=== PATIENT | female | born 1955 | race Caucasian/White ===

== ENCOUNTER 2023-06-04 11:20 | Outpatient (OUT) | payer MEDICARE, OTHER, SELFPAY ==
--- NOTE | 2023-06-04 11:22 | MM_ITS ---
Patient: GINNY CESPEDES Exam Date: 06/04/2023 : 1955 Gender:F Ordering : DR HONORIO COLON Admission #: [id number] Family : Order #: [id number] CLICK HERE TO VIEW EXAM RADIOLOGY REPORT PROCEDURE: MM TOMOSYNTHESIS SCREENING BI COMPARISON: [facility] MAMM DIAGNOSTIC 3D TAMMY CAD, 05/29/2022. MG MAMM DIAGNOSTIC 3D TAMMY CAD, 05/26/2021. MG MAMM RT DIAG W CAD, 05/20/2020. MG MAMM SCREEN TAMMY W CAD, 10/09/2017. INDICATIONS: Screening Calculator Name NCI Breast Cancer Risk Assessment Tool 5 Year Breast Cancer Risk n/a% Lifetime Breast Cancer Risk n/a% Personal Breast Cancer Yes, DCIS right breast with radiation 2019 Personal Ovarian Cancer No Treatments Radiation Family Cancers Mother with breast cancer at age 59; Sister with colon cancer at age ~54. LOCATION: [facility] BREAST COMPOSITION: Extremely dense, which lowers the sensitivity of mammography. FINDINGS: DIAGNOSTIC CATEGORY 2--BENIGN FINDING: RIGHT BREAST: No significant suspicious finding. Stable biopsy marker clip posterior upper inner quadrant. No significant change has occurred. LEFT BREAST: No significant suspicious finding. No significant change has occurred. RECOMMENDATIONS: ROUTINE MAMMOGRAM AND CLINICAL EVALUATION IN 12 MONTHS. PLEASE NOTE: A NORMAL MAMMOGRAM DOES NOT EXCLUDE THE POSSIBILITY OF BREAST CANCER. A CLINICALLY SUSPICIOUS PALPABLE LUMP SHOULD BE BIOPSIED. Dictated by: Bill Godoy M.D. on 06/06/2023 at 08:22 Approved by: Bill Godoy M.D. on 06/06/2023 at 08:25
== END 2023-06-04 11:21 | disposition home or self-care (01) ==
LOC: MAMMO 11:20
PROVIDERS: PCP Physician Assistant; Visit Provider Physician Assistant
DX: Z12.31 Encounter for screening mammogram for malignant neoplasm of breast (principal); Z80.3 Family history of malignant neoplasm of breast; Z80.0 Family history of malignant neoplasm of digestive organs
CPT/HCPCS: 77063; 77067

== ENCOUNTER 2023-08-22 10:04 | Outpatient (REF) | payer MEDICARE, OTHER, SELFPAY ==
[2023-08-22 11:13] LABS: Adenovirus NOT DETECTED (NOT DETECTE); Bordetella parapertussis NOT DETECTED (NOT DETECTE); Coronavirus 229E NOT DETECTED (NOT DETECTE); Coronavirus HKU1 NOT DETECTED (NOT DETECTE); Coronavirus NL63 NOT DETECTED (NOT DETECTE); Coronavirus OC43 NOT DETECTED (NOT DETECTE); Human Metapneumovirus NOT DETECTED (NOT DETECTE); Human Rhinovirus/Enterovirus NOT DETECTED (NOT DETECTE); Influenza A NOT DETECTED (NOT DETECTE); Influenza B NOT DETECTED (NOT DETECTE); Mycoplasma pneumoniae NOT DETECTED (NOT DETECTE); Parainfluenza Virus 1 NOT DETECTED (NOT DETECTE); Parainfluenza Virus 2 NOT DETECTED (NOT DETECTE); Parainfluenza Virus 3 NOT DETECTED (NOT DETECTE); Parainfluenza Virus 4 NOT DETECTED (NOT DETECTE); Respiratory Syncytial Virus NOT DETECTED (NOT DETECTE); SARS-CoV-2 NOT DETECTED (NOT DETECTE)
== END 2023-08-22 10:05 | disposition home or self-care (01) ==
LOC: LAB 10:04
PROVIDERS: PCP Physician Assistant; Visit Provider Nurse Practitioner Family
DX: R05.9 Cough, unspecified (principal)
CPT/HCPCS: 0202U

== ENCOUNTER 2023-12-02 09:53 | Outpatient (OUT) | payer MEDICARE, OTHER, SELFPAY ==
--- NOTE | 2023-12-02 10:01 | CT_ITS ---
[address] [address] Patient Name: GINNY CESPEDES MRN: [id number] date: 1955 Sex: F Assigned Patient Location: CT Current Patient Location: CT Accession/Order Number: [id number] Exam Date: 12/02/2023 10:06 Report Date: 12/02/2023 10:56 At the request of: HONORIO ROJAS Procedure: CT lung screening low-dose EXAMINATION: CT lung screening low-dose HISTORY: Tobacco Dependance F17.200 COMPARISON: CT lung cancer screening 11/30/2022 TECHNIQUE: Axial, Coronal, and Sagittal images were created without the administration of IV contrast material. Dose reduction techniques were achieved by using automated exposure control and/or adjustment of mA and/or kV according to patient size and/or use of iterative reconstruction technique. FINDINGS: LUNGS: Stable appearance of the few small calcified and noncalcified nodules within the right lung and adjacent the pleural surface of the lateral left midlung. No new nodules or appreciable change. PLEURA: No mass, effusion, or pneumothorax. VASCULATURE: No abnormality. AKHIL: Calcified lymph nodes suggestive of chronic granulomatous disease. MEDIASTINUM: Calcified lymph nodes. CARDIAC: No enlargement, pericardial thickening, or pericardial effusion. AORTA: No aneurysm or dissection. CHEST WALL: Stable prominent thyroid gland. No axillary lymphadenopathy. BONES: No bone lesion or fracture. LIMITED ABDOMEN: No suspicious findings. Limited images of the upper abdomen. OTHER: Negative. CT/CT lung screening low-dose IMPRESSION: 1. Lung-RADS 2- Benign Appearance or Behavior. Nodules with a very low likelihood of becoming a clinically active cancer due to size or lack of growth. Follow-up CT Chest in 1 year. Electronically authenticated by: CHAPARRO ECKERT Date: 12/02/2023 10:56
--- NOTE | 2023-12-02 10:02 | XR_ITS ---
[address] [address] Patient Name: GINNY CESPEDES MRN: [id number] date: 1955 Sex: F Assigned Patient Location: CT Current Patient Location: CT Accession/Order Number: [id number] Exam Date: 12/02/2023 10:10 Report Date: 12/02/2023 10:50 At the request of: HONORIO ROJAS Procedure: XR DEXA axial skeleton EXAMINATION: XR DEXA axial skeleton HISTORY: Estrogen Deficiency, E 28.39 COMPARISON: DEXA bone densitometry 10/24/2021 TECHNIQUE: Dual-energy X-ray absorptiometry (DXA) was performed. FINDINGS: FOREARM ANALYSIS: Average bone mineral density is 0.553 g/cm2. T-score (standard deviation relative to young adult mean): -2.3 . +1.4% change since prior study. HIP ANALYSIS: Lowest bone mineral density is within the left femoral neck, 0.701 g/cm2. T-score (standard deviation relative to young adult mean): -2.4 . +0.1% change since prior study. XR/XR DEXA axial skeleton IMPRESSION: [employer] Classification: Osteopenia - Moderate Fracture Risk Electronically authenticated by: CHAPARRO ECKERT Date: 12/02/2023 10:50
--- OUTSIDE RECORDS SUMMARY | 2023-12-02 10:06 | XMS_ITS | CCD ---
Author Organization [facility] Care Team Providers Care Transportation [employer]istics Internship Name Role Phone NURYS BOGGS Primary Care Physician KIMBERLEY HAMEED Admitting Unavailable SALAM, KIMBERLEY Attending Unavailable AMBROSE, DR NUNO Primary Care Unavailable WEST, DR ALEXANDRO Riddle Consulting Unavailable SALAM, KIMBERLEY Consulting Unavailable AMBROSE, DR NUNO Admitting Unavailable AMBROSE, DR NUNO Attending Unavailable AMBROSE, DR NUNO Primary Care Unavailable AMBROSE, DR NUNO Consulting Unavailable Zieber, Chaparro Consulting Unavailable HEMMER, DR HONORIO Shaikh Admitting Unavailable HEMMER, DR HONORIO Shaikh Attending Unavailable AMBROSE, DR NUNO Primary Care Unavailable WEST, DR ALEXANDRO Riddle Consulting Unavailable HEMMER, DR HONORIO Shaikh Consulting Unavailable HEMMER, DR HONORIO Shaikh Admitting Unavailable HEMMER, DR HONORIO Shaikh Attending Unavailable AMBROSE, DR NUNO Primary Care Unavailable HEMMER, DR HONORIO Shaikh Consulting Unavailable HEMMER, DR HONORIO Shaikh Admitting Unavailable HEMMER, DR HONORIO Shaikh Attending Unavailable AMBROSE, DR NUNO Primary Care Unavailable ZiebChaparro branch Consulting Unavailable HEMMER, DR HONORIO Shaikh Consulting Unavailable Yvonne Mcghee Unavailable Nurys Boggs Primary Care Provider Nurys Boggs Unavailable [phone] Nurys Boggs MD Primary Care Provider Nurys Boggs MD Unavailable [phone] NURYS BOGGS Attending Unavailable HEMMER, HONORIO Shaikh Attending Unavailable HEMMER, HONORIO Shaikh Attending Unavailable Nurys Boggs Primary Care Unavailable Beverley Ngo Attending Unavailable Beverley Ngo Admitting Unavailable Rosa Shearer Attending Unavailable Rosa Shearer Attending Unavailable Olu, Rosa A Attending Unavailable Olu, Rosa A Attending Unavailable Olu, Rosa A Attending Unavailable Olu, Rosa A Attending Unavailable SALAM, Chu Referring Unavailable SALAM, Chu Attending Unavailable SALAM, Chu Admitting Unavailable Olu, Rosa A Admitting Unavailable Olu, Rosa A Attending Unavailable Olu, Rosa A Admitting Unavailable Olu, Rosa A Attending Unavailable Jessie, Rimma J Admitting Unavailable Jessie, Rimma J Attending Unavailable Olu, Rosa A Attending Unavailable Olu, Rosa A Admitting Unavailable Olu, Rsoa A Referring Unavailable Olu, Rosa A Attending Unavailable Olu, Rosa A Attending Unavailable Olu, Rosa A Attending Unavailable AMBROSE, RUGEN MABALAY Primary Care Unavailable ABHYANKAR, MAIKEL Attending Unavailable OLU, ROSA Referring Unavailable AMBROSE, RUGEN MABALAY Primary Care Unavailable ABHYANKAR, MAIKEL Referring Unavailable AMBROSE, RUGEN MABALAY Primary Care Unavailable ABHYANKAR, MAIKEL Referring Unavailable AMBROSE, RUGEN MABALAY Primary Care Unavailable ABHYANKAR, MAIKEL Attending Unavailable ABHYANKAR, MAIKEL Referring Unavailable AMBROSE, RUGEN MABALAY Primary Care Unavailable AMBROSE, RUGEN MABALAY Primary Care Unavailable ABHYANKAR, MAIKEL Referring Unavailable AMBROSE, RUGEN MABALAY Primary Care Unavailable ABHYANKAR, MAIKEL Attending Unavailable AMBROSE, RUGEN MABALAY Primary Care Unavailable ABHYANKAR, MAIKEL Referring Unavailable AMBROSE, RUGEN MABALAY Primary Care Unavailable AMBROSE, RUGEN MABALAY Primary Care Unavailable ABHYANKAR, MAIKEL Referring Unavailable AMBROSE, RUGEN MABALAY Primary Care Unavailable AMBROSE, RUGEN MABALAY Primary Care Unavailable AMBROSE, RUGEN MABALAY Primary Care Unavailable AMBROSE, RUGEN MABALAY Primary Care Unavailable ABHYANKAR, MAIKEL Referring Unavailable AMBROSE, RUGEN MABALAY Primary Care Unavailable ABHYANKAR, MAIKEL Referring Unavailable AMBROSE, RUGEN MABALAY Primary Care Unavailable AMBROSE, RUGEN MABALAY Primary Care Unavailable ABHYANKAR, MAIKEL Referring Unavailable JYOTI SHELTON Attending Unavailabl e Allergies Allergy Classification Reported Allergen(s) Allergy Type Date of Onset Reaction(s) Facility (19 sources) Barium Sulfate; Translations: [barium sulfate] Drug Allergy Nausea and vomiting (disorder) [facility] (20 sources) buPROPion; Translations: [bupropion] Drug Allergy 5 Shortness of Breath [facility] (3 sources) buPROPion; Translations: [Wellbutrin] Drug Allergy 5 Unknown [facility] (1 source) buPROPion Drug Allergy 5 [facility] (15 sources) buPROPion; Translations: [BUPROPION HCL (SMOKING DETER)] Drug Allergy 9 Shortness of Breath [facility] (1 source) buPROPion Drug Allergy 3 [facility] Medications Current Medications Medication Drug Class(es) Dates Sig (Normalized) Sig (Original) amylase 649733 unt / lipase 68338 unt / protease 24254 unt delayed release oral capsule (12 sources) Start: 02-22-2023 End: 05-23-2023 take 1 capsule by mouth three times daily at mealtime Creon 24,000 units oral delayed release capsule = 1 cap(s), Oral, TID, with each meal., X 90 day(s), # 270 cap(s), Refills(s) 0, Pharmacy: [facility]/pharmacy #[id number], 152, cm, 02/22/23 12:18:00 EDT, Height/Length Dosing, 53.9, kg, 02/22/23 12:18:00 EDT, Weight Dosing Start Date: 02/22/23 Stop Date: 05/23/23 Status: Ordered Start: 11-22-2022 Creon Refills( s) 0 Start Date: 11/22/22 Status: Ordered Ascorbic Acid (18 sources) Vitamin C Start: 04-25-2021 Vitamin C Ye y, Refills(s) 0 Start Date: 04/25/21 Status: Ordered Align (5 sources) Start: 06-26-2023 Align Refills( s) 0 Start Date: 06/26/23 Status: Ordered Start: 03-26-2023 End: 06-24-2023 take 1 capsule by mouth once daily Align 4 mg oral capsule 4 mg = 1 cap(s), Oral, Daily, X 90 day(s), # 90 cap(s), Refills(s) 0, Pharmacy: [facility]/pharmacy #[id number], 152, cm, 03/26/23 12:48:00 EDT, Height/Length Dosing, 53.4, kg, 03/26/23 12:48:00 EDT, Weight Dosing Start Date: 03/26/23 Stop Date: 06/24/23 Status: Ordered Bruce/Mag 2001 Plus Vitamins C and D (18 sources) Start: 08-16-2020 Bruce/Mag 2000 P isidoro Vitamins C and D Start Date: 08/16/20 Status: Ordered Calcium (1 source) Phosphate Binder, Calcium Calcium Active Fiber Tab (4 sources) Start: 06-26-2023 Fiber Tabs Refills(s) 0 Start Date: 06/26/23 Status: Ordered cephalexin 500 mg oral capsule (2 sources) Cephalosporin Antibacterial Start: 01-25-2023 take 1 capsule by mouth every eight hours Cephalexin 500 MG 1 capsule Orally every 8 hrs for 7 days Jan, Active take [address] [facility] every twelve hours Cephalexin 500 MG 1 capsule Orally every 12 hrs Not-Taking chlordiazePOXIDE hydrochloride 5 mg / clidinium bromide 2.5 mg oral capsule (11 sources) Anticholinergic, Benzodiazepine Start: 01-25-2022 Librax 5 mg-2.5 mg Cap 2 cap(s), Oral, TIDAC, 60 cap(s), Refill(s) 3, [facility]/pharmacy #[id number], 152, cm, 01/25/22 13:43:00 EDT, Height/Length Dosing, 54, kg, 01/25/22 13:43:00 EDT, Weight Dosing Start Date: 01/25/22 Status: Ordered cholestyramine resin 4000 mg powder for oral suspension (14 sources) Bile Acid Sequestrant Start: 10-11-2023 cholesty ramine 4 g/9 g Oral Pwdr Refill(s) 0 Start Date: 10/11/23 Status: Ordered Start: 06-26-2023 End: 09-24-2023 take 4 g by mouth once daily Questran 4 g/9 g oral pow gauri 4 gm, Oral, Daily, dissolve in water or juice, X 90 day(s), # 60 EA, Refills(s) 0, [id number] 152, cm, 06/26/23 12:45:00 EDT, Height/Length Dosing, 53.3, kg, 06/26/23 12:45:00 EDT, Weight Dosing Start Date: 06/26/23 Stop Date: 09/24/23 Status: Ordered Start: 06-19-2022 End: 12-16-2022 Questran 4 g/9 g oral powder 1/4 packet, Oral, Daily, X 90 day(s), # 60 EA, Refills(s) 1, [id number], 152, cm, 06/19/22 12:56:00 EDT, Height/Length Dosing, 53.5, kg, 06/19/22 12:56:00 EDT, Weight Dosing Start Date: 06/19/22 Stop Date: 12/16/22 Status: Ordered Start: 04-25-2021 Questran 4 g/9 g oral powder = 1 packet(s), Oral, Daily, # 30 EA, Refills(s) 11, [id number], 152, cm, 04/25/21 8:50:00 EDT, Height/Length Dosing, 52, kg, 04/25/21 8:50:00 EDT, Weight Dosing Start Date: 04/25/21 Status: Ordered Start: 04-25-2021 Questran 4 g/9 g oral powder = 1 packet(s), Oral, Daily, # 30 EA, Refills(s) 11, [id number], 152, cm, 04/25/21 8:50:00 EDT, Height/Length Dosing, 52, kg, 04/25/21 8:50:00 EDT, Weight Dosing Start Date: 04/25/21 Status: Ordered ciprofloxacin 500 mg oral tablet (1 source) Quinolone Antimicrobial Start: 04-17-2022 End: 04-27-2022 take 1 tablet by mouth twice daily Cipro 500 mg Tab 500 mg = 1 tab(s), Oral, BID, X 10 day(s), # 20 tab(s), Refills(s) 0, [id number], 152, cm, 04/17/22 12:23:00 EDT, Height/Length Dosing, 52.9, kg, 04/17/22 12:23:00 EDT, Weight Dosing Start Date: 04/17/22 Stop Date: 04/27/22 Status: Ordered dicyclomine hydrochloride 10 mg oral capsule (20 sources) Anticholinergic Start: 01-25-2022 End: 10-05-2023 take 1 mg by mouth four times daily dicyclomine 10 mg Cap mg cap(s), Oral, QID, Refills(s) 0 Start Date: 01/25/22 Status: Ordered Start: 03-13-2019 take 1 tablet by alpa th every eight hours Dicyclomine HCl 20 MG 1 tablet Orally THREE TIMES A DAY for 30 day(s) Feb, Not-Taking Extra Strength Tylenol Aches and Strains (18 sources) Start: 11-25-2018 take 1 tablet by mouth every six hours Extra Strength Tylenol Aches and Strains 1 tablet, Oral, q6hr Pain, Refill(s) 0 Start Date: 11/25/18 Status: Ordered 12 hr hyoscyamine sulfate 0.375 mg extended release oral tablet (7 sources) Start: 04-21-2019 take 1 mg by mouth every twelve hours hyoscyamine 0.375 mg ER Tab mg tab(s), Oral, q12hr, Refills(s) 0 Start Date: 01/25/22 Status: Ordered Multivitamin preparation (1 source) Multivitamin Act tino Patient Specific Meds (5 sources) Start: 03-26-2023 Patient Specif ic Meds OTC- Pancreatic digestive enzymes. Creon was too expensive. Start Date: 03/26/23 Status: Ordered sertraline 50 mg oral tablet (20 sources) Serotonin Reuptake Inhibitor Start: 11-17-2018 take 1 tablet by mouth at bedtime Zoloft 50 mg Tab 50 mg = 1 tab(s), Oral, Bedtime, Refills(s) 0, Depression Start Date: 11/17/18 Status: Ordered Comment on above: Take 50 mg by mouth once daily. Vitamin D3 (18 sources) Start: 04-25-2021 Vitamin D3 Refills(s) 0 Start Date: 04/25/21 Status: Ordered Completed/Discontinued Medications Medication Drug Class(es) Dates Sig (Normalized) Sig (Original) Calcium Carbonate (14 sources) calcium carbonat e (CALCIUM 500 ORAL) Take by mouth. 0 Active Comment on above: Take by mouth. cholecalciferol 0.025 mg oral capsule (14 sources) Vitamin D take 1 capsule by mouth once daily Cholecalciferol, Vitamin D3, (VITAMIN D) 1,000 unit cap Take 1,000 Units by mouth once daily. 0 Active Comment on above: Take 1,000 Units by mouth once daily. enzymes,digestive (DIGESTIVE ENZYMES ORAL) (14 sources) enzymes,digestiv e (DIGESTIVE ENZYMES ORAL) Take by mouth. 0 Active Comment on above: Take by mouth. levothyroxine sodium 0.05 mg oral tablet (20 sources) l-Thyroxine Start: 02-07-2023 levothyroxine (SYNTHROID) 50 mcg tablet Take 50 mcg by mouth once daily. 75mcg 2 days a week 0 02/07/2023 Active Start: 10-10-2022 take 1 tablet by alpa th once daily in the morning levothyroxine 50 mcg (0.05 mg) Tab TAKE 1 TABLET BY MOUTH ONCE EVERY MORNING ON AN EMPTY STOMACH Start Date: 10/10/22 Status: Ordered Levothyroxine So dium Active Comment on above: take 1 tablet by alpa th every day in the morning on empty stomach Take 50 mcg by mouth once daily. 75mcg 2 days a week loperamide hydrochloride 2 mg oral capsule (15 sources) Opioid Agonist Start: 04-04-2019 loperamide (IMODIUM) 2 mg cap(s) every other day. 2 04/04/2019 Active Start: 04-03-2019 take 1 tablet by alpa th once in the morning Loperamide HCl 2 MG 1 TAB Orally Q AM for 30 days Mar, Not-Taking Comment on above: every other day. meloxicam 15 mg oral tablet (1 source) Nonsteroidal Anti-inflammatory Drug Start: 1 take 1 tablet by mouth every twenty-four hours Meloxicam 15 MG 1 tablet Orally Once a day for 30 day(s) Jan, Not-Taking oxyCODONE hydrochloride 10 mg oral tablet (1 source) Opioid Agonist Start: 1 take 1 tablet by mouth every six hours oxyCODONE HCl 10 MG 1 tablet as needed Orally every 6 hrs for 14 days Nov, Not-Taking Triamcinolone (2 sources) Corticosteroid Start: KENALOG - 10 mg Mar, 40 mg Start: 01-24-2016 Kenalog -40 mg December, 40 mg Problems Active Problems Problem Classification Problem Date Documented Da te Episodic/Chronic Abdominal pain (20 sources) Lower abdominal pain; Translations: [Lower abdominal pain, unspecified] Onset: 01-24-2022 Episodic Administrative/social admission (18 sources) Seen by pain management service 11-25-2018 Episodic Comment on above: for back for back Anxiety disorders (18 sources) Anxiety 11-17-2018 Chronic Cancer of breast (20 sources) Carcinoma of breast ; Translations: [Malignant tumor of breast ] Onset: 06-11-2019 11-17-2018 Chronic Comment on above: right right Cardiac dysrhythmias (1 source) Tachycardia; Translations: [Tachycardia, unspecified] 07-31-2023 Episodic Chronic obstructive pulmonary disease and bronchiectasis (2 sources) Emphysematous bronchitis; Translations: [Chronic obstructive pulmonary disease, unspecified] Chronic Conditions associated with dizziness or vertigo (1 source) Dizziness and giddiness; Translations: [Dizziness and giddiness] Onset: 07-31-2023 Episodic Deficiency and other anemia (20 sources) Anemia; Translations: [Anemia, unspecified] Onset: 03-13-2023 03-13-2023 Episodic Deficiency and other anemia (20 sources) 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 B>12< deficiency; Translations: [Other megaloblastic anemias, not elsewhere classified] Onset: 03-13-2023 03-13-2023 Episodic Diverticulosis and diverticulitis (19 sources) Diverticular disease; Translations: [Diverticulosis of intestine, part unspecified, without perforation or abscess without bleeding] 05-25-2021 Chronic Genitourinary symptoms and ill-defined conditions (1 source) Microscopic hematuria; Translations: [Other microscopic hematuria] Episodic Hemorrhoids (18 sources) Internal hemorrhoids 05-25-2021 Episodic Intestinal infection (18 sources) Small bowel bacterial overgrowth syndrome 01-25-2022 Episodic Mood disorders (18 sources) Depressive disorder 11-17-2018 Chronic Nausea and vomiting (1 source) Nausea; Translations: [Nausea] Episodic Noninfectious gastroenteritis (15 sources) Noninfectious enteritis; Translations: [Noninfective gastroenteritis and colitis, unspecified] Onset: 06-19-2022 Episodic Nutritional deficiencies (13 sources) Vitamin B deficiency; Translations: [Deficiency of other specified B group vitamins] Onset: 11-22-2022 Episodic Osteoarthritis (18 sources) Arthritis 08-16-2020 Chronic Other and unspecified benign neoplasm (18 sources) Polyp of colon 05-25-2021 Episodic Other and unspecified benign neoplasm (20 sources) History of polyp of colon; Translations: [Personal history of colonic polyps] Onset: 06-19-2022 Episodic Other bone disease and musculoskeletal deformities (1 source) Arrest of bone development AND/OR growth; Translations: [Other disorders of bone development and growth, unspecified site] Episodic Other bone disease and musculoskeletal deformities (1 source) Osteopenia; Translations: [Other specified disorders of bone density and structure, multiple sites] Episodic Other gastrointestinal disorders (20 sources) Irritable bowel syndrome with diarrhea; Translations: [Irritable bowel syndrome with diarrhea] Onset: 01-25-2022 Chronic Other gastrointestinal disorders (7 sources) Intestinal malabsorption; Translations: [Other intestinal malabsorption] Onset: 01-25-2022 Chronic Other gastrointestinal disorders (1 source) Irritable bowel syndrome; Translations: [Irritable bowel syndrome without diarrhea] Chronic Other gastrointestinal disorders (2 sources) Disorder of intestine; Translations: [Other specified diseases of intestine] Onset: 01-25-2022 Episodic Other gastrointestinal disorders (18 sources) Non-infective diarrhea 05-25-2021 Episodic Other gastrointestinal disorders (1 source) Diarrhea; Translations: [Diarrhea, unspecified] Episodic Other gastrointestinal disorders (1 source) Urgent desire for stool; Translations: [Fecal urgency] Episodic Other gastrointestinal disorders (1 source) Abdominal bloating; Translations: [Abdominal distension (gaseous)] Episodic Other gastrointestinal disorders (2 sources) Abnormal feces; Translations: [Other fecal abnormalities] Onset: 02-22-2023 Episodic Other gastrointestinal disorders (7 sources) Loose stool 02-22-2023 Episodic Other liver diseases (20 sources) Steatosis of liver; Translations: [Fatty (change of) liver, not elsewhere classified] Onset: 04-13-2022 02-14-2022 Chronic Other liver diseases (1 source) Decreased lipoprotein; Translations: [Abnormal levels of other serum enzymes] Episodic Other lower respiratory disease (1 source) Multiple nodules of lung; Translations: [Other nonspecific abnormal finding of lung field] Episodic Other nervous system disorders (1 source) Chronic pain; Translations: [Other chronic pain] Chronic Other screening for suspected conditions (not mental disorders or infectious disease) (20 sources) Imaging of abdomen abnormal; Translations: [Abnormal findings on diagnostic imaging of other abdominal regions, including retroperitoneum] Onset: 01-25-2022 Episodic Residual codes; unclassified (18 sources) Family history of cancer of colon 05-25-2021 Episodic Residual codes; unclassified (7 sources) Family history of malignant neoplasm of digestive organ; Translations: [Family history of malignant neoplasm of digestive organs] Onset: 06-19-2022 Episodic Residual codes; unclassified (1 source) Postmenopausal state; Translations: [Asymptomatic menopausal state] Episodic Skin and subcutaneous tissue infections (1 source) Cellulitis of right finger Episodic Spondylosis; intervertebral disc disorders; other back problems (4 sources) Inflammation of sacroiliac joint; Translations: [Sacroiliitis, not elsewhere classified] Chronic Substance-related disorders (20 sources) Smoker; Translations: [Nicotine dependence, cigarettes, uncomplicated] Onset: 11-30-2022 08-16-2020 Chronic Comment on above: Added secondary to d ocumentation in Social History. Added secondary to d ocumentation in Social History. Thyroid disorders (9 sources) Nontoxic goiter, unspecified; Translations: [Hypothyroidism, unspecified] Onset: 07-14-2022 Chronic Unclassified (18 sources) Asymptomatic microscopic hematuria 08-16-2020 Unclassified (17 sources) Finding of sensation of abdomen 02-14-2022 Past or Other Problems Problem Classification Problem Date Documented Da te Episodic/Chronic Other skin disorders (1 source) Nonscarring hair loss, unspecified; Translations: [NONSCARRING HAIR LOSS UNSPECIFIED] Onset: 07-18-2022 Episodic Pancreatic disorders (not diabetes) (20 sources) Disorder of pancreas; Translations: [Other specified diseases of pancreas] Onset: 10-10-2022 Episodic Results Test Name Value Interpretation Reference Range Baldomero ABBOTTon 11-07-2023 CNNURSE Nurse Visit (HEMMAMI) ---- COYIVONNE A ([id number]) 1955 F Date Time Provider Department 11/07/23 2:30 PM [facility] NURSE ERVIN VILLASENOR During your visit today, we recorded the following information about you: Temperature Pulse Respiration Blood pressure 97.1 degrees 79/minute 18/minute 119/90 Pepe Yadav 11/07/2023 2:12 PM Signed Patient Identification confirmed: yes. Injection given and documented on OCT per provider order. Pepe Yadav Referring Provider: MAIKEL LUNSFORD [[id number]] Allergies As of Date: 11/07/2023 Noted Allergy Reaction BUPROPION 12/22/2004 12 - Shortness of Breath ZYBAN (BUPROPION HCL (SMOKING DET*11/07/2018 12 - Shortness of Breath Date Reviewed: 09/11/2023 Reviewed by: Desirae Sargent MA - Fully Assessed Reason for Visit: Anemia [6] Primary Visit Diagnosis:Anemia, unspecified type [D64.9] Other Visit Diagnosis:Megalobla stic anemia due to vitamin B12 deficiency [D53.1] Order(s):[] cyanocobalamin 1,000 mcg injectionDisp: Rfl: Prescriptions as of 11/07/2023 - levothyroxine (SYNTHROID) 50 mcg tablet Take 50 mcg by mouth once daily. 75mcg 2 days a week - enzymes,digestive (DIGESTIVE ENZYMES ORAL) Take by mouth. - loperamide (IMODIUM) 2 mg cap(s) every other day. - sertraline (ZOLOFT) 50 mg tablet Take 50 mg by mouth once daily. - calcium carbonate (CALCIUM 500 ORAL) Take by mouth. - Cholecalciferol, Vitamin D3, (VITAMIN D) 1,000 unit cap Take 1,000 Units by mouth once daily. 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 Injection given and documented on OCT per provider order. Pepe Yadav Prescriptions ordered this encounter Disp Refills Start End CYANOCOBALAMIN (VIT B-12) 1,000 MCG/* 11/07/2023 11/07/2023 Route: INTRAMUSCULA Encounter Status:Closed by MARY PEPE on 11/07/23 Normal [facility] Ambulatory Visit Summaryon 0 10-11-2023 Ambulatory Visit Summary IVONNE CESPEDES :1955 Visit Date:10/11/2023 Ambulatory Visit Instructions Your Diagnosis Bile salt-induced diarrhea Abdominal cramping Irritable bowel syndrome with diarrhea Fatty liver Vitamin B12 deficiency History of colon polyps Family history of colon cancer Your Care Team Attending Physician - Rosa Shearer CNP Primary Care Physician - NURYS BOGGS MD This Is Your Medications List Contact prescribing physician if questions or concerns Patient Specific Meds acetaminophen-chlor zoxazone (Extra Strength Tylenol Aches and Strains) ascorbic acid (Vitamin C) bifidobacterium infantis (Align) cholecalciferol (Vitamin D3) cholestyramine (cholestyramine 4 g/9 g Oral Pwdr) dicyclomine (dicyclomine 10 mg Cap) levothyroxine (levothyroxine 50 mcg (0.05 mg) Tab) multivitamin with minerals (Bruce/Mag 2001 Plus Vitamins C and D) pancrelipase (Creon) polycarbophil (Fiber Tabs) sertraline (Zoloft 50 mg Tab) Procedures Performed Colonoscopy (05/16/2021), BREAST BIOPSY (11/25/2018), Tubal ligation (1984), Biopsy of breast, Hysterectomy, Laparoscopic cholecystectomy. Discharge Vitals Temperature (Temporal Artery) 36.1 ?C Heart Rate (Peripheral) 79 Blood Pressure 132/87 Height 152 cm Height 60 in Weight 53.3 kg Weight 117.26 lb BMI 23.07 What to do next Scheduled Follow-Up Appointments Saturday 12:00 PM EDT With: Rosa Shearer CNP Where: [facility] Normal [facility] Gastroenterology Office/Clin ic Noteon 10-11-2023 Gastroenterology Office/Clinic Note Chief Complaint Cramping HPI Staff This is a 68 year old female who presents today for a follow-up from 07/26/23 office visit. History of Present Illness Patient is a 68-year-old female who presents for follow-up. Patient was previously evaluated 07/26/2023 and has history of low fecal pancreatic elastase testing 05/2022 that was low at 88. Patient also with history of fatty liver disease and IBS with diarrhea. Patient was previously evaluated and treated by Dr. Hameed also for pancreatic insufficiency with low fecal pancreatic elastase. Previous stool testing for fecal pancreatic elastase was normal 07/2023. Previous labs 10/2022 revealed normal H&H, normal BUN, normal creatinine, normal liver enzymes and normal vitamin A and E. B12 level was less than 50 10/2022. Repeat B12 level 01/2023 had improved at 144- was previously referred to hematology for possible IM B12 injections. Previous ultrasound of pelvis 09/2022 was negative. Previous colonoscopy in 2015 revealed suboptimal prep, diverticulosis, transverse colon polyp that pathology revealed was inflammatory reactive polyp and was to repeat colonoscopy in 1 year. Repeat colonoscopy 04/2021 revealed normal terminal ileum, diverticulosis, hemorrhoids, hyperplastic polyp removed from descending colon and was recommended to have repeat colonoscopy in 2025. Patient had previous CT 06/2021 that showed enlarged right retrocrural lymph node- to follow-up with PCP regarding, and no evidence of diverticulitis. Patient had repeat CT 01/2022 at [facility] that showed hepatomegaly and hepatic steatosis. Patient with family history colon cancer?patient's sister. Patient had previous FibroScan 03/2022 that revealed F0?F1 fibrosis, no steatosis. Previous FibroScan 02/2023 revealed mild steatosis, F0?F1 fibrosis. Patient reported during most recent visit with me that she was doing better and was taking 1/2 packet of Questran twice daily. She also reported taking Benefiber 1 teaspoon daily. She indicated with this regimen she was having formed bowel movements daily currently. She also reported her fecal urgency had improved as well as her abdominal cramping. During today's visit, patient reports she is no longer having fecal urgency. Is having primarily formed with Questran 1/2 packet BID. Has occasional loose stools consistency of mashed potatoes. Is having improvement in lower abdominal cramping. Abdominal cramping occurs prior to having a BM and improves after having a BM. Takes probiotics daily. Denies use of Bentyl and can not recall if this helped her abdominal cramping previously. Has tried IBguard without relief of abdominal cramping. Denies black/bloody stools, nausea/vomiting, fevers/chills, and denies having any other GI complaints. Review of Systems PHQ Score Initial Depression Screen Score: 0 SCORE ROS - Provider Constitutional: no fever, no chills. Skin: no Jaundice. ENMT: Denies dysphagia and heartburn. Respiratory: no shortness of breath. Cardiovascular: no chest pain. Gastrointestinal: no nausea, no vomiting, no diarrhea, no GI bleeding. Physical Exam Vitals & Measurements T: 36.1 ?C(Temporal Artery) HR: 79(Peripheral) BP: 132/87 HT: 60 in HT: 152 cm WT: 53.3 kg WT: 117.26 lb BMI: 23.07 General: Well developed, well nourished, in no acute distress Head: Normocephalic/atrau matic Lungs: Normal respiratory effort and clear to auscultation Cardio: Regular rate and rhythm, normal S1 and S2, no murmur, no rub Abdomen: Soft, non-distended, non-tender. Normoactive bowel sounds present in all 4 abdominal quadrants, bilaterally. Mental Status: Alert and oriented x3. Normal mood and affect Assessment/Plan 1. 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 Colonoscopy 04/2021 revealed normal terminal ileum, diverticulosis, hemorrhoids, hyperplastic polyp removed from descending colon and was recommended to have repeat colonoscopy in 2025. Educated to restart Benefiber fiber supplementation daily, continue Questran 1/2 packet BID. 2. Abdominal cramping (R10.9: Unspecified abdominal pain) Improved. Likely related to hx. of IBS with diarrhea. Educated to restart Benefiber fiber supplementation daily, continue probiotics daily. Discussed trying Levsin for abdominal cramping associated with IBS- would like to try fiber supplementation first. 3. Irritable bowel syndrome with diarrhea (K58.0: Irritable bowel syndrome with diarrhea) Improved. Likely related to hx. of IBS with diarrhea. Educated regarding use of fiber supplementation daily, probiotics daily, and use of IBguard PRN for abdominal cramping associated with IBS. 4. Fatty liver (K76.0: Fatty (change of) liver, not elsewhere classified) CT 01/2022 at [facility] showed hepatomegaly and hepatic steatosis. Previous FibroScan 03/2022 revealed F0?F1 fibrosis, no steatosis. Previous FibroScan 02/2023 revealed mild steatosis, F0?F1 fibrosis. (more content not included)... Normal [facility] Comment on above: Result Comment: Elec tronically Signed By: Rosa Shearer CNP\.nikhil\Date and Time Signed: 10/11/23 13:38 EST Patient Educationon 10-11-19 24 Patient Education Mental and Behavioral Health Fatty Liver Disease The liver converts food into energy, removes toxic material from the blood, makes important proteins, and absorbs necessary vitamins from food. Fatty liver disease occurs when too much fat has built up in your liver cells. Fatty liver disease is also called hepatic steatosis. In many cases, fatty liver disease does not cause symptoms or problems. It is often diagnosed when tests are being done for other reasons. However, over time, fatty liver can cause inflammation that may lead to more serious liver problems, such as scarring of the liver (cirrhosis) and liver failure. Fatty liver is associated with insulin resistance, increased body fat, high blood pressure (hypertension), and high cholesterol. These are features of metabolic syndrome and increase your risk for stroke, diabetes, and heart disease. What are the causes? This condition may be caused by components of metabolic syndrome: ? Obesity. ? Insulin resistance. ? High cholesterol. Other causes: ? Alcohol abuse. ? Poor nutrition. ? Kinsman syndrome. ? . ? Certain drugs. ? Poisons. ? Some viral infections. What increases the risk? You are more likely to develop this condition if you: ? Abuse alcohol. ? Are overweight. ? Have diabetes. ? Have hepatitis. ? Have a high triglyceride level. ? Are . What are the signs or symptoms? Fatty liver disease often does not cause symptoms. If symptoms do develop, they can include: ? Fatigue and weakness. ? Weight loss. ? Confusion. ? Nausea, vomiting, or abdominal pain. ? Yellowing of your skin and the white parts of your eyes (jaundice). ? Itchy skin. How is this diagnosed? This condition may be diagnosed by: ? A physical exam and your medical history. ? Blood tests. ? Imaging tests, such as an ultrasound, CT scan, or MRI. ? A liver biopsy. A small sample of liver tissue is removed using a needle. The sample is then looked at under a microscope. How is this treated? Fatty liver disease is often caused by other health conditions. Treatment for fatty liver may involve medicines and lifestyle changes to manage conditions such as: ? Alcoholism. ? High cholesterol. ? Diabetes. ? Being overweight or obese. Follow these instructions at home: ? Do not drink alcohol. If you have trouble quitting, ask your health care provider how to safely quit with the help of medicine or a supervised program. This is important to keep your condition from getting worse. ? Eat a healthy diet as told by your health care provider. Ask your health care provider about working with a dietitian to develop an eating plan. ? Exercise regularly. This can help you lose weight and control your cholesterol and diabetes. Talk to your health care provider about an exercise plan and which activities are best for you. ? Take sxkm-onn-hrohrwu and prescription medicines only as told by your health care provider. ? Keep all follow-up visits. This is important. Contact a health care provider if: ? You have trouble controlling your: ? Blood sugar. This is especially important if you have diabetes. ? Cholesterol. ? Drinking of alcohol. Get help right away if: ? You have abdominal pain. ? You have jaundice. ? You have nausea and are vomiting. ? You vomit blood or material that looks like coffee grounds. ? You have stools that are black, tar-like, or bloody. Summary ? Fatty liver disease develops when too much fat builds up in the cells of your liver. ? Fatty liver disease often causes no symptoms or problems. However, over time, fatty liver can cause inflammation that may lead to more serious liver problems, such as scarring of the liver (cirrhosis). ? You are more likely to develop this condition if you abuse alcohol, are , are overweight, have diabetes, have hepatitis, or have high triglyceride or cholesterol levels. ? Contact your health care provider if you have trouble controlling your blood sugar, cholesterol, or drinking of alcohol. This information is not intended to replace advice given to you by your health care provider. Make sure you discuss any questions you have with your health care provider. Document Revised: 05/25/2021 Document Reviewed: 05/25/2021 [employer]lick Patient Education ? 2022 [employer]. [facility] CNNURSEon 10-10-2023 CNNURSE Nurse Visit (HEMASA) ---- IVONNE CESPEDES ([id number]) 1955 F Date Time Provider Department 10/10/23 2:30 PM [facility] NURSE ERVIN VILLASENOR During your visit today, we recorded the following information about you: Temperature Pulse Respiration Blood pressure 97.7 degrees 89/minute 16/minute 129/88 Weight Height 54 kg 1.524 m Oniel Prescott Ma 10/10/2023 2:04 PM Signed Patient Identification confirmed: yes. Injection given and documented on OCT per provider order. Oniel Prescott Ma Referring Provider: MAIKEL LUNSFORD [[id number]] Allergies As of Date: 10/10/2023 Noted Allergy Reaction BUPROPION 12/22/2004 12 - Shortness of Breath ZYBAN (BUPROPION HCL (SMOKING DET*11/07/2018 12 - Shortness of Breath Date Reviewed: 09/11/2023 Reviewed by: Desirae Sargent MA - Fully Assessed Primary Visit Diagnosis:Anemia, unspecified type [D64.9] Other Visit Diagnosis:Megalobla stic anemia due to vitamin B12 deficiency [D53.1] Order(s):TREATMENT PARAMETER-NOT NEEDED [[id number]] Order #: [id number]: 1 BCN NURSING COMMUNICATION [[id number]] Order #: [id number]: 1 STANDING BCN NURSING COMMUNICATION [[id number]] Order #: [id number]: 1 STANDING BCN NURSING COMMUNICATION [[id number]] Order #: [id number]: 1 STANDING BCN NURSING COMMUNICATION [[id number]] Order #: [id number]: 1 STANDING BCN NURSING COMMUNICATION [[id number]] Order #: [id number]: 1 STANDING [] cyanocobalamin 1,000 mcg injectionDisp: Rfl: NaCl 0.9% iv infusionDisp: Rfl: diphenhydrAMINE 50 mg injection (BENADRYL)Disp: Rfl: hydrocortisone sodium succinate (PF) 100 mg injection (Solu-CORTEF)Disp: Rfl: EPINEPHrine 1 mg/mL (1 mL) 0.3 mg injectionDisp: Rfl: sodium chloride 0.9 % (flush) 10-20 mL (BD POSIFLUSH)Disp: Rfl: heparin 100 unit/mL 500 Units injectionDisp: Rfl: sodium chloride 0.9 % (flush) 10-20 mL (BD POSIFLUSH)Disp: Rfl: Prescriptions as of 10/10/2023 - levothyroxine (SYNTHROID) 50 mcg tablet Take 50 mcg by mouth once daily. 75mcg 2 days a week - enzymes,digestive (DIGESTIVE ENZYMES ORAL) Take by mouth. - loperamide (IMODIUM) 2 mg cap(s) every other day. - sertraline (ZOLOFT) 50 mg tablet Take 50 mg by mouth once daily. - calcium carbonate (CALCIUM 500 ORAL) Take by mouth. - Cholecalciferol, Vitamin D3, (VITAMIN D) 1,000 unit cap Take 1,000 Units by mouth once daily. Facility-Administer ed Medications as of 10/10/2023 - NaCl 0.9% iv infusion - diphenhydrAMINE 50 mg injection (BENADRYL) - hydrocortisone sodium succinate (PF) 100 mg injection (Solu-CORTEF) - EPINEPHrine 1 mg/mL (1 mL) 0.3 mg injection - sodium chloride 0.9 % (flush) 10-20 mL (BD POSIFLUSH) - heparin 100 unit/mL 500 Units injection - sodium chloride 0.9 % (flush) 10-20 mL (BD POSIFLUSH) Problem List As Of Date 10/10/2023 Noted Resolved Ductal carcinoma in situ (DCIS) of breast [D05.*06/11/2019 Anemia [D64.9] 03/13/2023 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 deficie*03/13/2023 Visit Notes: >> Oniel Prescott Ma Oct 10, 2023 1:47 PM Status: Signed Patient Identification confirmed: yes. Injection given and documented on OCT per provider order. Oniel Prescott Ma Prescriptions ordered this encounter Disp Refills Start End CYANOCOBALAMIN (VIT B-12) 1,000 MCG/* 10/10/2023 10/10/2023 Route: INTRAMUSCULA SODIUM CHLORIDE 0.9 % INTRAVENOUS SO* 10/10/2023 Cmt: Inform physician Route: INTRAVENOUS DIPHENHYDRAMINE 50 MG/ML INJECTION S* 10/10/2023 Route: INTRAVENOUS HYDROCORTISONE SOD SUCCINATE (PF) 10* 10/10/2023 Route: INTRAVENOUS EPINEPHRINE 1 MG/ML (1 ML) INJECTION* 10/10/2023 Route: INTRAMUSCULA SODIUM CHLORIDE 0.9 % (FLUSH) INJECT* 10/10/2023 Route: INTRAVENOUS HEPARIN LOCK FLUSH (PORCINE) 100 UNI* 10/10/2023 Route: INTRAVENOUS SODIUM CHLORIDE 0.9 % (FLUSH) INJECT* 10/10/2023 Route: INTRAVENOUS Encounter Status:Closed by ONIEL PRESCOTT MA on 10/10/23 Normal [facility] CBC W Auto Differential pane l (Bld)on 09-11-2023 Basophils (Bld) [#/Vol] 0.07 10*3/uL Normal <0.11 [facility] Comment on above: Order Comment: Speci men Type: BLOOD SPECIMENOrdering Facility: [facility] Address: [address] [place] [address] Performed By: #### 5 7021-8 ####[facility] LABCLIA [id number] [place] [address] Basophils/100 WBC (Bld) 1.0 % Normal [facility] Comment on above: Order Comment: Speci men Type: BLOOD SPECIMENOrdering Facility: [facility] Address: [address] [place] [address] Performed By: #### 5 7021-8 ####[facility] LABCLIA [id number] [place] [address] Differential cell count method Nom (Bld) Auto Normal [facility] Comment on above: Order Comment: Speci men Type: BLOOD SPECIMENOrdering Facility: [facility] Address: [address] [place] [address] Performed By: #### 5 7021-8 ####[facility] LABCLIA [id number] [place] [address] Eosinophils (Bld) [#/Vol] 0.15 10*3/uL Normal <0.46 [facility] Comment on above: Order Comment: Speci men Type: BLOOD SPECIMENOrdering Facility: [facility] Address: [address] [place] [address] Performed By: #### 5 7021-8 ####[facility] LABCLIA [id number] [place] [address] Eosinophils/100 WBC (Bld) 2.2 % Normal [facility] Comment on above: Order Comment: Speci men Type: BLOOD SPECIMENOrdering Facility: [facility] Address: [address] [place] [address] Performed By: #### 5 7021-8 ####[facility] LABCLIA [id number] [place] [address] Erythrocyte distribution width (RBC) [Ratio] 14.2 % Normal 11.5-15.0 [facility] Comment on above: Order Comment: Speci men Type: BLOOD SPECIMENOrdering Facility: [facility] Address: [address] [place] [address] Performed By: #### 5 7021-8 ####[facility] LABCLIA [id number] [place] [address] Hematocrit (Bld) [Volume fraction] 41.8 % Normal 36.0-46.0 [facility] Comment on above: Order Comment: Speci men Type: BLOOD SPECIMENOrdering Facility: [facility] Address: [address] [place] [address] Performed By: #### 5 7021-8 ####[facility] LABCLIA [id number] [place] [address] Hemoglobin (Bld) [Mass/Vol] 13.5 g/dL Normal 11.5-15.5 [facility] Comment on above: Order Comment: Speci men Type: BLOOD SPECIMENOrdering Facility: [facility] Address: [address] [place] [address] Performed By: #### 5 7021-8 ####[facility] LABCLIA [id number] [place] [address] Immature granulocytes (Bld) [#/Vol] 0.03 10*3/uL Normal <0.10 [facility] Comment on above: Order Comment: Speci men Type: BLOOD SPECIMENOrdering Facility: [facility] Address: [address] [place] [address] Performed By: #### 5 7021-8 ####[facility] LABCLIA [id number] [place] [address] Immature granulocytes/100 WBC (Bld) 0.4 % Normal [facility] Comment on above: Order Comment: Speci men Type: BLOOD SPECIMENOrdering Facility: [facility] Address: [address] [place] [address] Performed By: #### 5 7021-8 ####[facility] LABCLIA [id number] [place] [address] Lymphocytes (Bld) [#/Vol] 1.76 10*3/uL Normal 1.00-4.00 [facility] Comment on above: Order Comment: Speci men Type: BLOOD SPECIMENOrdering Facility: [facility] Address: [address] [place] [address] Performed By: #### 5 7021-8 ####[facility] LABCLIA [id number] [place] [address] Lymphocytes/100 WBC (Bld) 26.3 % Normal [facility] Comment on above: Order Comment: Speci men Type: BLOOD SPECIMENOrdering Facility: [facility] Address: [address] [place] [address] Performed By: #### 5 7021-8 ####[facility] LABCLIA [id number] [place] [address] MCH (RBC) [Entitic mass] 28.4 pg Normal 26.0-34.0 [facility] Comment on above: Order Comment: Speci men Type: BLOOD SPECIMENOrdering Facility: [facility] Address: [address] [place] [address] Performed By: #### 5 7021-8 ####[facility] LABCLIA [id number] [place] [address] MCHC (RBC) [Mass/Vol] 32.3 g/dL Normal 30.5-36.0 [facility] Comment on above: Order Comment: Speci men Type: BLOOD SPECIMENOrdering Facility: [facility] Address: [address] [place] [address] Performed By: #### 5 7021-8 ####[facility] LABCLIA [id number] [place] [address] MCV (RBC) [Entitic vol] 88.0 fL Normal 80.0-100.0 [facility] Comment on above: Order Comment: Speci men Type: BLOOD SPECIMENOrdering Facility: [facility] Address: [address] [place] [address] Performed By: #### 5 7021-8 ####[facility] LABCLIA [id number] [place] [address] Monocytes (Bld) [#/Vol] 0.47 10*3/uL Normal <0.87 [facility] Comment on above: Order Comment: Speci men Type: BLOOD SPECIMENOrdering Facility: [facility] Address: [address] [place] [address] Performed By: #### 5 7021-8 ####[facility] LABCLIA [id number] [place] [address] Monocytes/100 WBC (Bld) 7.0 % Normal [facility] Comment on above: Order Comment: Speci men Type: BLOOD SPECIMENOrdering Facility: [facility] Address: [address] [place] [address] Performed By: #### 5 7021-8 ####[facility] LABCLIA [id number] [place] [address] Neutrophils (Bld) [#/Vol] 4.22 10*3/uL Normal 1.45-7.50 [facility] Comment on above: Order Comment: Speci men Type: BLOOD SPECIMENOrdering Facility: [facility] Address: [address] [place] [address] Performed By: #### 5 7021-8 ####[facility] LABCLIA [id number] [place] [address] Neutrophils/100 WBC (Bld) 63.1 % Normal [facility] Comment on above: Order Comment: Speci men Type: BLOOD SPECIMENOrdering Facility: [facility] Address: [address] [place] [address] Performed By: #### 5 7021-8 ####[facility] LABIA [id number] [place] [address] Nucleated RBC (Bld) [#/Vol] 10*3/uL Normal <0.01 [facility] Comment on above: Order Comment: Speci men Type: BLOOD SPECIMENOrdering Facility: [facility] Address: [address] [place] [address] Performed By: #### 5 7021-8 ####[facility] LABCLIA [id number] [place] [address] Nucleated RBC/100 WBC (Bld) [Ratio] 0.0 /100 WBC Normal [facility] Comment on above: Order Comment: Speci men Type: BLOOD SPECIMENOrdering Facility: [facility] Address: [address] [place] [address] Performed By: #### 5 7021-8 ####[facility] LABIA [id number] [place] [address] Platelet mean volume (Bld) [Entitic vol] 9.2 fL Normal 9.0-12.7 [facility] Comment on above: Order Comment: Speci men Type: BLOOD SPECIMENOrdering Facility: [facility] Address: [address] [place] [address] Performed By: #### 5 7021-8 ####[facility] LABCLIA [id number] [place] [address] Platelets (Bld) [#/Vol] 267 10*3/uL Normal 150-400 [facility] Comment on above: Order Comment: Speci men Type: BLOOD SPECIMENOrdering Facility: [facility] Address: [address] [place] [address] Performed By: #### 5 7021-8 ####[facility] LABCLIA [id number] [place] [address] RBC (Bld) [#/Vol] 4.75 10*6/uL Normal 3.90-5.20 [facility] Comment on above: Order Comment: Speci men Type: BLOOD SPECIMENOrdering Facility: [facility] Address: [address] [place] [address] Performed By: #### 5 7021-8 ####[facility] LABIA [id number] [place] [address] WBC (Bld) [#/Vol] 6.70 10*3/uL Normal 3.70-11.00 [facility] Comment on above: Order Comment: Speci men Type: BLOOD SPECIMENOrdering Facility: [facility] Address: [address] [place] [address] Performed By: #### 5 7021-8 ####[facility] LABIA [id number] [place] [address] [facility] 09-11-2023 CNNURSE Nurse Visit (HEMASA) ---- VIONNE CESPEDES ([id number]) 1955 F Date Time Provider Department 09/11/23 2:45 PM [facility] NURSE ERVIN SEAMUS VILLASENOR During your visit today, we recorded the following information about you: Gabino Carri 09/11/2023 2:54 PM Signed Patient Identification confirmed: yes. Injection given and documented on OCT per provider order. Carri Walker Referring Provider: MAIKEL LUNSFORD [[id number]] Allergies As of Date: 09/11/2023 Noted Allergy Reaction BUPROPION 12/22/2004 12 - Shortness of Breath ZYBAN (BUPROPION HCL (SMOKING DET*11/07/2018 12 - Shortness of Breath Date Reviewed: 09/11/2023 Reviewed by: Desirae Sargent MA - Fully Assessed Primary Visit Diagnosis:Anemia, unspecified type [D64.9] Other Visit Diagnosis:Megalobla stic anemia due to vitamin B12 deficiency [D53.1] Order(s):TREATMENT PARAMETER-NOT NEEDED [[id number]] Order #: [id number]: 1 [] cyanocobalamin 1,000 mcg injectionDisp: Rfl: Prescriptions as of 09/11/2023 - levothyroxine (SYNTHROID) 50 mcg tablet Take 50 mcg by mouth once daily. 75mcg 2 days a week - enzymes,digestive (DIGESTIVE ENZYMES ORAL) Take by mouth. - loperamide (IMODIUM) 2 mg cap(s) every other day. - sertraline (ZOLOFT) 50 mg tablet Take 50 mg by mouth once daily. - calcium carbonate (CALCIUM 500 ORAL) Take by mouth. - Cholecalciferol, Vitamin D3, (VITAMIN D) 1,000 unit cap Take 1,000 Units by mouth once daily. 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 Injection given and documented on OCT per provider order. Carri Walker Prescriptions ordered this encounter Disp Refills Start End CYANOCOBALAMIN (VIT B-12) 1,000 MCG/* 09/11/2023 09/11/2023 Route: INTRAMUSCULA Encounter Status:Closed by CARRI WALKER on 09/11/23 Normal [facility] CNOVSPon 09-11-2023 CNOVSP Visit (SP) Office (HEMASA) ---- COYJOSEIVONNE Santos ([id number]) 1955 F Date Time Provider Department 09/11/23 2:30 PM MAIKEL LUNSFORD HEMASA During your visit today, we recorded the following information about you: Temperature Pulse Respiration Blood pressure 97.3 degrees 79/minute 16/minute 136/82 Weight Height 54 kg 1.524 m Desirae Sargent MA 09/11/2023 2:10 PM Signed Patient states that she can feel she has missed 2 B12 shots. She also would like magnesium checked. RAFA Khoury Vivek, MD 09/11/2023 8:29 PM Signed NAME: Ivonne Cespedes CLINIC NO.: [id number] DATE OF SERVICE: September 11, 2023 (Martín) Some elements in this clinic note that are critical to medical decision making have been carefully reviewed and included from a prior clinic note dated: June 05, 2023 (Martín) Referring Provider: Rosa Shearer Additional Clinicians involved in Ivonne Cespedes's care: DIAGNOSIS: B12 deficiency History of right breast DCIS ASSESSMENT: 68 year old woman with DCIS diagnosed approximately 4 years ago in October 2018 status post lumpectomy and radiation but no endocrine therapy for chemoprevention. I will try to discuss this with her again at the next visit. However, it is unlikely to help her this far out from primary therapy. She is referred for persistent B12 deficiency and likely has pernicious anemia. Intrinsic factor antibodies were negative. Continue B12 replacement intramuscularly every month. PLAN: B12 shot today and then every 4 weeks Repeat labs every 12 weeks RTC in 24 weeks ___- HPI: CASE HISTORY: Reverse Chronological Order 06/06/2023 - Mammogram: category 2 benign 02/13/2023 - B12 level 144 11/01/2022 - CBC 5.7 > 13.5/41.6 < 218 normal differential. March 2022 FibroScan F0-F1 no steatosis. 01/2022 - CT scan abdomen pelvis at [facility] hepatomegaly with hepatic steatosis. 06/2021 - CT abdomen pelvis right retrocrural lymph node. November 25, [address] 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 The estrogen receptor was positive at 10-20% with progesterone receptor negative DCIS Right Breast - [facility] [place]22[place] - mammogram showing suspicious changes in the right breast. grouping of numerous pleomorphic calcifications within the posterior upper inner quadrant. Updated Visit, September 11, 2023: Ivonne returns today for a 12 week follow up. Her labs all look good today. She was hospitalized recently after her BP was low, she was told she has fatigue but her PCP reported the issue was her thyroid. She would like to try taking a magnesium supplement. Her dog recently. Updated Visit, June 05, 2023: Mammogram done in [place] yesterday Was told she has pancreatic insufficiency B12 levels remain low. Initial Visit, March 13, 2023: Ivonne Cespedes presents today Hematology and Oncology evaluation. 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 Additionally has a history of pancreatic insufficiency requiring Creon and fatty liver disease with IBS diarrhea. She has known vitamin B12 deficiency with levels less than 50 and was supposed to start vitamin B12 supplementation which I did do not know if she did. B12 level February 13, 2023 had improved to 144. She is referred for evaluation of B12 supplementation. ___- REVIEW OF SYSTEMS Per HPI and otherwise negative by full review of organ systems. ___- ECOG PERFORMANCE STATUS: 0 PHYSICAL EXAMINATION: Vitals: BP 136/82 Pulse 79 Temp (Src) 97.3 (Temporal) Resp 16 Ht 5' 0 (1.52m) Wt 119 lb 0.8 oz (54.0kg) SpO2 98% BMI 23.25 kg/(m2). Body surface area is 1.51 meters squared. Exam limited to gross visualization where appropriate. Gen.: This is an age-appropriate patient in no acute distress. Head: Appears atraumatic with no visible lesions. Eyes: Pupils equally round and reactive to light, extraocular muscles are intact. Neck: Supple. Respiratory: Appears to be respiring comfortably. Neurologic: Nonfocal to gross visualization. Alert and oriented ?3. Psychiatric: No evidence of inappropriate anxiety or depression. Skin: Visible areas of skin without rash, lesions, wounds or petechiae. Resolving shingles rash on right abdomen. Chaperoned Breast Exam September 11, 2023 ([facility]) : Right breast: scar 1 o'clock - well healed, no sign (more content not included)... Normal [facility] Comprehensive metabolic 2000 panelon 09-11-2023 Albumin [Mass/Vol] 4.0 g/dL Normal 3.9-4.9 [facility] Comment on above: Order Comment: Speci men Type: BLOOD SPECIMENOrdering Facility: [facility] Address: [address] [place] [address] Performed By: #### 2 4323-8 ####[facility] LABCLIA [id number] [place] [address] ALP [Catalytic activity/Vol] 100 U/L Normal 34-123 [facility] Comment on above: Order Comment: Speci men Type: BLOOD SPECIMENOrdering Facility: [facility] Address: [address] [place] [address] Performed By: #### 2 4323-8 ####[facility] LABCLIA [id number] [place] [address] ALT [Catalytic activity/Vol] 15 U/L Normal 7-38 [facility] Comment on above: Order Comment: Speci men Type: BLOOD SPECIMENOrdering Facility: [facility] Address: [address] [place] [address] Performed By: #### 2 4323-8 ####[facility] LABCLIA [id number] [place] [address] Anion gap [Moles/Vol] 9 mmol/L Normal 9-18 [facility] Comment on above: Order Comment: Speci men Type: BLOOD SPECIMENOrdering Facility: [facility] Address: [address] [place] [address] Performed By: #### 2 4323-8 ####[facility] LABCLIA [id number] [place] [address] AST [Catalytic activity/Vol] 20 U/L Normal 13-35 [facility] Comment on above: Order Comment: Speci men Type: BLOOD SPECIMENOrdering Facility: [facility] Address: [address] [place] [address] Performed By: #### 2 4323-8 ####[facility] LABCLIA [id number] [place] [address] Bilirubin [Mass/Vol] 0.2 mg/dL Normal 0.2-1.3 [facility] Comment on above: Order Comment: Speci men Type: BLOOD SPECIMENOrdering Facility: [facility] Address: [address] [place] [address] Performed By: #### 2 4323-8 ####[facility] LABCLIA [id number] [place] [address] Calcium [Mass/Vol] 9.5 mg/dL Normal 8.5-10.2 [facility] Comment on above: Order Comment: Speci men Type: BLOOD SPECIMENOrdering Facility: [facility] Address: [address] [place] [address] Performed By: #### 2 4323-8 ####[facility] LABCLIA [id number] [place] [address] Chloride [Moles/Vol] 106 mmol/L High 97-105 [facility] Comment on above: Order Comment: Speci men Type: BLOOD SPECIMENOrdering Facility: [facility] Address: [address] [place] [address] Performed By: #### 2 4323-8 ####[facility] LABCLIA [id number] [place] [address] CO2 [Moles/Vol] 28 mmol/L Normal 22-30 [facility] Comment on above: Order Comment: Speci men Type: BLOOD SPECIMENOrdering Facility: [facility] Address: [address] [place] [address] Performed By: #### 2 4323-8 ####[facility] LABCLIA [id number] [place] [address] Creatinine [Mass/Vol] 0.54 mg/dL Low 0.58-0.96 [facility] Comment on above: Order Comment: Speci men Type: BLOOD SPECIMENOrdering Facility: [facility] Address: [address] [place] [address] Performed By: #### 2 4323-8 ####[facility] LABCLIA [id number] [place] [address] Creatinine and Glomerular filtration rate.predicted panel (S/P/Bld) 99 mL/min/1.73m??? Normal >=60 [facility] Comment on above: Order Comment: Eusebio joya Type: BLOOD SPECIMENOrdering Facility: [facility] Address: [address] [place] [address] Result Comment: Angela mated Glomerular Filtration Rate (eGFR) is calculated using the 2020 CKD-EPI creatinine equation. This equation utilizes serum creatinine, sex, and age as parameters. The creatinine assay has traceable calibration to isotope dilution-mass spectrometry. Refer to KDIGO guidelines for clinical interpretation. In patients with unstable renal function, e.g. those with acute kidney injury, the eGFR may not accurately reflect actual GFR. Performed By: #### 2 4323-8 ####[facility] LABCLIA [id number] [place] [address] Glucose [Mass/Vol] 119 mg/dL High 74-99 [facility] Comment on above: Order Comment: Eusebio joya Type: BLOOD SPECIMENOrdering Facility: [facility] Address: [address] [place] [address] Result Comment: The [place] Diabetes [employer] (ADA) provides guidance for cutoff values for fasting glucose and random glucose. The ADA defines fasting as no caloric intake for at least 8 hours. Fasting plasma glucose results between 100 to 125 mg/dL indicate increased risk for diabetes (prediabetes). Fasting plasma glucose results greater than or equal to 126 mg/dL meet the criteria for diagnosis of diabetes. In the absence of unequivocal hyperglycemia, results should be confirmed by repeat testing. In a patient with classic symptoms of hyperglycemia or hyperglycemic crisis, random plasma glucose results greater than or equal to 200 mg/dL meet the criteria for diagnosis of diabetes. Reference: Standards of Medical Care in Diabetes 2016, [place] Diabetes Association. Diabetes Care. 2016.39(Suppl 1). Performed By: #### 2 4323-8 ####[facility] LABCLIA [id number] [place] [address] Potassium [Moles/Vol] 4.4 mmol/L Normal 3.7-5.1 [facility] Comment on above: Order Comment: Speci men Type: BLOOD SPECIMENOrdering Facility: [facility] Address: [address] [place] [address] Performed By: #### 2 4323-8 ####[facility] LABCLIA [id number] [place] [address] Protein [Mass/Vol] 7.5 g/dL Normal 6.3-8.0 [facility] Comment on above: Order Comment: Speci men Type: BLOOD SPECIMENOrdering Facility: [facility] Address: [address] [place] [address] Performed By: #### 2 4323-8 ####[facility] LABCLIA [id number] [place] [address] Sodium [Moles/Vol] 143 mmol/L Normal 136-144 [facility] Comment on above: Order Comment: Speci men Type: BLOOD SPECIMENOrdering Facility: [facility] Address: [address] [place] [address] Performed By: #### 2 4323-8 ####[facility] LABCLIA [id number] [place] [address] Urea nitrogen [Mass/Vol] 10 mg/dL Normal 7-21 [facility] Comment on above: Order Comment: Speci men Type: BLOOD SPECIMENOrdering Facility: [facility] Address: [address] [place] [address] Performed By: #### 2 4323-8 ####[facility] LABCLIA [id number] [place] [address] Ferritin SerPl-ncon 2023 Ferritin [Mass/Vol] 35.3 ng/mL Normal 14.7-205.1 [facility] Comment on above: Order Comment: Speci men Type: BLOOD SPECIMENOrdering Facility: [facility] Address: [address] [place] [address] Performed By: #### 5 0190-8, 2276-4, 2284-8, 2132-9 ####[facility] LABCLIA [id number] [place] [id number] [place] Folate SerPl-mCncon 09-11-19 Folate [Mass/Vol] 14.3 ng/mL Normal >4.7 [facility] Comment on above: Order Comment: Speci men Type: BLOOD SPECIMENOrdering Facility: [facility] Address: [address] [place] [address] Performed By: #### 5 0190-8, 2276-4, 8, 2132-04 ####[facility] LABCLIA [id number] [place] [id number] [place] Iron and Iron binding capaci ty panelon 09-11-2023 Iron [Mass/Vol] 54 ug/dL Normal 41-186 [facility] Comment on above: Order Comment: Speci men Type: BLOOD SPECIMENOrdering Facility: [facility] Address: [address] [place] [address] Performed By: #### 5 0190-8, 6-4, 8, 2132-04 ####[facility] LABIA [id number] [place] [address] [place] Iron binding capacity [Mass/Vol] 380 ug/dL Normal 232-386 [facility] Comment on above: Order Comment: Speci men Type: BLOOD SPECIMENOrdering Facility: [facility] Address: [address] [place] [address] Performed By: #### 5 0190-8, 6-4, 8, 2132-04 ####[facility] LABIA [id number] [place] [id number] [place] Iron/TIBC [Molar ratio] 14.2 % Low 15.0-57.0 [facility] Comment on above: Order Comment: Speci men Type: BLOOD SPECIMENOrdering Facility: [facility] Address: [address] [place] [address] Performed By: #### 5 0190-8, 6-4, 2284-8, 9 ####[facility] LABCLIA [id number] [place] [id number] [place] Magnesium SerPl-mCncon 09-11 Magnesium [Mass/Vol] 2.4 mg/dL High 1.7-2.3 [facility] Comment on above: Order Comment: Speci men Type: BLOOD SPECIMENOrdering Facility: [facility] Address: [address] [place] [address] Performed By: #### 1 9123-9 ####[facility] LABCLIA [id number] [place] [address] Vit B12 SerPl-ncon 024 Cobalamin (Vitamin B12) [Mass/Vol] 395 pg/mL Normal 232-1245 [facility] Comment on above: Order Comment: Speci men Type: BLOOD SPECIMENOrdering Facility: [facility] Address: [address] [place], [place] [address] [address] Performed By: #### 5 0190-8, 6-4, 2284-8, 9 ####[facility] LABIA [id number] [place] [id number] [place] Pancreatic Elastase, Fecalon 08-07-2023 Elastase.pancreatic (Stl) [Mass/Mass] 219 Invalid Interpretation Code >200 [facility] Comment on above: Result Comment: Lucia yates Pancreatic Insufficiency: <100 Moderate Pancreatic Insufficiency: 100 - 200 Normal: >200 Performed at: [facility] [address] [place], [place] [id number] MD Mohsen Urbina Performed By: #### 1 [id number] ####[facility] [id number] [place] [address] CNNURSEon 07-31-2023 CNNURSE Nurse Visit (HEMASA) ---- IVONNE CESPEDES ([id number]) 1955 F Date Time Provider Department 07/31/23 2:00 PM RAFA NURSE ERVIN SEAMUS VILLASENOR During your visit today, we recorded the following information about you: Temperature Pulse Respiration Blood pressure 97.1 degrees 161/minute 18/minute 78/46 Pepe Yadav 07/31/2023 2:28 PM Signed Patient came in for a b-12. Patient blood pressure low. Repeated. Pulse high. Patient complaining of lightheadedness,diz zy, and fatigue. Got Dr. Maikel Lunsford. Did an EKG while someone called 911. Pepe Pelaez 07/31/2023 2:28 PM Signed EKG performed as ordered. Electronically sent to [facility] main. Placed paper copy in scan folder. 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 #:[id number]--IVD Eekg Prescriptions as of 08/01/2023 - levothyroxine (SYNTHROID) 50 mcg tablet take 1 tablet by mouth every day in the morning on empty stomach - enzymes,digestive (DIGESTIVE ENZYMES ORAL) Take by mouth. - loperamide (IMODIUM) 2 mg cap(s) every other day. - sertraline (ZOLOFT) 50 mg tablet Take 50 mg by mouth once daily. - calcium carbonate (CALCIUM 500 ORAL) Take by mouth. - Cholecalciferol, Vitamin D3, (VITAMIN D) 1,000 unit cap Take 1,000 Units by mouth once daily. 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 Patient blood pressure low. Repeated. Pulse high. Patient complaining of lightheadedness,diz zy, and fatigue. Got Dr. Maikel Lunsford. Did an EKG while someone called 911. Pepe Yadav >> Pepe Yadav SatJul 31, 2023 2:25 PM Status: Signed EKG performed as ordered. Electronically sent to [facility] main. Placed paper copy in scan folder. Pepe Yadav Prescriptions ordered this encounter Disp Refills Start End CYANOCOBALAMIN (VIT B-12) 1,000 MCG/* 07/31/2023 08/01/2023 Route: INTRAMUSCULA Encounter Status:Closed by PEPE YADAV on 08/01/23 [facility] 07-31-2023 CNPN Telephone (SAMI) ---- IVONNE CESPEDES ([id number]) 1955 F Date Time Provider Department 07/31/23 MACARENA URRUTIA During your visit today, we recorded the following information about you: Macarena Urrutia RN 07/31/2023 4:19 PM Signed 1400: Pt arrives to clinic for Vitamin B12 injection. Pt reported feeling dizzy, lightheaded, and tired. Vitals obtained: BP 78/46 HR [address]%. Dr. Lunsford aware and Dr CABRERA called overhead. EKG ordered and obtained, 2L Oxygen applied. EKG interpreted by Dr. Cielo CHACON noted. Squad was called at 1405 and arrived at 1417. Pt remained calm and responsive. Pt asked to have sonRonny called and updated. Cesia Gilbert, social work handled this. Vitals rechecked, manual BP 80/64 HR 151 SpO2 100% 2L [place]. Pt dc'd via EMS. YAA Dominguez Vivek, MD 07/31/2023 7:36 PM Signed Thank you for documenting Allergies As of Date: 07/31/2023 Noted Allergy Reaction BUPROPION 12/22/2004 12 - Shortness of Breath ZYBAN (BUPROPION HCL (SMOKING DET*11/07/2018 12 - Shortness of Breath Date Reviewed: 07/03/2023 Reviewed by: Jyoti Shelton RD - Fully Assessed Reason for Visit: Syncope [106] Prescriptions as of 08/01/2023 - levothyroxine (SYNTHROID) 50 mcg tablet take 1 tablet by mouth every day in the morning on empty stomach - enzymes,digestive (DIGESTIVE ENZYMES ORAL) Take by mouth. - loperamide (IMODIUM) 2 mg cap(s) every other day. - sertraline (ZOLOFT) 50 mg tablet Take 50 mg by mouth once daily. - calcium carbonate (CALCIUM 500 ORAL) Take by mouth. - Cholecalciferol, Vitamin D3, (VITAMIN D) 1,000 unit cap Take 1,000 Units by mouth once daily. 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 Anemia [D64.9] 03/13/2023 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 deficie*03/13/2023 Encounter Status:Closed by MACARENA URRUTIA on 08/01/23 Normal [facility] COVID-19 / Flu A/B / RSV PCR on 07-31-2023 SARS-CoV-2 (COVID-19) RNA SARANYA+probe Ql (Unsp spec) COVID-19 Cepheid Result Negative for SARS-CoV-2 RNA by RT-PCR Flu A Cepheid Result Negative for Flu A RNA by RT-PCR Flu B Cepheid Result Negative for Flu B RNA by RT-PCR RSV Cepheid Result Negative for RSV RNA by RT-PCR COVID19 Blank Space Reference: Negative COVID19 Blank Space Cepheid Disclaimer The Cepheid Xpert Xpress CoV-2/Flu/RSV Plus has Cepheid Disclaimer not been FDA cleared or approved; this test has Cepheid Disclaimer been authorized by FDA under an EUA for use by Cepheid Disclaimer authorized laboratories; this test has been Cepheid Disclaimer authorized only for the simultaneous qualitative Cepheid Disclaimer detection and differentiation of nucleic acids from Cepheid Disclaimer SARS-CoV-2, influenza A, influenza B, and Cepheid Disclaimer respiratory syncytial virus (RSV), and not for any Cepheid Disclaimer other viruses or pathogens; and this test is only Cepheid Disclaimer authorized for the duration of the declaration that Cepheid Disclaimer circumstances exist justifying the authorization of Cepheid Disclaimer emergency use of in vitro diagnostic tests for Cepheid Disclaimer detection and/or diagnosis of COVID-19 under Cepheid Disclaimer Section 564(b)(1) of the Act, 21 U.S.C. 360bbb- Cepheid Disclaimer 3(b)(1), unless the authorization is terminated or Cepheid Disclaimer revoked sooner. PERFORMED BY: [facility] [place]e [place] [address] PATHOLOGIST [employer]INTER SHERRI DIETZ M.D. [facility] Comment on above: Performed By: #### P TT, CMP, MG, HS TROP, CBC, T4T, TSH3, PT #### [facility] [address] head/brain wo conon 07-31 CT head/brain wo con [facility] Main [place] [address] [place] [address] CT Scan Report Signed Patient: Ivonne Cespedes MR#: [id number] 10 : 1955 Acct:[id number] Age/Sex: 68 / F ADM Date: 07/31/23 Loc: ER Room: Type: PRE ER Attending Dr: Copies to: Beverley Ngo APRN Ordering Provider: Beverley Ngo APRN Date of Service: 07/31/23 CT/CT head/brain wo con: lightheadedness/diz ziness CT BRAIN WITHOUT CONTRAST: CLINICAL HISTORY: Dizziness, lightheadedness. COMPARISON: None TECHNIQUE: Contiguous axial unenhanced images were obtained through the brain. This CT exam was performed using one or more following dose reduction techniques: Automated exposure control, adjustm ent of the mA and/or kV according to patient size, or use of iterative reconstruction technique. FINDINGS: There is no evidence of midline shift, intra or extra-axial fluid collection, hemorrhage or CT evidence of stroke. Cortical atrophy with chronic microvascular ischemic changes. Posterior fossa appears unremarkable. Visualized intraorbital contents demonstrate no acute findings. Visualized paranasal sinuses are clear. The surrounding soft tissues are normal. CT/CT head/brain wo con IMPRESSION: NO ACUTE INTRACRANIAL ABNORMALITY. Impression dictated by: Max Welsh Jr., D.O.07/31/2023 3:23 PM Dictation Location: [place] [address] Transcribed By: [facility] 07/31/23 1523 Dictated By: Max Welsh Jr, DO 07/31/23 1517 Signed By: 07/31/23 1523 Normal [facility] Cepheid COVID PCR Negativeon 07-31-2023 SARS-CoV-2 (COVID-19) RNA SARANYA+probe Ql (Unsp spec) Negative Normal Negative [facility] Comment on above: Result Comment: This is a duplicate Cepheid Xpert Xpress CoV-2/Flu/RSV Plus RNA by RT-PCR result to be used for statistical tracking purpose only. PERFORMED BY: [place] [address] PATHOLOGIST [employer]INTER SHERRI DIETZ M.D. Performed By: #### P TT, CMP, MG, HS TROP, CBC, T4T, TSH3, PT #### [address] Complete Blood Count Auto Di ffon 07-31-2023 Basophils (Bld) [#/Vol] 0.1 10*3/uL Normal 0.0-0.2 [facility] Comment on above: Result Comment: PERF ORMED BY: [place] [address] PATHOLOGIST [employer]INTER SHERRI DIETZ M.D. Performed By: #### P TT, CMP, MG, HS TROP, CBC, T4T, TSH3, PT #### [address] Basophils/100 WBC (Bld) 1.0 % Normal . [facility] Comment on above: Performed By: #### P TT, CMP, MG, HS TROP, CBC, T4T, TSH3, PT #### [address] Eosinophils (Bld) [#/Vol] 0.1 10*3/uL Normal 0.0-0.45 [facility] Comment on above: Performed By: #### P TT, CMP, MG, HS TROP, CBC, T4T, TSH3, PT #### [address] Eosinophils/100 WBC (Bld) 2.0 % Normal . [facility] Comment on above: Performed By: #### P TT, CMP, MG, HS TROP, CBC, T4T, TSH3, PT #### [address] Erythrocyte distribution width (RBC) [Ratio] 15.2 % Normal 11.9-15.3 [facility] Comment on above: Performed By: #### P TT, CMP, MG, HS TROP, CBC, T4T, TSH3, PT #### [address] Hematocrit (Bld) [Volume fraction] 38.7 % Normal 34.0-46.4 [facility] Comment on above: Performed By: #### P TT, CMP, MG, HS TROP, CBC, T4T, TSH3, PT #### [address] Hemoglobin (Bld) [Mass/Vol] 13.0 g/dL Normal 11.8-15.4 [facility] Comment on above: Performed By: #### P TT, CMP, MG, HS TROP, CBC, T4T, TSH3, PT #### [address] Lymphocytes (Bld) [#/Vol] 1.5 10*3/uL Normal 1.00-4.8 [facility] Comment on above: Performed By: #### P TT, CMP, MG, HS TROP, CBC, T4T, TSH3, PT #### [address] Lymphocytes/100 WBC (Bld) 25.8 % Normal . [facility] Comment on above: Performed By: #### P TT, CMP, MG, HS TROP, CBC, T4T, TSH3, PT #### [address] MCH (RBC) [Entitic mass] 29.2 pg Normal 24.7-34.3 [facility] Comment on above: Performed By: #### P TT, CMP, MG, HS TROP, CBC, T4T, TSH3, PT #### [address] MCV (RBC) [Entitic vol] 86.8 fL Normal 80-100 [facility] Comment on above: Performed By: #### P TT, CMP, MG, HS TROP, CBC, T4T, TSH3, PT #### [address] Mean Corpuscular HGB Conc 33.6 g/dL Normal 32.0-35.0 [facility] Comment on above: Performed By: #### P TT, CMP, MG, HS TROP, CBC, T4T, TSH3, PT #### [facility] [address] Monocytes (Bld) [#/Vol] 0.4 10*3/uL Normal 0.0-0.8 [facility] Comment on above: Performed By: #### P TT, CMP, MG, HS TROP, CBC, T4T, TSH3, PT #### [facility] [address] Monocytes/100 WBC (Bld) 19.41 % Normal 0.00-20.00 [facility] Comment on above: Performed By: #### P TT, CMP, MG, HS TROP, CBC, T4T, TSH3, PT #### [facility] [address] [place] [address] Monocytes/100 WBC (Bld) 6.6 % Normal . [facility] Comment on above: Performed By: #### P TT, CMP, MG, HS TROP, CBC, T4T, TSH3, PT #### [facility] [address] [place] [address] Neutrophils (Bld) [#/Vol] 3.7 10*3/uL Normal 1.8-7.7 [facility] Comment on above: Performed By: #### P TT, CMP, MG, HS TROP, CBC, T4T, TSH3, PT #### [facility] [address] [place] [address] [place] Neutrophils/100 WBC (Bld) 64.6 % Normal . [facility] Comment on above: Performed By: #### P TT, CMP, MG, HS TROP, CBC, T4T, TSH3, PT #### [facility] [address] NRBC% 0.0 /100{WBC} Normal 0-0.5 [facility] Comment on above: Performed By: #### P TT, CMP, MG, HS TROP, CBC, T4T, TSH3, PT #### [facility] [address] Platelet mean volume (Bld) [Entitic vol] 7.5 fL Normal 6.3-10.7 [facility] Comment on above: Performed By: #### P TT, CMP, MG, HS TROP, CBC, T4T, TSH3, PT #### [facility] [address] Platelets (Bld) [#/Vol] 191 10*3/uL Normal 150-450 [facility] Comment on above: Performed By: #### P TT, CMP, MG, HS TROP, CBC, T4T, TSH3, PT #### [address] RBC (Bld) [#/Vol] 4.46 10*6/uL Normal 3.60-5.00 [facility] Comment on above: Performed By: #### P TT, CMP, MG, HS TROP, CBC, T4T, TSH3, PT #### [address] WBC (Bld) [#/Vol] 5.7 10*3/uL Normal 3.8-11.6 [facility] Comment on above: Performed By: #### P TT, CMP, MG, HS TROP, CBC, T4T, TSH3, PT #### [address] Comprehensive Metabolic Pane theresa 07-31-2023 Albumin [Mass/Vol] 3.5 g/dL Normal 3.5-5.7 [facility] Comment on above: Performed By: #### P TT, CMP, MG, HS TROP, CBC, T4T, TSH3, PT #### [address] Albumin/Globulin [Mass ratio] 1.3 {ratio} Normal [facility] Comment on above: Performed By: #### P TT, CMP, MG, HS TROP, CBC, T4T, TSH3, PT #### [facility] [address] [place] [address] ALP [Catalytic activity/Vol] 65 U/L Normal 34-104 [facility] Comment on above: Performed By: #### P TT, CMP, MG, HS TROP, CBC, T4T, TSH3, PT #### [address] ALT [Catalytic activity/Vol] 14 U/L Normal 7-52 [facility] Comment on above: Performed By: #### P TT, CMP, MG, HS TROP, CBC, T4T, TSH3, PT #### [address] Anion gap [Moles/Vol] 7.9 mmol/L Normal 6.0-15.0 [facility] Comment on above: Performed By: #### P TT, CMP, MG, HS TROP, CBC, T4T, TSH3, PT #### [address] AST [Catalytic activity/Vol] 16 U/L Normal 13-39 [facility] Comment on above: Performed By: #### P TT, CMP, MG, HS TROP, CBC, T4T, TSH3, PT #### [address] Bilirubin [Mass/Vol] 0.3 mg/dL Normal 0.3-1.0 [facility] Comment on above: Performed By: #### P TT, CMP, MG, HS TROP, CBC, T4T, TSH3, PT #### [address] Calcium [Mass/Vol] 9.0 mg/dL Normal 8.6-10.3 [facility] Comment on above: Performed By: #### P TT, CMP, MG, HS TROP, CBC, T4T, TSH3, PT #### [address] Chloride [Moles/Vol] 110 mmol/L High 98-107 [facility] Comment on above: Performed By: #### P TT, CMP, MG, HS TROP, CBC, T4T, TSH3, PT #### [facility] [address] CO2 [Moles/Vol] 25.8 mmol/L Normal 21.0-31.0 [facility] Comment on above: Performed By: #### P TT, CMP, MG, HS TROP, CBC, T4T, TSH3, PT #### [facility] [address] Creatinine [Mass/Vol] 0.67 mg/dL Normal 0.60-1.20 [facility] Comment on above: Performed By: #### P TT, CMP, MG, HS TROP, CBC, T4T, TSH3, PT #### [facility] [address] Creatinine Clr Calc Pharmacy 47.00 [facility] Comment on above: Performed By: #### P TT, CMP, MG, HS TROP, CBC, T4T, TSH3, PT #### [facility] [address] GFR/1.73 sq M.predicted MDRD (S/P/Bld) [Vol rate/Area] mL/min/{1.73_m2} [facility] Comment on above: Performed By: #### P TT, CMP, MG, HS TROP, CBC, T4T, TSH3, PT #### [facility] [address] Globulin (S) [Mass/Vol] 2.8 g/dL [facility] Comment on above: Performed By: #### P TT, CMP, MG, HS TROP, CBC, T4T, TSH3, PT #### [facility] [address] Glucose [Mass/Vol] 108 mg/dL High 70-100 [facility] Comment on above: Result Comment: [facility] Glucose Reference Range is dependent on time and content of last meal. Glucose of more than 200 mg/dL in a nonstressed, ambulatory subject supports the diagnosis of Diabetes Mellitus. ADA recommended reference range Performed By: #### P TT, CMP, MG, HS TROP, CBC, T4T, TSH3, PT #### [address] Potassium [Moles/Vol] 3.7 mmol/L Normal 3.5-5.1 [facility] Comment on above: Performed By: #### P TT, CMP, MG, HS TROP, CBC, T4T, TSH3, PT #### [address] Protein [Mass/Vol] 6.3 g/dL Low 6.4-8.9 [facility] Comment on above: Performed By: #### P TT, CMP, MG, HS TROP, CBC, T4T, TSH3, PT #### [address] Sodium [Moles/Vol] 140 mmol/L Normal 136-145 [facility] Comment on above: Performed By: #### P TT, CMP, MG, HS TROP, CBC, T4T, TSH3, PT #### [address] Urea nitrogen [Mass/Vol] 14 mg/dL Normal 7-25 [facility] Comment on above: Performed By: #### P TT, CMP, MG, HS TROP, CBC, T4T, TSH3, PT #### [address] Dipstick and Microscopicon 1 10-01-2022 Appearance (U) Cloudy Critically abnormal Clear [facility] Comment on above: Order Comment: Name Collection Type:: Clean-Voided Midstream Performed By: #### P TT, CMP, MG, HS TROP, CBC, T4T, TSH3, PT #### [address] Bacteria,Urine None Seen Normal None Seen [facility] Comment on above: Order Comment: Name Collection Type:: Clean-Voided Midstream Performed By: #### P TT, CMP, MG, HS TROP, CBC, T4T, TSH3, PT #### [address] Bilirubin,Urine Negative Normal Negative [facility] Comment on above: Order Comment: Name Collection Type:: Clean-Voided Midstream Performed By: #### P TT, CMP, MG, HS TROP, CBC, T4T, TSH3, PT #### [facility] [address] [place] [address] [place] Calcium Oxalate Crystals,Urine 2+ Normal [facility] Comment on above: Order Comment: Name Collection Type:: Clean-Voided Midstream Performed By: #### P TT, CMP, MG, HS TROP, CBC, T4T, TSH3, PT #### [facility] [address] [place] [id number] [place] Coarse Granular Casts,Urine 1-2 High 0-1 [facility] Comment on above: Order Comment: Name Collection Type:: Clean-Voided Midstream Performed By: #### P TT, CMP, MG, HS TROP, CBC, T4T, TSH3, PT #### [facility] [address] [place] [address] Color (U) Dark Yellow Critically abnormal Yellow [facility] Comment on above: Order Comment: Name Collection Type:: Clean-Voided Midstream Performed By: #### P TT, CMP, MG, HS TROP, CBC, T4T, TSH3, PT #### [facility] [address] [place], [place] [id number] [place] Glucose Ql (U) Normal Normal Normal [facility] Comment on above: Order Comment: Name Collection Type:: Clean-Voided Midstream Performed By: #### P TT, CMP, MG, HS TROP, CBC, T4T, TSH3, PT #### [facility] [address] [place], [place] [id number] [place] Hyaline Casts,Urine 10-19 High 0-1 [facility] Comment on above: Order Comment: Name Collection Type:: Clean-Voided Midstream Performed By: #### P TT, CMP, MG, HS TROP, CBC, T4T, TSH3, PT #### [facility] [address] [place] [id number] [place] Ketones Ql (U) Trace High Negative [facility] Comment on above: Order Comment: Name Collection Type:: Clean-Voided Midstream Performed By: #### P TT, CMP, MG, HS TROP, CBC, T4T, TSH3, PT #### [address] Leukocyte esterase Test strip Ql (U) 2+ High Negative [facility] Comment on above: Order Comment: Name Collection Type:: Clean-Voided Midstream Performed By: #### P TT, CMP, MG, HS TROP, CBC, T4T, TSH3, PT #### [address] Nitrite,Urine Negative Normal Negative [facility] Comment on above: Order Comment: Name Collection Type:: Clean-Voided Midstream Performed By: #### P TT, CMP, MG, HS TROP, CBC, T4T, TSH3, PT #### [address] Occult Blood,Urine Negative Normal Negative [facility] Comment on above: Order Comment: Name Collection Type:: Clean-Voided Midstream Result Comment: PERF ORMED BY: [place] [address] PATHOLOGIST [employer] SHERRI DIETZ M.D. Performed By: #### P TT, CMP, MG, HS TROP, CBC, T4T, TSH3, PT #### [address] Othe Crystals,Urine None Seen Normal [facility] Comment on above: Order Comment: Name Collection Type:: Clean-Voided Midstream Performed By: #### P TT, CMP, MG, HS TROP, CBC, T4T, TSH3, PT #### [address] pH (U) 5.5 [pH] Normal 5.0-9.0 [facility] Comment on above: Order Comment: Name Collection Type:: Clean-Voided Midstream Performed By: #### P TT, CMP, MG, HS TROP, CBC, T4T, TSH3, PT #### [address] [address] [place] Protein,Urine Trace High Negative [facility] Comment on above: Order Comment: Name Collection Type:: Clean-Voided Midstream Performed By: #### P TT, CMP, MG, HS TROP, CBC, T4T, TSH3, PT #### [facility] [address] [place] [address] RBC,Urine 3-4 Normal 0-4 [facility] Comment on above: Order Comment: Name Collection Type:: Clean-Voided Midstream Performed By: #### P TT, CMP, MG, HS TROP, CBC, T4T, TSH3, PT #### [facility] [address] [place] [address] Renal Epithelial Cells,Urine None Seen Normal 0-1 [facility] Comment on above: Order Comment: Name Collection Type:: Clean-Voided Midstream Performed By: #### P TT, CMP, MG, HS TROP, CBC, T4T, TSH3, PT #### [facility] [address] [place] [address] Specificy [place],Urine 1.029 Normal 1.001-1.030 [facility] Comment on above: Order Comment: Name Collection Type:: Clean-Voided Midstream Performed By: #### P TT, CMP, MG, HS TROP, CBC, T4T, TSH3, PT #### [facility] [address] [place] [address] Squamous Epithelial Cell,Urine 5-9 High 0-2 [facility] Comment on above: Order Comment: Name Collection Type:: Clean-Voided Midstream Performed By: #### P TT, CMP, MG, HS TROP, CBC, T4T, TSH3, PT #### [facility] [address] [place] [address] Urobilinogen,Urine Normal Normal Normal [facility] Comment on above: Order Comment: Name Collection Type:: Clean-Voided Midstream Performed By: #### P TT, CMP, MG, HS TROP, CBC, T4T, TSH3, PT #### [facility] [address] [place] [address] WBC,Urine 10-19 High 0-4 [facility] Comment on above: Order Comment: Name Collection Type:: Clean-Voided Midstream Performed By: #### P TT, CMP, MG, HS TROP, CBC, T4T, TSH3, PT #### [facility] [address] [place] [address] White Blood Cell Casts,Urine 1-2 High None Seen [facility] Comment on above: Order Comment: Name Collection Type:: Clean-Voided Midstream Result Comment: PERF ORMED BY: [place] [address] PATHOLOGIST [employer] SHERRI DIETZ M.D. Performed By: #### P TT, CMP, MG, HS TROP, CBC, T4T, TSH3, PT #### [facility] [address] [place] [address] ECG 12 lead ECGon 07-31-2023 ECG 12 lead ECG [facility] [address] Electrocardiograph Report Signed Patient: Ivonne Cespedes MR#: [id number] 10 : 1955 Acct:[id number] Age/Sex: 68 / F ADM Date: 07/31/23 Loc: ER Room: Type: [facility] ER Attending Dr: Ordering Provider: Beverley Ngo APRN Date of Service: 07/31/2302/15/1445 ECG/ECG 12 lead ECG: Dizziness Copies to: Test Reason : Blood Pressure : / mmHG Vent. Rate : 103 BPM Atrial Rate : 103 BPM P-R Int : 162 ms QRS Dur : 064 ms QT Int : 332 ms P-R-T Axes : 070 053 066 degrees QTc Int : 434 ms Sinus tachycardia Otherwise normal ECG When compared with ECG of 06-OCT-2020 10:25, No significant change was found Confirmed by Michoacano Angela DO ([id number]) on 08/01/2023 2:47:50 PM Referred By: Electronically Signed By:Michoacano Angela DO Transcribed By: MUS Signed By Michoacano Angela DO 3 1448 Normal [facility] [id number] 07-31-2023 ECG01 Ventricular Rate : 148 BPM Atrial Rate : 150 BPM QRS Duration : 112 ms Q-T Interval : 308 ms QTC Calculation(Bazett) : 483 ms Calculated R [place] : 53 degrees Calculated T [place] : 74 degrees SUPRAVENTRICULAR TACHYCARDIA WITH SHORT RP INTERVAL, CONSIDER AVNRT ABNORMAL ECG Confirmed by CAITIE LAND MD ([id number]) on 08/30/2023 9:42:57 AM NAME : IVONNE CESPEDES PID : [id number] : 1955 Gender : Female Race : ORD : Procedure Date : Jul 31 2023 15:22:43 Edit Date : Aug 30 2023 09:43:01 Diagnosis: SUPRAVENTRICULAR TACHYCARDIA WITH SHORT RP INTERVAL, CONSIDER AVNRT ABNORMAL ECG Confirmed by CAITIE LAND MD ([id number]) on 08/30/2023 9:42:57 AM Test Reason : Location : [facility] [place] [facility] [place] Overread By : CAITIE LAND MD Edited By : CAITIE LAND MD Referred By : MAIKEL LUNSFROD Acquired by : , Normal [facility] Magnesiumon 07-31-2023 Magnesium [Mass/Vol] 2.0 mg/dL Normal 1.9-2.7 [facility] Comment on above: Performed By: #### P TT, CMP, MG, HS TROP, CBC, T4T, TSH3, PT #### [facility] [address] [place], [place] [id number] [facility] Partial Thromboplastin Timeo n 07-31-2023 aPTT Coag (Bld) [Time] 31.1 s Normal 25.1-36.5 [facility] Comment on above: Result Comment: A he matocrit value greater than 55% may lead to inaccurate results in coagulation testing. Patients having hematocrit values >55% require a special collection tube for coagulation studies. Please contact the laboratory at [phone] for redraw instructions. PERFORMED BY: [place] [id number] PATHOLOGIST [employer] SHERRI DIETZ M.D. Performed By: #### P TT, CMP, MG, HS TROP, CBC, T4T, TSH3, PT #### [facility] [address] [place], [place] [id number] [place] Prothrombin Time INRon 07-31 INR Coag (PPP) [Relative time] 0.9 {INR} Normal [facility] Comment on above: Result Comment: INR Therapeutic Range A) Pre- and Peroperative OAT started two weeks before surgery. NOT HIP SURGERY: 1.5 - 2.5 HIP SURGERY: 2 - 3 B) Primary and secondary prevention of venous THROMBOSIS: 2 - 3 C) Active venous thrombosis, pulmonary embolism and prevention of recurrent venous thrombosis: 2 - 3 D) Prevention of arterial thromboembolism including patients with mechanical heart valves: 3 - 4.5 Performed By: #### P TT, CMP, MG, HS TROP, CBC, T4T, TSH3, PT #### [facility] [address] [place] [address] PT Coag (PPP) [Time] 11.3 s Normal 9.0-12.9 [facility] Comment on above: Result Comment: A he matocrit value greater than 55% may lead to inaccurate results in coagulation testing. Patients having hematocrit values >55% require a special collection tube for coagulation studies. Please contact the laboratory at [phone] for redraw instructions. Performed By: #### P TT, CMP, MG, HS TROP, CBC, T4T, TSH3, PT #### [address] Thyroid Stimulating Hormoneo n 07-31-2023 TSH Qn 6.53 m[IU]/L High 0.45-5.33 [facility] Comment on above: Result Comment: PERF ORMED BY: [place] [address] PATHOLOGIST [employer] SHERRI DIETZ M.D. Performed By: #### P TT, CMP, MG, HS TROP, CBC, T4T, TSH3, PT #### [address] Thyroxine (T4) Totalon 07-31 T4 [Mass/Vol] 9.15 ug/dL Normal 5.39-11.82 [facility] Comment on above: Performed By: #### P TT, CMP, MG, HS TROP, CBC, T4T, TSH3, PT #### [facility] [address] [place] [id number] [place] Troponin I High Sensitivityo n 07-31-2023 Troponin I High Sensitivity 7.0 pg/mL Normal 0.0-15.0 [facility] Comment on above: Result Comment: PERF ORMED BY: [facility] [address] [facility] [place] [place] [address] PATHOLOGIST [employer] SHERRI DIETZ M.D. Performed By: #### P TT, CMP, MG, HS TROP, CBC, T4T, TSH3, PT #### [facility] [address] [place] [id number] [facility] Urine Cultureon 07-31-2023 Bacteria identified Cx Nom (U) ORGANISM: Escherichia coli (O:ESCCOL) [place] Count 15,000 Aerobic DAVIN Charge ([id number]) ------ SUSCEPTIBILITY ----- ORGANISM: O:ESCCOL ANTIBIOTIC INTERPRETATION DAVIN Amikacin S <16 Amoxacillin/K Clavulanate S <8 Ampicillin S <8 Ampicillin/Sulbacta m S <4 Aztreonam S <4 Cefazolin S <2 Cefepime S <2 Ceftazidime S <1 Ceftazidime/Avibact am S <4 Ceftolozane/Tazobac ramirez S <2 Ceftriaxone S <1 Cefuroxime S <4 Ciprofloxacin S <0.25 Ertapenem S <0.5 Gentamicin S <2 Levofloxacin S <0.5 Meropenem S <1 Meropenem/Vaborbact am S <2 Nitrofurantoin S <32 Piperacillin/Tazoba ctam S <8 Tetracycline S <4 Tigecycline S <2 Tobramycin S <2 Trimethoprim/Sulfam ethoxazole S <0.5 S = SUSCEPTIBLE I = INTERMEDIATE R = RESISTANT BLANK = DATA NOT AVAILABLE, OR DRUG NOT ADVISABLE OR TESTED R* = RESISTANCE DUE TO EXTENDED SPECTRUM BETA-LACTAMASES ESBL = EXTENDED SPECTRUM BETA-LACTAMASE TFG = THYMIDINE-DEPENDENT STRAIN OTTO = BETA-LACTAMASE POSITIVE IB = INDUCIBLE BETA-LACTAMASE. APPEARS IN PLACE OF 'S' WITH SPECIES KNOWN TO POSSESS INDUCIBLE BETA-LACTAMASES. POTENTIALLY THEY MAY BECOME RESISTANT TO ALL B-LACTAM DRUGS. PERFORMED BY: [place] [address] PATHOLOGIST [employer] SHERRI DIETZ M.D. [facility] Comment on above: Performed By: #### P TT, CMP, MG, HS TROP, CBC, T4T, TSH3, PT #### [address] XR chest 2V*on 07-31-2023 XR chest 2V* [facility] [place] [address] [place] [address] XRay Report Signed Patient: Ivonne Cespedes MR#: [id number] 10 : 1955 Acct:[id number] Age/Sex: 68 / F ADM Date: 07/31/23 Loc: ER Room: Type: [facility] ER Attending Dr: Copies to: Beverley Ngo APRN Ordering Provider: Beverley Ngo APRN Date of Service: 07/31/23 XR/XR chest 2V*: Dizziness Chest 2 views CLINICAL HISTORY: Dizziness lightheadedness SVT on arrival. COMPARISON: None FINDINGS: Heart normal in size. Evidence old granulomatous disease. No consolidation pneumothorax pleural effusion or free air. XR/XR chest 2V* IMPRESSION: NO ACUTE CARDIOPULMONARY ABNORMALITY. Impression dictated by: Max Welsh Jr., D.O.07/31/2023 3:33 PM Dictation Location: [place] [address] Transcribed By: [facility] 07/31/23 1533 Dictated By: Max Welsh Jr, DO 07/31/23 1523 Signed By: 07/31/23 1533 [facility] Consultation Noteon 07-26-20 Consultation Note [id number] #[id number] [facility] Gastroenterology Office/Clin ic Noteon 07-26-2023 Gastroenterology Office/Clinic Note Chief Complaint Abdominal pain. HPI Staff This is a 68 year old female who presents today for a follow-up from 06/26/23. History of Present Illness Patient is a 68-year-old female who presents for follow-up. Patient was previously evaluated 06/26/2023 and has history of pancreatic insufficiency?previ ous fecal pancreatic elastase testing 05/2022 was low at 88. Patient also with history of fatty liver disease and IBS with diarrhea. Patient was previously evaluated by Dr. Hameed 09/2022 for RUQ and epigastric pain and advised to follow-up with [facility]. Previous labs 10/2022 revealed normal H&H, normal BUN, normal creatinine, normal liver enzymes and normal vitamin A and E. Recent B12 01/2023 had improved at 144- was previously referred to hematology for possible IM B12 injections. Patient had previously reported she was not taking Librax or Questran. Previous ultrasound of pelvis 09/2022 was negative. Previous colonoscopy in 2015 revealed suboptimal prep, diverticulosis, transverse colon polyp that pathology revealed was inflammatory reactive polyp and was to repeat colonoscopy in 1 year. Repeat colonoscopy 04/2021 revealed normal terminal ileum, diverticulosis, hemorrhoids, hyperplastic polyp removed from descending colon and was recommended to have repeat colonoscopy in 2025. Patient had previous CT 06/2021 that showed enlarged right retrocrural lymph node- to follow-up with PCP regarding, and no evidence of diverticulitis. Patient had repeat CT 01/2022 at [facility] that showed hepatomegaly and hepatic steatosis. Patient with family history colon cancer?patient's sister. Patient had previous FibroScan 03/2022 that revealed F0?F1 fibrosis, no steatosis. Patient was previously advised regarding use of Creon. Previous FibroScan 02/2023 revealed mild steatosis, F0?F1 fibrosis. Patient had reported during most recent visit with me that she was having abdominal cramping in the LUQ and lower abdomen that was occurring daily. She reported history of back surgeries and explained with back pain in her abdomen when also be painful. She reported having loose/watery stools immediately after eating. She also reported a cough off and on over the last year and epigastric region. She reported she was taking [id number] pancreatic enzymes and did not wish to take Creon anymore. Patient also reported she was not taking Questran however was interested in trying Questran again. Patient was ordered repeat fecal pancreatic elastase and was educated that I was unable to recommend [id number] pancreatic enzymes as they are not approved by FDA. Patient was educated to start Questran daily. Had discussed MRCP or repeat imaging to further evaluate patient's pain however she had refused. Patient saw dietitian at outside facility 07/03/2023 and note indicated for patient to discuss Creon with office here in GI regarding her pancreatic insufficiency. During today's visit, patient reports she is doing better. She explains she is taking 1/2 packet of questran BID. Is taking Benefiber 1 teaspoon daily. She is having formed BMs currently. Is having 1 formed BM daily. Fecal urgency has improved. Abdominal cramping has improved. She is not interested in Creon at this time. Denies black/bloody stools, nausea/vomiting, fevers/chills, and denies having any other GI complaints. Review of Systems PHQ Score Initial Depression Screen Score: 0 SCORE ROS - Provider Constitutional: no fever, no chills. Skin: no Jaundice. ENMT: Denies dysphagia and heartburn. Respiratory: no shortness of breath. Cardiovascular: no chest pain. Gastrointestinal: no nausea, no vomiting, no diarrhea, no GI bleeding. Physical Exam Vitals & Measurements T: 36.6 ?C(Temporal Artery) HR: 74(Peripheral) BP: 130/88 HT: 60 in HT: 152 cm WT: 54.7 kg WT: 120.34 lb BMI: 23.68 General: Well developed, well nourished, in no acute distress Head: Normocephalic/atrau matic Lungs: Normal respiratory effort and clear to auscultation Cardio: Regular rate and rhythm, normal S1 and S2, no murmur, no rub Abdomen: Soft, non-distended, non-tender. Normoactive bowel sounds present in all 4 abdominal quadrants, bilaterally. Mental Status: Alert and oriented x3. Normal mood and affect Assessment/Plan 1. 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 cholecystectomy in 2011. Improved, formed with Questran and fiber. Fecal urgency has improved. Continue 1/2 packet of Questran BID-instructed regarding use. Educated to increase fiber to 2 teaspoons daily. 2. Pancreatic insufficiency (K86.89: Other specified diseases of pancreas) History of pancreatic insufficiency?previ ous fecal pancreatic elastase testing 05/2022 was low at 88. Previous labs 10/2022 revealed normal H&H, normal BUN, normal creatinine, normal liver enzymes and normal vitamin A and E. Recent B12 01/2023 had improved at 144. During previous evaluation, patient explained Creon was too expensive and did not want assistance re (more content not included)... Normal [facility] Comment on above: Result Comment: Elec tronically Signed By: Rosa Shearer CNP.[email or web address]\Date and Time Signed: 07/26/23 14:25 EST Patient Educationon 07-26-20 Patient Education Gastroenterology High-Fiber Eating Plan Fiber, also called dietary fiber, is a type of carbohydrate. It is found foods such as fruits, vegetables, whole grains, and beans. A high-fiber diet can have many health benefits. Your health care provider may recommend a high-fiber diet to help: ? Prevent constipation. Fiber can make your bowel movements more regular. ? Lower your cholesterol. ? Relieve the following conditions: ? Inflammation of veins in the anus (hemorrhoids). ? Inflammation of specific areas of the digestive tract (uncomplicated diverticulosis). ? A problem of the large intestine, also called the colon, that sometimes causes pain and diarrhea (irritable bowel syndrome, or IBS). ? Prevent overeating as part of a weight-loss plan. ? Prevent heart disease, type 2 diabetes, and certain cancers. What are tips for following this plan? Reading food labels ? Check the nutrition facts label on food products for the amount of dietary fiber. Choose foods that have 5 grams of fiber or more per serving. ? The goals for recommended daily fiber intake include: ? Men (age 50 or younger): 34?38 g. ? Men (over age 50): 28?34 g. ? Women (age 50 or younger): 25?28 g. ? Women (over age 50): 22?25 g. Your daily fiber goal is g. Shopping ? Choose whole fruits and vegetables instead of processed forms, such as apple juice or applesauce. ? Choose a wide variety of high-fiber foods such as avocados, lentils, oats, and kidney beans. ? Read the nutrition facts label of the foods you choose. Be aware of foods with added fiber. These foods often have high sugar and sodium amounts per serving. Cooking ? Use whole-grain flour for baking and cooking. ? Cook with brown rice instead of white rice. Meal planning ? Start the day with a breakfast that is high in fiber, such as a cereal that contains 5 g of fiber or more per serving. ? Eat breads and cereals that are made with whole-grain flour instead of refined flour or white flour. ? Eat brown rice, bulgur wheat, or millet instead of white rice. ? Use beans in place of meat in soups, salads, and pasta dishes. ? Be sure that half of the grains you eat each day are whole grains. General information ? You can get the recommended daily intake of dietary fiber by: ? Eating a variety of fruits, vegetables, grains, nuts, and beans. ? Taking a fiber supplement if you are not able to take in enough fiber in your diet. It is better to get fiber through food than from a supplement. ? Gradually increase how much fiber you consume. If you increase your intake of dietary fiber too quickly, you may have bloating, cramping, or gas. ? Drink plenty of water to help you digest fiber. ? Choose high-fiber snacks, such as berries, raw vegetables, nuts, and popcorn. What foods should I eat? Fruits Berries. Pears. Apples. Oranges. Avocado. Prunes and raisins. Dried figs. Vegetables Sweet potatoes. Spinach. Kale. Artichokes. Cabbage. Broccoli. Cauliflower. Green peas. Carrots. Squash. Grains Whole-grain breads. Multigrain cereal. Oats and oatmeal. Brown rice. Barley. Bulgur wheat. Millet. Quinoa. Bran muffins. Popcorn. [place] wafer crackers. Meats and other proteins [place] beans, kidney beans, and foss beans. Soybeans. Split peas. Lentils. Nuts and seeds. Dairy Fiber-fortified yogurt. Beverages Fiber-fortified soy milk. Fiber-fortified orange juice. Other foods Fiber bars. The items listed above may not be a complete list of recommended foods and beverages. Contact a dietitian for more information. What foods should I avoid? Fruits Fruit juice. Cooked, strained fruit. Vegetables Fried potatoes. Canned vegetables. Well-cooked vegetables. Grains White bread. Pasta made with refined flour. White rice. Meats and other proteins Fatty cuts of meat. Fried chicken or fried fish. Dairy Milk. Yogurt. Cream cheese. Sour cream. Fats and oils Natural Steps. Beverages Soft drinks. Other foods Cakes and pastries. The items listed above may not be a complete list of foods and beverages to avoid. Talk with your dietitian about what choices are best for you. Summary ? Fiber is a type of carbohydrate. It is found in foods such as fruits, vegetables, whole grains, and beans. ? A high-fiber diet has many benefits. It can help to prevent constipation, lower blood cholesterol, aid weight loss, and reduce your risk of heart disease, diabetes, and certain cancers. ? Increase your intake of fiber gradually. Increasing fiber too quickly may cause cramping, bloating, and gas. Drink plenty of water while you increase the amount of fiber you consume. ? The best sources of fiber include whole fruits and vegetables, whole grains, nuts, seeds, and beans. This information is not intended to replace advice given to you by your health care provider. Make sure you discuss any questions you have with your health care provider. Document Revised: (more content not included)... Normal [facility] CNNURSEon 07-03-2023 [facility] Nurse Visit (JACKLYN) ---- IVONNE CESPEDES ([id number]) 1955 F Date Time Provider Department 07/03/23 2:15 PM [facility] NURSE ERVIN VILLASENOR During your visit today, we recorded the following information about you: Temperature Pulse Respiration Blood pressure 97.9 degrees 75/minute 16/minute 134/90 Weight Height 54 kg 1.524 m Carri Walker 07/03/2023 2:04 PM Signed Patient Identification confirmed: yes. Injection given and documented on OCT per provider order. 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 - loperamide (IMODIUM) 2 mg cap(s) every other day. - sertraline (ZOLOFT) 50 mg tablet Take 50 mg by mouth once daily. - calcium carbonate (CALCIUM 500 ORAL) Take by mouth. - Cholecalciferol, Vitamin D3, (VITAMIN D) 1,000 unit cap Take 1,000 Units by mouth once daily. 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 HPI Staff This is a 68 year old female who presents today for a follow-up from 03/26/23 office visit. History of Present Illness Patient is a 68-year-old female who presents for follow-up. Patient was previously evaluated 03/26/2023 and has history of pancreatic insufficiency?previ ous fecal pancreatic elastase testing 05/2022 was low at 88. Patient also with history of fatty liver disease and IBS with diarrhea. Patient was previously evaluated by Dr. Hameed 09/2022 for RUQ and epigastric pain and advised to follow-up with [facility]. Previous labs 10/2022 revealed normal H&H, normal BUN, normal creatinine, normal liver enzymes and normal vitamin A and E. Recent B12 01/2023 had improved at 144- was previously referred to hematology for possible IM B12 injections. Patient had previously reported she was not taking Librax or Questran. FH colon cancer- patient's sister. Patient had previous FibroScan 03/2022 that revealed F0?F1 fibrosis, no steatosis. Patient was previously advised regarding use of Creon. Previous FibroScan 02/2023 revealed mild steatosis, F0?F1 fibrosis. Patient reported during most recent visit with me that she was still having lower abdominal cramping and loose stools. She reported she would drink coffee and had loose stools and was having 3-4 bowel movements daily. She explained Bentyl as needed helped her abdominal cramping. She reported Creon was too expensive and did not want assistance regarding Creon and did not want to take. Patient was educated regarding use of fiber supplementation daily. Patient also was educated regarding align probiotics and to keep food diary to evaluate for food triggers. Previous ultrasound of pelvis 09/2022 was negative. Previous colonoscopy in 2015 revealed suboptimal prep, diverticulosis, transverse colon polyp that pathology revealed was inflammatory reactive polyp and was to repeat colonoscopy in 1 year. Repeat colonoscopy 04/2021 revealed normal terminal ileum, diverticulosis, hemorrhoids, hyperplastic polyp removed from descending colon and was recommended to have repeat colonoscopy in 2025. Patient had previous CT 06/2021 that showed enlarged right retrocrural lymph node- to follow-up with PCP regarding, and no evidence of diverticulitis. Patient had repeat CT 01/2022 at [facility] that showed hepatomegaly and hepatic steatosis. During today's visit, patient reports she has been having abdominal cramping in LUQ and lower abdomen is occurring daily- worse in lower abdomen. She explains she has hx. back surgeries and explains with back pain, her abdomen will also be painful. She explains having loose/watery stools immediately after eating. She explains she will have loose stools with coffee. She reports having ache off/on over the last year in epigastric region. Is currently having 3 BMs daily. Has some formed stools. She explains she is taking pancreatic enzymes OTC and does not want to take Creon anymore. Is not currently taking questran however, is interested in trying again. Denies use of fiber supplementation. Denies black/bloody stools, nausea/vomiting, fevers/chills, and denies having any other GI complaints. Review of Systems ROS - Provider Constitutional: no fever, no chills. Skin: no Jaundice. ENMT: Denies dysphagia and heartburn. Respiratory: no shortness of breath. Cardiovascular: no chest pain. Gastrointestinal: no nausea, no vomiting, yes loose/watery stools, no GI bleeding. Physical Exam Vitals & Measurements T: 36.5 ?C(Temporal Artery) HR: 70(Peripheral) BP: 138/82 HT: 60 in HT: 152 cm WT: 53.3 kg WT: 117.26 lb BMI: 23.07 General: Well developed, well nourished, in no acute distress Head: Normocephalic/atrau matic Lungs: Normal respiratory effort and clear to auscultation Cardio: Regular rate and rhythm, normal S1 and S2, no murmur, no rub Abdomen: Soft, non-distended, non-tender. Normoactive bowel sounds present in all 4 abdominal quadrants, bilaterally. Mental Status: Alert and oriented x3. Normal mood and affect Assessment/Plan 1. Pancreatic insufficiency (K86.89: Other specified diseases of pancreas) History of pancreatic insufficiency?previ ous fecal pancreatic elastase testing 05/2022 was low at 88. Previous labs 10/2022 revealed normal H&H, normal BUN, normal creatinine, normal liver enzymes and normal vitamin A and E. Recent B12 01/2023 had improved at 144. During previous evaluation, patient explained Creon was too expensive and did not want assistance regarding Creon and did not want to take. Patient was educated regarding use of fiber supplementation daily. Patient also was educated regarding align probiotics and to keep food diary to evaluate for food triggers. Previous colonoscopy in 2015 revealed suboptimal prep, diverticulosis, transverse colon polyp that pathology revealed was inflammatory reactive polyp and was to repeat colonoscopy in 1 year. Repeat colonoscopy 04/2021 revealed normal terminal ileum, d (more content not included)... Normal [facility] Comment on above: Result Comment: Elec tronically Signed By: Rosa Shearer CNP\.br\Date and Time Signed: 06/26/23 13:13 EDT Patient Educationon 06-26-20 Patient Education Oncology Colon Polyps Colon polyps are tissue growths inside the colon, which is part of the large intestine. They are one of the types of polyps that can grow in the body. A polyp may be a round bump or a mushroom-shaped growth. You could have one polyp or more than one. Most colon polyps are noncancerous (benign). However, some colon polyps can become cancerous over time. Finding and removing the polyps early can help prevent this. What are the causes? The exact cause of colon polyps is not known. What increases the risk? The following factors may make you more likely to develop this condition: ? Having a family history of colorectal cancer or colon polyps. ? Being older than 45 years of age. ? Being younger than 45 years of age and having a significant family history of colorectal cancer or colon polyps or a genetic condition that puts you at higher risk of getting colon polyps. ? Having inflammatory bowel disease, such as ulcerative colitis or Crohn's disease. ? Having certain conditions passed from parent to child (hereditary conditions), such as: ? Familial adenomatous polyposis (FAP). ? Gonzalez syndrome. ? Turcot syndrome. ? Peutz?Jeghers syndrome. ? MUTYH-associated polyposis (MAP). ? Being overweight. ? Certain lifestyle factors. These include smoking cigarettes, drinking too much alcohol, not getting enough exercise, and eating a diet that is high in fat and red meat and low in fiber. ? Having had childhood cancer that was treated with radiation of the abdomen. What are the signs or symptoms? Many times, there are no symptoms. If you have symptoms, they may include: ? Blood coming from the rectum during a bowel movement. ? Blood in the stool (feces). The blood may be bright red or very dark in color. ? Pain in the abdomen. ? A change in bowel habits, such as constipation or diarrhea. How is this diagnosed? This condition is diagnosed with a colonoscopy. This is a procedure in which a lighted, flexible scope is inserted into the opening between the buttocks (anus) and then passed into the colon to examine the area. Polyps are sometimes found when a colonoscopy is done as part of routine cancer screening tests. How is this treated? This condition is treated by removing any polyps that are found. Most polyps can be removed during a colonoscopy. Those polyps will then be tested for cancer. Additional treatment may be needed depending on the results of testing. Follow these instructions at home: Eating and drinking ? Eat foods that are high in fiber, such as fruits, vegetables, and whole grains. ? Eat foods that are high in calcium and vitamin D, such as milk, cheese, yogurt, eggs, liver, fish, and broccoli. ? Limit foods that are high in fat, such as fried foods and desserts. ? Limit the amount of red meat, precooked or cured meat, or other processed meat that you eat, such as hot dogs, sausages, kaiser, or meat loaves. ? Limit sugary drinks. Lifestyle ? Maintain a healthy weight, or lose weight if recommended by your health care provider. ? Exercise every day or as told by your health care provider. ? Do not use any products that contain nicotine or tobacco, such as cigarettes, e-cigarettes, and chewing tobacco. If you need help quitting, ask your health care provider. ? Do not drink alcohol if: ? Your health care provider tells you not to drink. ? You are , may be , or are planning to become . ? If you drink alcohol: ? Limit how much you use to: ? 0?1 drink a day for women. ? 0?2 drinks a day for men. ? Know how much alcohol is in your drink. In the [place] one drink equals one 12 oz bottle of beer (355 mL), one 5 oz glass of wine (148 mL), or one 1? oz glass of hard liquor (44 mL). General instructions ? Take ycik-qlx-ygyfeac and prescription medicines only as told by your health care provider. ? Keep all follow-up visits. This is important. This includes having regularly scheduled colonoscopies. Talk to your health care provider about when you need a colonoscopy. Contact a health care provider if: ? You have new or worsening bleeding during a bowel movement. ? You have new or increased blood in your stool. ? You have a change in bowel habits. ? You lose weight for no known reason. Summary ? Colon polyps are tissue growths inside the colon, which is part of the large intestine. They are one type of polyp that can grow in the body. ? Most colon polyps are noncancerous (benign), but some can become cancerous over time. ? This condition is diagnosed with a colonoscopy. ? This condition is treated by removing any polyps that are found. Most polyps can be removed during a colonoscopy. This information is not intended to replace advice given to you by your health care provider. Make sure you discuss any questions you have with your health care provider. Document Revised: 11/30/2020 D (more content not included)... Normal [facility] CBC W Auto Differential pane l (Bld)on 06-05-2023 Basophils (Bld) [#/Vol] 0.05 10*3/uL Normal <0.11 [facility] Comment on above: Order Comment: Speci men Type: BLOOD SPECIMENOrdering Facility: [facility] Address: [address] [place] [address] Performed By: #### 5 7021-8 ####[facility] LABCLIA [id number] [place] [address] Basophils/100 WBC (Bld) 0.9 % Normal [facility] Comment on above: Order Comment: Speci men Type: BLOOD SPECIMENOrdering Facility: [facility] Address: [address] [place] [address] Performed By: #### 5 7021-8 ####[facility] LABCLIA [id number] [place] [address] Differential cell count method Nom (Bld) Auto Normal [facility] Comment on above: Order Comment: Speci men Type: BLOOD SPECIMENOrdering Facility: [facility] Address: [address] [place] [address] Performed By: #### 5 7021-8 ####[facility] LABCLIA [id number] [place] [address] Eosinophils (Bld) [#/Vol] 0.23 10*3/uL Normal <0.46 [facility] Comment on above: Order Comment: Speci men Type: BLOOD SPECIMENOrdering Facility: [facility] Address: [address] [place] [address] Performed By: #### 5 7021-8 ####[facility] LABCLIA [id number] [place] [address] Eosinophils/100 WBC (Bld) 3.9 % Normal [facility] Comment on above: Order Comment: Speci men Type: BLOOD SPECIMENOrdering Facility: [facility] Address: [address] [place] [address] Performed By: #### 5 7021-8 ####[facility] LABCLIA [id number] [place] [address] Erythrocyte distribution width (RBC) [Ratio] 14.8 % Normal 11.5-15.0 [facility] Comment on above: Order Comment: Speci men Type: BLOOD SPECIMENOrdering Facility: [facility] Address: [address] [place] [address] Performed By: #### 5 7021-8 ####[facility] LABCLIA [id number] [place] [address] Hematocrit (Bld) [Volume fraction] 39.7 % Normal 36.0-46.0 [facility] Comment on above: Order Comment: Speci men Type: BLOOD SPECIMENOrdering Facility: [facility] Address: [address] [place] [address] Performed By: #### 5 7021-8 ####[facility] LABCLIA [id number] [place] [address] Hemoglobin (Bld) [Mass/Vol] 12.8 g/dL Normal 11.5-15.5 [facility] Comment on above: Order Comment: Speci men Type: BLOOD SPECIMENOrdering Facility: [facility] Address: [address] [place] [address] Performed By: #### 5 7021-8 ####[facility] LABCLIA [id number] [place] [address] Immature granulocytes (Bld) [#/Vol] 10*3/uL Normal <0.10 [facility] Comment on above: Order Comment: Speci men Type: BLOOD SPECIMENOrdering Facility: [facility] Address: [address] [place] [address] Performed By: #### 5 7021-8 ####[facility] LABCLIA [id number] [place] [address] Immature granulocytes/100 WBC (Bld) 0.2 % Normal [facility] Comment on above: Order Comment: Speci men Type: BLOOD SPECIMENOrdering Facility: [facility] Address: [address] [place] [address] Performed By: #### 5 7021-8 ####[facility] LABCLIA [id number] [place] [address] Lymphocytes (Bld) [#/Vol] 2.03 10*3/uL Normal 1.00-4.00 [facility] Comment on above: Order Comment: Speci men Type: BLOOD SPECIMENOrdering Facility: [facility] Address: [address] [place] [address] Performed By: #### 5 7021-8 ####[facility] LABCLIA [id number] [place] [address] Lymphocytes/100 WBC (Bld) 34.7 % Normal [facility] Comment on above: Order Comment: Speci men Type: BLOOD SPECIMENOrdering Facility: [facility] Address: [address] [place] [address] Performed By: #### 5 7021-8 ####[facility] LABCLIA [id number] [place] [address] MCH (RBC) [Entitic mass] 28.6 pg Normal 26.0-34.0 [facility] Comment on above: Order Comment: Speci men Type: BLOOD SPECIMENOrdering Facility: [facility] Address: [address] [place] [address] Performed By: #### 5 7021-8 ####[facility] LABCLIA [id number] [place] [address] MCHC (RBC) [Mass/Vol] 32.2 g/dL Normal 30.5-36.0 [facility] Comment on above: Order Comment: Speci men Type: BLOOD SPECIMENOrdering Facility: [facility] Address: [address] [place] [address] Performed By: #### 5 7021-8 ####[facility] LABCLIA [id number] [place] [address] MCV (RBC) [Entitic vol] 88.8 fL Normal 80.0-100.0 [facility] Comment on above: Order Comment: Speci men Type: BLOOD SPECIMENOrdering Facility: [facility] Address: [address] [place] [address] Performed By: #### 5 7021-8 ####[facility] LABCLIA [id number] [place] [address] Monocytes (Bld) [#/Vol] 0.54 10*3/uL Normal <0.87 [facility] Comment on above: Order Comment: Speci men Type: BLOOD SPECIMENOrdering Facility: [facility] Address: [address] [place] [address] Performed By: #### 5 7021-8 ####[facility] LABCLIA [id number] [place] [address] Monocytes/100 WBC (Bld) 9.2 % Normal [facility] Comment on above: Order Comment: Speci men Type: BLOOD SPECIMENOrdering Facility: [facility] Address: [address] [place] [address] Performed By: #### 5 7021-8 ####[facility] LABCLIA [id number] [place] [address] Neutrophils (Bld) [#/Vol] 2.99 10*3/uL Normal 1.45-7.50 [facility] Comment on above: Order Comment: Speci men Type: BLOOD SPECIMENOrdering Facility: [facility] Address: [address] [place] [address] Performed By: #### 5 7021-8 ####[facility] LABCLIA [id number] [place] [address] Neutrophils/100 WBC (Bld) 51.1 % Normal [facility] Comment on above: Order Comment: Speci men Type: BLOOD SPECIMENOrdering Facility: [facility] Address: [address] [place] [address] Performed By: #### 5 7021-8 ####[facility] LABCLIA [id number] [place] [address] Nucleated RBC (Bld) [#/Vol] 10*3/uL Normal <0.01 [facility] Comment on above: Order Comment: Speci men Type: BLOOD SPECIMENOrdering Facility: [facility] Address: [address] [place] [address] Performed By: #### 5 7021-8 ####[facility] LABCLIA [id number] [place] [address] Nucleated RBC/100 WBC (Bld) [Ratio] 0.0 /100 WBC Normal [facility] Comment on above: Order Comment: Speci men Type: BLOOD SPECIMENOrdering Facility: [facility] Address: [address] [place] [address] Performed By: #### 5 7021-8 ####[facility] LABCLIA [id number] [place] [address] Platelet mean volume (Bld) [Entitic vol] 10.0 fL Normal 9.0-12.7 [facility] Comment on above: Order Comment: Speci men Type: BLOOD SPECIMENOrdering Facility: [facility] Address: [address] [place] [address] Performed By: #### 5 7021-8 ####[facility] LABIA [id number] [place] [address] Platelets (Bld) [#/Vol] 179 10*3/uL Normal 150-400 [facility] Comment on above: Order Comment: Speci men Type: BLOOD SPECIMENOrdering Facility: [facility] Address: [address] [place] [address] Performed By: #### 5 7021-8 ####[facility] LABIA [id number] [place] [address] RBC (Bld) [#/Vol] 4.47 10*6/uL Normal 3.90-5.20 [facility] Comment on above: Order Comment: Speci men Type: BLOOD SPECIMENOrdering Facility: [facility] Address: [address] [place], [place] [address] Performed By: #### 5 7021-8 ####[facility] LABIA [id number] [place] [address] WBC (Bld) [#/Vol] 5.85 10*3/uL Normal 3.70-11.00 [facility] Comment on above: Order Comment: Speci men Type: BLOOD SPECIMENOrdering Facility: [facility] Address: [address] [place], [place] [address] Performed By: #### 5 7021-8 ####[facility] LABIA [id number] [place] [address] CNNURSEon 06-05-2023 CNNURSE Nurse Visit (HEMASA) ---- IVONNE CESPEDES ([id number]) 1955 F Date Time Provider Department 06/05/23 3:15 PM [facility] NURSE ERVIN VILLASENOR During your visit today, we recorded the following information about you: Ignacio, 06/05/2023 3:24 PM Signed Patient Identification confirmed: yes. Injection given and documented on OCT per provider order. November Ignacio Referring Provider: MAIKEL LUNSFORD [[id number]] Allergies As of Date: 06/05/2023 Noted Allergy Reaction BUPROPION 12/22/2004 12 - Shortness of Breath ZYBAN (BUPROPION HCL (SMOKING DET*11/07/2018 12 - Shortness of Breath Date Reviewed: 06/05/2023 Reviewed by: Desirae Sargent MA - Fully Assessed Primary Visit Diagnosis:Anemia, unspecified type [D64.9] Other Visit Diagnosis:Megalobla stic anemia due to vitamin B12 deficiency [D53.1] Order(s):TREATMENT PARAMETER-NOT NEEDED [[id number]] Order #: [id number]: 1 BCN NURSING COMMUNICATION [[id number]] Order #: [id number]: 1 STANDING cyanocobalamin 1,000 mcg injectionDisp: Rfl: Prescriptions as of 06/05/2023 - calcium carbonate (CALCIUM 500 ORAL) Take by mouth. - Cholecalciferol, Vitamin D3, (VITAMIN D) 1,000 unit cap Take 1,000 Units by mouth once daily. - enzymes,digestive (DIGESTIVE ENZYMES ORAL) Take by mouth. - levothyroxine (SYNTHROID) 50 mcg tablet take 1 tablet by mouth every day in the morning on empty stomach - loperamide (IMODIUM) 2 mg cap(s) every other day. - sertraline (ZOLOFT) 50 mg tablet Take 50 mg by mouth once daily. Facility-Administer ed Medications as of 06/05/2023 - cyanocobalamin 1,000 mcg injection (Completed) Problem List As Of Date 06/05/2023 Noted Resolved Ductal carcinoma in situ (DCIS) of breast [D05.*06/11/2019 Anemia [D64.9] 03/13/2023 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 deficie*03/13/2023 Visit Notes: >> Ignacio, NovemberJun 05, 2023 3:23 PM Status: Signed Patient Identification confirmed: yes. Injection given and documented on OCT per provider order. November Ignacio Prescriptions ordered this encounter Disp Refills Start End CYANOCOBALAMIN (VIT B-12) 1,000 MCG/* 06/05/2023 06/05/2023 Route: INTRAMUSCULA Encounter Status:Closed by IGNACIO NOVEMBER on 06/05/23 [place] CNOVSPon 06-05-2023 CNOVSP Visit (SP) Office (HEMASA) ---- IVONNE CESPEDES ([id number]) 1955 F Date Time Provider Department 06/05/23 2:15 PM MAIKEL LUNSFORD During your visit today, we recorded the following information about you: Temperature Pulse Respiration Blood pressure 97 degrees 78/minute 16/minute 125/70 Weight Height 53.3 kg 1.524 m Maikel Lunsford MD 06/09/2023 3:35 PM Signed NAME: Ivonne Cespedes CLINIC NO.: [id number] DATE OF SERVICE: June 05, 2023 (Martín) Some elements in this clinic note that are critical to medical decision making have been carefully reviewed and included from a prior clinic note dated: March 13, 2023 (Martín) Referring Provider: Rosa Shearer Additional Clinicians involved in Ivonne Cespedes's care: DIAGNOSIS: B12 deficiency History of right breast DCIS ASSESSMENT: 68 year old woman with DCIS diagnosed approximately 4 years ago in October 2018 status post lumpectomy and radiation but no endocrine therapy for chemoprevention. I will try to discuss this with her again at the next visit. However, it is unlikely to help her this far out from primary therapy. She is referred for persistent B12 deficiency and likely has pernicious anemia. Rather than checking for intrinsic factor antibodies, I will just treat the deficiency with B12 replacement intramuscularly every month. PLAN: B12 shot today and then every 4 weeks RTC in 12 weeks and repeat labs. Exam same day. Obtain mammography from [facility] Consult Court Registry Officer for help with pancreatic insufficiency (Dr. Hameed) ___- HPI: CASE HISTORY: Reverse Chronological Order 02/13/2023 B12 level 144 11/01/2022 CBC 5.7 > 13.5/41.6 < 218 normal differential. March 2022 FibroScan F0-F1 no steatosis. January 2022 CT scan abdomen pelvis at [facility] hepatomegaly with hepatic steatosis. June 2021 CT abdomen pelvis right retrocrural lymph node. November 25, [address] 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 October 27, 2018 biopsy showed ductal carcinoma in situ high nuclear grade. The estrogen receptor was positive at 10-20% with progesterone receptor negative DCIS Right Breast - [facility] October 22, 2018 mammogram showing suspicious changes in the right breast. grouping of numerous pleomorphic calcifications within the posterior upper inner quadrant. Updated Visit, June 05, 2023: Mammogram done in [place] yesterday Was told she has pancreatic insufficiency B12 levels remain low. Initial Visit, March 13, 2023: Ivonne Cespedes presents today Hematology and Oncology evaluation. 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 Additionally has a history of pancreatic insufficiency requiring Creon and fatty liver disease with IBS diarrhea. She has known vitamin B12 deficiency with levels less than 50 and was supposed to start vitamin B12 supplementation which I did do not know if she did. B12 level February 13, 2023 had improved to 144. She is referred for evaluation of B12 supplementation. ___- REVIEW OF SYSTEMS Per HPI and otherwise negative by full review of organ systems. ___- ECOG PERFORMANCE STATUS: 0 PHYSICAL EXAMINATION: Vitals: BP 125/70 Pulse 78 Temp (Src) 97 (Temporal) Resp 16 Ht 5' 0 (1.52m) Wt 117 lb 9.6 oz (53.3kg) SpO2 97% BMI 22.97 kg/(m2). Body surface area is 1.5 meters squared. Exam limited to gross visualization where appropriate. Gen.: This is an age-appropriate patient in no acute distress. Head: Appears atraumatic with no visible lesions. Eyes: Pupils equally round and reactive to light, extraocular muscles are intact. Neck: Supple. Respiratory: Appears to be respiring comfortably. Neurologic: Nonfocal to gross visualization. Alert and oriented ?3. Psychiatric: No evidence of inappropriate anxiety or depression. Skin: Visible areas of skin without rash, lesions, wounds or petechiae. ___- ALLERGIES: ALLERGIES Allergen Reactions Bupropion Shortness of Breath Zyban [Bupropion Hc* Shortness of Breath MEDICATIONS: calcium carbonate (CALCIUM 500 ORAL) Take by mouth. Cholecalciferol, Vitamin D3, (VITAMIN D) 1,000 unit cap Take 1,000 Units by mouth once daily. enzymes,digestive (DIGESTIVE ENZYMES ORAL) Take by mouth. levothyroxine (SYNTHROID) 50 mcg tablet take 1 tablet by mouth every day in the morning on empty stomach loperamide (IMODIUM (more content not included)... Normal [facility] Comprehensive metabolic 2000 panelon 06-05-2023 Albumin [Mass/Vol] 4.0 g/dL Normal 3.9-4.9 [facility] Comment on above: Order Comment: Speci men Type: BLOOD SPECIMENOrdering Facility: [facility] Address: [address] [place], [place] [address] [address] Performed By: #### 2 2760-8 ####[facility] LABCLIA [id number] [place] [address] [place] ALP [Catalytic activity/Vol] 80 U/L Normal 34-123 [facility] Comment on above: Order Comment: Speci men Type: BLOOD SPECIMENOrdering Facility: [facility] Address: [address] [place] [address] Performed By: #### 2 4323-8 ####[facility] LABCLIA [id number] [place] [address] [place] ALT [Catalytic activity/Vol] 12 U/L Normal 7-38 [facility] Comment on above: Order Comment: Speci men Type: BLOOD SPECIMENOrdering Facility: [facility] Address: [address] [place] [address] Performed By: #### 2 4323-8 ####[facility] LABCLIA [id number] [place] [address] [place] Anion gap [Moles/Vol] 9 mmol/L Normal 9-18 [facility] Comment on above: Order Comment: Speci men Type: BLOOD SPECIMENOrdering Facility: [facility] Address: [address] [place] [address] Performed By: #### 2 4323-8 ####[facility] LABCLIA [id number] [place] [address] [place] AST [Catalytic activity/Vol] 18 U/L Normal 13-35 [facility] Comment on above: Order Comment: Speci men Type: BLOOD SPECIMENOrdering Facility: [facility] Address: [address] [place] [address] Performed By: #### 2 4323-8 ####[facility] LABCLIA [id number] [place] [address] [place] Bilirubin [Mass/Vol] 0.2 mg/dL Normal 0.2-1.3 [facility] Comment on above: Order Comment: Speci men Type: BLOOD SPECIMENOrdering Facility: [facility] Address: [address] [place] [address] Performed By: #### 2 4323-8 ####[facility] LABCLIA [id number] [place] [address] [place] Calcium [Mass/Vol] 9.7 mg/dL Normal 8.5-10.2 [facility] Comment on above: Order Comment: Speci men Type: BLOOD SPECIMENOrdering Facility: [facility] Address: [address] [place] [address] Performed By: #### 2 4323-8 ####[facility] LABCLIA [id number] [place] [address] [place] Chloride [Moles/Vol] 103 mmol/L Normal 97-105 [facility] Comment on above: Order Comment: Speci men Type: BLOOD SPECIMENOrdering Facility: [facility] Address: [address] [place] [address] Performed By: #### 2 4323-8 ####[facility] LABCLIA [id number] [place] [address] [place] CO2 [Moles/Vol] 28 mmol/L Normal 22-30 [facility] Comment on above: Order Comment: Speci men Type: BLOOD SPECIMENOrdering Facility: [facility] Address: [address] [place] [address] Performed By: #### 2 4323-8 ####[facility] LABCLIA [id number] [place] [address] [place] Creatinine [Mass/Vol] 0.62 mg/dL Normal 0.58-0.96 [facility] Comment on above: Order Comment: Speci men Type: BLOOD SPECIMENOrdering Facility: [facility] Address: [address] [place] [address] Performed By: #### 2 4323-8 ####[facility] LABCLIA [id number] [place] [address] [place] Creatinine and Glomerular filtration rate.predicted panel (S/P/Bld) 96 mL/min/1.73m??? Normal >=60 [facility] Comment on above: Order Comment: Eusebio mahnaz Type: BLOOD SPECIMENOrdering Facility: [facility] Address: [address] [place] [address] Result Comment: Angela mated Glomerular Filtration Rate (eGFR) is calculated using the 2020 CKD-EPI creatinine equation. This equation utilizes serum creatinine, sex, and age as parameters. The creatinine assay has traceable calibration to isotope dilution-mass spectrometry. Refer to KDIGO guidelines for clinical interpretation. In patients with unstable renal function, e.g. those with acute kidney injury, the eGFR may not accurately reflect actual GFR. Performed By: #### 2 4323-8 ####[facility] LABCLIA [id number] [place] [address] [place] Glucose [Mass/Vol] 95 mg/dL Normal 74-99 [facility] Comment on above: Order Comment: Eusebio joya Type: BLOOD SPECIMENOrdering Facility: [facility] Address: [address] [place] [address] Result Comment: The [place] Diabetes Association (ADA) provides guidance for cutoff values for fasting glucose and random glucose. The ADA defines fasting as no caloric intake for at least 8 hours. Fasting plasma glucose results between 100 to 125 mg/dL indicate increased risk for diabetes (prediabetes). Fasting plasma glucose results greater than or equal to 126 mg/dL meet the criteria for diagnosis of diabetes. In the absence of unequivocal hyperglycemia, results should be confirmed by repeat testing. In a patient with classic symptoms of hyperglycemia or hyperglycemic crisis, random plasma glucose results greater than or equal to 200 mg/dL meet the criteria for diagnosis of diabetes. Reference: Standards of Medical Care in Diabetes 2016, [place] Diabetes Association. Diabetes Care. 2016.39(Suppl 1). Performed By: #### 2 4323-8 ####[facility] LABCLIA [id number] [place] [address] [place] Potassium [Moles/Vol] 4.1 mmol/L Normal 3.7-5.1 [facility] Comment on above: Order Comment: Speci men Type: BLOOD SPECIMENOrdering Facility: [facility] Address: [address] [place] [address] Performed By: #### 2 4323-8 ####[facility] LABCLIA [id number] [place] [address] [place] Protein [Mass/Vol] 7.1 g/dL Normal 6.3-8.0 [facility] Comment on above: Order Comment: Speci men Type: BLOOD SPECIMENOrdering Facility: [facility] Address: [address] [place] [address] Performed By: #### 2 4323-8 ####[facility] LABCLIA [id number] [place] [address] [place] Sodium [Moles/Vol] 140 mmol/L Normal 136-144 [facility] Comment on above: Order Comment: Speci men Type: BLOOD SPECIMENOrdering Facility: [facility] Address: [address] [place] [address] Performed By: #### 2 4323-8 ####[facility] LABCLIA [id number] [place] [address] [place] Urea nitrogen [Mass/Vol] 13 mg/dL Normal 7-21 [facility] Comment on above: Order Comment: Speci men Type: BLOOD SPECIMENOrdering Facility: [facility] Address: [address] [place] [address] Performed By: #### 2 4323-8 ####[facility] LABCLIA [id number] [place] [address] [place] Ferritin SerPl-mCncon 2022 Ferritin [Mass/Vol] 19.5 ng/mL Normal 14.7-205.1 [facility] Comment on above: Order Comment: Speci men Type: BLOOD SPECIMENOrdering Facility: [facility] Address: [address] [place] [address] Performed By: #### 2 284-8, 6-4, 2131-9, 37130-7 ####[facility] LABCLIA [id number] [place] [id number] [place] Folate SerPl-ncon 06-05-20 Folate [Mass/Vol] 10.9 ng/mL Normal >4.7 [facility] Comment on above: Order Comment: Speci men Type: BLOOD SPECIMENOrdering Facility: [facility] Address: [address] [place] [address] Performed By: #### 2 284-8, 6-4, 9, 10449-6 ####[facility] LABCLIA [id number] [place] [id number] [place] Iron and Iron binding capaci panel 06-05-2023 Iron [Mass/Vol] 86 ug/dL Normal 41-186 [facility] Comment on above: Order Comment: Speci men Type: BLOOD SPECIMENOrdering Facility: [facility] Address: [address] [place] [address] Performed By: #### 2 284-8, 6-4, 9, 68743-5 ####[facility] LABCLIA [id number] [address] [place] Iron binding capacity [Mass/Vol] 357 ug/dL Normal 232-386 [facility] Comment on above: Order Comment: Speci men Type: BLOOD SPECIMENOrdering Facility: [facility] Address: [address] [place] [address] Performed By: #### 2 284-8, 6-4, 9, 96870-6 ####[facility] LABCLIA [id number] [place] [id number] [place] Iron/TIBC [Molar ratio] 24.1 % Normal 15.0-57.0 [facility] Comment on above: Order Comment: Speci men Type: BLOOD SPECIMENOrdering Facility: [facility] Address: [address] [place] [id number] Performed By: #### 2 284-8, 2276-4, 2132-9, 98719-8 ####[facility] LABIA [id number] [place] [id number] [place] Vit B12 SerPl[facility] 023 Cobalamin (Vitamin B12) [Mass/Vol] 237 pg/mL Normal 232-1245 [facility] Comment on above: Order Comment: Speci men Type: BLOOD SPECIMENOrdering Facility: [facility] Address: [address] [place] [address] Performed By: #### 2 284-8, 2276-4, 2-9, 54457-4 ####[facility] LABCLIA [id number] [place] [id number] [facility] [place] CNNURSEon 04-05-2023 CNNURSE Nurse Visit (HEMASA) ---- IVONNE CESPEDES ([id number]) 1955 F Date Time Provider Department 04/05/23 10:00 AM [facility] NURSE ERVIN KENNEDY HEMMAMI During your visit today, we recorded the following information about you: Temperature Pulse Respiration Blood pressure 97.7 degrees 79/minute 16/minute 124/81 Desirae Sargent MA 04/05/2023 10:31 AM Signed Patient Identification confirmed: yes. Injection given and documented on OCT per provider order. Desirae Sargent MA Allergies As of Date: 04/05/2023 Noted Allergy Reaction BUPROPION 12/22/2004 12 - Shortness of Breath ZYBAN (BUPROPION HCL (SMOKING DET*11/07/2018 12 - Shortness of Breath Date Reviewed: 04/05/2023 Reviewed by: Desirae Sargent MA - Fully Assessed Primary Visit Diagnosis:Anemia, unspecified type [D64.9] Other Visit Diagnosis:Megalobla stic anemia due to vitamin B12 deficiency [D53.1] Order(s):TREATMENT PARAMETER-NOT NEEDED [[id number]] Order #: [id number]: 1 BCN NURSING COMMUNICATION [[id number]] Order #: [id number]: 1 STANDING [] cyanocobalamin 1,000 mcg injectionDisp: Rfl: Prescriptions as of 04/05/2023 - levothyroxine (SYNTHROID) 50 mcg tablet take 1 tablet by mouth every day in the morning on empty stomach - enzymes,digestive (DIGESTIVE ENZYMES ORAL) Take by mouth. - loperamide (IMODIUM) 2 mg cap(s) every other day. - sertraline (ZOLOFT) 50 mg tablet Take 50 mg by mouth once daily. - calcium carbonate (CALCIUM 500 ORAL) Take by mouth. - Cholecalciferol, Vitamin D3, (VITAMIN D) 1,000 unit cap Take 1,000 Units by mouth once daily. 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 Injection given and documented on OCT per provider order. Desirae Sargent MA Prescriptions ordered this encounter Disp Refills Start End CYANOCOBALAMIN (VIT B-12) 1,000 MCG/* 04/05/2023 04/05/2023 Route: INTRAMUSCULA Encounter Status:Closed by DESIRAE SARGENT on 04/05/23 Normal [facility] Consultation Noteon 04-02-20 Consultation Note [id number]. [id number] 46#1.00CD:127 Normal [facility] Patient Correspondenceon Patient Correspondence [id number] E4#1.00CD:127 Maddie [facility] CNPNon 04-01-2023 CNPN Telephone (NCCAP) ---- IVONNE CESPEDES ([id number]) 1955 F Date Time Provider Department 04/01/23 MAIKEL LUNSFORD NCCAP During your visit today, we recorded the following information about you: Dede Funez 04/01/2023 11:08 AM Signed Received call from [facility] office. Requesting us to fax Dr CHANDRA office note from 03/13 to their office @ [phone]. Dr CAHNDRA office note from 03/13/23 faxed to [phone]. Dede Regalado Pss Allergies As of Date: 04/01/2023 Noted Allergy Reaction BUPROPION 12/22/2004 12 - Shortness of Breath ZYBAN (BUPROPION HCL (SMOKING DET*11/07/2018 12 - Shortness of Breath Date Reviewed: 03/13/2023 Reviewed by: Desirae Sargent MA - Fully Assessed Reason for Visit: Records Faxed To [facility] [Other] Prescriptions as of 04/01/2023 - levothyroxine (SYNTHROID) 50 mcg tablet take 1 tablet by mouth every day in the morning on empty stomach - enzymes,digestive (DIGESTIVE ENZYMES ORAL) Take by mouth. - loperamide (IMODIUM) 2 mg cap(s) every other day. - sertraline (ZOLOFT) 50 mg tablet Take 50 mg by mouth once daily. - calcium carbonate (CALCIUM 500 ORAL) Take by mouth. - Cholecalciferol, Vitamin D3, (VITAMIN D) 1,000 unit cap Take 1,000 Units by mouth once daily. 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 Anemia [D64.9] 03/13/2023 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 deficie*03/13/2023 Encounter Status:Closed by DEDE FUNEZ on 04/01/23 Normal [facility] Physician Referralon 023 Physician Referral [id number] E3#1.00CD:127 Normal [facility] CNNURSEon 03-29-2023 [facility] Nurse Visit (HEMASA) ---- IVNONE CESPEDES ([id number]) 1955 F Date Time Provider Department 03/29/23 2:15 PM [facility] NURSE ERVIN KENNEDY HEMMAMI During your visit today, we recorded the following information about you: Temperature Pulse Respiration Blood pressure 97.8 degrees 88/minute 16/minute 105/72 Weight 52.9 kg Desirae Sargent MA 03/29/2023 2:23 PM Signed Patient Identification confirmed: yes. Injection given and documented on OCT per provider order. Desirae Sargent MA Allergies As of Date: 03/29/2023 Noted Allergy Reaction BUPROPION 12/22/2004 12 - Shortness of Breath ZYBAN (BUPROPION HCL (SMOKING DET*11/07/2018 12 - Shortness of Breath Date Reviewed: 03/13/2023 Reviewed by: Desirae Sargent MA - Fully Assessed Primary Visit Diagnosis:Anemia, unspecified type [D64.9] Other Visit Diagnosis:Megalobla stic anemia due to vitamin B12 deficiency [D53.1] Order(s):TREATMENT PARAMETER-NOT NEEDED [[id number]] Order #: [id number]: 1 BCN NURSING COMMUNICATION [[id number]] Order #: [id number]: 1 STANDING [] cyanocobalamin 1,000 mcg injectionDisp: Rfl: Prescriptions as of 03/29/2023 - levothyroxine (SYNTHROID) 50 mcg tablet take 1 tablet by mouth every day in the morning on empty stomach - enzymes,digestive (DIGESTIVE ENZYMES ORAL) Take by mouth. - loperamide (IMODIUM) 2 mg cap(s) every other day. - sertraline (ZOLOFT) 50 mg tablet Take 50 mg by mouth once daily. - calcium carbonate (CALCIUM 500 ORAL) Take by mouth. - Cholecalciferol, Vitamin D3, (VITAMIN D) 1,000 unit cap Take 1,000 Units by mouth once daily. 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 Injection given and documented on OCT per provider order. Desirae Sargent MA Prescriptions ordered this encounter Disp Refills Start End CYANOCOBALAMIN (VIT B-12) 1,000 MCG/* 03/29/2023 03/29/2023 Route: INTRAMUSCULA Encounter Status:Closed by DESIRAE SARGENT on 03/29/23 Normal [facility] Ambulatory Visit Summaryon 0 03-26-2023 Ambulatory Visit Summary IVONNE CESPEDES :1955 Visit Date:03/26/2023 Ambulatory Visit Instructions Your Diagnosis Pancreatic insufficiency Loose stools Abdominal cramping History of colon polyps Family history of colon cancer Your Care Team Attending Physician - Rosa Shearer CNP Primary Care Physician - NURYS BOGGS MD This Is Your Medications List bifidobacterium infantis (Align 4 mg oral capsule) Contact prescribing physician if questions or concerns Patient Specific Meds acetaminophen-chlor zoxazone (Extra Strength Tylenol Aches and Strains) ascorbic acid (Vitamin C) cholecalciferol (Vitamin D3) dicyclomine (Bentyl 10 mg Cap) dicyclomine (dicyclomine 10 mg Cap) levothyroxine (levothyroxine 50 mcg (0.05 mg) Tab) multivitamin with minerals (Bruce/Mag 2001 Plus Vitamins C and D) pancrelipase (Creon 24,000 units oral delayed release capsule) pancrelipase (Creon) sertraline (Zoloft 50 mg Tab) Procedures Performed Colonoscopy (05/16/2021), BREAST BIOPSY (11/25/2018), Tubal ligation (1984), Biopsy of breast, Hysterectomy, Laparoscopic cholecystectomy. Discharge Vitals Temperature (Temporal Artery) 36.1 ?C Heart Rate (Peripheral) 74 Blood Pressure 110/74 Height 152 cm Height 60 in Weight 53.4 kg Weight 117.48 lb BMI 23.11 What to do next Scheduled Follow-Up Appointments Saturday 12:40 PM EDT With: Rosa Shearer CNP Where: [facility] Normal [facility] Gastroenterology Office/Clin ic Noteon 03-26-2023 Gastroenterology Office/Clinic Note Chief Complaint Abdominal pain and cramps. HPI Staff This is a 67 year old female who presents today for a follow-up from 02/22/23 office visit and fibroscan. History of Present Illness Patient is a 67-year-old female who presents for follow-up. Patient with history of pancreatic insufficiency that was diagnosed following previous stool testing for fecal pancreatic elastase 05/2022 that was low at 88. Patient also with history of fatty liver disease and IBS with diarrhea. Patient was previously evaluated by Dr. Hameed 09/2022 for RUQ and epigastric pain and advised to follow-up with [facility] regarding. Patient had previous negative stool testing for infectious process. Previous labs 10/2022 revealed normal H&H, normal BUN, normal creatinine, normal liver enzymes, normal vitamin A and E. Patient was previously advised to start vitamin B12 supplementation given low B12 level of less than 50. Recent B12 level 02/13/2023 had improved to 144. Patient had previously reported taking Questran in the past that had helped her diarrhea however, did not help her cramping. Previous ultrasound of pelvis 09/2022 showed no acute pathology. Patient had previously questioned whether or not to take Creon in relation to potential side effects. Patient was previously educated regarding importance of Creon for pancreatic insufficiency and was agreeable to try. Patient was previously ordered Creon 24,000 units 3 times a day with meals. Patient reported during most recent visit with me that she had stopped taking Creon 1.5 months ago and was taking a form of qavm-tpn-qoreday pancreatic enzymes. She reported she would like to decrease Creon as she was still having lower abdominal cramping that occurred daily. She also reported having 50% formed stools and 50% loose stools depending on what she ate. She also indicated she was no longer taking Questran over the last 3 months. She denied fiber supplementation. She also reported history of IBS with diarrhea and reported she was not taking Librax and did not want to take this medication. Patient had previous FibroScan 03/2022 that revealed F0?F1 fibrosis, no steatosis. Previous colonoscopy in 2015 revealed suboptimal prep, diverticulosis, transverse colon polyp that pathology revealed was inflammatory reactive polyp and was to repeat colonoscopy in 1 year. Repeat colonoscopy 04/2021 revealed normal terminal ileum, diverticulosis, hemorrhoids, hyperplastic polyp removed from descending colon and was recommended to have repeat colonoscopy in 2025. Patient had previous CT 06/2021 that showed enlarged right retrocrural lymph node- to follow-up with PCP regarding, and no evidence of diverticulitis. Patient had repeat CT 01/2022 at [facility] that showed hepatomegaly and hepatic steatosis. Patient with family history of colon cancer?patient's sister. Patient was advised during previous evaluation to resume Creon at 24,000 units TID with meals. Patient was also ordered repeat FibroScan. Patient was also referred to hematology regarding low B12 level for possible need of IM injections. Patient was also educated regarding fiber supplementation daily and probiotics daily with yogurt. FibroScan completed 03/07/2023 revealed F0?F1 fibrosis, mild steatosis. Patient had previous FibroScan 03/2022 that revealed F0?F1 fibrosis, no steatosis. Previous colonoscopy in 2015 revealed suboptimal prep, diverticulosis, transverse colon polyp that pathology revealed was inflammatory reactive polyp and was to repeat colonoscopy in 1 year. Repeat colonoscopy 04/2021 revealed normal terminal ileum, diverticulosis, hemorrhoids, hyperplastic polyp removed from descending colon and was recommended to have repeat colonoscopy in 2025. During today's visit, patient reports she is still having lower abdominal cramping and loose stools, occurring daily. She explains in the morning she will drink coffee and have loose stools. She reports having 3-4 loose BMs daily. She reports she also has lower back pain and explains when she does not have lower back pain, she will not have lower abdominal cramping. She explains [employer] MARK helped her abdominal cramping. She reports Creon is too expensive and does not want assistance regarding Creon and does not want to take Creon. Indicates she is taking OTC pancreatic enzymes. Is taking Benefiber fiber supplementation 1 teaspoon daily. Denies black/bloody stools, nausea/vomiting, fevers/chills. Denies having any other GI complaints. Review of Systems ROS - Provider Constitutional: no fever, no chills. Skin: no Jaundice. ENMT: Denies dysphagia and heartburn. Respiratory: no shortness of breath. Cardiovascular: no chest pain. Gastrointestinal: no nausea, no vomiting, yes loose stools, no GI bleeding. Physical Exam Vitals & Measurements T: 36.1 ?C(Temporal Artery) HR: 74(Peripheral) BP: 110/74 HT: 60 in HT: 152 cm WT: 53.4 kg WT: 117.48 lb BMI: 23.11 General: Well developed, well nourished, in no acute distress Head: Normocephalic/atrau (more content not included)... Normal [facility] Comment on above: Result Comment: Elec tronically Signed By: Rosa Shearer CNP\.br\Date and Time Signed: 03/26/23 13:11 EDT Patient Educationon 03-26-20 Patient Education Oncology Colon Polyps Colon polyps are tissue growths inside the colon, which is part of the large intestine. They are one of the types of polyps that can grow in the body. A polyp may be a round bump or a mushroom-shaped growth. You could have one polyp or more than one. Most colon polyps are noncancerous (benign). However, some colon polyps can become cancerous over time. Finding and removing the polyps early can help prevent this. What are the causes? The exact cause of colon polyps is not known. What increases the risk? The following factors may make you more likely to develop this condition: ? Having a family history of colorectal cancer or colon polyps. ? Being older than 45 years of age. ? Being younger than 45 years of age and having a significant family history of colorectal cancer or colon polyps or a genetic condition that puts you at higher risk of getting colon polyps. ? Having inflammatory bowel disease, such as ulcerative colitis or Crohn's disease. ? Having certain conditions passed from parent to child (hereditary conditions), such as: ? Familial adenomatous polyposis (FAP). ? Gonzalez syndrome. ? Turcot syndrome. ? Peutz?Jeghers syndrome. ? MUTYH-associated polyposis (MAP). ? Being overweight. ? Certain lifestyle factors. These include smoking cigarettes, drinking too much alcohol, not getting enough exercise, and eating a diet that is high in fat and red meat and low in fiber. ? Having had childhood cancer that was treated with radiation of the abdomen. What are the signs or symptoms? Many times, there are no symptoms. If you have symptoms, they may include: ? Blood coming from the rectum during a bowel movement. ? Blood in the stool (feces). The blood may be bright red or very dark in color. ? Pain in the abdomen. ? A change in bowel habits, such as constipation or diarrhea. How is this diagnosed? This condition is diagnosed with a colonoscopy. This is a procedure in which a lighted, flexible scope is inserted into the opening between the buttocks (anus) and then passed into the colon to examine the area. Polyps are sometimes found when a colonoscopy is done as part of routine cancer screening tests. How is this treated? This condition is treated by removing any polyps that are found. Most polyps can be removed during a colonoscopy. Those polyps will then be tested for cancer. Additional treatment may be needed depending on the results of testing. Follow these instructions at home: Eating and drinking ? Eat foods that are high in fiber, such as fruits, vegetables, and whole grains. ? Eat foods that are high in calcium and vitamin D, such as milk, cheese, yogurt, eggs, liver, fish, and broccoli. ? Limit foods that are high in fat, such as fried foods and desserts. ? Limit the amount of red meat, precooked or cured meat, or other processed meat that you eat, such as hot dogs, sausages, kaiser, or meat loaves. ? Limit sugary drinks. Lifestyle ? Maintain a healthy weight, or lose weight if recommended by your health care provider. ? Exercise every day or as told by your health care provider. ? Do not use any products that contain nicotine or tobacco, such as cigarettes, e-cigarettes, and chewing tobacco. If you need help quitting, ask your health care provider. ? Do not drink alcohol if: ? Your health care provider tells you not to drink. ? You are , may be , or are planning to become . ? If you drink alcohol: ? Limit how much you use to: ? 0?1 drink a day for women. ? 0?2 drinks a day for men. ? Know how much alcohol is in your drink. In the [place] one drink equals one 12 oz bottle of beer (355 mL), one 5 oz glass of wine (148 mL), or one 1? oz glass of hard liquor (44 mL). General instructions ? Take tcsh-dzk-bcugjga and prescription medicines only as told by your health care provider. ? Keep all follow-up visits. This is important. This includes having regularly scheduled colonoscopies. Talk to your health care provider about when you need a colonoscopy. Contact a health care provider if: ? You have new or worsening bleeding during a bowel movement. ? You have new or increased blood in your stool. ? You have a change in bowel habits. ? You lose weight for no known reason. Summary ? Colon polyps are tissue growths inside the colon, which is part of the large intestine. They are one type of polyp that can grow in the body. ? Most colon polyps are noncancerous (benign), but some can become cancerous over time. ? This condition is diagnosed with a colonoscopy. ? This condition is treated by removing any polyps that are found. Most polyps can be removed during a colonoscopy. This information is not intended to replace advice given to you by your health care provider. Make sure you discuss any questions you have with your health care provider. Document Revised: 11/30/2020 D (more content not included)... Normal [facility] CNNURSEon 03-22-2023 CNNURSE Nurse Visit (HEMASA) ---- IVONNE CESPEDES ([id number]) 1955 F Date Time Provider Department 03/22/23 2:15 PM [facility] NURSE ERVIN VILLASENOR During your visit today, we recorded the following information about you: Temperature Pulse Respiration Blood pressure 97.5 degrees 82/minute 16/minute 94/70 Desirae Sargent MA 03/22/2023 2:33 PM Signed Patient Identification confirmed: yes. Injection given and documented on OCT per provider order. Desirae Sargent MA Allergies As of Date: 03/22/2023 Noted Allergy Reaction BUPROPION 12/22/2004 12 - Shortness of Breath ZYBAN (BUPROPION HCL (SMOKING DET*11/07/2018 12 - Shortness of Breath Date Reviewed: 03/13/2023 Reviewed by: Desirae Sargent MA - Fully Assessed Primary Visit Diagnosis:Anemia, unspecified type [D64.9] Other Visit Diagnosis:Megalobla stic anemia due to vitamin B12 deficiency [D53.1] Order(s):TREATMENT PARAMETER-NOT NEEDED [[id number]] Order #: [id number]: 1 BCN NURSING COMMUNICATION [[id number]] Order #: [id number]: 1 STANDING [] cyanocobalamin 1,000 mcg injectionDisp: Rfl: Prescriptions as of 03/22/2023 - levothyroxine (SYNTHROID) 50 mcg tablet take 1 tablet by mouth every day in the morning on empty stomach - enzymes,digestive (DIGESTIVE ENZYMES ORAL) Take by mouth. - loperamide (IMODIUM) 2 mg cap(s) every other day. - sertraline (ZOLOFT) 50 mg tablet Take 50 mg by mouth once daily. - calcium carbonate (CALCIUM 500 ORAL) Take by mouth. - Cholecalciferol, Vitamin D3, (VITAMIN D) 1,000 unit cap Take 1,000 Units by mouth once daily. Problem List As Of Date 03/22/2023 Noted Resolved Ductal carcinoma in situ (DCIS) of breast [D05.*06/11/2019 Anemia [D64.9] 03/13/2023 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 deficie*03/13/2023 Visit Notes: >> Desirae Sargent MA SatMar 22, 2023 2:31 PM Status: Signed Patient Identification confirmed: yes. Injection given and documented on OCT per provider order. Desirae Sargent MA Prescriptions ordered this encounter Disp Refills Start End CYANOCOBALAMIN (VIT B-12) 1,000 MCG/* 03/22/2023 03/22/2023 Route: INTRAMUSCULA Encounter Status:Closed by DESIRAE SARGENT on 03/22/23 Normal [facility] Postoperative Documentson Postoperative Documents [id number]:[id number] Normal [facility] INTRINSIC FACTOR BLOCKING AB on 03-16-2023 Intrinsic factor blocking Ab Ql (S) Negative Negative [facility] FERRITIN BLDon 03-14-2023 Ferritin [Mass/Vol] 25.6 ng/mL 14.7 - 2 05.1 ng/mL [facility] FOLATE SERUMon 03-14-2023 Folate [Mass/Vol] 15.2 ng/mL >4.7 ng/mL [facility] Iron and Iron binding capaci ty panelon 03-14-2023 Iron [Mass/Vol] 48 ug/dL 41 - 186 ug/dL [facility] Iron binding capacity [Mass/Vol] 374 ug/dL 232 - 386 ug/dL [facility] Iron/TIBC [Molar ratio] 12.8 % Low 15.0 - 57.0 % [facility] VITAMIN B12 BLOODon 03-14-20 Cobalamin (Vitamin B12) [Mass/Vol] 209 pg/mL Low 232 - 1,245 pg/mL [facility] CBC W Auto Differential pane l (Bld)on 03-13-2023 Basophils (Bld) [#/Vol] 0.06 10*3/uL Normal <0.11 [facility] Comment on above: Order Comment: Speci men Type: BLOOD SPECIMENOrdering Facility: [facility] Address: [address] [place] [address] Performed By: #### 5 7021-8 ####[facility] LABCLIA [id number] [place] [address] Basophils/100 WBC (Bld) 1.0 % Normal [facility] Comment on above: Order Comment: Speci men Type: BLOOD SPECIMENOrdering Facility: [facility] Address: [address] [place] [address] Performed By: #### 5 7021-8 ####[facility] LABCLIA [id number] [place] [address] Differential cell count method Nom (Bld) Auto Normal [facility] Comment on above: Order Comment: Speci men Type: BLOOD SPECIMENOrdering Facility: [facility] Address: [address] [place] [address] Performed By: #### 5 7021-8 ####[facility] LABCLIA [id number] [place] [address] Eosinophils (Bld) [#/Vol] 0.21 10*3/uL Normal <0.46 [facility] Comment on above: Order Comment: Speci men Type: BLOOD SPECIMENOrdering Facility: [facility] Address: [address] [place] [address] Performed By: #### 5 7021-8 ####[facility] LABCLIA [id number] [place] [address] Eosinophils/100 WBC (Bld) 3.5 % Normal [facility] Comment on above: Order Comment: Speci men Type: BLOOD SPECIMENOrdering Facility: [facility] Address: [address] [place] [address] Performed By: #### 5 7021-8 ####[facility] LABCLIA [id number] [place] [address] Erythrocyte distribution width (RBC) [Ratio] 14.6 % Normal 11.5-15.0 [facility] Comment on above: Order Comment: Speci men Type: BLOOD SPECIMENOrdering Facility: [facility] Address: [address] [place] [address] Performed By: #### 5 7021-8 ####[facility] LABCLIA [id number] [place] [address] Hematocrit (Bld) [Volume fraction] 42.7 % Normal 36.0-46.0 [facility] Comment on above: Order Comment: Speci men Type: BLOOD SPECIMENOrdering Facility: [facility] Address: [address] [place] [address] Performed By: #### 5 7021-8 ####[facility] LABCLIA [id number] [place] [address] Hemoglobin (Bld) [Mass/Vol] 13.7 g/dL Normal 11.5-15.5 [facility] Comment on above: Order Comment: Speci men Type: BLOOD SPECIMENOrdering Facility: [facility] Address: [address] [place] [address] Performed By: #### 5 7021-8 ####[facility] LABCLIA [id number] [place] [address] Immature granulocytes (Bld) [#/Vol] 10*3/uL Normal <0.10 [facility] Comment on above: Order Comment: Speci men Type: BLOOD SPECIMENOrdering Facility: [facility] Address: [address] [place] [address] Performed By: #### 5 7021-8 ####[facility] LABCLIA [id number] [place] [address] Immature granulocytes/100 WBC (Bld) 0.2 % Normal [facility] Comment on above: Order Comment: Speci men Type: BLOOD SPECIMENOrdering Facility: [facility] Address: [address] [place] [address] Performed By: #### 5 7021-8 ####[facility] LABCLIA [id number] [place] [address] Lymphocytes (Bld) [#/Vol] 1.91 10*3/uL Normal 1.00-4.00 [facility] Comment on above: Order Comment: Speci men Type: BLOOD SPECIMENOrdering Facility: [facility] Address: [address] [place] [address] Performed By: #### 5 7021-8 ####[facility] LABCLIA [id number] [place] [address] Lymphocytes/100 WBC (Bld) 31.7 % Normal [facility] Comment on above: Order Comment: Speci men Type: BLOOD SPECIMENOrdering Facility: [facility] Address: [address] [place] [address] Performed By: #### 5 7021-8 ####[facility] LABCLIA [id number] [place] [address] MCH (RBC) [Entitic mass] 28.7 pg Normal 26.0-34.0 [facility] Comment on above: Order Comment: Speci men Type: BLOOD SPECIMENOrdering Facility: [facility] Address: [address] [place] [address] Performed By: #### 5 7021-8 ####[facility] LABIA [id number] [place] [address] MCHC (RBC) [Mass/Vol] 32.1 g/dL Normal 30.5-36.0 [facility] Comment on above: Order Comment: Speci men Type: BLOOD SPECIMENOrdering Facility: [facility] Address: [address] [place] [address] Performed By: #### 5 7021-8 ####[facility] LABIA [id number] [place] [address] MCV (RBC) [Entitic vol] 89.5 fL Normal 80.0-100.0 [facility] Comment on above: Order Comment: Speci men Type: BLOOD SPECIMENOrdering Facility: [facility] Address: [address] [place] [address] Performed By: #### 5 7021-8 ####[facility] LABIA [id number] [place] [address] Monocytes (Bld) [#/Vol] 0.60 10*3/uL Normal <0.87 [facility] Comment on above: Order Comment: Speci men Type: BLOOD SPECIMENOrdering Facility: [facility] Address: [address] [place] [address] Performed By: #### 5 7021-8 ####[facility] LABCLIA [id number] [place] [address] Monocytes/100 WBC (Bld) 10.0 % Normal [facility] Comment on above: Order Comment: Speci men Type: BLOOD SPECIMENOrdering Facility: [facility] Address: [address] [place] [address] Performed By: #### 5 7021-8 ####[facility] LABCLIA [id number] [place] [address] Neutrophils (Bld) [#/Vol] 3.24 10*3/uL Normal 1.45-7.50 [facility] Comment on above: Order Comment: Speci men Type: BLOOD SPECIMENOrdering Facility: [facility] Address: [address] [address] Performed By: #### 5 7021-8 ####[facility] LABCLIA [id number] [place] [address] Neutrophils/100 WBC (Bld) 53.6 % Normal [facility] Comment on above: Order Comment: Speci men Type: BLOOD SPECIMENOrdering Facility: [facility] Address: [address] [place] [address] Performed By: #### 5 7021-8 ####[facility] LABCLIA [id number] [place] [address] Nucleated RBC (Bld) [#/Vol] 10*3/uL Normal <0.01 [facility] Comment on above: Order Comment: Speci men Type: BLOOD SPECIMENOrdering Facility: [facility] Address: [address] [place] [address] Performed By: #### 5 7021-8 ####[facility] LABCLIA [id number] [place] [address] Nucleated RBC/100 WBC (Bld) [Ratio] 0.0 /100 WBC Normal [facility] Comment on above: Order Comment: Speci men Type: BLOOD SPECIMENOrdering Facility: [facility] Address: [address] [place] [address] Performed By: #### 5 7021-8 ####[facility] LABCLIA [id number] [place] [address] Platelet mean volume (Bld) [Entitic vol] 9.7 fL Normal 9.0-12.7 [facility] Comment on above: Order Comment: Speci men Type: BLOOD SPECIMENOrdering Facility: [facility] Address: [address] [place] [address] Performed By: #### 5 7021-8 ####[facility] LABIA [id number] [place] [address] Platelets (Bld) [#/Vol] 199 10*3/uL Normal 150-400 [facility] Comment on above: Order Comment: Speci men Type: BLOOD SPECIMENOrdering Facility: [facility] Address: [address] [place] [address] Performed By: #### 5 7021-8 ####[facility] LABIA [id number] [place] [address] RBC (Bld) [#/Vol] 4.77 10*6/uL Normal 3.90-5.20 [facility] Comment on above: Order Comment: Speci men Type: BLOOD SPECIMENOrdering Facility: [facility] Address: [address] [place] [address] Performed By: #### 5 7021-8 ####[facility] LABIA [id number] [place] [address] WBC (Bld) [#/Vol] 6.03 10*3/uL Normal 3.70-11.00 [facility] Comment on above: Order Comment: Speci men Type: BLOOD SPECIMENOrdering Facility: [facility] Address: [place] [address] Performed By: #### 5 7021-8 ####[facility] LABCLIA [id number] [place] [address] Basophils (Bld) [#/Vol] 0.06 10*3/uL <0.11 k/uL [facility] Basophils/100 WBC (Bld) 1.0 % [facility] Differential cell count method Nom (Bld) Auto [facility] Eosinophils (Bld) [#/Vol] 0.21 10*3/uL <0.46 k/uL [facility] Eosinophils/100 WBC (Bld) 3.5 % [facility] Erythrocyte distribution width (RBC) [Ratio] 14.6 % 11.5 - 15.0 % [facility] Hematocrit (Bld) [Volume fraction] 42.7 % 36.0 - 46.0 % [facility] Hemoglobin (Bld) [Mass/Vol] 13.7 g/dL 11.5 - 15.5 g/dL [facility] Immature granulocytes (Bld) [#/Vol] <0.10 k/uL [facility] Immature granulocytes/100 WBC (Bld) 0.2 % [facility] Lymphocytes (Bld) [#/Vol] 1.91 10*3/uL 1.00 - 4.00 k/uL [facility] Lymphocytes/100 WBC (Bld) 31.7 % [facility] MCH (RBC) [Entitic mass] 28.7 pg 26.0 - 34.0 pg [facility] MCHC (RBC) [Mass/Vol] 32.1 g/dL 30.5 - 36.0 g/dL [facility] MCV (RBC) [Entitic vol] 89.5 fL 80.0 - 100.0 fL [facility] Monocytes (Bld) [#/Vol] 0.60 10*3/uL <0.87 k/uL [facility] Monocytes/100 WBC (Bld) 10.0 % [facility] Neutrophils (Bld) [#/Vol] 3.24 10*3/uL 1.45 - 7.50 k/uL [facility] Neutrophils/100 WBC (Bld) 53.6 % [facility] Nucleated RBC (Bld) [#/Vol] <0.01 k/uL [facility] Nucleated RBC/100 WBC (Bld) [Ratio] 0.0 /100 WBC [facility] Platelet mean volume (Bld) [Entitic vol] 9.7 fL 9.0 - 12.7 fL [facility] Platelets (Bld) [#/Vol] 199 10*3/uL 150 - 400 k/uL [facility] RBC (Bld) [#/Vol] 4.77 10*6/uL 3.90 - 5.20 m/uL [facility] WBC (Bld) [#/Vol] 6.03 10*3/uL 3.70 - 11.00 k/u L [facility] [place] ---- IVONNE CESPEDES ([id number]) 1955 F Date Time Provider Department 03/13/23 12:30 PM [facility] NURSE ERVIN VILLASENOR During your visit today, we recorded the following information about you: Pepe Yadav 03/13/2023 12:25 PM Signed Patient Identification confirmed: yes. Injection given and documented on OCT per provider order. Pepe Yadav Allergies As of Date: 03/13/2023 Noted Allergy Reaction BUPROPION 12/22/2004 12 - Shortness of Breath ZYBAN (BUPROPION HCL (SMOKING DET*11/07/2018 12 - Shortness of Breath Date Reviewed: 03/13/2023 Reviewed by: Desirae Sargent MA - Fully Assessed Primary Visit Diagnosis:Anemia, unspecified type [D64.9] Other Visit Diagnosis:Megalobla stic anemia due to vitamin B12 deficiency [D53.1] Order(s):TREATMENT PARAMETER-NOT NEEDED [[id number]] Order #: [id number]: 1 BCN NURSING COMMUNICATION [[id number]] Order #: [id number]: 1 STANDING cyanocobalamin 1,000 mcg injectionDisp: Rfl: Prescriptions as of 03/13/2023 - levothyroxine (SYNTHROID) 50 mcg tablet take 1 tablet by mouth every day in the morning on empty stomach - enzymes,digestive (DIGESTIVE ENZYMES ORAL) Take by mouth. - loperamide (IMODIUM) 2 mg cap(s) every other day. - sertraline (ZOLOFT) 50 mg tablet Take 50 mg by mouth once daily. - calcium carbonate (CALCIUM 500 ORAL) Take by mouth. - Cholecalciferol, Vitamin D3, (VITAMIN D) 1,000 unit cap Take 1,000 Units by mouth once daily. 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 Injection given and documented on OCT per provider order. Pepe Yadav Prescriptions ordered this encounter Disp Refills Start End CYANOCOBALAMIN (VIT B-12) 1,000 MCG/* 03/13/2023 03/13/2023 Route: INTRAMUSCULA Encounter Status:Closed by PEPE YADAV on 03/13/23 [place] CNOVSPon 03-13-2023 CNOVSP Visit (SP) Office ([place]) ---- IVONNE CESPEDES ([id number]) 1955 F Date Time Provider Department 03/13/23 11:15 AM MAIKEL LUNSFORD During your visit today, we recorded the following information about you: Temperature Pulse Respiration Blood pressure 97.4 degrees 73/minute 16/minute 145/88 Weight Height 53.8 kg 1.524 m Desirae Sargent MA 03/13/2023 11:26 AM Signed Patient states that her pancreatic enzymes have been off they prescribed Creon but was to expensive, she did buy an over the counter Pancreatic supplement but not sure if that has helped. Patient also has been seeing Dr. Tejeda in [place] due to digestive issues, cramping in lower abdomin they cannot figure out why. RAFA Khoury Vivek, MD 03/31/2023 5:15 PM Signed NAME: Ivonne Cespedes CLINIC NO.: [id number] DATE OF SERVICE: March 13, 2023 (Martín) Referring Provider: Rosa Shearer Consultation requested by Rosa Shearer for an opinion regarding Ms. Ivonne Cespedes, and my final recommendations will be communicated back to the requesting physician by way of shared medical record or letter via US mail. Additional Clinicians involved in Ivonne Cespedes's care: DIAGNOSIS: B12 deficiency History of right breast DCIS ASSESSMENT: 67 year old woman with DCIS diagnosed approximately 4 years ago in October 2018 status post lumpectomy and radiation but no endocrine therapy for chemoprevention. I will try to discuss this with her again at the next visit. However, it is unlikely to help her this far out from primary therapy. She is referred for persistent B12 deficiency and likely has pernicious anemia. Rather than checking for intrinsic factor antibodies, I will just treat the deficiency with B12 replacement intramuscularly every month. PLAN: Labs today please B12 shot after labs today and then weekly x 4 then every 4 weeks RTC in 12 weeks and repeat labs. ___- HPI: CASE HISTORY: Reverse Chronological Order 02/13/2023 B12 level 144 11/01/2022 CBC 5.7 > 13.5/41.6 < 218 normal differential. March 2022 FibroScan F0-F1 no steatosis. January 2022 CT scan abdomen pelvis at [facility] hepatomegaly with hepatic steatosis. June 2021 CT abdomen pelvis right retrocrural lymph node. November 25, [address] 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 October 27, 2018 biopsy showed ductal carcinoma in situ high nuclear grade. The estrogen receptor was positive at 10-20% with progesterone receptor negative DCIS Right Breast - [facility] October 22, 2018 mammogram showing suspicious changes in the right breast. grouping of numerous pleomorphic calcifications within the posterior upper inner quadrant. Initial Visit, March 13, 2023: Ivonne Cespedes presents today Hematology and Oncology evaluation. 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 Additionally has a history of pancreatic insufficiency requiring Creon and fatty liver disease with IBS diarrhea. She has known vitamin B12 deficiency with levels less than 50 and was supposed to start vitamin B12 supplementation which I did do not know if she did. B12 level February 13, 2023 had improved to 144. She is referred for evaluation of B12 supplementation. ___- REVIEW OF SYSTEMS Per HPI and otherwise negative by full review of organ systems. ___- ECOG PERFORMANCE STATUS: 0 PHYSICAL EXAMINATION: Vitals: BP 145/88 Pulse 73 Temp (Src) 97.4 (Temporal) Resp 16 Ht 5' 0 (1.52m) Wt 118 lb 9.6 oz (53.8kg) SpO2 98% BMI 23.16 kg/(m2). Body surface area is 1.51 meters squared. Exam limited to gross visualization where appropriate. Gen.: This is an age-appropriate patient in no acute distress. Head: Appears atraumatic with no visible lesions. Eyes: Pupils equally round and reactive to light, extraocular muscles are intact. Neck: Supple. Respiratory: Appears to be respiring comfortably. Neurologic: Nonfocal to gross visualization. Alert and oriented ?3. Psychiatric: No evidence of inappropriate anxiety or depression. Skin: Visible areas of skin without rash, lesions, wounds or petechiae. ___- ALLERGIES: ALLERGIES Allergen Reactions Bupropion Shortness of Breath Zyban [Bupropion Hc* Shortness of Breath MEDICATIONS: levothyroxine (SYNTHROID) 50 mcg tablet take 1 tablet by mouth every day in the morning on empty (more content not included)... Normal [facility] Comprehensive metabolic 2000 panelon 03-13-2023 Albumin [Mass/Vol] 4.3 g/dL Normal 3.9-4.9 [facility] Comment on above: Order Comment: Speci men Type: BLOOD SPECIMENOrdering Facility: [facility] Address: [address] [place] [address] Performed By: #### 2 4323-8 ####[facility] LABCLIA [id number] [place] [address] ALP [Catalytic activity/Vol] 91 U/L Normal 34-123 [facility] Comment on above: Order Comment: Speci men Type: BLOOD SPECIMENOrdering Facility: [facility] Address: [address] [id number] Performed By: #### 2 4323-8 ####[facility] LABCLIA [id number] [place] [address] ALT [Catalytic activity/Vol] 107 U/L High 7-38 [facility] Comment on above: Order Comment: Speci men Type: BLOOD SPECIMENOrdering Facility: [facility] Address: [address] [place] [address] Performed By: #### 2 4323-8 ####[facility] LABCLIA [id number] [place] [address] Anion gap [Moles/Vol] 7 mmol/L Low 9-18 [facility] Comment on above: Order Comment: Speci men Type: BLOOD SPECIMENOrdering Facility: [facility] Address: [address] [place] [address] Performed By: #### 2 4323-8 ####[facility] LABCLIA [id number] [place] [address] AST [Catalytic activity/Vol] 80 U/L High 13-35 [facility] Comment on above: Order Comment: Speci men Type: BLOOD SPECIMENOrdering Facility: [facility] Address: [address] [place] [address] Performed By: #### 2 4323-8 ####[facility] LABCLIA [id number] [place] [address] Bilirubin [Mass/Vol] 0.3 mg/dL Normal 0.2-1.3 [facility] Comment on above: Order Comment: Speci men Type: BLOOD SPECIMENOrdering Facility: [facility] Address: [address] [place] [address] Performed By: #### 2 4323-8 ####[facility] LABCLIA [id number] [place] [address] Calcium [Mass/Vol] 10.3 mg/dL High 8.5-10.2 [facility] Comment on above: Order Comment: Speci men Type: BLOOD SPECIMENOrdering Facility: [facility] Address: [address] [place] [address] Performed By: #### 2 4323-8 ####[facility] LABCLIA [id number] [place] [address] Chloride [Moles/Vol] 104 mmol/L Normal 97-105 [facility] Comment on above: Order Comment: Speci men Type: BLOOD SPECIMENOrdering Facility: [facility] Address: [address] [place] [address] Performed By: #### 2 4323-8 ####[facility] LABCLIA [id number] [place] [address] CO2 [Moles/Vol] 30 mmol/L Normal 22-30 [facility] Comment on above: Order Comment: Speci men Type: BLOOD SPECIMENOrdering Facility: [facility] Address: [address] [place] [address] Performed By: #### 2 4323-8 ####[facility] LABCLIA [id number] [place] [address] Creatinine [Mass/Vol] 0.62 mg/dL Normal 0.58-0.96 [facility] Comment on above: Order Comment: Speci men Type: BLOOD SPECIMENOrdering Facility: [facility] Address: [address] [place] [address] Performed By: #### 2 4323-8 ####[facility] LABCLIA [id number] [place] [address] ESTIMATED GLOMERULAR FILTRATION RATE 97 mL/min/1.73m??? Normal >=60 [facility] Comment on above: Order Comment: Speci men Type: BLOOD SPECIMENOrdering Facility: [facility] Address: [address] [place] [address] Result Comment: Angela mated Glomerular Filtration Rate (eGFR) is calculated using the 2020 CKD-EPI creatinine equation. This equation utilizes serum creatinine, sex, and age as parameters. The creatinine assay has traceable calibration to isotope dilution-mass spectrometry. Refer to KDIGO guidelines for clinical interpretation. In patients with unstable renal function, e.g. those with acute kidney injury, the eGFR may not accurately reflect actual GFR. Performed By: #### 2 4323-8 ####[facility] LABCLIA [id number] [place] [address] Glucose [Mass/Vol] 102 mg/dL High 74-99 [facility] Comment on above: Order Comment: Speci men Type: BLOOD SPECIMENOrdering Facility: [facility] Address: [address] [place] [address] Result Comment: The [place] Diabetes [employer] (ADA) provides guidance for cutoff values for fasting glucose and random glucose. The ADA defines fasting as no caloric intake for at least 8 hours. Fasting plasma glucose results between 100 to 125 mg/dL indicate increased risk for diabetes (prediabetes). Fasting plasma glucose results greater than or equal to 126 mg/dL meet the criteria for diagnosis of diabetes. In the absence of unequivocal hyperglycemia, results should be confirmed by repeat testing. In a patient with classic symptoms of hyperglycemia or hyperglycemic crisis, random plasma glucose results greater than or equal to 200 mg/dL meet the criteria for diagnosis of diabetes. Reference: Standards of Medical Care in Diabetes 2016, [place] [employer] Association. Diabetes Care. 2016.39(Suppl 1). Performed By: #### 2 4323-8 ####[facility] LABCLIA [id number] [place] [address] Potassium [Moles/Vol] 4.5 mmol/L Normal 3.7-5.1 [facility] Comment on above: Order Comment: Speci men Type: BLOOD SPECIMENOrdering Facility: [facility] Address: [address] [address] Performed By: #### 2 4323-8 ####[facility] LABCLIA [id number] [place] [address] Protein [Mass/Vol] 7.4 g/dL Normal 6.3-8.0 [facility] Comment on above: Order Comment: Hermesi men Type: BLOOD SPECIMENOrdering Facility: [facility] Address: [address] [place] [address] Performed By: #### 2 4323-8 ####[facility] LABCLIA [id number] [place] [address] Sodium [Moles/Vol] 141 mmol/L Normal 136-144 [facility] Comment on above: Order Comment: Speci men Type: BLOOD SPECIMENOrdering Facility: [facility] Address: [address] [place] [address] Performed By: #### 2 4323-8 ####[facility] LABCLIA [id number] [place] [address] Urea nitrogen [Mass/Vol] 10 mg/dL Normal 7-21 [facility] Comment on above: Order Comment: Speci men Type: BLOOD SPECIMENOrdering Facility: [facility] Address: [address] [place] [address] Performed By: #### 2 4323-8 ####[facility] LABCLIA [id number] [address] [id number] Albumin [Mass/Vol] 4.3 g/dL 3.9 - 4.9 g/dL [facility] ALP [Catalytic activity/Vol] 91 U/L 34 - 123 U/L [facility] ALT [Catalytic activity/Vol] 107 U/L High 7 - 38 U/L [facility] Anion gap [Moles/Vol] 7 mmol/L Low 9 - 18 mmol/L [facility] AST [Catalytic activity/Vol] 80 U/L High 13 - 35 U/L [facility] Bilirubin [Mass/Vol] 0.3 mg/dL 0.2 - 1.3 mg/dL [facility] Calcium [Mass/Vol] 10.3 mg/dL High 8.5 - 10.2 mg/dL [facility] Chloride [Moles/Vol] 104 mmol/L 97 - 105 mmol/L [facility] CO2 [Moles/Vol] 30 mmol/L 22 - 30 mmol/L [facility] Creatinine [Mass/Vol] 0.62 mg/dL 0.58 - 0.96 mg/dL [facility] Estimated Glomerular Filtration Rate 97 mL/min/1.73m >=60 mL/min/1.73m [facility] Glucose [Mass/Vol] 102 mg/dL High 74 - 99 mg/dL [facility] Potassium [Moles/Vol] 4.5 mmol/L 3.7 - 5.1 mmol/L [facility] Protein [Mass/Vol] 7.4 g/dL 6.3 - 8.0 g/dL [facility] Sodium [Moles/Vol] 141 mmol/L 136 - 144 mmol/L [facility] Urea nitrogen [Mass/Vol] 10 mg/dL 7 - 21 mg/dL [facility] Ferritin SerPl-mCncon 2022 Ferritin [Mass/Vol] 25.6 ng/mL Normal 14.7-205.1 [facility] Comment on above: Order Comment: Speci men Type: BLOOD SPECIMENOrdering Facility: [facility] Address: [address] [place] [address] Performed By: #### 5 0190-8, 2131-9, 6-4, 2284-8 ####[facility] LABIA [id number] [place] [address] [place] Folate SerPl-mCncon 03-13-20 Folate [Mass/Vol] 15.2 ng/mL Normal >4.7 [facility] Comment on above: Order Comment: Speci men Type: BLOOD SPECIMENOrdering Facility: [facility] Address: [address] [place] [address] Performed By: #### 5 0190-8, 2131-9, 6-4, 2283-8 ####[facility] [id number] [place] [address] [place] INTRINSIC FACTOR BLOCKING AB on 03-13-2023 INTRINSIC FACTOR BLOCKING ANTIBODY Negative Normal Negative [facility] Comment on above: Order Comment: Speci men Type: BLOOD SPECIMENOrdering Facility: [facility] Address: [address] [place] [address] Result Comment: Perf ormed By: [employer] [address] [place] [address] Platform Operations Director: Ata Shaikh MD, PhD Performed By: #### I NTFCT ####[facility] [id number] [place] [address] Iron and Iron binding capaci [facility] 03-13-2023 Iron [Mass/Vol] 48 ug/dL Normal 41-186 [facility] Comment on above: Order Comment: Speci men Type: BLOOD SPECIMENOrdering Facility: [facility] Address: [address] [address] Performed By: #### 5 0190-8, 9, 2275-11, 8 ####[facility] LABIA [id number] [place] [address] [place] Iron binding capacity [Mass/Vol] 374 ug/dL Normal 232-386 [facility] Comment on above: Order Comment: Speci men Type: BLOOD SPECIMENOrdering Facility: [facility] Address: [address] [place] [address] Performed By: #### 5 0190-8, 9, 2275-11, 2284-03 ####[facility] LABIA [id number] [place] [address] [place] Iron/TIBC [Molar ratio] 12.8 % Low 15.0-57.0 [facility] Comment on above: Order Comment: Speci men Type: BLOOD SPECIMENOrdering Facility: [facility] Address: [address] [place] [address] Performed By: #### 5 0190-8, 9, 2275-11, 2284-03 ####[facility] LABIA [id number] [place] [address] [place] Vit [facility] Cobalamin (Vitamin B12) [Mass/Vol] 209 pg/mL Low 232-1245 [facility] Comment on above: Order Comment: Speci men Type: BLOOD SPECIMENOrdering Facility: [facility] Address: [address] [place] [address] Performed By: #### 5 0190-8, 2132-9, 2276-4, 2284-8 ####[facility] LABCLIA [id number] [facility] [id number] [address] [place] Physician Orderon 03-11-2023 Physician Order [id number] 57#1.00CD:127 Normal [facility] Consent for Treatmenton 02-23 Consent for Treatment [id number] 45#1.00CD:127 Normal [facility] Physician Referralon 023 Physician Referral [id number]#1.00CD:127 Normal [facility] Physician Referral [id number] D6#1.00CD:127 Normal [facility] Physician Referralon 023 Physician Referral [id number] 62#1.00CD:127 Normal [facility] Vaginitis/Vaginosis, DNA Pro beon 02-23-2023 Brenda sp rRNA Probe Ql (Vag fld) Negative Invalid Interpretation Code Negative [facility] Comment on above: Performed By: #### 3 [id number] ####[facility] [id number] [place] [address] G. vaginalis rRNA Probe Ql (Genital specimen) Negative Invalid Interpretation Code Negative [facility] Comment on above: Performed By: #### 3 [id number] ####[facility] [id number] [place] [address] T. vaginalis rRNA Probe Ql (Genital specimen) Negative Invalid Interpretation Code Negative [facility] Comment on above: Result Comment: Perf ormed at: [facility] [address] [id number] PhD Sheryl [place] Performed By: #### 3 [id number] ####[facility] [id number] [place] [address] Ambulatory Visit Summaryon 0 02-22-2023 Ambulatory Visit Summary IVONNE CESPEDES :1955 Visit Date:02/22/2023 Ambulatory Visit Instructions Your Diagnosis Pancreatic insufficiency Loose stools Fatty liver History of colon polyps Vitamin B12 deficiency Abdominal cramping Irritable bowel syndrome with diarrhea Family history of colon cancer Your Care Team Attending Physician - Rosa Shearer CNP Primary Care Physician - NURYS BOGGS MD This Is Your Medications List pancrelipase (Creon 24,000 units oral delayed release capsule) Contact prescribing physician if questions or concerns acetaminophen-chlor zoxazone (Extra Strength Tylenol Aches and Strains) ascorbic acid (Vitamin C) cholecalciferol (Vitamin D3) dicyclomine (Bentyl 10 mg Cap) dicyclomine (dicyclomine 10 mg Cap) levothyroxine (levothyroxine 50 mcg (0.05 mg) Tab) multivitamin with minerals (Bruce/Mag 2001 Plus Vitamins C and D) pancrelipase (Creon) sertraline (Zoloft 50 mg Tab) [Image Removed: STOP]Stop taking these medications chlordiazepoxide-cl idinium (Librax 5 mg-2.5 mg Cap) Procedures Performed Colonoscopy (05/16/2021), BREAST BIOPSY (11/25/2018), Tubal ligation (1984), Biopsy of breast, Hysterectomy, Laparoscopic cholecystectomy. Discharge Vitals Temperature (Temporal Artery) 36 ?C Heart Rate (Peripheral) 75 Blood Pressure 120/82 Height 152 cm Height 60 in Weight 53.9 kg Weight 118.58 lb BMI 23.33 What to do next Scheduled Follow-Up Appointments Saturday 12:40 PM EDT With: Rosa Shearer CNP Where: [facility] Normal [facility] Gastroenterology Office/Clin ic Noteon 02-22-2023 Gastroenterology Office/Clinic Note Chief Complaint Abdominal pain. HPI Staff This is a 67 year old female who presents today for a follow up from 11/22/22 office visit and lab results. Patient c/o abdominal pain. History of Present Illness Patient is a 67-year-old female who presents for follow-up. Patient with history of pancreatic insufficiency and is currently taking Creon 3 times daily with meals. Patient also with history of fatty liver disease and IBS with diarrhea. Patient was previously evaluated by Dr. Hameed 10/10/2022 for RUQ and epigastric pain and was advised to follow-up with [facility] regarding. Patient had previous stool testing that was negative for infectious process. Previous fecal pancreatic elastase testing 05/2022 was low at 88. Patient had previous labs 10/2022 that revealed normal H&H, normal BUN, normal creatinine, normal liver enzymes, normal vitamin A and E. Patient with low B12 level of less than 50 previously and was advised to start vitamin B12 supplementation. Most recent B12 level 02/13/2023 had improved at 144. Patient had previously reported she was taking Questran in the past that had helped her diarrhea however did not help her cramping. Patient had previous ultrasound of pelvis 09/2022 that revealed no acute pathology. Patient had previously reported during visit with me that she was having lower abdominal cramping that radiated to her upper abdomen over the last 8 months prior. She had previously reported she had questions whether or not to take Creon in relation to potential side effects. Patient was previously educated regarding importance of taking Creon for her pancreatic insufficiency and was agreeable to try Creon. Patient was also educated to take Questran 1/4 of a pack 3 times a week to evaluate for improvement in diarrhea. Patient was previously taking Creon 24,000 units 3 times daily with meals. Patient had previous FibroScan 03/2022 that revealed F0?F1 fibrosis, no steatosis. Previous colonoscopy in 2015 revealed suboptimal prep, diverticulosis, transverse colon polyp that pathology revealed was inflammatory reactive polyp and was to repeat colonoscopy in 1 year. Repeat colonoscopy 04/2021 revealed normal terminal ileum, diverticulosis, hemorrhoids, hyperplastic polyp removed from descending colon and was recommended to have repeat colonoscopy in 2025. Patient had previous CT 06/2021 that showed enlarged right retrocrural lymph node- to follow-up with PCP regarding, and no evidence of diverticulitis. Patient had repeat CT 01/2022 at [facility] that showed hepatomegaly and hepatic steatosis. Patient with family history of colon cancer?patient's sister. Patient reported during most recent visit with me 10/2022 that she felt better since starting Creon and was having improved stool consistency and abdominal cramping. She explained she was having 50% formed stools and 50% loose stools. Patient was also educated regarding fiber supplementation daily. During today's visit, patient reports she has stopped taking Creon 1.5 months ago and started taking some form of OTC pancreatic enzymes. She reports she would like to decrease her Creon. She explains she is still having lower abdominal cramping that occurs daily. She explains she has abdominal cramping without regard to food or bowel movements. She explains is having 50% formed stools and 50% loose stools depending on what she eats. Is no longer taking Questran over the last 3 months. She is not taking fiber supplementation. Takes probiotics that does not help her diarrhea or cramping. Is not taking Bentyl currently and explains Bentyl did not help her. Does not eat much meat. Patient also with hx. IBS with diarrhea. Patient reports she is not taking Librax and does not want to take this medication. Denies black/bloody stools, nausea/vomiting, fevers/chills, and denies having any other GI complaints. Review of Systems ROS - Provider Constitutional: no fever, no chills. Skin: no Jaundice. ENMT: Denies dysphagia and heartburn. Respiratory: no shortness of breath. Cardiovascular: no chest pain. Gastrointestinal: no nausea, no vomiting, no diarrhea, no GI bleeding. Physical Exam Vitals & Measurements T: 36 ?C(Temporal Artery) HR: 75(Peripheral) BP: 120/82 HT: 60 in HT: 152 cm WT: 53.9 kg WT: 118.58 lb BMI: 23.33 General: Well developed, well nourished, in no acute distress Head: Normocephalic/atrau matic Lungs: Normal respiratory effort and clear to auscultation Cardio: Regular rate and rhythm, normal S1 and S2, no murmur, no rub Abdomen: Soft, non-distended, non-tender. Normoactive bowel sounds present in all 4 abdominal quadrants, bilaterally. Mental Status: Alert and oriented x3. Normal mood and affect Assessment/Plan 1. Pancreatic insufficiency (K86.89: Other specified diseases of pancreas) Fecal pancreatic elastase low at 88 05/2022. Stopped taking Creon recently. Labs completed 11/01/2022 revealed normal H&H, normal BUN, normal creatinine, normal liver enzymes, normal vitamin A and E. Lo (more content not included)... Normal [facility] Comment on above: Result Comment: Elec tronically Signed By: Rosa Shearer CNP\.nikhil\Date and Time Signed: 02/22/23 12:49 EDT Patient Educationon 02-23-20 Patient Education Mental and Behavioral Health Fatty Liver Disease The liver converts food into energy, removes toxic material from the blood, makes important proteins, and absorbs necessary vitamins from food. Fatty liver disease occurs when too much fat has built up in your liver cells. Fatty liver disease is also called hepatic steatosis. In many cases, fatty liver disease does not cause symptoms or problems. It is often diagnosed when tests are being done for other reasons. However, over time, fatty liver can cause inflammation that may lead to more serious liver problems, such as scarring of the liver (cirrhosis) and liver failure. Fatty liver is associated with insulin resistance, increased body fat, high blood pressure (hypertension), and high cholesterol. These are features of metabolic syndrome and increase your risk for stroke, diabetes, and heart disease. What are the causes? This condition may be caused by components of metabolic syndrome: ? Obesity. ? Insulin resistance. ? High cholesterol. Other causes: ? Alcohol abuse. ? Poor nutrition. ? Kinsman syndrome. ? . ? Certain drugs. ? Poisons. ? Some viral infections. What increases the risk? You are more likely to develop this condition if you: ? Abuse alcohol. ? Are overweight. ? Have diabetes. ? Have hepatitis. ? Have a high triglyceride level. ? Are . What are the signs or symptoms? Fatty liver disease often does not cause symptoms. If symptoms do develop, they can include: ? Fatigue and weakness. ? Weight loss. ? Confusion. ? Nausea, vomiting, or abdominal pain. ? Yellowing of your skin and the white parts of your eyes (jaundice). ? Itchy skin. How is this diagnosed? This condition may be diagnosed by: ? A physical exam and your medical history. ? Blood tests. ? Imaging tests, such as an ultrasound, CT scan, or MRI. ? A liver biopsy. A small sample of liver tissue is removed using a needle. The sample is then looked at under a microscope. How is this treated? Fatty liver disease is often caused by other health conditions. Treatment for fatty liver may involve medicines and lifestyle changes to manage conditions such as: ? Alcoholism. ? High cholesterol. ? Diabetes. ? Being overweight or obese. Follow these instructions at home: ? Do not drink alcohol. If you have trouble quitting, ask your health care provider how to safely quit with the help of medicine or a supervised program. This is important to keep your condition from getting worse. ? Eat a healthy diet as told by your health care provider. Ask your health care provider about working with a dietitian to develop an eating plan. ? Exercise regularly. This can help you lose weight and control your cholesterol and diabetes. Talk to your health care provider about an exercise plan and which activities are best for you. ? Take zmbq-dun-genoiyl and prescription medicines only as told by your health care provider. ? Keep all follow-up visits. This is important. Contact a health care provider if: ? You have trouble controlling your: ? Blood sugar. This is especially important if you have diabetes. ? Cholesterol. ? Drinking of alcohol. Get help right away if: ? You have abdominal pain. ? You have jaundice. ? You have nausea and are vomiting. ? You vomit blood or material that looks like coffee grounds. ? You have stools that are black, tar-like, or bloody. Summary ? Fatty liver disease develops when too much fat builds up in the cells of your liver. ? Fatty liver disease often causes no symptoms or problems. However, over time, fatty liver can cause inflammation that may lead to more serious liver problems, such as scarring of the liver (cirrhosis). ? You are more likely to develop this condition if you abuse alcohol, are , are overweight, have diabetes, have hepatitis, or have high triglyceride or cholesterol levels. ? Contact your health care provider if you have trouble controlling your blood sugar, cholesterol, or drinking of alcohol. This information is not intended to replace advice given to you by your health care provider. Make sure you discuss any questions you have with your health care provider. Document Revised: 05/25/2021 Document Reviewed: 05/25/2021 [facility] Patient Education ? 2022 [employer] [facility] Physician Orderon 02-21-2023 Physician Order [id number]#[id number]:127 [facility] CHEMISTRYOrdered By: [employer] on 02-13-2023 Cobalamin (Vitamin B12) [Mass/Vol] 144 pg/mL Normal 50 - 1500 pg/mL [facility] Remisol Vit B12on 02-13-2023 Cobalamin (Vitamin B12) [Mass/Vol] 144 pg/mL Normal 50-1500 [facility] Comment on above: Performed By: #### 2 [id number] ####[facility] [address] [place] [address] CT LUNG CANCER SCREENINGon 0 11-30-2022 CT LUNG CANCER SCREENING EXAMINATION: CT LUNG CANCER SCREENING HISTORY: Nicotine dependence COMPARISON: CT chest 10/24/2021 TECHNIQUE: Axial, Coronal, and Sagittal images were created without the administration of IV contrast material. Dose reduction techniques were achieved by using automated exposure control and/or adjustment of mA and/or kV according to patient size and/or use of iterative reconstruction technique. FINDINGS: LUNGS: A few small calcified and noncalcified nodules bilaterally which remain stable; suspect chronic granulomatous disease. No new nodules or infiltrates. Minimal chronic interstitial changes. PLEURA: No mass, effusion, or pneumothorax. VASCULATURE: No abnormality. ISIDORO: Calcified right hilar lymph nodes. MEDIASTINUM: Calcified lymph nodes. CARDIAC: No enlargement, pericardial thickening, or significant calcification. AORTA: No aneurysm or dissection. CHEST WALL: No mass or axillary adenopathy BONES: No bone lesion or fracture. LIMITED ABDOMEN: No suspicious findings. Limited images of the upper abdomen. OTHER: Negative. IMPRESSION: 1. Lung-RADS 2- Benign Appearance or Behavior. Nodules with a very low likelihood of becoming a clinically active cancer due to size or lack of growth. Follow-up CT Chest in 1 year. Electronically authenticated by: CHAPARRO ECKERT Date: 2022-11-30 14:17 Normal [facility] Gastroenterology Office/Clin ic Noteon 11-22-2022 Gastroenterology Office/Clinic Note Chief Complaint Creon followup. HPI Staff Patient is a 67 year old female here today to followup from 11/01/22 office visit and started Creon. History of Present Illness Patient is a 67-year-old female who presents for follow-up. Patient was previously evaluated 11/01/2022 and has history of IBS with diarrhea, fatty liver disease, and pancreatic insufficiency. Patient was previously evaluated by Dr. Hameed 10/10/2022 for RUQ and epigastric pain. Note indicated patient was to follow-up with [facility] regarding her pain. Patient had previous stool testing that was negative for infectious process. Previous fecal pancreatic elastase testing was low and I had ordered for patient to start Creon and labs to evaluate for vitamin deficiencies. Labs completed 11/01/2022 revealed normal H&H, normal BUN, normal creatinine, normal liver enzymes, normal vitamin A and E. Low B12 level at less than 50?patient was advised to start vitamin B12 supplementation. Patient was previously taking Questran that helped her diarrhea however did not help her cramping. Patient had previous ultrasound of the pelvis 09/2022 that revealed no acute pathology. Patient reported during visit with me that she had been having lower abdominal cramping that radiates to her upper abdomen over the last 8 months and was occurring daily. She reported abdominal cramping was relieved some with heating pad. She explained she had Creon however was questioning whether or not to take it as she evaluated the side effects and was concerned regarding. She also reported taking Questran 1 time a month. Patient was educated regarding importance of taking Creon 3 times a day with meals regarding her pancreatic insufficiency. Patient was agreeable to plan of care. Patient was also educated to take Questran 1/4 packet 3 times a week to evaluate for improvement in diarrhea. Patient had previous FibroScan 03/2022 that showed F0-F1 no steatosis.fibrosis, Previous colonoscopy 10/2015 that revealed suboptimal prep, diverticulosis, transverse colon polyp that pathology revealed was inflammatory reactive polyp and was to repeat colonoscopy in 1 year. Repeat colonoscopy 04/2021 revealed normal terminal ileum, diverticulosis, hemorrhoids, hyperplastic polyp removed from descending colon and was recommended to have repeat colonoscopy in 2025. Patient had previous CT 06/2021 that showed enlarged right retrocrural lymph node and no evidence of diverticulitis. Patient had repeat CT 01/2022 at [facility] that showed hepatomegaly and hepatic steatosis. Patient with family history of colon cancer?patient's sister. During today's visit, patient reports since starting Creon 11/02/22, she is feeling better and having improved stool consistency and abdominal cramping. Reports abdominal cramping is occurring less often with Creon. Is having 50% of the time loose stools and 50% of the time formed stools, was previously having all loose stools. Is having 1-3 BMs daily. Denies black/bloody stools, fevers/chills, nausea/vomiting, and denies having any other GI complaints. Review of Systems PHQ Score Initial Depression Screen Score: 0 ROS - Provider Constitutional: no fever, no chills. Skin: no Jaundice. ENMT: Denies dysphagia and heartburn. Respiratory: no shortness of breath. Cardiovascular: no chest pain. Gastrointestinal: no nausea, no vomiting, yes loose stools, no GI bleeding. Physical Exam Vitals & Measurements T: 36.4 ?C(Temporal Artery) HR: 72(Peripheral) BP: 125/84 HT: 60 in HT: 152 cm WT: 56.4 kg WT: 124.08 lb BMI: 24.41 General: Well developed, well nourished, in no acute distress Head: Normocephalic/atrau matic Lungs: Normal respiratory effort and clear to auscultation Cardio: Regular rate and rhythm, normal S1 and S2, no murmur, no rub Abdomen: Soft, non-distended, non-tender. Normoactive bowel sounds present in all 4 abdominal quadrants, bilaterally. Mental Status: Alert and oriented x3. Normal mood and affect Assessment/Plan 1. Pancreatic insufficiency (K86.89: Other specified diseases of pancreas) Fecal pancreatic elastase low at 88 05/2022. Improved stool consistency with Creon. More formed stools. Labs completed 11/01/2022 revealed normal H&H, normal BUN, normal creatinine, normal liver enzymes, normal vitamin A and E. Low B12 level at less than 50?patient was advised to start vitamin B12 supplementation. Previous colonoscopy 10/2015 that revealed suboptimal prep, diverticulosis, transverse colon polyp that pathology revealed was inflammatory reactive polyp and was to repeat colonoscopy in 1 year. Repeat colonoscopy 04/2021 revealed normal terminal ileum, diverticulosis, hemorrhoids, hyperplastic polyp removed from descending colon and was recommended to have repeat colonoscopy in 2025. CT 01/2022 at [facility] that showed hepatomegaly and hepatic steatosis. Educated regarding importance of taking Creon TID with meals. Continue Creon TID with meals. Educated regarding fiber supplementation d (more content not included)... Normal [facility] Comment on above: Result Comment: Elec tronically Signed By: Olu HERNANDEZ, Rsoa Graham\.nikhil\Date and Time Signed: 11/22/22 13:33 EDT Patient Educationon 11-23-19 Patient Education Gastroenterology Fatty Liver Disease Fatty liver disease occurs when too much fat has built up in your liver cells. Fatty liver disease is also called hepatic steatosis or steatohepatitis. The liver removes harmful substances from your bloodstream and produces fluids that your body needs. It also helps your body use and store energy from the food you eat. In many cases, fatty liver disease does not cause symptoms or problems. It is often diagnosed when tests are being done for other reasons. However, over time, fatty liver can cause inflammation that may lead to more serious liver problems, such as scarring of the liver (cirrhosis) and liver failure. Fatty liver is associated with insulin resistance, increased body fat, high blood pressure (hypertension), and high cholesterol. These are features of metabolic syndrome and increase your risk for stroke, diabetes, and heart disease. What are the causes? This condition may be caused by: ? Drinking too much alcohol. ? Poor nutrition. ? Obesity. ? Breanne's syndrome. ? Diabetes. ? High cholesterol. ? Certain drugs. ? Poisons. ? Some viral infections. ? . What increases the risk? You are more likely to develop this condition if you: ? Abuse alcohol. ? Are overweight. ? Have diabetes. ? Have hepatitis. ? Have a high triglyceride level. ? Are . What are the signs or symptoms? Fatty liver disease often does not cause symptoms. If symptoms do develop, they can include: ? Fatigue. ? Weakness. ? Weight loss. ? Confusion. ? Abdominal pain. ? Nausea and vomiting. ? Yellowing of your skin and the white parts of your eyes (jaundice). ? Itchy skin. How is this diagnosed? This condition may be diagnosed by: ? A physical exam and medical history. ? Blood tests. ? Imaging tests, such as an ultrasound, CT scan, or MRI. ? A liver biopsy. A small sample of liver tissue is removed using a needle. The sample is then looked at under a microscope. How is this treated? Fatty liver disease is often caused by other health conditions. Treatment for fatty liver may involve medicines and lifestyle changes to manage conditions such as: ? Alcoholism. ? High cholesterol. ? Diabetes. ? Being overweight or obese. Follow these instructions at home: ? Do not drink alcohol. If you have trouble quitting, ask your health care provider how to safely quit with the help of medicine or a supervised program. This is important to keep your condition from getting worse. ? Eat a healthy diet as told by your health care provider. Ask your health care provider about working with a diet and animal nutritionist (dietitian) to develop an eating plan. ? Exercise regularly. This can help you lose weight and control your cholesterol and diabetes. Talk to your health care provider about an exercise plan and which activities are best for you. ? Take dbsz-jyj-lfrzvsu and prescription medicines only as told by your health care provider. ? Keep all follow-up visits as told by your health care provider. This is important. Contact a health care provider if: You have trouble controlling your: ? Blood sugar. This is especially important if you have diabetes. ? Cholesterol. ? Drinking of alcohol. Get help right away if: ? You have abdominal pain. ? You have jaundice. ? You have nausea and vomiting. ? You vomit blood or material that looks like coffee grounds. ? You have stools that are black, tar-like, or bloody. Summary ? Fatty liver disease develops when too much fat builds up in the cells of your liver. ? Fatty liver disease often causes no symptoms or problems. However, over time, fatty liver can cause inflammation that may lead to more serious liver problems, such as scarring of the liver (cirrhosis). ? You are more likely to develop this condition if you abuse alcohol, are , are overweight, have diabetes, have hepatitis, or have high triglyceride levels. ? Contact your health care provider if you have trouble controlling your weight, blood sugar, cholesterol, or drinking of alcohol. This information is not intended to replace advice given to you by your health care provider. Make sure you discuss any questions you have with your health care provider. Document Released: 09/27/2006 Document Revised: 07/25/2018 Document Reviewed: 05/21/2018 [employer] Patient Education ? 2019 [employer] Normal [facility] Vit Aon 11-13-2022 Retinol [Mass/Vol] 33.1 microgram/dL Invalid Interpretation Code 22.0-69.5 [facility] Comment on above: Result Comment: Refe rence intervals for vitamin A determined from [facility] internal studies. Individuals with vitamin A less than 20 ug/dL are considered vitamin A deficient and those with serum concentrations less than 10 ug/dL are considered severely deficient. This test was developed and its performance characteristics determined by [facility]. It has not been cleared or approved by the Food and Drug Administration. Performed at: [address] [id number] MD Mohsen Urbina Performed By: #### 2 [id number] ####[facility] [address] [place] [address] Vit Nadir 11-13-2022 Alpha tocopherol [Mass/Vol] 10.1 mg/L Invalid Interpretation Code 9.0-29.0 [facility] Comment on above: Result Comment: This test was developed and its performance characteristics determined by [facility]. It has not been cleared or approved by the Food and Drug Administration. Performed By: #### 2 [id number] ####[facility] [address] [place] [address] Gamma tocopherol [Mass/Vol] 1.7 mg/L Invalid Interpretation Code 0.5-4.9 [facility] Comment on above: Result Comment: This test was developed and its performance characteristics determined by [facility]. It has not been cleared or approved by the Food and Drug Administration. Reference intervals for alpha and gamma-tocopherol determined from National Health and Nutrition Examination Survey, 9920-3648. Individuals with alpha-tocopherol levels less than 5.0 mg/L are considered vitamin E deficient. Performed at: [address] [id number] MD Mohsen Urbina Performed By: #### 2 [id number] ####[facility] [address] [place] [address] Coding Summary.on 11-07-2022 Coding Summary. [id number] KJn0vLm+PGhlYWQ+PE1 RWDBoX90mgESsfD4eY9 NMTElOSywgQVBQTElOS eGxkiJrUW6crGOyBDVb IC8+ZD3tCWUpVdkjsYH my9F9hUB0B12hrn5tHU indVM4YYTqOxFknmmtq 6pqqCu6YVhdLcwhJlLk UFJapY45VXA5yI83Nq1 8iGUchTUjv1pjzYn1Fu SuDFNjNNP2qXoqEQtrw 0ZcBKRtV34gsSTla9G3 IGNvbGxhcHNlOyBlbXB 5hD1bEWxfocxda3lvvz buDyf5hq66kZBky3Q7f IR8O2OwpeV0HZYyxFBq HpqenZYSkV7tjlazy1c clrubWcVdKQZyPPr1VF o3YGVohFccAxIoKU46T FO0OXRhxpGkI1CdCIZi yEelWnH7a3J8Vd0MO5E BSftaW2HEUWTORHpmxF Q+SB59vz18Z6CeRokeK gz3SEPeSNH6bGU8eM0h BOCeGVnzm4R2tLX7S4J wqhWamz1dr6ryWHGrMX woC66hdEBkq1Q0RXFfw MC5EAEwgUrkDbCsnQ38 Oyc+WVYflNmme6WaSpk kz6ajr4taaMv6AteuTM ErzdUzaZmaDCK8g6TzG i1dFTTlqBQ0lVE7mT5f TxShLkF9CMqhT759VvH eaYSdHrmxR18pY3TenK A+NATlTap4EQBynSznX U9xV5JbIHCnuhrexDLe hPqzQL8cXUNolosjFZK vgZ3qVWXmS4i6JxMbWh T7EUqgW9OlBWNpadumS f63fP0xDaObEwK2VFcs U0OnshM5APFbhOKpHGt pNZM8R41pi8U4XCTzYT CfEAP8bAX9eI5ngGqaw jogbGVmdDsgdmVydGlj STzcOVdrM386VBQuqFa nPkNvZGluZyBEYXRlOi AgMDMvMTUvMjAyMzwvd GQ+QMYlLVR6nHreLKQh dFHbULvaTg6ilRfnvLa sSQ7aFZFmqxsuFUFaxT 9oRFZouSLsiJirTN6zM BUzqyqix911LuHfIJG6 SRFncIAlL6ZswV3gGvP tFTHyANWxI2GwiNUmVS lkU542PVjuJtJ1CEIhp mPlR9OzDWWrcTweOrM7 b1V4Xv0Az4NlpslwZ8Z noWHlYuXeBygxVBd8M7 RkPjwvdHI+PG41QQNmM W84PEz1GNB5jGalHYjd TEYaQ5XxtU0nKwYoWFR kZGRkOyc+PHRhYmxlIH dpZHRoPScxMDAlJyBzd KbjGG6kFl4dWKBhDLBj pQcomHMiOsMif0isKMV tCFdcNK6ffYhtF9TulV G7QDVrk6w2Aq32O65yU 3JvdXA+VGWeiNG9bPP1 cK8wZxFsGeP7XWsrM72 3NzTnoFRpDyjgk7ada5 prjJn4XrQ3WMIwwwAth QiaMMX2l8HfFa30L45g IHdpZHRoPSIxNSUiIHZ yfZthfk4qjP8lRe5+PG WofHY3bKZ7bN4oOvGcP iY9YSdaW735RbZipPRz Whdwp0udz2yuoVa1VtN vOMRgzkNitHekMZM7s2 IoVt62G3SygXepu5FiU kc5ul42qQWww5B3yGQ8 U8RgTTSwpfolsOAnlNs bQK1qZLDoswwpLLFwgX 2oPFObH5c6AvOmFwD8E YfoV3TywsP5NYWkmXXv NQThcJOEkB3puljqa3m yijkgJrFiEALkEWp2UP d4RMUkvVcqWpOoGLR5M zH8ECI7rXKqcK7auXvz yxwndM9mUxe+RGG0lJU ccQXXVX1vCtulkLQ+PH XzKRY6mDloNDopUTWiv K4yBWTfM9j6MtBpIdB8 ISfmW7GtkkI1HZLgxNP qUPYndUQVlM6cwsucb7 tcdhfqYnExDMTvIKn8X Nc4GUEeuJneTfAtFXS2 PkR3OAM0vAZbvD9arDv slilbzW3bWps+QmlydG vjNSQ1AHy0C9EtSeu6E RGwyJhtXQ6jkTMrEXcx Ls0dfFxmrHxxEB1uFNP mqcrcm766SrGxv5luYE GscIQnSOzvKQR7W38uc 7P5MDChNUTyELL3zCW8 kP5ojMnairwygYYjzGo gdmVydGljYWwtYWxpZ2 66SBMskUfkAnQsHJn6G 9AjUwg3NSZsgVxpDC7j iHFoELlaGy1ghQerjAm yED4tKFIfbxegb231Pr Btt7ujFKNltKNxYKriX JW7E40nl3S5SATeZLBm GTO8iAV0iE5zaFopwrz gbGVmdDsgdmVydGljYW mqVExnX139WLYgnAnnK rKizUg0D6WeIyc6MHOr dCqoDF8ozSSlTUpiXh5 rcYznhFpsFY3fIOKhgc bnr371EbKjl9geCNGmi TDvYOzaEJL8M47re1M0 DTNuMICgGPM9gXP5mF0 hbGlnbjogbGVmdDsgdm NwiFraOAwySUtiN086Q HRvcDsnPlBhdGllbnQg LZwkIEp9E2LmXfypnQW +MQ19FNIjAW94eBQinK Mgx9suvWn5OwJsOCPbR QN8yWhpAFmzc5TkZDSq F26diQOna2R2MONafRj qzVGwDzPxhVT7yE8kGZ kvvloui2vebznqQohbv 5ubxy72gR66S39zNIld ZHRoPSIzMCUiIHZhbGl wgs6rxQ0dVp2+PGNvbC O4yRM5rG2tIYPzDdY8J WatJ486VdKluZWjLhxg w4rns4glhHm0JtW0PMO sljXfpJxcYKQ5a7TuJq 42S50lGKiwFBNjLVOxQ FShIJDiiBbxyw6eiX9m Ii8+YGQoxRB6eAO2tL8 cHjJiEaK6ULlzX510Qh QmuWHaXcdzE25bM9Lvs XA+IPFiMkh6DXEynZtz JV2fcHGbWMckCj5eNLO 8EiYvUmEwJVppZ3KbZL ZmyifkbajwuNL9UDIiK VDgaK50Tq5hfRasVVVr bWIUkZ8dnelth8kiggx tZcXnNHJfFPh7DKk7UB IfzCaoOtFsOIV7BbQ7T ER7uCMwzE7xjYghtnpi pB7vZ0KbSDMttmnnNx1 6qG0kAuSjYiV3MGjtVe c+IpDUOHxxF9hWAoyXI UTMFZ78HV76pPDby1F6 tAZ3W9HjVCTnoufmtgb hoDK1RYMnLSBglG14oJ KxAXmsYi0hc8A5z217X QOiCERdpV47Vz2ixOvh RRRvmFPFtI7nzlode6n qrhtdSwRdUGRcBIq8WU h2UQUivOlfJcQdVVC0K nD7UED1pZJeuF6dyHzq fqedgD6fKrx+MDkvMDg vYRp9WikvwGG+PHRkIH W1zKqjYKmpEQJwiB1lF YLlL0v4MmIdMuV4CHet O9DzLKOsalhgVi69pV6 hUvKmNsR1LIomL2Gnrx M4AZOzcYCaEMdbCTQ8M 11lt2I4PVNcUFGgFYE3 fRU7gJ5huPqnqcaliOS mdDsgdmVydGljYWwtYW aeZ283ZDHlgSreArT6V KqoRQDmIT50MA37uQJs v0B9oLQ8M9UvINIvpcv nbksqiVZ8TBPlIJNwaV 89bQGwMTwjPd3ie8I7i 312DQYzCJYegV42Oo4h bWjlOTBysMXIqJ7vgqd um9izjyvgTxHpCSNuQM e5SHr6EUFsdHsaPjVsE FK3HgG1BIE8gFKrgZ9b wVtqsjtdwO3fDhs+RmV cXFiwND13FZ54tCCzk0 I2zLK9Y9PoVMFjkvztw kacaQV0DGByEBOzzI81 xLZiEJqhOq0xa1W0t21 0XFHgEEUxeP86Rm1joB duFMHluBQOrL0ialsye 7mdermcAmWbJCEfODi1 PBk1IODhuWtwUqZhIWT 1EvA7TFG6kFKxnT7lqT wxrqfhcT5nVxb+T3V0c XE8oXBwtRnnjNI+PC90 sv69Y2TaNkqmEfm0EUA uVCI1uVN8aS2jNIRuEK gor3X0tBF2H9JahaYbs q7wh5fhICRsZKtxB27j uCFbr2F7ZQDumSU9WKL kjUvrCgUfhZ63Qzd+PG FquUcpd4ZuZfyqr5dng 7ejuOn0TkJbQBFifsEz jOmqHXM3a5MoVd36N36 sIHdpZHRoPSIzMCUiIH TbyJpdmt2krJ6kQv2+P QQndSF8aVE4bN2bBkKt XhC8SOzjM537VbRebOI yXtvij5qqx5axyNs6Gg BjMQBicjKfwXihBCV0g 7UiFx52U1NcxXptk3Ke Eik3kt29aSDge8K0wMA 8I3LtPFIiwuwwgSUlpV mwBK5lHFKcpiwhICDdt E5nDLZzY5x8BlNlTfX7 OLchN4LtshY0CJAziYR vEXXpePXZqJ4amnbuu9 zayokkCxUuHGKxZAo7K Zl7HWCofUwjGyHuELW8 OaN1GYD7aZMmxJ6neOs aniqgeX2tWsu+UGh5c2 ovkADoRH9loVJ7RK56H B47pQYfq0F5dAX2T7Og JUQazqiapfjidNV2BDA sGHFeuQ31Tc7oyMyrVt 3eSNIxWMD6QIXlzIMgU 6WkkI4dLoBcPUFxMLFt E1LoqOQrPSkhZ191TDv wLmB3EGCvepOgS3PzFJ JsiYhmRiP1h2N2Ko0DR T71MJ91GF38jAAqh4L2 rHJ7G7GbAJUxritcmfx tvOU4ETOsXHOhfV92Qg 0erQynBt8vMXBaERT8G MRsvEFnO1ZimO7xEzNa JBFrWACuG5QtmTRpIXp wI291VBjlHnS9KSRnoj JlY2ZlZDUvpFgjFfT6r 5K8Hl3QBn02MS18VM82 hZDgf2D3yYS2U4EgVJD lguimpkvhkQK5YLUnWQ EflU74Mp2eqPmuWr4sC WNgKGZ3FOEuvHHyQ8Jz zH9vBzYkKZBjFWQeJ0R ceZVyEFckX454LYwoBq E2CHWxnoHtV3KbSUMkl WtdZhK1w7G2Zz4WBBar tsv7U7FkIfnrcAU+PC9 9ARWyDQ72xFDecFXxm8 lauLt5PkEvRKArLBL6v ZmiMXzvm4YiVJHyF82m bGFw (more content not included)... Normal [facility] Advance Beneficiary Notifica tionson 11-01-2022 Advance Beneficiary Notifications [id number]#1.00CD:127 Normal [facility] Ambulatory Visit Summaryon 0 11-01-2022 Ambulatory Visit Summary IVONNE CESPEDES :1955 Visit Date:11/01/2022 Ambulatory Visit Instructions Your Diagnosis Pancreatic insufficiency Abdominal cramping Bile salt-induced diarrhea Fatty liver History of colon polyps Family history of colon cancer Your Care Team Attending Physician - Rosa Shearer CNP Primary Care Physician - NURYS BOGGS MD This Is Your Medications List Contact prescribing physician if questions or concerns acetaminophen-chlor zoxazone (Extra Strength Tylenol Aches and Strains) ascorbic acid (Vitamin C) chlordiazepoxide-cl idinium (Librax 5 mg-2.5 mg Cap) cholecalciferol (Vitamin D3) cholestyramine (Questran 4 g/9 g oral powder) dicyclomine (Bentyl 10 mg Cap) dicyclomine (dicyclomine 10 mg Cap) levothyroxine (levothyroxine 50 mcg (0.05 mg) Tab) multivitamin with minerals (Bruce/Mag 2001 Plus Vitamins C and D) sertraline (Zoloft 50 mg Tab) Procedures Performed Colonoscopy (05/16/2021), BREAST BIOPSY (11/25/2018), Tubal ligation (1984), Biopsy of breast, Hysterectomy, Laparoscopic cholecystectomy. Discharge Vitals Temperature (Temporal Artery) 36.6 ?C Heart Rate (Peripheral) 83 Respiratory Rate 16 Blood Pressure 131/87 Height 152 cm Height 60 in Weight 56.6 kg Weight 124.52 lb BMI 24.5 What to do next You Need to Schedule the Following Appointments Follow Up with Rosa Shearer CNP When: In 3 weeks Where: You Need to Complete the Following CBC w/ Auto Diff, Blood, Routine collect, 03/09/23, Order for future visit, Lab Collect, Pancreatic insufficiency Normal Abdominal cramping, Not Required, Print Label By Order Location\.br\ Medications\.br\ What How Much When Why Instructions\.br\ Unchanged acetaminophen-chl orzoxazone (Extra Strength Tylenol Aches and Strains) 1 tablet By Mouth Every 6 hours as needed for Pain Contact prescribing physician if questions or concerns \.br\ Unchanged ascorbic acid (Vitamin C) Every day Contact prescribing physician if questions or concerns \.br\ Unchanged chlordiazepoxide- clidinium (Librax 5 mg-2.5 mg Cap) 2 Capsules By Mouth Before meals Lower abdominal pain Contact prescribing physician if questions or concerns \.br\ Unchanged cholecalciferol (Vitamin D3) Contact prescribing physician if questions or concerns \.br\ Unchanged cholestyramine (Questran 4 g/ 9 g oral powder) 1/4 packet By Mouth Every day Bile salt-induced diarrhea Duration: 90 Days Contact prescribing physician if questions or concerns \.br\ Unchanged dicyclomine (Bentyl 10 mg Cap) 1 Capsules By Mouth 4 times a day Irritable bowel syndrome with diarrhea Duration: 30 Days Contact prescribing physician if questions or concerns \.br\ Unchanged dicyclomine (dicyclomine 10 mg Cap) By Mouth 4 times a day Contact prescribing physician if questions or concerns \.br\ Unchanged levothyroxine (levothyroxine 50 mcg (0.05 mg) Tab) TAKE 1 TABLET BY MOUTH ONCE EVERY MORNING ON AN EMPTY STOMACH Contact prescribing physician if questions or concerns \.br\ Unchanged multivitamin with minerals (Bruce/ Mag 2001 Plus Vitamins C and D) Contact prescribing physician if questions or concerns \.br\ Unchanged sertraline (Zoloft 50 mg Tab) 1 Tablets By Mouth At bedtime Contact prescribing physician if questions or concerns \.br\ Allergies\.br\ Wellbutrin (Respiratory distress)\.br\ Zyban (Respiratory distress)\.br\ barium sulfate (Nausea and vomiting)\.br\ Problems\.br\ Ongoing - Any problem that you are currently receiving treatment for.\.br\ Abdominal cramping\.br\ Abnormal CT of the abdomen\.br\ Arthritis\.br\ Asymptomatic microscopic hematuria\.br\ Bile salt-induced diarrhea\.br\ Breast CA\.br\ Chronic diarrhea\.br\ Colon polyp\.br\ Diverticulosis\.b r\ Family history of colon cancer\.br\ Fatty liver\.br\ History of colon polyps\.br\ Internal hemorrhoids\.br\ Irritable bowel syndrome with diarrhea\.br\ Lower abdominal pain\.br\ Pancreatic insufficiency\.br \ Small intestinal bacterial overgrowth (SIBO)\.br\ Smoker\.br\ Education Materials\.br\ Abdominal Pain, Adult\.br\ Pain in the abdomen (abdominal pain) can be caused by many things. Often, abdominal pain is not serious and it gets better with no treatment or by being treated at home. However, sometimes abdominal pain is serious.\.br\ Your health care provider will ask questions about your medical history and do a physical exam to try to determine the cause of your abdominal pain.\.br\ Follow these instructions at home:\.br\ \.br\ Medicines\.br\ ? \.br\ Take nsrb-vyt-laaitok and prescription medicines only as told by your health care provider.\.br\ ? \.br\ Do not take a laxative unless told by your health care provider.\.br\ General instructions\.br\ ? \.br\ Watch your condition for any changes.\.br\ ? \.br\ Drink enough fluid to keep your urine pale yellow.\.br\ ? \.br\ Keep all follow-up visits as told by your health care provider. This is important.\.br\ Contact a health care provider if:\.br\ ? \.br\ Your abdominal pain changes or gets worse.\.br\ ? \.br\ You are not hungry or you lose weight without trying.\.br\ ? \.br\ You are constipated or have diarrhea for more than 2?3 days.\.br\ ? \.br\ You have pain when you urinate or have a bowel movement.\.br\ ? \.br\ Your abdominal pain wakes you up at night.\.br\ ? \.br\ Your pain gets worse with meals, after eating, or with certain foods.\.br\ ? \.br\ You are vomiting and cannot keep anything down.\.br\ ? \.br\ You have a fever.\.br\ ? \.br\ You have blood in your urine.\.br\ Get help right away if:\.br\ ? \.br\ Your pain does not go away as soon as your health care provider told you to expect.\.br\ ? \.br\ You cannot stop vomiting.\.br\ ? \.br\ Your pain is only in areas of the abdomen, such as the right side or the left lower portion of the abdomen. Pain on the right side could be caused by appendicitis.\.br \ ? \.br\ You have bloody or black stools, or stools that look like tar.\.br\ ? \.br\ You have severe pain, cramping, or bloating in your abdomen.\.br\ ? \.br\ You have signs of dehydration, such as:\.br\ ? \.br\ Dark urine, very little urine, or no urine.\.br\ ? \.br\ Cracked lips.\.br\ ? \.br\ Dry mouth.\.br\ ? \.br\ Sunken eyes.\.br\ ? \.br\ Sleepiness.\.br\ ? \.br\ Weakness.\.br\ ? \.br\ You have trouble breathing or chest pain.\.br\ Summary\.br\ ? \.br\ Often, abdominal pain is not serious and it gets better with no treatment or by being treated at home. However, sometimes abdominal pain is serious.\.br\ ? \.br\ Watch your condition for any changes.\.br\ ? \.br\ Take auvt-gpy-rgkuryx and prescription medicines only as told by your health care provider.\.br\ ? \.br\ Contact a health care provider if your abdominal pain changes or gets worse.\.br\ ? \.br\ Get help right away if you have severe pain, cramping, or bloating in your abdomen.\.br\ This information is not intended to replace advice given to you by your health care provider. Make sure you discuss any questions you have with your health care provider.\.br\ Document Released: 05/22/2006 Document Revised: 12/21/2019 Document Reviewed: 12/21/2019 Elsevier Patient Education ? 2020 [employer]vier Inc.\.br\ \.br\ [facility] Auto Diffon 11-01-2022 Basophils/100 WBC (Bld) 0.8 % Normal 0.0-2.0 [facility] Comment on above: Order Comment: Order Added by Discern Expert. Performed By: #### 2 274689, 37715006, 49387934, 8830284, 5664153, 10901463, 6068849 ####[facility] [address] [place] [address] Basophils/Leukocytes Auto (Bld) [Pure # fraction] 0.0 E9/L Normal 0.0-0.2 [facility] Comment on above: Order Comment: Order Added by Discern Expert. Performed By: #### 2 667718, 16400368, 10758463, 9166575, 8876437, 10032751, 6983327 ####[address] [place] [address] Eosinophils/100 WBC (Bld) 3.2 % Normal 0.0-8.0 [facility] Comment on above: Order Comment: Order Added by Discern Expert. Performed By: #### 2 641551, 54597968, 62244635, 7438670, 2785364, 16512773, 8165116 ####[address] [address] Eosinophils/Leukocyt es Auto (Bld) [Pure # fraction] 0.2 E9/L Normal 0.0-0.5 [facility] Comment on above: Order Comment: Order Added by Discern Expert. Performed By: #### 2 651955, 30244395, 49844365, 8916700, 5509788, 89849138, 1461917 ####[address] [place] [address] Lymphocytes/100 WBC (Bld) 23.1 % Normal 14.0-50.0 [facility] Comment on above: Order Comment: Order Added by Discern Expert. Performed By: #### 2 071478, 21385210, 86111140, 1138940, 0087737, 41130261, 9077931 ####[address] [place] [address] Lymphocytes/Leukocyt es Auto (Bld) [Pure # fraction] 1.3 E9/L Normal 1.0-4.0 [facility] Comment on above: Order Comment: Order Added by Discern Expert. Performed By: #### 2 564047, 15121428, 81701236, 7273549, 2839188, 30027309, 9596183 ####[address] [place] [address] Monocytes/100 WBC (Bld) 9.3 % Normal 4.0-14.0 [facility] Comment on above: Order Comment: Order Added by Munir Expert. Performed By: #### 2 564186, 05172921, 77210292, 9487796, 4091851, 25055483, 7900422 ####[address] [place] [address] Monocytes/Leukocytes Auto (Bld) [Pure # fraction] 0.5 E9/L Normal 0.2-1.0 [facility] Comment on above: Order Comment: Order Added by Discern Expert. Performed By: #### 2 232273, 16081991, 86298251, 7516989, 0902569, 39497788, 7303642 ####[address] [place] [address] Neutrophils/100 WBC (Bld) 63.6 % Normal 36.0-75.0 [facility] Comment on above: Order Comment: Order Added by Discern Expert. Performed By: #### 2 055957, 23888516, 51662585, 9839212, 6286115, 55365378, 0373763 ####[address] [place] [address] Neutrophils/Leukocyt es Auto (Bld) [Pure # fraction] 3.6 E9/L Normal 2.0-7.5 [facility] Comment on above: Order Comment: Order Added by Munir Expert. Performed By: #### 2 989064, 68056398, 82969073, 3628199, 9786362, 72777940, 8717351 ####[facility] [address] [place] [address] CBC w/ Auto Diffon 3 Erythrocyte distribution width (RBC) [Ratio] 14.5 % High 10.9-14.2 [facility] Comment on above: Performed By: #### 2 023956, 13350966, 95000463, 0156896, 0586681, 33303429, 4391042 ####[facility] [address] [place] [address] Hematocrit (Bld) [Volume fraction] 41.6 % Normal 34.0-46.0 [facility] Comment on above: Performed By: #### 2 915873, 44292737, 06828072, 2342007, 3007246, 49218274, 3267060 ####[facility] [address] [place] [address] Hemoglobin (Bld) [Mass/Vol] 13.5 g/dL Normal 12.0-16.0 [facility] Comment on above: Performed By: #### 2 456801, 32375182, 53396199, 1118378, 3898213, 31590894, 6813105 ####[facility] [address] [place] [address] MCH (RBC) [Entitic mass] 28.5 pg Normal 27.0-34.0 [facility] Comment on above: Performed By: #### 2 303439, 69913042, 47751040, 5325397, 2401288, 73598949, 3476538 ####[facility] [address] [place] [address] MCHC (RBC) [Mass/Vol] 32.5 g/dL Normal 31.4-36.0 [facility] Comment on above: Performed By: #### 2 902459, 36897733, 20478603, 9192805, 9691489, 93404852, 6607950 ####[address] [place] [address] MCV (RBC) [Entitic vol] 87.8 fL Normal 80.0-100.0 [facility] Comment on above: Performed By: #### 2 436373, 24507471, 62190658, 5988566, 5908319, 43746835, 2122603 ####[facility] [address] [place] [address] Platelet mean volume (Bld) [Entitic vol] 7.6 fL Normal 6.4-10.8 [facility] Comment on above: Performed By: #### 2 164750, 44811641, 84142026, 9957483, 1060068, 88879044, 0433772 ####[facility] [address] [place] [address] Platelets (Bld) [#/Vol] 218.0 E9/L Normal 150.0-500.0 [facility] Comment on above: Performed By: #### 2 008250, 14480289, 30350305, 3481334, 6154933, 53670440, 6861385 ####[facility] [address] [place] [address] RBC (Bld) [#/Vol] 4.7 E12/L Normal 4.3-5.9 [facility] Comment on above: Performed By: #### 2 213864, 33155256, 25084093, 0549069, 1707837, 90938785, 8042430 ####[facility] [address] [place] [address] WBC corrected for nucl RBC Auto (Bld) [#/Vol] 5.7 E9/L Normal 4.0-11.0 [facility] Comment on above: Performed By: #### 2 619272, 23995757, 88822359, 5273194, 9251954, 17747132, 7278270 ####[facility] [address] [place] [address] CHEMISTRYOrdered By: SYSTEM SYSTEM on 11-01-2022 Albumin [Mass/Vol] 3.9 g/dL Normal 3.3 - 5.0 gm/dL [facility] Remisol Albumin/Globulin [Mass ratio] 1.1 {ratio} Normal 1.1 - 2.2 [facility] Remisol ALP [Catalytic activity/Vol] 49 [iU]/d Normal 21 - 98 Int._Unit/L [facility] ALT No additional P-5'-P [Catalytic activity/Vol] 12 [iU]/d Normal 6 - 46 Int._Unit/L [facility] Anion gap [Moles/Vol] 10 mmol/L Normal 6 - 16 mEq/L [facility] AST [Catalytic activity/Vol] 15 [iU]/d Normal 5 - 43 Int._Unit/L [facility] Bilirubin [Mass/Vol] 0.4 mg/dL Normal 0.0 - 1.1 mg/dL [facility] Calcium [Mass/Vol] 9.5 mg/dL Normal 8.9 - 11.1 mg/dL [facility] Chloride [Moles/Vol] 102 mmol/L Normal 101 - 111 mmol/ L [facility] CO2 [Moles/Vol] 29 mmol/L Normal 21 - 31 mmol/L [facility] Cobalamin (Vitamin B12) [Mass/Vol] pg/mL Normal 50 - 1500 pg/mL [facility] Creatinine [Mass/Vol] 0.7 mg/dL Normal 0.5 - 1.3 mg/dL [facility] Remisol GFR/1.73 sq M.predicted among blacks MDRD (S/P/Bld) [Vol rate/Area] mL/min/1.73 m2 Normal >=59mL/min/1.73 m2 [facility] Chem S GFR/1.73 sq M.predicted among non-blacks MDRD (S/P/Bld) [Vol rate/Area] mL/min/1.73 m2 Normal >=59mL/min/1.73 m2 [facility] Chem S Globulin (S) [Mass/Vol] 3.6 g/dL Normal 1.4 - 4.0 gm/dL [facility] Remisol Glucose [Mass/Vol] 106 mg/dL Normal 55 - 199 mg/dL [facility] Potassium [Moles/Vol] 4.1 mmol/L Normal 3.5 - 5.3 mmol/L [facility] Remisol Protein [Mass/Vol] 7.5 g/dL Normal 6.0 - 7.8 gm/dL F [facility] Remisol Sodium [Moles/Vol] 137 mmol/L Normal 135 - 145 mmol/L [facility] Remisol Urea nitrogen [Mass/Vol] 13 mg/dL Normal 5 - 21 mg/dL [facility] Remisol Urea nitrogen/Creatinine [Mass ratio] 19 mg/mg Normal 10 - 20 [facility] Remisol CMPon 11-01-2022 Albumin [Mass/Vol] 3.9 g/dL Normal 3.3-5.0 [facility] Comment on above: Performed By: #### 2 766626, 41977694, 90965689, 7073594, 0664092, 74140446, 8573596 ####[facility] [address] [place] [address] Albumin/Globulin (S) [Mass conc ratio] 1.1 Normal 1.1-2.2 [facility] Comment on above: Performed By: #### 2 263506, 92956465, 38717358, 2522345, 6692200, 22463160, 4115840 ####[facility] [address] [place] [address] ALP [Catalytic activity/Vol] 49 Int._Unit/L Normal 21-98 [facility] Comment on above: Performed By: #### 2 428224, 72339878, 00720136, 1878253, 7559850, 29391841, 4072209 ####[facility] [address] [place] [address] ALT No additional P-5'-P [Catalytic activity/Vol] 12 Int._Unit/L Normal 6-46 [facility] Comment on above: Performed By: #### 2 738020, 18251539, 45609747, 6295909, 8042702, 67072213, 5684805 ####[facility] [address] [place] [address] Anion gap [Moles/Vol] 10 mmol/L Normal 6-16 [facility] Comment on above: Performed By: #### 2 130548, 77629374, 43455875, 3222236, 3135217, 02426013, 3235033 ####[facility] [address] [place] [address] AST [Catalytic activity/Vol] 15 Int._Unit/L Normal 5-43 [facility] Comment on above: Performed By: #### 2 405686, 09724096, 81490314, 2066494, 6522138, 94784637, 5012144 ####[facility] [address] [place] [address] Bilirubin [Mass/Vol] 0.4 mg/dL Normal 0.0-1.1 [facility] Comment on above: Performed By: #### 2 785159, 83170248, 51065886, 7173465, 3141502, 95442984, 5297319 ####[facility] [address] [place] [address] Calcium [Mass/Vol] 9.5 mg/dL Normal 8.9-11.1 [facility] Comment on above: Performed By: #### 2 787699, 23913515, 24697178, 0576717, 6394664, 72435510, 1406368 ####[facility] [address] [place] [address] Chloride [Moles/Vol] 102 mmol/L Normal 101-111 [facility] Comment on above: Performed By: #### 2 881090, 18373409, 47466679, 2584572, 2504304, 10546920, 2511667 ####[facility] [address] [place] [address] CO2 [Moles/Vol] 29 mmol/L Normal 21-31 [facility] Comment on above: Performed By: #### 2 206999, 64521275, 78523338, 8459720, 4968986, 47471854, 2927750 ####[facility] [address] [place] [address] Creatinine [Mass/Vol] 0.7 mg/dL Normal 0.5-1.3 [facility] Comment on above: Performed By: #### 2 503642, 12358305, 94775900, 3974484, 7507276, 68927801, 9731396 ####[facility] [address] [place] [address] Globulin (S) [Mass/Vol] 3.6 g/dL Normal 1.4-4.0 [facility] Comment on above: Performed By: #### 2 696902, 26555807, 07630807, 1439094, 0383172, 43322427, 7393807 ####[facility] [address] [place] [address] Glucose [Mass/Vol] 106 mg/dL Normal 55-199 [facility] Comment on above: Result Comment: If t his glucose result represents a fasting glucose, interpretation should refer to the following reference range: 55-99 mg/dL Performed By: #### 2 447033, 50843697, 78763317, 6092730, 5296129, 30377823, 1397559 ####[facility] [address] [place] [address] Potassium [Moles/Vol] 4.1 mmol/L Normal 3.5-5.3 [facility] Comment on above: Performed By: #### 2 761132, 75546917, 81492410, 3381259, 7625111, 57028110, 6012714 ####[facility] [address] [place] [address] Protein [Mass/Vol] 7.5 g/dL Normal 6.0-7.8 [facility] Comment on above: Performed By: #### 2 267278, 44412512, 90262235, 2264605, 4320886, 82489249, 5900452 ####[facility] [address] [place] [address] Sodium [Moles/Vol] 137 mmol/L Normal 135-145 [facility] Comment on above: Performed By: #### 2 807477, 38945766, 81735465, 5318258, 1145080, 52346264, 6455077 ####[facility] [address] [place] [address] Urea nitrogen [Mass/Vol] 13 mg/dL Normal 5-21 [facility] Comment on above: Performed By: #### 2 022341, 99307182, 02687808, 2258193, 7889585, 44412855, 0853817 ####[facility] [address] [place] [address] Urea nitrogen/Creatinine [Mass ratio] 19 No Units Normal 10-20 [facility] Comment on above: Performed By: #### 2 252226, 07663822, 74511659, 3841431, 6337697, 27431279, 7064722 ####[facility] [address] [place] [address] Consent for Treatmenton - Consent for Treatment [id number] 68#[id number]:127 Normal [facility] Gastroenterology Office/Clin ic Noteon 11-01-2022 Gastroenterology Office/Clinic Note Chief Complaint lower abdominal cramping/pain, RUQ cramping/pain, diarrhea HPI Staff Patient is a 67 year old female who presents today for a follow up to US & labs. Lower abdominal cramping, RUQ pain/cramping, nausea, diarrhea. History of Present Illness Patient is a 67-year-old female who presents for follow-up. Patient was previously evaluated by Dr. Hameed 10/10/2022 for RUQ and epigastric pain. Note indicated patient with IBS with diarrhea and fatty liver. Note also indicated patient was to follow-up with [facility] regarding her pain. Stool testing that was completed previously was negative for infectious process. Patient had previous fecal pancreatic elastase stool testing that was low and I had ordered Creon and labs to evaluate for vitamin deficiencies- not done. Note indicated patient was unable to take Creon and his insurance would not cover. Was taking Questran and that helped diarrhea however did not help cramping. Patient was ordered ultrasound of pelvis and advised to continue Bentyl and Imodium. Previous labs 05/2022 revealed unremarkable CBC, normal CMP. Patient's fecal pancreatic elastase was low at 88. Patient had ultrasound of pelvis 10/16/2022 that revealed no acute pathology. Patient had previous colonoscopy 10/2015 that revealed suboptimal prep, diverticulosis, transverse colon polyp that pathology revealed was inflammatory reactive polyp and was to repeat colonoscopy in 1 year. Repeat colonoscopy 04/2021 revealed normal terminal ileum, diverticulosis, hemorrhoids, hyperplastic polyp removed from descending colon and was recommended to have repeat colonoscopy in 2025. Patient had previous CT 06/2021 that showed enlarged right retrocrural lymph node and no evidence of diverticulitis. Patient had repeat CT 01/2022 at [facility] that showed hepatomegaly and hepatic steatosis. Patient with family history of colon cancer?patient's sister. During today's visit, patient reports she has been having lower abdominal cramping that radiates to upper abdomen over the last 8 months, occurring daily. Explains abdominal cramping occurs without regard to bowel movements. Abdominal cramping is relieved some with heating pad. Patient explains she has Creon however, is questioning whether or not to take it as she was evaluating the side effects and is concerned regarding. Is taking Questran 1/2 packet once in a while that improved her diarrhea. She reports she gets constipated at times with Questran. Is taking Questran 1 time a month. Is having 3 BMs a day that are watery diarrhea. She has been having watery diarrhea for the last 8 months. Denies black/bloody stools, fevers/chills, nausea/vomiting, and denies having any other GI complaints. Review of Systems PHQ Score Initial Depression Screen Score: 2 ROS - Provider Constitutional: no fever, no chills. Skin: no Jaundice. ENMT: Denies dysphagia and heartburn. Respiratory: no shortness of breath. Cardiovascular: no chest pain. Gastrointestinal: no nausea, no vomiting, yes diarrhea, no GI bleeding. Physical Exam Vitals & Measurements T: 36.6 ?C(Temporal Artery) HR: 83(Peripheral) RR: 16 BP: 131/87 SpO2: 98% HT: 60 in HT: 152 cm WT: 56.6 kg WT: 124.52 lb BMI: 24.5 General: Well developed, well nourished, in no acute distress Head: Normocephalic/atrau matic Lungs: Normal respiratory effort and clear to auscultation Cardio: Regular rate and rhythm, normal S1 and S2, no murmur, no rub Abdomen: Soft, non-distended, non-tender. Normoactive bowel sounds present in all 4 abdominal quadrants, bilaterally. Mental Status: Alert and oriented x3. Normal mood and affect Assessment/Plan 1. Pancreatic insufficiency (K86.89: Other specified diseases of pancreas) Patient's fecal pancreatic elastase was low at 88. Previous colonoscopy 10/2015 that revealed suboptimal prep, diverticulosis, transverse colon polyp that pathology revealed was inflammatory reactive polyp and was to repeat colonoscopy in 1 year. Repeat colonoscopy 04/2021 revealed normal terminal ileum, diverticulosis, hemorrhoids, hyperplastic polyp removed from descending colon and was recommended to have repeat colonoscopy in 2025. CT 01/2022 at [facility] that showed hepatomegaly and hepatic steatosis. Educated patient regarding importance of completing previously ordered labs to evaluate for vitamin deficiencies. Educated regarding importance of taking Creon TID with meals. 2. Abdominal cramping (R10.9: Unspecified abdominal pain) Lower abdominal cramping that radiates to upper abdomen over the last 8 months, occurring daily. Explains abdominal cramping occurs without regard to bowel movements. Patient's fecal pancreatic elastase was low at 88. Previous colonoscopy 10/2015 that revealed suboptimal prep, diverticulosis, transverse colon polyp that pathology revealed was inflammatory reactive polyp and was to repeat colonoscopy in 1 year. Repeat colonoscopy 04/2021 revealed normal terminal ileum, diverticulosis, hemorrhoids, h (more content not included)... Normal [facility] Comment on above: Result Comment: Elec tronically Signed By: Olu HERNANDEZ, Rosa Graham\.nikhil\Date and Time Signed: 11/01/22 08:36 EST HEMATOLOGYOrdered By: SYSTEM SYSTEM on 11-01-2022 Basophils/100 WBC (Bld) 0.8 % Normal 0.0 - 2.0 % [facility] Basophils/Leukocytes Auto (Bld) [Pure # fraction] 0.0 E9/L Normal 0.0 - 0.2 E9/L [facility] Eosinophils/100 WBC (Bld) 3.2 % Normal 0.0 - 8.0 % [facility] Eosinophils/Leukocyt es Auto (Bld) [Pure # fraction] 0.2 E9/L Normal 0.0 - 0.5 E9/L [facility] Lymphocytes/100 WBC (Bld) 23.1 % Normal 14.0 - 50.0 % [facility] Lymphocytes/Leukocyt es Auto (Bld) [Pure # fraction] 1.3 E9/L Normal 1.0 - 4.0 E9/L [facility] Monocytes/100 WBC (Bld) 9.3 % Normal 4.0 - 14.0 % [facility] Monocytes/Leukocytes Auto (Bld) [Pure # fraction] 0.5 E9/L Normal 0.2 - 1.0 E9/L [facility] Neutrophils/100 WBC (Bld) 63.6 % Normal 36.0 - 75.0 % [facility] Neutrophils/Leukocyt es Auto (Bld) [Pure # fraction] 3.6 E9/L Normal 2.0 - 7.5 E9/L [facility] HEMATOLOGYOrdered By: Jane Mederos on 11-01-2022 Erythrocyte distribution width (RBC) [Ratio] 14.5 % High 10.9 - 14.2 % [facility] Hematocrit (Bld) [Volume fraction] 41.6 % Normal 34.0 - 46.0 % [facility] Hemoglobin (Bld) [Mass/Vol] 13.5 g/dL Normal 12.0 - 16.0 gm/dL [facility] MCH (RBC) [Entitic mass] 28.5 pg Normal 27.0 - 34.0 pg [facility] MCHC (RBC) [Mass/Vol] 32.5 g/dL Normal 31.4 - 36.0 gm/dL [facility] MCV (RBC) [Entitic vol] 87.8 fL Normal 80.0 - 100.0 fL [facility] Platelet mean volume (Bld) [Entitic vol] 7.6 fL Normal 6.4 - 10.8 fL [facility] Platelets (Bld) [#/Vol] 218.0 E9/L Normal 150.0 - 500.0 E9/L [facility] RBC (Bld) [#/Vol] 4.7 E12/L Normal 4.3 - 5.9 E12/L [facility] WBC corrected for nucl RBC Auto (Bld) [#/Vol] 5.7 E9/L Normal 4.0 - 11.0 E9/L [facility] Patient Educationon 11-02-19 Patient Education Gastroenterology Abdominal Pain, Adult Pain in the abdomen (abdominal pain) can be caused by many things. Often, abdominal pain is not serious and it gets better with no treatment or by being treated at home. However, sometimes abdominal pain is serious. Your health care provider will ask questions about your medical history and do a physical exam to try to determine the cause of your abdominal pain. Follow these instructions at home: Medicines ? Take jfjz-eeu-vdcraxn and prescription medicines only as told by your health care provider. ? Do not take a laxative unless told by your health care provider. General instructions ? Watch your condition for any changes. ? Drink enough fluid to keep your urine pale yellow. ? Keep all follow-up visits as told by your health care provider. This is important. Contact a health care provider if: ? Your abdominal pain changes or gets worse. ? You are not hungry or you lose weight without trying. ? You are constipated or have diarrhea for more than 2?3 days. ? You have pain when you urinate or have a bowel movement. ? Your abdominal pain wakes you up at night. ? Your pain gets worse with meals, after eating, or with certain foods. ? You are vomiting and cannot keep anything down. ? You have a fever. ? You have blood in your urine. Get help right away if: ? Your pain does not go away as soon as your health care provider told you to expect. ? You cannot stop vomiting. ? Your pain is only in areas of the abdomen, such as the right side or the left lower portion of the abdomen. Pain on the right side could be caused by appendicitis. ? You have bloody or black stools, or stools that look like tar. ? You have severe pain, cramping, or bloating in your abdomen. ? You have signs of dehydration, such as: ? Dark urine, very little urine, or no urine. ? Cracked lips. ? Dry mouth. ? Sunken eyes. ? Sleepiness. ? Weakness. ? You have trouble breathing or chest pain. Summary ? Often, abdominal pain is not serious and it gets better with no treatment or by being treated at home. However, sometimes abdominal pain is serious. ? Watch your condition for any changes. ? Take cfvp-bwg-cxwepcd and prescription medicines only as told by your health care provider. ? Contact a health care provider if your abdominal pain changes or gets worse. ? Get help right away if you have severe pain, cramping, or bloating in your abdomen. This information is not intended to replace advice given to you by your health care provider. Make sure you discuss any questions you have with your health care provider. Document Released: 05/22/2006 Document Revised: 12/21/2019 Document Reviewed: 12/21/2019 [facility] Patient Education ? 2019 [employer] Normal [facility] Vit B12on 11-01-2022 Cobalamin (Vitamin B12) [Mass/Vol] pg/mL Normal 50-1500 [facility] Comment on above: Performed By: #### 2 [id number] ####[facility] [address] [place] [address] eGFRon 11-01-2022 GFR/1.73 sq M.predicted among blacks MDRD (S/P/Bld) [Vol rate/Area] mL/min/{1.73_m2} Normal >=59 [facility] Comment on above: Order Comment: Order added by Discern Expert. Result Comment: eGFR is race adjusted. AA=. Performed By: #### 2 [id number] ####[facility] [address] [place] [address] GFR/1.73 sq M.predicted among non-blacks MDRD (S/P/Bld) [Vol rate/Area] mL/min/{1.73_m2} Normal >=59 [facility] Comment on above: Order Comment: Order added by Discern Expert. Result Comment: Patent Engineer judy kidney disease could be indicated at eGFR's of less than 60 mL/min/1.73m2. Kidney failure is indicated at less than 15 mL/min/1.73m2. Performed By: #### 2 [id number], [id number], [id number], [id number], [id number] ####[facility] [address] [place] [address] Coding Summary.on 10-18-2022 Coding Summary. CD:[id number] JFw3qRv+PGhlYWQ+PE1 FXPKbL30peXFzsR0VK3 aRUQ8QQKKQHNBOTP7FU C6xzUA1ULsuU0TnftNh VeunaPNbFP31RYm5WFJ 5iMbjQQfvnA8vmRQgW9 g6XuErDD85sR84HDhsG SBcMgP5JjJrjgitvONz T0vdUvJyjWAmXtw+PHR hYmxlIHdpZHRoPScxMD ErDdOaeNjgDB2cJd6tC GVyLWNvbGxhcHNlOiBj c3xlRBAiOWtsBV9kbZu nH2FudJV9XLMkf3u9Hx 48dHI+RQJrAYT0jLvsU Uhap515WyQhj2hgEOD1 kFTuMVglWKF2O14pa5L 3HYWqIFCxNPV0hZZ8yH 8teQalbeycX8VbgRHhP mC3QQY1uOQyhA6tqNzm aksqyD9cRkk+X42FLB2 JWPDOPH9CUnw6I1RgGa wvdHI+QO31YLTnFD45z BZesTBgy4gqzKq3AqTx PYTyNBH2rVpmYPmmf3K vDXEeR14igUVzj8H7UB WpkSsdkJNvCpCmnRM7x S1eXXuhdbwhi4afqmhd Jkemp6cxgf84lW28D50 jOJrqZAGnXOS3OFVcBK SlfYlpjy8spY0xWn4+I Kouc8kte8ozvCj4RnZy OJXpvaKqyLjdCGX5w4I pMe76H2PdeLetq8QxGq h0wx05pSRtw6G2oYX6Y WxgIISbcP7bADieErR6 GMUlLvBpyA10oVTgWQu dCi7prOqcjTbjPS2iAQ BhpyueZKCitJ3rHZHba DUaaCmjJZ2aYQDpacms p032NxIgLQN9DEYazDJ fB2RelZ6pRwToCGGxMK GjQ3LpdEMpOLcoJ053D PijFyO6QHJbuuMhR1Tu JHDpxLwaJxL9p4P7Lu4 Gm1DkokudPUR8UHpdVP JjDtVyAqJzGwW8T6YxS jb4BKFvwUldHW8vH7Am VSHogboktkxzaOL6KIQ gPBVubU40kEOpSOfrSn 3fj8D7l315NGGqMDYik W54Gu6wfZtkNQSchVYL xH9lbusnt2kshskrImY iFBHwIPo7GXd2CKOqtF znCbXxXKK4DbC4JTR6w DTkpI8rxSjgmxbzcI5v Oyc+O90zfE7nCCB8POV 4lvqqRDFxtoLyTF56BW 89W1AaDkaooILqmTE+P QXlrnVbmJqxLO4nDuNm u9tbl2CjPSfaL3ToWSX hQNtdSyu2MOJiZMZ2mC N3cS8iJNTyYTqjj5M5i ZK3D2PuahBxik0wt5yk STErWUukB29qpZCkv4Y 8MIBjsWK3FRFegLjwXy AdjD24Xft+PGNvbGdyb 9OrBitrk7zwq2gjgNp1 IjMwJSIgdmFsaWduPSJ 5q2GyTj49S74fJIcrIR RoPSIxNSUiIHZhbGlnb i2wnK7rMg7+PGNvbCB3 sYW9dJ8eVZUlTvM0TTd gL971RzTjxWRiPqiyj6 pkm7fqnZy1KbJhZFOam cYxgBugAYS9l2CaIf91 H96iHXbdQZTaFSHkSDK uEJRzbLipnm7mcG3rIk 8+CS4fi0vhes72jU83c HI+XRArIJV7qItvBEnn JZUegE4hAMgqMjT1BAM tNeJvtR75tLMjVBhtYv 8tlRljhJxgRU1sIUGvr nohp345IcIrv1zdYFVj qGBwFDlgBHC3Y31ih2I 6UUZzEZTjZVM1iIE2zF 1hbGlnbjogbGVmdDsgd rRbrQtpSEimXHcaN720 IHRvcDsnPlBhdGllbnQ oRbBvSUf1N5QzMct8DO RmvAgkEM8blTGcTPpyV n8syIbzpKmzCB7bITFu ipuky590AdPlk3vdCZD xqUTlTUznTPV8V65zm6 K0ECQuJAGtXBP4zHJ9a L2hdUghckqnlYMpaYno azQbeOpmTRezNTukY83 6IHRvcDsnPkJpcnRoIE HvvJJ5UL63RP66bMWqh 2K2hMT7X0PzEUGqqfth oxaisXB3RKWbSFRaqN9 2Sf3suDagWa3sFNTcKR Z8KZRrjKIjL8JtiQ5fG vNhNTDoKDSvI9BnhGYm BOvbB604FHlwHsB5UAI wxvGfP5RoLYMnmApwUu T5j6C4Uz5QL5Q5AD35Y R19wCXih7A7mHE4W9Oi OYJeypgsqbpkjGD9EQS eQCKzoE53Cg5zpIngAc 7uEFRqWPP9DWMmkHHqF 6CdtJ7hNbBzEWBiSGZx D9KbnCQgQGlxU661AJg lJqN2JEEwkfQqY5OhBT NqrQkdMfD4n6L0In3KG Dx3WE09CI00hNZml6R3 qGE5R6EpCABjnqbgvaj gkOH0HYAqNEFkhO12Be 9ohJyyWt0eLUQmHGG3X YTjeBJnO9AtvY9jDzUa KRTsZUKbW2VqfNFfVVi rX903DEvvVaO3ULLyyo GuD7ExXOUttIifCuF2g 0F9Bc8SLBLuCT53FSH2 yVF8MA37OV63X5WpVpf vdGFibGU+PHRhYmxlIH dpZHRoPScxMDAlJyBzd IsgZC6kAm1oHITeFWSb rAmltUCbTbTya8cgVWO rELucIO3aoIptR8ZbgQ V2XPIgd1a5Ns70N96oX 3JvdXA+QUWyyHF1qOB7 pR5dRrFxBlU0FSqaV96 1NbCikPYiNwgic0pgv3 nmfKl9VcC3GXBkafUyh VbdXPW3w8QxEd58J75m IHdpZHRoPSIxNSUiIHZ wqPgrcp0rhN0tQg2+PG YtqTZ6kCA8hR4hWmYxH nG8QNbbE187IfJanJOi Nyfdh8rje1ahwQi9MpI iFFImkzPsnHuyMAM9p3 RgXk51W2IxdWfsg0SvC ty5mw17dGRmq8Y9iDI3 B8NiTMAyagsykIAlrUz hHC1tAJNifhhfCZRbmO 9dOOVmN4y5DhRlRgP3O GdbL7CkttP4SLOksSFn KEssPJH4B75je1T9XQT iQLIrEJD4gSF5yW0mlJ lnbjogbGVmdDsgdmVyd KyrSWqeENhhM346WGUl pHfdMMAibU6dXJSncNP atDtaUB3qQXDhercbFf XBB6kaNSYUDYSCKGsaJ TwvdGQ+FZRyHPS6zKlo UNgqRRLnsW8oFXShP1g 6YjLvVzT5MCbsK0RhRR GinchfGc76qD6gMyYpF uZ6WDtlG1CggcC9STOr zSLvPGjsYYH3P64qn1F 4JFLgKSSlAKE5uJA1gK 1hbGlnbjogbGVmdDsgd uHrwAdaNVliHBjqS380 MYTmoMgyInJ9IjB2JfT 1YPX4F7NtKfg2QPMnnW cgGW5pkZAnJLauLt1dy TcpvOkcZS8vCPHxiwji INJekT8dEXWwyDAzsSx xNY0lNHEfhodlk364Gw NcTMN9YCKkuCQqD6Vrl E8jHhEiEECwREXzX6Rf uWGqTKnkT694IUecVqD 3DDWrstVaC8TmSQIwjE ieZsG2h1T1Im89FSOOB WFyczwvdGQ+PHRkIHN0 xMzxZHteVKMdkU9wAWC yL8g2LaLgZkX7HXszT3 DfXDWqhilbUm90eE3mK kUdIyO1PNucX3ZcsjE3 VYKpvRTfAWyuXUE5R22 mq6G4LRFoHEIfCOG9qS A5gF7qlWiqphkqdLBeg DsgdmVydGljYWwtYWxp I219ZQNmjGtuZkFfmJB sZTwvdGQ+XQPlXWG6uF abRZskVWZlkG7gMXYcX 6i4JrYgIsY0TGsjO2Yc FXCocecjJq93xT4gXxO lNlL7WYekR7TrazR0AG PrzLYlLFzgTHZ6F34zs 5V1QAFsERXwOJT8qOS8 gX6ilEzwxwetmVDzqAw gdmVydGljYWwtYWxpZ2 97AUInvUreDe50wGAbx CjqklR7D2FnOwwddRC+ PV14LOZkXL29oXCrkZF si2vzoSn1OtChZAPnUP L6sNaeHCork7IoASPbP 31heXIsn4W1JMLxbBdv iFEpZhNfmSL7rT8bLUm rseans2oimowvLtvya9 ryhl85vU32D02wIOjhA HRoPSIzMCUiIHZhbGln hy3czB8wKq4+PGNvbCB 2bKK2iQ0pHjYsIbW5TJ wkZ110LgNibRTrStrtb 6ucf1bizKk9PwXfQJNe jjJcfUcgHLM6s5KpLc2 6D74tCPxyUFPbOIOtDN OzAGAloAyoua5leR1jK i8+JO1cv7prht57uT91 dHI+NBTyHCY9bYtiCSh tQQIziK2aHPbnTuB9IW EhLgCvgA60kKWdOFidG a7mhQmvlJjwUE3jPYWx hxfvg039NlUcx0qxQUX asBGzHHxsKGI9F38sb8 K5ZAQqKGWpWRM1uJV8p T4rwDfvnpzmaJUxkYbz vdCmfVdhRYssXXvgU45 5YXDfzWzgFoBkaVIeU7 nbpdSAJY6xKkgynLA+P NLlWAD8yYvgBUqxNJGa xB0kVGGcC2n8FoLnLgS 4HJrtJ5NibsU2ONBfsT ZyPTZryLPVlS2fqofwt 8tfjtmrKiKzCCRcBJx3 NEc0DQRbbPwaVnBmSGI 0YrI8AZC8jZAioO9xnF xcnschlC7aZru+RklOO jwvdGQ+DYRkPBF7yWzb ASkoIRXbuB6uCBDdW2h 3EzByHpH6ELdjF9Ltvi T1HDUnpZAzSKWubXFNs P6qczjkw1ltapnkZzMa FMVkEGl2PIq1AAVnaYc rMmThFJM6BzB0XOV9pX VbdT3uzNtjtopynN7tI yc+TVJOOjwvdGQ+PHRk ZMR1lOlyRAmvQIRlwG5 sWXXqB6i9JaDnRyT7PN bjU8UwebD0MUYoeKYuP BZdcSYHxC6grcqql2na tthcJdSqFKIdWHg7NWx 9MBUwwWdwSwDhWHZ5Fg B4USK7cIThfG2elXete sopoV2cDfa+TFI6WPX0 QM30NS53Q4EcVqvvcJU ibGU+PHRhYmxlIHdpZH RoPScxMDAlJyBzdHlsZ G1fWa5dKYYhFIZixAsu cHNl (more content not included)... Normal [facility] US Pelvis Non-OB Limitedon 0 10-17-2022 US Pelvis Non-OB Limited Exam Date/Time: 10/16/2022 14:01 EST Reason for Exam: R10.30;Pelvic pain Report IMPRESSION: HYSTERECTOMY WITH BILATERAL OOPHORECTOMY. NO ACUTE FINDINGS. CLINICAL HISTORY: Pelvic pain, R10.30. FINDINGS: Transabdominal images were obtained. The uterus is surgically absent. The right and left ovaries are surgically absent. No free fluid. No adnexal masses. Ordering Provider: Kimberley HAMEED FINAL REPORT Dictated: 10/17/2022 9:21 am Ernesto Rasmussen MD Signed (Electronic Signature): 10/17/2022 9:21 am Signed by: Ernesto Rasmussen MD Transcribed by: JENNA Technologist: MARYJANE Normal [facility] Consent for Treatmenton 09-27 Consent for Treatment [id number] B4#[id number]:127 Normal [facility] THYROID ANTIBODIESon 022 Thyroglobulin Antibody 381.8 IU/mL Critically high 0.0-0.9 [facility] Comment on above: Result Comment: Thyr oglobulin Antibody measured by H5 Methodology Performed By: #### T ELIJAH #### [facility] [address] [place] [address] Dr. Marcelo Blackwell Thyroid Peroxidase (TPO) Ab 353 IU/mL Critically high 0-34 [facility] Comment on above: Performed By: #### T ELIJAH #### [facility] [address] [place] [address] Dr. Marcelo Blackwell US THYROIDon 07-16-2022 US THYROID EXAMINATION: US THYROID HISTORY: Hypothyroidism COMPARISON: No relevant comparison available. TECHNIQUE: Sonographic images of the thyroid gland were obtained. FINDINGS: The right thyroid lobe is enlarged in size heterogeneous in echotexture with hypervascularity measuring 5.3 x 2.7 x 2.0 cm. No focal nodule. The thyroid isthmus is mildly thickened with no nodule measuring 3.4 mm The left thyroid lobe is enlarged in size heterogeneous in echotexture with hypervascularity measuring 4.6 x 3.5 x 2.2 cm. No focal nodule IMPRESSION: Enlarged heterogeneous hypervascular thyroid gland, consider thyroiditis Electronically authenticated by: ALEXADNRO DEL VALLE Date: 2022-07-16 07:17 Normal [facility] FREE T3on 07-14-2022 FREE T3 2.57 pg/mlL Normal 2.18-3.98 [facility] Comment on above: Performed By: #### T SH, FT3 #### [facility] [address] [place] [address] Dr. Marcelo Blackwell FREE T4on 07-14-2022 Free T4 [Mass/Vol] 1.26 ng/dL Normal 0.76-1.46 [facility] Comment on above: Performed By: #### F T4 #### [facility] [address] [place] [address] Dr. Marcelo Blackwell TSHon 07-14-2022 TSH 1.371 uIU/mL Normal 0.358-3.740 [facility] Comment on above: Performed By: #### T SH, FT3 #### [facility] [address] [place] [address] Dr. Marcelo Blackwell CHEMISTRYOrdered By: SYSTEM SYSTEM on 06-19-2022 Albumin [Mass/Vol] 3.8 g/dL Normal 3.3 - 5.0 gm/dL [facility] Albumin/Globulin [Mass ratio] 1.1 {ratio} Normal 1.1 - 2.2 [facility] ALP [Catalytic activity/Vol] 94 [iU]/d Normal 21 - 98 Int._Unit/L [facility] ALT No additional P-5'-P [Catalytic activity/Vol] 27 [iU]/d Normal 6 - 46 Int._Unit/L [facility] Anion gap [Moles/Vol] 12 mmol/L Normal 6 - 16 mEq/L [facility] AST [Catalytic activity/Vol] 37 [iU]/d Normal 5 - 43 Int._Unit/L [facility] Bilirubin [Mass/Vol] 0.5 mg/dL Normal 0.0 - 1.1 mg/dL [facility] Calcium [Mass/Vol] 9.5 mg/dL Normal 8.9 - 11.1 mg/dL [facility] Chloride [Moles/Vol] 102 mmol/L Normal 101 - 111 mmol/ L [facility] CO2 [Moles/Vol] 29 mmol/L Normal 21 - 31 mmol/L [facility] Creatinine [Mass/Vol] 0.8 mg/dL Normal 0.5 - 1.3 mg/dL [facility] GFR/1.73 sq M.predicted among blacks MDRD (S/P/Bld) [Vol rate/Area] mL/min/1.73 m2 Normal >=59mL/min/1.73 m2 [facility] Chem S GFR/1.73 sq M.predicted among non-blacks MDRD (S/P/Bld) [Vol rate/Area] mL/min/1.73 m2 Normal >=59mL/min/1.73 m2 [facility] Chem S Globulin (S) [Mass/Vol] 3.5 g/dL Normal 1.4 - 4.0 gm/dL [facility] Glucose [Mass/Vol] 114 mg/dL Normal 55 - 199 mg/dL [facility] Potassium [Moles/Vol] 3.9 mmol/L Normal 3.5 - 5.3 mmol/L [facility] Protein [Mass/Vol] 7.3 g/dL Normal 6.0 - 7.8 gm/dL [facility] Remisol Sodium [Moles/Vol] 139 mmol/L Normal 135 - 145 mmol/L [facility] Urea nitrogen [Mass/Vol] 15 mg/dL Normal 5 - 21 mg/dL [facility] Urea nitrogen/Creatinine [Mass ratio] 19 mg/mg Normal 10 - 20 [facility] HEMATOLOGYOrdered By: SYSTEM SYSTEM on 06-19-2022 Basophils/100 WBC (Bld) 0.8 % Normal 0.0 - 2.0 % [facility] Basophils/Leukocytes Auto (Bld) [Pure # fraction] 0.1 E9/L Normal 0.0 - 0.2 E9/L [facility] Eosinophils/100 WBC (Bld) 4.1 % Normal 0.0 - 8.0 % [facility] Eosinophils/Leukocyt es Auto (Bld) [Pure # fraction] 0.3 E9/L Normal 0.0 - 0.5 E9/L [facility] Lymphocytes/100 WBC (Bld) 26.4 % Normal 14.0 - 50.0 % [facility] Lymphocytes/Leukocyt es Auto (Bld) [Pure # fraction] 1.8 E9/L Normal 1.0 - 4.0 E9/L [facility] Monocytes/100 WBC (Bld) 8.1 % Normal 4.0 - 14.0 % [facility] Monocytes/Leukocytes Auto (Bld) [Pure # fraction] 0.5 E9/L Normal 0.2 - 1.0 E9/L [facility] Neutrophils/100 WBC (Bld) 60.6 % Normal 36.0 - 75.0 % [facility] Neutrophils/Leukocyt es Auto (Bld) [Pure # fraction] 4.1 E9/L Normal 2.0 - 7.5 E9/L [facility] HEMATOLOGYOrdered By: Alice Carey on 06-19-2022 Erythrocyte distribution width (RBC) [Ratio] 14.7 % High 10.9 - 14.2 % [facility] Hematocrit (Bld) [Volume fraction] 40.9 % Normal 34.0 - 46.0 % [facility] Hemoglobin (Bld) [Mass/Vol] 13.7 g/dL Normal 12.0 - 16.0 gm/dL [facility] MCH (RBC) [Entitic mass] 29.3 pg Normal 27.0 - 34.0 pg [facility] MCHC (RBC) [Mass/Vol] 33.4 g/dL Normal 31.4 - 36.0 gm/dL [facility] MCV (RBC) [Entitic vol] 87.8 fL Normal 80.0 - 100.0 fL [facility] Platelet mean volume (Bld) [Entitic vol] 8.3 fL Normal 6.4 - 10.8 fL [facility] Platelets (Bld) [#/Vol] 216.0 E9/L Normal 150.0 - 500.0 E9/L [facility] RBC (Bld) [#/Vol] 4.7 E12/L Normal 4.3 - 5.9 E12/L [facility] WBC corrected for nucl RBC Auto (Bld) [#/Vol] 6.8 E9/L Normal 4.0 - 11.0 E9/L [facility] MG MAMM DIAGNOSTIC 3D TAMMY CA Don 05-29-2022 MG MAMM DIAGNOSTIC 3D TAMMY CAD Patient: IVONNE CESPEDES Exam Date: 05/29/2022 : 1955 Gender:F Ordering : DR NURYS BOGGS M.D. Admission #: [id number] Family : Order #: [id number] CLICK HERE TO VIEW EXAM RADIOLOGY REPORT PROCEDURE: MAMMOGRAM DIAGNOSTIC 3D BILATERAL CAD COMPARISON: MG MAMM RT DIAG W CAD, 05/20/2020. MAMMO POST BIOPSY RIGHT, 10/27/2019. MG MAMM SCREEN TAMMY W CAD, 10/09/2017. MG MAMM DIAGNOSTIC 3D TAMMY CAD, 05/26/2021. 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 LOCATION: [facility] BREAST COMPOSITION: Extremely dense, which lowers the sensitivity of mammography. FINDINGS: DIAGNOSTIC CATEGORY 2--BENIGN FINDING: RIGHT BREAST: Stable surgical changes and marker clip within the posterior upper inner quadrant. LEFT BREAST: No significant suspicious finding. No significant change has occurred. RECOMMENDATIONS: ROUTINE MAMMOGRAM AND CLINICAL EVALUATION IN 12 MONTHS. PLEASE NOTE: A NORMAL MAMMOGRAM DOES NOT EXCLUDE THE POSSIBILITY OF BREAST CANCER. A CLINICALLY SUSPICIOUS PALPABLE LUMP SHOULD BE BIOPSIED. Dictated by: Chaparro Eckert M.D. on 05/29/2022 at 14:32 Approved by: Chaparro Eckert M.D. on 05/29/2022 at 15:37 Normal [facility] CHEMISTRYOrdered By: SYSTEM SYSTEM on 03-16-2022 Creatinine [Mass/Vol] 0.8 mg/dL Normal 0.5 - 1.3 mg/dL [facility] Remisol GFR/1.73 sq M.predicted among blacks MDRD (S/P/Bld) [Vol rate/Area] mL/min/1.73 m2 Normal >=59mL/min/1.73 m2 [facility] Chem S GFR/1.73 sq M.predicted among non-blacks MDRD (S/P/Bld) [Vol rate/Area] mL/min/1.73 m2 Normal >=59mL/min/1.73 m2 [facility] Chem S CT ABD/PELV W CONon 02-03-20 CT ABD/PELV W CON EXAMINATION: CT ABD/PELV W CON, 02/01/2022 1:02 PM EDT HISTORY: Abdominal pain , bilateral lower abdominal pain, cramping COMPARISON: 03/20/2021 TECHNIQUE: CT scan of the abdomen and pelvis was performed with IV contrast. CT dose reduction technique was used, including Automated Exposure Control. FINDINGS: LUNG BASES: No visible pulmonary or pleural disease. LIVER: Hepatomegaly. Diffuse hypoattenuation of the liver BILIARY: Surgical clips from a cholecystectomy PANCREAS: No lesion, fluid collection, ductal dilatation, or atrophy. SPLEEN: No enlargement or focal lesion. ADRENALS: No mass or enlargement. KIDNEYS: No mass, obstruction, or calcification. BOWEL/MESENTERY: Moderate colonic diverticulosis without evidence of acute diverticulitis. Nonobstructive bowel gas pattern. Normal appendix. AORTA/VASCULAR: No aortic aneurysm or dissection. Atherosclerosis. RETROPERITONEUM: No mass or adenopathy. LYMPH NODES: No adenopathy. URINARY BLADDER: No visible focal wall thickening, lesion, or calculus. PELVIC ORGANS: Hysterectomy ABDOMINAL WALL: No mass or hernia. BONES: Moderate to severe disc space narrowing L5-S1. 2 mm anterolisthesis of L4 in relation L5 OTHER: Negative. IMPRESSION: Hepatomegaly with hepatic steatosis Extensive colonic diverticulosis without evidence of acute diverticulitis Electronically authenticated by: ALEXANDRO DEL VALLE Date: 2022-02-02 09:00 Normal [facility] CREATININEon 02-01-2022 Creatinine [Mass/Vol] 0.71 mg/dL Normal 0.55-1.02 [facility] Comment on above: Performed By: #### C IVAN #### [facility] [address] [place], [place] [address] Dr. Marcelo Blackwell EGFR-AF CZECH >60 Normal >=60 [facility] Comment on above: Performed By: #### C IVAN #### [facility] [address] [place], [place] [address] Dr. Marcelo Blackwell EGFR-NON AF CZECH >60 Normal >=60 [facility] Comment on above: Performed By: #### C IVAN #### [facility] [address] [place], [place] [address] Dr. Marcelo Blackwell Complete Blood Count with Au to Diffon 10-16-2021 Basophils (Bld) [#/Vol] 0.07 10*3/uL Normal 0.00-0.20 [facility] Comment on above: Performed By: #### T SH reflex FT4, CMP, CBCAD, FT4, LIPD, VITD #### [facility] [address] [place], [place] [id number] Basophils/100 WBC (Bld) 1.4 % Normal [facility] [employer] Comment on above: Performed By: #### T SH reflex FT4, CMP, CBCAD, FT4, LIPD, VITD #### [facility] [address] [place], [place] [id number] Eosinophils (Bld) [#/Vol] 0.28 10*3/uL Normal 0.02-0.50 [facility] [employer] Comment on above: Performed By: #### T SH reflex FT4, CMP, CBCAD, FT4, LIPD, VITD #### [facility] [address] [place], [place] [id number] Eosinophils/100 WBC (Bld) 5.7 % Normal [facility] [employer] Comment on above: Performed By: #### T SH reflex FT4, CMP, CBCAD, FT4, LIPD, VITD #### [facility] [address] [facility] [place] [id number] Erythrocyte distribution width (RBC) [Ratio] 13.9 % Normal 11.0-15.0 [place] [employer] Comment on above: Performed By: #### T SH reflex FT4, CMP, CBCAD, FT4, LIPD, VITD #### [facility] [address], [place] [id number] Hematocrit (Bld) [Volume fraction] 41.9 % Normal 35.0-47.0 [facility] Comment on above: Performed By: #### T SH reflex FT4, CMP, CBCAD, FT4, LIPD, VITD #### [facility] [address], [place] [id number] Hemoglobin (Bld) [Mass/Vol] 13.5 g/dL Normal 11.6-15.5 [facility] Comment on above: Performed By: #### T SH reflex FT4, CMP, CBCAD, FT4, LIPD, VITD #### [facility] [address], [place] [phone] Lymphocytes (Bld) [#/Vol] 1.6 10*3/uL Normal 0.9-3.9 [facility] Comment on above: Performed By: #### T SH reflex FT4, CMP, CBCAD, FT4, LIPD, VITD #### [facility] [address], [place] [id number] Lymphocytes/100 WBC (Bld) 31.6 % Normal [facility] [employer] Comment on above: Performed By: #### T SH reflex FT4, CMP, CBCAD, FT4, LIPD, VITD #### [facility] [address], [place] [id number] MCH (RBC) [Entitic mass] 28.8 pg Normal 27.0-33.0 [facility] [employer] Comment on above: Performed By: #### T SH reflex FT4, CMP, CBCAD, FT4, LIPD, VITD #### [facility] [address], [place] [phone] MCHC (RBC) [Mass/Vol] 32.2 g/dL Normal 32.0-36.0 [facility] [employer] Comment on above: Performed By: #### T SH reflex FT4, CMP, CBCAD, FT4, LIPD, VITD #### [facility] [address], [place] [id number] MCV (RBC) [Entitic vol] 90 fL Normal 80-100 [facility] Comment on above: Performed By: #### T SH reflex FT4, CMP, CBCAD, FT4, LIPD, VITD #### [facility] [address], [place] [id number] Monocytes (Bld) [#/Vol] 0.5 10*3/uL Normal 0.2-0.9 [facility] Comment on above: Performed By: #### T SH reflex FT4, CMP, CBCAD, FT4, LIPD, VITD #### [facility] [address], [place] [id number] Monocytes/100 WBC (Bld) 10.0 % Normal [facility] Comment on above: Performed By: #### T SH reflex FT4, CMP, CBCAD, FT4, LIPD, VITD #### [facility] [address], [place] [id number] Neutrophils (Bld) [#/Vol] 2.5 10*3/uL Normal 1.5-7.8 [facility] Comment on above: Performed By: #### T SH reflex FT4, CMP, CBCAD, FT4, LIPD, VITD #### [facility] [address], [place] [id number] Neutrophils/100 WBC (Bld) 51.1 % Normal [facility] Comment on above: Performed By: #### T SH reflex FT4, CMP, CBCAD, FT4, LIPD, VITD #### [facility] [address], [place] [id number] Platelet mean volume (Bld) [Entitic vol] 10.10 fL Normal 7.50-12.50 [facility] Comment on above: Performed By: #### T SH reflex FT4, CMP, CBCAD, FT4, LIPD, VITD #### [facility] [address], [place] [id number] Platelets (Bld) [#/Vol] 236 10*3/uL Normal 140-400 [facility] Comment on above: Performed By: #### T SH reflex FT4, CMP, CBCAD, FT4, LIPD, VITD #### [facility] [address], [place] [id number] RBC (Bld) [#/Vol] 4.68 10*6/uL Normal 3.90-5.20 [facility] [employer] Comment on above: Performed By: #### T SH reflex FT4, CMP, CBCAD, FT4, LIPD, VITD #### [facility] [address], [place] [id number] RDW-SD 45.1 fL Normal 37.0-50.0 [facility] Comment on above: Performed By: #### T SH reflex FT4, CMP, CBCAD, FT4, LIPD, VITD #### [facility] [address], [place] [id number] WBC (Bld) [#/Vol] 4.9 10*3/uL Normal 3.8-11.0 [facility] [employer] Comment on above: Performed By: #### T SH reflex FT4, CMP, CBCAD, FT4, LIPD, VITD #### [facility] [address], [place] [id number] Comprehensive Met[facility] 10-16-2021 Albumin [Mass/Vol] 4.3 g/dL Normal 3.6-5.1 [facility] [employer] Comment on above: Performed By: #### T SH reflex FT4, CMP, CBCAD, FT4, LIPD, VITD #### [facility] [address], [place] [id number] Albumin/Globulin [Mass ratio] 1.7 {ratio} Normal 1.0-2.5 [facility] [employer] Comment on above: Performed By: #### T SH reflex FT4, CMP, CBCAD, FT4, LIPD, VITD #### [facility] [address], [place] [id number] ALP [Catalytic activity/Vol] 90 U/L Normal 35-119 [facility] [employer] Comment on above: Performed By: #### T SH reflex FT4, CMP, CBCAD, FT4, LIPD, VITD #### [facility] [address], [place] [id number] ALT [Catalytic activity/Vol] 11 U/L Normal 6-33 [facility] Comment on above: Result Comment: 07/26 Female reference range changed. Performed By: #### T SH reflex FT4, CMP, CBCAD, FT4, LIPD, VITD #### [facility] [address], [place] [id number] Anion gap [Moles/Vol] 17 mmol/L Normal 12-20 [facility] Comment on above: Result Comment: Effe ctive 08/31/2019 reference range changed. Performed By: #### T SH reflex FT4, CMP, CBCAD, FT4, LIPD, VITD #### [facility] [address], [place] [id number] AST [Catalytic activity/Vol] 17 U/L Normal 9-34 [facility] Comment on above: Performed By: #### T SH reflex FT4, CMP, CBCAD, FT4, LIPD, VITD #### [facility] [address], [place] [id number] BUN/CREA 24 Ratio High 6-22 [facility] Comment on above: Performed By: #### T SH reflex FT4, CMP, CBCAD, FT4, LIPD, VITD #### [facility] [address], [place] [id number] Calcium [Mass/Vol] 9.7 mg/dL Normal 8.6-10.2 [facility] Comment on above: Performed By: #### T SH reflex FT4, CMP, CBCAD, FT4, LIPD, VITD #### [facility] [address], [place] [id number] Chloride [Moles/Vol] 104 mmol/L Normal 98-107 [facility] Comment on above: Performed By: #### T SH reflex FT4, CMP, CBCAD, FT4, LIPD, VITD #### [facility] [address], [place] [id number] CO2 [Moles/Vol] 27 mmol/L Normal 20-31 [facility] Comment on above: Performed By: #### T SH reflex FT4, CMP, CBCAD, FT4, LIPD, VITD #### [facility] [address], [place] [id number] Creatinine [Mass/Vol] 0.5 mg/dL Low 0.6-1.4 [facility] Comment on above: Performed By: #### T SH reflex FT4, CMP, CBCAD, FT4, LIPD, VITD #### [facility] [address], [place] [id number] eGFRAA 152 mL/min/1.73m2 Normal >60 [facility] Comment on above: Performed By: #### T SH reflex FT4, CMP, CBCAD, FT4, LIPD, VITD #### [facility] [address], [place] [id number] eGFRNAA 126 mL/min/1.73m2 Normal >60 [facility] Comment on above: Performed By: #### T SH reflex FT4, CMP, CBCAD, FT4, LIPD, VITD #### [facility] [address], [place] [id number] Globulin (S) [Mass/Vol] 2.5 g/dL Normal 1.9-3.7 [facility] Comment on above: Performed By: #### T SH reflex FT4, CMP, CBCAD, FT4, LIPD, VITD #### [facility] [address], [place] [id number] Glucose [Mass/Vol] 92 mg/dL Normal 65-99 [facility] Comment on above: Result Comment: For FASTING Glucose --- ADA reference ranges: Normal 65-99 mg/dl Prediabetes 100-125 Diabetes >/= 126 Performed By: #### T SH reflex FT4, CMP, CBCAD, FT4, LIPD, VITD #### [facility] [address], [place] [id number] Potassium [Moles/Vol] 4.5 mmol/L Normal 3.5-5.5 [facility] Comment on above: Performed By: #### T SH reflex FT4, CMP, CBCAD, FT4, LIPD, VITD #### [facility] [address], [place] [id number] Protein [Mass/Vol] 6.8 g/dL Normal 6.1-8.1 [facility] [place] [employer] Comment on above: Performed By: #### T SH reflex FT4, CMP, CBCAD, FT4, LIPD, VITD #### [facility] [address], [place] [id number] Sodium [Moles/Vol] 143 mmol/L Normal 135-146 [facility] [place] [employer] Comment on above: Performed By: #### T SH reflex FT4, CMP, CBCAD, FT4, LIPD, VITD #### [facility] [address], [place] [id number] TBIL <0.3 Normal [facility] [employer] Comment on above: Performed By: #### T SH reflex FT4, CMP, CBCAD, FT4, LIPD, VITD #### [facility] [address], [place] [id number] Urea nitrogen [Mass/Vol] 12 mg/dL Normal 7-25 [facility] [employer] Comment on above: Performed By: #### T SH reflex FT4, CMP, CBCAD, FT4, LIPD, VITD #### [facility] [address], [place] [id number] Free T4on 10-16-2021 Free T4 [Mass/Vol] 0.93 ng/dL Normal 0.80-1.80 [employer] [facility] [place] [employer] Comment on above: Performed By: #### T SH reflex FT4, CMP, CBCAD, FT4, LIPD, VITD #### [facility] [address], [place] [id number] Lipid Panelon 10-16-2021 Cholesterol [Mass/Vol] 172 mg/dL Normal 125-200 [facility] [employer] Comment on above: Result Comment: Low risk < 200mg/dL Borderline risk 201-239 mg/dl High risk > or equal to 240 Performed By: #### T SH reflex FT4, CMP, CBCAD, FT4, LIPD, VITD #### [facility] [address], [place] [id number] Cholesterol in HDL [Mass/Vol] 41 mg/dL Normal >40 [facility] [employer] Comment on above: Result Comment: High Cardiovascular Risk HDL <40 mg/dL Low Cardiovascular Risk HDL > or equal to 60 mg/dl Performed By: #### T SH reflex FT4, CMP, CBCAD, FT4, LIPD, VITD #### [facility] [address], [place] [id number] Cholesterol in LDL [Mass/Vol] 96 mg/dL Normal [facility] Comment on above: Result Comment: LDL ATP III CLASSIFICATION LDL less than 100 mg/dl Optimal LDL 100-129 mg/dl Near or above optimal LDL 130-159 Borderline high LDL 160-189 High LDL greater than 189 mg/dl Very High Performed By: #### T SH reflex FT4, CMP, CBCAD, FT4, LIPD, VITD #### [facility] [address], [place] [id number] Cholesterol in VLDL [Mass/Vol] 35 mg/dL Normal [facility] [employer] Comment on above: Performed By: #### T SH reflex FT4, CMP, CBCAD, FT4, LIPD, VITD #### [facility] [address], [place] [id number] Cholesterol.total/Ch olesterol in HDL [Mass ratio] 4 {ratio} Normal [facility] [employer] Comment on above: Performed By: #### T SH reflex FT4, CMP, CBCAD, FT4, LIPD, VITD #### [facility] [address], [place] [id number] Triglyceride [Mass/Vol] 176 mg/dL High 30-150 [facility] [employer] Comment on above: Result Comment: TRIG ATPIII CLASSIFICATIONS TRIG less than 150 mg/dl Normal TRIG 150-199 mg/dl Borderline High TRIG 200-500 mg/dl High TRIG greather than 500 mg/dl Very High Performed By: #### T SH reflex FT4, CMP, CBCAD, FT4, LIPD, VITD #### [facility] [address], [place] [id number] TSH w/ Reflex to Free T4on 0 - FT4 reflex Free T4 Normal [facility] [employer] Comment on above: Performed By: #### T SH reflex FT4, CMP, CBCAD, FT4, LIPD, VITD #### [facility] [address] [place], [place] [id number] TSH 5.760 uIU/mL High 0.400-4.500 [facility] [employer] Comment on above: Performed By: #### T SH reflex FT4, CMP, CBCAD, FT4, LIPD, VITD #### [facility] [address], [place] [id number] Vitamin D 25-OHon 10-16-2021 VIT D 25 OH 53 ng/ml Normal >29 [facility] [employer] Comment on above: Result Comment: Mariana min D Status Deficiency <20 ng/mL Insufficiency 20-29 ng/mL Optimal 30-100 ng/mL Possible Toxicity >=150 ng/mL Performed By: #### T SH reflex FT4, CMP, CBCAD, FT4, LIPD, VITD #### [facility] [address], [place] [id number] Anesthesia Noteon 06-02-2021 Anesthesia Note [facility] Patient: IVONNE CESPEDES [address] [place] [address] MR#: [id number] ANESTHESIA NOTE : Service Date: 06/02/21 1057 Post-anesthesia Note Note Patient assessed post operatively for the following: [X ] Respiratory function, including respiratory rate, airway patency and oxygen saturation [X ] Cardiovascular function, including pulse rate and blood pressure [X ] Mental status [X ] Temperature [X ] Pain [X ] Nausea and vomiting [X ] Postoperative hydration [X ] No Visual Changes Due to the following condition(s) additional monitoring may be necessary: [ ] [X ] No apparent anesthesia complications noted. [X ] Status as per pre-op Electronically Signed eSign Date and Time Yossi Vargas AA 06/02/21 1057 Scmiriam,Renu H. DO Normal [facility] BASIC MET PANELon 06-02-2021 Anion gap [Moles/Vol] 10 mmol/L Normal 6-18 [facility] Comment on above: Performed By: #### M 400.56089 #### Test performed at: [place] [address] Calcium [Mass/Vol] 8.4 mg/dL Low 8.5-10.1 [facility] Comment on above: Performed By: #### M 400.28061 #### Test performed at: [address] [address] Chloride [Moles/Vol] 106 mmol/L Normal 98-107 [facility] Comment on above: Performed By: #### M 400.53581 #### Test performed at: [address] [address] CO2 [Moles/Vol] 26 mmol/L Normal 21-32 [facility] Comment on above: Performed By: #### M 400.34031 #### Test performed at: [address] [address] Creatinine [Mass/Vol] 0.649 mg/dL Normal 0.550-1.020 [facility] Comment on above: Performed By: #### M 400.44600 #### Test performed at: [address] [address] Glucose [Mass/Vol] 167 mg/dL High 70-99 [facility] Comment on above: Result Comment: Fast ing GLUCOSE reference range has been updated per (ADA) [place] [employer]'s recommendation. 11/18/2018 Performed By: #### M 400.50757 #### Test performed at: [address] [address] OSM 290 mosm/kg Normal 270-300 [facility] Comment on above: Performed By: #### M 400.18232 #### Test performed at: [address] [address] Potassium [Moles/Vol] 4.2 mmol/L Normal 3.5-5.1 [facility] Comment on above: Performed By: #### M 400.44524 #### Test performed at: [place] [address] Sodium [Moles/Vol] 138 mmol/L Normal 136-145 [facility] Comment on above: Performed By: #### M 400.25597 #### Test performed at: [place] [address] Urea nitrogen [Mass/Vol] 12 mg/dL Normal 7-18 [facility] Comment on above: Performed By: #### M 400.75502 #### Test performed at: [place] [address] Discharge CCD Assessmenton 1 Discharge CCD Assessment [facility] Patient: IVONNE CESPEDES [address] [place] [address] MR#: [id number] DISCHARGE CCD ASSESSMENT : 53 Service Date: 06/02/21 1029 Discharge CCD Assessment Assessment Patient discharged home to continue pain control, wound care, and exercises. Electronically Signed eSign Date and Time Comfort Chao 06/02/21 1030 Dev Villafana MD Normal [facility] GFR ESTIMATEon 06-02-2021 IF AMER > 60 Normal > 60 [facility] Comment on above: Result Comment: eGFR (Estimated GFR) Units of measure:mL/min/1.73 meters sq. *CALCULATION REVISED 06/14/2015;IDMS-traceable MDRD equation eGFR is derived from the reexpressed MDRD Study equation using the following parameters: serum creatinine, age, gender and race. An eGFR<60 mL/min/1.73m2 for >3 months is consistent with chronic kidney disease. Refer to KDOQI guidelines for clinical interpretation. Performed By: #### M 400.03231 #### Test performed at: [place] [address] IF non-AFR AMER > 60 Normal > 60 [facility] Comment on above: Performed By: #### M 400.99754 #### Test performed at: [place] [address] HGB AND HCTon 06-02-2021 Hematocrit (Bld) [Volume fraction] 33.9 % Low 36.0-48.0 [facility] Comment on above: Performed By: #### M 400.68615 #### Test performed at: [place] [address] Hemoglobin (Bld) [Mass/Vol] 11.0 g/dL Low 12.0-15.0 [facility] Comment on above: Result Comment: Delt a: 13.7 on 05/30/21-1240 Performed By: #### M 400.87176 #### Test performed at: [place] [address] Internal Med Progress Noteon 06-02-2021 Internal Med Progress Note [facility] Patient: IVONNE CESPEDES [address] [place] [address] MR#: [id number] PROGRESS NOTE - Internal Medicine : 53 Service Date: 06/02/21724 Subjective Primary Resident: Kar Canales After Hours Call: [phone] Blue Team Summary of Stay a 66 y/o F pt with PMHx of EKRON who is POD#1 s/p L5-S1 extraspinal decompression with partial facetectomy and foraminotomy. IM was consulted for post op care. Procedure was done under general anesthesia and EBL was<30 cc. No drain or meza. Pt tolerated the procedure well w/o complications. Pt complains of surgical site pain controlled with pain meds. BP in the 90s/50s, will encourage oral intake and monitor for symtpoms and consider IVF. Events since last encounter Uneventful Subjective No BM, passing gas Passes urine voluntarily Ambulating General Denies Chills, Denies Night sweats, Denies Fatigue HEENT Denies Head Aches, Denies Eye Pain, Denies Ear Pain Pulmonary Denies Dyspnea, Denies Cough, Denies Pleuritic Chest Pain Cardiovascular Denies Chest Pain, Denies Palpitations, Denies Lt Headedness Gastrointestinal Denies Nausea, Denies Vomiting, Denies Abdominal Pain, Denies Diarrhea, Denies Constipation Musculoskeletal Denies Back Pain Neurological Denies Weakness, Denies Numbness, Denies Confusion Objective Exam Vitals and I/O Vital Signs Verdana 4d Result Date Time Pulse Ox 91 06/02 822 B/P 95/58 06/02 822 Temp 36.6 06/02 822 Pulse 65 06/02 822 Resp 17 06/02 822 O2 Delivery NASAL CANNULA 06/02 451 O2 Flow Rate 3 06/01 1429 Intake AND Output Verdana 4d 06/02 23006/01 230 Intake Total 1460 1480 Output Total 500 1450 Balance 960 30 Intake, IV 1100 500 Oral 360 980 utput, Urine 500 1450 Patient 53 kg eight Weight PATIENT STATES easurement ethod General Appearance Alert, Oriented X3, Cooperative, No Acute Distress HEENT Atraumatic, Mucous Membr. moist/pink Lungs Clear to Auscultation, Normal Air Movement Neck Supple, No JVD Cardiovascular Regular Rate, Normal S1, Normal S2, No Murmurs, No Gallops Abdomen Normal Bowel Sounds, Soft, No Tenderness Extremities No Edema, No Tenderness/Swelling Neurological Normal Speech, Strength at 5/5 X4 Ext, Sensation Intact Assessment/Plan-Int ernal Med Problem List 1. Status post lumbar spine surgery for decompression of spinal cord Med Reasons/Tx for Con't stay #S/p s/p L5-S1 extraspinal decompression with partial facetectomy and foraminotomy POD 1 Assessment #S/p s/p L5-S1 extraspinal decompression with partial facetectomy and foraminotomy POD 1: - DOS 06/01/21 - Pt tolerated the procedure well. - Vitals wnl post op except for BP 90s/50s - PE as above - Passes urine voluntarily - No BM, passes gas - No meza or drain in place PLAN: - Encourage incentive spirometry - Encourage ambulation as able - Encourage oral intake and consider IVF if BP remains low - PT/OT on board - Pain mgmt as per surgery - Bowel care / Nausea management per surgery - Cefazolin 50mg q8h total 3 doses per surgery - Decadron Q8IV total two doses per surgery - Hydralazine 10 mg once PRN per surgery for elevated BP (PACU) # KERON - Stable Cont home meds: - Zoloft 50mg po daily # Acute blood loss anemia - Hgb 13.7 ((in 05/30/21)) to 11.0 #DVT prophylaxis: - Per surgery Be sure to note changes Be sure to note changes DVT Prophylaxis Per surgery *Attending Attestation Attending Attestation Attending Attestation All pertinent elements of history and physical exam were confirmed by me. Agree with above documentation. The [resident's, PA's, DESK TOP PUBLISHER's] assessment and plan reflect my input. Discussed with documenting provider and patient. Plan is as outlined above. Electronically Signed eSign Date and Time Bar Canales Donald E. MD 06/03/21 2346 Daija Henry RES Normal [facility] OT Therapy Recommendationson 06-02-2021 OT Therapy Recommendations [facility] Patient: IVONNE CESPEDES [address] [place] [address] MR#: [id number] OT THERAPY RECOMMENDATIONS : 53 Service Date: 06/02/21 1143 Therapy Recommendations Therapy Recommendations Recommendations Occupational therapy eval complete. No skilled OT indicated. Recommend home with family assist. D/C OT services. Electronically Signed eSign Date and Time Cathryn Stoll OT 06/02/21 1144 Normal [facility] Orthopedic Progress Noteon 1 Orthopedic Progress Note [facility] Patient: IVONNE CESPEDES [address] [place], [place] [id number] MR#: [id number] PROGRESS NOTE - Orthopedic : 53 Service Date: 06/02/21 1125 Objective Exam General Appearance Alert, Oriented X3, Cooperative, No Acute Distress HEENT PERRLA Lungs Clear to Auscultation Neck Supple Cardiovascular Regular Rate Abdomen Normal Bowel Sounds, Soft, No Tenderness Extremities No Edema, Normal Pulses, No Tenderness/Swelling Skin No Rashes, No Breakdown, No Significant Lesion Neurological Normal Gait, Normal Speech, Strength at 5/5 X4 Ext, Normal Tone, Sensation Intact Psych/Mental Status Mental Status NL Other Physical Findings Laboratory Tests Last 24 Hrs 06/02 0544 Chemistry Sodium (136 - 145 mmol/L) 138 Potassium (3.5 - 5.1 mmol/L) 4.2 Chloride (98 - 107 mmol/L) 106 Carbon Dioxide (21 - 32 mmol/L) 26 Anion Gap (6 - 18) 10 BUN (7 - 18 mg/dL) 12 Creatinine (0.550 - 1.020 mg/dL) 0.649 Est GFR ( Amer) (> 60) > 60 Est GFR (Non-Af Amer) (> 60) > 60 Glucose (70 - 99 mg/dL) 167 H Calculated Osmolality (270 - 300 mosm/kg) 290 mg/dL) 8.4 L ematology Hgb (12.0 - 15.0 g/dL) 11.0 L Hct (36.0 - 48.0 %) 33.9 L Vital Signs Verdana 4d Result Date Time B/P 06/02 1058 Temp 36.6 06/02 1058 Pulse 65 06/02 1058 Resp 17 06/02 1058 Pulse Ox 96 06/02 1058 O2 Delivery NASAL CANNULA 06/02 0451 O2 Flow Rate 3 06/01 1429 Intake AND Output Verdana 4d 06/02 2300 06/01 2300 Intake Total 1460 1480 Total 500 1450 alance 960 30 Intake, IV 1100 500 Intake, Oral 360 980 Output, Urine 500 1450 Patient 52.617 kg 53 kg eight Weight PATIENT STATES easurement ethod MINIMAL POST OP PAIN. SURGICAL PAIN ONLY. PATIENT STATES HER LEG PAIN IS GONE. DENIES NUMBNESS AND TINGLING. STRENGTH WNL. VOIDING WITHOUT DIFFICULTY. PASSING GAS. DRESSING TO BACK REMOVED INCISION WELL APPROXIMATED WITH DERMABOND GLUE. NO DRAINAGE. DISACHARGE INSTRUCTIONS DISCUSSED PATIENT STATED UNDERSTANDING. DR VILLAFANA AWAR EOF ABOVE AND PLAN OF CARE. Assessment and Plan - ICD10 Problem List 1. Status post lumbar spine surgery for decompression of spinal cord 2. Smoker 3. Anxiety Assessment D/C HOME TODAY FOLLW UP WITH DR VILLAFANA IN 2 WEEKS Electronically Signed eSign Date and Time Sabrina Reagan RN 06/02/21 1128 Dev Villafana MD Normal [facility] PT Therapy Recommendationson 06-02-2021 PT Therapy Recommendations [facility] Patient: IVONNE CESPEDES [address] [place] [address] MR#: [id number] PT THERAPY RECOMMENDATIONS : 53 Service Date: 06/02/21 1503 Therapy Recommendations Therapy Recommendations Recommendations PT EVAL COMPLETED. DC RECOMM: HOME WITH ASST. FROM FAMILY AND FRIENDS. Electronically Signed eSign Date and Time Twyla Billings PT 06/02/21 1503 Normal [facility] z OT Inpatient Discharge Not nadir 06-02-2021 z OT Inpatient Discharge Note [facility] Patient: IVONNE CESPEDES [address] [place] [id number] MR#: [id number] OT INPATIENT DISCHARGE NOTE : 53 Service Date: 06/02/21 1339 z OT HPI Discharge Note Total number of visits 1 Date of Discharge 06/02/21 Start of Care Date 06/02/21 z OT Inpatient AP Discharge Treatment Therapeutic Exercise, Therapeutic Activity, Patient Education, Orthotic Management, Self Care/ADL Training, HEP Equipment Issued None Treatment Goals Achieved: Yes Plan Discharge from OT DC Recommendations Home-No Home Health Care, Family Assistance OT Status: DISCHARGED Electronically Signed eSign Date and Time Cathryn Stoll OT 06/02/21 1339 Normal [facility] z OT Inpatient Evaluationon 06-02-2021 z OT Inpatient Evaluation [facility] Patient: IVONNE CESPEDES [place] [id number] MR#: [id number] OT INPATIENT EVALUATION : 53 Inpatient OT HPI Date of Service 06/02/21 Time In: 0939 Time Out: 1008 Total Treatment Time (Mins) 29 Visit Reason FORAMINAL STENOSIS Surgery Type/Date R L5-S1 decompression, foraminotomy, and partial facetectomy 06/01/21. Referral Date 06/01/21 Tx Diagnosis: LUMBAGO WITH R SCIATICA Insurance Name MEDICARE Hospital Course POD#1. Rn cleared pt. to participate. Pt. sitting edge of bed upon OT arrival to room and reports improvement post op symptoms. Past Medical/Social History Problem List Medical Problems Anxiety Surgical Problems Status post lumbar spine surgery for decompression of spinal cord Status post lumbar spine surgery for decompression of spinal cord Social History Problems Smoker Living Arrangements Home Lives With Alone, Does friends/family that can assist. Steps to Enter House 3 (/c railing) Stairs Inside House 12 (to 2nd fl bed/bath) ADL Equipment Environmental Protection Officer Bedroom Location 2nd Floor Bathroom Location 1st Floor (1/2), 2nd Floor (full tub 2nd floor) Shower Tub Functional Level mod I-I ADLs, IADLs, AND mobility. Denies falls. Objective Vital Signs Comments VSS Precautions Back Brace, Lumbar Spine Pain Character Ache, Sore Pain Location lumbar spine, incisional. Comments Rn aware, pt. being medicated as per MD orders and as requested. Reinforced importance of adhering to precautions. Equipment Peripheral IV Orientation Person, Place, Time, Situation Behavior Cooperative Sensation Intact to Light Touch Tone Within Normal Limits Hand Dominance Right Coordination Fine Motor Coordination Within Functional Limits Gross Motor Coordination Within Functional Limits Coordination Within Functional Limits Opposition Intact Proprioception Within Normal Limits ROM RUE ROM Within Functional Limits LUE ROM Within Functional Limits Comments Good return HEP 10x1 all planes. Strength RUE Strength Within Normal Limits LUE Strength Within Normal Limits Outcome Measures Perfecto Score Perfecto Score Response Value Feeding Independent 10 Bathing Independent 5 Grooming Independent 5 Dressing Independent 10 Bowels Continent 10 Bladder Continent 10 Toilet Independent 10 Back) Independent 15 obility (On Level Surfaces) Independent 15 Stairs Independent 10 Total 100 AM-PAC Inpt Daily Activity AM-PAC Inpt Daily Activity Response Value Lower Body Clothing None 4 Bathing None 4 Toileting None 4 Upper Body Clothing None 4 Personal Grooming None 4 Eating Meals None 4 Total 24 Comments 0% disability based on the Perfecto Index ADL Function ADL Function Upper Body Dressing Modified Independent Lower Body Dressing Modified Independent Toileting Modified Independent Feeding Independent Grooming Independent Comments Pt. instructed in AND performed LB ADL via modified techniques/adaptive tools as noted above. Information provided re: options for purchase AE/DME as indicated. Good return understanding demo'd/verbalized throughout session. No concerns voiced. SBA/supervision with brace management. Transfers Transfers Supine to Sit Modified Independent Sit to Stand Modified Independent Stand to Sit Modified Independent Sit to Supine Modified Independent Bed to Chair Modified Independent Chair to Bed Modified Independent Toilet Modified Independent Rolling Modified Independent Comments Good return log roll. Ambulation in room/department no device >150. Tolerated > 5 min of cont. standing. Good safety throughout. Static Sitting Balance Good Dynamic Sitting Balance Good Static Standing Balance Good Dynamic Standing Balance Good Treatment Additional Minutes of Tx Performed 15 Remained in Sitting edge of Bed All Needs Within Reach Yes Assessment/Plan for Inpt OT DC Recommendations Home-No Home Health Care, Family Assistance Topic #1 Rehabilitation Techniques Teaching Method: VERBAL EXPLANATION Teaching Method: WRITTEN MATERIALS Teaching Method: TEACHBACK Outcome: VERBALIZED/ADEQ TEACHBACK Rehab Potential Excellent Treatment Tolerance Good Assessment Patient does not demonstrate additional need for skilled OT services at this time. Patient Stated Goal: n/a Goals discussed with: Patient Frequency of Therapy Eval Only Patient Status DISCHARGED Eval Completed Yes Eval Complexity Low Complexity Treatment Performed Yes Electronically Signed eSign Date and Time Cathryn Stoll OT 06/02/21 1339 Normal [facility] z PT Inpatient Discharge Not nadir 06-02-2021 z PT Inpatient Discharge Note [facility] Patient: IVONNE CESPEDES [address] [id number] MR#: [id number] PT INPATIENT DISCHARGE NOTE : 51 Service Date: 06/02/21 1503 z PT Inpt. HPI Discharge Note Date of Discharge 06/02/21 Start of Care Date 06/02/21 Final Date of Care 06/02/21 z PT Inpatient AP Discharge Treatment: Therapeutic Activity, Patient Education, Therapeutic Exercise, Gait Training, HEP, Neuromuscular Reeducation Equipment Issued Handouts Plan Discharge from PT Discharge Recommendations Home-No Home Health Care PT Status: DISCHARGED Electronically Signed eSign Date and Time Twyla Billings PT 06/02/21 1504 Normal [facility] z PT Inpatient Evaluationon 06-02-2021 z PT Inpatient Evaluation [facility] Patient: IVONNE CESPEDES [id number] [id number] MR#: [id number] PT INPATIENT EVALUATION : 51 Service Date: 06/02/21 1504 Inpatient PT HPI Date of Service 06/02/21 Time In: 1315 Time Out: 1340 Total Treatment Time (Mins) 10 Room Number 604 Visit Reason FORAMINAL STENOSIS Surgery Type: R L5-S1 EXTRA SP. DECOMP W/ PARTIAL FACETEC, FORAMINOTOMY. Surgery Date: 06/01/21 Referral Date 06/01/21 Tx Diagnosis: LOW BACK PAIN Insurance Name MEDICARE Hospital Course 66 Y/O PATIENT ADMITTED TO HOSP FOR SX. PT ORDERS REC'D TO EVAL AND TX. LUMBAR PRECAUTIONS , BRACE ON, UP WITH ASST., ENCOURAGE AMBULATION/CALF/ANK LE EX'S. PATIENT ID'D VIA NAME AND . AT ARRIVAL SUPINE IN BED. Past Medical/Social History Problem List Medical Problems Anxiety Surgical Problems Status post lumbar spine surgery for decompression of spinal cord Status post lumbar spine surgery for decompression of spinal cord Social History Problems Smoker Functional Level Living Arrangements Home Lives With Alone, friends/family that can assist. Steps to Enter House 3 (/c railing) Stairs Inside House 12 (to 2nd fl bed/bath) ADL Equipment Environmental Protection Officer Bedroom Location 2nd Floor Bathroom Location 1st Floor (1/2), 2nd Floor (full tub 2nd floor) Shower Tub Functional Level mod I-I ADLs, IADLs, AND mobility. Denies falls. Patient reporting that she will stay on 1st floor first couple of weeks. Objective Pain Pain Scale 4 Pain Character Ache Pain Location Incisional Precautions Back Brace, Spinal Equipment SCD Dynamic Standing Balance Within Functional Limits Orientation Person, Place, Time, Situation Behavior Cooperative Sensation Within Functional Limits Tone Within Functional Limits Endurance Good Posture Within Functional Limits Wound/Skin incision Fine Motor Coordination Within Functional Limits Gross Motor Coordination Within Functional Limits ROM RUE ROM: SEE OT EVAL LUE ROM: SEE OT EVAL RLE ROM: WITHIN FUNCTIONAL LIMITS LLE ROM: WITHIN FUNCTIONAL LIMITS Strength RUE Strength: SEE OT EVALUATION LUE Strength: SEE OT EVALUATION RLE Strength: WITHIN FUNCTIONAL LIMITS LLE Strength: WITHIN FUNCTIONAL LIMITS Outcome Measures Modified Aileen Score 0-No Symptoms AM-PAC Inpatient Mobility AM-PAC Inpatient Mobility Response Value Turn Back/Side While Flat WO Bedrails None 4 Move From Lying to Side of Bed WO Bedrails None 4 Move To/From Bed to Chair None 4 Stand Up From Chair Using Arms None 4 Walk in Hospital Room None 4 limb 3-5 Steps W Railing A Little 3 otal 23 Mobility Transfers Supine to Sit Independent Sit to Supine Independent Sit to Stand Independent Stand to Sit Independent Stand Pivot Independent Rolling Independent Weight Bearing Full Weight Bearing Gait Patient ambulated Independently With Assistive Device None For (Feet) 65' X 2 Comments DEMO STEADY RECIPROCAL GT. Stairs Steps Up 3 Inch Steps 4 Steps Down 3 Inch Steps 4 Device Right Handrail Pattern Reciprocating Assistance Required Modified Independently Treatment Additional Minutes of Tx Performed 10 Remained in Bed All Needs Within Reach Yes Comments PATIENT EDUCATED ON PT ROLE, SERVICES, POC, DC RECOMMENDATION, BRACE WEARING, USE OR A.D. , PRECAUTION AND PROTOCOL AND L.E. EX'S: AP, QUAD AND GLUTEAL SETS, HEEL SLIDES IN SUPINE X 10 REPS. Assessment/Plan for Inpt PT Discharge Recommendations Home-No Home Health Care Topic #1 POLISHER IMPLANT Teaching Method: BOOKLET Teaching Method: TEACHBACK Outcome: RETURN SKILL DEMO Treatment Tolerance Good Assessment Patient has no acute physical therapy needs at this time, DC from acute physical therapy. Performing all transfers, gait, and stair navigation at MOD I level or greater. Verbalizing understanding of HEP/Precautions. Patient Stated Goal: N/A Frequency of Therapy: EVAL. Patient Status DISCHARGED Eval Completed Yes Eval Complexity Low Treatment Performed Yes Electronically Signed eSign Date and Time ManuelitoTwyla PT 06/02/21 1512 Normal [facility] Internal Medicine Consultati onon 06-01-2021 Internal Medicine Consultation [facility] Patient: IVONNE CESPEDES [address] [place] [address] MR#: [id number] CONSULTATION - Internal Medicine : 51 Service Date: 06/01/21 1247 History of Present Illness Referring Physician Dev Villafana MD Consulted Physician Maciej Dietrich MD Reason for Consult Medical evaluation Chief Complaint/Present Illness: POD#0 s/p L5-S1 extraspinal decompression with partial facetectomy and foraminotomy HPI a 66 y/o F pt with PMHx of KERON who is POD#0 s/p L5-S1 extraspinal decompression with partial facetectomy and foraminotomy. IM was consulted for post op care. Procedure was done under general anesthesia and EBL was<30 cc. No drain or meza. Pt tolerated the procedure well w/o complications. Pt is complaining of pain 5/10 at the surgical site without radiation, and she denies chest pain, SOB, abdominal pain, or other complaints. Pt was evaluated post op, vitals wnl except for a BP of 153/89. Medical/Surgical History Past Medical History Psychiatric History Anxiety Disorder Transfusion Status CONSERVATION Past Surgical History Past Surgical Histroy Cholecystectomy Family/Social History Social History Tobacco Use CIGARETTES Packs/Day 1 Alcohol NO Amount * Drug Use NO Occupation Retired Allergies/Home Medications Allergies Coded Allergies: BUPROPION (From LISA) (06/01/21) DIFFICULTY BREATHING Reconcile Medications Scheduled Medications Sertraline HCl * (Zoloft *) 50 MG TABLET 50 MG PO DAILY@9PM, Ref 0 (Reported) Entered as Reported by KM CUMMINS on 06/01/21826 Last Action: Continued on 06/01/21 1257 by BAR CANALES Review of Systems Review of Systems Constitutional Denies: Fever, Fatigue, Chills. Cardiovascular Denies: Chest Pain, Pain on Exertion, Dyspnea on Exertion, Orthopnea, Paroxysmal Nocturnal Dsyp. Pulmonary Denies: Pleuritic Chest Pain, Dyspnea, Cough. GI Denies: Abdominal Pain, Nausea, Vomiting, Diarrhea, Constipation. Denies: Dysuria, Hematuria, Hesitancy, Urgency. Musculoskeletal Reports: Back Pain. Skin Reports: Back Pain. Peripheral Venous/Lymphatics Denies Ankle Swelling, Denies Leg Swelling Neuro Denies: Headache, Syncope, Dizziness, Vertigo, Numbness, Weakness. Physical Exam Vital Signs Vital Signs Vital Signs Verdana 4d Result Date Time Pulse Ox 99 06/01 819 B/P 139/80 06/01 819 Temp 36.3 06/01 819 Pulse 70 06/01 819 Resp 16 06/01 819 Appearance Appearance Awake, Alert, In pain Cm: 152.40 Wt-K.000 BMI 22.4 Patient is Normal (BMI) Pain Scale 8 Neck Neck Normal inspection, No JVD HEENT HEENT Head atraumatic, Eyes normal inspection, Hearing grossly normal, No signs of dehydration, Mucosa moist Respiratory Respiratory Lungs sound clear, Respirations non-labored, Symmetrical expansion CVS Cardiovascular Rate WNL, Rhythm regular, Normal heart sounds Neuro * Document results of Cranial Nerve Asmt for all pts. Neurological Alert, Oriented x 3, No motor deficit, No sensory deficit Mental Status Oriented x 3 Speech/Language No: Dysarthric, Expressive aphasia, Comprehensive aphasia, Mixed aphasia. Motor Exam L lower extrmty Normal power, L upper extrmty Normal power, R lower extrmty Normal power, R upper extrmty Normal power Sensory Exam L lower extrmty Normal light touch, L upper extrmty Normal light touch, R lower extrmty Normal light touch, R upper extrmty Normal light touch Abdomen/Pelvis Abdomen Bowel sounds present, Abdomen soft, Non-tender, No distension Abdomen/GI - Expanded Exam No: Rigidity, Distention, Tenderness, Guarding, Rebound. Extremity Extremity Sensation intact, Motor Intact, No tenderness, No pedal edema Assessment/Plan Problem List 1. Status post lumbar spine surgery for decompression of spinal cord Assessment and Plan #S/p s/p L5-S1 extraspinal decompression with partial facetectomy and foraminotomy POD 0: - DOS 06/01/21 - Pt tolerated the procedure well. - Vitals wnl post op except for BP 153/89 mostly from pain - PE as above - No UO post op yet - No meza or drain in place PLAN: - Encourage incentive spirometry - Encourage ambulation as able - PT/OT on board - Pain mgmt as per surgery: - Acetaminophen 650mg po Q4PRN per surgery - Percocet Q4PRN per surgery - Dilaudid 10mg daily PRN per surgery - Bowel care / Nausea management as per surgery: - Mylanta PRN per surgery - Bisacodyl PRN per surgery - Milk of magnesia QHS PRN per surgery - Zofran Q8PRN per surgery - Docusate sodium 100 mg BID per surgery - Soma 350mg TID PRN - Cefazolin 50mg q8h total 3 doses per surgery - Decadron Q8IV total two doses per surgery - Hydralazine 10 mg once PRN per surgery for elevated BP (PACU) # KERON - Stable Cont home meds: - Zoloft 50mg po daily #DVT prophylaxis: - Per surgery *Attending Attestation Attending Attesta (more content not included)... Normal [facility] OPERATIVE REPORTon OPERATIVE REPORT NAME: IVONNE CESPEDES MR#: [id number] SURGEON: Dev Villafana MD DATE OF SURGERY: 06/01/2021 OPERATIVE REPORT PREOPERATIVE DIAGNOSES: Foraminal stenosis and post-laminectomy syndrome, lumbar. POSTOPERATIVE DIAGNOSES: Foraminal stenosis and post-laminectomy syndrome, lumbar. OPERATIVE PROCEDURE: Right L5-S1 extraforaminal decompression with foraminotomy and partial facetectomy. ANESTHESIA: General. DETAILS OF PROCEDURE: After anesthesia, the patient was placed prone on the spine frame. Care was taken to avoid injury to the eyes, the axilla, and the median and ulnar nerves. The back was prepped and draped in usual fashion. Incision was planned using a needle and C-arm. A transverse incision was made to the right of the spine over L5-S1 with sharp dissection of subcutaneous tissues. The fascia and paraspinal muscles were dissected bluntly down to the right L5-S1 facet joint. A tubular retractor was inserted and x-ray confirmed position. The facet joint area was cleared of soft tissue and there was substantial overgrowth of bone. The bone was burred away slowly and carefully getting down to the foraminal area in multiple steps. Foraminotomy was performed with Kerrison rongeurs. The inferior aspect of the transverse process was removed with Kerrison rongeurs, which widened the foraminotomy. This was performed in stages until we had a generous foraminotomy. This had disrupted the inner transverse ligament and that was carefully peeled back with a nerve hook and the portion of it removed with Kerrison rongeurs. This exposed the exiting L5 root underneath. The foramen was then palpated with a Murray nerve hook and it appeared that it was quite patent. X-rays confirmed that the Murray hook was into the canal well. The lateral aspect of the dura was palpable, indicating a good decompression. The disk was palpated and while it was bulging, it did not appear to press on or tent the nerve root in anyway, so I felt that diskectomy was not indicated. I felt that all the compressive pathology had been removed from the canal all the way out. The Murray was then turned and then passed out following the nerve root, which was quite free and patent. The wound was then irrigated with saline and Betadine solution. Hemostasis was achieved with FloSeal. The tubular retractor was removed and bleeding coagulated along the way. The fascia, subcutaneous tissues, and skin were closed in the usual manner. Dressings were applied. The patient was awoken and taken to recovery room in excellent condition. There were no [facility] PT NAME: IVONNE CESPEDES MR#: [id number] [address] [place] [address] ACCT: [id number] : 51 OPERATIVE REPORT complications. DEV VILLAFANA MD JFS/MODL/[id number] E/S: Dev Villafana MD 06/29/21 1129 Electronically Signed [facility] PT NAME: IVONNE CESPEDES MR#: [id number] [address] [place] [address] ACCT: [id number] : 51 OPERATIVE REPORT Normal [facility] Primary Residenton Primary Resident [facility] Pt Name: IVONNE CESPEDES MR#: [id number] [address] [place] [address] ACCT: [id number] [place] [address] : 51 Service Date: 06/01/21 1246 Primary Resident/Call Primary Resident: [id number] After Hours Call: [phone] Blue Team Electronically Signed eSign Date and Time ThonycliffBar Reside 06/01/21 1304 Normal [facility] LUMBAR SPINE 2 OR 3 VIEWSon 05-31-2021 LUMBAR SPINE 2 OR 3 VIEWS STUDY: LUMBAR SPINE 2 OR 3 VIEWS; 06/01/2021 12:20 pm INDICATION: L5-S1 EXTRAFORAMINAL DECOMP. FACETECTOMY, DISCECTOMY. COMPARISON: None. ACCESSION NUMBER(S): [id number] ORDERING CLINICIAN: Dev Villafana FINDINGS: Intraoperative fluoroscopy of the lumbar spine obtained for localization. IMPRESSION: As above Normal [facility] CBC W/DIFFon 05-30-2021 BASO ABS 0.1 K/uL Normal 0.0-0.2 [facility] Comment on above: Performed By: #### L 200.51163 #### Test performed at: [place] [address] Basophils/100 WBC (Bld) 0.8 % Normal [facility] Comment on above: Performed By: #### L 200.25684 #### Test performed at: [address] [address] EOS ABS 0.2 K/uL Normal 0.0-0.5 [facility] Comment on above: Performed By: #### L 200.33881 #### Test performed at: [address] [address] Eosinophils/100 WBC (Bld) 3.3 % Normal [facility] Comment on above: Performed By: #### L 200.78256 #### Test performed at: [address] [address] Erythrocyte distribution width (RBC) [Ratio] 14.3 % Normal 11.5-14.5 [facility] Comment on above: Performed By: #### L 200.48109 #### Test performed at: [address] [address] Hematocrit (Bld) [Volume fraction] 42.9 % Normal 36.0-48.0 [facility] Comment on above: Performed By: #### L 200.89137 #### Test performed at: [address] [address] Hemoglobin (Bld) [Mass/Vol] 13.7 g/dL Normal 12.0-15.0 [facility] Comment on above: Performed By: #### L 200.31761 #### Test performed at: [address] [address] IG % 0.2 % Normal [facility] Comment on above: Performed By: #### L 200.95213 #### Test performed at: [address] [address] IG ABS 0.01 K/uL Normal 0-0.05 [facility] Comment on above: Performed By: #### L 200.85082 #### Test performed at: [address] [address] Lymphocytes (Bld) [#/Vol] 1.8 10*3/uL Normal 1.2-3.5 [facility] Comment on above: Performed By: #### L 200.54983 #### Test performed at: [address] [address] Lymphocytes/100 WBC (Bld) 28.9 % Normal [facility] Comment on above: Performed By: #### L 200.11628 #### Test performed at: [address] [address] MCH (RBC) [Entitic mass] 29.3 pg Normal 25.4-34.6 [facility] Comment on above: Performed By: #### L 200.48699 #### Test performed at: [address] [address] MCHC (RBC) [Mass/Vol] 31.9 g/dL Normal 31.5-36.5 [facility] Comment on above: Performed By: #### L 200.94810 #### Test performed at: [address] [address] MCV (RBC) [Entitic vol] 91.7 fL Normal 79.0-98.0 [facility] Comment on above: Performed By: #### L 200.56475 #### Test performed at: [address] [address] MONO ABS 0.5 K/uL Normal 0.0-1.0 [facility] Comment on above: Performed By: #### L 200.77535 #### Test performed at: [address] [address] Monocytes/100 WBC (Bld) 7.4 % Normal [facility] Comment on above: Performed By: #### L 200.52049 #### Test performed at: [address] [address] NEUTROPHIL ABS 3.8 K/uL Normal 1.4-6.6 [facility] Comment on above: Performed By: #### L 200.82794 #### Test performed at: [address] [address] Neutrophils/100 WBC (Bld) 59.4 % Normal [facility] Comment on above: Performed By: #### L 200.23556 #### Test performed at: [address] [address] NRBC # 0.000 K/uL Normal 0-0.012 [facility] Comment on above: Performed By: #### L 200.73076 #### Test performed at: [address] [address] NRBC % 0.0 /100 WBC Normal 0-0.2 [facility] Comment on above: Performed By: #### L 200.79074 #### Test performed at: [address] [address] Platelet mean volume (Bld) [Entitic vol] 10.9 fL Normal 8.7-12.4 [facility] Comment on above: Performed By: #### L 200.79491 #### Test performed at: [address] [address] Platelets (Bld) [#/Vol] 224 10*3/uL Normal 140-440 [facility] Comment on above: Performed By: #### L 200.89461 #### Test performed at: [address] [address] RBC (Bld) [#/Vol] 4.68 10*6/uL Normal 3.5-5.5 [facility] Comment on above: Performed By: #### L 200.51370 #### Test performed at: [address] [address] WBC (Bld) [#/Vol] 6.4 10*3/uL Normal 3.9-11.0 [facility] Comment on above: Performed By: #### L 200.63003 #### Test performed at: [address] [address] CHEST PA/AP & LATERALon CHEST PA/AP & LATERAL STUDY: CHEST PA/AP LATERAL; 05/30/2021 12:50 pm INDICATION: SOB/PAT. COMPARISON: None. ACCESSION NUMBER(S): [id number] ORDERING CLINICIAN: Dev Villafana FINDINGS: The lungs are clear without pleural effusion. Normal heart size, mediastinum, isidoro, and pulmonary vasculature. IMPRESSION: No active disease in the chest. Normal [facility] COMP META PANELon 05-30-2021 Albumin [Mass/Vol] 3.6 g/dL Normal 3.4-5.0 [facility] Comment on above: Performed By: #### L 500.30121, L500.31663 #### Test performed at: [address] [address] ALK PHOS TOTAL 88 U/L Normal 45-117 [facility] Comment on above: Performed By: #### L 500.24721, L500.36522 #### Test performed at: [address] [address] ALT [Catalytic activity/Vol] 13 U/L Normal 13-61 [facility] Comment on above: Performed By: #### L 500.09420, L500.56829 #### Test performed at: [address] [address] AST [Catalytic activity/Vol] 20 U/L Normal 15-37 [facility] Comment on above: Performed By: #### L 500.39335, L500.56648 #### Test performed at: [address] [address] BILI TOTAL 0.3 mg/dL Normal 0.2-1.0 [facility] Comment on above: Performed By: #### L 500.15587, L500.96804 #### Test performed at: [address] [address] Calcium [Mass/Vol] 9.1 mg/dL Normal 8.5-10.1 [facility] Comment on above: Performed By: #### L 500.78924, L500.89405 #### Test performed at: [address] [address] Chloride [Moles/Vol] 107 mmol/L Normal 98-107 [facility] Comment on above: Performed By: #### L 500.17675, L500.31616 #### Test performed at: [address] [address] CO2 [Moles/Vol] 29 mmol/L Normal 21-32 [facility] Comment on above: Performed By: #### L 500.17615, L500.44064 #### Test performed at: [address] [address] Creatinine [Mass/Vol] 0.553 mg/dL Normal 0.550-1.020 [facility] Comment on above: Performed By: #### L 500.06555, L500.93610 #### Test performed at: [address] [address] Glucose [Mass/Vol] 100 mg/dL High 70-99 [facility] Comment on above: Result Comment: Fast ing GLUCOSE reference range has been updated per (ADA) [place] [employer]'s recommendation. 11/18/2018 Performed By: #### L 500.76267, L500.72378 #### Test performed at: [address] [address] Potassium [Moles/Vol] 4.4 mmol/L Normal 3.5-5.1 [facility] Comment on above: Performed By: #### L 500.85011, L500.11900 #### Test performed at: [address] [address] Protein [Mass/Vol] 7.4 g/dL Normal 6.4-8.2 [facility] Comment on above: Performed By: #### L 500.09672, L500.29783 #### Test performed at: [address] [address] Sodium [Moles/Vol] 139 mmol/L Normal 136-145 [facility] Comment on above: Performed By: #### L 500.16146, L500.11747 #### Test performed at: [address] [address] Urea nitrogen [Mass/Vol] 9 mg/dL Normal 7-18 [facility] Comment on above: Performed By: #### L 500.09965, L500.53464 #### Test performed at: [address] [address] CONSULTATION REPORTon 2020 CONSULTATION REPORT NAME: IVONNE CESPEDES MR#: [id number] SKIP TRACER: Tommie Mcwilliams MD DATE OF CONSULTATION: 05/30/2021 CONSULTATION HISTORY OF PRESENT ILLNESS: Ms. Cespedes is a 66-year-old lady and I have been consulted by Dr. Villafana for preop clearance before undergoing the right-sided L5-S1 diskectomy. She has had a laminectomy in that area done a few months ago, but still having a lot of pain and they are going for the neck surgery. The pain is radiating to the right leg. She has no major past history. She has a 37-hagc-njpt smoking, and no fevers or chills. No shortness of breath, nausea, vomiting, diarrhea, constipation, blood in the stools, or black stools. PAST HISTORY: Significant for KERON and possible COPD. MEDICATION LIST: Includes Zoloft 50 mg daily. ALLERGIES: To Wellbutrin and Zyban. SOCIAL HISTORY: She is a 1 pack per day smoker for 30+ years. No major use of alcohol or drugs. PREVIOUS SURGICAL HISTORY: Includes a back surgery done 4-5 months ago. I think it is a laminectomy. PHYSICAL EXAMINATION: VITAL SIGNS: She is 5 feet tall, 115 pounds. 97, 80, 16, 110/70, and pulse ox is 98% on room air. HEENT: Atraumatic head. Pupils are equal, reactive. Oral mucosa is normal. NECK: Supple. No thyromegaly. No carotid bruit. LUNGS: Clear. HEART: S1, S2 present. Regular rate and rhythm. Distant heart sounds. ABDOMEN: Soft, nontender. Bowel sounds are present. NEUROLOGIC: She is awake, alert, and oriented x3. Cranial nerves, motor, sensory, and reflexes are normal. EXTREMITIES: She has pain in the L5-S1 area, radiating to the right leg more. No edema noted. Good distal pulses are present. LABORATORY DATA: EKG shows normal sinus rhythm, no acute ST-T changes. IMPRESSION: 1. Preop clearance for L5-S1 decompressive diskectomy. 2. Generalized anxiety disorder. 3. Possible chronic obstructive pulmonary disease. [facility] PT NAME: IVONNE CESPEDES MR#: [id number] [address] [place] [address] ACCT: [id number] : 53 CONSULTATION PLAN: EKG is within acceptable limits. I am going to do a chest x-ray, CBC, CMP, and a PT/INR. I told her to try and see if she can stop smoking. It will help with wound healing also, and pending the labs, she is cleared for anesthesia with acceptable risk. I told her not to take medications like aspirin, Aleve, ibuprofen, or nonsteroidals. Thank you for the courtesy of this consultation. TOMMIE MCWILLIAMS MD MS/MODL/[id number] E/S: Tommie Mcwilliams MD 05/31/21 1510 Electronically Signed [facility] PT NAME: IVONNE CESPEDES MR#: [id number] [address] [place] [address] ACCT: [id number] : 53 CONSULTATION Normal [facility] CORONAVIRUSon 05-30-2021 SARS-CoV-2 (COVID-19) RNA SARANYA+probe Ql (Unsp spec) Methodology: PCR Negative results do not preclude SARS-CoV-2 infection and should not be used as the sole basis for patient management decisions. Negative results must be combined with clinical observations, patient history, and epidemiological information. False-negative results may occur if the viruses are present at a level that is below the analytical sensitivity of the assay or if the virus has genomic mutations, insertions, deletions, or rearrangements or if performed very early in the course of illness. Results may be affected by the quality of the sample collected. [employer] COVID-19 Direct is only for use under the Food and Drug Administration's Emergency Use Authorization. The [employer]plex[employer] COVID-19 Direct Letter of Authorization, along with the authorized Fact Sheet for Healthcare Providers, the authorized Fact Sheet for Patients, and authorized labeling are available on the FDA website: https://www.fda.gov /MedicalDevices/Saf ety/ EmergencySituations /vdg480992.htm COVID-19 Negative for COVID-19 (SARS-CoV-2 RNA) Normal [facility] Comment on above: Order Comment: CBN: YES [place]: MAIN COVID Testing: PRE-OP/PROCEDURE SCREEN Comment: 06/02 AGE at Spec SHUN 66 Report age at specimen SHUN? Y First test: UNKNOWN Employed in Healthcare: NO Symptomatic as defined by CDC: NO Hospitalized for COVID-19? NO ICU: NO Resident in a Congregated Care Setting: NO Order Date: 05/30/21 : Not Performed By: #### M [id number] #### Test performed at: [place] [address] GFR ESTIMATEon 05-30-2021 IF AMER > 60 Normal > 60 [facility] Comment on above: Result Comment: eGFR (Estimated GFR) Units of measure:mL/min/1.73 meters sq. *CALCULATION REVISED 06/14/2015;IDMS-traceable MDRD equation eGFR is derived from the reexpressed MDRD Study equation using the following parameters: serum creatinine, age, gender and race. An eGFR<60 mL/min/1.73m2 for >3 months is consistent with chronic kidney disease. Refer to KDOQI guidelines for clinical interpretation. Performed By: #### L [id number], L500.78644 #### Test performed at: [place] [address] IF non-AFR AMER > 60 Normal > 60 [facility] Comment on above: Performed By: #### L 500.28159, L500.86608 #### Test performed at: [place] [address] PROTIMEon 05-30-2021 INR Coag (PPP) [Relative time] 0.96 {INR} Normal 0.00-1.20 [facility] Comment on above: Order Comment: List patient's anticoagulants for PT: NONE SPECIFIED Result Comment: Rc mmended therapeutic range is an INR of 2.0-3.0 except for prevention of recurrent acute CA and mechanical prosthetic heart valve where an INR of 2.5-3.5 is recommended. Performed By: #### L [id number] #### Test performed at: [place] [address] PT SEC 10.3 seconds Normal 9.0-12.5 [facility] Comment on above: Order Comment: List patient's anticoagulants for PT: NONE SPECIFIED Performed By: #### L [id number] #### Test performed at: [place] [address] LUMB SP COMP W FLEX/EXT 6 VW Son 2021 LUMB SP COMP W FLEX/EXT 6 VWS STUDY: LUMB SP COMP W FLEX/EXT 6 VWS ; 2021 9:55 am INDICATION: PAIN. COMPARISON: No available comparisons. ACCESSION NUMBER(S): [id number] ORDERING CLINICIAN: Dev Villafana TECHNIQUE: 6 views of the lumbar spine. FINDINGS: No acute fracture or dislocation. The vertebral alignment is normal. The vertebral body heights are maintained. Moderate decrease in the intervertebral disc space at L4-L5 and L5-S1 levels. Moderate facet arthropathy at L4-L5 and L5-S1 levels. No evidence of instability. Cholecystectomy surgical clips in the right upper quadrant. IMPRESSION: Moderate degenerative at L4-L5 and L5-S1 level. No evidence of instability. Normal [facility] Vital Signs Date Time Vital Sign Value Performing Clinician Facility 11-07-2023 14:10-0400 Body temperature 97.11 [degF] Ma [employer] Work Phone: [facility] 11-07-2023 14:10-0400 Diastolic blood pressure 90 mm[Hg] Ma Sand Work Phone: [facility] 11-07-2023 14:10-0400 Heart rate 79 /min Ma Sand Work Phone: [facility] 11-07-2023 14:10-0400 Respiratory rate 18 /min Ma Sand Work Phone: [facility] 11-07-2023 14:10-0400 SaO2% (BldA) [Mass fraction] 97 % Ma Sand Work Phone: [facility] 11-07-2023 14:10-0400 Systolic blood pressure 119 mm[Hg] Ma Sand Work Phone: [facility] 10-11-2023 13:06-0500 Blood Pressure Location Rosa Shearer [facility] 10-11-2023 13:06-0500 Body temperature 96.98 [degF] Rosa Shearer [facility] 10-11-2023 13:06-0500 Diastolic blood pressure 87 mm[Hg] Rosa Shearer [facility] 10-11-2023 13:06-0500 Heart rate 79 /min Rosa Shearer [facility] 10-11-2023 13:06-0500 Systolic blood pressure 132 mm[Hg] Rosa Shearer [facility] 10-10-2023 13:47-0500 Body height 152.4 cm Ma Sand Work Phone: [facility] 10-10-2023 13:47-0500 Body temperature 97.7 [degF] Ma Sand Work Phone: [facility] 10-10-2023 13:47-0500 Body weight 53.98 kg Ma Sand Work Phone: [facility] 10-10-2023 13:47-0500 Diastolic blood pressure 88 mm[Hg] Ma Sand Work Phone: [facility] 10-10-2023 13:47-0500 Heart rate 89 /min Ma Sand Work Phone: [facility] 10-10-2023 13:47-0500 Respiratory rate 16 /min Ma Sand Work Phone: [facility] 10-10-2023 13:47-0500 SaO2% (BldA) [Mass fraction] 98 % Ma Sand Work Phone: [facility] 10-10-2023 13:47-0500 Systolic blood pressure 129 mm[Hg] Ma Sand Work Phone: [facility] 07-31-2023 14:20-0500 Diastolic blood pressure 46 mm[Hg] Ma Sand Work Phone: [facility] 07-31-2023 14:20-0500 Heart rate 161 /min Ma Sand Work Phone: [facility] 07-31-2023 14:20-0500 Systolic blood pressure 78 mm[Hg] Ma Sand Work Phone: [facility] 07-31-2023 14:00-0500 Body temperature 97.11 [degF] Ma Sand Work Phone: [facility] 07-31-2023 14:00-0500 Respiratory rate 18 /min Ma Sand Work Phone: [facility] 07-31-2023 14:00-0500 SaO2% (BldA) [Mass fraction] 98 % Ma Sand Work Phone: [facility] 07-26-2023 13:36-0500 Blood Pressure Location Rosa Shearer [facility] 07-26-2023 13:36-0500 Body temperature 97.88 [degF] Rosa Shearer [facility] 07-26-2023 13:36-0500 Diastolic blood pressure 88 mm[Hg] Rosa Shearer [facility] 07-26-2023 13:36-0500 Heart rate 74 /min Rosa Shearer [facility] 07-26-2023 13:36-0500 Systolic blood pressure 130 mm[Hg] Rosa Shearer [facility] 07-03-2023 13:57-0500 Body height 152.4 cm Ma Sand Work Phone: [facility] 07-03-2023 13:57-0500 Body temperature 97.9 [degF] Ma Sand Work Phone: [facility] 07-03-2023 13:57-0500 Body weight 53.98 kg Ma Sand Work Phone: [facility] 07-03-2023 13:57-0500 Diastolic blood pressure 90 mm[Hg] Ma Sand Work Phone: [facility] 07-03-2023 13:57-0500 Heart rate 75 /min Ma Sand Work Phone: [facility] 07-03-2023 13:57-0500 Respiratory rate 16 /min Ma Sand Work Phone: [facility] 07-03-2023 13:57-0500 SaO2% (BldA) [Mass fraction] 98 % Ma Sand Work Phone: [facility] 07-03-2023 13:57-0500 Systolic blood pressure 134 mm[Hg] Ma Sand Work Phone: [facility] 06-26-2023 12:45-0400 Diastolic blood pressure 82 mm[Hg] Rosa Olu [facility] 06-26-2023 12:45-0400 Mean blood pressure 101 mm[Hg] Rosa Olu [facility] 06-26-2023 12:45-0400 Systolic blood pressure 138 mm[Hg] Rosa Olu [facility] 06-26-2023 12:36-0400 Blood Pressure Location Rosa Olu [facility] 06-26-2023 12:36-0400 Body temperature 97.7 [degF] Rosa Olu [facility] 06-26-2023 12:36-0400 Diastolic blood pressure 87 mm[Hg] Rosa Olu [facility] 06-26-2023 12:36-0400 Heart rate 70 /min Rosa Olu [facility] 06-26-2023 12:36-0400 Systolic blood pressure 145 mm[Hg] Rosa Olu [facility] 06-05-2023 14:25-0400 Body height 152.4 cm Maikel Lunsford MD Work Phone: [facility] 06-05-2023 14:25-0400 Body temperature 97 [degF] Maikel Lunsford MD Work Phone: [facility] 06-05-2023 14:25-0400 Body weight 53.34 kg Maikel Lunsford MD Work Phone: [facility] 06-05-2023 14:25-0400 Diastolic blood pressure 70 mm[Hg] Maikel Lunsford MD Work Phone: [facility] 06-05-2023 14:25-0400 Heart rate 78 /min Maikel Lunsford MD Work Phone: [facility] 06-05-2023 14:25-0400 Respiratory rate 16 /min Maikel Lunsford MD Work Phone: [facility] 06-05-2023 14:25-0400 SaO2% (BldA) [Mass fraction] 97 % Maikel Lunsford MD Work Phone: [facility] 06-05-2023 14:25-0400 Systolic blood pressure 125 mm[Hg] Maikel Lunsford MD Work Phone: [facility] 04-05-2023 10:29-0400 Body temperature 97.7 [degF] Ma Sand Work Phone: [facility] 04-05-2023 10:29-0400 Diastolic blood pressure 81 mm[Hg] Ma Sand Work Phone: [facility] 04-05-2023 10:29-0400 Heart rate 79 /min Ma Sand Work Phone: [facility] 04-05-2023 10:29-0400 Respiratory rate 16 /min Ma Sand Work Phone: [facility] 04-05-2023 10:29-0400 SaO2% (BldA) [Mass fraction] 99 % Ma Sand Work Phone: [facility] 04-05-2023 10:29-0400 Systolic blood pressure 124 mm[Hg] Ma Sand Work Phone: [facility] 03-29-2023 14:21-0400 Body temperature 97.81 [degF] Ma Sand Work Phone: [facility] 03-29-2023 14:21-0400 Body weight 52.89 kg Ma Sand Work Phone: [facility] 03-29-2023 14:21-0400 Diastolic blood pressure 72 mm[Hg] Ma Sand Work Phone: [facility] 03-29-2023 14:21-0400 Heart rate 88 /min Ma Sand Work Phone: [facility] 03-29-2023 14:21-0400 Respiratory rate 16 /min Ma Sand Work Phone: [facility] 03-29-2023 14:21-0400 SaO2% (BldA) [Mass fraction] 94 % Ma Sand Work Phone: [facility] 03-29-2023 14:21-0400 Systolic blood pressure 105 mm[Hg] Ma Sand Work Phone: [facility] 03-26-2023 12:45-0400 Blood Pressure Location Rosa Olu [facility] 03-26-2023 12:45-0400 Body temperature 96.98 [degF] Rosa Herediametz [facility] 03-26-2023 12:45-0400 Diastolic blood pressure 74 mm[Hg] Rosa Herediametz [facility] 03-26-2023 12:45-0400 Heart rate 74 /min Rosa Herediametz [facility] 03-26-2023 12:45-0400 Systolic blood pressure 110 mm[Hg] Rosa [facility] 03-22-2023 14:31-0400 Body temperature 97.5 [degF] Ma Sand Work Phone: [facility] 03-22-2023 14:31-0400 Diastolic blood pressure 70 mm[Hg] Ma Sand Work Phone: [facility] 03-22-2023 14:31-0400 Heart rate 82 /min Ma Sand Work Phone: [facility] 03-22-2023 14:31-0400 Respiratory rate 16 /min Ma Sand Work Phone: [facility] 03-22-2023 14:31-0400 SaO2% (BldA) [Mass fraction] 95 % Ma Sand Work Phone: [facility] 03-22-2023 14:31-0400 Systolic blood pressure 94 mm[Hg] Ma Sand Work Phone: [facility] 03-13-2023 11:13-0400 Body height 152.4 cm Maikel Lunsford MD Work Phone: [facility] 03-13-2023 11:13-0400 Body temperature 97.39 [degF] Maikel Lunsford MD Work Phone: [facility] 03-13-2023 11:13-0400 Body weight 53.8 kg Maikel Lunsford MD Work Phone: [facility] 03-13-2023 11:13-0400 Diastolic blood pressure 88 mm[Hg] Maikel Lunsford MD Work Phone: [facility] 03-13-2023 11:13-0400 Heart rate 73 /min Maikel Lunsford MD Work Phone: [facility] 03-13-2023 11:13-0400 Respiratory rate 16 /min Maikel Lunsford MD Work Phone: [facility] 03-13-2023 11:13-0400 SaO2% (BldA) [Mass fraction] 98 % Maikel Lnusford MD Work Phone: [facility] 03-13-2023 11:13-0400 Systolic blood pressure 145 mm[Hg] Maikel Lunsford MD Work Phone: [facility] 02-22-2023 12:14-0400 Blood Pressure Location Rosa Shearer [facility] 02-22-2023 12:14-0400 Body temperature 96.8 [degF] Rosa Shearer [facility] 02-22-2023 12:14-0400 Diastolic blood pressure 82 mm[Hg] Rosa Shearer [facility] 02-22-2023 12:14-0400 Heart rate 75 /min Rosa Shearer [facility] 02-22-2023 12:14-0400 Systolic blood pressure 120 mm[Hg] Rosa Shearer [facility] 01-25-2023 11:40-0400 Body height 152.4 cm Yvonne Mcghee Other [employer] Other 01-25-2023 11:40-0400 Body mass index (BMI) [Ratio] 23.04 kg/m2 Yvonne Mcghee Other [employer] Other 01-25-2023 11:40-0400 Body weight 53.52 kg Yvonne Mcghee Other [employer] Other 01-25-2023 11:40-0400 Diastolic blood pressure 82 mm[Hg] Yvonne Mcghee Other [employer] Other 01-25-2023 11:40-0400 Respiratory rate 18 /min Yvonne Mcghee Other [employer] Other 01-25-2023 11:40-0400 SaO2% (BldA) [Mass fraction] 98 % Yvonne Mcghee Other [facility] [employer] Other 01-25-2023 11:40-0400 Systolic blood pressure 129 mm[Hg] Yvonne Mcghee Other [facility] [employer] Other 11-22-2022 12:59-0400 Blood Pressure Location Rosa Shearer [facility] 11-22-2022 12:59-0400 Body temperature 97.52 [degF] Rosa Herediametz [facility] 11-22-2022 12:59-0400 Diastolic blood pressure 84 mm[Hg] Rosa Herediametz [facility] 11-22-2022 12:59-0400 Heart rate 72 /min Rosa Herediametz [facility] 11-22-2022 12:59-0400 Systolic blood pressure 125 mm[Hg] Rosa Herediametz [facility] 10-10-2022 10:42-0500 Blood Pressure Location Chu SALAM [facility] 10-10-2022 10:42-0500 Diastolic blood pressure 87 mm[Hg] Chu SALAM [facility] 10-10-2022 10:42-0500 Heart rate 74 /min Chu SALAM [facility] 10-10-2022 10:42-0500 Respiratory rate 16 /min Chu SALAM [facility] 10-10-2022 10:42-0500 SaO2% (BldA) [Mass fraction] 97 % Chu SALAM [facility] 10-10-2022 10:42-0500 Systolic blood pressure 131 mm[Hg] Chu SALAM [facility] 06-19-2022 12:52-0400 Blood Pressure Location Rosajessica HerediaOlu [facility] 06-19-2022 12:52-0400 Body temperature 97.34 [degF] Rosa Herediametz [facility] 06-19-2022 12:52-0400 Diastolic blood pressure 83 mm[Hg] Rosa Herediametz [facility] 06-19-2022 12:52-0400 Heart rate 86 /min Rosa Herediametz [facility] 06-19-2022 12:52-0400 Systolic blood pressure 122 mm[Hg] Rosa Herediametz [facility] 04-17-2022 12:21-0400 Blood Pressure Location Chu SALAM [facility] 04-17-2022 12:21-0400 Diastolic blood pressure 86 mm[Hg] Cuh SALAM [facility] 04-17-2022 12:21-0400 Heart rate 62 /min Chu SALAM [facility] 04-17-2022 12:21-0400 Respiratory rate 16 /min Chu SALAM [facility] 04-17-2022 12:21-0400 Systolic blood pressure 128 mm[Hg] Chu SALAM [facility] 01-25-2022 13:42-0400 Diastolic blood pressure 91 mm[Hg] Chu SALAM [facility] 01-25-2022 13:42-0400 Heart rate 81 /min Chu SALAM [facility] 01-25-2022 13:42-0400 Systolic blood pressure 153 mm[Hg] Chu SALAM [facility] Encounters Encounter Date Encounter Type Care Provider Facility Start: 03-27-2024 ambulatory Rosa Shearer [facility] ty:[facility] Start: 11-07-2023 End: 11-07-2023 ambulatory [facility] Facility:[facility] Start: 11-07-2023 End: 11-07-2023 Nursing evaluation of patient and report Rafa Kennedy Work Phone: Hematology/Oncology Comment on above: Anemia, unspecified type (Primary Dx); 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 deficiency Start: 10-11-2023 End: 10-12-2023 ambulatory Rosa Shearer Facility:[facility] Start: 10-11-2023 End: 10-11-2023 Patient encounter procedure Rosa Shearer [facility] Start: 10-10-2023 End: 10-10-2023 ambulatory [facility] Facility:[facility] Start: 10-10-2023 End: 10-10-2023 Nursing evaluation of patient and report Rafa Kennedy Work Phone: Hematology/Oncology Comment on above: Anemia, unspecified type (Primary Dx); 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 deficiency Start: 09-11-2023 End: 09-11-2023 ambulatory MAIKEL LUNSFORD Facility:[facility] Start: 09-05-2023 End: 09-05-2023 ambulatory NURYS BOGGS Not Available Start: 08-05-2023 End: 08-05-2023 ambulatory HONORIO ROJAS Not Available Start: 07-31-2023 End: 07-31-2023 Emergency department patient visit Nurys Boggs Facility:[facility] Start: 07-31-2023 End: 07-31-2023 Nursing evaluation of patient and report Ma Nurse Ervin Kennedy Work Phone: Hematology/Oncology Comment on above: Anemia, unspecified type (Primary Dx); 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 deficiency; Tachycardia Start: 07-31-2023 Telephone encounter Macarena Figueroa Hematology/Oncology Comment on above: Syncope Start: 07-31-2023 End: 08-01-2023 ambulatory Rosa Shearer Facility[facility] Start: 07-31-2023 End: 07-31-2023 Lab Drop off [facility] Santos [facility] Start: 07-26-2023 End: 07-27-2023 ambulatory Rosa Shearer Facility:[facility] Start: 07-26-2023 End: 07-26-2023 Patient encounter procedure [facility] Santos Shearer [facility] Start: 07-10-2023 End: 07-10-2023 ambulatory HONORIO ROJAS Not Available Start: 07-03-2023 End: 07-03-[address] Work Phone: [facility] Start: 07-03-2023 End: 07-03-2023 Nutrition therapy Jyoti Shelton RD Work Phone: Nutrition Therapy Comment on above: Nutrition Assessment Start: 07-03-2023 End: 07-03-2023 Nursing evaluation of patient and report Rafa Kennedy Work Phone: Hematology/Oncology Comment on above: Anemia, unspecified type (Primary Dx); 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 deficiency Start: 06-26-2023 End: 06-27-2023 ambulatory Rosa Shearer Facility:[facility] Start: 06-26-2023 End: 06-26-2023 Patient encounter procedure Rosa A Olu [facility] Start: 06-05-2023 End: 06-05-2023 [facility] Start: 06-05-2023 End: 06-05-2023 [facility] Start: 06-05-2023 End: 06-05-2023 Nursing evaluation of patient and report Rafa Kennedy Work Phone: Hematology/Oncology Comment on above: Anemia, unspecified type (Primary Dx); 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 deficiency Start: 06-05-2023 End: 06-05-2023 Office outpatient visit 15 minutes Maikel Lunsford MD Work Phone: Hematology/Oncology Comment on above: 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 deficiency (Primary Dx); Anemia, unspecified type; Pancreatic insufficiency Start: 04-05-2023 End: 04-05-2023 ambulatory [facility] Facility:[facility] Start: 04-05-2023 End: 04-05-2023 Nursing evaluation of patient and report Rafa Kennedy Work Phone: Hematology/Oncology Comment on above: Anemia, unspecified type (Primary Dx); 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 deficiency Start: 04-01-2023 Telephone encounter [facility]ikel [facility]in [facility]: [facility] To [facility] Start: 03-29-2023 End: 03-29-2023 ambulatory R[facility]AY [facility] Facility:[facility] Start: 03-29-2023 End: 03-29-2023 Nursing evaluation of patient and report Rafa Kennedy Work Phone: Hematology/Oncology Comment on above: Anemia, unspecified type (Primary Dx); 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 deficiency Start: 03-26-2023 End: 03-27-2023 ambulatory Rosa Shearer Facility:[facility] Start: 03-26-2023 End: 03-26-2023 Patient encounter procedure Rosa Shearer [facility] Start: 03-22-2023 End: 03-22-2023 ambulatory [facility] Facility:[facility] Start: 03-22-2023 End: 03-22-2023 Nursing evaluation of patient and report Rafa Kennedy Work Phone: Hematology/Oncology Comment on above: Anemia, unspecified type (Primary Dx); 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 deficiency Start: 03-13-2023 End: 03-13-2023 ambulatory [facility] Facility:[facility] Start: 03-13-2023 End: 03-13-2023 ambulatory MAIKEL LUNSFORD Facility:[facility] Start: 03-13-2023 End: 03-13-2023 Nursing evaluation of patient and report Rafa Kennedy Work Phone: Hematology/Oncology Comment on above: Anemia, unspecified type (Primary Dx); 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 deficiency Start: 03-13-2023 End: 03-13-2023 Office outpatient new 45 minutes Maikel Lunsford MD Work Phone: Hematology/Oncology Comment on above: Anemia, unspecified type (Primary Dx); 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 deficiency Start: 03-07-2023 End: 03-07-2023 ambulatory Rosa Shearer Facility:[facility] Start: 03-07-2023 End: 03-07-2023 Patient encounter procedure Rosa Shearer [facility] Start: 02-22-2023 End: 02-23-2023 ambulatory Rosa Shearer [facility] Start: 02-22-2023 End: 02-22-2023 Patient encounter procedure Rosa Santos Olu [facility] Start: 02-20-2023 End: 02-21-2023 ambulatory Rimma Roman Facility:[facility] Start: 02-13-2023 End: 02-14-2023 ambulatory Rosa Shearer Facility:[facility] Start: 02-13-2023 End: 02-13-2023 Patient encounter procedure Rosa Shearer [facility] Start: 01-25-2023 End: 01-25-2023 ambulatory Yvonne Mcghee Other [employer] Other Start: 01-25-2023 Office outpatient vi sit [address] [facility] Start: 11-30-2022 End: 12-01-[address] HONORIO ROJAS Facility: Start: 11-22-2022 End: 11-23-2022 ambulatory Rosa Shearer [facility] Start: 11-22-2022 End: 11-22-2022 Patient encounter procedure Rosa Shearer [facility] Start: 11-01-2022 End: 11-02-2022 ambulatory Rosa Shearer Facility:[facility] Start: 11-01-2022 End: 11-02-2022 ambulatory Rosa Shearer [facility] Start: 11-01-2022 End: 11-01-2022 Patient encounter procedure Rosa Shearer [facility] Start: 10-16-2022 End: 10-17-2022 ambulatory Chu SALAM Facility[place] Start: 10-16-2022 End: 10-16-2022 Patient encounter procedure Chu SALAM [facility] Start: 10-10-2022 End: 10-10-2022 Patient encounter procedure Chu SALAM [facility] Start: 07-17-2022 End: 07-18-[address] HONORIO ROJAS Facility:[facility] Start: 07-14-2022 End: 07-15-[address] HONORIO ROJAS Facility: Start: 06-19-2022 End: 06-19-2022 Patient encounter procedure Rosa Shearer [facility] Start: 06-19-2022 End: 06-19-2022 Patient encounter procedure Rosa Shearer [facility] Start: 05-29-2022 End: 05-30-[address] NURYS BOGGS Facility: Start: 04-17-2022 End: 04-17-2022 Patient encounter procedure Chu SALAM [facility] Start: 04-11-2022 End: 04-11-2022 Patient encounter procedure Chu SALAM [facility] Start: 03-16-2022 End: 03-16-2022 Patient encounter procedure Chu SALAM [facility] Start: 02-01-2022 End: 02-02-2022 ambulatory CHU SALAM Facility: Start: 01-25-2022 End: 01-25-2022 Patient encounter procedure Kimberley HAMEED [facility] Procedures Date Procedure Procedure Detail Performing Clinician Start: 07-31-2023 Ecg routine ecg w/le ast 12 lds i&r only [facility] Provider Start: 05-16-2021 Colonoscopy Kimberley ESTEVEZ M Start: 11-25-2018 BREAST BIOPSY Kimberley ACKERMAN AM Start: 08-26-1984 Ligation of fallopian tube Kimberley HAMEED Biopsy of breast Kimberley HAMEED Colonoscopy Kimberley HAMEED Hysterectomy Kimberley HAMEED Laparoscopic cholecystectomy Kimberley HAMEED Plan of Treatment Date Care Activity Detail Author Start: 09-11-2026 Diabetes Screening Diabetes Screenin [facility] Start: 06-05-2026 Diabetes Screening Diabetes Screenin [facility] Start: 03-13-2026 DIABETES SCREEN DIABETES SCREEN [facility] Start: 03-13-2026 Diabetes Screening Diabetes Screenin g [facility] Start: 08-26-2023 Advance Directive Discussion Advance Directive Discussion [facility] Start: 08-26-2023 Depression Assessment Depression Ass essment [facility] Start: 06-05-2023 End: 03-13-2024 CBC W Auto Differential panel - Blood CBC + DIFF Lab Routine Anemia, unspecified type 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 deficiency Expected: 06/05/2023 (Approximate), Expires: 03/13/2024 [facility] Work Phone: Comment on above: Expected: 06/05/2023 (Approximate), Expires: 03/13/2024 Start: 06-05-2023 End: 03-13-2024 Cobalamin (Vitamin B12) [Mass/volume] in Serum or Plasma VITAMIN B12 BLOOD Lab Routine Anemia, unspecified type 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 deficiency Expected: 06/05/2023 (Approximate), Expires: 03/13/2024 [facility] Work Phone: Comment on above: Expected: 06/05/2023 (Approximate), Expires: 03/13/2024 Start: 06-05-2023 End: 03-13-2024 Comprehensive metabolic 2000 panel - Serum or Plasma COMP METABOLIC PANEL Lab Routine Anemia, unspecified type 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 deficiency Expected: 06/05/2023 (Approximate), Expires: 03/13/2024 [facility] Work Phone: Comment on above: Expected: 06/05/2023 (Approximate), Expires: 03/13/2024 Start: 06-05-2023 End: 03-13-2024 Ferritin [Mass/volume] in Serum or Plasma FERRITIN BLD Lab Routine Anemia, unspecified type 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 deficiency Expected: 06/05/2023 (Approximate), Expires: 03/13/2024 [facility] Work Phone: Comment on above: Expected: 06/05/2023 (Approximate), Expires: 03/13/2024 Start: 06-05-2023 End: 03-13-2024 Folate [Mass/volume] in Serum or Plasma FOLATE SERUM Lab Routine Anemia, unspecified type 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 deficiency Expected: 06/05/2023 (Approximate), Expires: 03/13/2024 [facility] Work Phone: Comment on above: Expected: 06/05/2023 (Approximate), Expires: 03/13/2024 Start: 06-05-2023 End: 03-13-2024 Iron and Iron binding capacity panel - Serum or Plasma IRON + TIBC Lab Routine Anemia, unspecified type 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 deficiency Expected: 06/05/2023 (Approximate), Expires: 03/13/2024 [facility] Work Phone: Comment on above: Expected: 06/05/2023 (Approximate), Expires: 03/13/2024 Start: 05-29-2023 Screening for malign ant neoplasm of breast Mammogram Screening [facility] Start: 04-26-2023 Covid-19 Vaccine ( season) Covid-19 Vaccine () [facility] Start: 04-26-2023 Influenza vaccination [facility] Start: 08-26-2022 ADVANCE DIRECTIVE DISCUSSION ADVANCE DIRECTIVE DISCUSSION [facility] Start: 08-26-2022 DEPRESSION ASSESSMENT DEPRESSION ASS ESSMENT [facility] Start: 2018 BONE DENSITY BONE DENSITY [facility] Start: 2018 Bone Density Screening Bone Density Screening [facility] Start: 2018 Screening for osteoporosis Bone Density Screening [facility] Start: 08-23-2015 SHINGRIX VACCINE (2 of 3) SHINGRIX VACCINE (2 of 3) [facility] Start: 2013 RSV Vaccine (1 - 1-d ose 60+ series) RSV Vaccine (1 - 1-dose 60+ series) [facility] Start: 1998 COLOGUARD (FIT-DNA) COLOGUARD (FIT-D NA) [facility] Start: 1998 Colonoscopy COLONOSCOPY [facility] Start: 1998 COLORECTAL CANCER SCREENING COLORECTAL CANCER SCREENING [facility] Start: [address] COLONOGRAPHY [facility] Start: 1998 FECAL OCCULT BLOOD FECAL OCCULT BLOO D [facility] Start: 1998 Lipid 1996 panel - S jay or Plasma Lipid Screening [facility] Start: 1998 Lipid panel Lipid Screening [facility] Start: 1998 LIPID SCREEN LIPID SCREEN [facility] Start: 1998 Screening for malign ant neoplasm of colon [facility] Start: 1998 SIGMOIDOSCOPY SIGMOIDOSCOPY [facility] Start: 1993 Mammography [facility] Start: 1993 Screening for malign ant neoplasm of breast Mammogram Screening [facility] Start: 1972 Urine microalbumin profile [facility] Start: 1971 HEPATITIS C SCREENING HEPATITIS C [facility] Start: 1971 Hepatitis C screening Hepatitis C [facility] Start: 1959 Pneumococcal Vaccine : 65+ (1 - PCV) Pneumococcal Vaccine: 65+ (1 - PCV) [facility] Start: 1959 Pneumococcal Vaccine : 65+ (1 of 2 - PCV) Pneumococcal Vaccine: 65+ (1 of 2 - PCV) [facility] Start: 1959 PNEUMOCOCCAL: 65+ (1 - PCV) PNEUMOCOCCAL: 65+ (1 - PCV) [facility] Start: 1953 COVID-19 VACCINE (#1) COVID-19 VACCI NE (#1) [facility] End: 06-04-2024 CBC W Auto Differential panel - Blood CBC + DIFF Lab Routine 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 deficiency Anemia, unspecified type Once per month for 12 Occurrences starting 06/05/2023 until 06/04/2024 [facility] Work Phone: Comment on above: Once per month for 1 2 Occurrences starting 06/05/2023 until 06/04/2024 End: 06-04-2024 Cobalamin (Vitamin B12) [Mass/volume] in Serum or Plasma VITAMIN B12 BLOOD Lab Routine 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 deficiency Anemia, unspecified type Once per month for 12 Occurrences starting 06/05/2023 until 06/04/2024 [facility] Work Phone: Comment on above: Once per month for 1 2 Occurrences starting 06/05/2023 until 06/04/2024 End: 06-04-2024 Comprehensive metabolic 2000 panel - Serum or Plasma COMP METABOLIC PANEL Lab Routine 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 deficiency Anemia, unspecified type Once per month for 12 Occurrences starting 06/05/2023 until 06/04/2024 [facility] Work Phone: Comment on above: Once per month for 1 2 Occurrences starting 06/05/2023 until 06/04/2024 ECG COMPLETE ECG COMPLETE ECG 07/31/2023 3:22 PM EST [facility] End: 06-04-2024 Ferritin [Mass/volume] in Serum or Plasma FERRITIN BLD Lab Routine 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 deficiency Anemia, unspecified type Once per month for 12 Occurrences starting 06/05/2023 until 06/04/2024 [facility] Work Phone: Comment on above: Once per month for 1 2 Occurrences starting 06/05/2023 until 06/04/2024 End: 06-04-2024 Folate [Mass/volume] in Serum or Plasma FOLATE SERUM Lab Routine 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 deficiency Anemia, unspecified type Once per month for 12 Occurrences starting 06/05/2023 until 06/04/2024 [facility] Work Phone: Comment on above: Once per month for 1 2 Occurrences starting 06/05/2023 until 06/04/2024 End: 06-04-2024 Iron and Iron binding capacity panel - Serum or Plasma IRON + TIBC Lab Routine 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 deficiency Anemia, unspecified type Once per month for 12 Occurrences starting 06/05/2023 until 06/04/2024 [facility] Work Phone: Comment on above: Once per month for 1 2 Occurrences starting 06/05/2023 until 06/04/2024 [facility] Immunizations Immunization Date Immunization Notes Care Provider Kian bourne 06-28-2015 zoster vaccine, live Kimberley Fonseca ALAM [facility] NEGATED: Highlighted row has not occurred!10-10-2023 influenza virus vaccine, unspecified formulation Rosajessica HerediaOlu [facility] NEGATED: Highlighted row has not occurred!07-25-2023 influenza virus vaccine, unspecified formulation Rosa Herediametz [facility] NEGATED: Highlighted row has not occurred!06-25-2023 influenza virus vaccine, unspecified formulation Rosajessica HerediaOlu [facility] NEGATED: Highlighted row has not occurred!11-22-2022 influenza virus vaccine, unspecified formulation Rosajessica HerediaOlu [facility] NEGATED: Highlighted row has not occurred!06-19-2022 influenza virus vaccine, unspecified formulation Rosajessica HerediaOlu [facility] NEGATED: Highlighted row has not occurred!04-17-2022 influenza virus vaccine, unspecified formulation Chu SALAM [facility] Payers Date Payer Category Payer Self-pay 2021 Unknown MMO MMO MEDICARE SUPPLEMENT [id number] 2021-Present [phone] [address] [place] [address] Indemnity [id number] 2018 Medicare MEDICARE MEDICAR E A AND B [id number] 2018-Present [phone] [address] [address] [place] [address] Medicare [id number] 1959 Medicare [id number] 1959 Unknown [id number] 1953 Unknown [id number] [id number]3 1953 Unknown [id number] 2.16.840.1.228976.3.579.2.593 1953 Unknown [id number] 2.16.840.1.314534.3.579.2.593 1953 Unknown [id number] 2.16.840.1.076330.3.579.2.593 1953 Unknown [id number] 2.16.840.1.507282.3.579.2.593 1953 Unknown [id number] 2.16.840.1.807849.3.579.2.1259 1953 Unknown [id number] 2.16.840.1.661562.3.579.2.1259 1953 Unknown [id number] 2.16.840.1.164010.3.579.2.1259 1953 Unknown [id number] 2.16.840.1.121002.3.579.2.727 1953 Unknown [id number] 2.16.840.1.793275.3.579.2.727 1953 Unknown [id number] 2.16.840.1.281083.3.579.2.727 1953 Unknown [id number] 2.16.840.1.979795.3.579.2.727 1953 Unknown [id number] 2.16.840.1.113862.3.579.2.72 1953 Unknown [id number] 2.16.840.1.872592.3.579.2.727 1953 Unknown [id number] 2.16.840.1.291013.3.579.2.727 1953 Unknown [id number] 2.16.840.1.652924.3.579.2.727 1953 Unknown [id number] 2.16.840.1.346992.3.579.2.727 1953 Unknown [id number] 2.16.840.1.835925.3.579.2.727 1953 Unknown [id number] 2.16.840.1.189243.3.579.2.727 1953 Unknown [id number] 2.16.840.1.575893.3.579.2.727 1953 Unknown [id number] 2.16.840.1.499557.3.579.2.727 1953 Unknown [id number] 2.16.840.1.849683.3.579.2.727 Unknown [id number] 2.16.840.1.655637.3.579.2.531 Social History Date Type Detail Facility Start: 01-25-2022 End: 10-11-2023 Heavy tobacco smoker (finding) [facility] Comment on above: has quit off and on during those 30 years has quit off and on during those 30 years Start: 06-11-2019 End: 03-13-2023 Female [facility] Tobacco smoking status Never [facility] Comment on above: has quit off and on during those 30 years Start: 03-13-2023 Tobacco smoking stat [facility] Smokes tobacco daily [facility] History of tobacco use Passive smoker [facility] Start: 03-13-2023 Tobacco use and exposure Smokeless tobacco non-user [facility] Start: 03-13-2023 Alcohol intake Ex-drinker (finding) [facility] Start: 06-11-2019 End: 03-13-2023 History of Social function [facility] Start: 03-13-2023 Tobacco [facility] Start: 11-07-2018 Alcohol Comment socially [facility] Start: 1955 Sex Assigned At Not on file [facility] Functional Status Date Assessment Result Facility 10-11-2023 Functional Status N/A [facility] 07-26-2023 Functional Status N/A [facility] 06-26-2023 Functional Status N/A [facility] 03-26-2023 Functional Status N/A [facility] 02-22-2023 Functional Status N/A [facility] 11-22-2022 Functional Status N/A [facility] 10-10-2022 Functional Status N/A [facility] 06-19-2022 Functional Status N/A [facility] 04-17-2022 Functional Status N/A [facility] Clinical Notes 12-01-2021 to 11-07-2023 Pepe Yadav - 11/07/2023 2:10 PM Oniel Hernandez Ma - 10/10/2023 1:47 PM ESTTelephone Encounter - Maikel Lunsford MD - 07/31/2023 7:36 PM Pepe Yang - 07/31/2023 2:25 PM EST Note Date & Type Note Facility 11-07-2023 Nurse Note Patient Identification confirmed: yes. Injection given and documented on OCT per provider order. Pepe Yadav documented in this encounter [facility] 10-11-2023 Hospital Discharg e instructions Patient Education 10/11/2023 13:10:47 Fatty Liver Disease Fatty Liver Disease The liver converts food into energy, removes toxic material from the blood, makes important proteins, and absorbs necessary vitamins from food. Fatty liver disease occurs when too much fat has built up in your liver cells. Fatty liver disease is also called hepatic steatosis. In many cases, fatty liver disease does not cause symptoms or problems. It is often diagnosed when tests are being done for other reasons. However, over time, fatty liver can cause inflammation that may lead to more serious liver problems, such as scarring of the liver (cirrhosis) and liver failure. Fatty liver is associated with insulin resistance, increased body fat, high blood pressure (hypertension), and high cholesterol. These are features of metabolic syndrome and increase your risk for stroke, diabetes, and heart disease. What are the causes? This condition may be caused by components of metabolic syndrome: Obesity. Insulin resistance. High cholesterol. Other causes: Alcohol abuse. Poor nutrition. Kinsman syndrome. . Certain drugs. Poisons. Some viral infections. What increases the risk? You are more likely to develop this condition if you: Abuse alcohol. Are overweight. Have diabetes. Have hepatitis. Have a high triglyceride level. Are . What are the signs or symptoms? Fatty liver disease often does not cause symptoms. If symptoms do develop, they can include: Fatigue and weakness. Weight loss. Confusion. Nausea, vomiting, or abdominal pain. Yellowing of your skin and the white parts of your eyes (jaundice). Itchy skin. How is this diagnosed? This condition may be diagnosed by: A physical exam and your medical history. Blood tests. Imaging tests, such as an ultrasound, CT scan, or MRI. A liver biopsy. A small sample of liver tissue is removed using a needle. The sample is then looked at under a microscope. How is this treated? Fatty liver disease is often caused by other health conditions. Treatment for fatty liver may involve medicines and lifestyle changes to manage conditions such as: Alcoholism. High cholesterol. Diabetes. Being overweight or obese. Follow these instructions at home: Do not drink alcohol. If you have trouble quitting, ask your health care provider how to safely quit with the help of medicine or a supervised program. This is important to keep your condition from getting worse. Eat a healthy diet as told by your health care provider. Ask your health care provider about working with a dietitian to develop an eating plan. Exercise regularly. This can help you lose weight and control your cholesterol and diabetes. Talk to your health care provider about an exercise plan and which activities are best for you. Take [id number] and prescription medicines only as told by your health care provider. Keep all follow-up visits. This is important. Contact a health care provider if: You have trouble controlling your: ?Blood sugar. This is especially important if you have diabetes. ?Cholesterol. ?Drinking of alcohol. Get help right away if: You have abdominal pain. You have jaundice. You have nausea and are vomiting. You vomit blood or material that looks like coffee grounds. You have stools that are black, tar-like, or bloody. Summary Fatty liver disease develops when too much fat builds up in the cells of your liver. Fatty liver disease often causes no symptoms or problems. However, over time, fatty liver can cause inflammation that may lead to more serious liver problems, such as scarring of the liver (cirrhosis). You are more likely to develop this condition if you abuse alcohol, are , are overweight, have diabetes, have hepatitis, or have high triglyceride or cholesterol levels. Contact your health care provider if you have trouble controlling your blood sugar, cholesterol, or drinking of alcohol. This information is not intended to replace advice given to you by your health care provider. Make sure you discuss any questions you have with your health care provider. Document Revised: 05/25/2021 Document Reviewed: 05/25/2021 [employer] Patient Education 2022 [employer]. Follow Up Care 07/26/2023 14:28:34 With:Rosa Shearer CNP Address: When:6 months [facility] 10-10-2023 Nurse Note Patient Identification confirmed: yes. Injection given and documented on OCT per provider order. Oniel Prescott Ma documented in this encounter [facility] 09-11-2023 Note HNO ID: [id number] Author: MAIKEL LUNSFORD MD Service: ? Author Type: Physician Type: Progress Notes Filed: 09/11/2023 20:29 Note Text: NAME: Ivonne Cespedes [facility] NO.: [id number] DATE OF SERVICE: September 11, 2023 (Martín) Some elements in this clinic note that are critical to medical decision making have been carefully reviewed and included from a prior clinic note dated: June 05, 2023 (Martín) Referring Provider: Rosa Shearer Additional Clinicians involved in Ivonne Cespedes's care: DIAGNOSIS: B12 deficiency History of right breast DCIS ASSESSMENT: 68 year old woman with DCIS diagnosed approximately 4 years ago in October 2018 status post lumpectomy and radiation but no endocrine therapy for chemoprevention. I will try to discuss this with her again at the next visit. However, it is unlikely to help her this far out from primary therapy. She is referred for persistent B12 deficiency and likely has pernicious anemia. Intrinsic factor antibodies were negative. Continue B12 replacement intramuscularly every month. PLAN: B12 shot today and then every 4 weeks Repeat labs every 12 weeks RTC in 24 weeks HPI: CASE HISTORY: Reverse Chronological Order 06/06/2023 - Mammogram: category 2 benign 02/13/2023 - B12 level 144 11/01/2022 - CBC 5.7 > 13.5/41.6 < 218 normal differential. March 2022 FibroScan F0-F1 no steatosis. 01/2022 - CT scan abdomen pelvis at [facility] hepatomegaly with hepatic steatosis. 06/2021 - CT abdomen pelvis right retrocrural lymph node. November 25, [address] 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 The estrogen receptor was positive at 10-20% with progesterone receptor negative DCIS Right Breast - [facility] 10/22/2018 - mammogram showing suspicious changes in the right breast. grouping of numerous pleomorphic calcifications within the posterior upper inner quadrant. Updated Visit, September 11, 2023: Ivonne returns today for a 12 week follow up. Her labs all look good today. She was hospitalized recently after her BP was low, she was told she has fatigue but her PCP reported the issue was her thyroid. She would like to try taking a magnesium supplement. Her dog recently. Updated Visit, June 05, 2023: Mammogram done in [place] yesterday Was told she has pancreatic insufficiency B12 levels remain low. Initial Visit, March 13, 2023: Ivonne Cespedes presents today Hematology and Oncology evaluation. 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 Additionally has a history of pancreatic insufficiency requiring Creon and fatty liver disease with IBS diarrhea. She has known vitamin B12 deficiency with levels less than 50 and was supposed to start vitamin B12 supplementation which I did do not know if she did. B12 level February 13, 2023 had improved to 144. She is referred for evaluation of B12 supplementation. REVIEW OF SYSTEMS Per HPI and otherwise negative by full review of organ systems. ECOG PERFORMANCE STATUS: 0 PHYSICAL EXAMINATION: Vitals: BP 136/82 Pulse 79 Temp (Src) 97.3 (Temporal) Resp 16 Ht 5' 0 (1.52m) Wt 119 lb 0.8 oz (54.0kg) SpO2 98% BMI 23.25 kg/(m2). Body surface area is 1.51 meters squared. Exam limited to gross visualization where appropriate. Gen.: This is an age-appropriate patient in no acute distress. Head: Appears atraumatic with no visible lesions. Eyes: Pupils equally round and reactive to light, extraocular muscles are intact. Neck: Supple. Respiratory: Appears to be respiring comfortably. Neurologic: Nonfocal to gross visualization. Alert and oriented ?3. Psychiatric: No evidence of inappropriate anxiety or depression. Skin: Visible areas of skin without rash, lesions, wounds or petechiae. Resolving shingles rash on right abdomen. Chaperoned Breast Exam September 11, 2023 (Red Olivares) : Right breast: scar 1 o'clock - well healed, no sign of recurrence, red mole on nipple. Left breast is normal. Rosa exam is negative bilaterally. ALLERGIES: ALLERGIES Allergen Reactions Bupropion Shortness of Breath Zyban [Bupropion Hc* Shortness of Breath MEDICATIONS: levothyroxine (SYNTHROID) 50 mcg tablet Take 50 mcg by mouth once daily. 75mcg 2 days a week enzymes,digestive (DIGESTIVE ENZYMES ORAL) Take by mouth. loperamide (IMODIUM) 2 mg (more content not included)... [facility] 07-31-2023 Miscellaneous Notes Thank you for documenting 1400: Pt arrives to clinic for Vitamin B12 injection. Pt reported feeling dizzy, lightheaded, and tired. Vitals obtained: BP 78/46 HR [address]%. Dr. Lunsford aware and Dr CABRERA called overhead. EKG ordered and obtained, 2L Oxygen applied. EKG interpreted by Dr. Cielo CHACON noted. Squad was called at 1405 and arrived at 1417. Pt remained calm and responsive. Pt asked to have sonRonny called and updated. Cesia Gilbert, [employer] work handled this. Vitals rechecked, manual BP 80/64 HR 151 SpO2 100% 2L NC. Pt dc'd via EMS. Macarena Urrutia RN documented in this encounter [facility] 07-31-2023 Nurse Note EKG performed as ordered. Electronically sent to [facility]. Placed paper copy in scan folder. Pepe Yadav Patient came in for a b-12. Patient blood pressure low. Repeated. Pulse high. Patient complaining of lightheadedness,dizzy, and fatigue. Got Dr. Maikel Lunsford. Did an EKG while someone called 911. Pepe Yadav documented in this encounter [facility] 07-26-2023 Hospital Discharg e instructions Patient Education 07/26/2023 13:36:32 High-Fiber Eating Plan High-Fiber Eating Plan Fiber, also called dietary fiber, is a type of carbohydrate. It is found foods such as fruits, vegetables, whole grains, and beans. A high-fiber diet can have many health benefits. Your health care provider may recommend a high-fiber diet to help: Prevent constipation. Fiber can make your bowel movements more regular. Lower your cholesterol. Relieve the following conditions: ?Inflammation of veins in the anus (hemorrhoids). ?Inflammation of specific areas of the digestive tract (uncomplicated diverticulosis). ?A problem of the large intestine, also called the colon, that sometimes causes pain and diarrhea (irritable bowel syndrome, or IBS). Prevent overeating as part of a weight-loss plan. Prevent heart disease, type 2 diabetes, and certain cancers. What are tips for following this plan? Reading food labels Check the nutrition facts label on food products for the amount of dietary fiber. Choose foods that have 5 grams of fiber or more per serving. The goals for recommended daily fiber intake include: ?Men (age 50 or younger): 34 38 g. ?Men (over age 50): 28 34 g. ?Women (age 50 or younger): 25 28 g. ?Women (over age 50): 22 25 g. Your daily fiber goal is g. Shopping Choose whole fruits and vegetables instead of processed forms, such as apple juice or applesauce. Choose a wide variety of high-fiber foods such as avocados, lentils, oats, and kidney beans. Read the nutrition facts label of the foods you choose. Be aware of foods with added fiber. These foods often have high sugar and sodium amounts per serving. Cooking Use whole-grain flour for baking and cooking. Cook with brown rice instead of white rice. Meal planning Start the day with a breakfast that is high in fiber, such as a cereal that contains 5 g of fiber or more per serving. Eat breads and cereals that are made with whole-grain flour instead of refined flour or white flour. Eat brown rice, bulgur wheat, or millet instead of white rice. Use beans in place of meat in soups, salads, and pasta dishes. Be sure that half of the grains you eat each day are whole grains. General information You can get the recommended daily intake of dietary fiber by: ?Eating a variety of fruits, vegetables, grains, nuts, and beans. ?Taking a fiber supplement if you are not able to take in enough fiber in your diet. It is better to get fiber through food than from a supplement. Gradually increase how much fiber you consume. If you increase your intake of dietary fiber too quickly, you may have bloating, cramping, or gas. Drink plenty of water to help you digest fiber. Choose high-fiber snacks, such as berries, raw vegetables, nuts, and popcorn. What foods should I eat? Fruits Berries. Pears. Apples. Oranges. Avocado. Prunes and raisins. Dried figs. Vegetables Sweet potatoes. Spinach. Kale. Artichokes. Cabbage. Broccoli. Cauliflower. Green peas. Carrots. Squash. Grains Whole-grain breads. Multigrain cereal. Oats and oatmeal. Brown rice. Barley. Bulgur wheat. Millet. Quinoa. Bran muffins. Popcorn. [place] wafer crackers. Meats and other proteins [place] beans, kidney beans, and foss beans. Soybeans. Split peas. Lentils. Nuts and seeds. Dairy Fiber-fortified yogurt. Beverages Fiber-fortified soy milk. Fiber-fortified orange juice. Other foods Fiber bars. The items listed above may not be a complete list of recommended foods and beverages. Contact a dietitian for more information. What foods should I avoid? Fruits Fruit juice. Cooked, strained fruit. Vegetables Fried potatoes. Canned vegetables. Well-cooked vegetables. Grains White bread. Pasta made with refined flour. White rice. Meats and other proteins Fatty cuts of meat. Fried chicken or fried fish. Dairy Milk. Yogurt. Cream cheese. Sour cream. Fats and oils Natural Steps. Beverages Soft drinks. Other foods Cakes and pastries. The items listed above may not be a complete list of foods and beverages to avoid. Talk with your dietitian about what choices are best for you. Summary Fiber is a type of carbohydrate. It is found in foods such as fruits, vegetables, whole grains, and beans. A high-fiber diet has many benefits. It can help to prevent constipation, lower blood cholesterol, aid weight loss, and reduce your risk of heart disease, diabetes, and certain cancers. Increase your intake of fiber gradually. Increasing fiber too quickly may cause cramping, bloating, and gas. Drink plenty of water while you increase the amount of fiber you consume. The best sources of fiber include whole fruits and vegetables, whole grains, nuts, seeds, and beans. This information is not intended to replace advice given to you by your health care provider. Make sure you discuss any questions you have with your health care provider. Document Revised: 12/15/2020 Document Reviewed: 12/15/2020 [employer] Patient Education 2022 [employer]. 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] Other Visit Diagnosis:Pancreatic insufficiency [K86.89] Order(s):CONSULT TO ONCOLOGY NUTRITION [[id number]] Order #: [id number]: 1 During your visit today, we recorded the following information about you: Allergies As of Date: 07/03/2023 Noted Allergy Reaction BUPROPION 12/22/2004 12 - Shortness of Breath ZYBAN (BUPROPION HCL (SMOKING DET*11/07/2018 12 - Shortness of Breath Date Reviewed: 07/03/2023 Reviewed by: Jyoti Shelton, RD - Fully Assessed Prescriptions as of 07/03/2023 - levothyroxine (SYNTHROID) 50 mcg tablet take 1 tablet by mouth every day in the morning on empty stomach - enzymes,digestive (DIGESTIVE ENZYMES ORAL) Take by mouth. - loperamide (IMODIUM) 2 mg cap(s) every other day. - sertraline (ZOLOFT) 50 mg tablet Take 50 mg by mouth once daily. - calcium carbonate (CALCIUM 500 ORAL) Take by mouth. - Cholecalciferol, Vitamin D3, (VITAMIN D) 1,000 unit cap Take 1,000 Units by mouth once daily. Disposition: Return if symptoms worsen or fail to improve. Follow-up and Disposition History for Encounter Date Provider Department Center 07/03/2023 [id number]-RJTVALXIN, JACQUE*NUTRSA TENA MALAVE Encounter Status:Closed by JYOTI SHELTON on 07/03/23 [facility] 07-03-2023 Note HNO ID: [id number] Author: Jyoti Shelton RD Service: ? Author Type: Registered Dietitian Type: Progress Notes Filed: 07/03/2023 2:57 PM Note Text: Oncology Nutrition Therapy Initial Assessment RECOMMENDED MALNUTRITION DIAGNOSIS: NO MALNUTRITION IDENTIFIED Nutrition Diagnosis: Behavioral-Environmental: Food and nutrition related knowledge deficit, related to, lack of prior exposure to information , as evidenced by verbalizes inaccurate information and verbalizes incomplete information Nutrition Intervention: -discussed signs and symptoms of fat malabsorption -reviewed importance of taking PERT correctly and as prescribed -recommended pt follow up with GI Nutrition Monitoring AND Evaluation: -PO Intake -Wt status -BM's -Biochemical Markers -Plan of care Patient's symptoms are: GI: abdominal pain, bloating, and diarrhea Pt with history of vitamin B12 deficiency and breast cancer. Pt states she requested to see dietitian due to abd pain, diarrhea, and not sure what to eat. Pt states she follows with GI in [place], [place]. Previous records available reviewed with pt showing she was diagnosed with EPI. Pt states she hasn't been taking Creon prescribed by GI due to being afraid of side effects as well as the cost. Educated pt regarding EPI and rationale for PERT. Discussed with pt if she is experiencing fat malabsorption due to EPI, she will require PERT as dietary changes alone is not sufficient to treat this condition. Highly recommended she follow up with GI and ask office to assist her with completing paperwork to determine if she is eligible for financial assistance. Pt verbalized understanding. Thank you for allowing me to participate in the care of this pt. Readiness to Learn: Cognitive ability: Alert and oriented Motivation to learn: Interested Family support: Unable to assess - Family not present Instruction provided to: Patient Patient learns best by: Individual Instruction Factors affecting learning: None Physical limitations affecting learning: None Educational materials provided: Pancreatic Enzymes Anthropometrics: Height: Last 1 Encounter Ht Readings: Date: Ht: 06/05/2023 152.4 cm (5') Current weight: Last 1 Encounter Wt Readings: Date: Wt: 06/05/2023 53.3 kg (117 lb 9.6 oz) Estimated body mass index is 22.97 kg/m? as calculated from the following: Height as of 06/05/23: 152.4 cm (5'). Weight as of 06/05/23: 53.3 kg (117 lb 9.6 oz). Resting Metabolic Rate: 979 Weight Change: n/a Dosing Weight: 53.3 kg Estimated kilocalorie needs: 8269-5692 kilocalories determined by 25-30 kcal/kg Estimated protein needs: 53-69 grams determined by 1.0-1.3 g/kg Dosing weight Estimated fluid needs: ~3823-4601 milliliters based on 1 mL per kcal (unless otherwise indicated) Nutrition Focused Physical Exam: Unable to perform exam due to potential for patient discomfort (physical/emotional), will re-attempt during reassessment. Potential Signs of Inflammation: no identifiable sources Allergies: Bupropion and Zyban [Bupropion Hcl (Smoking Deter)] Medications: Current Outpatient Medications Medication Sig Dispense Refill levothyroxine (SYNTHROID) 50 mcg tablet take 1 tablet by mouth every day in the morning on empty stomach enzymes,digestive (DIGESTIVE ENZYMES ORAL) Take by mouth. loperamide (IMODIUM) 2 mg cap(s) every other day. (Patient not taking: Reported on 03/13/2023) 2 sertraline (ZOLOFT) 50 mg tablet Take 50 mg by mouth once daily. calcium carbonate (CALCIUM 500 ORAL) Take by mouth. Cholecalciferol, Vitamin D3, (VITAMIN D) 1,000 unit cap Take 1,000 Units by mouth once daily. No current facility-administered medications for this visit. Facility-Administered Medications Ordered in Other Visits Medication Dose Route Frequency Provider Last Rate Last Admin cyanocobalamin 1,000 mcg injection 1,000 mcg INTRAMUSCULAR ONCE Maikel Lunsford MD Need for Follow up: prn Referred by: Martín HATFIELD Billing Type: Initial Assess/15 min 2 units Time Spent with Patient: 30 minutes Signed by: Jyoti Shelton MS, RDN, LD [facility] 07-03-2023 Note HNO ID: [id number] Author: Carri Walker Service: ? Author Type: ? Type: Progress Notes Filed: 07/03/2023 2:04 PM Note Text: Patient Identification confirmed: yes. Injection given and documented on OCT per provider order. Carri Walker [facility] 07-03-2023 History of Presen t illness Narrative Oncology Nutrition Therapy Initial Assessment RECOMMENDED MALNUTRITION DIAGNOSIS: NO MALNUTRITION IDENTIFIED Nutrition Diagnosis: Behavioral-Environmental: Food and nutrition related knowledge deficit, related to, lack of prior exposure to information , as evidenced by verbalizes inaccurate information and verbalizes incomplete information Nutrition Intervention: -discussed signs and symptoms of fat malabsorption -reviewed importance of taking PERT correctly and as prescribed -recommended pt follow up with GI Nutrition Monitoring & Evaluation: -PO Intake -Wt status -BM's -Biochemical Markers -Plan of care Patient's symptoms are: GI: abdominal pain, bloating, and diarrhea Pt with history of vitamin B12 deficiency and breast cancer. Pt states she requested to see dietitian due to abd pain, diarrhea, and not sure what to eat. Pt states she follows with GI in [place], [place]. Previous records available reviewed with pt showing she was diagnosed with EPI. Pt states she hasn't been taking Creon prescribed by GI due to being afraid of side effects as well as the cost. Educated pt regarding EPI and rationale for PERT. Discussed with pt if she is experiencing fat malabsorption due to EPI, she will require PERT as dietary changes alone is not sufficient to treat this condition. Highly recommended she follow up with GI and ask office to assist her with completing paperwork to determine if she is eligible for financial assistance. Pt verbalized understanding. Thank you for allowing me to participate in the care of this pt. Readiness to Learn: Cognitive ability: Alert and oriented Motivation to learn: Interested Family support: Unable to assess - Family not present Instruction provided to: Patient Patient learns best by: Individual Instruction Factors affecting learning: None Physical limitations affecting learning: None Educational materials provided: Pancreatic Enzymes Anthropometrics: Height: Last 1 Encounter Ht Readings: Date: Ht: 06/05/2023 152.4 cm (5') Current weight: Last 1 Encounter Wt Readings: Date: Wt: 06/05/2023 53.3 kg (117 lb 9.6 oz) Estimated body mass index is 22.97 kg/m as calculated from the following: Height as of 06/05/23: 152.4 cm (5'). Weight as of 06/05/23: 53.3 kg (117 lb 9.6 oz). Resting Metabolic Rate: 979 Weight Change: n/a Dosing Weight: 53.3 kg Estimated kilocalorie needs: 7696-5337 kilocalories determined by 25-30 kcal/kg Estimated protein needs: 53-69 grams determined by 1.0-1.3 g/kg Dosing weight Estimated fluid needs: ~5970-8118 milliliters based on 1 mL per kcal (unless otherwise indicated) Nutrition Focused Physical Exam: Unable to perform exam due to potential for patient discomfort (physical/emotional), will re-attempt during reassessment. Potential Signs of Inflammation: no identifiable sources Allergies: Bupropion and Zyban [Bupropion Hcl (Smoking Deter)] Medications: Current Outpatient Medications Medication Sig Dispense Refill levothyroxine (SYNTHROID) 50 mcg tablet take 1 tablet by mouth every day in the morning on empty stomach enzymes,digestive (DIGESTIVE ENZYMES ORAL) Take by mouth. loperamide (IMODIUM) 2 mg cap(s) every other day. (Patient not taking: Reported on 03/13/2023) 2 sertraline (ZOLOFT) 50 mg tablet Take 50 mg by mouth once daily. calcium carbonate (CALCIUM 500 ORAL) Take by mouth. Cholecalciferol, Vitamin D3, (VITAMIN D) 1,000 unit cap Take 1,000 Units by mouth once daily. No current facility-administered medications for this visit. Facility-Administered Medications Ordered in Other Visits Medication Dose Route Frequency Provider Last Rate Last Admin cyanocobalamin 1,000 mcg injection 1,000 mcg INTRAMUSCULAR ONCE Maikel Lunsford MD Need for Follow up: prn Referred by: Martín HATFIELD Billing Type: Initial Assess/15 min 2 units Time Spent with Patient: 30 minutes Signed by: Jyoti Shelton MS, RDN, LD documented in this encounter [facility] 07-03-2023 History of Presen t illness Narrative Patient Identification confirmed: yes. Injection given and documented on OCT per provider order. Carri Walker documented in this encounter [facility] 06-26-2023 Hospital Discharg e instructions Patient Education 06/26/2023 12:49:22 Colon Polyps Colon Polyps Colon polyps are tissue growths inside the colon, which is part of the large intestine. They are one of the types of polyps that can grow in the body. A polyp may be a round bump or a mushroom-shaped growth. You could have one polyp or more than one. Most colon polyps are noncancerous (benign). However, some colon polyps can become cancerous over time. Finding and removing the polyps early can help prevent this. What are the causes? The exact cause of colon polyps is not known. What increases the risk? The following factors may make you more likely to develop this condition: Having a family history of colorectal cancer or colon polyps. Being older than 45 years of age. Being younger than 45 years of age and having a significant family history of colorectal cancer or colon polyps or a genetic condition that puts you at higher risk of getting colon polyps. Having inflammatory bowel disease, such as ulcerative colitis or Crohn's disease. Having certain conditions passed from parent to child (hereditary conditions), such as: ?Familial adenomatous polyposis (FAP). ?Gonzalez syndrome. ?Turcot syndrome. ?Peutz Jeghers syndrome. ?MUTYH-associated polyposis (MAP). Being overweight. Certain lifestyle factors. These include smoking cigarettes, drinking too much alcohol, not getting enough exercise, and eating a diet that is high in fat and red meat and low in fiber. Having had childhood cancer that was treated with radiation of the abdomen. What are the signs or symptoms? Many times, there are no symptoms. If you have symptoms, they may include: Blood coming from the rectum during a bowel movement. Blood in the stool (feces). The blood may be bright red or very dark in color. Pain in the abdomen. A change in bowel habits, such as constipation or diarrhea. How is this diagnosed? This condition is diagnosed with a colonoscopy. This is a procedure in which a lighted, flexible scope is inserted into the opening between the buttocks (anus) and then passed into the colon to examine the area. Polyps are sometimes found when a colonoscopy is done as part of routine cancer screening tests. How is this treated? This condition is treated by removing any polyps that are found. Most polyps can be removed during a colonoscopy. Those polyps will then be tested for cancer. Additional treatment may be needed depending on the results of testing. Follow these instructions at home: Eating and drinking Eat foods that are high in fiber, such as fruits, vegetables, and whole grains. Eat foods that are high in calcium and vitamin D, such as milk, cheese, yogurt, eggs, liver, fish, and broccoli. Limit foods that are high in fat, such as fried foods and desserts. Limit the amount of red meat, precooked or cured meat, or other processed meat that you eat, such as hot dogs, sausages, kaiser, or meat loaves. Limit sugary drinks. Lifestyle Maintain a healthy weight, or lose weight if recommended by your health care provider. Exercise every day or as told by your health care provider. Do not use any products that contain nicotine or tobacco, such as cigarettes, e-cigarettes, and chewing tobacco. If you need help quitting, ask your health care provider. Do not drink alcohol if: ?Your health care provider tells you not to drink. ?You are , may be , or are planning to become . If you drink alcohol: ?Limit how much you use to: ?0 1 drink a day for women. ?0 2 drinks a day for men. ?Know how much alcohol is in your drink. In the [place] one drink equals one 12 oz bottle of beer (355 mL), one 5 oz glass of wine (148 mL), or one 1 oz glass of hard liquor (44 mL). General instructions Take [id number]-[id number] and prescription medicines only as told by your health care provider. Keep all follow-up visits. This is important. This includes having regularly scheduled colonoscopies. Talk to your health care provider about when you need a colonoscopy. Contact a health care provider if: You have new or worsening bleeding during a bowel movement. You have new or increased blood in your stool. You have a change in bowel habits. You lose weight for no known reason. Summary Colon polyps are tissue growths inside the colon, which is part of the large intestine. They are one type of polyp that can grow in the body. Most colon polyps are noncancerous (benign), but some can become cancerous over time. This condition is diagnosed with a colonoscopy. This condition is treated by removing any polyps that are found. Most polyps can be removed during a colonoscopy. This information is not intended to replace advice given to you by your health care provider. Make sure you discuss any questions you have with your health care provider. Document Revised: 11/30/2020 Document Reviewed: 11/30/2020 [facility] Patient Education 2022 [employer]. Follow Up Care 03/26/2023 13:13:41 With:Rosa Shearer CNP Address: When:1 month [facility] 06-05-2023 Note HNO ID: [id number] Author: Maikel Lunsford MD Service: ? Author Type: Physician Type: Progress Notes Filed: 06/09/2023 3:35 PM Note Text: NAME: Ivonne Cespedes CLINIC NO.: [id number] DATE OF SERVICE: June 05, 2023 (Martín) Some elements in this clinic note that are critical to medical decision making have been carefully reviewed and included from a prior clinic note dated: March 13, 2023 (Martín) Referring Provider: Rosa Shearer Additional Clinicians involved in Ivonne Cespedes's care: DIAGNOSIS: B12 deficiency History of right breast DCIS ASSESSMENT: 68 year old woman with DCIS diagnosed approximately 4 years ago in October 2018 status post lumpectomy and radiation but no endocrine therapy for chemoprevention. I will try to discuss this with her again at the next visit. However, it is unlikely to help her this far out from primary therapy. She is referred for persistent B12 deficiency and likely has pernicious anemia. Rather than checking for intrinsic factor antibodies, I will just treat the deficiency with B12 replacement intramuscularly every month. PLAN: B12 shot today and then every 4 weeks RTC in 12 weeks and repeat labs. Exam same day. Obtain mammography from [facility] Consult Court Registry Officer for help with pancreatic insufficiency (Dr. Hameed) HPI: CASE HISTORY: Reverse Chronological Order 02/13/2023 B12 level 144 11/01/2022 CBC 5.7 > 13.5/41.6 < 218 normal differential. March 2022 FibroScan F0-F1 no steatosis. January 2022 CT scan abdomen pelvis at [facility] hepatomegaly with hepatic steatosis. June 2021 CT abdomen pelvis right retrocrural lymph node. November 25, [address] 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 October 27, 2018 biopsy showed ductal carcinoma in situ high nuclear grade. The estrogen receptor was positive at 10-20% with progesterone receptor negative DCIS Right Breast - [facility] October 22, 2018 mammogram showing suspicious changes in the right breast. grouping of numerous pleomorphic calcifications within the posterior upper inner quadrant. Updated Visit, June 05, 2023: Mammogram done in [place] yesterday Was told she has pancreatic insufficiency B12 levels remain low. Initial Visit, March 13, 2023: Ivonne Cespedes presents today Hematology and Oncology evaluation. 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 Additionally has a history of pancreatic insufficiency requiring Creon and fatty liver disease with IBS diarrhea. She has known vitamin B12 deficiency with levels less than 50 and was supposed to start vitamin B12 supplementation which I did do not know if she did. B12 level February 13, 2023 had improved to 144. She is referred for evaluation of B12 supplementation. REVIEW OF SYSTEMS Per HPI and otherwise negative by full review of organ systems. ECOG PERFORMANCE STATUS: 0 PHYSICAL EXAMINATION: Vitals: BP 125/70 Pulse 78 Temp (Src) 97 (Temporal) Resp 16 Ht 5' 0 (1.52m) Wt 117 lb 9.6 oz (53.3kg) SpO2 97% BMI 22.97 kg/(m2). Body surface area is 1.5 meters squared. Exam limited to gross visualization where appropriate. Gen.: This is an age-appropriate patient in no acute distress. Head: Appears atraumatic with no visible lesions. Eyes: Pupils equally round and reactive to light, extraocular muscles are intact. Neck: Supple. Respiratory: Appears to be respiring comfortably. Neurologic: Nonfocal to gross visualization. Alert and oriented ?3. Psychiatric: No evidence of inappropriate anxiety or depression. Skin: Visible areas of skin without rash, lesions, wounds or petechiae. ALLERGIES: ALLERGIES Allergen Reactions Bupropion Shortness of Breath Zyban [Bupropion Hc* Shortness of Breath MEDICATIONS: calcium carbonate (CALCIUM 500 ORAL) Take by mouth. Cholecalciferol, Vitamin D3, (VITAMIN D) 1,000 unit cap Take 1,000 Units by mouth once daily. enzymes,digestive (DIGESTIVE ENZYMES ORAL) Take by mouth. levothyroxine (SYNTHROID) 50 mcg tablet take 1 tablet by mouth every day in the morning on empty stomach loperamide (IMODIUM) 2 mg cap(s) every other day. (Patient not taking: Reported on 03/13/2023) sertraline (ZOLOFT) 50 mg tablet Take 50 mg by mouth once daily. LABORATORY VALUES: WBC (k/uL) Date Value 06/05/2023 5.85 RBC (m/uL) Date (more content not included)... [facility] 06-05-2023 Instructions Maikel Lunsford MD - 06/05/2023 2:58 PM EDT B12 shot today and then every 4 weeks RTC in 12 weeks and repeat labs. Exam same day. Obtain mammography from [facility] Consult Court Registry Officer for help with pancreatic insufficiency (Dr. Hameed) documented in this encounter [facility] 06-05-2023 Nurse Note Digestive Doctor in [place] was told she did not have enough pancreatic enzymes, they told her that if she takes Vitamins it won't help. If she needs to do B12 injections again will it even work due to pancreatic issues? Desirae Sargent MA documented in this encounter [facility] 06-05-2023 History of Presen t illness Narrative Images from the original note were not included. NAME: Ivonne Cespedes CLINIC NO.: [id number] DATE OF SERVICE: June 05, 2023 (Martín) Some elements in this clinic note that are critical to medical decision making have been carefully reviewed and included from a prior clinic note dated: March 13, 2023 (Martín) Referring Provider: Rosa Shearer Additional Clinicians involved in Ivonne Cespedes's care: DIAGNOSIS: B12 deficiency History of right breast DCIS ASSESSMENT: 68 year old woman with DCIS diagnosed approximately 4 years ago in October 2018 status post lumpectomy and radiation but no endocrine therapy for chemoprevention. I will try to discuss this with her again at the next visit. However, it is unlikely to help her this far out from primary therapy. She is referred for persistent B12 deficiency and likely has pernicious anemia. Rather than checking for intrinsic factor antibodies, I will just treat the deficiency with B12 replacement intramuscularly every month. PLAN: B12 shot today and then every 4 weeks RTC in 12 weeks and repeat labs. Exam same day. Obtain mammography from [facility] Consult Court Registry Officer for help with pancreatic insufficiency (Dr. Hameed) HPI: CASE HISTORY: Reverse Chronological Order 02/13/2023 B12 level 144 11/01/2022 CBC 5.7 > 13.5/41.6 < 218 normal differential. March 2022 FibroScan F0-F1 no steatosis. January 2022 CT scan abdomen pelvis at [facility] hepatomegaly with hepatic steatosis. June 2021 CT abdomen pelvis right retrocrural lymph node. November 25, [address] 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 October 27, 2018 biopsy showed ductal carcinoma in situ high nuclear grade. The estrogen receptor was positive at 10-20% with progesterone receptor negative DCIS Right Breast - [facility] October 22, 2018 mammogram showing suspicious changes in the right breast. grouping of numerous pleomorphic calcifications within the posterior upper inner quadrant. Updated Visit, June 05, 2023: Mammogram done in [place] yesterday Was told she has pancreatic insufficiency B12 levels remain low. Initial Visit, March 13, 2023: Ivonne Cespedes presents today Hematology and Oncology evaluation. 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 Additionally has a history of pancreatic insufficiency requiring Creon and fatty liver disease with IBS diarrhea. She has known vitamin B12 deficiency with levels less than 50 and was supposed to start vitamin B12 supplementation which I did do not know if she did. B12 level February 13, 2023 had improved to 144. She is referred for evaluation of B12 supplementation. REVIEW OF SYSTEMS Per HPI and otherwise negative by full review of organ systems. ECOG PERFORMANCE STATUS: 0 PHYSICAL EXAMINATION: Vitals: BP 125/70 Pulse 78 Temp (Src) 97 (Temporal) Resp 16 Ht 5' 0 (1.52m) Wt 117 lb 9.6 oz (53.3kg) SpO2 97% BMI 22.97 kg/(m^2). Body surface area is 1.5 meters squared. Exam limited to gross visualization where appropriate. Gen.: This is an age-appropriate patient in no acute distress. Head: Appears atraumatic with no visible lesions. Eyes: Pupils equally round and reactive to light, extraocular muscles are intact. Neck: Supple. Respiratory: Appears to be respiring comfortably. Neurologic: Nonfocal to gross visualization. Alert and oriented 3. Psychiatric: No evidence of inappropriate anxiety or depression. Skin: Visible areas of skin without rash, lesions, wounds or petechiae. ALLERGIES: ALLERGIES Allergen Reactions Bupropion Shortness of Breath Zyban [Bupropion Hc* Shortness of Breath MEDICATIONS: calcium carbonate (CALCIUM 500 ORAL) Take by mouth. Cholecalciferol, Vitamin D3, (VITAMIN D) 1,000 unit cap Take 1,000 Units by mouth once daily. enzymes,digestive (DIGESTIVE ENZYMES ORAL) Take by mouth. levothyroxine (SYNTHROID) 50 mcg tablet take 1 tablet by mouth every day in the morning on empty stomach loperamide (IMODIUM) 2 mg cap(s) every other day. (Patient not taking: Reported on 03/13/2023) sertraline (ZOLOFT) 50 mg tablet Take 50 mg by mouth once daily. LABORATORY VALUES: WBC (k/uL) Date Value 06/05/2023 5.85 RBC (m/uL) Date Value 06/05/2023 4.47 Hemoglobin (g/dL) Date Value 06/05/2023 12.8 Hematocrit (%) Date Value 06/05/2023 39.7 MCV (fL) Date Value 06/05/2023 88.8 MCH (pg) Date Value 06/05/2023 28.6 MCHC (g/dL) Date Value 06/05/2023 32.2 RDW-CV (%) Date Value 06/05/2023 14.8 Platelet Count (k/uL) Date Value 06/05/2023 179 MPV (fL) Date Value 06/05/2023 10.0 Glucose (mg/dL) Date Value 06/05/2023 95 BUN (mg/dL) Date Value 06/05/2023 13 Creatinine (mg/dL) Date Value 06/05/2023 0.62 Sodium (mmol/L) Date Value 06/05/2023 140 Potassium (mmol/L) Date Value 06/05/2023 4.1 Chloride (mmol/L) Date Value 06/05/2023 103 CO2 (mmol/L) Date Value 06/05/2023 28 Protein, Total (g/dL) Date Value 06/05/2023 7.1 Albumin (g/dL) Date Value 06/05/2023 4.0 Calcium, Total (mg/dL) Date Value 06/05/2023 9.7 Alkaline Phosphatase (U/L) Date Value 06/05/2023 80 Bilirubin, Total (mg/dL) Date Value 06/05/2023 0.2 AST (U/L) Date Value 06/05/2023 18 ALT (U/L) Date Value 06/05/2023 12 DIAGNOSIS: (D53.1) 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 deficiency (primary encounter diagnosis) Plan: CBC + DIFF, COMP METABOLIC PANEL, IRON + TIBC, FERRITIN BLD, VITAMIN B12 BLOOD, FOLATE SERUM (D64.9) Anemia, unspecified type Plan: CBC + DIFF, COMP METABOLIC PANEL, IRON + TIBC, FERRITIN BLD, VITAMIN B12 BLOOD, FOLATE SERUM (K86.89) Pancreatic insufficiency Plan: CONSULT TO ONCOLOGY NUTRITION PAST MEDICAL HISTORY Diagnosis Date Arthritis B12 deficiency Chronic diarrhea Colon polyp COPD (chronic obstructive pulmonary disease) (HCC) Diverticular disease of colon Diverticulitis Ductal carcinoma in situ of breast Encounter for cholecystectomy Fatty liver Hematuria IBS (irritable bowel syndrome) Thyroid disease PAST SURGICAL HISTORY Procedure Laterality Date BACK SURGERY HX 2020 BREAST BX US GUIDED 10/27/2018 CHOLECYSTECTOMY HX 2011 COLONOSCOPY diverticulosis EGD 2011 HYSTERECTOMY HX 2006 Social History Tobacco Use Smoking status: Every Day Passive exposure: Current Smokeless tobacco: Never Tobacco comments: vapes Substance Use Topics Alcohol use: Not Currently Comment: socially Drug use: Never FAMILY HISTORY Problem Relation Age of Onset Diabetes Mother Heart disease Mother Emphysema Father I spent a total of 20 minutes on the date of the service which included preparing to see the patient, [id number] patient care, completing clinical documentation, obtaining and/or reviewing separately obtained history, performing a medically appropriate examination, counseling and educating the patient/family/caregiver, ordering medications, tests, or procedures, independently interpreting results (not separately reported), and communicating results to the patient/family/caregiver. Maikel Lunsford MD, CPE Hematology and Oncology Services Provided at: [place], [place] CC: Rosa Shearer [address] [facility] [address] [address] [facility] [address] [facility] [address] documented in this encounter [facility] 04-05-2023 Nurse Note Patient Identification confirmed: yes. Injection given and documented on MAR per provider order. Desirae Sargent MA documented in this encounter [facility] 04-01-2023 Miscellaneous Notes Received call from [facility] office. Requesting us to fax Dr CHANDRA office note from 03/13 to their office @ [phone]. Dr CHANDRA office note from 03/13/23 faxed to [phone]. Dede Kwong documented in this encounter [facility] 03-29-2023 Nurse Note Patient Identification confirmed: yes. Injection given and documented on MAR per provider order. Desirae Sargent MA documented in this encounter [facility] 03-26-2023 Hospital Discharg e instructions Patient Education 03/26/2023 12:56:48 Colon Polyps Colon Polyps Colon polyps are tissue growths inside the colon, which is part of the large intestine. They are one of the types of polyps that can grow in the body. A polyp may be a round bump or a mushroom-shaped growth. You could have one polyp or more than one. Most colon polyps are noncancerous (benign). However, some colon polyps can become cancerous over time. Finding and removing the polyps early can help prevent this. What are the causes? The exact cause of colon polyps is not known. What increases the risk? The following factors may make you more likely to develop this condition: Having a family history of colorectal cancer or colon polyps. Being older than 45 years of age. Being younger than 45 years of age and having a significant family history of colorectal cancer or colon polyps or a genetic condition that puts you at higher risk of getting colon polyps. Having inflammatory bowel disease, such as ulcerative colitis or Crohn's disease. Having certain conditions passed from parent to child (hereditary conditions), such as: ?Familial adenomatous polyposis (FAP). ?Gonzalez syndrome. ?Turcot syndrome. ?Peutz Jeghers syndrome. ?MUTYH-associated polyposis (MAP). Being overweight. Certain lifestyle factors. These include smoking cigarettes, drinking too much alcohol, not getting enough exercise, and eating a diet that is high in fat and red meat and low in fiber. Having had childhood cancer that was treated with radiation of the abdomen. What are the signs or symptoms? Many times, there are no symptoms. If you have symptoms, they may include: Blood coming from the rectum during a bowel movement. Blood in the stool (feces). The blood may be bright red or very dark in color. Pain in the abdomen. A change in bowel habits, such as constipation or diarrhea. How is this diagnosed? This condition is diagnosed with a colonoscopy. This is a procedure in which a lighted, flexible scope is inserted into the opening between the buttocks (anus) and then passed into the colon to examine the area. Polyps are sometimes found when a colonoscopy is done as part of routine cancer screening tests. How is this treated? This condition is treated by removing any polyps that are found. Most polyps can be removed during a colonoscopy. Those polyps will then be tested for cancer. Additional treatment may be needed depending on the results of testing. Follow these instructions at home: Eating and drinking Eat foods that are high in fiber, such as fruits, vegetables, and whole grains. Eat foods that are high in calcium and vitamin D, such as milk, cheese, yogurt, eggs, liver, fish, and broccoli. Limit foods that are high in fat, such as fried foods and desserts. Limit the amount of red meat, precooked or cured meat, or other processed meat that you eat, such as hot dogs, sausages, kaiser, or meat loaves. Limit sugary drinks. Lifestyle Maintain a healthy weight, or lose weight if recommended by your health care provider. Exercise every day or as told by your health care provider. Do not use any products that contain nicotine or tobacco, such as cigarettes, e-cigarettes, and chewing tobacco. If you need help quitting, ask your health care provider. Do not drink alcohol if: ?Your health care provider tells you not to drink. ?You are , may be , or are planning to become . If you drink alcohol: ?Limit how much you use to: ?0 1 drink a day for women. ?0 2 drinks a day for men. ?Know how much alcohol is in your drink. In the [place] one drink equals one 12 oz bottle of beer (355 mL), one 5 oz glass of wine (148 mL), or one 1 oz glass of hard liquor (44 mL). General instructions Take [id number] and prescription medicines only as told by your health care provider. Keep all follow-up visits. This is important. This includes having regularly scheduled colonoscopies. Talk to your health care provider about when you need a colonoscopy. Contact a health care provider if: You have new or worsening bleeding during a bowel movement. You have new or increased blood in your stool. You have a change in bowel habits. You lose weight for no known reason. Summary Colon polyps are tissue growths inside the colon, which is part of the large intestine. They are one type of polyp that can grow in the body. Most colon polyps are noncancerous (benign), but some can become cancerous over time. This condition is diagnosed with a colonoscopy. This condition is treated by removing any polyps that are found. Most polyps can be removed during a colonoscopy. This information is not intended to replace advice given to you by your health care provider. Make sure you discuss any questions you have with your health care provider. Document Revised: 11/30/2020 Document Reviewed: 11/30/2020 [employer] Patient Education 2022 [employer]. Follow Up Care 02/22/2023 12:55:30 With:Rosa Shearer CNP Address: When:3 months [facility] 03-22-2023 Nurse Note Patient Identification confirmed: yes. Injection given and documented on OCT per provider order. Desirae Sargent MA documented in this encounter [facility] 03-13-2023 Note HNO ID: [id number] Author: Maikel Lunsford MD Service: ? Author Type: Physician Type: Progress Notes Filed: 03/31/2023 5:15 PM Note Text: NAME: Ivonne Cespedes NO.: [id number] DATE OF SERVICE: March 13, 2023 ([email or web address]) Referring Provider: Rosa Shearer Consultation requested by Rosa Shearer for an opinion regarding Ms. Ivonne Cespedes, and my final recommendations will be communicated back to the requesting physician by way of shared medical record or letter via [place] mail. Additional Clinicians involved in Ivonne Cespdees's care: DIAGNOSIS: B12 deficiency History of right breast DCIS ASSESSMENT: 67 year old woman with DCIS diagnosed approximately 4 years ago in October 2018 status post lumpectomy and radiation but no endocrine therapy for chemoprevention. I will try to discuss this with her again at the next visit. However, it is unlikely to help her this far out from primary therapy. She is referred for persistent B12 deficiency and likely has pernicious anemia. Rather than checking for intrinsic factor antibodies, I will just treat the deficiency with B12 replacement intramuscularly every month. PLAN: Labs today please B12 shot after labs today and then weekly x 4 then every 4 weeks RTC in 12 weeks and repeat labs. HPI: CASE HISTORY: Reverse Chronological Order 02/13/2023 B12 level 144 11/01/2022 CBC 5.7 > 13.5/41.6 < 218 normal differential. March 2022 FibroScan F0-F1 no steatosis. January 2022 CT scan abdomen pelvis at [facility] hepatomegaly with hepatic steatosis. June 2021 CT abdomen pelvis right retrocrural lymph node. November 25, [address] 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 October 27, 2018 biopsy showed ductal carcinoma in situ high nuclear grade. The estrogen receptor was positive at 10-20% with progesterone receptor negative DCIS Right Breast - [facility] October 22, 2018 mammogram showing suspicious changes in the right breast. grouping of numerous pleomorphic calcifications within the posterior upper inner quadrant. Initial Visit, March 13, 2023: Ivonne Cespedes presents today Hematology and Oncology evaluation. 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 Additionally has a history of pancreatic insufficiency requiring Creon and fatty liver disease with IBS diarrhea. She has known vitamin B12 deficiency with levels less than 50 and was supposed to start vitamin B12 supplementation which I did do not know if she did. B12 level February 13, 2023 had improved to 144. She is referred for evaluation of B12 supplementation. REVIEW OF SYSTEMS Per HPI and otherwise negative by full review of organ systems. ECOG PERFORMANCE STATUS: 0 PHYSICAL EXAMINATION: Vitals: BP 145/88 Pulse 73 Temp (Src) 97.4 (Temporal) Resp 16 Ht 5' 0 (1.52m) Wt 118 lb 9.6 oz (53.8kg) SpO2 98% BMI 23.16 kg/(m2). Body surface area is 1.51 meters squared. Exam limited to gross visualization where appropriate. Gen.: This is an age-appropriate patient in no acute distress. Head: Appears atraumatic with no visible lesions. Eyes: Pupils equally round and reactive to light, extraocular muscles are intact. Neck: Supple. Respiratory: Appears to be respiring comfortably. Neurologic: Nonfocal to gross visualization. Alert and oriented ?3. Psychiatric: No evidence of inappropriate anxiety or depression. Skin: Visible areas of skin without rash, lesions, wounds or petechiae. ALLERGIES: ALLERGIES Allergen Reactions Bupropion Shortness of Breath Zyban [Bupropion Hc* Shortness of Breath MEDICATIONS: levothyroxine (SYNTHROID) 50 mcg tablet take 1 tablet by mouth every day in the morning on empty stomach enzymes,digestive (DIGESTIVE ENZYMES ORAL) Take by mouth. sertraline (ZOLOFT) 50 mg tablet Take 50 mg by mouth once daily. calcium carbonate (CALCIUM 500 ORAL) Take by mouth. Cholecalciferol, Vitamin D3, (VITAMIN D) 1,000 unit cap Take 1,000 Units by mouth once daily. loperamide (IMODIUM) 2 mg cap(s) every other day. (Patient not taking: Reported on 03/13/2023) LABORATORY VALUES: WBC (k/uL) Date Value 03/13/2023 6.03 RBC (m/uL) Date Value 03/13/2023 4.77 Hemoglobin (g/dL) Date Value 03/13/2023 13.7 Hematocrit (%) Date Value 03/13/2023 42.7 MCV (fL) Date Value 03/13/2023 89.5 M (more content not included)... [facility] 03-13-2023 Nurse Note Patient Identification confirmed: yes. Injection given and documented on OCT per provider order. Pepe Yadav documented in this encounter [facility] 03-13-2023 Instructions Maikel Lunsford MD - 03/13/2023 12:03 PM EDT Labs today please B12 shot after labs today and then weekly x 4 then every 4 weeks RTC in 12 weeks and repeat labs. documented in this encounter [facility] 03-13-2023 History of Presen t illness Narrative Images from the original note were not included. NAME: Ivonne Cespedes [facility] NO.: [id number] DATE OF SERVICE: March 13, 2023 (Martín) Referring Provider: Rosa Shearer Consultation requested by Rosa Shearer for an opinion regarding Ms. Ivonne Cespedes, and my final recommendations will be communicated back to the requesting physician by way of shared medical record or letter via [place] mail. Additional Clinicians involved in Ivonne Cespedes's care: DIAGNOSIS: B12 deficiency History of right breast DCIS ASSESSMENT: 67 year old woman with DCIS diagnosed approximately 4 years ago in October 2018 status post lumpectomy and radiation but no endocrine therapy for chemoprevention. I will try to discuss this with her again at the next visit. However, it is unlikely to help her this far out from primary therapy. She is referred for persistent B12 deficiency and likely has pernicious anemia. Rather than checking for intrinsic factor antibodies, I will just treat the deficiency with B12 replacement intramuscularly every month. PLAN: Labs today please B12 shot after labs today and then weekly x 4 then every 4 weeks RTC in 12 weeks and repeat labs. HPI: CASE HISTORY: Reverse Chronological Order 02/13/2023 B12 level 144 11/01/2022 CBC 5.7 > 13.5/41.6 < 218 normal differential. March 2022 FibroScan F0-F1 no steatosis. January 2022 CT scan abdomen pelvis at [facility] hepatomegaly with hepatic steatosis. June 2021 CT abdomen pelvis right retrocrural lymph node. November 25, [address] 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 October 27, 2018 biopsy showed ductal carcinoma in situ high nuclear grade. The estrogen receptor was positive at 10-20% with progesterone receptor negative DCIS Right Breast - [facility] October 22, 2018 mammogram showing suspicious changes in the right breast. grouping of numerous pleomorphic calcifications within the posterior upper inner quadrant. Initial Visit, March 13, 2023: Ivonne Cespedes presents today Hematology and Oncology evaluation. 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 Additionally has a history of pancreatic insufficiency requiring Creon and fatty liver disease with IBS diarrhea. She has known vitamin B12 deficiency with levels less than 50 and was supposed to start vitamin B12 supplementation which I did do not know if she did. B12 level February 13, 2023 had improved to 144. She is referred for evaluation of B12 supplementation. REVIEW OF SYSTEMS Per HPI and otherwise negative by full review of organ systems. ECOG PERFORMANCE STATUS: 0 PHYSICAL EXAMINATION: Vitals: BP 145/88 Pulse 73 Temp (Src) 97.4 (Temporal) Resp 16 Ht 5' 0 (1.52m) Wt 118 lb 9.6 oz (53.8kg) SpO2 98% BMI 23.16 kg/(m^2). Body surface area is 1.51 meters squared. Exam limited to gross visualization where appropriate. Gen.: This is an age-appropriate patient in no acute distress. Head: Appears atraumatic with no visible lesions. Eyes: Pupils equally round and reactive to light, extraocular muscles are intact. Neck: Supple. Respiratory: Appears to be respiring comfortably. Neurologic: Nonfocal to gross visualization. Alert and oriented 3. Psychiatric: No evidence of inappropriate anxiety or depression. Skin: Visible areas of skin without rash, lesions, wounds or petechiae. ALLERGIES: ALLERGIES Allergen Reactions Bupropion Shortness of Breath Zyban [Bupropion Hc* Shortness of Breath MEDICATIONS: levothyroxine (SYNTHROID) 50 mcg tablet take 1 tablet by mouth every day in the morning on empty stomach enzymes,digestive (DIGESTIVE ENZYMES ORAL) Take by mouth. sertraline (ZOLOFT) 50 mg tablet Take 50 mg by mouth once daily. calcium carbonate (CALCIUM 500 ORAL) Take by mouth. Cholecalciferol, Vitamin D3, (VITAMIN D) 1,000 unit cap Take 1,000 Units by mouth once daily. loperamide (IMODIUM) 2 mg cap(s) every other day. (Patient not taking: Reported on 03/13/2023) LABORATORY VALUES: WBC (k/uL) Date Value 03/13/2023 6.03 RBC (m/uL) Date Value 03/13/2023 4.77 Hemoglobin (g/dL) Date Value 03/13/2023 13.7 Hematocrit (%) Date Value 03/13/2023 42.7 MCV (fL) Date Value 03/13/2023 89.5 MCH (pg) Date Value 03/13/2023 28.7 MCHC (g/dL) Date Value 03/13/2023 32.1 RDW-CV (%) Date Value 03/13/2023 14.6 Platelet Count (k/uL) Date Value 03/13/2023 199 MPV (fL) Date Value 03/13/2023 9.7 Glucose (mg/dL) Date Value 03/13/2023 102 (H) BUN (mg/dL) Date Value 03/13/2023 10 Creatinine (mg/dL) Date Value 03/13/2023 0.62 Sodium (mmol/L) Date Value 03/13/2023 141 Potassium (mmol/L) Date Value 03/13/2023 4.5 Chloride (mmol/L) Date Value 03/13/2023 104 CO2 (mmol/L) Date Value 03/13/2023 30 Protein, Total (g/dL) Date Value 03/13/2023 7.4 Albumin (g/dL) Date Value 03/13/2023 4.3 Calcium, Total (mg/dL) Date Value 03/13/2023 10.3 (H) Alkaline Phosphatase (U/L) Date Value 03/13/2023 91 Bilirubin, Total (mg/dL) Date Value 03/13/2023 0.3 AST (U/L) Date Value 03/13/2023 80 (H) ALT (U/L) Date Value 03/13/2023 107 (H) DIAGNOSIS: (D64.9) Anemia, unspecified type (primary encounter diagnosis) Plan: CBC + DIFF, COMP METABOLIC PANEL, IRON + TIBC, FERRITIN BLD, VITAMIN B12 BLOOD, FOLATE SERUM, INTRINSIC FACTOR BLOCKING AB, CBC + DIFF, COMP METABOLIC PANEL, IRON + TIBC, FERRITIN BLD, VITAMIN B12 BLOOD, FOLATE SERUM, DISCONTINUED: cyanocobalamin 1,000 mcg injection, DISCONTINUED: cyanocobalamin 1,000 mcg injection, DISCONTINUED: cyanocobalamin 1,000 mcg injection (D53.1) 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 deficiency Plan: CBC + DIFF, COMP METABOLIC PANEL, IRON + TIBC, FERRITIN BLD, VITAMIN B12 BLOOD, FOLATE SERUM, INTRINSIC FACTOR BLOCKING AB, CBC + DIFF, COMP METABOLIC PANEL, IRON + TIBC, FERRITIN BLD, VITAMIN B12 BLOOD, FOLATE SERUM, DISCONTINUED: cyanocobalamin 1,000 mcg injection, DISCONTINUED: cyanocobalamin 1,000 mcg injection, DISCONTINUED: cyanocobalamin 1,000 mcg injection PAST MEDICAL HISTORY Diagnosis Date Arthritis B12 deficiency Chronic diarrhea Colon polyp COPD (chronic obstructive pulmonary disease) (HCC) Diverticular disease of colon Diverticulitis Ductal carcinoma in situ of breast Encounter for cholecystectomy Fatty liver Hematuria IBS (irritable bowel syndrome) Thyroid disease PAST SURGICAL HISTORY Procedure Laterality Date BACK SURGERY HX 2020 BREAST BX US GUIDED 10/27/2018 CHOLECYSTECTOMY HX 2011 COLONOSCOPY diverticulosis EGD 2012 HYSTERECTOMY HX 2007 Social History Tobacco Use Smoking status: Every Day Passive exposure: Current Smokeless tobacco: Never Tobacco comments: vapes Substance Use Topics Alcohol use: Not Currently Comment: socially Drug use: Never FAMILY HISTORY Problem Relation Age of Onset Diabetes Mother Heart disease Mother Emphysema Father I spent a total of 45 minutes on the date of the service which included preparing to see the patient, [id number]-esfo patient care, completing clinical documentation, obtaining and/or reviewing separately obtained history, performing a medically appropriate examination, counseling and educating the patient/family/caregiver, ordering medications, tests, or procedures, independently interpreting results (not separately reported), and communicating results to the patient/family/caregiver. Maikel Lunsford MD, CPE Hematology and Oncology Services Provided at: [place], [place] CC: Rosa Shearer [address] [facility] [address] [address] [facility] [address] [facility] [id number] documented in this encounter [facility] 03-13-2023 Nurse Note Patient states that her pancreatic enzymes have been off they prescribed Creon but was to expensive, she did buy an over the counter Pancreatic supplement but not sure if that has helped. Patient also has been seeing Dr. Tejeda in [place] due to digestive issues, cramping in lower abdomin they cannot figure out why. Desirae Saregnt MA documented in this encounter [facility] 02-22-2023 Hospital Discharg e instructions Patient Education 02/22/2023 12:16:01 Fatty Liver Disease Fatty Liver Disease The liver converts food into energy, removes toxic material from the blood, makes important proteins, and absorbs necessary vitamins from food. Fatty liver disease occurs when too much fat has built up in your liver cells. Fatty liver disease is also called hepatic steatosis. In many cases, fatty liver disease does not cause symptoms or problems. It is often diagnosed when tests are being done for other reasons. However, over time, fatty liver can cause inflammation that may lead to more serious liver problems, such as scarring of the liver (cirrhosis) and liver failure. Fatty liver is associated with insulin resistance, increased body fat, high blood pressure (hypertension), and high cholesterol. These are features of metabolic syndrome and increase your risk for stroke, diabetes, and heart disease. What are the causes? This condition may be caused by components of metabolic syndrome: Obesity. Insulin resistance. High cholesterol. Other causes: Alcohol abuse. Poor nutrition. Breanne syndrome. . Certain drugs. Poisons. Some viral infections. What increases the risk? You are more likely to develop this condition if you: Abuse alcohol. Are overweight. Have diabetes. Have hepatitis. Have a high triglyceride level. Are . What are the signs or symptoms? Fatty liver disease often does not cause symptoms. If symptoms do develop, they can include: Fatigue and weakness. Weight loss. Confusion. Nausea, vomiting, or abdominal pain. Yellowing of your skin and the white parts of your eyes (jaundice). Itchy skin. How is this diagnosed? This condition may be diagnosed by: A physical exam and your medical history. Blood tests. Imaging tests, such as an ultrasound, CT scan, or MRI. A liver biopsy. A small sample of liver tissue is removed using a needle. The sample is then looked at under a microscope. How is this treated? Fatty liver disease is often caused by other health conditions. Treatment for fatty liver may involve medicines and lifestyle changes to manage conditions such as: Alcoholism. High cholesterol. Diabetes. Being overweight or obese. Follow these instructions at home: Do not drink alcohol. If you have trouble quitting, ask your health care provider how to safely quit with the help of medicine or a supervised program. This is important to keep your condition from getting worse. Eat a healthy diet as told by your health care provider. Ask your health care provider about working with a dietitian to develop an eating plan. Exercise regularly. This can help you lose weight and control your cholesterol and diabetes. Talk to your health care provider about an exercise plan and which activities are best for you. Take cpzj-ukq-rxroxld and prescription medicines only as told by your health care provider. Keep all follow-up visits. This is important. Contact a health care provider if: You have trouble controlling your: ?Blood sugar. This is especially important if you have diabetes. ?Cholesterol. ?Drinking of alcohol. Get help right away if: You have abdominal pain. You have jaundice. You have nausea and are vomiting. You vomit blood or material that looks like coffee grounds. You have stools that are black, tar-like, or bloody. Summary Fatty liver disease develops when too much fat builds up in the cells of your liver. Fatty liver disease often causes no symptoms or problems. However, over time, fatty liver can cause inflammation that may lead to more serious liver problems, such as scarring of the liver (cirrhosis). You are more likely to develop this condition if you abuse alcohol, are , are overweight, have diabetes, have hepatitis, or have high triglyceride or cholesterol levels. Contact your health care provider if you have trouble controlling your blood sugar, cholesterol, or drinking of alcohol. This information is not intended to replace advice given to you by your health care provider. Make sure you discuss any questions you have with your health care provider. Document Revised: 05/25/2021 Document Reviewed: 05/25/2021 [employer] Patient Education 2022 [employer]. Follow Up Care 11/22/2022 13:36:40 With:Rosa Shearer CNP Address: When:1 month [facility] 01-25-2023 Evaluation note Encounter Date Diagnosis Assessment Notes Jan, Cellulitis of right index finger (ICD-10 - L03.011) Discussed diagnosis with patient in detail. Instructed patient to take antibiotic as directed, complete entire course even if feeling better, take with food and plenty of water. Instructed close monitoring of area. Encouraged warm Epsom salt soaks. Follow up with PCP in the next 2-3 days if symptoms do not improve. Immediate eval by ER if fever, chills, body aches, increase in swelling or redness, red streaking from area or if any new or concerning symptoms arise. Patient verbalizes understanding and is agreeable to treatment plan. [employer] Other [id number] Nurse Note* Ignacio November - 06/05/2023 3:23 PM EDT Patient Identification confirmed: yes. Injection given and documented on OCT per provider order. Shirley Pierre [facility] Discharge instructions Patient Education 11/22/2022 13:32:05 Fatty Liver Disease Fatty Liver Disease Fatty liver disease occurs when too much fat has built up in your liver cells. Fatty liver disease is also called hepatic steatosis or steatohepatitis. The liver removes harmful substances from your bloodstream and produces fluids that your body needs. It also helps your body use and store energy from the food you eat. In many cases, fatty liver disease does not cause symptoms or problems. It is often diagnosed when tests are being done for other reasons. However, over time, fatty liver can cause inflammation that may lead to more serious liver problems, such as scarring of the liver (cirrhosis) and liver failure. Fatty liver is associated with insulin resistance, increased body fat, high blood pressure (hypertension), and high cholesterol. These are features of metabolic syndrome and increase your risk for stroke, diabetes, and heart disease. What are the causes? This condition may be caused by: Drinking too much alcohol. Poor nutrition. Obesity. Kinsman's syndrome. Diabetes. High cholesterol. Certain drugs. Poisons. Some viral infections. . What increases the risk? You are more likely to develop this condition if you: Abuse alcohol. Are overweight. Have diabetes. Have hepatitis. Have a high triglyceride level. Are . What are the signs or symptoms? Fatty liver disease often does not cause symptoms. If symptoms do develop, they can include: Fatigue. Weakness. Weight loss. Confusion. Abdominal pain. Nausea and vomiting. Yellowing of your skin and the white parts of your eyes (jaundice). Itchy skin. How is this diagnosed? This condition may be diagnosed by: A physical exam and medical history. Blood tests. Imaging tests, such as an ultrasound, CT scan, or MRI. A liver biopsy. A small sample of liver tissue is removed using a needle. The sample is then lookedat under a microscope. How is this treated? Fatty liver disease is often caused by other health conditions. Treatment for fatty liver may involve medicines and lifestyle changes to manage conditions such as: Alcoholism. High cholesterol. Diabetes. Being overweight or obese. Follow these instructions at home: Do not drink alcohol. If you have trouble quitting, ask your health care provider how to safely quit with the help of medicine or a supervised program. This is important to keep your condition from getting worse. Eat a healthy diet as told by your health care provider. Ask your health care provider about working with a diet and animal nutritionist (dietitian) to develop an eating plan. Exercise regularly. This can help you lose weight and control your cholesterol and diabetes. Talk to your health care provider about an exercise plan and which activities are best for you. Take mfkb-xrg-mzixnok and prescription medicines only as told by your health care provider. Keep all follow-up visits as told by your health care provider. This is important. Contact a health care provider if: You have trouble controlling your: Blood sugar. This is especially important if you have diabetes. Cholesterol. Drinking of alcohol. Get help right away if: You have abdominal pain. You have jaundice. You have nausea and vomiting. You vomit blood or material that looks like coffee grounds. You have stools that are black, tar-like, or bloody. Summary Fatty liver disease develops when too much fat builds up in the cells of your liver. Fatty liver disease often causes no symptoms or problems. However, over time, fatty liver can causeinflammation that may lead to more serious liver problems, such as scarring of the liver (cirrhosis). You are more likely to develop this condition if you abuse alcohol, are , are overweight, have diabetes, have hepatitis, or have high triglyceride levels. Contact your health care provider if you have trouble controlling your weight, blood sugar, cholesterol, or drinking of alcohol. This information is not intended to replace advice given to you by your health care provider. Make sure you discuss any questions you have with your health care provider. Document Released: 09/27/2006 Document Revised: 07/25/2018 Document Reviewed: 05/21/2018 [employer] Patient Education 2019 [employer] Follow Up Care 11/01/2022 08:42:19 With:Rosa Shearer CNP Address: When:3 months [facility] 11-01-2022 Evaluation + Plan note Future Scheduled Tests Laboratory* Vitamin E Level 06/26/22 * Vitamin A Level 06/26/22 * Vitamin D 25 Hydroxy 06/26/22 * Vitamin B12 Level 06/26/22 [facility]10-25-2022 Hospital Discharge instructions Patient Education 06/19/2022 12:46:40 Diet for Irritable Bowel Syndrome Diet for Irritable Bowel Syndrome When you have irritable bowel syndrome (IBS), it is very important to eat the foods and follow the eating habits that are best for your condition. IBS may cause various symptoms such as pain in the abdomen, constipation, or diarrhea. Choosing the right foods can help to ease the discomfort from these symptoms. Work with your health care provider and diet and animal nutritionist (dietitian) to find the eating plan that will help to control your symptoms. What are tips for following this plan? Keep a food diary. This will help you identify foods that cause symptoms. Write down: ?What you eat and when you eat it. ?What symptoms you have. ?When symptoms occur in relation to your meals, such as pain in abdomen 2 hours after dinner. Eat your meals slowly and in a relaxed setting. Aim to eat 5 6 small meals per day. Do not skip meals. Drink enough fluid to keep your urine pale yellow. Ask your health care provider if you should take an sice-ghv-yjxhttl probiotic to help restore healthy bacteria in your gut (digestive tract). ?Probiotics are foods that contain good bacteria and yeasts. Your dietitian may have specific dietary recommendations for you based on your symptoms. He or she may recommend that you: ?Avoid foods that cause symptoms. Talk with your dietitian about other ways to get the same nutrients that are in those problem foods. ?Avoid foods with gluten. Gluten is a protein that is found in rye, wheat, and barley. ?Eat more foods that contain soluble fiber. Examples of foods with high soluble fiber include oats,seeds, and certain fruits and vegetables. Take a fiber supplement if directed by your dietitian. ?Reduce or avoid certain foods called FODMAPs. These are foods that contain carbohydrates that are hard to digest. Ask your doctor which foods contain these carbohydrates. What foods are not recommended? The following are some foods and drinks that may make your symptoms worse: Fatty foods, such as greek fries. Foods that contain gluten, such as pasta and cereal. Dairy products, such as milk, cheese, and ice cream. Chocolate. Alcohol. Products with caffeine, such as coffee. Carbonated drinks, such as soda. Foods that are high in FODMAPs. These include certain fruits and vegetables. Products with sweeteners such as honey, high fructose corn syrup, sorbitol, and mannitol. The items listed above may not be a complete list of foods and beverages you should avoid. Contact a dietitian for more information. What foods are good sources of fiber? Your health care provider or dietitian may recommend that you eat more foods that contain fiber. Fiber can help to reduce constipation and other IBS symptoms. Add foods with fiber to your diet a little at a time so your body can get used to them. Too much fiber at one time might cause gas and swelling of your abdomen. The following are some foods that are good sources of fiber: Berries, such as raspberries, strawberries, and blueberries. Tomatoes. Carrots. Brown rice. Oats. Seeds, such as kamala and pumpkin seeds. The items listed above may not be a complete list of recommended sources of fiber. Contact your dietitian for more options. Where to find more information International Foundation for Functional Gastrointestinal Disorders: www.iffgd.org National [place] of Diabetes and Digestive and Kidney Diseases: www.niddk.nih.gov Summary When you have irritable bowel syndrome (IBS), it is very important to eat the foods and follow the eating habits that are best for your condition. IBS may cause various symptoms such as pain in the abdomen, constipation, or diarrhea. Choosing the right foods can help to ease the discomfort that comes from symptoms. Keep a food diary. This will help you identify foods that cause symptoms. Your health care provider or diet and animal nutritionist (dietitian) may recommend that you eat more foods that contain fiber. This information is not intended to replace advice given to you by your health care provider. Make sure you discuss any questions you have with your health care provider. Document Released: 11/01/2004 Document Revised: 12/02/2019 Document Reviewed: 04/15/2018 [employer] Patient Education 2020 [employer]. 06/19/2022 12:46:38 Fatty Liver Disease Fatty Liver Disease Fatty liver disease occurs when too much fat has built up in your liver cells. Fatty liver disease is also called hepatic steatosis or steatohepatitis. The liver removes harmful substances from your bloodstream and produces fluids that your body needs. It also helps your body use and store energy from the food you eat. In many cases, fatty liver disease does not cause symptoms or problems. It is often diagnosed when tests are being done for other reasons. However, over time, fatty liver can cause inflammation that may lead to more serious liver problems, such as scarring of the liver (cirrhosis) and liver failure. Fatty liver is associated with insulin resistance, increased body fat, high blood pressure (hypertension), and high cholesterol. These are features of metabolic syndrome and increase your risk for stroke, diabetes, and heart disease. What are the causes? This condition may be caused by: Drinking too much alcohol. Poor nutrition. Obesity. Kinsman's syndrome. Diabetes. High cholesterol. Certain drugs. Poisons. Some viral infections. . What increases the risk? You are more likely to develop this condition if you: Abuse alcohol. Are overweight. Have diabetes. Have hepatitis. Have a high triglyceride level. Are . What are the signs or symptoms? Fatty liver disease often does not cause symptoms. If symptoms do develop, they can include: Fatigue. Weakness. Weight loss. Confusion. Abdominal pain. Nausea and vomiting. Yellowing of your skin and the white parts of your eyes (jaundice). Itchy skin. How is this diagnosed? This condition may be diagnosed by: A physical exam and medical history. Blood tests. Imaging tests, such as an ultrasound, CT scan, or MRI. A liver biopsy. A small sample of liver tissue is removed using a needle. The sample is then lookedat under a microscope. How is this treated? Fatty liver disease is often caused by other health conditions. Treatment for fatty liver may involve medicines and lifestyle changes to manage conditions such as: Alcoholism. High cholesterol. Diabetes. Being overweight or obese. Follow these instructions at home: Do not drink alcohol. If you have trouble quitting, ask your health care provider how to safely quit with the help of medicine or a supervised program. This is important to keep your condition from getting worse. Eat a healthy diet as told by your health care provider. Ask your health care provider about working with a diet and animal nutritionist (dietitian) to develop an eating plan. Exercise regularly. This can help you lose weight and control your cholesterol and diabetes. Talk to your health care provider about an exercise plan and which activities are best for you. Take flez-brp-hmfsnxv and prescription medicines only as told by your health care provider. Keep all follow-up visits as told by your health care provider. This is important. Contact a health care provider if: You have trouble controlling your: Blood sugar. This is especially important if you have diabetes. Cholesterol. Drinking of alcohol. Get help right away if: You have abdominal pain. You have jaundice. You have nausea and vomiting. You vomit blood or material that looks like coffee grounds. You have stools that are black, tar-like, or bloody. Summary Fatty liver disease develops when too much fat builds up in the cells of your liver. Fatty liver disease often causes no symptoms or problems. However, over time, fatty liver can causeinflammation that may lead to more serious liver problems, such as scarring of the liver (cirrhosis). You are more likely to develop this condition if you abuse alcohol, are , are overweight, have diabetes, have hepatitis, or have high triglyceride levels. Contact your health care provider if you have trouble controlling your weight, blood sugar, cholesterol, or drinking of alcohol. This information is not intended to replace advice given to you by your health care provider. Make sure you discuss any questions you have with your health care provider. Document Released: 09/27/2006 Document Revised: 07/25/2018 Document Reviewed: 05/21/2018 [employer] Patient Education 2020 [employer] Follow Up Care 04/17/2022 13:08:53 With:Rosa Shearer CNP Address: When:1 month [facility] [id number] Hospital Discharge instructions Follow Up Care 12/01/2021 15:26:08 With:JOSUÉ SOMMERS, NIR Chu, [facility] Address: [facility] [address] [place] [address]- When:Within 2 Month(s) [facility] Evaluation + Plan note Future Appointments Appointment Date:05/01/2022 02:00:00 PM Scheduled Provider:Rosa Shearer CNP [place] App[facility]ment Type:[facility] Follow Up [facility] Evaluation + Plan note Future Appointments Appointment Date:04/17/2022 12:15:00 PM Scheduled Provider:Kimberley HAMEED MD Location[place] Appointment Date:06/19/2022 12:40:00 PM Scheduled Provider:Rosa Shearer CNP Location[place] Appointment Type:[facility] Follow Up [facility] Evaluation + Plan note Future Appointments Appointment Date:07/24/2022 01:40:00 PM Scheduled Provider:Rosa Shearer CNP Location:[facility] Appointment Type:[facility] Follow Up Future Scheduled Tests Laboratory* Pancreatic Elastase, Fecal 06/19/22 * Fecal WBC Lactoferrin 06/19/22 * Giardia lamblia, Direct Detection EIA 06/19/22 * O & P Exam, Routine 06/19/22 * Clostridium difficile by PCR 06/19/22 * Enteric Panel by PCR 06/19/22 [facility] Evaluation + Plan note Future Appointments Appointment Date:10/16/2022 02:00:00 PM Scheduled Provider: [facility] Type:US Abdominal/Pelvis (FT) Future Scheduled Tests Laboratory* Vitamin E Level 06/26/22 * Vitamin A Level 06/26/22 * Vitamin D 25 Hydroxy 06/26/22 * Vitamin B12 Level 06/26/22 Radiology* US Pelvis Non-OB Complete 10/16/22 [facility] Evaluation + Plan note Future Appointments Appointment Date:11/22/2022 01:00:00 PM Scheduled Provider:Rosa Shearer CNP Location:[facility] Appointment Type:[facility] Follow Up Diagnostic Tests Pending * Vitamin E Level 11/01/22 * Vitamin A [facility]/01/22 [facility]ments Appointment Date:02/22/2023 12:20:00 PM Scheduled Provider:Rosa Shearer CNP Location[place] Appointment Type:[facility] Follow Up Future Scheduled Tests Laboratory* Vitamin B12 Level 11/22/22 [facility] Evaluation + Plan note Future Appointments Appointment Date:02/22/2023 12:20:00 PM Scheduled Provider:Rosa Shearer CNP Location:[facility] Appointment Type:[facility] Future App[facility]ments Appointment Date:03/07/2023 12:00:00 PM Scheduled Provider: Shahnaz:[facility] Surgical Services Appointment Type:Surgery FT Appointment Date:03/26/2023 12:40:00 PM Scheduled Provider:Rosa Shearer CNP Location:[facility] Appointment Type:[facility] Follow Up [facility] Evaluation + Plan note Future Appointments Appointment Date:03/26/2023 12:40:00 PM Scheduled Provider:Rosa Shearer CNP Location:[facility] Appointment Type:[facility] App[facility]ments Appointment Date:06/26/2023 12:40:00 PM Scheduled Provider:Rosa Shearer CNP Location:[facility] Appointment Type:[facility] Follow Up [facility] Evaluation + Plan note Future Appointments Appointment Date:07/26/2023 01:40:00 PM Scheduled Provider:Rosa Shearer CNP Location:[facility] Appointment Type:[facility] Follow Up Future Scheduled Tests Laboratory* Pancreatic Elastase, Fecal 06/26/23 [facility] evaluation + Plan note Future Appointments Appointment Date:10/11/2023 01:00:00 PM Scheduled Provider:Rosa Shearer CNP Location:[facility] Appointment Type:[facility] Follow Up Future Scheduled Tests Laboratory* Pancreatic Elastase, Fecal 06/26/23 [facility] Evaluation + Plan note Future Appointments Appointment Date:10/11/2023 01:00:00 PM Scheduled Provider:Rosa Shearer CNP Location:[facility] Appointment Type:[facility] Follow Up Diagnostic Tests Pending * Pancreatic Elastase, Fecal 07/31/23 [facility] Future Appointments Appointment Date:03/09/2024 12:00:00 PM Scheduled Provider: Location:[facility] Surgical Services Appointment Type:Surgery FT Appointment Date:03/27/2024 12:00:00 PM Scheduled Provider:Rosa Shearer CNP Location:[facility] Appointment Type:[facility] Follow Up Future Scheduled Tests Laboratory* CBC w/ Auto Diff 10/11/23 * Comprehensive Metabolic Panel 10/11/23 * Vitamin B12 Level 10/11/23 [facility] evaluation note* Diagnosis Anemia, 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 Other vitamin B12 deficiency anemia [facility] Diagnosis Anemia, 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 Other vitamin B12 deficiency anemia [facility]* Diagnosis Anemia, 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 Other vitamin B12 deficiency anemia [facility]* Diagnosis Anemia, 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 Other vitamin B12 deficiency anemia [facility] Diagnosis Anemia, 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 Other vitamin B12 deficiency anemia [facility]* Diagnosis Anemia, 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 Other vitamin B12 deficiency anemia [facility] Diagnosis 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 deficiency- Primary Other vitamin B12 deficiency anemia Anemia, unspecified type Pancreatic insufficiency Other specified disease of pancreas [facility] Diagnosis 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 deficiency- Primary Other vitamin B12 deficiency anemia Pancreatic insufficiency Other specified disease of pancreas [facility]* Diagnosis Anemia, 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 Other vitamin B12 deficiency anemia Tachycardia Tachycardia, unspecified [facility]* Diagnosis Anemia, 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 Other vitamin B12 deficiency anemia [facility]* Diagnosis Anemia, 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 Other vitamin B12 deficiency anemia documented in this encounter [facility] general Narrative - Reported* Type Description Date Medical History diverticulitis Surgical History hysterectomy Surgical History Procedure:cholecystectomy Surgical History cholecystectomy Surgical History Procedure:Cholecystectomy 2011 Surgical History breast biopsy Surgical History Procedure:colonoscopy;Disease:D iverticulosis 11/16/2015 Surgical History Procedure:cholecyste ctomy;Disease:Biliary Dyskinesia 2011 Surgical History Procedure:EGD with biopsy;Disea se:Esophagitis 2012 Surgical History Procedure:EGD with biopsy;Disea se:Gastric polyp 2012 Surgical History Procedure:Vaginal hysterectomy 2006 Surgical History Stereotactic Breast biopsy [address] Jonn Thompson [facility] 11/28/2018 Surgical History U/S guided biopsy Left Breast Hospitalization History childbirth [facility] [employer] Other Hospital course Narrative No data available for this section [facility] Hospital Discharge instructions No data available for this section [facility] No data available for this section [facility] Referred by: Rosa Shearer CNP [facility] Summary Purpose Family History No Family History Records FoundNo Family History Records FoundNo Family History Records Found No data available for this section No data available for this section No data available for this section No Family History Records FoundNo Family History Records Found No data available for this section No Family History Records FoundNo Family History Records Found Advance Directives No Advanced Directives Records FoundNo Advanced Directives Records FoundNo Advanced Directives Records FoundNo Advanced Directives Records FoundNo Advanced Directives Records FoundNo Advanced Directives Records FoundNo Advanced Directives Records Found Medications Administered Section Inactive Administered Medications - up to 3 most recent administrations Medication Order MAR Action Action Date Dose Rate Site cyanocobalamin 1,000 mcg injection 1,000 mcg, INTRAMUSCULAR, ONCE, 1 dose, On Sat03/13/23 at 1230 Given 03/13/2023 12:30 PM EDT 1,000 mcg Deltoid, Right Inactive Administered Medications - up to 3 most recent administrations Medication Order MAR Action Action Date Dose Rate Site cyanocobalamin 1,000 mcg injection 1,000 mcg, INTRAMUSCULAR, ONCE, 1 dose, On Sat03/22/23 at 1430 Given 03/22/2023 2:31 PM EDT 1,000 mcg Deltoid, Right Inactive Administered Medications - up to 3 most recent administrations Medication Order MAR Action Action Date Dose Rate Site cyanocobalamin 1,000 mcg injection 1,000 mcg, INTRAMUSCULAR, ONCE, 1 dose, On Sat03/29/23 at 1430 Given 03/29/2023 2:20 PM EDT 1,000 mcg Deltoid, Right Inactive Administered Medications - up to 3 most recent administrations Medication Order MAR Action Action Date Dose Rate Site cyanocobalamin 1,000 mcg injection 1,000 mcg, INTRAMUSCULAR, ONCE, 1 dose, On Sat04/05/23 at 1000 Given 04/05/2023 10:30 AM EDT 1,000 mcg Deltoid, Right Inactive Administered Medications - up to 3 most recent administrations Medication Order MAR Action Action Date Dose Rate Site cyanocobalamin 1,000 mcg injection 1,000 mcg, INTRAMUSCULAR, ONCE, 1 dose, On Sat06/05/23 at 1530 Given 06/05/2023 3:30 PM EDT 1,000 mcg Deltoid, Right Inactive Administered Medications - up to 3 most recent administrations Medication Order MAR Action Action Date Dose Rate Site cyanocobalamin 1,000 mcg injection 1,000 mcg, INTRAMUSCULAR, ONCE, 1 dose, On Sat07/03/23 at 1400 Given 07/03/2023 2:04 PM EST 1,000 mcg Deltoid, Right Additional Source Comments INFORMATION SOURCE (unrecogn ized section and content) DATE CREATED AUTHOR 10/09/2021 [facility] DATE CREATED AUTHOR AUTHOR'S ORGANIZ ATION 10/17/2021 [facility] Special[facility] DATE CREATED AUTHOR AUTHOR'S ORGANIZ ATION 12/09/2022 [facility] DATE CREATED AUTHOR AUTHOR'S ORGANIZ ATION 09/06/2023 [facility] dical Specialists EPIC DATE CREATED AUTHOR AUTHOR'S ORGANIZ ATION 10/04/2023 [facility] DATE CREATED AUTHOR AUTHOR'S ORGANIZ ATION 10/13/2023 [facility] DATE CREATED AUTHOR AUTHOR'S ORGANIZ ATION 11/09/2023 [facility] Care Team (unrecognized sect ion and content) [employer] Internship Relationship Specialty Start Date End Date Nurys Boggs [address] [facility] [address] [place] [address] PCP - General Family Medicine 11/05/18 Nurys Boggs [address] [facility] [address] [place] [address] Referring Family Medicine 11/05/18 [employer] Internship Relationship Specialty Start Date End Date Nurys Boggs [address] [facility] [address] [place] [address] PCP - General Family Medicine 11/05/18 Nurys Boggs [address] [facility] [address] [place] [address] Referring Family Medicine 11/05/18 [employer] Internship Relationship Specialty Start Date End Date Nurys Boggs [address] [facility] [address] [place] [address] PCP - General Family Medicine 11/05/18 Nurys Boggs [address] [facility] [address] [place] [address] Referring Family Medicine 11/05/18 [employer] Internship Relationship Specialty Start Date End Date Nurys Boggs [address] [facility] [address] [place] [address] PCP - General Family Medicine 11/05/18 Nurys Boggs [address] [facility] [address] [place] [address] Referring Family Medicine 11/05/18 [employer] Internship Relationship Specialty Start Date End Date Nurys Boggs [address] [facility] [address] [place] [address] PCP - General Family Medicine 11/05/18 Nurys Boggs [address] [facility] [address] [place] [address] Referring Family Medicine 11/05/18 [employer] Internship Relationship Specialty Start Date End Date Nurys Boggs MD [address] [facility] [address] [place] [address] PCP - General Family Medicine 11/05/18 Nurys Boggs MD [address] [address] [place] [address] Referring Family Medicine 11/05/18 [employer] Internship Relationship Specialty Start Date End Date Nurys Boggs MD [address] [place] [address] PCP - General Family Medicine 11/05/18 Nurys Boggs MD [address] [address] [place] [address] Referring Family Medicine 11/05/18 [employer] Internship Relationship Specialty Start Date End Date Nurys Boggs MD [address] [facility] [address] [place] [address] PCP - General Family Medicine 11/05/18 Nurys Boggs MD [address] [facility] [address] [place] [address] Referring Family Medicine 11/05/18 [employer] Internship Relationship Specialty Start Date End Date Nurys Boggs MD [address] [address] [place] [address] PCP - General Family Medicine 11/05/18 Nruys Boggs MD [address] [place] [address] Referring Family Medicine 11/05/18 [employer] Internship Relationship Specialty Start Date End Date Nurys Boggs MD [address] [place] [address] PCP - General Family Medicine 11/05/18 Nurys Boggs MD [address] [place] [address] Referring Family Medicine 11/05/18 [employer] Internship Relationship Specialty Start Date End Date Nurys Boggs MD [address] [place] [address] PCP - General Family Medicine 11/05/18 Nurys Boggs MD [address] [place] [address] Referring Family Medicine 11/05/18 [employer] Internship Relationship Specialty Start Date End Date Nurys Boggs MD [address] [facility] [address] [place] [address] PCP - General Family Medicine 11/05/18 Nurys Boggs MD [address] [facility] [address] [place] [address] Referring Family Medicine 11/05/18 [employer] Internship Relationship Specialty Start Date End Date Nurys Boggs MD [address] [facility] [address] [place] [address] PCP - General Family Medicine 11/05/18 Nurys Boggs MD [address] [facility] [address] [place] [address] Referring Family Medicine 11/05/18 REASON FOR VISIT (unrecogniz ed section and content) Reason Comments B12 Deficiency New patient consult DCIS Reason Comments Records Faxed To [facility] Reason Comments Anemia Reason Comments Nutrition Assessment Reason Comments Syncope Source Comments (unrecognize d section and content) In the event this informatio n is protected by the Federal Confidentiality of Alcohol and Drug Abuse Patient Records regulations: The Federal rules restrict any use of the information to criminally investigate or prosecute any alcohol or drug abuse patient.[facility] the event this information is protected by the Federal Confidentiality of Alcohol and Drug Abuse Patient Records regulations: The Federal rules restrict any use of the information to criminally investigate or prosecute any alcohol or drug abuse patient.[facility] the event this information is protected by the Federal Confidentiality of Alcohol and Drug Abuse Patient Records regulations: The Federal rules restrict any use of the information to criminally investigate or prosecute any alcohol or drug abuse patient.[facility] the event this information is protected by the Federal Confidentiality of Alcohol and Drug Abuse Patient Records regulations: The Federal rules restrict any use of the information to criminally investigate or prosecute any alcohol or drug abuse patient.[facility] the event this information is protected by the Federal Confidentiality of Alcohol and Drug Abuse Patient Records regulations: The Federal rules restrict any use of the information to criminally investigate or prosecute any alcohol or drug abuse patient.[facility] System[facility] the event this information is protected by the Federal Confidentiality of Alcohol and Drug Abuse Patient Records regulations: The Federal rules restrict any use of the information to criminally investigate or prosecute any alcohol or drug abuse patient.[facility] the event this information is protected by the Federal Confidentiality of Alcohol and Drug Abuse Patient Records regulations: The Federal rules restrict any use of the information to criminally investigate or prosecute any alcohol or drug abuse patient.[facility] the event this information is protected by the Federal Confidentiality of Alcohol and Drug Abuse Patient Records regulations: The Federal rules restrict any use of the information to criminally investigate or prosecute any alcohol or drug abuse patient.[facility] the event this information is protected by the Federal Confidentiality of Alcohol and Drug Abuse Patient Records regulations: The Federal rules restrict any use of the information to criminally investigate or prosecute any alcohol or drug abuse patient.[facility] System[facility] the event this information is protected by the Federal Confidentiality of Alcohol and Drug Abuse Patient Records regulations: The Federal rules restrict any use of the information to criminally investigate or prosecute any alcohol or drug abuse patient.[facility] the event this information is protected by the Federal Confidentiality of Alcohol and Drug Abuse Patient Records regulations: The Federal rules restrict any use of the information to criminally investigate or prosecute any alcohol or drug abuse patient.[facility] the event this information is protected by the Federal Confidentiality of Alcohol and Drug Abuse Patient Records regulations: The Federal rules restrict any use of the information to criminally investigate or prosecute any alcohol or drug abuse patient.[facility] System[facility] the event this information is protected by the Federal Confidentiality of Alcohol and Drug Abuse Patient Records regulations: The Federal rules restrict any use of the information to criminally investigate or prosecute any alcohol or drug abuse patient.[facility] the event this information is protected by the Federal Confidentiality of Alcohol and Drug Abuse Patient Records regulations: The Federal rules restrict any use of the information to criminally investigate or prosecute any alcohol or drug abuse patient.[facility] Inactive Administered Medications - up to 3 most recent administrations Administered Medications (un recognized section and content) Medication Order MAR Action Action Date Dose Rate Site cyanocobalamin 1,000 mcg injection 1,000 mcg, INTRAMUSCULAR, ONCE, 1 dose, On [place] 10/10/23 at 1400 Given 10/10/2023 2:02 PM EST 1,000 mcg Deltoid, Right Inactive Administered Medications - up to 3 most recent administrations Medication Order MAR Action Action Date Dose Rate Site cyanocobalamin 1,000 mcg injection 1,000 mcg, INTRAMUSCULAR, ONCE, 1 dose, On [place] 11/07/23 at 1400 Given 11/07/2023 2:00 PM EDT 1,000 mcg Deltoid, Right FOR RECORDS PERTAINING TO PATIENTS WHO ARE OR HAVE BEEN ENROLLED IN A CHEMICAL DEPENDENCY/SUBSTANCEABUSE PROGRAM, SOME INFORMATION MAY BE OMITTED. This clinical summary was aggregated from multiple sources. Caution should be exercised in using it in the provision of clinical care. This summary normalizes information from multiple sources, and as a consequence, information in this document may materially change the coding, format and clinical context of patient data. In addition, data may be omitted in some cases. CLINICAL DECISIONS SHOULD BE BASED ON THE PRIMARY CLINICAL RECORDS. [facility]. provides no warranty or guarantee of the accuracy or completeness of information in this document.
== END 2023-12-02 09:54 | disposition home or self-care (01) ==
LOC: CT 09:53
PROVIDERS: PCP Physician Assistant; Visit Provider Physician Assistant
DX: F17.210 Nicotine dependence, cigarettes, uncomplicated (principal); F17.200 Nicotine dependence, unspecified, uncomplicated; E28.39 Other primary ovarian failure; M85.80 Other specified disorders of bone density and structure, unspecified site
CPT/HCPCS: 71271; 77080

== ENCOUNTER 2023-12-26 14:19 | Outpatient (OUT) | payer MEDICARE, OTHER, SELFPAY ==
--- NOTE | 2023-12-26 14:26 | XR_ITS ---
The [address] [address] Patient Name: GINNY CESPEDES MRN: [id number] date: 1955 Sex: F Assigned Patient Location: [facility] Current Patient Location: [facility] Accession/Order Number: [id number] Exam Date: 12/26/2023 14:30 Report Date: 12/26/2023 15:05 At the request of: AGGIE PRINCE Procedure: XR knee RT 4V PROCEDURE: XR knee RT 4V COMPARISON: None. HISTORY: Acute pain of right knee M25.561 FINDINGS: BONES:No fracture, acute abnormality, or significant arthropathy. SOFT TISSUES:Negative. No visible soft tissue swelling. EFFUSION:None visible. OTHER: Negative. XR/XR knee RT 4V IMPRESSION: No acute radiographic abnormality Electronically authenticated by: ALEXANDRO DEL VALLE Date: 12/26/2023 15:05
== END 2023-12-26 14:20 | disposition home or self-care (01) ==
LOC: RAD 14:21
PROVIDERS: PCP Physician Assistant; Visit Provider Nurse Practitioner Family
DX: M25.561 Pain in right knee (principal)
CPT/HCPCS: 73564

== ENCOUNTER 2024-02-05 12:53 | Outpatient (OUT) | payer MEDICARE, OTHER, SELFPAY ==
[2024-02-05 14:05] LABS: Free T3 2.53 pg/mL (2.18-3.98); Thyroid Stimulating Hormone 2.836 uIU/mL (0.358-3.740)
[2024-02-05 14:35] LABS: Free T4 1.11 ng/dL (0.76-1.46)
== END 2024-02-05 12:54 | disposition home or self-care (01) ==
LOC: LAB 12:55
PROVIDERS: PCP Physician Assistant; Visit Provider Internal Medicine
DX: E06.3 Autoimmune thyroiditis (principal)
CPT/HCPCS: 36415; 84439; 84443; 84481

== ENCOUNTER 2024-03-17 11:53 | Outpatient (OUT) | payer MEDICARE, OTHER, SELFPAY ==
--- NOTE | 2024-03-17 11:57 | XR_ITS ---
[address] [address] Patient Name: GINNY CESPEDES MRN: [id number] date: 1955 Sex: F Assigned Patient Location: [facility] Current Patient Location: Accession/Order Number: [id number] Exam Date: 03/17/2024 12:00 Report Date: 03/18/2024 07:39 At the request of: NURYS BOGGS Procedure: XR knee LT 2V PROCEDURE: XR knee LT 2V COMPARISON: None. HISTORY: Fall In Home, Contusion Left Knee, Left Knee Pain FINDINGS: BONES:No acute fracture or dislocation. Minimal degenerative changes with marginal osteophyte formation SOFT TISSUES:Negative. No visible soft tissue swelling. EFFUSION:None visible. OTHER: Negative. XR/XR knee LT 2V IMPRESSION: Minimal osteoarthritis Electronically authenticated by: ALEXANDRO DEL VALLE Date: 03/18/2024 07:39
== END 2024-03-17 11:54 | disposition home or self-care (01) ==
LOC: RAD 11:54
PROVIDERS: PCP Physician Assistant; Visit Provider Family Medicine
DX: M25.562 Pain in left knee (principal); W19.XXXA Unspecified fall, initial encounter; Y92.009 Unspecified place in unspecified non-institutional (private) residence as the place of occurrence of the external cause; S80.02XA Contusion of left knee, initial encounter
CPT/HCPCS: 73560

== ENCOUNTER 2024-06-05 12:55 | Outpatient (OUT) | payer MEDICARE, OTHER, SELFPAY ==
--- NOTE | 2024-06-05 12:57 | MM_ITS ---
Patient Name: GINNY CESPEDES MR#: [id number] : 1955 Exam Date: 06/05/2024 Ordering Doctor: DR HONORIO COLON RADIOLOGY REPORT PROCEDURE: MM TOMOSYNTHESIS SCREENING BI COMPARISON: MG MAMM DIAGNOSTIC 3D TAMMY CAD, 05/29/2022. MM TOMOSYNTHESIS SCREENING BI, 06/04/2023. INDICATIONS: Screening Calculator Name NCI Breast Cancer Risk Assessment Tool 5 Year Breast Cancer Risk n/a% Lifetime Breast Cancer Risk n/a% Personal Breast Cancer Yes, DCIS right breast with radiation 2019 Personal Ovarian Cancer No Treatments Radiation Family Cancers Mother with breast cancer at age 59; Sister with colon cancer at age ~54. LOCATION: [facility] BREAST COMPOSITION: The breasts are extremely dense, which lowers the sensitivity of mammography. FINDINGS: DIAGNOSTIC CATEGORY 2--BENIGN FINDING. NO CHANGE FROM COMPARISON. Scattered benign-appearing calcifications are present. Scattered benign-appearing lymph nodes are present. RIGHT BREAST: No significant suspicious finding. LEFT BREAST: No significant suspicious finding. RECOMMENDATIONS: ROUTINE MAMMOGRAM AND CLINICAL EVALUATION IN 12 MONTHS. PLEASE NOTE: A NORMAL MAMMOGRAM DOES NOT EXCLUDE THE POSSIBILITY OF BREAST CANCER. A CLINICALLY SUSPICIOUS PALPABLE LUMP SHOULD BE BIOPSIED. Dictated by: Chuck Melton MD on 06/08/2024 at 09:05 Approved by: Chuck Melton MD on 06/08/2024 at 09:07
--- OUTSIDE RECORDS SUMMARY | 2024-06-05 13:10 | XMS_ITS | CCD ---
Author Organization [facility] CliniSyor Care Team Providers Care Uptwist Spinner Name Role Phone NURYS BOGGS Primary Care Physician [phone] KIMBERLEY HAMEED Admitting Unavailable SALAM, KIMBERLEY Attending [...] Unavailable AMBROSE, DR NUNO Primary Care Unavailable Zieber, Chaparro Consulting Unavailable HEMMER, DR HONORIO Shaikh Consulting Unavailable Yvonne Mcghee Unavailable Nurys Boggs Primary Care Provider Nurys Boggs Unavailable Nurys Boggs MD Primary Care Provider [phone] Nurys Boggs MD Unavailable Nurys Boggs Primary Care Unavailable Beverley Ngo Attending Unavailable Beverley Ngo Admitting Unavailable Nurys Boggs MD Primary Care Provider Rosa Shearer Attending Unavailable Rosa Shearer Admitting Unavailable Rosa Shearer Attending Unavailable Manfred, Rosa A Attending Unavailable Liborio Garcia Attending Unavailable Manfred, Rosa A Attending Unavailable Manfred, Rosa A Attending Unavailable Parishmini, Agnieszka Talal Admitting Unavaila ble Sarmini, Aaron Talal Attending Unavaila ble Sarmini, Aaron Talal Referring Unavaila ble Manfred, Rosa A Admitting Unavailable Manfred, Rosa A Attending Unavailable Liborio Garcia Attending Unavailable AMBROSENURYS Attending Unavailable HEMMERHONORIO Attending Unavailable HEMMERHONORIO Attending Unavailable SURESHYULIA Attending Unavailable SURESHYULIA Attending Unavailable HEMMER, HONORIO Shaikh Attending Unavailable AMBROSE, NURYS Shaikh Attending Unavailable HEMMER, HONORIO Shaikh Attending Unavailable HEMMERHONORIO Attending Unavailable AMBROSE, [facility] Primary Care Unavailable ABHYANKAR, MAIKEL Referring Unavailable JYOTI SHELTON Attending Unavailabl e AMBROSE, [facility] Primary Care Unavailable ABHYANKAR, MAIKEL Referring Unavailable [facility] Primary Care Unavailable ABHYANKAR, MAIKEL Referring Unavailable ABHYANKAR, MAIKEL Attending Unavailable AMBROSE, [facility] Primary Care Unavailable ABHYANKAR, MAIKEL Referring Unavailable AMBROSE, [facility] Primary Care Unavailable ABHYANKAR, MAIKEL Referring Unavailable [facility] Primary Care Unavailable ABHYANKAR, MAIKEL Referring Unavailable AMBROSE, [facility] Primary Care Unavailable ABHYANKAR, MAIKEL Referring Unavailable [facility] Primary Care Unavailable AMBROSE, [facility] Primary Care Unavailable ABHYANKAR, MAIKEL Referring Unavailable AMBROSE, [facility] Primary Care Unavailable ABHYANKAR, MAIKEL Referring Unavailable AMBROSE, [facility] Primary Care Unavailable ABHYANKAR, MAIKEL Referring Unavailable AMBROSE, [facility] Primary Care Unavailable ABHYANKAR, MAIKEL Referring Unavailable AMBROSE, [facility] Primary Care Unavailable ABHYANKAR, MAIKEL Referring Unavailable AMBROSE, [facility] Primary Care Unavailable ABHYANKAR, MAIKEL Referring Unavailable AMBROSE, [facility] Primary Care Unavailable ABHYANKAR, MAIKEL Referring Unavailable ABHYANKAR, MAIKEL Attending Unavailable AMBROSE, [facility]EN [facility] Primary Care Unavailable ABHYANKAR, MAIKEL Referring Unavailable AMBROSE, RUGEN [facility] Primary Care Unavailable ABGOLDENAR, MAIKEL Attending Unavailable AMBROSE RUGEN [facility] Primary Care Unavailable ABHYANKAR, MAIKEL Referring Unavailable AMBROSE, RUGEN [facility] Primary Care Unavailable ABHYANKAR, MAIKEL Referring Unavailable AMBROSE, RUGEN [facility] Primary Care Unavailable ABHYANKAR, MAIKEL Referring Unavailable Allergies Allergy Classification Reported Allergen(s) Allergy Type Date of Onset Reaction(s) Facility Aminoketones (2 sources) buPROPion Drug Allergy [address] [facility] (20 sources) Barium Sulfate; Translations: [barium sulfate] Drug Allergy Nausea and vomiting (disorder) [facility] (20 sources) buPROPion; Translations: [bupropion] Drug Allergy 5 Shortness of Breath [facility] (4 sources) buPROPion; Translations: [Wellbutrin] Drug Allergy [address] [facility] (1 source) buPROPion Drug Allergy [address] [facility] (20 sources) buPROPion; Translations: [BUPROPION HCL (SMOKING DETER)] Drug Allergy [address] [facility] (1 source) buPROPion Drug Allergy 3 [facility] Medications Current Medications Medication Drug Class(es) Dates Sig (Normalized) Sig (Original) amylase 626210 unt / lipase 39988 unt / protease 51236 unt delayed release oral capsule (14 sources) Start: 02-22-2023 End: 05-23-2023 take 1 capsule by mouth three times daily at mealtime Creon 24,000 units oral delayed release capsule = 1 cap(s), Oral, TID, with each meal., X 90 day(s), # 270 cap(s), Refills(s) 0, Pharmacy: [facility]/pharmacy #[id number], 152, cm, 02/22/23 12:18:00 EDT, Height/Length Dosing, 53.9, kg, 02/22/23 12:18:00 EDT, Weight Dosing Start Date: 02/22/23 Stop Date: 05/23/23 Status: Ordered Start: 11-22-2022 Creon Refills( s) 0 Start Date: 11/22/22 Status: Ordered Ascorbic Acid (20 sources) Vitamin C Start: 04-25-2021 Vitamin C Daily, Refills(s) 0 Start Date: 04/25/21 Status: Ordered atropine sulfate 0.025 mg / diphenoxylate hydrochloride 2.5 mg oral tablet (1 source) Anticholinergic, Cholinergic Muscarinic Antagonist, Antidiarrheal Start: 05-06-2024 take 2 tablets by mouth twice daily Diphenoxylate-At ropine (Lomotil) 2.5-0.025 mg tablet Active 2 TAB PO Twice daily 120 May 06, 2024 12:00am Align (8 sources) Start: 06-26-2023 Align Refills(s) 0 Start Date: 06/26/23 Status: Ordered Start: 03-26-2023 End: 06-24-2023 take 1 capsule by mouth once daily Align 4 mg oral capsule 4 mg = 1 cap(s), Oral, Daily, X 90 day(s), # 90 cap(s), Refills(s) 0, Pharmacy: [facility]/pharmacy #[id number], 152, cm, 03/26/23 12:48:00 EDT, Height/Length Dosing, 53.4, kg, 03/26/23 12:48:00 EDT, Weight Dosing Start Date: 03/26/23 Stop Date: 06/24/23 Status: Ordered Bruce/Mag 2001 Plus Vitamins C and D (20 sources) Start: 08-16-2020 Bruce/Mag 2000 P isidoro Vitamins C and D Start Date: 08/16/20 Status: Ordered Calcium (1 source) Phosphate Binder, Calcium Calcium Active Calcium Carbonate (20 sources) calcium carbonat e (CALCIUM 500 ORAL) Take by mouth. Active calcium carbonat e (CALCIUM 500 ORAL) Take by mouth. 0 Active Comment on above: Take by mouth. Fiber Tab (6 sources) Start: 3 Fiber Tabs Refills(s) 0 Start Date: 06/26/23 Status: Ordered cephalexin 500 mg oral capsule (2 sources) Cephalosporin Antibacterial Start: 3 take 1 capsule by mouth every eight hours Cephalexin 500 MG 1 capsule Orally every 8 hrs for 7 days Jan, Active take [address] [facility] every twelve hours Cephalexin 500 MG 1 capsule Orally every 12 hrs Not-Taking chlordiazePOXIDE hydrochloride 5 mg / clidinium bromide 2.5 mg oral capsule (11 sources) Anticholinergic, Benzodiazepine Start: 01-25-2022 Librax 5 mg-2.5 mg Cap 2 cap(s), Oral, TIDAC, 60 cap(s), Refill(s) 3, [facility]/pharmacy #[id number], 152, cm, 01/25/22 13:43:00 EDT, Height/Length Dosing, 54, kg, 01/25/22 13:43:00 EDT, Weight Dosing Start Date: 01/25/22 Status: Ordered cholecalciferol 0.025 mg oral capsule (20 sources) Vitamin D take 1 capsule by mouth once daily Cholecalciferol, Vitamin D3, (VITAMIN D) 1,000 unit cap Take 1,000 Units by mouth once daily. Active Comment on above: Take 1,000 Units by mouth once daily. cholestyramine resin 4000 mg powder for oral suspension (17 sources) Bile Acid Sequestrant Start: 10-11-2023 cholestyramine 4 g/9 g Oral Pwdr Refill(s) 0 Start Date: 10/11/23 Status: Ordered Start: 10-11-2023 cholestyramine 4 g/9 g Oral Pwdr Refill(s) 0 Start Date: 10/11/23 Status: Ordered Start: 06-26-2023 End: 09-24-2023 take 4 g by mouth once daily Questran 4 g/9 g oral pow gauri 4 gm, Oral, Daily, dissolve in water or juice, X 90 day(s), # 60 EA, Refills(s) 0, Pharmacy: [facility]/pharmacy #[id number], 152, cm, 06/26/23 12:45:00 EDT, Height/Length Dosing, 53.3, kg, 06/26/23 12:45:00 EDT, Weight Dosing Start Date: 06/26/23 Stop Date: 09/24/23 Status: Ordered Start: 06-19-2022 End: 12-16-2022 Questran 4 g/9 g oral powder 1/4 packet, Oral, Daily, X 90 day(s), # 60 EA, Refills(s) 1, [id number], cm, 06/19/22 12:56:00 EDT, Height/Length Dosing, 53.5, kg, 06/19/22 12:56:00 EDT, Weight Dosing Start Date: 06/19/22 Stop Date: 12/16/22 Status: Ordered Start: 04-25-2021 Questran 4 g/9 g oral powder = 1 packet(s), Oral, Daily, # 30 EA, Refills(s) 11, [id number] 152, cm, 04/25/21 8:50:00 EDT, Height/Length Dosing, 52, kg, 04/25/21 8:50:00 EDT, Weight Dosing Start Date: 04/25/21 Status: Ordered Start: 04-25-2021 Questran 4 g/9 g oral powder = 1 packet(s), Oral, Daily, # 30 EA, Refills(s) 11, [id number] 152, cm, 04/25/21 8:50:00 EDT, Height/Length Dosing, 52, kg, 04/25/21 8:50:00 EDT, Weight Dosing Start Date: 04/25/21 Status: Ordered ciprofloxacin 500 mg oral tablet (1 source) Quinolone Antimicrobial Start: 04-17-2022 End: 04-27-2022 take 1 tablet by mouth twice daily Cipro 500 mg Tab 500 mg = 1 tab(s), Oral, BID, X 10 day(s), # 20 tab(s), Refills(s) 0, [id number] 152, cm, 04/17/22 12:23:00 EDT, Height/Length Dosing, 52.9, kg, 04/17/22 12:23:00 EDT, Weight Dosing Start Date: 04/17/22 Stop Date: 04/27/22 Status: Ordered colesevelam hydrochloride 625 mg oral tablet (1 source) Bile Acid Sequestrant Start: 04-06-2024 take 3 tablets by mouth twice daily Welchol 625 mg Tab 1,875 mg = 3 tab(s), Oral, BID, # 180 tab(s), Refills(s) 0, Pharmacy: [facility]/pharmacy #[id number], 152, cm, 04/06/24 12:35:00 EDT, Height/Length Dosing, 56, kg, 04/06/24 12:35:00 EDT, Weight Dosing Start Date: 04/06/24 Status: Ordered dicyclomine hydrochloride 10 mg oral [...] A DAY for 30 day(s) Feb, Not-Taking enzymes,digestive (DIGESTIVE ENZYMES ORAL) (20 sources) enzymes,digestiv e (DIGESTIVE ENZYMES ORAL) Take by mouth. Active enzymes,digestiv e (DIGESTIVE ENZYMES ORAL) Take by mouth. 0 Active Comment on above: Take by mouth. Extra Strength Tylenol Aches and Strains (20 sources) Start: 11-25-2018 take 1 tablet by mouth every six hours Extra Strength Tylenol Aches and Strains 1 tablet, Oral, q6hr Pain, Refill(s) 0 Start Date: 11/25/18 Status: Ordered hyoscyamine sulfate 0.125 mg oral tablet (10 sources) Start: 04-06-2024 take 1 tablet by mouth four times daily as needed for muscle spasms Levsin 0.125 mg SL Tab 0.125 mg = 1 tab(s), Oral, QID, PRN for spasm, # 40 tab(s), Refills(s) 0, Pharmacy: [facility]/pharmacy #[id number], 152, cm, 04/06/24 12:35:00 EDT, Height/Length Dosing, 56, kg, 04/06/24 12:35:00 EDT, Weight Dosing Start Date: 04/06/24 Status: Ordered Start: 10-06-2020 End: 03-12-2024 take 0.375 mg by mouth once daily Hyoscyamine Sulfate Discontinued 0.375 MG PO Daily October 06, 2020 1:00am March 12, 2024 2:53pm Start: 04-21-2019 take 1 mg by mouth e very twelve hours hyoscyamine 0.375 mg ER Tab mg tab(s), Oral, q12hr, Refills(s) 0 Start Date: 01/25/22 Status: Ordered levothyroxine sodium 0.05 mg oral tablet (20 sources) l-Thyroxine Start: 03-12-2024 Levothyroxine Active 50 MCG PO Daily March 12, 2024 12:00am Mondays and take 75mcg. All other days 50mcg Start: 02-07-2023 levothyroxine (SYNTHROID) 50 mcg tablet Take 50 mcg by mouth once daily. 75mcg 2 days a week 02/07/2023 Active Start: 10-10-2022 take 1 tablet [...] week loperamide hydrochloride 2 mg oral capsule (20 sources) Opioid Agonist Start: 04-04-2019 loperamide (IMODIUM) 2 mg cap(s) every other day. 2 04/04/2019 Active Start: 04-03-2019 End: 03-12-2024 take 2 mg by mouth once daily Loperamide Discontinued 2 MG PO Daily October 06, 2020 1:00am March 12, 2024 2:53pm Comment on above: every other day. mecobalamin (2 sources) Start: 4 Mecobalamin (Vitamin B12) Active MCG IM March 12, 2024 12:00am Multivitamin preparation (1 source) Multivitamin Act tino Patient Specific Meds (7 sources) Start: 3 Patient Specific Meds OTC- Pancreatic digestive enzymes. Creon was too expensive. Start Date: 03/26/23 Status: Ordered sertraline 50 mg oral tablet (20 sources) Serotonin Reuptake Inhibitor Start: 9 take 50 mg by mouth once daily at bedtime Sertraline Active 50 MG PO Daily at bedtime October 06, 2020 1:00am Comment on above: Take 50 mg by mouth once daily. Vitamin D3 (20 sources) Start: Vitamin D3 Refills(s) 0 Start Date: 04/25/21 Status: Ordered Completed/Discontinued Medications Medication Drug Class(es) Dates Sig (Normalized) Sig (Original) acetaminophen 325 mg / HYDROcodone bitartrate 5 mg oral tablet (2 sources) Opioid Agonist Start: 10-06-2020 End: 03-12-2024 take 1 tablet by mouth twice daily Hydrocodone-Aceta minophen Discontinued 1 TAB PO Twice daily October 06, 2020 1:00am March 12, 2024 2:53pm diazePAM 5 mg oral tablet (2 sources) Benzodiazepine Start: 10-20-2020 End: 03-12-2024 take 1 tablet by mouth every eight hours Diazepam (Valium) 5 mg tablet Discontinued 5 MG PO Every 8 hours 30 October 20, 2020 1:00am March 12, 2024 2:52pm meloxicam 15 mg oral tablet (1 source) Nonsteroidal Anti-inflammatory Drug Start: 02-01-2021 take 1 tablet by mouth every twenty-four hours Meloxicam 15 MG 1 tablet Orally Once a day for 30 day(s) Jan, Not-Taking oxyCODONE hydrochloride 10 mg oral tablet (3 sources) Opioid Agonist Start: 11-28-2020 take 1 tablet by mouth every six hours oxyCODONE HCl 10 MG 1 tablet as needed Orally every 6 hrs for 14 days Nov, Not-Taking Start: 10-20-2020 End: 03-12-2024 take 5 mg by mouth every four hours Oxycodone Discontinued 5 MG PO Q4H 70 October 20, 2020 March 12, 2024 2:53pm Triamcinolone (2 sources) Corticosteroid Start: 04-10-2018 KENALOG - 10 m g Mar, 40 mg Start: 01-24-2016 Kenalog -40 mg December, 40 mg vitamin b12 1 mg/ml injectable solution (5 sources) Vitamin B12 Start: 05-18-2024 End: 05-18-2024 inject 1 dose by intramuscular injection once 1,000 mcg, INTRAMUSCULAR, ONCE, 1 dose, On 05/18/24 at 1330 Start: 04-20-2024 End: 04-20-2024 inject 1 dose by intramuscular injection once 1,000 mcg, INTRAMUSCULAR, ONCE, 1 dose, On 04/20/24 at 1400 Start: 03-23-2024 End: 03-23-2024 cyanocobalamin 1,000 mcg inj ection Start: 01-30-2024 End: 01-30-2024 cyanocobalamin 1,000 mcg inj ection Start: 01-02-2024 End: 01-02-2024 cyanocobalamin 1,000 mcg inj ection Problems Active Problems Problem Classification Problem Date Documented Da te Episodic/Chronic Abdominal pain (20 sources) Lower abdominal pain; Translations: [Lower abdominal pain, unspecified] Onset: 01-24-2022 Episodic Administrative/social admission (20 sources) Seen by pain management service 11-25-2018 Episodic Comment on above: for back for back Anxiety disorders (20 sources) Anxiety 11-17-2018 Chronic Cancer of breast (20 sources) Carcinoma of breast ; Translations: [Malignant tumor of breast ] Onset: 06-11-2019 11-17-2018 Chronic Comment on above: right right Cardiac dysrhythmias (1 source) Tachycardia; Translations: [Tachycardia, unspecified] 07-31-2023 Episodic Chronic obstructive pulmonary disease and bronchiectasis (2 sources) Emphysematous bronchitis; Translations: [Chronic obstructive pulmonary disease, unspecified] Chronic Deficiency and other anemia (20 sources) Anemia; Translations: [Anemia, unspecified] Onset: 03-13-2023 03-13-2023 Episodic Deficiency and other anemia (20 sources) 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 B>12< deficiency; Translations: [Other megaloblastic anemias, not elsewhere classified] Onset: 03-13-2023 03-13-2023 Episodic Diverticulosis and diverticulitis (20 sources) Diverticular disease; Translations: [Diverticulosis of intestine, part unspecified, without perforation or abscess without bleeding] 05-25-2021 Chronic Genitourinary symptoms and ill-defined conditions (1 source) Microscopic hematuria; Translations: [Other microscopic hematuria] Episodic Hemorrhoids (20 sources) Internal hemorrhoids 05-25-2021 Episodic Intestinal infection (20 sources) Small bowel bacterial overgrowth syndrome 01-25-2022 Episodic Malaise and fatigue (2 sources) Fatigue; Translations: [Other fatigue] 08-08-2023 Episodic Mood disorders (20 sources) Depressive disorder 11-17-2018 Chronic Nausea and vomiting (1 source) Nausea; Translations: [Nausea] Episodic Noninfectious gastroenteritis (18 sources) Noninfectious enteritis; Translations: [Noninfective gastroenteritis and colitis, unspecified] Onset: 06-19-2022 Episodic Nutritional deficiencies (16 sources) Vitamin B deficiency; Translations: [Deficiency of other specified B group vitamins] Onset: 11-22-2022 Episodic Osteoarthritis (20 sources) Arthritis 08-16-2020 Chronic Other and unspecified benign neoplasm (20 sources) Polyp of colon 05-25-2021 Episodic Other [...] diarrhea] Onset: 01-25-2022 Chronic Other gastrointestinal disorders (8 sources) Intestinal malabsorption; Translations: [Other intestinal malabsorption] Onset: 01-25-2022 Chronic Other gastrointestinal disorders (1 source) Irritable bowel syndrome; Translations: [Irritable bowel syndrome without diarrhea] Chronic Other gastrointestinal disorders (3 sources) Irritable bowel syndrome with diarrhea; Translations: [Irritable bowel syndrome] 03-12-2024 Chronic Other gastrointestinal disorders (2 sources) Disorder of intestine; Translations: [Other specified diseases of intestine] Onset: 01-25-2022 Episodic Other gastrointestinal disorders (20 sources) Non-infective diarrhea 05-25-2021 Episodic Other gastrointestinal disorders (1 source) Diarrhea; Translations: [Diarrhea, unspecified] Episodic Other gastrointestinal disorders (1 source) Urgent desire for stool; Translations: [Fecal urgency] Episodic Other gastrointestinal disorders (1 source) Abdominal bloating; Translations: [Abdominal distension (gaseous)] Episodic Other gastrointestinal disorders (2 sources) Abnormal feces; Translations: [Other fecal abnormalities] Onset: 02-22-2023 Episodic Other gastrointestinal disorders (10 sources) Loose stool 02-22-2023 Episodic Other liver diseases (20 sources) Steatosis of liver; Translations: [Fatty (change of) liver, not elsewhere classified] Onset: 04-13-2022 02-14-2022 Chronic Other liver diseases (1 source) Fatty (change of) liver, not elsewhere classified; Translations: [Other chronic nonalcoholic liver disease] 03-12-2024 Chronic Other liver diseases (1 source) Decreased [...] retroperitoneum] Onset: 01-25-2022 Episodic Residual codes; unclassified (20 sources) Family history of cancer of colon 05-25-2021 Episodic Residual codes; unclassified (8 sources) Family history of malignant neoplasm of digestive organ; Translations: [Family history of malignant neoplasm of digestive organs] Onset: 06-19-2022 Episodic Residual codes; unclassified (1 source) Postmenopausal state; Translations: [Asymptomatic menopausal state] Episodic Skin and subcutaneous tissue infections (1 source) Cellulitis of right finger Episodic Spondylosis; intervertebral disc disorders; other back problems (6 sources) Inflammation of sacroiliac joint; Translations: [Sacroiliitis, not elsewhere classified] 08-07-2023 Chronic Substance-related disorders (20 sources) Smoker; Translations: [Nicotine dependence, cigarettes, uncomplicated] Onset: 11-30-2022 08-16-2020 Chronic Comment on above: Added secondary to d ocumentation in Social History. Added secondary to d ocumentation in Social History. Thyroid disorders (9 sources) Nontoxic goiter, unspecified; Translations: [Hypothyroidism, unspecified] Onset: 07-14-2022 Chronic Unclassified (20 sources) Asymptomatic microscopic hematuria 08-16-2020 Unclassified (20 sources) Finding of sensation of abdomen 02-14-2022 Past or Other Problems Problem Classification Problem Date Documented Da te Episodic/Chronic Conditions associated with dizziness or vertigo (1 source) Dizziness and giddiness; Translations: [Dizziness and giddiness] Onset: 07-31-2023 Episodic Other skin disorders (1 source) Nonscarring hair loss, unspecified; Translations: [NONSCARRING HAIR LOSS UNSPECIFIED] Onset: 07-18-2022 Episodic Pancreatic disorders (not diabetes) (20 sources) Disorder of pancreas; Translations: [Other specified diseases of pancreas] Onset: 10-10-2022 Episodic Results Test Name Value Interpretation Reference Range Facility [facility] 05-18-2024 CNNURSE Nurse Visit (HEMASA) IVONNE CESPEDES ([id number]) 1955 F Date Time Provider Department 05/18/24 2:00 PM [facility] NURSE ERVIN VILLASENOR During your visit today, we recorded the following information about you: Temperature Pulse Respiration Blood pressure 97.3 degrees 71/minute 16/minute 121/80 Oniel Prescott MA 05/18/2024 1:54 PM Signed Patient Identification confirmed: yes. Injection given and documented on OCT per provider order. Oniel Prescott MA Referring Provider: MAIKEL LUNSFORD [[id number]] Allergies As of Date: 05/18/2024 Noted Allergy Reaction BUPROPION 12/22/2004 12 - Shortness of Breath ZYBAN (BUPROPION HCL (SMOKING DET*11/07/2018 12 - Shortness of Breath Date Reviewed: 03/23/2024 Reviewed by: Desirae Sargent MA - Fully Assessed Primary Visit Diagnosis:Anemia, unspecified type [D64.9] Other Visit Diagnosis:Megaloblas tic anemia due to vitamin B12 deficiency [D53.1] Order(s):TREATMENT PARAMETER-NOT NEEDED [[id number]] Order #: [id number]: 1 BCN NURSING COMMUNICATION [[id number]] Order #: [id number]: 1 STANDING [] cyanocobalamin 1,000 mcg injectionDisp: Rfl: Prescriptions as of 05/18/2024 - levothyroxine (SYNTHROID) 50 mcg tablet Take [...] once daily. 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 Injection given and documented on OCT per provider order. Oniel Prescott MA Prescriptions ordered this encounter Disp Refills Start End CYANOCOBALAMIN (VIT B-12) 1,000 MCG/* 05/18/2024 05/18/2024 Route: INTRAMUSCULA Encounter Status:Closed by ONIEL PRESCOTT on 05/18/24 [facility] 04-20-2024 [facility] Nurse Visit (JACKLYN) IVONNE CESPEDES ([id number]) 1955 F Date Time Provider Department 04/20/24 2:00 PM [facility] NURSE ERVIN VILLASENOR During your visit today, we recorded the following information about you: Temperature Pulse Respiration Blood pressure 97.7 degrees 91/minute 16/minute 107/69 Weight 56.6 kg Oniel Prescott MA 04/20/2024 2:19 PM Signed Patient Identification confirmed: yes. Injection given and documented on OCT per provider order. 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 Injection given and documented on OCT per provider order. Oniel Prescott MA Prescriptions ordered this encounter Disp Refills Start End CYANOCOBALAMIN (VIT B-12) 1,000 MCG/* 04/20/2024 04/20/2024 Route: INTRAMUSCULA Encounter Status:Closed by ONIEL PRESCOTT on 04/20/24 Normal [facility] Ambulatory Visit Summaryon 0 - Ambulatory Visit Summary Ambulatory Visit Summary IVONNE CESPEDES :1955 Visit Date:04/06/2024 Ambulatory Visit Instructions Your Diagnosis Fatty liver History of colon polyps Family history of colon cancer Bile salt-induced diarrhea Your Care Team Attending Physician - Jose SOMMERS, Liborio Chin Primary Care Physician - NURYS BOGGS MD This Is Your Medications List colesevelam (Welchol 625 mg Tab) hyoscyamine (Levsin 0.125 mg SL Tab) Contact prescribing physician if questions or concerns acetaminophen-chlorz oxazone (Extra Strength Tylenol Aches and Strains) ascorbic acid (Vitamin C) bifidobacterium infantis (Align) cholecalciferol (Vitamin D3) cholestyramine (cholestyramine 4 g/9 g Oral Pwdr) levothyroxine (levothyroxine 50 mcg (0.05 mg) Tab) sertraline (Zoloft 50 mg Tab) Procedures Performed Colonoscopy (05/16/2021), BREAST BIOPSY (11/25/2018), Tubal ligation (1984), Biopsy of breast, Hysterectomy, Laparoscopic cholecystectomy. Discharge Vitals Heart Rate (Peripheral) 67 Respiratory Rate 16 Blood Pressure 136/87 Height 152 cm Height 60 in Weight 56 kg Weight 123.2 lb BMI 24.24 What to do next Scheduled Follow-Up Appointments Saturday 12:45 PM EST With: Jose SOMMERS, Liborio Chin Where: [facility] [address] [place], [place] [id number]- Medications What How Much When Why Instructions New colesevelam (Welchol 625 mg Tab) 3 Tablets By Mouth 2 times a day Fatty liver History of colon polyps Family history of colon cancer Bile salt-induced diarrhea Pickup at [facility]/pharmacy #[id number] New hyoscyamine (Levsin 0.125 mg SL Tab) 1 Tablets By Mouth 4 times a day as needed for for spasm Fatty liver History of colon polyps Family history of colon cancer Bile salt-induced diarrhea Pickup at [facility]/pharmacy #[id number] Unchanged acetaminophen-chlorz oxazone (Extra Strength Tylenol Aches and Strains) 1 tablet By Mouth Every 6 hours as needed for Pain Contact prescribing physician if questions or concerns Unchanged ascorbic acid (Vitamin C) Every day Contact prescribing physician if questions or concerns Unchanged bifidobacterium infantis (Align) Contact prescribing physician if questions or concerns Unchanged cholecalciferol (Vitamin D3) Contact prescribing physician if questions or concerns Unchanged cholestyramine (cholestyramine 4 g/ 9 g Oral Pwdr) Contact prescribing physician if questions or concerns Unchanged levothyroxine (levothyroxine 50 mcg (0.05 mg) Tab) TAKE 1 TABLET BY MOUTH ONCE EVERY MORNING ON AN EMPTY STOMACH Contact prescribing physician if questions or concerns Unchanged sertraline (Zoloft 50 mg Tab) 1 Tablets By Mouth At bedtime Contact prescribing physician if questions or concerns Pharmacy Information [facility]/pharmacy #[id number]: [address] [place], [place] [id number] [phone] Allergies Wellbutrin (Respiratory distress) Zyban (Respiratory distress) barium sulfate (Nausea and vomiting) Problems Ongoing - Any problem that you are currently receiving treatment for. Abdominal cramping Abnormal CT of the abdomen Arthritis Asymptomatic microscopic hematuria Bile salt-induced diarrhea Breast CA Colon polyp Diverticulosis Family history of colon cancer Fatty liver History of colon polyps Internal hemorrhoids Irritable bowel syndrome with diarrhea Pancreatic insufficiency Small intestinal bacterial overgrowth (SIBO) Smoker Vitamin B12 deficiency Historical - Any problem that you are no longer receiving treatment for. Chronic diarrhea Epigastric pain Loose stools Lower abdominal pain Patient Survey You may receive a survey via text or e-mail asking about your office visit. Please share your experience with us by completing your survey. We appreciate your feedback and thank you for choosing us for your care. Maddie Molina [facility] Gastroenterology Office/Clin ic Noteon 04-06-2024 Gastroenterology Office/Clinic Note Gastroenterology Office/Clinic Note Chief Complaint follow up to fibroscan HPI Staff This is a 68 year old female who presents today for a follow up to Fibroscan. Last office visit w/ Rosa 09/2023 Assessment/Plan 1. 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 Educated to restart Benefiber fiber supplementation daily, continue Questran 1/2 packet BID. 2. Abdominal cramping (R10.9: Unspecified abdominal pain) Improved. 3. Irritable bowel syndrome with diarrhea (K58.0: Irritable bowel syndrome with diarrhea) Improved. 4. Fatty liver (K76.0: Fatty (change of) liver, not elsewhere classified) CT 01/[address] [facility] showed hepatomegaly and hepatic steatosis. Previous FibroScan 03/2022 revealed F0?F1 fibrosis, no steatosis. Previous FibroScan 02/2023 revealed mild steatosis, F0?F1 fibrosis. Will plan to repeat fibroscan 02/2024. 5. Vitamin B12 deficiency (E53.8: Deficiency of other specified B group vitamins) B12 level was less than 50 10/2022. Repeat B12 level 01/2023 had improved at 144- was previously referred to hematology for possible IM B12 injections. 6. History of colon polyps (Z86.010: Personal history of colonic polyps) repeat colonoscopy in 2025. Patient with family history colon cancer?patient's sister. 7. Family history of colon cancer (Z80.0: Family history of malignant neoplasm of digestive organs) Patient with family history colon cancer?patient's sister. FibroScan 03/09/24: CAP 262 E 5.0 F0/F1 Colon 04/2021- repeat 2025 Final Diagnosis (Verified) POLYP, DESCENDING COLON, POLYPECTOMY: HYPERPLASTIC COLONIC MUCOSAL POLYP -FOCAL MUCOSAL LYMPHOID AGGREGATES PRESENT Laboratory Results CBC CMP Basophil Absolute: 0.1 E9/L (01/22/24) A/G Ratio: 1.2 (01/22/24) Basophil Auto: 1.1 % (01/22/24) AGAP: 10 mEq/L (01/22/24) Eos Absolute: 0.2 E9/L (01/22/24) Albumin Lvl: 4 gm/dL (01/22/24) Eos Auto: 3.3 % (01/22/24) Alk Phos: 65 Int._Unit/L (01/22/24) Hct: 40.8 % (01/22/24) ALT: 26 Int._Unit/L (01/22/24) HGB: 13.7 gm/dL (01/22/24) AST: 37 Int._Unit/L (01/22/24) Lymph Absolute: 1.9 E9/L (01/22/24) Bili Total: 0.3 mg/dL (01/22/24) Lymph Auto: 31.5 % (01/22/24) BUN: 11 mg/dL (01/22/24) MCH: 28.7 pg (01/22/24) BUN/Creat Ratio: 16 (01/22/24) MCHC: 33.6 gm/dL (01/22/24) Calcium Lvl: 9.6 mg/dL (01/22/24) MCV: 85.3 fL (01/22/24) Chloride: 104 mmol/L (01/22/24) [place] Absolute: 0.6 E9/L (01/22/24) CO2: 30 mmol/L (01/22/24) [place] Auto: 9.9 % (01/22/24) Creatinine: 0.7 mg/dL (01/22/24) MPV: 7.6 fL (01/22/24) Globulin: 3.4 gm/dL (01/22/24) Neutro Absolute: 3.3 E9/L (01/22/24) Glucose Lvl: 89 mg/dL (01/22/24) Neutro Auto: 54.2 % (01/22/24) Potassium Lvl: 4.2 mmol/L (01/22/24) Platelet: 215 E9/L (01/22/24) Sodium Lvl: 140 mmol/L (01/22/24) RBC: 4.8 E12/L (01/22/24) Total Protein: 7.4 gm/dL (01/22/24) RDW: 15 % High (01/22/24) WBC: 6 E9/L (01/22/24) History of Present Illness I have reviewed HPI staff note, most recent labs and imaging, more than 30 minutes spent reviewing the chart, during encounter, placing orders and counseling the patient. pt is doing well still on Questran cramping pain in the lower abdomen every day 2 surgeries on the back diarrhea after having morning coffee only tried 1/2 pack of questran Review of Systems PHQ Score Initial Depression Screen Score: 0 SCORE All systems reviewed, negative except as mentioned above Physical Exam Vitals & Measurements HR: 67(Peripheral) RR: 16 BP: 136/87 HT: 60 in HT: 152 cm WT: 56 kg WT: 123.2 lb BMI: 24.24 General: alert, no acute distress HEENT: atraumatic normocephalic Cardiovascular: regular rate and rhythm, normal peripheral perfusion Respiratory: Lungs CTA, respirations non labored Extremities: no deformity, no trauma Abdomen: Benign, soft, nontender nondistended Assessment/Plan 1. Fatty liver (K76.0: Fatty (change of) liver, not elsewhere classified) Ordered: ashelysevelam, 1,875 mg = 3 tab(s), Oral, BID, # 180 tab(s), Refills(s) 0, Pharmacy: [facility]/pharmacy #[id number], 152, cm, 04/06/24 12:35:00 EDT, Height/Length Dosing, 56, kg, 04/06/24 12:35:00 EDT, Weight Dosing hyoscyamine, 0.125 mg = 1 tab(s), Oral, QID, PRN for spasm, # 40 tab(s), Refills(s) 0, Pharmacy: [facility]/pharmacy #[id number], 152, cm, 04/06/24 12:35:00 EDT, Height/Length Dosing, 56, kg, 04/06/24 12:35:00 EDT, Weight Dosing 2. History of colon polyps (Z86.010: Personal history of colonic polyps) Ordered: colesevelam, 1,875 mg = 3 tab(s), Oral, BID, # 180 tab(s), Refills(s) 0, [id number], 152, cm, 04/06/24 12:35:00 EDT, Height/Length Dosing, 56, kg, 04/06/24 12:35:00 EDT, Weight Dosing hyoscyamine, 0.125 mg = 1 tab(s), Oral, QID, PRN for spasm, # 40 tab(s), Refills(s) 0, Pharmacy: [facility]/pharmacy #[id number], 152, cm, 04/06/24 12:35:00 EDT, Height/Length Dosing, 56, kg, 04/06/24 12:35:00 EDT, Weight Dosing 3. Family history of colo (more content not included)... Normal [facility] Comment on above: Result Comment: Elec tronically Signed By: Jose SOMMERS, Liborio Chin\.br\Date and Time Signed: 04/06/24 12:59 EDT CBC W Auto Differential pane l (Bld)on 03-23-2024 Basophils (Bld) [#/Vol] 0.05 10*3/uL Normal <0.11 [facility] Comment on above: Order Comment: Speci men Type: BLOOD SPECIMENOrdering Facility: [facility] Address: [address] [place] [address] Performed By: #### 5 7021-8 ####[facility] LABCLIA [id number] [place] [address] Basophils/100 WBC (Bld) 0.8 % Normal [facility] Comment on above: Order Comment: Speci men Type: BLOOD SPECIMENOrdering Facility: [facility] Address: [address] [place] [address] Performed By: #### 5 7021-8 ####[facility] LABCLIA [id number] [place] [address] Differential cell count method Nom (Bld) Auto Normal [facility] Comment on above: Order Comment: Speci men Type: BLOOD SPECIMENOrdering Facility: [facility] Address: [address] [place] [address] Performed By: #### 5 7021-8 ####[facility] LABCLIA [id number] [place] [address] Eosinophils (Bld) [#/Vol] 0.18 10*3/uL Normal <0.46 [facility] Comment on above: Order Comment: Speci men Type: BLOOD SPECIMENOrdering Facility: [facility] Address: [address] [place] [address] Performed By: #### 5 7021-8 ####[facility] LABCLIA [id number] [place] [address] Eosinophils/100 WBC (Bld) 2.7 % Normal [facility] Comment on above: Order Comment: Speci men Type: BLOOD SPECIMENOrdering Facility: [facility] Address: [address] [place] [address] Performed By: #### 5 7021-8 ####[facility] LABCLIA [id number] [place] [address] Erythrocyte distribution width (RBC) [Ratio] 15.1 % High 11.5-15.0 [facility] Comment on above: Order Comment: Speci men Type: BLOOD SPECIMENOrdering Facility: [facility] Address: [address] [place] [address] Performed By: #### 5 7021-8 ####[facility] LABCLIA [id number] [place] [address] Hematocrit (Bld) [Volume fraction] 40.2 % Normal 36.0-46.0 [facility] Comment on above: Order Comment: Speci men Type: BLOOD SPECIMENOrdering Facility: [facility] Address: [address] [place] [address] Performed By: #### 5 7021-8 ####[facility] LABCLIA [id number] [place] [address] Hemoglobin (Bld) [Mass/Vol] 12.7 g/dL Normal 11.5-15.5 [facility] Comment on above: Order Comment: Speci men Type: BLOOD SPECIMENOrdering Facility: [facility] Address: [address] [place] [address] Performed By: #### 5 7021-8 ####[facility] LABCLIA [id number] [place] [address] Immature granulocytes (Bld) [#/Vol] 0.03 10*3/uL Normal <0.10 [facility] Comment on above: Order Comment: Speci men Type: BLOOD SPECIMENOrdering Facility: [facility] Address: [address] [place] [address] Performed By: #### 5 7021-8 ####[facility] LABCLIA [id number] [place] [address] Immature granulocytes/100 WBC (Bld) 0.5 % Normal [facility] Comment on above: Order Comment: Speci men Type: BLOOD SPECIMENOrdering Facility: [facility] Address: [address] [place] [address] Performed By: #### 5 7021-8 ####[facility] LABCLIA [id number] [place] [address] Lymphocytes (Bld) [#/Vol] 2.37 10*3/uL Normal 1.00-4.00 [facility] Comment on above: Order Comment: Speci men Type: BLOOD SPECIMENOrdering Facility: [facility] Address: [address] [place] [address] Performed By: #### 5 7021-8 ####[facility] LABCLIA [id number] [place] [address] Lymphocytes/100 WBC (Bld) 36.1 % Normal [facility] Comment on above: Order Comment: Speci men Type: BLOOD SPECIMENOrdering Facility: [facility] Address: [address] [place] [address] Performed By: #### 5 7021-8 ####[facility] LABIA [id number] [place] [address] MCH (RBC) [Entitic mass] 27.7 pg Normal 26.0-34.0 [facility] Comment on above: Order Comment: Speci men Type: BLOOD SPECIMENOrdering Facility: [facility] Address: [address] [place] [address] Performed By: #### 5 7021-8 ####[facility] LABCLIA [id number] [place] [address] MCHC (RBC) [Mass/Vol] 31.6 g/dL Normal 30.5-36.0 [facility] Comment on above: Order Comment: Speci men Type: BLOOD SPECIMENOrdering Facility: [facility] Address: [address] [place] [address] Performed By: #### 5 7021-8 ####[facility] LABIA [id number] [place] [address] MCV (RBC) [Entitic vol] 87.8 fL Normal 80.0-100.0 [facility] Comment on above: Order Comment: Speci men Type: BLOOD SPECIMENOrdering Facility: [facility] Address: [address] [place] [address] Performed By: #### 5 7021-8 ####[facility] LABCLIA [id number] [place] [address] Monocytes (Bld) [#/Vol] 0.66 10*3/uL Normal <0.87 [facility] Comment on above: Order Comment: Speci men Type: BLOOD SPECIMENOrdering Facility: [facility] Address: [address] [place] [address] Performed By: #### 5 7021-8 ####[facility] LABCLIA [id number] [place] [address] Monocytes/100 WBC (Bld) 10.0 % Normal [facility] Comment on above: Order Comment: Speci men Type: BLOOD SPECIMENOrdering Facility: [facility] Address: [address] [place] [address] Performed By: #### 5 7021-8 ####[facility] LABCLIA [id number] [place] [address] Neutrophils (Bld) [#/Vol] 3.28 10*3/uL Normal 1.45-7.50 [facility] Comment on above: Order Comment: Speci men Type: BLOOD SPECIMENOrdering Facility: [facility] Address: [address] [place] [address] Performed By: #### 5 7021-8 ####[facility]CLIA [id number] [place] [address] Neutrophils/100 WBC (Bld) 49.9 % Normal [facility] Comment on above: Order Comment: Speci men Type: BLOOD SPECIMENOrdering Facility: [facility] Address: [address] [place] [address] Performed By: #### 5 7021-8 ####[facility] LABCLIA [id number] [place] [address] Nucleated RBC (Bld) [#/Vol] 10*3/uL Normal <0.01 [facility] Comment on above: Order Comment: Speci men Type: BLOOD SPECIMENOrdering Facility: [facility] Address: [address] [place] [address] Performed By: #### 5 7021-8 ####[facility] LABCLIA [id number] [place] [address] Nucleated RBC/100 WBC (Bld) [Ratio] 0.0 /100 WBC Normal [facility] Comment on above: Order Comment: Speci men Type: BLOOD SPECIMENOrdering Facility: [facility] Address: [address] [place] [address] Performed By: #### 5 7021-8 ####[facility] LABCLIA [id number] [place] [address] Platelet mean volume (Bld) [Entitic vol] 9.5 fL Normal 9.0-12.7 [facility] Comment on above: Order Comment: Speci men Type: BLOOD SPECIMENOrdering Facility: [facility] Address: [address] [place] [address] Performed By: #### 5 7021-8 ####[facility] LABCLIA [id number] [place] [address] Platelets (Bld) [#/Vol] 196 10*3/uL Normal 150-400 [facility] Comment on above: Order Comment: Speci men Type: BLOOD SPECIMENOrdering Facility: [facility] Address: [address] [place] [address] Performed By: #### 5 7021-8 ####[facility] LABIA [id number] [place] [address] RBC (Bld) [#/Vol] 4.58 10*6/uL Normal 3.90-5.20 [facility] Comment on above: Order Comment: Speci men Type: BLOOD SPECIMENOrdering Facility: [facility] Address: [address] [place] [address] Performed By: #### 5 7021-8 ####[facility] LABCLIA [id number] [place] [address] WBC (Bld) [#/Vol] 6.57 10*3/uL Normal 3.70-11.00 [facility] Comment on above: Order Comment: Speci men Type: BLOOD SPECIMENOrdering Facility: [facility] Address: [address] [place] [address] Performed By: #### 5 7021-8 ####[facility] LABCLIA [id number] [place] [address] [facility] Nurse Visit (HEMAS[place]) IVONNE CESPEDES ([id number]) 1955 F Date Time Provider Department 03/23/24 2:45 PM RAFA NURSE ERVIN VILLASENOR During your visit today, we recorded the following information about you: Referring Provider: MAIKEL LUNSFORD [[id number]] Allergies As of Date: 03/23/2024 Noted Allergy Reaction BUPROPION 12/22/2004 12 - Shortness of Breath ZYBAN (BUPROPION HCL (SMOKING DET*11/07/2018 12 - Shortness of Breath Date Reviewed: 03/23/2024 Reviewed by: Desirae Sargent MA - Fully Assessed Primary Visit Diagnosis:Anemia, unspecified type [D64.9] Other Visit Diagnosis: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 Problem List As Of Date 03/23/2024 Noted Resolved Ductal carcinoma in situ (DCIS) of breast [D05.*06/11/2019 Anemia [D64.9] 03/13/2023 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 deficie*03/13/2023 Prescriptions ordered this encounter Disp Refills Start End CYANOCOBALAMIN (VIT B-12) 1,000 MCG/* 03/23/2024 03/23/2024 Route: INTRAMUSCULA Encounter Status:Closed by CARRI WALKER on 03/23/24 [facility] CNOVSPon 03-23-2024 CNOVSP Visit (SP) Office (HEMASA) IVONNE CESPEDES ([id number]) 1955 F Date Time Provider Department 03/23/24 2:30 PM MAIKEL LUNSFORD During your visit today, we recorded the following information about you: Temperature Pulse Respiration Blood pressure 97.2 degrees 74/minute 16/minute 145/84 Weight Height 55.6 kg 1.524 m Desirae Sargent MA 03/23/2024 2:32 PM Addendum Patient states she seems to be more tired lately, she also states she quit smoking. RAFA Khoury Vivek, MD 03/23/2024 8:37 PM Signed NAME: Ivonne Cespedes CLINIC NO.: [id number] DATE OF SERVICE: March 23, 2024 (Martín) Some elements in this clinic note that are critical to medical decision making have been carefully reviewed and included from a prior clinic note dated: September 11, 2023 (Martín) Referring Provider: Rosa Shearer Additional [...] every month. PLAN: B12 shot today and q 4 weeks Repeat labs q 12 weeks RTC in 24 weeks - HPI: CASE HISTORY: Reverse Chronological Order 06/06/2023 - Mammogram: Category 2 benign 02/13/2023 - B12 level 144 11/01/2022 - CBC 5.7 > 13.5/41.6 < 218 normal differential. March 2022 FibroScan F0-F1 no steatosis. 01/2022 - CT A/P at [facility] hepatomegaly with hepatic steatosis. 06/2021 - CT A/P right retrocrural lymph node. November 25, [address] 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 10/27/2018 - Biopsy showed ductal carcinoma in situ high nuclear grade. The estrogen receptor was positive at 10-20% with progesterone receptor negative DCIS Right Breast - [facility] 10/22/2018 - Mammogram showing suspicious changes in the right breast. grouping of numerous pleomorphic calcifications within the posterior upper inner quadrant. Updated Visit, March 23, 2024: Ivonne returns today. She remains fatigued with monthly B12 injections. She mentions she does not sleep long at night and wonders if it is related to her smoking cessation. She is not anemic, iron studies are pending. Updated Visit, September 11, 2023: Ivonne returns today for a 12 week follow up. Her labs all look good today. She was hospitalized recently after her BP was low, she was told she has fatigue but her PCP reported the issue was her thyroid. She would like to try taking a magnesium supplement. Updated Visit, June 05, 2023: Mammogram done in [place] yesterday Was told she has pancreatic insufficiency B12 levels remain low. Initial Visit, March 13, 2023: Ivonne Cespedes presents today Hematology and Oncology evaluation. 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 [...] is referred for evaluation of B12 supplementation. - REVIEW OF SYSTEMS Per HPI and otherwise negative by full review of organ systems. - ECOG PERFORMANCE STATUS: 0 PHYSICAL EXAMINATION: Vitals: BP 145/84 Pulse 74 Temp (Src) 97.2 (Temporal) Resp 16 Ht 5' 0 (1.52m) Wt 122 lb 9.2 oz (55.6kg) SpO2 97% BMI 23.94 kg/(m2). Body surface area is 1.53 meters squared. Exam limited to gross visualization [...] areas of skin without rash, lesions, wounds (more content not included)... Normal [facility] Comprehensive metabolic 2000 panelon 03-23-2024 Albumin [Mass/Vol] 4.2 g/dL Normal 3.9-4.9 [facility] Comment on above: Order Comment: Speci men Type: BLOOD SPECIMEN [facility] Address: [address] [id number] Performed By: #### 5 7021-8 #### [facility] CLIA [id number] [address] [place] [address] ALP [Catalytic activity/Vol] 76 U/L Normal 34-123 [facility] Comment on above: Order Comment: Speci men Type: BLOOD SPECIMEN [facility]: [facility] Address: [address] [id number] Performed By: #### 5 7021-8 #### [facility] CLIA [id number] [address] [place] [address] ALT [Catalytic activity/Vol] 14 U/L Normal 7-38 [facility] Comment on above: Order Comment: Speci men Type: BLOOD SPECIMEN [facility] Address: [address] [place] [address] Performed By: #### 5 7021-8 #### [facility] CLIA [id number] [address] [place] [address] Anion gap [Moles/Vol] 10 mmol/L Normal 8-15 [facility] Comment on above: Order Comment: Speci men Type: BLOOD SPECIMEN [facility] Address: [address] [place] [address] Performed By: #### 5 7021-8 #### [facility] CLIA [id number] [address] [place] [address] AST [Catalytic activity/Vol] 21 U/L Normal 13-35 [facility] [facility] Comment on above: Order Comment: Speci men Type: BLOOD SPECIMEN Ordering Facility: [facility] Address: [address] [place] [address] Performed By: #### 5 7021-8 #### [facility] CLIA [id number] [address] [place] [address] 20876 Bilirubin [Mass/Vol] 0.3 mg/dL Normal 0.2-1.3 [facility] Comment on above: Order Comment: Speci men Type: BLOOD SPECIMEN Ordering Facility: [facility] Address: [address] [place] [address] Performed By: #### 5 7021-8 #### [facility] CLIA [id number] [address] [place] [address] 01022 Calcium [Mass/Vol] 9.8 mg/dL Normal 8.5-10.2 [facility] Comment on above: Order Comment: Speci men Type: BLOOD SPECIMEN Ordering Facility: [facility] Address: [address] [place] [address] Performed By: #### 5 7021-8 #### [facility] CLIA [id number] [address] [place] [address] 60091 Chloride [Moles/Vol] 104 mmol/L Normal 98-107 [facility] Comment on above: Order Comment: Speci men Type: BLOOD SPECIMEN Ordering Facility: [facility] Address: [address] [place] [address] Performed By: #### 5 7021-8 #### [facility] CLIA [id number] [address] [place] [address] 95314 CO2 [Moles/Vol] 26 mmol/L Normal 22-30 [facility] Comment on above: Order Comment: Speci men Type: BLOOD SPECIMEN Ordering Facility: [facility] Address: [address] [place] [address] Performed By: #### 5 7021-8 #### [facility] CLIA [id number] [address] [place] [address] 35737 Creatinine [Mass/Vol] 0.66 mg/dL Normal 0.58-0.96 [facility] Comment on above: Order Comment: Speci men Type: BLOOD SPECIMEN Ordering Facility: [facility] Address: [address] [id number] Performed By: #### 5 7021-8 #### [facility] CLIA [id number] [address] [place] [address] 12231 Creatinine and Glomerular filtration rate.predicted panel (S/P/Bld) 95 mL/min/1.73m??? Normal >=60 [facility] Comment on above: Order Comment: Speci men Type: BLOOD SPECIMEN Ordering Facility: [facility] Address: [address] [id number] Result Comment: Angela mated Glomerular Filtration Rate [...] accurately reflect actual GFR. Performed By: #### 5 7021-8 #### [facility] CLIA [id number] [address] [place] [address] 01210 Glucose [Mass/Vol] 115 mg/dL High 74-99 [facility] Comment on above: Order Comment: Speci men Type: BLOOD SPECIMEN Ordering Facility: [facility] Address: [address] [id number] Result Comment: The [place] Diabetes Association (ADA) provides guidance for cutoff [...] Standards of Medical Care in Diabetes 2016, [place] [employer]. Diabetes Care. 2016.39(Suppl 1). Performed By: #### 5 7021-8 #### [facility] CLIA [id number] [address] [place] [address] Potassium [Moles/Vol] 4.0 mmol/L Normal 3.7-5.1 [facility] Comment on above: Order Comment: Speci men Type: BLOOD SPECIMEN Ordering Facility: [facility] Address: [address] [place], [place] [address] Performed By: #### 5 7021-8 #### [facility] CLIA [id number] [address] [place] [address] 10002 Protein [Mass/Vol] 7.6 g/dL Normal 6.3-8.0 [facility] Comment on above: Order Comment: Speci men Type: BLOOD SPECIMEN Ordering Facility: [facility] Address: [address] [place], [place] [address] Performed By: #### 5 7021-8 #### [facility] CLIA [id number] [address] [place] [address] 71869 Sodium [Moles/Vol] 140 mmol/L Normal 136-144 [facility] Comment on above: Order Comment: Speci men Type: BLOOD SPECIMEN Ordering Facility: [facility] Address: [address] [phone] Performed By: #### 5 7021-8 #### [facility] CLIA [id number] [address] [place] [address] 45804 Urea nitrogen [Mass/Vol] 11 mg/dL Normal 7-21 [facility] Comment on above: Order Comment: Speci men Type: BLOOD SPECIMEN Ordering Facility: [facility] Address: [address] [place], [place] [address] Performed By: #### 5 7021-8 #### [facility] CLIA [id number] [address] [place], [place] [address] Ferritin SerPl-ncon 2023 Ferritin [Mass/Vol] 26.7 ng/mL Normal 14.7-205.1 [facility] Comment on above: Order Comment: Speci men Type: BLOOD SPECIMENOrdering Facility: [facility] Address: [address] [place] [address] Performed By: #### 2 284-8, 2276-4, 2131-9, 99098-0 ####[facility] [id number] [place] [address] [place] Folate SerPl-ncon 03-23-20 Folate [Mass/Vol] 11.8 ng/mL Normal >4.7 [facility] Comment on above: Order Comment: Speci men Type: BLOOD SPECIMENOrdering Facility: [facility] Address: [address] [place] [address] Performed By: #### 2 284-8, 2276-4, 2131-9, 12826-5 ####[facility] [id number] [place] [address] [place] Iron and Iron binding capaci ty panelon 03-23-2024 Iron [Mass/Vol] 93 ug/dL Normal 41-186 [facility] Comment on above: Order Comment: Speci men Type: BLOOD SPECIMENOrdering Facility: [facility] Address: [address] [place] [address] Performed By: #### 2 284-8, 2276-4, 2131-9, 80556-5 ####[facility] [id number] [place] [address] [place] Iron binding capacity [Mass/Vol] 370 ug/dL Normal 232-386 [facility] Comment on above: Order Comment: Speci men Type: BLOOD SPECIMENOrdering Facility: [facility] Address: [address] [place], [place] [address] Performed By: #### 2 284-8, 6-4, 9, 84405-0 ####[facility] [id number] [place] [id number] [place] Iron/TIBC [Molar ratio] 25.1 % Normal 15.0-57.0 [facility] Comment on above: Order Comment: Speci men Type: BLOOD SPECIMENOrdering Facility: [facility] Address: [address] [place] [address] Performed By: #### 2 284-8, 6-4, 9, 21691-8 ####[facility] [id number] [place] [id number] [place] Vit B12 [facility] 29-2 024 Cobalamin (Vitamin B12) [Mass/Vol] 428 pg/mL Normal 232-1245 [facility] Comment on above: Order Comment: Speci men Type: BLOOD SPECIMENOrdering Facility: [facility] Address: [address] [place] [address] Performed By: #### 2 284-8, 6-4, 9, 68282-4 ####[facility] [id number] [place] [id number] [place] [facility] CNNURSE Nurse Visit (JACKLYN) IVONNE CESPEDES ([id number]) 1955 F Date Time Provider Department 01/30/24 2:30 PM RAFA VILLASENOR During your visit today, we recorded the following information about you: Temperature Pulse Respiration Blood pressure 97.8 degrees 92/minute 16/minute 136/86 Desirae Sargent MA 01/30/2024 2:40 PM Signed Patient Identification confirmed: yes. Injection given and documented on OCT per provider order. 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 Injection given and documented on OCT per provider order. Desirae Sargent MA Prescriptions ordered this encounter Disp Refills Start End CYANOCOBALAMIN (VIT B-12) 1,000 MCG/* 01/30/2024 01/30/2024 Route: INTRAMUSCULA Encounter Status:Closed by DESIRAE SARGENT on 01/30/24 Normal [facility] CBC w/ Auto Diffon 4 Basophils/100 WBC (Bld) 1.1 % Normal 0.0-2.0 [facility] Comment on above: Performed By: #### 2 930497 #### [facility] [address] [place] [address] Basophils/Leukocytes Auto (Bld) [Pure # fraction] 0.1 E9/L Normal 0.0-0.2 [facility] Comment on above: Performed By: #### 2 439665 #### [facility] [address] [place] [address] Eosinophils (Bld) [#/Vol] 0.2 E9/L Normal 0.0-0.5 [facility] Comment on above: Performed By: #### 2 914816 #### [facility] [address] [place] [address] Eosinophils/100 WBC (Bld) 3.3 % Normal 0.0-8.0 [facility] Comment on above: Performed By: #### 2 290485 #### [facility] [address] [place] [address] Erythrocyte distribution width (RBC) [Ratio] 15.0 % High 10.9-14.2 [facility] Comment on above: Performed By: #### 2 328304 #### [facility] [address] [place] [address] Hematocrit (Bld) [Volume fraction] 40.8 % Normal 34.0-46.0 [facility] Comment on above: Performed By: #### 2 044595 #### [facility] [address] [place] [address] Hemoglobin (Bld) [Mass/Vol] 13.7 g/dL Normal 12.0-16.0 [facility] Comment on above: Performed By: #### 2 596000 #### [facility] [address] [place] [address] Lymphocytes (Bld) [#/Vol] 1.9 E9/L Normal 1.0-4.0 [facility] Comment on above: Performed By: #### 2 313541 #### [facility] [address] [place] [address] Lymphocytes/100 WBC (Bld) 31.5 % Normal 14.0-50.0 [facility] Comment on above: Performed By: #### 2 132880 #### [facility] [address] [place] [address] MCH (RBC) [Entitic mass] 28.7 pg Normal 27.0-34.0 [facility] Comment on above: Performed By: #### 2 105554 #### [facility] [address] [place] [address] MCHC (RBC) [Mass/Vol] 33.6 g/dL Normal 31.4-36.0 [facility] Comment on above: Performed By: #### 2 475195 #### [facility] [address] [place] [address] MCV (RBC) [Entitic vol] 85.3 fL Normal 80.0-100.0 [facility] Comment on above: Performed By: #### 2 934969 #### [facility] [address] [place] [address] Monocytes (Bld) [#/Vol] 0.6 E9/L Normal 0.2-1.0 [facility] Comment on above: Performed By: #### 2 382859 #### [facility] [address] [place] [address] Neutrophils (Bld) [#/Vol] 3.3 E9/L Normal 2.0-7.5 [facility] Comment on above: Performed By: #### 2 547517 #### [facility] [address] [place] [address] Neutrophils/100 WBC (Bld) 54.2 % Normal 36.0-75.0 [facility] Comment on above: Performed By: #### 2 105334 #### [facility] [address] [place] [address] Platelet 215.0 E9/L Normal 150.0-500.0 [facility] Comment on above: Performed By: #### 2 336699 #### [facility] [address] [place] [address] Platelet mean volume (Bld) [Entitic vol] 7.6 fL Normal 6.4-10.8 [facility] Comment on above: Performed By: #### 2 043732 #### [facility] [address] [place] [address] RBC (Bld) [#/Vol] 4.8 E12/L Normal 4.3-5.9 [facility] Comment on above: Performed By: #### 2 675645 #### [facility] [address] [place] [address] WBC corrected for nucl RBC Auto (Bld) [#/Vol] 6.0 E9/L Normal 4.0-11.0 [facility] Comment on above: Performed By: #### 2 260335 #### [facility] [address] [place] [address] CHEMISTRYOrdered By: SYSTEM SYSTEM on 01-22-2024 Albumin [Mass/Vol] 4.0 g/dL Normal 3.3 - 5.0 gm/dL [facility] Albumin/Globulin [Mass ratio] 1.2 {ratio} Normal 1.1 - 2.2 [facility] ALP [Catalytic activity/Vol] 65 [iU]/d Normal 21 - 98 Int._Unit/L [facility] ALT No additional P-5'-P [Catalytic activity/Vol] 26 [iU]/d Normal 6 - 46 Int._Unit/L [facility] Anion gap [Moles/Vol] 10 mmol/L Normal 6 - 16 mEq/L R [facility] AST [Catalytic activity/Vol] 37 [iU]/d Normal 5 - 43 Int._Unit/L [facility] Bilirubin [Mass/Vol] 0.3 mg/dL Normal 0.0 - 1 .1 mg/dL [facility] Calcium [Mass/Vol] 9.6 mg/dL Normal 8.9 - 11. 1 mg/dL [facility] Chloride [Moles/Vol] 104 mmol/L Normal 101 - 1 11 mmol/L [facility] CO2 [Moles/Vol] 30 mmol/L Normal 21 - 31 mmol/L [facility] Cobalamin (Vitamin B12) [Mass/Vol] 317 pg/mL Normal 50 - 1500 pg/mL [facility] Creatinine [Mass/Vol] 0.7 mg/dL Normal 0.5 - 1.3 mg/dL [facility] eGFR 93 mL/min/1.73 m2 Normal >=59mL/min /1. 73 m2 [facility] Globulin (S) [Mass/Vol] 3.4 g/dL Normal 1.4 - 4.0 gm/dL [facility] Glucose [Mass/Vol] 89 mg/dL Normal 55 - 199 mg/dL [facility] Potassium [Moles/Vol] 4.2 mmol/L Normal 3.5 - 5.3 mmol/L [facility] Protein [Mass/Vol] 7.4 g/dL Normal 6.0 - 7.8 gm/dL [facility] Sodium [Moles/Vol] 140 mmol/L Normal 135 - 145 mmol/L [facility] Urea nitrogen [Mass/Vol] 11 mg/dL Normal 5 - 21 mg/dL [facility] Urea nitrogen/Creatinine [Mass ratio] 16 mg/mg Normal 10 - 20 [facility] CMPon 01-22-2024 Albumin [Mass/Vol] 4.0 g/dL Normal 3.3-5.0 [facility] Comment on above: Performed By: #### 2 010375 #### [facility] [address] [place] [address] Albumin/Globulin (S) [Mass conc ratio] 1.2 Normal 1.1-2.2 [facility] Comment on above: Performed By: #### 2 073946 #### [facility] [address] [place] [address] ALP [Catalytic activity/Vol] 65 Int._Unit/L Normal 21-98 [facility] Comment on above: Performed By: #### 2 695136 #### [facility] [address] [place] [address] ALT No additional P-5'-P [Catalytic activity/Vol] 26 Int._Unit/L Normal 6-46 [facility] Comment on above: Performed By: #### 2 418513 #### [facility] [address] [place] [address] Anion gap [Moles/Vol] 10 mmol/L Normal 6-16 [facility] Comment on above: Performed By: #### 2 662418 #### [facility] [address] [place] [address] AST [Catalytic activity/Vol] 37 Int._Unit/L Normal 5-43 [facility] Comment on above: Performed By: #### 2 984696 #### [facility] [address] [place] [address] Bilirubin [Mass/Vol] 0.3 mg/dL Normal 0.0-1.1 [facility] Comment on above: Performed By: #### 2 255622 #### [facility] [address] [place] [address] Calcium [Mass/Vol] 9.6 mg/dL Normal 8.9-11.1 [facility] Comment on above: Performed By: #### 2 794161 #### [facility] [address] [place] [address] Chloride [Moles/Vol] 104 mmol/L Normal 101-111 [facility] Comment on above: Performed By: #### 2 550374 #### [facility] [address] [place] [address] CO2 [Moles/Vol] 30 mmol/L Normal 21-31 [facility] Comment on above: Performed By: #### 2 556498 #### [facility] [address] [place] [address] Creatinine [Mass/Vol] 0.7 mg/dL Normal 0.5-1.3 [facility] Comment on above: Performed By: #### 2 052955 #### [facility] [address] [place] [address] Globulin (S) [Mass/Vol] 3.4 g/dL Normal 1.4-4.0 [facility] Comment on above: Performed By: #### 2 818968 #### [facility] [address] [place] [address] Glucose [Mass/Vol] 89 mg/dL Normal 55-199 [facility] Comment on above: Performed By: #### 2 092807 #### [facility] [address] [place] [address] Potassium [Moles/Vol] 4.2 mmol/L Normal 3.5-5.3 [facility] Comment on above: Performed By: #### 2 312707 #### [facility] [address] [place] [address] Protein [Mass/Vol] 7.4 g/dL Normal 6.0-7.8 [facility] Comment on above: Performed By: #### 2 388060 #### [facility] [address] [place] [address] Sodium [Moles/Vol] 140 mmol/L Normal 135-145 [facility] Comment on above: Performed By: #### 2 935299 #### [facility] [address] [place] [address] Urea nitrogen [Mass/Vol] 11 mg/dL Normal 5-21 [facility] Comment on above: Performed By: #### 2 566976 #### [facility] [address] [place] [address] Urea nitrogen/Creatinine [Mass ratio] 16 No Units Normal 10-20 [facility] Comment on above: Performed By: #### 2 303952 #### [facility] [address] [place] [address] CNPZoie 01-22-2024 CNPN Telephone (HEMASA) CESPEDESIVONNE ([id number]) 1955 F Date Time Provider Department 01/22/24 MAIKEL LUNSFORD During your visit today, we recorded the following information about you: Desirae Sargent MA 01/22/2024 9:59 AM Signed Please sign B12 order for 01/30/24, Thanks. Desirae Sargent MA Allergies As of Date: 01/22/2024 Noted Allergy Reaction BUPROPION 12/22/2004 12 - Shortness of Breath ZYBAN (BUPROPION HCL (SMOKING DET*11/07/2018 12 - Shortness of Breath Date Reviewed: 09/11/2023 Reviewed by: Desirae Sargent MA - Fully Assessed Prescriptions as of 01/28/2024 - levothyroxine (SYNTHROID) 50 mcg tablet Take [...] once daily. 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 Consent for Treatmenton - Consent for Treatment [id number] #1.00TIFF Normal [facility] HEMATOLOGYOrdered By: SYSTEM SYSTEM on 01-22-2024 Basophils/100 WBC (Bld) 1.1 % Normal 0.0 - 2.0 % [facility] Basophils/Leukocytes Auto (Bld) [Pure # fraction] 0.1 E9/L Normal 0.0 - 0.2 E9/L [facility] Eosinophils (Bld) [#/Vol] 0.2 E9/L Normal 0.0 - 0.5 E9/L [facility] Eosinophils/100 WBC (Bld) 3.3 % Normal 0.0 - 8.0 % [facility] Erythrocyte distribution width (RBC) [Ratio] 15.0 % High 10.9 - 14.2 % [facility] Hematocrit (Bld) [Volume fraction] 40.8 % Normal 34.0 - 46.0 % [facility] Hemoglobin (Bld) [Mass/Vol] 13.7 g/dL Normal 12.0 - 16.0 gm/dL [facility] Lymphocytes (Bld) [#/Vol] 1.9 E9/L Normal 1.0 - 4.0 E9/L [facility] Lymphocytes/100 WBC (Bld) 31.5 % Normal 14.0 - 50.0 % [facility] MCH (RBC) [Entitic mass] 28.7 pg Normal 27.0 - 34.0 pg [facility] MCHC (RBC) [Mass/Vol] 33.6 g/dL Normal 31.4 - 36.0 gm/dL [facility] MCV (RBC) [Entitic vol] 85.3 fL Normal 80.0 - 100.0 fL [facility] Monocytes (Bld) [#/Vol] 0.6 E9/L Normal 0.2 - 1.0 E9/L [facility] Monocytes/100 WBC (Bld) 9.9 % Normal 4.0 - 14.0 % [facility] Neutrophils (Bld) [#/Vol] 3.3 E9/L Normal 2.0 - 7.5 E9/L [facility] Neutrophils/100 WBC (Bld) 54.2 % Normal 36.0 - 75.0 % [facility] Platelet 215.0 E9/L Normal 150.0 - 500.0 E9/L [facility] Platelet mean volume (Bld) [Entitic vol] 7.6 fL Normal 6.4 - 10.8 fL [facility] RBC (Bld) [#/Vol] 4.8 E12/L Normal 4.3 - 5.9 E12/L [facility] WBC corrected for nucl RBC Auto (Bld) [#/Vol] 6.0 E9/L Normal 4.0 - 11.0 E9/L [facility] Vit B12on 01-22-2024 Cobalamin (Vitamin B12) [Mass/Vol] 317 pg/mL Normal 50-1500 [facility] Comment on above: Performed By: #### 2 294491 #### [facility] [address] [place] [address] eGFRon 01-22-2024 eGFR 93 mL/min/1.73 m2 Normal >=59 [facility] Comment on above: Order Comment: Order added by Discern Expert. Performed By: #### 1 [id number] #### [facility] [address] [place] [address] CNNURSEon 01-02-2024 CNNURSE Nurse Visit (HEMASA) IVONNE CESPEDES ([id number]) 1955 F Date Time Provider Department 01/02/24 2:30 PM RAFA NURSE ERVIN VILLASENOR During your visit today, we recorded the following information about you: Temperature Pulse Respiration Blood pressure 97 degrees 77/minute 18/minute 133/86 Shirley Pierre MA 01/02/2024 2:32 PM Signed Patient Identification confirmed: yes. Injection given and documented on OCT per provider order. 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 Injection given and documented on OCT per provider order. Shirley Pierre MA Prescriptions ordered this encounter Disp Refills Start End CYANOCOBALAMIN (VIT B-12) 1,000 MCG/* 01/02/2024 01/02/2024 Route: INTRAMUSCULA Encounter Status:Closed by SHIRLEY PIERRE on 01/02/24 Normal [facility] CBC W Auto Differential pane l (Bld)on 12-05-2023 Basophils (Bld) [#/Vol] 0.04 10*3/uL Normal <0.11 [facility] Comment on above: Order Comment: Speci men Type: BLOOD SPECIMEN Ordering Facility: [facility] Address: [address] [place] [address] Performed By: #### 5 7021-8 #### [facility] CLIA [id number] [address] [place] [address] Basophils/100 WBC (Bld) 0.6 % Normal [facility] Comment on above: Order Comment: Speci men Type: BLOOD SPECIMEN Ordering Facility: [facility] Address: [address] [place] [address] Performed By: #### 5 7021-8 #### [facility] CLIA [id number] [address] [place] [address] Differential cell count method Nom (Bld) Auto Normal [facility] Comment on above: Order Comment: Speci men Type: BLOOD SPECIMEN Ordering Facility: [facility] Address: [address] [place] [address] Performed By: #### 5 7021-8 #### [facility] CLIA [id number] [address] [place] [address] Eosinophils (Bld) [#/Vol] 0.14 10*3/uL Normal <0.46 [facility] Comment on above: Order Comment: Speci men Type: BLOOD SPECIMEN Ordering Facility: [facility] Address: [address] [place] [address] Performed By: #### 5 7021-8 #### [facility] CLIA [id number] [address] [place] [address] Eosinophils/100 WBC (Bld) 2.2 % Normal [facility] Comment on above: Order Comment: Speci men Type: BLOOD SPECIMEN Ordering Facility: [facility] Address: [address] [place] [address] Performed By: #### 5 7021-8 #### [facility] CLIA [id number] [address] [place] [address] Erythrocyte distribution width (RBC) [Ratio] 15.5 % High 11.5-15.0 [facility] [facility] Comment on above: Order Comment: Speci men Type: BLOOD SPECIMEN Ordering Facility: [facility] Address: [address] [place] [address] Performed By: #### 5 7021-8 #### [facility] CLIA [id number] [address] [place] [address] 14266 Hematocrit (Bld) [Volume fraction] 40.7 % Normal 36.0-46.0 [facility] Comment on above: Order Comment: Speci men Type: BLOOD SPECIMEN Ordering Facility: [facility] Address: [address] [place] [address] Performed By: #### 5 7021-8 #### [facility] CLIA [id number] [address] [place] [address] 85449 Hemoglobin (Bld) [Mass/Vol] 13.0 g/dL Normal 11.5-15.5 [facility] Comment on above: Order Comment: Speci men Type: BLOOD SPECIMEN Ordering Facility: [facility] Address: [address] [place] [address] Performed By: #### 5 7021-8 #### [facility] CLIA [id number] [address] [place] [address] 13219 Immature granulocytes (Bld) [#/Vol] 10*3/uL Normal <0.10 [facility] Comment on above: Order Comment: Speci men Type: BLOOD SPECIMEN Ordering Facility: [facility] Address: [address] [place] [address] Performed By: #### 5 7021-8 #### [facility] CLIA [id number] [address] [place] [address] 21015 Immature granulocytes/100 WBC (Bld) 0.3 % Normal [facility] Comment on above: Order Comment: Speci men Type: BLOOD SPECIMEN Ordering Facility: [facility] Address: [address] [place] [address] Performed By: #### 5 7021-8 #### [facility] CLIA [id number] [address] [place] [address] 78794 Lymphocytes (Bld) [#/Vol] 1.98 10*3/uL Normal 1.00-4.00 [facility] Comment on above: Order Comment: Speci men Type: BLOOD SPECIMEN Ordering Facility: [facility] Address: [address] [place] [address] 77902 Performed By: #### 5 7021-8 #### [facility] CLIA [id number] [address] [place] [address] 03691 Lymphocytes/100 WBC (Bld) 31.4 % Normal [facility] Comment on above: Order Comment: Speci men Type: BLOOD SPECIMEN Ordering Facility: [facility] Address: [address] [place] [address] 13547 Performed By: #### 5 7021-8 #### [facility] CLIA [id number] [address] [place] [address] 90235 MCH (RBC) [Entitic mass] 27.6 pg Normal 26.0-34.0 [facility] Comment on above: Order Comment: Speci men Type: BLOOD SPECIMEN Ordering Facility: [facility] Address: [address] [place] [address] 92882 Performed By: #### 5 7021-8 #### [facility] CLIA [id number] [address] [place] [address] 84226 MCHC (RBC) [Mass/Vol] 31.9 g/dL Normal 30.5-36.0 [facility] Comment on above: Order Comment: Speci men Type: BLOOD SPECIMEN Ordering Facility: [facility] Address: [address] [place] [address] 41835 Performed By: #### 5 7021-8 #### [facility] CLIA [id number] [address] [place] [address] 89568 MCV (RBC) [Entitic vol] 86.4 fL Normal 80.0-100.0 [facility] Comment on above: Order Comment: Speci men Type: BLOOD SPECIMEN Ordering Facility: [facility] Address: [address] [place] [address] 84345 Performed By: #### 5 7021-8 #### [facility] CLIA [id number] [address] [place] [address] Monocytes (Bld) [#/Vol] 0.45 10*3/uL Normal <0.87 [facility] Comment on above: Order Comment: Speci men Type: BLOOD SPECIMEN Ordering Facility: [facility] Address: [address] [place] [address] Performed By: #### 5 7021-8 #### [facility] CLIA [id number] [address] [place] [address] 30910 Monocytes/100 WBC (Bld) 7.1 % Normal [facility] Comment on above: Order Comment: Speci men Type: BLOOD SPECIMEN Ordering Facility: [facility] Address: [address] [place] [address] Performed By: #### 5 7021-8 #### [facility] CLIA [id number] [address] [place] [address] 18166 Neutrophils (Bld) [#/Vol] 3.68 10*3/uL Normal 1.45-7.50 [facility] Comment on above: Order Comment: Speci men Type: BLOOD SPECIMEN Ordering Facility: [facility] Address: [address] [place] [address] Performed By: #### 5 7021-8 #### [facility] CLIA [id number] [address] [place] [address] 34814 Neutrophils/100 WBC (Bld) 58.4 % Normal [facility] Comment on above: Order Comment: Speci men Type: BLOOD SPECIMEN Ordering Facility: [facility] Address: [address] [place] [address] Performed By: #### 5 7021-8 #### [facility] CLIA [id number] [address] [place] [address] 42860 Nucleated RBC (Bld) [#/Vol] 10*3/uL Normal <0.01 [facility] Comment on above: Order Comment: Speci men Type: BLOOD SPECIMEN Ordering Facility: [facility] Address: [address] [place] [address] Performed By: #### 5 7021-8 #### [facility] CLIA [id number] [address] [place] [address] Nucleated RBC/100 WBC (Bld) [Ratio] 0.0 /100 WBC Normal [facility] Comment on above: Order Comment: Speci men Type: BLOOD SPECIMEN Ordering Facility: [facility] Address: [address] [place] [address] Performed By: #### 5 7021-8 #### [facility] CLIA [id number] [address] [place] [address] 83564 Platelet mean volume (Bld) [Entitic vol] 8.7 fL Low 9.0-12.7 [facility] Comment on above: Order Comment: Speci men Type: BLOOD SPECIMEN Ordering Facility: [facility] Address: [address] [place] [address] Performed By: #### 5 7021-8 #### [facility] CLIA [id number] [address] [place] [address] 92532 Platelets (Bld) [#/Vol] 193 10*3/uL Normal 150-400 [facility] Comment on above: Order Comment: Speci men Type: BLOOD SPECIMEN Ordering Facility: [facility] Address: [address] [place] [address] Performed By: #### 5 7021-8 #### [facility] CLIA [id number] [address] [place] [address] 98256 RBC (Bld) [#/Vol] 4.71 10*6/uL Normal 3.90-5.20 [facility] Comment on above: Order Comment: Speci men Type: BLOOD SPECIMEN Ordering Facility: [facility] Address: [address] [place] [address] Performed By: #### 5 7021-8 #### [facility] CLIA [id number] [address] [place] [address] 45840 WBC (Bld) [#/Vol] 6.31 10*3/uL Normal 3.70-11.00 [facility] Comment on above: Order Comment: Speci men Type: BLOOD SPECIMEN Ordering Facility: [facility] Address: [address] [place] [address] Performed By: #### 5 7021-8 #### [facility] CLIA [id number] [address] [place] [address] 53460 CNNURSEon 12-05-2023 [facility] Nurse Visit (HEMASA) IVONNE CESPEDES ([id number]) 1955 F Date Time Provider Department 12/05/23 2:45 PM [facility] NURSE ERVIN VILLASENOR During your visit today, we recorded the following information about you: Temperature Pulse Respiration Blood pressure 97.4 degrees 82/minute 18/minute 139/84 Pepe Yadav MA 12/05/2023 2:52 PM Signed Patient Identification confirmed: yes. Injection given and documented on OCT per provider order. 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 Injection given and documented on OCT per provider order. Pepe Yadav MA Prescriptions ordered this encounter Disp Refills Start End CYANOCOBALAMIN (VIT B-12) 1,000 MCG/* 12/05/2023 12/05/2023 Route: INTRAMUSCULA Encounter Status:Closed by PEPE YADAV on 12/05/23 Normal [facility] Comprehensive metabolic 2000 panelon 12-05-2023 Albumin [Mass/Vol] 4.0 g/dL Normal 3.9-4.9 [facility] Comment on above: Order Comment: Speci men Type: BLOOD SPECIMEN Ordering Facility: [facility] Address: [address] [place] [address] Performed By: #### 5 7021-8 #### [facility] CLIA [id number] [address] [place] [address] 90610 ALP [Catalytic activity/Vol] 68 U/L Normal 34-123 [facility] Comment on above: Order Comment: Speci men Type: BLOOD SPECIMEN Ordering Facility: [facility] Address: [address] [place] [address] 61874 Performed By: #### 5 7021-8 #### [facility] CLIA [id number] [address] [place] [address] 97983 ALT [Catalytic activity/Vol] 19 U/L Normal 7-38 [facility] Comment on above: Order Comment: Speci men Type: BLOOD SPECIMEN Ordering Facility: [facility] Address: [address] [place] [address] Performed By: #### 5 7021-8 #### [facility] CLIA [id number] [address] [place] [address] Anion gap [Moles/Vol] 9 mmol/L Normal 9-18 [facility] Comment on above: Order Comment: Speci men Type: BLOOD SPECIMEN Ordering Facility: [facility] Address: [address] [place] [address] 24828 Performed By: #### 5 7021-8 #### [facility] CLIA [id number] [address] [place] [address] 49355 AST [Catalytic activity/Vol] 21 U/L Normal 13-35 [facility] Comment on above: Order Comment: Speci men Type: BLOOD SPECIMEN Ordering Facility: [facility] Address: [address] [place] [address] 76048 Performed By: #### 5 7021-8 #### [facility] CLIA [id number] [address] [place] [address] 29972 Bilirubin [Mass/Vol] 0.2 mg/dL Normal 0.2-1.3 [facility] Comment on above: Order Comment: Speci men Type: BLOOD SPECIMEN Ordering Facility: [facility] Address: [address] [place] [address] Performed By: #### 5 7021-8 #### [facility] CLIA [id number] [address] [place] [address] 53988 Calcium [Mass/Vol] 9.9 mg/dL Normal 8.5-10.2 [facility] Comment on above: Order Comment: Speci men Type: BLOOD SPECIMEN Ordering Facility: [facility] Address: [address] [place] [address] Performed By: #### 5 7021-8 #### [facility] CLIA [id number] [facility] [place] [address] Chloride [Moles/Vol] 106 mmol/L High 97-105 [facility] Comment on above: Order Comment: Speci men Type: BLOOD SPECIMEN Ordering Facility: [facility] Address: [address] [place] [address] Performed By: #### 5 7021-8 #### [facility] CLIA [id number] [address] [place] [address] 81637 CO2 [Moles/Vol] 28 mmol/L Normal 22-30 [facility] Comment on above: Order Comment: Speci men Type: BLOOD SPECIMEN Ordering Facility: [facility] Address: [address] [place] [address] Performed By: #### 5 7021-8 #### [facility] CLIA [id number] [address] [place] [address] 14717 Creatinine [Mass/Vol] 0.65 mg/dL Normal 0.58-0.96 [facility] Comment on above: Order Comment: Speci men Type: BLOOD SPECIMEN Ordering Facility: [facility] Address: [address] [place] [address] Performed By: #### 5 7021-8 #### [facility] CLIA [id number] [address] [place] [address] 91336 Creatinine and Glomerular filtration rate.predicted panel (S/P/Bld) 95 mL/min/1.73m??? Normal >=60 [facility] Comment on above: Order Comment: Speci men Type: BLOOD SPECIMEN Ordering Facility: [facility] Address: [address] [place] [address] Result Comment: Angela mated Glomerular Filtration Rate [...] accurately reflect actual GFR. Performed By: #### 5 7021-8 #### [facility] CLIA [id number] [address] [place] [address] Glucose [Mass/Vol] 125 mg/dL High 74-99 [facility] Comment on above: Order Comment: Eusebio joya Type: BLOOD SPECIMEN Ordering Facility: [facility] Address: [address] [place], [place] [address] Result Comment: The [place] [employer] (ADA) provides guidance for cutoff [...] Standards of Medical Care in Diabetes 2016, [place] [employer]. Diabetes Care. 2016.39(Suppl 1). Performed By: #### 5 7021-8 #### [facility] CLIA [id number] [address] [place] [address] Potassium [Moles/Vol] 3.6 mmol/L Low 3.7-5.1 [facility] Comment on above: Order Comment: Eusebio joya Type: BLOOD SPECIMEN Ordering Facility: [facility] Address: [address] [place] [address]40 Performed By: #### 5 7021-8 #### [facility] CLIA [id number] [address] [place] [address] 30782 Protein [Mass/Vol] 7.3 g/dL Normal 6.3-8.0 [facility] Comment on above: Order Comment: Eusebio joya Type: BLOOD SPECIMEN Ordering Facility: [facility] Address: [address] [place] [address] 75286 Performed By: #### 5 7021-8 #### [facility] CLIA [id number] [address] [place] [address] 46409 Sodium [Moles/Vol] 143 mmol/L Normal 136-144 [facility] Comment on above: Order Comment: Speci men Type: BLOOD SPECIMEN Ordering Facility: [facility] Address: [address] [place] [address] 54633 Performed By: #### 5 7021-8 #### [facility] CLIA [id number] [address] [place] [address] Urea nitrogen [Mass/Vol] 15 mg/dL Normal 7-21 [facility] Comment on above: Order Comment: Speci men Type: BLOOD SPECIMEN Ordering Facility: [facility] Address: [address] [place] [address] 86376 Performed By: #### 5 7021-8 #### [facility] CLIA [id number] [address] [place] [address] 30156 Ferritin SerPl-mCncon 2023 Ferritin [Mass/Vol] 18.2 ng/mL Normal 14.7-205.1 [facility] Comment on above: Order Comment: Speci men Type: BLOOD SPECIMEN Ordering Facility: [facility] Address: [address] [place] [address] 59356 Performed By: #### 5 7021-8 #### [facility] CLIA [id number] [address] [place] [address] 25592 Folate SerPl-mCncon 12-05-19 24 Folate [Mass/Vol] 10.2 ng/mL Normal >4.7 [facility] Comment on above: Order Comment: Speci men Type: BLOOD SPECIMEN Ordering Facility: [facility] Address: [address] [place] [address] 42672 Performed By: #### 5 7021-8 #### [facility] CLIA [id number] [address] [place] [address] 11904 Iron and Iron binding capaci ty panelon 12-05-2023 Iron [Mass/Vol] 49 ug/dL Normal 41-186 [facility] Comment on above: Order Comment: Speci men Type: BLOOD SPECIMEN Ordering Facility: [facility] Address: [address] [place], [place] [address] Performed By: #### 5 7021-8 #### [facility] CLIA [id number] [address] [place] [address] 05819 Iron binding capacity [Mass/Vol] 384 ug/dL Normal 232-386 [facility] Comment on above: Order Comment: Speci men Type: BLOOD SPECIMEN Ordering Facility: [facility] Address: [address] [place] [address] Performed By: #### 5 7021-8 #### [facility] CLIA [id number] [address] [place] [address] 60801 Iron/TIBC [Molar ratio] 12.8 % Low 15.0-57.0 [facility] Comment on above: Order Comment: Speci men Type: BLOOD SPECIMEN Ordering Facility: [facility] Address: [address] [place] [address] Performed By: #### 5 7021-8 #### [facility] CLIA [id number] [address] [place] [address] 62190 Vit B12 [facility] 024 Cobalamin (Vitamin B12) [Mass/Vol] 405 pg/mL Normal 232-1245 [facility] Comment on above: Order Comment: Speci men Type: BLOOD SPECIMEN Ordering Facility: [facility] Address: [address] [place] [address] Performed By: #### 5 7021-8 #### [facility] [place] [id number] [address] [place] [address] 06926 [facility] 11-07-2023 CNNURSE Nurse Visit (HEMASA) IVONNE CESPEDES ([id number]) 1955 F Date Time Provider Department 11/07/23 2:30 PM [facility] NURSE ERVIN MARCIA LILIAMMAMI During your visit today, we recorded the following information about you: Temperature Pulse Respiration Blood pressure 97.1 degrees 79/minute 18/minute 119/90 Pepe Yadav 11/07/2023 2:12 PM Signed Patient Identification confirmed: yes. Injection given and documented on OCT per provider order. 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 Injection given and documented on OCT per provider order. Pepe Yadav Prescriptions ordered this encounter Disp Refills Start End CYANOCOBALAMIN (VIT B-12) 1,000 MCG/* 11/07/2023 11/07/2023 Route: INTRAMUSCULA Encounter Status:Closed by PEPE YADAV on 11/07/23 Normal [facility] Ambulatory Visit Summaryon 0 10-11-2023 Ambulatory Visit [...] if questions or concerns Patient Specific Meds acetaminophen-chlorz oxazone (Extra Strength Tylenol Aches and Strains) ascorbic [...] Follow-Up Appointments Saturday 12:00 PM EDT With: Roas Shearer CNP Where: [facility] Normal [facility] Gastroenterology Office/Clin ic Noteon 10-11-2023 Gastroenterology [...] diverticulitis. Patient had repeat CT 01/[address] [facility] that showed hepatomegaly and hepatic steatosis. [...] well nourished, in no acute distress Head: Normocephalic/atraum atic Lungs: Normal respiratory effort and clear to [...] liver, not elsewhere classified) CT 01/[address] [facility] showed hepatomegaly and hepatic steatosis. Previous FibroScan 03/2022 revealed F0?F1 fibrosis, no steatosis. Previous FibroScan 02/2023 revealed mild steatosis, F0?F1 fibrosis. (more content not included)... Normal [facility] Comment on above: Result Comment: Elec tronically Signed By: Rosa Shearer CNP.nikhil\Date and Time Signed: 10/11/23 13:38 EST Patient Educationon 10-11-19 Patient Education Mental and Behavioral Health Fatty [...] ? Alcohol abuse. ? Poor nutrition. ? Chimayo syndrome. ? . ? Certain drugs. ? [...] activities are best for you. ? Take dnur-tsy-obnmbug and prescription medicines only as told by [...] provider. Document Revised: 05/25/2021 Document Reviewed: 05/25/2021 [employer] Patient Education ? 2022 [employer]. 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 Facility-Administere d Medications as of 10/10/2023 - NaCl 0.9% [...] deficie*03/13/2023 Visit Notes: >> Oniel Prescott Ma Collette Oct 10, 2023 1:47 PM Status: Signed [...] by ONIEL PRESCOTT MA on 10/10/23 Normal [facility] CBC W Auto Differential pane l (Bld)on 09-11-2023 Basophils (Bld) [#/Vol] 0.07 10*3/uL Normal <0.11 [facility] Comment on above: Order Comment: Speci men Type: BLOOD SPECIMENOrdering Facility: [facility] Address: [address] [place] [address] Performed By: #### 5 7021-8 ####[facility] [id number] [place] [address] Basophils/100 WBC (Bld) 1.0 % Normal [facility] Comment on above: Order Comment: Speci men Type: BLOOD SPECIMENOrdering Facility: [facility] Address: [address] [place] [address] Performed By: #### 5 7021-8 ####[facility] [id number] [place] [address] Differential cell count method Nom (Bld) Auto Normal [facility] Comment on above: Order Comment: Speci men Type: BLOOD SPECIMENOrdering Facility: [facility] Address: [address] [place] [address] Performed By: #### 5 7021-8 ####[facility] [id number] [place] [address] Eosinophils (Bld) [#/Vol] 0.15 10*3/uL Normal <0.46 [facility] Comment on above: Order Comment: Speci men Type: BLOOD SPECIMENOrdering Facility: [facility] Address: [address] [place] [address] Performed By: #### 5 7021-8 ####[facility] [id number] [place] [address] Eosinophils/100 WBC (Bld) 2.2 % Normal [facility] Comment on above: Order Comment: Speci men Type: BLOOD SPECIMENOrdering Facility: [facility] Address: [address] [place] [address] Performed By: #### 5 7021-8 ####[facility] [id number] [place] [address] Erythrocyte distribution width (RBC) [Ratio] 14.2 % Normal 11.5-15.0 [facility] Comment on above: Order Comment: Speci men Type: BLOOD SPECIMENOrdering Facility: [facility] Address: [address] [place] [address] Performed By: #### 5 7021-8 ####[facility] LABCLIA [id number] [place] [address] Hematocrit (Bld) [Volume fraction] 41.8 % Normal 36.0-46.0 [facility] Comment on above: Order Comment: Speci men Type: BLOOD SPECIMENOrdering Facility: [facility] Address: [address] [place] [address] Performed By: #### 5 7021-8 ####[facility] LABCLIA [id number] [place] [address] Hemoglobin (Bld) [Mass/Vol] 13.5 g/dL Normal 11.5-15.5 [facility] Comment on above: Order Comment: Speci men Type: BLOOD SPECIMENOrdering Facility: [facility] Address: [address] [place] [address] Performed By: #### 5 7021-8 ####[facility] LABCLIA [id number] [place] [address] Immature granulocytes (Bld) [#/Vol] 0.03 10*3/uL Normal <0.10 [facility] Comment on above: Order Comment: Speci men Type: BLOOD SPECIMENOrdering Facility: [facility] Address: [address] [place] [address] Performed By: #### 5 7021-8 ####[facility] LABCLIA [id number] [place] [address] Immature granulocytes/100 WBC (Bld) 0.4 % Normal [facility] Comment on above: Order Comment: Speci men Type: BLOOD SPECIMENOrdering Facility: [facility] Address: [address] [place] [address] Performed By: #### 5 7021-8 ####[facility] LABIA [id number] [place] [address] Lymphocytes (Bld) [#/Vol] 1.76 10*3/uL Normal 1.00-4.00 [facility] Comment on above: Order Comment: Speci men Type: BLOOD SPECIMENOrdering Facility: [facility] Address: [address] [place] [address] Performed By: #### 5 7021-8 ####[facility] LABCLIA [id number] [place] [address] Lymphocytes/100 WBC (Bld) 26.3 % Normal [facility] Comment on above: Order Comment: Speci men Type: BLOOD SPECIMENOrdering Facility: [facility] Address: [address] [place] [address] Performed By: #### 5 7021-8 ####[facility] LABIA [id number] [place] [address] MCH (RBC) [Entitic mass] 28.4 pg Normal 26.0-34.0 [facility] Comment on above: Order Comment: Speci men Type: BLOOD SPECIMENOrdering Facility: [facility] Address: [address] [place] [address] Performed By: #### 5 7021-8 ####[facility] LABCLIA [id number] [place] [address] MCHC (RBC) [Mass/Vol] 32.3 g/dL Normal 30.5-36.0 [facility] Comment on above: Order Comment: Speci men Type: BLOOD SPECIMENOrdering Facility: [facility] Address: [address] [place] [address] Performed By: #### 5 7021-8 ####[facility] LABCLIA [id number] [place] [address] MCV (RBC) [Entitic vol] 88.0 fL Normal 80.0-100.0 [facility] Comment on above: Order Comment: Speci men Type: BLOOD SPECIMENOrdering Facility: [facility] Address: [address] [place] [address] Performed By: #### 5 7021-8 ####[facility] LABCLIA [id number] [place] [address] Monocytes (Bld) [#/Vol] 0.47 10*3/uL Normal <0.87 [facility] Comment on above: Order Comment: Speci men Type: BLOOD SPECIMENOrdering Facility: [facility] Address: [address] [place] [address] Performed By: #### 5 7021-8 ####[facility] LABCLIA [id number] [place] [address] Monocytes/100 WBC (Bld) 7.0 % Normal [facility] Comment on above: Order Comment: Speci men Type: BLOOD SPECIMENOrdering Facility: [facility] Address: [address] [place] [address] Performed By: #### 5 7021-8 ####[facility] LABCLIA [id number] [place] [address] Neutrophils (Bld) [#/Vol] 4.22 10*3/uL Normal 1.45-7.50 [facility] Comment on above: Order Comment: Speci men Type: BLOOD SPECIMENOrdering Facility: [facility] Address: [address] [place] [address] Performed By: #### 5 7021-8 ####[facility] LABCLIA [id number] [place] [address] Neutrophils/100 WBC (Bld) 63.1 % Normal [facility] Comment on above: Order Comment: Speci men Type: BLOOD SPECIMENOrdering Facility: [facility] Address: [address] [place] [address] Performed By: #### 5 7021-8 ####[facility] LABCLIA [id number] [place] [address] Nucleated RBC (Bld) [#/Vol] 10*3/uL Normal <0.01 [facility] Comment on above: Order Comment: Speci men Type: BLOOD SPECIMENOrdering Facility: [facility] Address: [address] [place] [address] Performed By: #### 5 7021-8 ####[facility] LABCLIA [id number] [place] [address] Nucleated RBC/100 WBC (Bld) [Ratio] 0.0 /100 WBC Normal [facility] Comment on above: Order Comment: Speci men Type: BLOOD SPECIMENOrdering Facility: [facility] Address: [address] [place] [address] Performed By: #### 5 7021-8 ####[facility] LABCLIA [id number] [place] [address] Platelet mean volume (Bld) [Entitic vol] 9.2 fL Normal 9.0-12.7 [facility] Comment on above: Order Comment: Speci men Type: BLOOD SPECIMENOrdering Facility: [facility] Address: [address] [place] [address] Performed By: #### 5 7021-8 ####[facility] LABCLIA [id number] [place] [address] Platelets (Bld) [#/Vol] 267 10*3/uL Normal 150-400 [facility] Comment on above: Order Comment: Speci men Type: BLOOD SPECIMENOrdering Facility: [facility] Address: [address] [place] [address] Performed By: #### 5 7021-8 ####[facility] LABIA [id number] [place] [address] RBC (Bld) [#/Vol] 4.75 10*6/uL Normal 3.90-5.20 [facility] Comment on above: Order Comment: Speci men Type: BLOOD SPECIMENOrdering Facility: [facility] Address: [address] [place] [address] Performed By: #### 5 7021-8 ####[facility] [id number] [place] [address] WBC (Bld) [#/Vol] 6.70 10*3/uL Normal 3.70-11.00 [facility] Comment on above: Order Comment: Speci men Type: BLOOD SPECIMENOrdering Facility: [facility] Address: [address] [place] [address] Performed By: #### 5 7021-8 ####[facility] [id number] [place] [address] [facility] 09-11-2023 [facility] Nurse Visit (HEMASA) IVONNE CESPEDES ([id number]) 1955 F Date Time Provider Department 09/11/23 2:45 PM RAFA VILLASENOR During your visit today, we recorded the following information about you: Carri Walker 09/11/2023 2:54 PM Signed Patient Identification confirmed: yes. Injection given and documented on OCT per provider order. Carri Walker Referring Provider: MAIKEL LUNSFORD [[id number]] Allergies As of Date: 09/11/2023 Noted Allergy Reaction BUPROPION 12/22/2004 12 - Shortness of Breath ZYBAN (BUPROPION HCL (SMOKING DET*11/07/2018 12 - Shortness of Breath Date Reviewed: 09/11/2023 Reviewed by: Desirae Sargent MA - Fully Assessed Primary Visit Diagnosis:Anemia, unspecified type [D64.9] Other Visit Diagnosis:Megaloblas tic anemia due to vitamin B12 deficiency [D53.1] Order(s):TREATMENT PARAMETER-NOT NEEDED [[id number]] Order #: [id number]: 1 [] cyanocobalamin 1,000 mcg injectionDisp: Rfl: [...] B12 deficie*03/13/2023 Visit Notes: >> Carri Walker Wed Sep 11, 2023 2:53 PM Status: Signed Patient Identification confirmed: yes. Injection given and documented on OCT per provider order. Carri Walker Prescriptions ordered this encounter Disp Refills Start End CYANOCOBALAMIN (VIT B-12) 1,000 MCG/* 09/11/2023 09/11/2023 Route: INTRAMUSCULA Encounter Status:Closed by CARRI WALKER on 09/11/23 [facility] CNOVSPon 09-11-2023 CNOVSP Visit (SP) Office (HEMASA) IVONNE CESPEDES ([id number]) 1955 F Date Time Provider Department 09/11/23 2:30 PM MAIKEL LUNSFORD During your visit today, [...] PM Signed NAME: Ivonne Cespedes CLINIC NO.: [id number] DATE OF SERVICE: September 11, 2023 (Martín) [...] every 12 weeks RTC in 24 weeks - HPI: CASE HISTORY: Reverse Chronological Order 06/06/2023 - Mammogram: category 2 benign 02/13/2023 - B12 level 144 11/01/2022 - CBC 5.7 > 13.5/41.6 < 218 normal differential. March 2022 FibroScan F0-F1 no steatosis. 01/2022 - CT scan abdomen pelvis at [facility] hepatomegaly with hepatic steatosis. 06/2021 - CT abdomen pelvis right retrocrural lymph node. November 25, [address] 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 The estrogen receptor was positive at 10-20% with progesterone receptor negative DCIS Right Breast - [facility] 10/22/2018 - mammogram showing suspicious changes in [...] Visit, June 05, 2023: Mammogram done in [place] yesterday Was told she has pancreatic insufficiency B12 levels remain low. Initial Visit, March 13, 2023: Ivonne Cespedes presents today Hematology and Oncology evaluation. 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 [...] is referred for evaluation of B12 supplementation. - REVIEW OF SYSTEMS Per HPI and otherwise negative by full review of organ systems. - ECOG PERFORMANCE STATUS: 0 PHYSICAL EXAMINATION: Vitals: [...] no sign (more content not included)... Normal [facility] Comprehensive metabolic 2000 panelon 09-11-2023 Albumin [Mass/Vol] 4.0 g/dL Normal 3.9-4.9 [facility] Comment on above: Order Comment: Speci men Type: BLOOD SPECIMEN [facility] Address: [address] [place] [address] Performed By: #### 5 7021-8 #### [facility] CLIA [id number] [address] [place] [address] ALP [Catalytic activity/Vol] 100 U/L Normal 34-123 [facility] Comment on above: Order Comment: Speci men Type: BLOOD SPECIMEN [facility] Address: [address] [place] [id number] Performed By: #### 5 7021-8 #### [facility] CLIA [id number] [address] [place] [address] ALT [Catalytic activity/Vol] 15 U/L Normal 7-38 [facility] Comment on above: Order Comment: Speci men Type: BLOOD SPECIMEN [facility] Address: [address] [place] [address] Performed By: #### 5 7021-8 #### [facility] CLIA [id number] [address] [place] [address] Anion gap [Moles/Vol] 9 mmol/L Normal 9-18 [facility] Comment on above: Order Comment: Speci men Type: BLOOD SPECIMEN [facility] Address: [address] [place] [address] Performed By: #### 5 7021-8 #### [facility] CLIA [id number] [address] [place] [address] AST [Catalytic activity/Vol] 20 U/L Normal 13-35 [facility] Comment on above: Order Comment: Speci men Type: BLOOD SPECIMEN [facility] Address: [address] [place] [address] Performed By: #### 5 7021-8 #### [facility] CLIA [id number] [address] [place] [address] Bilirubin [Mass/Vol] 0.2 mg/dL Normal 0.2-1.3 [facility] Comment on above: Order Comment: Speci men Type: BLOOD SPECIMEN [facility] Address: [address] [place] [address] Performed By: #### 5 7021-8 #### [facility] CLIA [id number] [address] [place] [address] Calcium [Mass/Vol] 9.5 mg/dL Normal 8.5-10.2 [facility] Comment on above: Order Comment: Speci men Type: BLOOD SPECIMEN [facility] Address: [address] [place], [place] [address] Performed By: #### 5 7021-8 #### [facility] CLIA [id number] [address] [place] [address] Chloride [Moles/Vol] 106 mmol/L High 97-105 [facility] Comment on above: Order Comment: Speci men Type: BLOOD SPECIMEN [facility] Address: [address] [place] [address] Performed By: #### 5 7021-8 #### [facility] CLIA [id number] [address] [place] [address] CO2 [Moles/Vol] 28 mmol/L Normal 22-30 [facility] Comment on above: Order Comment: Speci men Type: BLOOD SPECIMEN [facility] Address: [address] [place] [address] Performed By: #### 5 7021-8 #### [facility] CLIA [id number] [address] [place] [address] Creatinine [Mass/Vol] 0.54 mg/dL Low 0.58-0.96 [facility] Comment on above: Order Comment: Speci men Type: BLOOD SPECIMEN [facility] Address: [address] [place] [address] Performed By: #### 5 7021-8 #### [facility] CLIA [id number] [address] [place] [address] Creatinine and Glomerular filtration rate.predicted panel (S/P/Bld) 99 mL/min/1.73m??? Normal >=60 [facility] Comment on above: Order Comment: Eusebio joya Type: BLOOD SPECIMEN [facility] Address: [address] [place] [address] Result Comment: Angela mated Glomerular Filtration Rate [...] accurately reflect actual GFR. Performed By: #### 5 7021-8 #### [facility] CLIA [id number] [address] [place] [address] Glucose [Mass/Vol] 119 mg/dL High 74-99 [facility] Comment on above: Order Comment: Eusebio joya Type: BLOOD SPECIMEN [facility] Address: [address] [place] [address] Result Comment: The [place] Diabetes Association (ADA) provides guidance for cutoff [...] Standards of Medical Care in Diabetes 2016, [place] [employer]. Diabetes Care. 2016.39(Suppl 1). Performed By: #### 5 7021-8 #### [facility] CLIA [id number] [address] [place] [address] Potassium [Moles/Vol] 4.4 mmol/L Normal 3.7-5.1 [facility] Comment on above: Order Comment: Eusebio joya Type: BLOOD SPECIMEN [facility] Address: [address] [place] [address] Performed By: #### 5 7021-8 #### [facility] CLIA [id number] [address] [place] [address] Protein [Mass/Vol] 7.5 g/dL Normal 6.3-8.0 [facility] Comment on above: Order Comment: Speci men Type: BLOOD SPECIMEN [facility] Address: [address] [place] [address] Performed By: #### 5 7021-8 #### [facility] CLIA [id number] [address] [place] [address] Sodium [Moles/Vol] 143 mmol/L Normal 136-144 [facility] Comment on above: Order Comment: Speci men Type: BLOOD SPECIMEN [facility] Address: [address] [place] [address] Performed By: #### 5 7021-8 #### [facility] CLIA [id number] [address] [place] [address] Urea nitrogen [Mass/Vol] 10 mg/dL Normal 7-21 [facility] Comment on above: Order Comment: Speci men Type: BLOOD SPECIMEN [facility] Address: [address] [place] [address] Performed By: #### 5 7021-8 #### [facility] CLIA [id number] [address] [place] [address] Ferritin SerPl-mCncon 2023 Ferritin [Mass/Vol] 35.3 ng/mL Normal 14.7-205.1 [facility] Comment on above: Order Comment: Speci men Type: BLOOD SPECIMENOrdering Facility: [facility] Address: [address] [place] [address] Performed By: #### 5 0190-8, 2276-4, 2284-8, 2132-9 ####[facility] LABCLIA [id number] [facility] [place] [address] [place] Folate SerPl-mCncon 09-11-19 24 Folate [Mass/Vol] 14.3 ng/mL Normal >4.7 [facility] Comment on above: Order Comment: Speci men Type: BLOOD SPECIMENOrdering Facility: [facility] Address: [address] [place] [address] Performed By: #### 5 0190-8, 6-4, 8, 2132-04 ####[facility] LABCLIA [id number] [place] [address] [place] Iron and Iron binding capaci ty panelon 09-11-2023 Iron [Mass/Vol] 54 ug/dL Normal 41-186 [facility] Comment on above: Order Comment: Speci men Type: BLOOD SPECIMENOrdering Facility: [facility] Address: [address] [place] [address] Performed By: #### 5 0190-8, 4, 2284-03, 2132-04 ####[facility] LABCLIA [id number] [place] [address] [place] Iron binding capacity [Mass/Vol] 380 ug/dL Normal 232-386 [facility] Comment on above: Order Comment: Speci men Type: BLOOD SPECIMENOrdering Facility: [facility] Address: [address] [place] [address] Performed By: #### 5 0190-8, 4, 2284-03, 2132-04 ####[facility] LABCLIA [id number] [place] [address] [place] Iron/TIBC [Molar ratio] 14.2 % Low 15.0-57.0 [facility] Comment on above: Order Comment: Speci men Type: BLOOD SPECIMENOrdering Facility: [facility] Address: [address] [place] [address] Performed By: #### 5 0190-8, 2275-4, 8, 2132-04 ####[facility] LABCLIA [id number] [place] [address] [place] Magnesium SerPl-mCncon 09-11 Magnesium [Mass/Vol] 2.4 mg/dL High 1.7-2.3 [facility] Comment on above: Order Comment: Speci men Type: BLOOD SPECIMEN [facility] Address: [address] [place] [address] Performed By: #### 1 9123-9 #### [facility] CLIA [id number] [address] [place] [id number] Vit B12 SerPl-ncon 024 Cobalamin (Vitamin B12) [Mass/Vol] 395 pg/mL Normal 232-1245 [facility] Comment on above: Order Comment: Speci men Type: BLOOD SPECIMENOrdering Facility: [facility] Address: [address] [place] [address] Performed By: #### 5 0190-8, 2276-4, 2284-8, 2132-9 ####[facility] LABCLIA [id number] [place] [id number] [place] Pancreatic Elastase, Fecalon 08-07-2023 Elastase.pancreatic (Stl) [Mass/Mass] 219 Invalid Interpretation Code >200 [facility] Comment on above: Result Comment: Lucia yates Pancreatic Insufficiency: <100 Moderate Pancreatic Insufficiency: 100 - 200 Normal: >200 Performed at: [facility] [address] [id number] MD Mohsen Urbina Performed By: #### 1 [id number] #### [facility] [address] [place] [address] [facility] 07-31-2023 [facility] Nurse Visit (HEMASA) IVONNE CESPEDES ([id number]) 1955 F Date Time Provider Department 07/31/23 2:00 PM [place] NURSE ERVIN VILLASENOR During your visit today, we recorded the following information about you: Temperature Pulse Respiration Blood pressure 97.1 degrees 161/minute 18/minute 78/46 Pepe Yadav 07/31/2023 2:28 PM Signed Patient came in for a b-12. Patient blood pressure low. Repeated. Pulse high. Patient complaining of lightheadedness,dizz y, and fatigue. Got Dr. Maikel Lunsford. Did an EKG while someone called 911. Pepe Pepe Reyes 07/31/2023 2:28 PM Signed EKG performed as ordered. Electronically sent to [facility] main. Placed paper copy in scan folder. 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 #:[id number]--[id number] ekg Prescriptions as of 08/01/2023 - levothyroxine (SYNTHROID) [...] low. Repeated. Pulse high. Patient complaining of lightheadedness,dizz y, and fatigue. Got Dr. Maikel Lunsford. Did an EKG while someone called 911. Pepe Yadav >> Pepe Yadav SatJul 31, 2023 2:25 PM Status: Signed EKG performed as ordered. Electronically sent to [facility] main. Placed paper copy in scan folder. Pepe Yadav Prescriptions ordered this encounter Disp Refills Start End CYANOCOBALAMIN (VIT B-12) 1,000 MCG/* 07/31/2023 08/01/2023 Route: INTRAMUSCULA Encounter Status:Closed by PEPE YADAV on 08/01/23 [facility] CESPEDES ([id number]) 1955 F Date Time Provider Department 07/31/23 [...] Status:Closed by MACARENA URRUTIA on 08/01/23 Normal [facility] COVID-19 / Flu A/B / RSV PCR [...] or Cepheid Disclaimer revoked sooner. PERFORMED BY: [facility] [address] [place] [address] PATHOLOGIST OUTSIDE CUTTER SHERRI DIETZ M.D. Normal [facility] Comment on above: Performed By: #### P TT, CMP, MG, HS TROP, CBC, T4T, TSH3, PT #### [facility] [address] [place] [address] [facility] CT head/brain wo [facility] 07[facility] [address] [address] [address] Scan Report Signed Patient: Ivonne Cespedes MR#: [id number] 10 : 1955 Acct:[id number] Age/Sex: 68 / F ADM Date: 07/31/23 Loc: ER Room: Type: PRE ER Attending Dr: Copies to: Beverley Ngo APRN Ordering Provider: Beverley Ngo APRN Date of Service: 07/31/23 CT/CT head/brain wo con: lightheadedness/dizz iness CT BRAIN WITHOUT CONTRAST: CLINICAL HISTORY: Dizziness, [...] Welsh Jr., D.O.07/31/2023 3:23 PM Dictation Location: [place] [address] Transcribed By: [facility] 07/31/23 1523 Dictated By: Max Welsh Jr, DO 07/31/23 1517 Signed By: 07/31/23 1523 Normal [facility] Cepheid COVID PCR Negativeon 07-31-2023 SARS-CoV-2 (COVID-19) RNA SARANYA+probe Ql (Unsp spec) Negative Normal Negative [facility] Comment on above: Result Comment: This is a duplicate Cepheid Xpert Xpress CoV-2/Flu/RSV Plus RNA by RT-PCR result to be used for statistical tracking purpose only. PERFORMED BY: [address] [address] PATHOLOGIST OUTSIDE CUTTER SHERRI DIETZ M.D. Performed By: #### P TT, CMP, MG, HS TROP, CBC, T4T, TSH3, PT #### [address] Complete Blood Count Auto Di ffon 07-31-2023 Basophils (Bld) [#/Vol] 0.1 10*3/uL Normal 0.0-0.2 [facility] Comment on above: Result Comment: PERF ORMED BY: [place] [address] PATHOLOGIST OUTSIDE CUTTER SHERRI DIETZ M.D. Performed By: #### P TT, CMP, MG, HS TROP, CBC, T4T, TSH3, PT #### [address] Basophils/100 WBC (Bld) 1.0 % Normal . [facility] Comment on above: Performed By: #### P TT, CMP, MG, HS TROP, CBC, T4T, TSH3, PT #### [address] Eosinophils (Bld) [#/Vol] 0.1 10*3/uL Normal 0.0-0.45 [facility] Comment on above: Performed By: #### P TT, CMP, MG, HS TROP, CBC, T4T, TSH3, PT #### [address] Eosinophils/100 WBC (Bld) 2.0 % Normal . [facility] Comment on above: Performed By: #### P TT, CMP, MG, HS TROP, CBC, T4T, TSH3, PT #### [address] Erythrocyte distribution width (RBC) [Ratio] 15.2 % Normal 11.9-15.3 [facility] Comment on above: Performed By: #### P TT, CMP, MG, HS TROP, CBC, T4T, TSH3, PT #### [address] Hematocrit (Bld) [Volume fraction] 38.7 % Normal 34.0-46.4 [facility] Comment on above: Performed By: #### P TT, CMP, MG, HS TROP, CBC, T4T, TSH3, PT #### [address] Hemoglobin (Bld) [Mass/Vol] 13.0 g/dL Normal 11.8-15.4 [facility] Comment on above: Performed By: #### P TT, CMP, MG, HS TROP, CBC, T4T, TSH3, PT #### [address] Lymphocytes (Bld) [#/Vol] 1.5 10*3/uL Normal 1.00-4.8 [facility] Comment on above: Performed By: #### P TT, CMP, MG, HS TROP, CBC, T4T, TSH3, PT #### [address] Lymphocytes/100 WBC (Bld) 25.8 % Normal . [facility] Comment on above: Performed By: #### P TT, CMP, MG, HS TROP, CBC, T4T, TSH3, PT #### [address] MCH (RBC) [Entitic mass] 29.2 pg Normal 24.7-34.3 [facility] Comment on above: Performed By: #### P TT, CMP, MG, HS TROP, CBC, T4T, TSH3, PT #### [address] MCV (RBC) [Entitic vol] 86.8 fL Normal 80-100 [facility] Comment on above: Performed By: #### P TT, CMP, MG, HS TROP, CBC, T4T, TSH3, PT #### [address] Mean Corpuscular HGB Conc 33.6 g/dL Normal 32.0-35.0 [facility] Comment on above: Performed By: #### P TT, CMP, MG, HS TROP, CBC, T4T, TSH3, PT #### [address] Monocytes (Bld) [#/Vol] 0.4 10*3/uL Normal 0.0-0.8 [facility] Comment on above: Performed By: #### P TT, CMP, MG, HS TROP, CBC, T4T, TSH3, PT #### [address] Monocytes/100 WBC (Bld) 19.41 % Normal 0.00-20.00 [facility] Comment on above: Performed By: #### P TT, CMP, MG, HS TROP, CBC, T4T, TSH3, PT #### [address] Monocytes/100 WBC (Bld) 6.6 % Normal . [facility] Comment on above: Performed By: #### P TT, CMP, MG, HS TROP, CBC, T4T, TSH3, PT #### [address] Neutrophils (Bld) [#/Vol] 3.7 10*3/uL Normal 1.8-7.7 [facility] Comment on above: Performed By: #### P TT, CMP, MG, HS TROP, CBC, T4T, TSH3, PT #### [address] Neutrophils/100 WBC (Bld) 64.6 % Normal . [facility] Comment on above: Performed By: #### P TT, CMP, MG, HS TROP, CBC, T4T, TSH3, PT #### [address] NRBC% 0.0 /100{WBC} Normal 0-0.5 [facility] Comment on above: Performed By: #### P TT, CMP, MG, HS TROP, CBC, T4T, TSH3, PT #### [address] Platelet mean volume (Bld) [Entitic vol] 7.5 fL Normal 6.3-10.7 [facility] Comment on above: Performed By: #### P TT, CMP, MG, HS TROP, CBC, T4T, TSH3, PT #### [address] Platelets (Bld) [#/Vol] 191 10*3/uL Normal 150-450 [facility] Comment on above: Performed By: #### P TT, CMP, MG, HS TROP, CBC, T4T, TSH3, PT #### [address] RBC (Bld) [#/Vol] 4.46 10*6/uL Normal 3.60-5.00 [facility] Comment on above: Performed By: #### P TT, CMP, MG, HS TROP, CBC, T4T, TSH3, PT #### [address] WBC (Bld) [#/Vol] 5.7 10*3/uL Normal 3.8-11.6 [facility] Comment on above: Performed By: #### P TT, CMP, MG, HS TROP, CBC, T4T, TSH3, PT #### [address] Comprehensive Metabolic Pane theresa 07-31-2023 Albumin [Mass/Vol] 3.5 g/dL Normal 3.5-5.7 [facility] Comment on above: Performed By: #### P TT, CMP, MG, HS TROP, CBC, T4T, TSH3, PT #### [address] Albumin/Globulin [Mass ratio] 1.3 {ratio} Normal [facility] Comment on above: Performed By: #### P TT, CMP, MG, HS TROP, CBC, T4T, TSH3, PT #### [address] ALP [Catalytic activity/Vol] 65 U/L Normal 34-104 [facility] Comment on above: Performed By: #### P TT, CMP, MG, HS TROP, CBC, T4T, TSH3, PT #### [address] ALT [Catalytic activity/Vol] 14 U/L Normal 7-52 [facility] Comment on above: Performed By: #### P TT, CMP, MG, HS TROP, CBC, T4T, TSH3, PT #### [address] Anion gap [Moles/Vol] 7.9 mmol/L Normal 6.0-15.0 [facility] Comment on above: Performed By: #### P TT, CMP, MG, HS TROP, CBC, T4T, TSH3, PT #### [address] AST [Catalytic activity/Vol] 16 U/L Normal 13-39 [facility] Comment on above: Performed By: #### P TT, CMP, MG, HS TROP, CBC, T4T, TSH3, PT #### [address] Bilirubin [Mass/Vol] 0.3 mg/dL Normal 0.3-1.0 [facility] Comment on above: Performed By: #### P TT, CMP, MG, HS TROP, CBC, T4T, TSH3, PT #### [address] Calcium [Mass/Vol] 9.0 mg/dL Normal 8.6-10.3 [facility] Comment on above: Performed By: #### P TT, CMP, MG, HS TROP, CBC, T4T, TSH3, PT #### [address] Chloride [Moles/Vol] 110 mmol/L High 98-107 [facility] Comment on above: Performed By: #### P TT, CMP, MG, HS TROP, CBC, T4T, TSH3, PT #### [address] CO2 [Moles/Vol] 25.8 mmol/L Normal 21.0-31.0 [facility] Comment on above: Performed By: #### P TT, CMP, MG, HS TROP, CBC, T4T, TSH3, PT #### [facility] [address] Creatinine [Mass/Vol] 0.67 mg/dL Normal 0.60-1.20 [facility] Comment on above: Performed By: #### P TT, CMP, MG, HS TROP, CBC, T4T, TSH3, PT #### [address] Creatinine Clr Calc Pharmacy 47.00 Normal [facility] Comment on above: Performed By: #### P TT, CMP, MG, HS TROP, CBC, T4T, TSH3, PT #### [address] GFR/1.73 sq M.predicted MDRD (S/P/Bld) [Vol rate/Area] mL/min/{1.73_m2} Normal [facility] Comment on above: Performed By: #### P TT, CMP, MG, HS TROP, CBC, T4T, TSH3, PT #### [facility] [address] Globulin (S) [Mass/Vol] 2.8 g/dL Normal [facility] Comment on above: Performed By: #### P TT, CMP, MG, HS TROP, CBC, T4T, TSH3, PT #### [address] Glucose [Mass/Vol] 108 mg/dL High 70-100 [facility] Comment on above: Result Comment: [place] Glucose Reference Range is dependent on time and content of last meal. Glucose of more than 200 mg/dL in a nonstressed, ambulatory subject supports the diagnosis of Diabetes Mellitus. ADA recommended reference range Performed By: #### P TT, CMP, MG, HS TROP, CBC, T4T, TSH3, PT #### [address] Potassium [Moles/Vol] 3.7 mmol/L Normal 3.5-5.1 [facility] Comment on above: Performed By: #### P TT, CMP, MG, HS TROP, CBC, T4T, TSH3, PT #### [address] Protein [Mass/Vol] 6.3 g/dL Low 6.4-8.9 [facility] Comment on above: Performed By: #### P TT, CMP, MG, HS TROP, CBC, T4T, TSH3, PT #### [address] Sodium [Moles/Vol] 140 mmol/L Normal 136-145 [facility] Comment on above: Performed By: #### P TT, CMP, MG, HS TROP, CBC, T4T, TSH3, PT #### [address] Urea nitrogen [Mass/Vol] 14 mg/dL Normal 7-25 [facility] Comment on above: Performed By: #### P TT, CMP, MG, HS TROP, CBC, T4T, TSH3, PT #### [address] Dipstick and Microscopicon 1 10-01-2022 Appearance (U) Cloudy Critically abnormal Clear [facility] Comment on above: Order Comment: Name Collection Type:: Clean-Voided Midstream Performed By: #### P TT, CMP, MG, HS TROP, CBC, T4T, TSH3, PT #### [address] Bacteria,Urine None Seen Normal None Seen [facility] Comment on above: Order Comment: Name Collection Type:: Clean-Voided Midstream Performed By: #### P TT, CMP, MG, HS TROP, CBC, T4T, TSH3, PT #### [address] Bilirubin,Urine Negative Normal Negative [facility] Comment on above: Order Comment: Name Collection Type:: Clean-Voided Midstream Performed By: #### P TT, CMP, MG, HS TROP, CBC, T4T, TSH3, PT #### [address] Calcium Oxalate Crystals,Urine 2+ Normal [facility] Comment on above: Order Comment: Name Collection Type:: Clean-Voided Midstream Performed By: #### P TT, CMP, MG, HS TROP, CBC, T4T, TSH3, PT #### [address] Coarse Granular Casts,Urine 1-2 High 0-1 [facility] Comment on above: Order Comment: Name Collection Type:: Clean-Voided Midstream Performed By: #### P TT, CMP, MG, HS TROP, CBC, T4T, TSH3, PT #### [address] Color (U) Dark Yellow Critically abnormal Yellow [facility] Comment on above: Order Comment: Name Collection Type:: Clean-Voided Midstream Performed By: #### P TT, CMP, MG, HS TROP, CBC, T4T, TSH3, PT #### [address] Glucose Ql (U) Normal Normal Normal [facility] Comment on above: Order Comment: Name Collection Type:: Clean-Voided Midstream Performed By: #### P TT, CMP, MG, HS TROP, CBC, T4T, TSH3, PT #### [place] [address] [place] Hyaline Casts,Urine 10-19 High 0-1 [facility] Comment on above: Order Comment: Name Collection Type:: Clean-Voided Midstream Performed By: #### P TT, CMP, MG, HS TROP, CBC, T4T, TSH3, PT #### [place] [address] [place] Ketones Ql (U) Trace High Negative [facility] Comment on above: Order Comment: Name Collection Type:: Clean-Voided Midstream Performed By: #### P TT, CMP, MG, HS TROP, CBC, T4T, TSH3, PT #### [address] [place] [address] [place] Leukocyte esterase Test strip Ql (U) 2+ High Negative [facility] Comment on above: Order Comment: Name Collection Type:: Clean-Voided Midstream Performed By: #### P TT, CMP, MG, HS TROP, CBC, T4T, TSH3, PT #### [address] Nitrite,Urine Negative Normal Negative [facility] Comment on above: Order Comment: Name Collection Type:: Clean-Voided Midstream Performed By: #### P TT, CMP, MG, HS TROP, CBC, T4T, TSH3, PT #### [address] Occult Blood,Urine Negative Normal Negative [facility] Comment on above: Order Comment: Name Collection Type:: Clean-Voided Midstream Result Comment: PERF ORMED BY: [place] [address] PATHOLOGIST OUTSIDE CUTTER SHERRI DIETZ M.D. Performed By: #### P TT, CMP, MG, HS TROP, CBC, T4T, TSH3, PT #### [address] Othe Crystals,Urine None Seen Normal [facility] Comment on above: Order Comment: Name Collection Type:: Clean-Voided Midstream Performed By: #### P TT, CMP, MG, HS TROP, CBC, T4T, TSH3, PT #### [address] pH (U) 5.5 [pH] Normal 5.0-9.0 [facility] Comment on above: Order Comment: Name Collection Type:: Clean-Voided Midstream Performed By: #### P TT, CMP, MG, HS TROP, CBC, T4T, TSH3, PT #### [address] Protein,Urine Trace High Negative [facility] Comment on above: Order Comment: Name Collection Type:: Clean-Voided Midstream Performed By: #### P TT, CMP, MG, HS TROP, CBC, T4T, TSH3, PT #### [address] RBC,Urine 3-4 Normal 0-4 [facility] Comment on above: Order Comment: Name Collection Type:: Clean-Voided Midstream Performed By: #### P TT, CMP, MG, HS TROP, CBC, T4T, TSH3, PT #### [address] Renal Epithelial Cells,Urine None Seen Normal 0-1 [facility] Comment on above: Order Comment: Name Collection Type:: Clean-Voided Midstream Performed By: #### P TT, CMP, MG, HS TROP, CBC, T4T, TSH3, PT #### [address] Specificy Gabbs,Urine 1.029 Normal 1.001-1.030 [facility] Comment on above: Order Comment: Name Collection Type:: Clean-Voided Midstream Performed By: #### P TT, CMP, MG, HS TROP, CBC, T4T, TSH3, PT #### [address] Squamous Epithelial Cell,Urine 5-9 High 0-2 [facility] Comment on above: Order Comment: Name Collection Type:: Clean-Voided Midstream Performed By: #### P TT, CMP, MG, HS TROP, CBC, T4T, TSH3, PT #### [address] Urobilinogen,Urine Normal Normal Normal [facility] Comment on above: Order Comment: Name Collection Type:: Clean-Voided Midstream Performed By: #### P TT, CMP, MG, HS TROP, CBC, T4T, TSH3, PT #### [address] WBC,Urine 10-19 High 0-4 [facility] Comment on above: Order Comment: Name Collection Type:: Clean-Voided Midstream Performed By: #### P TT, CMP, MG, HS TROP, CBC, T4T, TSH3, PT #### [facility] [address] White Blood Cell Casts,Urine 1-2 High None Seen [facility] Comment on above: Order Comment: Name Collection Type:: Clean-Voided Midstream Result Comment: PERF ORMED BY: [place] [address] PATHOLOGIST OUTSIDE CUTTER SHERRI DIETZ M.D. Performed By: #### P TT, CMP, MG, HS TROP, CBC, T4T, TSH3, PT #### [facility] [address] [place] [address] ECG 12 lead ECGon 07-31-2023 ECG 12 lead ECG [facility] [place] [address] [place] [address] Electrocardiograph Report Signed Patient: Ivonne Cespedes MR#: [id number] 10 : 1955 Acct:[id number] Age/Sex: 68 / F ADM Date: 07/31/23 Loc: ER Room: Type: [facility] ER Attending Dr: Ordering Provider: Beverley Ngo [...] was found Confirmed by Michoacano Angela DO ([id number]) on 08/01/2023 2:47:50 PM Referred By: Electronically Signed By:Michoacano Angela DO Transcribed By: MUS Signed By Michoacano Angela DO 3 1448 Normal [facility] [id number] 07-31-2023 ECG01 Ventricular Rate : 148 BPM Atrial Rate : 150 BPM QRS Duration : 112 ms Q-T Interval : 308 ms QTC Calculation(Bazett) : 483 ms Calculated R Casey : 53 degrees Calculated T Casey : 74 degrees SUPRAVENTRICULAR TACHYCARDIA WITH SHORT RP INTERVAL, CONSIDER AVNRT ABNORMAL ECG Confirmed by CAITIE LAND MD ([id number]) on 08/30/2023 9:42:57 AM NAME : IVONNE CESPEDES PID : [id number] : 1955 Gender : Female Race : ORD : Procedure Date : Jul 31 2023 15:22:43 Edit Date : Aug 30 2023 09:43:01 Diagnosis: SUPRAVENTRICULAR TACHYCARDIA WITH SHORT RP INTERVAL, CONSIDER AVNRT ABNORMAL ECG Confirmed by CAITIE LAND MD ([id number]) on 08/30/2023 9:42:57 AM Test Reason : Location : [facility] [place] [facility] [place] Overread By : CAITIE LAND MD Edited By : CAITIE LAND MD Referred By : MAIKEL LUNSFORD Acquired by : , Maddie [facility] Magnesiumon 07-31-2023 Magnesium [Mass/Vol] 2.0 mg/dL Normal 1.9-2.7 [facility] Comment on above: Performed By: #### P TT, CMP, MG, HS TROP, CBC, T4T, TSH3, PT #### [place] [id number] [facility] Partial Thromboplastin Timeo n 07-31-2023 aPTT Coag (Bld) [Time] 31.1 s Normal 25.1-36.5 [facility] Comment on above: Result Comment: A he matocrit value greater than 55% may lead to inaccurate results in coagulation testing. Patients having hematocrit values >55% require a special collection tube for coagulation studies. Please contact the laboratory at [phone] for redraw instructions. PERFORMED BY: [place] [id number] PATHOLOGIST OUTSIDE CUTTER SHERRI DIETZ M.D. Performed By: #### P TT, CMP, MG, HS TROP, CBC, T4T, TSH3, PT #### [address] [address] [facility] Prothrombin Time INRon 07-31 INR Coag (PPP) [Relative time] 0.9 {INR} Normal [facility] Comment on above: Result Comment: INR Therapeutic [...] HS TROP, CBC, T4T, TSH3, PT #### [address] PT Coag (PPP) [Time] 11.3 s Normal 9.0-12.9 [facility] Comment on above: Result Comment: A he matocrit value greater than 55% may lead to inaccurate results in coagulation testing. Patients having hematocrit values >55% require a special collection tube for coagulation studies. Please contact the laboratory at [phone] for redraw instructions. Performed By: #### P TT, CMP, MG, HS TROP, CBC, T4T, TSH3, PT #### [address] Thyroid Stimulating Hormoneo n 07-31-2023 TSH Qn 6.53 m[IU]/L High 0.45-5.33 [facility] Comment on above: Result Comment: PERF ORMED BY: [place] [address] PATHOLOGIST OUTSIDE CUTTER SHERRI DIETZ M.D. Performed By: #### P TT, CMP, MG, HS TROP, CBC, T4T, TSH3, PT #### [address] Thyroxine (T4) Totalon 07-31 T4 [Mass/Vol] 9.15 ug/dL Normal 5.39-11.82 [facility] Comment on above: Performed By: #### P TT, CMP, MG, HS TROP, CBC, T4T, TSH3, PT #### [place] [id number] [facility] Troponin I High Sensitivityo n 07-31-2023 Troponin I High Sensitivity 7.0 pg/mL Normal 0.0-15.0 [facility] Comment on above: Result Comment: PERF ORMED BY: [place] [address] PATHOLOGIST OUTSIDE CUTTER SHERRI DIETZ M.D. Performed By: #### P TT, CMP, MG, HS TROP, CBC, T4T, TSH3, PT #### [facility] [address] [place] [id number] [facility] Urine Cultureon 07-31-2023 Bacteria identified Cx Nom (U) ORGANISM: Escherichia coli (O:ESCCOL) [place] Count 15,000 Aerobic DAVIN Charge (NMIC56) ----- SUSCEPTIBILITY ---- ORGANISM: O:ESCCOL ANTIBIOTIC INTERPRETATION DAVIN Amikacin S <16 Amoxacillin/K Clavulanate S <8 Ampicillin S <8 Ampicillin/Sulbactam S <4 Aztreonam S <4 Cefazolin S <2 Cefepime S <2 Ceftazidime S <1 Ceftazidime/Avibacta m S <4 Ceftolozane/Tazobact am S <2 Ceftriaxone S <1 Cefuroxime S <4 Ciprofloxacin S <0.25 Ertapenem S <0.5 Gentamicin S <2 Levofloxacin S <0.5 Meropenem S <1 Meropenem/Vaborbacta m S <2 Nitrofurantoin S <32 Piperacillin/Tazobac ramirez S <8 Tetracycline S <4 Tigecycline S <2 Tobramycin S <2 Trimethoprim/Sulfame thoxazole S <0.5 S = SUSCEPTIBLE I = [...] RESISTANT TO ALL B-LACTAM DRUGS. PERFORMED BY: [facility] [address] [place] [address] PATHOLOGIST OUTSIDE CUTTER SHERRI DIETZ M.D. Normal [facility] Comment on above: Performed By: #### P TT, CMP, MG, HS TROP, CBC, T4T, TSH3, PT #### [facility] [address] [place] [id number] [facility] XR chest 2V*on 07-31-2023 XR chest 2V* [facility] [address] [place] [address] [place] [address] XRay Report Signed Patient: Ivonne Cespedes MR#: [id number] 10 : 1955 Acct:[id number] Age/Sex: 68 / F ADM Date: 07/31/23 Loc: ER Room: Type: [facility] ER Attending Dr: Copies to: Beverley [...] Welsh Jr., D.O.07/31/2023 3:33 PM Dictation Location: [place] [address] Transcribed By: [facility] 07/31/23 1533 Dictated By: Max Welsh Jr, DO 07/31/23 1523 Signed By: 07/31/23 1533 Normal [facility] Consultation Noteon 07-26-20 Consultation Note [id number] Normal [facility] Gastroenterology Office/Clin ic Noteon 07-26-2023 Gastroenterology Office/Clinic Note Chief Complaint Abdominal pain. HPI Staff This is a 68 year old female who presents today for a follow-up from 06/26/23. History of Present Illness Patient is a 68-year-old female who presents for follow-up. Patient was previously evaluated 06/26/2023 and has history of pancreatic insufficiency?previo us fecal pancreatic elastase testing 05/2022 was low at 88. Patient also with history of fatty liver disease and IBS with diarrhea. Patient was previously evaluated by Dr. Hameed 09/2022 for RUQ and epigastric pain and advised to follow-up with [facility]. Previous labs 10/2022 revealed normal H&H, [...] diverticulitis. Patient had repeat CT 01/[address] [facility] that showed hepatomegaly and hepatic steatosis. [...] epigastric region. She reported she was taking [id number] pancreatic enzymes and did not wish to take Creon anymore. Patient also reported she was not taking Questran however was interested in trying Questran again. Patient was ordered repeat fecal pancreatic elastase and was educated that I was unable to recommend goaw-cil-ljtlnpt pancreatic enzymes as they are not approved [...] well nourished, in no acute distress Head: Normocephalic/atraum atic Lungs: Normal respiratory effort and clear to [...] specified diseases of pancreas) History of pancreatic insufficiency?previo us fecal pancreatic elastase testing 05/2022 was low at 88. Previous labs 10/2022 revealed normal H&H, normal BUN, normal creatinine, normal liver enzymes and normal vitamin A and E. Recent B12 01/2023 had improved at 144. During previous evaluation, patient explained Creon was too expensive and did not want assistance re (more content not included)... Normal [place] [facility] Comment on above: Result Comment: Renae guoally Signed By: Rosa Shearer CNP\.nikhil\Date and Time Signed: 07/26/23 14:25 EST Patient [...] Bulgur wheat. Millet. Quinoa. Bran muffins. Popcorn. [place] wafer crackers. Meats and other proteins [place] beans, kidney beans, and foss beans. Soybeans. [...] Cream cheese. Sour cream. Fats and oils Tappen. Beverages Soft drinks. Other foods Cakes and [...] Document Revised: (more content not included)... [facility] Nurse Visit (JACKLYN) IVONNE CESPEDES ([id number]) 1955 F Date Time Provider Department 07/03/23 [...] order. Carri Walker Referring Provider: MAIKEL LUNSFORD [[id number]] Allergies As of Date: 07/03/2023 Noted Allergy Reaction BUPROPION 12/22/2004 12 - Shortness of Breath ZYBAN (BUPROPION HCL (SMOKING DET*11/07/2018 12 - Shortness of Breath Date Reviewed: 06/05/2023 Reviewed by: Desirae Sargent MA - Fully Assessed Primary Visit Diagnosis:Anemia, unspecified type [D64.9] Other Visit Diagnosis:Megaloblas tic anemia due to vitamin B12 deficiency [D53.1] [...] Status:Closed by CARRI WALKER on 07/03/23 Normal [facility] Gastroenterology Office/Clin ic Noteon 06-26-2023 Gastroenterology Office/Clinic Note Chief Complaint Abdominal pain, cramping and loose stool. HPI Staff This is a 68 year old female who presents today for a follow-up from 03/26/23 office visit. History of Present Illness Patient is a 68-year-old female who presents for follow-up. Patient was previously evaluated 03/26/2023 and has history of pancreatic insufficiency?previo us fecal pancreatic elastase testing 05/2022 was low at 88. Patient also with history of fatty liver disease and IBS with diarrhea. Patient was previously evaluated by Dr. Hameed 09/2022 for RUQ and epigastric pain and advised to follow-up with [facility]. Previous labs 10/2022 revealed normal H&H, [...] diverticulitis. Patient had repeat CT 01/[address] [facility] that showed hepatomegaly and hepatic steatosis. [...] well nourished, in no acute distress Head: Normocephalic/atraum atic Lungs: Normal respiratory effort and clear to auscultation Cardio: Regular rate and rhythm, normal S1 and S2, no murmur, no rub Abdomen: Soft, non-distended, non-tender. Normoactive bowel sounds present in all 4 abdominal quadrants, bilaterally. Mental Status: Alert and oriented x3. Normal mood and affect Assessment/Plan 1. Pancreatic insufficiency (K86.89: Other specified diseases of pancreas) History of pancreatic insufficiency?previo us fecal pancreatic elastase testing 05/2022 was low [...] evaluate for food triggers. Previous colonoscopy in 2016 revealed suboptimal prep, diverticulosis, transverse colon polyp that pathology revealed was inflammatory reactive polyp and was to repeat colonoscopy in 1 year. Repeat colonoscopy 04/2021 revealed normal terminal ileum, d (more content not included)... Normal [facility] Comment on above: Result Comment: Elec tronically Signed By: Rosa Shearer CNP\.nikhil\Date and Time Signed: 06/26/23 13:13 EDT Patient [...] liquor (44 mL). General instructions ? Take twzc-ani-kkcmjyy and prescription medicines only as told by [...] 11/30/2020 D (more content not included)... Normal [facility] CBC W Auto Differential pane l (Bld)on 06-05-2023 Basophils (Bld) [#/Vol] 0.05 10*3/uL Normal <0.11 [facility] Comment on above: Order Comment: Speci men Type: BLOOD SPECIMENOrdering Facility: [facility] Address: [address] [place] [address] Performed By: #### 5 7021-8 ####[facility] LABCLIA [id number] [place] [address] Basophils/100 WBC (Bld) 0.9 % Normal [facility] Comment on above: Order Comment: Speci men Type: BLOOD SPECIMENOrdering Facility: [facility] Address: [address] [place] [address] Performed By: #### 5 7021-8 ####[facility] LABCLIA [id number] [place] [address] Differential cell count method Nom (Bld) Auto Normal [facility] Comment on above: Order Comment: Speci men Type: BLOOD SPECIMENOrdering Facility: [facility] Address: [address] [place] [address] Performed By: #### 5 7021-8 ####[facility] LABCLIA [id number] [place] [address] Eosinophils (Bld) [#/Vol] 0.23 10*3/uL Normal <0.46 [facility] Comment on above: Order Comment: Speci men Type: BLOOD SPECIMENOrdering Facility: [facility] Address: [address] [place] [address] Performed By: #### 5 7021-8 ####[facility] LABCLIA [id number] [place] [address] Eosinophils/100 WBC (Bld) 3.9 % Normal [facility] Comment on above: Order Comment: Speci men Type: BLOOD SPECIMENOrdering Facility: [facility] Address: [address] [place] [address] Performed By: #### 5 7021-8 ####[facility] LABCLIA [id number] [place] [address] Erythrocyte distribution width (RBC) [Ratio] 14.8 % Normal 11.5-15.0 [facility] Comment on above: Order Comment: Speci men Type: BLOOD SPECIMENOrdering Facility: [facility] Address: [address] [place] [address] Performed By: #### 5 7021-8 ####[facility] LABCLIA [id number] [place] [address] Hematocrit (Bld) [Volume fraction] 39.7 % Normal 36.0-46.0 [facility] Comment on above: Order Comment: Speci men Type: BLOOD SPECIMENOrdering Facility: [facility] Address: [address] [place] [address] Performed By: #### 5 7021-8 ####[facility] LABIA [id number] [place] [address] Hemoglobin (Bld) [Mass/Vol] 12.8 g/dL Normal 11.5-15.5 [facility] Comment on above: Order Comment: Speci men Type: BLOOD SPECIMENOrdering Facility: [facility] Address: [address] [place] [address] Performed By: #### 5 7021-8 ####[facility] LABIA [id number] [place] [address] Immature granulocytes (Bld) [#/Vol] 10*3/uL Normal <0.10 [facility] Comment on above: Order Comment: Speci men Type: BLOOD SPECIMENOrdering Facility: [facility] Address: [address] [place] [address] Performed By: #### 5 7021-8 ####[facility] LABCLIA [id number] [place] [address] Immature granulocytes/100 WBC (Bld) 0.2 % Normal [facility] Comment on above: Order Comment: Speci men Type: BLOOD SPECIMENOrdering Facility: [facility] Address: [address] [place] [address] Performed By: #### 5 7021-8 ####[facility] LABCLIA [id number] [place] [address] Lymphocytes (Bld) [#/Vol] 2.03 10*3/uL Normal 1.00-4.00 [facility] Comment on above: Order Comment: Speci men Type: BLOOD SPECIMENOrdering Facility: [facility] Address: [address] [place] [address] Performed By: #### 5 7021-8 ####[facility] LABCLIA [id number] [place] [address] Lymphocytes/100 WBC (Bld) 34.7 % Normal [facility] Comment on above: Order Comment: Speci men Type: BLOOD SPECIMENOrdering Facility: [facility] Address: [address] [place] [address] Performed By: #### 5 7021-8 ####[facility] LABCLIA [id number] [place] [address] MCH (RBC) [Entitic mass] 28.6 pg Normal 26.0-34.0 [facility] Comment on above: Order Comment: Speci men Type: BLOOD SPECIMENOrdering Facility: [facility] Address: [address] [place] [address] Performed By: #### 5 7021-8 ####[facility] LABIA [id number] [place] [address] MCHC (RBC) [Mass/Vol] 32.2 g/dL Normal 30.5-36.0 [facility] Comment on above: Order Comment: Speci men Type: BLOOD SPECIMENOrdering Facility: [facility] Address: [address] [place] [address] Performed By: #### 5 7021-8 ####[facility] LABCLIA [id number] [place] [address] MCV (RBC) [Entitic vol] 88.8 fL Normal 80.0-100.0 [facility] Comment on above: Order Comment: Speci men Type: BLOOD SPECIMENOrdering Facility: [facility] Address: [address] [place] [address] Performed By: #### 5 7021-8 ####[facility] LABCLIA [id number] [place] [address] Monocytes (Bld) [#/Vol] 0.54 10*3/uL Normal <0.87 [facility] Comment on above: Order Comment: Speci men Type: BLOOD SPECIMENOrdering Facility: [facility] Address: [address] [place] [address] Performed By: #### 5 7021-8 ####[facility] LABCLIA [id number] [place] [address] Monocytes/100 WBC (Bld) 9.2 % Normal [facility] Comment on above: Order Comment: Speci men Type: BLOOD SPECIMENOrdering Facility: [facility] Address: [address] [place] [address] Performed By: #### 5 7021-8 ####[facility] LABCLIA [id number] [place] [address] Neutrophils (Bld) [#/Vol] 2.99 10*3/uL Normal 1.45-7.50 [facility] Comment on above: Order Comment: Speci men Type: BLOOD SPECIMENOrdering Facility: [facility] Address: [address] [place] [address] Performed By: #### 5 7021-8 ####[facility] LABCLIA [id number] [place] [address] Neutrophils/100 WBC (Bld) 51.1 % Normal [facility] Comment on above: Order Comment: Speci men Type: BLOOD SPECIMENOrdering Facility: [facility] Address: [address] [place] [address] Performed By: #### 5 7021-8 ####[facility] LABCLIA [id number] [place] [address] Nucleated RBC (Bld) [#/Vol] 10*3/uL Normal <0.01 [facility] Comment on above: Order Comment: Speci men Type: BLOOD SPECIMENOrdering Facility: [facility] Address: [address] [place] [address] Performed By: #### 5 7021-8 ####[facility] LABCLIA [id number] [place] [address] Nucleated RBC/100 WBC (Bld) [Ratio] 0.0 /100 WBC Normal [facility] Comment on above: Order Comment: Speci men Type: BLOOD SPECIMENOrdering Facility: [facility] Address: [address] [place] [address] Performed By: #### 5 7021-8 ####[facility] LABCLIA [id number] [place] [address] Platelet mean volume (Bld) [Entitic vol] 10.0 fL Normal 9.0-12.7 [facility] Comment on above: Order Comment: Speci men Type: BLOOD SPECIMENOrdering Facility: [facility] Address: [address] [place] [address] Performed By: #### 5 7021-8 ####[facility] LABCLIA [id number] [place] [address] Platelets (Bld) [#/Vol] 179 10*3/uL Normal 150-400 [facility] Comment on above: Order Comment: Speci men Type: BLOOD SPECIMENOrdering Facility: [facility] Address: [address] [place] [address] Performed By: #### 5 7021-8 ####[facility] LABCLIA [id number] [place] [address] RBC (Bld) [#/Vol] 4.47 10*6/uL Normal 3.90-5.20 [facility] Comment on above: Order Comment: Speci men Type: BLOOD SPECIMENOrdering Facility: [facility] Address: [address] [place] [address] Performed By: #### 5 7021-8 ####[facility] LABCLIA [id number] [place] [address] WBC (Bld) [#/Vol] 5.85 10*3/uL Normal 3.70-11.00 [facility] Comment on above: Order Comment: Speci men Type: BLOOD SPECIMENOrdering Facility: [facility] Address: [address] [place] [address] Performed By: #### 5 7021-8 ####[facility] LABIA [id number] [place] [address] CNNURSEon 06-05-2023 [facility] ([facility]) IVONNE CESPEDES ([id number]) 1955 F Date Time Provider Department 06/05/23 3:15 PM [facility] NURSE ERVIN VILLASENOR During your visit today, we recorded the following information about you: Ignacio 06/05/2023 3:24 PM Signed Patient Identification confirmed: yes. Injection given and documented on OCT per provider order. November Ignacio Referring Provider: MAIKEL LUNSFORD [[id number]] Allergies As of Date: 06/05/2023 Noted Allergy Reaction BUPROPION 12/22/2004 12 - Shortness of Breath ZYBAN (BUPROPION HCL (SMOKING DET*11/07/2018 12 - Shortness of Breath Date Reviewed: 06/05/2023 Reviewed by: Desirae Sargent MA - Fully Assessed Primary Visit Diagnosis:Anemia, unspecified type [D64.9] Other Visit Diagnosis:Megaloblas tic anemia due to vitamin B12 deficiency [D53.1] Order(s):TREATMENT PARAMETER-NOT NEEDED [5808056] Order #: [id number]: 1 BCN NURSING COMMUNICATION [[id number]] Order #: [id number]: 1 STANDING cyanocobalamin 1,000 mcg injectionDisp: Rfl: [...] Take 50 mg by mouth once daily. Facility-Administere d Medications as of 06/05/2023 - cyanocobalamin 1,000 [...] Encounter Status:Closed by IGNACIO NOVEMBER on 06/05/23 [facility] CNOVSPon 06-05-2023 CNOVSP Visit (SP) Office (HEMASA) IVONNE CESPEDES ([id number]) 1955 F Date Time Provider Department 06/05/23 2:15 PM MAIKEL LUNSFORD During your visit today, we recorded the following information about you: Temperature Pulse Respiration Blood pressure 97 degrees 78/minute 16/minute 125/70 Weight Height 53.3 kg 1.524 m Maikel Lunsford MD 06/09/2023 3:35 PM Signed NAME: Ivonne Cespedes CLINIC NO.: [id number] DATE OF SERVICE: June 05, 2023 (Martín) Some elements in this clinic note that are critical to medical decision making have been carefully reviewed and included from a prior clinic note dated: March 13, 2023 (Martín) Referring Provider: Rosa Shearer Additional Clinicians involved in Ivonne Cepsedes's care: DIAGNOSIS: B12 deficiency History of right [...] labs. Exam same day. Obtain mammography from [facility] Consult Data Collector for help with pancreatic insufficiency (Dr. Hameed) - HPI: CASE HISTORY: Reverse Chronological Order 02/13/2023 B12 level 144 11/01/2022 CBC 5.7 > 13.5/41.6 < 218 normal differential. March 2022 FibroScan F0-F1 no steatosis. January 2022 CT scan abdomen pelvis at [facility] hepatomegaly with hepatic steatosis. June 2021 CT abdomen pelvis right retrocrural lymph node. November 25, [address] 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 October 27, 2018 biopsy showed ductal carcinoma in situ high nuclear grade. The estrogen receptor was positive at 10-20% with progesterone receptor negative DCIS Right Breast - [facility] October 22, 2018 mammogram showing suspicious changes in the right breast. grouping of numerous pleomorphic calcifications within the posterior upper inner quadrant. Updated Visit, June 05, 2023: Mammogram done in [place] yesterday Was told she has pancreatic insufficiency B12 levels remain low. Initial Visit, March 13, 2023: Ivonne Cespedes presents today Hematology and Oncology evaluation. 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 [...] is referred for evaluation of B12 supplementation. - REVIEW OF SYSTEMS Per HPI and otherwise negative by full review of organ systems. - ECOG PERFORMANCE STATUS: 0 PHYSICAL EXAMINATION: Vitals: [...] skin without rash, lesions, wounds or petechiae. - ALLERGIES: ALLERGIES Allergen Reactions Bupropion Shortness of [...] loperamide (IMODIUM (more content not included)... Normal [facility] Comprehensive metabolic 2000 panelon 06-05-2023 Albumin [Mass/Vol] 4.0 g/dL Normal 3.9-4.9 [facility] Comment on above: Order Comment: Speci men Type: BLOOD SPECIMEN [facility] Address: [address] [place] [address] Performed By: #### 5 7021-8 #### [facility] CLIA [id number] [address] [place] [address] ALP [Catalytic activity/Vol] 80 U/L Normal 34-123 [facility] Comment on above: Order Comment: Speci men Type: BLOOD SPECIMEN [facility] Address: [address] [id number] Performed By: #### 5 7021-8 #### [facility] CLIA [id number] [address] [place] [address] ALT [Catalytic activity/Vol] 12 U/L Normal 7-38 [facility] Comment on above: Order Comment: Speci men Type: BLOOD SPECIMEN [facility] Address: [address] [place] [id number] Performed By: #### 5 7021-8 #### [facility] CLIA [id number] [address] [place] [address] Anion gap [Moles/Vol] 9 mmol/L Normal 9-18 [facility] Comment on above: Order Comment: Speci men Type: BLOOD SPECIMEN [facility] Address: [address] [place] [address] Performed By: #### 5 7021-8 #### [facility] CLIA [id number] [address] [place] [address] AST [Catalytic activity/Vol] 18 U/L Normal 13-35 [facility] Comment on above: Order Comment: Speci men Type: BLOOD SPECIMEN [facility] Address: [address] [place] [id number] Performed By: #### 5 7021-8 #### [facility] CLIA [id number] [address] [place] [address] Bilirubin [Mass/Vol] 0.2 mg/dL Normal 0.2-1.3 [facility] Comment on above: Order Comment: Speci men Type: BLOOD SPECIMEN [facility] Address: [address] [place], [place] [address] Performed By: #### 5 7021-8 #### [facility] CLIA [id number] [address] [place] [address] Calcium [Mass/Vol] 9.7 mg/dL Normal 8.5-10.2 [facility] Comment on above: Order Comment: Speci men Type: BLOOD SPECIMEN [facility] Address: [address] [place], [place] [address] Performed By: #### 5 7021-8 #### [facility] CLIA [id number] [address] [place] [address] Chloride [Moles/Vol] 103 mmol/L Normal 97-105 [facility] Comment on above: Order Comment: Speci men Type: BLOOD SPECIMEN [facility] Address: [address] [place] [address] Performed By: #### 5 7021-8 #### [facility] CLIA [id number] [address] [place] [address] CO2 [Moles/Vol] 28 mmol/L Normal 22-30 [facility] Comment on above: Order Comment: Speci men Type: BLOOD SPECIMEN [facility] Address: [address] [place] [address] Performed By: #### 5 7021-8 #### [facility] CLIA [id number] [address] [place] [address] Creatinine [Mass/Vol] 0.62 mg/dL Normal 0.58-0.96 [facility] Comment on above: Order Comment: Speci men Type: BLOOD SPECIMEN [facility] Address: [address] [place] [address] Performed By: #### 5 7021-8 #### [facility] CLIA [id number] [address] [place] [address] Creatinine and Glomerular filtration rate.predicted panel (S/P/Bld) 96 mL/min/1.73m??? Normal >=60 [facility] Comment on above: Order Comment: Speci men Type: BLOOD SPECIMEN [facility] Address: [address] [place] [address] Result Comment: Angela mated Glomerular Filtration Rate [...] accurately reflect actual GFR. Performed By: #### 5 7021-8 #### [facility] CLIA [id number] [address] [place] [address] Glucose [Mass/Vol] 95 mg/dL Normal 74-99 [facility] Comment on above: Order Comment: Specbronwyn joya Type: BLOOD SPECIMEN [facility] Address: [address] [place] [address] Result Comment: The [place] [employer] (ADA) provides guidance for cutoff [...] Standards of Medical Care in Diabetes 2016, [place] [employer]. Diabetes Care. 2016.39(Suppl 1). Performed By: #### 5 7021-8 #### [facility] CLIA [id number] [address] [place] [address] Potassium [Moles/Vol] 4.1 mmol/L Normal 3.7-5.1 [facility] Comment on above: Order Comment: Eusebio joya Type: BLOOD SPECIMEN [facility] Address: [address] [place] [address] Performed By: #### 5 7021-8 #### [facility] CLIA [id number] [address] [place] [address] Protein [Mass/Vol] 7.1 g/dL Normal 6.3-8.0 [facility] Comment on above: Order Comment: Speci men Type: BLOOD SPECIMEN [facility] Address: [address] [place] [address] Performed By: #### 5 7021-8 #### [facility] CLIA [id number] [address] [place] [address] Sodium [Moles/Vol] 140 mmol/L Normal 136-144 [facility] Comment on above: Order Comment: Speci men Type: BLOOD SPECIMEN [facility] Address: [address] [place] [address] Performed By: #### 5 7021-8 #### [facility] CLIA [id number] [address] [place] [address] Urea nitrogen [Mass/Vol] 13 mg/dL Normal 7-21 [facility] Comment on above: Order Comment: Speci men Type: BLOOD SPECIMEN [facility] Address: [address] [place] [address] Performed By: #### 5 7021-8 #### [facility] CLIA [id number] [address] [place] [address] Ferritin SerPl-mCncon 2022 Ferritin [Mass/Vol] 19.5 ng/mL Normal 14.7-205.1 [facility] Comment on above: Order Comment: Speci men Type: BLOOD SPECIMENOrdering Facility: [facility] Address: [address] [place] [address] Performed By: #### 2 284-8, 2276-4, 2132-9, 39908-3 ####[facility] LABCLIA [id number] [facility] [id number] [place] [address] [place] Folate SerPl-mCncon 06-05-20 23 Folate [Mass/Vol] 10.9 ng/mL Normal >4.7 [facility] Comment on above: Order Comment: Speci men Type: BLOOD SPECIMENOrdering Facility: [facility] Address: [address] [place] [address] Performed By: #### 2 284-8, 6-4, 9, 60910-2 ####[facility] LABCLIA [id number] [place] [address] [place] Iron and Iron binding capaci ty panelon 06-05-2023 Iron [Mass/Vol] 86 ug/dL Normal 41-186 [facility] Comment on above: Order Comment: Speci men Type: BLOOD SPECIMENOrdering Facility: [facility] Address: [address] [place] [address] Performed By: #### 2 284-8, 6-4, 9, 13738-3 ####[facility] LABIA [id number] [place] [address] [place] Iron binding capacity [Mass/Vol] 357 ug/dL Normal 232-386 [facility] Comment on above: Order Comment: Speci men Type: BLOOD SPECIMENOrdering Facility: [facility] Address: [address] [place] [address] Performed By: #### 2 284-8, 6-4, 9, 38854-7 ####[facility] LABIA [id number] [place] [id number] [place] Iron/TIBC [Molar ratio] 24.1 % Normal 15.0-57.0 [facility] Comment on above: Order Comment: Speci men Type: BLOOD SPECIMENOrdering Facility: [facility] Address: [address] [place] [address] Performed By: #### 2 284-8, 2276-4, 9, 18661-5 ####[facility] LABIA [id number] [place] [id number] [place] Vit [facility] Cobalamin (Vitamin B12) [Mass/Vol] 237 pg/mL Normal 232-1245 [facility] Comment on above: Order Comment: Speci men Type: BLOOD SPECIMENOrdering Facility: [facility] Address: [address] [place] [address] Performed By: #### 2 284-8, 2276-4, 2132-9, 24644-9 ####[facility] LABCLIA [id number] [facility] [place] [address] [place] INTRINSIC FACTOR BLOCKING AB on 03-16-2023 Intrinsic factor blocking Ab Ql (S) Negative Negative [facility] FERRITIN BLDon 03-14-2023 Ferritin [Mass/Vol] 25.6 ng/mL 14.7 - 2 05.1 ng/mL [facility] FOLATE SERUMon 03-14-2023 Folate [Mass/Vol] 15.2 ng/mL >4.7 ng/mL [facility] Iron and Iron binding capaci ty panelon 03-14-2023 Iron [Mass/Vol] 48 ug/dL 41 - 186 ug/dL [facility] Iron binding capacity [Mass/Vol] 374 ug/dL 232 - 386 ug/dL [facility] Iron/TIBC [Molar ratio] 12.8 % Low 15.0 - 57.0 % [facility] VITAMIN B12 BLOODon 03-14-20 Cobalamin (Vitamin B12) [Mass/Vol] 209 pg/mL Low 232 - 1,245 pg/mL [facility] CBC W Auto Differential pane l (Bld)on 03-13-2023 Basophils (Bld) [#/Vol] 0.06 10*3/uL <0.11 k/uL [facility] Basophils/100 WBC (Bld) 1.0 % [facility] Differential cell count method Nom (Bld) Auto [facility] Eosinophils (Bld) [#/Vol] 0.21 10*3/uL <0.46 k/uL [facility] Eosinophils/100 WBC (Bld) 3.5 % [facility] Erythrocyte distribution width (RBC) [Ratio] 14.6 % 11.5 - 15.0 % [facility] Hematocrit (Bld) [Volume fraction] 42.7 % 36.0 - 46.0 % [facility] Hemoglobin (Bld) [Mass/Vol] 13.7 g/dL 11.5 - 15.5 g/dL [facility] Immature granulocytes (Bld) [#/Vol] <0.10 k/uL [facility] Immature granulocytes/100 WBC (Bld) 0.2 % [facility] Lymphocytes (Bld) [#/Vol] 1.91 10*3/uL 1.00 - 4.00 k/uL [facility] Lymphocytes/100 WBC (Bld) 31.7 % [facility] MCH (RBC) [Entitic mass] 28.7 pg 26.0 - 34.[address] [facility] MCHC (RBC) [Mass/Vol] 32.1 g/dL 30.5 - 36.0 g/dL [facility] MCV (RBC) [Entitic vol] 89.5 fL 80.0 - 100.[address] [facility] Monocytes (Bld) [#/Vol] 0.60 10*3/uL <0.87 k/uL [facility] Monocytes/100 WBC (Bld) 10.0 % [facility] Neutrophils (Bld) [#/Vol] 3.24 10*3/uL 1.45 - 7.50 k/uL [facility] Neutrophils/100 WBC (Bld) 53.6 % [facility] Nucleated RBC (Bld) [#/Vol] <0.01 k/uL [facility] Nucleated RBC/100 WBC (Bld) [Ratio] 0.0 /[address] [facility] Platelet mean volume (Bld) [Entitic vol] 9.7 fL 9.0 - 12.[address] [facility] Platelets (Bld) [#/Vol] 199 10*3/uL 150 - 400 k/uL [facility] RBC (Bld) [#/Vol] 4.77 10*6/uL 3.90 - 5.2 0 m/uL [facility] WBC (Bld) [#/Vol] 6.03 10*3/uL 3.70 - 11. 00 k/uL [facility] Comprehensive metabolic 2000 panelon 03-13-2023 Albumin [Mass/Vol] 4.3 g/dL 3.9 - 4.9 g/dL [facility] ALP [Catalytic activity/Vol] 91 U/L 34 - 123 U/L [facility] ALT [Catalytic activity/Vol] 107 U/L High 7 - 38 U/L [facility] Anion gap [Moles/Vol] 7 mmol/L Low 9 - 18 mmol/L [facility] AST [Catalytic activity/Vol] 80 U/L High 13 - 35 U/L [facility] Bilirubin [Mass/Vol] 0.3 mg/dL 0.2 - 1 .3 mg/dL [facility] Calcium [Mass/Vol] 10.3 mg/dL High 8.5 - 10. 2 mg/dL [facility] Chloride [Moles/Vol] 104 mmol/L 97 - 10 5 mmol/L [facility] CO2 [Moles/Vol] 30 mmol/L 22 - 30 mmol/L [facility] Creatinine [Mass/Vol] 0.62 mg/dL 0.58 - 0.96 mg/dL [facility] Estimated Glomerular Filtration Rate 97 mL/min/1.73m >=60 mL/min/1.73m [facility] Glucose [Mass/Vol] 102 mg/dL High 74 - 99 mg/dL [facility] Potassium [Moles/Vol] 4.5 mmol/L 3.7 - 5.1 mmol/L [facility] Protein [Mass/Vol] 7.4 g/dL 6.3 - 8.0 g/dL [facility] Sodium [Moles/Vol] 141 mmol/L 136 - 144 mmol/L [facility] Urea nitrogen [Mass/Vol] 10 mg/dL 7 - 21 mg/dL [facility] CHEMISTRYOrdered By: SYSTEM SYSTEM on 02-13-2023 Cobalamin (Vitamin B12) [Mass/Vol] 144 pg/mL Normal 50 - 1500 pg/mL [facility] Remisol CT LUNG CANCER SCREENINGon 0 11-30-2022 CT [...] by: CHAPARRO ECKERT Date: 2022-11-30 14:17 Normal [facility] CHEMISTRYOrdered By: SYSTEM SYSTEM on 11-01-2022 Albumin [Mass/Vol] 3.9 g/dL Normal 3.3 - 5.0 gm/dL [facility] Remisol Albumin/Globulin [Mass ratio] 1.1 {ratio} Normal 1.1 - 2.2 [facility] ALP [Catalytic activity/Vol] 49 [iU]/d Normal 21 - 98 Int._Unit/L [facility] ALT No additional P-5'-P [Catalytic activity/Vol] 12 [iU]/d Normal 6 - 46 Int._Unit/L [facility] Anion gap [Moles/Vol] 10 mmol/L Normal 6 - 16 mEq/L [facility] Rem[facility] AST [Catalytic activity/Vol] 15 [iU]/d Normal 5 - 43 Int._Unit/L [facility] Bilirubin [Mass/Vol] 0.4 mg/dL Normal 0.0 - 1 .1 mg/dL [facility] Calcium [Mass/Vol] 9.5 mg/dL Normal 8.9 - 11. 1 mg/dL [facility] Chloride [Moles/Vol] 102 mmol/L Normal 101 - 1 11 mmol/L [facility] CO2 [Moles/Vol] 29 mmol/L Normal 21 - 31 mmol/L [facility] Cobalamin (Vitamin B12) [Mass/Vol] pg/mL Normal 50 - 1500 pg/mL [facility] Creatinine [Mass/Vol] 0.7 mg/dL Normal 0.5 - 1.3 mg/dL [facility] GFR/1.73 sq M.predicted among blacks MDRD (S/P/Bld) [Vol rate/Area] mL/min/1.73 m2 Normal >=59mL/min/1. 73 m2 [facility] Chem S GFR/1.73 sq M.predicted among non-blacks MDRD (S/P/Bld) [Vol rate/Area] mL/min/1.73 m2 Normal >=59mL/min/1. 73 m2 [facility] Chem S Globulin (S) [Mass/Vol] 3.6 g/dL Normal 1.4 - 4.0 gm/dL [facility] Glucose [Mass/Vol] 106 mg/dL Normal 55 - 199 mg/dL [facility] Potassium [Moles/Vol] 4.1 mmol/L Normal 3.5 - 5.3 mmol/L [facility] Protein [Mass/Vol] 7.5 g/dL Normal 6.0 - 7.8 gm/dL [facility] Sodium [Moles/Vol] 137 mmol/L Normal 135 - 145 mmol/L [facility] Urea nitrogen [Mass/Vol] 13 mg/dL Normal 5 - 21 mg/dL [facility] Urea nitrogen/Creatinine [Mass ratio] 19 mg/mg Normal 10 - 20 [facility] HEMATOLOGYOrdered By: SYSTEM SYSTEM on 11-01-2022 Basophils/100 WBC (Bld) 0.8 % Normal 0.0 - 2.0 % [facility] Basophils/Leukocytes Auto (Bld) [Pure # fraction] 0.0 E9/L Normal 0.0 - 0.2 E9/L [facility] Eosinophils/100 WBC (Bld) 3.2 % Normal 0.0 - 8.0 % [facility] Eosinophils/Leukocyte s Auto (Bld) [Pure # fraction] 0.2 E9/L Normal 0.0 - 0.5 E9/L [facility] Lymphocytes/100 WBC (Bld) 23.1 % Normal 14.0 - 50.0 % [facility] Lymphocytes/Leukocyte s Auto (Bld) [Pure # fraction] 1.3 E9/L Normal 1.0 - 4.0 E9/L [facility] Monocytes/100 WBC (Bld) 9.3 % Normal 4.0 - 14.0 % [facility] Monocytes/Leukocytes Auto (Bld) [Pure # fraction] 0.5 E9/L Normal 0.2 - 1.0 E9/L [facility] Neutrophils/100 WBC (Bld) 63.6 % Normal 36.0 - 75.0 % [facility] Neutrophils/Leukocyte s Auto (Bld) [Pure # fraction] 3.6 E9/L Normal 2.0 - 7.5 E9/L [facility] HEMATOLOGYOrdered By: Jane Mederos on 11-01-2022 Erythrocyte distribution width (RBC) [Ratio] 14.5 % High 10.9 - 14.2 % [facility] Hematocrit (Bld) [Volume fraction] 41.6 % Normal 34.0 - 46.0 % [facility] Hemoglobin (Bld) [Mass/Vol] 13.5 g/dL Normal 12.0 - 16.0 gm/dL [facility] MCH (RBC) [Entitic mass] 28.5 pg Normal 27.0 - 34.0 pg [facility] MCHC (RBC) [Mass/Vol] 32.5 g/dL Normal 31.4 - 36.0 gm/dL [facility] MCV (RBC) [Entitic vol] 87.8 fL Normal 80.0 - 100.0 fL [facility] Platelet mean volume (Bld) [Entitic vol] 7.6 fL Normal 6.4 - 10.8 fL [facility] Platelets (Bld) [#/Vol] 218.0 E9/L Normal 150.0 - 500.0 E9/L [facility] RBC (Bld) [#/Vol] 4.7 E12/L Normal 4.3 - 5.9 E12/L [facility] WBC corrected for nucl RBC Auto (Bld) [#/Vol] 5.7 E9/L Normal 4.0 - 11.0 E9/L [facility] HemeAutoSS THYROID ANTIBODIESon 022 Thyroglobulin Antibody 381.8 IU/mL Critically high 0.0-0.9 [facility] Comment on above: Result Comment: Thyr oglobulin Antibody measured by [employer] Methodology Performed By: #### T ELIJAH #### [facility] [address] [place] [id number] Marcelo Blackwell Thyroid Peroxidase (TPO) Ab 353 IU/mL Critically high 0-[address] [facility] Comment on above: Performed By: #### T ELIJAH #### [facility] [address] [place] [address] Dr. Marcelo Blackwell US THYROIDon 07-16-2022 US [...] thyroid gland, consider thyroiditis Electronically authenticated by: ALEXANDRO DEL VALLE Date: 2022-07-16 07:17 Normal [facility] FREE T3on 07-14-2022 FREE T3 2.57 pg/mlL Normal 2.18-3.98 [facility] Comment on above: Performed By: #### T SH, FT3 #### [facility] [address] [place] [address] Dr. Marcelo Blackwell FREE T4on 07-14-2022 Free T4 [Mass/Vol] 1.26 ng/dL Normal 0.76-1.[address] [facility] Comment on above: Performed By: #### F T4 #### [facility] [address] [place] [address] Dr. Marcelo Blackwell TSHon 07-14-2022 TSH 1.371 uIU/mL Normal 0.358-3.[address] [facility] Comment on above: Performed By: #### T SH, FT3 #### [facility] [address] [place] [address] Dr. Marcelo Blackwell CHEMISTRYOrdered By: SYSTEM SYSTEM on 06-19-2022 Albumin [Mass/Vol] 3.8 g/dL Normal 3.3 - 5.0 gm/dL [facility] Albumin/Globulin [Mass ratio] 1.1 {ratio} Normal 1.1 - 2.2 [facility] ALP [Catalytic activity/Vol] 94 [iU]/d Normal 21 - 98 Int._Unit/L [facility] ALT No additional P-5'-P [Catalytic activity/Vol] 27 [iU]/d Normal 6 - 46 Int._Unit/L [facility] Anion gap [Moles/Vol] 12 mmol/L Normal 6 - 16 mEq/L [facility] AST [Catalytic activity/Vol] 37 [iU]/d Normal 5 - 43 Int._Unit/L [facility] Bilirubin [Mass/Vol] 0.5 mg/dL Normal 0.0 - 1 .1 mg/dL [facility] Calcium [Mass/Vol] 9.5 mg/dL Normal 8.9 - 11. 1 mg/dL [facility] Chloride [Moles/Vol] 102 mmol/L Normal 101 - 1 11 mmol/L [facility] CO2 [Moles/Vol] 29 mmol/L Normal 21 - 31 mmol/L [facility] Creatinine [Mass/Vol] 0.8 mg/dL Normal 0.5 - 1.3 mg/dL [facility] GFR/1.73 sq M.predicted among blacks MDRD (S/P/Bld) [Vol rate/Area] mL/min/1.73 m2 Normal >=59mL/min/1. 73 m2 [facility] Chem S GFR/1.73 sq M.predicted among non-blacks MDRD (S/P/Bld) [Vol rate/Area] mL/min/1.73 m2 Normal >=59mL/min/1. 73 m2 [facility] Chem S Globulin (S) [Mass/Vol] 3.5 g/dL Normal 1.4 - 4.0 gm/dL [facility] Glucose [Mass/Vol] 114 mg/dL Normal 55 - 199 mg/dL [facility] Potassium [Moles/Vol] 3.9 mmol/L Normal 3.5 - 5.3 mmol/L [facility] Protein [Mass/Vol] 7.3 g/dL Normal 6.0 - 7.8 gm/dL [facility] Sodium [Moles/Vol] 139 mmol/L Normal 135 - 145 mmol/L [facility] Urea nitrogen [Mass/Vol] 15 mg/dL Normal 5 - 21 mg/dL [facility] Urea nitrogen/Creatinine [Mass ratio] 19 mg/mg Normal 10 - 20 [facility] HEMATOLOGYOrdered By: SYSTEM SYSTEM on 06-19-2022 Basophils/100 WBC (Bld) 0.8 % Normal 0.0 - 2.0 % [facility] Basophils/Leukocytes Auto (Bld) [Pure # fraction] 0.1 E9/L Normal 0.0 - 0.2 E9/L [facility] Eosinophils/100 WBC (Bld) 4.1 % Normal 0.0 - 8.0 % [facility] Eosinophils/Leukocyte s Auto (Bld) [Pure # fraction] 0.3 E9/L Normal 0.0 - 0.5 E9/L [facility] Lymphocytes/100 WBC (Bld) 26.4 % Normal 14.0 - 50.0 % [facility] Lymphocytes/Leukocyte s Auto (Bld) [Pure # fraction] 1.8 E9/L Normal 1.0 - 4.0 E9/L [facility] Monocytes/100 WBC (Bld) 8.1 % Normal 4.0 - 14.0 % [facility] Monocytes/Leukocytes Auto (Bld) [Pure # fraction] 0.5 E9/L Normal 0.2 - 1.0 E9/L [facility] Neutrophils/100 WBC (Bld) 60.6 % Normal 36.0 - 75.0 % [facility] Neutrophils/Leukocyte s Auto (Bld) [Pure # fraction] 4.1 E9/L [...] 4.7 E12/L Normal 4.3 - 5.9 E12/L [facility] WBC corrected for nucl RBC Auto (Bld) [#/Vol] 6.8 E9/L Normal 4.0 - 11.0 E9/L [facility] MG MAMM DIAGNOSTIC 3D TAMMY CA Don 05-29-2022 MG MAMM DIAGNOSTIC 3D TAMMY CAD Patient: IVONNE CESPEDES Exam Date: 05/29/2022 : 1955 Gender:F Ordering : DR NURYS BOGGS M.D. Admission #: [id number] Family : Order #: [id number] CLICK HERE TO VIEW EXAM RADIOLOGY REPORT [...] colon cancer at age 52. LOCATION: [facility] BREAST COMPOSITION: Extremely dense, which lowers [...] Eckert M.D. on 05/29/2022 at 15:37 Normal [facility] CHEMISTRYOrdered By: SYSTEM SYSTEM on 03-16-2022 Creatinine [Mass/Vol] 0.8 mg/dL Normal 0.5 - 1.3 mg/dL [facility] Remisol GFR/1.73 sq M.predicted among blacks MDRD (S/P/Bld) [Vol rate/Area] mL/min/1.73 m2 Normal >=59mL/min/1. 73 m2 [facility] Chem S GFR/1.73 sq M.predicted among non-blacks MDRD (S/P/Bld) [Vol rate/Area] mL/min/1.73 m2 Normal >=59mL/min/1. 73 m2 [facility] Chem S CT ABD/PELV W CONon 02-03-20 [...] ALEXANDRO DEL VALLE Date: 2022-02-02 09:00 Normal [facility] CREATININEon 02-01-2022 Creatinine [Mass/Vol] 0.71 mg/dL Normal 0.55-1.02 [facility] Comment on above: Performed By: #### C IVAN #### [facility] [address] [address] [address] Marcelo Blackwell EGFR-AF HONG [place]ONGER >60 Normal >=60 [facility] Comment on above: Performed By: #### C IVAN #### [facility] [address] [address] [address] Marcelo Blackwell EGFR-NON AF [place]ER >60 Normal >=60 [facility] Comment on above: Performed By: #### C IVAN #### [facility] [address] [address] [address] Marcelo Blackwell Complete Blood Count with Au to Diffon 10-16-2021 Basophils (Bld) [#/Vol] 0.07 10*3/uL Normal 0.00-0.20 [facility] Comment on above: Performed By: #### T SH reflex FT4, CMP, CBCAD, FT4, LIPD, VITD #### [facility] [address] [place], [place] [id number] Basophils/100 WBC (Bld) 1.4 % Normal [facility] [employer] Comment on above: Performed By: #### T SH reflex FT4, CMP, CBCAD, FT4, LIPD, VITD #### [facility] [address], [place] [id number] Eosinophils (Bld) [#/Vol] 0.28 10*3/uL Normal 0.02-0.50 [facility] [employer] Comment on above: Performed By: #### T SH reflex FT4, CMP, CBCAD, FT4, LIPD, VITD #### [facility] [address] [place] [id number] Eosinophils/100 WBC (Bld) 5.7 % Normal [facility] [employer] Comment on above: Performed By: #### T SH reflex FT4, CMP, CBCAD, FT4, LIPD, VITD #### [facility] [address], [place] [id number] Erythrocyte distribution width (RBC) [Ratio] 13.9 % Normal 11.0-15.0 [facility] Comment on above: Performed By: #### T SH reflex FT4, CMP, CBCAD, FT4, LIPD, VITD #### [facility] [address], [place] [id number] Hematocrit (Bld) [Volume fraction] 41.9 % Normal 35.0-47.0 [facility] Comment on above: Performed By: #### T SH reflex FT4, CMP, CBCAD, FT4, LIPD, VITD #### [facility] [address], [place] [id number] Hemoglobin (Bld) [Mass/Vol] 13.5 g/dL Normal 11.6-15.5 [facility] Comment on above: Performed By: #### T SH reflex FT4, CMP, CBCAD, FT4, LIPD, VITD #### [facility] [address], [place] [id number] Lymphocytes (Bld) [#/Vol] 1.6 10*3/uL Normal 0.9-3.9 [facility] Comment on above: Performed By: #### T SH reflex FT4, CMP, CBCAD, FT4, LIPD, VITD #### [facility] [address], [place] [id number] Lymphocytes/100 WBC (Bld) 31.6 % Normal [facility] Comment on above: Performed By: #### T SH reflex FT4, CMP, CBCAD, FT4, LIPD, VITD #### [facility] [address], [place] [id number] MCH (RBC) [Entitic mass] 28.8 pg Normal 27.0-33.0 [facility] Comment on above: Performed By: #### T SH reflex FT4, CMP, CBCAD, FT4, LIPD, VITD #### [facility] [address], [place] [id number] MCHC (RBC) [Mass/Vol] 32.2 g/dL Normal 32.0-36.0 [facility] Comment on above: Performed By: #### T SH reflex FT4, CMP, CBCAD, FT4, LIPD, VITD #### [facility] [address], [place] [id number] MCV (RBC) [Entitic vol] 90 fL Normal 80-100 [facility] Comment on above: Performed By: #### T SH reflex FT4, CMP, CBCAD, FT4, LIPD, VITD #### [facility] [address], [place] [id number] Monocytes (Bld) [#/Vol] 0.5 10*3/uL Normal 0.2-0.9 [facility] Comment on above: Performed By: #### T SH reflex FT4, CMP, CBCAD, FT4, LIPD, VITD #### [facility] [address], [place] [id number] Monocytes/100 WBC (Bld) 10.0 % Normal [facility] Comment on above: Performed By: #### T SH reflex FT4, CMP, CBCAD, FT4, LIPD, VITD #### [facility] [address], [place] [id number] Neutrophils (Bld) [#/Vol] 2.5 10*3/uL Normal 1.5-7.8 [facility] Comment on above: Performed By: #### T SH reflex FT4, CMP, CBCAD, FT4, LIPD, VITD #### [facility] [address], [place] [id number] Neutrophils/100 WBC (Bld) 51.1 % Normal [facility] Comment on above: Performed By: #### T SH reflex FT4, CMP, CBCAD, FT4, LIPD, VITD #### [facility] [address], [place] [id number] Platelet mean volume (Bld) [Entitic vol] 10.10 fL Normal 7.50-12.50 [facility] Comment on above: Performed By: #### T SH reflex FT4, CMP, CBCAD, FT4, LIPD, VITD #### [facility] [address], [place] [id number] Platelets (Bld) [#/Vol] 236 10*3/uL Normal 140-400 [facility] Comment on above: Performed By: #### T SH reflex FT4, CMP, CBCAD, FT4, LIPD, VITD #### [facility] [address], [place] [id number] RBC (Bld) [#/Vol] 4.68 10*6/uL Normal 3.90-5.20 [facility] Comment on above: Performed By: #### T SH reflex FT4, CMP, CBCAD, FT4, LIPD, VITD #### [facility] [address], [place] [id number] RDW-SD 45.1 fL Normal 37.0-50.0 [facility] Comment on above: Performed By: #### T SH reflex FT4, CMP, CBCAD, FT4, LIPD, VITD #### [facility] [address] [place], [place] [id number] WBC (Bld) [#/Vol] 4.9 10*3/uL Normal 3.8-11.0 [facility] Comment on above: Performed By: #### T SH reflex FT4, CMP, CBCAD, FT4, LIPD, VITD #### [facility] [address], [place] [id number] [facility] 10-16-2021 Albumin [Mass/Vol] 4.3 g/dL Normal 3.6-5.1 [facility] Comment on above: Performed By: #### T SH reflex FT4, CMP, CBCAD, FT4, LIPD, VITD #### [facility] [address], [place] [id number] Albumin/Globulin [Mass ratio] 1.7 {ratio} Normal 1.0-2.5 [facility] Comment on above: Performed By: #### T SH reflex FT4, CMP, CBCAD, FT4, LIPD, VITD #### [facility] [address], [place] [id number] ALP [Catalytic activity/Vol] 90 U/L Normal 35-119 [facility] [employer] Comment on above: Performed By: #### T SH reflex FT4, CMP, CBCAD, FT4, LIPD, VITD #### [facility] [address], [place] [id number] ALT [Catalytic activity/Vol] 11 U/L Normal 6-33 [facility] Comment on above: Result Comment: 07/26 Female reference range changed. Performed By: #### T SH reflex FT4, CMP, CBCAD, FT4, LIPD, VITD #### [facility] [address], [place] [id number] Anion gap [Moles/Vol] 17 mmol/L Normal 12-20 [facility] Comment on above: Result Comment: Effe ctive 08/31/2019 reference range changed. Performed By: #### T SH reflex FT4, CMP, CBCAD, FT4, LIPD, VITD #### [facility] [address], [place] [id number] AST [Catalytic activity/Vol] 17 U/L Normal 9-34 [facility] Comment on above: Performed By: #### T SH reflex FT4, CMP, CBCAD, FT4, LIPD, VITD #### [facility] [address], [place] [id number] BUN/CREA 24 Ratio High 6-22 [facility] Comment on above: Performed By: #### T SH reflex FT4, CMP, CBCAD, FT4, LIPD, VITD #### [facility] [address], [place] [id number] Calcium [Mass/Vol] 9.7 mg/dL Normal 8.6-10.2 [facility] Comment on above: Performed By: #### T SH reflex FT4, CMP, CBCAD, FT4, LIPD, VITD #### [facility] [address], [place] [id number] Chloride [Moles/Vol] 104 mmol/L Normal 98-107 [facility] Special[facility] Comment on above: Performed By: #### T SH reflex FT4, CMP, CBCAD, FT4, LIPD, VITD #### [facility] [address], [place] [id number] CO2 [Moles/Vol] 27 mmol/L Normal 20-31 [facility] Comment on above: Performed By: #### T SH reflex FT4, CMP, CBCAD, FT4, LIPD, VITD #### [facility] [address], [place] [id number] Creatinine [Mass/Vol] 0.5 mg/dL Low 0.6-1.4 [facility] Comment on above: Performed By: #### T SH reflex FT4, CMP, CBCAD, FT4, LIPD, VITD #### [facility] [address], [place] [id number] eGFRAA 152 mL/min/1.73m2 Normal >60 [facility] Comment on above: Performed By: #### T SH reflex FT4, CMP, CBCAD, FT4, LIPD, VITD #### [facility] [address], [place] [id number] eGFRNAA 126 mL/min/1.73m2 Normal >60 [facility] Comment on above: Performed By: #### T SH reflex FT4, CMP, CBCAD, FT4, LIPD, VITD #### [facility] [address], [place] [id number] Globulin (S) [Mass/Vol] 2.5 g/dL Normal 1.9-3.7 [facility] Comment on above: Performed By: #### T SH reflex FT4, CMP, CBCAD, FT4, LIPD, VITD #### [facility] [address], [place] [id number] Glucose [Mass/Vol] 92 mg/dL Normal 65-99 [facility] Comment on above: Result Comment: For FASTING Glucose --- ADA reference ranges: Normal 65-99 mg/dl Prediabetes 100-125 Diabetes >/= 126 Performed By: #### T SH reflex FT4, CMP, CBCAD, FT4, LIPD, VITD #### [facility] [address], [place] [id number] Potassium [Moles/Vol] 4.5 mmol/L Normal 3.5-5.5 [facility] Comment on above: Performed By: #### T SH reflex FT4, CMP, CBCAD, FT4, LIPD, VITD #### [facility] [address], [place] [id number] Protein [Mass/Vol] 6.8 g/dL Normal 6.1-8.1 [facility] [place] [employer] Comment on above: Performed By: #### T SH reflex FT4, CMP, CBCAD, FT4, LIPD, VITD #### [facility] [address], [place] [id number] Sodium [Moles/Vol] 143 mmol/L Normal 135-146 [facility] [place] [employer] Comment on above: Performed By: #### T SH reflex FT4, CMP, CBCAD, FT4, LIPD, VITD #### [facility] [address], [place] [id number] TBIL <0.3 Normal [facility] [employer] Comment on above: Performed By: #### T SH reflex FT4, CMP, CBCAD, FT4, LIPD, VITD #### [facility] [address], [place] [id number] Urea nitrogen [Mass/Vol] 12 mg/dL Normal 7-25 [facility] [employer] Comment on above: Performed By: #### T SH reflex FT4, CMP, CBCAD, FT4, LIPD, VITD #### [facility] [address], [place] [id number] Free T4on 10-16-2021 Free T4 [Mass/Vol] 0.93 ng/dL Normal 0.80-1.80 [facility] [place] [employer] Comment on above: Performed By: #### T SH reflex FT4, CMP, CBCAD, FT4, LIPD, VITD #### [facility] [address], [place] [id number] Lipid Panelon 10-16-2021 Cholesterol [Mass/Vol] 172 mg/dL Normal 125-200 [facility] [employer] Comment on above: Result Comment: Low risk < 200mg/dL Borderline risk 201-239 mg/dl High risk > or equal to 240 Performed By: #### T SH reflex FT4, CMP, CBCAD, FT4, LIPD, VITD #### [facility] [address], [place] [id number] Cholesterol in HDL [Mass/Vol] 41 mg/dL Normal >40 [facility] [employer] Comment on above: Result Comment: High Cardiovascular Risk HDL <40 mg/dL Low Cardiovascular Risk HDL > or equal to 60 mg/dl Performed By: #### T SH reflex FT4, CMP, CBCAD, FT4, LIPD, VITD #### [facility] [address], [place] [id number] Cholesterol in LDL [Mass/Vol] 96 mg/dL Normal [facility] Comment on above: Result Comment: LDL ATP III CLASSIFICATION LDL less than 100 mg/dl Optimal LDL 100-129 mg/dl Near or above optimal LDL 130-159 Borderline high LDL 160-189 High LDL greater than 189 mg/dl Very High Performed By: #### T SH reflex FT4, CMP, CBCAD, FT4, LIPD, VITD #### [facility] [address], [place] [id number] Cholesterol in VLDL [Mass/Vol] 35 mg/dL Normal [facility] Comment on above: Performed By: #### T SH reflex FT4, CMP, CBCAD, FT4, LIPD, VITD #### [facility] [address], [place] [id number] Cholesterol.total/Cho lesterol in HDL [Mass ratio] 4 {ratio} Normal [facility] Comment on above: Performed By: #### T SH reflex FT4, CMP, CBCAD, FT4, LIPD, VITD #### [facility] [address], [place] [id number] Triglyceride [Mass/Vol] 176 mg/dL High 30-150 [facility] [employer] Comment on above: Result Comment: TRIG ATPIII CLASSIFICATIONS TRIG less than 150 mg/dl Normal TRIG 150-199 mg/dl Borderline High TRIG 200-500 mg/dl High TRIG greather than 500 mg/dl Very High Performed By: #### T SH reflex FT4, CMP, CBCAD, FT4, LIPD, VITD #### [facility] [address], [place] [id number] TSH w/ Reflex to Free T4on 0 - FT4 reflex Free T4 Normal [facility] Comment on above: Performed By: #### T SH reflex FT4, CMP, CBCAD, FT4, LIPD, VITD #### [facility] [address], [place] [id number] TSH 5.760 uIU/mL High 0.400-4.500 [facility] [employer] Comment on above: Performed By: #### T SH reflex FT4, CMP, CBCAD, FT4, LIPD, VITD #### [facility] [address], [place] [id number] Vitamin D 25-OHon 10-16-2021 VIT D 25 OH 53 ng/ml Normal >29 [facility] [employer] Comment on above: Result Comment: Mariana min D Status Deficiency <20 ng/mL Insufficiency 20-29 ng/mL Optimal 30-100 ng/mL Possible Toxicity >=150 ng/mL Performed By: #### T SH reflex FT4, CMP, CBCAD, FT4, LIPD, VITD #### [facility] [address], [place] [id number] Anesthesia Noteon 06-02-2021 Anesthesia Note [facility] Patient: IVONNE CESPEDES [address] [place] [address] MR#: [id number] ANESTHESIA NOTE : Service Date: 06/02/21 1057 [...] and Time Yossi Vargas AA 06/02/21 1057 Renu Donaldson DO Normal [facility] BASIC MET PANELon 06-02-2021 Anion gap [Moles/Vol] 10 mmol/L Normal 6-18 [facility] Comment on above: Performed By: #### M [id number] #### Test performed at: [place] [address] Calcium [Mass/Vol] 8.4 mg/dL Low 8.5-10.1 [facility] Comment on above: Performed By: #### M [id number] #### Test performed at: [address] [address] Chloride [Moles/Vol] 106 mmol/L Normal 98-107 [facility] Comment on above: Performed By: #### M [id number] #### Test performed at: [address] [address] CO2 [Moles/Vol] 26 mmol/L Normal 21-32 [facility] [place] Comment on above: Performed By: #### M [id number] #### Test performed at: [address] [address] Creatinine [Mass/Vol] 0.649 mg/dL Normal 0.550-1.020 [facility] Comment on above: Performed By: #### M [id number] #### Test performed at: [address] [address] Glucose [Mass/Vol] 167 mg/dL High 70-99 [facility] Comment on above: Result Comment: Fast ing GLUCOSE reference range has been updated per (ADA) [place] [employer]'s recommendation. 11/18/2018 Performed By: #### M 400.37786 #### Test performed at: [address] [address] OSM 290 mosm/kg Normal 270-300 [facility] Comment on above: Performed By: #### M 400.37691 #### Test performed at: [address] [address] Potassium [Moles/Vol] 4.2 mmol/L Normal 3.5-5.1 [facility] Comment on above: Performed By: #### M 400.67274 #### Test performed at: [place] [address] Sodium [Moles/Vol] 138 mmol/L Normal 136-145 [facility] Comment on above: Performed By: #### M 400.76762 #### Test performed at: [place] [address] Urea nitrogen [Mass/Vol] 12 mg/dL Normal 7-18 [facility] Comment on above: Performed By: #### M 400.23347 #### Test performed at: [place] [address] Discharge CCD Assessmenton 1 Discharge CCD Assessment [facility] Patient: IVONNE CESPEDES [address] [place] [address] MR#: [id number] DISCHARGE CCD ASSESSMENT : 51 Service Date: 06/02/21 1029 Discharge CCD Assessment Assessment Patient discharged home to continue pain control, wound care, and exercises. Electronically Signed eSign Date and Time Comfort Chao 06/02/21 1030 Dev Villafana MD Normal [facility] GFR ESTIMATEon 06-02-2021 IF AMER > 60 Normal > 60 [facility] Comment on above: Result Comment: eGFR (Estimated GFR) Units of measure:mL/min/1.73 meters sq. *CALCULATION REVISED 06/14/2015;IDMS-traceable MDRD equation eGFR is derived from the reexpressed MDRD Study equation using the following parameters: serum creatinine, age, gender and race. An eGFR<60 mL/min/1.73m2 for >3 months is consistent with chronic kidney disease. Refer to KDOQI guidelines for clinical interpretation. Performed By: #### M 400.30760 #### Test performed at: [place] [address] IF non-AFR AMER > 60 Normal > 60 [facility] Comment on above: Performed By: #### M 400.38259 #### Test performed at: [place] [address] HGB AND HCTon 06-02-2021 Hematocrit (Bld) [Volume fraction] 33.9 % Low 36.0-48.0 [facility] Comment on above: Performed By: #### M 400.02599 #### Test performed at: [place] [address] Hemoglobin (Bld) [Mass/Vol] 11.0 g/dL Low 12.0-15.0 [facility] Comment on above: Result Comment: Delt a: 13.7 on 05/30/21-1240 Performed By: #### M 400.43656 #### Test performed at: [place] [address] Internal Med Progress Noteon 06-02-2021 Internal Med Progress Note [facility] Patient: IVONNE CESPEDES [address] [place] [address] MR#: [id number] PROGRESS NOTE - Internal Medicine : 51 Service Date: 06/02/21724 Subjective Primary Resident: Kar Canales After Hours Call: [phone] Blue Team Summary of Stay a 66 y/o F pt with PMHx of KERON who is POD#1 s/p L5-S1 extraspinal decompression [...] Strength at 5/5 X4 Ext, Sensation Intact Assessment/Plan-Inte rnal Med Problem List 1. Status post lumbar [...] Agree with above documentation. The [resident's, PA's, RADIO INTELLIGENCE OPERATOR's] assessment and plan reflect my input. Discussed with documenting provider and patient. Plan is as outlined above. Electronically Signed eSign Date and Time Bar Canales Donald E. MD 06/03/21 2346 Daija Henry RES Normal [facility] OT Therapy Recommendationson 06-02-2021 OT Therapy Recommendations [facility] Patient: IVONNE CESPEDES [address] [place] [address] MR#: [id number] OT THERAPY RECOMMENDATIONS : 51 Service Date: 06/02/21 1143 Therapy Recommendations Therapy Recommendations Recommendations Occupational therapy eval complete. No skilled OT indicated. Recommend home with family assist. D/C OT services. Electronically Signed eSign Date and Time Cathryn Stoll OT 06/02/21 1144 Normal [facility] Orthopedic Progress Noteon 1 Orthopedic Progress Note [facility] Patient: IVONNE CESPEDES [address] [place] [address] MR#: [id number] PROGRESS NOTE - Orthopedic : 51 Service [...] Signs Verdana 4d Result Date Time B/P 9506/02 1058 Temp 36.6 06/02 1058 Pulse 65 [...] [facility] Patient: IVONNE CESPEDES [address] [place] [address] MR#: [id number] PT THERAPY RECOMMENDATIONS : 51 Service Date: 06/02/21 1503 Therapy Recommendations Therapy Recommendations Recommendations PT EVAL COMPLETED. DC RECOMM: HOME WITH ASST. FROM FAMILY AND FRIENDS. Electronically Signed eSign Date and Time Twyla Billings PT 06/02/21 1503 Normal [facility] z OT Inpatient Discharge Not susana 06-02-2021 z OT Inpatient Discharge Note [facility] Patient: IVONNE CESPEDES [address] [place] [id number] MR#: [id number] OT INPATIENT DISCHARGE NOTE : 51 Service [...] Evaluation [facility] Patient: IVONNE CESPEDES [place] [id number] MR#: [id number] OT INPATIENT EVALUATION : 51 Inpatient OT [...] 12 (to 2nd fl bed/bath) ADL Equipment [employer] Coremaker Bedroom Location 2nd Floor Bathroom Location 1st [...] [facility] Inpatient Discharge Not susana 06-02-2021 z PT Inpatient Discharge Note [facility] Patient: IVONNE CESPEDES [address] [place] [id number] MR#: [id number] PT INPATIENT DISCHARGE NOTE : 51 Service [...] Evaluation [facility] Patient: IVONNE CESPEDES [address] [place] [id number] MR#: [id number] PT INPATIENT EVALUATION : 51 Service Date: [...] , BRACE ON, UP WITH ASST., ENCOURAGE AMBULATION/CALF/ANKL E EX'S. PATIENT ID'D VIA NAME AND . [...] 12 (to 2nd fl bed/bath) ADL Equipment Shell Coremaker Bedroom Location 2nd Floor Bathroom Location 1st [...] Recommendations Home-No Home Health Care Topic #1 ARMOR OFFICER Teaching Method: BOOKLET Teaching Method: TEACHBACK Outcome: [...] [facility] Patient: IVONNE CESPEDES [address] [place] [address] MR#: [id number] CONSULTATION - Internal Medicine : 51 Service [...] REPORTon OPERATIVE REPORT NAME: IVONNE CESPEDES MR#: [id number] SURGEON: Dev Villafana MD DATE OF SURGERY: [...] room in excellent condition. There were no [facility] PT NAME: IVONNE CESPEDES MR#: [id number] [address] [place] [address] ACCT: [id number] : 51 OPERATIVE REPORT complications. MD MATIAS NIEVES/MODL/[id number] E/S: Dev Villafana MD 06/29/21 1129 Electronically Signed [facility] PT NAME: IVONNE CESPEDES MR#: [id number] [address] [place] [address] ACCT: [id number] : 51 OPERATIVE REPORT Normal [facility] Primary Residenton Primary Resident [facility] Pt Name: IVONNE CESPEDES MR#: [id number] [address] [place] [address] ACCT: [id number] [place] [address] : 51 Service Date: 06/01/21 1246 Primary [...] DECOMP. FACETECTOMY, DISCECTOMY. COMPARISON: None. ACCESSION NUMBER(S): [id number] ORDERING CLINICIAN: Dev Villafana FINDINGS: Intraoperative fluoroscopy of the lumbar spine obtained for localization. IMPRESSION: As above Normal [facility] CBC W/DIFFon 05-30-2021 BASO ABS 0.1 K/uL Normal 0.0-0.2 [facility] Comment on above: Performed By: #### L 200.66875 #### Test performed at: [place] [address] Basophils/100 WBC (Bld) 0.8 % Normal [facility] Comment on above: Performed By: #### L 200.82995 #### Test performed at: [address] [address] EOS ABS 0.2 K/uL Normal 0.0-0.5 [facility] Comment on above: Performed By: #### L 200.65634 #### Test performed at: [address] [address] Eosinophils/100 WBC (Bld) 3.3 % Normal [facility] Comment on above: Performed By: #### L 200.25021 #### Test performed at: [address] [address] Erythrocyte distribution width (RBC) [Ratio] 14.3 % Normal 11.5-14.5 [facility] Comment on above: Performed By: #### L 200.04765 #### Test performed at: [address] [address] Hematocrit (Bld) [Volume fraction] 42.9 % Normal 36.0-48.0 [facility] Comment on above: Performed By: #### L 200.80683 #### Test performed at: [address] [address] Hemoglobin (Bld) [Mass/Vol] 13.7 g/dL Normal 12.0-15.0 [facility] Comment on above: Performed By: #### L 200.11886 #### Test performed at: [address] [address] IG % 0.2 % Normal [facility] Comment on above: Performed By: #### L 200.94549 #### Test performed at: [address] [address] IG ABS 0.01 K/uL Normal 0-0.05 [facility] Comment on above: Performed By: #### L 200.86564 #### Test performed at: [address] [address] Lymphocytes (Bld) [#/Vol] 1.8 10*3/uL Normal 1.2-3.5 [facility] Comment on above: Performed By: #### L 200.23626 #### Test performed at: [address] [address] Lymphocytes/100 WBC (Bld) 28.9 % Normal [facility] Comment on above: Performed By: #### L 200.83872 #### Test performed at: [address] [address] MCH (RBC) [Entitic mass] 29.3 pg Normal 25.4-34.6 [facility] Comment on above: Performed By: #### L 200.41178 #### Test performed at: [address] [address] MCHC (RBC) [Mass/Vol] 31.9 g/dL Normal 31.5-36.5 [facility] Comment on above: Performed By: #### L 200.17888 #### Test performed at: [address] [address] MCV (RBC) [Entitic vol] 91.7 fL Normal 79.0-98.0 [facility] Comment on above: Performed By: #### L 200.39658 #### Test performed at: [address] [address] MONO ABS 0.5 K/uL Normal 0.0-1.0 [facility] Comment on above: Performed By: #### L 200.05022 #### Test performed at: [address] [address] Monocytes/100 WBC (Bld) 7.4 % Normal [facility] Comment on above: Performed By: #### L 200.14987 #### Test performed at: [address] [address] NEUTROPHIL ABS 3.8 K/uL Normal 1.4-6.6 [facility] Comment on above: Performed By: #### L 200.74266 #### Test performed at: [address] [address] Neutrophils/100 WBC (Bld) 59.4 % Normal [facility] Comment on above: Performed By: #### L 200.51978 #### Test performed at: [address] [address] NRBC # 0.000 K/uL Normal 0-0.012 [facility] Comment on above: Performed By: #### L 200.37000 #### Test performed at: [address] [address] NRBC % 0.0 /100 WBC Normal 0-0.2 [facility] Comment on above: Performed By: #### L 200.41028 #### Test performed at: [address] [address] Platelet mean volume (Bld) [Entitic vol] 10.9 fL Normal 8.7-12.4 [facility] Comment on above: Performed By: #### L 200.21057 #### Test performed at: [address] [address] Platelets (Bld) [#/Vol] 224 10*3/uL Normal 140-440 [facility] Comment on above: Performed By: #### L 200.73793 #### Test performed at: [address] [address] RBC (Bld) [#/Vol] 4.68 10*6/uL Normal 3.5-5.5 [facility] Comment on above: Performed By: #### L 200.36652 #### Test performed at: [address] [address] WBC (Bld) [#/Vol] 6.4 10*3/uL Normal 3.9-11.0 [facility] Comment on above: Performed By: #### L 200.69960 #### Test performed at: [address] [address] CHEST PA/AP & LATERALon CHEST PA/AP & LATERAL STUDY: CHEST PA/AP LATERAL; 05/30/2021 12:50 pm INDICATION: SOB/PAT. COMPARISON: None. ACCESSION NUMBER(S): [id number] ORDERING CLINICIAN: Dev Villafana FINDINGS: The lungs are clear without pleural effusion. Normal heart size, mediastinum, isidoro, and pulmonary vasculature. IMPRESSION: No active disease in the chest. Normal [facility] COMP META PANELon 05-30-2021 Albumin [Mass/Vol] 3.6 g/dL Normal 3.4-5.0 [facility] Comment on above: Performed By: #### L 500.61399, L500.88320 #### Test performed at: [address] [address] ALK PHOS TOTAL 88 U/L Normal 45-117 [facility] Comment on above: Performed By: #### L 500.31363, L500.54640 #### Test performed at: [address] [address] ALT [Catalytic activity/Vol] 13 U/L Normal 13-61 [facility] Comment on above: Performed By: #### L 500.72610, L500.55003 #### Test performed at: [address] [address] AST [Catalytic activity/Vol] 20 U/L Normal 15-37 [facility] Comment on above: Performed By: #### L 500.08296, L500.92183 #### Test performed at: [address] [address] BILI TOTAL 0.3 mg/dL Normal 0.2-1.0 [facility] Comment on above: Performed By: #### L 500.69710, L500.76256 #### Test performed at: [address] [address] Calcium [Mass/Vol] 9.1 mg/dL Normal 8.5-10.1 [facility] Comment on above: Performed By: #### L 500.66866, L500.57051 #### Test performed at: [address] [address] Chloride [Moles/Vol] 107 mmol/L Normal 98-107 [facility] Comment on above: Performed By: #### L 500.25270, L500.85487 #### Test performed at: [address] [address] CO2 [Moles/Vol] 29 mmol/L Normal 21-32 [facility] Comment on above: Performed By: #### L 500.61519, L500.41236 #### Test performed at: [address] [address] Creatinine [Mass/Vol] 0.553 mg/dL Normal 0.550-1.020 [facility] Comment on above: Performed By: #### L 500.79569, L500.14377 #### Test performed at: [address] [address] Glucose [Mass/Vol] 100 mg/dL High 70-99 [facility] Comment on above: Result Comment: Fast ing GLUCOSE reference range has been updated per (ADA) [place] [employer]'s recommendation. 11/18/2018 Performed By: #### L 500.56990, L500.37618 #### Test performed at: [address] [address] Potassium [Moles/Vol] 4.4 mmol/L Normal 3.5-5.1 [facility] Comment on above: Performed By: #### L 500.49444, L500.41867 #### Test performed at: [address] [address] Protein [Mass/Vol] 7.4 g/dL Normal 6.4-8.2 [facility] Comment on above: Performed By: #### L 500.57607, L500.44070 #### Test performed at: [address] [address] Sodium [Moles/Vol] 139 mmol/L Normal 136-145 [facility] Comment on above: Performed By: #### L 500.12860, L500.07023 #### Test performed at: [address] [address] Urea nitrogen [Mass/Vol] 9 mg/dL Normal 7-18 [facility] Comment on above: Performed By: #### L 500.37644, L500.69225 #### Test performed at: [address] [address] CONSULTATION REPORTon 2020 CONSULTATION REPORT NAME: IVONNE CESPEDES MR#: [id number] BIOLOGY RESEARCH ASSISTANT: Tommie Mcwilliams MD DATE OF CONSULTATION: 05/30/2021 [...] no major past history. She has a 32-jkxn-pipt smoking, and no fevers or chills. No [...] disorder. 3. Possible chronic obstructive pulmonary disease. [facility] PT NAME: IVONNE CESPEDES MR#: [id number] [address] [place] [address] ACCT: [id number] : 51 CONSULTATION PLAN: EKG is within [...] courtesy of this consultation. TOMMIE MCWILLIAMS MD MS/MODL/[id number] E/S: Tommie Mcwilliams MD 05/31/21 1510 Electronically Signed [facility] PT NAME: IVONNE CESPEDES MR#: [id number] [address] [place] [address] ACCT: [id number] : 51 CONSULTATION Normal [facility] [...] labeling are available on the FDA website: https://www.fda.gov/ MedicalDevices/Safet y/ EmergencySituations/ dte854334.htm COVID-19 Negative for COVID-19 (SARS-CoV-2 RNA) Normal [facility] Comment on above: Order Comment: CBN: YES [place]: MAIN COVID Testing: PRE-OP/PROCEDURE SCREEN Comment: 06/02 AGE at Spec SHUN 66 Report age at specimen SHUN? Y First test: UNKNOWN Employed in Healthcare: NO Symptomatic as defined by CDC: NO Hospitalized for COVID-19? NO ICU: NO Resident in a Congregated Care Setting: NO Order Date: 05/30/21 : Not Performed By: #### M 400.46873 #### Test performed at: [address], [place] [address] GFR ESTIMATEon 05-30-2021 IF AMER > 60 Normal > 60 [facility] Comment on above: Result Comment: eGFR (Estimated GFR) Units of measure:mL/min/1.73 meters sq. *CALCULATION REVISED 06/14/2015;IDMS-traceable MDRD equation eGFR is derived from the reexpressed MDRD Study equation using the following parameters: serum creatinine, age, gender and race. An eGFR<60 mL/min/1.73m2 for >3 months is consistent with chronic kidney disease. Refer to KDOQI guidelines for clinical interpretation. Performed By: #### L 500.22175, L500.81020 #### Test performed at: [place] [address] IF non-AFR AMER > 60 Normal > 60 [facility] Comment on above: Performed By: #### L 500.66122, L500.43480 #### Test performed at: [place] [address] PROTIMEon 05-30-2021 INR Coag (PPP) [Relative time] 0.96 {INR} Normal 0.00-1.20 [facility] Comment on above: Order Comment: List patient's anticoagulants for PT: NONE SPECIFIED Result Comment: Rc mmended therapeutic range is an INR of 2.0-3.0 except for prevention of recurrent acute ND and mechanical prosthetic heart valve where an INR of 2.5-3.5 is recommended. Performed By: #### L 300.18033 #### Test performed at: [place] [address] PT SEC 10.3 seconds Normal 9.0-12.5 [facility] Comment on above: Order Comment: List patient's anticoagulants for PT: NONE SPECIFIED Performed By: #### L 300.19940 #### Test performed at: [place] [address] LUMB SP COMP W FLEX/EXT 6 VW Son 2021 LUMB SP COMP W FLEX/EXT 6 VWS STUDY: LUMB SP COMP W FLEX/EXT 6 VWS ; 2021 9:55 am INDICATION: PAIN. COMPARISON: No available comparisons. ACCESSION NUMBER(S): [id number] ORDERING CLINICIAN: Dev Villafana TECHNIQUE: 6 views [...] Time Vital Sign Value Performing Clinician Facility 05-18-2024 13:52-0400 Body temperature 97.3 [degF] [employer] Work Phone: [facility] 05-18-2024 13:52-0400 Diastolic blood pressure 80 mm[Hg] [employer] Work Phone: [facility] 05-18-2024 13:52-0400 Heart rate 71 /min [employer] Work Phone: [facility] 05-18-2024 13:52-0400 Respiratory rate 16 /min [employer] Work Phone: [facility] 05-18-2024 13:52-0400 SaO2% (BldA) [Mass fraction] 98 % [employer] Work Phone: [facility] 05-18-2024 13:52-0400 Systolic blood pressure 121 mm[Hg] Ma [employer] Work Phone: [facility] 05-06-2024 10:54-0400 Body height 152.4 cm [facility] 05-06-2024 10:54-0400 Body mass index (BMI) [Ratio] 24 kg/m2 [facility] 05-06-2024 10:54-0400 Body weight 55.79 kg [facility] 04-20-2024 14:16-0400 Body mass index (BMI) [Ratio] 24.37 kg/m2 [employer] Work Phone: [facility] 04-20-2024 14:16-0400 Body temperature 97.7 [degF] [employer] Work Phone: [facility] 04-20-2024 14:16-0400 Body weight 56.6 kg [employer] Work Phone: [facility] 04-20-2024 14:16-0400 Diastolic blood pressure 69 mm[Hg] [employer] Work Phone: [facility] 04-20-2024 14:16-0400 Heart rate 91 /min [employer] Work Phone: [facility] 04-20-2024 14:16-0400 Respiratory rate 16 /min [employer] Work Phone: [facility] 04-20-2024 14:16-0400 SaO2% (BldA) [Mass fraction] 95 % [employer] Work Phone: [facility] 04-20-2024 14:16-0400 Systolic blood pressure 107 mm[Hg] [employer] Work Phone: [facility] 04-06-2024 12:30-0400 Blood Pressure Location Mohhoward Ramirezli [facility] 04-06-2024 12:30-0400 Diastolic blood pressure 87 mm[Hg] Mohakild Jamesli [facility] 04-06-2024 12:30-0400 Heart rate 67 /min Mohamad Mouchli [facility] 04-06-2024 12:30-0400 Respiratory rate 16 /min Mohamad Mouchli [facility] 04-06-2024 12:30-0400 Systolic blood pressure 136 mm[Hg] Mohamad Mouchli [facility] 03-23-2024 14:22-0400 Body height 152.4 cm Maikel Lunsford MD Work Phone: [facility] 03-23-2024 14:22-0400 Body mass index (BMI) [Ratio] 23.94 kg/m2 Maikel Lunsford MD Work Phone: [facility] 03-23-2024 14:22-0400 Body temperature 97.2 [degF] Maikel Lunsford MD Work Phone: [facility] 03-23-2024 14:22-0400 Body weight 55.6 kg Maikel Lunsford MD Work Phone: [facility] 03-23-2024 14:22-0400 Diastolic blood pressure 84 mm[Hg] Maikel Lunsford MD Work Phone: [facility] 03-23-2024 14:22-0400 Heart rate 74 /min Maikel Lunsford MD Work Phone: [facility] 03-23-2024 14:22-0400 Respiratory rate 16 /min Maikel Lunsford MD Work Phone: [facility] 03-23-2024 14:22-0400 SaO2% (BldA) [Mass fraction] 97 % Maikel Lunsford MD Work Phone: [facility] 03-23-2024 14:22-0400 Systolic blood pressure 145 mm[Hg] Maikel Lunsford MD Work Phone: [facility] 03-12-2024 14:49-0400 Body height 152.4 cm [facility] 03-12-2024 14:49-0400 Body mass index (BMI) [Ratio] 23.4 kg/m2 [facility] 03-12-2024 14:49-0400 Body weight 54.43 kg [facility] 03-12-2024 14:49-0400 Diastolic blood pressure 81 mm[Hg] [facility] 03-12-2024 14:49-0400 Heart rate 74 /min [facility] 03-12-2024 14:49-0400 Systolic blood pressure 131 mm[Hg] [facility] 01-30-2024 14:39-0400 Body temperature 97.81 [degF] Ma Sand Work Phone: [facility] 01-30-2024 14:39-0400 Diastolic blood pressure 86 mm[Hg] Ma Sand Work Phone: [facility] 01-30-2024 14:39-0400 Heart rate 92 /min Ma Sand Work Phone: [facility] 01-30-2024 14:39-0400 Respiratory rate 16 /min Ma Sand Work Phone: [facility] 01-30-2024 14:39-0400 SaO2% (BldA) [Mass fraction] 96 % Ma Sand Work Phone: [facility] 01-30-2024 14:39-0400 Systolic blood pressure 136 mm[Hg] Ma Sand Work Phone: [facility] 01-02-2024 14:29-0400 Body temperature 97 [degF] Ma Sand Work Phone: [facility] 01-02-2024 14:29-0400 Diastolic blood pressure 86 mm[Hg] Ma Sand Work Phone: [facility] 01-02-2024 14:29-0400 Heart rate 77 /min Ma Sand Work Phone: [facility] 01-02-2024 14:29-0400 Respiratory rate 18 /min Ma Sand Work Phone: [facility] 01-02-2024 14:29-0400 SaO2% (BldA) [Mass fraction] 98 % Ma [employer] Work Phone: [facility] 01-02-2024 14:29-0400 Systolic blood pressure 133 mm[Hg] Ma Sand Work Phone: [facility] 12-05-2023 14:50-0400 Body temperature 97.39 [degF] Ma Sand Work Phone: [facility] 12-05-2023 14:50-0400 Diastolic blood pressure 84 mm[Hg] Ma Sand Work Phone: [facility] 12-05-2023 14:50-0400 Heart rate 82 /min Ma Sand Work Phone: [facility] 12-05-2023 14:50-0400 Respiratory rate 18 /min Ma Sand Work Phone: [facility] 12-05-2023 14:50-0400 SaO2% (BldA) [Mass fraction] 97 % Ma Sand Work Phone: [facility] 12-05-2023 14:50-0400 Systolic blood pressure 139 mm[Hg] Ma Sand Work Phone: [facility] 11-07-2023 14:10-0400 Body temperature 97.11 [degF] Ma Sand Work Phone: [facility] 11-07-2023 14:10-0400 Diastolic blood pressure 90 mm[Hg] Ma Sand Work Phone: [facility] 11-07-2023 14:10-0400 Heart rate 79 /min Ma Sand Work Phone: [facility] 11-07-2023 14:10-0400 Respiratory rate 18 /min Ma Sand Work Phone: [facility] 11-07-2023 14:10-0400 SaO2% (BldA) [Mass fraction] 97 % Ma Sand Work Phone: [facility] 11-07-2023 14:10-0400 Systolic blood pressure 119 mm[Hg] Ma Sand Work Phone: [facility] 10-11-2023 13:06-0500 Blood Pressure Location Rosa Shearer [facility] 10-11-2023 13:06-0500 Body temperature 96.98 [degF] Rosa Shearer [facility] 10-11-2023 13:06-0500 Diastolic blood pressure 87 mm[Hg] Rosa Shearer [facility] 10-11-2023 13:06-0500 Heart rate 79 /min Rosa Shearer [facility] 10-11-2023 13:06-0500 Systolic blood pressure 132 mm[Hg] Rosa Shearer [facility] 10-10-2023 13:47-0500 Body height 152.4 cm Ma Sand Work Phone: [facility] 10-10-2023 13:47-0500 Body temperature 97.7 [degF] Ma Sand Work Phone: [facility] 10-10-2023 13:47-0500 Body weight 53.98 kg Ma Sand Work Phone: [facility] 10-10-2023 13:47-0500 Diastolic blood pressure 88 mm[Hg] Ma Sand Work Phone: [facility] 10-10-2023 13:47-0500 Heart rate 89 /min Ma Sand Work Phone: [facility] 10-10-2023 13:47-0500 Respiratory rate 16 /min Ma Sand Work Phone: [facility] 10-10-2023 13:47-0500 SaO2% (BldA) [Mass fraction] 98 % Ma Sand Work Phone: [facility] 10-10-2023 13:47-0500 Systolic blood pressure 129 mm[Hg] Ma Sand Work Phone: [facility] 07-31-2023 14:20-0500 Diastolic blood pressure 46 mm[Hg] Ma Sand Work Phone: [facility] 07-31-2023 14:20-0500 Heart rate 161 /min Ma Sand Work Phone: [facility] 07-31-2023 14:20-0500 Systolic blood pressure 78 mm[Hg] Ma Sand Work Phone: [facility] 07-31-2023 14:00-0500 Body temperature 97.11 [degF] Ma Sand Work Phone: [facility] 07-31-2023 14:00-0500 Respiratory rate 18 /min Ma Sand Work Phone: [facility] 07-31-2023 14:00-0500 SaO2% (BldA) [Mass fraction] 98 % Ma Sand Work Phone: [facility] 07-26-2023 13:36-0500 Blood Pressure Location Rosa Shearer [facility] 07-26-2023 13:36-0500 Body temperature 97.88 [degF] Rosa Shearer [facility] 07-26-2023 13:36-0500 Diastolic blood pressure 88 mm[Hg] Rosa Shearer [facility] 07-26-2023 13:36-0500 Heart rate 74 /min Rosa Shearer [facility] 07-26-2023 13:36-0500 Systolic blood pressure 130 mm[Hg] Rosa Shearer [facility] 07-03-2023 13:57-0500 Body height 152.4 cm Ma Sand Work Phone: [facility] 07-03-2023 13:57-0500 Body temperature 97.9 [degF] Ma Sand Work Phone: [facility] 07-03-2023 13:57-0500 Body weight 53.98 kg Ma Sand Work Phone: [facility] 07-03-2023 13:57-0500 Diastolic blood pressure 90 mm[Hg] Ma Sand Work Phone: [facility] 07-03-2023 13:57-0500 Heart rate 75 /min Ma Sand Work Phone: [facility] 07-03-2023 13:57-0500 Respiratory rate 16 /min Ma Sand Work Phone: [facility] 07-03-2023 13:57-0500 SaO2% (BldA) [Mass fraction] 98 % Ma Sand Work Phone: [facility] 07-03-2023 13:57-0500 Systolic blood pressure 134 mm[Hg] Ma Sand Work Phone: [facility] 06-26-2023 12:45-0400 Diastolic blood pressure 82 mm[Hg] Rosa [facility] 06-26-2023 12:45-0400 Mean blood pressure 101 mm[Hg] Rosa [facility] 06-26-2023 12:45-0400 Systolic blood pressure 138 mm[Hg] Rosa [facility] 06-26-2023 12:36-0400 Blood Pressure Location Rosa Man[facility] 06-26-2023 12:36-0400 Body temperature 97.7 [degF] Rosa [facility] 06-26-2023 12:36-0400 Diastolic blood pressure 87 mm[Hg] Rosa [facility] 06-26-2023 12:36-0400 Heart rate 70 /min Rosa Man[facility] 06-26-2023 12:36-0400 Systolic blood pressure 145 mm[Hg] Rosa [facility] 06-05-2023 14:25-0400 Body height 152.4 cm Maikel Lunsford MD Work Phone: [facility] 06-05-2023 14:25-0400 Body temperature 97 [degF] Maikel Lunsford MD Work Phone: [facility] 06-05-2023 14:25-0400 Body weight 53.34 kg Maikel Lunsford MD Work Phone: [facility] 06-05-2023 14:25-0400 Diastolic blood pressure 70 mm[Hg] Maikel Lunsford MD Work Phone: [facility] 06-05-2023 14:25-0400 Heart rate 78 /min Maikel Lunsford MD Work Phone: [facility] 06-05-2023 14:25-0400 Respiratory rate 16 /min Maikel Lunsford MD Work Phone: [facility] 06-05-2023 14:25-0400 SaO2% (BldA) [Mass fraction] 97 % Maikel Lunsford MD Work Phone: [facility] 06-05-2023 14:25-0400 Systolic blood pressure 125 mm[Hg] Maikel Lunsford MD Work Phone: [facility] 04-05-2023 10:29-0400 Body temperature 97.7 [degF] Ma Sand Work Phone: [facility] 04-05-2023 10:29-0400 Diastolic blood pressure 81 mm[Hg] Ma Sand Work Phone: [facility] 04-05-2023 10:29-0400 Heart rate 79 /min Ma Sand Work Phone: [facility] 04-05-2023 10:29-0400 Respiratory rate 16 /min Ma Sand Work Phone: [facility] 04-05-2023 10:29-0400 SaO2% (BldA) [Mass fraction] 99 % Ma Sand Work Phone: [facility] 04-05-2023 10:29-0400 Systolic blood pressure 124 mm[Hg] Ma Sand Work Phone: [facility] 03-29-2023 14:21-0400 Body temperature 97.81 [degF] Ma Sand Work Phone: [facility] 03-29-2023 14:21-0400 Body weight 52.89 kg Ma Sand Work Phone: [facility] 03-29-2023 14:21-0400 Diastolic blood pressure 72 mm[Hg] Ma Sand Work Phone: [facility] 03-29-2023 14:21-0400 Heart rate 88 /min Ma Sand Work Phone: [facility] 03-29-2023 14:21-0400 Respiratory rate 16 /min Ma Sand Work Phone: [facility] 03-29-2023 14:21-0400 SaO2% (BldA) [Mass fraction] 94 % Ma Sand Work Phone: [facility] 03-29-2023 14:21-0400 Systolic blood pressure 105 mm[Hg] Ma Sand Work Phone: [facility] 03-26-2023 12:45-0400 Blood Pressure Location Rosa Manfred [facility] 03-26-2023 12:45-0400 Body temperature 96.98 [degF] Rosa Herediametz [facility] 03-26-2023 12:45-0400 Diastolic blood pressure 74 mm[Hg] Rosa Herediametz [facility] 03-26-2023 12:45-0400 Heart rate 74 /min Rosa Herediametz [facility] 03-26-2023 12:45-0400 Systolic blood pressure 110 mm[Hg] Rosa Herediametz [facility] 03-22-2023 14:31-0400 Body temperature 97.5 [degF] Ma Sand Work Phone: [facility] 03-22-2023 14:31-0400 Diastolic blood pressure 70 mm[Hg] Ma Sand Work Phone: [facility] 03-22-2023 14:31-0400 Heart rate 82 /min Ma Sand Work Phone: [facility] 03-22-2023 14:31-0400 Respiratory rate 16 /min Ma Sand Work Phone: [facility] 03-22-2023 14:31-0400 SaO2% (BldA) [Mass fraction] 95 % Ma Sand Work Phone: [facility] 03-22-2023 14:31-0400 Systolic blood pressure 94 mm[Hg] Ma Sand Work Phone: [facility] 03-13-2023 11:13-0400 Body height 152.4 cm Maikel Lunsford MD Work Phone: [facility] 03-13-2023 11:13-0400 Body temperature 97.39 [degF] Maikel Lunsford MD Work Phone: [facility] 03-13-2023 11:13-0400 Body weight 53.8 kg Maikel Lunsford MD Work Phone: [facility] 03-13-2023 11:13-0400 Diastolic blood pressure 88 mm[Hg] Maikel Lunsford MD Work Phone: [facility] 03-13-2023 11:13-0400 Heart rate 73 /min Maikel Lunsford MD Work Phone: [facility] 03-13-2023 11:13-0400 Respiratory rate 16 /min Maikel Lunsford MD Work Phone: [facility] 03-13-2023 11:13-0400 SaO2% (BldA) [Mass fraction] 98 % Maikel Lunsford MD Work Phone: [facility] 03-13-2023 11:13-0400 Systolic blood pressure 145 mm[Hg] Maikel Lunsford MD Work Phone: [facility] 02-22-2023 12:14-0400 Blood Pressure Location Rosa [facility] 02-22-2023 12:14-0400 Body temperature 96.8 [degF] Rosa [facility] 02-22-2023 12:14-0400 Diastolic blood pressure 82 mm[Hg] Rosa [facility] 02-22-2023 12:14-0400 Heart rate 75 /min Rosa [facility] 02-22-2023 12:14-0400 Systolic blood pressure 120 mm[Hg] Rosa [facility] 01-25-2023 11:40-0400 Body height 152.4 cm Yvonne Mcghee Other [employer] Other 01-25-2023 11:40-0400 Body mass index (BMI) [Ratio] 23.04 kg/m2 Yvonne Mcghee Other [employer] Other 01-25-2023 11:40-0400 Body weight 53.52 kg Yvonne Mcghee Other [employer] Other 01-25-2023 11:40-0400 Diastolic blood pressure 82 mm[Hg] Yvonne Mcghee Other [employer] Other 01-25-2023 11:40-0400 Respiratory rate 18 /min Yvonne Mcghee Other [employer] Other 01-25-2023 11:40-0400 SaO2% (BldA) [Mass fraction] 98 % Yvonne Mcghee Other [employer] Other 01-25-2023 11:40-0400 Systolic blood pressure 129 mm[Hg] Yvonne Mcghee Other [employer] Other 11-22-2022 12:59-0400 Blood Pressure Location Rosajessica [facility]redia[facility] 11-22-2022 12:59-0400 Body temperature 97.52 [degF] Rosa [facility] 11-22-2022 12:59-0400 Diastolic blood pressure 84 mm[Hg] Rosa [facility] 11-22-2022 12:59-0400 Heart rate 72 /min Rosa [facility]rediam[facility] 11-22-2022 12:59-0400 Systolic blood pressure 125 mm[Hg] Rosa [facility]rediam[facility] 10-10-2022 10:42-0500 Blood Pressure Location Chu SALAM [facility] 10-10-2022 10:42-0500 Diastolic blood pressure 87 mm[Hg] Hcu SALAM [facility] 10-10-2022 10:42-0500 Heart rate 74 /min Chu SALAM [facility] 10-10-2022 10:42-0500 Respiratory rate 16 /min Chu SALAM [facility] 10-10-2022 10:42-0500 SaO2% (BldA) [Mass fraction] 97 % Chu SALAM [facility] 10-10-2022 10:42-0500 Systolic blood pressure 131 mm[Hg] Chu SALAM [facility] 06-19-2022 12:52-0400 Blood Pressure Location Rosajessica Shearer [facility] 06-19-2022 12:52-0400 Body temperature 97.34 [degF] Rosa [facility]rediam[facility] 06-19-2022 12:52-0400 Diastolic blood pressure 83 mm[Hg] Rosa [facility]rediam[facility] 06-19-2022 12:52-0400 Heart rate 86 /min Rosa [facility]rediam[facility] 06-19-2022 12:52-0400 Systolic blood pressure 122 mm[Hg] Rosa [facility] 04-17-2022 12:21-0400 Blood Pressure Location Chu SALAM [facility] 04-17-2022 12:21-0400 Diastolic blood pressure 86 mm[Hg] Chu SALAM [facility] 04-17-2022 12:21-0400 Heart rate 62 /min Chu SALAM [facility] 04-17-2022 12:21-0400 Respiratory rate 16 /min Chu SALAM [facility] 04-17-2022 12:21-0400 Systolic blood pressure 128 mm[Hg] Chu SALAM [facility] 01-25-2022 13:42-0400 Diastolic blood pressure 91 mm[Hg] Chu SALAM [facility] 01-25-2022 13:42-0400 Heart rate 81 /min Chu SALAM [facility] 01-25-2022 13:42-0400 Systolic blood pressure 153 mm[Hg] Chu SALAM [facility] Encounters Encounter Date Encounter Type Care Provider Facility Start: 07-06-2024 ambulatory Liborio Reeves lity:[facility] Start: 05-18-2024 End: 05-18-2024 ambulatory [facility] Facility:[facility] Start: 05-18-2024 End: 05-18-2024 Nursing evaluation of patient and report Rafa Kennedy Work Phone: Hematology/Oncology Comment on above: Anemia, unspecified type (Primary Dx); 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 deficiency Start: 05-12-2024 End: 05-12-2024 ambulatory HONORIO ROJAS Not Available Start: 05-06-2024 End: 05-06-2024 ambulatory [facility] Work Phone: Start: 05-06-2024 End: 05-06-2024 Patient encounter procedure [facility] Gastroenterology Work Phone: Start: 04-20-2024 End: 04-20-2024 [facility] Start: 04-20-2024 End: 04-20-2024 Nursing evaluation of patient and report Rafa Kennedy Work Phone: Hematology/Oncology Comment on above: Anemia, unspecified type (Primary Dx); 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 deficiency Start: 04-06-2024 End: 04-06-2024 ambulatory Liborio Garcia Facility:[facility] Start: 04-06-2024 End: 04-06-2024 Patient encounter procedure Liborio Garcia [facility] Start: 03-23-2024 End: 03-23-2024 Nursing evaluation of patient and report Rafa Kennedy Work Phone: Hematology/Oncology Comment on above: Anemia, unspecified type (Primary Dx); 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 deficiency Start: 03-23-2024 End: 03-23-2024 Office outpatient visit 15 minutes Maikel Lunsford MD Work Phone: Hematology/Oncology Comment on above: 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 deficiency (Primary Dx) Start: 03-23-2024 End: 03-23-2024 ambulatory NURYS OROZCOA Facility:[facility] Start: 03-17-2024 End: 03-17-2024 ambulatory NURYS Hawa AMBROSE Not Available Start: 03-12-2024 End: 03-12-2024 ambulatory [facility] Work Phone: Start: 03-12-2024 End: 03-12-2024 Patient encounter procedure [facility] Gastroenterology Work Phone: Start: 03-09-2024 End: 03-09-2024 ambulatory Agnieszka Schafer Facility:[facility] Start: 03-09-2024 End: 03-09-2024 Patient encounter procedure Agnieszka Schafer [facility] Start: 02-17-2024 End: 02-17-2024 ambulatory HONORIO ROJAS Not Available Start: 01-30-2024 End: 01-30-2024 ambulatory RUGEN MABALAY AMBROSE Facility:[facility] Start: 01-30-2024 End: 01-30-2024 Nursing evaluation of patient and report Rafa Nurse Ervin Sand Work Phone: Hematology/Oncology Comment on above: Anemia, unspecified type (Primary Dx); 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 deficiency Start: 01-22-2024 Telephone encounter Maikel chapin MD Work Phone: Hematology/Oncology Start: 01-22-2024 End: 01-22-2024 ambulatory Rosa Shearer Facility:[facility] Start: 01-22-2024 End: 01-22-2024 Patient encounter procedure Rosa Shearer [facility] Start: 01-02-2024 End: 01-02-2024 ambulatory RUGEN DAVIDY AMBROSE Facility:[facility] Start: 01-02-2024 End: 01-02-2024 Nursing evaluation of patient and report Rafa Nurse Ervin Sand Work Phone: Hematology/Oncology Comment on above: Anemia, unspecified type (Primary Dx); 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 deficiency Start: 12-26-2023 End: 12-26-2023 ambulatory YULIA PRINCE Not Available Start: 12-10-2023 End: 12-10-2023 ambulatory YULIA Shaikh SURESH Not Available Start: 12-05-2023 End: 12-05-2023 Nursing evaluation of patient and report Rafa Nurse Ervin Sand Work Phone: Hematology/Oncology Comment on above: Anemia, unspecified type (Primary Dx); 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 deficiency Start: 12-05-2023 End: 12-05-2023 ambulatory RUGEN MABALAY AMBROSE Facility:[facility] Start: 11-07-2023 End: 11-07-[facility]23 [facility] Start: 11-07-2023 End: 11-07-2023 Nursing evaluation of patient and report Rafa Nurse Ervin Sand Work Phone: Hematology/Oncology Comment on above: Anemia, unspecified type (Primary Dx); 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 deficiency Start: 10-21-2023 End: 10-21-2023 ambulatory HONORIO Shaikh HEMMER Not Available Start: 10-11-2023 End: 10-11-2023 ambulatory Rosa Shearer Facility:[facility] Start: 10-11-2023 End: 10-11-2023 Patient encounter procedure Rosa Shearer [facility] Start: 10-10-2023 End: 10-10-2023 Nursing evaluation of patient and report Rafa Mueller Sand Work Phone: Hematology/Oncology Comment on above: Anemia, unspecified type (Primary Dx); 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 deficiency Start: 10-10-2023 End: 10-10-2023 ambulatory RUGEN MABALAY AMBROSE Facility:[facility] Start: 09-11-2023 End: 09-11-2023 [facility] Start: 09-05-2023 End: 09-05-2023 ambulatory RUGEN M AMBROSE Not Available Start: 08-05-2023 End: 08-05-2023 ambulatory HONORIO Shaikh HEMMER Not Available Start: 07-31-2023 End: 07-31-2023 Emergency department patient visit Rugen M Ambrose Facility:[facility] Start: 07-31-2023 End: 07-31-2023 Nursing evaluation of patient and report Rafa Nurse Ervin Sand Work Phone: Hematology/Oncology Comment on above: Anemia, unspecified type (Primary Dx); 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 deficiency; Tachycardia Start: 07-31-2023 Telephone encounter Macarena Figueroa Hematology/Oncology Comment on above: Syncope Start: 07-31-2023 End: 07-31-2023 ambulatory Rosa Shearer Facility:[facility] Start: 07-31-2023 End: 07-31-2023 Lab Drop off Rosa Shearer [facility] Start: 07-26-2023 End: 07-26-2023 ambulatory [facility] Start: 07-26-2023 End: 07-26-2023 Patient encounter procedure Rosa Shearer [facility] Start: 07-10-2023 End: 07-10-2023 ambulatory HONORIO ROJAS Not Available Start: 07-03-2023 End: 07-03-2023 Nutrition therapy Jyoti Shelton RD Work Phone: Nutrition Therapy Comment on above: Nutrition Assessment Start: 07-03-2023 End: 07-03-[address] Work Phone: [facility]NA[facility] Start: 07-03-2023 End: 07-03-2023 Nursing evaluation of patient and report Rafa Kennedy Work Phone: Hematology/Oncology Comment on above: Anemia, unspecified type (Primary Dx); 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 deficiency Start: 06-26-2023 End: 06-26-2023 ambulatory Rosa Shearer [facility] Start: 06-26-2023 End: 06-26-2023 Patient encounter procedure Rosa Shearer [facility] Start: 06-05-2023 End: 06-05-2023 Nursing evaluation of patient and report Rafa Kennedy Work Phone: Hematology/Oncology Comment on above: Anemia, unspecified type (Primary Dx); 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 deficiency Start: 06-05-2023 End: 06-05-2023 ambulatory NURYS BOGGS Facility:[facility] Start: 06-05-2023 End: 06-05-2023 Office outpatient visit 15 minutes Maikel Lunsford MD Work Phone: Hematology/Oncology Comment on above: 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 deficiency (Primary Dx); Anemia, unspecified type; Pancreatic insufficiency Start: 06-05-2023 End: 06-05-2023 ambulatory NURYS BOGGS Facility:[facility] Start: 04-05-2023 End: 04-05-2023 Nursing evaluation of patient and report Rafa Kennedy Work Phone: Hematology/Oncology Comment on above: Anemia, unspecified type (Primary Dx); 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 deficiency Start: 04-01-2023 Telephone encounter Maikel chapin MD Work Phone: Cancer [facility] Comment on above: Records Faxed To [facility] Start: 03-29-2023 End: 03-29-2023 Nursing evaluation of patient and report Rafa Kennedy Work Phone: Hematology/Oncology Comment on above: Anemia, unspecified type (Primary Dx); 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 deficiency Start: 03-26-2023 End: 03-26-2023 Patient encounter procedure Rosa Shearer [facility] Start: 03-22-2023 End: 03-22-2023 Nursing evaluation of patient and report Rafa Kennedy Work Phone: Hematology/Oncology Comment on above: Anemia, unspecified type (Primary Dx); 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 deficiency Start: 03-13-2023 End: 03-13-2023 Nursing evaluation of [...] vitamin B12 deficiency Start: 03-07-2023 End: 03-07-2023 Patient encounter procedure Rosajessica Herediametz [facility] Start: 02-22-2023 End: 02-22-2023 Patient encounter procedure Rosa A Manfred [facility] Start: 02-13-2023 End: 02-13-2023 Patient encounter procedure Rosa A Manfred [facility] Start: 01-25-2023 End: 01-25-2023 ambulatory Yvonne Mcghee Other [employer] Other Start: 01-25-2023 Office outpatient vi sit 15 minutes Yvonne Mcghee [facility] Start: 11-30-2022 End: 12-01-[address] HONORIO ROJAS Facility: Start: 11-22-2022 End: 11-22-2022 Patient encounter procedure Rosajessica Herediametz [facility] Start: 11-01-2022 End: 11-01-2022 Patient encounter procedure Rosajessica Herediametz [facility] Start: 10-16-2022 End: 10-16-2022 Patient encounter procedure Kimberley HAMEED [facility] Start: 10-10-2022 End: 10-10-2022 Patient encounter procedure Chu SALAM [facility] Start: 07-17-2022 End: 07-18-[address] HONORIO ROJAS Facility:[facility] Start: 07-14-2022 End: 07-15-[address] HONORIO ROJAS Facility:[facility] Start: 06-19-2022 End: 06-19-2022 Patient encounter procedure Rosa Shearer [facility] Start: 06-19-2022 End: 06-19-2022 Patient encounter procedure Rosa Shearer [facility] Start: 05-29-2022 End: 05-30-[address] NURYS BOGGS Facility:[facility] Start: 04-17-2022 End: 04-17-2022 Patient encounter procedure Chusarina HAMEED [facility] Start: 04-11-2022 End: 04-11-2022 Patient encounter procedure Chu MEKAAM [facility] Start: 03-16-2022 End: 03-16-2022 Patient encounter procedure Chu SALAM [facility] Start: 02-01-2022 End: 02-02-2022 ambulatory KIMBERLEY HAMEED Facility:[facility] Start: 01-25-2022 End: 01-25-2022 Patient encounter procedure Chu SALAM [facility] Procedures Date Procedure Procedure Detail Performing Clinician Start: 07-31-2023 Ecg routine ecg w/le ast 12 lds i&r only [facility] Provider Start: 05-16-2021 Colonoscopy Kimberley Shaikh Start: 11-25-2018 BREAST BIOPSY Kimberley ACKERMAN AM Start: 11-16-2015 Colonoscopy Ma Marcia Work Phone: Start: 08-26-1984 Ligation of fallopian tube Kimberley HAMEED Biopsy of breast Kimberley HAMEED Colonoscopy Kimberley HAMEED Hysterectomy Kimberley HAMEED Laparoscopic cholecystectomy Kimberley HAMEED Plan of Treatment Date Care Activity Detail Author Start: 2028 RSV Vaccine (1 - 1-d ose 75+ series) RSV Vaccine (1 - 1-dose 75+ series) [facility] Start: 03-23-2027 [facility] Start: 12-04-2026 [facility] Start: 09-11-2026 [facility] Start: 06-05-2026 [facility] Start: 03-13-2026 DIABETES SCREEN DIABETES SCREEN [facility] Start: 03-13-2026 [facility] Start: 09-07-2024 End: 09-07-2024 Follow-up encounter 09/07/2024 2:15 PM EST Visit (SP) Office Hematology/Oncology [address] [place] [place] [address] Maikel Lunsford MD [address] [place] [address] [place] [address] 6 month follow up with lab and B 12 inj Hematology/Oncology Comment on above: 6 month follow up wi th lab and B 12 inj Start: 09-07-2024 End: 09-07-2024 Patient encounter procedure 09/07/2024 2:00 PM EST Office Visit [facility] [address] [place] [address] 6 month follow up with lab and B 12 inj [facility] Comment on above: 6 month follow up wi th lab and B 12 inj Start: 08-10-2024 End: 08-10-2024 Nursing evaluation of patient and report 08/10/2024 2:00 PM EST Nurse Visit Hematology/Oncology [address] [place] [address] Rafa Kennedy Nurse Ervin [address] [place] [address] B 12 q 4 weeks Hematology/Oncology Comment on above: B 12 q 4 weeks Start: 07-13-2024 End: 07-13-2024 Nursing evaluation of patient and report 07/13/2024 2:00 PM EST Nurse Visit Hematology/Oncology [address] [place] [address] Rafa Kennedy Nurse Ervin [address] [place] [address] B 12 q 4 weeks Hematology/Oncology Comment on above: B 12 q 4 weeks Start: 06-15-2024 End: 06-15-2024 Nursing evaluation of patient and report 06/15/2024 2:15 PM EDT Nurse Visit Hematology/Oncology [address] [place] [address] Rafa Kennedy Nurse Ervin [address] [facility] [place] [address] B 12 q 4 weeks Hematology/Oncology Comment on above: B 12 q 4 weeks Start: 06-15-2024 End: 06-15-2024 Patient encounter procedure 06/15/2024 2:00 PM EDT [facility] Laboratory [address] [place] [address] B 12 q 4 weeks [facility] Comment on above: B 12 q 4 weeks Start: 05-18-2024 End: 05-18-2024 Nursing evaluation of patient and report 05/18/2024 2:00 PM EDT Nurse Visit Hematology/Oncology [address] [place] [address] Rafa Kennedy Nurse Ervin [address] [place] [address] B 12 q 4 weeks Hematology/Oncology Comment on above: B 12 q 4 weeks Start: 04-26-2024 Covid-19 Vaccine ( season) Covid-19 Vaccine ( season) [facility] Start: 04-26-2024 Influenza vaccination C [facility] Start: 04-20-2024 End: 04-20-2024 Nursing evaluation of patient and report 04/20/2024 2:00 PM EDT Nurse Visit Hematology/Oncology [address] [place] [place] [address] Rafa Kennedy Nurse Ervin [address] [place] [place] [address] B 12 q 4 weeks Hematology/Oncology Comment on above: B 12 q 4 weeks Start: 03-05-2024 End: 03-05-2024 Nursing evaluation of patient and report 03/05/2024 3:00 PM EDT Nurse Visit Hematology/Oncology [address] [place] [address] Rafa Kennedy Nurse Ervin [address] [place] [place] [address] 6 month follow up with lab and B 12 inj Hematology/Oncology Comment on above: 6 month follow up wi th lab and B 12 inj Start: 03-05-2024 End: 03-05-2024 Follow-up encounter 03/05/2024 2:45 PM EDT Visit (SP) Office Hematology/Oncology [address] [place] [address] Maikel Lunsford MD [address] [place] [place] [address] 6 month follow up with lab and B 12 inj Hematology/Oncology Comment on above: 6 month follow up wi th lab and B 12 inj Start: 03-05-2024 End: 03-05-2024 Patient encounter procedure 03/05/2024 2:30 PM EDT Office Visit [facility] [address] [place] [place] [address] 6 month follow up with lab and B 12 inj [facility] Comment on above: 6 month follow up wi th lab and B 12 inj Start: 01-30-2024 End: 01-30-2024 Nursing evaluation of patient and report Hematology/Oncology Comment on above: B-12 B-12- Start: 08-26-2023 Advance Directive Discussion Advance Directive Discussion [facility] Start: 08-26-2023 Behavioral Health Screening Behavioral Health Screening [facility] Start: 08-26-2023 Depression Assessment Depression Ass essment [facility] Start: 06-05-2023 End: 03-13-2024 CBC W Auto Differential panel - Blood CBC + DIFF Lab Routine Anemia, unspecified type 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 deficiency Expected: 06/05/2023 (Approximate), Expires: 03/13/2024 [facility] Work Phone: Comment on above: Expected: 06/05/2023 (Approximate), Expires: 03/13/2024 Start: 06-05-2023 End: 03-13-2024 Cobalamin (Vitamin B12) [Mass/volume] in Serum or Plasma VITAMIN B12 BLOOD Lab Routine Anemia, unspecified type 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 deficiency Expected: 06/05/2023 (Approximate), Expires: 03/13/2024 [facility] Work Phone: Comment on above: Expected: 06/05/2023 (Approximate), Expires: 03/13/2024 Start: 06-05-2023 End: 03-13-2024 Comprehensive metabolic 2000 panel - Serum or Plasma COMP METABOLIC PANEL Lab Routine Anemia, unspecified type 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 deficiency Expected: 06/05/2023 (Approximate), Expires: 03/13/2024 [facility] Work Phone: Comment on above: Expected: 06/05/2023 (Approximate), Expires: 03/13/2024 Start: 06-05-2023 End: 03-13-2024 Ferritin [Mass/volume] in Serum or Plasma FERRITIN BLD Lab Routine Anemia, unspecified type 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 deficiency Expected: 06/05/2023 (Approximate), Expires: 03/13/2024 [facility] Work Phone: Comment on above: Expected: 06/05/2023 (Approximate), Expires: 03/13/2024 Start: 06-05-2023 End: 03-13-2024 Folate [Mass/volume] in Serum or Plasma FOLATE SERUM Lab Routine Anemia, unspecified type 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 deficiency Expected: 06/05/2023 (Approximate), Expires: 03/13/2024 [facility] Work Phone: Comment on above: Expected: 06/05/2023 (Approximate), Expires: 03/13/2024 Start: 06-05-2023 End: 03-13-2024 Iron and Iron binding capacity panel - Serum or Plasma IRON + TIBC Lab Routine Anemia, unspecified type 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 deficiency Expected: 06/05/2023 (Approximate), Expires: 03/13/2024 [facility] Work Phone: Comment on above: Expected: 06/05/2023 (Approximate), Expires: 03/13/2024 Start: 05-29-2023 Screening for malign ant neoplasm of breast Mammogram Screening [facility] Start: 04-26-2023 Covid-19 Vaccine () Covid-19 Vaccine () [facility] Start: 04-26-2023 Influenza vaccination C [facility] Start: 08-26-2022 ADVANCE DIRECTIVE DISCUSSION ADVANCE DIRECTIVE DISCUSSION [facility] Start: 08-26-2022 DEPRESSION ASSESSMENT DEPRESSION ASS ESSMENT [facility] Start: 2018 BONE DENSITY BONE DENSITY [facility] Start: 2018 Bone Density Screening Bone Density Screening [facility] Start: 2018 Pneumococcal Vaccine : 65+ (1 of 1 - PCV) Pneumococcal Vaccine: 65+ (1 of 1 - PCV) [facility] Start: 2018 Screening for osteoporosis Bone Density Screening [facility] Start: 11-15-2016 Screening for malign ant neoplasm of colon [facility] Start: 08-23-2015 SHINGRIX VACCINE (2 of 3) SHINGRIX VACCINE (2 of 3) [facility] Start: 2013 RSV Vaccine (1 - 1-d ose 60+ series) RSV Vaccine (1 - 1-dose 60+ series) [facility] Start: 1998 COLOGUARD (FIT-DNA) COLOGUARD (FIT-D NA) [facility] Start: [address] [facility] Start: 1998 COLORECTAL CANCER SCREENING COLORECTAL CANCER SCREENING [facility] Start: [address] COLONOGRAPHY [facility] Start: 1998 FECAL OCCULT BLOOD FECAL OCCULT BLOO D [facility] Start: 1998 Lipid 1996 panel - S ajy or Plasma Lipid Screening [facility] Start: 1998 Lipid panel Lipid Screening [facility] Start: 1998 LIPID SCREEN LIPID SCREEN [facility] Start: 1998 Screening for malign ant neoplasm of colon [facility] Start: 1998 SIGMOIDOSCOPY SIGMOIDOSCOPY [facility] Start: [address] [facility] Start: 1993 Screening for malign ant neoplasm of breast Mammogram Screening [facility] Start: [address] [facility] Start: 1971 Anxiety Screening Anxiety Screening [facility] Start: 1971 Depression Screening Depression Scre ening [facility] Start: 1971 HEPATITIS C SCREENING HEPATITIS C [facility] Start: 1971 Hepatitis C screening Hepatitis C Sc [facility] Start: 1959 Pneumococcal Vaccine : 65+ (1 - PCV) Pneumococcal Vaccine: 65+ (1 - PCV) [facility] Start: 1959 Pneumococcal Vaccine : 65+ (1 of 2 - PCV) Pneumococcal Vaccine: 65+ (1 of 2 - PCV) [facility] Start: 1959 PNEUMOCOCCAL: 65+ (1 - PCV) PNEUMOCOCCAL: 65+ (1 - PCV) [facility] Start: 1953 COVID-19 VACCINE (#1) COVID-19 VACCI NE (#1) [facility] End: 06-04-2024 CBC W Auto Differential panel - Blood CBC + DIFF Lab Routine 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 deficiency Anemia, unspecified type Once per month for 12 Occurrences starting 06/05/2023 until 06/04/2024 [facility] Work Phone: Comment on above: Once per month for 1 2 Occurrences starting 06/05/2023 until 06/04/2024 End: 03-23-2025 CBC W Auto Differential panel - Blood COMPLETE BLOOD COUNT AND DIFFERENTIAL Lab Routine 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 deficiency Every 6 weeks for 9 Occurrences starting 03/23/2024 until 03/23/2025 [facility] Work Phone: Comment on above: Every 6 weeks for 9 Occurrences starting 03/23/2024 until 03/23/2025 End: 06-04-2024 Cobalamin (Vitamin B12) [Mass/volume] in Serum or Plasma VITAMIN B12 BLOOD Lab Routine 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 deficiency Anemia, unspecified type Once per month for 12 Occurrences starting 06/05/2023 until 06/04/2024 [facility] Work Phone: Comment on above: Once per month for 1 2 Occurrences starting 06/05/2023 until 06/04/2024 End: 03-23-2025 Cobalamin (Vitamin B12) [Mass/volume] in Serum or Plasma VITAMIN B12 Lab Routine 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 deficiency Every 6 weeks for 9 Occurrences starting 03/23/2024 until 03/23/2025 [facility] Comment on above: Every 6 weeks for 9 Occurrences starting 03/23/2024 until 03/23/2025 End: 06-04-2024 Comprehensive metabolic 2000 panel - Serum or Plasma COMP METABOLIC PANEL Lab Routine 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 deficiency Anemia, unspecified type Once per month for 12 Occurrences starting 06/05/2023 until 06/04/2024 [facility] Work Phone: Comment on above: Once per month for 1 2 Occurrences starting 06/05/2023 until 06/04/2024 End: 03-23-2025 Comprehensive metabolic 2000 panel - Serum or Plasma COMPREHENSIVE METABOLIC PANEL Lab Routine 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 deficiency Every 6 weeks for 9 Occurrences starting 03/23/2024 until 03/23/2025 [facility] Comment on above: Every 6 weeks for 9 Occurrences starting 03/23/2024 until 03/23/2025 ECG COMPLETE ECG COMPLETE ECG 07/31/2023 3:22 PM EST [facility] End: 06-04-2024 Ferritin [Mass/volume] in Serum or Plasma FERRITIN BLD Lab Routine 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 deficiency Anemia, unspecified type Once per month for 12 Occurrences starting 06/05/2023 until 06/04/2024 [facility] Work Phone: Comment on above: Once per month for 1 2 Occurrences starting 06/05/2023 until 06/04/2024 End: 03-23-2025 Ferritin [Mass/volume] in Serum or Plasma FERRITIN Lab Routine 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 deficiency Every 6 weeks for 9 Occurrences starting 03/23/2024 until 03/23/2025 [facility] Comment on above: Every 6 weeks for 9 Occurrences starting 03/23/2024 until 03/23/2025 End: 06-04-2024 Folate [Mass/volume] in Serum or Plasma FOLATE SERUM Lab Routine 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 deficiency Anemia, unspecified type Once per month for 12 Occurrences starting 06/05/2023 until 06/04/2024 [facility] Work Phone: Comment on above: Once per month for 1 2 Occurrences starting 06/05/2023 until 06/04/2024 End: 03-23-2025 Folate [Mass/volume] in Serum or Plasma FOLATE, SERUM Lab Routine 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 deficiency Every 6 weeks for 9 Occurrences starting 03/23/2024 until 03/23/2025 [facility] Comment on above: Every 6 weeks for 9 Occurrences starting 03/23/2024 until 03/23/2025 End: 06-04-2024 Iron and Iron binding capacity panel - Serum or Plasma IRON + TIBC Lab Routine 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 deficiency Anemia, unspecified type Once per month for 12 Occurrences starting 06/05/2023 until 06/04/2024 [facility] Work Phone: Comment on above: Once per month for 1 2 Occurrences starting 06/05/2023 until 06/04/2024 End: 03-23-2025 Iron and Iron binding capacity panel - Serum or Plasma IRON AND TIBC Lab Routine 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 deficiency Every 6 weeks for 9 Occurrences starting 03/23/2024 until 03/23/2025 [facility] Comment on above: Every 6 weeks for 9 Occurrences starting 03/23/2024 until 03/23/2025 [facility] Immunizations Immunization Date Immunization Notes Care Provider Fa cili 06-28-2015 zoster vaccine, live Kimberley SANON [facility] NEGATED: Highlighted row has not occurred!10-10-2023 influenza virus vaccine, unspecified formulation Rosa Shearer [facility] NEGATED: Highlighted row has not occurred!07-25-2023 influenza virus vaccine, unspecified formulation Rosa Shearer [facility] NEGATED: Highlighted row has not occurred!06-25-2023 influenza virus vaccine, unspecified formulation Rosa Shearer [facility] NEGATED: Highlighted row has not occurred!11-22-2022 influenza virus vaccine, unspecified formulation Rosa Shearer [facility] NEGATED: Highlighted row has not occurred!06-19-2022 influenza virus vaccine, unspecified formulation Rosa Shearer [facility] NEGATED: Highlighted row has not occurred!04-17-2022 influenza virus vaccine, unspecified formulation Kimberley HAMEED [facility] Payers Date Payer Category Payer Self-pay 2021 Unknown MMO MMO MEDICARE SUPPLEMENT [id number] 2021-Present [phone] [address] [place] [address] Indemnity [id number] 2018 Medicare MEDICARE MEDICAR E A AND B [id number] 2018-Present [phone] [address] [address] [place] [address] Medicare [id number] 1959 Medicare [id number] 1959 Unknown [id number] 1953 Unknown [id number] 2.16.840.1.365656.3.579.2.593 1953 Unknown [id number] 2.16.840.1.674351.3.579.2.593 1953 Unknown [id number] 2.16.840.1.767114.3.579.2.593 1953 Unknown [id number] 2.16.840.1.265822.3.579.2.593 1953 Unknown [id number] 2.16.840.1.606150.3.579.2.593 1953 Unknown [id number] 2.16.840.1.241779.3.579.2.727 1953 Unknown [id number] 2.16.840.1.382370.3.579.2.727 1953 Unknown [id number] 2.16.840.1.230059.3.579.2.727 1953 Unknown [id number] 2.16.840.1.513226.3.579.2.727 1953 Unknown [id number] 2.16.840.1.953488.3.579.2.727 1953 Unknown [id number] 2.16.840.1.926685.3.579.2.727 1953 Unknown [id number] 2.16.840.1.156177.3.579.2.727 1953 Unknown [id number] 2.16.840.1.208474.3.579.2.727 1953 Unknown [id number] 2.16.840.1.586603.3.579.2.1259 1953 Unknown [id number] 2.16.840.1.105890.3.579.2.9 1953 Unknown [id number] 2.16.840.1.264153.3.579.2.1258 1953 Unknown [id number] 2.16.840.1.761338.3.579.2.1258 1953 Unknown [id number] 2.16.840.1.382256.3.579.2.1258 1953 Unknown [id number] 2.16.840.1.398870.3.579.2.1258 1953 Unknown [id number] 2.16.840.1.573359.3.579.2.1258 1953 Unknown [id number] 2.16.840.1.709459.3.579.2.1258 1953 Unknown [id number] 2.16.840.1.002041.3.579.2.125 Unknown [id number] 2.16.840.1.996747.3.579.2.531 Unknown [facility] [id number] Social History Date Type Detail Facility Start: 01-25-2022 End: 10-11-2023 Heavy tobacco smoker (finding) [facility] Comment on above: has quit off and on during those 30 years has quit off and on during those 30 years Start: 06-11-2019 End: 03-13-2023 Female [facility] Tobacco smoking status Never [facility] Comment on above: has quit off and on during those 30 years Start: 03-13-2023 Tobacco smoking stat us NHIS Smokes tobacco daily [facility] History of tobacco use Passive smoker [facility] Start: 03-13-2023 End: 03-23-2024 Tobacco use and exposure Smokeless tobacco non-user [facility] Start: 03-13-2023 End: 03-23-2024 Alcohol intake Ex-drinker (finding) [facility] Start: 06-11-2019 End: 03-13-2023 History of [address] [facility] Start: 03-13-2023 [facility] Start: 11-07-2018 Alcohol Comment socially [facility] Start: 1955 Sex Assigned At Not on file C [facility] Start: 07-31-2023 Tobacco smoking stat [facility] Current some day smoker [facility] Start: 1955 Sex Assigned At Female F [facility] Start: 03-23-2024 End: 04-06-2024 Tobacco smoking status MNIS Ex-smoker [facility] History of tobacco use Current smoker [facility] History of tobacco use Cigarette Smoker C [facility] Functional Status Date Assessment Result Facility 04-06-2024 Functional Status N/A [facility] 10-11-2023 Functional Status N/A [facility] 07-26-2023 Functional Status N/A [facility] 06-26-2023 Functional Status N/A [facility] 03-26-2023 Functional Status N/A [facility] 02-22-2023 Functional Status N/A [facility] 11-22-2022 Functional Status N/A [facility] 10-10-2022 Functional Status N/A [facility] 06-19-2022 Functional Status N/A [facility] 04-17-2022 Functional Status N/A [facility] Clinical Notes 12-01-2021 to 05-18-2024 Oniel Prescott MA - 05/18/2024 1:52 PM Oniel Hernandez MA - 05/18/2024 1:52 PM Oniel Hernandez MA - 04/20/2024 2:18 PM Oniel Hernandez MA - 04/20/2024 2:18 PM EDTPatient Instructions Note Date & Type Note Facility 05-18-2024 Nurse Note Patient Identification confirmed: yes. Injection given and documented on MAR per provider order. Oniel Prescott MA [facility] 05-18-2024 Nurse Note Patient Identification confirmed: yes. Injection given and documented on MAR per provider order. Oniel Prescott MA documented in this encounter [facility] 04-20-2024 Nurse Note Patient Identification confirmed: yes. Injection given and documented on MAR per provider order. Oniel Prescott MA [facility] 04-20-2024 Nurse Note Patient Identification confirmed: yes. Injection given and documented on MAR per provider order. Oniel Prescott MA documented in this encounter [facility] 03-23-2024 Instructions Deborah Dick - 03/23/2024 2:39 PM EDT B12 shot today and q 4 weeks Repeat labs q 12 weeks RTC in 24 weeks documented in this encounter [facility] 03-23-2024 History of Presen t illness Narrative Images from the original note were not included. NAME: Ivonne Cespedes CLINIC NO.: [id number] DATE OF SERVICE: March 23, 2024 (Martín) Some elements in this clinic note that are critical to medical decision making have been carefully reviewed and included from a prior clinic note dated: September 11, 2023 (Martín) Referring Provider: Rosa Shearer Additional [...] every month. PLAN: B12 shot today and q 4 weeks Repeat labs q 12 weeks RTC in 24 weeks HPI: CASE HISTORY: Reverse Chronological Order 06/06/2023 - Mammogram: Category 2 benign 02/13/2023 - B12 level 144 11/01/2022 - CBC 5.7 > 13.5/41.6 < 218 normal differential. March 2022 FibroScan F0-F1 no steatosis. 01/2022 - CT A/P at [facility] hepatomegaly with hepatic steatosis. 06/2021 - CT A/P right retrocrural lymph node. November 25, [address] 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 10/27/2018 - Biopsy showed ductal carcinoma in situ high nuclear grade. The estrogen receptor was positive at 10-20% with progesterone receptor negative DCIS Right Breast - [facility] 10/22/2018 - Mammogram showing suspicious changes in the right breast. grouping of numerous pleomorphic calcifications within the posterior upper inner quadrant. Updated Visit, March 23, 2024: Ivonne returns today. She remains fatigued with monthly B12 injections. She mentions she does not sleep long at night and wonders if it is related to her smoking cessation. She is not anemic, iron studies are pending. Updated Visit, September 11, 2023: Ivonne returns today for a 12 week follow up. Her labs all look good today. She was hospitalized recently after her BP was low, she was told she has fatigue but her PCP reported the issue was her thyroid. She would like to try taking a magnesium supplement. Updated Visit, June 05, 2023: Mammogram done in [place] yesterday Was told she has pancreatic insufficiency B12 levels remain low. Initial Visit, March 13, 2023: Ivonne Cespedes presents today Hematology and Oncology evaluation. 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 [...] PERFORMANCE STATUS: 0 PHYSICAL EXAMINATION: Vitals: BP 145/84 Pulse 74 Temp (Src) 97.2 (Temporal) Resp 16 Ht 5' 0 (1.52m) Wt 122 lb 9.2 oz (55.6kg) SpO2 97% BMI 23.94 kg/(m^2). Body surface area is 1.53 meters squared. Exam limited to gross visualization [...] petechiae. Resolving shingles rash on right abdomen. Prior exam for reference: Chaperoned Breast Exam September 11, 2023 (Red [...] (IMODIUM) 2 mg cap(s) every other day. sertraline (ZOLOFT) 50 mg tablet Take 50 mg by mouth once daily. calcium carbonate (CALCIUM 500 ORAL) Take by mouth. Cholecalciferol, Vitamin D3, (VITAMIN D) 1,000 unit cap Take 1,000 Units by mouth once daily. LABORATORY VALUES: WBC (k/uL) Date Value 03/23/2024 6.57 RBC (m/uL) Date Value 03/23/2024 4.58 Hemoglobin (g/dL) Date Value 03/23/2024 12.7 Hematocrit (%) Date Value 03/23/2024 40.2 MCV (fL) Date Value 03/23/2024 87.8 MCH (pg) Date Value 03/23/2024 27.7 MCHC (g/dL) Date Value 03/23/2024 31.6 RDW-CV (%) Date Value 03/23/2024 15.1 (H) Platelet Count (k/uL) Date Value 03/23/2024 196 MPV (fL) Date Value 03/23/2024 9.5 Glucose (mg/dL) Date Value 03/23/2024 115 (H) BUN (mg/dL) Date Value 03/23/2024 11 Creatinine (mg/dL) Date Value 03/23/2024 0.66 Sodium (mmol/L) Date Value 03/23/2024 140 Potassium (mmol/L) Date Value 03/23/2024 4.0 Chloride (mmol/L) Date Value 03/23/2024 104 CO2 (mmol/L) Date Value 03/23/2024 26 Protein, Total (g/dL) Date Value 03/23/2024 7.6 Albumin (g/dL) Date Value 03/23/2024 4.2 Calcium, Total (mg/dL) Date Value 03/23/2024 9.8 Alkaline Phosphatase (U/L) Date Value 03/23/2024 76 Bilirubin, Total (mg/dL) Date Value 03/23/2024 0.3 AST (U/L) Date Value 03/23/2024 21 ALT (U/L) Date Value 03/23/2024 14 DIAGNOSIS: (D53.1) 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 deficiency (primary encounter diagnosis) Plan: COMPLETE BLOOD COUNT AND DIFFERENTIAL, COMPREHENSIVE METABOLIC PANEL, IRON AND TIBC, FERRITIN, VITAMIN B12, FOLATE, SERUM PAST MEDICAL HISTORY Diagnosis Date Arthritis B12 deficiency Chronic diarrhea Colon polyp COPD (chronic obstructive pulmonary disease) (HCC) Diverticular disease of colon Diverticulitis Ductal carcinoma in situ of breast Encounter for cholecystectomy Fatty liver Hematuria IBS (irritable bowel syndrome) Thyroid disease PAST SURGICAL HISTORY Procedure Laterality Date BACK SURGERY HX 2020 BREAST BX US GUIDED 10/27/2018 CHOLECYSTECTOMY HX 2012 COLONOSCOPY diverticulosis EGD 2012 HYSTERECTOMY HX 2007 Social History Tobacco Use Smoking status: Former Types: Cigarettes Passive exposure: Current Smokeless tobacco: Never Tobacco comments: vapes Substance Use Topics Alcohol use: Not Currently Comment: socially Drug use: Never FAMILY HISTORY Problem Relation Age of Onset Diabetes Mother Heart disease Mother Emphysema Father I spent a total of 20 minutes on the date of the service which included preparing to see the patient, [id number] patient care, completing clinical documentation, obtaining and/or reviewing separately obtained history, performing a medically appropriate examination, counseling and educating the patient/family/caregiver, ordering medications, tests, or procedures, independently interpreting results (not separately reported), and communicating results to the patient/family/caregiver. Maikel Lunsford MD, CPE Hematology and Oncology Services Provided at: [place], [place] Scribe Attestation: This note was scribed by Deborah Dick on March 23, 2024 under the direction and supervision of Dr. Maikel Lunsford. I attest that all of the information documented is correct to the best of my knowledge. Provider Attestation: I, Maikel Lunsford MD, attest that all information documented by the above scribe is correct, and was supervised by me and under my direction. CC: Rosa Shearer [address] [facility] [address] [address] [facility] [address] [facility] [address] documented in this encounter [facility] 03-23-2024 Note HNO ID: [id number] Author: MAIKEL LUNSFORD MD Service: ? Author Type: Physician Type: Progress Notes Filed: 03/23/2024 20:37 Note Text: NAME: Ivonne Cespedes [facility] NO.: [id number] DATE OF SERVICE: March 23, 2024 (Martín) Some elements in this clinic note that are critical to medical decision making have been carefully reviewed and included from a prior clinic note dated: September 11, 2023 (Martín) Referring Provider: Rosa Shearer Additional [...] every month. PLAN: B12 shot today and q 4 weeks Repeat labs q 12 weeks RTC in 24 weeks HPI: CASE HISTORY: Reverse Chronological Order 06/06/2023 - Mammogram: Category 2 benign 02/13/2023 - B12 level 144 11/01/2022 - CBC 5.7 > 13.5/41.6 < 218 normal differential. March 2022 FibroScan F0-F1 no steatosis. 01/2022 - CT A/P at [facility] hepatomegaly with hepatic steatosis. 06/2021 - CT A/P right retrocrural lymph node. November 25, [address] 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 10/27/2018 - Biopsy showed ductal carcinoma in situ high nuclear grade. The estrogen receptor was positive at 10-20% with progesterone receptor negative DCIS Right Breast - [facility] 10/22/2018 - Mammogram showing suspicious changes in the right breast. grouping of numerous pleomorphic calcifications within the posterior upper inner quadrant. Updated Visit, March 23, 2024: Ivonne returns today. She remains fatigued with monthly B12 injections. She mentions she does not sleep long at night and wonders if it is related to her smoking cessation. She is not anemic, iron studies are pending. Updated Visit, September 11, 2023: Ivonne returns today for a 12 week follow up. Her labs all look good today. She was hospitalized recently after her BP was low, she was told she has fatigue but her PCP reported the issue was her thyroid. She would like to try taking a magnesium supplement. Updated Visit, June 05, 2023: Mammogram done in [place] yesterday Was told she has pancreatic insufficiency B12 levels remain low. Initial Visit, March 13, 2023: Ivonne Cespedes presents today Hematology and Oncology evaluation. 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 [...] PERFORMANCE STATUS: 0 PHYSICAL EXAMINATION: Vitals: BP 145/84 Pulse 74 Temp (Src) 97.2 (Temporal) Resp 16 Ht 5' 0 (1.52m) Wt 122 lb 9.2 oz (55.6kg) SpO2 97% BMI 23.94 kg/(m2). Body surface area is 1.53 meters squared. Exam limited to gross visualization [...] petechiae. Resolving shingles rash on right abdomen. Prior exam for reference: Chaperoned Breast Exam September 11, 2023 ([facility]) : Right breast: scar 1 o'clock - well healed, no sign of recurrence, red mole on nipple. Left breast is normal. Rosa exam is negative bilaterally. ALLERGIES: ALLERGIES Allergen Reactions Bupropion Shortness of Breath Zyban [Bupropion Hc* Shortness (more content not included)... [facility] 03-23-2024 Nurse Note Patient states she seems to be more tired lately, she also states she quit smoking. Desirae Sargent MA [facility] 03-23-2024 Nurse Note Patient states she seems to be more tired lately, she also states she quit smoking. Desirae Sargent MA documented in this encounter [facility] 01-30-2024 Nurse Note Patient Identification confirmed: yes. Injection given and documented on OCT per provider order. Desirae Sargent MA [facility] 01-30-2024 Nurse Note Patient Identification confirmed: yes. Injection given and documented on MAR per provider order. Desirae Sargent MA documented in this encounter [facility] 01-22-2024 Telephone encounter Note Please sign B12 order for 01/30/24, Thanks. Desirae Sargent MA [facility] 01-22-2024 Miscellaneous Notes Please sign B12 order for 01/30/24, Thanks. Desirae Sargent MA documented in this encounter [facility] 01-02-2024 Nurse Note Patient Identification confirmed: yes. Injection given and documented on MAR per provider order. Shirley Pierre MA [facility] 12-05-2023 Nurse Note Patient Identification confirmed: yes. Injection given and documented on MAR per provider order. Pepe Yadav MA documented in this encounter [facility] 11-25-2023 Nurse Note Patient Identification confirmed: yes. Injection given and documented on MAR per provider order. Shirley Pierre MA documented in this encounter [facility] 11-07-2023 Nurse Note Patient Identification confirmed: yes. Injection given and documented on MAR per provider order. Pepe Yadav documented in this encounter [facility] 10-11-2023 Hospital Discharg e instructions Patient Education [...] cholesterol. Other causes: Alcohol abuse. Poor nutrition. Chimayo syndrome. . Certain drugs. Poisons. Some viral [...] which activities are best for you. Take ilod-jjs-lytpoka and prescription medicines only as told by [...] provider. Document Revised: 05/25/2021 Document Reviewed: 05/25/2021 [employer] Patient Education 2022 InflaRx. Follow Up Care 07/26/2023 14:28:34 With:Rosa Shearer CNP Address: When:6 months [facility] 10-10-2023 Nurse Note Patient Identification confirmed: yes. Injection given and documented on OCT per provider order. Oniel Prescott Ma documented in this encounter [facility] 09-11-2023 Note HNO ID: [id number] Author: MAIKEL LUNSFORD MD Service: ? Author Type: Physician Type: Progress Notes Filed: 09/11/2023 20:29 Note Text: NAME: Ivonne Cespedes CLINIC NO.: [id number] DATE OF SERVICE: September 11, 2023 (Martín) [...] 01/2022 - CT scan abdomen pelvis at [facility] hepatomegaly with hepatic steatosis. 06/2021 - CT abdomen pelvis right retrocrural lymph node. November 25, [address] 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 The estrogen receptor was positive at 10-20% with progesterone receptor negative DCIS Right Breast - [facility] 10/22/2018 - mammogram showing suspicious changes in [...] Visit, June 05, 2023: Mammogram done in [place] yesterday Was told she has pancreatic insufficiency B12 levels remain low. Initial Visit, March 13, 2023: Ivonne Cespedes presents today Hematology and Oncology evaluation. 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 [...] (IMODIUM) 2 mg (more content not included)... [facility] 07-31-2023 Miscellaneous Notes Thank you for documenting [...] 2L NC. Pt dc'd via EMS. Macarena Urrutia, RN documented in this encounter [facility] 07-31-2023 Nurse Note EKG performed as ordered. Electronically sent to [facility] main. Placed paper copy in scan folder. Pepe Yadav Patient came in for a b-12. Patient blood pressure low. Repeated. Pulse high. Patient complaining of lightheadedness,dizzy, and fatigue. Got Dr. Maikel Lunsford. Did an EKG while someone called 911. Pepe Yadav documented in this encounter [facility] 07-26-2023 Hospital Discharg e instructions Patient Education [...] Bulgur wheat. Millet. Quinoa. Bran muffins. Popcorn. [place] wafer crackers. Meats and other proteins [place] beans, kidney beans, and foss beans. Soybeans. [...] Cream cheese. Sour cream. Fats and oils T[place]en. Beverages Soft drinks. Other foods Cakes and [...] provider. Document Revised: 12/15/2020 Document Reviewed: 12/15/2020 [employer] Patient Education 2022 InflaRx. Follow Up Care 06/26/2023 13:14:25 With:Rosa Shearer CNP Address: When:1 month [facility] 07-03-2023 Note Education (NUTRSA) IVONNE CESPEDES ([id number]) 1955 F Date Time Provider Department 07/03/23 3:00 PM JYOTI SHELTON Reason for Visit: Nutrition Assessment [1591] Primary Visit Diagnosis: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 deficiency [D53.1] Other Visit Diagnosis:Pancreatic insufficiency [K86.89] Order(s):CONSULT TO ONCOLOGY NUTRITION [0949938] Order #: [id number]: 1 During your visit today, we recorded the following information about you: Allergies As of Date: 07/03/2023 Noted Allergy Reaction BUPROPION 12/22/2004 12 - Shortness of Breath ZYBAN (BUPROPION HCL (SMOKING DET*11/07/2018 12 - Shortness of Breath Date Reviewed: 07/03/2023 Reviewed by: Jyoti Shelton RD - Fully Assessed Prescriptions as of [...] for Encounter Date Provider Department Center 07/03/2023 [id number] SHELTON TEAN MALAVE Encounter Status:Closed by JYOTI SHELTON on 07/03/23 [facility] 07-03-2023 Note HNO ID: [id number] Author: Jyoti Shelton RD Service: ? Author [...] Pt states she follows with GI in [place], [place]. Previous records available reviewed with pt [...] Dosing Weight: 53.3 kg Estimated kilocalorie needs: 7023-0342 kilocalories determined by 25-30 kcal/kg Estimated protein needs: 53-69 grams determined by 1.0-1.3 g/kg Dosing weight Estimated fluid needs: ~5941-3310 milliliters based on 1 mL per kcal [...] Signed by: Jyoti Shelton MS, RDN, LD [facility] 07-03-2023 History of Presen t illness Narrative [...] Pt states she follows with GI in [place], [place]. Previous records available reviewed with pt [...] Dosing Weight: 53.3 kg Estimated kilocalorie needs: 5065-9805 kilocalories determined by 25-30 kcal/kg Estimated protein needs: 53-69 grams determined by 1.0-1.3 g/kg Dosing weight Estimated fluid needs: ~7951-6749 milliliters based on 1 mL per kcal [...] MS, RDN, LD documented in this encounter [facility] 07-03-2023 Note HNO ID: [id number] Author: Carri Walker Service: ? Author Type: ? Type: Progress Notes Filed: 07/03/2023 2:04 PM Note Text: Patient Identification confirmed: yes. Injection given and documented on MAR per provider order. Carri Walker [facility] 07-03-2023 History of Presen t illness Narrative Patient Identification confirmed: yes. Injection given and documented on MAR per provider order. Carri Walker documented in this encounter [facility] 06-26-2023 Hospital Discharg e instructions Patient Education [...] hard liquor (44 mL). General instructions Take iikx-gcw-dccjnwy and prescription medicines only as told by [...] provider. Document Revised: 11/30/2020 Document Reviewed: 11/30/2020 [employer] Patient Education 2022 [employer] Follow Up Care 03/26/2023 13:13:41 With:Rosa Shearer CNP Address: When:1 month [facility] 06-05-2023 Instructions Maikel Lunsford MD - 06/05/2023 2:58 PM EDT B12 shot today and then every 4 weeks RTC in 12 weeks and repeat labs. Exam same day. Obtain mammography from [facility] Consult Data Collector for help with pancreatic insufficiency (Dr. Hameed) documented in this encounter [facility] 06-05-2023 Nurse Note Digestive Doctor in [place] was told she did not have enough pancreatic enzymes, they told her that if she takes Vitamins it won't help. If she needs to do B12 injections again will it even work due to pancreatic issues? Desirae Sargent MA documented in this encounter [facility] 06-05-2023 History of Presen t illness Narrative Images from the original note were not included. NAME: Ivonne Cespedes CLINIC NO.: [id number] DATE OF SERVICE: June 05, 2023 (Martín) Some elements in this clinic note that are critical to medical decision making have been carefully reviewed and included from a prior clinic note dated: March 13, 2023 (Martín) Referring Provider: Rosa Shearer Additional Clinicians involved in Ivonne Santos Cespedes's care: DIAGNOSIS: B12 deficiency History of [...] labs. Exam same day. Obtain mammography from [facility] Consult Data Collector for help with pancreatic insufficiency (Dr. Hameed) HPI: CASE HISTORY: Reverse Chronological Order 02/13/2023 B12 level 144 11/01/2022 CBC 5.7 > 13.5/41.6 < 218 normal differential. March 2022 FibroScan F0-F1 no steatosis. January 2022 CT scan abdomen pelvis at [facility] hepatomegaly with hepatic steatosis. June 2021 CT abdomen pelvis right retrocrural lymph node. November 25, [address] 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 October 27, 2018 biopsy showed ductal carcinoma in situ high nuclear grade. The estrogen receptor was positive at 10-20% with progesterone receptor negative DCIS Right Breast - [facility] October 22, 2018 mammogram showing suspicious changes in the right breast. grouping of numerous pleomorphic calcifications within the posterior upper inner quadrant. Updated Visit, June 05, 2023: Mammogram done in [place] yesterday Was told she has pancreatic insufficiency B12 levels remain low. Initial Visit, March 13, 2023: Ivonne Cespedes presents today Hematology and Oncology evaluation. 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 [...] which included preparing to see the patient, rcpe-dj-oeme patient care, completing clinical documentation, obtaining and/or reviewing separately obtained history, performing a medically appropriate examination, counseling and educating the patient/family/caregiver, ordering medications, tests, or procedures, independently interpreting results (not separately reported), and communicating results to the patient/family/caregiver. Maikel Lunsford MD, CPE Hematology and Oncology Services Provided at: [place], [place] CC: Rosa Shearer [address] [facility] [address] [address] [facility] [address] [facility] [address] [address] encounter [facility] 06-05-2023 Note HNO ID: [id number] Author: Maikel Lunsford MD Service: ? Author Type: Physician Type: Progress Notes Filed: 06/09/2023 3:35 PM Note Text: NAME: Ivonne Cespedes CLINIC NO.: [id number] DATE OF SERVICE: June 05, 2023 (Martín) [...] labs. Exam same day. Obtain mammography from [facility] Consult Data Collector for help with pancreatic insufficiency (Dr. Hameed) HPI: CASE HISTORY: Reverse Chronological Order 02/13/2023 B12 level 144 11/01/2022 CBC 5.7 > 13.5/41.6 < 218 normal differential. March 2022 FibroScan F0-F1 no steatosis. January 2022 CT scan abdomen pelvis at [facility] hepatomegaly with hepatic steatosis. June 2021 CT abdomen pelvis right retrocrural lymph node. November 25, [address] 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 October 27, 2018 biopsy showed ductal carcinoma in situ high nuclear grade. The estrogen receptor was positive at 10-20% with progesterone receptor negative DCIS Right Breast - [facility] October 22, 2018 mammogram showing suspicious changes in the right breast. grouping of numerous pleomorphic calcifications within the posterior upper inner quadrant. Updated Visit, June 05, 2023: Mammogram done in [place] yesterday Was told she has pancreatic insufficiency B12 levels remain low. Initial Visit, March 13, 2023: Ivonne Cespedes presents today Hematology and Oncology evaluation. 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 [...] RBC (m/uL) Date (more content not included)... [facility] 04-05-2023 Nurse Note Patient Identification confirmed: yes. Injection given and documented on OCT per provider order. Desirae Sargent MA documented in this encounter [facility] 04-01-2023 Miscellaneous Notes Received call from [facility] office. Requesting us to fax Dr CHANDRA office note from 03/13 to their office @ [phone]. Dr CHANDRA office note from 03/13/23 faxed to [phone]. Dede Kwong documented in this encounter [facility] 03-29-2023 Nurse Note Patient Identification confirmed: yes. Injection given and documented on OCT per provider order. Desirae Sargent MA documented in this encounter [facility] 03-26-2023 Hospital Discharg e instructions Patient Education [...] hard liquor (44 mL). General instructions Take bilf-uzg-zevftwy and prescription medicines only as told by [...] provider. Document Revised: 11/30/2020 Document Reviewed: 11/30/2020 [employer] Patient Education 2022 [employer]aRx. Follow Up Care 02/22/2023 12:55:30 With:Rosa Shearer CNP Address: When:3 months [facility] 03-22-2023 Nurse Note Patient Identification confirmed: yes. Injection given and documented on MAR per provider order. Desirae Sargent MA documented in this encounter [facility] 03-13-2023 Nurse Note Patient Identification confirmed: yes. Injection given and documented on MAR per provider order. Pepe Yadav documented in this encounter [facility] 03-13-2023 Instructions Maikel Lunsford MD - 03/13/2023 12:03 PM EDT Labs today please B12 shot after labs today and then weekly x 4 then every 4 weeks RTC in 12 weeks and repeat labs. documented in this encounter [facility] 03-13-2023 History of Presen t illness Narrative Images from the original note were not included. NAME: Ivonne Cespedes [facility] NO.: [id number] DATE OF SERVICE: March 13, 2023 (Martín) [...] January 2022 CT scan abdomen pelvis at [facility] hepatomegaly with hepatic steatosis. June 2021 CT abdomen pelvis right retrocrural lymph node. November 25, [address] 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 October 27, 2018 biopsy showed ductal carcinoma in situ high nuclear grade. The estrogen receptor was positive at 10-20% with progesterone receptor negative DCIS Right Breast - [facility] October 22, 2018 mammogram showing suspicious changes in the right breast. grouping of numerous pleomorphic calcifications within the posterior upper inner quadrant. Initial Visit, March 13, 2023: Ivonne Cespedes presents today Hematology and Oncology evaluation. 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 [...] which included preparing to see the patient, wdsi-va-lovx patient care, completing clinical documentation, obtaining and/or reviewing separately obtained history, performing a medically appropriate examination, counseling and educating the patient/family/caregiver, ordering medications, tests, or procedures, independently interpreting results (not separately reported), and communicating results to the patient/family/caregiver. Maikel Lunsford MD, CPE Hematology and Oncology Services Provided at: [place], [place] CC: Rosa Shearer [address] [facility] [address] [address] [facility] [address] [facility] [address] [address] encounter [facility] 03-13-2023 Nurse Note Patient states that her pancreatic enzymes have been off they prescribed Creon but was to expensive, she did buy an over the counter Pancreatic supplement but not sure if that has helped. Patient also has been seeing Dr. Tejeda in [place] due to digestive issues, cramping in lower abdomin they cannot figure out why. Desirae Sargent MA documented in this encounter [facility] 02-22-2023 Hospital Discharg e instructions Patient Education [...] cholesterol. Other causes: Alcohol abuse. Poor nutrition. Chimayo syndrome. . Certain drugs. Poisons. Some viral [...] which activities are best for you. Take xpnw-tzi-jfbktva and prescription medicines only as told by [...] provider. Document Revised: 05/25/2021 Document Reviewed: 05/25/2021 [employer] Patient Education 2022 InflaRx. Follow Up Care 11/22/2022 13:36:40 With:Rosa Shearer CNP Address: When:1 month [facility] 01-25-2023 Evaluation note Encounter [...] understanding and is agreeable to treatment plan. [employer] Other 04-11-2023 Nurse Note* Ignacio November - 06/05/2023 3:23 PM EDT Patient Identification confirmed: yes. Injection given and documented on OCT per provider order. Shirley Pierre [facility] Discharge instructions Patient Education 11/22/2022 13:32:05 [...] Drinking too much alcohol. Poor nutrition. Obesity. Breanne's syndrome. Diabetes. High cholesterol. Certain drugs. Poisons. [...] provider about working with a diet and application development specialist (dietitian) to develop an eating plan. Exercise regularly. This can help you lose weight and control your cholesterol and diabetes. Talk to your health care provider about an exercise plan and which activities are best for you. Take gwbg-yrk-osytvov and prescription medicines only as told by [...] 09/27/2006 Document Revised: 07/25/2018 Document Reviewed: 05/21/2018 [employer] Patient Education 2019 InflaRx. Follow Up Care 11/01/2022 08:42:19 With:Rosa Shearer CNP Address: When:3 months [facility] 11-01-2022 Evaluation + Plan note Future Scheduled Tests Laboratory* Vitamin E Level 06/26/22 * Vitamin A Level 06/26/22 * Vitamin D 25 Hydroxy 06/26/22 * Vitamin B12 Level 06/26/22 [facility]10-25-2022 Hospital Discharge instructions Patient Education 06/19/2022 12:46:40 [...] your health care provider and diet and application development specialist (dietitian) to find the eating plan that [...] care provider if you should take an fzil-dqw-dsmvsls probiotic to help restore healthy bacteria in [...] your symptoms worse: Fatty foods, such as gabonese fries. Foods that contain gluten, such as [...] Foundation for Functional Gastrointestinal Disorders: www.iffgd.org National Pace of Diabetes and Digestive and Kidney Diseases: [...] Your health care provider or diet and application development specialist (dietitian) may recommend that you eat more foods that contain fiber. This information is not intended to replace advice given to you by your health care provider. Make sure you discuss any questions you have with your health care provider. Document Released: 11/01/2004 Document Revised: 12/02/2019 Document Reviewed: 04/15/2018 [employer] Patient Education 2020 InflaRx. 06/19/2022 12:46:38 Fatty Liver Disease Fatty Liver [...] Drinking too much alcohol. Poor nutrition. Obesity. Breanne's syndrome. Diabetes. High cholesterol. Certain drugs. Poisons. [...] provider about working with a diet and application development specialist (dietitian) to develop an eating plan. Exercise regularly. This can help you lose weight and control your cholesterol and diabetes. Talk to your health care provider about an exercise plan and which activities are best for you. Take yvmb-wvh-otdzbdn and prescription medicines only as told by [...] 09/27/2006 Document Revised: 07/25/2018 Document Reviewed: 05/21/2018 [employer] Patient Education 2020 [employer]aRx. Follow Up Care 04/17/2022 13:08:53 With:Rosa Shearer CNP Address: When:1 month [facility] 04-08-2022 Hospital Discharge instructions Follow Up Care 12/01/2021 15:26:08 With:JOSUÉ SOMMERS, NIR Chu, [facility] Address: [facility] [address] [place] [address] [place] [address]- When:Within 2 Month(s) [facility] Evaluation + Plan note Future Appointments Appointment Date:05/01/2022 02:00:00 PM Scheduled Provider:Rosa Shearer CNP Location:[facility] Digestive Health Appointment Type:BAD Follow Up [facility] Evaluation + Plan note Future Appointments Appointment Date:04/17/2022 12:15:00 PM Scheduled Provider:Kimberley HAMEED MD Location:[facility] Dig[facility]ive Health Appointment Type:[facility] Future Appointments Appointment Date:06/19/2022 12:40:00 PM Scheduled Provider:Rosa Shearer CNP Location:[facility] Digestive Health Appointment Type:[facility] Follow Up [facility] Evaluation + Plan note Future Appointments Appointment Date:07/24/2022 01:40:00 PM Scheduled Provider:Rosa Shearer CNP Location:[facility] Digestive [facility] Appointment Type:[facility] Follow Up Future Scheduled Tests Laboratory* Pancreatic Elastase, Fecal 06/19/22 * Fecal WBC Lactoferrin 06/19/22 * Giardia lamblia, Direct Detection EIA 06/19/22 * O & P Exam, Routine 06/19/22 * Clostridium difficile by PCR 06/19/22 * Enteric Panel by PCR 06/19/22 [facility] aluation + Plan note Future Appointments Appointment Date:10/16/2022 02:00:00 PM Scheduled Provider: [facility] Type:US Abdominal/Pelvis () Future Scheduled Tests Laboratory* Vitamin E Level 06/26/22 * Vitamin A Level 06/26/22 * Vitamin D 25 Hydroxy 06/26/22 * Vitamin B12 Level 06/26/22 Radiology* US Pelvis Non-OB Complete 10/16/22 [facility] evaluation + Plan note Future Appointments Appointment Date:11/22/2022 01:00:00 PM Scheduled Provider:Rosa Shearer CNP Location:[facility] Digestive Health Appointment Type:[facility] Follow Up Diagnostic Tests Pending * Vitamin E Level 11/01/22 * Vitamin A Level 11/01/22 [facility] Future Appointments Appointment Date:02/22/2023 12:20:00 PM Scheduled Provider:Rosa Shearer CNP Location:[facility] Digestive Health Appointment Type:[facility] Follow Up Future Scheduled Tests Laboratory* Vitamin B12 Level 11/22/22 [facility] Evaluation + Plan note Future Appointments Appointment Date:02/22/2023 12:20:00 PM Scheduled Provider:Rosa Shearer CNP Location:[facility] Digestive Health Appointment Type:[facility] Future Appointments Appointment Date:03/07/2023 12:00:00 PM Scheduled Provider: Location:[facility] Surgical Services Appointment Type:Surgery FT Appointment Date:03/26/2023 12:40:00 PM Scheduled Provider:Rosa Shearer CNP Location:[facility] Digestive Health Appointment Type:[facility] Follow Up [facility] Evaluation + Plan note Future Appointments Appointment Date:03/26/2023 12:40:00 PM Scheduled Provider:Rosa Shearer CNP Location:[facility] Digestive Health Appointment Type:[facility] Follow [facility] Future Appointments Appointment Date:06/26/2023 12:40:00 PM Scheduled Provider:Rosa Shearer CNP Location:[facility] Digestive Health Appointment Type:[facility] Follow Up [facility] Evaluation + Plan note Future Appointments Appointment Date:07/26/2023 01:40:00 PM Scheduled Provider:Rosa Shearer CNP Location:[facility] Digestive Health Appointment Type:[facility] Follow Up Future Scheduled Tests Laboratory* Pancreatic Elastase, Fecal 06/26/23 [facility] Evaluation + Plan note Future Appointments Appointment Date:10/11/2023 01:00:00 PM Scheduled Provider:Rosa Shearer CNP Location:[facility] Digestive Health Appointment Type:[facility] Follow Up Future Scheduled Tests Laboratory* Pancreatic Elastase, Fecal 06/26/23 [facility] evaluation + Plan note Future Appointments Appointment Date:10/11/2023 01:00:00 PM Scheduled Provider:Rosa Shearer CNP Location:[facility] Digestive Health Appointment Type:[facility] Follow Up Diagnostic Tests Pending * Pancreatic Elastase, Fecal 07/31/23 [facility] Future Appointments Appointment Date:03/09/2024 12:00:00 PM Scheduled Provider: Location:[facility] Surgical Services Appointment Type:Surgery FT Appointment Date:03/27/2024 12:00:00 PM Scheduled Provider:Rosa Shearer CNP Location:[facility] Appointment Type:[facility] Follow Up Future Scheduled Tests Laboratory* CBC w/ Auto Diff 10/11/23 * Comprehensive Metabolic Panel 10/11/23 * Vitamin B12 Level 10/11/23 [facility] evaluation + Plan note Future Appointments Appointment Date:03/09/2024 12:00:00 PM Scheduled Provider: Location:[facility] Surgical Services Appointment Type:Surgery FT Appointment Date:03/27/2024 12:00:00 PM Scheduled Provider:Rosa Shearer CNP Location:[facility] Appointment Type:[facility] Follow [facility] Future Appointments Appointment Date:03/26/2024 10:45:00 AM Scheduled Provider:Liborio Garcia MD Location:[facility] Digestive [facility] Appointment Type:[facility] Follow Up [facility] Future Appointments Appointment Date:07/06/2024 12:45:00 PM Scheduled Provider:Liborio Garcia MD Location:[facility] Digestive Health Appointment Type:[facility] Follow Up [facility] evaluation note* Diagnosis Anemia, 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 Other vitamin B12 deficiency anemia documented in this encounter [facility] note* Diagnosis Anemia, 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 Other vitamin B12 deficiency anemia documented in this encounter [facility] note* Diagnosis Anemia, 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 Other vitamin B12 deficiency anemia documented in this encounter [facility] note* Diagnosis Anemia, 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 Other vitamin B12 deficiency anemia documented in this encounter [facility] note* Diagnosis Anemia, 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 Other vitamin B12 deficiency anemia documented in this encounter [facility] note* Diagnosis Anemia, 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 Other vitamin B12 deficiency anemia documented in this encounter [facility] note* Diagnosis 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 deficiency- Primary Other vitamin B12 deficiency anemia Anemia, unspecified type Pancreatic insufficiency Other specified disease of pancreas documented in this encounter [facility] note* Diagnosis 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 deficiency- Primary Other vitamin B12 deficiency anemia Pancreatic insufficiency Other specified disease of pancreas documented in this encounter [facility] note* Diagnosis Anemia, 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 Other vitamin B12 deficiency anemia Tachycardia Tachycardia, unspecified [facility]* Diagnosis Anemia, 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 Other vitamin B12 deficiency anemia documented in this encounter [facility] note* Diagnosis Anemia, 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 Other vitamin B12 deficiency anemia documented in this encounter [facility] note* Diagnosis Onset Date Resolution Status Diverticulosis acute Irritable bowel syndrome with diarrhea acute [facility] Work Phone: Evaluation note* Diagnosis Anemia, 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 Other vitamin B12 deficiency anemia [facility]* Diagnosis 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 deficiency- Primary Other vitamin B12 deficiency anemia documented in this encounter [facility] note* Diagnosis Onset Date Resolution Status Abdominal cramping acute Diverticulosis acute Fatty liver acute Irritable bowel syndrome with diarrhea acute Abdominal cramping acute Irritable bowel syndrome with diarrhea acute [facility] Work Phone: Evaluation note* Diagnosis Anemia, 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 Other vitamin B12 deficiency anemia documented in this encounter [facility] general Narrative - Reported* Type Description [...] guided biopsy Left Breast Hospitalization History childbirth [facility] Other Hospital course Narrative No data available for this section [facility] Discharge instructions No data available for this section [facility] No data available for this section [facility] Shaw[facility] for referral (narrative) Referred by: Rosa Shearer CNP [facility] Summary Purpose Family History No Family History Records Found Relationship Condition Age at Onset Recorded Date/T charlie mother Diabetes mellitus Unknown Congestive heart failure Unknown father Malignant neoplasm Unknown sister Malignant neoplasm of colon Unknown brother Parkinson's disease Unknown father Unknown Family history of mental disorder Unknown Family history of emphysema Unknown mother Heart disease Unknown Malignant neoplasm Unknown Unknown Diabetes mellitus Unknown Hypertension Unknown sibling Hypertension Unknown sister Unknown Advance Directives No Advanced Directives Records Found Advance Directive Response Recorded Date/ Time Advance Directives No October 04, 2017 5:44pm Medications Administered Section Inactive Administered Medications - [...] 2:04 PM EST 1,000 mcg Deltoid, Right Chief Complaint and Reason for Visit Chief Complaint Refer Yulia Prince ,diverticulosis,ibs w diarrhea Reason for Visit Diverticulosis Irritable bowel syndrome with diarrhea Chief Complaint Refer Yulia Prince ,diverticulosis,ibs w diarrhea Irritable Bowel Syndrome Reason for Visit Abdominal cramping Diverticulosis Fatty liver Irritable bowel syndrome with diarrhea Abdominal cramping Irritable bowel syndrome with diarrhea Additional Source Comments INFORMATION SOURCE (unrecogn ized section and content) DATE CREATED AUTHOR 10/09/2021 [facility] DATE CREATED AUTHOR AUTHOR'S ORGANIZ ATION 10/17/2021 [facility] DATE CREATED AUTHOR AUTHOR'S ORGANIZ ATION 12/09/2022 [facility] DATE CREATED AUTHOR AUTHOR'S ORGANIZ ATION 12/19/2023 [facility] DATE CREATED AUTHOR AUTHOR'S ORGANIZ ATION 01/23/2024 [facility] DATE CREATED AUTHOR AUTHOR'S ORGANIZ ATION 04/07/2024 [facility] DATE CREATED AUTHOR AUTHOR'S ORGANIZ ATION 04/08/2024 [facility] DATE CREATED AUTHOR AUTHOR'S ORGANIZ ATION 05/14/2024 [facility] DATE CREATED AUTHOR AUTHOR'S ORGANIZ ATION 05/20/2024 [facility] Care Team (unrecognized sect ion and content) [employer]pt[employer]ist Spinner Relationship Specialty Start Date End Date Ambrose Nolakenney Weems [address] [place] [address] PCP - General Family Medicine 11/05/18 Nurys Boggs [address] [facility] [address] [place] [address] Referring Family Medicine 11/05/18 Uptwist Spinner Relationship Specialty Start Date End Date Nurys Boggs [address] [facility] [address] [place] [address] PCP - General Family Medicine 11/05/18 Nurys Boggs [address] [place] [address] Referring Family Medicine 11/05/18 Uptwist Spinner Relationship Specialty Start Date End Date Nurys Boggs [address] [place] [address] PCP - General Family Medicine 11/05/18 Nurys Boggs [address] [place] [address] Referring Family Medicine 11/05/18 Uptwist Spinner Relationship Specialty Start Date End Date Nurys Boggs [address] [place] [address] PCP - General Family Medicine 11/05/18 Nurys Boggs [address] [place] [address] Referring Family Medicine 11/05/18 Uptwist Spinner Relationship Specialty Start Date End Date Nurys Boggs [address] [place] [address] PCP - General Family Medicine 11/05/18 Nurys Boggs [address] [place] [address] Referring Family Medicine 11/05/18 Uptwist Spinner Relationship Specialty Start Date End Date Nurys Boggs MD [address] [place] [address] PCP - General Family Medicine 11/05/18 Nurys Boggs MD [address] [place] [address] Referring Family Medicine 11/05/18 Uptwist Spinner Relationship Specialty Start Date End Date Nurys Boggs MD [address] [place] [address] PCP - General Family Medicine 11/05/18 Nurys Boggs MD [address] [place] [address] Referring Family Medicine 11/05/18 Uptwist Spinner Relationship Specialty Start Date End Date Nurys Boggs MD [address] [place] [address] PCP - General Family Medicine 11/05/18 Nurys Boggs MD [address] [place] [address] Referring Family Medicine 11/05/18 Uptwist Spinner Relationship Specialty Start Date End Date Nurys Boggs MD [address] [place] [address] PCP - General Family Medicine 11/05/18 Nurys Boggs MD [address] [place] [address] Referring Family Medicine 11/05/18 Uptwist Spinner Relationship Specialty Start Date End Date Nurys Boggs MD [address] [place] [address] PCP - General Family Medicine 11/05/18 Nurys Boggs MD [address] [place] [address] Referring Family Medicine 11/05/18 Uptwist Spinner Relationship Specialty Start Date End Date Nurys Boggs MD [address] [place] [address] PCP - General Family Medicine 11/05/18 Nurys Boggs MD [address] [place] [address] Referring Family Medicine 11/05/18 Uptwist Spinner Relationship Specialty Start Date End Date Nurys Boggs MD [address] [place] [address] PCP - General Family Medicine 11/05/18 Nurys Boggs MD [address] [place] [address] Referring Family Medicine 11/05/18 Uptwist Spinner Relationship Specialty Start Date End Date Nurys Boggs MD [address] [place] [address] PCP - General Family Medicine 11/05/18 Nurys Boggs MD [address] [place] [address] Referring Family Medicine 11/05/18 Uptwist Spinner Relationship Specialty Start Date End Date Nruys Boggs MD [address] [facility] [address] [place] [address] PCP - General Family Medicine 11/05/18 Nurys Boggs MD [address] [facility] [address] [place] [address] Referring Family Medicine 11/05/18 Uptwist Spinner Relationship Specialty Start Date End Date Nurys Boggs MD [address] [facility] [address] [place] [address] PCP - General Family Medicine 11/05/18 Nurys Boggs MD [address] [facility] [address] [place] [address] Referring Family Medicine 11/05/18 Team Status: Active Member Role Status Dates Nurys Boggs MD Primary Care Provider Active Team Status: Inactive Member Role Status Dates Nurys Boggs MD Primary Care Provider Active S tart: March 12, 2024 End: March 12, 2024 Sandro Horton MD Attending Provider Active S tart: March 12, 2024 End: March 12, 2024 Uptwist Spinner Relationship Specialty Start Date End Date Nurys Boggs MD [address] [facility] [address] [place] [address] PCP - General Family Medicine 11/05/18 Nurys Boggs MD [address] [facility] [address] [place] [address] Referring Family Medicine 11/05/18 Team Status: Inactive Member Role Status Dates Nurys Boggs MD Primary Care Provider Active S tart: May 06, 2024 End: May 06, 2024 Donte Leon APRN Attending Provider Active Start: May 06, 2024 End: May 06, 2024 Uptwist Spinner Relationship Specialty Start Date End Date Nurys Boggs MD [address] [facility] [address] [place] [address] PCP - General Family Medicine 11/05/18 Nurys Boggs MD [address] [facility] [address] [place] [address] Referring Family Medicine 11/05/18 REASON FOR VISIT (unrecogniz ed section and content) Reason Comments B12 Deficiency New patient consult [facility] Reason Comments Records Faxed To [facility] Reason Comments Anemia Reason Comments Nutrition Assessment Reason Comments Syncope Reason Comments Anemia Follow up Source Comments (unrecognize d section and content) In the event this informatio n is protected by the Federal Confidentiality of Alcohol and Drug Abuse Patient Records regulations: The Federal rules restrict any use of the information to criminally investigate or prosecute any alcohol or drug abuse patient.[facility] the event this information is protected by the Federal Confidentiality of Alcohol and Drug Abuse Patient Records regulations: The Federal rules restrict any use of the information to criminally investigate or prosecute any alcohol or drug abuse patient.[facility] the event this information is protected by the Federal Confidentiality of Alcohol and Drug Abuse Patient Records regulations: The Federal rules restrict any use of the information to criminally investigate or prosecute any alcohol or drug abuse patient.[facility] the event this information is protected by the Federal Confidentiality of Alcohol and Drug Abuse Patient Records regulations: The Federal rules restrict any use of the information to criminally investigate or prosecute any alcohol or drug abuse patient.[facility] Hospital[facility] the event this information is protected by the Federal Confidentiality of Alcohol and Drug Abuse Patient Records regulations: The Federal rules restrict any use of the information to criminally investigate or prosecute any alcohol or drug abuse patient.[facility] the event this information is protected by the Federal Confidentiality of Alcohol and Drug Abuse Patient Records regulations: The Federal rules restrict any use of the information to criminally investigate or prosecute any alcohol or drug abuse patient.[facility] the event this information is protected by the Federal Confidentiality of Alcohol and Drug Abuse Patient Records regulations: The Federal rules restrict any use of the information to criminally investigate or prosecute any alcohol or drug abuse patient.[facility] Hospital[facility] the event this information is protected by the Federal Confidentiality of Alcohol and Drug Abuse Patient Records regulations: The Federal rules restrict any use of the information to criminally investigate or prosecute any alcohol or drug abuse patient.[facility] the event this information is protected by the Federal Confidentiality of Alcohol and Drug Abuse Patient Records regulations: The Federal rules restrict any use of the information to criminally investigate or prosecute any alcohol or drug abuse patient.[facility] Hospital[facility] the event this information is protected by the Federal Confidentiality of Alcohol and Drug Abuse Patient Records regulations: The Federal rules restrict any use of the information to criminally investigate or prosecute any alcohol or drug abuse patient.[facility] Hospital[facility] the event this information is protected by the Federal Confidentiality of Alcohol and Drug Abuse Patient Records regulations: The Federal rules restrict any use of the information to criminally investigate or prosecute any alcohol or drug abuse patient.[facility] Hospital[facility] the event this information is protected by the Federal Confidentiality of Alcohol and Drug Abuse Patient Records regulations: The Federal rules restrict any use of the information to criminally investigate or prosecute any alcohol or drug abuse patient.[facility] Hospital[facility] the event this information is protected by the Federal Confidentiality of Alcohol and Drug Abuse Patient Records regulations: The Federal rules restrict any use of the information to criminally investigate or prosecute any alcohol or drug abuse patient.[facility] Hospital[facility] the event this information is protected by the Federal Confidentiality of Alcohol and Drug Abuse Patient Records regulations: The Federal rules restrict any use of the information to criminally investigate or prosecute any alcohol or drug abuse patient.[facility] Hospital[facility] the event this information is protected by the Federal Confidentiality of Alcohol and Drug Abuse Patient Records regulations: The Federal rules restrict any use of the information to criminally investigate or prosecute any alcohol or drug abuse patient.[facility] HospitalIn the event this information is protected by the Federal Confidentiality of Alcohol and Drug Abuse Patient Records regulations: The Federal rules restrict any use of the information to criminally investigate or prosecute any alcohol or drug abuse patient.[facility] Hospital[facility] the event this information is protected by the Federal Confidentiality of Alcohol and Drug Abuse Patient Records regulations: The Federal rules restrict any use of the information to criminally investigate or prosecute any alcohol or drug abuse patient.[facility] HospitalIn the event this information is protected by the Federal Confidentiality of Alcohol and Drug Abuse Patient Records regulations: The Federal rules restrict any use of the information to criminally investigate or prosecute any alcohol or drug abuse patient.[facility] HospitalIn the event this information is protected by the Federal Confidentiality of Alcohol and Drug Abuse Patient Records regulations: The Federal rules restrict any use of the information to criminally investigate or prosecute any alcohol or drug abuse patient.[facility] HospitalIn the event this information is protected by the Federal Confidentiality of Alcohol and Drug Abuse Patient Records regulations: The Federal rules restrict any use of the information to criminally investigate or prosecute any alcohol or drug abuse patient.[facility] the event this information is protected by the Federal Confidentiality of Alcohol and Drug Abuse Patient Records regulations: The Federal rules restrict any use of the information to criminally investigate or prosecute any alcohol or drug abuse patient.[facility] Hospital[facility] the event this information is protected by the Federal Confidentiality of Alcohol and Drug Abuse Patient Records regulations: The Federal rules restrict any use of the information to criminally investigate or prosecute any alcohol or drug abuse patient.[facility] Inactive Administered Medications - up to 3 [...] 2:00 PM EDT 1,000 mcg Deltoid, Right Inactive Administered Medications - up to 3 most recent administrations Medication Order MAR Action Action Date Dose Rate Site cyanocobalamin 1,000 mcg injection 1,000 mcg, INTRAMUSCULAR, ONCE, 1 dose, On [place] 12/05/23 at 1430 Given 12/05/2023 2:30 PM EDT 1,000 mcg Deltoid, Right Goals (unrecognized section and content) Goals may be documented in a n alternate section FOR RECORDS PERTAINING TO PATIENTS WHO ARE [...] BE BASED ON THE PRIMARY CLINICAL RECORDS. [facility] [employer] [facility]. provides no warranty or guarantee of the accuracy or completeness of information in this document.
== END 2024-06-05 12:56 | disposition home or self-care (01) ==
LOC: MAMMO 12:55
PROVIDERS: PCP Physician Assistant; Visit Provider Physician Assistant
DX: Z12.31 Encounter for screening mammogram for malignant neoplasm of breast (principal); Z80.3 Family history of malignant neoplasm of breast; Z80.0 Family history of malignant neoplasm of digestive organs
CPT/HCPCS: 77063; 77067

== ENCOUNTER 2025-01-21 13:39 | Outpatient (OUT) | payer MEDICARE, OTHER, SELFPAY ==
--- OUTSIDE RECORDS SUMMARY | 2025-01-14 14:30 | XMS_ITS | Encounter Summary ---
Author Organization [facility] Address [address] [facility] [place] [address] Care Team Providers Care Coupon And Bond Collection Clerk Name Role Phone Gamal Mari MD Unavailable Gamal Mari MD Primary Care Provider [phone] Reason for Referral * Imaging (Routine) - Authorized Specialty Diagnoses / Procedures Referred By Contac t Referred To Contact Acute [facility] Diagnoses New onset headache Neck pain on left side Bony abnormality Procedures CT head wo IV contrast Yulia Pollock NP [address] [facility] [address] [place] [address] Phone: tel: fax: [facility] [address] [place] [address] Phone: tel: fax: Referral ID Status Reason Start Date Expiration Date V isits Requested Visits Authorized [id number] Authorized 01/14/2025 07/13/2025 1 1 Encounter Details Date Type Department Care Team (Late st Contact Info) Description 01/14/2025 2:30 PM EDT Office Visit [facility] [address] [facility] [address] [place] [address] Yulia Pollock NP [address] [facility] [address] [place] [address] New onset headache (Primary Dx); Neck pain [...] and Family Not on file 08/05/2023 Attends Judaism Services Not on file 08/05 Active Member [...] Recorded Patient Health Questionnaire-2 Score 0 01/14/2025 [place] [place] [facility] - Occupational Stress [...] place to sleep or slept in a custodial (including now)? No 02/21/2023 Comments Unknown Sex [...] Prior to Visit Medication Sig Dispense Refill Rpjhidp-Mjeosrxbtu-Ncpxphy D (CALCIUM GUMMIES PO) Take 2 each [...] [facility] [address] [place] [address] Cristiane Duckworth MD [address] [place] [address] Scheduled Orders Name Type Priority Associated Diagnoses [...] documented as of this encounter Care Teams Coupon And Bond Collection Clerk Relationship Specialty Start Date End Date Gamal Mari MD [address] [facility] [address] [place] [address] PCP - ACO Reach 01/17/23 Gamal Mari MD [address] [facility] [address] [place] [address] PCP - General Family Medicine 01/28/23 documented as of this encounter
--- OUTSIDE RECORDS SUMMARY | 2025-01-21 13:41 | XMS_ITS | Encounter Summary ---
Author Organization [facility] Address [address] [place] [address] Care Team Providers Care Television Cable Installer Name Role Phone Gamal Mari MD Unavailable Gamal Mari MD Primary Care Provider [phone] Emmie Dela Cruz RN Unavailable [phone] Encounter Details Date Type Department Care Team (Late st Contact Info) Description 05/14/2024 Abstract [facility] [address] [facility] [address] [place] [address] Gamal Mari MD [address] [facility] [address] [place] [address] Social History Tobacco Use Types Packs/Day Years Used Date Smoking Tobacco: Every Day Cigarettes 1 15 Smokeless Tobacco: Never Comments:11-20 cigs/day Alcohol Use Standard Drinks/Week Comments [...] and Family Not on file 08/05/2023 Attends Caodaism Services Not on file 08/05 Active Member [...] Date Recorded Patient Health Questionnaire-2 Score 0 10/21/2023 [facility] - Occupational Stress [...] place to sleep or slept in a assisted (including now)? No 02/21/2023 Comments Unknown Sex and Gender Information Value Date Recorded Sex Assigned at Not on file Legal Sex Female 7:13 PM EDT Gender Identity Not on file Sexual Orientation Not on file documented as of this encounter Plan of Treatment Upcoming Encounters Date Type Department Care Team (Late st Contact Info) Description 02/10/2025 1:00 PM EDT Office Visit [facility] [address] [place] [address] Cristiane Duckworth MD [address] [place] [address] documented as of this encounter Visit Diagnoses Not on filedocumented in this encounter Additional Health Concerns Assessment Noted Time PHQ-9 Depression Total Score: 0 10/21/19 24 10:00 AM EST documented as of this encounter Care Teams Television Cable Installer Relationship Specialty Start Date End Date Gamal Mari MD [address] [facility] [address] [place] [address] PCP - ACO Reach 01/17/23 Gamal Mari MD [address] [facility] [address] [place] [address] PCP - General Family Medicine 01/28/23 Emmie Dela Cruz, RN Registered Nurse Family Medicine 08/05/23 10/21/24 documented as of this encounter
--- OUTSIDE RECORDS SUMMARY | 2025-01-21 13:41 | XMS_ITS | Encounter Summary ---
Author Organization [facility] Address [address] [place] [address] Care Team Providers Care Cost Consultant Name Role Phone Gamal Mari MD Unavailable Gamal Mari MD Primary Care Provider [phone] Emmie Dela Cruz RN Unavailable [phone] Encounter Details Date Type Department Care Team (Late st Contact Info) Description 06/09/2024 Abstract [facility] [address] [facility] [address] [place] [address] Gamal Mari MD [address] [facility] 110 [place] [address] Social History Tobacco Use Types [...] Recorded Patient Health Questionnaire-2 Score 0 10/21/2023 [facility] ional [facility] - Occupational [...] place to sleep or slept in a half-way (including now)? No 02/21/2023 Comments Unknown Sex [...] Visit [facility] [address] [place] [address] Cristiane Duckworth MD [address] [place] [address] documented as of this encounter Visit Diagnoses Not on filedocumented in this encounter Additional Health Concerns Assessment Noted Time PHQ-9 Depression Total Score: 0 10/21/19 24 10:00 AM EST documented as of this encounter Care Teams Cost Consultant Relationship Specialty Start Date End Date Gamal Mari MD [address] [facility] [address] [place] [address] PCP - ACO Reach 01/17/23 Gamal Mari MD [address] [place] [address] PCP - General Family Medicine 01/28/23 Emmie Dela Cruz, RN Registered Nurse Family Medicine 08/05/23 10/21/24 documented as of this encounter
--- OUTSIDE RECORDS SUMMARY | 2025-01-21 13:41 | XMS_ITS | Encounter Summary ---
Author Organization [facility] Address [address] [place] [address] Care Team Providers Care Shuttle Fixer Name Role Phone Gamal Mari MD Unavailable Gamal Mari MD Primary Care Provider [phone] Emmie Dela Cruz RN Unavailable [phone] Encounter Details Date Type Department Care Team (Late st Contact Info) Description 06/08/2024 Clinisync Result Encounter [facility] External Department Unsolicited Francisca Saenz, PA 112 [facility] 110 [place] [address] Social History Tobacco Use Types Packs/Day Years [...] and Family Not on file 08/05/2023 Attends Sikhism Services Not on file 08/05 Active Member [...] Recorded Patient Health Questionnaire-2 Score 0 10/21/2023 [facility] of Occupat ional Health - Occupational Stress [...] place to sleep or slept in a correction (including now)? No 02/21/2023 Comments Unknown Sex [...] Visit [facility] [address] [place] [address] Cristiane Duckworth MD [address] [place] [address] documented as of this encounter Procedures Procedure Name Priority Date/Time Associated Diagnosis Comments MM TOMOSYNTHESIS SCREENING BI 06/08/2024 9:07 AM EDT documented in this encounter Results * MM TOMOSYNTHESIS SCREENING BI (06/08/2024 9:07 AM EDT) Anatomical Region Laterality Modality Other 06/08/2024 9:07 AM EDT Narrative 06/08/2024 9:08 AM EDT The [address] [address] Mammography Report Signed Patient: GINNY DEL CASTILLO MR#: [id number] : 1955 Acct:[id number] Age/Sex: 69 / F ADM Date: 06/05/24 Loc: MAMMO Attending Dr: FRANCISCA SAENZ Ordering Physician: FRANCISCA SAENZ Results: Date of Service: 06/05/24 Follow Up: Procedure(s): MM tomosynthesis screening BI Accession Number(s): [id number] cc: FRANCISCA SAENZ Patient Name: GINNY DEL CASTILLO MR#: [id number] : 1955 Exam Date: 06/05/2024 Ordering Doctor: DR FRANCISCA SAENZ PA RADIOLOGY REPORT PROCEDURE: MM TOMOSYNTHESIS SCREENING BI COMPARISON: MG MAMM DIAGNOSTIC 3D TAMMY CAD, 05/29/2022. MM TOMOSYNTHESIS SCREENING BI, 06/04/2023. INDICATIONS: Screening Calculator Name [facility] Breast Cancer Risk Assessment Tool 5 Year Breast Cancer Risk n/a% Lifetime Breast Cancer Risk n/a% Personal Breast Cancer Yes, DCIS right breast with radiation 2019 Personal Ovarian Cancer No Treatments Radiation Family Cancers Mother with breast cancer at age 59; Sister with colon cancer at age 54. LOCATION: The [facility] BREAST COMPOSITION: The breasts are extremely dense, which lowers the sensitivity of mammography. FINDINGS: DIAGNOSTIC CATEGORY 2--BENIGN FINDING. NO CHANGE FROM COMPARISON. Scattered benign-appearing calcifications are present. Scattered benign-appearing lymph nodes are present. RIGHT BREAST: No significant suspicious finding. LEFT BREAST: No significant suspicious finding. RECOMMENDATIONS: ROUTINE MAMMOGRAM AND CLINICAL EVALUATION IN 12 MONTHS. PLEASE NOTE: A NORMAL MAMMOGRAM DOES NOT EXCLUDE THE POSSIBILITY OF BREAST CANCER. A CLINICALLY SUSPICIOUS PALPABLE LUMP SHOULD BE BIOPSIED. Dictated by: Chuck Melton MD on 06/08/2024 at 09:05 Approved by: Chuck Melton MD on 06/08/2024 at 09:07 Dictated By: Chuck Melton M.D. Signed By: 06/08/24907 DD/ 6 TD/TT: Donkey Ride Operator: Procedure Note Radiology, Radiologist, MD - 06/08/2024 [place] [address] Mammography Report Signed Patient: GINNY DEL CASTILLO AMR#: [id number] : 3Acct:[id number] Age/Sex: 69 / FADM Date: 06/05/24 Loc: MAMMO Attending Dr: FRANCISCA SAENZ Ordering Physician: FRANCISCA SAENZ MResults: Date of Service: 06/05/24Follow Up: Procedure(s): MM tomosynthesis screening BI Accession Number(s): [id number] cc: FRANCISCA SAENZ Patient Name: GINNY DEL CASTILLO MR#: [id number] : 1955 Exam Date: 06/05/2024 Ordering Doctor: DR FRANCISCA COLON RADIOLOGY REPORT PROCEDURE: MM TOMOSYNTHESIS SCREENING BI COMPARISON: MG MAMM DIAGNOSTIC 3D TAMMY CAD, 05/29/2022. MMTOMOSYNTHESIS SCREENING BI, 06/04/2023. INDICATIONS: Screening Calculator Name [facility] Breast Cancer Risk Assessment Tool 5 Year Breast Cancer Risk n/a% Lifetime Breast Cancer Risk n/a% Personal Breast Cancer Yes, DCIS right breast with radiation 2019 Personal Ovarian Cancer No Treatments Radiation Family Cancers Mother with breast cancer at age 59; Sister with colon cancer at age 54. LOCATION: The [facility] BREAST COMPOSITION: The breasts are extremely dense, which lowers the sensitivity of mammography. FINDINGS: DIAGNOSTIC CATEGORY 2--BENIGN FINDING. NO CHANGE FROM COMPARISON.Scattered benign-appearing calcifications are present. Scattered benign-appearinglymph nodes are present. RIGHT BREAST: No significant suspicious finding. LEFT BREAST: No significant suspicious finding. RECOMMENDATIONS: ROUTINE MAMMOGRAM AND CLINICAL EVALUATION IN 12 MONTHS. PLEASE NOTE: A NORMAL MAMMOGRAM DOES NOT EXCLUDE THE POSSIBILITY OFBREAST CANCER. A CLINICALLY SUSPICIOUS PALPABLE LUMP SHOULD BE BIOPSIED. Dictated by: Chuck Melton MD on 06/08/2024 at 09:05 Approved by: Chuck Melton MD on 06/08/2024 at 09:07 Dictated By: Chuck Melton M.D. Signed By:06/08/24907 DD/ 6 TD/TT: Donkey Ride Operator: us Francisca [facility] Final Result documented in this encounter Visit Diagnoses Not on filedocumented in this encounter Additional Health Concerns Assessment Noted Time PHQ-9 Depression Total Score: 0 10/21/19 24 10:00 AM EST documented as of this encounter Care Teams Shuttle Fixer Relationship Specialty Start Date End Date Gamal Mari MD [address] [place] [address] 110 [place] [address] PCP - ACO Reach 01/17/23 Gamal Mari MD 112 [facility] 110 [place] [address] PCP - General Family Medicine 01/28/23 Emmie Dela Cruz, YAA Registered Nurse Family Medicine 08/05/23 10/21/24 documented as of this encounter
--- OUTSIDE RECORDS SUMMARY | 2025-01-21 13:41 | XMS_ITS | Encounter Summary ---
Author Organization [facility] Address [address] [place] [address] Care Team Providers Care Events Assistant Name Role Phone Gamal Boggs MD Unavailable Gamal Boggs MD Primary Care Provider [phone] Emmie Dela Cruz RN Unavailable [phone] Encounter Details Date Type Department Care Team (Late st Contact Info) Description 03/18/2024 Clinisync Result Encounter [facility] External Department Unsolicited Gamal Boggs MD [address] [facility] 110 [place] [address] Social History Tobacco Use Types Packs/Day Years [...] and Family Not on file 08/05/2023 Attends Hinduism Services Not on file 08/05 Active Member [...] Recorded Patient Health Questionnaire-2 Score 0 10/21/2023 [facility] of Occupat ional Health - Occupational Stress [...] place to sleep or slept in a nursing home (including now)? No 02/21/2023 Comments Unknown Sex [...] Visit [facility] [address] [place] [address] Cristiane Duckworth MD [address], [address] [place] [address] documented as of this encounter Procedures Procedure Name Priority Date/Time Associated Diagnosis Comments XR KNEE 1-2 VIEWS LEFT 03/18/2024 7:39 AM EDT documented in this encounter Results * XR knee 1 or 2 views left (03/18/2024 7:39 AM EDT) Anatomical Region Laterality Modality Lower Extremities, Knee Left Radiogra [facility] Imaging 03/18/2024 7:39 AM EDT Narrative 03/18/2024 7:41 AM EDT The [address] [address] XRay Report Signed Patient: GINNY DEL CASTILLO MR#: [id number] : 1955 Acct:[id number] Age/Sex: 68 / F ADM Date: 03/17/24 Loc: RAD Attending Dr: GAMAL BOGGS Ordering Physician: GAMAL BOGGS Date of Service: 03/17/24 Procedure(s): XR knee LT 2V Accession Number(s): [id number] cc: GAMAL BOGGS ; HONORIO ROJAS [place] [id number] Patient Name: GINNY DEL CASTILLO MRN: [id number] date: 1955 Sex: F Assigned Patient Location: RAD Current Patient Location: Accession/Order Number: [id number] Exam Date: 03/17/2024 12:00 Report Date: 03/18/2024 07:39 At the request of: GAMAL BOGGS Procedure: XR knee LT 2V PROCEDURE: XR knee LT 2V COMPARISON: None. HISTORY: Fall In Home, Contusion Left Knee, Left Knee Pain FINDINGS: BONES:No acute fracture or dislocation. Minimal degenerative changes with marginal osteophyte formation SOFT TISSUES:Negative. No visible soft tissue swelling. EFFUSION:None visible. OTHER: Negative. XR/XR knee LT 2V IMPRESSION: Minimal osteoarthritis Electronically authenticated by: ALEXANDRO DEL VALLE Date: 03/18/2024 07:39 Dictated By: Alexandro Del Valle M.D. Signed By: 03/18/24 0741 DD/ TD/TT: Lead Nitrate Processor: Procedure Note Radiology, Radiologist, MD - 03/18/2024 [place] [address] XRay Report Signed Patient: GINNY DEL CASTILLO AMR#: [id number] : 1955cct:[id number] Age/Sex: 68 / FADM Date: 03/17/24 Loc: RAD Attending Dr: GAMAL BOGGS Ordering Physician: GAMAL BOGGS Date of Service: 03/17/24 Procedure(s): XR knee LT 2V Accession Number(s): [id number] cc: GAMAL BOGGS ; HONORIO ROJAS [place] [id number] Patient Name: GINNY DEL CASTILLO MRN: [id number] date: 1955 Sex: F Assigned Patient Location: [facility] Current Patient Location: Accession/Order Number: [id number] Exam Date: 03/17/2024 12:00 Report Date: 03/18/2024 07:39 At the request of: GAMAL BOGGS Procedure: XR knee LT 2V PROCEDURE: XR knee LT 2V COMPARISON: None. HISTORY: Fall In Home, Contusion Left Knee, Left Knee Pain FINDINGS: BONES:No acute fracture or dislocation. Minimal degenerative changes with marginal osteophyte formation SOFT TISSUES:Negative. No visible soft tissue swelling. EFFUSION:None visible. OTHER: Negative. XR/XR knee LT 2V IMPRESSION: Minimal osteoarthritis Electronically authenticated by: ALEXANDRO DEL VALLE Date: 03/18/2024 07:39 Dictated By: Alexandro Del Valle M.D. Signed By:03/18/24 0741 DD/ 0739 TD/TT: Lead Nitrate Processor: Gamal Boggs MD IMG XR PROCEDURES Final Result documented in this encounter Visit Diagnoses Not on filedocumented in this encounter Additional Health Concerns Assessment Noted Time PHQ-9 Depression Total Score: 0 10/21/19 24 10:00 AM EST documented as of this encounter Care Teams Events Assistant Relationship Specialty Start Date End Date Gamal Boggs MD [address] [facility] 110 [place] [address] PCP - ACO Reach 01/17/23 Gamal Boggs MD [address] [facility] [address] [place] [address] PCP - General Family Medicine 01/28/23 Emmie Dela Cruz, YAA Registered Nurse Family Medicine 08/05/23 10/21/24 documented as of this encounter
--- OUTSIDE RECORDS SUMMARY | 2025-01-21 13:41 | XMS_ITS | Encounter Summary ---
Author Organization [facility] Address [address] [place] [address] Care Team Providers Care Rides Attendant Name Role Phone Gamal Mari MD Unavailable Gamal Mari MD Primary Care Provider [phone] Emmie Dela Cruz RN Unavailable [phone] Encounter Details Date Type Department Care Team (Late st Contact Info) Description 03/18/[address] [facility] [address] [facility] 110 [place] [address] Gamal Mari MD 112 [facility] 110 [place] [address] Social History Tobacco Use Types [...] and Family Not on file 08/05/2023 Attends Denominational Services Not on file 08/05 Active Member [...] Recorded Patient Health Questionnaire-2 Score 0 10/21/2023 [facility] of Occupat ional Health [...] place to sleep or slept in a fci (including now)? No 02/21/2023 Comments Unknown Sex [...] Visit [facility] [address] [place] [address] Cristiane Duckworth MD [address] [place] [address] documented as of this encounter Visit Diagnoses Not on filedocumented in this encounter Additional Health Concerns Assessment Noted Time PHQ-9 Depression Total Score: 0 10/21/19 24 10:00 AM EST documented as of this encounter Care Teams Rides Attendant Relationship Specialty Start Date End Date Gamal Mari MD [address] [place] [address] PCP - ACO Reach 01/17/23 Gamal Mari MD [address] [place] [address] PCP - General Family Medicine 01/28/23 Emmie Dela Cruz, RN Registered Nurse Family Medicine 08/05/23 10/21/24 documented as of this encounter
--- OUTSIDE RECORDS SUMMARY | 2025-01-21 13:41 | XMS_ITS | Encounter Summary ---
Author Organization [facility] Address [address] [place] [address] Care Team Providers Care Job Service Specialist Name Role Phone Gamal Mari MD Unavailable Gamal Mari MD Primary Care Provider [phone] Emmie Dela Cruz RN Unavailable [phone] Encounter Details Date Type Department Care Team (Late st Contact Info) Description 06/08/2024 Abstract [facility] 112 [facility] 110 [place] [address] Gamal Mari MD 112 [facility] 110 [place] [address] Social History Tobacco Use Types [...] and Family Not on file 08/05/2023 Attends Zoroastrianism Services Not on file 08/05 Active Member [...] Recorded Patient Health Questionnaire-2 Score 0 10/21/2023 [facility] of Occupat ional Health - [...] Visit [facility] [address] [place] [address] Cristiane Duckworth MD [address] [place] [address] documented as of this encounter Visit Diagnoses Not on filedocumented in this encounter Additional Health Concerns Assessment Noted Time PHQ-9 Depression Total Score: 0 10/21/19 24 10:00 AM EST documented as of this encounter Care Teams Job Service Specialist Relationship Specialty Start Date End Date Gamal Mari MD [address] [place] [address] PCP - ACO Reach 01/17/23 Gamal Mari MD [address] [place] [address] PCP - General Family Medicine 01/28/23 Emmie Dela Cruz, RN Registered Nurse Family Medicine 08/05/23 10/21/24 documented as of this encounter
--- OUTSIDE RECORDS SUMMARY | 2025-01-21 13:41 | XMS_ITS | Encounter Summary ---
Author Organization [facility] Address [address] [place] [address] Care Team Providers Care Sharepoint Solutions Architect Name Role Phone Gamal Mari MD Unavailable Gamal Mari MD Primary Care Provider [phone] Emmie Dela Cruz RN Unavailable [phone] Encounter Details Date Type Department Care Team (Late st Contact Info) Description 03/26/2024 Abstract [facility] 112 [facility] 110 [place] [address] Gamal Mari MD 112 [facility] 110 [place] [address] Social History Tobacco Use Types [...] and Family Not on file 08/05/2023 Attends Gnosticism Services Not on file 08/05 Active Member [...] Recorded Patient Health Questionnaire-2 Score 0 10/21/2023 [facility] of Occupat ional Health - Occupational Stress [...] place to sleep or slept in a long term (including now)? No 02/21/2023 Comments Unknown Sex [...] Visit [facility] [address] [place] [address] Cristiane Duckworth MD [address] [place] [address] documented as of this encounter Visit Diagnoses Not on filedocumented in this encounter Additional Health Concerns Assessment Noted Time PHQ-9 Depression Total Score: 0 10/21/19 24 10:00 AM EST documented as of this encounter Care Teams Sharepoint Solutions Architect Relationship Specialty Start Date End Date Gamal Mari MD [address] [place] [address] PCP - ACO Reach 01/17/23 Gamal Mari MD [address] [place] [address] PCP - General Family Medicine 01/28/23 Emmie Dela Cruz, RN Registered Nurse Family Medicine 08/05/23 10/21/24 documented as of this encounter
--- OUTSIDE RECORDS SUMMARY | 2025-01-21 13:42 | XMS_ITS | Encounter Summary ---
Author Organization [facility] Address [address] [place] [address] Care Team Providers Care Straight Pin Making Machine Operator Name Role Phone Gamal Mari MD Unavailable Gamal Mari MD Primary Care Provider [phone] Emmie Dela Cruz RN Unavailable [phone] Encounter Details Date Type Department Care Team (Late st Contact Info) Description 12/26/2023 Clinisync Result Encounter [facility] External Department Unsolicited Aggie Prince, REHABILITATION COUNSELOR 112 [facility] 110 [place] [address] Social History Tobacco Use Types Packs/Day Years [...] and Family Not on file 08/05/2023 Attends Christian Services Not on file 08/05 Active Member [...] Recorded Patient Health Questionnaire-2 Score 0 10/21/2023 [facility] of Occupat ional Health - Occupational Stress [...] place to sleep or slept in a snf (including now)? No 02/21/2023 Comments Unknown Sex [...] Visit [facility] [address] [place] [address] Cristiane Duckworht MD [address] [place] [address] documented as of this encounter Procedures Procedure Name Priority Date/Time Associated Diagnosis Comments XR KNEE 4+ VIEWS RIGHT 12/26/2023 3:05 PM EDT documented in this encounter Results * XR knee 4+ views right (12/26/2023 3:05 PM EDT) Anatomical Region Laterality Modality Lower Extremities, Knee Right Radiogra [facility] Imaging 12/26/2023 3:05 PM EDT Narrative 12/26/2023 3:07 PM EDT The [address] [address] XRay Report Signed Patient: GINNY DEL CASTILLO MR#: [id number] : 1955 Acct:[id number] Age/Sex: 68 / F ADM Date: 12/26/23 Loc: RAD Attending Dr: AGGIE PRINCE Ordering Physician: AGGIE PRINCE Date of Service: 12/26/23 Procedure(s): XR knee RT 4V Accession Number(s): [id number] cc: HONORIO ROJAS ; AGGIE PRINCE [place] [id number] Patient Name: GINNY DEL CASTILLO MRN: [id number] date: 1955 Sex: F Assigned Patient Location: RAD Current Patient Location: RAD Accession/Order Number: [id number] Exam Date: 12/26/2023 14:30 Report Date: 12/26/2023 15:05 At the request of: AGGIE PRINCE Procedure: XR knee RT 4V PROCEDURE: XR knee RT 4V COMPARISON: None. HISTORY: Acute pain of right knee M25.561 FINDINGS: BONES:No fracture, acute abnormality, or significant arthropathy. SOFT TISSUES:Negative. No visible soft tissue swelling. EFFUSION:None visible. OTHER: Negative. XR/XR knee RT 4V IMPRESSION: No acute radiographic abnormality Electronically authenticated by: ALEXANDRO DEL VALLE Date: 12/26/2023 15:05 Dictated By: Alexandro Del Valle M.D. Signed By: 12/26/23 1507 DD/ 1505 TD/TT: Medical Registrar: Procedure Note Radiology, Radiologist, MD - 12/26/2023 [place] [address] XRay Report Signed Patient: GINNY DEL CASTILLO AMR#: [id number] : 1955cct:[id number] Age/Sex: 68 / FADM Date: 12/26/23 Loc: RAD Attending Dr: AGGIE PRINCE Ordering Physician: AGGIE PRINCE Date of Service: 12/26/23 Procedure(s): XR knee RT 4V Accession Number(s): [id number] cc: HONORIO ROJAS ; AGGIE PRINCE [place] [id number] Patient Name: GINNY DEL CASTILLO MRN: [id number] date: 1955 Sex: F Assigned Patient Location: [facility] Current Patient Location: RAD Accession/Order Number: [id number] Exam Date: 12/26/2023 14:30 Report Date: 12/26/2023 15:05 At the request of: AGGIE PRINCE Procedure: XR knee RT 4V PROCEDURE: XR knee RT 4V COMPARISON: None. HISTORY: Acute pain of right knee M25.561 FINDINGS: BONES:No fracture, acute abnormality, or significant arthropathy. SOFT TISSUES:Negative. No visible soft tissue swelling. EFFUSION:None visible. OTHER: Negative. XR/XR knee RT 4V IMPRESSION: No acute radiographic abnormality Electronically authenticated by: ALEXANDRO DEL VALLE Date: 12/26/2023 15:05 Dictated By: Alexandro Del Valle M.D. Signed By:12/26/23 1507 DD/ 1505 TD/TT: Medical Registrar: us Aggie Prince REHABILITATION COUNSELOR IMG XR PROCEDURES Final Resu lt documented in this encounter Visit Diagnoses Not on filedocumented in this encounter Additional Health Concerns Assessment Noted Time PHQ-9 Depression Total Score: 0 10/21/19 24 10:00 AM EST documented as of this encounter Care Teams Straight Pin Making Machine Operator Relationship Specialty Start Date End Date Gamal Mari MD [address] [facility] 110 [place] [address] PCP - ACO Reach 01/17/23 Gamal Mari MD [address] [facility] 110 [place] [address] PCP - General Family Medicine 01/28/23 Emmie Dela Cruz, RN Registered Nurse Family Medicine 08/05/23 10/21/24 documented as of this encounter
--- OUTSIDE RECORDS SUMMARY | 2025-01-21 13:42 | XMS_ITS | Encounter Summary ---
Author Organization [facility] Address [address] [place] [address] Care Team Providers Care Foreign Law Consultant Name Role Phone Gamal Mari MD Unavailable Gamal Mari MD Primary Care Provider [phone] Emmie Dela Cruz RN Unavailable Encounter Details Date Type Department Care Team (Late st Contact Info) Description 02/25/2023 Orders Only [facility] [address] [place] [id number] A, Unknown Practice [address] [place] [address] Social History Tobacco Use Types Packs/Day Years Used Date Smoking Tobacco: Every Day Cigarettes Smokeless Tobacco: Never Alcohol Use Standard Drinks/Week Comments Not Currently 0 (1 standard drink = 0.6 oz pur e alcohol) Humiliation, Afraid, Rape, and Kick questionnair e [...] or ex-partner? No 02/21/2023 Social Connection and Isolation Panel [NHANES] A nswer Date Recorded In a typical week, how many times do you talk on the phone with family, friends, or neighbors? Three times a week 02/21/2023 How often do you get togethe r with friends or relatives? Once a week 02/21/2023 How often do you attend chur ch or buddhism services? Patient declined 02/21/2023 Do you belong to any clubs o r organizations such as gnosticist groups, unions, fraternal or athletic groups, or school groups? No 02/21/2023 Attends Club or Organization Meetings Not on sudhakar e 02/21/2023 Are you , , di vorced, , never , or living with a partner? 02/21/2023 AUDIT-C Answer Date Recorded Q1: How often do you have a drink containing alc ohol? Monthly or less 02/21/2023 Q2: How many drinks containi ng alcohol do you have on a typical day when you are drinking? 1 or 2 02/21/2023 Q3: How often do you have si x or more drinks on one occasion? Never 02/21/2023 Overall Financial Resource Strain (CARDIA) Answe r Date Recorded How hard is it for you to pa y for the very basics like food, housing, medical care, and heating? Not hard at all 02/21/2023 [facility] Occupat ional [facility] - Occupational Stress Questionnaire Answer Date Recorded Do you feel stress - tense, restless, nervous, or anxious, or unable to sleep at night because your mind is troubled all the time - these days? Only a little 02/21/2023 Exercise Vital Sign Answer Date Recorde d On average, how many days pe r week do you engage in moderate to strenuous exercise (like a brisk walk)? 0 days Minutes of Exercise per Session Not on file 02/21/2023 Hunger Vital Sign Answer Date Recorded Within [...] place to sleep or slept in a [place] health care facility (including now)? No 02/21/2023 Comments Unknown Sex and Gender Information Value Date Recorded Sex Assigned at Not on file Legal Sex Female 7:13 PM EDT Gender Identity Not on file Sexual Orientation Not on file COVID-19 Exposure Response Date Recorded In the last 10 days, have yo u been in contact with someone who was confirmed or suspected to have Coronavirus/COVID-19? No / Unsure 02/21/2023 2:56 PM EDT documented as of this encounter Plan of Treatment Upcoming Encounters Date Type Department Care Team (Late st Contact Info) Description 02/10/2025 1:00 PM EDT Office Visit [facility] [address] [place] [address] Cristiane Duckworth MD [address] [place] [address] documented as of this encounter Procedures Procedure Name Priority Date/Time Associated Diagnosis Comments SCANNED LABS Routine 02/20/2023 11:35 AM EDT documented in this encounter Results * SCANNED LABS (02/20/2023 11:35 AM EDT) us Unknown Practice A LAB CHG PERFORMABLES Final Re sult documented in this encounter Visit Diagnoses Not on filedocumented in this encounter Care Teams Foreign Law Consultant Relationship Specialty Start Date End Date Gamal Mari MD [address] [place] [address] PCP - ACO Reach 01/17/23 Gamal Mari MD [address] [facility] 110 [place] [address] PCP - General Family Medicine 01/28/23 Emmie Dela Cruz, RN Registered Nurse Family Medicine 08/05/23 10/21/24 documented as of this encounter
--- OUTSIDE RECORDS SUMMARY | 2025-01-21 13:42 | XMS_ITS | Encounter Summary ---
Author Organization [facility] Address [address] [place] [address] Care Team Providers Care Training Intern Name Role Phone Gamal Mari MD Unavailable Gamal Mari MD Primary Care Provider [phone] Emmie Dela Cruz RN Unavailable [phone] Encounter Details Date Type Department Care Team (Late st Contact Info) Description 06/29/2024 Abstract [facility] 112 [facility] 110 [place] [address] Gamal Mari MD 112 [facility] 110 [place] [address] Social History Tobacco Use Types [...] and Family Not on file 08/05/2023 Attends Scientologist Services Not on file 08/05 Active Member [...] Recorded Patient Health Questionnaire-2 Score 0 10/21/2023 [facility] Occupat ional Health - [...] Visit [facility] [address] [place] [address] Cristiane Duckworth MD [address] [place] [address] documented as of this encounter Visit Diagnoses Not on filedocumented in this encounter Additional Health Concerns Assessment Noted Time PHQ-9 Depression Total Score: 0 10/21/19 24 10:00 AM EST documented as of this encounter Care Teams Training Intern Relationship Specialty Start Date End Date Gamal Mari MD [address] [place] [address] PCP - ACO Reach 01/17/23 Gamal Mrai MD [address] [place] [address] PCP - General Family Medicine 01/28/23 Emmie Dela Cruz, RN Registered Nurse Family Medicine 08/05/23 10/21/24 documented as of this encounter
--- OUTSIDE RECORDS SUMMARY | 2025-01-21 13:42 | XMS_ITS | Encounter Summary ---
Author Organization [facility] Address [address] [place] [address] Care Team Providers Care Media Executive Name Role Phone Gamal Mari MD Unavailable Gamal Mari MD Primary Care Provider [phone] Emmie Dela Cruz RN Unavailable [phone] Encounter Details Date Type Department Care Team (Late st Contact Info) Description 08/01/2023 Abstract [facility] [address] [facility] 110 [place] [address] Gamal Mari MD 112 [facility] 110 [place] [address] Social History Tobacco Use Types Packs/Day Years Used Date Smoking Tobacco: Every Day Cigarettes Smokeless Tobacco: Never Comments:11-20 cigs/day Alcohol Use [...] and Family Not on file 08/05/2023 Attends Anabaptist Services Not on file 08/05 Active Member [...] and heating? Not hard at all 02/21/2023 [facility] of Occupat ional Health - Occupational Stress [...] Visit [facility] [address] [place] [address] Cristiane Duckworth MD [address] [place] [address] documented as of this encounter Visit Diagnoses Not on filedocumented in this encounter Care Teams Media Executive Relationship Specialty Start Date End Date Gamal Mari MD [address] [facility] 110 [place] [address] PCP - ACO Reach 01/17/23 Gamal Mari MD [address] [place] [address] PCP - General Family Medicine 01/28/23 Emmie Dela Cruz, RN Registered Nurse Family Medicine 08/05/23 10/21/24 documented as of this encounter
--- OUTSIDE RECORDS SUMMARY | 2025-01-21 13:42 | XMS_ITS | Encounter Summary ---
Author Organization [facility] Address [address] [place] [address] Care Team Providers Care Production Manager Name Role Phone Gamal Mari MD Unavailable Gamal Mari MD Primary Care Provider [phone] Emmie Dela Cruz RN Unavailable [phone] Encounter Details Date Type Department Care Team (Late st Contact Info) Description 03/28/2023 Abstract [facility] [address] [facility] 110 [place] [address] Gamal Mari MD 112 [facility] 110 [place] [address] Social History Tobacco Use Types Packs/Day Years Used Date Smoking Tobacco: Every Day Cigarettes Smokeless Tobacco: Never Alcohol Use Standard Drinks/Week Comments Yes 0 (1 standard drink = 0.6 oz [...] often do you attend chur ch or voodoo services? Patient declined 02/21/2023 Do you belong to any clubs o r organizations such as taoist groups, unions, fraSupportie or athletic groups, or school groups? No [...] and heating? Not hard at all 02/21/2023 [facility] of Occupat ional Health - Occupational Stress [...] EDT Office Visit [facility] [address] [place] [address] Cristiane Duckworth MD [address] [place] [address] documented as of this encounter Visit Diagnoses Not on filedocumented in this encounter Care Teams Production Manager Relationship Specialty Start Date End Date Gamal Mari MD [address] [place] [address] PCP - ACO Reach 01/17/23 Gamal Mari MD [address] [place] [address] PCP - General Family Medicine 01/28/23 Emmie Dela Cruz, RN Registered Nurse Family Medicine 08/05/23 10/21/24 documented as of this encounter
--- OUTSIDE RECORDS SUMMARY | 2025-01-21 13:42 | XMS_ITS | Encounter Summary ---
Author Organization [facility] Address [address] [place] [address] Care Team Providers Care Hoop Punch Operator Helper Name Role Phone Gamal Mari MD Unavailable Gamal Mari MD Primary Care Provider [phone] Encounter Details Date Type Department Care Team (Latest Contact Info) Description 01/14/2025 Travel Social History Tobacco Use Types Packs/Day Years [...] and Family Not on file 08/05/2023 Attends Church Services Not on file 08/05 Active Member [...] Recorded Patient Health Questionnaire-2 Score 0 01/14/2025 [facility] - Occupational Stress Questionnaire Answer Date Recorded [...] place to sleep or slept in a alf (including now)? No 02/21/2023 Comments Unknown Sex and Gender Information Value Date Recorded Sex Assigned at Not on file Legal Sex Female 7:13 PM EDT Gender Identity Not on file Sexual Orientation Not on file documented as of this encounter Functional Status * Over the [...] PEPE GRAJEDA documented as of this encounter Plan of Treatment Upcoming Encounters Date Type Department Care Team (Late st Contact Info) Description 02/10/2025 1:00 PM EDT Office Visit [facility] [address] [place] [address] Cristiane Duckworth MD [address] [place] [address] documented as of this encounter Goals Goal Patient Goal Type Associated Problems Recent Progress Patient-Stated? Author Help patient manage antidepressant medication Care Plan Patient on antidepressant monitoring plan No Gamal Mari MD documented as of this encounter Visit Diagnoses Not on filedocumented in this encounter Additional Health Concerns Active Problems Noted Date Diagnosed Date Patient on antidepressant monitoring plan 2023 Assessment Noted Time PHQ-9 Depression Total Score: 0 10/21/19 24 10:00 AM EST documented as of this encounter Care Teams Hoop Punch Operator Helper Relationship Specialty Start Date End Date Gamal Mari MD [address] [place] [address] PCP - ACO Reach 01/17/23 Gamal Mari MD 112 [facility] 110 [place] [id number] PCP - General Family Medicine 01/28/23 documented as of this encounter
--- OUTSIDE RECORDS SUMMARY | 2025-01-21 13:42 | XMS_ITS | Encounter Summary ---
Author Organization [facility] Address [address] [place] [address] Care Team Providers Care Tongue And Groove Machine Operator Name Role Phone Gamal Mari MD Unavailable Gamal Mari MD Primary Care Provider [phone] Emmie Dela Cruz RN Unavailable [phone] Encounter Details Date Type Department Care Team (Late st Contact Info) Description 06/06/2023 Orders Only [facility] [address] [place] [phone] A, Unknown Practice [address] [place] [address] Social History Tobacco Use Types Packs/Day Years [...] 02/21/2023 How often do you attend chur or rastafarian services? Patient declined 02/21/2023 Do you belong to any clubs o r organizations such as hoahaoism groups, unions, fraCloudwords or athletic groups, or school groups? No [...] and heating? Not hard at all 02/21/2023 [facility] of Occupat ional Health - Occupational [...] place to sleep or slept in a residential (including now)? No 02/21/2023 Comments Unknown Sex [...] Visit [facility] [address] [place] [address] Cristiane Duckworth MD [address] [place] [address] documented as of this encounter Procedures Procedure Name Priority Date/Time Associated Diagnosis Comments MAMMOGRAM* Routine 06/04/2023 10:37 AM EDT documented in this encounter Results * MAMMOGRAM* (06/04/2023 10:37 AM EDT) Anatomical Region Laterality Modality Radiographic Ana Maria ging us Unknown Practice A IMG XR PROCEDURES Final Resul t documented in this encounter Visit Diagnoses Not on filedocumented in this encounter Care Teams Tongue And Groove Machine Operator Relationship Specialty Start Date End Date Gamal Mari MD [address] [facility] 110 [place] [address] PCP - ACO Reach 01/17/23 Gamal Mari MD [address] [place] [address] [address] [place] [id number] PCP - General Family Medicine 01/28/23 Emmie Dela Cruz, RN Registered Nurse Family Medicine 08/05/23 10/21/24 documented as of this encounter
--- OUTSIDE RECORDS SUMMARY | 2025-01-21 13:42 | XMS_ITS | Encounter Summary ---
Author Organization [facility] Address [address] [place] [address] Care Team Providers Care Machine Operator Hop Worker Name Role Phone Gamal Mari MD Unavailable Gamal Mari MD Primary Care Provider [phone] Emmie Dela Cruz RN Unavailable [phone] Encounter Details Date Type Department Care Team (Late st Contact Info) Description 12/30/2023 Abstract [facility] 112 [facility] 110 [place] [address] Gamal Mari MD 112 [facility] 110 [place] [address] Social History Tobacco Use Types [...] and Family Not on file 08/05/2023 Attends Roman Catholic Services Not on file 08/05 Active Member [...] Recorded Patient Health Questionnaire-2 Score 0 10/21/2023 [facility] of Occupat ional Health - Occupational [...] place to sleep or slept in a usp (including now)? No 02/21/2023 Comments Unknown Sex [...] Visit [facility] [address] [place] [address] Cristiane Duckworth MD [address] [place] [address] documented as of this encounter Visit Diagnoses Not on filedocumented in this encounter Additional Health Concerns Assessment Noted Time PHQ-9 Depression Total Score: 0 10/21/19 24 10:00 AM EST documented as of this encounter Care Teams Machine Operator Hop Worker Relationship Specialty Start Date End Date Gamal Mari MD [address] [place] [address] PCP - ACO Reach 01/17/23 Gamal Mari MD [address] [place] [address] PCP - General Family Medicine 01/28/23 Emmie Dela Cruz, RN Registered Nurse Family Medicine 08/05/23 10/21/24 documented as of this encounter
--- OUTSIDE RECORDS SUMMARY | 2025-01-21 13:42 | XMS_ITS | Encounter Summary ---
Author Organization [facility] Address [address] [place] [address] Care Team Providers Care Survey Research Associate Name Role Phone Gamal Mari MD Unavailable Gamal Mari MD Primary Care Provider [phone] Emmie Dela Cruz RN Unavailable [phone] Encounter Details Date Type Department Care Team (Late st Contact Info) Description 06/29/2024 Abstract [facility] 112 [facility] 110 [place] [address] Gamal Mari MD 112 [facility] 110 [place] [address] Social History Tobacco Use Types [...] and Family Not on file 08/05/2023 Attends Orthodoxy Services Not on file 08/05 Active Member [...] Recorded Patient Health Questionnaire-2 Score 0 10/21/2023 [facility] of Occupat ional Health - Occupational [...] place to sleep or slept in a longterm (including now)? No 02/21/2023 Comments Unknown Sex [...] Visit [facility] [address] [place] [address] Cristiane Duckworth MD [address] [place] [address] documented as of this encounter Visit Diagnoses Not on filedocumented in this encounter Additional Health Concerns Assessment Noted Time PHQ-9 Depression Total Score: 0 10/21/19 24 10:00 AM EST documented as of this encounter Care Teams Survey Research Associate Relationship Specialty Start Date End Date Gamal Mari MD [address] [place] [address] PCP - ACO Reach 01/17/23 Gamal Mari MD [address] [place] [address] PCP - General Family Medicine 01/28/23 Emmie Dela Cruz, RN Registered Nurse Family Medicine 08/05/23 10/21/24 documented as of this encounter
--- OUTSIDE RECORDS SUMMARY | 2025-01-21 13:42 | XMS_ITS | Encounter Summary ---
Author Organization [facility] Address [address] [place] [address] Care Team Providers Care Fashion Director Name Role Phone Gamal Mari MD Unavailable Gamal Mari MD Primary Care Provider [phone] Emmie Dela Cruz RN Unavailable [phone] Encounter Details Date Type Department Care Team (Late st Contact Info) Description 12/30/2023 Orders Only [facility] [address] [place] [address] Unallocated, Noms Provider, [address] [place], [place] [address] Social History Tobacco Use Types Packs/Day Years [...] and Family Not on file 08/05/2023 Attends Yarsanism Services Not on file 08/05 Active Member [...] Recorded Patient Health Questionnaire-2 Score 0 10/21/2023 [facility] of Occupat ional Health - Occupational [...] place to sleep or slept in a detention (including now)? No 02/21/2023 Comments Unknown Sex [...] Visit [facility] [address] [place] [address] Cristiane Duckworth MD [address] [place] [address] documented as of this encounter Procedures Procedure Name Priority Date/Time Associated Diagnosis Comments XR KNEE 4+ VIEWS RIGHT Routine 12/26/2023 10:22 AM EDT documented in this encounter Results * XR knee 4+ views right (12/26/2023 10:22 AM EDT) Anatomical Region Laterality Modality Lower Extremities, Knee Right [facility] Provider Unallocated MD WILSON XR PROCEDURES F inal Result documented in this encounter Visit Diagnoses Not on filedocumented in this encounter Additional Health Concerns Assessment Noted Time PHQ-9 Depression Total Score: 0 10/21/19 24 10:00 AM EST documented as of this encounter Care Teams Fashion Director Relationship Specialty Start Date End Date Gamal Mari MD 112 [facility] 110 [place] [address] PCP - ACO Reach 01/17/23 Gamal Mari MD 112 [facility] [address] [place], [place] [address] PCP - General Family Medicine 01/28/23 Emmie Deal Cruz, RN Registered Nurse Family Medicine 08/05/23 10/21/24 documented as of this encounter
--- OUTSIDE RECORDS SUMMARY | 2025-01-21 13:42 | XMS_ITS | Encounter Summary ---
Author Organization [facility] Address [address] [place] [address] Care Team Providers Care Director Human Services Name Role Phone Gamal Mari MD Unavailable Gamal Mari MD Primary Care Provider [phone] Emmie Dela Cruz RN Unavailable [phone] Encounter Details Date Type Department Care Team (Late st Contact Info) Description 06/23/2024 Abstract [facility] [address] [facility] 110 [place] [address] Gamal Mari MD 112 [facility] 110 [place] [address] Social History Tobacco Use Types [...] and Family Not on file 08/05/2023 Attends [employer] Services Not on file 08/05 Active Member [...] Recorded Patient Health Questionnaire-2 Score 0 10/21/2023 [facility] of Occupat ional Health [...] to sleep or slept in a senior living (including now)? No 02/21/2023 Comments Unknown Sex [...] Visit [facility] [address] [place] [address] Cristiane Duckworth MD [address] [place] [address] documented as of this encounter Visit Diagnoses Not on filedocumented in this encounter Additional Health Concerns Assessment Noted Time PHQ-9 Depression Total Score: 0 10/21/19 24 10:00 AM EST documented as of this encounter Care Teams Director Human Services Relationship Specialty Start Date End Date Gamal Mari MD [address] [place] [address] PCP - ACO Reach 01/17/23 Gamal Mari MD [address] [place] [address] PCP - General Family Medicine 01/28/23 Emmie Dela Cruz, RN Registered Nurse Family Medicine 08/05/23 10/21/24 documented as of this encounter
--- OUTSIDE RECORDS SUMMARY | 2025-01-21 13:42 | XMS_ITS | Encounter Summary ---
Author Organization [facility] Address [address] [place] [address] Care Team Providers Care Cork Pressing Machine Operator Name Role Phone Gamal Mari MD Unavailable Gamal Mari MD Primary Care Provider [phone] Encounter Details Date Type Department Care Team (Late st Contact Info) Description 01/14/2025 Bamboo flowsheet [facility] [address] [place] [address] Yulia Pollock, CRADLE PLACER [address] [place] [address] Social History Tobacco Use Types [...] Recorded Patient Health Questionnaire-2 Score 0 01/14/2025 [facility] of Occupat ional Health - [...] Visit [facility] [address] [place] [address] Cristiane Duckworth MD [address] [place] [address] documented as of this encounter Goals Goal [...] documented as of this encounter Care Teams Cork Pressing Machine Operator Relationship Specialty Start Date End Date Gamal Mari MD [address] [place] [address] [place] [address] PCP - ACO Reach 01/17/23 Gamal Mari MD [address] [place] [address] PCP - General Family Medicine 01/28/23 documented as of this encounter
--- OUTSIDE RECORDS SUMMARY | 2025-01-21 13:42 | XMS_ITS | Encounter Summary ---
Author Organization [facility] Address [address] [place] [address] Care Team Providers Care Ticket Manager Name Role Phone Gamal Mari MD Unavailable Gamal Mari MD Primary Care Provider [phone] Emmie Dela Cruz RN Unavailable [phone] Encounter Details Date Type Department Care Team (Late st Contact Info) Description 04/02/2023 Abstract [facility] [address] [place] 110 [place] [address] Gamal Mari MD 112 [facility] 110 [place] [address] Social History Tobacco Use Types [...] often do you attend chur ch or quaker services? Patient declined 02/21/2023 Do you belong to any clubs o r organizations such as gnosticism groups, unions, fraJoyTunes or athletic groups, or school groups? No [...] and heating? Not hard at all 02/21/2023 [facility] of Occupat ional Health - Occupational Stress [...] place to sleep or slept in a prison (including now)? No 02/21/2023 Comments Unknown Sex [...] Visit [facility] [address] [place] [address] Cristiane Duckworth MD [address] [place] [address] documented as of this encounter Visit Diagnoses Not on filedocumented in this encounter Care Teams Ticket Manager Relationship Specialty Start Date End Date Gamal Mari MD [address] [place] [address] PCP - ACO Reach 01/17/23 Gamal Mari MD [address] [place] [address] PCP - General Family Medicine 01/28/23 Emmie Dela Cruz, RN Registered Nurse Family Medicine 08/05/23 10/21/24 documented as of this encounter
--- OUTSIDE RECORDS SUMMARY | 2025-01-21 13:42 | XMS_ITS | Encounter Summary ---
Author Organization [facility] Address [address] [place] [address] Care Team Providers Care Mixer Operator Hot Metal Name Role Phone Gamal Mari MD Unavailable Gamal Mari MD Primary Care Provider [phone] Emmie Dela Cruz RN Unavailable [phone] Encounter Details Date Type Department Care Team (Late st Contact Info) Description 03/12/2024 Abstract [facility] 112 [facility] 110 [place] [id number] Gamal Mari MD 112 [facility] 110 [place] [address] Social History Tobacco Use Types [...] and Family Not on file 08/05/2023 Attends [employer] Services Not on file 08/05 Active Member [...] Recorded Patient Health Questionnaire-2 Score 0 10/21/2023 [facility] - Occupational [...] place to sleep or slept in a skilled nursing (including now)? No 02/21/2023 Comments Unknown Sex [...] Visit [facility] [address] [place] [address] Cristiane Duckworth MD [address] [place] [address] documented as of this encounter Visit Diagnoses Not on filedocumented in this encounter Additional Health Concerns Assessment Noted Time PHQ-9 Depression Total Score: 0 10/21/19 24 10:00 AM EST documented as of this encounter Care Teams Mixer Operator Hot Metal Relationship Specialty Start Date End Date Gamal Mari MD [address] [place] [address] PCP - ACO Reach 01/17/23 Gamal Mari MD [address] [place] [address] PCP - General Family Medicine 01/28/23 Emmie Dela Cruz, RN Registered Nurse Family Medicine 08/05/23 10/21/24 documented as of this encounter
--- OUTSIDE RECORDS SUMMARY | 2025-01-21 13:42 | XMS_ITS | Encounter Summary ---
Author Organization [facility] Address [address] [place] [address] Care Team Providers Care Director Of Patient Safety Name Role Phone Gamal Mari MD Unavailable Gamal Mari MD Primary Care Provider [phone] Emmie Dela Cruz RN Unavailable [phone] Encounter Details Date Type Department Care Team (Late st Contact Info) Description 08/01/2023 Abstract [facility] 112 [facility] 110 [place] [address] Gamal Mari MD 112 [facility] 110 [place] [address] Social History Tobacco Use Types [...] and Family Not on file 08/05/2023 Attends [employer] Not on file 08/05 Active Member [...] place to sleep or slept in a [facility] (including now)? No 02/21/2023 Comments Unknown Sex [...] Visit [facility] [address] [place] [address] Cristiane Duckworth MD [address] [place] [address] documented as of this encounter Visit Diagnoses Not on filedocumented in this encounter Care Teams Director Of Patient Safety Relationship Specialty Start Date End Date Gamal Mari MD [address] [facility] [address] [place] [address] PCP - ACO Reach 01/17/23 Gamal Mari MD [address] [place] [address] PCP - General Family Medicine 01/28/23 Emmie Dela Cruz, RN Registered Nurse Family Medicine 08/05/23 10/21/24 documented as of this encounter
--- OUTSIDE RECORDS SUMMARY | 2025-01-21 13:42 | XMS_ITS ---
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 Other Current Plans CYANOCOBALAMIN 1000 D1,29,57 - Q84D* Plan Start Date:03/13/2023 Plan Provider:Maikel Resendiz MD Linked Problems Anemia, unspecified typeMega loblastic anemia due to vitamin B12 deficiency Treatment Medications Current Day (Day 1 , Cycle 8 - Planned for 01/25/2025) Next Day (Day 29, Cycle 8 - Planned for 02/22/2025) No medications scheduled. No medications schedul ed. No medications scheduled. Past Treatment and Therapy Plans Treatment Summaries Ductal carcinoma in situ (DCIS) of breast* Treatment Summary and Survivorship Care Plan for Breast Cancer Provided by: Marietta Andre APRN.FABRIC COATING SUPERVISOR General Information Patient Name: Ivonne Del Castillo Patient : 1955 Health Care Providers Primary Care Provider: Dr. Gamal Mari Surgeon: Dr. Jonn Thompson Radiation Oncologist: Dr. Elzbieta Land Medical Oncologist: Dr. Mt Martinez Other Providers: Marietta Andre APRN.DAVID ; DARLENE Blanchard Treatment Summary Diagnosis Cancer Type/Histology Subtype: Right Breast Cancer- Upper Inner Quadrant Diagnosis Date (year): October 27, 2018 Receptors: Estrogen negative and Progesterone negative Stage: Not applicable Treatment Completed Surgery: Yes Surgery Date(s) (year): October 27, 2018; November 25, 2018 Surgical procedure/findings: Stereotactic biopsy; Right needle localized breast biopsy- Partial Mastectomy Lymph node removal: No Radiation: Yes Body area treated: Right Breast; Boost Tumor Bed 4,256 cGy in 16 fractions; 1000 cGy in 4 fractions Total: 5,256 cGy in 20 fractions End Date (year): February 17, 2019 (January 21, 2019 through February 17, 2019) Systemic Therapy (chemotherapy, hormonal therapy, other): No Treatment Ongoing Endocrine Treatment: No Persistent symptoms or side effects at completion of treatments: No Familial Cancer Risk Assessment Breast and or ovarian cancer in 1st or 2nd degree relatives: Yes- Mother breat cancer- 50's Received Genetic counseling: No Genetic testing: No Follow-up Care Plan Your follow-up care plan is design to inform you and primary care providers regarding the recommended and required follow-up, cancer screening and routine health maintenance that is needed to maintain optimal health. Possible late- and long-term effects that someone with this type of cancer and treatment may experience: Radiation skin changes It is important to remember that these symptoms can be due to other causes like diabetes or with normal age. If these or any other new symptoms occur bring these to attention of your health care provider. These symptoms should be brought to the attention of your provider: 1. Anything that represents a brand new symptom; 2. Anything that represents a persistent symptom; 3. Anything you are worried about that might be related to the cancer coming back. Please continue to see your primary care provider for all general health care recommended for a women your age such as routine immunizations, and routine non- breast cancer screening like colonoscopy or bone density exams. Consult with your health care provider about prevention and screening for bone loss using bone density tests. Schedule of clinical visits for cancer follow-up Follow-Up Item How often? Who's Responsible? Breast self-exam Monthly Patient Clinical breast exams Years from diagnosis 0-3 Every 3-6 months 3-5 Every 6 months Beyond 5 Annually Oncology Team (okay to alternate with oncology providers) Breast imaging (Mammogram unless otherwise indicated) Annually Medical Oncology Bone density (if on aromatase inhibitor or older than 65 years old) Every 2 years Medical oncology Cancer surveillance or other recommended related tests Coordinating Provider Test How Often Oncology Team Mammogram Annually CARPENTRY TEACHER or PCP Pap/pelvic exam As indicated by provider PCP Colonoscopy As indicated by provider PCP or Oncology Team- if on Aromatase Inhibitors Bone Density Every 2 years if on an aromatase inhibitor or as indicated by your provider. Breast cancer survivors may experience issues with the areas listed below. If you have any concernsin these or other areas, please speak with your doctors or nurses to find out how you can get help with them: anxiety or depression , emotional or mental health, fatigue, fertility, financial advice or assistance, insurance, memory or concentration loss, parenting, physicial functioning, school/work and sexual functioning A number of lifestyle/behaviors can affect your ongoing health, including the risk for the cancer coming back or developing another cancer. Discuss these recommendations with your doctor or nurse: alcohol use, diet, management of medications, management of other illnesses, physical activity, sun screen use, tobacco use/cessation and weight management (loss/gain) Resources you may be interested in: [email or web address] Applications Trainer [facility] [phone] Applications Trainer Ekg/Ecg Technician Art Therapy Women with Cancer Support Group- Meets at [address] [place] [address] Sarita Ward- From 4 PM to 5 PM- contact the social media senior associate for dates. Living with Cancer Support Group- Meets at [address] [place] [address] Sarita Ward- From 11:30 AM to 12:30 PM- Contact the social media senior associate for dates. Prepared by: Marietta Andre APRN.FABRIC COATING SUPERVISOR Delivered on: June 11, 2019 - This Survivorship Care Plan is a cancer treatment summary and follow-up plan is provided to you to keep with your health care records and to share with your primary care provider. - This summary is a brief record of major aspects of your cancer treatment. You can share your copywith any of your doctors or nurses. However, this is not a detailed or comprehensive record of yourcare.
--- OUTSIDE RECORDS SUMMARY | 2025-01-21 13:42 | XMS_ITS | Encounter Summary ---
Author Organization [facility] Address [address] [place] [address] Care Team Providers Care Temporary Staff Accountant Name Role Phone Gamal Mari MD Unavailable Gamal Mari MD Primary Care Provider [phone] Emmie Dela Cruz RN Unavailable [phone] Encounter Details Date Type Department Care Team (Late st Contact Info) Description 06/29/2024 Abstract [facility] 112 [facility] 110 [place] [address] Gamal Mari MD 112 [facility] 110 [place] [address] Social History Tobacco Use Types [...] Recorded Patient Health Questionnaire-2 Score 0 10/21/2023 [facility] - Occupational [...] Visit [facility] [address] [place] [address] Cristiane Duckworth MD [address] [place] [address] documented as of this encounter Visit Diagnoses Not on filedocumented in this encounter Additional Health Concerns Assessment Noted Time PHQ-9 Depression Total Score: 0 10/21/19 24 10:00 AM EST documented as of this encounter Care Teams Temporary Staff Accountant Relationship Specialty Start Date End Date Gamal Mari MD [address] [place] [address] PCP - ACO Reach 01/17/23 Gamal Mari MD [address] [place] [address] PCP - General Family Medicine 01/28/23 Emmie Dela Cruz, RN Registered Nurse Family Medicine 08/05/23 10/21/24 documented as of this encounter
--- OUTSIDE RECORDS SUMMARY | 2025-01-21 13:42 | XMS_ITS | Encounter Summary ---
Author Organization [facility] Address [address] [place] [address] Care Team Providers Care Skidway Worker Name Role Phone Gamal Mari MD Unavailable Gamal Mari MD Primary Care Provider [phone] Emmie Dela Cruz RN Unavailable [phone] Encounter Details Date Type Department Care Team (Late st Contact Info) Description 04/12/2023 Abstract [facility] 112 [facility] 110 [place] [address] Francisca Saenz PA 112 [facility] 110 [place] [address] Social History Tobacco Use Types Packs/Day Years Used Date Smoking Tobacco: Every Day Cigarettes Smokeless Tobacco: Never Tobacco Cessation:Ready to Q uit: Not Asked; Counseling Given: Not Answered Comments:11-20 cigs/day Alcohol Use Standard Drinks/Week Comments [...] How often do you attend chur or adventist services? Patient declined 02/21/2023 Do you belong to any clubs o r organizations such as restorationism groups, unions, fraternal or athletic groups, or [...] and heating? Not hard at all 02/21/2023 [facility] - Occupational Stress [...] 1:00 PM EDT Office Visit [facility] [address] [place] [address] Cristiane Duckworth MD [address] [place] [address] documented as of this encounter Visit Diagnoses Not on filedocumented in this encounter Care Teams Skidway Worker Relationship Specialty Start Date End Date Gamal Mari MD [address] [facility] [address] [place] [address] PCP - ACO Reach 01/17/23 Gamal Mari MD [address] [place] [address] PCP - General Family Medicine 01/28/23 Emmie Dela Cruz RN Registered Nurse Family Medicine 08/05/23 10/21/24 documented as of this encounter
--- OUTSIDE RECORDS SUMMARY | 2025-01-21 13:42 | XMS_ITS | Encounter Summary ---
Author Organization [facility] Address [address] [place] [address] Care Team Providers Care Dynamometer Repairer Name Role Phone Gamal Mari MD Unavailable Gamal Mari MD Primary Care Provider [phone] Emmie Dela Cruz RN Unavailable [phone] Encounter Details Date Type Department Care Team (Late st Contact Info) Description 01/23/2024 Orders Only [facility] [address] [place] [address] Unallocated, [facility] Provider, [address] [place], [place] [id number] Social History Tobacco Use Types Packs/Day Years [...] and Family Not on file 08/05/2023 Attends [employer] Services Not on file 08/05 Active Member [...] Visit [facility] [address] [place] [address] Cristiane Duckworth MD [address] [place] [address] documented as of this encounter Procedures Procedure Name Priority Date/Time Associated Diagnosis Comments SCANNED LABS Routine 01/22/2024 9:50 AM EDT documented in this encounter Results * SCANNED LABS (01/22/2024 9:50 AM EDT) us [facility] Provider Unallocated LAB CHG PERFORMABLE S Final Result documented in this encounter Visit Diagnoses Not on filedocumented in this encounter Additional Health Concerns Assessment Noted Time PHQ-9 Depression Total Score: 0 10/21/19 24 10:00 AM EST documented as of this encounter Care Teams Dynamometer Repairer Relationship Specialty Start Date End Date Gamal Mari MD [address] [place] [address] PCP - ACO Reach 01/17/23 Gamal Mari MD [address] [place], [place] [id number] PCP - General Family Medicine 01/28/23 Emmie Dela Cruz, YAA Registered Nurse Family Medicine 08/05/23 10/21/24 documented as of this encounter
--- OUTSIDE RECORDS SUMMARY | 2025-01-21 13:42 | XMS_ITS | Clinical Summary ---
Author Organization [facility] Healthcare Address [address] [place] [address] Care Team Providers Care Casing Crew Name Role Phone Gamal Mari MD Unavailable Gamal Mari MD Primary Care Provider [phone] Allergies Active Allergy Reactions Criticality Noted Date Comments Barium Sulfate Nausea And Vomiting 03/07/2023 Bupropion Unknown,Other 01/28/2023 Medications denosumab (Prolia) 60 MG/ML solution prefilled syringe Inject 60 mg under the skin. EVERY 6 MONTHS Active levothyroxine (Synthroid, Levoxyl) 50 MCG tablet Take 50 mcg by mouth in the morning. Take before meals. Mondays and it is increased to 75mg. Active Probiotic Product (ALIGN PO) Take 1 tablet by mouth in the morning. 3 Active Calcium-Phosphor us-Vitamin D (CALCIUM GUMMIES PO) Take 2 each by mouth Daily as needed 500mg gummies Active cyanocobalamin (Vitamin B-12) 1000 MCG/ML injection 1 mL Injection monthly Active sertraline (Zoloft) 50 MG tabletIndication s:Major depressive disorder, single episode, unspecified (CMS/HCC) TAKE 1 TABLET BY MOUTH EVERY DAY 90 tablet 4 4 Active diphenoxylate-at ropine (Lomotil) 2.5-0.025 MG tablet Take 2 tablets by mouth at noon and 2 tablets in the evening. 4 Active DULoxetine (Cymbalta) [address] Gutierrez ns:Seasonal affective disorder (CMS/HCC),Fibrom yalgia Take 1 capsule (60 mg) by mouth Daily Do not crush or chew. 4 08/10/20 25 Active tiZANidine (Zanaflex) 4 MG tabletIndication s:Back pain of lumbar region with sciatica Take 1 tablet (4 mg) by mouth every 8 (eight) hours if needed for muscle spasms 30 tablet 2 5 Active predniSONE (Deltasone) 10 MG tabletIndication s:Acute strain of neck muscle, initial encounter Take 4 tablets (40 mg) by mouth Daily for 4 days, THEN 3 tablets (30 mg) Daily for 4 days, THEN 2 tablets (20 mg) Daily for 4 days, THEN 1 tablet (10 mg) Daily for 4 days. 40 tablet 5 12/24/19 25 Active Problems Problem Noted Date Diagnosed Date Acute strain of neck muscle 12/07/2024 Assessment & Plan (12/07/2024 10:47 AM EDT): I discussed with patient that while on prednisone, do not take any NSAIDs like Ibuprofen, Naprosyn, Alleve or motrin. Watch for any side effects like abdominal pain and nausea. Take the prednisone with food or milk. Prednisone may increase appetite. While on prednisone, watch for any sugar elevations. 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 Seasonal affective disorder 07/07/2024 Assessment & Plan (08/10/2024 2:06 PM EST): Will wean off the Zoloft in 3-4 months Acute bilateral low back pain without sciatica 1 09/06/2023 Assessment & Plan (07/07/2024 3:16 PM EST): Consider gummys Myalgia 07/07/2024 Assessment & Plan (07/07/2024 3:15 PM EST): Resume Zanaflex at night F/U month Add Cymbalta Fibromyalgia 07/07/2024 Assessment & Plan (09/07/2024 11:46 AM EST): Substance P mediated On Duloxetine and Zanaflex Has tried gummies Assessment & Plan (08/10/2024 2:07 PM EST): Subjectively not much change excpet improved sleep Objectively less painful trigger points F/Up with pharmacy about recall Assessment & Plan (07/07/2024 3:16 PM EST): Consider Lyrica Primary osteoarthritis of left knee 05/12/2024 Fall at home 03/17/2024 Contusion of left knee 03/17/2024 Acute pain of left knee 03/17/2024 Assessment & Plan (03/17/2024 11:32 AM EDT): Knee sleeve Daytime somnolence 03/17/2024 Assessment & Plan (03/17/2024 11:35 AM EDT): Consider Sleep Apnea Test Wants to wait till f/up with Hematology/Oncology Fatigue 10/21/2023 Assessment & Plan (03/17/2024 11:33 AM EDT): Consider doing sleep apnea Lumbar disc herniation 10/21/2023 Spinal stenosis of lumbar re gion with neurogenic claudication 10/21/2023 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 deficien cy 03/13/2023 Loose stools 03/08/[address] of the abdomen 03/07/2023 Arthritis 03/07/2023 Family history of colon cancer 03/07/2023 History of colon polyps 03/07/2023 Internal hemorrhoids 03/07/2023 Pancreatic insufficiency 03/07/2023 Small intestinal bacterial overgrowth (SIBO) Vitamin B12 deficiency 03/07/2023 Anxiety 01/28/2023 Back pain of lumbar region with sciatica 023 Assessment & Plan (09/05/2023 1:20 PM EST): Have seen Dr. Alexander and eugene Sylvester N/S and still no improvement Is not interested in Pain specialist Declined Prednisone Carcinoma in situ of breast 01/28/2023 Chronic bronchitis with COPD (chronic obstructive pulmonary disease) 01/28/2023 Estrogen deficiency 01/28/2023 Diverticulosis 01/28/2023 History of partial mastectomy of right breast Hypertriglyceridemia 01/28/2023 Hypothyroid 01/28/2023 Thyroid enlargement 01/28/2023 Irritable bowel syndrome with diarrhea Assessment & Plan (09/07/2024 11:31 AM EST): On Lomotil Has history of IBS Most likely cause Low serum HDL 01/28/2023 Lumbar paraspinal muscle spasm 01/28/2023 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 Also reminded pt of potential s/e of the medication including osteonecrosis of jaw and atypical hip fractures. Reviewed importance of routine dental care. Advised pt of the need to continue with the treatment to avoid vertebral fractures from discontinuing the medication. Encouraged adequate calcium and vitamin D intake. Patient voiced understanding. Prolia given. Pt tolerated the injection well. Follow up in 6 months for next injection, or sooner should she have any concerns. Assessment & Plan (03/17/2024 11:22 AM EDT): Reminded the patient how Prolia works in the body to help with bone density. Also reminded pt of potential s/e of the medication including osteonecrosis of jaw and atypical hip fractures. Reviewed importance of routine dental care. Advised pt of the need to continue with the treatment to avoid vertebral fractures from discontinuing the medication. Encouraged adequate calcium and vitamin D intake. Patient voiced understanding. Prolia given. Pt tolerated the injection well. Follow up in 6 months for next injection, or sooner should she have any concerns. Assessment & Plan (09/05/2023 1:07 PM EST): Reminded the patient how Prolia works in the body to help with bone density. Also reminded pt of potential s/e of the medication including osteonecrosis of jaw and atypical hip fractures. Reviewed importance of routine dental care. Advised pt of the need to continue with the treatment to avoid vertebral fractures from discontinuing the medication. Encouraged adequate calcium and vitamin D intake. Patient voiced understanding. Prolia given. Pt tolerated the injection well. Follow up in 6 months for next injection, or sooner should she have any concerns. Other specified chronic obstructive pulmonary di sease 01/28/2023 Pulmonary nodules 01/28/2023 Sacroiliitis, not elsewhere classified Steatosis of liver 01/28/2023 Thyroid antibody positive 01/28/2023 Tobacco dependence 01/28/2023 Depression 03/07/2021 Abnormal mammogram 10/14/2018 Abnormal laboratory test result 08/22/2018 Postmenopausal 08/12/2018 Arrest of bone development or growth 12/20/2015 Diverticular disease of colon 12/20/2015 Resolved Problems Problem Noted Date Diagnosed Date Resolved Date Viral upper respiratory tract infection 09/05/2023 10/21/2023 Assessment & Plan (09/05/2023 1:17 PM EST): Supportive Care Increase fluids, Tylenol, Ibuporfen, Rashmi''''s vapor vapor rub, rashmi''''s humidifier. Watch for bacterial infections. Mucinex D Acute ear pain, right 09/05/20232023 Assessment & Plan (09/05/2023 1:16 PM EST): Patient was on ZPAK and is on Mucinex D Will call on Saturday if NB Epigastric pain 07/10/2023 10/21/2023 Anemia 03/13/2023 10/21/2023 Abdominal cramping 03/07/2023 Current smoker 03/07/2023 10/21/2023 Overview (03/07/2023): Added secondary to documentation in Social History. Lower abdominal pain 03/07/2023 024 Major depressive disorder, s jose m episode, unspecified 01/28/2023 10/21/2023 Polyp of colon 01/28/2023 10/21/2023 Chronic obstructive pulmonary disease 08/12/2018 10/21/2023 Encounters Date Type Department Care Team Description 01/14/2025 2:30 PM EDT Office Visit [facility] [address] [facility] [address] [place] [address] Yulia Pollock NP New onset headache (Primary Dx); Neck pain on left side; Bony abnormality 01/14/2025 Bamboo flowsheet [facility] [address] [facility] [address] [place] [address] Yulia Pollock NP 01/14/2025 Travel 12/08/2024 Results Follow-Up [facility] [address] [facility] [address] [place] [address] Francisca Rojas PA 12/07/2024 10:15 AM EDT Office Visit [facility] [address] [facility] [address] [place] [address] Gamal Mari MD Acute strain of neck muscle, initial encounter (Primary Dx); Back pain of lumbar region with sciatica; Sprain of metacarpophalangeal (MCP) joint of left thumb, initial encounter; Fibromyalgia 12/07/2024 10:00 AM EDT Ancillary Procedure [facility] [address] [facility] [address] [place] [id number] Sprain of metacarpophalangeal (MCP) joint of left thumb, initial encounter 12/07/2024 Travel 11/30/2024 Clinisync Result Encounter [facility] External Department Unsolicited Provider, Generic External Data from Last 3 Months Immunizations Immunization Administration Dates Next Due Zoster, live 06/28/2015 Family History Medical History Relation Name Comments Emphysema Father Arthritis Mother Dominga Wallace Diabetes Mother Dominga Wallace Heart disease Mother Dominga Wallace Heart failure Mother Dominga Wallace Cancer Sibling Hypertension Sibling Cancer Sister Yvette Barrios Relation Name Status Comments Father Mother Dominga Wallace Sibling Sister Yvette Barrios Social History Tobacco Use Types Packs/Day Years [...] and Family Not on file 08/05/2023 Attends [employer] Not on file 08/05 Active Member [...] Recorded Patient Health Questionnaire-2 Score 0 01/14/2025 [facility] Occupat ional [facility] - Occupational Stress Questionnaire Answer Date Recorded [...] on file Sexual Orientation Not on file Last Filed Vital Signs Vital Sign Reading Time Taken Comments Blood Pressure 116/68 01/14/2025 2:28 PM EDT Pulse 82 01/14/2025 2:28 PM EDT Temperature 37.3 C (99.1 F) 12/10/2023 10:39 AM EDT Respiratory Rate 16 01/14/2025 2:28 PM EDT Oxygen Saturation 97% 01/14/2025 2:28 PM EDT Inhaled Oxygen Concentration - - Weight 59.4 kg (131 lb) 01/14/2025 2:28 PM EDT Height 154.9 cm (5' 1 ) 01/14/2025 2:28 PM EDT Body Mass Index 24.75 01/14/2025 2:28 PM EDT Plan of Treatment Upcoming Encounters Date Type Department Care Team (Late st Contact Info) Description 02/10/2025 1:00 PM EDT Office Visit [facility] [address] [place] [address] Cristiane Duckworth MD [address] [place] [address] Health Maintenance Due Date Last Done Comments CT Colonography 1955 FIT-DNA 1955 FIT 1955 FOBT 1955 Sigmoidoscopy 1955 Colonoscopy 05/16/2031 05/16/2021, 11/16/2015 Colorectal Cancer Screening 05/16/2031 Mammogram Discontinued 06/08/2024, 05/26, 06/04/2023, Additional history exists Influenza Vaccine Discontinued Pneumococcal Vaccine: 65+ Years Discontinued Goals Goal Patient Goal Type Associated Problems Recent Progress Patient-Stated? Author Help patient manage antidepressant medication Care Plan Patient on antidepressant monitoring plan No Gamal Mari MD Procedures Procedure Name Priority Date/Time Associated Diagnosis Comments XR HAND 1-2 VIEWS LEFT Routine 12/07/2024 11:22 AM EDT Sprain of metacarpophalangeal (MCP) joint of left thumb, initial encounter [facility] FERRITIN SERPL-MCNC Routine 11/30/2024 1:43 PM EDT [facility] FOLATE SERPL-[facility] Routine 11/30/2024 1:43 PM EDT [facility] VIT B12 SERPL-MCNC Routine 11/30/2024 1:43 PM EDT [facility] IRON+TIBC PNL SERPL Routine 11/30/2024 1:43 PM EDT [facility] COMP METAB 2000 PNL SERPL Routine 11/30/2024 1:43 PM EDT [facility] CBC W AUTO DIFF BLD Routine 11/30/2024 1:43 PM EDT MM TOMOSYNTHESIS SCREENING BI 06/08/2024 9:07 AM EDT COLONOSCOPY Routine 11/16/2015 12:00 PM EDT from Last 3 Months or Most Recently Relevant to Health Maintenance Results * XR hand 1 or 2 views left (12/07/2024 11:22 AM EDT) Anatomical Region Laterality Modality Upper Extremities, Hand [facility] 12/07/2024 10:3 1 PM EDT Narrative 12/07/2024 10:31 PM EDT XR HAND 1-2 VIEWS LEFT Reason for exam: Left thumb pain Views: 4 Findings: The alignment is normal. No fracture, dislocation or other acute pathology is demonstrated. No soft tissue abnormalities are seen. Impression: Negative exam. Dictated on: 12/07/2024 8:30 PM This report has been electronically signed and approved by the interpreting Radiologist. Procedure Note Dago Barnett MD - 12/07/2024 XR HAND 1-2 VIEWS LEFT Reason for exam: Left thumb pain Views: 4 Findings: The alignment is normal. No fracture, dislocation or other acutepathology is demonstrated. No soft tissue abnormalities are seen. Impression: Negative exam. Dictated on: 12/07/2024 8:30 PM This report has been electronically signed and approved by theinterpreting Radiologist. us Gamal Mari MD IMG XR PROCEDURES Final Result * [facility] VIT B12 SERPL-MCNC (11/30/2024 1:43 PM EDT) [facility] VIT B12 SERPL-MCNC 578 232 - 1,245 pg/mL [facility] 11/30/2024 1:43 PM EDT 12/01/2024 1:19 AM EDT Narrative CLINISYNC - 12/01/2024 2:12 AM EDT Specimen Type: BLOOD SPECIMEN Ordering Facility: [facility] Address: [address] [place] [address] Original Ordering Provider: JAEL LUNSFORD Generic External Data Provider CLINISYNC F inal Result Performing Organization Address [facility] de [place] [address] * [facility] IRON+TIBC PNL SERPL (11/30/2024 1:43 PM EDT) [facility] IRON SERPL-MCNC 93 41 - 186 ug/dL [facility] TIBC SERPL-MCNC 362 232 - 386 ug/dL [facility] IRON/TIBC SERPL-SRTO 25.7 15.0 - 57.0 % [facility] 11/30/2024 1:43 PM EDT 12/01/2024 1:19 AM EDT Narrative CLINISYNC - 12/01/2024 1:51 AM EDT Specimen Type: BLOOD SPECIMEN Ordering Facility: [facility] Address: [address] [place] [address] Original Ordering Provider: JAEL LUNSFORD Generic External Data Provider CLINISYNC F inal Result Performing Organization Address [facility] [place] [address] * [facility] FOLATE SERPL-MCNC (11/30/2024 1:43 PM EDT) [facility] FOLATE SERPL-[facility]NC 19.3 >4.7 ng/mL [facility] 11/30/2024 1:43 PM EDT 12/01/2024 1:19 AM EDT Narrative CLINISYNC - 12/01/2024 2:12 AM EDT Specimen Type: BLOOD SPECIMEN Ordering Facility: [facility] Address: [address] [place] [address] Original Ordering Provider: JAEL LUNSFORD us Generic External Data Provider ELIASISYNC F inal Result Performing Organization Address [facility] Co de Phone Number LUIS [facility] [address] [place], [place] [id number] * [facility] FERRITIN SERPL-MCNC (11/30/2024 1:43 PM EDT) [facility] FERRITIN SERPL-MCNC 27.4 14.7 - 205.1 ng/mL [facility] 11/30/2024 1:43 PM EDT 12/01/2024 1:19 AM EDT Narrative CLINISYNC - 12/01/2024 8:53 AM EDT Specimen Type: BLOOD SPECIMEN Ordering Facility: [facility] Address: [address] [place] [address] Original Ordering Provider: JAEL LUNSFORD Generic External Data Provider HIPOLITONC F inal Result Performing Organization Address [facility] de Phone Number LUIS [facility] [address] [place] [phone] * (ABNORMAL) [facility] CBC W AUTO DIFF BLD (11/30/2024 1:43 PM EDT) Pathologist [facility] WBC # BLD AUTO 6.57 3.70 - 11.00 k/uL [facility] RBC # BLD AUTO 4.55 3.90 - 5.20 m/uL [facility] HGB BLD-MCNC 12.9 11.5 - 15.5 g/dL [facility] HCT VFR BLD AUTO 39.8 36.0 - 46.0 % [facility] MCV RBC AUTO 87.5 80.0 - 100.0 fL [facility]CF [facility] MCH RBC QN AUTO 28.4 26.0 - 34.0 pg [facility] MCHC RBC AUTO-MCNC 32.4 30.5 - 36.0 g/dL [facility] RDW RBC-RTO 14.6 11.5 - 15.0 % [facility] PLATELET # BLD AUTO 223 150 - 400 k/uL [facility] PMV BLD AUTO 8.8(L) 9.0 - 12.7 fL [facility] NEUTROPHILS/LEUK NFR BLD AUTO 50.4 % [facility] NEUTROPHILS # BLD AUTO 3.32 1.45 - 7.50 k/uL [facility] LYMPHOCYTES/LEUK NFR BLD AUTO 34.1 % [facility] LYMPHOCYTES # BLD AUTO 2.24 1.00 - 4.00 k/uL [facility] MONOCYTES/LEUK NFR BLD AUTO 11.0 % [facility] MONOCYTES # BLD AUTO 0.72 <0.87 k/uL [facility] EOSINOPHIL/LEUK NFR BLD AUTO 3.2 % [facility]CF EOSINOPHIL # BLD AUTO 0.21 <0.46 k/uL [facility] BASOPHILS/LEUK NFR BLD AUTO 0.8 % [facility] BASOPHILS # BLD AUTO 0.05 <0.11 k/uL [facility] IMM GRANULOCYTES/LEUK NFR BLD AUTO 0.5 % [facility] IMM GRANULOCYTES # BLD AUTO 0.03 <0.10 k/uL [facility] NRBC/100 WBC BLD-RTO 0.0 /100 WBC [facility] NRBC # BLD AUTO <0.01 <0.01 k/uL [facility] DIFFERENTIAL METHOD BLD Auto [facility] 11/30/2024 1:43 PM EDT 11/30/2024 1:43 PM EDT Narrative CLINISYNC - 11/30/2024 1:47 PM EDT Specimen Type: BLOOD SPECIMEN Ordering Facility: [facility] Address: [address] [place] [address] Original Ordering Provider: JAEL LUNSFORD us Generic External Data Provider LUIS F inal Result CLINISYNC [facility] [address] [place] [address] * (ABNORMAL) [facility] COMP METAB 2000 PNL SERPL (11/30/2024 1:43 PM EDT) [facility] PROT SERPL-MCNC 7.3 6.3 - 8.0 g/dL [facility] ALBUMIN SERPL-MCNC 4.3 3.9 - 4.9 g/dL [facility] CALCIUM SERPL-MCNC 10.3(H) 8.5 - 10.2 mg/dL CCF [facility] BILIRUB SERPL-MCNC 0.3 0.2 - 1.3 mg/dL [facility] ALP SERPL-CCNC 60 34 - 123 U/L [facility] AST SERPL-CCNC 18 13 - 35 U/L [facility] ALT SERPL-CCNC 15 7 - 38 U/L CCF [facility] GLUCOSE SERPL-MCNC 87 74 - 99 mg/dL [facility] Comment: The [place] Diabetes Association (ADA) provides guidance for cutoff [...] Standards of Medical Care in Diabetes 2016, [place] [employer] Association. Diabetes Care. 2016.39(Suppl 1). [facility] BUN SERPL-MC[facility] 13 7 - 21 mg/dL [facility] CREAT SERPL-MCNC 0.65 0.58 - 0.96 mg/dL C[facility] SODIUM SERPL-SCNC 141 136 - 144 mmol/L CCF [facility] POTASSIUM SERPL-SCNC 4.1 3.7 - 5.1 mmol/L CCF [facility] CHLORIDE SERPL-SCNC 102 98 - 107 mmol/L CCF [facility] CO2 SERPL-SCNC 27 22 - 30 mmol/L CCF [facility] ANION GAP SERPL-SCNC 12 8 - 15 mmol/L [facility] CREATININE + EGFR PNL SERPLBLD 94 >=60 mL/min/1. 73m??? [facility] Comment:Estimated Glomerular Filtration Rate (eGFR) is calculated using the 2020 CKD-EPI creatinine equation. This equation utilizes serum creatinine, sex, and age as parameters. The creatinine assay has traceable calibration to isotope dilution- mass spectrometry. Refer to KDIGO guidelines for clinical interpretation. In patients with unstable renal function, e.g. those with acute kidney injury, the eGFR may not accurately reflect actual GFR. 11/30/2024 1:43 PM EDT 11/30/2024 1:43 PM EDT Narrative CLINISYNC - 11/30/2024 2:29 PM EDT Specimen Type: BLOOD SPECIMEN Ordering Facility: [facility] Address: [address] [place] [address] Original Ordering Provider: JAEL LUNSFORD us Generic External Data Provider CLINCHARY F inal Result Performing Organization Address City/State/[facility] Co de Phone Number CLINCHARY [facility] [address] [place] [address] * MM TOMOSYNTHESIS SCREENING BI (06/08/2024 9:07 AM EDT) Anatomical Region Laterality Modality Other 06/08/2024 9:07 AM EDT Narrative 06/08/2024 9:08 AM EDT The [address] [address] Mammography Report Signed Patient: GINNY CESPEDES MR#: [id number] : 1955 Acct:[id number] Age/Sex: 69 / F ADM Date: 06/05/24 Loc: MAMMO Attending Dr: FRANCISCA ROJAS Ordering Physician: FRANCISCA ROJAS Results: Date of Service: 06/05/24 Follow Up: Procedure(s): MM tomosynthesis screening BI Accession Number(s): [id number] cc: FRANCISCA ROJAS Patient Name: GINNY CESPEDES MR#: [id number] : 1955 Exam Date: 06/05/2024 Ordering Doctor: DR FRANCISCA ROJAS PA RADIOLOGY REPORT PROCEDURE: MM TOMOSYNTHESIS SCREENING [...] colon cancer at age 52. LOCATION: [facility] BREAST COMPOSITION: The breasts are extremely dense, [...] M.D. Signed By: 06/08/24907 DD/ 6 TD/TT: Bellmaker: Procedure Note Radiology, Radiologist, - 06/08/2024 [place] [address] Mammography Report Signed Patient: GINNY CESPEDES AMR#: [id number] : 1955cct:[id number] Age/Sex: 69 / FADM Date: 06/05/24 Loc: MAMMO Attending Dr: FRANCISCA ROJAS Ordering Physician: FRANCISCA ROJAS MResults: Date of Service: 06/05/24Follow Up: Procedure(s): MM tomosynthesis screening BI Accession Number(s): [id number] cc: FRANCISCA ROJAS Patient Name: GINNY CESPEDES MR#: [id number] : 1955 Exam Date: 06/05/2024 Ordering Doctor: DR FRANCISCA ROJAS PA RADIOLOGY REPORT PROCEDURE: MM TOMOSYNTHESIS SCREENING [...] colon cancer at age 52. LOCATION: [facility] BREAST COMPOSITION: The breasts are extremely dense, [...] Melton M.D. Signed By:06/08/24907 DD/ 6 TD/TT: Bellmaker: Francisca COLON CLINISYNC IMAGING Final Result * Colonoscopy (11/16/2015 12:00 PM EDT) Anatomical Region Laterality Modality Endoscopy 11/16/2015 12:0 0 PM EDT Narrative 11/16/2015 12:00 PM EDT PERFORMED AT [facility] LOCATION:[id number] polyp, internal hemorrhage Procedure Note CONVERSION, GENERIC - 01/10/2023 PERFORMED AT [facility] LOCATION:[id number] polyp, internal hemorrhage Gamal Mari MD ENDOSCOPY PROCEDURE ORDERABLES F inal Result from Last 3 Months or Most Recently Relevant to Health Maintenance Additional Health Concerns Active Problems Noted Date Diagnosed Date Patient on antidepressant monitoring plan 2023 Insurance MEDICARE MEDICAL TOA [employer] Care Teams Casing Crew Relationship Specialty Start Date End Date Gamal Mari MD [address] [address] PCP - ACO Reach 01/17/23 Gamal Mari MD [address] [facility] [address] [place] [address] PCP - General Family Medicine 01/28/23
--- OUTSIDE RECORDS SUMMARY | 2025-01-21 13:42 | XMS_ITS | Encounter Summary ---
Author Organization [facility] Address [address] [place] [address] Care Team Providers Care Bushing And Broach Operator Name Role Phone Gamal Mari MD Unavailable Gamal Mari MD Primary Care Provider [phone] Emmie Dela Cruz RN Unavailable [phone] Encounter Details Date Type Department Care Team (Late st Contact Info) Description 06/06/2023 Clinisync Result Encounter [facility] External Department Unsolicited Francisca Saenz, PA [address] [facility] 110 [place] [address] Social History Tobacco Use Types Packs/Day Years [...] often do you attend chur ch or samaritan services? Patient declined 02/21/2023 Do you belong to any clubs o r organizations such as alevism groups, unions, fraJust Soles or athletic groups, or school groups? No [...] and heating? Not hard at all 02/21/2023 [facility] of Occupat ional Health - Occupational Stress [...] Visit [facility] [address] [place] [address] Cristiane Duckworth MD [address] [place] [address] documented as of this encounter Procedures Procedure Name Priority Date/Time Associated Diagnosis Comments MM TOMOSYNTHESIS SCREENING BI 06/06/2023 8:25 AM EDT documented in this encounter Results * MM TOMOSYNTHESIS SCREENING BI (06/06/2023 8:25 AM EDT) Anatomical Region Laterality Modality Other 06/06/2023 8:25 AM EDT Narrative 06/06/2023 8:25 AM EDT The [address] [address] Mammography Report Signed Patient: Ginny Del Castillo MR#: [id number] : 1955 Acct:[id number] Age/Sex: 68 / F ADM Date: 06/04/23 Loc: MAMMO Attending Dr: FRANCISCA SAENZ Ordering Physician: FRANCISCA SAENZ Results: Date of Service: 06/04/23 Follow Up: Procedure(s): MM tomosynthesis screening BI Accession Number(s): [id number] cc: FRANCISCA SAENZ Patient: GINNY DEL CASTILLO Exam Date: 06/04/2023 : 1955 Gender:F Ordering : DR FRANCISCA SAENZ PA Admission #: [id number] Family : Order #: [id number] CLICK HERE TO VIEW EXAM RADIOLOGY REPORT PROCEDURE: MM TOMOSYNTHESIS SCREENING BI COMPARISON: MG MAMM DIAGNOSTIC 3D TAMMY CAD, 05/29/2022. MG MAMM DIAGNOSTIC 3D TAMMY CAD, 05/26/2021. MG MAMM RT DIAG W CAD, 05/20/2020. MG MAMM SCREEN TAMMY W CAD, 10/09/2017. INDICATIONS: Screening Calculator Name NCI Breast Cancer Risk Assessment Tool 5 Year Breast Cancer Risk n/a% Lifetime Breast Cancer Risk n/a% Personal Breast Cancer Yes, DCIS right breast with radiation 2018 Personal Ovarian Cancer No Treatments Radiation Family Cancers Mother with breast cancer at age 59; Sister with colon cancer at age 54. LOCATION: The [facility] BREAST COMPOSITION: Extremely dense, which lowers the sensitivity of mammography. FINDINGS: DIAGNOSTIC CATEGORY 2--BENIGN FINDING: RIGHT BREAST: No significant suspicious finding. Stable biopsy marker clip posterior upper inner quadrant. No significant change has occurred. LEFT BREAST: No significant suspicious finding. No significant change has occurred. RECOMMENDATIONS: ROUTINE MAMMOGRAM AND CLINICAL EVALUATION IN 12 MONTHS. PLEASE NOTE: A NORMAL MAMMOGRAM DOES NOT EXCLUDE THE POSSIBILITY OF BREAST CANCER. A CLINICALLY SUSPICIOUS PALPABLE LUMP SHOULD BE BIOPSIED. Dictated by: Bill Godoy M.D. on 06/06/2023 at 08:22 Approved by: Bill Godoy M.D. on 06/06/2023 at 08:25 Dictated By: Bill Godoy M.D. Signed By: 06/06/2327 DD/ 4 TD/TT: Certified Personal Chef: Procedure Note Radiology, Radiologist, - 06/06/[address] [address] Mammography Report Signed Patient: Ginny Del Castillo AMR#: [id number] : 1955cct:[id number] Age/Sex: 68 / FADM Date: 06/04/23 Loc: MAMMO Attending Dr: FRANCISCA SAENZ Ordering Physician: FRANCISCA SAENZ MResults: Date of Service: 06/04/23Follow Up: Procedure(s): MM tomosynthesis screening BI Accession Number(s): [id number] cc: FRANCISCA SAENZ Patient: GINNY DEL CASTILLO Exam Date: 06/04/2023 : 1955 Gender:F Ordering : DR FRANCISCA SAENZ PA Admission #: [id number] Family : Order #: [id number] CLICK HERE TO VIEW EXAM RADIOLOGY REPORT PROCEDURE: MM TOMOSYNTHESIS SCREENING BI COMPARISON: MG MAMM DIAGNOSTIC 3D TAMMY CAD, 05/29/2022. MG MAMMDIAGNOSTIC 3D TAMMY CAD, 05/26/2021. MG MAMM RT DIAG W CAD, 05/20/2020. MG MAMM SCREENBIL W CAD, 10/09/2017. INDICATIONS: Screening Calculator Name NCI Breast Cancer Risk Assessment Tool 5 Year Breast Cancer Risk n/a% Lifetime Breast Cancer Risk n/a% Personal Breast Cancer Yes, DCIS right breast with radiation 2019 Personal Ovarian Cancer No Treatments Radiation Family Cancers Mother with breast cancer at age 59; Sister with colon cancer at age 54. LOCATION: The [facility] BREAST COMPOSITION: Extremely dense, which lowers the sensitivity of mammography. FINDINGS: DIAGNOSTIC CATEGORY 2--BENIGN FINDING: RIGHT BREAST: No significant suspicious finding. Stable biopsy markerclip posterior upper inner quadrant. No significant change has occurred. LEFT BREAST: No significant suspicious finding. No significant changehas occurred. RECOMMENDATIONS: ROUTINE MAMMOGRAM AND CLINICAL EVALUATION IN 12 MONTHS. PLEASE NOTE: A NORMAL MAMMOGRAM DOES NOT EXCLUDE THE POSSIBILITY OFBREAST CANCER. A CLINICALLY SUSPICIOUS PALPABLE LUMP SHOULD BE BIOPSIED. Dictated by: Bill Godoy M.D. on 06/06/2023 at 08:22 Approved by: Bill Godoy M.D. on 06/06/2023 at 08:25 Dictated By: Bill Godoy M.D. Signed By:06/06/23826 DD/ TD/TT: Certified Personal Chef: Francisca COLON [facility] Final Result documented in this encounter Visit Diagnoses Not on filedocumented in this encounter Care Teams Bushing And Broach Operator Relationship Specialty Start Date End Date Gamal Mari MD [address] [facility] 110 [place] [address] PCP - ACO Reach 01/17/23 Gamal Mari MD [address] [facility] 110 [place] [address] PCP - General Family Medicine 01/28/23 Emmie Dela Cruz, RN Registered Nurse Family Medicine 08/05/23 10/21/24 documented as of this encounter
--- OUTSIDE RECORDS SUMMARY | 2025-01-21 13:42 | XMS_ITS | Encounter Summary ---
Author Organization [facility] Address [address] [place] [address] Care Team Providers Care Legal Service Specialist Name Role Phone Gamal Mari MD Unavailable Gamal Mari MD Primary Care Provider [phone] Encounter Details Date Type Department Care Team (Late st Contact Info) Description 12/08/2024 Results Follow-Up [facility] FM [address] [facility] 110 [place] [id number] Francisca Saenz PA [address] [place], [place] [address] Social History Tobacco Use Types Packs/Day Years [...] and Family Not on file 08/05/2023 Attends Mormon Services Not on file 08/05 Active Member [...] Date Recorded Patient Health Questionnaire-2 Score 0 12/07/2024 [facility] Occupat ional Health - [...] place to sleep or slept in a long-term (including now)? No 02/21/2023 Comments Unknown Sex [...] PM EDT Office Visit [facility] [address] [place] [address] Cristiane Duckworth MD [address] [place] [address] documented as of this encounter Goals Goal [...] documented as of this encounter Care Teams Legal Service Specialist Relationship Specialty Start Date End Date Gamal Mari MD [address] [facility] 110 [place] [address] PCP - ACO Reach 01/17/23 Gamal Mari MD [address] [place] [address] PCP - General Family Medicine 01/28/23 documented as of this encounter
--- OUTSIDE RECORDS SUMMARY | 2025-01-21 13:42 | XMS_ITS | Encounter Summary ---
Author Organization [facility] Address [address] [place] [address] Care Team Providers Care Enrobing Machine Feeder Name Role Phone Gamal Mari MD Unavailable Gamal Mari MD Primary Care Provider [phone] Emmie Dela Cruz RN Unavailable [phone] Encounter Details Date Type Department Care Team (Late st Contact Info) Description 06/12/2023 Abstract [facility] [address] [facility] 110 [place] [address] Gamal Mari MD 112 [facility] 110 [place] [address] Social History Tobacco Use Types [...] week 02/21/2023 How often do you attend [facility] or druze services? Patient declined 02/21/2023 Do you belong to any clubs o r organizations such as worship groups, unions, framSilica or athletic groups, or school groups? No [...] and heating? Not hard at all 02/21/2023 [facility] of Occupat ional Health - Occupational Stress [...] place to sleep or slept in a care home (including now)? No 02/21/2023 Comments Unknown [...] Visit [facility] [address] [place] [address] Cristiane Duckworth MD [address] [place] [address] documented as of this encounter Visit Diagnoses Not on filedocumented in this encounter Care Teams Enrobing Machine Feeder Relationship Specialty Start Date End Date Gamal Mari MD [address] [facility] 110 [place] [address] PCP - ACO Reach 01/17/23 Gamal Mari MD [address] [facility] 110 [place] [address] PCP - General Family Medicine 01/28/23 Emmie Dela Cruz, RN Registered Nurse Family Medicine 08/05/23 10/21/24 documented as of this encounter
--- OUTSIDE RECORDS SUMMARY | 2025-01-21 13:42 | XMS_ITS | Encounter Summary ---
Author Organization [facility] Address [address] [place] [address] Care Team Providers Care Competitive Shopper Name Role Phone Gamal Mari MD Unavailable Gamal Mari MD Primary Care Provider [phone] Emmie Dela Cruz RN Unavailable [phone] Encounter Details Date Type Department Care Team (Late st Contact Info) Description 06/23/2024 Abstract [facility] [address] [facility] 110 [place] [address] Gamal Mari MD 112 [facility] 110 [place] [address] Social History Tobacco Use Types [...] and Family Not on file 08/05/2023 Attends Cheondoism Services Not on file 08/05 Active Member [...] Patient Health Questionnaire-2 Score 0 10/21/2023 [facility] of Occupat ional Health - Occupational [...] Visit [facility] [address] [place] [address] Cristiane Duckworth MD [address] [place] [address] documented as of this encounter Visit Diagnoses Not on filedocumented in this encounter Additional Health Concerns Assessment Noted Time PHQ-9 Depression Total Score: 0 10/21/19 24 10:00 AM EST documented as of this encounter Care Teams Competitive Shopper Relationship Specialty Start Date End Date Gamal Mari MD [address] [place] [address] PCP - ACO Reach 01/17/23 Gamal Mari MD [address] [place] [address] PCP - General Family Medicine 01/28/23 Emmie Dela Cruz, RN Registered Nurse Family Medicine 08/05/23 10/21/24 documented as of this encounter
--- OUTSIDE RECORDS SUMMARY | 2025-01-21 13:42 | XMS_ITS | Encounter Summary ---
Author Organization [facility] Address [address] [place] [address] Care Team Providers Care Lace Cutter Name Role Phone Gamal Mari MD Unavailable Gamal Mari MD Primary Care Provider [phone] Emmie Dela Cruz RN Unavailable [phone] Encounter Details Date Type Department Care Team (Late st Contact Info) Description 07/28/2024 Abstract [facility] 112 [facility] 110 [place] [address] Gamal Mari MD 112 [facility] 110 [place] [address] Social History Tobacco Use Types [...] Recorded Patient Health Questionnaire-2 Score 0 10/21/2023 [facility] of Occupat ional Health - Occupational [...] Visit [facility] [address] [place] [address] Cristiane Duckworth MD [address] [place] [address] documented as of this encounter Goals Goal [...] documented as of this encounter Care Teams Lace Cutter Relationship Specialty Start Date End Date Gamal Mari MD [address] [place] [address] PCP - ACO Reach 01/17/23 Gamal Mari MD [address] [place] [address] PCP - General Family Medicine 01/28/23 Emmie Dela Cruz, RN Registered Nurse Family Medicine 08/05/23 10/21/24 documented as of this encounter
--- OUTSIDE RECORDS SUMMARY | 2025-01-21 13:42 | XMS_ITS | Encounter Summary ---
Author Organization [facility] Address [address] [place] [address] Care Team Providers Care Quality Control Auditor Name Role Phone Gamal Mair MD Unavailable Gamal Mari MD Primary Care Provider [phone] Emmie Dela Cruz RN Unavailable [phone] Encounter Details Date Type Department Care Team (Late st Contact Info) Description 07/31/2023 Clinisync Result Encounter [facility] External Department Unsolicited Provider, Generic External Data Social History Tobacco Use Types Packs/Day Years [...] How often do you attend chur or baptist services? Patient declined 02/21/2023 Do you belong [...] and heating? Not hard at all 02/21/2023 [facility] of Occupat ional Health - Occupational [...] place to sleep or slept in a fdc (including now)? No 02/21/2023 Comments Unknown Sex [...] Visit [facility] [address] [place] [address] Cristiane Duckworth MD [address] [place] [address] documented as of this encounter Procedures Procedure Name Priority Date/Time Associated Diagnosis Comments ECG01 07/31/2023 3:22 PM EST documented in this encounter Results * ECG01 (07/31/2023 3:22 PM EST) Anatomical Region Laterality Modality Other 07/31/2023 3:22 PM EST Narrative 08/30/2023 9:43 AM EST Ventricular Rate : 148 BPM Atrial Rate : 150 BPM QRS Duration : 112 ms Q-T Interval : 308 ms QTC Calculation(Bazett) : 483 ms Calculated R Rentz : 53 degrees Calculated T Rentz : 74 degrees SUPRAVENTRICULAR TACHYCARDIA WITH SHORT RP INTERVAL, CONSIDER AVNRT ABNORMAL ECG Confirmed by CAITIE LAND MD ([id number]) on 08/30/2023 9:42:57 AM NAME : IVONNE DEL CASTILLO PID : [id number] : 1955 Gender : Female Race : ORD : Procedure Date : Jul 31 2023 15:22:43 Edit Date : Aug 30 2023 09:43:01 Diagnosis: SUPRAVENTRICULAR TACHYCARDIA WITH SHORT RP INTERVAL, CONSIDER AVNRT ABNORMAL ECG Confirmed by CAITIE LAND MD ([id number]) on 08/30/2023 9:42:57 AM Test Reason : Location : 539 : [facility] [place] By : CAITIE LAND MD Edited By : CAITIE LAND MD Referred By : JAEL LUNSFORD Acquired by : , Procedure Note Radiology, Radiologist, MD - 08/30/2023 Ventricular Rate : 148 BPM Atrial Rate : 150 BPM QRS Duration : 112 ms Q-T Interval : 308 ms QTC Calculation(Bazett) : 483 ms Calculated R Rentz : 53 degrees Calculated T Rentz : 74 degrees SUPRAVENTRICULAR TACHYCARDIA WITH SHORT RP INTERVAL, CONSIDER AVNRT ABNORMAL ECG Confirmed by CAITIE LAND MD ([id number]) on 08/30/2023 9:42:57 AM NAME : IVONNE DEL CASTILLO PID : [id number] : 1955 Gender : Female Race : ORD : Procedure Date : Jul 31 2023 15:22:43 Edit Date : Aug 30 2023 09:43:01 Diagnosis: SUPRAVENTRICULAR TACHYCARDIA WITH SHORT RP INTERVAL, CONSIDERAVNRT ABNORMAL ECG Confirmed by CAITIE LAND MD ([id number]) on 08/30/2023 9:42:57 AM Test Reason : Location : 539 : [facility] [place] Overread By : CAITIE LAND MD Edited By : CAITIE LAND MD Referred By : JAEL LUNSFORD Acquired by : , Generic External Data Provider [facility] Final Result documented in this encounter Visit Diagnoses Not on filedocumented in this encounter Care Teams Quality Control Auditor Relationship Specialty Start Date End Date Gamal Mari MD [address] [facility] 110 [place] [address] PCP - ACO Reach 01/17/23 Gamal Mari MD [address] [place] [address] PCP - General Family Medicine 01/28/23 Emmie Dela Cruz, RN Registered Nurse Family Medicine 08/05/23 10/21/24 documented as of this encounter
--- NOTE | 2025-01-21 13:43 | CT_ITS ---
The [address] [address] Patient Name: GINNY CESPEDES MRN: [id number] date: 1955 Sex: F Assigned Patient Location: CT Current Patient Location: CT Accession/Order Number: [id number] Exam Date: 01/21/2025 14:33 Report Date: 01/21/2025 14:37 At the request of: AGGIE PRINCE Procedure: CT head/brain wo con CT head/brain wo con 01/21/2025 2:08 PM SIGNS AND SYMPTOMS: ^New Onset Headache, Left Side Neck Pain TECHNIQUE:Multi-detector CT axial slices of the brain were obtained without IV contrast. CT was performed with one or more of the following dose reduction techniques: Automated exposure control, adjustment of the mA and/or kV according to patient size, or use of iterative reconstruction technique. COMPARISON: None. FINDINGS: There is no shift of the midline structures, acute intracranial bleeding, mass effects, or evidence of acute ischemia. There is periventricular hypoattenuation. 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 Atherosclerotic changes are noted in the intracranial segments of the internal carotid arteries. The ventricular system is normal in size. The brainstem and the cerebellum are unremarkable. The visualized intraorbital contents, the visualized paranasal sinuses, and the infratemporal soft tissues show no acute abnormality. The osseous structures in the skull base and the calvarium show no abnormality. CT/CT head/brain wo con IMPRESSION: No acute intracranial pathology. Chronic age-related neurodegenerative changes are noted as above. Impression dictated by: Kike Rincon M.D. 01/21/2025 2:37 PM Dictation Location: [place] [address] Electronically authenticated by: [id number] Y Date: 01/21/2025 14:37
--- OUTSIDE RECORDS SUMMARY | 2025-01-21 13:43 | XMS_ITS | Encounter Summary ---
Author Organization [facility] Address [address] [place] [address] Care Team Providers Care Aerospace Stress Engineer Name Role Phone Gamal Mair MD Unavailable Gamal Mari MD Primary Care Provider [phone] Emmie Dela Cruz RN Unavailable [phone] Encounter Details Date Type Department Care Team (Late st Contact Info) Description 09/09/2024 Abstract [facility] [address] [facility] 110 [place] [address] Gamal Mari MD 112 [facility] 110 [place] [address] Social History Tobacco Use Types [...] and Family Not on file 08/05/2023 Attends Sikh Services Not on file 08/05 Active Member [...] Recorded Patient Health Questionnaire-2 Score 0 10/21/2023 [facility] of Occupat ional Health - Occupational Stress [...] [facility] [address] [place] [address] Cristiane Duckworth MD [address] [place] [address] documented as of this encounter [...] documented as of this encounter Care Teams Aerospace Stress Engineer Relationship Specialty Start Date End Date Gamal Mari MD [address] [place] [address] PCP - ACO Reach 01/17/23 Gamal Mari MD [address] [place] [address] PCP - General Family Medicine 01/28/23 Emmie Dela Cruz, RN Registered Nurse Family Medicine 08/05/23 10/21/24 documented as of this encounter
--- OUTSIDE RECORDS SUMMARY | 2025-01-21 13:43 | XMS_ITS | Encounter Summary ---
Author Organization [facility] Address [address] [place] [address] Care Team Providers Care Tallow Refiner Name Role Phone Gamal Mari MD Unavailable Gamal Mari MD Primary Care Provider [phone] Emmie Dela Cruz RN Unavailable [phone] Encounter Details Date Type Department Care Team (Late st Contact Info) Description 09/12/2023 Abstract [facility] 112 [facility] 110 [place] [address] Gamal Mari MD 112 [facility] 110 [place] [address] Social History Tobacco Use Types [...] and heating? Not hard at all 02/21/2023 [facility] of Occupat ional Health [...] Visit [facility] [address] [place] [address] Cristiane Duckworth MD [address] [place] [address] documented as of this encounter Visit Diagnoses Not on filedocumented in this encounter Care Teams Tallow Refiner Relationship Specialty Start Date End Date Gamal Mari MD [address] [place] [address] PCP - ACO Reach 01/17/23 Gamal Mari MD [address] [place] [address] PCP - General Family Medicine 01/28/23 Emmie Dela Cruz, RN Registered Nurse Family Medicine 08/05/23 10/21/24 documented as of this encounter
--- OUTSIDE RECORDS SUMMARY | 2025-01-21 13:43 | XMS_ITS | Encounter Summary ---
Author Organization [facility] Address [address] [place] [address] Care Team Providers Care Pin Drafting Machine Tender Name Role Phone Gamal Mari MD Unavailable Gamal Mari MD Primary Care Provider [phone] Emmie Dela Cruz RN Unavailable [phone] Encounter Details Date Type Department Care Team (Late st Contact Info) Description 09/03/2024 Abstract [facility] 112 [facility] 110 [place] [address] Gamal Mari MD 112 [facility] 110 [place] [address] Social History Tobacco Use Types [...] and Family Not on file 08/05/2023 Attends Yazidi Services Not on file 08/05 Active Member [...] Recorded Patient Health Questionnaire-2 Score 0 10/21/2023 [facility] of Occupat ional Health - [...] [facility] [address] [place] [address] Cristiane Duckworth MD [address] [place] [address] documented as of this encounter [...] documented as of this encounter Care Teams Pin Drafting Machine Tender Relationship Specialty Start Date End Date Gamal Mari MD [address] [place] [address] PCP - ACO Reach 01/17/23 Gamal Mari MD [address] [place] [address] PCP - General Family Medicine 01/28/23 Emmie Dela Cruz, RN Registered Nurse Family Medicine 08/05/23 10/21/24 documented as of this encounter
--- OUTSIDE RECORDS SUMMARY | 2025-01-21 13:43 | XMS_ITS | Encounter Summary ---
Author Organization [facility] Address [address] [place] [address] Care Team Providers Care Liberal Arts Teacher Name Role Phone Gamal Mari MD Unavailable Gamal Mari MD Primary Care Provider [phone] Emmie Dela Cruz RN Unavailable [phone] Encounter Details Date Type Department Care Team (Late st Contact Info) Description 12/02/2023 Clinisync Result Encounter [facility] External Department Unsolicited Francisca Saenz, PA 112 [facility] 110 [place] [address] Social History Tobacco Use Types Packs/Day Years [...] and Family Not on file 08/05/2023 Attends Buddhism Services Not on file 08/05 Active Member [...] Recorded Patient Health Questionnaire-2 Score 0 10/21/2023 [facility] [place] of Occupat ional Health - Occupational Stress [...] place to sleep or slept in a jail (including now)? No 02/21/2023 Comments Unknown Sex [...] Visit [facility] [address] [place] [address] Cristiane Duckworth MD [address] [place] [address] documented as of this encounter Procedures Procedure Name Priority Date/Time Associated Diagnosis Comments XR DEXA AXIAL SKELETON 12/02/2023 10:50 AM EDT documented in this encounter Results * XR DEXA AXIAL SKELETON (12/02/2023 10:50 AM EDT) Anatomical Region Laterality Modality Other 12/02/2023 10:5 0 AM EDT Narrative 12/02/2023 10:53 AM EDT The [address] [address] XRay Report Signed Patient: GINNY DEL CASTILLO MR#: [id number] : 1955 Acct:[id number] Age/Sex: 68 / F ADM Date: 12/02/23 Loc: CT Attending Dr: FRANCISCA SAENZ Ordering Physician: FRANCISCA SAENZ Date of Service: 12/02/23 Procedure(s): XR DEXA axial skeleton Accession Number(s): [id number] cc: FRANCISCA SAENZ The [place] [address] Patient Name: GINNY DEL CASTILLO MRN: [id number] date: 1955 Sex: F Assigned Patient Location: CT Current Patient Location: CT Accession/Order Number: [id number] Exam Date: 12/02/2023 10:10 Report Date: 12/02/2023 10:50 At the request of: FRANCISCA SAENZ Procedure: XR DEXA axial skeleton EXAMINATION: XR DEXA axial skeleton HISTORY: Estrogen Deficiency, E 28.39 COMPARISON: DEXA bone densitometry 10/24/2021 TECHNIQUE: Dual-energy X-ray absorptiometry (DXA) was performed. FINDINGS: FOREARM ANALYSIS: Average bone mineral density is 0.553 g/cm2. T-score (standard deviation relative to young adult mean): -2.3 . +1.4% change since prior study. HIP ANALYSIS: Lowest bone mineral density is within the left femoral neck, 0.701 g/cm2. T-score (standard deviation relative to young adult mean): -2.4 . +0.1% change since prior study. XR/XR DEXA axial skeleton IMPRESSION: World Omid Organization Classification: Osteopenia - Moderate Fracture Risk Electronically authenticated by: BILL GODOY Date: 12/02/2023 10:50 Dictated By: Bill Godoy M.D. Signed By: 12/02/23 1053 DD/ 1050 TD/TT: Mobile Development Manager: Procedure Note Radiology, Radiologist, MD - 12/02/2023 [place] [address] XRay Report Signed Patient: GINNY DEL CASTILLO AMR#: [id number] : 1955cct:[id number] Age/Sex: 68 / FADM Date: 12/02/23 Loc: CT Attending Dr: FRANCISCA SAENZ Ordering Physician: FRANCISCA SAENZ Date of Service: 12/02/23 Procedure(s): XR DEXA axial skeleton Accession Number(s): [id number] cc: FRANCISCA SAENZ [place] [address] Patient Name: GINNY DEL CASTILLO MRN: [id number] date: 1955 Sex: F Assigned Patient Location: CT Current Patient Location: CT Accession/Order Number: [id number] Exam Date: 12/02/2023 10:10 Report Date: 12/02/2023 10:50 At the request of: FRANCISCA SAENZ Procedure: XR DEXA axial skeleton EXAMINATION: XR DEXA axial skeleton HISTORY: Estrogen Deficiency, E 28.39 COMPARISON: DEXA bone densitometry 10/24/2021 TECHNIQUE: Dual-energy X-ray absorptiometry (DXA) was performed. FINDINGS: FOREARM ANALYSIS: Average bone mineral density is 0.553 g/cm2. T-score (standard deviation relative to young adult mean): -2.3 . +1.4% change since prior study. HIP ANALYSIS: Lowest bone mineral density is within the left femoral neck, 0.701 g/cm2. T-score (standard deviation relative to young adult mean): -2.4 . +0.1% change since prior study. XR/XR DEXA axial skeleton IMPRESSION: World Omid Organization Classification: Osteopenia - Moderate FractureRisk Electronically authenticated by: BILL GODOY Date: 12/02/2023 10:50 Dictated By: Bill Godoy M.D. Signed By:12/02/23 1053 DD/ 1050 TD/TT: Mobile Development Manager: us Francisca Saenz PA [facility] Final Result documented in this encounter Visit Diagnoses Not on filedocumented in this encounter Additional Health Concerns Assessment Noted Time PHQ-9 Depression Total Score: 0 10/21/19 24 10:00 AM EST documented as of this encounter Care Teams Liberal Arts Teacher Relationship Specialty Start Date End Date Gamal Mari MD [address] [place] [address] PCP - ACO Reach 01/17/23 Gamal Mari MD 112 [facility] 110 [place] [id number] PCP - General Family Medicine 01/28/23 Emmie Dela Cruz, YAA Registered Nurse Family Medicine 08/05/23 10/21/24 documented as of this encounter
--- OUTSIDE RECORDS SUMMARY | 2025-01-21 13:43 | XMS_ITS | Patient Health Record ---
Author Organization [facility] Address [address] [place] [address] Care Team Providers Care Finish Patcher Name Role Phone [facility], [facility] Primary Car e Provider Unavailable Allergies Allergen (clinical drug ingredient) Drug/Non Drug Allergy documented on EMR Reaction Allergy Type Onset Date Status bupropion Wellbutrin SR SOB Drug Allergy Act tino Reason For Referral No Information Medications Medication SIG (Take, Route, Frequency, Duration) Notes Start Date End Date Status Calcium Active Cyanocobalamin 1000 MCG/ML 1 mL Injection monthly Active Prolia 60 MG/ML as directed Subcutaneous Active Vitamin D3 Active Zoloft 50 MG 1 tablet Orally Once a day Active Levothyroxine Sodium 50 MCG 1 tablet in the morning on an empty stomach Orally Once a day Active Immunizations Vaccine Route Administration Date Status Comme nts Pneumonia Prevnar 20 Unknown 09/27/2023 Contraindicatio ns z2023 Fluzone, 6mo & older, Quad PFS (0.5mL Admin) Unknown 09/27/2023 Refused Social History Tobacco Use: Social History Observation Description Date Details (start date - stop date) Current Smoker NA - NA Tobacco Use Question Answer Notes Are you a Current smoker Additional Findings: Tobacco User Heavy cigarett e smoker (20-39 cigs/day) Problems Problem Type SNOMED Code ICD Code Onset Dates Problem Status W/U Status Risk Notes Problem Hypothyroid (79315331) Hypothyroid (E03.9) Active confirmed Problem Mixed anxiety and depressive disorder (499182426) Anxiety and depression (F41.9) Active confirmed Problem Vitamin B12 deficiency (non anemic) (19391369) Vitamin B 12 deficiency (E53.8) Active confirmed Problem Breast cancer (819666402) Breast cancer (C50.919) Active confirmed Problem Osteoporosis (75764143) Osteoporosis (M81.0) Active confirmed Problem Diverticulitis (83494002) Diverticulitis (562.11) Active confirmed Problem 74651530 Cigarette nicotine dependence without complication (F17.210) Active confirmed Problem Lumbago (977443919) Lumbago (M54.50) Active confirmed Plan Of Treatment No Information Insurance Providers Payer Name Payer Address Payer Phone Subscriber Number Group Number Insured Name Patient Relationship to Insured Coverage Start Date Coverage End Date [place] [address] [place] [address] [id number] Ivonne Del Castillo Self - patient is the insured [employer] [place] [address] [address] [place] [address] [id number] Ivonne Del Castillo Self - patient is the insured Medical (General) History Medical History History ICD Code Hypothyroid E03.9 Diverticulitis 562.11 Lumbago M54.50 Anxiety and depression F41.9 Breast cancer C50.919 Vitamin B 12 deficiency E53.8 Osteoporosis M81.0 Surgical History Surgery Date(Month/Year) Right breast cancer - lumpectomy with ra diation hysterectomy back surgery cholecystectomy Hospitalization History Reason Date(Month/Year) surgeries
--- OUTSIDE RECORDS SUMMARY | 2025-01-21 13:43 | XMS_ITS | Encounter Summary ---
Author Organization [facility] Address [address] [place] [address] Care Team Providers Care Manager Social Services Name Role Phone Gamal Mari MD Unavailable Gamal Mari MD Primary Care Provider [phone] Emmie Dela Cruz RN Unavailable [phone] Encounter Details Date Type Department Care Team (Late st Contact Info) Description 10/23/2023 Abstract [facility] 112 [facility] 110 [place] [address] Gamal Mari MD 112 [facility] 110 [place] [address] Social History Tobacco Use Types [...] and Family Not on file 08/05/2023 Attends Jainism Services Not on file 08/05 Active Member [...] Recorded Patient Health Questionnaire-2 Score 0 10/21/2023 [facility] of Occupat ional Health - [...] Visit [facility] [address] [place] [address] Cristiane Duckworth MD [address] [place] [address] documented as of this encounter Visit Diagnoses Not on filedocumented in this encounter Additional Health Concerns Assessment Noted Time PHQ-9 Depression Total Score: 0 10/21/19 24 10:00 AM EST documented as of this encounter Care Teams Manager Social Services Relationship Specialty Start Date End Date Gamal Mari MD [address] [place] [address] PCP - ACO Reach 01/17/23 Gamal Mari MD [address] [place] [address] PCP - General Family Medicine 01/28/23 Emmie Dela Cruz, RN Registered Nurse Family Medicine 08/05/23 10/21/24 documented as of this encounter
--- OUTSIDE RECORDS SUMMARY | 2025-01-21 13:43 | XMS_ITS | Encounter Summary ---
Author Organization [facility] Address [address] [place] [address] Care Team Providers Care Electromechanical Assembler Name Role Phone Gamal Mari MD Unavailable Gamal Mari MD Primary Care Provider [phone] Emmie Dela Cruz RN Unavailable [phone] Encounter Details Date Type Department Care Team (Late st Contact Info) Description 10/19/2024 Abstract [facility] 112 [facility] 110 [place] [address] Gamal Mari MD 112 [facility] 110 [place] [address] Social History Tobacco Use Types [...] and Family Not on file 08/05/2023 Attends Quaker Services Not on file 08/05 Active Member [...] Recorded Patient Health Questionnaire-2 Score 0 10/21/2023 [facility] of Occupat ional Health [...] place to sleep or slept in a fpc (including now)? No 02/21/2023 Comments Unknown Sex [...] [facility] [address] [place] [address] Cristiane Duckworth MD [address] [place] [address] documented as of this encounter [...] documented as of this encounter Care Teams Electromechanical Assembler Relationship Specialty Start Date End Date Gamal Mari MD [address] [place] [address] PCP - ACO Reach 01/17/23 Gamal Mari MD [address] [place] [address] PCP - General Family Medicine 01/28/23 Emmie Dela Cruz, RN Registered Nurse Family Medicine 08/05/23 10/21/24 documented as of this encounter
--- OUTSIDE RECORDS SUMMARY | 2025-01-21 13:43 | XMS_ITS | Encounter Summary ---
Author Organization [facility] Address [address] [place] [address] Care Team Providers Care Holistic Health Practitioner Name Role Phone Gamal Mari MD Unavailable Gamal Mari MD Primary Care Provider [phone] Emmie Dela Cruz RN Unavailable [phone] Encounter Details Date Type Department Care Team (Late st Contact Info) Description 12/10/2023 Abstract [facility] 112 [facility] 110 [place] [address] Gamal Mari MD 112 [facility] 110 [place] [address] Social History Tobacco Use Types [...] and Family Not on file 08/05/2023 Attends [employer] [facility] Not on file 08/05 Active Member [...] Recorded Patient Health Questionnaire-2 Score 0 10/21/2023 [facility] of Occupat ional Health - Occupational [...] Visit [facility] [address] [place] [address] Cristiane Duckworth MD [address] [place] [address] documented as of this encounter Visit Diagnoses Not on filedocumented in this encounter Additional Health Concerns Assessment Noted Time PHQ-9 Depression Total Score: 0 10/21/19 24 10:00 AM EST documented as of this encounter Care Teams Holistic Health Practitioner Relationship Specialty Start Date End Date Gamal Mari MD [address] [place] [address] PCP - ACO Reach 01/17/23 Gamal Mari MD [address] [place] [address] PCP - General Family Medicine 01/28/23 Emmie Dela Cruz, RN Registered Nurse Family Medicine 08/05/23 10/21/24 documented as of this encounter
--- OUTSIDE RECORDS SUMMARY | 2025-01-21 13:43 | XMS_ITS | Encounter Summary ---
Author Organization [facility] Address [address] [place] [address] Care Team Providers Care Recording Clerk Name Role Phone Gamal Mari MD Unavailable Gamal Mari MD Primary Care Provider [phone] Emmie Dela Cruz RN Unavailable [phone] Encounter Details Date Type Department Care Team (Late st Contact Info) Description 08/08/2023 Orders Only [facility] [address] [place] [phone] A, Unknown Practice [address] [place] [address] Social History Tobacco Use Types [...] and heating? Not hard at all 02/21/2023 [facility] of Occupat ional Health - Occupational [...] EDT Office Visit [facility] [address] [place] [address] Cristiane Duckworth MD [address] [place] [address] documented as of this encounter Procedures Procedure Name Priority Date/Time Associated Diagnosis Comments SCANNED LABS Routine 08/08/2023 10:08 AM EST documented in this encounter Results * SCANNED LABS (08/08/2023 10:08 AM EST) us Unknown Practice A LAB CHG PERFORMABLES Final Re sult documented in this encounter Visit Diagnoses Not on filedocumented in this encounter Care Teams Recording Clerk Relationship Specialty Start Date End Date Gamal Mari MD [address] [place] [address] PCP - ACO Reach 01/17/23 Gamal Mari MD [address] [place] [address] PCP - General Family Medicine 01/28/23 Emmie Dela Cruz, YAA Registered Nurse Family Medicine 08/05/23 10/21/24 documented as of this encounter
--- OUTSIDE RECORDS SUMMARY | 2025-01-21 13:43 | XMS_ITS | Clinical Summary ---
Author Organization [facility] Address [address] [place] [address] Phone Care Team Providers Care Locksmith Helper Name Role Phone Unavailable Primary Care Provider Unavailabl e Social History Tobacco Use Types Packs/Day Years Used Date Smoking Tobacco: Never Assessed Comments Unknown Sex and Gender Information Value Date Recorded Sex Assigned at Not on file Legal Sex Female 8:45 AM EST Gender Identity Not on file Sexual Orientation Not on file Plan of Treatment Not on file
--- OUTSIDE RECORDS SUMMARY | 2025-01-21 13:43 | XMS_ITS | Encounter Summary ---
Author Organization [facility] Address [address] [place] [address] Care Team Providers Care Systems Security Analyst Name Role Phone Gamal Mari MD Primary Care Provider [phone] Gamal Mari MD Unavailable [phone] Source Comments In the event this information is protected by the Federal Confidentiality of Alcohol and Drug AbusePatient Records regulations: The Federal rules restrict any use of the information to criminally investigate or prosecute any alcohol or drug abuse patient.[facility] Encounter Details Date Type Department Care Team (Late st Contact Info) Description 01/20/2025 Orders Only Hematology/Oncology [address] [place] [address] [place] [address] Kim Maldonado APRN.BATCH TRUCKER [address] [place] [address] Social History Tobacco Use Types Packs/Day Years Used Date Smoking Tobacco: Former Cigarettes Passive Smoke Exposure: Current Smokeless Tobacco: Never Comments:vapes Alcohol Use Standard Drinks/Week Comments Not Currently 0 (1 standard drink = 0.6 oz pur e alcohol) socially PHQ-2 Answer Date Recorded PHQ-2 score 0 09/07/2024 Area Deprivation Index Answer Date Rc rded National Score (1-100), lower number is lower ri sk 86 03/13/2023 State Score (1-10), lower number is lower risk 8 03/13/2023 Data from: https://www.neighborhoodatlas.medicine.[facility].edu/. Last address used for calculation [address] 03/13/2023 Comments No Sex and Gender Information Value Date Recorded Sex Assigned at Not on file Legal Sex Female 10:38 AM EDT Gender Identity Not on file Sexual Orientation Not on file documented as of this encounter Plan of Treatment Upcoming Encounters Date Type Department Care Team (Latest Contact Info) Description 01/25/2025 2:30 PM EDT Nurse Visit Hematology/Oncology [address] [place] [address] Matteo Kennedy Nurse Ervin [address] [place], [place] [id number] B12(sent Msg) 02/22/2025 2:15 PM EDT Office Visit [facility] [address] [place] [address] follow up lab and B12 02/22/2025 2:30 PM EDT Visit (SP) Office Hematology/Oncology [address] [place] [address] Kim Maldonado APRN.BATCH TRUCKER [address] [place] [address] follow up lab and B12 02/22/2025 3:00 PM EDT Nurse Visit Hematology/Oncology [address] [place] [address] [place] [address] Matteo Kennedy Nurse Ervin [address] [place] [address] follow up lab and B12 documented as of this encounter Visit Diagnoses Not on filedocumented in this encounter Care Teams Systems Security Analyst Relationship Specialty Start Date End Date Gamal Mari MD [address] [facility] 110 [place] [address] PCP - General Family Medicine 11/05/18 Gamal Mari MD [address] [facility] 110 [place] [address] Referring Family Medicine 11/05/18 documented as of this encounter
--- OUTSIDE RECORDS SUMMARY | 2025-01-21 13:43 | XMS_ITS | Encounter Summary ---
Author Organization [facility] Address [address] [place] [address] Care Team Providers Care Ultrasound Technologist Name Role Phone Gamal Mari MD Unavailable Gamal Mari MD Primary Care Provider [phone] Emmie Dela Cruz RN Unavailable [phone] Encounter Details Date Type Department Care Team (Late st Contact Info) Description 02/14/2023 Orders Only [facility] [address] [place] [address] Rosa Shearer MD [address] [place] [address] Social History Tobacco Use Types Packs/Day Years Used Date Smoking Tobacco: Every Day Cigarettes Smokeless Tobacco: Never Alcohol Use Standard Drinks/Week Comments Not Currently 0 (1 standard drink = 0.6 oz pur e alcohol) Comments Unknown Sex and Gender Information Value Date Recorded Sex Assigned at Not on file Legal Sex Female 7:13 PM EDT Gender Identity Not on file Sexual Orientation Not on file documented as of this encounter Plan of Treatment Upcoming Encounters Date Type Department Care Team (Late st Contact Info) Description 02/10/2025 1:00 PM EDT Office Visit [facility] [address] [place] [address] Cristiane Duckworth MD [address] [place] [address] documented as of this encounter Procedures Procedure Name Priority Date/Time Associated Diagnosis Comments SCANNED LABS Routine 02/13/2023 8:14 AM EDT documented in this encounter Results * SCANNED LABS (02/13/2023 8:14 AM EDT) us Rosa Shearer MD LAB CHG PERFORMABLES Edited Re sult - Final documented in this encounter Visit Diagnoses Not on filedocumented in this encounter Care Teams Ultrasound Technologist Relationship Specialty Start Date End Date Gamal Mari MD [address] [facility] 110 [place] [address] PCP - ACO Reach 01/17/23 Gamal Mari MD [address] [facility] 110 [place] [address] PCP - General Family Medicine 01/28/23 Emmie Dela Cruz, YAA Registered Nurse Family Medicine 08/05/23 10/21/24 documented as of this encounter
--- OUTSIDE RECORDS SUMMARY | 2025-01-21 13:43 | XMS_ITS | Encounter Summary ---
Author Organization [facility] Address [address] [place] [address] Care Team Providers Care Cloth Weigher Name Role Phone Gamal Mari MD Unavailable Gamal Mari MD Primary Care Provider [phone] Emmie Dela Cruz RN Unavailable [phone] Encounter Details Date Type Department Care Team (Late st Contact Info) Description 10/23/2023 Abstract [facility] 112 [facility] 110 [place] [address] Gamal Mari MD 112 [facility] 110 [place] [address] Social History Tobacco Use Types [...] and Family Not on file 08/05/2023 Attends [employer]regational Services Not on file 08/05 Active Member [...] Visit [facility] [address] [place] [address] Cristiane Duckworth MD [address] [place] [address] documented as of this encounter Visit Diagnoses Not on filedocumented in this encounter Additional Health Concerns Assessment Noted Time PHQ-9 Depression Total Score: 0 10/21/19 24 10:00 AM EST documented as of this encounter Care Teams Cloth Weigher Relationship Specialty Start Date End Date Gamal Mari MD [address] [place] [address] PCP - ACO Reach 01/17/23 Gamal Mari MD [address] [place] [address] PCP - General Family Medicine 01/28/23 Emmie Dela Cruz, RN Registered Nurse Family Medicine 08/05/23 10/21/24 documented as of this encounter
--- OUTSIDE RECORDS SUMMARY | 2025-01-21 13:43 | XMS_ITS | Encounter Summary ---
Author Organization [facility] Address [address] [place] [address] Care Team Providers Care Laundry Assistant Name Role Phone Gamal Mari MD Unavailable Gamal Mari MD Primary Care Provider [phone] Emmie Dela Cruz RN Unavailable [phone] Encounter Details Date Type Department Care Team (Late st Contact Info) Description 12/02/2023 Clinisync Result Encounter [facility] External Department Unsolicited Francisca Saenz, PA 112 [facility] [address] [place] [address] Social History Tobacco Use Types Packs/Day Years [...] Recorded Patient Health Questionnaire-2 Score 0 10/21/2023 [facility] [place] of Occupat ional Health - Occupational Stress [...] Visit [facility] [address] [place] [address] Cristiane Duckworth MD [address] [place] [address] documented as of this encounter Procedures Procedure Name Priority Date/Time Associated Diagnosis Comments CT LUNG SCREENING LOW DOSE 12/02/2023 10:56 AM EDT documented in this encounter Results * CT LUNG SCREENING LOW DOSE (12/02/2023 10:56 AM EDT) Anatomical Region Laterality Modality Other 12/02/2023 10:5 6 AM EDT Narrative 12/02/2023 10:58 [place] [address] [place] Scan Report Signed Patient: GINNY DEL CASTILLO MR#: [id number] : 1955 Acct:[id number] Age/Sex: 68 / F ADM Date: 12/02/23 Loc: CT Attending Dr: FRANCISCA SAENZ Ordering Physician: FRANCISCA SAENZ Date of Service: 12/02/23 Procedure(s): CT lung screening low-dose Accession Number(s): [id number] cc: FRANCISCA SAENZ [place] [id number] Patient Name: GINNY DEL CASTILLO MRN: [id number] date: 1955 Sex: F Assigned Patient Location: CT Current Patient Location: CT Accession/Order Number: [id number] Exam Date: 12/02/2023 10:06 Report Date: 12/02/2023 10:56 At the request of: FRANCISCA SAENZ Procedure: CT lung screening low-dose EXAMINATION: CT lung screening low-dose HISTORY: Tobacco Dependance F17.200 COMPARISON: CT lung cancer screening 11/30/2022 TECHNIQUE: Axial, Coronal, and Sagittal images were created without the administration of IV contrast material. Dose reduction techniques were achieved by using automated exposure control and/or adjustment of mA and/or kV according to patient size and/or use of iterative reconstruction technique. FINDINGS: LUNGS: Stable appearance of the few small calcified and noncalcified nodules within the right lung and adjacent the pleural surface of the lateral left midlung. No new nodules or appreciable change. PLEURA: No mass, effusion, or pneumothorax. VASCULATURE: No abnormality. AKHIL: Calcified lymph nodes suggestive of chronic granulomatous disease. MEDIASTINUM: Calcified lymph nodes. CARDIAC: No enlargement, pericardial thickening, or pericardial effusion. AORTA: No aneurysm or dissection. CHEST WALL: Stable prominent thyroid gland. No axillary lymphadenopathy. BONES: No bone lesion or fracture. LIMITED ABDOMEN: No suspicious findings. Limited images of the upper abdomen. OTHER: Negative. CT/CT lung screening low-dose IMPRESSION: 1. Lung-RADS 2- Benign Appearance or Behavior. Nodules with a very low likelihood of becoming a clinically active cancer due to size or lack of growth. Follow-up CT Chest in 1 year. Electronically authenticated by: BILL GODOY Date: 12/02/2023 10:56 Dictated By: Bill Godoy M.D. Signed By: 12/02/23 1058 DD/ 1056 TD/TT: Tacker Elastic Band: Procedure Note Radiology, Radiologist, MD - 12/02/[address] [address] [address] Scan Report Signed Patient: GINNY DEL CASTILLO AMR#: [id number] : 1955cct:[id number] Age/Sex: 68 / FADM Date: 12/02/23 Loc: CT Attending Dr: FRANCISCA SAENZ Ordering Physician: FRANCISCA SAENZ Date of Service: 12/02/23 Procedure(s): CT lung screening low-dose Accession Number(s): [id number] cc: FRANCISCA SAENZ [place] [id number] Patient Name: GINNY DEL CASTILLO MRN: [facility]:[id number] date: 1955 Sex: F Assigned Patient Location: CT Current Patient Location: CT Accession/Order Number: [id number] Exam Date: 12/02/2023 10:06 Report Date: 12/02/2023 10:56 At the request of: FRANCISCA SAENZ Procedure: CT lung screening low-dose EXAMINATION: CT lung screening low-dose HISTORY: Tobacco Dependance F17.200 COMPARISON: CT lung cancer screening 11/30/2022 TECHNIQUE: Axial, Coronal, and Sagittal images were created without the administration of IV contrast material. Dose reduction techniques were achieved by using automated exposure control and/or adjustment of mA and/or kV according to patient size and/or use of iterative reconstruction technique. FINDINGS: LUNGS: Stable appearance of the few small calcified and noncalcifiednodules within the right lung and adjacent the pleural surface of the lateral left midlung. No new nodules or appreciable change. PLEURA: No mass, effusion, or pneumothorax. VASCULATURE: No abnormality. AKHIL: Calcified lymph nodes suggestive of chronic granulomatous disease. MEDIASTINUM: Calcified lymph nodes. CARDIAC: No enlargement, pericardial thickening, or pericardial effusion. AORTA: No aneurysm or dissection. CHEST WALL: Stable prominent thyroid gland. No axillary lymphadenopathy. BONES: No bone lesion or fracture. LIMITED ABDOMEN: No suspicious findings. Limited images of the upperabdomen. OTHER: Negative. CT/CT lung screening low-dose IMPRESSION: 1. Lung-RADS 2- Benign Appearance or Behavior. Nodules with a very low likelihood of becoming a clinically active cancer due to size or lack of growth. Follow-up CT Chest in 1 year. Electronically authenticated by: BILL GODOY Date: 12/02/2023 10:56 Dictated By: Bill Godoy M.D. Signed By:12/02/23 1058 DD/ 1056 TD/TT: Tacker Elastic Band: us Francisca [facility] Final Result documented in this encounter Visit Diagnoses Not on filedocumented in this encounter Additional Health Concerns Assessment Noted Time PHQ-9 Depression Total Score: 0 10/21/19 24 10:00 AM EST documented as of this encounter Care Teams Laundry Assistant Relationship Specialty Start Date End Date Gamal Mari MD [address] [facility] [facility] [address] [place] [address] PCP - ACO Reach 01/17/23 Gamal Mari MD [address] [facility] [address] [place] [address] PCP - General Family Medicine 01/28/23 Emmie Dela Cruz, RN Registered Nurse Family Medicine 08/05/23 10/21/24 documented as of this encounter
--- OUTSIDE RECORDS SUMMARY | 2025-01-21 13:43 | XMS_ITS | Encounter Summary ---
Author Organization [facility] Address [address] [place] [address] Care Team Providers Care Diesel Power Mechanic Name Role Phone Gamal Mari MD Primary Care Provider [phone] Gamal Mari MD Unavailable [phone] Source Comments In the event this information is protected by the Federal Confidentiality of Alcohol and Drug AbusePatient Records regulations: The Federal rules restrict any use of the information to criminally investigate or prosecute any alcohol or drug abuse patient.[facility] Encounter Details Date Type Department Care Team (Late st Contact Info) Description 03/11/2023 Abstract Hematology/Oncology [address] [place] [address] [place] [address] Maikel Resendiz MD [address] [place] [address] [place] [address] Social History Tobacco Use Types Packs/Day Years Used Date Smoking Tobacco: Every Day Smokeless Tobacco: Never Comments:vapes Alcohol Use Standard Drinks/Week Comments Yes 0 (1 standard drink = 0.6 oz pur e alcohol) socially PHQ-2 Answer Date Recorded PHQ-2 score 2 06/11/2019 Area Deprivation Index Answer Date Rc rded National Score (1-100), lower number is lower ri 86 03/13/2023 State Score (1-10), lower number is lower risk 8 03/13/2023 Data from: https://www.neighborhoodatlas.[facility].edu/. Last address used for calculation [address] 03/13/2023 Comments No Sex and Gender Information Value Date Recorded Sex Assigned at Not on file Legal Sex Female 10:38 AM EDT Gender Identity Not on file Sexual Orientation Not on file documented as of this encounter Plan of Treatment Upcoming Encounters Date Type Department Care Team (Latest Contact Info) Description 01/25/2025 2:30 PM EDT Nurse Visit Hematology/Oncology [address] [facility] [place] [place] [address] Matteo Kennedy Nurse Ervin [address] [facility] [place] [address] B12(sent Msg) 02/22/2025 2:15 PM EDT Office Visit [facility] Laboratory [address] [facility] [place] [address] follow up lab and B12 02/22/2025 2:30 PM EDT Visit (SP) Office Hematology/Oncology [address] [facility] [place] [place] [address] Kim Maldonado APRN.COOLER DELIVERER [address] [facility] [place] [address] follow up lab and B12 02/22/2025 3:00 PM EDT Nurse Visit Hematology/Oncology [address] [place] [address] [place] [address] Matteo Kennedy Nurse Ervin [address] [facility] [place] [address] follow up lab and B12 documented as of this encounter Visit Diagnoses Not on filedocumented in this encounter Care Teams Diesel Power Mechanic Relationship Specialty Start Date End Date Gamal Mari MD [address] [place] [address] PCP - General Family Medicine 11/05/18 Gamal Mari MD [address] [place] [address] Referring Family Medicine 11/05/18 documented as of this encounter
--- OUTSIDE RECORDS SUMMARY | 2025-01-21 13:43 | XMS_ITS | Encounter Summary ---
Author Organization [facility] Address [address] [place] [address] Care Team Providers Care Converter Supervisor Name Role Phone Gamal Mari MD Primary Care Provider [phone] Gamal Mari MD Unavailable [phone] Source Comments In the event this information is protected by the Federal Confidentiality of Alcohol and Drug AbusePatient Records regulations: The Federal rules restrict any use of the information to criminally investigate or prosecute any alcohol or drug abuse patient.[facility] Encounter Details Date Type Department Care Team (Latest Contact Info) Description 11/06/2018 H&P External-NonCCF Provider, External, PA-C Do not enter address information under generic External Provider. Social History Tobacco Use Types Packs/Day Years Used Date Smoking Tobacco: Every Day Comments Unknown Sex and Gender Information Value Date Recorded Sex Assigned at Not on file Legal Sex Female 10:38 AM EDT Gender Identity Not on file Sexual Orientation Not on file documented as of this encounter Plan of Treatment Upcoming Encounters Date Type Department Care Team (Latest Contact Info) Description 01/25/2025 2:30 PM EDT Nurse Visit Hematology/Oncology [address] [place] [address] Matteo Kennedy Nurse Ervin [address] [place] [address] B12(sent Msg) 02/22/2025 2:15 PM EDT Office Visit [facility] Laboratory [address] [place] [address] follow up lab and B12 02/22/2025 2:30 PM EDT Visit (SP) Office Hematology/Oncology [address] [place] [place] [address] Kim Maldonado APRN.CAGE MANAGER [address] [place] [place] [address] follow up lab and B12 02/22/2025 3:00 PM EDT Nurse Visit Hematology/Oncology [address] [place] [address] Matteo Kennedy Nurse Ervin [address] [place] [address] follow up lab and B12 documented as of this encounter Visit Diagnoses Not on filedocumented in this encounter Care Teams Converter Supervisor Relationship Specialty Start Date End Date Gamal Mari MD [address] [place] [address] PCP - General Family Medicine 11/05/18 Gamal aMri MD [address] [place] [address] Referring Family Medicine 11/05/18 documented as of this encounter
--- OUTSIDE RECORDS SUMMARY | 2025-01-21 13:43 | XMS_ITS | Encounter Summary ---
Author Organization [facility] Address [address] [place] [address] Care Team Providers Care Roll Hand Name Role Phone Gamal Mari MD Unavailable Gamal Mari MD Primary Care Provider [phone] Emmie Dela Cruz RN Unavailable [phone] Encounter Details Date Type Department Care Team (Late st Contact Info) Description 12/09/2023 Orders Only [facility] [address] [place] [address] Unallocated, Noms Provider, [address] [place], [place] [address] Social History Tobacco Use Types Packs/Day Years [...] and Family Not on file 08/05/2023 Attends [employer] Not on file 08/05 Active Member [...] Recorded Patient Health Questionnaire-2 Score 0 10/21/2023 [facility] of Occupat ional Health - Occupational [...] Visit [facility] [address] [place] [address] Cristiane Duckworth MD [address] [place] [address] documented as of this encounter Procedures Procedure Name Priority Date/Time Associated Diagnosis Comments SCANNED LABS Routine 12/06/2023 10:06 AM EDT documented in this encounter Results * SCANNED LABS (12/06/2023 10:06 AM EDT) us N[facility] Provider Unallocated LAB CHG PERFORMABLE S Final Result documented in this encounter Visit Diagnoses Not on filedocumented in this encounter Additional Health Concerns Assessment Noted Time PHQ-9 Depression Total Score: 0 10/21/19 24 10:00 AM EST documented as of this encounter Care Teams Roll Hand Relationship Specialty Start Date End Date Gamal Mari MD [address] [place] [address] PCP - ACO Reach 01/17/23 Gamal Mari MD 112 [facility] 110 [place] [id number] PCP - General Family Medicine 01/28/23 Emmie Dela Cruz, RN Registered Nurse Family Medicine 08/05/23 10/21/24 documented as of this encounter
--- OUTSIDE RECORDS SUMMARY | 2025-01-21 13:43 | XMS_ITS | Encounter Summary ---
Author Organization [facility] Address [address] [place] [address] Care Team Providers Care Saddle Lining Stitcher Name Role Phone Gamal Mari MD Unavailable Gamal Mari MD Primary Care Provider [phone] Emmie Dela Cruz RN Unavailable [phone] Encounter Details Date Type Department Care Team (Late st Contact Info) Description 09/09/2023 Abstract [facility] [address] [facility] 110 [place] [address] Gamal Mari MD 112 [facility] 110 [place] [address] Social History Tobacco Use Types [...] and Family Not on file 08/05/2023 Attends [employer] Not on file 08/05 Active Member [...] Visit [facility] [address] [place] [address] Cristiane Duckworth MD [address] [place] [address] documented as of this encounter Visit Diagnoses Not on filedocumented in this encounter Care Teams Saddle Lining Stitcher Relationship Specialty Start Date End Date Gamal Mari MD [address] [place] [address] PCP - ACO Reach 01/17/23 Gamal Mari MD [address] [place] [address] PCP - General Family Medicine 01/28/23 Emmie Dela Cruz, RN Registered Nurse Family Medicine 08/05/23 10/21/24 documented as of this encounter
--- OUTSIDE RECORDS SUMMARY | 2025-01-21 13:43 | XMS_ITS | Encounter Summary ---
Author Organization [facility] Address [address] [place] [address] Care Team Providers Care Americanization Teacher Name Role Phone Gmaal Mari MD Primary Care Provider [phone] Gamal Mari MD Unavailable [phone] Source Comments In the event this information is protected by the Federal Confidentiality of Alcohol and Drug AbusePatient Records regulations: The Federal rules restrict any use of the information to criminally investigate or prosecute any alcohol or drug abuse patient.[facility] Encounter Details Date Type Department Care Team (Late st Contact Info) Description 01/19/2025 Orders Only Hematology/Oncology [address] [place] [address] [place] [address] Marietta Andre, JAZZ.MUSEUM ATTENDANT [address] [facility] [place] [address] Social History Tobacco Use Types Packs/Day Years [...] lower risk 8 03/13/2023 Data from: https://www.neighborhoodatlas.medicine.[facility].edu/. Last address used for calculation [address] [...] 2:30 PM EDT Nurse Visit Hematology/Oncology [address] [facility] [place] [address] Matteo Kennedy Nurse Ervin [address] [place] [address] [place] [address] B12(sent Msg) 02/22/2025 2:15 PM EDT Office Visit [facility] [address] [facility] [place] [address] follow up lab and B12 02/22/2025 2:30 PM EDT Visit (SP) Office Hematology/Oncology [address] [facility] [place] [address] Kim Maldonado APRN.MUSEUM ATTENDANT [address] [facility] [place] [address] follow up lab and B12 02/22/2025 3:00 PM EDT Nurse Visit Hematology/Oncology [address] [place] [address] [place] [address] Matteo Kennedy Nurse Ervin [address] [facility] [place] [address] follow up lab and B12 documented as of this encounter Visit Diagnoses Not on filedocumented in this encounter Care Teams Americanization Teacher Relationship Specialty Start Date End Date Gamal Mari MD [address] [facility] [address] [place] [address] PCP - General Family Medicine 11/05/18 Gamal Mari MD [address] [address] Referring Family Medicine 11/05/18 documented as of this encounter
--- OUTSIDE RECORDS SUMMARY | 2025-01-21 13:43 | XMS_ITS | Encounter Summary ---
Author Organization [facility] Address [address] [place] [address] Care Team Providers Care Band Teacher Name Role Phone Gamal Mari MD Primary Care Provider [phone] Gamal Mari MD Unavailable [phone] Source Comments In the event this information is protected by the Federal Confidentiality of Alcohol and Drug AbusePatient Records regulations: The Federal rules restrict any use of the information to criminally investigate or prosecute any alcohol or drug abuse patient.[facility] Encounter Details Date Type Department Care Team (Late st Contact Info) Description 01/19/2025 Orders Only Radiation Oncology [address] [place] [address] [place] [address] Jacinta Toney PAClaraC [address] [facility] [place] [place] [address] Social History Tobacco Use Types Packs/Day Years [...] is lower risk 8 03/13/2023 Data from: https://www.neighborhoodatlas.medicine.[facility].edu/. Last address used for calculation [address] [...] 2:30 PM EDT Nurse Visit Hematology/Oncology [address] [facility] [place] [place] [address] Matteo Kennedy Nurse Ervin [address] [place] [address] [place] [address] B12(sent Msg) 02/22/2025 2:15 PM EDT Office Visit [facility] [address] [facility] [place] [place] [address] follow up lab and B12 02/22/2025 2:30 PM EDT Visit (SP) Office Hematology/Oncology [address] [facility] [place] [address] Kim Maldonado APRN.GEOPHYSICS TEACHER [address] [facility] [address] follow up lab and B12 02/22/2025 3:00 PM EDT Nurse Visit Hematology/Oncology [address] [place] [address] [place] [address] Matteo Kennedy Nurse Ervin [address] [facility] [place] [place] [address] follow up lab and B12 documented as of this encounter Visit Diagnoses Not on filedocumented in this encounter Care Teams Band Teacher Relationship Specialty Start Date End Date Gamal Mari MD [address] [facility] 110 [place] [address] PCP - General Family Medicine 11/05/18 Gamal Mari MD [address] [address] Referring Family Medicine 11/05/18 documented as of this encounter
--- OUTSIDE RECORDS SUMMARY | 2025-01-21 13:43 | XMS_ITS | Clinical Summary ---
Author Organization [facility] Address [address] [place], [place] [id number] Care Team Providers Care Locomotive Switch Operator Name Role Phone Gamal Mari MD Primary Care Provider [phone] Gamal Mari MD Unavailable [phone] Allergies Active Allergy Reactions Criticality Noted Date Comments Bupropion Shortness of Breath 12/22/2004 Bupropion Hcl (Smoking Deter) Shortness of Breath 11/07/2018 Medications sertraline (ZOLOFT) 50 mg tablet Take 50 mg by mouth once daily. Active calcium carbonate (CALCIUM 500 ORAL) Take by mouth. Active Cholecalciferol, Vitamin D3, (VITAMIN D) 1,000 unit cap Take 1,000 Units by mouth once daily. Active loperamide (IMODIUM) 2 mg cap(s) every other day. 2 04/04/2019 Active levothyroxine (SYNTHROID) 50 mcg tablet Take 50 mcg by mouth once daily. 75mcg 2 days a week 02/07/2023 Active enzymes,digestiv e (DIGESTIVE ENZYMES ORAL) Take by mouth. Active DULoxetine (CYMBALTA) 60 mg capsule Take 60 mg by mouth. 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 03/13/2023 Ductal carcinoma in situ (DCIS) of breast 2018 Encounters Date Type Department Care Team Description 01/20/2025 Orders Only Hematology/Oncology [address] [place] [address] [place], [place] [id number] Kim Maldonado, JAZZ.ORE ROASTER 01/19/2025 Orders Only Radiation Oncology [address] [place] [address] Jacinta Toney PA-C 01/19/2025 Orders Only Hematology/Oncology [address] [place] [address] Marietta Andre, JAZZ.ORE ROASTER 12/28/2024 2:30 PM EDT Nurse Visit Hematology/Oncology [address] [place] [address] Matteo Kennedy Nurse Ervin Anemia, unspecified type (Primary Dx); 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 deficiency 11/30/2024 2:30 PM EDT Nurse Visit Hematology/Oncology [address] [place] [address] Matteo Kennedy Nurse Ervin Anemia, unspecified type (Primary Dx); 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 deficiency 11/30/2024 Travel 11/02/2024 2:30 PM EDT Nurse Visit Hematology/Oncology [address] [place] [address] Matteo Kennedy Nurse Ervin Anemia, unspecified type (Primary Dx); 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 deficiency 10/28/2024 Orders Only Hematology/Oncology [address] [place] [address] Maikel Resendiz MD 10/26/2024 Orders Only Hematology/Oncology [address] [place] [address] Marietta Andre, JAZZ.ORE ROASTER 10/26/2024 Orders Only Hematology/Oncology [address] [place] [address] Jacinta Toney PA-C from Last 3 Months Immunizations Immunization Administration Dates Next Due zoster (ZVL) vaccine, live (ZOSTAVAX) 06/28/2015 Family History Medical History Relation Comments Emphysema Father Diabetes Mother Heart disease Mother Relation Status Comments Father Mother Social History Tobacco Use Types Packs/Day Years Used Date Smoking Tobacco: Former Cigarettes Passive Smoke Exposure: Current Smokeless Tobacco: Never Tobacco Cessation:Counseling Given: Not Answered Comments:vapes Alcohol Use Standard Drinks/Week Comments Not Currently 0 (1 standard drink = 0.6 oz pur e alcohol) socially PHQ-2 Answer Date Recorded PHQ-2 score 0 09/07/2024 Area Deprivation Index Answer Date Rc rded National Score (1-100), lower number is lower ri sk 86 03/13/2023 State Score (1-10), lower number is lower risk 8 03/13/2023 Data from: https://www.neighborhoodatlas.medicine.[facility]/. Last address used for calculation [address] 03/13/2023 Comments No Sex and Gender Information Value Date Recorded Sex Assigned at Not on file Legal Sex Female 10:38 AM EDT Gender Identity Not on file Sexual Orientation Not on file Last Filed Vital Signs Vital Sign Reading Time Taken Comments Blood Pressure 104/71 12/28/2024 2:12 PM EDT Pulse 90 12/28/2024 2:12 PM EDT Temperature 36.7 C (98 F) 12/28/2024 2:12 PM EDT Respiratory Rate 16 12/28/2024 2:12 PM EDT Oxygen Saturation 97% 12/28/2024 2:12 PM EDT Inhaled Oxygen Concentration - - Weight 59.2 kg (130 lb 8.2 oz) 09/07/2024 1:47 P M EST Height 152.4 cm (5') 09/07/2024 1:47 PM EST Body Mass Index 25.49 09/07/2024 1:47 PM EST Plan of Treatment Upcoming Encounters Date Type Department Care Team (Latest Contact Info) Description 01/25/2025 2:30 PM EDT Nurse Visit Hematology/Oncology [address] [place] [address] [place] [address] Matteo Kennedy Nurse Ervin [address] [place] [address] B12(sent Msg) 02/22/2025 2:15 PM EDT Office Visit [facility] [address] [facility] [place] [address] follow up lab and B12 02/22/2025 2:30 PM EDT Visit (SP) Office Hematology/Oncology [address] [facility] [place] [address] Kim Maldonado, FIELD SERVICER.ORE ROASTER [address] [place] [address] follow up lab and B12 02/22/2025 3:00 PM EDT Nurse Visit Hematology/Oncology [address] [place] [address] Matteo Kennedy Nurse Ervin [address] [facility] [place] [address] follow up lab and B12 Health Maintenance Due Date Last Done Comments Anxiety Screening 1971 Depression Screening 1971 Hepatitis C Screening 1971 DTaP,Tdap,Td Vaccine (1 - Tdap) 1972 CT Colonography 1998 Cologuard (FIT-DNA) 1998 Fecal Occult Blood 1998 Lipid Screening 1998 Sigmoidoscopy 1998 Pneumococcal Vaccine: 50+ (1 of 1 - PCV) 2003 Shingrix Vaccine (2 of 3) 08/23/2015 06/28/2015 Colonoscopy 11/15/2016 11/16/2015 Colorectal Cancer Screening 11/15/2016 Mammogram Screening 05/29/2023 05/29/2022, 05/26/2021, 10/29/2019, Additional history exists Covid-19 Vaccine (1 - 2023-2 5 season) 2024 Advance Directive Discussion 08/26/2024 Influenza Vaccine (Season Ended) 2025 Diabetes Screening 12/01/2027 11/30/2024, 0 09/07/2024, 06/15/2024, Additional history exists RSV Vaccine (1 - 1-dose 75+ series) 2028 Bone Density Screening Completed 10/24/2021, 2018 Procedures Procedure Name Priority Date/Time Associated Diagnosis Comments FOLATE SERUM Routine 11/30/2024 1:43 PM EDT 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 deficiency VITAMIN B12 BLOOD Routine 11/30/2024 1:4 3 PM EDT 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 deficiency FERRITIN BLD Routine 11/30/2024 1:43 PM EDT 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 deficiency IRON + TIBC Routine 11/30/2024 1:43 PM EDT 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 deficiency COMPREHENSIVE METABOLIC PANEL Routine 11/30/2024 1:43 PM EDT 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 deficiency CBC + DIFF Routine 11/30/2024 1:43 PM EDT 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 deficiency from Last 3 Months Results * VITAMIN B12 (11/30/2024 1:43 PM EDT) Vitamin B12 578 232 - 1,245 pg/mL 12/01/2024 2:12 AM EDT [facility] Blood BLOOD SPECIMEN / Unknown Venipuncture / Unknown 11/30/2024 1:43 PM EDT 11/30/2024 1:43 PM EDT us Maikel Resendiz MD LABORATORY Final Result [facility] [address] [address], [place] * IRON AND TIBC (11/30/2024 1:43 PM EDT) Iron 93 41 - 186 ug/dL 12/01/2024 1:51 AM EDT [facility] TIBC 362 232 - 386 ug/dL 12/01/2024 1:51 AM EDT [facility] Transferrin Saturation 25.7 15.0 - 57.0 % 12/01/2024 1:51 AM EDT [facility] Blood BLOOD SPECIMEN / Unknown Venipuncture / Unknown 11/30/2024 1:43 PM EDT 11/30/2024 1:43 PM EDT us Maikel Resendiz MD LABORATORY Final Result Performing Organization Address City/[facility]/ZIP Co de Phone Number [facility] [address] [address], [place] * FOLATE, SERUM (11/30/2024 1:43 PM EDT) Pathologist [facility] Folate 19.3 >4.7 ng/mL 12/01/2024 2:12 AM EDT [facility] Blood BLOOD SPECIMEN / Unknown Venipuncture / Unknown 11/30/2024 1:43 PM EDT 11/30/2024 1:43 PM EDT us Maikel Resendiz MD LABORATORY Final Result Performing Organization Address City/[facility]/ZIP Co de Phone Number [facility] [address] [place] [address], [place] * FERRITIN (11/30/2024 1:43 PM EDT) Pathologist [facility] Ferritin 27.4 14.7 - 205.1 ng/mL 12/01/2024 8:53 AM EDT [facility] Blood BLOOD SPECIMEN / Unknown Venipuncture / Unknown 11/30/2024 1:43 PM EDT 11/30/2024 1:43 PM EDT us Maikel Resendiz MD LABORATORY Final Result [facility] [address] [place] [id number], [place] * (ABNORMAL) COMPREHENSIVE METABOLIC PANEL (11/30/2024 1:43 PM EDT) Pathologist [facility] Protein, Total 7.3 6.3 - 8.0 g/dL 11/30/2024 2:29 PM EDT [facility] Albumin 4.3 3.9 - 4.9 g/dL 11/30/2024 2:29 PM EDT [facility] Calcium, Total 10.3(H) 8.5 - 10.2 mg/dL 11/30/2024 2:29 PM EDT [facility] Bilirubin, Total 0.3 0.2 - 1.3 mg/dL 11/30/2024 2:29 PM EDT [facility] Alkaline Phosphatase 60 34 - 123 U/L 11/30/2024 2:29 PM EDT [facility] AST 18 13 - 35 U/L 11/30/2024 2:29 PM EDT [facility] ALT 15 7 - 38 U/L 11/30/2024 2:29 PM EDT [facility] Glucose 87 74 - 99 mg/dL 11/30/2024 2:29 PM EDT [facility] Comment: The [place] Diabetes Association (ADA) provides guidance for cutoff [...] Standards of Medical Care in Diabetes 2016, [place] Diabetes Association. Diabetes Care. 2016.39(Suppl 1). BUN 13 7 - 21 mg/dL 11/30/2024 2:29 PM T [facility] Creatinine 0.65 0.58 - 0.96 mg/dL 11/30/2024 2:29 PM EDT [facility] Sodium 141 136 - 144 mmol/L 11/30/2024 2:29 PM EDT [facility] Potassium 4.1 3.7 - 5.1 mmol/L 11/30/2024 2:29 PM EDT [facility] Chloride 102 98 - 107 mmol/L 11/30/2024 2:29 PM EDT [facility] CO2 27 22 - 30 mmol/L 11/30/2024 2:29 PM EDT [facility] Anion Gap 12 8 - 15 mmol/L 11/30/2024 2:29 PM EDT [facility] Estimated Glomerular Filtration Rate 94 >=60 mL/min/1. 73m 11/30/2024 2:29 PM EDT [facility] Comment:Estimated Glomerular Filtration Rate (eGFR) is calculated using the 2020 CKD-EPI creatinine equation. This equation utilizes serum creatinine, sex, and age as parameters. The creatinine assay has traceable calibration to isotope dilution- mass spectrometry. Refer to KDIGO guidelines for clinical interpretation. In patients with unstable renal function, e.g. those with acute kidney injury, the eGFR may not accurately reflect actual GFR. Blood BLOOD SPECIMEN / Unknown Venipuncture / Unknown 11/30/2024 1:43 PM EDT 11/30/2024 1:43 PM EDT Maikel Resendiz MD LABORATORY Final Result [facility] [address] [place] [address] * (ABNORMAL) COMPLETE BLOOD COUNT AND DIFFERENTIAL (11/30/2024 1:43 PM EDT) WBC 6.57 3.70 - 11.00 k/uL 11/30/2024 1:47 PM EDT [facility] RBC 4.55 3.90 - 5.20 m/uL 11/30/2024 1:47 PM EDT [facility] Hemoglobin 12.9 11.5 - 15.5 g/dL 11/30/2024 1:47 PM EDT [facility] Hematocrit 39.8 36.0 - 46.0 % 11/30/2024 1:47 PM EDT [facility] MCV 87.5 80.0 - 100.0 fL 11/30/2024 1:47 PM EDT [facility] MCH 28.4 26.0 - 34.0 pg 11/30/2024 1:47 PM EDT [facility] MCHC 32.4 30.5 - 36.0 g/dL 11/30/2024 1:47 PM EDT [facility] RDW-CV 14.6 11.5 - 15.0 % 11/30/2024 1:47 PM EDT [facility] Platelet Count 223 150 - 400 k/uL 11/30/2024 1:47 PM EDT [facility] MPV 8.8(L) 9.0 - 12.7 fL 11/30/2024 1:47 PM EDT [facility] Neutrophils % 50.4 % 11/30/2024 1:47 PM EDT [facility] Abs Neut 3.32 1.45 - 7.50 k/uL 11/30/2024 1:47 PM EDT [facility] Lymphocytes % 34.1 % 11/30/2024 1:47 PM EDT [facility] Abs Lymph 2.24 1.00 - 4.00 k/uL 11/30/2024 1:47 PM EDT [facility] Monocytes % 11.0 % 11/30/2024 1:47 PM EDT [facility] Abs [place] 0.72 <0.87 k/uL 11/30/2024 1:47 PM EDT [facility] Eosinophils % 3.2 % 11/30/2024 1:47 PM EDT [facility] Abs Eosin 0.21 <0.46 k/uL 11/30/2024 1:47 PM EDT [facility] Basophils % 0.8 % 11/30/2024 1:47 PM EDT [facility] Abs Baso 0.05 <0.11 k/uL 11/30/2024 1:47 PM EDT [facility] Immature Granulocytes % 0.5 % 11/30/2024 1:47 PM EDT [facility] Abs Immature Gran 0.03 <0.10 k/uL 025 1:47 PM EDT [facility] NRBC 0.0 /100 WBC 11/30/2024 1:47 PM EDT [facility] Absolute nRBC <0.01 <0.01 k/uL 11/30/2024 1:47 PM EDT [facility] Diff Type Auto 11/30/2024 1:47 PM EDT [facility] Blood BLOOD SPECIMEN / Unknown Venipuncture / Unknown 11/30/2024 1:43 PM EDT 11/30/2024 1:43 PM EDT Maikel Resendiz MD LABORATORY Final Result [facility] [address] [place] [address] from Last 3 Months Insurance MEDICARE [facility]PPLE[facility] Care Teams Locomotive Switch Operator Relationship Specialty Start Date End Date Gamal Mari MD [address] [facility] [address] [place] [address] PCP - General Family Medicine 11/05/18 Gamal Mari MD [address] [place] [id number] Referring Family Medicine 11/05/18
--- OUTSIDE RECORDS SUMMARY | 2025-01-21 13:43 | XMS_ITS | Encounter Summary ---
Author Organization [facility] Address [address] [place] [address] Care Team Providers Care Mechanical System Technician Name Role Phone Gamal Mari MD Unavailable Gamal Mari MD Primary Care Provider [phone] Emmie Dela Cruz RN Unavailable [phone] Encounter Details Date Type Department Care Team (Late st Contact Info) Description 08/23/2023 Orders Only [facility] [address] [place] [phone] A, Unknown Practice [address] [place] [phone] Social History Tobacco Use Types Packs/Day Years [...] and Family Not on file 08/05/2023 Attends [employer] Not on file 08/05 Active Member [...] and heating? Not hard at all 02/21/2023 [facility] - Occupational [...] place to sleep or slept in a retirement (including now)? No 02/21/2023 Comments Unknown Sex [...] EDT Office Visit [facility] [address] [place] [address] Cristiane Duckworth MD [address] [place] [address] documented as of this encounter Procedures Procedure Name Priority Date/Time Associated Diagnosis Comments SCANNED LABS Routine 08/22/2023 8:21 AM EST documented in this encounter Results * SCANNED LABS (08/22/2023 8:21 AM EST) us Unknown Practice A LAB CHG PERFORMABLES Final Re sult documented in this encounter Visit Diagnoses Not on filedocumented in this encounter Care Teams Mechanical System Technician Relationship Specialty Start Date End Date Gamal Mari MD [address] [place] [address] PCP - ACO Reach 01/17/23 Gamal Mari MD [address] [place] [address] PCP - General Family Medicine 01/28/23 Emmie Dela Cruz, YAA Registered Nurse Family Medicine 08/05/23 10/21/24 documented as of this encounter
== END 2025-01-21 13:40 | disposition home or self-care (01) ==
PROVIDERS: PCP Physician Assistant; Visit Provider Nurse Practitioner Family
DX: R51.9 Headache, unspecified (principal); M54.2 Cervicalgia; Q79.9 Congenital malformation of musculoskeletal system, unspecified
CPT/HCPCS: 70450

== ENCOUNTER 2025-01-26 14:14 | Outpatient (OUT) | payer MEDICARE, OTHER, SELFPAY ==
--- OUTSIDE RECORDS SUMMARY | 2025-01-14 14:30 | XMS_ITS | Encounter Summary ---
Author Organization [facility] Address [address] [facility] [place] [address] Care Team Providers Care Homicide Detective Name Role Phone Gamal Mari MD Unavailable Gmaal Mari MD Primary Care Provider [phone] Reason for Referral * Imaging (Routine) - Authorized Specialty Diagnoses / Procedures Referred By Contac t Referred To Contact Acute [facility] Diagnoses New onset headache Neck pain on left side Bony abnormality Procedures CT head wo IV contrast Yulia Pollock NP [address] [facility] [address] [place] [address] Phone: tel: fax: [facility] [address] [place] [address] Phone: tel: fax: Referral ID Status Reason Start Date Expiration Date V isits Requested Visits Authorized [id number] Authorized 01/14/2025 07/13/2025 1 1 Encounter Details Date Type Department Care Team (Late st Contact Info) Description 01/14/2025 2:30 PM EDT Office Visit [facility] [address] [facility] [address] [place] [id number] Yulia Pollock NP [address] [facility] [address] [place] [address] New onset headache (Primary Dx); Neck pain on left side; Bony abnormality Social History Tobacco Use Types Packs/Day Years Used Date Smoking Tobacco: Every Day Cigarettes 1 15 Smokeless Tobacco: Never Tobacco Cessation:Ready to Q uit: Not Asked; Counseling Given: Yes Comments:11-20 cigs/day Alcohol Use Standard Drinks/Week Comments Not Currently 0 (1 standard drink = 0.6 oz pure alcohol) Caffeine intake:more than 4 cups per day, soda Humiliation, Afraid, Rape, and Kick questionnair e Answer Date Recorded Within the last year, have y ou been afraid of your partner or ex-partner? No 02/21/2023 Within the last year, have y ou been humiliated or emotionally abused in other ways by your partner or ex-partner? No Within the last year, have y ou been kicked, hit, slapped, or otherwise physically hurt by your partner or ex-partner? No 02/21/2023 Within the last year, have y ou been raped or forced to have any kind of sexual activity by your partner or ex-partner? No 02/21/2023 Social Connection and Isolat ion Panel [NHANES] Answer Date Recorded Frequency of Communication w ith Friends and Family Not on file 08/05/2023 Frequency of Social Gatherin gs with Friends and Family Not on file 08/05/2023 Attends Zoroastrian Services Not on file 08/05 Active Member of Clubs or Organizations Not on f ile 08/05/2023 How often do you attend meet ings of the clubs or organizations you belong to? More than 4 times per year 08/05/2023 Marital Status Not on file 08/05/2023 AUDIT-C Answer Date Recorded Q1: How often do you have a drink containing alc ohol? Monthly or less 03/08/2023 Q2: How many drinks containi ng alcohol do you have on a typical day when you are drinking? 1 or 2 03/08/2023 Frequency of Binge Drinking Not on file 02/23 Overall Financial Resource Strain (CARDIA) Answe r Date Recorded How hard is it for you to pa y for the very basics like food, housing, medical care, and heating? Not hard at all 02/21/2023 PHQ-2 Answer Date Recorded Patient Health Questionnaire-2 Score 0 01/14/2025 [place] [place] [facility] - Occupational Stress Questionnaire Answer Date Recorded Do you feel stress - tense, restless, nervous, or anxious, or unable to sleep at night because your mind is troubled all the time - these days? Only a little 02/21/2023 Exercise Vital Sign Answer Date Recorde d Days of Exercise per Week Not on file 2022 On average, how many minutes do you engage in exercise at this level? 0 min 08/05/2023 Hunger Vital Sign Answer Date Recorded Within the past 12 months, y ou worried that your food would run out before you got the money to buy more. Never true 02/22/20 23 Within the past 12 months, t he food you bought just didn't last and you didn't have money to get more. Never true 02/21/2023 PRAPARE - Transportation Answer Date Re corded In the past 12 months, has l ack of transportation kept you from medical appointments or from getting medications? No 01/25 In the past 12 months, has l ack of transportation kept you from meetings, work, or from getting things needed for daily living? No 02/21/2023 Housing Stability Vital Sign Answer Addison e Recorded In the last 12 months, was t here a time when you were not able to pay the mortgage or rent on time? No 02/21/2023 In the last 12 months, how many places have you lived? 1 02/21/2023 In the last 12 months, was t here a time when you did not have a steady place to sleep or slept in a senior care (including now)? No 02/21/2023 Comments Unknown Sex and Gender Information Value Date Recorded Sex Assigned at Not on file Legal Sex Female 7:13 PM EDT Gender Identity Not on file Sexual Orientation Not on file documented as of this encounter Last Filed Vital Signs Vital Sign Reading Time Taken Comments Blood Pressure 116/68 01/14/2025 2:28 PM EDT Pulse 82 01/14/2025 2:28 PM EDT Temperature - - Respiratory Rate 16 01/14/2025 2:28 PM EDT Oxygen Saturation 97% 01/14/2025 2:28 PM EDT Inhaled Oxygen Concentration - - Weight 59.4 kg (131 lb) 01/14/2025 2:28 PM EDT Height 154.9 cm (5' 1 ) 01/14/2025 2:28 PM EDT Body Mass Index 24.75 01/14/2025 2:28 PM EDT documented in this encounter Functional Status * Over the past 2 weeks, how often have you been bothered by any of the following problems? Question Answer Date of Assessment Author Little interest or pleasure in doing things Not at all 01/14/2025 2:23 PM EDT PEPE GRAJEDA Feeling down, depressed, or hopeless Not at all 12/25 2:23 PM EDT PEPE GRAJEDA Patient Health Questionnaire-2 Score 0 12/25 2:23 PM EDT PEPE GRAJEDA documented as of this encounter Progress Notes * Yulia Pollock NP - 01/14/2025 2:30 PM EDT Images from the original note were not included. Subjective Patient ID: Ivonne Del Castillo is a 69 y.o. female who presents for No chief complaint on file.. Ivonne presents today for a F/U from having neck pain. She was seen on 12/07/24 and given Tizanidine and prednisone. She is still in pain that is now going down to the collar bone and the pain is giving her a headache. Neck Pain This is a new problem. The current episode started more than 1 month ago. The problem occurs constantly. The problem has been gradually worsening. The pain is associated with nothing. The pain is present in the left side. The quality of the pain is described as aching. The pain is at a severity of 10/10. The pain is severe. Exacerbated by: more active, more pain. The pain is Worse during the night. Associated symptoms include headaches. She has tried heat (steroids, muscle relaxer, bengay) for the symptoms. The treatment provided mild relief. Current Outpatient Medications on File Prior to Visit Medication Sig Dispense Refill Duommln-Wxhcuuvtge-Eysbmau D (CALCIUM GUMMIES PO) Take 2 each by mouth Daily as needed 500mg gummies cyanocobalamin (Vitamin B-12) 1000 MCG/ML injection 1 mL Injection monthly denosumab (Prolia) 60 MG/ML solution prefilled syringe Inject 60 mg under the skin. EVERY 6 MONTHS diphenoxylate-atropine (Lomotil) 2.5-0.025 MG tablet Take 2 tablets by mouth at noon and 2 tablets in the evening. DULoxetine (Cymbalta) [address] capsule Take 1 capsule (60 mg) by mouth Daily Do not crush or chew. levothyroxine (Synthroid, Levoxyl) 50 MCG tablet Take 50 mcg by mouth in the morning. Take before meals. Mondays and it is increased to 75mg. Probiotic Product (ALIGN PO) Take 1 tablet by mouth in the morning. sertraline (Zoloft) 50 MG tablet TAKE 1 TABLET BY MOUTH EVERY DAY 90 tablet 4 tiZANidine (Zanaflex) 4 MG tablet Take 1 tablet (4 mg) by mouth every 8 (eight) hours if needed formuscle spasms 30 tablet 2 No current facility-administered medications on file prior to visit. I have reviewed and reconciled the history and medication list with the patient today. Allergies Allergen Reactions Barium Sulfate Nausea And Vomiting Bupropion Unknown and Other Social History Tobacco Use Smoking status: Every Day Current packs/day: 1.00 Average packs/day: 1 pack/day for 15.0 years (15.0 ttl pk-yrs) Types: Cigarettes Smokeless tobacco: Never Tobacco comments: 11-20 cigs/day Vaping Use Vaping status: Never Used Substance Use Topics Alcohol use: Not Currently Comment: Caffeine intake:more than 4 cups per day, soda Drug use: Not Currently Family History Problem Relation Name Age of Onset Diabetes Mother Dominga Wallace Heart disease Mother Dominga Wallace Arthritis Mother Dominga Wallace Heart failure Mother Dominga Wallace Emphysema Father Cancer Sister Yvette Barrios Hypertension Sibling Cancer Sibling Past Medical History: Diagnosis Date Abnormal mammogram 10/20/2019 Category 4 Arthritis ? Autoimmune thyroiditis (CMS/HCC) Diverticulosis Ductal carcinoma in situ of breast H/O CT scan 06/26/2021 Ct scan enlarged right retrocrural lymph node. Diverticulosis H/O CT scan 10/24/2021 CT scan of lung was benign findings category 2 H/O CT scan 02/02/2022 CT scan of Abdomen: Hepatomegaly with hepatic steatosis. Extensive colonic diverticulosis without evidence of acute diverticulitis IBS (irritable bowel syndrome) Obstructive chronic bronchitis with exacerbation (CMS/HCC) Urinary tract infection January 2023 Visit for review of DEXA scan 10/24/2021 Dexa Femur Troch right is -2.9 Past Surgical History: Procedure Laterality Date BACK SURGERY 05/17/2021 BREAST BIOPSY 10/27/2018 stereotactic BREAST BIOPSY Left 10/27/2019 BREAST LUMPECTOMY 11/28/2018 CHOLECYSTECTOMY 2012 COLONOSCOPY 11/16/2015 COLONOSCOPY 05/16/2021 COLONOSCOPY 06/29/2024 ESOPHAGOGASTRODUODENOSCOPY 2013 with biopsy x2 LUMBAR DISCECTOMY MASTECTOMY, PARTIAL Right OTHER SURGICAL HISTORY 10/20/2020 Right L5-S1 hemilaminotomy and discectomy Dr. Aquino SPINE SURGERY 2018 TOTAL VAGINAL HYSTERECTOMY 2007 TUBAL LIGATION 1985 Visit Vitals Smoking Status Every Day Review of Systems Musculoskeletal: Positive for neck pain. Neurological: Positive for headaches. Objective Physical Exam Vitals reviewed. Constitutional: Appearance: Normal appearance. HENT: Head: Normocephalic. Mouth/Throat: Mouth: Mucous membranes are moist. Pharynx: Oropharynx is clear. Eyes: Conjunctiva/sclera: Conjunctivae normal. Cardiovascular: Rate and Rhythm: Normal rate. Pulmonary: Effort: Pulmonary effort is normal. Musculoskeletal: General: Tenderness present. Cervical back: Pain with movement and muscular tenderness present. Skin: General: Skin is warm and dry. Neurological: General: No focal deficit present. Mental Status: She is alert and oriented to person, place, and time. Psychiatric: Mood and Affect: Mood normal. Behavior: Behavior normal. Thought Content: Thought content normal. Assessment/Plan Diagnoses and all orders for this visit: New onset headache - CT head wo IV contrast; Future Await CT scan. The pain is going from her neck into the back of her eye and then up her head. Neck pain on left side - CT head wo IV contrast; Future The muscle relaxer was ineffective as well as the steroid. Await results of CT scan. She does not wish to be placed on any other medications at this time. Continue with heat to help with the pain. You can continue to take a bath in epsom salts. Bony abnormality - CT head wo IV contrast; Future Await results. No follow-ups on file. documented in this encounter Plan of Treatment Upcoming Encounters Date Type Department Care Team (Late st Contact Info) Description 02/10/2025 1:00 PM EDT Office Visit [facility] [address] [place] [address] Cristiane Duckworth MD [address] [place] [address] Scheduled Orders Name Type Priority Associated Diagnoses Orde r Schedule CT head wo IV contrast Imaging Routine New onset headache Neck pain on left side Bony abnormality Expected: 01/14/2025, Expires: 01/14/2026 documented as of this encounter Goals Goal Patient Goal Type Associated Problems Recent Progress Patient-Stated? Author Help patient manage antidepressant medication Care Plan Patient on antidepressant monitoring plan No Gamal Mari MD documented as of this encounter Visit Diagnoses Diagnosis New onset headache- Primary Headache Neck pain on left side Bony abnormality documented in this encounter Additional Health Concerns Active Problems Noted Date Diagnosed Date Patient on antidepressant monitoring plan 2023 Assessment Noted Time PHQ-9 Depression Total Score: 0 10/21/19 24 10:00 AM EST documented as of this encounter Care Teams Homicide Detective Relationship Specialty Start Date End Date Gamal Mari MD [address] [facility] [address] [place] [address] PCP - ACO Reach 01/17/23 Gamal Mari MD [address] [facility] [address] [place] [address] PCP - General Family Medicine 01/28/23 documented as of this encounter
--- OUTSIDE RECORDS SUMMARY | 2025-01-25 14:30 | XMS_ITS | Encounter Summary ---
Author Organization [facility] Address [address] [place] [id number] Care Team Providers Care Miniature Set Constructor Name Role Phone Gamal Mari MD Primary Care Provider [phone] Gamal Mari MD Unavailable [phone] Source Comments In the event this information is protected by the Federal Confidentiality of Alcohol and Drug AbusePatient Records regulations: The Federal rules restrict any use of the information to criminally investigate or prosecute any alcohol or drug abuse patient.[facility] Encounter Details Date Type Department Care Team (Late st Contact Info) Description 01/25/2025 2:30 PM EDT Nurse Visit Hematology/Oncology [address] [facility] [place] [address] Matteo Kennedy Nurse Ervin [address] [facility] [place] [address] Anemia, unspecified type (Primary Dx); 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 deficiency Social History Tobacco Use Types Packs/Day Years [...] is lower risk 8 03/13/2023 Data from: https://www.neighborhoodatlas.medicine.[facility].edu/. Last address used for calculation [address] 03/13/2023 Comments No Sex and Gender Information Value Date Recorded Sex Assigned at Not on file Legal Sex Female 10:38 AM EDT Gender Identity Not on file Sexual Orientation Not on file documented as of this encounter Last Filed Vital Signs Vital Sign Reading Time Taken Comments Blood Pressure 112/73 01/25/2025 2:35 PM EDT Pulse 87 01/25/2025 2:35 PM EDT Temperature 36.4 C (97.6 F) 01/25/2025 2:35 PM EDT Respiratory Rate 16 01/25/2025 2:35 PM EDT Oxygen Saturation 95% 01/25/2025 2:35 PM EDT Inhaled Oxygen Concentration - - Weight - - Height - - Body Mass Index - - documented in this encounter Progress Notes * Mireya Prescott MA - 01/25/2025 2:37 PM EDT Patient Identification confirmed: yes. Injection given and documented on OCT per provider order. Mireya Prescott MA documented in this encounter Plan of Treatment Upcoming Encounters Date Type Department Care Team (Latest Contact Info) Description 02/22/2025 2:15 PM EDT Office Visit [facility] [address] [place] [address] follow up lab and B12 02/22/2025 2:30 PM EDT Visit (SP) Office Hematology/Oncology [address] [place] [address] Kim Maldonado APRN.ADVERTISING LAYOUT WORKER [address] [place] [address] follow up lab and B12 02/22/2025 3:00 PM EDT Nurse Visit Hematology/Oncology [address] [place] [address] Matteo Kennedy Nurse Ervin [address] [facility] [place] [address] follow up lab and B12 03/22/2025 2:00 PM EDT Nurse Visit Hematology/Oncology [address] [facility] [address] Matteo Kennedy Nurse Ervin [address] [facility] [address] follow up lab and B12 04/20/2025 2:00 PM EDT Nurse Visit Hematology/Oncology [address] [facility] [address] Matteo Kennedy Nurse Ervin [address] [facility] [address] follow up lab and B12 05/18/2025 2:00 PM EDT Nurse Visit Hematology/Oncology [address] [facility] [address] Matteo Kennedy Nurse Ervin [address] [facility] [address] follow up lab and B12 06/15/2025 2:00 PM EDT Nurse Visit Hematology/Oncology [address] [facility] [place] [address] Matteo Kennedy Nurse Ervin [address] [facility] [address] follow up lab and B12 documented as of this encounter Visit Diagnoses Diagnosis Anemia, 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 Other vitamin B12 deficiency anemia documented in this encounter Administered Medications Inactive Administered Medications - up to 3 most recent administrations Medication Order MAR Action Action Date Dose Rate Site cyanocobalamin 1,000 mcg injection 1,000 mcg, INTRAMUSCULAR, ONCE, 1 dose, On Sat01/25/25 at 1430Indications:Anemia, unspecified type,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 deficiency Given 01/25/2025 2:43 PM EDT 1,000 mcg Deltoid, Right documented in this encounter Care Teams Miniature Set Constructor Relationship Specialty Start Date End Date Gamal Mari MD [address] [place] [address] PCP - General Family Medicine 11/05/18 Gamal Mari MD [address] [place] [address] Referring Family Medicine 11/05/18 documented as of this encounter
--- OUTSIDE RECORDS SUMMARY | 2025-01-26 13:30 | XMS_ITS | Encounter Summary ---
Author Organization [facility] Address [address] [facility] [place] [address] Care Team Providers Care Traffic Line Painter Name Role Phone Gamal Mari MD Unavailable Gamal Mari MD Primary Care Provider [phone] Reason for Referral * Rehabilitation - Outpatient (Routine) - Authorized Specialty Diagnoses / Procedures Referred By Shaka john Referred To Contact Physical Therapy Diagnoses Muscle spasms of neck Procedures MI OFFICE/OUTPATIENT [facility] MDM 60 MINUTES Francisca Saenz PA [address] [facility] 110 [place] [address] Phone: tel: fax: [facility] [address] [place] [address] Phone: tel: fax: Referral ID Status Reason Start Date Expiration Date Visits Requested Visits Authorized [id number] Authorized Specialty Services Required 01/26/2025 07/25/2025 10 10 Scheduling Instructions Please call patient to schedule with PT at [facility] Encounter Details Date Type Department Care Team (Late st Contact Info) Description 01/26/2025 1:30 PM EDT Office Visit [facility] [address] [facility] 110 [place] [address] Francisca Saenz PA [address] [facility] 110 [place] [address] Muscle spasms of neck (Primary Dx); Fibromyalgia; Recurrent major depressive disorder, in partial remission (HCC) (CMS/HCC) Social History Tobacco Use Types Packs/Day Years [...] and Family Not on file 08/05/2023 Attends Baptism Services Not on file 08/05 Active Member [...] Date Recorded Patient Health Questionnaire-2 Score 0 01/26/2025 [facility] [place] of Occupat ional Health - Occupational Stress [...] place to sleep or slept in a intermediate (including now)? No 02/21/2023 Comments Unknown Sex and Gender Information Value Date Recorded Sex Assigned at Not on file Legal Sex Female 7:13 PM EDT Gender Identity Not on file Sexual Orientation Not on file documented as of this encounter Last Filed Vital Signs Vital Sign Reading Time Taken Comments Blood Pressure 112/78 01/26/2025 1:28 PM EDT Pulse 82 01/26/2025 1:28 PM EDT Temperature - - Respiratory Rate 16 01/26/2025 1:28 PM EDT Oxygen Saturation 99% 01/26/2025 1:28 PM EDT Inhaled Oxygen Concentration - - Weight 59.3 kg (130 lb 12.8 oz) 01/26/2025 1:28 PM EDT Height 154.9 cm (5' 1 ) 01/26/2025 1:28 PM EDT Body Mass Index 24.71 01/26/2025 1:28 PM EDT documented in this encounter Functional Status * Over the past 2 weeks, how often have you been bothered by any of the following problems? Question Answer Date of Assessment Author Little interest or pleasure in doing things Not at all 01/26/2025 1:23 PM EDT Allyson Arevalo LP N Feeling down, depressed, or hopeless Not at all 01/26/2025 1:23 PM EDT Allyson Arevalo LP N Patient Health Questionnaire -2 Score 0 01/26/2025 1:23 PM EDT Allyson Arevalo LP N documented as of this encounter Progress Notes * DARLENE Lucas - 01/26/2025 1:30 PM EDT Images from the original note were not included. Subjective Patient ID: Ivonne Del Castillo is a 69 y.o. female who presents for neck pain. Ivonne is present today for follow up neck pain. She was seen on 12/07/24 Dx. Acute strain neck muscle, rx'd Prednisone then seen again on 01/14/25 Dx. Neck pain left side, CT head ordered and came back with no abnormalities. Admits she thought she was going to have CT of her neck but it was of her head, Rates pain 8/10, activity makes it worse, worse at night, gives her a headache. She has been amuscle relaxer before bed and it helps her sleep. She does not know if her fibromyalgia could be the cause of the pain. She does have an appt with Dr. Roque in February. States the steroids did not help. Tizanidine helps her body relax, but doesn't help with the pain. C/o redness of bilateral cheeks, concerned she may have lupus. Current Outpatient Medications on File Prior to Visit Medication Sig Dispense Refill Nzyvjkp-Istylsrxzg-Fbrkxfk D (CALCIUM GUMMIES PO) Take 2 each by mouth Daily as needed 500mg gummies cyanocobalamin (Vitamin B-12) 1000 MCG/ML injection 1 mL Injection monthly denosumab (Prolia) 60 MG/ML solution prefilled syringe Inject 60 mg under the skin. EVERY 6 MONTHS diphenoxylate-atropine (Lomotil) 2.5-0.025 MG tablet Take 2 tablets by mouth at noon and 2 tablets in the evening. (Patient not taking: Reported on 01/26/2025) levothyroxine (Synthroid, Levoxyl) 50 MCG tablet Take [...] if needed formuscle spasms 30 tablet 2 [DISCONTINUED] DULoxetine (Cymbalta) [address] capsule Take 1 capsule (60 mg) by mouth Daily Do not crush or chew. No current facility-administered medications on file prior [...] HYSTERECTOMY 2007 TUBAL LIGATION 1985 Visit Vitals BP 112/78 Pulse 82 Resp 16 Ht 5' 1 Wt 130 lb 12.8 oz SpO2 99% BMI 24.71 kg/m?? Smoking Status Every Day BSA 1.6 m?? Review of Systems Constitutional: Positive for fatigue. Negative for chills and fever. Respiratory: Negative for cough, shortness of breath and wheezing. Cardiovascular: Negative for chest pain, palpitations and leg swelling. Gastrointestinal: Negative for abdominal pain, constipation, diarrhea, nausea and vomiting. Musculoskeletal: Positive for arthralgias, back pain, myalgias and neck pain. Skin: Negative for rash. Neurological: Positive for headaches. Objective Physical Exam Constitutional: General: She is not in acute distress. Appearance: Normal appearance. She is well-developed. Comments: Mild flushing of both cheeks HENT: Head: Normocephalic and atraumatic. Eyes: General: No scleral icterus. Conjunctiva/sclera: Conjunctivae normal. Cardiovascular: Rate and Rhythm: Normal rate and regular rhythm. Heart sounds: Normal heart sounds. No murmur heard. Pulmonary: Effort: Pulmonary effort is normal. No respiratory distress. Breath sounds: Normal breath sounds. No wheezing, rhonchi or rales. Musculoskeletal: Cervical back: Spasms, tenderness (Paraspinous and bilat superior trapezius), bony tenderness (Lower cervical spine) and crepitus present. No erythema. Pain with movement present. Decreased range of motion. Comments: ROM limited in all directions, worst with trying to look to the left. Strength intact and symmetric for BUE. N/V status intact BUE. Skin: General: Skin is warm and dry. Neurological: General: No focal deficit present. Mental Status: She is alert and oriented to person, place, and time. Psychiatric: Mood and Affect: Mood normal. Behavior: Behavior normal. Assessment/Plan Diagnoses and all orders for this visit: Muscle spasms of neck - Ambulatory referral to Physical Therapy; Future Provided pt with referral to Physical Therapy, evaluate and treat. Will hold off on any additional imaging at this time as she has no strength or neurologic deficits related to her neck pain. Can consider imaging in the future if needed. Continue Tizanidine as prescribed. It does cause pt drowsiness, so she is to take it more than before bed only if she is staying home and would be able to lay down for a while if needed. Can apply gentle heat to the area. Fibromyalgia - DULoxetine (Cymbalta) [address] capsule; Take 1 capsule (60 mg) by mouth in the morning and 1 capsule (60 mg) before bedtime. Do not crush or chew. Will have patient in crease her Cymbalta to twice a day dosing to attempt to help her Fibromyalgia related pain. Sees Dr. Roque in February, will defer any workup ie labs, to Dr. Roque's discretion. Recurrent major depressive disorder, in partial remission (HCC) (CMS/HCC) If doing well in 1-2 weeks of the BID dosing for Cymbalta, she can try decreasing Zoloft to 25 mg. Goal would be to very slowly taper off of the Zoloft. Advised of potential complications of discontinuing the Zoloft too quickly. If pt has any worsening of her mood with the medication changes she is to contact the office. Follow up in about 4 weeks (around 02/23/2025) for Medicare Wellness Visit, Medication Follow Up. documented in this encounter Plan of Treatment Upcoming Encounters Date Type Department Care Team (Late st Contact Info) Description 02/10/2025 1:00 PM EDT Office Visit [facility] [address] [place] [address] Cristiane Duckworth MD [address] [place] [address] Scheduled Referrals Name Type Priority Associated Diagnoses Order Schedule Ambulatory referral to Physical Therapy Outpatient Referral Routine Muscle spasms of neck Expected: 01/26/2025 (Approximate), Expires: 07/28/2025 documented as of this encounter Goals Goal Patient Goal Type Associated Problems Recent Progress Patient-Stated? Author Help patient manage antidepressant medication Care Plan Patient on antidepressant monitoring plan No Gamal Mari MD documented as of this encounter Visit Diagnoses Diagnosis Muscle spasms of neck- Primary Fibromyalgia Unspecified myalgia and myositis Recurrent major depressive disorder, in partial remission (HCC) ([facility]) documented in this encounter Additional Health Concerns Active Problems Noted Date Diagnosed Date Patient on antidepressant monitoring plan 2023 Assessment Noted Time PHQ-9 Depression Total Score: 0 10/21/19 24 10:00 AM EST documented as of this encounter Care Teams Traffic Line Painter Relationship Specialty Start Date End Date Gamal Mari MD [address] [facility] 110 [place] [address] PCP - ACO Reach 01/17/23 Gamal Mari MD [address] [facility] 110 [place] [address] PCP - General Family Medicine 01/28/23 documented as of this encounter
--- OUTSIDE RECORDS SUMMARY | 2025-01-26 14:24 | XMS_ITS | Encounter Summary ---
Author Organization [facility] Address [address] [place] [address] Care Team Providers Care Supervisor Phosphorus Processing Name Role Phone Gamal Mari MD Unavailable Gamal Mari MD Primary Care Provider [phone] Emmie Dela Cruz RN Unavailable [phone] Encounter Details Date Type Department Care Team (Late st Contact Info) Description 05/14/2024 Abstract [facility] 112 [facility] 110 [place] [address] Gamal Mari MD 112 [facility] 110 [place] [address] Social History Tobacco Use Types [...] Visit [facility] [address] [place] [address] Cristiane Duckworth MD [address] [place] [address] documented as of this encounter Visit Diagnoses Not on filedocumented in this encounter Additional Health Concerns Assessment Noted Time PHQ-9 Depression Total Score: 0 10/21/19 24 10:00 AM EST documented as of this encounter Care Teams Supervisor Phosphorus Processing Relationship Specialty Start Date End Date Gamal Mari MD [address] [place] [address] PCP - ACO Reach 01/17/23 Gamal Mari MD [address] [place] [address] PCP - General Family Medicine 01/28/23 Emmie Dela Cruz, RN Registered Nurse Family Medicine 08/05/23 10/21/24 documented as of this encounter
--- OUTSIDE RECORDS SUMMARY | 2025-01-26 14:24 | XMS_ITS | Encounter Summary ---
Author Organization [facility] Address [address] [place] [address] Care Team Providers Care Bookmobile Clerk Name Role Phone Gamal Mari MD Unavailable Gamal Mari MD Primary Care Provider [phone] Emmie Dela Cruz RN Unavailable [phone] Encounter Details Date Type Department Care Team (Late st Contact Info) Description 03/18/2024 Abstract [facility] 112 [facility] 110 [place] [address] Gamal Mari MD 112 [facility] 110 [place] [address] Social History Tobacco Use Types [...] and Family Not on file 08/05/2023 Attends Taoism Services Not on file 08/05 Active Member [...] Visit [facility] [address] [place] [address] Cristiane Duckworth MD [address] [place] [address] documented as of this encounter Visit Diagnoses Not on filedocumented in this encounter Additional Health Concerns Assessment Noted Time PHQ-9 Depression Total Score: 0 10/21/19 24 10:00 AM EST documented as of this encounter Care Teams Bookmobile Clerk Relationship Specialty Start Date End Date Gamal Mari MD [address] [place] [address] PCP - ACO Reach 01/17/23 Gamal Mari MD [address] [place] [address] PCP - General Family Medicine 01/28/23 Emmie Dela Cruz, RN Registered Nurse Family Medicine 08/05/23 10/21/24 documented as of this encounter
--- OUTSIDE RECORDS SUMMARY | 2025-01-26 14:24 | XMS_ITS | Encounter Summary ---
Author Organization [facility] Address [address] [place] [address] Care Team Providers Care Landscape Specialist Name Role Phone Gamal Mari MD Unavailable Gamal Mari MD Primary Care Provider [phone] Emmie Dela Cruz RN Unavailable [phone] Encounter Details Date Type Department Care Team (Late st Contact Info) Description 03/26/2024 Abstract [facility] 112 [facility] 110 [place] [address] Gamal Mari MD 112 [facility] 110 [place] [address] Social History Tobacco Use Types [...] and Family Not on file 08/05/2023 Attends Pentecostalism Services Not on file 08/05 Active Member [...] Recorded Patient Health Questionnaire-2 Score 0 10/21/2023 [facility] of Occupat ional Health - Occupational [...] Visit [facility] [address] [place] [address] Cristiane Duckworth MD [address] [place] [address] documented as of this encounter Visit Diagnoses Not on filedocumented in this encounter Additional Health Concerns Assessment Noted Time PHQ-9 Depression Total Score: 0 10/21/19 24 10:00 AM EST documented as of this encounter Care Teams Landscape Specialist Relationship Specialty Start Date End Date Gamal Mari MD [address] [place] [address] PCP - ACO Reach 01/17/23 Gamal Mari MD [address] [place] [address] PCP - General Family Medicine 01/28/23 Emmie Dela Cruz, RN Registered Nurse Family Medicine 08/05/23 10/21/24 documented as of this encounter
--- OUTSIDE RECORDS SUMMARY | 2025-01-26 14:24 | XMS_ITS | Encounter Summary ---
Author Organization [facility] Address [address] [place] [address] Care Team Providers Care Restorative Care Technician Name Role Phone Gamal Boggs MD Unavailable Gamal Boggs MD Primary Care Provider [phone] Emmie Dela Cruz RN Unavailable [phone] Encounter Details Date Type Department Care Team (Late st Contact Info) Description 03/18/2024 Clinisync Result Encounter [facility] External Department Unsolicited Gamal Boggs MD [address] [facility] 110 [place] [address] Social History Tobacco Use Types Packs/Day Years [...] and Family Not on file 08/05/2023 Attends Jain Services Not on file 08/05 Active Member [...] Recorded Patient Health Questionnaire-2 Score 0 10/21/2023 [facility] [place] of Occupat ional Health - Occupational Stress [...] Visit [facility] [address] [place] [address] Cristiane Duckworth MD [address] [place] [address] documented as of this encounter Procedures Procedure Name Priority Date/Time Associated Diagnosis Comments XR KNEE 1-2 VIEWS LEFT 03/18/2024 7:39 AM EDT documented in this encounter Results * XR knee 1 or 2 views left (03/18/2024 7:39 AM EDT) Anatomical Region Laterality Modality Lower Extremities, Knee Left [facility] 03/18/2024 7:39 AM EDT Narrative 03/18/2024 7:41 AM EDT The [address] [address] XRay Report Signed Patient: GINNY DEL CASTILLO MR#: [id number] : 1955 Acct:[id number] Age/Sex: 68 / F ADM Date: 03/17/24 Loc: RAD Attending Dr: GAMAL BOGGS Ordering Physician: GAMAL BOGGS Date of Service: 03/17/24 Procedure(s): XR knee LT 2V Accession Number(s): [id number] cc: GAMAL BOGGS ; HONORIO ROJAS [place] [id number] Patient Name: GINNY DEL CASTILLO MRN: [id number] date: 1955 Sex: F Assigned Patient Location: RAD Current Patient Location: Accession/Order Number: [id number] Exam Date: 03/17/2024 12:00 Report Date: 03/18/2024 [...] M.D. Signed By: 03/18/24 0741 DD/ TD/TT: End Trimmer: Procedure Note Radiology, Radiologist, MD - 03/18/2024 [place] [address] XRay Report Signed Patient: GINNY DEL CASTILLO AMR#: [id number] : 1955cct:[id number] Age/Sex: 68 / FADM Date: 03/17/24 Loc: RAD Attending Dr: GAMAL BOGGS Ordering Physician: GAMAL BOGGS Date of Service: 03/17/24 Procedure(s): XR knee LT 2V Accession Number(s): [id number] cc: GAMAL BOGGS ; HONORIO ROJAS [place] [id number] Patient Name: GINNY DEL CASTILLO MRN: [id number] date: 1955 Sex: F Assigned Patient Location: [facility] Current Patient Location: Accession/Order Number: [id number] Exam Date: 03/17/2024 12:00 Report Date: 03/18/2024 [...] M.D. Signed By:03/18/24 0741 DD/ 0739 TD/TT: End Trimmer: Gamal Boggs MD IMG XR PROCEDURES Final Result documented in this encounter Visit Diagnoses Not on filedocumented in this encounter Additional Health Concerns Assessment Noted Time PHQ-9 Depression Total Score: 0 10/21/19 24 10:00 AM EST documented as of this encounter Care Teams Restorative Care Technician Relationship Specialty Start Date End Date Gamal Boggs MD [address] [facility] 110 [place] [address] PCP - ACO Reach 01/17/23 Gamal Boggs MD [address] [facility] [address] [place] [address] PCP - General Family Medicine 01/28/23 Emmie Dela Cruz, YAA Registered Nurse Family Medicine 08/05/23 10/21/24 documented as of this encounter
--- OUTSIDE RECORDS SUMMARY | 2025-01-26 14:25 | XMS_ITS | Encounter Summary ---
Author Organization [facility] Address [address] [place] [address] Care Team Providers Care Records Associate Name Role Phone Gamal Mari MD Unavailable Gamal Mari MD Primary Care Provider [phone] Emmie Dela Cruz RN Unavailable [phone] Encounter Details Date Type Department Care Team (Late st Contact Info) Description 03/28/2023 Abstract [facility] [address] [facility] 110 [place] [address] Gamal Mari MD 112 [facility] 110 [place] [address] Social History Tobacco Use Types [...] often do you attend chur ch or mu-ism services? Patient declined 02/21/2023 Do you belong to any clubs o r organizations such as baptism groups, unions, fraViddsee or athletic groups, or school groups? No [...] and heating? Not hard at all 02/21/2023 [facility] [place] of Occupat ional Health - Occupational Stress [...] Visit [facility] [address] [place] [address] Cirstiane Duckworth MD [address] [place] [address] documented as of this encounter Visit Diagnoses Not on filedocumented in this encounter Care Teams Records Associate Relationship Specialty Start Date End Date Gamal Mari MD [address] [place] [address] PCP - ACO Reach 01/17/23 Gamal Mari MD [address] [place] [address] PCP - General Family Medicine 01/28/23 Emmie Dela Cruz, RN Registered Nurse Family Medicine 08/05/23 10/21/24 documented as of this encounter
--- OUTSIDE RECORDS SUMMARY | 2025-01-26 14:25 | XMS_ITS | Encounter Summary ---
Author Organization [facility] Address [address] [place] [address] Care Team Providers Care Inventory Controller Name Role Phone Gamal Mari MD Unavailable Gamal Mari MD Primary Care Provider [phone] Emmie Dela Cruz RN Unavailable [phone] Encounter Details Date Type Department Care Team (Late st Contact Info) Description 04/02/2023 Abstract [facility] [address] [facility] 110 [place] [address] Gamal Mari MD 112 [facility] 110 [place] [address] Social History Tobacco Use Types [...] often do you attend chur ch or moravian services? Patient declined 02/21/2023 Do you belong to any clubs o r organizations such as protestant groups, unions, fraWillCall or athletic groups, or school groups? No [...] and heating? Not hard at all 02/21/2023 [facility] of Occupat ional Health - Occupational Stress [...] place to sleep or slept in a penitentiary (including now)? No 02/21/2023 Comments Unknown Sex [...] Visit [facility] [address] [place] [address] Cristiane Duckworth MD [address] [place] [address] documented as of this encounter Visit Diagnoses Not on filedocumented in this encounter Care Teams Inventory Controller Relationship Specialty Start Date End Date Gamal Mari MD [address] [place] [address] PCP - ACO Reach 01/17/23 Gamal Mari MD [address] [place] [address] PCP - General Family Medicine 01/28/23 Emmie Dela Cruz, RN Registered Nurse Family Medicine 08/05/23 10/21/24 documented as of this encounter
--- OUTSIDE RECORDS SUMMARY | 2025-01-26 14:25 | XMS_ITS | Encounter Summary ---
Author Organization [facility] Address [address] [place] [address] Care Team Providers Care Lead Front End Developer Name Role Phone Gamal Mari MD Unavailable Gamal Mari MD Primary Care Provider [phone] Encounter Details Date Type Department Care Team (Late st Contact Info) Description 01/26/2025 Bamboo flowsheet [facility] [address] [place] [address] Francisca Saenz, PA [address] [place] [address] Social History Tobacco Use Types [...] and Family Not on file 08/05/2023 Attends Orthodox Services Not on file 08/05 Active Member [...] Recorded Patient Health Questionnaire-2 Score 0 01/26/2025 [facility] of Occupat ional Health [...] [facility] [address] [place] [address] Cristiane Duckworth MD [address] [place] [address] documented as of this encounter Goals Goal [...] documented as of this encounter Care Teams Lead Front End Developer Relationship Specialty Start Date End Date Gamal Mari MD [address] [facility] 110 [place] [address] PCP - ACO Reach 01/17/23 Gamal Mari MD [address] [place] [address] PCP - General Family Medicine 01/28/23 documented as of this encounter
--- OUTSIDE RECORDS SUMMARY | 2025-01-26 14:25 | XMS_ITS | Encounter Summary ---
Author Organization [facility] Address [address] [place] [address] Care Team Providers Care Drying And Winding Supervisor Name Role Phone Gamal Mari MD Unavailable Gamal Mari MD Primary Care Provider [phone] Encounter Details Date Type Department Care Team (Latest Contact Info) Description 01/26/2025 Travel Social History Tobacco Use Types Packs/Day [...] and Family Not on file 08/05/2023 Attends Restorationist Services Not on file 08/05 Active Member [...] Recorded Patient Health Questionnaire-2 Score 0 01/26/2025 [facility] - Occupational Stress Questionnaire Answer Date [...] LP N documented as of this encounter Plan of Treatment Upcoming Encounters Date Type Department Care Team (Late st Contact Info) Description 02/10/2025 1:00 PM EDT Office Visit [facility] [address] [place] [address] Cristiane Duckworth MD [address] [place] [address] documented as of this encounter Goals Goal [...] documented as of this encounter Care Teams Drying And Winding Supervisor Relationship Specialty Start Date End Date Gamal Mari MD [address] [place] [address] PCP - ACO Reach 01/17/23 Gamal Mari MD 112 [facility] 110 [place] [id number] PCP - General Family Medicine 01/28/23 documented as of this encounter
--- OUTSIDE RECORDS SUMMARY | 2025-01-26 14:25 | XMS_ITS | Encounter Summary ---
Author Organization [facility] Address [address] [place] [address] Care Team Providers Care Advertising Sales Executive Name Role Phone Gamal Mari MD Unavailable Gamal Mari MD Primary Care Provider [phone] Encounter Details Date Type Department Care Team (Late st Contact Info) Description 01/21/2025 Results Follow-Up [facility] [address] [place] [phone] Allyson Arevalo LPN [address] [place], [place] [id number] Social History Tobacco Use Types Packs/Day Years [...] and Family Not on file 08/05/2023 Attends Adventism Services Not on file 08/05 Active Member [...] Recorded Patient Health Questionnaire-2 Score 0 01/14/2025 [facility] [...] on file documented as of this encounter Miscellaneous Notes * Telephone Encounter - Allyson Arevalo LPN - 01/21/2025 3:15 PM EDT Pt informed. * Telephone Encounter - Allyson Arevalo LPN - 01/21/2025 3:15 PM EDT ----- Message from Yulia Pollock sent at 01/21/2025 3:10 PM EDT ----- Let pt know that there are some age related changes in her CT but nothing acute and no bony abnormalities. ----- Message ----- From: Valentina Pringle Img Results In Sent: 01/21/2025 2:43 PM EDT To: Yulia Pollock NP documented in this encounter Plan of Treatment Upcoming Encounters Date Type Department Care Team (Late st Contact Info) Description 02/10/2025 1:00 PM EDT Office Visit [facility] [address] [place] [address] Cristiane Duckworth MD [address] [place] [address] documented as of this encounter Goals Goal [...] documented as of this encounter Care Teams Advertising Sales Executive Relationship Specialty Start Date End Date Gamal Mari MD [address] [facility] 110 [place] [address] PCP - ACO Reach 01/17/23 Gamal Mari MD [address] [facility] 110 [place] [address] PCP - General Family Medicine 01/28/23 documented as of this encounter
--- OUTSIDE RECORDS SUMMARY | 2025-01-26 14:25 | XMS_ITS | Encounter Summary ---
Author Organization [facility] Address [address] [place] [address] Care Team Providers Care Shipwright Apprentice Name Role Phone Gamal Mari MD Unavailable Gamal Mari MD Primary Care Provider [phone] Emmie Dela Cruz RN Unavailable [phone] Encounter Details Date Type Department Care Team (Late st Contact Info) Description 12/30/2023 Orders Only [facility] [address] [place] [address] Unallocated, Noms Provider, [address] [place], [place] [phone] Social History Tobacco Use Types Packs/Day Years [...] Recorded Patient Health Questionnaire-2 Score 0 10/21/2023 [facility] Occupat ional [facility] - Occupational Stress [...] place to sleep or slept in a chcf (including now)? No 02/21/2023 Comments Unknown Sex [...] Visit [facility] [address] [place] [address] Cristiane Duckworth MD [address] [place] [address] documented as of this encounter Procedures Procedure Name Priority Date/Time Associated Diagnosis Comments XR KNEE 4+ VIEWS RIGHT Routine 12/26/2023 10:22 AM EDT documented in this encounter Results * XR knee 4+ views right (12/26/2023 10:22 AM EDT) Anatomical Region Laterality Modality Lower Extremities, Knee Right [facility] Noms Provider Unallocated MD WILSON XR PROCEDURES F inal Result documented in this encounter Visit Diagnoses Not on filedocumented in this encounter Additional Health Concerns Assessment Noted Time PHQ-9 Depression Total Score: 0 10/21/19 24 10:00 AM EST documented as of this encounter Care Teams Shipwright Apprentice Relationship Specialty Start Date End Date Gamal Mari MD 112 [facility] 110 [place] [address] PCP - ACO Reach 01/17/23 Gamal Mari MD 112 [facility] 110 [place], [place] [phone] PCP - General Family Medicine 01/28/23 Emmie Dela Cruz, RN Registered Nurse Family Medicine 08/05/23 10/21/24 documented as of this encounter
--- OUTSIDE RECORDS SUMMARY | 2025-01-26 14:25 | XMS_ITS | Encounter Summary ---
Author Organization [facility] Address [address] [place] [address] Care Team Providers Care Carbon Blocks Press Operator Name Role Phone Gamal Mari MD Unavailable Gamal Mari MD Primary Care Provider [phone] Emmie Dela Cruz RN Unavailable [phone] Encounter Details Date Type Department Care Team (Late st Contact Info) Description 06/08/2024 Clinisync Result Encounter [facility] External Department Unsolicited Francisca Saenz, PA 112 [facility] 110 [place] [address] Social History Tobacco Use Types Packs/Day Years [...] and Family Not on file 08/05/2023 Attends [employer]ism Services Not on file 08/05 Active Member [...] Recorded Patient Health Questionnaire-2 Score 0 10/21/2023 [facility] [place] of Occupat ional Health - Occupational Stress [...] Visit [facility] [address] [place] [address] Cristiane Duckworth MD [address] [place] [address] documented as of this encounter Procedures Procedure Name Priority Date/Time Associated Diagnosis Comments MM TOMOSYNTHESIS SCREENING BI 06/08/2024 9:07 AM EDT documented in this encounter Results * MM TOMOSYNTHESIS SCREENING BI (06/08/2024 9:07 AM EDT) Anatomical Region Laterality Modality Other 06/08/2024 9:07 AM EDT Narrative 06/08/2024 9:08 AM EDT The [address] [address] Mammography Report Signed Patient: GINNY DEL CASTILLO MR#: [id number] : 1955 Acct:[id number] Age/Sex: 69 / F ADM Date: 06/05/24 Loc: MAMMO Attending Dr: FRANCISCA SAENZ Ordering Physician: FRANCISCA SAENZ Results: Date of Service: 06/05/24 Follow Up: Procedure(s): MM tomosynthesis screening BI Accession Number(s): [id number] cc: FRANCISCA SAENZ Patient Name: GINNY DEL CASTILLO MR#: [id number] : 1955 Exam Date: 06/05/2024 Ordering Doctor: DR FRANCISCA SAENZ PA RADIOLOGY REPORT PROCEDURE: MM TOMOSYNTHESIS SCREENING BI COMPARISON: MG MAMM DIAGNOSTIC 3D TAMMY CAD, 05/29/2022. MM TOMOSYNTHESIS SCREENING BI, 06/04/2023. INDICATIONS: Screening Calculator Name [facility] Breast Cancer Risk Assessment Tool 5 Year Breast Cancer Risk n/a% Lifetime Breast Cancer Risk n/a% Personal Breast Cancer Yes, DCIS right breast with radiation 2019 Personal Ovarian Cancer No Treatments Radiation Family Cancers Mother with breast cancer at age 59; Sister with colon cancer at age 54. LOCATION: [facility] BREAST COMPOSITION: The breasts are extremely dense, [...] M.D. Signed By: 06/08/24907 DD/ 6 TD/TT: Certified Solid Waste Facility Operator: Procedure Note Radiology, Radiologist, MD - 06/08/2024 [place] [address] Mammography Report Signed Patient: GINNY DEL CASTILLO AMR#: [id number] : 3Acct:[id number] Age/Sex: 69 / FADM Date: 06/05/24 Loc: MAMMO Attending Dr: FRANCISCA SAENZ Ordering Physician: FRANCISCA SAENZ MResults: Date of Service: 06/05/24Follow Up: Procedure(s): MM tomosynthesis screening BI Accession Number(s): [id number] cc: FRANCISCA SAENZ Patient Name: GINNY DEL CASTILLO MR#: [id number] : 1955 Exam Date: 06/05/2024 Ordering Doctor: [...] colon cancer at age 52. LOCATION: [facility] BREAST COMPOSITION: The breasts are extremely dense, [...] Melton M.D. Signed By:06/08/24907 DD/ 6 TD/TT: Certified Solid Waste Facility Operator: us Francisca COLON [facility] Final Result documented in this encounter Visit Diagnoses Not on filedocumented in this encounter Additional Health Concerns Assessment Noted Time PHQ-9 Depression Total Score: 0 10/21/19 24 10:00 AM EST documented as of this encounter Care Teams Carbon Blocks Press Operator Relationship Specialty Start Date End Date Gamal Mari MD [address] [place] [address] 110 [place] [address] PCP - ACO Reach 01/17/23 Gamal Mari MD 112 [facility] 110 [place] [address] PCP - General Family Medicine 01/28/23 Emmie Dela Cruz, YAA Registered Nurse Family Medicine 08/05/23 10/21/24 documented as of this encounter
--- OUTSIDE RECORDS SUMMARY | 2025-01-26 14:25 | XMS_ITS | Clinical Summary ---
Author Organization [facility] Address [address] [place] [address] Care Team Providers Care Dye Tank Tender Name Role Phone Gamal Mari MD Unavailable Gamal Mari MD Primary Care Provider [phone] Allergies Active Allergy Reactions Criticality Noted Date [...] by mouth in the morning. 3 Active Calcium-Phospho evaristo-Vitamin D (CALCIUM GUMMIES PO) Take 2 each by mouth Daily as needed 500mg gummies Active cyanocobalamin (Vitamin B-12) 1000 MCG/ML injection 1 mL Injection monthly Active sertraline (Zoloft) 50 MG tabletIndicatio ns:Major depressive disorder, single episode, unspecified (CMS/HCC) TAKE 1 TABLET BY MOUTH EVERY DAY 90 tablet 4 4 Active diphenoxylate-a tropine (Lomotil) 2.5-0.025 MG tablet Take 2 tablets by mouth at noon and 2 tablets in the evening. 4 Active tiZANidine (Zanaflex) 4 MG tabletIndicatio ns:Back pain of lumbar region with sciatica Take 1 tablet (4 mg) by mouth every 8 (eight) hours if needed for muscle spasms 30 tablet 2 5 Active DULoxetine (Cymbalta) [address] capsuleIndicati ons:Fibromyalgi a Take 1 capsule (60 mg) by mouth in the morning and 1 capsule (60 mg) before bedtime. Do not crush or chew. 60 capsule 5 5 Active DULoxetine (Cymbalta) [address] capsuleIndicati ons:Seasonal affective disorder (CMS/HCC),Fibro myalgia Take 1 capsule (60 mg) by mouth Daily Do not crush or chew. 4 01/27/20 25 Discontinu ed(Reorder ) Active Problems Problem Noted Date Diagnosed Date [...] Encounters Date Type Department Care Team Description 01/26/2025 1:30 PM EDT Office Visit [facility] [address] [place] [address] Francisca Rojas PA Muscle spasms of neck (Primary Dx); Fibromyalgia; Recurrent major depressive disorder, in partial remission (HCC) ([facility]/HCC) 01/26/2025 Bamboo flowsheet [facility] [address] [place] [address] Francisca Rojas PA 01/26/2025 Travel 01/21/2025 Abstract [facility] [address] [place] [address] Gamal Mari MD 01/21/2025 Abstract [facility] [address] [place] [address] Gamal Mari MD 01/21/2025 Results Follow-Up [facility] [address] [place] [address] Allyson Arevalo LPN 01/21/2025 Clinisync Result Encounter [facility] External Department Unsolicited Aggie Pollock NP 01/14/2025 2:30 PM EDT Office Visit [facility] [address] [place] [address] Aggie Pollock NP New onset headache (Primary Dx); Neck pain on left side; Bony abnormality 01/14/2025 Bamboo flowsheet [facility] [address] [place] [address] Aggie Pollock NP 01/14/2025 Travel 12/08/2024 Results Follow-Up [facility] [address] [place] [address] Francisca Rojas PA 12/07/2024 10:15 AM EDT Office Visit [facility] [address] [place] [address] Gamal Mari MD Acute strain of neck muscle, initial encounter (Primary Dx); Back pain of lumbar region with sciatica; Sprain of metacarpophalangeal (MCP) joint of left thumb, initial encounter; Fibromyalgia 12/07/2024 10:00 AM EDT Ancillary Procedure [facility] [address] [place] [address] Sprain of metacarpophalangeal (MCP) joint of left [...] and Family Not on file 08/05/2023 Attends Worship Services Not on file 08/05 Active Member [...] Recorded Patient Health Questionnaire-2 Score 0 01/26/2025 [facility] Questionnaire Answer Date Recorded [...] Pulse 82 01/26/2025 1:28 PM EDT Temperature 37.3 C (99.1 F) 12/10/2023 10:39 AM EDT Respiratory Rate 16 01/26/2025 1:28 PM EDT Oxygen Saturation 99% 01/26/2025 1:28 PM EDT Inhaled Oxygen Concentration - - Weight 59.3 kg (130 lb 12.8 oz) 01/26/2025 1:28 PM EDT Height 154.9 cm (5' 1 ) 01/26/2025 1:28 PM EDT Body Mass Index 24.71 01/26/2025 1:28 PM EDT Plan of Treatment Upcoming Encounters Date Type Department Care Team (Late st Contact Info) Description 02/10/2025 1:00 PM EDT Office Visit [facility] [address] [place] [address] Cristiane Duckworth MD [address] [place] [address] Health Maintenance Due Date Last Done Comments [...] Name Priority Date/Time Associated Diagnosis Comments CT HEAD/BRAIN WO 01/21/2025 2:37 PM EDT XR HAND 1-2 VIEWS LEFT Routine 12/07/2024 [...] Recently Relevant to Health Maintenance Results * CT HEAD/BRAIN WO (01/21/2025 2:37 PM EDT) Anatomical Region Laterality Modality Radiographic Ana Maria ging 01/21/2025 2:37 PM EDT Narrative 01/21/2025 2:40 [place] [address] CT Scan Report Signed Patient: GINNY CESPEDES MR#: [id number] : 1955 Acct:[id number] Age/Sex: 69 / F ADM Date: 01/21/25 Loc: CT Attending Dr: AGGIE POLLOCK Ordering Physician: AGGIE POLLOCK Date of Service: 01/21/25 Procedure(s): CT head/brain wo con Accession Number(s): [id number] cc: FRANCISCA ROJAS [place] [address] Patient Name: GINNY CESPEDES MRN: TBH:[id number] date: 1955 Sex: F Assigned Patient Location: CT Current Patient Location: CT Accession/Order Number: [id number] Exam Date: 01/21/2025 14:33 Report Date: 01/21/2025 14:37 At the request of: AGGIE POLLOCK Procedure: CT head/brain wo con CT head/brain wo con 01/21/2025 2:08 PM SIGNS AND SYMPTOMS: New Onset Headache, Left Side Neck Pain TECHNIQUE:Multi-detector CT axial slices of the brain were obtained without IV contrast. CT was performed with one or more of the following dose reduction techniques: Automated exposure control, adjustment of the mA and/or kV according to patient size, or use of iterative reconstruction technique. COMPARISON: None. FINDINGS: There is no shift of the midline structures, acute intracranial bleeding, mass effects, or evidence of acute ischemia. There is periventricular hypoattenuation. 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 Atherosclerotic changes are noted in the intracranial segments of the internal carotid arteries. The ventricular system is normal in size. The brainstem and the cerebellum are unremarkable. The visualized intraorbital contents, the visualized paranasal sinuses, and the infratemporal soft tissues show no acute abnormality. The osseous structures in the skull base and the calvarium show no abnormality. CT/CT head/brain wo con IMPRESSION: No acute intracranial pathology. Chronic age-related neurodegenerative changes are noted as above. Impression dictated by: Kike Rincon M.D. 01/21/2025 2:37 PM Dictation Location: [place] [address] Electronically authenticated by: [id number] Y Date: 01/21/2025 14:37 Dictated By: Kike Rincon M.D. Signed By: 01/21/25 1440 DD/ 1437 TD/TT: Flexible Babysitter: Procedure Note Radiology, Radiologist, - 01/21/2025 [place] [address] CT Scan Report Signed Patient: GINNY CESPEDES AMR#: [id number] : 1955cct:[id number] Age/Sex: 69 / FADM Date: 01/21/25 Loc: CT Attending Dr: AGGIE POLLOCK Ordering Physician: AGGIE POLLOCK Date of Service: 01/21/25 Procedure(s): CT head/brain wo con Accession Number(s): [id number] cc: FRANCISCA ROJAS [place] [address] Patient Name: GINNY CESPEDES MRN: [facility]:[id number] date: 1955 Sex: F Assigned Patient Location: CT Current Patient Location: CT Accession/Order Number: [id number] Exam Date: 01/21/2025 14:33 Report Date: 01/21/2025 14:37 At the request of: AGGIE POLLOCK Procedure: CT head/brain wo con CT head/brain wo con 01/21/2025 2:08 PM SIGNS AND SYMPTOMS: New Onset Headache, Left Side Neck Pain TECHNIQUE:Multi-detector CT axial slices of the brain were obtainedwithout IV contrast. CT was performed with one or more of the following dosereduction techniques: Automated exposure control, adjustment of the mA and/or kV according to patient size, or use of iterative reconstruction technique. COMPARISON: None. FINDINGS: There is no shift of the midline structures, acute intracranial bleeding, mass effects, or evidence of acute ischemia. There is periventricular hypoattenuation. There is a remote lacunar infarct alongthe anterior margin of the thalamus on the right. Atherosclerotic changes are noted in the intracranial segments of the internal carotid arteries. The ventricular system is normal in size. The brainstem and the cerebellum are unremarkable. The visualized intraorbital contents, the visualizedparanasal sinuses, and the infratemporal soft tissues show no acute abnormality. The osseous structures in the skull base and the calvarium show noabnormality. CT/CT head/brain wo con IMPRESSION: No acute intracranial pathology. Chronic age-related neurodegenerative changes are noted as above. Impression dictated by: Kike Rincon M.D. 01/21/2025 2:37 PM Dictation Location: [place] [address] Electronically authenticated by: [id number] Y Date: 4:37 Dictated By: Kike Rincon M.D. Signed By:01/21/25 1440 DD/ 1437 TD/TT: Flexible Babysitter: Aggie Pollock NP IMG XR PROCEDURES Final Resu lt * XR hand 1 or 2 views left (12/07/2024 11:22 AM EDT) Anatomical Region Laterality Modality Upper Extremities, Hand Left Radiogra phic Imaging 12/07/2024 10:3 1 PM EDT Narrative [...] EDT Specimen Type: BLOOD SPECIMEN Ordering Facility: [facility] Address: [address] [place] [address] Original Ordering Provider: JAEL LUNSFORD Generic External Data Provider [facility] F inal Result Performing Organization Address [facility] de Phone Number [facility] [address] [place] [address] * [facility] IRON+TIBC PNL SERPL (11/30/2024 1:43 PM EDT) [facility] IRON SERPL-[facility] 93 41 - 186 ug/dL [facility] TIBC SERPL-[facility] 362 232 - 386 ug/dL [facility] IRON/TIBC SERPL-SRTO 25.7 15.0 - 57.0 % [facility] 11/30/2024 1:43 PM EDT 12/01/2024 1:19 AM EDT Narrative CLINISYNC - 12/01/2024 1:51 AM EDT Specimen Type: BLOOD SPECIMEN Ordering Facility: [facility] Address: [address] [place] [address] Original Ordering Provider: JAEL LUNSFORD Generic External Data Provider [facility] F inal Result Performing Organization Address [facility] de Phone Number [facility] [address] [address] * [facility] FOLATE SERPL-[facility] (11/30/2024 1:43 PM EDT) [facility] FOLATE SERPL-[facility] 19.3 >4.7 ng/mL [facility] 11/30/2024 1:43 PM EDT 12/01/2024 1:19 AM EDT Narrative CLINISYNC - 12/01/2024 2:12 AM EDT Specimen Type: BLOOD SPECIMEN Ordering Facility: [facility] Address: [address] [place] [address] Original Ordering Provider: JAEL LUNSFORD Generic External Data Provider CLIN[facility] F inal Result Performing Organization Address [facility] de Phone Number HIP[facility]ONC [facility] [address] [address] * [facility] FERRITIN SERPL-[facility] (11/30/2024 1:43 PM EDT) Pathologist [facility] FERRITIN SERPL-[facility]NC 27.4 14.7 - 205.1 ng/mL [facility] 11/30/2024 1:43 PM EDT 12/01/2024 1:19 AM EDT Narrative CLINISYNC - 12/01/2024 8:53 AM EDT Specimen Type: BLOOD SPECIMEN Ordering Facility: [facility] Address: [address] [place] [address] Original Ordering Provider: JAEL LUNSFORD Generic External Data Provider CLIN[facility] F inal Result Performing Organization Address [facility] Co de Phone Number HIPOLITONC CC [address] [address] * (ABNORMAL) [facility] CBC W AUTO DIFF BLD (11/30/2024 1:43 PM EDT) [facility] WBC # BLD AUTO 6.57 3.70 [...] EDT Specimen Type: BLOOD SPECIMEN Ordering Facility: [facility] Address: [address] [place] [address] [place] [address] Original Ordering Provider: JAEL LUNSFORD us Generic External Data Provider HIPOLITOTENA Ciara goodman Result [facility] [address] [place] [address] * (ABNORMAL) [facility] COMP METAB 2000 PNL [...] 74 - 99 mg/dL [facility] Comment: The [place] Diabetes Association (ADA) provides guidance for cutoff [...] Standards of Medical Care in Diabetes 2016, [place] [employer] Association. Diabetes Care. 2016.39(Suppl 1). [facility] [...] PM EDT 11/30/2024 1:43 PM EDT Narrative LUIS - 11/30/2024 2:29 PM EDT Specimen Type: BLOOD SPECIMEN Ordering Facility: [facility] Address: [address] [place] [address] Original Ordering Provider: JAEL LUNSFORD us Generic External Data Provider LUIS goodman Result Performing Organization Address City/State/[facility] Co de Phone Number CLINCHARY [address] [address] * MM TOMOSYNTHESIS SCREENING BI (06/08/2024 9:07 AM EDT) Anatomical Region Laterality Modality Other 06/08/2024 9:07 AM EDT Narrative 06/08/2024 9:08 [place] [address] Mammography Report Signed Patient: GINNY CESPEDES MR#: [id number] : 1955 Acct:[id number] Age/Sex: 69 / F ADM Date: 06/05/24 Loc: MAMMO Attending Dr: FRANCISCA ROJAS Ordering Physician: FRANCISCA ROJAS Results: Date of Service: 06/05/24 Follow Up: Procedure(s): MM tomosynthesis screening BI Accession Number(s): [id number] cc: FRANCISCA ROJAS Patient Name: GINNY CESPEDES MR#: [id number] : 1955 Exam Date: 06/05/2024 Ordering Doctor: [...] colon cancer at age 52. LOCATION: [facility] BREAST COMPOSITION: The breasts are extremely [...] M.D. Signed By: 06/08/24907 DD/ 6 TD/TT: Flexible Babysitter: Procedure Note Radiology, Radiologist, MD - 06/08/2024 [place] [address] Mammography Report Signed Patient: GINNY CESPEDES AMR#: [id number] : 1955cct:[id number] Age/Sex: 69 / FADM Date: 06/05/24 Loc: MAMMO Attending Dr: FRANCISCA ROJAS Ordering Physician: FRANCISCA ROJAS MResults: Date of Service: 06/05/24Follow Up: Procedure(s): MM tomosynthesis screening BI Accession Number(s): [id number] cc: FRANCISCA ROJAS Patient Name: GINNY CESPEDES MR#: [id number] : 1955 Exam Date: 06/05/2024 Ordering Doctor: [...] colon cancer at age 52. LOCATION: [facility] BREAST COMPOSITION: The breasts are extremely [...] 09:07 Dictated By: Chuck Melton M.D. Signed By:06/08/24 0908 DD/ 6 TD/TT: Flexible Babysitter: Francisca COLON [facility] Final Result * Colonoscopy (11/16/2015 12:00 PM EDT) Anatomical Region Laterality Modality Endoscopy 11/16/2015 12:0 0 PM EDT Narrative 11/16/2015 12:00 PM EDT PERFORMED AT [facility] LOCATION:[id number] polyp, internal hemorrhage Procedure Note CONVERSION, GENERIC - 01/10/2023 PERFORMED AT [facility] LOCATION:[id number] polyp, internal hemorrhage us Gamal Mari MD ENDOSCOPY PROCEDURE ORDERABLES F inal Result from Last 3 Months or Most Recently Relevant to Health Maintenance Additional Health Concerns Active Problems Noted Date Diagnosed Date Patient on antidepressant monitoring plan 2023 Insurance MEDICARE [place] [place] Care Teams Dye Tank Tender Relationship Specialty Start Date End Date Gamal Mari MD [address] [facility] 110 [place] [address] PCP - ACO Reach 01/17/23 Gamal Mari MD [address] [facility] 110 [place] [address] PCP - General Family Medicine 01/28/23
--- OUTSIDE RECORDS SUMMARY | 2025-01-26 14:25 | XMS_ITS | Encounter Summary ---
Author Organization [facility] Healthcare Address [address] [place] [address] Care Team Providers Care Lawn Sprinkler Servicer Name Role Phone Gamal Mari MD Unavailable Gamal Mari MD Primary Care Provider [phone] Encounter Details Date Type Department Care Team [...] Recorded Patient Health Questionnaire-2 Score 0 01/14/2025 [facility] - Occupational Stress Questionnaire Answer Date [...] Visit [facility] [address] [place] [address] Cristiane Duckworth MD [address] [place] [address] documented as of this encounter Goals Goal [...] documented as of this encounter Care Teams Lawn Sprinkler Servicer Relationship Specialty Start Date End Date Gamal Mari MD [address] [place] [address] PCP - ACO Reach 01/17/23 Gamal Mari MD 112 [facility] [address] [place] [id number] PCP - General Family Medicine 01/28/23 documented as of this encounter
--- OUTSIDE RECORDS SUMMARY | 2025-01-26 14:25 | XMS_ITS | Encounter Summary ---
Author Organization [facility] Address [address] [place] [address] Care Team Providers Care Sealer Operator Name Role Phone Gamal Mari MD Unavailable Gamal Mari MD Primary Care Provider [phone] Encounter Details Date Type Department Care Team (Late st Contact Info) Description 01/21/2025 Clinisync Result Encounter [facility] External Department Unsolicited Aggie Prince, GRAPHICS PROGRAMMER [address] [facility] [address] [place] [address] Social History Tobacco Use Types Packs/Day Years [...] and Family Not on file 08/05/2023 Attends Pentecostal Services Not on file 08/05 Active Member [...] Recorded Patient Health Questionnaire-2 Score 0 01/14/2025 [facility] of Occupat ional Health [...] Visit [facility] [address] [place] [address] Cristiane Duckworth MD [address] [place] [address] documented as of this encounter Goals Goal Patient Goal Type Associated Problems Recent Progress Patient-Stated? Author Help patient manage antidepressant medication Care Plan Patient on antidepressant monitoring plan No Gamal Mari MD documented as of this encounter Procedures Procedure Name Priority Date/Time Associated Diagnosis Comments CT HEAD/BRAIN WO 01/21/2025 2:37 PM EDT documented in this encounter Results * CT HEAD/BRAIN WO (01/21/2025 2:37 PM EDT) Anatomical Region Laterality Modality Radiographic Ana Maria ging 01/21/2025 2:37 PM EDT Narrative 01/21/2025 2:40 PM EDT The [address] [address] [address] Scan Report Signed Patient: IVONNE DEL CASTILLO MR#: [id number] : 1955 Acct:[id number] Age/Sex: 69 / F ADM Date: 01/21/25 Loc: CT Attending Dr: AGGIE PRINCE Ordering Physician: AGGIE PRINCE Date of Service: 01/21/25 Procedure(s): CT head/brain wo con Accession Number(s): [id number] cc: HONORIO ROJAS [place] [id number] Patient Name: IVONNE DEL CASTILLO MRN: [facility]:[id number] date: 1955 Sex: F Assigned Patient Location: CT Current Patient Location: CT Accession/Order Number: [id number] Exam Date: 01/21/2025 14:33 Report Date: 01/21/2025 14:37 At the request of: AGGIE PRINCE Procedure: CT head/brain wo con CT head/brain [...] Rincon M.D. 01/21/2025 2:37 PM Dictation Location: [place] [address] Electronically authenticated by: [id number] Y Date: 01/21/2025 14:37 Dictated By: Kike Rincon M.D. Signed By: 01/21/25 1440 DD/ 1437 TD/TT: Closer On: Procedure Note Radiology, Radiologist, - 01/21/[address] [place] [id number] Scan Report Signed Patient: IVONNE DEL CASTILLO AMR#: [id number] : 1955cct:[id number] Age/Sex: 69 / FADM Date: 01/21/25 Loc: CT Attending Dr: AGGIE PRINCE Ordering Physician: AGGIE PRINCE Date of Service: 01/21/25 Procedure(s): CT head/brain wo con Accession Number(s): [id number] cc: HONORIO ROJAS [place] [id number] Patient Name: IVONNE DEL CASTILLO MRN: [id number] date: 1955 Sex: F Assigned Patient Location: CT Current Patient Location: CT Accession/Order Number: [id number] Exam Date: 01/21/2025 14:33 Report Date: 01/21/2025 14:37 At the request of: AGGIE PRINCE Procedure: CT head/brain wo con CT head/brain [...] Rincon M.D. 01/21/2025 2:37 PM Dictation Location: [place] [address] Electronically authenticated by: [id number] Y Date: 4:37 Dictated By: Kike Rincon M.D. Signed By:01/21/25 1440 DD/ 1437 TD/TT: Closer On: Aggie Prince GRAPHICS PROGRAMMER IMG XR PROCEDURES Final Resu lt documented in this encounter Visit Diagnoses Not on filedocumented in this encounter Additional Health Concerns Active Problems Noted Date Diagnosed Date Patient on antidepressant monitoring plan 2023 Assessment Noted Time PHQ-9 Depression Total Score: 0 10/21/19 24 10:00 AM EST documented as of this encounter Care Teams Sealer Operator Relationship Specialty Start Date End Date Gamal Mari MD [address] [address] PCP - ACO Reach 01/17/23 Gamal Mari MD [address] [address] PCP - General Family Medicine 01/28/23 documented as of this encounter
--- OUTSIDE RECORDS SUMMARY | 2025-01-26 14:25 | XMS_ITS | Encounter Summary ---
Author Organization [facility] Address [address] [place] [address] Care Team Providers Care Risk And Insurance Manager Name Role Phone Gamal Mari MD Unavailable Gamal Mari MD Primary Care Provider [phone] Encounter Details Date Type Department Care Team (Late st Contact Info) Description 01/21/2025 Abstract [facility] [address] [facility] 110 [place] [address] Gamal Mari MD [address] [facility] 110 [place] [address] Social History Tobacco Use Types [...] and Family Not on file 08/05/2023 Attends Episcopalian Services Not on file 08/05 Active Member [...] Recorded Patient Health Questionnaire-2 Score 0 01/14/2025 [facility] of Occupat ional [facility] - Occupational Stress Questionnaire Answer Date [...] place to sleep or slept in a group home (including now)? No 02/21/2023 Comments Unknown [...] [facility] [address] [place] [address] Cristiane Duckworth MD [address] [place] [address] documented as of this encounter Goals Goal [...] documented as of this encounter Care Teams Risk And Insurance Manager Relationship Specialty Start Date End Date Gamal Mari MD [address] [place] [address] PCP - ACO Reach 01/17/23 Gamal Mari MD [address] [place] [address] PCP - General Family Medicine 01/28/23 documented as of this encounter
--- OUTSIDE RECORDS SUMMARY | 2025-01-26 14:25 | XMS_ITS | Encounter Summary ---
Author Organization [facility] Address [address] [place] [address] Care Team Providers Care Final Expense Agent Name Role Phone Gamal Mari MD Unavailable Gamal Mari MD Primary Care Provider [phone] Emmie Dela Cruz RN Unavailable [phone] Encounter Details Date Type Department Care Team (Late st Contact Info) Description 02/25/2023 Orders Only [facility] [address] [place] [address] A, Unknown Practice [address] [place] [address] Social History Tobacco Use Types Packs/Day Years [...] often do you attend chur ch or sikh services? Patient declined 02/21/2023 Do you belong to any clubs o r organizations such as jehovah's witness groups, unions, fraternal or athletic groups, or [...] and heating? Not hard at all 02/21/2023 [facility] of Occupat ional Health - Occupational [...] Visit [facility] [address] [place] [address] Cristiane Duckworth MD [address] [place] [address] documented as of this encounter Procedures Procedure Name Priority Date/Time Associated Diagnosis Comments SCANNED LABS Routine 02/20/2023 11:35 AM EDT documented in this encounter Results * SC[facility]ED [facility]S (02/20/2023 11:35 AM EDT) us Unknown Practice A LAB CHG PERFORMABLES Final Re sult documented in this encounter Visit Diagnoses Not on filedocumented in this encounter Care Teams Final Expense Agent Relationship Specialty Start Date End Date Gamal Mari MD [address] [place] [address] PCP - ACO Reach 01/17/23 Gamal Mari MD [address] [place] [address] PCP - General Family Medicine 01/28/23 Emmie Dela Cruz, RN Registered Nurse Family Medicine 08/05/23 10/21/24 documented as of this encounter
--- OUTSIDE RECORDS SUMMARY | 2025-01-26 14:25 | XMS_ITS | Encounter Summary ---
Author Organization [facility] Address [address] [place] [address] Care Team Providers Care Knitting Machine Operator Name Role Phone Gamal Mari MD Unavailable Gamal Mari MD Primary Care Provider [phone] Emmie Dela Cruz RN Unavailable [phone] Encounter Details Date Type Department Care Team (Late st Contact Info) Description 01/23/2024 Orders Only [facility] [address] [place] [address] Unallocated, Noms Provider, [address] [place], [place] [address] Social History Tobacco Use Types Packs/Day Years [...] and Family Not on file 08/05/2023 Attends Confucianism Services Not on file 08/05 Active Member [...] Visit [facility] [address] [place] [address] Cristiane Duckworth MD [address] [place] [address] documented as of this encounter [...] documented as of this encounter Care Teams Knitting Machine Operator Relationship Specialty Start Date End Date Gamal Mari MD [address] [place] [address] PCP - ACO Reach 01/17/23 Gamal Mari MD [address] [place], [place] [address] PCP - General Family Medicine 01/28/23 Emmie Dela Cruz, YAA Registered Nurse Family Medicine 08/05/23 10/21/24 documented as of this encounter
--- OUTSIDE RECORDS SUMMARY | 2025-01-26 14:25 | XMS_ITS | Encounter Summary ---
Author Organization [facility] Address [address] [place] [address] Care Team Providers Care Energy Efficiency Engineer Name Role Phone Gamal Mari MD Unavailable Gamal Mari MD Primary Care Provider [phone] Emmie Dela Cruz RN Unavailable [phone] Encounter Details Date Type Department Care Team (Late st Contact Info) Description 03/12/2024 Abstract [facility] 112 [facility] 110 [place] [address] Gamal Mari MD 112 [facility] 110 [place] [address] Social History Tobacco Use Types [...] and Family Not on file 08/05/2023 Attends Sabianist Services Not on file 08/05 Active Member [...] Recorded Patient Health Questionnaire-2 Score 0 10/21/2023 [facility] of Occupat ional Health - Occupational [...] Visit [facility] [address] [place] [address] Cristiane Duckworth MD [address] [place] [address] documented as of this encounter Visit Diagnoses Not on filedocumented in this encounter Additional Health Concerns Assessment Noted Time PHQ-9 Depression Total Score: 0 10/21/19 24 10:00 AM EST documented as of this encounter Care Teams Energy Efficiency Engineer Relationship Specialty Start Date End Date Gamal Mari MD [address] [place] [address] PCP - ACO Reach 01/17/23 Gamal Mari MD [address] [place] [address] PCP - General Family Medicine 01/28/23 Emmie Dela Cruz, RN Registered Nurse Family Medicine 08/05/23 10/21/24 documented as of this encounter
--- OUTSIDE RECORDS SUMMARY | 2025-01-26 14:25 | XMS_ITS | Encounter Summary ---
Author Organization [facility] Address [address] [place] [address] Care Team Providers Care Family Law Legal Assistant Name Role Phone Gamal Mari MD Unavailable Gamal Mari MD Primary Care Provider [phone] Encounter Details Date Type Department Care Team (Late st Contact Info) Description 12/08/2024 Results Follow-Up [facility] FM [address] [facility] 110 [place] [phone] Francisca Saenz PA [address] [place], [place] [address] Social History Tobacco Use Types Packs/Day Years [...] Recorded Patient Health Questionnaire-2 Score 0 12/07/2024 [facility] of Occupat ional Health [...] [facility] [address] [place] [address] Cristiane Duckworth MD [address] [place] [address] documented as of this encounter Goals Goal [...] documented as of this encounter Care Teams Family Law Legal Assistant Relationship Specialty Start Date End Date Gamal Mari MD [address] [facility] 110 [place] [address] PCP - ACO Reach 01/17/23 Gamal Mari MD [address] [place] [address] PCP - General Family Medicine 01/28/23 documented as of this encounter
--- OUTSIDE RECORDS SUMMARY | 2025-01-26 14:25 | XMS_ITS | Encounter Summary ---
Author Organization [facility] Address [address] [place] [address] Care Team Providers Care Brickmason Contractor Name Role Phone Gamal Mari MD Unavailable Gamal Mari MD Primary Care Provider [phone] Encounter Details Date Type Department Care Team (Late st Contact Info) Description 01/14/2025 Bamboo flowsheet [facility] [address] [place] [address] Yulia Pollock, COMMISSIONS SPECIALIST [address] [place] [address] Social History Tobacco Use Types [...] and Family Not on file 08/05/2023 Attends Muslim Services Not on file 08/05 Active Member [...] Recorded Patient Health Questionnaire-2 Score 0 01/14/2025 [facility] of Occupat ional Health - [...] [facility] [address] [place] [address] Cristiane Duckworth MD [address] [place] [address] documented as of this encounter Goals Goal [...] documented as of this encounter Care Teams Brickmason Contractor Relationship Specialty Start Date End Date Gamal Mari MD [address] [facility] 110 [place] [address] PCP - ACO Reach 01/17/23 Gamal Mari MD [address] [place] [address] PCP - General Family Medicine 01/28/23 documented as of this encounter
--- OUTSIDE RECORDS SUMMARY | 2025-01-26 14:25 | XMS_ITS | Encounter Summary ---
Author Organization [facility] Address [address] [place] [address] Care Team Providers Care Filling Hauler Weaving Name Role Phone Gamal Mari MD Unavailable Gamal Mari MD Primary Care Provider [phone] Emmie Dela Cruz RN Unavailable Encounter Details Date Type Department Care Team (Late st Contact Info) Description 12/26/2023 Clinisync Result Encounter [facility] External Department Unsolicited Aggie Prince, UNIT AIDE TECH 112 [facility] 110 [place] [address] Social History Tobacco Use Types Packs/Day Years [...] and Family Not on file 08/05/2023 Attends Gnosticist Services Not on file 08/05 Active Member [...] Recorded Patient Health Questionnaire-2 Score 0 10/21/2023 [facility] of Occupat ional Health - Occupational Stress [...] place to sleep or slept in a mcc (including now)? No 02/21/2023 Comments Unknown Sex [...] Visit [facility] [address] [place] [address] Cristiane Duckworth MD [address] [place] [address] documented as of this encounter Procedures Procedure Name Priority Date/Time Associated Diagnosis Comments XR KNEE 4+ VIEWS RIGHT 12/26/2023 3:05 PM EDT documented in this encounter Results * XR knee 4+ views right (12/26/2023 3:05 PM EDT) Anatomical Region Laterality Modality Lower Extremities, Knee Right Radiogra [facility] Imaging 12/26/2023 3:05 PM EDT Narrative 12/26/2023 3:07 PM EDT The [address] [address] XRay Report Signed Patient: GINNY DEL CASTILLO MR#: [id number] : 1955 Acct:[id number] Age/Sex: 68 / F ADM Date: 12/26/23 Loc: RAD Attending Dr: AGGIE PRINCE Ordering Physician: AGGIE PRINCE Date of Service: 12/26/23 Procedure(s): XR knee RT 4V Accession Number(s): [id number] cc: HONORIO ROJAS ; AGGIE PRINCE [place] [id number] Patient Name: GINNY DEL CASTILLO MRN: [id number] date: 1955 Sex: F Assigned Patient Location: RAD Current Patient Location: RAD Accession/Order Number: [id number] Exam Date: 12/26/2023 14:30 Report Date: 12/26/2023 [...] Signed By: 12/26/23 1507 DD/ 1505 TD/TT: Senior Web Designer: Procedure Note Radiology, Radiologist, MD - 12/26/2023 [place] [address] XRay Report Signed Patient: GINNY DEL CASTILLO AMR#: [id number] : 1955cct:[id number] Age/Sex: 68 / FADM Date: 12/26/23 Loc: RAD Attending Dr: AGGIE PRINCE Ordering Physician: AGGIE PRINCE Date of Service: 12/26/23 Procedure(s): XR knee RT 4V Accession Number(s): [id number] cc: HONORIO ROJAS ; AGGIE PRINCE [place] [id number] Patient Name: GINNY DEL CASTILLO MRN: [id number] date: 1955 Sex: F Assigned Patient Location: [facility] Current Patient Location: RAD Accession/Order Number: [id number] Exam Date: 12/26/2023 14:30 Report Date: 12/26/2023 [...] M.D. Signed By:12/26/23 1507 DD/ 1505 TD/TT: Senior Web Designer: us Aggie Prince UNIT AIDE TECH IMG XR PROCEDURES Final Resu lt documented in this encounter Visit Diagnoses Not on filedocumented in this encounter Additional Health Concerns Assessment Noted Time PHQ-9 Depression Total Score: 0 10/21/19 24 10:00 AM EST documented as of this encounter Care Teams Filling Hauler Weaving Relationship Specialty Start Date End Date Gamal Mari MD [address] [facility] 110 [place] [address] PCP - ACO Reach 01/17/23 Gamal Mari MD [address] [facility] 110 [place] [address] PCP - General Family Medicine 01/28/23 Emmie Dela Cruz, RN Registered Nurse Family Medicine 08/05/23 10/21/24 documented as of this encounter
--- OUTSIDE RECORDS SUMMARY | 2025-01-26 14:25 | XMS_ITS | Encounter Summary ---
Author Organization [facility] Address [address] [place] [address] Care Team Providers Care Tower Excavator Operator Name Role Phone Gamal Mari MD Unavailable Gamal Mari MD Primary Care Provider [phone] Emmie Dela Cruz RN Unavailable [phone] Encounter Details Date Type Department Care Team (Late st Contact Info) Description 06/08/2024 Abstract [facility] 112 [facility] 110 [place] [address] Gamal Mari MD 112 [facility] 110 [place] [address] Social History Tobacco Use Types [...] Recorded Patient Health Questionnaire-2 Score 0 10/21/2023 [facility] of Occupat ional Health - Occupational Stress [...] Visit [facility] [address] [place] [address] Cristiane Duckworth MD [address] [place] [address] documented as of this encounter Visit Diagnoses Not on filedocumented in this encounter Additional Health Concerns Assessment Noted Time PHQ-9 Depression Total Score: 0 10/21/19 24 10:00 AM EST documented as of this encounter Care Teams Tower Excavator Operator Relationship Specialty Start Date End Date Gamal Mari MD [address] [place] [address] PCP - ACO Reach 01/17/23 Gamal Mari MD [address] [place] [address] PCP - General Family Medicine 01/28/23 Emmie Dela Cruz, RN Registered Nurse Family Medicine 08/05/23 10/21/24 documented as of this encounter
--- OUTSIDE RECORDS SUMMARY | 2025-01-26 14:25 | XMS_ITS | Encounter Summary ---
Author Organization [facility] Address [address] [place] [address] Care Team Providers Care Telephone Information Clerk Name Role Phone Gamal Mari MD Unavailable Gamal Mari MD Primary Care Provider [phone] Emmie Dela Cruz RN Unavailable Encounter Details Date Type Department Care Team (Late st Contact Info) Description 06/09/2024 Abstract [facility] [address] [facility] 110 [place] [address] Gamal Mari MD 112 [facility] 110 [place] [address] Social History Tobacco Use Types [...] and Family Not on file 08/05/2023 Attends Scientology Services Not on file 08/05 Active Member [...] Visit [facility] [address] [place] [address] Cristiane Duckworth MD [address] [place] [address] documented as of this encounter Visit Diagnoses Not on filedocumented in this encounter Additional Health Concerns Assessment Noted Time PHQ-9 Depression Total Score: 0 10/21/19 24 10:00 AM EST documented as of this encounter Care Teams Telephone Information Clerk Relationship Specialty Start Date End Date Gamal Mari MD [address] [place] [address] PCP - ACO Reach 01/17/23 Gamal Mari MD [address] [place] [address] PCP - General Family Medicine 01/28/23 Emmie Dela Cruz, RN Registered Nurse Family Medicine 08/05/23 10/21/24 documented as of this encounter
--- OUTSIDE RECORDS SUMMARY | 2025-01-26 14:25 | XMS_ITS | Encounter Summary ---
Author Organization [facility] Address [address] [place] [address] Care Team Providers Care Timber Supervisor Name Role Phone Gamal Mari MD Unavailable Gamal Mari MD Primary Care Provider [phone] Emmie Dela Cruz RN Unavailable [phone] Encounter Details Date Type Department Care Team (Late st Contact Info) Description 06/23/2024 Abstract [facility] 112 [facility] 110 [place] [address] Gamal Mari MD 112 [facility] 110 [place] [address] Social History Tobacco Use Types [...] Recorded Patient Health Questionnaire-2 Score 0 10/21/2023 [facility] of Occupat ional Health - Occupational [...] Visit [facility] [address] [place] [address] Cristiane Duckworth MD [address] [place] [address] documented as of this encounter Visit Diagnoses Not on filedocumented in this encounter Additional Health Concerns Assessment Noted Time PHQ-9 Depression Total Score: 0 10/21/19 24 10:00 AM EST documented as of this encounter Care Teams Timber Supervisor Relationship Specialty Start Date End Date Gamal Mari MD [address] [place] [address] PCP - ACO Reach 01/17/23 Gamal Mari MD [address] [place] [address] PCP - General Family Medicine 01/28/23 Emmie Dela Cruz, RN Registered Nurse Family Medicine 08/05/23 10/21/24 documented as of this encounter
--- OUTSIDE RECORDS SUMMARY | 2025-01-26 14:25 | XMS_ITS | Encounter Summary ---
Author Organization [facility] Address [address] [place] [address] Care Team Providers Care Rn Transitional Care Name Role Phone Gamal Mari MD Unavailable Gamal Mari MD Primary Care Provider [phone] Encounter Details Date Type Department Care Team (Late st Contact Info) Description 01/21/2025 Abstract [facility] [address] [facility] 110 [place] [address] Gamal Mari MD 112 [place] [facility] 110 [place] [address] Social History Tobacco Use Types [...] and Family Not on file 08/05/2023 Attends Mandaen Services Not on file 08/05 Active Member [...] Recorded Patient Health Questionnaire-2 Score 0 01/14/2025 [facility] of Occupat ional [facility] - Occupational Stress Questionnaire Answer [...] [facility] [address] [place] [address] Cristiane Duckworth MD [address] [place] [address] documented as of this encounter Goals Goal [...] documented as of this encounter Care Teams Rn Transitional Care Relationship Specialty Start Date End Date Gamal Mari MD [address] [place] [address] PCP - ACO Reach 01/17/23 Gamal Mair MD [address] [place] [address] PCP - General Family Medicine 01/28/23 documented as of this encounter
--- OUTSIDE RECORDS SUMMARY | 2025-01-26 14:25 | XMS_ITS | Encounter Summary ---
Author Organization [facility] Address [address] [place] [address] Care Team Providers Care Electrical And Electronic Assembler Name Role Phone Gamal Mari MD Unavailable Gamal Mari MD Primary Care Provider [phone] Emmie Dela Cruz RN Unavailable [phone] Encounter Details Date Type Department Care Team (Late st Contact Info) Description 12/30/2023 Abstract [facility] 112 [facility] 110 [place] [address] Gamal Mari MD 112 [facility] 110 [place] [address] Social History Tobacco Use Types [...] and Family Not on file 08/05/2023 Attends Restoration Services Not on file 08/05 Active Member [...] Visit [facility] [address] [place] [address] Cristiane Duckworth MD [address] [place] [address] documented as of this encounter Visit Diagnoses Not on filedocumented in this encounter Additional Health Concerns Assessment Noted Time PHQ-9 Depression Total Score: 0 10/21/19 24 10:00 AM EST documented as of this encounter Care Teams Electrical And Electronic Assembler Relationship Specialty Start Date End Date Gamal Mari MD [address] [place] [address] PCP - ACO Reach 01/17/23 Gamal Mari MD [address] [place] [address] PCP - General Family Medicine 01/28/23 Emmie Dela Cruz, RN Registered Nurse Family Medicine 08/05/23 10/21/24 documented as of this encounter
--- OUTSIDE RECORDS SUMMARY | 2025-01-26 14:26 | XMS_ITS | Encounter Summary ---
Author Organization [facility] Address [address] [place] [address] Care Team Providers Care Municipal Firefighter Name Role Phone Gamal Mari MD Unavailable Gamal Mari MD Primary Care Provider [phone] Emmie Dela Cruz RN Unavailable [phone] Encounter Details Date Type Department Care Team (Late st Contact Info) Description 06/06/2023 Clinisync Result Encounter [facility] External Department Unsolicited Francisca Saenz, PA 112 [facility] [address] [place] [address] Social History Tobacco Use Types Packs/Day Years [...] often do you attend chur ch or pentecostal services? Patient declined 02/21/2023 Do you belong to any clubs o r organizations such as cheondoism groups, unions, fraONOFFMIX (?) or athletic groups, or school groups? No [...] and heating? Not hard at all 02/21/2023 [facility] - Occupational [...] Visit [facility] [address] [place] [address] Cristiane Duckworth MD [address] [place] [address] documented as of this encounter Procedures Procedure Name Priority Date/Time Associated Diagnosis Comments MM TOMOSYNTHESIS SCREENING BI 06/06/2023 8:25 AM EDT documented in this encounter Results * MM TOMOSYNTHESIS SCREENING BI (06/06/2023 8:25 AM EDT) Anatomical Region Laterality Modality Other 06/06/2023 8:25 AM EDT Narrative 06/06/2023 8:25 AM EDT The [address] [address] Mammography Report Signed Patient: Ginny Del Castillo MR#: [id number] : 1955 Acct:[id number] Age/Sex: 68 / F ADM Date: 06/04/23 Loc: MAMMO Attending Dr: FRANCISCA SAENZ Ordering Physician: FRANCISCA SAENZ Results: Date of Service: 06/04/23 Follow Up: Procedure(s): MM tomosynthesis screening BI Accession Number(s): [id number] cc: FRANCISCA SAENZ Patient: GINNY DEL CASTILLO Exam Date: 06/04/2023 : 1955 Gender:F Ordering : DR FRANCISCA SAENZ PA Admission #: [id number] Family : Order #: [id number] CLICK HERE TO VIEW EXAM RADIOLOGY REPORT [...] colon cancer at age 52. LOCATION: The [facility] BREAST COMPOSITION: Extremely dense, which lowers [...] M.D. Signed By: 06/06/2327 DD/ 4 TD/TT: Data Management Associate: Procedure Note Radiology, Radiologist, - 06/06/[address] [address] Mammography Report Signed Patient: Ginny Del Castillo AMR#: [id number] : 1955cct:[id number] Age/Sex: 68 / FADM Date: 06/04/23 Loc: MAMMO Attending Dr: FRANCISCA SAENZ Ordering Physician: FRANCISCA SAENZ MResults: Date of Service: 06/04/23Follow Up: Procedure(s): MM tomosynthesis screening BI Accession Number(s): [id number] cc: FRANCISCA SAENZ Patient: GINNY DEL CASTILLO Exam Date: 06/04/2023 : 1955 Gender:F Ordering : DR FRANCISCA SAENZ PA Admission #: [id number] Family : Order #: [id number] CLICK HERE TO VIEW EXAM RADIOLOGY REPORT [...] colon cancer at age 52. LOCATION: The [facility] BREAST COMPOSITION: Extremely dense, which lowers [...] Bill Godoy M.D. Signed By:06/06/23826 DD/ TD/TT: Data Management Associate: Francisca [facility] Final Result documented in this encounter Visit Diagnoses Not on filedocumented in this encounter Care Teams Municipal Firefighter Relationship Specialty Start Date End Date Gamal Mari MD [address] [facility] [address] [place] [address] PCP - ACO Reach 01/17/23 Gamal Mari MD [address] [facility] [address] [place] [address] PCP - General Family Medicine 01/28/23 Emmie Dela Cruz, RN Registered Nurse Family Medicine 08/05/23 10/21/24 documented as of this encounter
--- OUTSIDE RECORDS SUMMARY | 2025-01-26 14:26 | XMS_ITS | Clinical Summary ---
Author Organization [facility] Address [address] [place] [address] Care Team Providers Care Dry Pan Operator Name Role Phone Gamal Mari MD Primary Care Provider [phone] Gamal Mari MD Unavailable [phone] Allergies Active Allergy Reactions Criticality Noted Date [...] Encounters Date Type Department Care Team Description 01/25/2025 2:30 PM EDT Nurse Visit Hematology/Oncology [address] [place] [address] [place] [address] Matteo Kennedy Nurse Ervin Anemia, unspecified type (Primary Dx); 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 deficiency 01/25/2025 Travel 01/20/2025 Orders Only Hematology/Oncology [address] [place] [address] Kim Maldonado APRN.SENIOR SALES COMPENSATION ANALYST 01/19/2025 Orders Only Radiation Oncology [address] [place] [address] Jacinta Toney PA-C 01/19/2025 Orders Only Hematology/Oncology [address] [place] [address] Marietta Andre, PROFESSOR OF COMMUNICATION ARTS.SENIOR SALES COMPENSATION ANALYST 12/28/2024 2:30 PM EDT Nurse Visit Hematology/Oncology [address] [place] [address] Matteo Kennedy Nurse Ervin Anemia, unspecified type (Primary Dx); 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 deficiency 11/30/2024 2:30 PM EDT Nurse Visit Hematology/Oncology [address] [place] [address] Matteo Kennedy Nurse Ervin Anemia, unspecified type (Primary Dx); 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 deficiency 11/30/2024 Travel 11/02/2024 2:30 PM EDT Nurse Visit Hematology/Oncology [address] [place] [address] Matteo Kennedy Nurse Ervin Anemia, unspecified type (Primary Dx); 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 deficiency 10/28/2024 Orders Only Hematology/Oncology [address] [place] [address] Maikel Resendiz MD 10/26/2024 Orders Only Hematology/Oncology [address] [place] [address] Marietta Andre, PROFESSOR OF COMMUNICATION ARTS.SENIOR SALES COMPENSATION ANALYST 10/26/2024 Orders Only Hematology/Oncology [address] [place] [address] Jacinta Toney PA-C from Last 3 Months [...] is lower risk 8 03/13/2023 Data from: https://www.neighborhoodatlas.medicine.[facility]/. Last address used for calculation [address] 03/13/2023 Comments No Sex and Gender [...] Description 02/22/2025 2:15 PM EDT Office Visit [facility] [address] [facility] [place] [address] follow up lab and B12 02/22/2025 2:30 PM EDT Visit (SP) Office Hematology/Oncology [address] [facility] [place] [address] Kim Maldonado, JAZZ.SENIOR SALES COMPENSATION ANALYST [address] [facility] [place] [address] follow up lab and B12 02/22/2025 3:00 PM EDT Nurse Visit Hematology/Oncology [address] [place] [address] Matteo Kennedy Nurse Ervin [address] [facility] [place] [address] follow up lab and B12 03/22/2025 2:00 PM EDT Nurse Visit Hematology/Oncology [address] [facility] [address] Matteo Kennedy Nurse Ervin [address] [place] [address] follow up lab and B12 04/20/2025 2:00 PM EDT Nurse Visit Hematology/Oncology [address] [place] [address] Matteo Kennedy Nurse Ervin [address] [place] [address] follow up lab and B12 05/18/2025 2:00 PM EDT Nurse Visit Hematology/Oncology [address] [place] [address] Matteo Kennedy Nurse Ervin [address] [facility] [address] follow up lab and B12 06/15/2025 2:00 PM EDT Nurse Visit Hematology/Oncology [address] [place] [place] [address] Matteo Kennedy Nurse Ervin [address] [place] [address] follow up lab and B12 Health Maintenance [...] 05/26/2021, 10/29/2019, Additional history exists Covid-19 Vaccine ( - 2023-2 5 season) 2024 Advance Directive [...] - 1,245 pg/mL 12/01/2024 2:12 AM EDT [facility] Blood BLOOD SPECIMEN / Unknown Venipuncture / Unknown 11/30/2024 1:43 PM EDT 11/30/2024 1:43 PM EDT us Maikel Resendiz MD LABORATORY Final Result [facility] [address] [address], [place] * IRON AND TIBC (11/30/2024 1:43 PM EDT) Iron 93 41 - 186 ug/dL 12/01/2024 1:51 AM EDT [facility] TIBC 362 232 - 386 ug/dL 12/01/2024 1:51 AM EDT [facility] Transferrin Saturation 25.7 15.0 - 57.0 % 12/01/2024 1:51 AM EDT [facility] Blood BLOOD SPECIMEN / Unknown Venipuncture / Unknown 11/30/2024 1:43 PM EDT 11/30/2024 1:43 PM EDT us Maikel Resendiz MD LABORATORY Final Result Performing Organization Address City/[facility]/ZIP Co de Phone Number [facility] [address] [address], [place] * FOLATE, SERUM (11/30/2024 1:43 PM EDT) Folate 19.3 >4.7 ng/mL 12/01/2024 2:12 AM EDT [facility] Blood BLOOD SPECIMEN / Unknown Venipuncture / Unknown 11/30/2024 1:43 PM EDT 11/30/2024 1:43 PM EDT us Maikel Resendiz MD LABORATORY Final Result [facility] [address] [address], [place] * FERRITIN (11/30/2024 1:43 PM EDT) Ferritin 27.4 14.7 - 205.1 ng/mL 12/01/2024 8:53 AM EDT [facility] Blood BLOOD SPECIMEN / Unknown Venipuncture / Unknown 11/30/2024 1:43 PM EDT 11/30/2024 1:43 PM EDT Maikel Resendiz MD LABORATORY Final Result [facility] [address] Former[facility] [address] [place] [address], [place] * (ABNORMAL) COMPREHENSIVE METABOLIC PANEL (11/30/2024 1:43 PM EDT) Pathologist [facility] Protein, Total 7.3 6.3 - 8.0 g/dL 11/30/2024 2:29 PM EDT [facility] Albumin 4.3 3.9 - 4.9 g/dL 11/30/2024 2:29 PM EDT [facility] Calcium, Total 10.3(H) 8.5 - 10.2 mg/dL 11/30/2024 2:29 PM EDT [facility] Bilirubin, Total 0.3 0.2 - 1.3 mg/dL 11/30/2024 2:29 PM EDT [facility] Alkaline Phosphatase 60 34 - 123 U/L 11/30/2024 2:29 PM EDT [facility] AST 18 13 - 35 U/L 11/30/2024 2:29 PM EDT [facility] ALT 15 7 - 38 U/L 11/30/2024 2:29 PM EDT [facility] Glucose 87 74 - 99 mg/dL 11/30/2024 2:29 PM EDT [facility] Comment: The [place] Diabetes Association (ADA) provides guidance for cutoff [...] Standards of Medical Care in Diabetes 2016, [place] Diabetes Association. Diabetes Care. 2016.39(Suppl 1). BUN 13 7 - 21 mg/dL 11/30/2024 2:29 PM EDT [facility] Creatinine 0.65 0.58 - 0.96 mg/dL 11/30/2024 2:29 PM EDT [facility] Sodium 141 136 - 144 mmol/L 11/30/2024 2:29 PM EDT [facility] Potassium 4.1 3.7 - 5.1 mmol/L 11/30/2024 2:29 PM EDT [facility] Chloride 102 98 - 107 mmol/L 11/30/2024 2:29 PM EDT [facility] CO2 27 22 - 30 mmol/L 11/30/2024 2:29 PM EDT [facility] Anion Gap 12 8 - 15 mmol/L 11/30/2024 2:29 PM EDT [facility] Estimated Glomerular Filtration Rate 94 >=60 mL/min/1. 73m 11/30/2024 2:29 PM EDT [facility] Comment:Estimated Glomerular Filtration Rate (eGFR) is [...] us Maikel Resendiz MD LABORATORY Final Result [facility] [address] [place] [address] * (ABNORMAL) COMPLETE BLOOD COUNT AND DIFFERENTIAL (11/30/2024 1:43 PM EDT) [facility] WBC 6.57 3.70 - 11.00 k/uL 11/30/2024 1:47 PM EDT [facility] RBC 4.55 3.90 - 5.20 m/uL 11/30/2024 1:47 PM EDT [facility] Hemoglobin 12.9 11.5 - 15.5 g/dL 11/30/2024 1:47 PM EDT [facility] Hematocrit 39.8 36.0 - 46.0 % 11/30/2024 1:47 PM EDT [facility] MCV 87.5 80.0 - 100.0 fL 11/30/2024 1:47 PM EDT [facility] MCH 28.4 26.0 - 34.0 pg 11/30/2024 1:47 PM EDT [facility] MCHC 32.4 30.5 - 36.0 g/dL 11/30/2024 1:47 PM EDT [facility] RDW-CV 14.6 11.5 - 15.0 % 11/30/2024 1:47 PM EDT [facility] Platelet Count 223 150 - 400 k/uL 11/30/2024 1:47 PM EDT [facility] MPV 8.8(L) 9.0 - 12.7 fL 11/30/2024 1:47 PM EDT [facility] Neutrophils % 50.4 % 11/30/2024 1:47 PM EDT [facility] Abs Neut 3.32 1.45 - 7.50 k/uL 11/30/2024 1:47 PM EDT [facility] Lymphocytes % 34.1 % 11/30/2024 1:47 PM EDT [facility] Abs Lymph 2.24 1.00 - 4.00 k/uL 11/30/2024 1:47 PM EDT [facility] Monocytes % 11.0 % 11/30/2024 1:47 PM EDT [facility] Abs [place] 0.72 <0.87 k/uL 11/30/2024 1:47 PM EDT [facility] Eosinophils % 3.2 % 11/30/2024 1:47 PM EDT [facility] Abs Eosin 0.21 <0.46 k/uL 11/30/2024 1:47 PM EDT [facility] Basophils % 0.8 % 11/30/2024 1:47 PM EDT [facility] Abs Baso 0.05 <0.11 k/uL 11/30/2024 1:47 PM EDT [facility] Immature Granulocytes % 0.5 % 11/30/2024 1:47 PM EDT [facility] Abs Immature Gran 0.03 <0.10 k/uL 025 1:47 PM EDT [facility] NRBC 0.0 /100 WBC 11/30/2024 1:47 PM EDT [facility] Absolute nRBC <0.01 <0.01 k/uL 11/30/2024 1:47 PM EDT [facility] Diff Type Auto 11/30/2024 1:47 PM EDT [facility] Blood BLOOD SPECIMEN / Unknown Venipuncture / Unknown 11/30/2024 1:43 PM EDT 11/30/2024 1:43 PM EDT us Maikel Resendiz MD LABORATORY Final Result [facility] [address] [place] [address] from Last 3 Months Insurance MEDICARE Member Subscriber Plan / Payer (Ef fective 2018-Present) Name:Ivonne Del Castillo Member ID:[id number] Relation to Subscriber:Self Name:Ivonne Del Castillo Subscriber ID:[id number] Payer ID:Not on file Group ID:Not on file Type:Medicare Address: [address] MEDICARE SUPPLEMENT Care Teams Dry Pan Operator Relationship Specialty Start Date End Date Gamal Mari MD [address] [facility] [address] [place] [address] PCP - General Family Medicine 11/05/18 Gamal Mari MD [address] [facility] [address] [place] [address] Referring Family Medicine 11/05/18
--- OUTSIDE RECORDS SUMMARY | 2025-01-26 14:26 | XMS_ITS | Encounter Summary ---
Author Organization [facility] Address [address] [place] [address] Care Team Providers Care Supervisor Twisting Department Name Role Phone Gamal Mari MD Unavailable Gamal Mari MD Primary Care Provider [phone] Emmie Dela Cruz RN Unavailable [phone] Encounter Details Date Type Department Care Team (Late st Contact Info) Description 09/12/2023 Abstract [facility] [address] [facility] 110 [place] [address] Gamal Mari MD 112 [facility] 110 [place] [address] Social History Tobacco Use Types [...] and heating? Not hard at all 02/21/2023 [facility] - Occupational [...] Visit [facility] [address] [place] [address] Cristiane Duckworth MD [address] [place] [address] documented as of this encounter Visit Diagnoses Not on filedocumented in this encounter Care Teams Supervisor Twisting Department Relationship Specialty Start Date End Date Gamal Mari MD [address] [place] [address] PCP - ACO Reach 01/17/23 Gamal Mari MD [address] [place] [address] PCP - General Family Medicine 01/28/23 Emmie Dela Cruz, RN Registered Nurse Family Medicine 08/05/23 10/21/24 documented as of this encounter
--- OUTSIDE RECORDS SUMMARY | 2025-01-26 14:26 | XMS_ITS | Encounter Summary ---
Author Organization [facility] Address [address] [place], [place] [address] Care Team Providers Care Journeyman Level Acoustic Analyst Name Role Phone Gamal Mari MD Primary Care Provider [phone] Gamal Mari MD Unavailable [phone] Source Comments In the event this information is protected by the Federal Confidentiality of Alcohol and Drug AbusePatient Records regulations: The Federal rules restrict any use of the information to criminally investigate or prosecute any alcohol or drug abuse patient.[facility] Encounter Details Date Type Department Care [...] Description 02/22/2025 2:15 PM EDT Office Visit [facility] [address] [place] [address] [place] [address] follow up lab and B12 02/22/2025 2:30 PM EDT Visit (SP) Office Hematology/Oncology [address] [place] [address] Kim Maldonado APRN.COLLEGE SCOUTING COORDINATOR [address] [place] [address] follow up lab and B12 02/22/2025 3:00 PM EDT Nurse Visit Hematology/Oncology [address] [place] [address] Matteo Kennedy Nurse Ervin [address] [place] [address] follow up lab and B12 03/22/2025 2:00 PM EDT Nurse Visit Hematology/Oncology [address] [place] [address] Matteo Kennedy Nurse Ervin [address] [place] [address] follow up lab and B12 04/20/2025 2:00 PM EDT Nurse Visit Hematology/Oncology [address] [place] [address] Matteo Kennedy Nurse Ervin [address] [place] [address] follow up lab and B12 05/18/2025 2:00 PM EDT Nurse Visit Hematology/Oncology [address] [place] [address] Matteo Kennedy Nurse Ervin [address] [facility] [place] [address] follow up lab and B12 06/15/2025 2:00 PM EDT Nurse Visit Hematology/Oncology [address] [place] [address] Matteo Kennedy Nurse Ervin [address] [facility] [place] [address] follow up lab and B12 documented as of this encounter Visit Diagnoses Not on filedocumented in this encounter Care Teams Journeyman Level Acoustic Analyst Relationship Specialty Start Date End Date Gamal Mari MD [address] [place] [address] PCP - General Family Medicine 11/05/18 Gamal Mari MD 112 [facility] 110 [place] [address] Referring Family Medicine 11/05/18 documented as of this encounter
--- OUTSIDE RECORDS SUMMARY | 2025-01-26 14:26 | XMS_ITS | Encounter Summary ---
Author Organization [facility] Address [address] [place] [address] Care Team Providers Care Customer Support Consultant Name Role Phone Gamal Mari MD Unavailable Gamal Mari MD Primary Care Provider [phone] Emmie Dela Cruz RN Unavailable [phone] Encounter Details Date Type Department Care Team (Late st Contact Info) Description 06/29/2024 Abstract [facility] 112 [facility] 110 [place] [address] Gamal Mari MD 112 [facility] 110 [place] [address] Social History Tobacco Use Types [...] and Family Not on file 08/05/2023 Attends [employer] Not on file 08/05 Active Member [...] Recorded Patient Health Questionnaire-2 Score 0 10/21/2023 [facility] - [...] Visit [facility] [address] [place] [address] Cristiane Duckworth MD [address] [place] [address] documented as of this encounter Visit Diagnoses Not on filedocumented in this encounter Additional Health Concerns Assessment Noted Time PHQ-9 Depression Total Score: 0 10/21/19 24 10:00 AM EST documented as of this encounter Care Teams Customer Support Consultant Relationship Specialty Start Date End Date Gamal Mari MD [address] [place] [address] PCP - ACO Reach 01/17/23 Gamal Mari MD [address] [place] [address] PCP - General Family Medicine 01/28/23 Emmie Dela Cruz, RN Registered Nurse Family Medicine 08/05/23 10/21/24 documented as of this encounter
--- OUTSIDE RECORDS SUMMARY | 2025-01-26 14:26 | XMS_ITS | Encounter Summary ---
Author Organization [facility] Address [address] [place] [address] Care Team Providers Care Digester Capper Name Role Phone Gamal Mari MD Unavailable Gamal Mari MD Primary Care Provider [phone] Emmie Dela Cruz RN Unavailable [phone] Encounter Details Date Type Department Care Team (Late st Contact Info) Description 08/01/2023 Abstract [facility] [address] [facility] 110 [place] [address] Gamal Mari MD 112 [facility] 110 [place] [address] Social History Tobacco Use Types [...] and heating? Not hard at all 02/21/2023 [facility] Occupat ional Health - [...] Visit [facility] [address] [place] [address] Cristiane Duckworth MD [address] [place] [address] documented as of this encounter Visit Diagnoses Not on filedocumented in this encounter Care Teams Digester Capper Relationship Specialty Start Date End Date Gamal Mari MD [address] [facility] [address] [place] [address] PCP - ACO Reach 01/17/23 Gamal Mari MD [address] [place] [address] PCP - General Family Medicine 01/28/23 Emmie Dela Cruz, RN Registered Nurse Family Medicine 08/05/23 10/21/24 documented as of this encounter
--- OUTSIDE RECORDS SUMMARY | 2025-01-26 14:26 | XMS_ITS | Encounter Summary ---
Author Organization [facility] Address [address] [place] [address] Care Team Providers Care Warehouse Logistics Manager Name Role Phone Gamal Mari MD Unavailable Gamal Mari MD Primary Care Provider [phone] Emmie Dela Cruz RN Unavailable Encounter Details Date Type Department Care Team (Late st Contact Info) Description 06/29/2024 Abstract [facility] 112 [facility] 110 [place] [address] Gamal Mari MD 112 [facility] 110 [place] [address] Social History Tobacco Use Types [...] and Family Not on file 08/05/2023 Attends [employer] Not on file 08/05 Active Member [...] Recorded Patient Health Questionnaire-2 Score 0 10/21/2023 [facility] Occupat ional Health - Occupational [...] Visit [facility] [address] [place] [address] Cristiane Duckworth MD [address] [place] [address] documented as of this encounter Visit Diagnoses Not on filedocumented in this encounter Additional Health Concerns Assessment Noted Time PHQ-9 Depression Total Score: 0 10/21/19 24 10:00 AM EST documented as of this encounter Care Teams Warehouse Logistics Manager Relationship Specialty Start Date End Date Gamal Mari MD [address] [place] [address] PCP - ACO Reach 01/17/23 Gamal Mari MD [address] [place] [address] PCP - General Family Medicine 01/28/23 Emmie Dela Cruz, RN Registered Nurse Family Medicine 08/05/23 10/21/24 documented as of this encounter
--- OUTSIDE RECORDS SUMMARY | 2025-01-26 14:26 | XMS_ITS | Encounter Summary ---
Author Organization [facility] Address [address] [place] [address] Care Team Providers Care Scale Manager Name Role Phone Gamal Mari MD Unavailable Gamal Mari MD Primary Care Provider [phone] Emmie Dela Cruz RN Unavailable [phone] Encounter Details Date Type Department Care Team (Late st Contact Info) Description 06/23/2024 Abstract [facility] [address] [facility] 110 [place] [address] Gamal Mari MD 112 [facility] 110 [place] [address] Social History Tobacco Use Types [...] Recorded Patient Health Questionnaire-2 Score 0 10/21/2023 [facility] of Occupat ional Health [...] Visit [facility] [address] [place] [address] Cristiane Duckworth MD [address] [place] [address] documented as of this encounter Visit Diagnoses Not on filedocumented in this encounter Additional Health Concerns Assessment Noted Time PHQ-9 Depression Total Score: 0 10/21/19 24 10:00 AM EST documented as of this encounter Care Teams Scale Manager Relationship Specialty Start Date End Date Gamal Mari MD [address] [place] [address] PCP - ACO Reach 01/17/23 Gamal Mari MD [address] [place] [address] PCP - General Family Medicine 01/28/23 Emmie Dela Cruz, RN Registered Nurse Family Medicine 08/05/23 10/21/24 documented as of this encounter
--- OUTSIDE RECORDS SUMMARY | 2025-01-26 14:26 | XMS_ITS | Encounter Summary ---
Author Organization [facility] Address [address] [place], [place] [address] Care Team Providers Care Unit Aid Name Role Phone Gamal Mari MD Primary Care Provider [phone] Gamal Mari MD Unavailable [phone] Source Comments In the event this information is protected by the Federal Confidentiality of Alcohol and Drug AbusePatient Records regulations: The Federal rules restrict any use of the information to criminally investigate or prosecute any alcohol or drug abuse patient.[facility] Encounter Details Date Type Department Care Team (Latest Contact Info) Description 01/25/2025 Travel Social History Tobacco Use Types Packs/Day [...] is lower risk 8 03/13/2023 Data from: https://www.neighborhoodatlas.medicine.[facility].edu/. Last address used for calculation [address] [place] [address] 03/13/2023 Comments No Sex and Gender Information Value Date Recorded Sex Assigned at Not on file Legal Sex Female 10:38 AM EDT Gender Identity Not on file Sexual Orientation Not on file documented as of this encounter Plan of Treatment Upcoming Encounters Date Type Department Care Team (Latest Contact Info) Description 02/22/2025 2:15 PM EDT Office Visit [facility] Laboratory [address] [place] [address] follow up lab and B12 02/22/2025 2:30 PM EDT Visit (SP) Office Hematology/Oncology [address] [place] [address] Kim Maldonado APRN.TRIAL MGR [address] [place] [address] follow up lab and B12 02/22/2025 3:00 PM EDT Nurse Visit Hematology/Oncology [address] [place] [address] Matteo Kennedy Nurse Ervin [address] [place] [address] follow up lab and B12 03/22/2025 2:00 PM EDT Nurse Visit Hematology/Oncology [address] [place] [address] Matteo Kennedy Nurse Ervin [address] [place] [address] follow up lab and B12 04/20/2025 2:00 PM EDT Nurse Visit Hematology/Oncology [address] [place] [address] Matteo Kennedy Nurse Ervin [address] [place] [address] follow up lab and B12 05/18/2025 2:00 PM EDT Nurse Visit Hematology/Oncology [address] [place] [address] Matteo Kennedy Nurse Ervin [address] [place] [address] follow up lab and B12 06/15/2025 2:00 PM EDT Nurse Visit Hematology/Oncology [address] [place] [address] Matteo Kennedy Nurse Ervin [address] [place] [address] follow up lab and B12 documented as of this encounter Visit Diagnoses Not on filedocumented in this encounter Care Teams Unit Aid Relationship Specialty Start Date End Date Gamal Mari MD 112 [facility] 110 [place] [address] PCP - General Family Medicine 11/05/18 Gamal Mari MD 112 [facility] 110 [place] [address] Referring Family Medicine 11/05/18 documented as of this encounter
--- OUTSIDE RECORDS SUMMARY | 2025-01-26 14:26 | XMS_ITS | Encounter Summary ---
Author Organization [facility] Address [address] [place] [address] Care Team Providers Care City Secretary Name Role Phone Gamal Mari MD Unavailable Gamal Mari MD Primary Care Provider [phone] Emmie Dela Cruz RN Unavailable [phone] Encounter Details Date Type Department Care Team (Late st Contact Info) Description 10/19/2024 Abstract [facility] 112 [facility] 110 [place] [address] Gamal Mari MD 112 [facility] 110 [place] [address] Social History Tobacco Use Types [...] and Family Not on file 08/05/2023 Attends Bahai Services Not on file 08/05 Active Member [...] Recorded Patient Health Questionnaire-2 Score 0 10/21/2023 [facility] of Occupat ional Health - [...] [facility] [address] [place] [address] Cristiane Duckworth MD [address] [place] [address] documented as of this encounter [...] documented as of this encounter Care Teams City Secretary Relationship Specialty Start Date End Date Gamal Mari MD [address] [place] [address] PCP - ACO Reach 01/17/23 Gamal Mari MD [address] [place] [address] PCP - General Family Medicine 01/28/23 Emmie Dela Cruz, RN Registered Nurse Family Medicine 08/05/23 10/21/24 documented as of this encounter
--- OUTSIDE RECORDS SUMMARY | 2025-01-26 14:26 | XMS_ITS ---
Author Organization [facility] Address [address] [place], [place] [address] Care Team Providers Care Full Time Staff Interpreter Name Role Phone Gamal Mari MD Primary Care Provider [phone] Gamal Mari MD Unavailable [phone] Active Problems Problem Noted Date Diagnosed Date [...] B12 deficiency Treatment Medications Current Day (Day 2 9, Cycle 8 - Planned for 02/22/2025) Next Day (Day 57, Cycle 8 - Planned for 03/22/2025) No medications scheduled. No medications schedul ed. No medications scheduled. Past Treatment and Therapy Plans Treatment Summaries Ductal carcinoma in situ (DCIS) of breast* Treatment Summary and Survivorship Care Plan for Breast Cancer Provided by: Marietta Andre APRN.LOGGING SPECIALIST General Information Patient Name: Ivonne Del Castillo [...] Test How Often Oncology Team Mammogram Annually LEARNING DESIGNER or PCP Pap/pelvic exam As indicated by [...] (loss/gain) Resources you may be interested in: [employer] Field Sales Associate [facility] [phone] Field Sales Associate Gold Plater Art Therapy Women with Cancer Support Group- Meets at [address] [place] [address] Sarita Ward- From 4 PM to 5 PM- contact the log chain worker for dates. Living with Cancer Support Group- Meets at [address] [place] [address] Sarita Ward- From 11:30 AM to 12:30 PM- Contact the log chain worker for dates. Prepared by: Marietta Andre APRN.LOGGING SPECIALIST Delivered on: June 11, 2019 - This [...]
--- OUTSIDE RECORDS SUMMARY | 2025-01-26 14:26 | XMS_ITS | Encounter Summary ---
Author Organization [facility] Address [address] [place] [address] Care Team Providers Care Barnworker Groom Name Role Phone Gamal Mari MD Primary Care Provider [phone] Gamal Mari MD Unavailable [phone] Source Comments In the event this information is protected by the Federal Confidentiality of Alcohol and Drug AbusePatient Records regulations: The Federal rules restrict any use of the information to criminally investigate or prosecute any alcohol or drug abuse patient.[facility] Encounter Details Date Type Department Care Team (Late st Contact Info) Description 01/19/2025 Orders Only Hematology/Oncology [address] [place] [address] [place] [address] Marietta Andre, JAZZ.DATA MANAGEMENT ASSOCIATE [address] [facility] [place] [address] Social History Tobacco Use Types Packs/Day Years [...] is lower risk 8 03/13/2023 Data from: https://www.neighborhoodatlas.medicine.[facility].edu/. Last address used for calculation [address] [...] Description 02/22/2025 2:15 PM EDT Office Visit [facility] Laboratory [address] [facility] [place] [address] follow up lab and B12 02/22/2025 2:30 PM EDT Visit (SP) Office Hematology/Oncology [address] [facility] [place] [address] Kim Maldonado APRN.DATA MANAGEMENT ASSOCIATE [address] [facility] [place] [address] follow up lab and B12 02/22/2025 3:00 PM EDT Nurse Visit Hematology/Oncology [address] [facility] [place] [address] Matteo Kennedy Nurse Ervin [address] [facility] [place] [address] follow up lab and B12 03/22/2025 2:00 PM EDT Nurse Visit Hematology/Oncology [address] [facility] [place] [address] Matteo Kennedy Nurse Ervin [address] [facility] [place] [address] follow up lab and B12 04/20/2025 2:00 PM EDT Nurse Visit Hematology/Oncology [address] [facility] [place] [address] Mattoe Kennedy Nurse Ervin [address] [facility] [place] [address] follow up lab and B12 05/18/2025 2:00 PM EDT Nurse Visit Hematology/Oncology [address] [place] [address] Matteo Kennedy Nurse Ervin [address] [place] [address] follow up lab and B12 06/15/2025 2:00 PM EDT Nurse Visit Hematology/Oncology [address] [place] [address] Matteo Kennedy Nurse Ervin [address] [place] [address] follow up lab and B12 documented as of this encounter Visit Diagnoses Not on filedocumented in this encounter Care Teams Barnworker Groom Relationship Specialty Start Date End Date Gamal Mari MD [address] [facility] 110 [place] [address] PCP - General Family Medicine 11/05/18 Gamal Mari MD [address] [facility] [address] [place] [address] Referring Family Medicine 11/05/18 documented as of this encounter
--- OUTSIDE RECORDS SUMMARY | 2025-01-26 14:26 | XMS_ITS | Encounter Summary ---
Author Organization [facility] Address [address] [place] [address] Care Team Providers Care Lining Inserter Name Role Phone Gamal Mari MD Unavailable Gamal Mari MD Primary Care Provider [phone] Emmie Dela Cruz RN Unavailable [phone] Encounter Details Date Type Department Care Team (Late st Contact Info) Description 08/01/2023 Abstract [facility] FM [address] [facility] 110 [place] [address] Gamal Mari MD 112 [facility] 110 [place] [address] Social History Tobacco Use Types [...] and Family Not on file 08/05/2023 Attends Sabianism Services Not on file 08/05 Active Member [...] and heating? Not hard at all 02/21/2023 [facility] of Occupat ional Health - [...] Visit [facility] [address] [place] [address] Cristiane Duckworth MD [address] [place] [address] documented as of this encounter Visit Diagnoses Not on filedocumented in this encounter Care Teams Lining Inserter Relationship Specialty Start Date End Date Gamal Mari MD [address] [facility] 110 [place] [address] PCP - ACO Reach 01/17/23 Gamal Mari MD [address] [place] [address] PCP - General Family Medicine 01/28/23 Emmie Dela Cruz, RN Registered Nurse Family Medicine 08/05/23 10/21/24 documented as of this encounter
--- OUTSIDE RECORDS SUMMARY | 2025-01-26 14:26 | XMS_ITS | Encounter Summary ---
Author Organization [facility] Address [address] [place] [address] Care Team Providers Care Hospitality Ambassador Name Role Phone Gamal Mari MD Unavailable Gamal Mari MD Primary Care Provider [phone] Emmie Dela Cruz RN Unavailable [phone] Encounter Details Date Type Department Care Team (Late st Contact Info) Description 06/12/2023 Abstract [facility] 112 [facility] 110 [place] [address] Gamal Mari MD 112 [facility] 110 [place] [address] Social History Tobacco Use Types [...] week 02/21/2023 How often do you attend [facility] or christianity services? Patient declined 02/21/2023 Do you belong to any clubs o r organizations such as christian groups, unions, fraBarefoot Networks or athletic groups, or school groups? No [...] and heating? Not hard at all 02/21/2023 [facility] of Occupat ional Health - Occupational Stress [...] Visit [facility] [address] [place] [address] Cristiane Duckworth MD [address] [place] [address] documented as of this encounter Visit Diagnoses Not on filedocumented in this encounter Care Teams Hospitality Ambassador Relationship Specialty Start Date End Date Gamal Mari MD [address] [facility] 110 [place] [address] PCP - ACO Reach 01/17/23 Gamal Mari MD [address] [facility] 110 [place] [address] PCP - General Family Medicine 01/28/23 Emmie Dela Cruz, RN Registered Nurse Family Medicine 08/05/23 10/21/24 documented as of this encounter
--- OUTSIDE RECORDS SUMMARY | 2025-01-26 14:26 | XMS_ITS | Encounter Summary ---
Author Organization [facility] Address [address] [place] [address] Care Team Providers Care Site Supervisor Name Role Phone Gamal Mari MD Unavailable Gamal Mari MD Primary Care Provider [phone] Emmie Dela Cruz RN Unavailable [phone] Encounter Details Date Type Department Care Team (Late st Contact Info) Description 06/06/2023 Orders Only [facility] [address] 110 [place] [address] A, Unknown Practice [address] [place] [address] Social History Tobacco Use Types [...] How often do you attend chur or bahai services? Patient declined 02/21/2023 Do you belong to any clubs o r organizations such as caodaism groups, unions, fraConfidex or athletic groups, or school groups? No [...] and heating? Not hard at all 02/21/2023 [facility] of Occupat ional Health - Occupational Stress [...] Visit [facility] [address] [place] [address] Cristiane Duckworth MD [address] [place] [address] documented as of this encounter Procedures Procedure Name Priority Date/Time Associated Diagnosis Comments MAMMOGRAM* Routine 06/04/2023 10:37 AM EDT documented in this encounter Results * MAMMOGRAM* (06/04/2023 10:37 AM EDT) Anatomical Region Laterality Modality Radiographic Ana Maria ging us Unknown Practice A IMG XR PROCEDURES Final Resul t documented in this encounter Visit Diagnoses Not on filedocumented in this encounter Care Teams Site Supervisor Relationship Specialty Start Date End Date Gamal Mari MD [address] [facility] 110 [place] [address] PCP - ACO Reach 01/17/23 Gamal Mari MD [address] [place] [address] 110 [place] [id number] PCP - General Family Medicine 01/28/23 Emmie Dela Cruz, RN Registered Nurse Family Medicine 08/05/23 10/21/24 documented as of this encounter
--- OUTSIDE RECORDS SUMMARY | 2025-01-26 14:26 | XMS_ITS | Encounter Summary ---
Author Organization [facility] Address [address] [place] [address] Care Team Providers Care Barbering Teacher Name Role Phone Gamal Mari MD Unavailable Gamal Mari MD Primary Care Provider [phone] Emmie Dela Cruz RN Unavailable [phone] Encounter Details Date Type Department Care Team (Late st Contact Info) Description 04/12/2023 Abstract [facility] 112 [facility] 110 [place] [address] Francisca Saenz PA 112 [facility] 110 [place] [address] Social History Tobacco Use Types [...] How often do you attend chur or episcopal services? Patient declined 02/21/2023 Do you belong to any clubs o r organizations such as evangelical groups, unions, fraternal or athletic groups, or [...] and heating? Not hard at all 02/21/2023 [facility] of Occupat ional Health - [...] Visit [facility] [address] [place] [address] Cristiane Duckworth MD [address] [place] [address] documented as of this encounter Visit Diagnoses Not on filedocumented in this encounter Care Teams Barbering Teacher Relationship Specialty Start Date End Date Gamal Mari MD [address] [facility] 110 [place] [address] PCP - ACO Reach 01/17/23 Gamal Mari MD [address] [place] [address] PCP - General Family Medicine 01/28/23 Emmie Dela Cruz RN Registered Nurse Family Medicine 08/05/23 10/21/24 documented as of this encounter
--- OUTSIDE RECORDS SUMMARY | 2025-01-26 14:26 | XMS_ITS | Encounter Summary ---
Author Organization [facility] Address [address] [place] [address] Care Team Providers Care Cytogeneticist Name Role Phone Gamal Mari MD Unavailable Gamal Mari MD Primary Care Provider [phone] Emmie Dela Cruz RN Unavailable Encounter Details Date Type Department Care Team (Late st Contact Info) Description 02/14/2023 Orders Only [facility] [address] [place] [phone] Rosa Shearer MD [address] [place] [address] Social History Tobacco Use Types [...] Visit [facility] [address] [place] [address] Cristiane Duckworth MD [address] [place] [address] documented as of this encounter Procedures Procedure Name Priority Date/Time Associated Diagnosis Comments SCANNED LABS Routine 02/13/2023 8:14 AM EDT documented in this encounter Results * SCANNED LABS (02/13/2023 8:14 AM EDT) us Rosa Shearer MD LAB CHG PERFORMABLES Edited Re sult - Final documented in this encounter Visit Diagnoses Not on filedocumented in this encounter Care Teams Cytogeneticist Relationship Specialty Start Date End Date Gamal Mari MD [address] [facility] 110 [place] [address] PCP - ACO Reach 01/17/23 Gamal Mari MD [address] [facility] 110 [place] [address] PCP - General Family Medicine 01/28/23 Emmie Dela Cruz, YAA Registered Nurse Family Medicine 08/05/23 10/21/24 documented as of this encounter
--- OUTSIDE RECORDS SUMMARY | 2025-01-26 14:26 | XMS_ITS | Encounter Summary ---
Author Organization [facility] Address [address] [place] [address] Care Team Providers Care Trash Collector Supervisor Name Role Phone Gamal Mari MD Unavailable Gamal Mari MD Primary Care Provider [phone] Emmie Dela Cruz RN Unavailable [phone] Encounter Details Date Type Department Care Team (Late st Contact Info) Description 08/08/2023 Orders Only [facility] [address] [place] [address] A, Unknown Practice [address] [place] [address] Social History Tobacco Use Types [...] and Family Not on file 08/05/2023 Attends Spiritism Services Not on file 08/05 Active Member [...] and heating? Not hard at all 02/21/2023 [facility] of Occupat ional Health [...] Visit [facility] [address] [place] [address] Cristiane Duckworth MD [address] [place] [address] documented as of this encounter Procedures Procedure Name Priority Date/Time Associated Diagnosis Comments SCANNED LABS Routine 08/08/2023 10:08 AM EST documented in this encounter Results * SCANNED LABS (08/08/2023 10:08 AM EST) us Unknown Practice A LAB CHG PERFORMABLES Final Re sult documented in this encounter Visit Diagnoses Not on filedocumented in this encounter Care Teams Trash Collector Supervisor Relationship Specialty Start Date End Date Gamal Mari MD [address] [place] [address] PCP - ACO Reach 01/17/23 Gamal Mari MD [address] [place] [address] PCP - General Family Medicine 01/28/23 Emmie Dela Cruz, YAA Registered Nurse Family Medicine 08/05/23 10/21/24 documented as of this encounter
--- OUTSIDE RECORDS SUMMARY | 2025-01-26 14:26 | XMS_ITS | Encounter Summary ---
Author Organization [facility] Address [address] [place] [address] Care Team Providers Care Online Project Manager Name Role Phone Gamal Mari MD Unavailable Gamal Mari MD Primary Care Provider [phone] Emmie Dela Cruz RN Unavailable [phone] Encounter Details Date Type Department Care Team (Late st Contact Info) Description 08/23/2023 Orders Only [facility] [address] [place] [address] A, Unknown Practice [address] [place] [address] Social History Tobacco Use Types Packs/Day Years [...] and heating? Not hard at all 02/21/2023 [facility] of Occupat ional Health [...] Visit [facility] [address] [place] [address] Cristiane Duckworth MD [address] [place] [address] documented as of this encounter Procedures Procedure Name Priority Date/Time Associated Diagnosis Comments SCANNED LABS Routine 08/22/2023 8:21 AM EST documented in this encounter Results * SCANNED LABS (08/22/2023 8:21 AM EST) us Unknown Practice A LAB CHG PERFORMABLES Final Re sult documented in this encounter Visit Diagnoses Not on filedocumented in this encounter Care Teams Online Project Manager Relationship Specialty Start Date End Date Gamal Mari MD [address] [place] [address] PCP - ACO Reach 01/17/23 Gamal Mari MD [address] [place] [address] PCP - General Family Medicine 01/28/23 Emmie Dela Cruz, YAA Registered Nurse Family Medicine 08/05/23 10/21/24 documented as of this encounter
--- OUTSIDE RECORDS SUMMARY | 2025-01-26 14:26 | XMS_ITS | Encounter Summary ---
Author Organization [facility] Address [address] [place] [address] Care Team Providers Care Grain Ii Farmworker Name Role Phone Gamal Mari MD Unavailable Gamal Mari MD Primary Care Provider [phone] Emmie Dela Cruz RN Unavailable [phone] Encounter Details Date Type Department Care Team (Late st Contact Info) Description 09/03/2024 Abstract [facility] 112 [facility] 110 [place] [address] Gamal Mari MD 112 [facility] 110 [place] [address] Social History Tobacco Use Types [...] Recorded Patient Health Questionnaire-2 Score 0 10/21/2023 [facility] of Occupat ional Health - Occupational Stress [...] [facility] [address] [place] [address] Cristiane Duckworth MD [address] [place] [address] documented as of this encounter [...] documented as of this encounter Care Teams Grain Ii Farmworker Relationship Specialty Start Date End Date Gamal Mari MD [address] [place] [address] PCP - ACO Reach 01/17/23 Gamal Mari MD [address] [place] [address] PCP - General Family Medicine 01/28/23 Emmie Dela Cruz, RN Registered Nurse Family Medicine 08/05/23 10/21/24 documented as of this encounter
--- OUTSIDE RECORDS SUMMARY | 2025-01-26 14:26 | XMS_ITS | Encounter Summary ---
Author Organization [facility] Address [address] [place] [address] Care Team Providers Care Costume Design Teacher Name Role Phone Gamal Mari MD Primary Care Provider [phone] Gamal Mari MD Unavailable [phone] Source Comments In the event this information is protected by the Federal Confidentiality of Alcohol and Drug AbusePatient Records regulations: The Federal rules restrict any use of the information to criminally investigate or prosecute any alcohol or drug abuse patient.[facility] Encounter Details Date Type Department Care Team (Late st Contact Info) Description 01/20/2025 Orders Only Hematology/Oncology [address] [place] [address] [place] [address] Kim Maldonado APRN.CASTING ROOM HELPER [address] [facility] [place] [address] Social History Tobacco Use Types Packs/Day Years [...] is lower risk 8 03/13/2023 Data from: https://www.neighborhoodatlas.medicine.[facility].edu/. Last address used for calculation [address] [...] Description 02/22/2025 2:15 PM EDT Office Visit [facility] [address] [facility] [address] [place], [place] [address] follow up lab and B12 02/22/2025 2:30 PM EDT Visit (SP) Office Hematology/Oncology [address] [facility] [address] [place], [place] [address] Kim Maldonado, JAZZ.CASTING ROOM HELPER [address] [facility] [address] follow up lab and B12 02/22/2025 3:00 PM EDT Nurse Visit Hematology/Oncology [address] [facility] [address] Matteo Kennedy Nurse Ervin [address] [facility] [address] follow up lab and B12 03/22/2025 2:00 PM EDT Nurse Visit Hematology/Oncology [address] [facility] [address] Matteo Kennedy Nurse Ervin [address] [facility] [address] follow up lab and B12 04/20/2025 2:00 PM EDT Nurse Visit Hematology/Oncology [address] [place] [address] Matteo Kennedy Nurse Ervin [address] [facility] [address] follow up lab and B12 05/18/2025 2:00 PM EDT Nurse Visit Hematology/Oncology [address] [facility] [address] [place], [place] [address] Matteo Kennedy Nurse Ervin [address] [place] [address] follow up lab and B12 06/15/2025 2:00 PM EDT Nurse Visit Hematology/Oncology [address] [place] [address] Matteo Kennedy Nurse Ervin [address] [place] [address] follow up lab and B12 documented as of this encounter Visit Diagnoses Not on filedocumented in this encounter Care Teams Costume Design Teacher Relationship Specialty Start Date End Date Gamal Mari MD [address] [facility] 110 [place] [address] PCP - General Family Medicine 11/05/18 Gamal Mari MD [address] [facility] 110 [place] [address] Referring Family Medicine 11/05/18 documented as of this encounter
--- OUTSIDE RECORDS SUMMARY | 2025-01-26 14:26 | XMS_ITS | Clinical Summary ---
Author Organization [facility] Address [address] [place] [address] Phone Care Team Providers Care Glove Turner And Former Name Role Phone Unavailable Primary Care Provider [...]
--- OUTSIDE RECORDS SUMMARY | 2025-01-26 14:26 | XMS_ITS | Encounter Summary ---
Author Organization [facility] Address [address] [place] [address] Care Team Providers Care Regulatory Compliance Officer Name Role Phone Gamal Mari MD Primary Care Provider [phone] Gamal Mari MD Unavailable [phone] Source Comments In the event this information is protected by the Federal Confidentiality of Alcohol and Drug AbusePatient Records regulations: The Federal rules restrict any use of the information to criminally investigate or prosecute any alcohol or drug abuse patient.[facility] Encounter Details Date Type Department Care Team (Late st Contact Info) Description 01/19/2025 Orders Only Radiation Oncology [address] [place] [address] [place] [address] Jacinta Toney PAClaraC [address] [facility] [place] [address] Social History Tobacco Use Types Packs/Day Years [...] is lower risk 8 03/13/2023 Data from: https://www.neighborhoodatlas.medicine.[facility].edu/. Last address used for calculation [address] [...] Description 02/22/2025 2:15 PM EDT Office Visit [facility] [address] [facility] [place] [address] follow up lab and B12 02/22/2025 2:30 PM EDT Visit (SP) Office Hematology/Oncology [address] [facility] [place] [address] Kim Maldonado APRN.SHOP TAILOR APPRENTICE [address] [facility] [place] [address] follow up lab and B12 02/22/2025 3:00 PM EDT Nurse Visit Hematology/Oncology [address] [facility] [place] [address] Matteo Kennedy Nurse Ervin [address] [facility] [place] [address] follow up lab and B12 03/22/2025 2:00 PM EDT Nurse Visit Hematology/Oncology [address] [facility] [place] [address] Matteo Kennedy Nurse Ervin [address] [facility] [place] [address] follow up lab and B12 04/20/2025 2:00 PM EDT Nurse Visit Hematology/Oncology [address] [facility] [place] [address] Matteo Kennedy Nurse Ervin [address] [facility] [place] [address] follow up lab and B12 05/18/2025 2:00 PM EDT Nurse Visit Hematology/Oncology [address] [place] [address] Matteo Kennedy Nurse Ervin [address] [place] [address] follow up lab and B12 06/15/2025 2:00 PM EDT Nurse Visit Hematology/Oncology [address] [place] [address] Matteo Kennedy Nurse Ervin [address] [place] [address] follow up lab and B12 documented as of this encounter Visit Diagnoses Not on filedocumented in this encounter Care Teams Regulatory Compliance Officer Relationship Specialty Start Date End Date Gamal Mari MD [address] [facility] 110 [place] [address] PCP - General Family Medicine 11/05/18 Gamal Mari MD [address] [facility] 110 [place] [address] Referring Family Medicine 11/05/18 documented as of this encounter
--- OUTSIDE RECORDS SUMMARY | 2025-01-26 14:26 | XMS_ITS | Encounter Summary ---
Author Organization [facility] Address [address] [place] [address] Care Team Providers Care Vascular Specialists Name Role Phone Gamal Mari MD Primary Care Provider [phone] Gamal Mari MD Unavailable [phone] Source Comments In the event this information is protected by the Federal Confidentiality of Alcohol and Drug AbusePatient Records regulations: The Federal rules restrict any use of the information to criminally investigate or prosecute any alcohol or drug abuse patient.[facility] Encounter Details Date Type Department Care Team (Late st Contact Info) Description 03/11/2023 Abstract Hematology/Oncology [address] [place] [address] [place] [address] Maikel Resendiz MD [address] [place] [address] [place] [address] Social History Tobacco Use Types Packs/Day Years [...] is lower risk 8 03/13/2023 Data from: https://www.neighborhoodatlas.[facility].edu/. Last address used for calculation Jagdeep [...] Description 02/22/2025 2:15 PM EDT Office Visit [facility] [address] [place] [address] follow up lab and B12 02/22/2025 2:30 PM EDT Visit (SP) Office Hematology/Oncology [address] [place], [place] [address] Kim Maldonado APRN.PAINTER CHASSIS [address] [place], [place] [address] follow up lab and B12 02/22/2025 3:00 PM EDT Nurse Visit Hematology/Oncology [address] [place] [address] Matteo Kennedy Nurse Ervin [address] [place] [address] follow up lab and B12 03/22/2025 2:00 PM EDT Nurse Visit Hematology/Oncology [address] [place] [address] Matteo Kennedy Nurse Ervin [address] [place] [address] follow up lab and B12 04/20/2025 2:00 PM EDT Nurse Visit Hematology/Oncology [address] [place] [address] Matteo Kennedy Nurse Ervin [address] [place] [address] follow up lab and B12 05/18/2025 2:00 PM EDT Nurse Visit Hematology/Oncology [address] [place] [address] Matteo Kennedy Nurse Ervin [address] [place] [address] follow up lab and B12 06/15/2025 2:00 PM EDT Nurse Visit Hematology/Oncology [address] [facility] [place] [address] Matteo Kennedy Nurse Ervin [address] [facility] [place] [address] follow up lab and B12 documented as of this encounter Visit Diagnoses Not on filedocumented in this encounter Care Teams Vascular Specialists Relationship Specialty Start Date End Date Gamal Mari MD [address] [facility] 110 [place] [address] PCP - General Family Medicine 11/05/18 Gamal Mari MD [address] [facility] 110 [place] [address] Referring Family Medicine 11/05/18 documented as of this encounter
--- OUTSIDE RECORDS SUMMARY | 2025-01-26 14:26 | XMS_ITS | Encounter Summary ---
Author Organization [facility] Address [address] [place] [address] Care Team Providers Care Wire Coater Name Role Phone Gamal Mari MD Unavailable Gamal Mari MD Primary Care Provider [phone] Emmie Dela Cruz RN Unavailable [phone] Encounter Details Date Type Department Care Team (Late st Contact Info) Description 09/09/2023 Abstract [facility] [address] [facility] 110 [place] [address] Gamal Mari MD 112 [facility] 110 [place] [address] Social History Tobacco Use Types [...] and Family Not on file 08/05/2023 Attends Voodoo Services Not on file 08/05 Active Member [...] Visit [facility] [address] [place] [address] Cristiane Duckworth MD [address] [place] [address] documented as of this encounter Visit Diagnoses Not on filedocumented in this encounter Care Teams Wire Coater Relationship Specialty Start Date End Date Gamal Mari MD [address] [place] [address] PCP - ACO Reach 01/17/23 Gamal Mari MD [address] [place] [address] PCP - General Family Medicine 01/28/23 Emmie Dela Cruz, RN Registered Nurse Family Medicine 08/05/23 10/21/24 documented as of this encounter
--- OUTSIDE RECORDS SUMMARY | 2025-01-26 14:26 | XMS_ITS | Encounter Summary ---
Author Organization [facility] Address [address] [place] [address] Care Team Providers Care Bonsai Tender Name Role Phone Gamal Mari MD Unavailable Gamal Mari MD Primary Care Provider [phone] Emmie Dela Cruz RN Unavailable [phone] Encounter Details Date Type Department Care Team (Late st Contact Info) Description 06/29/2024 Abstract [facility] 112 [facility] 110 [place] [address] Gamal Mari MD 112 [facility] 110 [place] [address] Social History Tobacco Use Types [...] and Family Not on file 08/05/2023 Attends Shinto Services Not on file 08/05 Active Member [...] Patient Health Questionnaire-2 Score 0 10/21/2023 [facility] - Occupational [...] Visit [facility] [address] [place] [address] Cristiane Duckworth MD [address] [place] [address] documented as of this encounter Visit Diagnoses Not on filedocumented in this encounter Additional Health Concerns Assessment Noted Time PHQ-9 Depression Total Score: 0 10/21/19 24 10:00 AM EST documented as of this encounter Care Teams Bonsai Tender Relationship Specialty Start Date End Date Gamal Mari MD [address] [place] [address] PCP - ACO Reach 01/17/23 Gamal Mari MD [address] [place] [address] PCP - General Family Medicine 01/28/23 Emmie Dela Cruz, RN Registered Nurse Family Medicine 08/05/23 10/21/24 documented as of this encounter
--- OUTSIDE RECORDS SUMMARY | 2025-01-26 14:26 | XMS_ITS | Encounter Summary ---
Author Organization [facility] Address [address] [place] [address] Care Team Providers Care Cadence Specialists Name Role Phone Gamal Mari MD Unavailable Gamal Mari MD Primary Care Provider [phone] Emmie Dela Cruz RN Unavailable [phone] Encounter Details Date Type Department Care Team [...] How often do you attend chur or evangelical services? Patient declined 02/21/2023 Do you belong to any clubs o r organizations such as scientology groups, unions, fraternal or athletic groups, or [...] place to sleep or slept in a halfway (including now)? No 02/21/2023 Comments Unknown Sex [...] Visit [facility] [address] [place] [address] Cristiane Duckworth MD [address] [place] [address] documented as of this encounter Procedures Procedure [...] QTC Calculation(Bazett) : 483 ms Calculated R Mattoon : 53 degrees Calculated T Mattoon : 74 degrees SUPRAVENTRICULAR TACHYCARDIA WITH SHORT RP INTERVAL, CONSIDER AVNRT ABNORMAL ECG Confirmed by CAITIE LAND MD ([id number]) on 08/30/2023 9:42:57 AM NAME : IVONNE DEL CASTILLO PID : [id number] : 1955 Gender : Female Race : ORD : Procedure Date : Jul 31 2023 15:22:43 Edit Date : Aug 30 2023 09:43:01 Diagnosis: SUPRAVENTRICULAR TACHYCARDIA WITH SHORT RP INTERVAL, CONSIDER AVNRT ABNORMAL ECG Confirmed by CAITIE LAND MD ([id number]) on 08/30/2023 9:42:57 AM Test Reason : Location : 539 : [facility] Overread By : CAITIE LAND MD Edited By : CAITIE LAND MD Referred By : JAEL LUNSFORD Acquired by : , Procedure Note Radiology, Radiologist, MD - 08/30/2023 Ventricular Rate : 148 BPM Atrial Rate : 150 BPM QRS Duration : 112 ms Q-T Interval : 308 ms QTC Calculation(Bazett) : 483 ms Calculated R Mattoon : 53 degrees Calculated T Mattoon : 74 degrees SUPRAVENTRICULAR TACHYCARDIA WITH SHORT RP INTERVAL, CONSIDER AVNRT ABNORMAL ECG Confirmed by CAITIE LAND MD ([id number]) on 08/30/2023 9:42:57 AM NAME : IVONNE DEL CASTILLO PID : [id number] : 1955 Gender : Female Race : ORD : Procedure Date : Jul 31 2023 15:22:43 Edit Date : Aug 30 2023 09:43:01 Diagnosis: SUPRAVENTRICULAR TACHYCARDIA WITH SHORT RP INTERVAL, CONSIDERAVNRT ABNORMAL ECG Confirmed by CAITIE LAND MD ([id number]) on 08/30/2023 9:42:57 AM Test Reason : Location : 539 : [facility] Overread By : CAITIE LAND MD Edited By : CAITIE LAND MD Referred By : JAEL LUNSFORD Acquired by : , Generic External Data Provider [facility] Final Result documented in this encounter Visit Diagnoses Not on filedocumented in this encounter Care Teams Cadence Specialists Relationship Specialty Start Date End Date Gamal Mari MD [address] [facility] 110 [place] [address] PCP - ACO Reach 01/17/23 Gamal Mari MD [address] [place] [address] PCP - General Family Medicine 01/28/23 Emmie Dela Cruz, RN Registered Nurse Family Medicine 08/05/23 10/21/24 documented as of this encounter
--- OUTSIDE RECORDS SUMMARY | 2025-01-26 14:26 | XMS_ITS | Encounter Summary ---
Author Organization [facility] Address [address] [place] [address] Care Team Providers Care Credit Union Teller Name Role Phone Gamal Mari MD Unavailable Gamal Mari MD Primary Care Provider [phone] Emmie Dela Cruz RN Unavailable [phone] Encounter Details Date Type Department Care Team (Late st Contact Info) Description 09/09/2024 Abstract [facility] 112 [facility] 110 [place] [address] Gamal Mrai MD 112 [facility] 110 [place] [address] Social History Tobacco Use Types [...] [facility] [address] [place] [address] Cristiane Duckworth MD [address] [place] [address] documented as of this encounter [...] documented as of this encounter Care Teams Credit Union Teller Relationship Specialty Start Date End Date Gamal Mari MD [address] [place] [address] PCP - ACO Reach 01/17/23 Gamal Mari MD [address] [place] [address] PCP - General Family Medicine 01/28/23 Emmie Dela Cruz, RN Registered Nurse Family Medicine 08/05/23 10/21/24 documented as of this encounter
--- OUTSIDE RECORDS SUMMARY | 2025-01-26 14:26 | XMS_ITS | Encounter Summary ---
Author Organization [facility] Address [address] [place] [address] Care Team Providers Care Supervisor Cemetery Workers Name Role Phone Gamal Mari MD Unavailable Gamal Mari MD Primary Care Provider [phone] Emmie Dela Cruz RN Unavailable [phone] Encounter Details Date Type Department Care Team (Late st Contact Info) Description 07/28/2024 Abstract [facility] 112 [facility] 110 [place] [address] Gamal Mari MD 112 [facility] 110 [place] [address] Social History Tobacco Use Types [...] and Family Not on file 08/05/2023 Attends Mosque Services Not on file 08/05 Active Member [...] Recorded Patient Health Questionnaire-2 Score 0 10/21/2023 [facility] - [...] ENDOCRINOLOGY [address] [place] [address] Cristiane Duckworth MD [address] [place] [address] documented as of this encounter [...] as of this encounter Care Teams Supervisor Cemetery Workers Relationship Specialty Start Date End Date Gamal Mari MD [address] [place] [address] PCP - ACO Reach 01/17/23 Gamal Mari MD [address] [place] [address] PCP - General Family Medicine 01/28/23 Emmie Dela Cruz, RN Registered Nurse Family Medicine 08/05/23 10/21/24 documented as of this encounter
--- OUTSIDE RECORDS SUMMARY | 2025-01-26 14:27 | XMS_ITS | Encounter Summary ---
Author Organization [facility] Address [address] [place] [address] Care Team Providers Care Seed Cleaner Name Role Phone Gamal Mari MD Unavailable Gamal Mari MD Primary Care Provider [phone] Emmie Dela Cruz RN Unavailable [phone] Encounter Details Date Type Department Care Team (Late st Contact Info) Description 12/02/2023 Clinisync Result Encounter [facility] External Department Unsolicited Francisca Saenz, PA 112 [facility] 110 [place] [address] Social History Tobacco Use Types Packs/Day Years [...] Recorded Patient Health Questionnaire-2 Score 0 10/21/2023 [facility] Occupat ional Health - Occupational Stress [...] Visit [facility] [address] [place] [address] Cristiane Duckworth MD [address] [place] [address] documented as of this encounter Procedures Procedure Name Priority Date/Time Associated Diagnosis Comments XR DEXA AXIAL SKELETON 12/02/2023 10:50 AM EDT documented in this encounter Results * XR DEXA AXIAL SKELETON (12/02/2023 10:50 AM EDT) Anatomical Region Laterality Modality Other 12/02/2023 10:5 0 AM EDT Narrative 12/02/2023 10:53 AM EDT The [address] [address] XRay Report Signed Patient: GINNY DEL CASTILLO MR#: [id number] : 1955 Acct:[id number] Age/Sex: 68 / F ADM Date: 12/02/23 Loc: CT Attending Dr: FRANCISCA SAENZ Ordering Physician: FRANCISCA SAENZ Date of Service: 12/02/23 Procedure(s): XR DEXA axial skeleton Accession Number(s): [id number] cc: FRANCISCA SAENZ The [place] [address] Patient Name: GINNY DEL CASTILLO MRN: [id number] date: 1955 Sex: F Assigned Patient Location: CT Current Patient Location: CT Accession/Order Number: [id number] Exam Date: 12/02/2023 10:10 Report Date: 12/02/2023 [...] Signed By: 12/02/23 1053 DD/ 1050 TD/TT: Tire Spotter: Procedure Note Radiology, Radiologist, MD - 12/02/2023 [place] [address] XRay Report Signed Patient: GINNY DEL CASTILLO AMR#: [id number] : 1955cct:[id number] Age/Sex: 68 / FADM Date: 12/02/23 Loc: CT Attending Dr: FRANCISCA SAENZ Ordering Physician: FRANCISCA SAENZ Date of Service: 12/02/23 Procedure(s): XR DEXA axial skeleton Accession Number(s): [id number] cc: FRANCISCA SAENZ [place] [address] Patient Name: GINNY DEL CASTILLO MRN: [id number] date: 1955 Sex: F Assigned Patient Location: CT Current Patient Location: CT Accession/Order Number: [id number] Exam Date: 12/02/2023 10:10 Report Date: 12/02/2023 [...] M.D. Signed By:12/02/23 1053 DD/ 1050 TD/TT: Tire Spotter: us Francisca Saenz PA [facility] Final Result documented in this encounter Visit Diagnoses Not on filedocumented in this encounter Additional Health Concerns Assessment Noted Time PHQ-9 Depression Total Score: 0 10/21/19 24 10:00 AM EST documented as of this encounter Care Teams Seed Cleaner Relationship Specialty Start Date End Date Gamal Mari MD 112 [place] [address] PCP - ACO Reach 01/17/23 Gamal Mari MD 112 [facility] 110 [place] [id number] PCP - General Family Medicine 01/28/23 Emmie Dela Cruz, YAA Registered Nurse Family Medicine 08/05/23 10/21/24 documented as of this encounter
--- OUTSIDE RECORDS SUMMARY | 2025-01-26 14:27 | XMS_ITS | Encounter Summary ---
Author Organization [facility] Address [address] [place] [address] Care Team Providers Care Procurement Buyer Name Role Phone Gamal Mari MD Unavailable Gamal Mari MD Primary Care Provider [phone] Emmie Dela Cruz RN Unavailable [phone] Encounter Details Date Type Department Care Team (Late st Contact Info) Description 10/23/2023 Abstract [facility] 112 [facility] 110 [place] [address] Gamal Mari MD 112 [facility] 110 [place] [address] Social History Tobacco Use Types [...] and Family Not on file 08/05/2023 Attends Restorationism Services Not on file 08/05 Active Member [...] Recorded Patient Health Questionnaire-2 Score 0 10/21/2023 [facility] - [...] Visit [facility] [address] [place] [address] Cristiane Duckworth MD [address] [place] [address] documented as of this encounter Visit Diagnoses Not on filedocumented in this encounter Additional Health Concerns Assessment Noted Time PHQ-9 Depression Total Score: 0 10/21/19 24 10:00 AM EST documented as of this encounter Care Teams Procurement Buyer Relationship Specialty Start Date End Date Gamal Mari MD [address] [place] [address] PCP - ACO Reach 01/17/23 Gamal Mari MD [address] [place] [address] PCP - General Family Medicine 01/28/23 Emmie Dela Cruz, RN Registered Nurse Family Medicine 08/05/23 10/21/24 documented as of this encounter
--- OUTSIDE RECORDS SUMMARY | 2025-01-26 14:27 | XMS_ITS | Encounter Summary ---
Author Organization [facility] Address [address] [place] [address] Care Team Providers Care Sexer Name Role Phone Gamal Mari MD Unavailable Gamal Mari MD Primary Care Provider [phone] Emmie Dela Cruz RN Unavailable [phone] Encounter Details Date Type Department Care Team (Late st Contact Info) Description 12/09/2023 Orders Only [facility] [address] [place] [address] Unallocated, Noms Provider, [address] [place], [place] [address] Social History Tobacco Use Types Packs/Day Years [...] and Family Not on file 08/05/2023 Attends Jewish Services Not on file 08/05 Active Member [...] Recorded Patient Health Questionnaire-2 Score 0 10/21/2023 [facility] of Occupat ional Health - [...] Visit [facility] [address] [place] [address] Cristiane Duckworth MD [address] [place] [address] documented as of this encounter Procedures Procedure [...] documented as of this encounter Care Teams Sexer Relationship Specialty Start Date End Date Gamal Mari MD [address] [place] [address] PCP - ACO Reach 01/17/23 Gamal Mari MD 112 [facility] 110 [place] [id number] PCP - General Family Medicine 01/28/23 Emmie Dela Cruz, RN Registered Nurse Family Medicine 08/05/23 10/21/24 documented as of this encounter
--- OUTSIDE RECORDS SUMMARY | 2025-01-26 14:27 | XMS_ITS | Patient Health Record ---
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) Anxiety and depression (F41.9) Active confirmed Problem Vitamin B12 deficiency (non anemic) (73483053) Vitamin B 12 deficiency (E53.8) Active confirmed Problem Breast cancer (126032505) Breast cancer (C50.919) Active confirmed Problem Osteoporosis (44818835) Osteoporosis (M81.0) Active confirmed Problem Diverticulitis (03352396) Diverticulitis (562.11) Active confirmed Problem 01789852 Cigarette nicotine dependence without complication (F17.210) Active confirmed Problem Lumbago (679306825) Lumbago (M54.50) Active confirmed Plan Of Treatment No Information Insurance Providers Payer Name Payer Address Payer Phone Subscriber Number Group Number Insured Name Patient Relationship to Insured Coverage Start Date Coverage End Date [place] [address] [place] [address] [id number] Ivonne Del Castillo Self - patient is the insured [employer] [place] [address] [address] [place] [address] [id number] Ivonne Del Castillo Self - patient is [...]
--- OUTSIDE RECORDS SUMMARY | 2025-01-26 14:27 | XMS_ITS | Encounter Summary ---
Author Organization [facility] Address [address] [place] [address] Care Team Providers Care Nuclear Medicine Officer Name Role Phone Gamal Mari MD Unavailable Gamal Mari MD Primary Care Provider [phone] Emmie Dela Cruz RN Unavailable [phone] Encounter Details Date Type Department Care Team (Late st Contact Info) Description 10/23/2023 Abstract [facility] 112 [facility] 110 [place] [address] Gamal Mari MD 112 [facility] 110 [place] [address] Social History Tobacco Use Types [...] Recorded Patient Health Questionnaire-2 Score 0 10/21/2023 [facility] of Occupat ional Health - [...] Visit [facility] [address] [place] [address] Cristiane Duckworth MD [address] [place] [address] documented as of this encounter Visit Diagnoses Not on filedocumented in this encounter Additional Health Concerns Assessment Noted Time PHQ-9 Depression Total Score: 0 10/21/19 24 10:00 AM EST documented as of this encounter Care Teams Nuclear Medicine Officer Relationship Specialty Start Date End Date Gamal Mari MD [address] [place] [address] PCP - ACO Reach 01/17/23 Gamal Mari MD [address] [place] [address] PCP - General Family Medicine 01/28/23 Emmie Dela Cruz, RN Registered Nurse Family Medicine 08/05/23 10/21/24 documented as of this encounter
--- OUTSIDE RECORDS SUMMARY | 2025-01-26 14:27 | XMS_ITS | Encounter Summary ---
Author Organization [facility] Address [address] [place] [address] Care Team Providers Care Inpatient Coder Name Role Phone Gamal Mari MD Unavailable Gamal Mari MD Primary Care Provider [phone] Emmie Dela Cruz RN Unavailable [phone] Encounter Details Date Type Department Care Team (Late st Contact Info) Description 12/10/2023 Abstract [facility] 112 [facility] 110 [place] [address] Gamal Mari MD 112 [facility] 110 [place] [address] Social History Tobacco Use Types [...] Recorded Patient Health Questionnaire-2 Score 0 10/21/2023 [facility] of Occupat ional Health - [...] Visit [facility] [address] [place] [address] Cristiane Duckworth MD [address] [place] [address] documented as of this encounter Visit Diagnoses Not on filedocumented in this encounter Additional Health Concerns Assessment Noted Time PHQ-9 Depression Total Score: 0 10/21/19 24 10:00 AM EST documented as of this encounter Care Teams Inpatient Coder Relationship Specialty Start Date End Date Gamal Mari MD [address] [place] [address] PCP - ACO Reach 01/17/23 Gamla Mari MD [address] [place] [address] PCP - General Family Medicine 01/28/23 Emmie Dela Cruz, RN Registered Nurse Family Medicine 08/05/23 10/21/24 documented as of this encounter
--- OUTSIDE RECORDS SUMMARY | 2025-01-26 14:27 | XMS_ITS | Encounter Summary ---
Author Organization [facility] Address [address] [place] [address] Care Team Providers Care Nuclear Chemistry Technician Name Role Phone Gamal Mari MD Unavailable Gamal Mari MD Primary Care Provider [phone] Emmie Dela Cruz RN Unavailable [phone] Encounter Details Date Type Department Care Team (Late st Contact Info) Description 12/02/2023 Clinisync Result Encounter NOMS External Department Unsolicited Francisca Saenz, PA 112 [facility] 110 [place] [address] Social History Tobacco Use Types Packs/Day Years [...] and Family Not on file 08/05/2023 Attends Jehovah'S Witness Services Not on file 08/05 Active Member [...] Recorded Patient Health Questionnaire-2 Score 0 10/21/2023 [facility] of Occupat ional Health - Occupational Stress [...] Visit [facility] [address] [place] [address] Cristiane Duckworth MD [address] [place] [address] documented as of this encounter Procedures Procedure Name Priority Date/Time Associated Diagnosis Comments CT LUNG SCREENING LOW DOSE 12/02/2023 10:56 AM EDT documented in this encounter Results * CT LUNG SCREENING LOW DOSE (12/02/2023 10:56 AM EDT) Anatomical Region Laterality Modality Other 12/02/2023 10:5 6 AM EDT Narrative 12/02/2023 10:58 [place] [address] CT Scan Report Signed Patient: GINNY DEL CASTILLO MR#: [id number] : 1955 Acct:[id number] Age/Sex: 68 / F ADM Date: 12/02/23 Loc: CT Attending Dr: FRANCISCA SAENZ Ordering Physician: FRANCISCA SAENZ Date of Service: 12/02/23 Procedure(s): CT lung screening low-dose Accession Number(s): [id number] cc: FRANCISCA SAENZ [place] [id number] Patient Name: GINNY DEL CASTILLO MRN: [id number] date: 1955 Sex: F Assigned Patient Location: CT Current Patient Location: CT Accession/Order Number: [id number] Exam Date: 12/02/2023 10:06 Report Date: 12/02/2023 [...] Signed By: 12/02/23 1058 DD/ 1056 TD/TT: Band Tier: Procedure Note Radiology, Radiologist, MD - 12/02/[address] [address] [address] Scan Report Signed Patient: GINNY DEL CASTILLO AMR#: [id number] : 1955cct:[id number] Age/Sex: 68 / FADM Date: 12/02/23 Loc: CT Attending Dr: FRANCISCA SAENZ Ordering Physician: FRANCISCA SAENZ Date of Service: 12/02/23 Procedure(s): CT lung screening low-dose Accession Number(s): [id number] cc: FRANCISCA SAENZ [place] [id number] Patient Name: GINNY DEL CASTILLO MRN: [id number]:[id number] date: 1955 Sex: F Assigned Patient Location: CT Current Patient Location: CT Accession/Order Number: [id number] Exam Date: 12/02/2023 10:06 Report Date: 12/02/2023 [...] M.D. Signed By:12/02/23 1058 DD/ 1056 TD/TT: Band Tier: us Francisca [facility] Final Result documented in this encounter Visit Diagnoses Not on filedocumented in this encounter Additional Health Concerns Assessment Noted Time PHQ-9 Depression Total Score: 0 10/21/19 24 10:00 AM EST documented as of this encounter Care Teams Nuclear Chemistry Technician Relationship Specialty Start Date End Date Gamal Mari MD 112 [facility] 110 [place] [address] PCP - ACO Reach 01/17/23 Gamal Mari MD [address] [facility] 110 [place] [address] PCP - General Family Medicine 01/28/23 Emmie Dela Cruz, RN Registered Nurse Family Medicine 08/05/23 10/21/24 documented as of this encounter
[2025-01-26 15:19] LABS: Free T3 2.66 pg/mL (2.18-3.98); Thyroid Stimulating Hormone 2.194 uIU/mL (0.358-3.740)
[2025-01-26 15:58] LABS: Free T4 1.23 ng/dL (0.76-1.46)
== END 2025-01-26 14:15 | disposition home or self-care (01) ==
LOC: LAB 14:21
PROVIDERS: PCP Physician Assistant; Visit Provider Internal Medicine
DX: E06.3 Autoimmune thyroiditis (principal)
CPT/HCPCS: 36415; 84439; 84443; 84481

== ENCOUNTER 2025-02-15 16:29 | Outpatient (RCR) | payer MEDICARE, OTHER, SELFPAY | END 2025-03-11 13:07 | disposition home or self-care (01) | LOC: PT 16:29 | PROVIDERS: PCP Physician Assistant; Visit Provider Physician Assistant | DX: M62.838 Other muscle spasm (principal) | CPT/HCPCS: 97110; 97162; G0283 ==

== ENCOUNTER 2025-04-05 16:38 | Outpatient (OUT) | payer MEDICARE, OTHER, SELFPAY ==
--- OUTSIDE RECORDS SUMMARY | 2025-03-22 14:00 | XMS_ITS | Encounter Summary ---
Author Organization [facility] Address [address] [place] [address] Care Team Providers Care Dental Laboratory Assistant Name Role Phone Gamal Mari MD Primary Care Provider [phone] Gamal Mari MD Unavailable [phone] Source Comments In the event this information is protected by the Federal Confidentiality of Alcohol and Drug AbusePatient Records regulations: The Federal rules restrict any use of the information to criminally investigate or prosecute any alcohol or drug abuse patient.[facility] Encounter Details Date Type Department Care Team (Late st Contact Info) Description 03/22/2025 2:00 PM EDT Nurse Visit Hematology/Oncology [address] [facility] [place] [address] Matteo Kennedy Nurse Ervin [address] [place] [address] Anemia, unspecified type (Primary Dx); [...] is lower risk 8 03/13/2023 Data from: https://www.neighborhoodatlas.medicine.[facility]/. Last address used for calculation [address] 03/13/2023 Comments No Sex and Gender Information Value Date Recorded Sex Assigned at Not on file Legal Sex Female 10:38 AM EDT Gender Identity Not on file Sexual Orientation Not on file documented as of this encounter Last Filed Vital Signs Vital Sign Reading Time Taken Comments Blood Pressure 140/86 03/22/2025 1:50 PM EDT Pulse 90 03/22/2025 1:50 PM EDT Temperature 36.4 C (97.6 F) 03/22/2025 1:50 PM EDT Respiratory Rate 16 03/22/2025 1:50 PM EDT Oxygen Saturation 96% 03/22/2025 1:50 PM EDT Inhaled Oxygen Concentration - - Weight - - Height - - Body Mass Index - - documented in this encounter Progress Notes * Shirley Pierre MA - 03/22/2025 1:55 PM EDT Patient Identification confirmed: yes. Injection given and documented on OCT per provider order. Shirley Pierre MA documented in this encounter Plan of Treatment Upcoming Encounters Date Type Department Care Team (Latest Contact Info) Description 04/20/2025 2:00 PM EDT Nurse Visit Hematology/Oncology [address] [place] [address] [place] [address] Matteo Kennedy Nurse Ervin [address] [facility] [place] [address] monthly B12 05/18/2025 1:45 PM EDT Office Visit [facility] [address] [facility] [place] [address] lab 05/18/2025 2:00 PM EDT Nurse Visit Hematology/Oncology [address] [place] [address] [place] [address] Matteo Kennedy Nurse Ervin [address] [facility] [place] [address] b12 06/15/2025 2:00 PM EDT Nurse Visit Hematology/Oncology [address] [facility] [place] [address] Matteo Kennedy Nurse Ervin [address] [facility] [place] [address] monthly B12 07/13/2025 2:00 PM EST Nurse Visit Hematology/Oncology [address] [facility] [place] [address] Matteo Kennedy Nurse Ervin [address] [facility] [place] [address] monthly B12 08/09/2025 2:15 PM EST Office Visit [facility] [address] [facility] [place] [address] follow up lab and B12 08/09/2025 2:30 PM EST Visit (SP) Office Hematology/Oncology [address] [facility] [place] [address] Kim Maldonado APRN.BIOLOGICAL SCIENCE TECHNICIAN FISH [address] [facility] [place] [address] follow up lab and B12 08/09/2025 3:00 PM EST Nurse Visit Hematology/Oncology [address] [facility] [place] [address] Matteo Kennedy Nurse Ervin [address] [facility] [place] [address] follow up lab and B12(seeing Kim uribe) documented as of this encounter Visit Diagnoses Diagnosis Anemia, 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 Other vitamin B12 deficiency anemia documented in this encounter Administered Medications Inactive Administered Medications - up to 3 most recent administrations Medication Order MAR Action Action Date Dose Rate Site cyanocobalamin 1,000 mcg injection 1,000 mcg, INTRAMUSCULAR, ONCE, 1 dose, On Sat03/22/25 at 1400Indications:Anemia, unspecified type,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 deficiency Given 03/22/2025 2:00 PM EDT 1,000 mcg Deltoid, Right documented in this encounter Care Teams Dental Laboratory Assistant Relationship Specialty Start Date End Date Gamal Mari MD [address] [place] [address] 110 [place] [address] PCP - General Family Medicine 11/05/18 Gamal Mari MD 112 [facility] 110 [place] [address] Referring Family Medicine 11/05/18 documented as of this encounter
--- OUTSIDE RECORDS SUMMARY | 2025-04-05 16:42 | XMS_ITS | Encounter Summary ---
Author Organization [facility] Address [address] [place] [address] Care Team Providers Care Honey Processor Name Role Phone Gamal Mari MD Unavailable Gamal Mari MD Primary Care Provider [phone] Encounter Details Date Type Department Care Team (Late st Contact Info) Description 01/21/2025 Abstract [facility] [place] [facility] [address] [facility] 110 [place] [address] Gamal Mari MD [address] [facility] 110 [place] [address] Social History Tobacco Use Types Packs/Day Years [...] Recorded Patient Health Questionnaire-2 Score 0 01/14/2025 [facility] of Occupat ional Health - Occupational [...] Care Team (Late st Contact Info) Description 02/09/2026 1:00 PM EDT Office Visit [facility] [place] [facility] [address] [place] [address] Cristiane Duckworth MD [address] [place] [address] documented as of this encounter Goals Goal [...] documented as of this encounter Care Teams Honey Processor Relationship Specialty Start Date End Date Gamal Mari MD [address] [place] [address] PCP - ACO Reach 01/17/23 Gamal Mari MD [address] [place] [address] PCP - General Family Medicine 01/28/23 documented as of this encounter
--- OUTSIDE RECORDS SUMMARY | 2025-04-05 16:42 | XMS_ITS | Encounter Summary ---
Author Organization [facility] Address [address] [place] [address] Care Team Providers Care Associate Professor Of Radiology Name Role Phone Gamal Mari MD Unavailable Gamal Mari MD Primary Care Provider [phone] Emmie Dela Cruz RN Unavailable [phone] Encounter Details Date Type Department Care Team (Late st Contact Info) Description 01/23/2024 Orders Only [facility] [place] [facility] [address] [facility] 110 [place] [address] Unallocated, Noms Provider, [address] [place], [place] [address] Social History Tobacco Use Types Packs/Day Years [...] Recorded Patient Health Questionnaire-2 Score 0 10/21/2023 [facility] of Occupat ional Health - [...] EDT Office Visit [facility] [place] [facility] [address] [place] [address] Cristiane Duckworth MD [address] [place] [address] documented as of this encounter Procedures Procedure [...] documented as of this encounter Care Teams Associate Professor Of Radiology Relationship Specialty Start Date End Date Gamal Mari MD [address] [place] [address] PCP - ACO Reach 01/17/23 Gamal Mari MD 112 [facility] 110 [place] [address] PCP - General Family Medicine 01/28/23 Emmie Dela Cruz, RN [address] [facility] 230 [place] [address] Registered Nurse Family Medicine 08/05/23 10/21/24 documented as of this encounter
--- OUTSIDE RECORDS SUMMARY | 2025-04-05 16:42 | XMS_ITS | Encounter Summary ---
Author Organization [facility] Address [address] [place] [address] Care Team Providers Care Lift Manager Name Role Phone Gamal Mari MD Unavailable Gamal Mari MD Primary Care Provider [phone] Emmie Dela Cruz RN Unavailable [phone] Encounter Details Date Type Department Care Team (Late st Contact Info) Description 06/09/2024 Abstract [facility] [place] [facility] 112 [facility] 110 [place] [address] Gamal Mari MD 112 [facility] 110 [place], [place] [address] Social History Tobacco Use Types Packs/Day Years [...] and Family Not on file 08/05/2023 Attends Catholic Services Not on file 08/05 Active [...] [facility] [place] [facility] [address] [place] [address] Cristiane Duckworth MD [address] [place] [address] documented as of this encounter Visit Diagnoses Not on filedocumented in this encounter Additional Health Concerns Assessment Noted Time PHQ-9 Depression Total Score: 0 10/21/19 24 10:00 AM EST documented as of this encounter Care Teams Lift Manager Relationship Specialty Start Date End Date Gamal Mari MD [address] [facility] 110 [place] [address] PCP - ACO Reach 01/17/23 Gamal Mari MD [address] [facility] 110 [place] [address] PCP - General Family Medicine 01/28/23 Emmie Dela Cruz, YAA [address] [place] [address] Registered Nurse Family Medicine 08/05/23 10/21/24 documented as of this encounter
--- OUTSIDE RECORDS SUMMARY | 2025-04-05 16:42 | XMS_ITS | Encounter Summary ---
Author Organization [facility] Address [address] [place] [address] Care Team Providers Care Authorizer Name Role Phone Gamal Mari MD Unavailable Gamal Mari MD Primary Care Provider [phone] Emmie Dela Cruz RN Unavailable [phone] Encounter Details Date Type Department Care Team (Late st Contact Info) Description 12/30/2023 Orders [facility] [place] [facility] [address] [facility] 110 [place] [address] Unallocated, Noms Provider, [address] [place], [place] [address] Social History Tobacco Use Types Packs/Day Years [...] [facility] [place] [facility] [address] [place] [address] Cristiane Duckworth MD [address] [place] [address] documented as of this encounter Procedures Procedure Name Priority Date/Time Associated Diagnosis Comments XR KNEE 4+ VIEWS RIGHT Routine 12/26/2023 10:22 AM EDT documented in this encounter Results * XR knee 4+ views right (12/26/2023 10:22 AM EDT) Anatomical Region Laterality Modality Lower Extremities, Knee Right Radiogra phic Imaging us Noms Provider Unallocated MD WILSON XR PROCEDURES F inal Result documented in this encounter Visit Diagnoses Not on filedocumented in this encounter Additional Health Concerns Assessment Noted Time PHQ-9 Depression Total Score: 0 10/21/19 24 10:00 AM EST documented as of this encounter Care Teams Authorizer Relationship Specialty Start Date End Date Gamal Mari MD [address] [facility] 110 [place] [address] PCP - ACO Reach 01/17/23 Gamal Mari MD [address] [facility] 110 [place] [address] PCP - General Family Medicine 01/28/23 Emmie Dela Cruz, RN [address] [facility] [address] [place] [address] Registered Nurse Family Medicine 08/05/23 10/21/24 documented as of this encounter
--- OUTSIDE RECORDS SUMMARY | 2025-04-05 16:42 | XMS_ITS | Encounter Summary ---
Author Organization [facility] Address [address] [place] [address] Care Team Providers Care Chart Picker Name Role Phone Gamal Boggs MD Unavailable Gamal Boggs MD Primary Care Provider [phone] Emmie Dela Cruz RN Unavailable Encounter Details Date Type Department Care Team (Late st Contact Info) Description 03/18/2024 Clinisync Result Encounter NOMS External Department Unsolicited Gamal Boggs MD [address] [facility] 110 [place] [address] Social History Tobacco Use Types Packs/Day Years [...] and Family Not on file 08/05/2023 Attends Christianity Services Not on file 08/05 Active Member [...] Recorded Patient Health Questionnaire-2 Score 0 10/21/2023 [facility] of Occupat ional Health - Occupational Stress [...] [facility] [place] [facility] [address] [place] [address] Cristiane Duckworth MD [address] [place] [address] documented as of this encounter Procedures Procedure Name Priority Date/Time Associated Diagnosis Comments XR KNEE 1-2 VIEWS LEFT 03/18/2024 7:39 AM EDT documented in this encounter Results * XR knee 1 or 2 views left (03/18/2024 7:39 AM EDT) Anatomical Region Laterality Modality Lower Extremities, Knee Left Radiogra [facility] Imaging 03/18/2024 7:39 AM EDT Narrative 03/18/2024 7:41 AM EDT The [address] [address] XRay Report Signed Patient: GINNY DEL CASTILLO MR#: [id number] : 1955 Acct:[id number] Age/Sex: 68 / F ADM Date: 03/17/24 Loc: RAD Attending Dr: GAMAL BOGGS Ordering Physician: GAMAL BOGGS Date of Service: 03/17/24 Procedure(s): XR knee LT 2V Accession Number(s): [id number] cc: GAMAL BOGGS ; HONORIO ROJAS [place] [id number] Patient Name: GINNY DEL CASTILLO MRN: [facility]:[id number] date: 1955 Sex: F Assigned Patient Location: RAD Current Patient Location: Accession/Order Number: [id number] Exam Date: 03/17/2024 12:00 Report Date: 03/18/2024 [...] Valle M.D. Signed By: 03/18/24 0741 DD/ 0739 TD/TT: Administrator Pesticide: Procedure Note Radiology, Radiologist, MD - 03/18/2024 [place] [address] XRay Report Signed Patient: GINNY DEL CASTILLO AMR#: [id number] : 1955cct:[id number] Age/Sex: 68 / FADM Date: 03/17/24 Loc: RAD Attending Dr: GAMAL BOGGS Ordering Physician: GAMAL BOGGS Date of Service: 03/17/24 Procedure(s): XR knee LT 2V Accession Number(s): [id number] cc: GAMAL BOGGS [place] [address] Patient Name: GINNY DEL CASTILLO MRN: [id number] date: 1955 Sex: F Assigned Patient Location: [facility] Current Patient Location: Accession/Order Number: [id number] Exam Date: 03/17/2024 12:00 Report Date: 03/18/2024 [...] M.D. Signed By:03/18/24 0741 DD/ 0739 TD/TT: Administrator Pesticide: Gamal Boggs MD IMG XR PROCEDURES Final Result documented in this encounter Visit Diagnoses Not on filedocumented in this encounter Additional Health Concerns Assessment Noted Time PHQ-9 Depression Total Score: 0 10/21/19 24 10:00 AM EST documented as of this encounter Care Teams Chart Picker Relationship Specialty Start Date End Date Gamal Boggs MD [address] [place] [facility] 110 [place] [address] PCP - ACO Reach 01/17/23 Gamal Boggs MD [address] [facility] 110 [place] [address] PCP - General Family Medicine 01/28/23 Emmie Dela Cruz, YAA [address] [facility] 230 [place] [address] Registered Nurse Family Medicine 08/05/23 10/21/24 documented as of this encounter
--- OUTSIDE RECORDS SUMMARY | 2025-04-05 16:42 | XMS_ITS | Encounter Summary ---
Author Organization [facility] Address [address] [place] [address] Care Team Providers Care Skein Dyer Name Role Phone Gamal Mari MD Unavailable Gamal Mari MD Primary Care Provider [phone] Emmie Dela Cruz RN Unavailable [phone] Encounter Details Date Type Department Care Team (Late st Contact Info) Description 05/14/2024 Abstract [facility] [place] [facility] 112 [facility] 110 [place] [address] Gamal Mari MD 112 [facility] 110 [place], [place] [id number] Social History Tobacco Use Types Packs/Day Years [...] and Family Not on file 08/05/2023 Attends Alevism Services Not on file 08/05 Active Member [...] [facility] [address] [place] [address] Cristiane Duckworth MD [address] [place] [address] documented as of this encounter Visit Diagnoses Not on filedocumented in this encounter Additional Health Concerns Assessment Noted Time PHQ-9 Depression Total Score: 0 10/21/19 24 10:00 AM EST documented as of this encounter Care Teams Skein Dyer Relationship Specialty Start Date End Date Gamal Mari MD [address] [facility] 110 [place] [address] PCP - ACO Reach 01/17/23 Gamal Mari MD [address] [facility] 110 [place] [address] PCP - General Family Medicine 01/28/23 Emmie Dela Cruz, YAA [address] [place] [address] Registered Nurse Family Medicine 08/05/23 10/21/24 documented as of this encounter
--- OUTSIDE RECORDS SUMMARY | 2025-04-05 16:42 | XMS_ITS | Encounter Summary ---
Author Organization [facility] Address [address] [place] [address] Care Team Providers Care Jacquard Lace Weaver Name Role Phone Gamal Mari MD Unavailable Gamal Mari MD Primary Care Provider [phone] Emmie Dela Cruz RN Unavailable [phone] Encounter Details Date Type Department Care Team (Late st Contact Info) Description 03/26/2024 Abstract [facility] [place] [facility] 112 [facility] 110 [place] [address] Gamal Mari MD 112 [facility] 110 [place], [place] [id number] Social History Tobacco Use Types Packs/Day Years [...] Recorded Patient Health Questionnaire-2 Score 0 10/21/2023 [facility] of Occupat ional Health - [...] [facility] [address] [place] [address] Cristiane Duckworth MD [address] [place] [address] documented as of this encounter Visit Diagnoses Not on filedocumented in this encounter Additional Health Concerns Assessment Noted Time PHQ-9 Depression Total Score: 0 10/21/19 24 10:00 AM EST documented as of this encounter Care Teams Jacquard Lace Weaver Relationship Specialty Start Date End Date Gamal Mari MD [address] [facility] 110 [place] [address] PCP - ACO Reach 01/17/23 Gamal Mari MD [address] [facility] 110 [place] [address] PCP - General Family Medicine 01/28/23 Emmie Dela Cruz, YAA [address] [place] [address] Registered Nurse Family Medicine 08/05/23 10/21/24 documented as of this encounter
--- OUTSIDE RECORDS SUMMARY | 2025-04-05 16:42 | XMS_ITS | Encounter Summary ---
Author Organization [facility] Address [address] [place] [address] Care Team Providers Care Senior It Project Manager Name Role Phone Gamal Mari MD Unavailable Gamal Mari MD Primary Care Provider [phone] Emmie Dela Cruz RN Unavailable [phone] Encounter Details Date Type Department Care Team (Late st Contact Info) Description 12/30/2023 Abstract [facility] [place] [facility] [address] [facility] 110 [place] [address] Gamal Mari MD 112 [facility] 110 [place], [place] [id number] Social History Tobacco Use Types Packs/Day Years [...] [facility] [address] [place] [address] Cristiane Duckworth MD [address] [place] [address] documented as of this encounter Visit Diagnoses Not on filedocumented in this encounter Additional Health Concerns Assessment Noted Time PHQ-9 Depression Total Score: 0 10/21/19 24 10:00 AM EST documented as of this encounter Care Teams Senior It Project Manager Relationship Specialty Start Date End Date Gamal Mari MD [address] [facility] 110 [place] [address] PCP - ACO Reach 01/17/23 Gamal Mari MD [address] [facility] 110 [place] [address] PCP - General Family Medicine 01/28/23 Emmie Dela Cruz, YAA [address] [place] [address] Registered Nurse Family Medicine 08/05/23 10/21/24 documented as of this encounter
--- OUTSIDE RECORDS SUMMARY | 2025-04-05 16:42 | XMS_ITS | Encounter Summary ---
Author Organization [facility] Address [address] [place] [address] Care Team Providers Care Pit Worker Power Shovel Name Role Phone Gamal Mari MD Unavailable Gamal Mari MD Primary Care Provider [phone] Emmie Dela Cruz RN Unavailable [phone] Encounter Details Date Type Department Care Team (Late st Contact Info) Description 06/23/2024 Abstract [facility] [place] [facility] 112 [facility] 110 [place] [address] Gamal Mari MD 112 [facility] 110 [place], [place] [id number] Social History Tobacco Use Types Packs/Day Years [...] [facility] [address] [place] [address] Cristiane Duckworth MD [address] [place] [address] documented as of this encounter Visit Diagnoses Not on filedocumented in this encounter Additional Health Concerns Assessment Noted Time PHQ-9 Depression Total Score: 0 10/21/19 24 10:00 AM EST documented as of this encounter Care Teams Pit Worker Power Shovel Relationship Specialty Start Date End Date Gamal Mari MD [address] [facility] 110 [place] [address] PCP - ACO Reach 01/17/23 Gamal Mari MD [address] [facility] 110 [place] [address] PCP - General Family Medicine 01/28/23 Emmie Dela Cruz, YAA [address] [place] [address] Registered Nurse Family Medicine 08/05/23 10/21/24 documented as of this encounter
--- OUTSIDE RECORDS SUMMARY | 2025-04-05 16:42 | XMS_ITS | Encounter Summary ---
Author Organization [facility] Address [address] [place] [address] Care Team Providers Care Pyrotechnic Mixer Name Role Phone Gamal Mari MD Unavailable Gamal Mari MD Primary Care Provider [phone] Emmie Dela Cruz RN Unavailable [phone] Encounter Details Date Type Department Care Team (Late st Contact Info) Description 03/12/2024 Abstract [facility] [place] [facility] 112 [facility] 110 [place] [address] Gamal Mari MD 112 [facility] 110 [place], [place] [address] Social History Tobacco Use Types Packs/Day Years [...] [facility] [address] [place] [address] Cristiane Duckworth MD [address] [place] [address] documented as of this encounter Visit Diagnoses Not on filedocumented in this encounter Additional Health Concerns Assessment Noted Time PHQ-9 Depression Total Score: 0 10/21/19 24 10:00 AM EST documented as of this encounter Care Teams Pyrotechnic Mixer Relationship Specialty Start Date End Date Gamal Mari MD [address] [facility] 110 [place] [address] PCP - ACO Reach 01/17/23 Gamal Mari MD [address] [facility] 110 [place] [address] PCP - General Family Medicine 01/28/23 Emmie Dela Cruz, YAA [address] [place] [address] Registered Nurse Family Medicine 08/05/23 10/21/24 documented as of this encounter
--- OUTSIDE RECORDS SUMMARY | 2025-04-05 16:42 | XMS_ITS | Encounter Summary ---
Author Organization [facility] Address [address] [place] [address] Care Team Providers Care Academic Affairs Dean Name Role Phone Gamal Mari MD Unavailable Gamal Mari MD Primary Care Provider [phone] Emmie Dela Cruz RN Unavailable [phone] Encounter Details Date Type Department Care Team (Late st Contact Info) Description 06/08/2024 Abstract [facility] [place] [facility] 112 [facility] 110 [place] [address] Gamal Mari MD 112 [facility] 110 [place], [place] [address] Social History Tobacco Use Types Packs/Day Years [...] Patient Health Questionnaire-2 Score 0 10/21/2023 [facility] of Occupat ional Health - Occupational [...] [facility] [address] [place] [address] Cristiane Duckworth MD [address] [place] [address] documented as of this encounter Visit Diagnoses Not on filedocumented in this encounter Additional Health Concerns Assessment Noted Time PHQ-9 Depression Total Score: 0 10/21/19 24 10:00 AM EST documented as of this encounter Care Teams Academic Affairs Dean Relationship Specialty Start Date End Date Gamal Mari MD [address] [facility] 110 [place] [address] PCP - ACO Reach 01/17/23 Gamal Mari MD [address] [facility] 110 [place] [address] PCP - General Family Medicine 01/28/23 Emmie Dela Cruz, YAA [address] [place] [address] Registered Nurse Family Medicine 08/05/23 10/21/24 documented as of this encounter
--- OUTSIDE RECORDS SUMMARY | 2025-04-05 16:42 | XMS_ITS | Encounter Summary ---
Author Organization [facility] Address [address] [place] [address] Care Team Providers Care Private Equity Analyst Name Role Phone Gamal Mari MD Unavailable Gamal Mari MD Primary Care Provider [phone] Emmie Dela Cruz RN Unavailable [phone] Encounter Details Date Type Department Care Team (Late st Contact Info) Description 12/26/2023 Clinisync Result Encounter N[facility] External Department Unsolicited Aggie Prince, RESOURCE MANAGER 112 [facility] 110 [place] [address] Social History Tobacco Use Types Packs/Day Years [...] and Family Not on file 08/05/2023 Attends Yazdanism Services Not on file 08/05 Active Member [...] Recorded Patient Health Questionnaire-2 Score 0 10/21/2023 [facility] of Occupat ional Health - Occupational Stress [...] Description 02/09/2026 1:00 PM EDT Office Visit [facility] [address] [place] [address] Cristiane Duckworth MD [address] [place] [address] documented as of this encounter Procedures Procedure Name Priority Date/Time Associated Diagnosis Comments XR KNEE 4+ VIEWS RIGHT 12/26/2023 3:05 PM EDT documented in this encounter Results * XR knee 4+ views right (12/26/2023 3:05 PM EDT) Anatomical Region Laterality Modality Lower Extremities, Knee Right Radiogra [facility] Imaging 12/26/2023 3:05 PM EDT Narrative 12/26/2023 3:07 PM EDT The [address] [address] XRay Report Signed Patient: GINNY DEL CASTILLO MR#: [id number] : 1955 Acct:[id number] Age/Sex: 68 / F ADM Date: 12/26/23 Loc: RAD Attending Dr: AGGIE PRINCE Ordering Physician: AGGIE PRINCE of Service: 12/26/23 Procedure(s): XR knee RT 4V Accession Number(s): [id number] cc: HONORIO ROJAS ; AGGIE PRINCE [place] [id number] Patient Name: GINNY DEL CASTILLO MRN: [id number] date: 1955 Sex: F Assigned Patient Location: [facility] Current Patient Location: RAD Accession/Order Number: [id number] Exam Date: 12/26/2023 14:30 Report Date: 12/26/2023 [...] Signed By: 12/26/23 1507 DD/ 1505 TD/TT: Mallet Cutter: Procedure Note Radiology, Radiologist, MD - 12/26/2023 [place] [address] XRay Report Signed Patient: GINNY DEL CASTILLO AMR#: [id number] : 1955cct:[id number] Age/Sex: 68 / FADM Date: 12/26/23 Loc: RAD Attending Dr: AGGIE PRINCE Ordering Physician: AGGIE PRINCE Date of Service: 12/26/23 Procedure(s): XR knee RT 4V Accession Number(s): [id number] cc: HONORIO ROJAS ; AGGIE PRINCE [place] [id number] Patient Name: GINNY DEL CASTILLO MRN: [id number] date: 1955 Sex: F Assigned Patient Location: RAD Current Patient Location: RAD Accession/Order Number: [id number] Exam Date: 12/26/2023 14:30 Report Date: 12/26/2023 [...] DEL VALLE Date: 12/26/2023 15:05 Dictated By: Aelxandro Del Valle M.D. Signed By:12/26/23 1507 DD/ 1505 TD/TT: Mallet Cutter: us Aggie Prince RESOURCE MANAGER IMG XR PROCEDURES Final Resu lt documented in this encounter Visit Diagnoses Not on filedocumented in this encounter Additional Health Concerns Assessment Noted Time PHQ-9 Depression Total Score: 0 10/21/19 24 10:00 AM EST documented as of this encounter Care Teams Private Equity Analyst Relationship Specialty Start Date End Date Gamal Mari MD [address] [facility] 110 [place] [address] PCP - ACO Reach 01/17/23 Gamal Mari MD [address] [facility] 110 [place] [address] PCP - General Family Medicine 01/28/23 Emmie Dela Cruz, YAA [address] [place] [address] Registered Nurse Family Medicine 08/05/23 10/21/24 documented as of this encounter
--- OUTSIDE RECORDS SUMMARY | 2025-04-05 16:42 | XMS_ITS | Encounter Summary ---
Author Organization [facility] Address [address] [place] [address] Care Team Providers Care Service Or Work Dispatcher Chief Name Role Phone Gamal Mari MD Unavailable Gamal Mari MD Primary Care Provider [phone] Emmie Dela Cruz RN Unavailable [phone] Encounter Details Date Type Department Care Team (Late st Contact Info) Description 06/08/2024 Clinisync Result Encounter [facility] External Department Unsolicited Honorio Saenz, PA 112 [facility] 110 [place] [address] Social History Tobacco Use Types Packs/Day Years [...] Recorded Patient Health Questionnaire-2 Score 0 10/21/2023 [facility] of Occupat ional Health - Occupational Stress [...] [facility] [address] [place] [address] Cristiane Duckworth MD [address] [place] [address] documented as of this encounter Procedures Procedure Name Priority Date/Time Associated Diagnosis Comments MM TOMOSYNTHESIS SCREENING BI 06/08/2024 9:07 AM EDT documented in this encounter Results * MM TOMOSYNTHESIS SCREENING BI (06/08/2024 9:07 AM EDT) Anatomical Region Laterality Modality Other 06/08/2024 9:07 AM EDT Narrative 06/08/2024 9:08 AM EDT The [place] [id number] Mammography Report Signed Patient: IVONNE DEL CASTILLO MR#: [id number] : 1955 Acct:[id number] Age/Sex: 69 / F ADM Date: 06/05/24 Loc: MAMMO Attending Dr: HONORIO SAENZ Ordering Physician: HONORIO SAENZ Results: Date of Service: 06/05/24 Follow Up: Procedure(s): MM tomosynthesis screening BI Accession Number(s): [id number] cc: HONORIO SAENZ Patient Name: IVONNE DEL CASTILLO MR#: [id number] : 1955 Exam Date: 06/05/2024 Ordering Doctor: DR HONORIO SAENZ PA RADIOLOGY REPORT PROCEDURE: MM TOMOSYNTHESIS [...] cancer at age 52. LOCATION: [facility] BREAST COMPOSITION: The breasts are extremely [...] M.D. Signed By: 06/08/24907 DD/ 6 TD/TT: Tag Marker: Procedure Note Radiology, Radiologist, MD - 06/08/2024 [place] [address] Mammography Report Signed Patient: IVONNE DEL CASTILLO AMR#: [id number] : 1955cct:[id number] Age/Sex: 69 / FADM Date: 06/05/24 Loc: MAMMO Attending Dr: HONORIO SAENZ Ordering Physician: HONORIO SAENZ MResults: Date of Service: 06/05/24Follow Up: Procedure(s): MM tomosynthesis screening BI Accession Number(s): [id number] cc: HONORIO SAENZ Patient Name: IVONNE DEL CASTILLO MR#: [id number] : 1955 Exam Date: 06/05/2024 Ordering Doctor: DR HONORIO COLON RADIOLOGY REPORT PROCEDURE: MM TOMOSYNTHESIS SCREENING [...] cancer at age 52. LOCATION: [facility] BREAST COMPOSITION: The breasts are extremely [...] Melton M.D. Signed By:06/08/24907 DD/ 6 TD/TT: Tag Marker: us Honorio COLON [facility] Final Result documented in this encounter Visit Diagnoses Not on filedocumented in this encounter Additional Health Concerns Assessment Noted Time PHQ-9 Depression Total Score: 0 10/21/19 24 10:00 AM EST documented as of this encounter Care Teams Service Or Work Dispatcher Chief Relationship Specialty Start Date End Date Gamal Mari MD [address] [place] [address] PCP - ACO Reach 01/17/23 Gamal Mari MD 112 [facility] 110 [place] [address] PCP - General Family Medicine 01/28/23 Emmie Dela Cruz, RN [address] [facility] 230 [place] [address] Registered Nurse Family Medicine 08/05/23 10/21/24 documented as of this encounter
--- OUTSIDE RECORDS SUMMARY | 2025-04-05 16:43 | XMS_ITS | Encounter Summary ---
Author Organization [facility] Address [address] [place] [address] Care Team Providers Care Pitting Machine Operator Name Role Phone Gamal Mari MD Unavailable Gamal Mari MD Primary Care Provider [phone] Emmie Dela Cruz RN Unavailable [phone] Encounter Details Date Type Department Care Team (Late st Contact Info) Description 06/29/2024 Abstract [facility] [place] [facility] 112 [facility] 110 [place] [address] Gamal Mari MD 112 [facility] 110 [place], [place] [address] Social History Tobacco Use Types Packs/Day Years [...] [facility] [address] [place] [address] Cristiane Duckworth MD [address] [place] [address] documented as of this encounter Visit Diagnoses Not on filedocumented in this encounter Additional Health Concerns Assessment Noted Time PHQ-9 Depression Total Score: 0 10/21/19 24 10:00 AM EST documented as of this encounter Care Teams Pitting Machine Operator Relationship Specialty Start Date End Date Gamal Mari MD [address] [facility] 110 [place] [address] PCP - ACO Reach 01/17/23 Gamal Mari MD [address] [facility] 110 [place] [address] PCP - General Family Medicine 01/28/23 Emmie Dela Cruz, YAA [address] [place] [address] Registered Nurse Family Medicine 08/05/23 10/21/24 documented as of this encounter
--- OUTSIDE RECORDS SUMMARY | 2025-04-05 16:43 | XMS_ITS | Encounter Summary ---
Author Organization [facility] Address [address] [place] [address] Care Team Providers Care Hand Expansion Envelope Maker Name Role Phone Gamal Mari MD Unavailable Gamal Mari MD Primary Care Provider [phone] Emmie Dela Cruz RN Unavailable Encounter Details Date Type Department Care Team (Late st Contact Info) Description 06/29/2024 Abstract [facility] [place] [facility] 112 [facility] 110 [place] [address] Gamal Mari MD 112 [facility] 110 [place], [place] [address] Social History Tobacco Use Types Packs/Day Years [...] and Family Not on file 08/05/2023 Attends Hoahaoism Services Not on file 08/05 Active Member [...] Recorded Patient Health Questionnaire-2 Score 0 10/21/2023 [facility] of Occupat ional Health - [...] [facility] [address] [place] [address] Cristiane Duckworth MD [address] [place] [address] documented as of this encounter Visit Diagnoses Not on filedocumented in this encounter Additional Health Concerns Assessment Noted Time PHQ-9 Depression Total Score: 0 10/21/19 24 10:00 AM EST documented as of this encounter Care Teams Hand Expansion Envelope Maker Relationship Specialty Start Date End Date Gamal Mari MD [address] [facility] 110 [place] [address] PCP - ACO Reach 01/17/23 Gamal Mari MD [address] [facility] 110 [place] [address] PCP - General Family Medicine 01/28/23 Emmie Dela Cruz, YAA [address] [place] [address] Registered Nurse Family Medicine 08/05/23 10/21/24 documented as of this encounter
--- OUTSIDE RECORDS SUMMARY | 2025-04-05 16:43 | XMS_ITS | Encounter Summary ---
Author Organization [facility] Address [address] [place] [address] Care Team Providers Care Church Worker Name Role Phone Gamla Mari MD Unavailable Gamal Mari MD Primary Care Provider [phone] Emmie Dela Cruz RN Unavailable [phone] Encounter Details Date Type Department Care Team [...] How often do you attend chur or scientologist services? Patient declined 02/21/2023 Do you belong to any clubs o r organizations such as jain groups, unions, fraternal or athletic groups, or [...] and heating? Not hard at all 02/21/2023 [facility] of Occupat ional Health - Occupational [...] [facility] [address] [place] [address] Cristiane Duckworth MD [address] [place] [address] documented as of this encounter Procedures Procedure [...] QTC Calculation(Bazett) : 483 ms Calculated R Rothsay : 53 degrees Calculated T Rothsay : 74 degrees SUPRAVENTRICULAR TACHYCARDIA WITH SHORT RP INTERVAL, CONSIDER AVNRT ABNORMAL ECG Confirmed by CAITIE LAND MD ([id number]) on 08/30/2023 9:42:57 AM NAME : IVONNE DEL CASTILLO PID : [id number] : 1955 Gender : Female Race : ORD : Procedure Date : Jul 31 2023 15:22:43 Edit Date : Aug 30 2023 09:43:01 Diagnosis: SUPRAVENTRICULAR TACHYCARDIA WITH SHORT RP INTERVAL, CONSIDER AVNRT ABNORMAL ECG Confirmed by CAITIE LAND MD ([id number]) on 08/30/2023 9:42:57 AM Test Reason : Location : 539 : [facility] Overread By : CAITIE LAND MD Edited By : CAITIE LAND MD Referred By : JAEL LUNSFORD Acquired by : , Procedure Note Radiology, Radiologist, MD - 08/30/2023 Ventricular Rate : 148 BPM Atrial Rate : 150 BPM QRS Duration : 112 ms Q-T Interval : 308 ms QTC Calculation(Bazett) : 483 ms Calculated R Rothsay : 53 degrees Calculated T Rothsay : 74 degrees SUPRAVENTRICULAR TACHYCARDIA WITH SHORT RP INTERVAL, CONSIDER AVNRT ABNORMAL ECG Confirmed by CAITIE LAND MD ([id number]) on 08/30/2023 9:42:57 AM NAME : IVONNE DEL CASTILLO PID : [id number] : 1955 Gender : Female Race : ORD : Procedure Date : Jul 31 2023 15:22:43 Edit Date : Aug 30 2023 09:43:01 Diagnosis: SUPRAVENTRICULAR TACHYCARDIA WITH SHORT RP INTERVAL, CONSIDERAVNRT ABNORMAL ECG Confirmed by CAITIE LAND MD ([id number]) on 08/30/2023 9:42:57 AM Test Reason : Location : 539 : [facility] Overread By : CAITIE LAND MD Edited By : CAITIE LAND MD Referred By : JAEL LUNSFORD Acquired by : , Generic External Data Provider [facility] Final Result documented in this encounter Visit Diagnoses Not on filedocumented in this encounter Care Teams Church Worker Relationship Specialty Start Date End Date Gamal Mari MD [address] [facility] 110 [place] [address] PCP - ACO Reach 01/17/23 Gamal Mari MD [address] [place] [address] PCP - General Family Medicine 01/28/23 Emmie Dela Cruz, RN [address] [facility] 230 [place] [address] Registered Nurse Family Medicine 08/05/23 10/21/24 documented as of this encounter
--- OUTSIDE RECORDS SUMMARY | 2025-04-05 16:43 | XMS_ITS | Encounter Summary ---
Author Organization [facility] Address [address] [place] [address] Care Team Providers Care Fisher Trap Name Role Phone Gamal Mari MD Unavailable Gamal Mari MD Primary Care Provider [phone] Emmie Dela Cruz RN Unavailable [phone] Encounter Details Date Type Department Care Team (Late st Contact Info) Description 06/29/2024 Abstract [facility] [place] [facility] 112 [facility] 110 [place] [address] Gamal Mari MD 112 [facility] 110 [place], [place] [id number] Social History Tobacco Use Types Packs/Day Years [...] Recorded Patient Health Questionnaire-2 Score 0 10/21/2023 [facility] - [...] [facility] [address] [place] [address] Cristiane Duckworth MD [address] [place] [address] documented as of this encounter Visit Diagnoses Not on filedocumented in this encounter Additional Health Concerns Assessment Noted Time PHQ-9 Depression Total Score: 0 10/21/19 24 10:00 AM EST documented as of this encounter Care Teams Fisher Trap Relationship Specialty Start Date End Date Gamal Mari MD [address] [facility] 110 [place] [address] PCP - ACO Reach 01/17/23 Gamal Mari MD [address] [facility] 110 [place] [address] PCP - General Family Medicine 01/28/23 Emmie Dela Cruz, YAA [address] [place] [address] Registered Nurse Family Medicine 08/05/23 10/21/24 documented as of this encounter
--- OUTSIDE RECORDS SUMMARY | 2025-04-05 16:43 | XMS_ITS | Encounter Summary ---
Author Organization [facility] Address [address] [place] [address] Care Team Providers Care Recreational Vehicle Repairer Name Role Phone Gamal Mari MD Unavailable Gamal Mari MD Primary Care Provider [phone] Emmie Dela Cruz RN Unavailable [phone] Encounter Details Date Type Department Care Team (Late st Contact Info) Description 06/12/2023 Abstract [facility] [place] [facility] 112 [facility] 110 [place] [address] Gamal Mari MD 112 [facility] 110 [place], [place] [id number] Social History Tobacco Use Types Packs/Day Years [...] week 02/21/2023 How often do you attend [facility] or yazidi services? Patient declined 02/21/2023 Do you belong to any clubs o r organizations such as baptism groups, unions, fraternal or athletic groups, or [...] and heating? Not hard at all 02/21/2023 [facility] - Occupational Stress Questionnaire Answer Date [...] EDT Office Visit [facility] [facility] [address] [place] [address] Cristiane Duckworth MD [address] [place] [address] documented as of this encounter Visit Diagnoses Not on filedocumented in this encounter Care Teams Recreational Vehicle Repairer Relationship Specialty Start Date End Date Gamal Mari MD [address] [facility] 110 [place] [address] PCP - ACO Reach 01/17/23 Gamal Mari MD [address] [place] [address] PCP - General Family Medicine 01/28/23 Emmie Dela Cruz, YAA [address] [place] [address] Registered Nurse Family Medicine 08/05/23 10/21/24 documented as of this encounter
--- OUTSIDE RECORDS SUMMARY | 2025-04-05 16:43 | XMS_ITS | Encounter Summary ---
Author Organization [facility] Address [address] [place] [address] Care Team Providers Care Conservation Or Heritage Architect Name Role Phone Gamal Mari MD Unavailable Gamal Mari MD Primary Care Provider [phone] Encounter Details Date Type Department Care Team (Late st Contact Info) Description 03/04/2025 Abstract [facility] [place] [facility] [address] [email or web address] 110 [place] [id number] Gamal Mari MD [address] [facility] 110 [place] [address] Social History Tobacco Use Types Packs/Day Years [...] Recorded Patient Health Questionnaire-2 Score 0 01/26/2025 [facility]at ional [facility] - Occupational Stress [...] [facility] [place] [facility] [address] [place] [address] Cristiane Duckworth MD [address] [place] [address] documented as of this encounter Goals Goal [...] documented as of this encounter Care Teams Conservation Or Heritage Architect Relationship Specialty Start Date End Date Gamal Mari MD [address] [place] [address] PCP - ACO Reach 01/17/23 Gamal Mari MD [address] [place] [address] PCP - General Family Medicine 01/28/23 documented as of this encounter
--- OUTSIDE RECORDS SUMMARY | 2025-04-05 16:43 | XMS_ITS | Encounter Summary ---
Author Organization [facility] Address [address] [place] [address] Care Team Providers Care Experimental Electronics Developer Name Role Phone Gamal Mari MD Unavailable Gamal Mari MD Primary Care Provider [phone] Emmie Dela Cruz RN Unavailable [phone] Encounter Details Date Type Department Care Team (Late st Contact Info) Description 09/03/2024 Abstract [facility] [place] [facility] 112 [facility] 110 [place] [address] Gamal Mari MD 112 [facility] 110 [place], [place] [id number] Social History Tobacco Use Types Packs/Day Years [...] [facility] [facility] [address] [place] [address] Cristiane Duckworth MD [address] [place] [address] documented as of this encounter Goals Goal [...] documented as of this encounter Care Teams Experimental Electronics Developer Relationship Specialty Start Date End Date Gamal Mari MD [address] [place] [address] PCP - ACO Reach 01/17/23 Gamal Mari MD [address] [place] [address] PCP - General Family Medicine 01/28/23 Emmie Dela Cruz, RN [address] [address] Registered Nurse Family Medicine 08/05/23 10/21/24 documented as of this encounter
--- OUTSIDE RECORDS SUMMARY | 2025-04-05 16:43 | XMS_ITS | Clinical Summary ---
Author Organization [facility] Address [address] [place] [address] Care Team Providers Care Drywaller Name Role Phone Gamal Mari MD Primary Care Provider [phone] Gamal Mari MD Unavailable [phone] Allergies Active Allergy Reactions Criticality Noted Date Comments Bupropion Shortness of Breath 12/22/2004 Bupropion Hcl (Smoking Deter) Shortness of Breath 11/07/2018 Medications sertraline (ZOLOFT) 25 mg tablet Take 25 mg by mouth once daily. Active calcium [...] 60 mg capsule Take 60 mg by mouth two times a day. 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 03/13/2023 Ductal carcinoma in situ (DCIS) of breast 2018 Encounters Date Type Department Care Team Description 03/22/2025 2:00 PM EDT Nurse Visit Hematology/Oncology [address] [place] [address] [place] [address] Matteo Kennedy Nurse Ervin Anemia, unspecified type (Primary Dx); 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 deficiency 03/15/2025 Orders Only Hematology/Oncology [address] [place] [address] Kim Maldonado APRN.COMMUNICATION CLERK 03/15/2025 Orders Only Hematology/Oncology [address] [place] [address] [place] [address] Jacinta Toney PA-C 02/22/2025 3:00 PM EDT Nurse Visit Hematology/Oncology [address] [place] [address] Matteo Kennedy Nurse Ervin Anemia, unspecified type (Primary Dx); 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 deficiency 02/22/2025 2:30 PM EDT Visit (SP) Office Hematology/Oncology [address] [place] [address] Kim Maldonado APRN.COMMUNICATION CLERK Chronic fatigue (Primary Dx); Anemia, unspecified type 02/22/2025 Travel 01/25/2025 2:30 PM EDT Nurse Visit Hematology/Oncology [address] [place] [address] Matteo Kennedy Nurse Ervin Anemia, unspecified type (Primary Dx); 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 deficiency 01/25/2025 Travel 01/20/2025 Orders Only Hematology/Oncology [address] [place] [address] [place] [address] Kim Maldonado APRN.COMMUNICATION CLERK 01/19/2025 Orders Only Radiation Oncology [address] [place] [address] [place] [address] Jacinta Toney PA-C 01/19/2025 Orders Only Hematology/Oncology [address] [place] [address] [place] [address] Marietta Andre APRN.COMMUNICATION CLERK from Last 3 Months Immunizations Immunization Administration [...] is lower risk 8 03/13/2023 Data from: https://www.neighborhoodatlas.[facility]/. Last address used for calculation [address] [facility] 03/13/2023 Comments No Sex and Gender Information [...] 2:00 PM EDT Nurse Visit Hematology/Oncology [address] [place] [address] Matteo Kennedy Nurse Ervin [address] [place] [address] monthly B12 05/18/2025 1:45 PM EDT Office Visit [facility] [address] [facility] [place] [address] lab 05/18/2025 2:00 PM EDT Nurse Visit Hematology/Oncology [address] [place] [address] [place] [address] Matteo Kennedy Nurse Ervin [address] [place] [address] b12 06/15/2025 2:00 PM EDT Nurse Visit Hematology/Oncology [address] [place] [address] Matteo Kennedy Nurse Ervin [address] [place] [address] monthly B12 07/13/2025 2:00 PM EST Nurse Visit Hematology/Oncology [address] [place] [address] Matteo Kennedy Nurse Ervin [address] [place] [address] monthly B12 08/09/2025 2:15 PM EST Office Visit [facility] [address] [place] [address] follow up lab and B12 08/09/2025 2:30 PM EST Visit (SP) Office Hematology/Oncology [address] [place] [address] Kim Maldonado, JAZZ.COMMUNICATION CLERK [address] [facility] [place] [address] follow up lab and B12 08/09/2025 3:00 PM EST Nurse Visit Hematology/Oncology [address] [place] [address] Matteo Kennedy Nurse Ervin [address] [place] [address] follow up lab and B12(seeing Kim uribe) Health Maintenance Due Date Last Done Comments Anxiety Screening 1971 Depression Screening 1971 Hepatitis C Screening 1971 DTaP,Tdap,Td Vaccine (1 - Tdap) 1972 CT Colonography 1998 Cologuard (FIT-DNA) 1998 Fecal Occult Blood 1998 Lipid Screening 1998 Sigmoidoscopy 1998 Pneumococcal Vaccine: 50+ (1 of 1 - PCV) 2003 Shingrix Vaccine (2 of 3) 08/23/2015 06/28/2015 Colonoscopy 11/15/2016 11/16/2015 Colorectal Cancer Screening 11/15/2016 Medicare Annual Wellness Visit 04/26/2018 Mammogram Screening 05/29/2023 05/29/2022, 05/26/2021, 10/29/2019, Additional history exists Advance Directive Discussion 08/26/2024 Influenza Vaccine (#1) 2025 Diabetes Screening 02/23/2028 02/22/2025, 0 11/30/2024, 09/07/2024, Additional history exists RSV Vaccine (1 - 1-dose 75+ series) 2028 Bone Density Screening Completed 10/24/2021, 2018 Procedures Procedure Name Priority Date/Time Associated Diagnosis Comments FOLATE SERUM Routine 02/22/2025 2:09 PM EDT 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 deficiency VITAMIN B12 BLOOD Routine 02/22/2025 2:0 9 PM EDT 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 deficiency FERRITIN BLD Routine 02/22/2025 2:09 PM EDT 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 deficiency IRON + TIBC Routine 02/22/2025 2:09 PM EDT 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 deficiency COMPREHENSIVE METABOLIC PANEL Routine 02/22/2025 2:09 PM EDT 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 deficiency CBC + DIFF Routine 02/22/2025 2:09 PM EDT 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 deficiency from Last 3 Months Results * VITAMIN B12 (02/22/2025 2:09 PM EDT) Vitamin B12 443 232 - 1,245 pg/mL 02/23/2025 1:40 AM EDT [facility] Blood BLOOD SPECIMEN / Unknown Venipuncture / Unknown 02/22/2025 2:09 PM EDT 02/22/2025 2:09 PM EDT us Maikel Resendiz MD LABORATORY Final Result [facility] [address] [place] [id number], [place] * IRON AND TIBC (02/22/2025 2:09 PM EDT) Iron 55 41 - 186 ug/dL 02/23/2025 1:30 AM EDT [facility] TIBC 342 232 - 386 ug/dL 02/23/2025 1:30 AM EDT [facility] Transferrin Saturation 16.1 15.0 - 57.0 % 02/23/2025 1:30 AM EDT [facility] Blood BLOOD SPECIMEN / Unknown Venipuncture / Unknown 02/22/2025 2:09 PM EDT 02/22/2025 2:09 PM EDT us Maikel Resendiz MD LABORATORY Final Result Performing Organization Address City/[facility]/ZIP Co de Phone Number [facility] [address] [address], [place] * FOLATE, SERUM (02/22/2025 2:09 PM EDT) Folate 16.4 >4.7 ng/mL 02/23/2025 1:40 AM EDT [facility] Blood BLOOD SPECIMEN / Unknown Venipuncture / Unknown 02/22/2025 2:09 PM EDT 02/22/2025 2:09 PM EDT us Maikel Resendiz MD LABORATORY Final Result [facility] [address] [address], [place] * FERRITIN (02/22/2025 2:09 PM EDT) Ferritin 23.9 14.7 - 205.1 ng/mL 02/23/2025 6:33 AM EDT [facility] Blood BLOOD SPECIMEN / Unknown Venipuncture / Unknown 02/22/2025 2:09 PM EDT 02/22/2025 2:09 PM EDT Maikel Resendiz MD LABORATORY Final Result [facility] [address] [facility] [address] [place] [address], [place] * (ABNORMAL) COMPREHENSIVE METABOLIC PANEL (02/22/2025 2:09 PM EDT) [facility] Protein, Total 6.9 6.3 - 8.0 g/dL 02/22/2025 2:50 PM EDT [facility] Albumin 4.0 3.9 - 4.9 g/dL 02/22/2025 2:50 PM EDT [facility] Calcium, Total 9.7 8.5 - 10.2 mg/dL 02/22/2025 2:50 PM EDT [facility] Bilirubin, Total 0.2 0.2 - 1.3 mg/dL 02/22/2025 2:50 PM EDT [facility] Alkaline Phosphatase 68 34 - 123 U/L 02/22/2025 2:50 PM EDT [facility] AST 19 13 - 35 U/L 02/22/2025 2:50 PM EDT [facility] ALT 16 7 - 38 U/L 02/22/2025 2:50 PM EDT [facility] Glucose 115(H) 74 - 99 mg/dL 02/22/2025 2:50 PM EDT [facility] Comment: The [place] Diabetes Association (ADA) provides guidance for cutoff [...] Standards of Medical Care in Diabetes 2016, [place] Diabetes Association. Diabetes Care. 2016.39(Suppl 1). BUN 15 7 - 21 mg/dL 02/22/2025 2:50 PM EDT [facility] Creatinine 0.69 0.58 - 0.96 mg/dL 02/22/2025 2:50 PM EDT [facility] Sodium 141 136 - 144 mmol/L 02/22/2025 2:50 PM EDT [facility] Potassium 4.0 3.7 - 5.1 mmol/L 02/22/2025 2:50 PM EDT [facility] Chloride 104 98 - 107 mmol/L 02/22/2025 2:50 PM EDT [facility] CO2 26 22 - 30 mmol/L 02/22/2025 2:50 PM EDT [facility] Anion Gap 11 8 - 15 mmol/L 02/22/2025 2:50 PM EDT [facility] Estimated Glomerular Filtration Rate 93 >=60 mL/min/1. 73m 02/22/2025 2:50 PM EDT [facility] [...] BLOOD SPECIMEN / Unknown Venipuncture / Unknown 02/22/2025 2:09 PM EDT 02/22/2025 2:09 PM EDT us Maikel Resendiz MD LABORATORY Final Result [facility] [address] [place] [address] * COMPLETE BLOOD COUNT AND DIFFERENTIAL (02/22/2025 2:09 PM EDT) WBC 5.30 3.70 - 11.00 k/uL 02/22/2025 2:16 PM EDT [facility] RBC 4.39 3.90 - 5.20 m/uL 02/22/2025 2:16 PM EDT [facility] Hemoglobin 12.7 11.5 - 15.5 g/dL 02/22/2025 2:16 PM EDT [facility] Hematocrit 38.6 36.0 - 46.0 % 02/22/2025 2:16 PM EDT [facility] MCV 87.9 80.0 - 100.0 fL 02/22/2025 2:16 PM EDT [facility] MCH 28.9 26.0 - 34.0 pg 02/22/2025 2:16 PM EDT [facility] MCHC 32.9 30.5 - 36.0 g/dL 02/22/2025 2:16 PM EDT [facility] RDW-CV 14.1 11.5 - 15.0 % 02/22/2025 2:16 PM EDT [facility] Platelet Count 200 150 - 400 k/uL 02/22/2025 2:16 PM EDT [facility] MPV 9.1 9.0 - 12.7 fL 02/22/2025 2:16 PM EDT [facility] Neutrophils % 58.7 % 02/22/2025 2:16 PM EDT [facility] Abs Neut 3.11 1.45 - 7.50 k/uL 02/22/2025 2:16 PM EDT [facility] Lymphocytes % 26.2 % 02/22/2025 2:16 PM EDT [facility] Abs Lymph 1.39 1.00 - 4.00 k/uL 02/22/2025 2:16 PM EDT [facility] Monocytes % 9.2 % 02/22/2025 2:16 PM EDT [facility] Abs [place] 0.49 <0.87 k/uL 02/22/2025 2:16 PM EDT [facility] Eosinophils % 4.7 % 02/22/2025 2:16 PM EDT [facility] Abs Eosin 0.25 <0.46 k/uL 02/22/2025 2:16 PM EDT [facility] Basophils % 0.8 % 02/22/2025 2:16 PM EDT [facility] Abs Baso 0.04 <0.11 k/uL 02/22/2025 2:16 PM EDT [facility] Immature Granulocytes % 0.4 % 02/22/2025 2:16 PM EDT [facility] Abs Immature Gran <0.03 <0.10 k/uL 025 2:16 PM EDT [facility] NRBC 0.0 /100 WBC 02/22/2025 2:16 PM EDT [facility] Absolute nRBC <0.01 <0.01 k/uL 02/22/2025 2:16 PM EDT [facility] Diff Type Auto 02/22/2025 2:16 PM EDT [facility] Blood BLOOD SPECIMEN / Unknown Venipuncture / Unknown 02/22/2025 2:09 PM EDT 02/22/2025 2:09 PM EDT us Maikel Resendiz MD LABORATORY Final Result [facility] [address] [place] [address] from Last 3 Months Insurance MEDICARE MMO MEDICARE SUPPLEMENT Care Teams Drywaller Relationship Specialty Start Date End Date Gamal Mari MD [address] [place] [address] PCP - General Family Medicine 11/05/18 Gamal Mari MD [address] [place] [address] Referring Family Medicine 11/05/18
--- OUTSIDE RECORDS SUMMARY | 2025-04-05 16:43 | XMS_ITS | Encounter Summary ---
Author Organization [facility] Address [address] [place] [address] Care Team Providers Care Carbide Tool Die Maker Name Role Phone Gamal Mari MD Unavailable Gamal Mari MD Primary Care Provider [phone] Emmie Dela Cruz RN Unavailable Encounter Details Date Type Department Care Team (Late st Contact Info) Description 04/02/2023 Abstract [facility] [place] [facility] 112 [facility] 110 [place] [address] Gamal Mari MD 112 [facility] 110 [place], [place] [id number] Social History Tobacco Use Types Packs/Day Years [...] often do you attend chur ch or baptist services? Patient declined 02/21/2023 Do you belong to any clubs o r organizations such as jewish groups, unions, fraLighting by LED or athletic groups, or school groups? No [...] and heating? Not hard at all 02/21/2023 [facility] Occupat ional Health - Occupational Stress [...] [facility] [facility] [address] [place] [address] Cristiane Duckworth MD [address] [place] [address] documented as of this encounter Visit Diagnoses Not on filedocumented in this encounter Care Teams Carbide Tool Die Maker Relationship Specialty Start Date End Date Gamal Mari MD [address] [facility] 110 [place] [address] PCP - ACO Reach 01/17/23 Gamal Mari MD [address] [facility] 110 [place] [address] PCP - General Family Medicine 01/28/23 Emmie Dela Cruz, AYA [address] [place] [address] Registered Nurse Family Medicine 08/05/23 10/21/24 documented as of this encounter
--- OUTSIDE RECORDS SUMMARY | 2025-04-05 16:43 | XMS_ITS | Encounter Summary ---
Author Organization [facility] Address [address] [place] [address] Care Team Providers Care Restaurant Cook Name Role Phone Gamal Mari MD Unavailable Gamal Mari MD Primary Care Provider [phone] Emmie Dela Cruz RN Unavailable [phone] Encounter Details Date Type Department Care Team (Late st Contact Info) Description 06/06/2023 Clinisync Result Encounter [facility] External Department Unsolicited Francisca Saenz, PA [address] [facility] 110 [place] [address] Social History Tobacco Use Types Packs/Day Years [...] often do you attend chur ch or adventism services? Patient declined 02/21/2023 Do you belong to any clubs o r organizations such as yazidism groups, unions, fraRecordSetter or athletic groups, or school groups? No [...] [facility] [address] [place] [address] Cristiane Duckworth MD [address] [place] [address] documented as of this encounter Procedures Procedure Name Priority Date/Time Associated Diagnosis Comments MM TOMOSYNTHESIS SCREENING BI 06/06/2023 8:25 AM EDT documented in this encounter Results * MM TOMOSYNTHESIS SCREENING BI (06/06/2023 8:25 AM EDT) Anatomical Region Laterality Modality Other 06/06/2023 8:25 AM EDT Narrative 06/06/2023 8:25 AM EDT The [address] [address] Mammography Report Signed Patient: Ginny Del Castillo MR#: [id number] : 1955 Acct:[id number] Age/Sex: 68 / F ADM Date: 06/04/23 Loc: MAMMO Attending Dr: FRANCISCA SAENZ Ordering Physician: FRANCISCA SAENZ Results: Date of Service: 06/04/23 Follow Up: Procedure(s): MM tomosynthesis screening BI Accession Number(s): [id number] cc: FRANCISCA SAENZ Patient: GINNY DEL CASTILLO Exam Date: 06/04/2023 : 1955 Gender:F Ordering : DR FRANCISCA SAENZ PA Admission #: [id number] Family : Order #: [id number] CLICK HERE TO VIEW EXAM RADIOLOGY REPORT [...] colon cancer at age 52. LOCATION: [facility] BREAST COMPOSITION: Extremely dense, which lowers the [...] M.D. Signed By: 06/06/2327 DD/ 4 TD/TT: Route Clerk: Procedure Note Radiology, Radiologist, - 06/06/2023 The [place] [id number] Mammography Report Signed Patient: Ginny Del Castillo AMR#: [id number] : 1955cct:[id number] Age/Sex: 68 / FADM Date: 06/04/23 Loc: MAMMO Attending Dr: FRANCISCA SAENZ Ordering Physician: FRANCISCA SAENZ MResults: Date of Service: 06/04/23Follow Up: Procedure(s): MM tomosynthesis screening BI Accession Number(s): [id number] cc: FRANCISCA SAENZ Patient: GINNY DEL CASTILLO Exam Date: 06/04/2023 : 1955 Gender:F Ordering : DR FRANCISCA SAENZ PA Admission #: [id number] Family : Order #: [id number] CLICK HERE TO VIEW EXAM RADIOLOGY REPORT [...] colon cancer at age 52. LOCATION: [facility] BREAST COMPOSITION: Extremely dense, which lowers the [...] By: Bill Godoy M.D. Signed By:06/06/23826 DD/ 4 TD/TT: Route Clerk: Francisc[facility] Final Result documented in this encounter Visit Diagnoses Not on filedocumented in this encounter Care Teams Restaurant Cook Relationship Specialty Start Date End Date Gamal Mari MD [address] [facility] 110 [place] [address] PCP - ACO Reach 01/17/23 Gamal Mari MD [address] [facility] 110 [place] [address] PCP - General Family Medicine 01/28/23 Emmie Dela Cruz, RN [address] [facility] [address] [place] [address] Registered Nurse Family Medicine 08/05/23 10/21/24 documented as of this encounter
--- OUTSIDE RECORDS SUMMARY | 2025-04-05 16:43 | XMS_ITS | Encounter Summary ---
Author Organization [facility] Address [address] [place] [address] Care Team Providers Care Nursing Assoc Name Role Phone Gamal Mari MD Unavailable Gamal Mari MD Primary Care Provider [phone] Emmie Dela Cruz RN Unavailable [phone] Encounter Details Date Type Department Care Team (Late st Contact Info) Description 07/28/2024 Abstract [facility] [place] [facility] 112 [facility] 110 [place] [address] Gamal Mari MD 112 [facility] 110 [place], [place] [id number] Social History Tobacco Use Types Packs/Day Years [...] [facility] [address] [place] [address] Cristiane Duckworth MD [address] [place] [address] documented as of this encounter Goals Goal [...] documented as of this encounter Care Teams Nursing Assoc Relationship Specialty Start Date End Date Gamal Mari MD [address] [place] [address] PCP - ACO Reach 01/17/23 Gamal Mari MD [address] [place] [address] PCP - General Family Medicine 01/28/23 Emmie Dela Cruz, RN [address] [address] Registered Nurse Family Medicine 08/05/23 10/21/24 documented as of this encounter
--- OUTSIDE RECORDS SUMMARY | 2025-04-05 16:43 | XMS_ITS | Encounter Summary ---
Author Organization [facility] Address [address] [place] [address] Care Team Providers Care Occupational Therapy Asst Name Role Phone Gamal Mari MD Unavailable Gamal Mari MD Primary Care Provider [phone] Emmie Dela Cruz RN Unavailable [phone] Encounter Details Date Type Department Care Team (Late st Contact Info) Description 06/23/2024 Abstract [facility] [place] [facility] 112 [facility] 110 [place] [address] Gamal Mari MD 112 [facility] 110 [place], [place] [id number] Social History Tobacco Use Types Packs/Day Years [...] Recorded Patient Health Questionnaire-2 Score 0 10/21/2023 [facility] of Occupat ional Health - [...] [facility] [address] [place] [address] Cristiane Duckworth MD [address] [place] [address] documented as of this encounter Visit Diagnoses Not on filedocumented in this encounter Additional Health Concerns Assessment Noted Time PHQ-9 Depression Total Score: 0 10/21/19 24 10:00 AM EST documented as of this encounter Care Teams Occupational Therapy Asst Relationship Specialty Start Date End Date Gamal Mari MD [address] [facility] 110 [place] [address] PCP - ACO Reach 01/17/23 Gamal Mari MD [address] [facility] 110 [place] [address] PCP - General Family Medicine 01/28/23 Emmie Dela Cruz, YAA [address] [place] [address] Registered Nurse Family Medicine 08/05/23 10/21/24 documented as of this encounter
--- OUTSIDE RECORDS SUMMARY | 2025-04-05 16:43 | XMS_ITS | Encounter Summary ---
Author Organization [facility] Address [address] [place] [address] Care Team Providers Care Teacher Assistant Name Role Phone Gamal Mari MD Unavailable Gamal Mari MD Primary Care Provider [phone] Emmie Dela Cruz RN Unavailable [phone] Encounter Details Date Type Department Care Team (Late st Contact Info) Description 04/12/[address] [place] [facility] 112 [facility] 110 [place] [address] Francisca Saenz, DARLENE 112 [facility] 110 [place], [place] [phone] Social History Tobacco Use Types Packs/Day Years [...] any clubs o r organizations such as muslim groups, unions, fraternal or athletic groups, or [...] and heating? Not hard at all 02/21/2023 [facility] - Occupational Stress Questionnaire Answer [...] [facility] [address] [place] [address] Cristiane Duckworth MD [address] [place] [address] documented as of this encounter Visit Diagnoses Not on filedocumented in this encounter Care Teams Teacher Assistant Relationship Specialty Start Date End Date Gamal Mari MD [address] [facility] 110 [place] [address] PCP - ACO Reach 01/17/23 Gamal Mari MD [address] [place] [address] PCP - General Family Medicine 01/28/23 Emmie Dela Cruz, RN [address] [facility] 230 [place] [address] Registered Nurse Family Medicine 08/05/23 10/21/24 documented as of this encounter
--- OUTSIDE RECORDS SUMMARY | 2025-04-05 16:43 | XMS_ITS | Encounter Summary ---
Author Organization [facility] Address [address] [place] [address] Care Team Providers Care Sports Equipment Racker Name Role Phone Gamal Mari MD Unavailable Gamal Mari MD Primary Care Provider [phone] Emmie Dela Cruz RN Unavailable [phone] Encounter Details Date Type Department Care Team (Late st Contact Info) Description 02/25/2023 [facility] [address] [facility] 110 [place] [address] A, Unknown Practice [address] [id number] Social History Tobacco Use Types Packs/Day Years [...] often do you attend chur ch or scientology services? Patient declined 02/21/2023 Do you belong to any clubs o r organizations such as shinto groups, unions, fraternal or athletic groups, or [...] and heating? Not hard at all 02/21/2023 [facility] of Occupat ional Health - [...] PM EDT Office Visit [facility] [address] [place] [address] Cristiane Duckworth MD [address] [place] [address] documented as of this encounter Procedures Procedure Name Priority Date/Time Associated Diagnosis Comments SCANNED LABS Routine 02/20/2023 11:35 AM EDT documented in this encounter Results * SCANNED LABS (02/20/2023 11:35 AM EDT) us Unknown Practice A LAB CHG PERFORMABLES Final Re sult documented in this encounter Visit Diagnoses Not on filedocumented in this encounter Care Teams Sports Equipment Racker Relationship Specialty Start Date End Date Gamal Mari MD [address] [place] [address] PCP - ACO Reach 01/17/23 Gamal Mari MD [address] [facility] 110 [place] [address] PCP - General Family Medicine 01/28/23 Emmie Dela Cruz, RN [address] [facility] 230 [place] [address] Registered Nurse Family Medicine 08/05/23 10/21/24 documented as of this encounter
--- OUTSIDE RECORDS SUMMARY | 2025-04-05 16:43 | XMS_ITS | Encounter Summary ---
Author Organization [facility] Address [address] [place] [address] Care Team Providers Care Filter Tender Jelly Name Role Phone Gamal Mari MD Unavailable Gamal Mari MD Primary Care Provider [phone] Emmie Dela Cruz RN Unavailable [phone] Encounter Details Date Type Department Care Team (Late st Contact Info) Description 06/06/2023 [facility] [address] [facility] 110 [place] [address] A, Unknown Practice [address] [phone] Social History Tobacco Use Types Packs/Day Years [...] week 02/21/2023 How often do you attend [facility] or mormonism services? Patient declined 02/21/2023 Do you belong to any clubs o r organizations such as pentecostalism groups, unions, fraAkampus or athletic groups, or school groups? No [...] and heating? Not hard at all 02/21/2023 [facility] Occupat ional Health - [...] [facility] [address] [place] [address] Cristiane Duckworth MD [address] [place] [address] documented as of this encounter Procedures Procedure Name Priority Date/Time Associated Diagnosis Comments MAMMOGRAM* Routine 06/04/2023 10:37 AM EDT documented in this encounter Results * MAMMOGRAM* (06/04/2023 10:37 AM EDT) Anatomical Region Laterality Modality Radiographic Ana Maria ging us Unknown Practice A IMG XR PROCEDURES Final Resul t documented in this encounter Visit Diagnoses Not on filedocumented in this encounter Care Teams Filter Tender Jelly Relationship Specialty Start Date End Date Gamal Mari MD [address] [facility] 110 [place] [address] PCP - ACO Reach 01/17/23 Gamal Mari MD 112 [facility] [address] [place] [address] PCP - General Family Medicine 01/28/23 Emmie Dela Cruz, RN [address] [facility] 230 [place] [address] Registered Nurse Family Medicine 08/05/23 10/21/24 documented as of this encounter
--- OUTSIDE RECORDS SUMMARY | 2025-04-05 16:43 | XMS_ITS | Encounter Summary ---
Author Organization [facility] Address [address] [place] [address] Care Team Providers Care Railroad Signal And Switch Operator Name Role Phone Gamal Mari MD Unavailable Gamal Mari MD Primary Care Provider [phone] Encounter Details Date Type Department Care Team (Late st Contact Info) Description 01/21/2025 Abstract [facility] [place] [facility] [address] [facility] 110 [place] [phone] Gamal Mari MD [address] [facility] 110 [place] [address] Social History Tobacco Use Types Packs/Day Years [...] Recorded Patient Health Questionnaire-2 Score 0 01/14/2025 [facility] of Occupat ional Health - [...] [facility] [address] [place] [address] Cristiane Duckworth MD [address] [place] [address] documented as of this encounter Goals Goal [...] documented as of this encounter Care Teams Railroad Signal And Switch Operator Relationship Specialty Start Date End Date Gamal Mari MD [address] [place] [address] PCP - ACO Reach 01/17/23 Gamal Mari MD [address] [place] [address] PCP - General Family Medicine 01/28/23 documented as of this encounter
--- OUTSIDE RECORDS SUMMARY | 2025-04-05 16:43 | XMS_ITS | Encounter Summary ---
Author Organization [facility] Address [address] [place] [address] Care Team Providers Care Dust Collector Operator Name Role Phone Gamal Mari MD Unavailable Gamal Mari MD Primary Care Provider [phone] Emmie Dela Cruz RN Unavailable [phone] Encounter Details Date Type Department Care Team (Late st Contact Info) Description 03/28/2023 Abstract [facility] [place] [facility] 112 [facility] 110 [place] [address] Gamal Mari MD 112 [facility] 110 [place], [place] [id number] Social History Tobacco Use Types Packs/Day Years [...] any clubs o r organizations such as congregation groups, unions, fraBellabeat or athletic groups, or school groups? No [...] and heating? Not hard at all 02/21/2023 [facility] of Occupat ional Health - Occupational Stress [...] [facility] [address] [place] [address] Cristiane Duckworth MD [address] [place] [address] documented as of this encounter Visit Diagnoses Not on filedocumented in this encounter Care Teams Dust Collector Operator Relationship Specialty Start Date End Date Gamal Mari MD [address] [facility] 110 [place] [address] PCP - ACO Reach 01/17/23 Gamal Mari MD [address] [facility] 110 [place] [address] PCP - General Family Medicine 01/28/23 Emmie Dela Cruz, YAA [address] [place] [address] Registered Nurse Family Medicine 08/05/23 10/21/24 documented as of this encounter
--- OUTSIDE RECORDS SUMMARY | 2025-04-05 16:43 | XMS_ITS | Encounter Summary ---
Author Organization [facility] Address [address] [place] [address] Care Team Providers Care Tubing Assembler Name Role Phone Gamal Mari MD Unavailable Gamal Mari MD Primary Care Provider [phone] Encounter Details Date Type Department Care Team (Late st Contact Info) Description 02/23/2025 Abstract [facility] [place] [facility] [address] [facility] 110 [place] [phone] Gamal Mari MD [address] [facility] 110 [place] [address] Social History Tobacco Use Types Packs/Day Years [...] Recorded Patient Health Questionnaire-2 Score 0 01/26/2025 [facility] of Occupat ional [...] [facility] [address] [place] [address] Cristiane Duckworth MD [address] [place] [address] documented as of this encounter Goals Goal [...] documented as of this encounter Care Teams Tubing Assembler Relationship Specialty Start Date End Date Gamal Mari MD [address] [place] [address] PCP - ACO Reach 01/17/23 Gamal Mari MD [address] [place] [address] PCP - General Family Medicine 01/28/23 documented as of this encounter
--- OUTSIDE RECORDS SUMMARY | 2025-04-05 16:43 | XMS_ITS | Clinical Summary ---
Author Organization [facility] Healthcare Address [address] [place] [address] Care Team Providers Care Group Exercise Class Instructor Name Role Phone Gamal Mari MD Unavailable Gamal Mari MD Primary Care Provider [phone] Allergies Active Allergy Reactions Criticality Noted Date Comments Barium Sulfate Nausea And Vomiting 03/07/2023 Bupropion Unknown,Other 01/28/2023 Medications denosumab (Prolia) 60 MG/ML solution prefilled syringe Inject 60 mg under the skin EVERY 6 MONTHS Active Probiotic Product (ALIGN PO) Take 1 tablet by mouth Daily 06/26/2023 Active Calcium-Phosphor us-Vitamin D (CALCIUM GUMMIES PO) Take 2 each by mouth Daily as needed 500mg gummies Active cyanocobalamin (Vitamin B-12) 1000 MCG/ML injection Active diphenoxylate-at ropine (Lomotil) 2.5-0.025 MG tablet Take 2 tablets by mouth at noon and 2 tablets in the evening. 05/06/2024 Active tiZANidine (Zanaflex) 4 MG tabletIndication s:Back pain of lumbar region with sciatica Take 1 tablet (4 mg) by mouth every 8 (eight) hours if needed for muscle spasms 30 tablet 2 12/07/2024 Active DULoxetine (Cymbalta) [address] capsuleIndicaticherri ns:Fibromyalgia Take 1 capsule (60 mg) by mouth in the morning and 1 capsule (60 mg) before bedtime. Do not crush or chew. 60 capsule 5 01/26/2025 Active sertraline (Zoloft) 50 MG tabletIndication s:Major depressive disorder, single episode, unspecified Take 1 tablet (50 mg) by mouth Daily TAKE ON TAB IN THE AM AND 0.5 TAB IN THE EVENING 100 tablet 03/02/2025 Active levothyroxine (Synthroid, Levoxyl) 50 MCG tabletIndication s:Autoimmune thyroiditis TAKE 1 TABLET (50 MCG) BY MOUTH DAILY IN THE MORNING 5 DAYS A WEEK, AND 1 AND 1/2 TABS 2 DAYS A WEEK 104 tablet 4 03/03/2025 Active Active Problems Problem Noted Date Diagnosed [...] Pulmonary nodules 01/28/2023 Sacroiliitis, not elsewhere classified 3 Steatosis of liver 01/28/2023 Thyroid antibody positive [...] 10/21/2023 Anemia 03/13/2023 10/21/2023 Abdominal cramping 03/07/2023 4 Current smoker 03/07/2023 10/21/2023 Overview (03/07/2023): Added secondary to documentation in Social History. Lower abdominal pain 03/07/2023 024 Major depressive disorder, s jose m episode, unspecified 01/28/2023 10/21/2023 Polyp of colon 01/28/2023 10/21/2023 Chronic obstructive pulmonary disease 08/12/2018 10/21/2023 Encounters Date Type Department Care Team Description 03/04/2025 [facility] [address] [facility] [address] [place] [address] Gamal Mari MD 03/03/2025 Refill [facility] [place] [facility] [address] [place] [address] Cristiane Duckworth MD Autoimmune thyroiditis 03/02/2025 [facility] [place] [facility] [address] [facility] [address] [place] [address] Francisca Rojas PA Major depressive disorder, single episode, unspecified 02/24/2025 [facility] [address] [facility] [address] [place] [address] Gamal Mari MD 02/23/2025 Abstract [facility] [address] [facility] [address] [place] [address] Gamal Mari MD 02/22/2025 Clinisync Result Encounter [facility] External Department Unsolicited Provider, Generic External Data 02/16/2025 [facility] [address] [facility] [address] [place] [address] Gamal Mari MD 02/10/2025 1:00 PM EDT Office Visit [facility] [place] [facility] [address] [place] [address] Cristiane Duckworth MD Porfirio's disease (Primary Dx); Goiter ; Vitamin D deficiency 02/10/2025 Bamboo flowsheet [facility] [place] [facility] [address] [place] [address] Cristiane Duckworth MD 01/28/2025 Orders Only [facility] [place] [facility] [address] [place] [address] Allyson Arevalo LPN Encounter for screening mammogram for malignant neoplasm of breast 01/26/2025 1:30 PM EDT Office Visit [facility] [place] [facility] [address] [facility] [address] [place] [address] Francisca Rojas, PA Muscle spasms of neck (Primary Dx); Fibromyalgia; Recurrent major depressive disorder, in partial remission 01/26/2025 Orders Only [facility] [place] [facility] [address] [place] [address] Cristiane Duckworth MD 01/26/2025 Clinisync Result Encounter [facility] External Department Unsolicited Provider, Generic External Data 01/26/2025 Bamboo flowsheet [facility] [place] [facility] [address] [facility] [address] [place] [address] Francisca Rojas PA 01/26/2025 Travel 01/21/2025 Abstract [facility] [place] [facility] [address] [facility] [address] [place] [address] Gamal Mari MD 01/21/2025 Abstract [facility] [place] [facility] [address] [facility] [address] [place] [address] Gamal Mari MD 01/21/2025 Results Follow-Up [facility] [place] [facility] [address] [place] [address] Allyson Arevalo LPN 01/21/2025 Clinisync Result Encounter [facility] External Department Unsolicited Aggie Pollock NP 01/14/2025 2:30 PM EDT Office Visit [facility] [place] [facility] [address] [place] [address] Aggie Pollock, ELVA New onset headache (Primary Dx); Neck pain on left side; Bony abnormality 01/14/2025 Bamboo flowsheet [facility] [place] [facility] [address] [place] [address] Aggie Pollock NP 01/14/2025 Travel from Last 3 Months Immunizations Immunization Administration [...] Recorded Patient Health Questionnaire-2 Score 0 01/26/2025 [facility] of Occupat ional Health - Occupational Stress [...] Sign Reading Time Taken Comments Blood Pressure 118/80 02/10/2025 11:19 AM EDT Pulse 85 02/10/2025 11:19 AM EDT Temperature 37.3 C (99.1 F) 12/10/2023 10:39 AM EDT Respiratory Rate 18 02/10/2025 11:19 AM EDT Oxygen Saturation 97% 02/10/2025 11:19 AM EDT Inhaled Oxygen Concentration - - Weight 59 kg (130 lb) 02/10/2025 11:19 AM EDT Height 152.4 cm (5') 02/10/2025 11:19 AM EDT Body Mass Index 25.39 02/10/2025 11:19 AM EDT Plan of Treatment Upcoming Encounters Date Type Department Care Team (Late st Contact Info) Description 02/09/2026 1:00 PM EDT Office Visit [facility] [place] [facility] [address] [place] [address] Cristiane Duckworth MD [address] [place] [address] Health Maintenance Due Date Last Done Comments [...] Care Plan Patient on antidepressant monitoring plan Gamal Francis MD Procedures Procedure Name Priority Date/Time Associated Diagnosis Comments [facility] FERRITIN SERPL-MCNC Routine 02/22/2025 2:09 PM EDT [facility] FOLATE SERPL-MCNC Routine 02/22/2025 2:09 PM EDT [facility] VIT B12 SERPL-MCNC Routine 2:09 PM EDT [facility] IRON+TIBC PNL SERPL Routine 02/22/2025 2:09 PM EDT [facility] COMP METAB 2000 PNL SERPL Routine 02/22/2025 2:09 PM EDT [facility] CBC W AUTO DIFF BLD Routine 02/22/2025 2:09 PM EDT TSH Routine 01/26/2025 4:19 PM EDT T4, FREE Routine 01/26/2025 4:19 PM EDT T3, FREE Routine 01/26/2025 4:19 PM EDT ALL THYROXINE (T4) FREE Routine 01/26/2025 2:38 PM EDT ALL THYROID STIM HORMONE Routine 01/26/2025 2:38 PM EDT ALL T3 FREE Routine 01/26/2025 2:[address] HEAD/BRAIN WO 01/21/2025 2:37 PM EDT MM TOMOSYNTHESIS SCREENING BI 06/08/2024 9:07 AM EDT COLONOSCOPY Routine 11/16/2015 12:00 PM EDT from Last 3 Months or Most Recently Relevant to Health Maintenance Results * [facility] VIT B12 SERPL-MCNC (02/22/2025 2:09 PM EDT) [facility] VIT B12 SERPL-MCNC 443 232 - 1,245 pg/mL [facility] 02/22/2025 2:09 PM EDT 02/22/2025 11:18 PM EDT Narrative CLINISYNC - 02/23/2025 1:40 AM EDT Specimen Type: BLOOD SPECIMEN Ordering Facility: [facility] Address: [address] [place] [address] Original Ordering Provider: JAEL LUNSFORD us Generic External Data Provider ELIASISYNC F inal Result Performing Organization Address [facility] Co de Phone Number LUIS [facility] [address] [address] * [facility] IRON+TIBC PNL SERPL (02/22/2025 2:09 PM EDT) [facility] IRON SERPL-MCNC 55 41 - 186 ug/dL C[facility] TIBC SERPL-MCNC 342 232 - 386 ug/dL CCF [facility] IRON/TIBC SERPL-SRTO 16.1 15.0 - 57.0 % [facility] 02/22/2025 2:09 PM EDT 02/22/2025 11:18 PM EDT Narrative CLINISYNC - 02/23/2025 1:30 AM EDT Specimen Type: BLOOD SPECIMEN Ordering Facility: [facility] Address: [address] [place] [address] Original Ordering Provider: JAEL LUNSFORD us Generic External Data Provider LUIS F inal Result Performing Organization Address [facility] Co de Phone Number LUIS [facility] [address] [place] [address] * [facility] FOLATE SERPL-MCNC (02/22/2025 2:09 PM EDT) [facility] FOLATE SERPL-MCNC 16.4 >4.7 ng/mL [facility] 02/22/2025 2:09 PM EDT 02/22/2025 11:18 PM EDT Narrative CLINISYNC - 02/23/2025 1:40 AM EDT Specimen Type: BLOOD SPECIMEN Ordering Facility: [facility] Address: [address] [place] [address] Original Ordering Provider: JAEL LUNSFORD us Generic External Data Provider CLINISYNC F inal Result Performing Organization Address [facility]/ZIP Co de Phone Number [facility] [facility] [address] [address] * [facility] FERRITIN SERPL-MCNC (02/22/2025 2:09 PM EDT) Pathologist [facility] FERRITIN SERPL-MCNC 23.9 14.7 - 205.1 ng/mL [facility] 02/22/2025 2:09 PM EDT 02/22/2025 11:18 PM EDT Narrative CLINISYNC - 02/23/2025 6:33 AM EDT Specimen Type: BLOOD SPECIMEN Ordering Facility: [facility] Address: [address] [place] [address] Original Ordering Provider: JAEL LUNSFORD Generic External Data Provider CLINISYNC F inal Result Performing Organization Address [facility] Co de Phone Number LUIS [facility] [address] [address] * [facility] CBC W AUTO DIFF BLD (02/22/2025 2:09 PM EDT) Pathologist [facility] WBC # BLD AUTO 5.30 3.70 - 11.00 k/uL CCF CCF RBC # BLD AUTO 4.39 3.90 - 5.20 m/uL CCF CCF HGB BLD-MCNC 12.7 11.5 - 15.5 g/dL CCF CCF HCT VFR BLD AUTO 38.6 36.0 - 46.0 % CCF C[facility] MCV RBC AUTO 87.9 80.0 - 100.0 fL CCF CCF MCH RBC QN AUTO 28.9 26.0 - 34.0 pg CCF CCF MCHC RBC AUTO-MCNC 32.9 30.5 - 36.0 g/dL CCF CCF RDW RBC-RTO 14.1 11.5 - 15.0 % CCF CCF PLATELET # BLD AUTO 200 150 - 400 k/uL CCF CCF PMV BLD AUTO 9.1 9.0 - 12.7 fL CCF [facility] NEUTROPHILS/LEUK NFR BLD AUTO 58.7 % CCF [facility]CF NEUTROPHILS # BLD AUTO 3.11 1.45 - 7.50 k/uL CCF CCF LYMPHOCYTES/LEUK NFR BLD AUTO 26.2 % CCF CCF LYMPHOCYTES # BLD AUTO 1.39 1.00 - 4.00 k/uL CCF CCF MONOCYTES/LEUK NFR BLD AUTO 9.2 % CCF CCF MONOCYTES # BLD AUTO 0.49 <0.87 k/uL CCF CCF EOSINOPHIL/LEUK NFR BLD AUTO 4.7 % CCF CCF EOSINOPHIL # BLD AUTO 0.25 <0.46 k/uL CCF CCF BASOPHILS/LEUK NFR BLD AUTO 0.8 % CCF CCF BASOPHILS # BLD AUTO 0.04 <0.11 k/uL C[facility] IMM GRANULOCYTES/LEUK NFR BLD AUTO 0.4 % [facility] IMM GRANULOCYTES # BLD AUTO <0.03 <0.10 k/uL CCF CCF NRBC/100 WBC BLD-RTO 0.0 /100 WBC CCF CCF NRBC # BLD AUTO <0.01 <0.01 k/uL CCF C[facility] DIFFERENTIAL METHOD BLD Auto [facility]CF 02/22/2025 2:09 PM EDT 02/22/2025 2:09 PM EDT Narrative ELIASISYNC - 02/22/2025 2:16 PM EDT Specimen Type: BLOOD SPECIMEN Ordering Facility: [facility] Address: [address] [place] [address] Original Ordering Provider: JAEL LUNSFORD us Generic External Data Provider CLINISYNC F inal Result CLINISYNC [facility] [address] [place] [address] * (ABNORMAL) C[facility] COMP METAB 2000 PNL SERPL (02/22/2025 2:09 PM EDT) C[facility] PROT SERPL-MCNC 6.9 6.3 - 8.0 g/dL CCF C[facility] ALBUMIN SERPL-MCNC 4.0 3.9 - 4.9 g/dL CCF CCF CALCIUM SERPL-MCNC 9.7 8.5 - 10.2 mg/dL CCF CCF BILIRUB SERPL-MCNC 0.2 0.2 - 1.3 mg/dL CCF CCF ALP SERPL-CCNC 68 34 - 123 U/L CCF CCF AST SERPL-CCNC 19 13 - 35 U/L CCF CCF ALT SERPL-CCNC 16 7 - 38 U/L CCF CCF GLUCOSE SERPL-MCNC 115(H) 74 - 99 mg/dL CCF Comment: The [place] Diabetes Association (ADA) provides guidance for cutoff [...] Standards of Medical Care in Diabetes 2016, [place] [employer] Association. Diabetes Care. 2016.39(Suppl 1). C[facility] BUN SERPL-MCNC 15 7 - 21 mg/dL CCF [facility] CREAT SERPL-MCNC 0.69 0.58 - 0.96 mg/dL CCF CCF SODIUM SERPL-SCNC 141 136 - 144 mmol/L CCF CCF POTASSIUM SERPL-SCNC 4.0 3.7 - 5.1 mmol/L CCF CCF CHLORIDE SERPL-SCNC 104 98 - 107 mmol/L CCF CCF CO2 SERPL-SCNC 26 22 - 30 mmol/L CCF CCF ANION GAP SERPL-SCNC 11 8 - 15 mmol/L CCF CCF CREATININE + EGFR PNL SERPLBLD 93 >=60 mL/min/1.7 3m??? CCF Comment:Estimated Glomerular Filtration Rate (eGFR) is calculated using the 2020 CKD-EPI creatinine equation. This equation utilizes serum creatinine, sex, and age as parameters. The creatinine assay has traceable calibration to isotope dilution- mass spectrometry. Refer to KDIGO guidelines for clinical interpretation. In patients with unstable renal function, e.g. those with acute kidney injury, the eGFR may not accurately reflect actual GFR. 02/22/2025 2:09 PM EDT 02/22/2025 2:09 PM EDT Narrative CLINISYNC - 02/22/2025 2:50 PM EDT Specimen Type: BLOOD SPECIMEN Ordering Facility: [facility] Address: [address] [place] [address] Original Ordering Provider: JAEL LUNSFORD Generic External Data Provider CLINISYNC F inal Result Performing Organization Address [facility]/ZIP Co de Phone Number CLINISYNC [facility] [address] [place] [address] * T3, free (01/26/2025 4:19 PM EDT) Blood Venous blood specimen / Unknown Cristiane Duckworth MD LAB BLOOD ORDERABLES Final Re sult * TSH (01/26/2025 4:19 PM EDT) Blood Venous blood specimen / Unknown Cristiane Duckworth MD LAB BLOOD ORDERABLES Final Re sult * T4, free (01/26/2025 4:19 PM EDT) Blood Venous blood specimen / Unknown Cristiane Duckworth MD LAB BLOOD ORDERABLES Final Re sult * ALL THYROXINE (T4) FREE (01/26/2025 2:38 PM EDT) FREE T4 1.23 0.76 - 1.46 ng/dL [facility] 01/26/2025 2:38 PM EDT 01/26/2025 2:42 PM EDT Narrative CLINISYNC - 01/26/2025 3:58 PM EDT Generic External Data Provider ELIASISYNC F inal Result CLINISYNC TB * ALL THYROID STIM HORMONE (01/26/2025 2:38 PM EDT) THYROID STIMULATING HORMONE 2.194 0.358 - 3.740 uIU/mL [facility] 01/26/2025 2:38 PM EDT 01/26/2025 2:42 PM EDT Narrative CLINISYNC - 01/26/2025 3:20 PM EDT Generic External Data Provider CLINISYNC F inal Result Performing Organization Address [facility] Co de Phone Number CLINISYNE TB * ALL T3 FREE (01/26/2025 2:38 PM EDT) FREE T3 2.66 2.18 - 3.98 pg/mL TBH 01/26/2025 2:38 PM EDT 01/26/2025 2:42 PM EDT Narrative CLINISYNC - 01/26/2025 3:20 PM EDT Generic External Data Provider CLINISYNC F inal Result Performing Organization Address [facility] de Phone Number CLINISYNE TB * CT HEAD/BRAIN WO (01/21/2025 2:37 PM EDT) Anatomical Region Laterality Modality Radiographic Ana Maria ging 01/21/2025 2:37 PM EDT Narrative 01/21/2025 2:40 [place] [address] CT Scan Report Signed Patient: GINNY CESPEDES MR#: [id number] : 1955 Acct:[id number] Age/Sex: 69 / F ADM Date: 01/21/25 Loc: CT Attending Dr: AGGIE POLLOCK Ordering Physician: AGGIE POLLOCK Date of Service: 01/21/25 Procedure(s): CT head/brain wo con Accession Number(s): [id number] cc: FRANCISCA ROJAS [address] [address] Patient Name: GINNY CESPEDES MRN: [facility]:[id number] date: 1955 Sex: F Assigned Patient Location: CT Current Patient Location: CT Accession/Order Number: [id number] Exam Date: 01/21/2025 14:33 Report Date: 01/21/2025 [...] Rincon M.D. 01/21/2025 2:37 PM Dictation Location: [place] [address] Electronically authenticated by: [id number] Y Date: 01/21/2025 14:37 Dictated By: Kike Rincon M.D. Signed By: 01/21/25 1440 DD/ 1437 TD/TT: Territory Sales Professional: Procedure Note Radiology, Radiologist, - 01/21/2025 [place] [address] CT Scan Report Signed Patient: GINNY CESPEDES AMR#: [id number] : 1955cct:[id number] Age/Sex: 69 / FADM Date: 01/21/25 Loc: CT Attending Dr: AGGIE POLLOCK Ordering Physician: AGGIE POLLOCK Date of Service: 01/21/25 Procedure(s): CT head/brain wo con Accession Number(s): [id number] cc: LILIAMANURAGFRANCISCA M [place] [address] Patient Name: GINNY CESPEDES MRN: [facility]:[id number] date: 1955 Sex: F Assigned Patient Location: CT Current Patient Location: CT Accession/Order Number: [id number] Exam Date: 01/21/2025 14:33 Report Date: 01/21/2025 [...] Rincon M.D. 01/21/2025 2:37 PM Dictation Location: [place] [address] Electronically authenticated by: [id number] Y Date: 4:37 Dictated By: Kike Rincon M.D. Signed By:01/21/25 1440 DD/ 1437 TD/TT: Territory Sales Professional: Aggie Pollock STREET LIGHT LAMP CLEANER IMG XR PROCEDURES Final Resu lt * MM TOMOSYNTHESIS SCREENING BI (06/08/2024 9:07 AM EDT) Anatomical Region Laterality Modality Other 06/08/2024 9:07 AM EDT Narrative 06/08/2024 9:08 [place] [address] Mammography Report Signed Patient: GINNY CESPEDES MR#: [id number] : 1955 Acct:[id number] Age/Sex: 69 / F ADM Date: 06/05/24 Loc: MAMMO Attending Dr: FRANCISCA ROJAS Ordering Physician: FRANCISCA ROJAS Results: Date of Service: 06/05/24 Follow Up: Procedure(s): MM tomosynthesis screening BI Accession Number(s): [id number] cc: FRANCISCA ROJAS Patient Name: GINNY CESPEDES MR#: [id number] : 1955 Exam Date: 06/05/2024 Ordering Doctor: [...] colon cancer at age 52. LOCATION: [facility] BREAST COMPOSITION: The breasts are extremely [...] M.D. Signed By: 06/08/24907 DD/ 6 TD/TT: Territory Sales Professional: Procedure Note Radiology, Radiologist, MD - 06/08/2024 [place] [address] Mammography Report Signed Patient: GINNY CESPEDES AMR#: [id number] : 1955cct:[id number] Age/Sex: 69 / FADM Date: 06/05/24 Loc: MAMMO Attending Dr: FRANCISCA ROJAS Ordering Physician: FRANCISCA ROJAS MResults: Date of Service: 06/05/24Follow Up: Procedure(s): MM tomosynthesis screening BI Accession Number(s): [id number] cc: FRANCISCA ROJAS Patient Name: GINNY CESPEDES MR#: [id number] : 1955 Exam Date: 06/05/2024 Ordering Doctor: [...] colon cancer at age 52. LOCATION: [facility] BREAST COMPOSITION: The breasts are extremely [...] Melton M.D. Signed By:06/08/24907 DD/ 6 TD/TT: Territory Sales Professional: Francisca COLON CLINIS[facility] IMAGING Final Result * Colonoscopy (11/16/2015 12:00 PM EDT) Anatomical Region Laterality Modality Endoscopy 11/16/2015 12:0 0 PM EDT Narrative 11/16/2015 12:00 PM EDT PERFORMED AT [facility] LOCATION:[id number] polyp, internal hemorrhage Procedure Note CONVERSION, GENERIC - 01/10/[address] [facility] LOCATION:[id number] polyp, internal hemorrhage Gamal Mari MD ENDOSCOPY PROCEDURE ORDERABLES F inal Result from Last 3 Months or Most Recently Relevant to Health Maintenance Additional Health Concerns Active Problems Noted Date Diagnosed Date Patient on antidepressant monitoring plan 2023 Insurance MEDICARE [employer] Care Teams Group Exercise Class Instructor Relationship Specialty Start Date End Date Gamal Mari MD [address] [facility] [address] [place], [place] [id number] PCP - ACO Reach 01/17/23 Gamal Mari MD [address] [facility] [address] [place] [address] PCP - General Family Medicine 01/28/23
--- OUTSIDE RECORDS SUMMARY | 2025-04-05 16:43 | XMS_ITS ---
Author Organization [facility] Address [address] [place], [place] [id number] Care Team Providers Care Green Material Value Added Assessor Name Role Phone Gamal Mari MD Primary Care Provider [phone] Gamal Mari MD Unavailable [phone] Active Problems Problem Noted Date Diagnosed Date [...] due to vitamin B12 deficiency Treatment Medications No medications scheduled. Past Treatment and Therapy Plans Treatment Summaries Ductal carcinoma in situ (DCIS) of breast* Treatment Summary and Survivorship Care Plan for Breast Cancer Provided by: Marietta Andre APRN.AQUATIC ECOLOGIST General Information Patient Name: Ivonne Del Castillo Patient : 1955 Health Care Providers Primary Care Provider: Dr. Gamal Mari Surgeon: Dr. Jonn Thompson Radiation Oncologist: Dr. Elzbieta Land Medical Oncologist: Dr. Mt Martinez Other Providers: Marietta Andre APRN.CNP ; DARLENE Blanchard Treatment Summary Diagnosis Cancer [...] Test How Often Oncology Team Mammogram Annually ALMOND BLANCHER or PCP Pap/pelvic exam As indicated by [...] (loss/gain) Resources you may be interested in: [employer] Melt Supervisor [facility] [phone] Melt Supervisor Industrial Sales Representative Art Therapy Women with Cancer Support Group- Meets at [address] [place] [address] [place]- From 4 PM to 5 PM- contact the marriage and family social worker for dates. Living with Cancer Support Group- Meets at [address] [place] [address] [place]- From 11:30 AM to 12:30 PM- Contact the marriage and family social worker for dates. Prepared by: Marietta Andre APRN.AQUATIC ECOLOGIST Delivered on: June 11, 2019 - This [...]
--- OUTSIDE RECORDS SUMMARY | 2025-04-05 16:43 | XMS_ITS | Encounter Summary ---
Author Organization [facility] Address [address] [place] [address] Care Team Providers Care Lockstitch Coat Joiner Name Role Phone Gamal Mari MD Unavailable Gamal Mari MD Primary Care Provider [phone] Encounter Details Date Type Department Care Team (Late st Contact Info) Description 12/08/2024 Results Follow-Up [facility] [address] [facility] [address] [place] [address] Farncisca Saenz PA [address] [facility] 110 [place] [address] Social History Tobacco Use Types Packs/Day Years [...] Recorded Patient Health Questionnaire-2 Score 0 12/07/2024 [facility] of [facility]at [...] medical appointments or from getting medications? No 06/2 04/2023 In the past 12 months, has l [...] [place] [facility] [address] [place] [address] Cristiane Duckworth MD [address] [place] [address] documented as of this encounter Goals Goal [...] documented as of this encounter Care Teams Lockstitch Coat Joiner Relationship Specialty Start Date End Date Gamal Mari MD [address] [facility] [address] [place] [address] PCP - ACO Reach 01/17/23 Gamal Mari MD [address] [facility] [address] [place] [address] PCP - General Family Medicine 01/28/23 documented as of this encounter
--- OUTSIDE RECORDS SUMMARY | 2025-04-05 16:43 | XMS_ITS | Encounter Summary ---
Author Organization [facility] Address [address] [place] [address] Care Team Providers Care Chicken Picker Name Role Phone Gamal Mari MD Unavailable Gamal Mari MD Primary Care Provider [phone] Encounter Details Date Type Department Care Team (Late st Contact Info) Description 01/28/2025 Orders Only [facility] [place] [facility] [address] [place] [address] Allyson Arevalo LPN [address] [place] [address] Encounter for screening mammogram for malignant neoplasm of breast Social History Tobacco Use Types Packs/Day Years [...] and Family Not on file 08/05/2023 Attends Buddhist Services Not on file 08/05 Active Member [...] Recorded Patient Health Questionnaire-2 Score 0 01/26/2025 [facility] of Occupat ional Health - Occupational Stress [...] [facility] [place] [facility] [address] [place] [address] Cristiane Duckworth MD [address] [place] [address] documented as of this encounter Goals Goal Patient Goal Type Associated Problems Recent Progress Patient-Stated? Author Help patient manage antidepressant medication Care Plan Patient on antidepressant monitoring plan No Gamal Mari MD documented as of this encounter Visit Diagnoses Diagnosis Encounter for screening mammogram for malignant neoplasm of breast documented in this encounter Additional Health Concerns Active Problems Noted Date Diagnosed Date Patient on antidepressant monitoring plan 2023 Assessment Noted Time PHQ-9 Depression Total Score: 0 10/21/19 24 10:00 AM EST documented as of this encounter Care Teams Chicken Picker Relationship Specialty Start Date End Date Gamal Mari MD [address] [place] [address] PCP - ACO Reach 01/17/23 Gamal Mari MD [address] [place] [address] PCP - General Family Medicine 01/28/23 documented as of this encounter
--- OUTSIDE RECORDS SUMMARY | 2025-04-05 16:43 | XMS_ITS | Encounter Summary ---
Author Organization [facility] Address [address] [place] [address] Care Team Providers Care Polisher Eyeglass Frames Name Role Phone Gamal Mari MD Primary Care Provider [phone] Gamal Mari MD Unavailable [phone] Source Comments In the event this information is protected by the Federal Confidentiality of Alcohol and Drug AbusePatient Records regulations: The Federal rules restrict any use of the information to criminally investigate or prosecute any alcohol or drug abuse patient.[facility] Encounter Details Date Type Department Care Team (Late st Contact Info) Description 03/11/2023 Abstract Hematology/Oncology [address] [place] [address] [place] [address] Maikel Resendiz MD [address] [place] [address] [place] [address] Social History Tobacco Use Types Packs/Day Years [...] is lower risk 8 03/13/2023 Data from: https://www.neighborhoodatlas.[facility].edu/. Last address used for calculation Jagdeep Hughes [...] Visit Hematology/Oncology [address] [place] [address] Matteo Kennedy Nurse Ervin [address] [place] [address] monthly B12 05/18/2025 1:45 PM EDT Office Visit [facility] [address] [place] [address] lab 05/18/2025 2:00 PM EDT Nurse Visit Hematology/Oncology [address] [place] [address] Matteo Kennedy Nurse Ervin [address] [place] [address] b12 06/15/2025 2:00 PM EDT Nurse Visit Hematology/Oncology [address] [place] [address] Matteo Kennedy Nurse Ervin [address] [place] [address] monthly B12 07/13/2025 2:00 PM EST Nurse Visit Hematology/Oncology [address] [place] [address] Matteo Kennedy Nurse Ervin [address] [place] [address] monthly B12 08/09/2025 2:15 PM EST Office Visit [facility] [address] [place] [address] follow up lab and B12 08/09/2025 2:30 PM EST Visit (SP) Office Hematology/Oncology [address] [place] [address] Kim Maldonado APRN.WATER CARTER [address] [place] [address] follow up lab and B12 08/09/2025 3:00 PM EST Nurse Visit Hematology/Oncology [address] [place] [address] Matteo Kennedy Nurse Ervin [address] [place] [address] follow up lab and B12(seeing Kim too) documented as of this encounter Visit Diagnoses Not on filedocumented in this encounter Care Teams Polisher Eyeglass Frames Relationship Specialty Start Date End Date Gamal Mari MD [address] [place] [address] PCP - General Family Medicine 11/05/18 Gamal Mari MD [address] [place] [address] Referring Family Medicine 11/05/18 documented as of this encounter
--- OUTSIDE RECORDS SUMMARY | 2025-04-05 16:43 | XMS_ITS | Encounter Summary ---
Author Organization [facility] Address [address] [place] [address] Care Team Providers Care Bar Tender Name Role Phone Gamal Mari MD Unavailable Gamal Mari MD Primary Care Provider [phone] Encounter Details Date Type Department Care Team (Late st Contact Info) Description 02/24/2025 Abstract [facility] [place] [facility] [address] [facility] 110 [place] [address] Gamal Mari MD [address] [facility] 110 [place] [address] Social History Tobacco Use Types Packs/Day Years [...] Recorded Patient Health Questionnaire-2 Score 0 01/26/2025 [facility] of Occupat ional Health - [...] [facility] [place] [facility] [address] [place] [address] Cristiane Duckworth MD [address] [place] [address] documented as of this encounter Goals Goal [...] documented as of this encounter Care Teams Bar Tender Relationship Specialty Start Date End Date Gamal Mari MD [address] [place] [address] PCP - ACO Reach 01/17/23 Gamal Mari MD [address] [place] [address] PCP - General Family Medicine 01/28/23 documented as of this encounter
--- OUTSIDE RECORDS SUMMARY | 2025-04-05 16:43 | XMS_ITS | Encounter Summary ---
Author Organization [facility] Address [address] [place] [address] Care Team Providers Care Reliability Technicians Name Role Phone Gamal Mari MD Unavailable Gamal Mari MD Primary Care Provider [phone] Emmie Dela Cruz RN Unavailable [phone] Encounter Details Date Type Department Care Team (Late st Contact Info) Description 08/01/2023 Abstract [facility] [place] [facility] 112 [facility] 110 [place] [address] Gamal Mari MD 112 [facility] 110 [place], [place] [address] Social History Tobacco Use Types Packs/Day Years [...] and heating? Not hard at all 02/21/2023 [facility] [place] of Occupat ional Health - Occupational Stress [...] [facility] [place] [facility] [address] [place] [address] Cristiane Duckworth MD [address] [place] [address] documented as of this encounter Visit Diagnoses Not on filedocumented in this encounter Care Teams Reliability Technicians Relationship Specialty Start Date End Date Gamal Mari MD [address] [facility] 110 [place] [address] PCP - ACO Reach 01/17/23 Gamal Mari MD [address] [place] [address] PCP - General Family Medicine 01/28/23 Emmie Dela Cruz, YAA [address] [place] [address] Registered Nurse Family Medicine 08/05/23 10/21/24 documented as of this encounter
--- OUTSIDE RECORDS SUMMARY | 2025-04-05 16:43 | XMS_ITS | Encounter Summary ---
Author Organization [facility] Address [address] [place] [address] Care Team Providers Care Speech Assistant Name Role Phone Gamal Mari MD Unavailable Gamal Mari MD Primary Care Provider [phone] Encounter Details Date Type Department Care Team (Late st Contact Info) Description 02/16/2025 Abstract [facility] [place] [facility] [address] [facility] 110 [place] [address] Gamal Mari MD [address] [email or web address] 110 [place] [address] Social History Tobacco Use Types Packs/Day Years [...] and Family Not on file 08/05/2023 Attends Hindu Services Not on file 08/05 Active Member [...] Recorded Patient Health Questionnaire-2 Score 0 01/26/2025 [facility] of Occupat ional Health [...] [facility] [place] [facility] [address] [place] [address] Cristiane Duckworth MD [address] [place] [address] documented as of this encounter Goals Goal [...] documented as of this encounter Care Teams Speech Assistant Relationship Specialty Start Date End Date Gamal Mari MD [address] [place] [address] PCP - ACO Reach 01/17/23 Gamal Mari MD [address] [place] [address] PCP - General Family Medicine 01/28/23 documented as of this encounter
--- OUTSIDE RECORDS SUMMARY | 2025-04-05 16:43 | XMS_ITS | Encounter Summary ---
Author Organization [facility] Address [address] [place] [address] Care Team Providers Care Comic Illustrator Name Role Phone Gamal Mari MD Unavailable Gamal Mari MD Primary Care Provider [phone] Emmie Dela Cruz RN Unavailable [phone] Encounter Details Date Type Department Care Team (Late st Contact Info) Description 08/01/2023 Abstract [facility] [place] [facility] 112 [facility] 110 [place] [address] Gamal Mari MD [address] [facility] 110 [place], [place] [address] Social History Tobacco Use Types Packs/Day Years [...] and Family Not on file 08/05/2023 Attends [employer] Not on file 08/05 Active Member [...] and heating? Not hard at all 02/21/2023 [facility] [place] of Occupat ional Health - [...] [facility] [place] [facility] [address] [place] [address] Cristiane Duckworth MD [address] [place] [address] documented as of this encounter Visit Diagnoses Not on filedocumented in this encounter Care Teams Comic Illustrator Relationship Specialty Start Date End Date Gamal Mari MD [address] [facility] 110 [place] [address] PCP - ACO Reach 01/17/23 Gamal Mari MD [address] [place] [address] PCP - General Family Medicine 01/28/23 Emmie Dela Cruz, YAA [address] [place] [address] Registered Nurse Family Medicine 08/05/23 10/21/24 documented as of this encounter
--- OUTSIDE RECORDS SUMMARY | 2025-04-05 16:43 | XMS_ITS | Encounter Summary ---
Author Organization [facility] Address [address] [place] [address] Care Team Providers Care Environmental Health And Safety Intern Name Role Phone Gmaal Mari MD Unavailable Gamal Mari MD Primary Care Provider [phone] Encounter Details Date Type Department Care Team (Late st Contact Info) Description 01/26/2025 Orders Only [facility] [place] [facility] [address] [place] [address] Cristiane Duckworth MD [address] [place] [address] Social History Tobacco Use Types Packs/Day Years [...] Recorded Patient Health Questionnaire-2 Score 0 01/26/2025 [facility] of Occupat ional Health - Occupational [...] [facility] [place] [facility] [address] [place] [address] Cristiane Duckworth MD [address] [place] [address] documented as of this encounter Goals Goal Patient Goal Type Associated Problems Recent Progress Patient-Stated? Author Help patient manage antidepressant medication Care Plan Patient on antidepressant monitoring plan No Gamal Mari MD documented as of this encounter Procedures Procedure Name Priority Date/Time Associated Diagnosis Comments T3, FREE Routine 01/26/2025 4:19 PM EDT TSH Routine 01/26/2025 4:19 PM EDT T4, FREE Routine 01/26/2025 4:19 PM EDT documented in this encounter Results * TSH (01/26/2025 4:19 PM EDT) Blood Venous blood specimen / Unknown us Cristiane Duckworth MD LAB BLOOD ORDERABLES Final Re sult * T4, free (01/26/2025 4:19 PM EDT) Blood Venous blood specimen / Unknown us Cristiane Duckworth MD LAB BLOOD ORDERABLES Final Re sult * T3, free (01/26/2025 4:19 PM EDT) Blood Venous blood specimen / Unknown Result [facility] us Cristiane Duckworth MD LAB BLOOD ORDERABLES Final Re sult documented in this encounter Visit Diagnoses Not on filedocumented in this encounter Additional Health Concerns Active Problems Noted Date Diagnosed Date Patient on antidepressant monitoring plan 2023 Assessment Noted Time PHQ-9 Depression Total Score: 0 10/21/19 24 10:00 AM EST documented as of this encounter Care Teams Environmental Health And Safety Intern Relationship Specialty Start Date End Date Gamal Mari MD [address] [place] [address] PCP - ACO Reach 01/17/23 Gamal Mari MD [address] [place] [address] PCP - General Family Medicine 01/28/23 documented as of this encounter
--- OUTSIDE RECORDS SUMMARY | 2025-04-05 16:44 | XMS_ITS | Encounter Summary ---
Author Organization [facility] Address [address] [facility] [place] [address] Care Team Providers Care Marble Installer Name Role Phone Gamal Mari MD Unavailable Gamal Mari MD Primary Care Provider [phone] Emmie Dela Cruz RN Unavailable Encounter Details Date Type Department Care Team (Late st Contact Info) Description 02/14/2023 Orders [facility] [place] [facility] [address] [place] [address] Rosa Shearer MD [address] [place] [address] Social History Tobacco Use Types [...] PM EDT Office [facility] [address] [place] [address] Cristiane Duckworth MD [address] [place] [address] documented as of this encounter Procedures Procedure Name Priority Date/Time Associated Diagnosis Comments SCANNED LABS Routine 02/13/2023 8:14 AM EDT documented in this encounter Results * SCANNED LABS (02/13/2023 8:14 AM EDT) us Rosa Shearer MD LAB CHG PERFORMABLES Edited Re sult - Final documented in this encounter Visit Diagnoses Not on filedocumented in this encounter Care Teams Marble Installer Relationship Specialty Start Date End Date Gamal Mari MD [address] [facility] 110 [place] [address] PCP - ACO Reach 01/17/23 Gamal Mari MD [address] [facility] 110 [place] [address] PCP - General Family Medicine 01/28/23 Emmie Dela Cruz, RN [address] [facility] 230 [place] [address] Registered Nurse Family Medicine 08/05/23 10/21/24 documented as of this encounter
--- OUTSIDE RECORDS SUMMARY | 2025-04-05 16:44 | XMS_ITS | Encounter Summary ---
Author Organization [facility] Address [address] [place] [address] Care Team Providers Care Irrigation System Operator Name Role Phone Gamal Mari MD Unavailable Gamal Mari MD Primary Care Provider [phone] Emmie Dela Cruz RN Unavailable [phone] Encounter Details Date Type Department Care Team (Late st Contact Info) Description 10/23/2023 Abstract [facility] [place] [facility] 112 [facility] 110 [place] [address] Gamal Mari MD 112 [facility] 110 [place], [place] [address] Social History Tobacco Use Types Packs/Day Years [...] [facility] [place] [facility] [address] [place] [address] Cristiane Duckworth MD [address] [place] [address] documented as of this encounter Visit Diagnoses Not on filedocumented in this encounter Additional Health Concerns Assessment Noted Time PHQ-9 Depression Total Score: 0 10/21/19 24 10:00 AM EST documented as of this encounter Care Teams Irrigation System Operator Relationship Specialty Start Date End Date Gamal Mari MD [address] [facility] 110 [place] [address] PCP - ACO Reach 01/17/23 Gamal Mari MD [address] [facility] 110 [place] [address] PCP - General Family Medicine 01/28/23 Emmie Dela Cruz, YAA [address] [place] [address] Registered Nurse Family Medicine 08/05/23 10/21/24 documented as of this encounter
--- OUTSIDE RECORDS SUMMARY | 2025-04-05 16:44 | XMS_ITS | Clinical Summary ---
Author Organization [facility] Address [address] [place] [address] Phone Care Team Providers Care Director Of Veterans Affairs Name Role Phone Unavailable Primary Care Provider [...]
--- OUTSIDE RECORDS SUMMARY | 2025-04-05 16:44 | XMS_ITS | Encounter Summary ---
Author Organization [facility] Address [address] [place] [address] Care Team Providers Care Centrifugal Casting Machine Operator Name Role Phone Gamal Mari MD Unavailable Gamal Mari MD Primary Care Provider [phone] Emmie Dela Cruz RN Unavailable [phone] Encounter Details Date Type Department Care Team (Late st Contact Info) Description 12/02/2023 Clinisync Result Encounter [facility] External Department Unsolicited Francisca Saenz, PA 112 [facility] 110 [place] [address] Social History Tobacco Use Types Packs/Day Years [...] Recorded Patient Health Questionnaire-2 Score 0 10/21/2023 [facility] [place] of Occupat ional Health - Occupational Stress [...] [facility] [place] [facility] [address] [place] [address] Cristiane Duckworth MD [address] [place] [address] documented as of this encounter Procedures Procedure Name Priority Date/Time Associated Diagnosis Comments XR DEXA AXIAL SKELETON 12/02/2023 10:50 AM EDT documented in this encounter Results * XR DEXA AXIAL SKELETON (12/02/2023 10:50 AM EDT) Anatomical Region Laterality Modality Other 12/02/2023 10:5 0 AM EDT Narrative 12/02/2023 10:53 AM EDT [facility] [place] [id number] XRay Report Signed Patient: GINNY DEL CASTILLO MR#: [id number] : 1955 Acct:[id number] Age/Sex: 68 / F ADM Date: 12/02/23 Loc: CT Attending Dr: FRANCISCA SAENZ Ordering Physician: FRANCISCA SANEZ Date of Service: 12/02/23 Procedure(s): XR DEXA axial skeleton Accession Number(s): [id number] cc: FRANCISCA SAENZ [facility] [place] [id number] Patient Name: GINNY DEL CASTILLO MRN: [id number] date: 1955 Sex: F Assigned Patient Location: CT Current Patient Location: CT Accession/Order Number: [id number] Exam Date: 12/02/2023 10:10 Report Date: 12/02/2023 [...] Signed By: 12/02/23 1053 DD/ 1050 TD/TT: Sdc Teacher: Procedure Note Radiology, Radiologist, MD - 12/02/2023 [place] [address] XRay Report Signed Patient: GINNY DEL CASTILLO AMR#: [id number] : 1955cct:[id number] Age/Sex: 68 / FADM Date: 12/02/23 Loc: CT Attending Dr: FRANCISCA SAENZ Ordering Physician: FRANCISCA SAENZ Date of Service: 12/02/23 Procedure(s): XR DEXA axial skeleton Accession Number(s): [id number] cc: FRANCISCA SAENZ [place] [address] Patient Name: GINNY DEL CASTILLO MRN: [id number] date: 1955 Sex: F Assigned Patient Location: CT Current Patient Location: CT Accession/Order Number: [id number] Exam Date: 12/02/2023 10:10 Report Date: 12/02/2023 [...] M.D. Signed By:12/02/23 1053 DD/ 1050 TD/TT: Sdc Teacher: us Francisca Saenz PA [facility] Final Result documented in this encounter Visit Diagnoses Not on filedocumented in this encounter Additional Health Concerns Assessment Noted Time PHQ-9 Depression Total Score: 0 10/21/19 24 10:00 AM EST documented as of this encounter Care Teams Centrifugal Casting Machine Operator Relationship Specialty Start Date End Date Gamal Mari MD 112 [place] [address] PCP - ACO Reach 01/17/23 Gamal Mari MD [address] [facility] [address] [place] [address] PCP - General Family Medicine 01/28/23 Emmie Dela Cruz, RN [address] [facility] 230 [place] [address] Registered Nurse Family Medicine 08/05/23 10/21/24 documented as of this encounter
--- OUTSIDE RECORDS SUMMARY | 2025-04-05 16:44 | XMS_ITS | Encounter Summary ---
Author Organization [facility] Address [address] [place] [address] Care Team Providers Care Justice Of The Peace Name Role Phone Gamal Mari MD Unavailable Gamal Mari MD Primary Care Provider [phone] Emmie Dela Cruz RN Unavailable [phone] Encounter Details Date Type Department Care Team (Late st Contact Info) Description 09/09/2024 Abstract [facility] [place] [facility] 112 [facility] 110 [place] [address] Gamal Mari MD 112 [facility] 110 [place], [place] [address] Social History Tobacco Use Types Packs/Day Years [...] Recorded Patient Health Questionnaire-2 Score 0 10/21/2023 [facility] of Occupat ional Health [...] [facility] [place] [facility] [address] [place] [address] Cristiane Duckworth MD [address] [place] [address] documented as of this encounter Goals Goal [...] documented as of this encounter Care Teams Justice Of The Peace Relationship Specialty Start Date End Date Gamal Mari MD [address] [place] [address] PCP - ACO Reach 01/17/23 Gamal Mari MD [address] [place] [address] PCP - General Family Medicine 01/28/23 Emmie Dela Cruz, RN [address] [address] Registered Nurse Family Medicine 08/05/23 10/21/24 documented as of this encounter
--- OUTSIDE RECORDS SUMMARY | 2025-04-05 16:44 | XMS_ITS | Encounter Summary ---
Author Organization [facility] Address [address] [place] [address] Care Team Providers Care Social Work Instructor Name Role Phone Gamal Mari MD Unavailable Gamal Mari MD Primary Care Provider [phone] Emmei Dela Cruz RN Unavailable [phone] Encounter Details Date Type Department Care Team (Late st Contact Info) Description 09/09/2023 Abstract [facility] [place] [facility] [address] [facility] 110 [place] [address] Gamal Mari MD 112 [facility] 110 [place], [place] [address] Social History Tobacco Use Types Packs/Day Years [...] and heating? Not hard at all 02/21/2023 [facility] [place] of Occupat ional Health - Occupational Stress [...] Office Visit [facility] [place] [facility] [address] [place] [address] Cristiane Duckwotrh MD [address] [place] [address] documented as of this encounter Visit Diagnoses Not on filedocumented in this encounter Care Teams Social Work Instructor Relationship Specialty Start Date End Date Gamal Mari MD [address] [place] [address] PCP - ACO Reach 01/17/23 Gamal Mari MD [address] [place] [address] PCP - General Family Medicine 01/28/23 Emmie Dela Cruz, YAA [address] [place] [address] Registered Nurse Family Medicine 08/05/23 10/21/24 documented as of this encounter
--- OUTSIDE RECORDS SUMMARY | 2025-04-05 16:44 | XMS_ITS | Encounter Summary ---
Author Organization [facility] Address [address] [place] [address] Care Team Providers Care Rail Car Unloader Name Role Phone Gamal Mari MD Unavailable Gamal Mari MD Primary Care Provider [phone] Emmie Dela Cruz RN Unavailable [phone] Encounter Details Date Type Department Care Team (Late st Contact Info) Description 10/19/2024 Abstract [facility] 112 [facility] 110 [place] [address] Gamal Mari MD 112 [facility] 110 [place], [place] [address] Social History Tobacco Use Types Packs/Day Years [...] Health Questionnaire-2 Score 0 10/21/2023 [facility] of Occupat ional Health - Occupational Stress [...] [facility] [address] [place] [address] Cristiane Duckworth MD [address] [place] [address] documented as of this encounter Goals Goal [...] documented as of this encounter Care Teams Rail Car Unloader Relationship Specialty Start Date End Date Gamal Mari MD [address] [place] [address] PCP - ACO Reach 01/17/23 Gamal Mari MD [address] [place] [address] PCP - General Family Medicine 01/28/23 Emmie Dela Cruz, RN [address] [address] Registered Nurse Family Medicine 08/05/23 10/21/24 documented as of this encounter
--- OUTSIDE RECORDS SUMMARY | 2025-04-05 16:44 | XMS_ITS | Encounter Summary ---
Author Organization [facility] Address [address] [place] [address] Care Team Providers Care Automotive Engineering Teacher Name Role Phone Gamal Mari MD Unavailable Gamal Mari MD Primary Care Provider [phone] Emmie Dela Cruz RN Unavailable Encounter Details Date Type Department Care Team (Late st Contact Info) Description 12/10/2023 Abstract [facility] 112 [facility] 110 [place] [address] Gamal Mari MD 112 [facility] 110 [place], [place] [address] Social History Tobacco Use Types Packs/Day Years [...] [facility] [address] [place] [address] Cristiane Duckworth MD [address] [place] [address] documented as of this encounter Visit Diagnoses Not on filedocumented in this encounter Additional Health Concerns Assessment Noted Time PHQ-9 Depression Total Score: 0 10/21/19 24 10:00 AM EST documented as of this encounter Care Teams Automotive Engineering Teacher Relationship Specialty Start Date End Date Gamal Mari MD [address] [facility] 110 [place] [address] PCP - ACO Reach 01/17/23 Gamal Mari MD [address] [facility] 110 [place] [address] PCP - General Family Medicine 01/28/23 Emmie Dela Cruz, YAA [address] [place] [address] Registered Nurse Family Medicine 08/05/23 10/21/24 documented as of this encounter
--- OUTSIDE RECORDS SUMMARY | 2025-04-05 16:44 | XMS_ITS | Encounter Summary ---
Author Organization [facility] Address [address] [place] [address] Care Team Providers Care Globe Tester Name Role Phone Gamal Mari MD Unavailable Gamal Mari MD Primary Care Provider [phone] Emmie Dela Cruz RN Unavailable [phone] Encounter Details Date Type Department Care Team (Late st Contact Info) Description 12/02/2023 Clinisync Result Encounter N[facility] External Department Unsolicited Francisca Saenz, PA 112 [facility] 110 [place] [address] Social History Tobacco Use Types Packs/Day Years [...] Recorded Patient Health Questionnaire-2 Score 0 10/21/2023 [facility] [place] of Occupat ional Health - Occupational Stress [...] [facility] [address] [place] [address] Cristiane Duckworth MD [address] [place] [address] documented as of this encounter Procedures Procedure Name Priority Date/Time Associated Diagnosis Comments CT LUNG SCREENING LOW DOSE 12/02/2023 10:56 AM EDT documented in this encounter Results * CT LUNG SCREENING LOW DOSE (12/02/2023 10:56 AM EDT) Anatomical Region Laterality Modality Other 12/02/2023 10:5 6 AM EDT Narrative 12/02/2023 10:58 [place] [address] CT Scan Report Signed Patient: GINNY DEL CASTILLO MR#: [id number] : 1955 Acct:[id number] Age/Sex: 68 / F ADM Date: 12/02/23 Loc: CT Attending Dr: FRANCISCA SAENZ Ordering Physician: FRANCISCA SAENZ Date of Service: 12/02/23 Procedure(s): CT lung screening low-dose Accession Number(s): [id number] cc: FRANCISCA SAENZ [address] [address] Patient Name: GINNY DEL CASTILLO MRN: [id number] date: 1955 Sex: F Assigned Patient Location: CT Current Patient Location: CT Accession/Order Number: [id number] Exam Date: 12/02/2023 10:06 Report Date: 12/02/2023 [...] Signed By: 12/02/23 1058 DD/ 1056 TD/TT: Casey Saw Operator: Procedure Note Radiology, Radiologist, - 12/02/[address] [address] [address] Scan Report Signed Patient: GINNY DEL CASTILLO AMR#: [id number] : 1955cct:[id number] Age/Sex: 68 / FADM Date: 12/02/23 Loc: CT Attending Dr: FRANCISCA SAENZ Ordering Physician: FRANCISCA SAENZ Date of Service: 12/02/23 Procedure(s): CT lung screening low-dose Accession Number(s): [id number] cc: FRANCISCA SAENZ [place] [address] Patient Name: GINNY DEL CASTILLO MRN: [facility]:[id number] date: 1955 Sex: F Assigned Patient Location: CT Current Patient Location: CT Accession/Order Number: [id number] Exam Date: 12/02/2023 10:06 Report Date: 12/02/2023 [...] M.D. Signed By:12/02/23 1058 DD/ 1056 TD/TT: Casey Saw Operator: us Francisca [facility] Final Result documented in this encounter Visit Diagnoses Not on filedocumented in this encounter Additional Health Concerns Assessment Noted Time PHQ-9 Depression Total Score: 0 10/21/19 24 10:00 AM EST documented as of this encounter Care Teams Globe Tester Relationship Specialty Start Date End Date Gamal Mari MD 112 [facility] 110 [place] [address] PCP - ACO Reach 01/17/23 Gamal Mari MD 112 [facility] 110 [place] [address] PCP - General Family Medicine 01/28/23 Emmie Dela Cruz, YAA [address] [facility] 230 [place] [address] Registered Nurse Family Medicine 08/05/23 10/21/24 documented as of this encounter
--- OUTSIDE RECORDS SUMMARY | 2025-04-05 16:44 | XMS_ITS | Patient Health Record ---
Author Organization [facility] Address [address] [place] [address] Care Team Providers Care Member Of Technical Staff Name Role Phone [facility], [facility] [...] Vaccine Route Administration Date Status Comme nts Pneumonia: Prevnar 20 Unknown 09/27/2023 Contraindicati ons z2023 Fluzone, 6mo & older, Quad PFS [...] Status W/U Status Risk Notes Problem Hypothyroid (29415423) Hypothyroid (E03.9) Active confirmed Problem Mixed anxiety and depressive disorder (461765051) Anxiety and depression (F41.9) Active confirmed Problem Breast cancer (350082378) Breast cancer (C50.919) Active confirmed Problem Diverticulitis (55683847) Diverticulitis (562.11) Active confirmed Problem Lumbago (119656274) Lumbago (M54.50) Active confirmed Problem Vitamin B12 deficiency (non anemic) (26493388) Vitamin B 12 deficiency (E53.8) Active confirmed Problem Osteoporosis (71354390) Osteoporosis (M81.0) Active confirmed Problem Tobacco user (729507004) Cigarette nicotine dependence without complication (F17.210) Active confirmed Plan Of Treatment No Information Insurance Providers Payer Name Payer Address Payer Phone Subscriber Number Group Number Insured Name Patient Relationship to Insured Coverage Start Date Coverage End Date MEDICARE [place] [address] [address] [place] [address] [id number] Ivonne Del Castillo Self - patient is the insured [employer] [place] [address] [address] [place] [address] [id number] Ivonne Del Castillo Self - patient is [...]
--- OUTSIDE RECORDS SUMMARY | 2025-04-05 16:44 | XMS_ITS | Encounter Summary ---
Author Organization [facility] Address [address] [place] [address] Care Team Providers Care Caustic Plant Worker Name Role Phone Gamal Mari MD Unavailable Gamal Mari MD Primary Care Provider [phone] Emmie Dela Cruz RN Unavailable [phone] Encounter Details Date Type Department Care Team (Late st Contact Info) Description 10/23/2023 Abstract [facility] [place] [facility] 112 [facility] 110 [place] [address] Gamal Mari MD 112 [facility] 110 [place], [place] [address] Social History Tobacco Use Types Packs/Day Years [...] Recorded Patient Health Questionnaire-2 Score 0 10/21/2023 [facility] of Occupat ional Health - Occupational Stress [...] [facility] [address] [place] [address] Cristiane Duckworth MD [address] [place] [address] documented as of this encounter Visit Diagnoses Not on filedocumented in this encounter Additional Health Concerns Assessment Noted Time PHQ-9 Depression Total Score: 0 10/21/19 24 10:00 AM EST documented as of this encounter Care Teams Caustic Plant Worker Relationship Specialty Start Date End Date Gamal Mari MD [address] [email or web address] 110 [place] [address] PCP - ACO Reach 01/17/23 Gamal Mari MD [address] [email or web address] 110 [place] [address] PCP - General Family Medicine 01/28/23 Emmie Dela Cruz, YAA [address] [place] [address] Registered Nurse Family Medicine 08/05/23 10/21/24 documented as of this encounter
--- OUTSIDE RECORDS SUMMARY | 2025-04-05 16:44 | XMS_ITS | Encounter Summary ---
Author Organization [facility] Address [address] [place] [address] Care Team Providers Care Emissions Technician Name Role Phone Gamal Mari MD Unavailable Gamal Mari MD Primary Care Provider [phone] Emmie Dela Cruz RN Unavailable [phone] Encounter Details Date Type Department Care Team (Late st Contact Info) Description 12/09/2023 Orders Only [facility] [address] [facility] 110 [place] [address] Unallocated, Noms Provider, [address] [place], [place] [address] Social History Tobacco Use Types Packs/Day Years [...] Health Questionnaire-2 Score 0 10/21/2023 [facility] of Occupat ional [...] [facility] [address] [place] [address] Cristiane Duckworth MD [address] [place] [address] documented as of this encounter Procedures Procedure [...] documented as of this encounter Care Teams Emissions Technician Relationship Specialty Start Date End Date Gamal Mari MD [address] [place] [address] PCP - ACO Reach 01/17/23 Gamal Mari MD 112 [facility] 110 [place] [address] PCP - General Family Medicine 01/28/23 Emmie Dela Cruz, RN [address] [place] [address] Registered Nurse Family Medicine 08/05/23 10/21/24 documented as of this encounter
--- OUTSIDE RECORDS SUMMARY | 2025-04-05 16:44 | XMS_ITS | Encounter Summary ---
Author Organization [facility] Address [address] [place] [address] Care Team Providers Care Printing Grey Cloth Tender Name Role Phone Gamal Mari MD Primary Care Provider [phone] Gamal Mari MD Unavailable [phone] Source Comments In the event this information is protected by the Federal Confidentiality of Alcohol and Drug AbusePatient Records regulations: The Federal rules restrict any use of the information to criminally investigate or prosecute any alcohol or drug abuse patient.[facility] Encounter Details Date Type Department [...] 2:00 PM EDT Nurse Visit Hematology/Oncology [address] [place] [address] Matteo Kennedy Nurse Ervin [address] [facility] [address] monthly B12 05/18/2025 1:45 PM EDT Office Visit [facility] [address] [place] [address] lab 05/18/2025 2:00 PM EDT Nurse Visit Hematology/Oncology [address] [place] [address] Matteo Kennedy Nurse Ervin [address] [place] [address] b12 06/15/2025 2:00 PM EDT Nurse Visit Hematology/Oncology [address] [place] [address] Matteo Kennedy Nurse Ervin [address] [place] [address] monthly B12 07/13/2025 2:00 PM EST Nurse Visit Hematology/Oncology [address] [place] [address] Matteo Kennedy Nurse Ervin [address] [place] [address] monthly B12 08/09/2025 2:15 PM EST Office Visit [facility] [address] [place] [address] follow up lab and B12 08/09/2025 2:30 PM EST Visit (SP) Office Hematology/Oncology [address] [place] [address] Kim Maldonado APRN.GLASS CHECKER [address] [place] [address] follow up lab and B12 08/09/2025 3:00 PM EST Nurse Visit Hematology/Oncology [address] [place] [address] Matteo Kennedy Nurse Ervin [address] [place] [address] follow up lab and B12(seeing Kim too) documented as of this encounter Visit Diagnoses Not on filedocumented in this encounter Care Teams Printing Grey Cloth Tender Relationship Specialty Start Date End Date Gamal Mari MD [address] [place] 110 [place] [address] PCP - General Family Medicine 11/05/18 Gamal Mari MD 112 [facility] 110 [place] [address] Referring Family Medicine 11/05/18 documented as of this encounter
--- OUTSIDE RECORDS SUMMARY | 2025-04-05 16:44 | XMS_ITS | Encounter Summary ---
Author Organization [facility] Address [address] [place] [address] Care Team Providers Care Construction Technology Instructor Name Role Phone Gamal Mari MD Unavailable Gamal Mari MD Primary Care Provider [phone] Emmie Dela Cruz RN Unavailable [phone] Encounter Details Date Type Department Care Team (Late st Contact Info) Description 09/12/2023 Abstract [facility] [place] [facility] 112 [facility] 110 [place] [address] Gamal Mari MD 112 [facility] 110 [place], [place] [address] Social History Tobacco Use Types Packs/Day Years [...] and heating? Not hard at all 02/21/2023 [facility] of Occupat ional Health - Occupational Stress [...] EDT Office Visit [facility] [address] [place] [address] Cristiane Duckworth MD [address] [place] [address] documented as of this encounter Visit Diagnoses Not on filedocumented in this encounter Care Teams Construction Technology Instructor Relationship Specialty Start Date End Date Gamal Mari MD [address] [place] [address] PCP - ACO Reach 01/17/23 Gamal Mari MD [address] [place] [address] PCP - General Family Medicine 01/28/23 Emmie Dela Cruz, YAA [address] [place] [address] Registered Nurse Family Medicine 08/05/23 10/21/24 documented as of this encounter
--- OUTSIDE RECORDS SUMMARY | 2025-04-05 16:44 | XMS_ITS | Encounter Summary ---
Author Organization [facility] Address [address] [place] [address] Care Team Providers Care Hand Or Machine Paster Name Role Phone Gamal Mari MD Unavailable Gamal Mari MD Primary Care Provider [phone] Emmie Dela Cruz RN Unavailable [phone] Encounter Details Date Type Department Care Team (Late st Contact Info) Description 08/23/2023 [facility] [address] [facility] 110 [place] [address] A, Unknown Practice [address] [id number] Social History Tobacco Use Types Packs/Day Years [...] and Family Not on file 08/05/2023 Attends [employer] Not on file 08/05 Active Member [...] and heating? Not hard at all 02/21/2023 [facility] of Occupat ional Health - [...] Office Visit [facility] [address] [place] [address] Cristiane Duckworth MD [address] [place] [address] documented as of this encounter Procedures Procedure Name Priority Date/Time Associated Diagnosis Comments SCANNED LABS Routine 08/22/2023 8:21 AM EST documented in this encounter Results * SCANNED LABS (08/22/2023 8:21 AM EST) us Unknown Practice A LAB CHG PERFORMABLES Final Re sult documented in this encounter Visit Diagnoses Not on filedocumented in this encounter Care Teams Hand Or Machine Paster Relationship Specialty Start Date End Date Gamal Mari MD [address] [place] [address] PCP - ACO Reach 01/17/23 Gamal Mari MD [address] [place] [address] PCP - General Family Medicine 01/28/23 Emmie Dela Cruz, RN [address] [place] [address] Registered Nurse Family Medicine 08/05/23 10/21/24 documented as of this encounter
--- OUTSIDE RECORDS SUMMARY | 2025-04-05 16:44 | XMS_ITS | Encounter Summary ---
Author Organization [facility] Address [address] [place] [address] Care Team Providers Care Brokerage Office Manager Name Role Phone Gamal Mari MD Unavailable Gamal Mari MD Primary Care Provider [phone] Emmie Dela Cruz RN Unavailable [phone] Encounter Details Date Type Department Care Team (Late st Contact Info) Description 08/08/2023 [facility] [address] [facility] 110 [place] [address] A, Unknown Practice [address] [id number] Social History Tobacco Use Types Packs/Day Years [...] and heating? Not hard at all 02/21/2023 [facility] of Occupat ional Health - [...] [facility] [address] [place] [address] Cristiane Duckworth MD [address] [place] [address] documented as of this encounter Procedures Procedure Name Priority Date/Time Associated Diagnosis Comments SCANNED LABS Routine 08/08/2023 10:08 AM EST documented in this encounter Results * SCANNED LABS (08/08/2023 10:08 AM EST) us Unknown Practice A LAB CHG PERFORMABLES Final Re sult documented in this encounter Visit Diagnoses Not on filedocumented in this encounter Care Teams Brokerage Office Manager Relationship Specialty Start Date End Date Gamal Mari MD [address] [place] [address] PCP - ACO Reach 01/17/23 Gamal Mari MD [address] [place] [address] PCP - General Family Medicine 01/28/23 Emmie Dela Cruz, RN [address] [place] [address] Registered Nurse Family Medicine 08/05/23 10/21/24 documented as of this encounter
[2025-04-05 17:06] LABS: Hematocrit 37.2 % (36.0-48.0); Hemoglobin 12.2 g/dL (12.0-16.0); Immature Granulocytes Abs Auto 0.01 10^3/uL (0.00-0.03); Immature Granulocytes Pct Auto 0.2 % (0.0-0.5); Lymphocytes Absolute Auto 1.8 10^3/uL (1.2-3.8); Mean Corpuscular HGB Conc 32.8 g/dL (29.9-35.2); Mean Corpuscular Hemoglobin 28.8 pg (26.7-34.0); Mean Corpuscular Volume 87.9 fL (81.0-99.0); Platelet Count 199 10^3/uL (150-450); Red Blood Count 4.23 10^6/uL (4.20-5.40); White Blood Count 6.3 10^3/uL (4.0-11.0)
[2025-04-05 17:27] LABS: Alanine Aminotransferase 26 U/L (14-59); Albumin Globulin Ratio 0.9; Albumin Level 3.4 g/dL (3.4-5.0); Alkaline Phosphatase 80 U/L (46-116); Anion Gap 6.2; Aspartate Amino Transferase 18 U/L (15-37); Blood Urea Nitrogen 16.0 mg/dL (7.0-18.0); Calcium 9.7 mg/dL (8.5-10.1); Carbon Dioxide 32.7 mmol/L (21.0-32.0); Chloride 106 mmol/L (98-107); Estimated GFR (African America >60 (>=60 mL/min/1.73m^2); Estimated GFR (Non-African Ame >60 (>=60 mL/min/1.73m^2); Globulin 3.9 g/dL; Glucose 94 mg/dL (74-106); Potassium 3.9 mmol/L (3.5-5.1); Sodium 141 mmol/L (136-145); Total Protein 7.3 g/dL (6.4-8.2)
== END 2025-04-05 16:39 | disposition home or self-care (01) ==
LOC: LAB 16:40
PROVIDERS: PCP Physician Assistant; Visit Provider Internal Medicine Rheumatology
DX: M19.90 Unspecified osteoarthritis, unspecified site (principal); Z79.899 Other long term (current) drug therapy
CPT/HCPCS: 36415; 80053; 85025

== ENCOUNTER 2025-06-24 12:59 | Outpatient (OUT) | payer MEDICARE, OTHER, SELFPAY ==
--- OUTSIDE RECORDS SUMMARY | 2025-06-17 14:45 | XMS_ITS | Encounter Summary ---
Author Organization [facility] Address [address] [place] [address] Care Team Providers Care Sap Portal Architect Name Role Phone Gamal Mari MD Primary Care Provider [phone] Gamal Mari MD Unavailable [phone] Source Comments In the event this information is protected by the Federal Confidentiality of Alcohol and Drug AbusePatient Records regulations: The Federal rules restrict any use of the information to criminally investigate or prosecute any alcohol or drug abuse patient.[facility] Encounter Details DateTypeDepartmentCare Team (Latest Contact Info)Przawmcsfev40/23/2025 2:45 PM [facility] Center Hematology/Oncology [address] [place] [address] [place] [address] Anemia, unspecified type (Primary Dx); 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 deficiency Social History Tobacco UseTypesPacks/DayYears UsedDateSmoking Tobacco: FormerCigarettesPassive Smoke Exposure: CurrentSmokeless Tobacco: Never Comments:vapes Alcohol UseStandard Drinks/WeekCommentsNot Currently0 (1 standard drink = 0.6 oz pure alcohol)sociallyPHQ-2AnswerDate RecordedPHQ-2 zdknd4565Area Deprivation IndexAnswerDate RecordedNational Score (1-100), lower number is lower zgzt407203/13/2023State Score (1-10), lower number is lower rirp017 Data from: https://www.neighborhoodatlas.medicine.[facility].edu/. Last address used for onxdnpnwhie[address]3CommentsNoSex and Gender InformationValueDate RecordedSex Assigned at BirthNot on fileLegal SexFemale 11/05/2018 10:38 AM EDTGender IdentityNot on fileSexual OrientationNot on file documented as of this encounter Last Filed Vital Signs Vital SignReadingTime TakenCommentsBlood Eqywpuxb292/8610 2:54 PM EDT Jlnhe8578 2:54 PM RXUNrgwgmknlmu45 ??C (96.8 ??F)06/17/2025 2:54 PM EDT Respiratory Kjiu3955 2:54 PM EDTOxygen Nzilxerdtk58%06/17/2025 2:54 PM EDTInhaled Oxygen Concentration--Gjuwiw19.8 kg (131 lb 13.4 oz)06/17/2025 2:54 PM EDTHeight--Body Mass Index25.[address]/07/2024 1:47 PM ESTdocumented in this encounter Progress Notes * Shirley Pierre MA - 06/17/2025 3:00 PM EDT Patient Identification confirmed: yes. Injection given and documented on OCT per provider order. Shirley Pierre MA documented in this encounter Plan of Treatment DateTypeDepartmentCare Team (Latest Contact Info)Xedwdsaegmy83/18/2025 2:00 PM ESTInfusion Center Hematology/Oncology [address] [place] [address] monthly B1208/09/2025 2:15 PM ESTOffice Visit [facility] [address] [facility] [place] [address] follow up lab and B1208/09/2025 2:30 PM ESTVisit (SP) Office Hematology/Oncology [address] [facility] [place] [address] Marietta Andre, JAZZ.FUDGER [address] [place] [address] follow up lab and B1208/09/2025 3:00 PM [facility] Hematology/Oncology [address] [place] [address] follow up lab and B12(seeing Kim too)documented as of this encounter Visit Diagnoses Diagnosis Anemia, 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 Other vitamin B12 deficiency anemia documented in this encounter Administered Medications Medication OrderMAR ActionAction DateDoseRateSite cyanocobalamin 1,000 mcg injection 1,000 mcg, INTRAMUSCULAR, ONCE, 1 dose, On [place] 06/17/25 at 1500 Indications:Anemia, unspecified type,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 wwrgelfjxlRtcfi27/23/2025 3:00 PM EDT1,000 mcgDeltoid, Rightdocumented in this encounter Care Teams Team MemberRelationshipSpecialtyStart DateEnd Date Gamal Mari MD [address] [facility] 110 [place] [address] PCP - GeneralFamily Medicine11/05/18 Gamal Mari MD [address] [facility] 110 [place] [address] ReferringFamily Medicine11/05/18documented as of this encounter
--- NOTE | 2025-06-24 13:00 | MM_ITS ---
Patient Name: GINNY CESPEDES MR#: [id number] : 1955 Exam Date: 06/24/2025 Ordering Doctor: DR NURYS BOGGS M.D. RADIOLOGY REPORT PROCEDURE: MM TOMOSYNTHESIS SCREENING BI COMPARISON: MM TOMOSYNTHESIS SCREENING BI, 06/05/2024. MM TOMOSYNTHESIS SCREENING BI, 06/04/2023. MG MAMM DIAGNOSTIC 3D TAMMY CAD, 05/29/2022. MG MAMM SCREEN TAMMY W CAD, 10/09/2017. INDICATIONS: Screening Calculator Name NCI Breast Cancer Risk Assessment Tool 5 Year Breast Cancer Risk n/a% Lifetime Breast Cancer Risk n/a% Personal Breast Cancer Yes, DCIS right breast with radiation 2019 Personal Ovarian Cancer No Treatments Radiation Family Cancers Mother with breast cancer at age 59; Sister with colon cancer at age ~54. LOCATION: [facility] BREAST COMPOSITION: The breasts are heterogeneously dense, which may obscure small masses. FINDINGS: DIAGNOSTIC CATEGORY 1--NEGATIVE. RIGHT BREAST: No significant suspicious finding. LEFT BREAST: No significant suspicious finding. RECOMMENDATIONS: ROUTINE MAMMOGRAM AND CLINICAL EVALUATION IN 12 MONTHS. Dictated by: Max Welsh DO on 06/24/2025 at 15:53 Approved by: Max Welsh DO on 06/24/2025 at 15:55
--- OUTSIDE RECORDS SUMMARY | 2025-06-24 13:01 | XMS_ITS | Encounter Summary ---
Author Organization [facility] Address [address] [place] [address] Care Team Providers Care Overweaver Name Role Phone Gamal Mari MD Unavailable Gamal Mari MD Primary Care Provider [phone] Emmie Dela Cruz RN Unavailable [phone] Encounter Details DateTypeDepartmentCare Team (Latest Contact Info)Gqytyixzrmy58/06/2023Clinisync Result Encounter [facility] External Department Unsolicited Provider, Generic External Data Social History Tobacco UseTypesPacks/DayYears UsedDateSmoking Tobacco: Every DayCigarettes Smokeless Tobacco: Never Comments:11-20 cigs/day Alcohol UseStandard Drinks/WeekCommentsNot Currently0 (1 standard drink = 0.6 oz pure alcohol)Caffeine intake:more than 4 cups per day, sodaHumiliation, Afraid, Rape, and Kick questionnaireAnswerDate RecordedWithin the last year, have you been afraid of your partner or ex-partner?No02/21/2023Within the last year, have you been humiliated or emotionally abused in other ways by your partner or ex-partner?No02/21/2023Within the last year, have you been kicked, hit, slapped, or otherwise physically hurt by your partner or ex-partner?No02/21/2023Within the last year, have you been raped or forced to have any kind of sexual activity by your partner or ex-partner?No02/21/2023Social Connection and Isolation Panel AnswerDate RecordedFrequency of Communication with Friends and FamilyNot on file 08/05/2023Frequency of Social Gatherings with Friends and FamilyNot on file 08/05/2023ttends Spiritism ServicesNot on file08/05/2023ctive Member of Clubs or OrganizationsNot on file08/05/2023How often do you attend meetings of the clubs or organizations you belong to?More than 4 times per year08/05/2023Marital StatusNot on file08/05/2023UDIT-CAnswerDate RecordedQ1: How often do you have a drink containing alcohol?Monthly or less03/08/2023Q2: How many drinks containing alcohol do you have on a typical day when you are drinking?1 or Frequency of Binge DrinkingNot on file03/08/2023Overall Financial Resource Strain (CARDIA)AnswerDate RecordedHow hard is it for you to pay for the very basics like food, housing, medical care, and heating?Not hard at all02/21/2023 PHQ-2AnswerDate RecordedPatient Health Questionnaire-2 Eaebd858FinDeaconess Hospital of Occupational Health - Occupational Stress QuestionnaireAnswerDate RecordedDo you feel stress - tense, restless, nervous, or anxious, or unable to sleep at night because yourmind is troubled all the time - these days?Only a ikjppq3002/21/2023Exercise Vital SignAnswerDate RecordedDays of Exercise per Week Not on file08/05/2023On average, how many minutes do you engage in exercise at this level?0 min08/05/2023Hunger Vital SignAnswerDate RecordedWithin the past 12 months, you worried that your food would run out before you got the money to buy more.Never true02/21/2023Within the past 12 months, the food you bought just didn't last and you didn't have money to get more.Never true02/21/2023RAPARE - TransportationAnswerDate RecordedIn the past 12 months, has lack of transportation kept you from medical appointments or from getting medications?No 02/21/2023In the past 12 months, has lack of transportation kept you from meetings, work, or from getting things needed for daily living?No06/ Housing Stability Vital SignAnswerDate RecordedIn the last 12 months, was there a time when you were not able to pay the mortgage or rent on time?No02/21/2023In the last 12 months, how many places have you lived?In the last 12 months, was there a time when you did not have a steady place to sleep or slept in ashelter (including now)?No02/21/2023CommentsUnknownSex and Gender InformationValueDate RecordedSex Assigned at BirthNot on fileLegal SexFemale 11/07/2022 7:13 PM EDTGender IdentityNot on fileSexual OrientationNot on file documented as of this encounter Functional Status * Over the past 2 weeks, how often have you been bothered by any of the following problems?QuestionAnswerDate of AssessmentAuthorLittle interest or pleasure in doing thingsNot at all01/26/2025 1:23 PM Allyson Mcbride LPN Feeling down, depressed, or hopelessNot at all01/26/2025 1:23 PM EDAllyson Vazquez LPNPatient Health Questionnaire-2 Dptab617 1:23 PM Allyson Mcbride LPN * QuestionAnswerDate of AssessmentAuthorTrouble falling or staying asleep, or sleeping too muchNot at all10/21/2023 10:00 AM Allyson Stratton LPNFeeling tired or having little energyNot at all10/21/2023 10:00 AM Allyson Stratton LPNPoor appetite or overeatingNot at all10/21/2023 10:00 AM Allyson Stratton LPNFeeling bad about yourself - or that you are a failure or have let yourself or your family downNot at all10/21/2023 10:00 AM Allyson Stratton LPNTrouble concentrating on things, such as reading the newspaper or watching television Not at all10/21/2023 10:00 AM Allyson Stratton LPNMoving or speaking so slowly that other people could have noticed? Or the opposite - being so fidget y or restless that you have been moving around a lot more than usual.Not at all10/21/2023 10:00 AM Allyson Stratton LPNThoughts that you would be better off or hurting yourself in some wayNot at all10/21/2023 10:00 AM Allyson Stratton LPNPatient Health Questionnaire-9 Nwbzf866 10:00 AM Allyson Stratton LPN documented as of this encounter Plan of Treatment DateTypeDepartmentCare Team (Latest Contact Info)Lmiuwuchttg60/17/2026 1:00 PM EDTOffice Visit [facility] [address] [place] [address] Cristiane Duckworth MD [address] [place] [address] documented as of this encounter Procedures Procedure NamePriorityDate/TimeAssociated GphtacffrYmuximgpOWH1263/06/2023 3:22 PM EST documented in this encounter Results * ECG01 (07/31/2023 3:22 PM EST)Anatomical RegionLateralityModalityOtherSpecimen (Source)Anatomical Location / LateralityCollection Method / VolumeCollection TimeReceived Time07/31/2023 3:22 PM EST Narrative 08/30/2023 9:43 AM EST Ventricular Rate : 148 BPM Atrial Rate ?: 150 ? BPM QRS Duration ? : 112 ? ms Q-T Interval ? : 308 ? ms QTC Calculation(Bazett) ?: 483 ? ms Calculated R Wendel ?: 53 ?degrees Calculated T Wendel ?: 74 ?degrees SUPRAVENTRICULAR TACHYCARDIA WITH SHORT RP INTERVAL, CONSIDER AVNRT ABNORMAL ECG Confirmed by CAITIE LAND MD ([id number]) on 08/30/2023 9:42:57 AM NAME : IVONNE DEL CASTILLO PID : [id number] : 1955 ?? Gender : Female Race : ORD : ? Procedure Date : Jul 31 2023 15:22:43 Edit Date : Aug 30 2023 09:43:01 ? Diagnosis: SUPRAVENTRICULAR TACHYCARDIA WITH SHORT RP INTERVAL, CONSIDER AVNRT ABNORMAL ECG ? Confirmed by CAITIE LAND MD ([id number]) on 08/30/2023 9:42:57 AM ? Test Reason : ? [place] : [place] : [facility] [place] Overread By : CAITIE LAND MD Edited By : CAITIE LAND MD Referred By : JAEL LUNSFORD Acquired by : , Procedure Note Radiology, Radiologist, MD - 08/30/2023 Ventricular Rate : 148 BPM Atrial Rate : 150 BPM QRS Duration : 112 ms Q-T Interval : 308 ms QTC Calculation(Bazett) : 483 ms Calculated R Wendel : 53 degrees Calculated T Wendel : 74 degrees SUPRAVENTRICULAR TACHYCARDIA WITH SHORT RP INTERVAL, CONSIDER AVNRT ABNORMAL ECG Confirmed by CAITIE LAND MD ([id number]) on 08/30/2023 9:42:57 AM NAME : IVONNE DEL CASTILLO PID : [id number] : 1955 Gender : Female Race : ORD : Procedure Date : Jul 31 2023 15:22:43 Edit Date : Aug 30 2023 09:43:01 Diagnosis: SUPRAVENTRICULAR TACHYCARDIA WITH SHORT RP INTERVAL, CONSIDERAVNRT ABNORMAL ECG Confirmed by CAITIE LAND MD ([id number]) on 08/30/2023 9:42:57 AM Test Reason : Location : 539 : [facility] [place] Overread By : CAITIE LAND MD Edited By : CAITIE LAND MD Referred By : JAEL LUNSFORD Acquired by : , Authorizing ProviderResult TypeResult StatusGeneric External Data Provider CLINISYNC IMAGINGFinal Result documented in this encounter Visit Diagnoses Not on filedocumented in this encounter Care Teams Team MemberRelationshipSpecialtyStart DateEnd Date Gamal Mari MD [address] [place] [address] PCP - ACO Reach01/17/23 Gamal Mari MD [address] [place] [address] PCP - GeneralFamily Medicine01/28/23 Emmie Dela Cruz, RN [address] [place] [address] Registered NurseFamily Cpsutvho08/11/232documented as of this encounter
--- OUTSIDE RECORDS SUMMARY | 2025-06-24 13:01 | XMS_ITS | Clinical Summary ---
Author Organization [facility] Address [address] [place] [address] Care Team Providers Care Manager Plumbing Name Role Phone Gamal Mari MD Primary Care Provider [phone] Gamal Mari MD Unavailable [phone] Allergies Active AllergyReactionsCriticalityNoted DateCommentsBupropionShortness of Breath 12/22/2004Bupropion Hcl (Smoking Deter)Shortness of [place]8311/07/2018 Medications MedicationSigDispense QuantityRefillsLast FilledStart DateEnd DateStatus sertraline (ZOLOFT) 25 mg tablet Take 25 mg by mouth once daily.Active calcium carbonate (CALCIUM 500 ORAL) Take by mouth.Active Cholecalciferol, Vitamin D3, (VITAMIN D) 1,000 unit cap Take 1,000 Units by mouth once daily.Active loperamide (IMODIUM) 2 mg cap(s) every other day.Active levothyroxine (SYNTHROID) 50 mcg tablet Take 50 mcg by mouth once daily. 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 dfbcfzdoff52/29/2025 2:00 PM EDTInfusion Center Hematology/Oncology [address] [place] [place] [address] Anemia, unspecified type (Primary Dx); 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 gjudwwifmp85/29/0076Ikrtxe70/26/2025 2:00 PM EDTNurse Visit Hematology/Oncology [address] [place] [address] Matteo Kennedy Nurse Ervin Anemia, unspecified type (Primary Dx); 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 eokslozhwr40/19/2025Orders Only Hematology/Oncology [address] [place] [place] [address] Marietta Andre, BINDERY ASSISTANT.MEDICAL TRANSCRIPTION RADIOLOGY 04/13/2025Orders Only Hematology/Oncology [address] [place] [address] [place] [address] Kim Maldonado, BINDERY ASSISTANT.MEDICAL TRANSCRIPTION RADIOLOGY from Last 3 Months Immunizations ImmunizationAdministration DatesNext Duezoster (ZVL) vaccine, live (ZOSTAVAX) 06/28/2015 Family History Medical HistoryRelationCommentsEmphysemaFatherDiabetesMotherHeart diseaseMother RelationStatusCommentsFatherMother Social History Tobacco UseTypesPacks/DayYears UsedDateSmoking Tobacco: FormerCigarettesPassive Smoke Exposure: CurrentSmokeless Tobacco: Never Tobacco Cessation:Counseling Given: Not Answered Comments:vapes Alcohol UseStandard Drinks/WeekCommentsNot Currently0 (1 standard drink = 0.6 oz pure alcohol)sociallyPHQ-2AnswerDate RecordedPHQ-2 wnuyr4165Area Deprivation IndexAnswerDate RecordedNational Score (1-100), lower number is lower mgjt202203/13/2023State Score (1-10), lower number is lower rvim79703/13/2023 Data from: https://www.neighborhoodatlas.medicine.[facility].edu/. Last address used for ggztdegytjj[address]3CommentsNoSex and Gender InformationValueDate RecordedSex Assigned at BirthNot on fileLegal SexFemale 11/05/2018 10:38 AM EDTGender IdentityNot on fileSexual OrientationNot on file Last Filed Vital Signs Vital SignReadingTime TakenCommentsBlood Pcadhbgw717/8606/17/2025 2:54 PM EDT Mczxk842706/17/2025 2:54 PM XERGrpcgxaruly35 ??C (96.8 ??F)06/17/2025 2:54 PM EDT Respiratory Tdrg6259 2:54 PM EDTOxygen Ktvqbwscrz26%06/17/2025 2:54 PM EDTInhaled Oxygen Concentration--Mrqjpg17.8 kg (131 lb 13.4 oz)06/17/2025 2:54 PM AFXYksyag019.4 cm (5')09/07/2024 1:47 PM ESTBody Mass Index25.75009/07/2024 1:47 PM EST Plan of Treatment DateTypeDepartmentCare Team (Latest Contact Info)Tjverouleav46/18/2025 2:00 PM ESTInfusion Center Hematology/Oncology [address] [place] [address] [place] [address] monthly B1208/09/2025 2:15 PM ESTOffice Visit [facility] [address] [place] [address] follow up lab and 2:30 PM ESTVisit (SP) Office Hematology/Oncology [address] [place] [address] [place] [address] Marietta Andre, BINDERY ASSISTANT.MEDICAL TRANSCRIPTION RADIOLOGY [address] [place] [address] follow up lab and B1208/09/2025 3:00 PM ESTInfusion Center Hematology/Oncology [address] [place] [address] [place] [address] follow up lab and B12(seeing Kim too)Health MaintenanceDue DateLast Done CommentsAnxiety Zelwzkufu96/08/1971Depression Kbhgmbbwn52/08/1971Hepatitis C Pcfjciewj13/08/1971DTaP,Tdap,Td Vaccine (1 - Tdap)1972CT Colonography 1998Cologuard (FIT-DNA)1998Fecal Occult Blood1998Lipid Ftokxhgxw06/08/6057Plljqxphtjogh82/08/1998Pneumococcal Vaccine: 50+ (1 of 1 - PCV)2003Shingrix Vaccine (2 of 3)Colonoscopy11/15/2016 11/16/2015Colorectal Cancer Hkykaoija19/23/2017Medicare Annual Wellness Visit 04/26/2018Mammogram Fvjogxpie40/11/2021, 05/26/2021, 10/29/2019, Additional history existsAdvance Directive Ehitbmbwrr24/01/2025ovid-19 Vaccine ( - 2024- season)2025Influenza Vaccine (#1)2025Diabetes Screening 8002/22/2025, 11/30/2024, 09/07/2024, Additional history existsRSV Vaccine (1 - 1-dose 75+ series)2028Bone Density ScreeningCompleted 10/24/2021, 09/03/2018 Procedures Procedure NamePriorityDate/TimeAssociated DiagnosisCommentsCOMPREHENSIVE METABOLIC VXRMOKsmryej29/30/2025 2:09 PM EDT 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 deficiency from Last 3 Months or Most Recently Relevant to Health Maintenance Results * (ABNORMAL) COMPREHENSIVE METABOLIC PANEL (02/22/2025 2:09 PM EDT)Component ValueRef RangeTest MethodAnalysis TimePerformed AtPathologist Signature Protein, Total6.96.3 - 8.0 g/dL02/22/2025 2:50 PM EDTNORTHCOAST [facility] LABAlbumin4.03.9 - 4.9 g/dL02/22/2025 2:50 PM EDTNORTHCOAST [facility] LABCalcium, Total9.78.5 - 10.2 mg/dL02/22/2025 2:50 PM EDTNORTHCST RE[facility]IL[facility] LABBilirubin, Total0.20.2 - 1.3 mg/dL 02/22/2025 2:50 PM EDTNORTSTURGIS HOSPITAL LABAlkaline Uozcxpydbyk6089 - 123 U/L02/22/2025 2:50 PM EDTBR[facility] KRDSSN3066 - 35 U/L02/22/2025 2:50 PM [facility] WEFZKK375 - 38 U/L02/22/2025 2:50 PM EDWY[facility] HWULygaixp989(H)74 - 99 mg/dL02/22/2025 2:50 PM EDWYOMING [facility]AL [facility]ITAL LABComment: The [place] Diabetes Association (ADA) provides guidance for cutoff values for fasting glucose andrandom glucose. The ADA defines fasting as no [...] Standards of Medical Care in Diabetes 2016, [place] Diabetes Association. Diabetes Care. 2016.39(Suppl 1). LRO241 - 21 mg/dL02/22/2025 2:50 PM [facility] Creatinine0.690.58 - 0.96 mg/dL02/22/2025 2:50 PM EDWY[facility] HDVYdamci029384 - 144 mmol/L02/22/2025 2:50 PM [facility] LABPotassium4.03.7 - 5.1 mmol/L02/22/2025 2:50 PM [facility] GHUZfkthyvd58181 - 107 mmol/L02/22/2025 2:50 PM EDT [facility] YAZOF54739 - 30 mmol/L02/22/2025 2:50 PM EDT [facility] LABAnion Whq820 - 15 mmol/L02/22/2025 2:50 PM EDTNORTSTURGIS [facility]OSPITAL LABEstimated Glomerular Filtration Rate93 >=60 mL/min/1.73m 02/22/2025 2:50 PM EDTBROADDUS HOSPITAL LABComment:Estimated Glomerular Filtration Rate (eGFR) is calculated using the 2020 CKD-EPI creatinine equation. This equation utilizes serum creatinine, sex, and age as parameters. The creatinine assay has traceable calibration to isotope dilution- mass spectrometry. Refer to KDIGO guidelines for clinical interpretation. In patients with unstable renal function, e.g. those with acute kidney injury, the eGFRmay not accurately reflect actual GFR.Specimen (Source)Anatomical Location / LateralityCollection Method / VolumeCollection TimeReceived TimeBloodBLOOD SPECIMEN / UnknownVenipuncture / Jmcojta1402/22/2025 2:09 PM EDT02/22/2025 2:09 PM EDT Narrative Authorizing ProviderResult TypeResult StatusMaikel Resendiz MDLABORATORYFinal ResultPerforming OrganizationAddressCity/State/ZIP CodePhone Number [facility] [address] [place] [address] from Last 3 Months or Most Recently Relevant to Health Maintenance Insurance Care Teams Team MemberRelationshipSpecialtyStart DateEnd Date Gamal Mari MD [address] [facility] [address] [place] [address] PCP - [facility]11/05/18 Gamal Mari MD [address] [facility] [address] [place] [address] [facility]11/05/18
--- OUTSIDE RECORDS SUMMARY | 2025-06-24 13:01 | XMS_ITS | Encounter Summary ---
Author Organization [facility] Address [address] [place] [address] Care Team Providers Care Development Rep Name Role Phone Gamal Boggs MD Unavailable Gamal Boggs MD Primary Care Provider [phone] Emmie Dela Cruz RN Unavailable [phone] Encounter Details DateTypeDepartmentCare Team (Latest Contact Info)Gphlztaecov91/24/2024Clinisync Result Encounter [facility] External Department Unsolicited Gamal Boggs MD [address] [facility] [address] [place] [address] Social History Tobacco UseTypesPacks/DayYears UsedDateSmoking Tobacco: Every ObiZvgccurtet515 Smokeless Tobacco: Never Comments:11-20 cigs/day Alcohol UseStandard [...] with Friends and FamilyNot on file 08/05/2023ttends Hoahaoism ServicesNot on file08/05/2023ctive Member of Clubs or [...] hard at all02/21/2023 PHQ-2AnswerDate RecordedPatient Health Questionnaire-2 Kbdpt916Finjordan [facility] medical [facility] [place] of [facility] - Occupational Stress QuestionnaireAnswerDate RecordedDo you feel stress - tense, restless, nervous, or anxious, or unable to sleep at night because yourmind is troubled all the time - these days?Only a ugsyxo5102/21/2023Exercise Vital SignAnswerDate RecordedDays of Exercise per Week [...] or from getting things needed for daily living?No02/21/2023 Housing Stability Vital SignAnswerDate RecordedIn the last [...] in doing thingsNot at all01/26/2025 1:23 PM EDTVoAllyson jackson LPN Feeling down, depressed, or hopelessNot at all01/26/2025 1:23 PM Allyson Mcbride LPNPatient Health Questionnaire-2 Jkojt977 1:23 PM Allyson Mcbride LPN documented as of this encounter Plan of Treatment DateTypeDepartmentCare Team (Latest Contact Info)Ahipzqnzwfu67/17/2026 1:00 PM EDTOffice Visit [facility] [address] [place] [address] Cristiane Duckworth MD [address] [place] [address] documented as of this encounter Procedures Procedure NamePriorityDate/TimeAssociated DiagnosisCommentsXR KNEE 1-2 VIEWS LEFT03/18/2024 7:39 AM EDT documented in this encounter Results * XR knee 1 or 2 views left (03/18/2024 7:39 AM EDT)Anatomical RegionLaterality ModalityLower Extremities, KneeLeftRadiographic ImagingSpecimen (Source) Anatomical Location / LateralityCollection Method / VolumeCollection Time Received Time03/18/2024 7:39 AM EDT Narrative 03/18/2024 7:41 AM EDT [facility] ?[address] ? [place] [address] ?XRay Report ? Signed ? Patient: DEL CASTILLO,GINNY A ?MR#: [id number] ?? : 1955 ?Acct:[id number] ?? Age/Sex: 68 / F ?ADM Date: 03/17/24 ?? Loc: RAD ? Attending Dr: GAMAL BOGGS ? Ordering Physician: GAMAL BOGGS ?? Date of Service: 03/17/24 ?? Procedure(s): XR knee LT 2V ?? Accession Number(s): [id number] ? cc: GAMAL BOGGS ; HONORIO ROJAS ? [facility] ? [address] [facility] ? [place] [address] ? Patient Name: ?? GINNY DEL CASTILLO ? MRN: [facility]:[id number] ? date: 1955 ?Sex: F ?? Assigned Patient Location: RAD ?? Current Patient Location: ? Accession/Order Number: [id number] ?? Exam Date: 03/17/2024 ??12:00 ?Report Date: 03/18/2024 ??07:39 ? At the request of: ?? GAMAL ??AMBROSE ? Procedure: ??XR knee LT 2V ? PROCEDURE: XR knee LT 2V ? COMPARISON: None. ? HISTORY: Fall In Home, Contusion Left Knee, Left Knee Pain ? FINDINGS: ?? BONES:No acute fracture or dislocation. Minimal degenerative changes with ?? marginal osteophyte formation ?? SOFT TISSUES:Negative. No visible soft tissue swelling. ?? EFFUSION:None visible. ?? OTHER: Negative. ? XR/XR knee LT 2V ?? IMPRESSION: ? Minimal osteoarthritis ? Electronically authenticated by: ALEXANDRO ??WEST ?? Date: 03/18/2024 ??07:39 ? Dictated By: ?Alexandro Del Valle M.D. ? Signed By: ?03/18/24 07 ? DD/ 07 ? TD/TT: ? Safety And Skill Based Pay Manager: Procedure Note Radiology, Radiologist, MD - 03/18/[address] [address] XRay Report Signed Patient: GINNY DEL CASTILLO AMR#: [id number] : 1955cct:[id number] Age/Sex: 68 / FADM Date: 03/17/24 Loc: RAD Attending Dr: GAMAL BOGGS Ordering Physician: GAMAL BOGGS Date of Service: 03/17/24 Procedure(s): XR knee LT 2V Accession Number(s): [id number] cc: GAMAL BOGGS ; HONORIO ROJAS [address] [address] Patient Name: GINNY DEL CASTILLO MRN: [id number] date: 1955 Sex: F Assigned Patient Location: [facility] Current Patient Location: Accession/Order Number: [id number] Exam Date: 03/17/2024 12:00 Report Date: 03/18/2024 [...] M.D. Signed By:03/18/24 0741 DD/ 0739 TD/TT: Safety And Skill Based Pay Manager: Authorizing ProviderResult TypeResult StatusGamal Boggs MDIMG XR PROCEDURES Final Result documented in this encounter Visit Diagnoses Not on filedocumented in this encounter Additional Health Concerns AssessmentNoted TimePHQ-9 Depression Total Score: 10:00 AM EST documented as of this encounter Care Teams Team MemberRelationshipSpecialtyStart DateEnd Date Gamal Boggs MD [address] [place] [address] PCP - ACO Reach01/17/23 Gamal Boggs MD [address] [facility] [address] [place] [address] PCP - GeneralFamily Medicine01/28/23 Emmie Dela Cruz, RN [address] [facility] [address] [place] [address] Registered NurseFamily Hhvmrkqr38/11/232documented as of this encounter
--- OUTSIDE RECORDS SUMMARY | 2025-06-24 13:01 | XMS_ITS | Encounter Summary ---
Author Organization [facility] Address [address] [place] [address] Care Team Providers Care Forest Products Gatherer Name Role Phone Gamal Mari MD Unavailable Gamal Mari MD Primary Care Provider [phone] Emmie Dela Cruz RN Unavailable [phone] Encounter Details DateTypeDepartmentCare Team (Latest Contact Info)Icaicvlgbsb74/14/2024Clinisync Result Encounter [facility] External Department Unsolicited Francisca Saenz, PA [address] [facility] [address] [place] [address] Social History Tobacco UseTypesPacks/DayYears UsedDateSmoking Tobacco: Every TxhQvhkvshfjx675 Smokeless Tobacco: Never Comments:11-20 cigs/day Alcohol UseStandard [...] with Friends and FamilyNot on file 08/05/2023ttends Pentecostalism ServicesNot on file08/05/2023ctive Member of Clubs or [...] hard at all02/21/2023 PHQ-2AnswerDate RecordedPatient Health Questionnaire-2 Olajw117Finshriners [facility] [place] of Occupational Health - Occupational Stress QuestionnaireAnswerDate RecordedDo you feel stress - tense, restless, nervous, or anxious, or unable to sleep at night because yourmind is troubled all the time - these days?Only a uqetsk0002/21/2023Exercise Vital SignAnswerDate RecordedDays of Exercise per Week [...] 1:23 PM Allyson Mcbride LPNPatient Health Questionnaire-2 Idipt890 1:23 PM Allyson Mcbride LPN documented as of this encounter Plan of Treatment DateTypeDepartmentCare Team (Latest Contact Info)Ivuzodpbhph92/17/2026 1:00 PM EDTOffice Visit [facility] [address] [place] [address] Cristiane Duckworth MD [address] [place] [address] documented as of this encounter Procedures Procedure NamePriorityDate/TimeAssociated DiagnosisCommentsMM TOMOSYNTHESIS SCREENING BI06/08/2024 9:07 AM EDT documented in this encounter Results * MM TOMOSYNTHESIS SCREENING BI (06/08/2024 9:07 AM EDT)Anatomical Region LateralityModalityOtherSpecimen (Source)Anatomical Location / Laterality Collection Method / VolumeCollection TimeReceived Time06/08/2024 9:07 AM EDT Narrative 06/08/2024 9:08 AM EDT [facility] ?[address] ? [place] [address] ? Mammography Report ? Signed ? Patient: GINNY DEL CASTILLO A ?MR#: [id number] ?? : 1955 ?Acct:[id number] ?? Age/Sex: 69 / F ?ADM Date: 06/05/24 ?? Loc: MAMMO ? Attending Dr: FRANCISCA SAENZ ? Ordering Physician: FRANCISCA SAENZ ? Results: ? Date of Service: 06/05/24 ?Follow Up: ? Procedure(s): MM tomosynthesis screening BI ?? Accession Number(s): [id number] ? cc: FRANCISCA SAENZ ? Patient Name: ? GINNY DEL CASTILLO ? MR#: [id number] ? : 1955 ? Exam Date: 06/05/2024 ?? Ordering Doctor: DR FRANCISCA COLON ? RADIOLOGY REPORT ? PROCEDURE: ? MM TOMOSYNTHESIS SCREENING BI ? COMPARISON: ? [facility] DIAGNOSTIC 3D TAMMY CAD, 05/29/2022. ??MM TOMOSYNTHESIS ?? SCREENING BI, 06/04/2023. ? INDICATIONS: ? Screening ? Calculator Name ? NCI Breast Cancer Risk Assessment Tool ?? 5 Year Breast Cancer Risk ? n/a% ?? Lifetime Breast Cancer Risk ? n/a% ?? 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 Personal Ovarian Cancer ? No ?? Treatments ? Radiation ?? Family Cancers ? Mother with breast cancer at age 59; Sister with colon ?? cancer at age ??54. ? LOCATION: ? [facility] ? BREAST COMPOSITION: ? The breasts are extremely dense, which lowers the ?? sensitivity of mammography. ? FINDINGS: ? DIAGNOSTIC CATEGORY 2--BENIGN FINDING. NO CHANGE FROM COMPARISON. ??Scattered ?? benign-appearing calcifications are present. ??Scattered benign-appearing lymph ?? nodes are present. ? RIGHT BREAST: ??No significant suspicious finding. ? LEFT BREAST: ??No significant suspicious finding. ? RECOMMENDATIONS: ? ROUTINE MAMMOGRAM AND CLINICAL EVALUATION IN 12 MONTHS. ? PLEASE NOTE: ??A NORMAL MAMMOGRAM DOES NOT EXCLUDE THE POSSIBILITY OF BREAST ?? CANCER. ??A CLINICALLY SUSPICIOUS PALPABLE LUMP SHOULD BE BIOPSIED. ? Dictated by: Chuck Melton MD on 06/08/2024 at 09:05 ? Approved by: Chuck Melton MD on 06/08/2024 at 09:07 ? Dictated By: ?Chuck Melton M.D. ? Signed By: ?06/08/24 0908 ? DD/ 0907 ? TD/TT: ? Epoxy Coatings Installer: Procedure Note Radiology, Radiologist, MD - 06/08/2024 [place] [address] Mammography Report Signed Patient: GINNY DEL CASTILLO AMR#: [id number] : 3Acct:[id number] Age/Sex: 69 / FADM Date: 06/05/24 Loc: MAMMO Attending Dr: FRANCISCA SAENZ Ordering Physician: FRANCISCA SAENZ MResults: Date of Service: 06/05/24Follow Up: Procedure(s): MM tomosynthesis screening BI Accession Number(s): [id number] cc: FRANCISCA SAENZ Patient Name: GINNY DEL CASTILLO MR#: [id number] : 1955 Exam Date: 06/05/2024 Ordering Doctor: [...] colon cancer at age 52. LOCATION: [facility] BREAST COMPOSITION: The breasts are extremely [...] Melton M.D. Signed By:06/08/24907 DD/ 6 TD/TT: Ep[employer] Coatings Installer: Authorizing ProviderResult TypeResult StatusFrancisca Saenz [facility] Final Result documented in this encounter Visit Diagnoses Not on filedocumented in this encounter Additional Health Concerns AssessmentNoted TimePHQ-9 Depression Total Score: 10:00 AM EST documented as of this encounter Care Teams Team MemberRelationshipSpecialtyStart DateEnd Date Gamal Mari MD [address] [facility] [address] [place] [address] PCP - ACO Reach01/17/23 Gamal Mari MD [address] [facility] [address] [place] [address] PCP - GeneralFamily Medicine01/28/23 Emmie Dela Cruz, YAA [address] [facility] [address] [place] [address] Registered NurseFamily Qxkqilvm65/11//documented as of this encounter
--- OUTSIDE RECORDS SUMMARY | 2025-06-24 13:01 | XMS_ITS | Encounter Summary ---
Author Organization [facility] Address [address] [place] [address] Care Team Providers Care [employer] Caretaker Name Role Phone Gamal Mari MD Unavailable Gamal Mari MD Primary Care Provider [phone] Emmie Dela Cruz RN Unavailable [phone] Encounter Details DateTypeDepartmentCare Team (Latest Contact Info)Iplokukkaen63/02/2024Clinisync Result Encounter [facility] External Department Unsolicited Aggie Prince, POST TRONIC MACHINE OPERATOR [address] [facility] [address] [place] [address] Social History Tobacco UseTypesPacks/DayYears UsedDateSmoking Tobacco: Every JydFozwzamwje561 Smokeless Tobacco: Never Comments:11-20 cigs/day Alcohol UseStandard [...] with Friends and FamilyNot on file 08/05/2023ttends Congregational ServicesNot on file08/05/2023ctive Member of Clubs or [...] hard at all02/21/2023 PHQ-2AnswerDate RecordedPatient Health Questionnaire-2 Djuie360Finencompass [facility] [place] of Occupational Health - Occupational Stress QuestionnaireAnswerDate RecordedDo you feel stress - tense, restless, nervous, or anxious, or unable to sleep at night because yourmind is troubled all the time - these days?Only a xeudlf3102/21/2023Exercise Vital SignAnswerDate RecordedDays of Exercise per Week [...] 1:23 PM Allyson Mcbride LPNPatient Health Questionnaire-2 Eyilj450 1:23 PM Allyson Mcbride LPN documented as of this encounter Plan of Treatment DateTypeDepartmentCare Team (Latest Contact Info)Vruxwmadwhy34/17/2026 1:00 PM EDTOffice Visit [facility] [address] [place] [address] Cristiane Duckworth MD [address] [place] [address] documented as of this encounter Procedures Procedure NamePriorityDate/TimeAssociated DiagnosisCommentsXR KNEE 4+ VIEWS RIGHT12/26/2023 3:05 PM EDT documented in this encounter Results * XR knee 4+ views right (12/26/2023 3:05 PM EDT)Anatomical RegionLaterality ModalityLower Extremities, KneeRightRadiographic ImagingSpecimen (Source) Anatomical Location / LateralityCollection Method / VolumeCollection Time Received Time12/26/2023 3:05 PM EDT Narrative 12/26/2023 3:07 PM EDT [facility] ?[address] ? [place] [address] ?XRay Report ? Signed ? Patient: DEL CASTILLO,GINNY A ?MR#: [id number] ?? : 1955 ?Acct:[id number] ?? Age/Sex: 68 / F ?ADM Date: 12/26/23 ?? Loc: RAD ? Attending Dr: AGGIE PRINCE ? Ordering Physician: AGGIE PRINCE ?? Date of Service: 12/26/23 ?? Procedure(s): XR knee RT 4V ?? Accession Number(s): [id number] ? cc: HONORIO ROJAS ; AGGIE PRINCE ? [facility] ? [address] [facility] ? [place] [address] ? Patient Name: ?? GINNY DEL CASTILLO ? MRN: [facility]:[id number] ? date: 1955 ?Sex: F ?? Assigned Patient Location: RAD ?? Current Patient Location: RAD ?? Accession/Order Number: [id number] ?? Exam Date: 12/26/2023 ??14:30 ?Report Date: 12/26/2023 ??15:05 ? At the request of: ?? AGGIE ??SURESH ? Procedure: ??XR knee RT 4V ? PROCEDURE: XR knee RT 4V ? COMPARISON: None. ? HISTORY: Acute pain of right knee M25.561 ? FINDINGS: ?? BONES:No fracture, acute abnormality, or significant arthropathy. ?? SOFT TISSUES:Negative. No visible soft tissue swelling. ?? EFFUSION:None visible. ?? OTHER: Negative. ? XR/XR knee RT 4V ?? IMPRESSION: ? No acute radiographic abnormality ? Electronically authenticated by: ALEXANDRO ??WEST ?? Date: 12/26/2023 ??15:05 ? Dictated By: ?Alexandro Del Valle M.D. ? Signed By: ?12/26/23 1507 ? DD/ 1505 ? TD/TT: ? Machines Technician: Procedure Note Radiology, Radiologist, MD - 12/26/2023 [facility] [address] [place] [address] XRay Report Signed Patient: GINNY DEL CASTILLO AMR#: [id number] : 1955cct:[id number] Age/Sex: 68 / FADM Date: 12/26/23 Loc: [facility] Attending Dr: AGGIE PRINCE Ordering Physician: AGGIE PRINCE Date of Service: 12/26/23 Procedure(s): XR knee RT 4V Accession Number(s): [id number] cc: HONORIO ROJAS ; AGGIE PRINCE [place] [address] Patient Name: GINNY DEL CASTILLO MRN: [id number] date: 1955 Sex: F Assigned Patient Location: [facility] Current Patient Location: [facility] Accession/Order Number: [id number] Exam Date: 12/26/2023 14:30 Report Date: 12/26/2023 [...] M.D. Signed By:12/26/23 1507 DD/ 1505 TD/TT: Machines Technician: Authorizing ProviderResult TypeResult StatusAggie Prince NPIMG XR PROCEDURES Final Result documented in this encounter Visit Diagnoses Not on filedocumented in this encounter Additional Health Concerns AssessmentNoted TimePHQ-9 Depression Total Score: 10:00 AM EST documented as of this encounter Care Teams Team MemberRelationshipSpecialtyStart DateEnd Date Gamal Mari MD [address] [facility] [address] [place] [address] PCP - ACO Reach01/17/23 Gamal Mari MD [address] [facility] [address] [place] [address] PCP - GeneralFamily Medicine01/28/23 Emmie Dela Cruz, RN [address] [facility] [address] [place] [address] Registered NurseFamily Axrrczme17/11/232documented as of this encounter
--- OUTSIDE RECORDS SUMMARY | 2025-06-24 13:01 | XMS_ITS ---
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 Other Current Plans CYANOCOBALAMIN 1000 D1,29,57 - Q84D* Plan Start Date:03/13/2023 Plan Provider:Maikel Resendiz MD Linked Problems Anemia, unspecified typeMega loblastic anemia due to vitamin B12 deficiency Treatment MedicationsCurrent Day (Day 1, Cycle 10 - Planned for 07/15/2025)Next Day (Day 29, Cycle 10 - Planned for 08/18/2025)No medications scheduled.No medications scheduled.No medications scheduled. Past Treatment and Therapy Plans Treatment Summaries Ductal carcinoma in situ (DCIS) of breast* Treatment Summary and Survivorship Care Plan for Breast Cancer Provided by: Marietta Andre APRN.SENIOR TREASURY ANALYST General Information Patient Name: Ivonne Del Castillo [...] Test How Often Oncology Team Mammogram Annually [employer] or PCP Pap/pelvic exam As indicated by [...] (loss/gain) Resources you may be interested in: [facility] Sheet Combining Operator [facility] [phone] Sheet Combining Operator Neuro Ophthalmologist Art Therapy Women with Cancer Support Group- Meets at [address] [place] [address] [place] Ward- From 4 PM to 5 PM- contact the social media marketing manager for dates. Living with Cancer Support Group- Meets at [address] [place] [address] [place] Ward- From 11:30 AM to 12:30 PM- Contact the social media marketing manager for dates. Prepared by: Marietta Andre APRN.SENIOR TREASURY ANALYST Delivered on: June 11, 2019 - This [...]
--- OUTSIDE RECORDS SUMMARY | 2025-06-24 13:01 | XMS_ITS | Clinical Summary ---
Author Organization [facility] Healthcare Address [address] [place] [address] Care Team Providers Care Supervisor [employer] Name Role Phone Gamal Mari MD Unavailable Gamal Mari MD Primary Care Provider [phone] Allergies Active AllergyReactionsCriticalityNoted DateCommentsBarium SulfateNausea And Lgoqknee22/13/2023upropionUnknown,Other01/28/2023 Medications MedicationSigDispense QuantityRefillsLast FilledStart DateEnd DateStatus denosumab (Prolia) 60 MG/ML solution prefilled syringe Inject 60 mg under the skin EVERY 6 MONTHSActive Probiotic Product (ALIGN PO) Take 1 tablet by mouth Daily06/26/2023ctive Tidwsah-Eptjkvvalf-Vdmsxkp D (CALCIUM GUMMIES PO) Take 2 each by mouth Daily as needed 500mg gummiesActive cyanocobalamin (Vitamin B-12) 1000 MCG/ML injection Active diphenoxylate-atropine (Lomotil) 2.5-0.025 MG tablet Take 2 tablets by mouth at noon and 2 tablets in the evening.05/06/2024ctive tiZANidine (Zanaflex) 4 MG tablet Indications:Back pain of lumbar region with sciaticaTake 1 tablet (4 mg) by mouth every 8 (eight) hours if needed for muscle spasms 30 tablet 5Active sertraline (Zoloft) 50 MG tablet Indications:Major depressive disorder, single episode, unspecifiedTake 1 tablet (50 mg) by mouth Daily TAKE ON TAB IN THE AM AND 0.5 TAB IN THE EVENING 100 tablet 5Active levothyroxine (Synthroid, Levoxyl) 50 MCG tablet Indications:Autoimmune thyroiditisTAKE 1 TABLET (50 MCG) BY MOUTH DAILY IN THE MORNING 5 DAYS A WEEK, AND 1 AND 1/2 TABS 2 DAYS A WEEK 104 tablet 4075Active DULoxetine (Cymbalta) [address] capsule Indications:FibromyalgiaTAKE 1 CAPSULE BY MOUTH EVERY MORNING & 1 CAPSULE AT BEDTIME *DO NOT CHEW/CRUSH* 180 capsule 1105Active DULoxetine (Cymbalta) [address] capsule Indications:FibromyalgiaTake 1 capsule (60 mg) by mouth in the morning and 1 capsule (60 mg) before bedtime. Do not crush or chew. 60 capsule 51Discontinued Active Problems ProblemNoted DateDiagnosed DateAcute strain of neck ovmoti2812/07/2024 Assessment & Plan (12/07/2024 10:47 AM EDT): I discussed with patient that while on prednisone, do not take any NSAIDs like Ibuprofen, Naprosyn,Alleve or motrin. Watch for any side effects like abdominal pain and nausea. Take the prednisone with food or milk. Prednisone may increase appetite. While on prednisone, watch for any sugar elevations. Sprain of metacarpophalangeal joint of left thumb12/07/2024Left hand pain 09/07/2024 Assessment & Plan (09/07/2024 11:50 AM EST): Arthritic changes Bile acid malabsorption zheymmlo33/12/2024Seasonal affective faurnltz03/12/2024 Assessment & Plan (08/10/2024 2:06 PM EST): Will wean off the Zoloft in 3-4 months Acute bilateral low back pain without utarljxd41/12/2024 Assessment & Plan (07/07/2024 3:16 PM EST): Consider gummys Vtvuhob2407/07/2024 Assessment & Plan (07/07/2024 3:15 PM EST): Resume Zanaflex at night F/U month Add Cymbalta Opfxahsobjji58/07/2024 Assessment & Plan (09/07/2024 11:46 AM EST): Substance P mediated On Duloxetine and Zanaflex Has tried gummies Assessment & Plan (08/10/2024 2:07 PM EST): Subjectively not much change excpet improved sleep Objectively less painful trigger points F/Up with pharmacy about recall Assessment & Plan (07/07/2024 3:16 PM EST): Consider Lyrica Primary osteoarthritis of left knee05/12/2024Fall at home03/17/2024ontusion of left knee03/17/2024cute pain of left knee03/17/2024 Assessment & Plan (03/17/2024 11:32 AM EDT): Knee sleeve Daytime dhjxdsmlyr21/23/2024 Assessment & Plan (03/17/2024 11:35 AM EDT): Consider Sleep Apnea Test Wants to wait till f/up with Hematology/Oncology Njaqjsf3510/21/2023 Assessment & Plan (03/17/2024 11:33 AM EDT): Consider doing sleep apnea Lumbar disc lqphircogf06/26/2024Spinal stenosis of lumbar region with neurogenic yutkhcciazzg62/26/2024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 deficiency 03/13/2023Loose jgtypo7903/08/2023bnormal CT of the wfvrupp5303/07/2023rthritis 03/07/2023Family history of colon zwcevn2503/07/2023History of colon polyps 03/07/2023Internal pojzgtcdycs86/13/2023ancreatic tuckyliuvffsv72/13/2023Small intestinal bacterial overgrowth (SIBO)03/07/2023Vitamin B12 vdlwushkvc67/13/2023 Gpimpxk8401/28/2023ack pain of lumbar region with ulmvfrhy11/05/2023 Assessment & Plan (09/05/2023 1:20 PM EST): Have seen Dr. Alexander and a Higinio N/S and still no improvement Is not interested in Pain specialist Declined Prednisone Carcinoma in situ of bgmlnc1701/28/2023hronic bronchitis with COPD (chronic obstructive pulmonary disease)01/28/2023Estrogen tbgkallfej09/05/2023 Poxbuatonmnfuf13/05/2023History of partial mastectomy of right elegvn1901/28/2023 Ujeqrebcfwwtbjtlrkbc46/05/4041Ziwloorqvoh64/05/2023Thyroid kolghvmflnw74/05/2023 Irritable bowel syndrome with pjiclwed14/05/2023 Assessment & Plan (09/07/2024 11:31 AM EST): On Lomotil Has history of IBS Most likely cause Low serum HDL01/28/2023Lumbar paraspinal muscle spasm01/28/2023Malignant neoplasm of upper-inner quadrant of right female mavpdx4701/28/2023 Assessment & Plan (09/07/2024 11:35 AM EST): Has yearly mammograms Microscopic refsotgto27/05/2023Osteoarthritis of lumbar spine01/28/2023 Osteopenia of multiple sites01/28/2023 Assessment & Plan (09/07/2024 11:36 AM EST): Reviewed Dexa Scan Nsqiafduujni96/05/2023 Assessment & Plan (09/17/2024 3:10 PM EST): [...] medication. Encouraged adequate calcium and vitamin D intake.Patient voiced understanding. Prolia given. Pt tolerated the [...] medication. Encouraged adequate calcium and vitamin D intake.Patient voiced understanding. Prolia given. Pt tolerated the [...] medication. Encouraged adequate calcium and vitamin D intake.Patient voiced understanding. Prolia given. Pt tolerated the injection well. Follow up in 6 months for next injection, or sooner should she have any concerns. Other specified chronic obstructive pulmonary ggoauyz8801/28/2023ulmonary nodules 01/28/2023Sacroiliitis, not elsewhere biepuuvlko01/05/2023Steatosis of liver 01/28/2023Thyroid antibody kojnmacf49/05/2023Tobacco pdoqyntbqw22/05/2023 Zyffhppmln36/13/2021bnormal ndnccwwea44/19/2019Abnormal laboratory test result 08/22/20181102Kkjltatpawkkdt81/18/2018Arrest of bone development or spkhgi0812/20/2015 Diverticular disease of colon12/20/2015 Resolved Problems ProblemNoted DateDiagnosed DateResolved DateViral upper respiratory tract Assessment & Plan (09/05/2023 1:17 PM EST): Supportive Care Increase fluids, Tylenol, Ibuporfen, Rashmi''''s vapor vapor rub, rashmi''''s humidifier. Watch for bacterial infections. Mucinex D Acute ear pain, right Assessment & Plan (09/05/2023 1:16 PM EST): Patient was on ZPAK and is on Mucinex D Will call on Saturday if NB Epigastric pain/3291Vxhjgm58bdominal cramping urrent Overview (03/07/2023): Added secondary to documentation in Social History. Lower abdominal painMajor depressive disorder, single episode, qdeiuoymmzo79olyp of colon Chronic obstructive pulmonary qcexawn56 Encounters DateTypeDepartmentCare ZteoJjzhsiomtjx96/24/2025Refill [facility] [address] [facility] [address] [place] [address] Francisca Saenz PA Dxxrxigqedhy36/26/2025bstract [facility] [address] [facility] [address] [place] [address] Gamal Mari MD 04/06/2025bstract [facility] [address] [facility] [address] [place] [address] Gamal Mari MD 5Clinisync Result Encounter [facility] External Department Unsolicited Provider, Generic External Data from Last 3 Months Immunizations ImmunizationAdministration DatesNext Viki, live06/28/2015 Family History Medical HistoryRelationNameCommentsEmphysemaFatherArthritisMotherDoris Wallace DiabetesMotherDoris JonesHeart diseaseMotherDoris JonesHeart failureMotherDoris JonesCancerSiblingHypertensionSiblingCancerSisterMillie SophieRelationNameStatus CommentsFatherDeceasedMotherDoris RodrigoDeceasedSiblingSisterMillicrow Barrios Social History Tobacco UseTypesPacks/DayYears UsedDateSmoking Tobacco: Every NxkYoosvtnwrm090 Smokeless Tobacco: Never Tobacco Cessation:Ready to Q uit: Not Asked; Counseling Given: Yes Comments:11-20 cigs/day Alcohol UseStandard Drinks/WeekCommentsNot Currently0 (1 [...] with Friends and FamilyNot on file 08/05/2023ttends Advent ServicesNot on file08/05/2023ctive Member of Clubs or [...] hard at all02/21/2023 PHQ-2AnswerDate RecordedPatient Health Questionnaire-2 Mnmdq373Finblue mountain hospital, inc. [place] of Occupational Health - Occupational Stress QuestionnaireAnswerDate RecordedDo you feel stress - tense, restless, nervous, or anxious, or unable to sleep at night because yourmind is troubled all the time - these days?Only a izgjyc9702/21/2023Exercise Vital SignAnswerDate RecordedDays of Exercise per Week [...] steady place to sleep or slept in [facility] (including now)?No02/21/2023CommentsUnknownSex and Gender InformationValueDate RecordedSex Assigned at BirthNot on fileLegal SexFemale 11/07/2022 7:13 PM EDTGender IdentityNot on fileSexual OrientationNot on file Last Filed Vital Signs Vital SignReadingTime TakenCommentsBlood Kivdquca037/80002/10/2025 11:19 AM EDT Divit033702/10/2025 11:19 AM SOQHwtgwcrqlql18.3 ??C (99.1 ??F)12/10/2023 10:39 AM EDTRespiratory Uzwo107302/10/2025 11:19 AM EDTOxygen Avcfucrysj21%02/10/2025 11:19 AM EDTInhaled Oxygen Concentration--Iqkxio33 kg (130 lb)02/10/2025 11:19 AM EDT Hmxupl851.4 cm (5')02/10/2025 11:19 AM EDTBody Mass Index25.39002/10/2025 11:19 AM EDT Plan of Treatment DateTypeDepartmentCare Team (Latest Contact Info)Mjbxdzdxaoe63/17/2026 1:00 PM EDTOffice Visit [facility] [address] [place] [address] Cristiane Duckworth MD [address] [place] [address] Health MaintenanceDue DateLast DoneCommentsCT Kggoembyitbi1953FIT-DNA 1955FIT1955FOBT1955 9875Sxyuuekasnpbz1953olonoscopy , 11/16/2015Colorectal Cancer Nakqtxejt26/21/2031Mammogram Ielndhzpjouc24/14/2024, 06/06/2023, 06/04/2023, Additional history exists Influenza VaccineDiscontinuedPneumococcal Vaccine: 65+ YearsDiscontinued Goals GoalPatient Goal TypeAssociated ProblemsRecent ProgressPatient-Stated?Author Help patient manage antidepressant medication Care PlanPatient on antidepressant monitoring Gamal Robert MD Procedures Procedure NamePriorityDate/TimeAssociated DiagnosisCommentsCCF CMP (CMP) (FOR REMOTE [facility] USE)Yexousr1904/05/2025 4:50 PM EDT ALL CBC WITH AUTO CYBQCdnxksr21/11/2025 4:50 PM EDT MM TOMOSYNTHESIS SCREENING BI06/08/2024 9:07 AM EDT IRMFKZGSRZOCheghzs04/23/2016 12:00 PM EDT from Last 3 Months or Most Recently Relevant to Health Maintenance Results * (ABNORMAL) CCF CMP (CMP) (FOR REMOTE [facility] USE) (04/05/2025 4:50 PM EDT) ComponentValueRef RangeTest MethodAnalysis TimePerformed AtPathologist PjdobjdpnGIUGUF986070 - 145 mmol/LTBHPOTASSIUM3.93.5 - 5.1 mmol/LTBHCHLORIDE 37913 - 107 mmol/LTBHCARBON JHGQOUD11.7(H)21.0 - 32.0 mmol/LTBHANION GAP6.2TBH URZFPSL7134 - 106 mg/dLTBHBLOOD UREA KFUVWMBR77.07.0 - 18.0 mg/dLTBHCREATININE 0.740.55 - 1.02 mg/dLTBHTBH EGFR-AF LITHUANIAN>60>=60 mL/min/1.73m 2TBHTBH EGFR- NON AF LITHUANIAN>60>=60 mL/min/1.73m 2TBHBUN CREATININE RATIO21.2WLVDAXQELO6.7 8.5 - 10.1 mg/dLTBHBILIRUBIN TOTAL0.50.2 - 1.0 mg/dLTBHASPARTATE AMINO NJBGYHGNPXK2130 - 37 U/LTBHALANINE RUFCKEXZTJBTHVZB1912 - 59 U/LTBHALKALINE BXUIVGXHFVF5985 - 116 U/LTBHTOTAL PROTEIN7.36.4 - 8.2 g/dLTBHALBUMIN LEVEL3.4 3.4 - 5.0 g/dLTBHGLOBULIN3.9g/dLTBHALBUMIN GLOBULIN RATIO0.9TBHSpecimen (Source)Anatomical Location / LateralityCollection Method / VolumeCollection TimeReceived Time04/05/2025 4:50 PM EDT04/05/2025 4:56 PM EDT Narrative [facility] - 04/05/2025 5:27 PM EDT Authorizing ProviderResult TypeResult StatusGeneric External Data Provider CLINISYNCFinal ResultPerforming OrganizationAddressCity/State/ZIP CodePhone Number [facility]NC [facility] * ALL CBC WITH AUTO DIFF (04/05/2025 4:50 PM EDT)ComponentValueRef RangeTest MethodAnalysis TimePerformed AtPathologist SignatureTBH WBC6.34.0 - 11.0 10 3/uLTBHTBH RBC4.234.20 - 5.40 10 6/uLTBHTBH HGB12.212.0 - 16.0 g/dLTBHTBH HCT 37.236.0 - 48.0 %TBHTBH MCV87.981.0 - 99.0 fLTBHTBH MCH28.826.7 - 34.0 pgTBH TBH MCHC32.829.9 - 35.2 g/dLTBHTBH RDW13.911.0 - 15.0 %TBHTBH JFC393585 - 450 10 3/uLTBHTBH MPV9.89.5 - 13.5 fLTBHNEUTROPHILS PERCENT AUTO56.743.0 - 75.0 % TBHLYMPHOCYTES PERCENT AUTO27.920.5 - 60.0 %TBHMONOCYTES PERCENT AUTO9.61.7 - 12.0 %TBHTBH EO %4.70.9 - 7.0 %TBHBASOPHILS PERCENT AUTO0.90.2 - 2.0 %TBH IMMATURE GRANULOCYTES PCT AUTO0.20.0 - 0.5 %TBHNEUTROPHILS ABSOLUTE AUTO3.61.4 - 6.5 10 3/uLTBHLYMPHOCYTES ABSOLUTE AUTO1.81.2 - 3.8 10 3/uLTBHMONOCYTES ABSOLUTE AUTO0.60.3 - 0.8 10 3/uLTBHTBH EO #0.30.0 - 0.7 10 3/uLTBHBASOPHILS ABSOLUTE AUTO0.10.0 - 0.1 10 3/uLTBHIMMATURE GRANULOCYTES ABS AUTO0.010.00 - 0.03 10 3/uLTBHSpecimen (Source)Anatomical Location / LateralityCollection Method / VolumeCollection TimeReceived Time04/05/2025 4:50 PM EDT04/05/2025 4:56 PM EDT Narrative [facility] - 04/05/2025 5:08 PM EDT Authorizing ProviderResult TypeResult StatusGeneric External Data Provider CLINISYNCFinal ResultPerforming OrganizationAddressCity/State/ZIP CodePhone Number CLINISYNC [facility] * MM TOMOSYNTHESIS SCREENING BI (06/08/2024 9:07 AM EDT)Anatomical Region LateralityModalityOtherSpecimen (Source)Anatomical Location / Laterality Collection Method / VolumeCollection TimeReceived Time06/08/2024 9:07 AM EDT Narrative 06/08/2024 9:08 AM EDT [facility] ?[address] ? [place] [address] ? Mammography Report ? Signed ? Patient: DEL CASTILLO,GINNY A ?MR#: [id number] ?? : 1955 ?Acct:[id number] ?? Age/Sex: 69 / F ?ADM Date: 10/11/24 ?? Loc: MAMMO ? Attending Dr: FRANCISCA SAENZ ? Ordering Physician: FRANCISCA SAENZ ? Results: ? Date of Service: 06/05/24 ?Follow Up: ? Procedure(s): MM tomosynthesis screening BI ?? Accession Number(s): [id number] ? cc: FRANCISCA SAENZ ? Patient Name: ? GINNY DEL CASTILLO ? MR#: [id number] ? : 1955 ? Exam Date: 06/05/2024 [...] at age ??52. ? LOCATION: ? [facility] ? BREAST COMPOSITION: ? The breasts [...] ?Chuck Melton M.D. ? Signed By: ?06/08/24 09 ? DD/ 0907 ? TD/TT: ? Blood Donor Recruiter: Procedure Note Radiology, Radiologist, MD - 06/08/2024 [place] [address] Mammography Report Signed Patient: GINNY DEL CASTILLO AMR#: [id number] : 1955cct:[id number] Age/Sex: 69 / FADM Date: 06/05/24 Loc: MAMMO Attending Dr: FRANCISCA SAENZ Ordering Physician: FRANCISCA SAENZ MResults: Date of Service: 06/05/24Follow Up: Procedure(s): MM tomosynthesis screening BI Accession Number(s): [id number] cc: FRANCISCA ASENZ Patient Name: GINNY DEL CASTILLO MR#: [id number] : 1955 Exam Date: 06/05/2024 Ordering Doctor: [...] colon cancer at age 52. LOCATION: [facility] BREAST COMPOSITION: The breasts are extremely [...] Melton M.D. Signed By:06/08/24907 DD/ 6 TD/TT: Blood Donor Recruiter: Authorizing ProviderResult TypeResult StatusFrancisca Saenz PACLIN[facility]NC IMAGING Final Result * Colonoscopy (11/16/2015 12:00 PM EDT)Anatomical RegionLateralityModality EndoscopySpecimen (Source)Anatomical Location / LateralityCollection Method / VolumeCollection TimeReceived Time11/16/2015 12:00 PM EDT Narrative 11/16/2015 12:00 PM EDT PERFORMED AT [facility] LOCATION:[id number] polyp, internal hemorrhage Procedure Note CONVERSION, GENERIC - 01/10/2023 PERFORMED AT [facility] LOCATION:[id number] polyp, internal hemorrhage Authorizing ProviderResult TypeResult StatusGamal Mari MDENDOSCOPY PROCEDURE ORDERABLESFinal Result from Last 3 Months or Most Recently Relevant to Health Maintenance Additional Health Concerns Active ProblemsNoted DateDiagnosed DatePatient on antidepressant monitoring plan 07/07/2024 Insurance Care Teams Team MemberRelationshipSpecialtyStart DateEnd Date Gamal Mari MD [address] [facility] [address] [place] [address] PCP - [facility]01/17/23 Gamal Mari MD [address] [facility] [address] [place] [address] PCP - [facility]01/28/23
--- OUTSIDE RECORDS SUMMARY | 2025-06-24 13:02 | XMS_ITS | Clinical Summary ---
Author Organization [facility] Address [address] [facility] [place] [address] Phone Care Team Providers Care Intensive Care Specialist Name Role Phone Unavailable Primary Care Provider Unavailabl e Social History Tobacco UseTypesPacks/DayYears UsedDateSmoking Tobacco: Never Assessed CommentsUnknownSex and Gender InformationValueDate RecordedSex Assigned at Not on fileLegal UymBcvhpe77/26/2022 8:45 AM ESTGender IdentityNot on fileSexual OrientationNot on file Plan of Treatment Not on file
--- OUTSIDE RECORDS SUMMARY | 2025-06-24 13:02 | XMS_ITS | Encounter Summary ---
Author Organization [facility] Address [address] [place] [address] Care Team Providers Care Ammonia Print Operator Name Role Phone Gamal Mari MD Unavailable Gamal Mari MD Primary Care Provider [phone] Reason for Visit * ReasonCommentsMed Refill Encounter Details DateTypeDepartmentCare Team (Latest Contact Info)Mgsueadjkxf63/24/2025Refill [facility] [address] [facility] [address] [place] [address] Francisca Saenz, PA [address] [facility] [address] [place], [place] [id number] Fibromyalgia Social History Tobacco UseTypesPacks/DayYears UsedDateSmoking Tobacco: Every GknOmrvvgabih504 Smokeless Tobacco: Never Comments:11-20 cigs/day Alcohol UseStandard [...] with Friends and FamilyNot on file 08/05/2023ttends Gnosticist ServicesNot on file08/05/2023ctive Member of Clubs or [...] hard at all02/21/2023 PHQ-2AnswerDate RecordedPatient Health Questionnaire-2 Wctoy769Finmount[facility] [place] of Occupational Health - Occupational Stress QuestionnaireAnswerDate RecordedDo you feel stress - tense, restless, nervous, or anxious, or unable to sleep at night because yourmind is troubled all the time - these days?Only a tfkghh2302/21/2023Exercise Vital SignAnswerDate RecordedDays of Exercise per Week [...] Plan of Treatment DateTypeDepartmentCare Team (Latest Contact Info)Qudfpnlkxsy92/17/2026 1:00 PM EDTOffice Visit [facility] [address] [place] [address] Cristiane Duckworth MD [address] [place] [address] documented as of this encounter Goals GoalPatient Goal TypeAssociated ProblemsRecent ProgressPatient-Stated?Author Help patient manage antidepressant medication Care PlanPatient on antidepressant monitoring Gamal Robert MDdocumented as of this encounter Visit Diagnoses Diagnosis Fibromyalgia Unspecified myalgia and myositis documented in this encounter Additional Health Concerns Active ProblemsNoted DateDiagnosed DatePatient on antidepressant monitoring plan 4AssessmentNoted TimePHQ-9 Depression Total Score: 10:00 AM ESTdocumented as of this encounter Care Teams Team MemberRelationshipSpecialtyStart DateEnd Date Gamal Mari MD [address] [facility] [address] [place] [address] PCP - [facility]01/17/23 Gamal Mari MD [address] [facility] [address] [place] [address] PCP - GeneralFamily Medicine01/28/23documented as of this encounter
--- OUTSIDE RECORDS SUMMARY | 2025-06-24 13:02 | XMS_ITS | Encounter Summary ---
Author Organization [facility] Address [address] [place] [address] Care Team Providers Care At Risk Paraprofessional Name Role Phone Gamal Mari MD Unavailable Gamal Mari MD Primary Care Provider [phone] Emmie Dela Cruz RN Unavailable [phone] Encounter Details DateTypeDepartmentCare Team (Latest Contact Info)Mbdhizdntfn80/08/2024Clinisync Result Encounter [facility] External Department Unsolicited Francisca Saenz, PA [address] [facility] [address] [place] [address] Social History Tobacco UseTypesPacks/DayYears UsedDateSmoking Tobacco: Every BcsCxsyhgrhsq564 Smokeless Tobacco: Never Comments:11-20 cigs/day Alcohol UseStandard [...] with Friends and FamilyNot on file 08/05/2023ttends Confucianist ServicesNot on file08/05/2023ctive Member of Clubs or [...] hard at all02/21/2023 PHQ-2AnswerDate RecordedPatient Health Questionnaire-2 [id number] medical center [facility] of Occupational Health - Occupational Stress QuestionnaireAnswerDate RecordedDo you feel stress - tense, restless, nervous, or anxious, or unable to sleep at night because yourmind is troubled all the time - these days?Only a islujj7202/21/2023Exercise Vital SignAnswerDate RecordedDays of Exercise per Week [...] in doing thingsNot at all01/26/2025 1:23 PM EDAllyson Vazquez LPN Feeling down, depressed, or hopelessNot at all01/26/2025 1:23 PM Allyson Mcbride LPNPatient Health Questionnaire-2 Aiqbr549 1:23 PM Allyson Mcbride LPN documented as of this encounter Plan of Treatment DateTypeDepartmentCare Team (Latest Contact Info)Beoyunhwfsf94/17/2026 1:00 PM EDTOffice Visit [facility] [address] [place] [address] Cristiane Duckworth MD [address] [place] [address] documented as of this encounter Procedures Procedure NamePriorityDate/TimeAssociated DiagnosisCommentsCT LUNG SCREENING LOW DOSE12/02/2023 10:56 AM EDT documented in this encounter Results * CT LUNG SCREENING LOW DOSE (12/02/2023 10:56 AM EDT)Anatomical Region LateralityModalityOtherSpecimen (Source)Anatomical Location / Laterality Collection Method / VolumeCollection TimeReceived Time12/02/2023 10:56 AM EDT Narrative 12/02/2023 10:58 AM EDT [facility] ?[address] ? [place] [address] ? CT Scan Report ? Signed ? Patient: DEL CASTILLO,GINNY A ?MR#: [id number] ?? : 1955 ?Acct:[id number] ?? Age/Sex: 68 / F ?ADM Date: 12/02/23 ?? Loc: CT ? Attending Dr: FRANCISCA SAENZ ? Ordering Physician: FRANCISCA SAENZ ?? Date of Service: 12/02/23 ?? Procedure(s): CT lung screening low-dose ?? Accession Number(s): [id number] ? cc: FRANCISCA SAENZ ? [facility] ? [address] [facility] ? [place] [address] ? Patient Name: ?? GINNY DEL CASTILLO ? MRN: [facility]:[id number] ? date: 1955 ?Sex: F ?? Assigned Patient Location: CT ?? Current Patient Location: CT ?? Accession/Order Number: [id number] ?? Exam Date: 12/02/2023 ??10:06 ?Report Date: 12/02/2023 ??10:56 ? At the request of: ?? FRANCISCA SAENZ ? Procedure: ??CT lung screening low-dose ? EXAMINATION: CT lung screening low-dose ? HISTORY: Tobacco Dependance F17.200 ? COMPARISON: CT lung cancer screening 11/30/2022 ? TECHNIQUE: Axial, Coronal, and Sagittal images were created without the ?? administration of IV contrast material. Dose reduction techniques were ?? achieved ?? by using automated exposure control and/or adjustment of mA and/or kV ?? according ?? to patient size and/or use of iterative reconstruction technique. ? FINDINGS: ?? LUNGS: Stable appearance of the few small calcified and noncalcified nodules ?? within the right lung and adjacent the pleural surface of the lateral left ?? midlung. No new nodules or appreciable change. ?? PLEURA: No mass, effusion, or pneumothorax. ?? VASCULATURE: No abnormality. ?? AKHIL: Calcified lymph nodes suggestive of chronic granulomatous disease. ?? MEDIASTINUM: Calcified lymph nodes. ?? CARDIAC: No enlargement, pericardial thickening, or pericardial effusion. ?? AORTA: No aneurysm or dissection. ?? CHEST WALL: Stable prominent thyroid gland. No axillary lymphadenopathy. ?? BONES: No bone lesion or fracture. ?? LIMITED ABDOMEN: No suspicious findings. Limited images of the upper abdomen. ?? OTHER: Negative. ? CT/CT lung screening low-dose ?? IMPRESSION: ? 1. Lung-RADS 2- Benign Appearance or Behavior. Nodules with a very low ?? likelihood of becoming a clinically active cancer due to size or lack of ?? growth. Follow-up CT Chest in 1 year. ? Electronically authenticated by: BILL ??TOMEKA ?? Date: 12/02/2023 ??10:56 ? Dictated By: ?Bill Godoy M.D. ? Signed By: ?12/02/238 ? DD/ 1056 ? TD/TT: ? Chartered Accountant: Procedure Note Radiology, Radiologist, MD - 12/02/[address] [place] [id number] Scan Report Signed Patient: GINNY DEL CASTILLO [facility]#: [id number] : 1955cct:[id number] Age/Sex: 68 / FADM Date: 12/02/23 Loc: CT Attending Dr: FRANCISCA SAENZ Ordering Physician: FRANCISCA SAENZ Date of Service: 12/02/23 Procedure(s): CT lung screening low-dose Accession Number(s): [id number] cc: FRANCISCA SAENZ The [address] [address] Patient Name: GINNY DEL CASTILLO MRN: [facility]:[id number] date: 1955 Sex: F Assigned Patient Location: CT Current Patient Location: CT Accession/Order Number: [id number] Exam Date: 12/02/2023 10:06 Report Date: 12/02/2023 [...] M.D. Signed By:12/02/23 1058 DD/ 1056 TD/TT: Chartered Accountant: Authorizing ProviderResult TypeResult StatusFrancisca Saenz [facility] IMAG[facility] Final Result documented in this encounter Visit Diagnoses Not on filedocumented in this encounter Additional Health Concerns AssessmentNoted TimePHQ-9 Depression Total Score: 10:00 AM EST documented as of this encounter Care Teams Team MemberRelationshipSpecialtyStart DateEnd Date Gamal Mari MD [address] [facility] [address] [place] [address] PCP - ACO [facility]01/17/23 Gamal Mari MD [address] [facility] [address] [place] [address] PCP - GeneralFamily Medicine01/28/23 Emmie Dela Cruz, YAA [address] [facility] [address] [place] [address] Registered NurseFamily Bmocpfas57/11/232/documented as of this encounter
--- OUTSIDE RECORDS SUMMARY | 2025-06-24 13:02 | XMS_ITS | Patient Health Record ---
Author Organization [facility] Address [address] [place] [address] Care Team Providers Care Consulting Networking Engineer Name Role Phone [facility], [facility] Primary Car e Provider Unavailable Allergies Allergen (clinical drug ingredient) Drug/Non Drug Allergy documented on EMR Reaction Allergy Type Onset Date Status bupropion Wellbutrin SR SOB Drug Allergy Active Reason For Referral No Information Medications Medication SIG (Take, Route, Frequency, Duration) Notes Start Date End Date Status Calcium ActiveCyanocobalamin 1000 MCG/ML1 mL Injection monthlyActiveProlia 60 MG/MLas directed SubcutaneousActiveVitamin G4MptgdyDclazc 50 MG1 tablet Orally Once a dayActiveLevothyroxine Sodium 50 MCG1 tablet in the morning on an empty stomach Orally Once a dayActive Immunizations Vaccine Route Administration Date Status Comme nts Pneumonia: Prevnar 20 Unknown 09/27/2023 Contraindicati ons z2023 Fluzone, 6mo & older, Quad PFS (0.5mL Admin)Bktwrlt73/02/2024Refused Social History Tobacco Use: Social History Observation Description Date Details (start date - stop date) Current Smoker NA - NA Tobacco Use Question Answer Notes Are you a Current smoker Additional Findings: Tobacco UserHeavy cigarette smoker (20-39 cigs/day) Problems Problem Type SNOMED Code ICD Code Onset Dates Problem Status W/U Status Risk Notes Problem Hypothyroid (22902496) Hypothyroid (E03.9 ) ActiveconfirmedProblemMixed anxiety and depressive disorder (328535917)Anxiety and depression (F41.9)ActiveconfirmedProblemBreast cancer (378314571)Breast cancer (C50.919)ActiveconfirmedProblemDiverticulitis (44064199)Diverticulitis (562.11)ActiveconfirmedProblemLumbago (698452045)Lumbago (M54.50)Activeconfirmed ProblemVitamin B12 deficiency (non anemic) (36540023)Vitamin B 12 deficiency (E53.8)ActiveconfirmedProblemOsteoporosis (72111960)Osteoporosis (M81.0)Active confirmedProblemTobacco user (721161774)Cigarette nicotine dependence without complication (F17.210)Activeconfirmed Plan Of Treatment No Information Insurance Providers Payer Name Payer Address Payer Phone Subscriber Number Group Number Insured Name Patient Relationship to Insured Coverage Start Date Coverage End Date [place] [address] [place] [phone] [id number] Del Castillo - patient is the insured[facility] [address] [address] [place] [id number], ShirleySelf - patient is the insured Medical (General) History Medical History History ICD Code Hypothyroid E03.9 Diverticulitis 562.11 Lumbago M54.50 Anxiety and depression F41.9 Breast cancer C50.919 Vitamin B 12 deficiency E53.8 Osteoporosis M81.0 Surgical History Surgery Date(Month/Year) Right breast cancer - lumpectomy with ra diation hysterectomyback surgerycholecystectomyHospitalization History Reason Date(Month/Year) surgeries
--- OUTSIDE RECORDS SUMMARY | 2025-06-24 13:02 | XMS_ITS | Encounter Summary ---
Author Organization [facility] Address [address] [place] [address] Care Team Providers Care Supervisor Order Takers Name Role Phone Gamal Mari MD Unavailable Gamal Mari MD Primary Care Provider [phone] Emmie Dela Cruz RN Unavailable [phone] Encounter Details DateTypeDepartmentCare Team (Latest Contact Info)Fijfplkgaqp73/08/2024Clinisync Result Encounter [facility] External Department Unsolicited Francisca Saenz, PA [address] [facility] [address] [place] [address] Social History Tobacco UseTypesPacks/DayYears UsedDateSmoking Tobacco: Every UlhIuivoflayi745 Smokeless Tobacco: Never Comments:11-20 cigs/day Alcohol UseStandard [...] with Friends and FamilyNot on file 08/05/2023ttends Temple ServicesNot on file08/05/2023ctive Member of Clubs or [...] hard at all02/21/2023 PHQ-2AnswerDate RecordedPatient Health Questionnaire-2 Xcpgr920Fin[facility] [place] of Occupational Health - Occupational Stress QuestionnaireAnswerDate RecordedDo you feel stress - tense, restless, nervous, or anxious, or unable to sleep at night because yourmind is troubled all the time - these days?Only a turajk4902/21/2023Exercise Vital SignAnswerDate RecordedDays of Exercise per Week [...] 1:23 PM Allyson Mcbride LPNPatient Health Questionnaire-2 Mwzgd088 1:23 PM Allyson Mcbride LPN documented as of this encounter Plan of Treatment DateTypeDepartmentCare Team (Latest Contact Info)Fdjbucqvowp38/17/2026 1:00 PM EDTOffice Visit [facility] [address] [place] [address] Cristiane Duckworth MD [address] [place] [address] documented as of this encounter Procedures Procedure NamePriorityDate/TimeAssociated DiagnosisCommentsXR DEXA AXIAL DGQKSEBN36/08/2024 10:50 AM EDT documented in this encounter Results * XR DEXA AXIAL SKELETON (12/02/2023 10:50 AM EDT)Anatomical RegionLaterality ModalityOtherSpecimen (Source)Anatomical Location / LateralityCollection Method / VolumeCollection TimeReceived Time12/02/2023 10:50 AM EDT Narrative 12/02/2023 10:53 AM EDT [facility] ?[address] ? [place], [facility] ?XRay Report ? Signed ? Patient: DEL CASTLILO,GINNY A ?MR#: [id number] ?? : 1955 ?Acct:[id number] ?? Age/Sex: 68 / F ?ADM Date: 12/02/23 ?? Loc: CT ? Attending Dr: FRANCISCA SAENZ ? Ordering Physician: FRANCISCA SAENZ ?? Date of Service: 12/02/23 ?? Procedure(s): XR DEXA axial skeleton ?? Accession Number(s): [id number] ? cc: FRANCISCA SAENZ ? [facility] ? [address] ? [place] [address] ? Patient Name: ?? GINNY DEL CASTILLO ? MRN: [facility]:[id number] ? date: 1955 ?Sex: F ?? Assigned Patient Location: CT ?? Current Patient Location: CT ?? Accession/Order Number: [id number] ?? Exam Date: 12/02/2023 ??10:10 ?Report Date: 12/02/2023 ??10:50 ? At the request of: ?? FRANCISCA SAENZ ? Procedure: ??XR DEXA axial skeleton ? EXAMINATION: XR DEXA axial skeleton ? HISTORY: Estrogen Deficiency, E 28.39 ? COMPARISON: DEXA bone densitometry 10/24/2021 ? TECHNIQUE: Dual-energy X-ray absorptiometry (DXA) was performed. ? FINDINGS: ?? FOREARM ANALYSIS: ?? Average bone mineral density is 0.553 g/cm2. ?? T-score (standard deviation relative to young adult mean): -2.3 . ?? +1.4% change since prior study. ? HIP ANALYSIS: ?? Lowest bone mineral density is within the left femoral neck, 0.701 g/cm2. ?? T-score (standard deviation relative to young adult mean): -2.4 . ?? +0.1% change since prior study. ? XR/XR DEXA axial skeleton ?? IMPRESSION: ? [employer] Organization Classification: Osteopenia - Moderate Fracture Risk ? Electronically authenticated by: BILL ??TOMEKA ?? Date: 12/02/2023 ??10:50 ? Dictated By: ?Bill Godoy M.D. ? Signed By: ?12/02/231052 ? DD/ 1050 ? TD/TT: ? Loom Operator: Procedure Note Radiology, Radiologist, - 12/02/2023 [place] [address] XRay Report Signed Patient: GNINY DEL CASTILLO [facility]#: [id number] : 1955cct:[id number] Age/Sex: 68 / FADM Date: 12/02/23 Loc: CT Attending Dr: FRANCISCA SAENZ Ordering Physician: FRANCISCA SAENZ Date of Service: 12/02/23 Procedure(s): XR DEXA axial skeleton Accession Number(s): [id number] cc: FRANCISCA SAENZ [place] [id number] Patient Name: GINNY DEL CASTILLO MRN: [id number] date: 1955 Sex: F Assigned Patient Location: CT Current Patient Location: CT Accession/Order Number: [id number] Exam Date: 12/02/2023 10:10 Report Date: 12/02/2023 [...] M.D. Signed By:12/02/23 1053 DD/ 1050 TD/TT: Loom Operator: Authorizing ProviderResult TypeResult StatusFrancisca Saenz PACLINISYNC IMAGING Final Result documented in this encounter Visit Diagnoses Not on filedocumented in this encounter Additional Health Concerns AssessmentNoted TimePHQ-9 Depression Total Score: 10:00 AM EST documented as of this encounter Care Teams Team MemberRelationshipSpecialtyStart DateEnd Date Gamal Mari MD [address] [facility] [address] [place] [address] PCP - ACO [place]01/17/23 Gamal Mari MD [address] [facility] [address] [place] [address] PCP - GeneralFamily Medicine01/28/23 Emmie Dela Cruz, YAA [address] [facility] [address] [place] [address] Registered NurseFamily Ybsyuplc47/11/232documented as of this encounter
--- OUTSIDE RECORDS SUMMARY | 2025-06-24 13:05 | XMS_ITS | CCD ---
Author Organization [facility] Care Team Providers Care Instruments Sales Representative Name Role Phone NURYS BOGGS Primary Care Physician KIMBERLEY HAMEED Admitting Unavailable JOSUÉ, KIMBERLEY Attending Unavailable AMBROSE, DR NUNO Primary Care Unavailable WEST, DR ALEXANDRO Riddle Consulting Unavailable SALAMKIMBERLEY Consulting Unavailable AMBROSE, DR NUNO Admitting Unavailable AMBROSE, DR NUNO Attending Unavailable AMBROSE, DR NUNO Primary Care Unavailable AMBROSE, DR NUNO Consulting Unavailable Zieber, Chaparro Consulting Unavailable HEMMER, DR FRANCISCA Shaikh Admitting Unavailable HEMMER, DR FRANCISCA Shaikh Attending Unavailable AMBROSE, DR NUNO Primary Care Unavailable WEST, DR ALEAXNDRO Riddle Consulting Unavailable HEMMER, DR FRANCISCA Shaikh Consulting Unavailable HEMMER, DR FRANCISCA Shaikh Admitting Unavailable HEMMER, DR FRANCISCA Shaikh Attending Unavailable AMBROSE, DR NUNO Primary Care Unavailable HEMMER, DR FRANCISCA Shaikh Consulting Unavailable HEMMER, DR FRANCISCA Shaikh Admitting Unavailable HEMMER, DR FRANCISCA Shaikh Attending Unavailable AMBROSE, DR NUNO Primary Care Unavailable ZiebChaparro branch Consulting Unavailable HEMMER, DR FRANCISCA Shaikh Consulting Unavailable Yvonne Mcghee Unavailable Nurys Boggs Primary Care Provider Nurys Boggs Unavailable [phone] Nurys Boggs MD Primary Care Provider Nurys Boggs MD Unavailable [phone] Nurys Boggs MD Primary Care Provider Rosa Shearer Attending Unavailable Rosa Shearer Admitting Unavailable Rosa Shearer Attending Unavailable Rosa Shearer Attending Unavailable Liborio Garcia Attending Unavailable Rosa Shearer Attending Unavailable Rosa Shearer Attending Unavailable Agnieszka Schafer Talal Admitting Unavaila ble Agnieszka Schafer Talal Attending Unavaila ble Agnieszka Schafer Talal Referring Unavaila ble Rosa Shearer A Admitting Unavailable Rosa Shearer Attending Unavailable Liborio Garcia Attending Unavailable AmbroseNurys graham MD Unavailable Nurys Boggs MD Primary Care Provider [phone] Emmie Dela Cruz RN Unavailable [phone] MD Nurys Boggs Primary Care Provider JAZZ Ngo Emergency Provider Sandro Horton Admitting Unavailable Sandro Horton Attending Unavailable Nurys Boggs Primary Care Unavailable Donte Leon Admitting Unavailable Donte Leon Attending Unavailable Nurys Boggs Primary Care Unavailable Nurys Boggs MD Primary Care Provider [phone] Donte Leon APRN Attending Provider NURYS BOGGS Attending Unavailable NURYS BOGGS Attending Unavailable NURYS BOGGS Referring Unavailable YULIA PRINCE Attending Unavailable FRANCISCA ROJAS Attending Unavailable CRISTIANE DUCKWORTH Attending Unavailable FRANCISCA ROJAS Attending Unavailable NURYS BOGGS Attending Unavailable FRANCISCA ROJAS Attending Unavailable NURYS BOGGS Attending Unavailable NURYS BOGGS Attending Unavailable NURYS BOGGS Attending Unavailable Ambrose Nursy SOMMERS Primary Care Provider Donte Leon APRN Attending Provider KIM HENRY Attending Unavailable ABHYANKAR, MAIKEL Referring Unavailable AMBROSE, [facility] Primary Care Unavailable ABHYANKAR, MAIKEL Referring Unavailable AMBROSE, [facility] Primary Care Unavailable ABHYANKAR, MAIKEL Referring Unavailable AMBROSE, [facility] Primary Care Unavailable ABHYANKAR, MAIKEL Referring Unavailable AMBROSE, [facility] Primary Care Unavailable ABHYANKAR, MAIKEL [...] Unavailable ABHYANKAR, MAIKEL Referring Unavailable ABHYANKAR, MAIKEL Referring Unavailable AMBROSE, RUGEN MABALAY Primary Care Unavailable ABHYANKAR, MAIKEL Referring Unavailable AMBROSE, RUGEN MABALAY Primary Care Unavailable AMBROSE, RUGEN MABALAY Primary Care Unavailable ABHYANKAR, MAIKEL Referring Unavailable AMBROSE, RUGEN MABALAY Primary Care Unavailable AMBROSE, RUGEN MABALAY Primary Care Unavailable AMBROSE, RUGEN MABALAY Primary Care Unavailable ABHYANKAR, MAIKEL Referring Unavailable AMBROSE, RUGEN MABALAY Primary Care Unavailable Jose De Jesus MON, Emmie Unavailable [phone] Allergies Allergy ClassificationReported Allergen(s)Allergy TypeDate of OnsetReaction(s) FacilityAminoketones (2 sources)buPROPionDrug Pkmxjpw26-61-9356CprpebrlnUniversity Hospitals Portage [facility] (20 sources)Barium Sulfate; Translations: [barium sulfate]Drug Jfusapg92-17-6009 Nausea and vomiting (disorder), Nausea And VomitingOhio[facility] (20 sources)buPROPion; Translations: [bupropion]Drug Aqiyatr04-39-9140Bfdaumjfo of Breath, Unknown, OtherOhiohealth Nelsonville [facility] Center [facility] (4 sources)buPROPion; Translations: [Wellbutrin]Drug Jvyxxha17-82-6988TeoqldvUlcLancaster [facility] (1 source)buPROPionDrug Upipfyo70-72-7857RuqClermont [facility] (20 sources)buPROPion; Translations: [BUPROPION HCL (SMOKING DETER)]Drug Allergy 11-74-6897SqojviyskUniversity Hospitals Portage Medical Center (1 source)buPROPionDrug Nhxizbq63-65-3264KzkpbxmkwCherrington Hospital Repository Medications Current Medications MedicationDrug Class(es)DatesSig (Normalized)Sig (Original)amylase 223592 unt / lipase 50179 unt / protease 84398 unt delayed release oral capsule (14 sources)Start: 02-22-2023 End: 96-69-8445pcsg 1 capsule by mouth three times daily at mealtimeCreon 24,000 units oral delayed release capsule = 1 cap(s), Oral, TID, with each meal., X 90 day(s), # 270 cap(s), Refills(s) 0, Pharmacy: [facility]/pharmacy #[id number], 152, cm, 02/22/23 12:18:00 EDT, Height/Length Dosing, 53.9, kg, 02/22/23 12:18:00 EDT, Weight Dosing Start Date: 02/22/23 Stop Date: 05/23/23 Status: OrderedStart: 00-08-1842Wiimj Refills(s) 0 Start Date: 11/22/22 Status: OrderedAscorbic Acid (20 sources)Vitamin CStart: 47-59-3207Xhzfggz C Daily, Refills(s) 0 Start Date: 04/25/21 Status: Orderedatropine sulfate 0.025 mg / diphenoxylate hydrochloride 2.5 mg oral tablet (20 sources)Anticholinergic, Cholinergic Muscarinic Antagonist, Antidiarrheal Start: 41-71-7562sjet 1 tablet by mouth once daily as neededDiphenoxylate- Atropine (Lomotil) 2.5-0.025 mg tablet Active 1 TAB PO Daily as needed April 19, 2025 12:00am Complies with drug therapyStart: 81-78-8123naptfplztxsii- atropine (Lomotil) 2.5-0.025 MG tablet Take 2 tablets by mouth at noon and 2 tablets in the evening. 05/06/2024 ActiveStart: 05-06-2024 End: 94-16-2142whqv 2 tablets by mouth twice dailyDiphenoxylate-Atropine (Lomotil) 2.5-0.025 mg tablet Discontinued 2 TAB PO Twice daily May 06, 2024 12:00am October 19, 2024 2:05pmAlign (8 sources)Start: 11-94-9022Dhqrf Refills(s) 0 Start Date: 06/26/23 Status: OrderedStart: 03-26-2023 End: 45-19-8710arlm 1 capsule by mouth once dailyAlign 4 mg oral capsule 4 mg = 1 cap(s), Oral, Daily, X 90 day(s), # 90 cap(s), Refills(s) 0, Pharmacy: [facility]/pharmacy #[id number], 152, cm, 03/26/23 12:48:00 EDT, Height/Length Dosing, 53.4, kg, 03/26/23 12:48:00 EDT, Weight Dosing Start Date: 03/26/23 Stop Date: 06/24/23 Status: OrderedCal/Mag 2000 Plus Vitamins C and D (20 sources)Start: 04-55-0285Phm/Mag 2000 Plus Vitamins C and D Start Date: 08/16/20 Status: OrderedCalcium (1 source)Phosphate Binder, CalciumCalcium Activecalcium carbonate 648 mg oral tablet (20 sources)Start: 25-07-6012xvrt 1 tablet by mouth once dailyCalcium Carbonate 260 mg calcium (648 mg) tablet Active 260 MG PO Daily April 19, 2025 12:00am Complies with drug therapycalcium carbonate (CALCIUM 500 ORAL) Take by mouth. Activecalcium carbonate (CALCIUM 500 ORAL) Take by mouth. 0 ActiveComment on above:Take by mouth.Fiber Tab (6 sources)Start: 99-10-1009Oewgk Tabs Refills(s) 0 Start Date: 06/26/23 Status: ZvbeeqsYnyepqk-Adevfviokf-Rtaxfcy D (CALCIUM GUMMIES PO) (20 sources)take 2 doses by mouth once daily as borcoeFnnpoou-Lfiyitvzju-Isewits D (CALCIUM GUMMIES PO) Take 2 each by mouth Daily as needed 500mg gummies Active celecoxib 100 mg oral capsule (1 source)Nonsteroidal Anti-inflammatory DrugStart: 71-73-4976Ixkpnhupw 100 mg capsule Active 100 MG PO April 19, 2025 12:00am Complies with drug therapy cephalexin 500 mg oral capsule (2 sources)Cephalosporin AntibacterialStart: 46-29-7470rjhz 1 capsule by mouth every eight hoursCephalexin 500 MG 1 capsule Orally every 8 hrs for 7 days Jan, Activetake 1 capsule by mouth every twelve hoursCephalexin 500 MG 1 capsule Orally every 12 hrs Not-TakingchlordiazePOXIDE hydrochloride 5 mg / clidinium bromide 2.5 mg oral capsule (11 sources)Anticholinergic, BenzodiazepineStart: 58-52-3569Bracdk 5 mg-2.5 mg Cap 2 cap(s), Oral, TIDAC, 60 cap(s), Refill(s) 3, [facility]/pharmacy #[id number], 152, cm, 01/25/22 13:43:00 EDT, Height/Length Dosing, 54, kg, 01/25/22 13:43:00 EDT, Weight Dosing Start Date: 01/25/22 Status: Orderedcholecalciferol 0.01 mg oral capsule (20 sources)Vitamin DStart: 09-45-3382xmaz 1 capsule by mouth once daily Cholecalciferol (Vitamin D3) 10 mcg (400 unit) capsule Active 10 MCG PO Daily April 19, 2025 12:00am Complies with drug therapytake 1 capsule by mouth once dailyCholecalciferol, Vitamin D3, (VITAMIN D) 1,000 unit cap Take 1,000 Units by mouth once daily. ActiveComment on above:Take 1,000 Units by mouth once daily. cholestyramine resin 4000 mg powder for oral suspension (17 sources)Bile Acid SequestrantStart: 97-49-5876kkvixdbblhjxwo 4 g/9 g Oral Pwdr Refill(s) 0 Start Date: 10/11/23 Status: OrderedStart: 10-11-2023 cholestyramine 4 g/9 g Oral Pwdr Refill(s) 0 Start Date: 10/11/23 Status: Ordered Start: 06-26-2023 End: 56-48-7635lsyj 4 g by mouth once dailyQuestran 4 g/9 g oral powder 4 gm, Oral, Daily, dissolve in water or juice, X 90 day(s), # 60 EA, Refills(s) 0, Pharmacy: [facility]/pharmacy #[id number], 152, cm, 06/26/23 12:45:00 EDT, Height/Length Dosing, 53.3, kg, 06/26/23 12:45:00 EDT, Weight Dosing Start Date: 06/26/23 Stop Date: 09/24/23 Status: OrderedStart: 06-19-2022 End: 83-90-0572Aufanvyl 4 g/9 g oral powder 1/4 packet, Oral, Daily, X 90 day(s), # 60 EA, Refills(s) 1, Pharmacy:[facility]/pharmacy #[id number], 152, cm, 06/19/22 12:56:00 EDT, Height/Length Dosing, 53.5, kg, 06/19/22 12:56:00 EDT, Weight Dosing Start Date: 06/19/22 Stop Date: 12/16/22 Status: OrderedStart: 04-25-2021 Questran 4 g/9 g oral powder = 1 packet(s), Oral, Daily, # 30 EA, Refills(s) 11, Pharmacy: [facility]/pharmacy #[id number], 152, cm, 04/25/21 8:50:00 EDT, Height/Length Dosing, 52, kg, 04/25/21 8:50:00 EDT, Weight Dosing Start Date: 04/25/21 Status: OrderedStart: 45-29-7580Xbohgedj 4 g/9 g oral powder = 1 packet(s), Oral, Daily, # 30 EA, Refills(s) 11, [id number], cm, 04/25/21 8:50:00 EDT, Height/Length Dosing, 52, kg, 04/25/21 8:50:00 EDT, Weight Dosing Start Date: 04/25/21 Status: Orderedciprofloxacin 500 mg oral tablet (1 source)Quinolone AntimicrobialStart: 04-17-2022 End: 62-12-1960chiz 1 tablet by mouth twice dailyCipro 500 mg Tab 500 mg = 1 tab(s), Oral, BID, X 10 day(s), # 20 tab(s), Refills(s) 0, Pharmacy: [facility] /pharmacy #[id number], 152, cm, 04/17/22 12:23:00 EDT, Height/Length Dosing, 52.9, kg, 04/17/22 12:23:00 EDT, Weight Dosing Start Date: 04/17/22 Stop Date: 04/27/22 Status: Orderedcolesevelam hydrochloride 625 mg oral tablet (1 source)Bile Acid SequestrantStart: 06-63-7059phtt 3 tablets by mouth twice dailyWelchol 625 mg Tab 1,875 mg = 3 tab(s), Oral, BID, # 180 tab(s), Refills(s) 0, Pharmacy: [facility]/pharmacy #[id number], 152, cm, 04/06/24 12:35:00 EDT, Height/Length Dosing, 56, kg, 04/06/24 12:35:00 EDT, Weight Dosing Start Date: 04/06/24 Status: Orderedcyclobenzaprine hydrochloride 5 mg oral tablet (2 sources)Muscle RelaxantStart: 42-89-5719Gxwheykikfiweec 5 mg tablet Active 5 MG PO .prn as needed October 19, 2024 1:00am Complies with drug therapy1 ml denosumab 60 mg/ml prefilled syringe (20 sources)RANK Ligand InhibitorStart: 03-23-7300Yjhvjtejd (Prolia) 60 mg/mL syringe Active 60 MG SUBCUT EVERY 6 MONTHS April 19, 2025 12:00am Complies with drug therapyStart: 09-17-2024 End: 50-54-9098mqjfwchbs (Prolia) injection 60 mgStart: 09-17-2024 End: 79-60-9620wkwldf 60 mg by subcutaneous injection once60 mg, Subcutaneous, Once, On [place] 09/17/24 at 1500, For 1 doseStart: 09-17-2024 End: 11-95-9338niwmuuhct (Prolia) injection 60 mgStart: 09-17-2024 End: 69-60-0289weznrx 60 mg by subcutaneous injection once60 mg, Subcutaneous, Once, On [place] 09/17/24 at 1500, For 1 dosedicyclomine hydrochloride 10 mg oral capsule (20 sources)AnticholinergicStart: 01-25-2022 End: 18-02-4292ehzv 1 mg by mouth four times dailydicyclomine 10 mg Cap mg cap(s), Oral, QID, Refills(s) 0 Start Date: 01/25/22 Status: OrderedStart: 34-70-7586bzhf 1 tablet by mouth every eight hoursDicyclomine HCl 20 MG 1 tablet Orally THREE TIMES A DAY for 30 day(s) Feb, Not-TakingDULoxetine 60 mg delayed release oral capsule (20 sources)Serotonin and Norepinephrine Reuptake InhibitorStart: 08-10-2024 End: 43-16-5010otja 1 capsule by mouth twice dailyDULoxetine (CYMBALTA) 60 mg capsule Take 60 mg by mouth two times a day. 08/10/2024 08/10/2025 ActiveStart: 07-07-2024 End: 56-39-4932pxpp 1 capsule by mouth onceDuloxetine 60 mg capsule,delayed release(DR/EC) Active 60 MG PO Once July 28, 2024 1:00am Complies with drug therapyenzymes,digestive (DIGESTIVE ENZYMES ORAL) (20 sources)enzymes,digestive (DIGESTIVE ENZYMES ORAL) Take by mouth. Active enzymes,digestive (DIGESTIVE ENZYMES ORAL) Take by mouth. 0 ActiveComment on above:Take by mouth.Extra Strength Tylenol Aches and Strains (20 sources)Start: 27-13-7799iozi 1 tablet by mouth every six hoursExtra Strength Tylenol Aches and Strains 1 tablet, Oral, q6hr Pain, Refill(s) 0 Start Date: 11/25/18 Status: Orderedhyoscyamine sulfate 0.125 mg oral tablet (14 sources)Start: 33-96-6771gxwf 1 tablet by mouth four times daily as needed for muscle spasmsLevsin 0.125 mg SL Tab 0.125 mg = 1 tab(s), Oral, QID, PRN for spasm, # 40 tab(s), Refills(s) 0, Pharmacy: [facility]/pharmacy #[id number], 152, cm, 04/06/24 12:35:00 EDT, Height/Length Dosing, 56, kg, 04/06/24 12:35:00 EDT, Weight Dosing Start Date: 04/06/24 Status: OrderedStart: 10-06-2020 End: 97-22-2424ubdp 1 tablet by mouth once dailyHyoscyamine Sulfate 0.375 mg tablet extended release 12 hr Discontinued 0.375 MG PO Daily October 06, 2020 1:00am March 12, 2024 2:53pmStart: 90-15-0174gbdh 1 mg by mouth every twelve hourshyoscyamine 0.375 mg ER Tab mg tab(s), Oral, q12hr, Refills(s) 0 Start Date: 01/25/22 Status: Orderedlevothyroxine sodium 0.05 mg oral tablet (20 sources)l-ThyroxineStart: 74-42-7568Njpnrhweokhbb 50 mcg tablet Active 50 MCG PO Daily March 12, 2024 12:00am Mondays and take 75mcg. All other days 50mcg Complies with drug therapyStart: 13-86-6322cgcscqphygjaa (SYNTHROID) 50 mcg tablet Take 50 mcg by mouth once daily. 75mcg 2 days a week 02/07/2023 ActiveStart: 54-42-4192euzs 1 tablet by mouth once daily in the morning levothyroxine 50 mcg (0.05 mg) Tab TAKE 1 TABLET BY MOUTH ONCE EVERY MORNING ON AN EMPTY STOMACH Start Date: 10/10/22 Status: OrderedLevothyroxine Sodium Active Comment on above:take 1 tablet by mouth every day in the morning on empty stomachTake 50 mcg by mouth once daily. 75mcg 2 days a weekloperamide hydrochloride 2 mg oral capsule (20 sources)Opioid AgonistStart: 78-31-5556yyurperkwx (IMODIUM) 2 mg cap(s) every other day. 2 04/04/2019 ActiveStart: 04-03-2019 End: 90-21-9639ihub 1 capsule by mouth once daily as needed for diarrhea Loperamide 2 mg capsule Discontinued 2 MG PO Daily as needed for Diarrhea October 06, 2020 1:00am March 12, 2024 2:53pmComment on above:every other day. mecobalamin (3 sources)Start: 78-48-4389Fjarxjipnyp (Vitamin B12) Active MCG IM March 12, 2024 12:00amMecobalamin (Vitamin B12) 10,000 mcg recon soln (2 sources)Start: 62-07-0979rrqrrm 72507 ug by intramuscular injection every monthMecobalamin (Vitamin B12) 10,000 mcg recon soln Active 94061 MCG IM every month March 12, 2024 12:00am Complies with drug therapyStart: 54-23-7428rlgfjy 93386 ug by intramuscular injection every monthMecobalamin (Vitamin B12) 10,000 mcg recon soln Active 91341 MCG IM every month March 11, 2024 11:00pm methylPREDNISolone (4 sources)CorticosteroidStart: 71-11-0052myxzlsGEUYITTetrft (Medrol Dospak) 4 MG tablets Indications: Effusion of left knee Follow schedule on package instructions 21 tablet 05/12/2024 ActiveMultivitamin preparation (1 source)Multivitamin ActivePatient Specific Meds (7 sources)Start: 03-12-1255Noaxyrb Specific Meds OTC- Pancreatic digestive enzymes. Creon was too expensive. Start Date: 03/26/23 Status: OrderedpredniSONE 10 mg oral tablet (2 sources)Start: 12-07-2024 End: 60-55-4682zxuv 4 tablets by mouth once daily, then take 3 tablets by mouth once daily, then take 2 tablets bymouth once daily, then take 1 tablet by mouth once dailypredniSONE (Deltasone) 10 MG tablet Indications: Acute strain of neck muscle, initial encounter Take 4 tablets (40 mg) by mouth Daily for 4 days, THEN 3 tablets (30 mg) Daily for 4 days, THEN 2 tablets (20 mg) Daily for 4 days, THEN 1 tablet (10 mg) Daily for 4 days. 40 tablet 12/07/2024 5Active Probiotic Product (ALIGN PO) (20 sources)Start: 23-17-6200monr 1 tablet by mouth once dailyProbiotic Product (ALIGN PO) Take 1 tablet by mouth Daily 06/26/2023 ActiveStart: 70-69-0799yqvs 1 tablet by mouth in the morningProbiotic Product (ALIGN PO) Take 1 tablet by mouth in the morning. 06/26/2023 Activesertraline 50 mg oral tablet (20 sources)Serotonin Reuptake InhibitorStart: 11-17-2018 End: 95-43-7512hqcv 1 tablet by mouth once daily in the morning, then take 0.5 tablet by mouth in the eveningsertraline (Zoloft) 50 MG tablet Indications: Major depressive disorder, single episode, unspecified Take 1 tablet (50 mg) by mouth Daily TAKE ON TAB IN THE AM AND 0.5 TAB IN THE EVENING 100 tablet Activetake 1 tablet by mouth once dailysertraline (ZOLOFT) 25 mg tablet Take 25 mg by mouth once daily. ActiveComment on above:Take 50 mg by mouth once daily.tiZANidine 4 mg oral tablet (20 sources)Central alpha-2 Adrenergic AgonistStart: 08-05-2023 End: 35-17-2826dncz 1 tablet by mouth every eight hours for muscle spasms tiZANidine (Zanaflex) 4 MG tablet Indications: Back pain of lumbar region with sciatica Take 1 tablet (4 mg) by mouth every 8 (eight) hours if needed for muscle spasms 30 tablet 2 12/07/2024 ActiveVitamin D3 (20 sources)Start: 56-23-6243Llgdniz D3 Refills(s) 0 Start Date: 04/25/21 Status: Ordered Completed/Discontinued Medications MedicationDrug Class(es)DatesSig (Normalized)Sig (Original)acetaminophen 325 mg / HYDROcodone bitartrate 5 mg oral tablet (6 sources)Opioid AgonistStart: 10-06-2020 End: 10-76-2845ujid 1 tablet by mouth twice daily as needed for painHydrocodone- Acetaminophen 5-325 mg tablet Discontinued 1 TAB PO Twice daily as needed for Pain October 06, 2020 1:00am March 12, 2024 2:53pmdiazePAM 5 mg oral tablet (6 sources)BenzodiazepineStart: 10-20-2020 End: 14-92-9035vazh 1 tablet by mouth every eight hours as needed for muscle spasmsDiazepam (Valium) 5 mg tablet Discontinued 5 MG PO Every 8 hours as needed for muscle spasm 30 October 20, 2020 1:00am March 12, 2024 2:52pm meloxicam 15 mg oral tablet (1 source)Nonsteroidal Anti-inflammatory DrugStart: 52-10-5425fkrk 1 tablet by mouth every twenty-four hoursMeloxicam 15 MG 1 tablet Orally Once a day for 30 day(s) Jan, Not-TakingoxyCODONE hydrochloride 10 mg oral tablet (7 sources)Opioid AgonistStart: 15-72-0411ouum 1 tablet by mouth every six hours oxyCODONE HCl 10 MG 1 tablet as needed Orally every 6 hrs for 14 days Nov, Not-TakingStart: 10-20-2020 End: 13-78-9552fwim 1 tablet by mouth every four hours as needed for pain Oxycodone 5 mg tablet Discontinued 5 MG PO Q4H as needed for pain 70 October 20, 2020 March 12, 2024 2:53pmSod Picosulf-Mag Ox-Citric Ac (3 sources)Start: 06-09-2024 End: 91-02-7100Ast Picosulf-Mag Ox-Citric Ac (Clenpiq) 10 mg-3.5 gram- 12 gram/175 mL solution Discontinued 175 MLPO .COMPLEX 350 June 09, 2024 12:00am June 29, 2024 10:42am Follow instructions given by officeStart: 06-09-2024 End: 37-96-3157Fpz Picosulf-Mag Ox-Citric Ac (Clenpiq) 10 mg-3.5 gram- 12 gram/175 mL solution Discontinued 175 MLPO .COMPLEX 350 June 08, 2024 11:00pm June 29, 2024 9:42am Follow instructions given byofficeStart: 82-69-2064Lux Picosulf-Mag Ox-Citric Ac (Clenpiq) 10 mg-3.5 gram- 12 gram/175 mL solution Active 175 ML PO .COMPLEX 350 June 09, 2024 12:00am Follow instructions given by Enrique (2 sources)CorticosteroidStart: 39-32-4543BEBVBMW - 10 mg Mar, 40 mg Start: 52-82-8655Fmqvmqv -40 mg December, 40 mgvitamin b12 1 mg/ml injectable solution (20 sources)Vitamin Y78Teksl: 04-20-2025 End: 99-45-5026zoydqx 1 dose by intramuscular injection once1,000 mcg, INTRAMUSCULAR, ONCE, 1 dose, On Sat04/20/25 at 1430Start: 03-22-2025 End: 92-18-0821wiwjzi 1 dose by intramuscular injection once1,000 mcg, INTRAMUSCULAR, ONCE, 1 dose, On Sat03/22/25 at 1400Start: 01-25-2025 End: 92-74-4394ibkcgc 1 dose by intramuscular injection once1,000 mcg, INTRAMUSCULAR, ONCE, 1 dose, On Sat01/25/25 at 1430Start: 12-28-2024 End: 06-38-4648trvzge 1 dose by intramuscular injection once1,000 mcg, INTRAMUSCULAR, ONCE, 1 dose, On Sat12/28/24 at 1400Start: 11-30-2024 End: 87-50-7885ckcngm 1 dose by intramuscular injection once1,000 mcg, INTRAMUSCULAR, ONCE, 1 dose, On Sat11/30/24 at 1400Start: 11-02-2024 End: 30-65-4637jyuagq 1 dose by intramuscular injection once1,000 mcg, INTRAMUSCULAR, ONCE, 1 dose, On Sat11/02/24 at 1430Start: 10-13-2024 End: 78-71-0041astpvp 1 dose by intramuscular injection once1,000 mcg, INTRAMUSCULAR, ONCE, 1 dose, On Sat10/13/24 at 1400Start: 09-07-2024 End: 60-06-8086hoxucl 1 dose by intramuscular injection once1,000 mcg, INTRAMUSCULAR, ONCE, 1 dose, On Sat09/07/24 at 1430Start: 08-11-2024 End: 97-22-9908snmpmj 1 dose by intramuscular injection once1,000 mcg, INTRAMUSCULAR, ONCE, 1 dose, On Sat08/11/24 at 1430Start: 07-13-2024 End: 39-89-1169walcjq 1 dose by intramuscular injection once1,000 mcg, INTRAMUSCULAR, ONCE, 1 dose, On Sat07/13/24 at 1400Start: 06-15-2024 End: 79-68-3802ayjqub 1 dose by intramuscular injection once1,000 mcg, INTRAMUSCULAR, ONCE, 1 dose, On Sat06/15/24 at 1430Start: 05-18-2024 End: 45-91-7862aonivi 1 dose by intramuscular injection once1,000 mcg, INTRAMUSCULAR, ONCE, 1 dose, On Sat05/18/24 at 1330Start: 04-20-2024 End: 98-93-1876tfkieg 1 dose by intramuscular injection once1,000 mcg, INTRAMUSCULAR, ONCE, 1 dose, On Sat04/20/24 at 1400Start: 03-23-2024 End: 39-08-6334ihctifpavlfoaf 1,000 mcg injectionStart: 01-30-2024 End: 00-75-8580cjwxfgjpppqdxn 1,000 mcg injectionStart: 01-02-2024 End: 27-31-0985pycqwirpjrtiti 1,000 mcg injectioncyanocobalamin (Vitamin B-12) 1000 MCG/ML injection Activecyanocobalamin (Vitamin B-12) 1000 MCG/ML injection 1 mL Injection monthly Active Problems Active Problems Problem ClassificationProblemDateDocumented DateEpisodic/Chronic Administrative/social admission (20 sources)Seen by pain management eekexjr76-20-7175PfysojjpNyijlww on above: for backfor backAnxiety disorders (20 sources)Anxiety; Translations: [Anxiety disorder, unspecified]Onset: [id number] of breast (20 sources)Carcinoma of breast ; Translations: [Malignant tumor of breast ] Onset: [id number] on above:rightrightCardiac dysrhythmias (1 source)Tachycardia; Translations: [Tachycardia, unspecified]07-31-2023 EpisodicChronic obstructive pulmonary disease and bronchiectasis (20 sources)Emphysematous bronchitis; Translations: [Chronic obstructive pulmonary disease, unspecified]Onset: 08-12-2018 Resolved: [id number] of lipid metabolism (20 sources)Hypertriglyceridemia; Translations: [Pure hyperglyceridemia]Onset: [id number] and diverticulitis (20 sources)Diverticular disease; Translations: [Diverticulosis of intestine, part unspecified, without perforation or abscess without bleeding]Onset: 12-20-2015 Resolved: 160013-96-2515UgnknxxOqjhbgn and fatigue (1 source)Fatigue; Translations: [Chronic fatigue, unspecified]62-26-6245Rtbwyui Menopausal disorders (20 sources)Decreased estrogen level; Translations: [Other primary ovarian failure]Onset: 147505-84-5769NhxtjkwOhli disorders (20 sources)Depressive disorder; Translations: [Depression]Onset: 03-07-2021 Resolved: 603557-31-4944KqklbinGbdvzf and vomiting (1 source)Nausea; Translations: [Nausea]EpisodicNoninfectious gastroenteritis (18 sources)Noninfectious enteritis; Translations: [Noninfective gastroenteritis and colitis, unspecified]Onset: 05-33-4147WfuczsirHxlvwktxchn deficiencies (2 sources)Vitamin D deficiency; Translations: [Vitamin D deficiency, unspecified]93-23-4712SeoakodUyubvkwfuwgaxp (20 sources)Arthritis; Translations: [Unspecified osteoarthritis, unspecified site]Onset: 401972-95-8141WmtcawrOyrbvuqsivmt (20 sources)Osteoporosis; Translations: [Age-related osteoporosis without current pathological fracture]Onset: 464845-20-2058AishrsbWcauj and unspecified benign neoplasm (1 source)Polyp of colon; Translations: [Benign neoplasm of colon]06-09-2024 EpisodicOther connective tissue disease (4 sources)Muscle spasm of cervical muscle of neck; Translations: [Other muscle spasm]91-35-7454OrhavsgtJrwyy gastrointestinal disorders (20 sources)Irritable bowel syndrome with diarrhea; Translations: [Irritable bowel syndrome with diarrhea]Onset: 88-86-7923EkqzkbqEadhu gastrointestinal disorders (8 sources)Intestinal malabsorption; Translations: [Other intestinal malabsorption]Onset: 30-16-4187HvymwrxVlcnr gastrointestinal disorders (1 source)Irritable bowel syndrome; Translations: [Irritable bowel syndrome without diarrhea]ChronicOther gastrointestinal disorders (8 sources)Irritable bowel syndrome with diarrhea; Translations: [Irritable bowel syndrome]69-81-0508VejtjpmNnvrf gastrointestinal disorders (20 sources)Bile acid malabsorption syndrome; Translations: [Other intestinal malabsorption]Onset: 220018-17-3726WrhlxthXlzxk gastrointestinal disorders (2 sources)Other intestinal malabsorption; Translations: [Other specified intestinal malabsorption]Onset: 416415-33-3059LrmlqxtXqbyv gastrointestinal disorders (2 sources)Disorder of intestine; Translations: [Other specified diseases of intestine]Onset: 36-55-1144OqtpipanSpxuz gastrointestinal disorders (20 sources)Non-infective cqaiyorp26-98-8363VpcjyvzvFezjy gastrointestinal disorders (1 source)Diarrhea; Translations: [Diarrhea, unspecified]EpisodicOther gastrointestinal disorders (1 source)Urgent desire for stool; Translations: [Fecal urgency]EpisodicOther gastrointestinal disorders (1 source)Abdominal bloating; Translations: [Abdominal distension (gaseous)] EpisodicOther gastrointestinal disorders (2 sources)Abnormal feces; Translations: [Other fecal abnormalities]Onset: 91-98-0021RvdaokgsDldsu liver diseases (20 sources)Steatosis of liver; Translations: [Fatty (change of) liver, not elsewhere classified]Onset: 305712-10-5604HlcyjayDkjed liver diseases (3 sources)Fatty (change of) liver, not elsewhere classified; Translations: [Other chronic nonalcoholic liver disease]75-67-9584BujahimRqqqu nervous system disorders (1 source)Chronic pain; Translations: [Other chronic pain]ChronicOther non- traumatic joint disorders (2 sources)Effusion of joint of left knee; Translations: [Effusion, left knee] 21-81-7497CayragezJxbuynsb codes; unclassified (8 sources)Family history of malignant neoplasm of digestive organ; Translations: [Family history of malignantneoplasm of digestive organs]Onset: 02-41-4284EmtktlmsBygwnysv codes; unclassified (1 source)Family history of malignant neoplasm of digestive organs; Translations: [Family history of malignant neoplasm of gastrointestinal tract] 91-33-2413HtjowcyiWknc and subcutaneous tissue infections (1 source)Cellulitis of right fingerEpisodicSpondylosis; intervertebral disc disorders; other back problems (20 sources)Inflammation of sacroiliac joint; Translations: [Sacroiliitis, not elsewhere classified]Onset: 457218-32-0405SrpukdyNrzjebs on above:Problem List clean-up per request of Phys. EHR CmteSubstance-related disorders (20 sources)Smoker; Translations: [Nicotine dependence, cigarettes, uncomplicated]Onset: 11-30-2022 Resolved: 653066-14-9969CflkryeViveryp on above:Added secondary to documentation in Social History.Added secondary to documentation in Social History.Thyroid disorders (20 sources)Nontoxic goiter, unspecified; Translations: [Hypothyroidism, unspecified]Onset: 84-41-0655PwglcxcLbhhwueqymus (20 sources)Asymptomatic microscopic -83-5944Wmwxtajhqxzl (20 sources)Finding of sensation of ljdouuo51-53-8753Xjlvmkfqttim (20 sources)Patient on antidepressant monitoring planOnset: Past or Other Problems Problem ClassificationProblemDateDocumented DateEpisodic/ChronicAbdominal pain (20 sources)Lower abdominal pain; Translations: [Lower abdominal pain, unspecified]Onset: 01-24-2022 Resolved: 34-55-3082BovioxfpJccl; stupor; and brain damage (20 sources)Daytime somnolence; Translations: [Somnolence]Onset: 03-17-2024 43-25-1459NngsqzegOwqnaeslcu and other anemia (20 sources)Anemia; Translations: [Anemia, unspecified]Onset: 03-13-2023 Resolved: 739494-79-1336NixzjcemHtoufremid and other anemia (20 sources)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 B>12< deficiency; Translations: [Other megaloblastic anemias, not elsewhere classified]Onset: 03-13-2023 22-90-5949RjknfcxqWfsnrbxosq and other anemia (1 source)Anemia, unspecified; Translations: [Anemia, unspecified type]Onset: 60-65-7728EruocnewBfloqmyzdi and other anemia (1 source)Other megaloblastic anemias, not elsewhere classified; Translations: [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 deficiency]Onset: 65-93-8198MevdtlfyF Codes: Fall (20 sources)Fall in home; Translations: [Unspecified fall, initial encounter] Onset: 134911-85-2441JiqkrijxSthbcpbhhpulk symptoms and ill-defined conditions (20 sources)Microscopic hematuria; Translations: [Other microscopic hematuria] Onset: 888696-07-5968IfpzpedtBkxutqtqnfk (20 sources)Internal hemorrhoids; Translations: [Other hemorrhoids]Onset: 822050-13-8665VjkuujqlGhrgiinfbbkpu and screening for infectious disease (20 sources)Autoantibody titer positive; Translations: [Other specified abnormal immunological findings in serum]Onset: 771411-18-7954XshsniijMxhqcvvfxe infection (20 sources)Small bowel bacterial overgrowth syndrome; Translations: [Small intestinal bacterial overgrowth (SIBO)]Onset: 326662-93-8277Roophcrn Malaise and fatigue (20 sources)Fatigue; Translations: [Other fatigue]Onset: 499294-83-1073 EpisodicComment on above:Problem List clean-up per request of Phys. EHR CmteMood disorders (20 sources)Mood disordersOnset: 277205-40-7521Gqfkwbavvdc deficiencies (20 sources)Vitamin B deficiency; Translations: [Deficiency of other specified B group vitamins]Onset: 52-42-0033SarumzsbDedlb and unspecified benign neoplasm (20 sources)Polyp of colon; Translations: [Polyp of colon]Onset: 01-28-2023 Resolved: 844807-99-7948JluoteypNmqop and unspecified benign neoplasm (20 sources)History of polyp of colon; Translations: [Personal history of colonic polyps]Onset: 80-66-5487WkunhzwjCtqdv bone disease and musculoskeletal deformities (20 sources)Arrest of bone development AND/OR growth; Translations: [Other disorders of bone development and growth, unspecified site]Onset: 12-20-2015 72-81-7657HxrqjvqkWnuzg bone disease and musculoskeletal deformities (20 sources)Osteopenia; Translations: [Other specified disorders of bone density and structure, multiple sites]Onset: 096280-36-5975EuhtvfiyFlqgc connective tissue disease (20 sources)Muscle pain; Translations: [Myalgia, unspecified site]Onset: 439207-03-7724WckolxpvBdbwd connective tissue disease (20 sources)Fibromyalgia; Translations: [Fibromyalgia]Onset: 07-07-2024 38-11-1515SjbpsxrvBkfyz connective tissue disease (20 sources)Pain of left hand; Translations: [Pain in left hand]Onset: 159315-85-8677SdcyypknIakfk ear and sense organ disorders (20 sources)Pain of ear structure; Translations: [Otalgia, right ear]Onset: 09-05-2023 Resolved: 470311-78-3384HefnucxgReqgx gastrointestinal disorders (20 sources)Loose stool; Translations: [Other fecal abnormalities]Onset: 052548-75-9183WqmxhdknWoedw liver diseases (20 sources)Decreased lipoprotein; Translations: [Abnormal levels of other serum enzymes]Onset: 013607-78-0944FkbganyqJmnnt lower respiratory disease (20 sources)Multiple nodules of lung; Translations: [Other nonspecific abnormal finding of lung field]Onset: 847033-10-0172VzwvowtbRooyj non-traumatic joint disorders (20 sources)Pain in left knee; Translations: [Pain in joint, lower leg]Onset: 497936-83-9790EbyofripGbbnc screening for suspected conditions (not mental disorders or infectious disease) (20 sources)Imaging of abdomen abnormal; Translations: [Abnormal findings on diagnostic imaging of other abdominal regions, including retroperitoneum]Onset: 11-28-9699IqcmrzbbGftyt skin disorders (1 source)Nonscarring hair loss, unspecified; Translations: [NONSCARRING HAIR LOSS UNSPECIFIED]Onset: 74-51-3118KxpgwsxgUofqn upper respiratory infections (20 sources)Viral upper respiratory tract infection; Translations: [Acute upper respiratory infection, unspecified]Onset: 09-05-2023 Resolved: 858833-40-9364MfuzbphbVyudsvaivl disorders (not diabetes) (20 sources)Disorder of pancreas; Translations: [Other specified diseases of pancreas]Onset: 71-46-9003PecumpbjFccldijv codes; unclassified (20 sources)Family history of cancer of colon; Translations: [Family history of malignant neoplasm of digestiveorgans]Onset: 167935-20-4786Ddaklxtg Residual codes; unclassified (20 sources)Postmenopausal state; Translations: [Asymptomatic menopausal state] Onset: 724736-71-5271GwxclspqQeqkczjd codes; unclassified (20 sources)History of right mastectomy; Translations: [Acquired absence of right breast and nipple]Onset: 210294-97-4171TfnhugocCzukppdhhmv; intervertebral disc disorders; other back problems (20 sources)Lumbago with sciatica; Translations: [Lumbago with sciatica, unspecified side]Onset: 207152-30-9181FvjytbtoUhhmxbw and strains (20 sources)Strain of neck muscle; Translations: [Strain of muscle, fascia and tendon at neck level, initial encounter]Onset: 662420-51-0518Ujojwocd Superficial injury; contusion (20 sources)Contusion of left knee; Translations: [Contusion of left knee, initial encounter]Onset: 291909-09-5685Zdpizubo Results Test NameValueInterpretationReference RangeFacilityCNNURSEon 45-89-7413SIBXRPC Nurse Visit (HEMASA) IVONNE CESPEDES ([id number]) 1955 F Date Time Provider Department 04/20/25 2:00 PM [facility] NURSE ERVIN KENNEDY LILIAMMAMI During your visit today, we recorded the following information about you: Temperature Pulse Blood pressure 97.7 degrees 93/minute 110/74 Shirley Pierre MA 04/20/2025 2:12 PM Signed Patient Identification confirmed: yes. Injection given and documented on OCT per provider order. Shirley Pierre MA Referring Provider: MAIKEL LUNSFORD [[id number]] Allergies As of Date: 04/20/2025 Noted Allergy Reaction BUPROPION 12/22/2004 12 - Shortness of Breath ZYBAN (BUPROPION HCL (SMOKING DET*11/07/2018 12 - Shortness of Breath Date Reviewed: 04/20/2025 Reviewed by: Shirley Pierre MA - Fully Assessed Primary Visit Diagnosis:Anemia, unspecified type [D64.9] Other Visit Diagnosis: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 deficiency [D53.1] Order(s):TREATMENT PARAMETER-NOT NEEDED [8694551] Order #: [id number]: 1 BCN NURSING COMMUNICATION [[id number]] Order #: [id number]: 1 STANDING cyanocobalamin 1,000 mcg injectionDisp: Rfl: Prescriptions as of 04/20/2025 - DULoxetine (CYMBALTA) 60 mg capsule Take 60 mg by mouth two times a day. - levothyroxine (SYNTHROID) 50 mcg tablet Take 50 mcg by mouth once daily. 75mcg 2 days a week - enzymes,digestive (DIGESTIVE ENZYMES ORAL) Take by mouth. - loperamide (IMODIUM) 2 mg cap(s) every other day. - sertraline (ZOLOFT) 25 mg tablet Take 25 mg by mouth once daily. - calcium carbonate (CALCIUM 500 ORAL) Take by mouth. - Cholecalciferol, Vitamin D3, (VITAMIN D) 1,000 unit cap Take 1,000 Units by mouth once daily. 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 Anemia [D64.9] 03/13/2023 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 deficie*03/13/2023 Prescriptions ordered this encounter Disp Refills Start End CYANOCOBALAMIN (VIT B-12) 1,000 MCG/* 04/20/2025 04/20/2025 Route: IM Encounter Status:Closed by November on 04/20/25[facility] CBC WITH AUTO DIFFon 60-20-7352NSOIMOBRK ABSOLUTE AUTO0.1NOMS HealthcareBasophils/100 WBC (Bld)0.9 %0.2 - 2.0 %NOMS HealthcareEosinophils/100 WBC (Bld)4.7 %0.9 - 7.0 %NOMS HealthcareErythrocyte distribution width (RBC) [Ratio]13.9 %11.0 - 15.0 %NOM HealthcareHematocrit (Bld) [Volume fraction]37.2 %36.0 - 48.0 %NOM HealthcareHemoglobin (Bld) [Mass/Vol]12.2 g/dL12.0 - 16.0 g/dLNOOR HealthcareIMMATURE GRANULOCYTES ABS AUTO0.01NOMS HealthcareImmature granulocytes/100 WBC (Bld)0.2 %0.0 - 0.5 %NOMS HealthcareLYMPHOCYTES ABSOLUTE AUTO1.8NOMS HealthcareLymphocytes/100 WBC (Bld)27.9 %20.5 - 60.0 %[facility] CenterMCH (RBC) [Entitic mass]28.8 pg26.7 - 34.0 pgNOMercy Hospital JoplinHC (RBC) [Mass/Vol]32.8 g/dL29.9 - 35.2 g/dLMissouri Baptist Medical CenterMCV (RBC) [Entitic vol]87.9 fL 81.0 - 99.0 fLNOChildren's Mercy NorthlandMONOCYTES ABSOLUTE AUTO0.6[facility] Monocytes/100 WBC (Bld)9.6 %1.7 - 12.0 %NOMS HealthcareNEUTROPHILS ABSOLUTE AUTO 3.6NOMS HealthcareNeutrophils/100 WBC (Bld)56.7 %43.0 - 75.0 %[facility]S [facility] Platelet mean volume (Bld) [Entitic vol]9.8 fL9.5 - 13.5 fLNOMS [facility] ToledoTB EO #0.3NOMS HealthcareTB [id number] [facility]edoTB RBC4.23N[facility] ToledoTB WBC6.3 NOMS HealthcareCLINISYNCNOMS HealthcareCNNURSEon 75-56-9418KASVVVPDyiky Visit (HEMASA) IVONNE CESPEDES ([id number]) 1955 F Date Time Provider Department 03/22/25 2:00 PM [facility] NURSE ERVIN KENNEDY LILIAMMAMI During your visit today, we recorded the following information about you: Temperature Pulse Respiration Blood pressure 97.6 degrees 90/minute 16/minute 140/86 Shirley Pierre MA 03/22/2025 1:56 PM Signed Patient Identification confirmed: yes. Injection given and documented on OCT per provider order. Shirley Pierre MA Referring Provider: MAIKEL LUNSFORD [[id number]] Allergies As of Date: 03/22/2025 Noted Allergy Reaction BUPROPION 12/22/2004 12 - Shortness of Breath ZYBAN (BUPROPION HCL (SMOKING DET*11/07/2018 12 - Shortness of Breath Date Reviewed: 03/22/2025 Reviewed by: Shirley Pierre MA - Fully Assessed Primary Visit Diagnosis:Anemia, unspecified type [D64.9] Other Visit Diagnosis: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 deficiency [D53.1] Order(s):TREATMENT PARAMETER-NOT NEEDED [[id number]] Order #: [id number]: 1 BCN NURSING COMMUNICATION [[id number]] Order #: [id number]: 1 STANDING cyanocobalamin 1,000 mcg injectionDisp: Rfl: Prescriptions as of 03/22/2025 - DULoxetine (CYMBALTA) 60 mg capsule Take 60 mg by mouth two times a day. - levothyroxine (SYNTHROID) 50 mcg tablet Take 50 mcg by mouth once daily. 75mcg 2 days a week - enzymes,digestive (DIGESTIVE ENZYMES ORAL) Take by mouth. - loperamide (IMODIUM) 2 mg cap(s) every other day. - sertraline (ZOLOFT) 25 mg tablet Take 25 mg by mouth once daily. - calcium carbonate (CALCIUM 500 ORAL) Take by mouth. - Cholecalciferol, Vitamin D3, (VITAMIN D) 1,000 unit cap Take 1,000 Units by mouth once daily. 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 Address: [address] [place], [place] [address]Uesgpuvhb By: #### 67586-6 #### [facility] CLIA [id number] [address] [place] [address] 23857Rydzsrswj/100 WBC (Bld)0.8 %NormalTwin City Hospital Comment on above:Order Comment: Specimen Type: BLOOD SPECIMEN Order[facility] Facility: [facility] Address: [address] [place], [place] [address]Performed By: #### 94371-0 #### [facility] CLIA [id number] [address] [place] [address] 27634Xzwdbockuzxf cell count method Nom (Bld)AutoNormalCAshtabula County Medical Center on above:Order Comment: Specimen Type: BLOOD SPECIMEN Ordering Facility: [facility] Address: [address] [place], [place] [address]Performed By: #### 45469-0 #### [facility] CLIA [id number] [address] [place] [address] 17659Kgrtbltrvqw (Bld) [#/Vol]0.25 10*3/uLNormal<0.46[facility] on above:Order Comment: Specimen Type: BLOOD SPECIMEN Order[facility] Facility: [facility] Address: [address] [place], [place] [address]Performed By: #### 41545-3 #### [facility] CLIA [id number] [address] [place] [address] 13974Wzhkgirbzcw/100 WBC (Bld)4.7 %NormalTwin City Hospital Comment on above:Order Comment: Specimen Type: BLOOD SPECIMEN Order[facility] Facility: [facility] Address: [address] [place], [place] [address]Performed By: #### 74249-9 #### [facility] CLIA [id number] [address] [place] [address] 93952Zitfltyvfxr distribution width (RBC) [Ratio]14.1 %Normal 11.5-15.0[facility] on above:Order Comment: Specimen Type: BLOOD SPECIMEN Order[facility] Facility: [facility] Address: [address] [place], [place] [address]Performed By: #### 32468-6 #### [facility] CLIA [id number] [address] [place] [address] 12583Rnufbpnwbw (Bld) [Volume fraction]38.6 %Xuomhn40.0-46.0 [facility] on above:Order Comment: Specimen Type: BLOOD SPECIMEN Order[facility] Facility: [facility] Address: [address] [place], [place] [address]Performed By: #### 37866-3 #### [facility] CLIA [id number] [address] [place] [address] 14139Ftmxzsavfp (Bld) [Mass/Vol]12.7 g/fAFooxpm12.5-15.5CAshtabula County Medical Center on above:Order Comment: Specimen Type: BLOOD SPECIMEN Order[facility] Facility: [facility] Address: [address] [place], [place] [address]Performed By: #### 00437-2 #### [facility] CLIA [id number] [address] [place] [address] 62241Plfyqdpp granulocytes (Bld) [#/Vol]10*3/uLNormal<0.10[facility] on above:Order Comment: Specimen Type: BLOOD SPECIMEN [facility] Facility: [facility] Address: [address] [place], [place] [address]Performed By: #### 90062-4 #### [facility] CLIA [id number] [address] [place] [address] 05504Dlvnzyjl granulocytes/100 WBC (Bld)0.4 %NormalAultman Alliance Community Hospital on above:Order Comment: Specimen Type: BLOOD SPECIMEN Order[facility] Facility: [facility] Address: [address] [place], [place] [address]Performed By: #### 48625-6 #### [facility] CLIA [id number] [address] [place] [address] 81452Lopulszpudg (Bld) [#/Vol]1.39 10*3/uLNormal1.00-4.00[facility] on above:Order Comment: Specimen Type: BLOOD SPECIMEN Order[facility] Facility[facility] Address: [address] [place], [place] [address]Performed By: #### 99413-0 #### [facility] CLIA [id number] [address] [place], [place] [address]Gfiqjylthwp/100 WBC (Bld)26.2 %NormalAultman Alliance Community Hospital on above:Order Comment: Specimen Type: BLOOD SPECIMEN Order[facility] Facility[facility] Address: [address] [place], [place] [address]Performed By: #### 31676-1 #### [facility] CLIA [id number] [address] [place], [place] [address]VQC (RBC) [Entitic mass]28.9 caQfyldy57.0-34.0[facility] on above:Order Comment: Specimen Type: BLOOD SPECIMEN Order[facility] Facility[facility] Address: [address] [place], [place] [address]Performed By: #### 67650-2 #### [facility] CLIA [id number] [address] [place] [address] 04206HAFI (RBC) [Mass/Vol]32.9 g/lGRpkkip03.5-36.0[facility] on above:Order Comment: Specimen Type: BLOOD SPECIMEN [facility] Facility[facility] Address: [address] [place], [place] [address]Performed By: #### 04557-7 #### [facility] CLIA [id number] [address] [place], [place] [address]ARV (RBC) [Entitic vol]87.9 oUSabsdf98.0-100.0[facility] on above:Order Comment: Specimen Type: BLOOD SPECIMEN Order[facility] Facility: [facility] Address: [address] [place], [place] [address]Performed By: #### 86320-8 #### [facility] CLIA [id number] [address] [place] [address] 17798Lruljmibb (Bld) [#/Vol]0.49 10*3/uLNormal<0.87[facility] on above:Order Comment: Specimen Type: BLOOD SPECIMEN [facility] Facility[facility] Address: [address] [place], [place] [address]Performed By: #### 43737-0 #### [facility] CLIA [id number] [address] [place] [address] 06485Tgfzmhzao/100 WBC (Bld)9.2 %NormalTwin City Hospital Comment on above:Order Comment: Specimen Type: BLOOD SPECIMEN Ordering Facility: [facility] Address: [address] [place], [place] [address]Performed By: #### 05144-7 #### [facility] CLIA [id number] [address] [place] [address] 01389Ohazfjkibfm (Bld) [#/Vol]3.11 10*3/uLNormal1.45-7.50[facility] on above:Order Comment: Specimen Type: BLOOD SPECIMEN Order[facility] Facility: [facility] Address: [address] [place], [place] [address]Performed By: #### 94744-6 #### [facility] CLIA [id number] [address] [place] [address] 51078Scecclovyam/100 WBC (Bld)58.7 %NormalTwin City HospitalComment on above:Order Comment: Specimen Type: BLOOD SPECIMEN Ordering Facility: [facility] Address: [address] [place], [place] [address]Performed By: #### 38207-3 #### [facility] CLIA [id number] [address] [place] [address] 65325Kazjhihqh RBC (Bld) [#/Vol]10*3/uLNormal<0.01[facility] on above:Order Comment: Specimen Type: BLOOD SPECIMEN Order[facility] Facility[facility] Address: [address] [place], [place] [address]Performed By: #### 56436-8 #### [facility] CLIA [id number] [address] [place] [address] 33510Wpjvunkyf RBC/100 WBC (Bld) [Ratio]0.0 /100 WBCNormalCAshtabula County Medical Center on above:Order Comment: Specimen Type: BLOOD SPECIMEN Order[facility] Facility[facility] Address: [address] [place], [place] [address]Performed By: #### 34039-0 #### [facility] CLIA [id number] [address] [place] [address] 60228Moxiaism mean volume (Bld) [Entitic vol]9.1 fLNormal9.0-12.7 [facility] on above:Order Comment: Specimen Type: BLOOD SPECIMEN Order[facility] Facility[facility] Address: [address] [place], [place] [address]Performed By: #### 50060-0 #### [facility] CLIA [id number] [address] [place] [address] 16282Itpgltqlc (Bld) [#/Vol]200 10*3/wFOrcqhq105-216XxsbprgdnAultman Alliance Community Hospital on above:Order Comment: Specimen Type: BLOOD SPECIMEN Order[facility] Facility: [facility] Address: [address] [place], [place] [address]Performed By: #### 35589-0 #### [facility] CLIA [id number] [address] [place] [address] 75048GYU (Bld) [#/Vol]4.39 10*6/uLNormal3.90-5.20[facility] on above:Order Comment: Specimen Type: BLOOD SPECIMEN [facility] Address: [address] [place], [place] [address]Performed By: #### 32766-0 #### [facility] CLIA [id number] [address] [place] [address] 64531MNZ (Bld) [#/Vol]5.30 10*3/uLNormal3.70-11.00[facility] on above:Order Comment: Specimen Type: BLOOD SPECIMEN [facility] Address: [address] [place], [place] [address]Performed By: #### 49508-1 #### [facility] CLIA [id number] [address] [place] [address] 37824XZO CBC W AUTO DIFF BLDon 70-56-9392Vnjlthbjd/100 WBC (Bld)0.8 %[facility] BASOPHILS # BLD AUTO0.04[facility]IC[facility] DIFFERENTIAL METHOD BLDAutoNOMRipley County Memorial HospitalF EOSINOPHIL # BLD AUTO0.25NISt. Francis Hospital C[facility] LYMPHOCYTES # BLD AUTO1.39NOCenterPointe HospitalF MONOCYTES # BLD AUTO0.49NINF [facility] CenterF NEUTROPHILS # BLD AUTO3.11[facility] CenterF NRBC # BLD AUTO <0.01NINFSaint John's Regional Health CenterF NRBC/100 WBC BLD-RTO0/100 WBCResearch [facility] PLATELET # BLD LUWL537EZGJReynolds County General Memorial Hospital PMV BLD AUTO9.1 fL9.0 - 12.7 fLResearch [facility]ton Hospital WBC # BLD AUTO5.3NOChildren's Mercy NorthlandEosinophils/100 WBC (Bld)4.7 %[facility] CenterErythrocyte distribution width (RBC) [Ratio]14.1 %11.5 - 15.0 %[facility] CenterHematocrit (Bld) [Volume fraction]38.6 %36.0 - 46.0 %[facility] Hemoglobin (Bld) [Mass/Vol]12.7 g/dL11.5 - 15.5 g/dLColumbia Regional Hospital GRANULOCYTES # BLD AUTO<0.03NINFColumbia Regional Hospital GRANULOCYTES/LEUK NFR BLD AUTO0.4 %[facility] CenterLymphocytes/100 WBC (Bld)26.2 %[facility] HospitalH (RBC) [Entitic mass]28.9 pg26.0 - 34.0 pgLiberty HospitalHC (RBC) [Mass/Vol]32.9 g/dL 30.5 - 36.0 g/dLLiberty HospitalV (RBC) [Entitic vol]87.9 fL80.0 - 100.0 fLMissouri Baptist Medical CenterMonocytes/100 WBC (Bld)9.2 %[facility] CenterNeutrophils/100 WBC (Bld) 58.7 %[facility] (Bld) [#/Vol]4.39 10*6/uL3.90 - 5.20 m/[facility] HealthcareSpecimen Type: BLOOD SPECIMEN [facility] Address: [address], [place] [id number] Original Ordering Provider: MAIKEL REYNAGA [facility] CenterNURSE [id number] Visit (HEMASA) IVONNE CESPEDES ([id number]) 1955 F Date Time Provider Department 02/22/25 3:00 PM [facility] NURSE ERVIN KENNEDY HEMMAMI During your visit today, we recorded the following information about you: Oniel Prescott MA 02/22/2025 3:10 PM Signed Patient Identification confirmed: yes. Injection given and documented on OCT per provider order. 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 - levothyroxine (SYNTHROID) 50 mcg tablet Take 50 mcg by mouth once daily. 75mcg 2 days a week - enzymes,digestive (DIGESTIVE ENZYMES ORAL) Take by mouth. - loperamide (IMODIUM) 2 mg cap(s) every other day. - sertraline (ZOLOFT) 25 mg tablet Take 25 mg by mouth once daily. - calcium carbonate (CALCIUM 500 ORAL) Take by mouth. - Cholecalciferol, Vitamin D3, (VITAMIN D) 1,000 unit cap Take 1,000 Units by mouth once daily. Problem List As Of Date 02/22/2025 Noted Resolved Ductal carcinoma in situ (DCIS) of breast [D05.*06/11/2019 Anemia [D64.9] 03/13/2023 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 deficie*03/13/2023 Prescriptions ordered this encounter Disp Refills Start End CYANOCOBALAMIN (VIT B-12) 1,000 MCG/* 02/22/2025 02/22/2025 Route: IM Disc: Auto DC at discharge. Medications Discontinued During This Encounter Prescriptions - cyanocobalamin 1,000 mcg injection (Discontinued) Encounter Status:Closed by ONIEL PRESCOTT on 02/22/25NoHolzer Medical Center – JacksonOVSAscension [facility] [id number] (SP) Office (HEMASA) IVONNE CESPEDES ([id number]) 1955 F Date Time Provider Department 02/22/25 2:30 PM KIM HENRY During your visit today, we recorded the following information about you: Temperature Pulse Respiration Blood pressure 97.4 degrees 81/minute 16/minute 143/91 Kim Henry APRN.SUPERVISOR DRYING AND SOFTENING 02/22/2025 4:26 PM Signed NAME: Ivonne Cespedes [facility] NO.: [id number] DATE OF SERVICE: .February 22, 2025 (Joel) Some elements in this clinic note that are critical to medical decision making have been carefully reviewed and included from a prior clinic note dated: September 07, 2024 (Martín) Referring Provider: Rosa Shearer Additional Clinicians involved in Ivonne Cespedes's care: DIAGNOSIS: B12 deficiency History of right breast DCIS CASE SUMMARY / ASSESSMENT: 69 year old woman with DCIS diagnosed approximately [...] negative. Continue B12 replacement intramuscularly every month. SUMMARIZED PLAN: Triage to call results of iron studies B12 shot today and q 4 weeks Repeat labs q 12 weeks RTC in 24 weeks AI ASSISTED A/P: - CASE HISTORY: Reverse Chronological Order 09/07/2024 - CBC: 6.35 > 12.7 / 39.4 < 189 Iron studies in process 06/15/2024 - CBC: 6.01 > 12.9 / 38.8 < 213 Ferritin: 51.5, TIBC: 312, Transferrin Saturation: 12.5, Vitamin B12: 552, Folate: 17.7 03/23/2024 - CBC: 6.57 > 12.7 / 40.2 < 196 Ferritin: 26.7, TIBC: 370, Transferrin Saturation: 25.1, Vitamin B12: 428, Folate: 11.8 12/05/2023 - CBC: 6.31 > 13.0 / 40.7 < 193 Ferritin: 18.2, TIBC: 384, Transferrin Saturation: 12.8, Vitamin B12: 405, Folate: 10.2 06/06/2023 - Mammogram: Category 2 benign 02/13/2023 - B12 level 144 11/01/2022 - CBC 5.7 > 13.5/41.6 < 218 normal differential. 03/2022 - FibroScan F0-F1 no steatosis. 01/2022 - CT A/P at [facility] hepatomegaly with hepatic steatosis. 06/2021 - CT A/P right retrocrural lymph node. 11/25/2018 - Right breast lumpectomy Dr. 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 10/27/2018 - Biopsy showed ductal carcinoma in situ high nuclear grade. The estrogen receptor was positive at 10-20% with progesterone receptor negative DCIS Right Breast - [facility] 10/22/2018 - Mammogram showing suspicious changes in the right breast. grouping of numerous pleomorphic calcifications within the posterior upper inner quadrant. - HPI: Updated Visit, February 22, 2025: Ivonne returns today for a follow-up visit. she was recently diagnosed by her physician with fibromyalgia and taking Cymbalta. She expressed that she has been extremely tired. She is uncertain if the Cymbalta is working. She attends physical therapy for neck pain and recently developed knee pain. She denies any fever, chills or bleeding and reports eating well. Recent labs reported showed normal hemoglobin and iron levels Updated Visit, September 07, 2024: Ivonne returns for a follow up. She is not anemic today, results of iron studies are in process. Will continue B12 injections given prior deficiency. She reports she was diagnosed with fibromyalgia. Updated Visit, March 23, 2024: Ivonne returns [...] Visit, June 05, 2023: Mammogram done in [place] yesterday Was told she has pancreatic insufficiency B12 levels remain low. Initial Visit, March 13, 2023: Ivonne Cespedes presents today for a Hematology and Oncology evaluation. 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 Additionally has a history of pancreatic insufficiency requiring Creon and fatty liver disease with IBS diarrhea. She has known vitamin B12 deficiency with levels less than 50 and was supposed to start vitamin B12 supplementation which I did do not know (more content not included)...NormalTwin City HospitalComprehensive metabolic 2000 panelon 43-42-9476Fknjzkl [Mass/Vol]4.0 g/dLNormal3.9-4.9CAshtabula County Medical Center on above:Order Comment: Specimen Type: BLOOD SPECIMEN [facility] Address: [address] [place], [place] [address]Performed By: #### 33901-1 #### [facility] CLIA [id number] [address] [place] [address] 95326YMM [Catalytic activity/Vol]68 U/OIhrbvn63-101KzhxhyyviAultman Alliance Community Hospital on above:Order Comment: Specimen Type: BLOOD SPECIMEN [facility] Address: [address] [place], [place] [address]Performed By: #### 59875-2 #### [facility] CLIA [id number] [address] [place] [address] 45466TBV [Catalytic activity/Vol]16 U/LNormal7-38[facility] on above:Order Comment: Specimen Type: BLOOD SPECIMEN [facility] Address: [address] [place], [place] [address]Performed By: #### 79966-5 #### [facility] CLIA [id number] [address] [place] [address] 33666Kjtnj gap [Moles/Vol]11 mmol/LNormal8-15[facility] on above:Order Comment: Specimen Type: BLOOD SPECIMEN [facility] Address: [address] [place], [place] [address]Performed By: #### 58863-9 #### [facility] CLIA [id number] [address] [place] [address] [place] [address]DWB [Catalytic activity/Vol]19 U/TTpomgw76-41LrjjebgcrAultman Alliance Community Hospital on above:Order Comment: Specimen Type: BLOOD SPECIMEN [facility] Address: [address] [place], [place] [address]Performed By: #### 17904-6 #### [facility] CLIA [id number] [address], [place] [address]Uqgroxonl [Mass/Vol]0.2 mg/dLNormal0.2-1.3CAshtabula County Medical Center on above:Order Comment: Specimen Type: BLOOD SPECIMEN [facility] Address: [address] [place], [place] [address]Performed By: #### 67915-4 #### [facility] CLIA [id number] [address] [place] [address] 47976Bblwhyn [Mass/Vol]9.7 mg/dLNormal8.5-10.2CAshtabula County Medical Center on above:Order Comment: Specimen Type: BLOOD SPECIMEN [facility] Address: [address] [place], [place] [address]Performed By: #### 36579-5 #### [facility] CLIA [id number] [address] [place] [address] 71993Cbxghbyj [Moles/Vol]104 mmol/JAmvozy27-447WqzgurhgcAultman Alliance Community Hospital on above:Order Comment: Specimen Type: BLOOD SPECIMEN [facility] Address: [address] [place], [place] [address]Performed By: #### 55203-4 #### [facility] CLIA [id number] [address] [place] [address] 98119TP1 [Moles/Vol]26 mmol/YHyeijv49-00YxidumgzsTwin City Hospital Comment on above:Order Comment: Specimen Type: BLOOD SPECIMEN [facility] Address: [address] [place], [place] [address]Performed By: #### 96669-6 #### [facility] CLIA [id number] [address], [place] [address]Qzczggdinu [Mass/Vol]0.69 mg/dLNormal0.58-0.96[facility] Columbusment on above:Order Comment: Specimen Type: BLOOD SPECIMEN [facility] Address: [address] [place], [place] [address]Performed By: #### 83802-5 #### [facility] CLIA [id number] [address], [place] [address]Gfpxvddcoo and Glomerular filtration rate.predicted panel (S/P/Bld)93 mL/min/1.73m???Normal>=60[facility] on above: Order Comment: Specimen Type: BLOOD SPECIMEN [facility] Address: [address] [place], [place] [address]Result Comment: Estimated Glomerular Filtration Rate (eGFR) is calculated using the 2020 CKD-EPI cre atinine equation. This equation utilizes serum creatinine, sex, and age as parameters. The creatinine assay has traceable calibration to isotope dilution- mass spectrometry. Refer to KDIGO guidelines for clinical interpretation. In patients with unstable renal function, e.g. those with acute kidney injury, the eGFR may not accurately reflect actual GFR.Performed By: #### 04576-1 #### [facility] CLIA [id number] [address], [place] [address]Ihkgteb [Mass/Vol]115 mg/jURghk46-80TomwuoazcTwin City Hospital Comment on above:Order Comment: Specimen Type: BLOOD SPECIMEN [facility] Address: [address] [place], [place] [address]Result Comment: The [place] [employer] (ADA) provides guidance for cutoff [...] Standards of Medical Care in Diabetes 2016, [place] [employer]. Diabetes Care. 2016.39(Suppl 1).Performed By: #### 59450-8 #### [facility] CLIA [id number] [address], [place] [address]Rgddhshtu [Moles/Vol]4.0 mmol/LNormal3.7-5.1CAshtabula County Medical Center on above:Order Comment: Specimen Type: BLOOD SPECIMEN [facility] Address: [address] [place], [place] [address]Performed By: #### 88834-6 #### [facility] CLIA [id number] [address] [place] [address] 30453Gcxcqft [Mass/Vol]6.9 g/dLNormal6.3-8.0[facility] on above:Order Comment: Specimen Type: BLOOD SPECIMEN [facility] Address: [address] [place], [place] [address]Performed By: #### 91382-5 #### [facility] CLIA [id number] [address] [place] [address] 33327Qpiayn [Moles/Vol]141 mmol/ATidtjh870-036PplcryopaAultman Alliance Community Hospital on above:Order Comment: Specimen Type: BLOOD SPECIMEN [facility] Address: [address] [place], [place] [address]Performed By: #### 07487-4 #### [facility] CLIA [id number] [address] [place] [address] 98194Jjts nitrogen [Mass/Vol]15 mg/dLNormal7-21[facility] on above:Order Comment: Specimen Type: BLOOD SPECIMEN [facility] Address: [address] [place], [place] [address]Performed By: #### 72556-4 #### [facility] CLIA [id number] [address], [place] [address]Jcjqswca SerPl-mCncon 47-55-8362Wgvnbiul [Mass/Vol]23.9 ng/mL Cxjlvd48.7-205.1CAshtabula County Medical Center on above:Order Comment: Specimen Type: BLOOD SPECIMEN [facility] Address: [address] [place], [place] [address]Performed By: #### 75917-0 #### [facility] CLIA [id number] [address] [place] [address] 117[address]Jpnyek SerPl-mCncon 99-97-9303Cgimbk [Mass/Vol]16.4 ng/mL Normal>4.7CAshtabula County Medical Center on above:Order Comment: Specimen Type: BLOOD SPECIMEN [facility] Address: [address] [place], [place] [address]Performed By: #### 92562-9 #### [facility] CLIA [id number] [address] [place] [address]26[address]Crcn and Iron binding capacity panelon 51-10-3210Cyrf [Mass/Vol]55 ug/aZHqnlar09-605OkovmygwiAultman Alliance Community Hospital on above:Order Comment: Specimen Type: BLOOD SPECIMEN [facility] Address: [address] [place], [place] [address]Performed By: #### 68993-0 #### [facility] CLIA [id number] [address] [place] [address] 726[address]Rgbn binding capacity [Mass/Vol]342 ug/pTLezpau032-274 [facility] on above:Order Comment: Specimen Type: BLOOD SPECIMEN [facility] Address: [address] [place], [place] [address]Performed By: #### 75140-9 #### [facility] CLIA [id number] [address] [place] [address] 52595Rykg/TIBC [Molar ratio]16.1 %Llhgiw16.0-57.0[facility] on above:Order Comment: Specimen Type: BLOOD SPECIMEN [facility] Address: [address] [place] [address]80[address]Ncbxzquwq By: #### 16547-0 #### [facility] CLIA [id number] [address] [place] [address] 00125Ehq B12 SerPl-mCncon 64-15-8069Bgqbhtkny (Vitamin B12) [Mass/Vol]443 pg/uPDlcghf255-3759IwnmelgwvAshtabula County Medical Center on above: Order Comment: Specimen Type: BLOOD SPECIMEN [facility] Address: [address] [place] [address] 99[address]Nfpwmkdoc By: #### 67531-3 #### [facility] CLIA [id number] [address] [place] [address] 31775LAI T3 FREEon 18-62-3508Bztx T3 [Mass/Vol]2.66 pg/mL2.18 - 3.98 pg/mLNOMS HealthcareALL THYROID STIM HORMONEon 52-18-5830ZFN Qn2.194 m[IU]/LNOMS HealthcareNo Panel Informationon 38-37-8082BENVFQFLMQBDK Healthcare CNNURSEon 80-39-7598FQTJTSZUaiub Visit (HEMASA) IVNONE CESPEDES ([id number]) 1955 F Date Time Provider Department 01/25/25 2:30 PM [facility] NURSE ERVIN VILLASENOR During your visit today, we recorded the following information about you: Temperature Pulse Respiration Blood pressure 97.6 degrees 87/minute 16/minute 112/73 Oniel Prescott MA 01/25/2025 2:43 PM Signed Patient Identification confirmed: yes. Injection given and documented on OCT per provider order. 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 - levothyroxine (SYNTHROID) 50 mcg tablet Take [...] once daily. Problem List As Of Date 01/25/2025 Noted Resolved Ductal carcinoma in situ (DCIS) of breast [D05.*06/11/2019 Anemia [D64.9] 03/13/2023 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 deficie*03/13/2023 Prescriptions ordered this encounter Disp Refills Start End CYANOCOBALAMIN (VIT B-12) 1,000 MCG/* 01/25/2025 01/25/2025 Route: IM Encounter Status:Closed by ONIEL PRESCOTT on 01/25/25[facility] HEAD/BRAIN WOon 83-90-0459[place] [address] [place] Scan Report Signed Patient: IVONNE CESPEDES MR#: [id number] : 1955 Acct:[id number] Age/Sex: 69 / F ADM Date: 01/21/25 Loc: CT Attending Dr: YULIA PRINCE Ordering Physician: YULIA PRINCE Date of Service: 01/21/25 Procedure(s): CT head/brain wo con Accession Number(s): [id number] cc: FRANCISCA ROJAS [place] [address] Patient Name: IVONNE CESPEDES MRN: [id number] date: 1955 Sex: F Assigned Patient Location: CT Current Patient Location: CT Accession/Order Number: [id number] Exam Date: 01/21/2025 14:33 Report Date: 01/21/2025 14:37 At the request of: YULIA PRINCE Procedure: CT head/brain wo con CT [...] Rincon M.D. 01/21/2025 2:37 PM Dictation Location: [place] [address] Electronically authenticated by: [id number] Y Date: 01/21/2025 14:37 Dictated By: Kike Rincon M.D. Signed By: 01/21/25 1444 DD/ 1437 TD/TT: Tank Carpenter:TBHRadiology, Radiologist, - 01/21/[address] [place] [id number] Scan Report Signed Patient: IVONNE CESPEDES MR#: [id number] : 1955 Acct:[id number] Age/Sex: 69 / F ADM Date: 01/21/25 Loc: CT Attending Dr: YULIA PRINCE Ordering Physician: YULIA PRINCE Date of Service: 01/21/25 Procedure(s): CT head/brain wo con Accession Number(s): [id number] cc: FRANCISCA ROJAS [place] [id number] Patient Name: IVONNE CESPEDES MRN: [id number] date: 1955 Sex: F Assigned Patient Location: CT Current Patient Location: CT Accession/Order Number: [id number] Exam Date: 01/21/2025 14:33 Report Date: 01/21/2025 14:37 At the request of: YULIA PRINCE Procedure: CT head/brain wo con CT [...] Rincon M.D. 01/21/2025 2:37 PM Dictation Location: [facility] Electronically authenticated by: [id number] Y Date: 01/21/2025 14:37 Dictated By: Kike Rincon M.D. Signed By: 01/21/25 1440 DD/ 36 TD/TT: Tank Carpenter: KAREN HealthcareRadiology Study observation (narrative)NOMS HealthcareCT HEAD/BRAIN WOOrdered By: Radiologist Radiology on 45-87-6449RUKZ Healthcare Work Phone: cNNURSEon [phone] Visit (HEMASA) IVONNE CESPEDES ([id number]) 1955 F Date Time Provider Department 12/28/24 2:30 PM [facility] NURSE ERVIN VILLASENOR During your visit today, we recorded the following information about you: Temperature Pulse Respiration Blood pressure 98 degrees 90/minute 16/minute 104/71 Shirley Pierre MA 12/28/2024 2:15 PM Signed Patient Identification confirmed: yes. Injection given and documented on OCT per provider order. 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 - levothyroxine (SYNTHROID) 50 mcg tablet Take [...] once daily. Problem List As Of Date 12/28/2024 Noted Resolved Ductal carcinoma in situ (DCIS) of breast [D05.*06/11/2019 Anemia [D64.9] 03/13/2023 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 deficie*03/13/2023 Prescriptions ordered this encounter Disp Refills Start End CYANOCOBALAMIN (VIT B-12) 1,000 MCG/* 12/28/2024 12/28/2024 Route: INTRAMUSCULA Encounter Status:Closed by November on 12/28/24NormalCMorrow County HospitalXR HAND 1-2 VIEWS LEFTon 52-23-0544DT HAND 1-2 VIEWS LEFTXR HAND 1-2 VIEWS LEFT Reason for exam: Left thumb pain Views: 4 Findings: The alignment is normal. No fracture, dislocation or other acute pathology is demonstrated. No soft tissue abnormalities are seen. Impression: Negative exam. Dictated on: 12/07/2024 8:30 PM This report has been electronically signed and approved by the interpreting Radiologist.NormalNot AvailableCB W Auto Differential panel (Bld)on 11-30-2024 Basophils (Bld) [#/Vol]0.05 10*3/uLNormal<0.11CMorrow County HospitalComment on above:Order Comment: Specimen Type: BLOOD SPECIMENOrdering Facility: [facility] Address:[address] [place] [address] Performed By: #### 31039-9 ####[facility] LABCLIA [id number] [place], [place] [address]Bhcoibxyl/100 WBC (Bld)0.8 % NormalAultman Alliance Community Hospital on above:Order Comment: Specimen Type: BLOOD SPECIMENOrdering Facility: [facility] Address:[address] [place], [place] [address]Performed By: #### 25688-3 ####[facility] LABCLIA [id number] [place] [address] Differential cell count method Nom (Bld)AutoNormalClevelKindred Hospital - Greensboro Comment on above:Order Comment: Specimen Type: BLOOD SPECIMENOrdering Facility: [facility] Address:[address] [place] [address] Performed By: #### 56631-5 ####[facility] LABIA [id number] [place], [place] [address]Kqidnmhmehh (Bld) [#/Vol]0.21 10*3/uLNormal<0.46Aultman [facility] on above:Order Comment: Specimen Type: BLOOD SPECIMENOrdering Facility: [facility] Address:[address] [place], [place] [address]Performed By: #### 85129-4 ####[facility] LABIA [id number] [place], [place] [address]Mydqtnvuplt/100 WBC (Bld)3.2 %NormalAultman [facility] on above:Order Comment: Specimen Type: BLOOD SPECIMENOrdering Facility: [facility] Address:[address] [place], [place] [address]Performed By: #### 63539-9 ####[facility] LABIA [id number] [place], [place] [address]Wqehbhyszzl distribution width (RBC) [Ratio]14.6 %Qdqtdh61.5-15.0[facility] on above: Order Comment: Specimen Type: BLOOD SPECIMENOrdering Facility: [facility] Address:[address] [place], [place] [address]Performed By: #### 01808- 8 ####[facility] LABCLIA [id number] [place], [place] [address]Ajlefdbzap (Bld) [Volume fraction]39.8 %Eeenkj47.0-46.0 [facility] on above:Order Comment: Specimen Type: BLOOD SPECIMENOrdering Facility: [facility] Address:[address] [place], [place] [address]Performed By: #### 45402-0 ####[facility] LABIA [id number] [place], [place] [address]Kmmzfirelf (Bld) [Mass/Vol]12.9 g/iTQfvtbo77.5-15.5CAshtabula [facility] on above: Order Comment: Specimen Type: BLOOD SPECIMENOrdering Facility: [facility] Address:[address] [place], [place] [address]Performed By: #### 57392- 8 ####[facility] LABIA [id number] [place], [place] [address]Fnwjkjvm granulocytes (Bld) [#/Vol]0.03 10*3/uLNormal <0.10[facility] on above:Order Comment: Specimen Type: BLOOD SPECIMENOrdering Facility: [facility] Address:[address] [place], [place] [address]Performed By: #### 59155-5 ####[facility] LABIA [id number] [place], [place] [address]Msavgnas granulocytes/100 WBC (Bld)0.5 %NormalAultman [facility] on above: Order Comment: Specimen Type: BLOOD SPECIMENOrdering Facility: [facility] Address:[address] [place], [place] [address]Performed By: #### 77393- 8 ####[facility] LABIA [id number] [place], [place] [address]Datlskbtpda (Bld) [#/Vol]2.24 10*3/uLNormal1.00-4.00 [facility] on above:Order Comment: Specimen Type: BLOOD SPECIMENOrdering Facility: [facility] Address:[address] [place], [place] [address]Performed By: #### 65845-0 ####[facility] LABCLIA [id number] [place], [place] [address]Eqlutkqdwwd/100 WBC (Bld)34.1 %NormalAultman [facility] on above:Order Comment: Specimen Type: BLOOD SPECIMENOrdering Facility: [facility] Address:[address] [place], [place] [address]Performed By: #### 88184-4 ####[facility] LABCLIA [id number] [place], [place] [address]ZDW (RBC) [Entitic mass]28.4 ehVkdrit33.0-34.0[facility] on above:Order Comment: Specimen Type: BLOOD SPECIMENOrdering Facility: [facility] Address:[address] [place], [place] [address]Performed By: #### 15117-4 ####[facility] LABCLIA [id number] [place], [place] [address]TPAO (RBC) [Mass/Vol]32.4 g/dJNatbpn97.5-36.0[facility] on above: Order Comment: Specimen Type: BLOOD SPECIMENOrdering Facility: [facility] Address:[address] [place], [place] [address]Performed By: #### 14681- 8 ####[facility] LABCLIA [id number] [place], [place] [address]GCH (RBC) [Entitic vol]87.5 bNQwvgvy50.0-100.0[facility] on above:Order Comment: Specimen Type: BLOOD SPECIMENOrdering Facility: [facility] Address:[address] [place], [place] [address]Performed By: #### 40237-1 ####[facility] LABCLIA [id number] [place], [place] [address]Gctnmuomf (Bld) [#/Vol]0.72 10*3/uLNormal<0.87[facility] on above:Order Comment: Specimen Type: BLOOD SPECIMENOrdering Facility: [facility] Address:[address] [place], [place] [address]Performed By: #### 49275- 8 ####[facility] LABCLIA [id number] [place], [place] [address]Wtsxryasf/100 WBC (Bld)11.0 %NormalAultman [facility] on above:Order Comment: Specimen Type: BLOOD SPECIMENOrdering Facility: [facility] Address:[address] [place], [place] [address]Performed By: #### 69599-2 ####[facility] LABCLIA [id number] [place], [place] [address]Flnbiinmnxd (Bld) [#/Vol]3.32 10*3/uLNormal1.45-7.50[facility] on above:Order Comment: Specimen Type: BLOOD SPECIMENOrdering Facility: [facility] Address:[address] [place], [place] [address]Performed By: #### 12395-9 ####[facility] LABCLIA [id number] [place], [place] [address]Kbwmokmthzx/100 WBC (Bld)50.4 %NormalAultman [facility] on above:Order Comment: Specimen Type: BLOOD SPECIMENOrdering Facility: [facility] Address:[address] [place], [place] [address]Performed By: #### 11264-7 ####[facility] LABIA [id number] [place], [place] [address]Elqxtmzpu RBC (Bld) [#/Vol] 10*3/uLNormal<0.01[facility] on above:Order Comment: Specimen Type: BLOOD SPECIMENOrdering Facility: [facility] Address:[address] [place], [place] [address]Performed By: #### 71943-0 ####[facility] LABCLIA [id number] [place], [place] [address]Cgkjpvuml RBC/100 WBC (Bld) [Ratio]0.0 /100 WBCNormal [facility] on above:Order Comment: Specimen Type: BLOOD SPECIMENOrdering Facility: [facility] Address:[address] [place], [place] [address]Performed By: #### 77904-9 ####[facility] LABIA [id number] [place], [place] [address]Uqkvbakl mean volume (Bld) [Entitic vol]8.8 fLLow9.0-12.7CAshtabula [facility] on above:Order Comment: Specimen Type: BLOOD SPECIMENOrdering Facility: [facility] Address:[address] [place], [place] [address]Performed By: #### 44155-5 ####[facility] LABCLIA [id number] [place], [place] [address]Cahhgenlb (Bld) [#/Vol]223 10*3/sXEddemq519-615ApsolpbihAultman [facility] on above:Order Comment: Specimen Type: BLOOD SPECIMENOrdering Facility: [facility] Address:[address] [place], [place] [address]Performed By: #### 86811-9 ####[facility] LABIA [id number] [place], [place] [address]XKB (Bld) [#/Vol]4.55 10*6/uLNormal3.90-5.20[facility] on above: Order Comment: Specimen Type: BLOOD SPECIMENOrdering Facility: [facility] Address:[address] [place] [address] [place] [address]Rfyknsjog By: #### 28081- 8 ####[facility] LABCLIA [id number] [place], [place] [address]SDM (Bld) [#/Vol]6.57 10*3/uLNormal3.70-11.00[facility] HospitalComment on above:Order Comment: Specimen Type: BLOOD SPECIMENOrdering Facility: [facility] Address:[address] [place], [place] [address]Bjlmjymwn By: #### 50128-4 ####[facility] LABCLIA [id number] [place], [place] [address]PIQ CBC W AUTO DIFF BLDon 25-57-1755Tyzssutsy/100 WBC (Bld)0.8 %[facility] BASOPHILS # BLD AUTO0.05[facility]IC[facility] DIFFERENTIAL METHOD BLDAutoNOMSSM Health Care EOSINOPHIL # BLD AUTO0.21[facility] LYMPHOCYTES # BLD AUTO2.24NOReynolds County General Memorial Hospital MONOCYTES # BLD AUTO0.72[facility]IC[facility] NEUTROPHILS # BLD AUTO3.32NOCenterPointe HospitalF NRBC # BLD AUTO<0.01[facility]IC[facility] NRBC/100 WBC BLD-RTO0/100 WBCResearch [facility] Hospital PLATELET # BLD NTTR573NCBZReynolds County [facility] PMV BLD AUTO8.8 fLLow9.0 - 12.7 fLResearch [facility]ton Hospital WBC # BLD AUTO6.57NOChildren's Mercy NorthlandEosinophils/100 WBC (Bld)3.2 %[facility] HealthcareErythrocyte distribution width (RBC) [Ratio]14.6 %11.5 - 15.0 %NOMS HealthcareHematocrit (Bld) [Volume fraction]39.8 %36.0 - 46.0 %NOMS HealthcareHemoglobin (Bld) [Mass/Vol]12.9 g/dL 11.5 - 15.5 g/dLNOChildren's Mercy NorthlandIM GRANULOCYTES # BLD AUTO0.03NIHouston County Community Hospital GRANULOCYTES/LEUK NFR BLD AUTO0.5 %NOMS HealthcareInterpretation and review of laboratory resultsAbnormalMissouri Baptist Medical CenterLymphocytes/100 WBC (Bld) 34.1 %[facility] HospitalH (RBC) [Entitic mass]28.4 pg26.0 - 34.0 pgLiberty HospitalHC (RBC) [Mass/Vol]32.4 g/dL30.5 - 36.0 g/dLLiberty HospitalV (RBC) [Entitic vol]87.5 fL80.0 - 100.0 fLMissouri Baptist Medical CenterMonocytes/100 WBC (Bld)11 % [facility] CenterNeutrophils/100 WBC (Bld)50.4 %[facility] Medical CenterRBC (Bld) [#/Vol] 4.55 10*6/uL3.90 - 5.20 m/uLLAYTON HOSPITAL HealthcareSpecimen Type: BLOOD SPECIMEN [facility] Address: [address] [place] [address] Original Ordering Provider: MAIKEL COLEParkland Health CenterNURSEon 34-02-0823XJJMHEAFgnud Visit (HEMASA) IVONNE CESPEDES ([id number]) 1955 F Date Time Provider Department 11/30/24 2:30 PM [facility] NURSE ERVIN VILLASENOR During your visit today, we recorded the following information about you: Temperature Pulse Respiration Blood pressure 97.9 degrees 81/minute 16/minute 140/93 Pepe Yadav MA 11/30/2024 2:05 PM Signed Patient Identification confirmed: yes. Injection given and documented on OCT per provider order. 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 - levothyroxine (SYNTHROID) 50 mcg tablet Take [...] once daily. 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 Address: [address] [facility], [place] [address]Fctrzjlbu By: #### 30512-7 #### [facility] CLIA [id number] [address] [place] [address]AAX [Catalytic activity/Vol]60 U/MEtzmpx70-899LzdzrnqiwAultman [facility] Hospital on above:Order Comment: Specimen Type: BLOOD SPECIMEN [facility] Address: [address] [place], [place] [address]Performed By: #### 44639-1 #### [facility] CLIA [id number] [address] [place], [place] [address]TFF [Catalytic activity/Vol]15 U/LNormal7-38[facility] on above:Order Comment: Specimen Type: BLOOD SPECIMEN [facility] Address: [address] [place], [place] [address]Performed By: #### 00496-9 #### [facility] CLIA [id number] [address] [place], [place] [address]Qhkuu gap [Moles/Vol]12 mmol/LNormal8-15[facility] on above:Order Comment: Specimen Type: BLOOD SPECIMEN [facility] Address: [address] [place], [place] [address]Performed By: #### 67487-0 #### [facility] CLIA [id number] [address] [place], [place] [address]YKA [Catalytic activity/Vol]18 U/CFugyiq23-86AsqcdvaobAultman [facility] on above:Order Comment: Specimen Type: BLOOD SPECIMEN [facility] Address: [address] [place], [place] [address]Performed By: #### 24834-9 #### [facility] CLIA [id number] [address] [place], [place] [address]Hxuawbbqr [Mass/Vol]0.3 mg/dLNormal0.2-1.3CAshtabula County Medical Center on above:Order Comment: Specimen Type: BLOOD SPECIMEN [facility] Address: [address] [place], [place] [address]Performed By: #### 13565-9 #### [facility] CLIA [id number] [address] [place], [place] [address]Nsxdrnz [Mass/Vol]10.3 mg/dLHigh8.5-10.2[facility] ClevelandComment on above:Order Comment: Specimen Type: BLOOD SPECIMEN [facility] Address: [address] [place], [place] [address]Performed By: #### 82961-0 #### [facility] CLIA [id number] [address] [place], [place] [address]Uekurhst [Moles/Vol]102 mmol/WCyvplp05-304XgnaciywbAultman [facility] Hospital on above:Order Comment: Specimen Type: BLOOD SPECIMEN [facility] Address: [address] [place], [place] [address]Performed By: #### 27210-6 #### [facility] CLIA [id number] [address] [place], [place] [address]ZJ1 [Moles/Vol]27 mmol/EHyccou91-63TjkuycvtuTwin City Hospital Comment on above:Order Comment: Specimen Type: BLOOD SPECIMEN [facility] Address: [address] [place], [place] [address]Performed By: #### 45229-7 #### [facility] CLIA [id number] [address] [place], [place] [address]Wfphihvtbo [Mass/Vol]0.65 mg/dLNormal0.58-0.96[facility] on above:Order Comment: Specimen Type: BLOOD SPECIMEN [facility] Address: [address] [place], [place] [address]Performed By: #### 71149-9 #### [facility] CLIA [id number] [address] [place], [place] [address]Zdcyfwbled and Glomerular filtration rate.predicted panel (S/P/Bld)94 mL/min/1.73m???Normal>=60[facility] on above: Order Comment: Specimen Type: BLOOD SPECIMEN [facility] Address: [address] [place], [place] [address]Result Comment: Estimated Glomerular Filtration Rate (eGFR) is calculated using the 2020 CKD-EPI cre atinine equation. This equation utilizes serum creatinine, sex, and age as parameters. The creatinine assay has traceable calibration to isotope dilution- mass spectrometry. Refer to KDIGO guidelines for clinical interpretation. In patients with unstable renal function, e.g. those with acute kidney injury, the eGFR may not accurately reflect actual GFR.Performed By: #### 34901-2 #### [facility] CLIA [id number] [address] [place], [place] [address]Wchjwla [Mass/Vol]87 mg/eWGelels84-39IkvlvfrgpAultman [facility] on above:Order Comment: Specimen Type: BLOOD SPECIMEN [facility] Address: [address] [place], [place] [address]Mrzwiw Comment: The [place] Diabetes Association (ADA) provides guidance for cutoff [...] Standards of Medical Care in Diabetes 2016, [place] [employer]. Diabetes Care. 2016.39(Suppl 1).Performed By: #### 47389-2 #### [facility] CLIA [id number] [address] [place] [address]Huxrzojux [Moles/Vol]4.1 mmol/LNormal3.7-5.1CAshtabula County Medical Center on above:Order Comment: Specimen Type: BLOOD SPECIMEN [facility] Address: [address] [place], [place] [address]Quomxsmzw By: #### 94724-0 #### [facility] CLIA [id number] [address] [place], [place] [address]Belpnha [Mass/Vol]7.3 g/dLNormal6.3-8.0[facility] on above:Order Comment: Specimen Type: BLOOD SPECIMEN [facility] Address: [address] [place], [place] [address]Performed By: #### 23272-0 #### [facility] CLIA [id number] [address] [place] [address]Xoypon [Moles/Vol]141 mmol/VEskxgq723-014NfcetxdsvAultman [facility] on above:Order Comment: Specimen Type: BLOOD SPECIMEN [facility] Address: [address] [place], [place] [address]Performed By: #### 04628-1 #### [facility] CLIA [id number] [address] [place] [address]Olyp nitrogen [Mass/Vol]13 mg/dLNormal7-21[facility] on above:Order Comment: Specimen Type: BLOOD SPECIMEN [facility] Address: [address] [place], [place] [address]Performed By: #### 11896-5 #### [facility] CLIA [id number] [address] [place] [address]Sajgcedl SerPl-mCncon 10-75-2606Qkuywxtf [Mass/Vol]27.4 ng/mL Bwywmx26.7-205.1CAshtabula [facility] Center on above:Order Comment: Specimen Type: BLOOD SPECIMENOrdering Facility: [facility] Address:[address] [place], [place] [address]Performed By: #### 15139-8, 2132-9, 2284-8, 2276-4 ####[facility] LABCLIA [id number] [facility] [place] [address] [place] AMERICAFolate SerPl-mCncon 68-05-6022Idzxfu [Mass/Vol]19.3 ng/mLNormal>4.7CAshtabula County Medical Center on above:Order Comment: Specimen Type: BLOOD SPECIMENOrdering Facility: [facility] Address:[address] [place] [address] Performed By: #### 34385-3, 2132-9, 2283-8, 2275-4 ####[facility] LABCLIA [id number] [place] [id number] [place] OF AMERICAIron and Iron binding capacity panelon 76-95-6941Bhqi [Mass/Vol]93 ug/xTPvqxrv69-531WtbshjkmkAultman [facility] on above:Order Comment: Specimen Type: BLOOD SPECIMENOrdering Facility: [facility] Address:[address] [place], [place] [address]Performed By: #### 14351- 8, 9, 8, 2275-4 ####[facility] LABIA [id number] [place] [address] [place] AMERICAIron binding capacity [Mass/Vol]362 ug/gGIibtdm616-136XplacrnrzTwin City Hospital Comment on above:Order Comment: Specimen Type: BLOOD SPECIMENOrdering Facility: [facility] Address:[address] [place] [address] Performed By: #### 07273-9, 9, 2283-8, 2275-4 ####[facility] LABIA [id number] [place] [address] [place] AMERICAIron/TIBC [Molar ratio]25.7 %Lbyfiz87.0-57.0[facility] on above:Order Comment: Specimen Type: BLOOD SPECIMENOrdering Facility: [facility] Address:[address] [place], [place] [address]Performed By: #### 29002-3, 9, 2283-8, 2275-4 ####[facility] LABIA [id number] [place] [address] [place] AMERICAVit B12 SerPl-mCncon 45-94-2675Flugxbujr (Vitamin B12) [Mass/Vol]578 pg/fZVydssp260-6539Znxwectjk Clinic ClevelandComun[facility] on above: Order Comment: Specimen Type: BLOOD SPECIMENOrdering Facility: [facility] Address:[address] [place], [place] [address]Performed By: #### 99546- 8, 2132-9, 2284-8, 2276-4 ####[facility] LABCLIA [id number] [address]EN SLOAN [address] STATES OF ADAMS COUNTY HOSPITALCNNURSE on 05-14-2745YUAMWGCOoqzk Visit (HEMASA) IVONNE CESPEDES ([id number]) 1955 F Date Time Provider Department 11/02/24 2:30 PM [facility] NURSE ERVIN VILLASENOR During your visit today, we recorded the following information about you: Temperature Pulse Respiration Blood pressure 97.5 degrees 87/minute 16/minute 137/87 Oniel Prescott MA 11/02/2024 2:27 PM Signed Patient Identification confirmed: yes. Injection given and documented on OCT per provider order. 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 - levothyroxine (SYNTHROID) 50 mcg tablet Take [...] once daily. 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 Anemia [D64.9] 03/13/2023 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 deficie*03/13/2023 Prescriptions ordered this encounter Disp Refills Start End CYANOCOBALAMIN (VIT B-12) 1,000 MCG/* 11/02/2024 11/02/2024 Route: INTRAMUSCULA Encounter Status:Closed by ONIEL PRESCOTT on 11/02/24NoPomerene Hospitalon 79-85-2726BUCZWTROnqbp Visit (HEMASA) IVONNE CESPEDES ([id number]) 1955 F Date Time Provider Department 10/13/24 2:15 PM [facility] NURSE ERVIN VILLASENOR During your visit today, we recorded the following information about you: Temperature Pulse Respiration Blood pressure 97.4 degrees 84/minute 16/minute 110/72 Shirley Pierre MA 10/13/2024 2:04 PM Signed Patient Identification confirmed: yes. Injection given and documented on OCT per provider order. 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 - levothyroxine (SYNTHROID) 50 mcg tablet Take [...] once daily. 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 Address: [address] [place], [place] [address]Yqcewccnq By: #### 91412-6 #### [facility] CLIA [id number] [address] [place] [address]Hzilkesmg/100 WBC (Bld)0.8 %NormalTwin City Hospital Comment on above:Order Comment: Specimen Type: BLOOD SPECIMEN [facility] Address: [address] [place], [place] [address]Performed By: #### 89849-1 #### [facility] CLIA [id number] [address] [place] [address] [id number] cell count method Nom (Bld)AutoNormalClevelSelect Specialty Hospitalment on above:Order Comment: Specimen Type: BLOOD SPECIMEN Ordering Facility: [facility] Address: [address] [place], [place] [address]Performed By: #### 10864-6 #### [facility] CLIA [id number] [address] [place] [address] [id number] (Bld) [#/Vol]0.22 10*3/uLNormal<0.46[facility] on above:Order Comment: Specimen Type: BLOOD SPECIMEN Ordering Facility: [facility] Address: [address] [place], [place] [address]Performed By: #### 50001-0 #### [facility] CLIA [id number] [address] [place] [address] [id number]/100 WBC (Bld)3.5 %NormalT[facility] Comment on above:Order Comment: Specimen Type: BLOOD SPECIMEN Ordering Facility: [facility] Address: [address] [place], [place] [address]Performed By: #### 91494-8 #### [facility] CLIA [id number] [address] [place] [address] 82273Dtsowtoptef distribution width (RBC) [Ratio]14.9 %Normal 11.5-15.0[facility] on above:Order Comment: Specimen Type: BLOOD SPECIMEN [facility] Address: [address] [place], [place] [address]Performed By: #### 46793-6 #### [facility] CLIA [id number] [address] [place] [address] 66881Afyytngfzv (Bld) [Volume fraction]39.4 %Fctlts55.0-46.0 [facility] on above:Order Comment: Specimen Type: BLOOD SPECIMEN [facility] Address: [address] [place], [place] [address]Performed By: #### 41267-1 #### [facility] CLIA [id number] [address] [place] [address] 52063Zpszynssoe (Bld) [Mass/Vol]12.7 g/yZHyigoj09.5-15.5CAshtabula County Medical Center on above:Order Comment: Specimen Type: BLOOD SPECIMEN [facility] Address: [address] [place], [place] [address]Performed By: #### 34951-8 #### [facility] CLIA [id number] [address] [place] [address] 02704Liofmnur granulocytes (Bld) [#/Vol]10*3/uLNormal<0.10[facility] on above:Order Comment: Specimen Type: BLOOD SPECIMEN [facility] Address: [address] [place], [place] [address]Performed By: #### 01553-2 #### [facility] CLIA [id number] [address] [place] [address] 31478Cfoezffz granulocytes/100 WBC (Bld)0.3 %NormalAultman Alliance Community Hospital on above:Order Comment: Specimen Type: BLOOD SPECIMEN [facility] Address: [address] [place], [place] [address]Performed By: #### 55353-8 #### [facility] IA [id number] [address] [place] [address] 71653Qslpqpcokmm (Bld) [#/Vol]1.59 10*3/uLNormal1.00-4.00[facility] on above:Order Comment: Specimen Type: BLOOD SPECIMEN [facility] Address: [address] [place], [place] [address]Performed By: #### 90816-9 #### [facility] CLIA [id number] [address] [place], [place] [address]Ecdpssaobvo/100 WBC (Bld)25.0 %NormalAultman Alliance Community Hospital on above:Order Comment: Specimen Type: BLOOD SPECIMEN [facility] Address: [address] [place], [place] [address]Performed By: #### 28632-8 #### [facility] CLIA [id number] [address], [place] [address]KYV (RBC) [Entitic mass]28.2 icUjuicg73.0-34.0[facility] on above:Order Comment: Specimen Type: BLOOD SPECIMEN [facility] Address: [address] [place], [place] [address]Performed By: #### 85870-3 #### [facility] CLIA [id number] [address] [place] [address] 51211DTIT (RBC) [Mass/Vol]32.2 g/tSXynkmj98.5-36.0[facility] on above:Order Comment: Specimen Type: BLOOD SPECIMEN [facility] Address: [address] [place], [place] [address]Performed By: #### 21068-3 #### [facility] CLIA [id number] [address] [place] [address] 92711YNJ (RBC) [Entitic vol]87.4 oDQhzzay09.0-100.0[facility] on above:Order Comment: Specimen Type: BLOOD SPECIMEN [facility] Address: [address] [place], [place] [address]Performed By: #### 14055-4 #### [facility] CLIA [id number] [address], [place] [address]Vruzatisn (Bld) [#/Vol]0.51 10*3/uLNormal<0.87[facility] on above:Order Comment: Specimen Type: BLOOD SPECIMEN [facility] Address: [address] [place], [place] [address]Performed By: #### 80236-2 #### [facility] CLIA [id number] [address] [place] [address] 49374Pjnlxmfwk/100 WBC (Bld)8.0 %NormalTwin City Hospital Comment on above:Order Comment: Specimen Type: BLOOD SPECIMEN [facility] Address: [address] [place], [place] [address]Performed By: #### 17335-8 #### [facility] CLIA [id number] [address] [place] [address] 89811Ridhgookqsu (Bld) [#/Vol]3.96 10*3/uLNormal1.45-7.50[facility] on above:Order Comment: Specimen Type: BLOOD SPECIMEN [facility] Address: [address] [place], [place] [address]Performed By: #### 02313-1 #### [facility] CLIA [id number] [address] [place] [address] 32381Qzuzslzbwrr/100 WBC (Bld)62.4 %NormalAultman Alliance Community Hospital on above:Order Comment: Specimen Type: BLOOD SPECIMEN [facility] Address: [address] [place], [place] [address]Performed By: #### 64448-6 #### [facility] CLIA [id number] [address] [place] [address] 43137Hmbtuhzjz RBC (Bld) [#/Vol]10*3/uLNormal<0.01[facility] on above:Order Comment: Specimen Type: BLOOD SPECIMEN [facility] Address: [address] [place], [place] [address]Performed By: #### 12511-4 #### [facility] CLIA [id number] [address], [place] [address]Btcyupsmu RBC/100 WBC (Bld) [Ratio]0.0 /100 WBCNoalCAshtabula County Medical Center on above:Order Comment: Specimen Type: BLOOD SPECIMEN [facility] Address: [address] [place], [place] [address]Performed By: #### 96412-0 #### [facility] CLIA [id number] [address], [place] [address]Xehledby mean volume (Bld) [Entitic vol]9.3 fLNormal9.0-12.7 [facility] on above:Order Comment: Specimen Type: BLOOD SPECIMEN [facility] Address: [address] [place], [place] [address]Performed By: #### 41974-4 #### [facility] CLIA [id number] [address] [place] [address] 86044Fmvqfxacr (Bld) [#/Vol]189 10*3/lFWrxvub030-889HaeysrgizAultman Alliance Community Hospital on above:Order Comment: Specimen Type: BLOOD SPECIMEN [facility] Address: [address] [place], [place] [address]Performed By: #### 42105-5 #### [facility] CLIA [id number] [address] [place] [address] 40060THS (Bld) [#/Vol]4.51 10*6/uLNormal3.90-5.20[facility] on above:Order Comment: Specimen Type: BLOOD SPECIMEN [facility] Address: [address] [place], [place] [address]Performed By: #### 56359-2 #### [facility] CLIA [id number] [address] [place] [address] 35362WZG (Bld) [#/Vol]6.35 10*3/uLNormal3.70-11.00[facility] on above:Order Comment: Specimen Type: BLOOD SPECIMEN [facility] Address: [address] [place] [address]Performed By: #### 87228-0 #### [facility] CLIA [id number] [address] [place] [address] 19289SOF CBC W AUTO DIFF BLDon 95-70-4418Ebzqhzfqq/100 WBC (Bld)0.8 %[facility] BASOPHILS # BLD AUTO0.05[facility]IC[facility] DIFFERENTIAL METHOD BLDAutoNOMSSM Health Care EOSINOPHIL # BLD AUTO0.22NITennova Healthcare LYMPHOCYTES # BLD AUTO1.59NOReynolds County General Memorial Hospital MONOCYTES # BLD AUTO0.51NINF [facility] NEUTROPHILS # BLD AUTO3.96[facility] NRBC # BLD AUTO <0.01NIC[facility] NRBC/100 WBC BLD-RTO0/100 WBCResearch Belton Hospital PLATELET # BLD YBMK264OCSEResearch [facility]ton Hospital PMV BLD AUTO9.3 fL9.0 - 12.7 fLResearch [facility]ton Hospital WBC # BLD AUTO6.35NOChildren's Mercy NorthlandEosinophils/100 WBC (Bld)3.5 % [facility] CenterErythrocyte distribution width (RBC) [Ratio]14.9 %11.5 - 15.0 % [facility] CenterHematocrit (Bld) [Volume fraction]39.4 %36.0 - 46.0 %[facility] CenterHemoglobin (Bld) [Mass/Vol]12.7 g/dL11.5 - 15.5 g/dLColumbia Regional Hospital GRANULOCYTES # BLD AUTO<0.03NIHouston County Community Hospital GRANULOCYTES/LEUK NFR BLD AUTO0.3 %[facility] CenterLymphocytes/100 WBC (Bld)25 %[facility] HospitalH (RBC) [Entitic mass]28.2 pg26.0 - 34.0 pgLiberty HospitalHC (RBC) [Mass/Vol]32.2 g/dL 30.5 - 36.0 g/dLLiberty HospitalV (RBC) [Entitic vol]87.4 fL80.0 - 100.0 fLNOMS HealthcareMonocytes/100 WBC (Bld)8 %[facility] HealthcareNeutrophils/100 WBC (Bld)62.4 %[facility] HealthcareRBC (Bld) [#/Vol]4.51 10*6/uL3.90 - 5.20 m/uLMissouri Baptist Medical Center Specimen Type: BLOOD SPECIMEN [facility] Address: [facility] [place] [address] Original Ordering Provider: MAIKEL KEYMissouri Baptist Medical CenterCNNURSEon 02-72-5150CYVRWTNUzdky Visit (HEMASA) IVONNE CESPEDES ([id number]) 1955 F Date Time Provider Department 09/07/24 2:45 PM RAFA NURSE ERVIN VILLASENOR During your visit today, we recorded the following information about you: Desirae Sargent MA 09/07/2024 2:34 PM Signed Patient Identification confirmed: yes. Injection given and documented on OCT per provider order. 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 - levothyroxine (SYNTHROID) 50 mcg tablet Take [...] once daily. Problem List As Of Date 09/07/2024 Noted Resolved Ductal carcinoma in situ (DCIS) of breast [D05.*06/11/2019 Anemia [D64.9] 03/13/2023 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 deficie*03/13/2023 Prescriptions ordered this encounter Disp Refills Start End CYANOCOBALAMIN (VIT B-12) 1,000 MCG/* 09/07/2024 09/07/2024 Route: INTRAMUSCULA Encounter Status:Closed by DESIRAE SARGENT on 09/07/24[facility] CenterCNOVSAscension [facility] [id number] (SP) Office (JACKLYN) IVONNE CESPEDES ([id number]) 1955 F Date Time Provider Department 09/07/24 2:20 PM MAIKEL LUNSFORD During your visit today, we recorded the following information about you: Temperature Pulse Respiration Blood pressure 97.3 degrees 82/minute 16/minute 115/74 Weight Height 59.2 kg 1.524 m Maikel Lunsford MD 09/08/2024 5:45 PM Signed NAME: Ivonne Cespedes [facility] NO.: [id number] DATE OF SERVICE: September 07, 2024 (Martín) Some elements in this clinic note that are critical to medical decision making have been carefully reviewed and included from a prior clinic note dated: March 23, 2024 (Martín) Referring Provider: Rosa Shearer Additional Clinicians involved in Ivonne Cespedes's care: DIAGNOSIS: B12 deficiency History of right breast DCIS ASSESSMENT: 69 year old woman with DCIS diagnosed approximately [...] Continue B12 replacement intramuscularly every month. PLAN: Triage to call results of iron studies B12 shot today and q 4 weeks Repeat labs q 12 weeks RTC in 24 weeks - HPI: CASE HISTORY: Reverse Chronological Order 09/07/2024 - CBC: 6.35 > 12.7 / 39.4 < 189 Iron studies in process 06/15/2024 - CBC: 6.01 > 12.9 / 38.8 < 213 Ferritin: 51.5, TIBC: 312, Transferrin Saturation: 12.5, Vitamin B12: 552, Folate: 17.7 03/23/2024 - CBC: 6.57 > 12.7 / 40.2 < 196 Ferritin: 26.7, TIBC: 370, Transferrin Saturation: 25.1, Vitamin B12: 428, Folate: 11.8 12/05/2023 - CBC: 6.31 > 13.0 / 40.7 < 193 Ferritin: 18.2, TIBC: 384, Transferrin Saturation: 12.8, Vitamin B12: 405, Folate: 10.2 06/06/2023 - Mammogram: Category 2 benign 02/13/2023 - B12 level 144 11/01/2022 - CBC 5.7 > 13.5/41.6 < 218 normal differential. 03/2022 - FibroScan F0-F1 no steatosis. 01/2022 - CT A/P at [facility] hepatomegaly with hepatic steatosis. 06/2021 - CT A/P right retrocrural lymph node. 11/25/2018 - Right breast lumpectomy Dr. 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 10/27/2018 - Biopsy showed ductal carcinoma in situ high nuclear grade. The estrogen receptor was positive at 10-20% with progesterone receptor negative DCIS Right Breast - [facility] 10/22/2018 - Mammogram showing suspicious changes in the right breast. grouping of numerous pleomorphic calcifications within the posterior upper inner quadrant. Updated Visit, September 07, 2024: Ivonne returns for a follow up. She is not anemic today, results of iron studies are in process. Will continue B12 injections given prior deficiency. She reports she was diagnosed with fibromyalgia. Updated Visit, March 23, 2024: Ivonne returns [...] Visit, June 05, 2023: Mammogram done in [place] yesterday Was told she has pancreatic insufficiency B12 levels remain low. Initial Visit, March 13, 2023: Ivonne Cespedes presents today for a Hematology and Oncology evaluation. 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 [...] PERFORMANCE STATUS: 0 PHYSICAL EXAMINATION: Vitals: BP 115/74 Pulse 82 Temp (Src) 97.3 (Axillary) Resp 16 Ht 5' 0 (1.52m) Wt 130 lb 8.2 oz (59.2kg) SpO2 (more content not included)...Normal [facility] ClevelandCNPNon 62-86-5536DAFRWiqkkmxte (NCCAP) IVONNE CESPEDES ([id number]) 1955 F Date Time Provider Department 09/07/24 MAIKEL LUNSFORD During your visit today, we recorded the following information about you: Cely Finney 09/07/2024 3:26 PM Signed Triage: Please see for results. Patient states at today's visit she will call to schedule her future appointments needed. Michelle Grullon, RN 09/09/2024 7:56 AM Signed Maikel Lunsford MD P [facility] Triage Pool Iron studies are stable and no need for replacement, anemia is improved overall Michelle Shelton, RN 09/09/2024 10:09 AM Signed Pt aware and agreeable to plan of care. Arcelia/Jo: pt left the other day d/t scheduling busy. Please call her to schedule appts per AVS below. YAA Cid Brittany 09/09/2024 11:01 AM Signed Patient has been scheduled and notified. Thanks! Cely Finney Allergies As of Date: 09/07/2024 Noted Allergy Reaction BUPROPION 12/22/2004 12 - Shortness of Breath ZYBAN (BUPROPION HCL (SMOKING DET*11/07/2018 12 - Shortness of Breath Date Reviewed: 09/07/2024 Reviewed by: Shirley Pierre MA - Fully Assessed Reason for Visit: Results [95] Prescriptions as of 09/09/2024 - DULoxetine (CYMBALTA) 60 mg capsule Take 60 mg by mouth. - levothyroxine (SYNTHROID) 50 mcg tablet Take [...] once daily. Problem List As Of Date 09/07/2024 Noted Resolved Ductal carcinoma in situ (DCIS) of breast [D05.*06/11/2019 Anemia [D64.9] 03/13/2023 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 deficie*03/13/2023 Encounter Status:Closed by CELY FINNEY on 09/09/24NormalCleveland Nov[facility] Pender Medical CenterComprehensive metabolic 2000 panelon 82-61-1607Fbhodnd [Mass/Vol]4.0 g/dLNormal3.9-4.9ClevelKindred Hospital - GreensboroComment on above:Order Comment: Specimen Type: BLOOD SPECIMENOrdering Facility: [facility] Address:[address] [place], [place] [address]Performed By: #### 33328-9 ####[facility] LABCLIA [id number] [place] [address]JCH [Catalytic activity/Vol]64 U/ZNsnphc47-652SlmgsgqioAultman Alliance Community Hospital on above:Order Comment: Specimen Type: BLOOD SPECIMENOrdering Facility: [facility] Address:[address] [place], [place] [address]Performed By: #### 37878-2 ####[facility] LABCLIA [id number] [place], [place] [address]YSO [Catalytic activity/Vol]13 U/LNormal7-38[facility] on above:Order Comment: Specimen Type: BLOOD SPECIMENOrdering Facility: [facility] Address:[address] [place], [place] [address]Performed By: #### 27237- 8 ####[facility] LABCLIA [id number] [place] RHODESBANNER G[facility] MED[facility] [place], [place] [address]Cfefi gap [Moles/Vol]12 mmol/LNormal8-15[facility] on above:Order Comment: Specimen Type: BLOOD SPECIMENOrdering Facility: [facility] Address:[address] [place], [place] [address]Performed By: #### 24708-5 ####[facility] LABCLIA [id number] [place], [place] [address]LQL [Catalytic activity/Vol]16 U/EZvwyhl15-01RvirriwmsAultman Alliance Community Hospital on above:Order Comment: Specimen Type: BLOOD SPECIMENOrdering Facility: [facility] Address:[address] [place], [place] [address]Performed By: #### 18510-1 ####[facility] LABCLIA [id number] [place] HOFFMANNRAULBANNER GATE[place] [address] Bilirubin [Mass/Vol]0.2 mg/dLNormal0.2-1.3CAshtabula County Medical Center on above:Order Comment: Specimen Type: BLOOD SPECIMENOrdering Facility: [facility] Address:[address] [place], [place] [address]Performed By: #### 00541-6 ####[facility] LABCLIA [id number] [place], [place] [address]Bvpuzkv [Mass/Vol]9.7 mg/dLNormal8.5-10.2CAshtabula County Medical Center on above:Order Comment: Specimen Type: BLOOD SPECIMENOrdering Facility: [facility] Address:[address] [place], [place] [address]Performed By: #### 69436-7 ####[facility] LABCLIA [id number] [facility]ADMASAMARIT[facility] PAC[facility] COMM[facility] HOSPITALRAULGR[place], [place] [address]Kxcbaptv [Moles/Vol]106 mmol/QWyhwvr72-885KjkpfgukqAultman Alliance Community Hospital on above: Order Comment: Specimen Type: BLOOD SPECIMENOrdering Facility: [facility] Address:[address] [place], [place] [address]Performed By: #### 08207- 8 ####[facility] LABCLIA [id number] [facility] [place], [place] [address]ZA7 [Moles/Vol]26 mmol/QQxbmev26-22PktkffdafAultman Alliance Community Hospital on above:Order Comment: Specimen Type: BLOOD SPECIMENOrdering Facility: [facility] Address:[address] [place], [place] [address]Performed By: #### 47696-3 ####[facility] LABCLIA [id number] [place], [place] [address]Hosukmvfbk [Mass/Vol]0.70 mg/dL Normal0.58-0.96[facility] on above:Order Comment: Specimen Type: BLOOD SPECIMENOrdering Facility: [facility] Address:[address] [place], [place] [address]Performed By: #### 27098-7 ####[facility] LABCLIA [id number] [facility] [place], [place] [address]Aanxrbefnt and Glomerular filtration rate.predicted panel (S/P/Bld)93 mL/min/1.73m???Normal>=60[facility] on above:Order Comment: Specimen Type: BLOOD SPECIMENOrdering Facility: [facility] Address:[address] [place], [place] [address]Lhprfo Comment: Estimated Glomerular Filtration Rate (eGFR) is calculated using the 2020 CKD-EPI creatinine equation. This equation utilizes serum creatinine, sex, and age as parameters. The creatinine assay has traceable calibration to isotope dilution- mass spectrometry. Refer to KDIGO guidelines for clinical interpretation. In patients with unstable renal function, e.g. those with acute kidney injury, the eGFR may not accurately reflect actual GFR.Performed By: #### 07280-6 ####[facility] LABCLIA [id number] [place], [place] [address]Iijhlss [Mass/Vol]112 mg/uVQqmw98-11KabhkkqgaAultman Alliance Community Hospital on above:Order Comment: Specimen Type: BLOOD SPECIMENOrdering Facility: [facility] Address:[address] [place], [place] [address], [place] [address]Jofzel Comment: The [place] Diabetes Association (ADA) provides guidance for cutoff values for fasting glucose and random glucose. The ADA defines fasting as no caloric intake for at least 8 hours. Fasting plasma glucose results between 100 to 125 mg/dL indicate increased risk for diabetes (prediab etes). Fasting plasma glucose results greater than or [...] Standards of Medical Care in Diabetes 2016, [place] [employer] Association. Diabetes Care. 2016.39(Suppl 1).Performed By: #### 41944-1 ####[facility] LABCLIA [id number] [place], [place] [address]Ecqdgmwgj [Moles/Vol]4.1 mmol/LNormal3.7-5.1CAshtabula County Medical Center on above:Order Comment: Specimen Type: BLOOD SPECIMENOrdering Facility: [facility] Address:[address] [place], [place] [address]Rvnrgdicb By: #### 84809-0 ####[facility] LABCLIA [id number] [place], [place] [address]Hywguto [Mass/Vol]6.9 g/dLNormal6.3-8.0[facility] on above:Order Comment: Specimen Type: BLOOD SPECIMENOrdering Facility: [facility] Address:[address] [place], [place] [address]Performed By: #### 02754- 8 ####[facility] LABCLIA [id number] [place], [place] [address]Awytlr [Moles/Vol]144 mmol/LCkofiz210-308PhsxrwufgAultman Alliance Community Hospital on above:Order Comment: Specimen Type: BLOOD SPECIMENOrdering Facility: [facility] Address:[address] [place], [place] [address]Performed By: #### 36988-4 ####[facility] LABCLIA [id number] [place], [place] [address]Kcax nitrogen [Mass/Vol]17 mg/dLNormal7-21[facility] on above:Order Comment: Specimen Type: BLOOD SPECIMENOrdering Facility: [facility] Address:[address] [place], [place] [address]Performed By: #### 60932-3 ####[facility] LABCLIA [id number] [place], [place] [address]Xfhyunts SerPl-ncon 57-75-0358Fqiphcwc [Mass/Vol]26.4 ng/pUBivbrh36.7-205.1CAshtabula County Medical Center on above:Order Comment: Specimen Type: BLOOD SPECIMENOrdering Facility: [facility] Address:[address] [place], [place] [address]Performed By: #### 41105-8, 2284-8, 2132-9, 2276-4 ####[facility] LABCLIA [id number] [address] AMERICAFolate SerPl-mCncon 37-37-3105Plkxvp [Mass/Vol]12.7 ng/mLNormal>4.7CAshtabula County Medical Center on above:Order Comment: Specimen Type: BLOOD SPECIMENOrdering Facility: [facility] Address:[address] [place] [address] Performed By: #### 54738-2, 2284-8, 2132-9, 2276-4 ####[facility] LABCLIA [id number] [place] [address] [place] AMERICAIron and Iron binding capacity panelon 83-62-4508Fveq [Mass/Vol]48 ug/uWOymkeb77-265QgajwylakAultman Alliance Community Hospital on above:Order Comment: Specimen Type: BLOOD SPECIMEN [facility] Address: [address] [place], [place] [address]Performed By: #### 76969-9 #### [facility] CLIA [id number] [address] [place], [place] [address]Nqno binding capacity [Mass/Vol]343 ug/dISuvgvi601-711 [facility] on above:Order Comment: Specimen Type: BLOOD SPECIMEN [facility] Address: [address] [place], [place] [address]Performed By: #### 38754-2 #### [facility] CLIA [id number] [address] [place], [place] [address]Bobs/TIBC [Molar ratio]14.0 %Low15.0-57.0[facility] on above:Order Comment: Specimen Type: BLOOD SPECIMEN [facility] Address: [address] [place], [place] [address]Performed By: #### 75258-4 #### [facility] CLIA [id number] [address] [place], [place] [address]Egs B12 SerPl-mCncon 02-56-1854Onyzxnyju (Vitamin B12) [Mass/Vol]462 pg/gFSxiyrh518-3130PtmhfyhgbAshtabula County Medical Center on above: Order Comment: Specimen Type: BLOOD SPECIMEN [facility] Address: [facility] [place], [place] [address]Performed By: #### 24640-2 #### [facility] CLIA [id number] [address] [place] [address] 44228PB abdomen pelvis w conon [id number] abdomen pelvis w con [facility] [place] [address] [place] [address] Scan Report Signed Patient: Ivonne Cespedes MR#: [id number] : 1955 Acct:[id number] Age/Sex: 69 / F ADM Date: 08/13/24 Loc: CT Room: Type: [facility] Attending Dr: Donte Leon APRN Copies to: Donte Leon APRN Ordering Provider: Donte Leon APRN Date of Service: 08/13/24 CT/CT abdomen pelvis w con: K57.90 - Diverticulosis of intestine, part unspecified, w... CT ABDOMEN AND PELVIS WITH INTRAVENOUS CONTRAST: CLINICAL HISTORY: cramping nausea lower abdominal pain. COMPARISON: Outside CT abdomen and pelvis study 06/26/2021. No report available. TECHNIQUE: Spiral images were obtained through the abdomen and pelvis following the administration of intravenous contrast. This CT exam was performed using one or more following dose reduction te chniques: Automated exposure control, adjustment of the mA and/or kV according to patient size, or use of iterative reconstruction technique. FINDINGS: Lung Bases: [Mild lung scarring.] Organs:Gallbladder has been removed. Liver portal vein spleen pancreas and adrenal glands appear unremarkable. No enhancing renal mass or hydronephrosis. Abdominal aorta appears normal in caliber.[ GI: Stomach is grossly unremarkable. Small bowel appears nondilated. Appendix is normal. Left colon diverticulosis.[ Pelvis:[Urinary bladder is grossly unremarkable. Uterus has been removed. No adnexal mass.] Peritoneum/Retroperitoneum:No free air, free fluid or lymphadenopathy.[ Abd wall/Bones:No acute findings. Osseous structures demonstrate degenerative change.[ CT/CT abdomen pelvis w con IMPRESSION: No acute findings. Left colon diverticulosis. Impression dictated by: Max Welsh Jr., D.OCiara08/13/2024 3:04 PM Dictation Location: [place] [address] Transcribed By: [facility] 08/13/24 1504 Dictated By: Max Welsh Jr, DO 08/13/24 1500 Signed By: 08/13/24 1504[facility] Physician GroupCNNURSEon [id number] Visit (HEMASA) IVONNE CESPEDES ([id number]) 1955 F Date Time Provider Department 08/11/24 2:15 PM [facility] NURSE ERVIN VILLASENOR During your visit today, we recorded the following information about you: Temperature Pulse Respiration Blood pressure 97.6 degrees 90/minute 16/minute 113/69 Desirae Sargent MA 08/11/2024 3:15 PM Signed Patient Identification confirmed: yes. Injection given and documented on OCT per provider order. 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 Problem List As Of Date 08/11/2024 Noted Resolved Ductal carcinoma in situ (DCIS) of breast [D05.*06/11/2019 Anemia [D64.9] 03/13/2023 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 deficie*03/13/2023 Prescriptions ordered this encounter Disp Refills Start End CYANOCOBALAMIN (VIT B-12) 1,000 MCG/* 08/11/2024 08/11/2024 Route: INTRAMUSCULA Encounter Status:Closed by DESIRAE SARGENT on 08/11/24[facility] [id number] Visit (HEMASA) IVONNE CESPEDES ([id number]) 1955 F Date Time Provider Department 07/13/24 2:00 PM [facility] NURSE ERVIN VILLASENOR During your visit today, we recorded the following information about you: Temperature Pulse Respiration Blood pressure 97.6 degrees 86/minute 18/minute 106/67 Pepe Yadav MA 07/13/2024 2:16 PM Signed Patient Identification confirmed: yes. Injection given and documented on OCT per provider order. 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 Problem List As Of Date 07/13/2024 Noted Resolved Ductal carcinoma in situ (DCIS) of breast [D05.*06/11/2019 Anemia [D64.9] 03/13/2023 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 deficie*03/13/2023 Visit Notes: >> Pepe Yadav MA Mon Jul 13, 2024 2:14 PM Status: Signed Patient Identification confirmed: yes. Injection given and documented on OCT per provider order. Pepe Yadav MA Prescriptions ordered this encounter Disp Refills Start End CYANOCOBALAMIN (VIT B-12) 1,000 MCG/* 07/13/2024 07/13/2024 Route: INTRAMUSCULA Encounter Status:Closed by PEPE YADAV on 07/13/24[facility] [id number] (HEMASA) CESPEDESIVONNE ([id number]) 1955 F Date Time Provider Department 06/23/24 MICHELLE SHELTONMAMI During your visit today, we recorded the following information about you: Michelle Shelton RN 06/23/2024 9:31 AM Signed Pt concerned of iron results. Complains of fatigue and shortness of breath. No fever or chills or recent illness. Pt is scheduled for Colonoscopy Saturday with Dr Horton. German: please advise: pt does not take iron supplements at home Anali: please watch for colonoscopy results YAA Cid Vivek, MD 06/23/2024 12:32 PM Signed Iron is decreased and could get some IV iron. However, she is not anemic at all and I suspect her fatigue and SOB is not related - she should check in with PCP - I would usually think it is either caused by heart, lung issues or thyroid. Those are things her PCP would look into. Michelle Shelton, YAA 06/23/2024 12:58 PM Signed Pt aware and will call PCP for further eval. Labs faxed to Dr Boggs. She will not get Iron at this time, she will call back, if she decides to schedule. Appts verified for follow up. Pt denies further questions, needs or concerns at this time. Michelle Shelton RN Allergies As of Date: 06/23/2024 Noted Allergy Reaction BUPROPION 12/22/2004 12 - Shortness of Breath ZYBAN (BUPROPION HCL (SMOKING DET*11/07/2018 12 - Shortness of Breath Date Reviewed: 03/23/2024 Reviewed by: Desirae Sargent MA - Fully Assessed Reason for Visit: Iron results [Other] Prescriptions as of 06/23/2024 - levothyroxine (SYNTHROID) 50 mcg tablet Take [...] once daily. Problem List As Of Date 06/23/2024 Noted Resolved Ductal carcinoma in situ (DCIS) of breast [D05.*06/11/2019 Anemia [D64.9] 03/13/2023 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 deficie*03/13/2023 Encounter Status:Closed by MICHELLE SHELTON on 06/23/24[facility] CBC W AUTO DIFF BLDon 30-69-7607Aiwbbghfd/100 WBC (Bld)0.5 %[facility] BASOPHILS # BLD AUTO0.03[facility] DIFFERENTIAL METHOD BLDAutoNOMSSM Health Care EOSINOPHIL # BLD AUTO0.12[facility] LYMPHOCYTES # BLD AUTO0.93LowResearch Belton Hospital MONOCYTES # BLD AUTO0.72[facility]IC[facility] NEUTROPHILS # BLD AUTO4.18[facility] NRBC # BLD AUTO<0.01 [facility] NRBC/100 WBC BLD-RTO0/100 WBCResearch [facility]ton Hospital PLATELET # BLD ALKH385MAFTResearch [facility]ton Hospital PMV BLD AUTO8.9 fLLow9.0 - 12.7 fLResearch Belton Hospital WBC # BLD AUTO6.01[facility] CenterEosinophils/100 WBC (Bld)2 %[facility] CenterErythrocyte distribution width (RBC) [Ratio]13.9 %11.5 - 15.0 %[facility] CenterHematocrit (Bld) [Volume fraction]38.8 %36.0 - 46.0 %[facility] Hemoglobin (Bld) [Mass/Vol]12.9 g/dL11.5 - 15.5 g/dLColumbia Regional Hospital GRANULOCYTES # BLD AUTO0.03NIHouston County Community Hospital GRANULOCYTES/LEUK NFR BLD AUTO 0.5 %[facility] CenterInterpretation and review of laboratory resultsAbnormalMissouri Baptist Medical CenterLymphocytes/100 WBC (Bld)15.5 %[facility] HospitalH (RBC) [Entitic mass] 28.4 pg26.0 - 34.0 pgLiberty HospitalHC (RBC) [Mass/Vol]33.2 g/dL30.5 - 36.0 g/dLLiberty HospitalV (RBC) [Entitic vol]85.5 fL80.0 - 100.0 fLMissouri Baptist Medical Center Monocytes/100 WBC (Bld)12 %NOMS HealthcareNeutrophils/100 WBC (Bld)69.5 %NOMS HealthcareRBC (Bld) [#/Vol]4.54 10*6/uL3.90 - 5.20 m/uLNOOR HealthcareSpecimen Type: BLOOD SPECIMEN Ordering Facility: [facility] Address: [address] [place] [address] Original Ordering Provider: MAIKEL [place] TOMOSYNTHESIS SCREENING BIon 50-59-6275[place] [address] Mammography Report Signed Patient: IVONNE CESPEDES MR#: [id number] : 1955 Acct:[id number] Age/Sex: 69 / F ADM Date: 06/05/24 Loc: MAMMO Attending Dr: FRANCISCA ROJAS Ordering Physician: FRANCISCA ROJAS Results: Date of Service: 06/05/24 Follow Up: Procedure(s): MM tomosynthesis screening BI Accession Number(s): [id number] cc: FRANCISCA ROJAS Patient Name: IVONNE CESPEDES MR#: [id number] : 1955 Exam Date: 06/05/2024 Ordering Doctor: [...] colon cancer at age 52. LOCATION: [facility] BREAST COMPOSITION: The breasts are extremely [...] PALPABLE LUMP SHOULD BE BIOPSIED. Dictated by: Alexandro Melton MD on 06/08/2024 at 09:05 Approved by: Alexandro Melton MD on 06/08/2024 at 09:07 Dictated By: Alexandro Melton M.D. Signed By: 06/08/24907 DD/ 6 TD/TT: Tank Carpenter:TBHRadiology, Radiologist, - 06/08/2024 [place] [address] Mammography Report Signed Patient: IVONNE CESPEDES MR#: [id number] : 1955 Acct:[id number] Age/Sex: 69 / F ADM Date: 06/05/24 Loc: MAMMO Attending Dr: FRANCISCA ROJAS Ordering Physician: FRANCISCA ROJAS Results: Date of Service: 06/05/24 Follow Up: Procedure(s): MM tomosynthesis screening BI Accession Number(s): [id number] cc: FRANCISCA ROJAS Patient Name: IVONNE CESPEDES MR#: [id number] : 1955 Exam Date: 06/05/2024 Ordering Doctor: [...] colon cancer at age 52. LOCATION: [facility] BREAST COMPOSITION: The breasts are extremely [...] PALPABLE LUMP SHOULD BE BIOPSIED. Dictated by: Alexandro Melton MD on 06/08/2024 at 09:05 Approved by: Alexandro Melton MD on 06/08/2024 at 09:07 Dictated By: Alexandro Melton M.D. Signed By: 06/08/24907 DD/ 6 TD/TT: Tank Carpenter: KAREN [facility] ToledoRadiology Study observation (narrative)[facility] CenterMM TOMOSYNTHESIS SCREENING BIOrdered By: Radiologist Radiology on 70-79-8564[facility] Work Phone: ambulatory Visit Summaryon 20-58-1750Izlxcjwndm Visit SummaryAmbulatory Visit Summary IVONNE CESPEDES :1955 Visit Date:04/06/2024 Ambulatory Visit Instructions Your Diagnosis Fatty liver History of colon polyps Family history of colon cancer Bile salt-induced diarrhea Your Care Team Attending Physician - Jose SOMMERS, Liborio Chin Primary Care Physician - AMBROSE SOMMERS, NRUYS Shaikh This Is Your Medications List colesevelam (Welchol 625 mg Tab) hyoscyamine (Levsin 0.125 mg SL Tab) Contact prescribing physician if questions or concerns acetaminophen-chlorzoxazone (Extra Strength Tylenol Aches and Strains) ascorbic [...] EST With: Jose SOMMERS, Liborio Chin Where: [facility] [address] [facility] [address] [place] [address]- Medications What How Much When Why Instructions New colesevelam (Welchol 625 mg Tab) 3 Tablets By Mouth 2 times a day Fatty liver History of colon polyps Family history of colon cancer Bile salt-induced diarrhea Pickup at [facility]/pharmacy #[id number] New hyoscyamine (Levsin 0.125 mg SL Tab) 1 Tablets By Mouth 4 times a day as needed for for spasm Fatty liver History of colon polyps Family history of colon cancer Bile salt-induced diarrhea Pickup at [facility]/pharmacy #[id number] Unchanged acetaminophen-chlorzoxazone (Extra Strength Tylenol Aches and Strains) 1 [...] Tablets By Mouth At bedtime Contact prescribing physicianif questions or concerns Pharmacy Information [facility]/pharmacy #[id number]: [address], [place] [id number] [phone] Allergies Wellbutrin (Respiratory distress) Zyban (Respiratory distress) [...] you for choosing us for your care. [facility] HospitalGastro[facility]ology Office/Clinic Noteon 68-53-2434Fulfjqbnnrkfzsih Office/Clinic NoteGastroenterology Office/Clinic Note Chief Complaint follow up to [...] liver, not elsewhere classified) CT 01/2022 at [facility] showed hepatomegaly and hepatic steatosis. Previous [...] 85.3 fL (01/22/24) Chloride: 104 mmol/L (01/22/24) Pershing Absolute: 0.6 E9/L (01/22/24) CO2: 30 mmol/L (01/22/24) Pershing Auto: 9.9 % (01/22/24) Creatinine: 0.7 mg/dL [...] (change of) liver, not elsewhere classified) Ordered: colesevelam, 1,875 mg = 3 tab(s), Oral, BID, # 180 tab(s), Refills(s) 0, Pharmacy: [facility]/pharmacy #[id number], 152, cm, 04/06/24 12:35:00 EDT, Height/Length Dosing, 56, kg, 04/06/24 12:35:00 EDT, Weight Dosing hyoscyamine, 0.125 mg = 1 tab(s), Oral, QID, PRN for spasm, # 40 tab(s), Refills(s) 0, Pharmacy: [facility]/pharmacy #[id number], 152, cm, 04/06/24 12:35:00 EDT, Height/Length Dosing, 56, kg, 04/06/24 12:35:00 EDT, Weight Dosing 2. History of colon polyps (Z86.010: Personal history of colonic polyps) Ordered: colesevelam, 1,875 mg = 3 tab(s), Oral, BID, # 180 tab(s), Refills(s) 0, Pharmacy: [facility]/pharmacy #6177, 152, cm, 04/06/24 12:35:00 EDT, Height/Length Dosing, 56, kg, 04/06/24 12:35:00 EDT, Weight Dosing hyoscyamine, 0.125 mg = 1 tab(s), Oral, QID, PRN for spasm, # 40 tab(s), Refills(s) 0, Pharmacy: [facility]/pharmacy #[id number], 152, cm, 04/06/24 12:35:00 EDT, Height/Length Dosing, 56, kg, 04/06/24 12:35:00 EDT, Weight Dosing 3. Family history of colo (more content not included)...[facility] HospitalComment on above:Result Comment: Electronically Signed By: Jose SOMMERS, Liborio Chin\.br\Date and Time Signed: 04/06/2412:59 EDTXR Knee - left 1 or 2 Viewson 14-47-6224[place] [address] XRay Report Signed Patient: IVONNE CESPEDES MR#: [id number] : 1955 Acct:[id number] Age/Sex: 68 / F ADM Date: 03/17/24 Loc: NADEGE Attending Dr: NURYS BOGGS Ordering Physician: NURYS BOGGS Date of Service: 03/17/24 Procedure(s): XR knee LT 2V Accession Number(s): [id number] cc: NURYS BOGGS ; FRANCISCA ROJAS [place] [id number] Patient Name: IVONNE CESPEDES MRN: [id number] date: 1955 Sex: F Assigned Patient Location: RAD Current Patient Location: Accession/Order Number: [id number] Exam Date: 03/17/2024 12:00 Report Date: 03/18/2024 07:39 At the request of: NURYS BOGGS Procedure: XR knee LT 2V PROCEDURE: XR knee LT 2V COMPARISON: None. HISTORY: Fall In Home, Contusion Left Knee, Left Knee Pain FINDINGS: BONES:No acute fracture or dislocation. Minimal degenerative changes with marginal osteophyte formation SOFT TISSUES:Negative. No visible soft tissue swelling. EFFUSION:None visible. OTHER: Negative. XR/XR knee LT 2V IMPRESSION: Minimal osteoarthritis Electronically authenticated by: ALEXANDRO MELTON Date: 03/18/2024 07:39 Dictated By: Alexandro Melton M.D. Signed By: 03/18/2441 DD/ 8 TD/TT: Tank Carpenter:TBHRadiology, Radiologist, MD - 03/18/2024 [place] [address] XRay Report Signed Patient: IVONNE CESPEDES MR#: [id number] : 1955 Acct:[id number] Age/Sex: 68 / F ADM Date: 03/17/24 Loc: [facility] Attending Dr: NURYS BOGGS Ordering Physician: NURYS BOGGS Date of Service: 03/17/24 Procedure(s): XR knee LT 2V Accession Number(s): [id number] cc: NURYS BOGGS ; FRANCISCA ROJAS [place] [address] Patient Name: IVONNE CESPEDES MRN: [id number] date: 1955 Sex: F Assigned Patient Location: [facility] Current Patient Location: Accession/Order Number: [id number] Exam Date: 03/17/2024 12:00 Report Date: 03/18/2024 07:39 At the request of: NRUYS BOGGS Procedure: XR knee LT 2V PROCEDURE: XR knee LT 2V COMPARISON: None. HISTORY: Fall In Home, Contusion Left Knee, Left Knee Pain FINDINGS: BONES:No acute fracture or dislocation. Minimal degenerative changes with marginal osteophyte formation SOFT TISSUES:Negative. No visible soft tissue swelling. EFFUSION:None visible. OTHER: Negative. XR/XR knee LT 2V IMPRESSION: Minimal osteoarthritis Electronically authenticated by: ALEXANDRO MELTON Date: 03/18/2024 07:39 Dictated By: Alexandro Melton M.D. Signed By: 03/18/2441 DD/ 0739 TD/TT: Tank Carpenter: KAREN HealthcareRadiology Study observation (narrative)[facility] HealthcareXR Knee - left 1 or 2 ViewsOrdered By: Radiologist Radiology on 97-15-0471RBXX[facility] Work Phone: cBC w/ Auto Diffon 63-08-0031Yjffadskl/100 WBC (Bld) 1.1 %Normal0.0-2.0[facility] HospitalComment on above:Performed By: #### [id number] #### [facility] [address], [place] [address]Cakatiqor/Leukocytes Auto (Bld) [Pure # fraction]0.1 E9/LNormal 0.0-0.2FMercy Health St. Rita's Medical CenterComment on above:Performed By: #### [id number] #### [facility] [address], [place] [address]Sdhoinjskqs (Bld) [#/Vol]0.2 E9/LNormal0.0-0.5FMercy Health St. Rita's Medical CenterComment on above:Performed By: #### [id number] #### [facility] [address], [place] [address]Gxlxqjkxcoe/100 WBC (Bld)3.3 %Normal0.0-8.0[facility] HospitalComment on above:Performed By: #### [id number] #### [facility] [address], [place] [address]Ntacjjledbk distribution width (RBC) [Ratio]15.0 %High10.9-14.2 [facility] HospitalComment on above:Performed By: #### [id number] #### [facility] [address], [place] [address]Qlejxbvsgr (Bld) [Volume fraction]40.8 %Zmahtt14.0-46.0[facility] HospitalComment on above:Performed By: #### [id number] #### [facility] [address], [place] [address]Txuylcmpti (Bld) [Mass/Vol]13.7 g/ySCetcpm73.0-16.0[facility] HospitalComment on above:Performed By: #### [id number] #### [facility] [address] [place] [address]Eflzhxoiqtl (Bld) [#/Vol]1.9 E9/LNormal1.0-4.0[facility] HospitalComment on above:Performed By: #### [id number] #### [facility] [address] [place] [address]Snxjevcjinu/100 WBC (Bld)31.5 %Hrsjjq78.0-50.0[facility] HospitalComment on above:Performed By: #### [id number] #### [facility] [address] [place] [address]NGD (RBC) [Entitic mass]28.7 pvEqumoh47.0-34.0[facility] HospitalComment on above:Performed By: #### [id number] #### [facility] [address] [place] [address]PTEB (RBC) [Mass/Vol]33.6 g/zGCyxwcy82.4-36.0[facility] HospitalComment on above:Performed By: #### [id number] #### [facility] [address] [place] [address]HLZ (RBC) [Entitic vol]85.3 tSIcuixk96.0-100.0[facility] HospitalComment on above:Performed By: #### [id number] #### [facility] [address] [place] [address]Erqogsikv (Bld) [#/Vol]0.6 E9/LNormal0.2-1.0[facility] HospitalComment on above:Performed By: #### [id number] #### [facility] [address] [place] [address]Odrhkkuxlqz (Bld) [#/Vol]3.3 E9/LNormal2.0-7.5FMercy Health St. Rita's Medical CenterComment on above:Performed By: #### [id number] #### [facility] [address], [place] [address]Bfspnjkmphx/100 WBC (Bld)54.2 %Bbognd45.0-75.0[facility] HospitalComment on above:Performed By: #### [id number] #### [facility] [address], [place] [address]Thnxadvx135.0 E9/WRejpcw784.0-500.0[facility] Comment on above:Performed By: #### [id number] #### [facility] [address], [place] [address]Isujwdin mean volume (Bld) [Entitic vol]7.6 fLNormal6.4-10.8 [facility] HospitalComment on above:Performed By: #### [id number] #### [facility] [address] [place] [address]USU (Bld) [#/Vol]4.8 E12/LNormal4.3-5.9[facility] HospitalComment on above:Performed By: #### [id number] #### [facility] [address] [place] [address]KPN corrected for nucl RBC Auto (Bld) [#/Vol]6.0 E9/LNormal 4.0-11.0[facility] HospitalComment on above:Performed By: #### [id number] #### [facility] [address] [place] [address]RPAIEDPNFCertubj By: SYSTEM SYSTEM on 99-25-8057Dcqlurw [Mass/Vol]4.0 g/dLNormal3.3 - 5.0 gm/dLRemisol ChemAlbumin/Globulin [Mass ratio] 1.2 {ratio}Normal1.1 - 2.2Remisol ChemALP [Catalytic activity/Vol]65 [iU]/d Wvemfp37 - 98 Int._Unit/LRemisol ChemALT No additional P-5'-P [Catalytic activity/Vol]26 [iU]/dNormal6 - 46 Int._Unit/LRemisol ChemAnion gap [Moles/Vol] 10 mmol/LNormal6 - 16 mEq/LRemisol ChemAST [Catalytic activity/Vol]37 [iU]/d Normal5 - 43 Int._Unit/LRemisol ChemBilirubin [Mass/Vol]0.3 mg/dLNormal0.0 - 1.1 mg/dLRemisol ChemCalcium [Mass/Vol]9.6 mg/dLNormal8.9 - 11.1 mg/dLRemisol Chem Chloride [Moles/Vol]104 mmol/BIhjgli205 - 111 mmol/LRemisol ChemCO2 [Moles/Vol] 30 mmol/XPjiasf66 - 31 mmol/LRemisol ChemCobalamin (Vitamin B12) [Mass/Vol]317 pg/kUGyaqti95 - 1500 pg/mLRemisol ChemCreatinine [Mass/Vol]0.7 mg/dLNormal0.5 - 1.3 mg/dLRemisol XtdvzQRD54 mL/min/1.73 d3Rugskk>=59mL/min/1.73 l4Wjgiuxe Chem Globulin (S) [Mass/Vol]3.4 g/dLNormal1.4 - 4.0 gm/dLRemisol ChemGlucose [Mass/Vol]89 mg/pGIshxtr54 - 199 mg/dLRemisol ChemPotassium [Moles/Vol]4.2 mmol/LNormal3.5 - 5.3 mmol/LRemisol ChemProtein [Mass/Vol]7.4 g/dLNormal6.0 - 7.8 gm/dLRemisol ChemSodium [Moles/Vol]140 mmol/BYrkinn018 - 145 mmol/LRemisol ChemUrea nitrogen [Mass/Vol]11 mg/dLNormal5 - 21 mg/dLRemisol ChemUrea nitrogen/Creatinine [Mass ratio]16 mg/ovNjxzyy22 - 20Remisol ChemCMPon 53-29-7276Gdbkmxl [Mass/Vol]4.0 g/dLNormal3.3-5.0[facility] Comment on above:Performed By: #### [id number] #### [facility] [address] [place] [address]Oppvwrb/Globulin (S) [Mass conc ratio]1.1Eqelha3.1-2.2FMercy Health St. Rita's Medical CenterComment on above:Performed By: #### [id number] #### [facility] [address], [place] [address]BCB [Catalytic activity/Vol]65 Int._Unit/VDaoseq18-90BqqmttSelect Medical Trihealth Rehabilitation HospitalComment on above:Performed By: #### [id number] #### [facility] [address], [place] [address]ZYP No additional P-5'-P [Catalytic activity/Vol]26 Int._Unit/L Normal6-46[facility] HospitalComment on above:Performed By: #### [id number] #### [facility] [address], [place] [address]Kfyxc gap [Moles/Vol]10 mmol/LNormal6-16[facility] [facility] Rehabilitation HospitalComment on above:Performed By: #### [id number] #### [facility] [address], [place] [address]XRL [Catalytic activity/Vol]37 Int._Unit/LNormal5-43[facility] HospitalComment on above:Performed By: #### [id number] #### [facility] [address], [place] [address]Pnwiwvhck [Mass/Vol]0.3 mg/dLNormal0.0-1.1FMercy Health St. Rita's Medical CenterComment on above:Performed By: #### [id number] #### [facility] [address], [place] [address]Vejzeyv [Mass/Vol]9.6 mg/dLNormal8.9-11.1FMercy Health St. Rita's Medical CenterComment on above:Performed By: #### [id number] #### [facility] [address], [place] [address]Uduzgitf [Moles/Vol]104 mmol/FUgihpw213-126SzxkbpSelect Medical Trihealth Rehabilitation HospitalComment on above:Performed By: #### [id number] #### [facility] [address], [place] [address]OI2 [Moles/Vol]30 mmol/ZEutepv20-98WrskrwSelect Medical [facility] Comment on above:Performed By: #### [id number] #### [facility] [address], [place] [address]Zoexbbpckv [Mass/Vol]0.7 mg/dLNormal0.5-1.3FMercy Health St. Rita's Medical CenterComment on above:Performed By: #### [id number] #### [facility] [address], [place] [address]Mepesktt (S) [Mass/Vol]3.4 g/dLNormal1.4-4.0[facility] HospitalComment on above:Performed By: #### [id number] #### [facility] [address] [place] [address]Kslokre [Mass/Vol]89 mg/cXYbozzl09-446LgpkosSelect Medical [facility]health Rehabilitation HospitalComment on above:Performed By: #### [id number] #### [facility] [address], [place] [address]Ohkszzjfw [Moles/Vol]4.2 mmol/LNormal3.5-5.3FMercy Health St. Rita's Medical CenterComment on above:Performed By: #### [id number] #### [facility] [address], [place] [address]Vpdfles [Mass/Vol]7.4 g/dLNormal6.0-7.8[facility] HospitalComment on above:Performed By: #### [id number] #### [facility] [address], [place] [address]Zivxay [Moles/Vol]140 mmol/GXmzckf137-822BnvbdmSelect Medical [facility]health Rehabilitation HospitalComment on above:Performed By: #### [id number] #### [facility] [address], [place] [address]Yuhj nitrogen [Mass/Vol]11 mg/dLNormal5-21[facility] HospitalComment on above:Performed By: #### [id number] #### [facility] [address], [place] [address]Atpy nitrogen/Creatinine [Mass ratio]16 No AxjopMhejpj37-95 [facility] HospitalComment on above:Performed By: #### [id number] #### [facility] [address], [place] [address]Dzdhlar for Treatmenton 64-52-7236Iczzvad for Treatment [id number]#1.00TIFFNormalFishThomas B. Finan CenterHEMATOLOGYOrdered By: SYSTEM SYSTEM on 57-71-3614Zmppryqme/100 WBC (Bld) 1.1 %Normal0.0 - 2.0 %Remisol HemeBasophils/Leukocytes Auto (Bld) [Pure # fraction]0.1 E9/LNormal0.0 - 0.2 E9/LRemisol HemeEosinophils (Bld) [#/Vol]0.2 E9/LNormal0.0 - 0.5 E9/LRemisol HemeEosinophils/100 WBC (Bld)3.3 %Normal0.0 - 8.0 %Remisol HemeErythrocyte distribution width (RBC) [Ratio]15.0 %High10.9 - 14.2 %Remisol HemeHematocrit (Bld) [Volume fraction]40.8 %Xnuttp77.0 - 46.0 % Remisol HemeHemoglobin (Bld) [Mass/Vol]13.7 g/hWMtvzix26.0 - 16.0 gm/dLRemisol HemeLymphocytes (Bld) [#/Vol]1.9 E9/LNormal1.0 - 4.0 E9/LRemisol Heme Lymphocytes/100 WBC (Bld)31.5 %Mkmlsx11.0 - 50.0 %Remisol HemeMCH (RBC) [Entitic mass]28.7 imFyxbal48.0 - 34.0 pgRemisol HemeMCHC (RBC) [Mass/Vol]33.6 g/dL Ajakxk99.4 - 36.0 gm/dLRemisol HemeMCV (RBC) [Entitic vol]85.3 bZOxqjkp33.0 - 100.0 fLRemisol HemeMonocytes (Bld) [#/Vol]0.6 E9/LNormal0.2 - 1.0 E9/LRemisol HemeMonocytes/100 WBC (Bld)9.9 %Normal4.0 - 14.0 %Remisol HemeNeutrophils (Bld) [#/Vol]3.3 E9/LNormal2.0 - 7.5 E9/LRemisol HemeNeutrophils/100 WBC (Bld)54.2 % Hpcjcs00.0 - 75.0 %Remisol PcpzLoibnsyb316.0 E9/ALggjik773.0 - 500.0 E9/LRemisol HemePlatelet mean volume (Bld) [Entitic vol]7.6 fLNormal6.4 - 10.8 fLRemisol HemeRBC (Bld) [#/Vol]4.8 E12/LNormal4.3 - 5.9 E12/LRemisol HemeWBC corrected for nucl RBC Auto (Bld) [#/Vol]6.0 E9/LNormal4.0 - 11.0 E9/LRemisol HemeVit B12on 02-88-2184Uknefagpi (Vitamin B12) [Mass/Vol]317 pg/nREkgznh26-5787JaybevSelect Medical Trihealth Rehabilitation HospitalComment on above:Performed By: #### [id number] #### [facility] [address], [place] [address]jPFAhk 56-30-8077cEBK17 mL/min/1.73 v5Ndxlxk>=59[facility] HospitalComment on above:Order Comment: Order added by Discern Expert. Performed By: #### [id number] #### [facility] [address], [place] [address]QK Knee - right 4 Viewson 89-84-2140[address] [address] XRay Report Signed Patient: IVONNE CESPEDES MR#: [id number] : 1955 Acct:[id number] Age/Sex: 68 / F ADM Date: 12/26/23 Loc: RAD Attending Dr: YULIA PRINCE Ordering Physician: YULIA PRINCE of Service: 12/26/23 Procedure(s): XR knee RT 4V Accession Number(s): [id number] cc: FRANCISCA ROJAS ; YULIA PRINCE [place] [id number] Patient Name: IVONNE CESPEDES MRN: [id number] date: 1955 Sex: F Assigned Patient Location: RAD Current Patient Location: RAD Accession/Order Number: [id number] Exam Date: 12/26/2023 14:30 Report Date: 12/26/2023 15:05 At the request of: YULIA PRINCE Procedure: XR knee RT 4V PROCEDURE: XR knee RT 4V COMPARISON: None. HISTORY: Acute pain of right knee M25.561 FINDINGS: BONES:No fracture, acute abnormality, or significant arthropathy. SOFT TISSUES:Negative. No visible soft tissue swelling. EFFUSION:None visible. OTHER: Negative. XR/XR knee RT 4V IMPRESSION: No acute radiographic abnormality Electronically authenticated by: ALEXANDRO MELTON Date: 12/26/2023 15:05 Dictated By: Alexandro Melton M.D. Signed By: 12/26/23 1507 DD/ 1505 TD/TT: Tank Carpenter:MARIA THRadiology, Radiologist, MD - 12/26/2023 [place] [address] XRay Report Signed Patient: IVONNE CESPEDES MR#: [id number] : 1955 Acct:[id number] Age/Sex: 68 / F ADM Date: 12/26/23 Loc: RAD Attending Dr: YULIA PRINCE Ordering Physician: YULIA PRINCE Date of Service: 12/26/23 Procedure(s): XR knee RT 4V Accession Number(s): [id number] cc: FRANCISCA ROJAS ; YULIA PRINCE [address] [address] Patient Name: IVONNE CESPEDES MRN: [id number] date: 1955 Sex: F Assigned Patient Location: RAD Current Patient Location: RAD Accession/Order Number: [id number] Exam Date: 12/26/2023 14:30 Report Date: 12/26/2023 15:05 At the request of: YULIA PRINCE Procedure: XR knee RT 4V PROCEDURE: XR knee RT 4V COMPARISON: None. HISTORY: Acute pain of right knee M25.561 FINDINGS: BONES:No fracture, acute abnormality, or significant arthropathy. SOFT TISSUES:Negative. No visible soft tissue swelling. EFFUSION:None visible. OTHER: Negative. XR/XR knee RT 4V IMPRESSION: No acute radiographic abnormality Electronically authenticated by: ALEXANDRO MELTON Date: 12/26/2023 15:05 Dictated By: Alexandro Melton M.D. Signed By: 12/26/23 1507 DD/ 1505 TD/TT: Tank Carpenter: [facility] HealthcareRadiology Study observation (narrative)[facility] CenterXR Knee - right 4 ViewsOrdered By: Radiologist Radiology on 90-21-4206AXZRMissouri Baptist Medical Center Work Phone: ct LUNG SCREENING LOW DOSEon 71-11-2561IlzA[place] [id number] CT Scan Report Signed Patient: IVONNE CESPEDES MR#: [id number] : 1955 Acct:[id number] Age/Sex: 68 / F ADM Date: 12/02/23 Loc: CT Attending Dr: FRANCISCA ROJAS Ordering Physician: FRANCISCA ROJAS Date of Service: 12/02/23 Procedure(s): CT lung screening low-dose Accession Number(s): [id number] cc: FRANCISCA ROJAS [address] [address] Patient Name: IVONNE CESPEDES MRN: [id number] date: 1955 Sex: F Assigned Patient Location: CT Current Patient Location: CT Accession/Order Number: [id number] Exam Date: 12/02/2023 10:06 Report Date: 12/02/2023 10:56 At the request of: FRANCISCA ROJAS Procedure: CT lung screening low-dose EXAMINATION: CT [...] or pneumothorax. VASCULATURE: No abnormality. ISIDORO: Calcified lymph nodes suggestive of chronic granulomatous [...] year. Electronically authenticated by: CHAPARRO ECKERT Date: 12/02/2023 10:56 Dictated By: Chaparro Eckert M.D. Signed By: 12/02/23 1058 DD/ 1056 TD/TT: Tank Carpenter:TBHRadiology, Radiologist, - 12/02/2023 [place] [address] CT Scan Report Signed Patient: IVONNE CESPEDES MR#: [id number] : 1955 Acct:[id number] Age/Sex: 68 / F ADM Date: 12/02/23 Loc: CT Attending Dr: FRANCISCA ROJAS Ordering Physician: FRANCISCA ROJAS Date of Service: 12/02/23 Procedure(s): CT lung screening low-dose Accession Number(s): [id number] cc: FRANCISCA ROJAS [address] [place] [address] Patient Name: IVONNE CESPEDES MRN: [id number] date: 1955 Sex: F Assigned Patient Location: CT Current Patient Location: CT Accession/Order Number: [id number] Exam Date: 12/02/2023 10:06 Report Date: 12/02/2023 10:56 At the request of: FRANCISCA ROJAS Procedure: CT lung screening low-dose EXAMINATION: CT [...] or pneumothorax. VASCULATURE: No abnormality. ISIDORO: Calcified lymph nodes suggestive of chronic granulomatous [...] year. Electronically authenticated by: CHAPARRO ECKERT Date: 12/02/2023 10:56 Dictated By: Chaparro Eckert M.D. Signed By: 12/02/23 1058 DD/ 55 TD/TT: Tank Carpenter: KAREN HealthcareRadiology Study observation (narrative)NOM HealthcareCT LUNG SCREENING LOW DOSEOrdered By: Radiologist Radiology on 91-65-7600OQBG [employer] Work Phone: xr DEXA AXIAL SKELETONon 43-84-7997C[address] [address] XRay Report Signed Patient: IVONNE CESPEDES MR#: [id number] : 1955 Acct:[id number] Age/Sex: 68 / F ADM Date: 12/02/23 Loc: CT Attending Dr: FRANCISCA ROJAS Ordering Physician: FRANCISCA ROJAS Date of Service: 12/02/23 Procedure(s): XR DEXA axial skeleton Accession Number(s): [id number] cc: FRANCISCA ROJAS [address] [address] Patient Name: IVONNE CESPEDES MRN: [id number] date: 1955 Sex: F Assigned Patient Location: CT Current Patient Location: CT Accession/Order Number: [id number] Exam Date: 12/02/2023 10:10 Report Date: 12/02/2023 10:50 At the request of: FRANCISCA ROJAS Procedure: XR DEXA axial skeleton EXAMINATION: XR [...] - Moderate Fracture Risk Electronically authenticated by: CHAPARRO ECKERT Date: 12/02/2023 10:50 Dictated By: Chaparro Eckert M.D. Signed By: 12/02/23 1053 DD/ 1050 TD/TT: Tank Carpenter:TBHRadiology, Radiologist, - 12/02/[address] [place] [address] XRay Report Signed Patient: IVONNE CESPEDES MR#: [id number] : 1955 Acct:[id number] Age/Sex: 68 / F ADM Date: 12/02/23 Loc: CT Attending Dr: FRANCISCA ROJAS Ordering Physician: FRANCISCA ROJAS Date of Service: 12/02/23 Procedure(s): XR DEXA axial skeleton Accession Number(s): [id number] cc: FRANCISCA ROJSA [place] [address] Patient Name: IVONNE CESPEDES MRN: [id number] date: 1955 Sex: F Assigned Patient Location: CT Current Patient Location: CT Accession/Order Number: [id number] Exam Date: 12/02/2023 10:10 Report Date: 12/02/2023 10:50 At the request of: FRANCISCA ROJAS Procedure: XR DEXA axial skeleton EXAMINATION: XR [...] - Moderate Fracture Risk Electronically authenticated by: CHAPARRO ECKERT Date: 12/02/2023 10:50 Dictated By: Chaparro Eckert M.D. Signed By: 12/02/23 1053 DD/ 1050 TD/TT: Tank Carpenter: KAREN HealthcareRadiology Study observation (narrative)NOM HealthcareXR DEXA AXIAL SKELETONOrdered By: Radiologist Radiology on 39-45-5638FLMBMissouri Baptist Medical Center Work Phone: ambulatory Visit Summaryon 38-10-4635Wmwydjouej Visit Summary IVONNE CESPEDES :1955 Visit Date:10/11/2023 [...] if questions or concerns Patient Specific Meds acetaminophen-chlorzoxazone (Extra Strength Tylenol Aches and Strains) ascorbic [...] PM EDT With: Rosa Shearer CNP Where[facility] HospitalGastroenterology Office/Clinic Noteon 54-17-4533Xysgdgnqrstmofch Office/Clinic NoteChief Complaint Cramping HPI Staff This is a [...] diverticulitis. Patient had repeat CT 01/2022 at [facility] that showed hepatomegaly and hepatic steatosis. [...] well nourished, in no acute distress Head: Normocephalic/atraumatic Lungs: Normal respiratory effort and clear to [...] probiotics daily, and use of IBguard PRN forabdominal cramping associated with IBS. 4. Fatty liver (K76.0: Fatty (change of) liver, not elsewhere classified) CT 01/2022 at [facility] showed hepatomegaly and hepatic steatosis. Previous FibroScan 03/2022 revealed F0?F1 fibrosis, no steatosis. Previous FibroScan 02/2023 revealed mild steatosis, F0?F1 fibrosis. (more content not included)...NormalFisher [facility] St[facility] Joseph Medical CenterComment on above: Result Comment: Electronically Signed By: Rosa Shearer CNP\.nikhil\Date and Time Signed: 10/11/23 13:38 ESTPatient Educationon 28-03-7655Nwyrzql Education Mental and Behavioral Health Fatty Liver [...] ? Alcohol abuse. ? Poor nutrition. ? Breanne syndrome. ? . ? Certain drugs. ? [...] This is important to keep your condition fromgetting worse. ? Eat a healthy diet as told by your health care provider. Ask your health care provider about working with a dietitian to develop an eating plan. ? Exercise regularly. This can help you lose weight and control your cholesterol and diabetes. Talkto your health care provider about an exercise plan and which activities are best for you. ? Take raoj-qgx-ftorrjg and prescription medicines only as told by [...] if you abuse alcohol, are , are overweight,have diabetes, have hepatitis, or have high triglyceride [...] provider. Document Revised: 05/25/2021 Document Reviewed: 05/25/2021 [employer] Patient Education ? 2022 [address].[facility] QEN06no 46-21-1440Ioyckawcjps Rate : 148 BPM Atrial Rate : 150 BPM QRS Duration : 112 ms Q-T Interval : 308 ms QTC Calculation(Bazett) : 483 ms Calculated R Enid : 53 degrees Calculated T Enid : 74 degrees SUPRAVENTRICULAR TACHYCARDIA WITH SHORT RP INTERVAL, CONSIDER AVNRT ABNORMAL ECG Confirmed by CAITIE LAND MD (65) on 08/30/2023 9:42:57 AM NAME : IVONNE CESPEDES PID : [id number] : 1955 Gender : Female Race : ORD : Procedure Date : Jul 31 2023 15:22:43 Edit Date : Aug 30 2023 09:43:01 Diagnosis: SUPRAVENTRICULAR TACHYCARDIA WITH SHORT RP INTERVAL, CONSIDER AVNRT ABNORMAL ECG Confirmed by CAITIE LAND MD (65) on 08/30/2023 9:42:57 AM Test Reason : Location : 539 : [facility] [place] By : CAITIE LAND MD Edited By : CAITIE LAND MD Referred By : MAIKEL LUNSFORD Acquired by : ,CCFRadiology, Radiologist, - 08/30/2023 Ventricular Rate : 148 BPM Atrial Rate : 150 BPM QRS Duration : 112 ms Q-T Interval : 308 ms QTC Calculation(Bazett) : 483 ms Calculated R Enid : 53 degrees Calculated T Enid : 74 degrees SUPRAVENTRICULAR TACHYCARDIA WITH SHORT RP INTERVAL, CONSIDER AVNRT ABNORMAL ECG Confirmed by CAITIE LAND MD (65) on 08/30/2023 9:42:57 AM NAME : IVONNE CESPEDES PID : [id number] : 1955 Gender : Female Race : ORD : Procedure Date : Jul 31 2023 15:22:43 Edit Date : Aug 30 2023 09:43:01 Diagnosis: SUPRAVENTRICULAR TACHYCARDIA WITH SHORT RP INTERVAL, CONSIDER AVNRT ABNORMAL ECG Confirmed by CAITIE LAND MD (65) on 08/30/2023 9:42:57 AM Test Reason : Location : 539 : [facility] [place] Overread By : CAITIE LAND MD Edited By : CAITIE LNAD MD Referred By : MAIKEL LUNSFORD Acquired by : , [place] [address]RlopfsxbfzZDD88Wxyyugc By: Radiologist Radiology on 40-46-7273JXPP [employer] Work Phone: Pancreatic Elastase, Fecalon 08-07-2023 Elastase.pancreatic (Stl) [Mass/Mass]219Invalid Interpretation Code>200[facility] HospitalComment on above:Result Comment: Severe Pancreatic Insufficiency: <100 Moderate Pancreatic Insufficiency: 100 - 200 Normal: >200 Performed at: [facility] [address] [id number] MD Mohsen MoreliPerformed By: #### [id number] #### [facility] [address], [place] [address]Nclpmnaek partial thromboplastin time (aPTT) in platelet poor plasma by coagulation aOrdered By: Beverley Ngo on 25-10-1616bKTX Coag (PPP) [Time]31.1 s25.1-36.5FRegency Hospital CompanyComment on above:A hematocrit value greater than 55% may lead to inaccurate results in coagulation testing. Patientshaving hematocrit values >55% require a special collection tube for coagulation studies. Please contact the laboratory at [phone] for redraw instructions.Alanine aminotransferase [Enzymatic activity/volume] in Serum or PlasmaOrdered By: Beverley Ngo on 50-41-3516PNK [Catalytic activity/Vol]14 U/L7-52Cherrington HospitalAlbumin [Mass/volume] in Serum or Plasma by Bromocresol green (BCG) dye binding methoOrdered By: Beverley Ngo on 52-00-7314Ntiwmhb BCG dye [Mass/Vol]3.5 g/dL3.5-5.7FRegency Hospital CompanyAlkaline phosphatase [Enzymatic activity/volume] in Serum or PlasmaOrdered By: Beverley Ngo on 61-04-1010MFL [Catalytic activity/Vol]65 U/Z29-136ThzqliazeCherrington HospitalAspartate aminotransferase [Enzymatic activity/volume] in Serum or PlasmaOrdered By: Beverley Ngo on 03-67-4877YWO [Catalytic activity/Vol]16 U/I33-35KngedgnqzCherrington HospitalAutomated erythrocytes count in urine sediment (number/area)Ordered By: Beverley Ngo on 55-46-6764SCJ Auto (Urine sed) [#/Area]3-4 [HPF]0-4FRegency Hospital CompanyAutomated leukocytes count in urine sediment (number/area)Ordered By: Beverley Ngo on 89-40-8655AHQ Auto (Urine sed) [#/Area]10-19 [HPF]0-4 Cherrington HospitalAutomated urine hyaline casts count (number/volume)Ordered By: Beverley Ngo on 37-96-7709Nzxkwfa casts Auto (U) [#/Vol]06-13 [LPF]0-1FRegency Hospital CompanyAutomated urine sediment calcium oxalate crystal count by microscopy (number/high powOrdered By: Beverley Ngo on 72-91-2450Zahbsgg oxalate crystals LM.HPF (Urine sed) [#/Area]2+ [HPF]C[facility]rington HospitalBasophils Auto (Bld) [#/Vol]Ordered By: Beverley Ngo on 31-35-9122Wfdgginto (Bld) [#/Vol]0.1 10*3/uL0.0-0.2FRegency Hospital CompanyBasophils/100 WBC Auto (Bld)Ordered By: Beverley Ngo on 12-04-4505Fczxvbkfe/100 WBC (Bld)1.0 %.[facility] Bilirubin Test strip Ql (U)Ordered By: Beverley Ngo on 82-36-2068Bcfcsfksl Ql (U)NegativeNegativeCherrington HospitalBilirubin.total [Mass/volume] in Serum or PlasmaOrdered By: Beverley Ngo on 07-31-2023 Bilirubin [Mass/Vol]0.3 mg/dL0.3-1.0Cherrington HospitalCOVID CepheidOrdered By: Beverley Ngo on 03-08-7590CRUX-CoV-2 (COVID-19) Ab IA Ql NegativeNegativeCherrington HospitalComment on above:This is a duplicate Cepheid Xpert Xpress CoV-2/Flu/RSV Plus RNA by RT-PCR result to be used for statistical tracking purpose only.SARS-CoV-2 (COVID-19) RNA SARANYA+probe Ql (Unsp spec)[facility] HospitalCalcium [Mass/volume] in Serum or PlasmaOrdered By: Beverley Ngo on 11-15-1688Xuvvdio [Mass/Vol]9.0 mg/dL 8.6-10.3FRegency Hospital CompanyCarbon dioxide, total [Moles/volume] in Serum or PlasmaOrdered By: Beverley Ngo on 98-79-7802ZB3 [Moles/Vol]25.8 mmol/L21.0-31.0C[facility]rington HospitalChloride [Moles/volume] in Serum or PlasmaOrdered By: Beverley Ngo on 61-30-5608Pjjsdvcl [Moles/Vol]110 mmol/W82-969UzjnrmdsvCherrington HospitalCoarse granular casts count in urine sediment by microscopy low power field (number/aOrdered By: Beverley Ngo on 76-04-1152Dclsev Granular Casts LM.LPF (Urine sed) [#/Area]1-2 [LPF] 0-1FRegency Hospital CompanyColor Auto (U)Ordered By: Beverley Ngo on 88-77-3004Hjske (U)Dark yellowYellowCherrington HospitalCreatinine [Mass/volume] in Serum or PlasmaOrdered By: Beverley Ngo on 07-31-2023 Creatinine [Mass/Vol]0.67 mg/dL0.60-1.20C[facility]rington HospitalECG01on 26-08-7724Rmglbdxzi Study observation (narrative)NOMS HealthcareEosinophils Auto (Bld) [#/Vol]Ordered By: Beverley Ngo on 48-43-3217Jlmfoznrbls (Bld) [#/Vol]0.1 10*3/uL0.0-0.45C[facility]rington HospitalEosinophils/100 WBC Auto (Bld)Ordered By: Beverley Ngo on 04-67-4526Wcqpumhqbta/100 WBC (Bld)2.0 %.Cherrington HospitalErythrocyte distribution width Auto (RBC) [Ratio]Ordered By: Beverley Ngo on 11-64-0684Tfriywvsdsl distribution width (RBC) [Ratio]15.2 %11.9-15.3FRegency Hospital CompanyGlobulin Calc (S) [Mass/Vol]Ordered By: Beverley Ngo on 36-58-6578Fhbqzeqz (S) [Mass/Vol]2.8 g/dLCherrington HospitalGlucose [Mass/volume] in Serum or Plasma Ordered By: Beverley Ngo on 92-58-1769Mumzopc [Mass/Vol]108 mg/fW68-443 Cherrington HospitalComment on above:ADA recommended reference rangeRandom Glucose Reference Range is dependent on time and content of last meal. Glucose of more than 200 mg/dL in a nonstressed, ambulatory subject supports the diagnosisof Diabetes Mellitus.Hematocrit Auto (Bld) [Volume fraction]Ordered By: Beverley Ngo on 37-14-0517Cmkdfhqcup (Bld) [Volume fraction]38.7 %34.0-46.4FRegency Hospital CompanyHemoglobin [Mass/volume] in BloodOrdered By: Beverley Ngo on 42-13-0240Bhcjrurokm (Bld) [Mass/Vol]13.0 g/dL11.8-15.4FRegency Hospital CompanyINR in Platelet poor plasma by Coagulation assayOrdered By: Beverley Ngo on 67-59-7094LQB Coag (PPP) [Relative time]0.9 {INR}[facility]rington HospitalComment on above:INR Therapeutic Range A) Pre- and Peroperative OAT started two weeks before surgery. NOT HIP SURGERY: 1.5 - 2.5 HIP SURGERY: 2 - 3B) Primary and secondary prevention of venous THROMBOSIS: 2 - 3C) Active venous thrombosis, pulmonary embolismand prevention of recurrent venous thrombosis: 2 - 3D) Preve ntion of arterial thromboembolismincluding patients with mechanical heart valves: 3 - 4.5Ketones Auto test strip (U) [Mass/Vol]Ordered By: Beverley Ngo on 72-44-5108Jazfymp (U) [Mass/Vol]TraceNegativeCherrington HospitalLeukocytes [#/volume] corrected for nucleated erythrocytes in Blood by Automated counOrdered By: Beverley Ngo on 28-32-4739ZQD corrected for nucl RBC Auto (Bld) [#/Vol]5.7 10*3/uL3.8-11.6FRegency Hospital Company Lymphocytes Auto (Bld) [#/Vol]Ordered By: Beverley Ngo on 07-31-2023 Lymphocytes (Bld) [#/Vol]1.5 10*3/uL1.00-4.8[facility] Lymphocytes/100 WBC Auto (Bld)Ordered By: Beverley Ngo on 07-31-2023 Lymphocytes/100 WBC (Bld)25.8 %.Cherrington HospitalMCH Auto (RBC) [Entitic mass]Ordered By: Beverley Ngo on 76-94-2599RSP (RBC) [Entitic mass] 29.2 pg24.7-34.3FRegency Hospital CompanyMCHC Auto (RBC) [Mass/Vol] Ordered By: Beverley Ngo on 69-39-6923XYDF (RBC) [Mass/Vol]33.6 g/dL32.0-35.0 [facility] HospitalMCV Auto (RBC) [Entitic vol]Ordered By: Beverley Ngo on 02-52-7876IPV (RBC) [Entitic vol]86.8 oG35-283VkrmwzaagCherrington HospitalMagnesium [Mass/volume] in Serum or PlasmaOrdered By: Beverley Ngo on 44-00-2712Krngwgxfu [Mass/Vol]2.0 mg/dL1.9-2.7FRegency Hospital CompanyMonocyte distribution width [Entitic volume] in Blood by AutomatedOrdered By: Beverley Ngo on 68-79-3193Paeebxal distribution width Auto (Bld) [Entitic vol]19.41 %0.00-20.00[facility] Monocytes Auto (Bld) [#/Vol]Ordered By: Beverley Ngo on 89-66-4568Xxoteqmmw (Bld) [#/Vol]0.4 10*3/uL0.0-0.8C[facility]rington HospitalMonocytes/100 WBC Auto (Bld)Ordered By: Beverley Ngo on 68-45-6763Lcnaojplf/100 WBC (Bld) 6.6 %.C[facility]rington HospitalNeutrophils Auto (Bld) [#/Vol]Ordered By: Beverley Ngo on 69-25-7251Zyoshcqekvh (Bld) [#/Vol]3.7 10*3/uL1.8-7.7 Cherrington HospitalNeutrophils/100 WBC Auto (Bld)Ordered By: Beverley Ngo on 43-97-8867Qxdnlddzzfm/100 WBC (Bld)64.6 %.Cherrington HospitalNitrite Test strip Ql (U)Ordered By: Beverley Ngo on 07-31-2023 Nitrite Ql (U)NegativeNegMary Rutan HospitalNo Panel InformationOrdered By: Beverley Ngo on 40-11-6494Oakmenxqo GFR (CKD-EPI)> 60.0 mL/MinCherrington HospitalPharmacy Creatinine Clearance (Chem 47.00Cherrington HospitalNucleated erythrocytes [Presence] in Blood by Automated countOrdered By: Beverley Ngo on 73-15-1860Saphscjvt RBC Auto Ql (Bld)0.0 /100{WBC}0-0.5FRegency Hospital CompanyPlatelet mean volume Auto (Bld) [Entitic vol]Ordered By: Beverley Ngo on 37-49-4800Frkhdgnn mean volume (Bld) [Entitic vol]7.5 fL6.3-10.7FRegency Hospital Company Platelets Auto (Bld) [#/Vol]Ordered By: Beverley Ngo on 81-73-6521Agzzhqrrl (Bld) [#/Vol]191 10*3/jV897-137PrcxpaioeCherrington HospitalPotassium [Moles/volume] in Serum or PlasmaOrdered By: Beverley Ngo on 07-31-2023 Potassium [Moles/Vol]3.7 mmol/L3.5-5.1FRegency Hospital CompanyProtein Auto test strip (U) [Mass/Vol]Ordered By: Beverley Ngo on 51-43-2078Dcjdrgj (U) [Mass/Vol]Trace mg/dLNegMary Rutan HospitalProtein [Mass/volume] in Serum or PlasmaOrdered By: Beverley Ngo on 01-42-7055Hhscbcc [Mass/Vol]6.3 g/dL6.4-8.9C[facility]rington HospitalProthrombin time (PT) Ordered By: Beverley Ngo on 82-92-4139XW Coag (PPP) [Time]11.3 s9.0-12.9 Cherrington HospitalComment on above:A hematocrit value greater than 55% may lead to inaccurate results in coagulation testing. Patientshaving hematocrit values >55% require a special collection tube for coagulation studies. Please contact the laboratory at [phone] for redraw instructions. RBC Auto (Bld) [#/Vol]Ordered By: Beverley Ngo on 73-70-5384EMI (Bld) [#/Vol] 4.46 10*6/uL3.60-5.00Newark Hospitalerum or plasma albumin/globulin mass ratioOrdered By: Beverley Ngo on 07-31-2023 Albumin/Globulin [Mass ratio]1.3 {ratio}Newark Hospitalerum or plasma anion gap determinationOrdered By: Beverley Ngo on 75-09-7118Mfikz gap [Moles/Vol]7.9 mmol/L6.0-15.0Newark Hospitalodium [Moles/volume] in Serum or PlasmaOrdered By: Beverley Ngo on 05-07-0154Jwrgpn [Moles/Vol]140 mmol/N179-427BsgkxrmcqNewark Hospitalpecific gravity Auto test strip (U) [Rel density]Ordered By: Beverley Ngo on 07-31-2023 Specific gravity (U) [Rel density]1.0291.001-1.030Newark Hospitalquamous epithelial cells detection in urine sediment by light microscopy Ordered By: Beverley Ngo on 15-28-9905Zargcjmcjg cells.squamous LM Ql (Urine sed)5-9 [HPF]0-2FRegency Hospital CompanyThyrotropin [Units/volume] in Serum or PlasmaOrdered By: Beverley Ngo on 71-50-3442PCJ Qn6.53 m[IU]/L 0.45-5.33Cherrington HospitalThyroxine (T4) [Mass/volume] in Serum or PlasmaOrdered By: Beverley Ngo 19-88-8319R2 [Mass/Vol]9.15 ug/dL 5.39-11.82C[facility]rington HospitalTroponin I.cardiac [Mass/volume] in Serum or Plasma by Detection limit <= 0.01 ng/Ordered By: Beverley Ngo on 91-10-7431Fxjpdemy I.cardiac DL <= 0.01 ng/mL [Mass/Vol]7.0 pg/mL0.0-15.0 [facility] HospitalUrea nitrogen [Mass/volume] in Serum or Plasma Ordered By: Beverley Ngo on 61-91-5722Nrfn nitrogen [Mass/Vol]14 mg/dL7-25 Cher[facility] HospitalUrine bacteria detection by automated method Ordered By: Beverley Ngo on 36-78-8268Cjvdwuqp Auto Ql (U)None seenNone Seen [facility]rington HospitalUrine clarity by refractometry automatedOrdered By: Beverley Ngo on 95-65-9992Jbdblsn Refractometry automated (U)CloudyClear Cherrington HospitalUrine glucose measurement by automated test strip (mass/volume)Ordered By: Beverley Ngo on 50-99-3109Rzysydv Auto test strip (U) [Mass/Vol]Normal mg/dLNoMercy Health Defiance HospitalUrine hemoglobin detection by automated test stripOrdered By: Beverley Ngo on 70-47-6920Gziciastrc Auto test strip Ql (U)NegativeNegativeCherrington HospitalUrine leukocyte esterase detection by automated test stripOrdered By: Beverley Ngo on 94-74-2982Bqhnydawx esterase Auto test strip Ql (U)2+ NegativeCherrington HospitalUrine sediment crystal identification by light microscopyOrdered By: Beverley Ngo on 64-02-9895Pbhxczuu LM Nom (Urine sed)None seen [HPF]Cherrington HospitalUrine sediment leukocyte cast count by microscopy (number/low power field)Ordered By: Beverley Ngo on 22-20-3593DKL casts LM.LPF (Urine sed) [#/Area]1-2 [LPF]None Seen Cherrington HospitalUrine sediment renal epithelial cell count by microscopy (number/high power field)Ordered By: Beverley Ngo on 07-31-2023 Epithelial cells.renal LM.HPF (Urine sed) [#/Area]None seen [HPF]0-1FRegency Hospital CompanyUrobilinogen Auto test strip (U) [Mass/Vol]Ordered By: Beverley Ngo on 12-87-8506Aaeojssighfo (U) [Mass/Vol]Normal mg/dLNormal Cherrington HospitalWBC Auto (Bld) [#/Vol]Ordered By: Beverley Ngo on 02-94-0913IFZ (Bld) [#/Vol]5.7 10*3/uL3.8-11.6FRegency Hospital CompanypH Auto test strip (U)Ordered By: Beverley Ngo on 84-76-7909eA (U)5.5 [pH]5.0-9.0C[facility] HospitalConsultation Noteon 16-47-4339Ojxeqnkoqkun [id number]#1.00TIFF [facility] HospitalGastroenterology Office/Clinic Noteon 15-31-5970Ifmlrjbjymqxweyb Office/Clinic NoteChief Complaint Abdominal pain. HPI Staff This is a 68 year old female who presents today for a follow-up from 06/26/23. History of Present Illness Patient is a 68-year-old female who presents for follow-up. Patient was previously evaluated 06/26/2023 and has history of pancreatic insufficiency?previous fecal pancreatic elastase testing 05/2022 was low at 88. Patient also with history of fatty liver disease and IBS with diarrhea. Patient was previously evaluated by Dr. Hameed 09/2022 for RUQ and epigastric pain and advised to follow-up with TAR ROOFER. Previous labs 10/2022 revealed normal H&H, normal BUN, normal creatinine, normal liver enzymes and normal vitamin A and E. Recent B12 01/2023 had improved at 144- was previously referred to hematology for possible IM B12 injections. Patient had previously reported she was not ta Incujector Librax or Questran. Previous ultrasound of pelvis [...] diverticulitis. Patient had repeat CT 01/2022 at [facility] that showed hepatomegaly and hepatic steatosis. Patient with family history colon cancer?patient's sister. Patient had previous FibroScan 03/2022 that revealed F0?F1 fibrosis, no steatosis. Patient was previously advised regarding use of Creon. Previous FibroScan 02/2023 revealed mild steatosis, F0?F1 fibrosis. Patient had reported during most recent visit with me that she was having abdominal cramping in theLUQ and lower abdomen that was occurring daily. She reported history of back surgeries and explained with back pain in her abdomen when also be painful. She reported having loose/watery stools immediately after eating. She also reported a cough off and on over the last year and epigastric region. She reported she was taking sawk-wow-lyfyoue pancreatic enzymes and did not wish to take Creon anymore. Patient also reported she was not taking Questran however was interested in trying Questran again. Patient was ordered repeat fecal pancreatic elastase and was educated that I was unable to recommend xtmq-cea-ckbwywb pancreatic enzymes as they are not approved by FDA. Patient was educated to startQuestran daily. Had discussed MRCP or repeat imaging to further evaluate patient's pain however she had refused. Patient saw dietitian at outside facility 07/03/2023 and note indicated for patient to discuss Creon with office here in GI regarding her pancreatic insufficiency. During today's visit, patient reports she is doing better. She explains she is taking 1/2 packet ofquestran BID. Is taking Benefiber 1 teaspoon daily. She is having formed BMs currently. Is having 1formed BM daily. Fecal urgency has improved. Abdominal cramping has improved. She is not interestedin Creon at this time. Denies black/bloody stools, [...] well nourished, in no acute distress Head: Normocephalic/atraumatic Lungs: Normal respiratory effort and clear to [...] specified diseases of pancreas) History of pancreatic insufficiency?previous fecal pancreatic elastase testing 05/2022 was low at 88. Previous labs 10/2022 revealed normal H&H, normal BUN, normal creatinine, normal liver enzymes and normal vitamin A and E. Recent B12 01/2023 had improved at 144. During previous evaluation, patient explained Creon was too expensive and did not want assistance re (more content not included)...[facility]erry HospitalComment on above:Result Comment: Electronically Signed By: Rosa Shearer CNP\.br\Date and Time Signed: 07/26/23 14:25 ESTPatient Educationon 87-33-7522Yiqdiwy EducationGastroenterology High-Fiber Eating Plan Fiber, also called dietary [...] Be aware of foods with added fiber. Thesefoods often have high sugar and sodium amounts per serving. Cooking ? Use whole-grain flour for baking and cooking. ? Cook with brown rice instead of white rice. Meal planning ? Start the day with a breakfast that is high in fiber, such as a cereal that contains 5 g of fiberor more per serving. ? Eat breads and [...] Bulgur wheat. Millet. Quinoa. Bran muffins. Popcorn. [place] wafer crackers. Meats and other proteins [place] beans, kidney beans, and foss beans. Soybeans. [...] Cream cheese. Sour cream. Fats and oils [place]. Beverages Soft drinks. Other foods Cakes and [...] care provider. Document Revised: (more content not included)...NormalNovant Health Pender Medical Centerer [facility] CenterGastroenterology Office/Clinic Noteon 46-67-2469Khyhmelssxzltfzm Office/Clinic NoteChief Complaint Abdominal pain, cramping and loose stool. HPI Staff This is a 68 year old female who presents today for a follow-up from 03/26/23 office visit. History of Present Illness Patient is a 68-year-old female who presents for follow-up. Patient was previously evaluated 03/26/2023 and has history of pancreatic insufficiency?previous fecal pancreatic elastase testing 05/2022 was low at 88. Patient also with history of fatty liver disease and IBS with diarrhea. Patient was previously evaluated by Dr. Hameed 09/2022 for RUQ and epigastric pain and advised to follow-up with TAR ROOFER. Previous labs 10/2022 revealed normal H&H, normal [...] diverticulitis. Patient had repeat CT 01/2022 at [facility] that showed hepatomegaly and hepatic steatosis. [...] in trying again. Denies use of fiber supplementation.Denies black/bloody stools, nausea/vomiting, fevers/chills, and denies having [...] well nourished, in no acute distress Head: Normocephalic/atraumatic Lungs: Normal respiratory effort and clear to auscultation Cardio: Regular rate and rhythm, normal S1 and S2, no murmur, no rub Abdomen: Soft, non-distended, non-tender. Normoactive bowel sounds present in all 4 abdominal quadrants, bilaterally. Mental Status: Alert and oriented x3. Normal mood and affect Assessment/Plan 1. Pancreatic insufficiency (K86.89: Other specified diseases of pancreas) History of pancreatic insufficiency?previous fecal pancreatic elastase testing 05/2022 was low [...] normal terminal ileum, d (more content not included)...NormalNovant Health Pender Medical Centerer [facility] Medical CenterComment on above:Result Comment: Electronically Signed By: Rosa Shearer CNP\Date and Time Signed: 06/26/23 13:13 EDTPatient Educationon 27-90-5387Ryokhax EducationOncology Colon Polyps Colon polyps are tissue growths inside the colon, which is part of the large intestine. They are one of the types of polyps that can grow in the body. A polyp may be a round bump or a mushroom-shapedgrowth. You could have one polyp or more [...] or other processed meat that you eat, suchas hot dogs, sausages, kaiser, or meat loaves. [...] liquor (44 mL). General instructions ? Take ikgk-vox-wbrmuzn and prescription medicines only as told by [...] Document Revised: 11/30/2020 D (more content not included)...NormalSelect Medical Trihealth Rehabilitation HospitalINTRINSIC FACTOR BLOCKING ABon 65-90-9117Xgjpgiazy factor blocking Ab Ql (S)NegativeNegativeUniversity Hospitals Cleveland Medical CenterFERRITIN BLDon 99-80-2142Ywcalmfk [Mass/Vol]25.6 ng/mL14.7 - 205.1 ng/mLCleveland ClinicFOLATE SERUMon 03-14-2023 Folate [Mass/Vol]15.2 ng/mL>4.7 ng/mLCleveland Essentia HealthIron and Iron binding capacity panelon 30-51-3033Ukda [Mass/Vol]48 ug/dL41 - 186 ug/dLUniversity Hospitals Cleveland Medical Center Iron binding capacity [Mass/Vol]374 ug/dL232 - 386 ug/dLUniversity Hospitals Cleveland Medical Center Iron/TIBC [Molar ratio]12.8 %Low15.0 - 57.0 %[facility] Medical CenterVITAMIN B12 BLOODon 13-26-2593Rspqfboaw (Vitamin B12) [Mass/Vol]209 pg/wBIhb116 - 1,245 pg/mL [facility] Medical CenterCB W Auto Differential panel (Bld)on 03-96-5795Qofswwevt (Bld) [#/Vol]0.06 10*3/uL<0.11 k/uLUniversity Hospitals Cleveland Medical CenterBasophils/100 WBC (Bld)1.0 % [facility] Medical CenterDifferential cell count method Nom (Bld)AutoCleveland Clinic Eosinophils (Bld) [#/Vol]0.21 10*3/uL<0.46 k/uLUniversity Hospitals Cleveland Medical CenterEosinophils/100 WBC (Bld)3.5 %[facility] Medical CenterErythrocyte distribution width (RBC) [Ratio]14.6 % 11.5 - 15.0 %[facility] Medical CenterHematocrit (Bld) [Volume fraction]42.7 %36.0 - 46.0 %[facility] Medical CenterHemoglobin (Bld) [Mass/Vol]13.7 g/dL11.5 - 15.5 g/dLUniversity Hospitals Cleveland Medical CenterImmature granulocytes (Bld) [#/Vol]<0.10 k/uLUniversity Hospitals Cleveland Medical CenterImmature granulocytes/100 WBC (Bld)0.2 %[facility] Medical CenterLymphocytes (Bld) [#/Vol]1.91 10*3/uL1.00 - 4.00 k/uLUniversity Hospitals Cleveland Medical CenterLymphocytes/100 WBC (Bld)31.7 %[facility] SystemH (RBC) [Entitic mass]28.7 pg26.0 - 34.0 pgClevelShriners Children's Twin CitiesHC (RBC) [Mass/Vol]32.1 g/dL30.5 - 36.0 g/dLHolzer Health SystemV (RBC) [Entitic vol]89.5 fL80.0 - 100.0 fLCleveland ClinicMonocytes (Bld) [#/Vol]0.60 10*3/uL<0.87 k/uL [facility] ClinicMonocytes/100 WBC (Bld)10.0 %[facility] Medical CenterNeutrophils (Bld) [#/Vol]3.24 10*3/uL1.45 - 7.50 k/uLUniversity Hospitals Cleveland Medical CenterNeutrophils/100 WBC (Bld)53.6 %[facility] Medical CenterNucleated RBC (Bld) [#/Vol]<0.01 k/uLUniversity Hospitals Cleveland Medical CenterNucleated RBC/100 WBC (Bld) [Ratio]0.0 /100 WBCUniversity Hospitals Cleveland Medical CenterPlatelet mean volume (Bld) [Entitic vol]9.7 fL9.0 - 12.7 fLCleveland ClinicPlatelets (Bld) [#/Vol]199 10*3/uL150 - 400 k/uLLa Villa ClinicRBC (Bld) [#/Vol]4.77 10*6/uL3.90 - 5.20 m/uLUniversity Hospitals Cleveland Medical CenterWBC (Bld) [#/Vol]6.03 10*3/uL3.70 - 11.00 k/uLUniversity Hospitals Cleveland Medical CenterComprehensive metabolic 2000 panelon 85-64-3777Blokmpj [Mass/Vol]4.3 g/dL 3.9 - 4.9 g/dLLa Villa ClinicALP [Catalytic activity/Vol]91 U/L34 - 123 U/L [facility] ClinicALT [Catalytic activity/Vol]107 U/LHigh7 - 38 U/LCleveland ClinicAnion gap [Moles/Vol]7 mmol/LLow9 - 18 mmol/LCleveland ClinicAST [Catalytic activity/Vol]80 U/LHigh13 - 35 U/LCleveland Essentia HealthBilirubin [Mass/Vol]0.3 mg/dL0.2 - 1.3 mg/dLUniversity Hospitals Cleveland Medical CenterCalcium [Mass/Vol]10.3 mg/dL High8.5 - 10.2 mg/dLUniversity Hospitals Cleveland Medical CenterChloride [Moles/Vol]104 mmol/L97 - 105 mmol/LCleveland ClinicCO2 [Moles/Vol]30 mmol/L22 - 30 mmol/LCleveland Clinic Creatinine [Mass/Vol]0.62 mg/dL0.58 - 0.96 mg/dLUniversity Hospitals Cleveland Medical CenterEstimated Glomerular Filtration Rate97 mL/min/1.73m>=60 mL/min/1.73mCleveland Essentia Health Glucose [Mass/Vol]102 mg/lRGmwt01 - 99 mg/dLUniversity Hospitals Cleveland Medical CenterPotassium [Moles/Vol]4.5 mmol/L3.7 - 5.1 mmol/LCleveland ClinicProtein [Mass/Vol]7.4 g/dL 6.3 - 8.0 g/dLPremier Health Miami Valley Hospital Northodium [Moles/Vol]141 mmol/L136 - 144 mmol/L [facility] Medical CenterUrea nitrogen [Mass/Vol]10 mg/dL7 - 21 mg/dLUniversity Hospitals Cleveland Medical Center CHEMISTRYOrdered By: SYSTEM SYSTEM on 72-72-1271Uuozjyrax (Vitamin B12) [Mass/Vol]144 pg/tXQzyqrq86 - 1500 pg/mLCLEVELAND AREA HOSPITAL – [place] RemisolCT LUNG CANCER SCREENINGon 81-90-0594DL LUNG CANCER SCREENINGEXAMINATION: CT LUNG CANCER SCREENING HISTORY: Nicotine dependence [...] Electronically authenticated by: CHAPARRO ECKERT Date: 2022-11-30 14:[address] [place], [place] [address]CHEMISTRYOrdered By: SYSTEM SYSTEM on 01-11-6135Kxufyld [Mass/Vol]3.9 g/dLNormal3.3 - 5.0 gm/dLFTMC RemisolAlbumin/Globulin [Mass ratio] 1.1 {ratio}Normal1.1 - 2.2FTMC RemisolALP [Catalytic activity/Vol]49 [iU]/d Zeisjx82 - 98 Int._Unit/LFTMC RemisolALT No additional P-5'-P [Catalytic activity/Vol]12 [iU]/dNormal6 - 46 Int._Unit/LFTMC RemisolAnion gap [Moles/Vol] 10 mmol/LNormal6 - 16 mEq/LFTMC RemisolAST [Catalytic activity/Vol]15 [iU]/d Normal5 - 43 Int._Unit/LFTMC RemisolBilirubin [Mass/Vol]0.4 mg/dLNormal0.0 - 1.1 mg/dLFTMC RemisolCalcium [Mass/Vol]9.5 mg/dLNormal8.9 - 11.1 mg/dLFTMC Remisol Chloride [Moles/Vol]102 mmol/YVcpvzh708 - 111 mmol/LFTMC RemisolCO2 [Moles/Vol] 29 mmol/RDymxrx39 - 31 mmol/LFTMC RemisolCobalamin (Vitamin B12) [Mass/Vol]pg/mL Vttupt25 - 1500 pg/mLFTMC RemisolCreatinine [Mass/Vol]0.7 mg/dLNormal0.5 - 1.3 mg/dLFTMC RemisolGFR/1.73 sq M.predicted among blacks MDRD (S/P/Bld) [Vol rate/Area]mL/min/1.73 l1Crznul>=59mL/min/1.73 m2FTMC Chem SGFR/1.73 sq M.predicted among non-blacks MDRD (S/P/Bld) [Vol rate/Area]mL/min/1.73 o8Jzvhxd >=59mL/min/1.73 m2FTMC Chem SGlobulin (S) [Mass/Vol]3.6 g/dLNormal1.4 - 4.0 gm/dLFTMC RemisolGlucose [Mass/Vol]106 mg/kAQawrvu09 - 199 mg/dLFTMC Remisol Potassium [Moles/Vol]4.1 mmol/LNormal3.5 - 5.3 mmol/LFTMC RemisolProtein [Mass/Vol]7.5 g/dLNormal6.0 - 7.8 gm/dLFTMC RemisolSodium [Moles/Vol]137 mmol/L Sxwxaj404 - 145 mmol/LFTMC RemisolUrea nitrogen [Mass/Vol]13 mg/dLNormal5 - 21 mg/dLFTMC RemisolUrea nitrogen/Creatinine [Mass ratio]19 mg/zoHaidhb70 - 20FTMC RemisolHEMATOLOGYOrdered By: SYSTEM SYSTEM on 96-30-8324Dwmuuevnw/100 WBC (Bld) 0.8 %Normal0.0 - 2.0 %[facility] HemeAutoSSBasophils/Leukocytes Auto (Bld) [Pure # fraction]0.0 E9/LNormal0.0 - 0.2 E9/LFTMC HemeAutoSSEosinophils/100 WBC (Bld)3.2 %Normal0.0 - 8.0 %[facility] HemeAutoSSEosinophils/Leukocytes Auto (Bld) [Pure # fraction]0.2 E9/LNormal0.0 - 0.5 E9/LFTMC HemeAutoSSLymphocytes/100 WBC (Bld) 23.1 %Hhsgwz80.0 - 50.0 %[facility] HemeAutoSSLymphocytes/Leukocytes Auto (Bld) [Pure # fraction]1.3 E9/LNormal1.0 - 4.0 E9/LFTMC HemeAutoSSMonocytes/100 WBC (Bld)9.3 %Normal4.0 - 14.0 %[facility] HemeAutoSSMonocytes/Leukocytes Auto (Bld) [Pure # fraction]0.5 E9/LNormal0.2 - 1.0 E9/LFTMC HemeAutoSSNeutrophils/100 WBC (Bld) 63.6 %Fqxceb42.0 - 75.0 %[facility] HemeAutoSSNeutrophils/Leukocytes Auto (Bld) [Pure # fraction]3.6 E9/LNormal2.0 - 7.5 E9/LFTMC HemeAutoSSHEMATOLOGYOrdered By: Caitie Mederos on 28-69-9959Bfzasvqxwwy distribution width (RBC) [Ratio]14.5 %High10.9 - 14.2 %[facility] HemeAutoSSHematocrit (Bld) [Volume fraction]41.6 %Normal 34.0 - 46.0 %[facility] HemeAutoSSHemoglobin (Bld) [Mass/Vol]13.5 g/yHYqqtcs41.0 - 16.0 gm/dLFTMC HemeAutoSSMCH (RBC) [Entitic mass]28.5 qnJaoidr35.0 - 34.0 pgFTMC HemeAutoSSMCHC (RBC) [Mass/Vol]32.5 g/hSOfjuir31.4 - 36.0 gm/dLFTMC HemeAutoSS MCV (RBC) [Entitic vol]87.8 qRMtofou76.0 - 100.0 fLFTMC HemeAutoSSPlatelet mean volume (Bld) [Entitic vol]7.6 fLNormal6.4 - 10.8 fLFTMC HemeAutoSSPlatelets (Bld) [#/Vol]218.0 E9/PSvtjps072.0 - 500.0 E9/LFTMC HemeAutoSSRBC (Bld) [#/Vol] 4.7 E12/LNormal4.3 - 5.9 E12/LFTMC HemeAutoSSWBC corrected for nucl RBC Auto (Bld) [#/Vol]5.7 E9/LNormal4.0 - 11.0 E9/LFTMC HemeAutoSSTHYROID ANTIBODIESon 15-64-0059Bhvbxjwabsksb Hmvshtdx835.8 IU/mLCritically high0.0-0.9The [facility] HospitalComment on above:Result Comment: Thyroglobulin Antibody measured by CinemaKi MethodologyPerformed By: #### THYRABS #### [facility] [address] [place] [address] Dr. Marcelo BlackwellThyroid Peroxidase (TPO) Ab353 IU/mLCritically high0-34The [facility] HospitalComment on above:Performed By: #### THYRABS #### [facility] [address] [place] [address] Dr. Marcelo Swartz THYROIDon 08-92-5257QB THYROIDEXAMINATION: US THYROID HISTORY: Hypothyroidism COMPARISON: No relevant [...] gland, consider thyroiditis Electronically authenticated by: ALEXANDRO MELTON Date: 2022-07-16 07:17NormDunlap Memorial Hospitale [facility] HospitalFREE T3on 95-52-7870BZGZ T32.57 pg/mlLNormal2.18-3.98The [facility] HospitalComment on above:Performed By: #### TSH, FT3 #### [facility] [address] [place] [address] Dr. Marcelo Drummond T4on 15-19-5235Obnz T4 [Mass/Vol]1.26 ng/dLNormal0.76-1.46 [facility] HospitalComment on above:Performed By: #### FT4 #### [facility] [id number] Marcelo Donnelly 86-77-0161MLO8.371 uIU/mLNormal0.358-3.740Clermont County HospitalComment on above:Performed By: #### TSH, FT3 #### [facility] [id number] Marcelo BlackwellCHEMISTRYOrdered By: SYSTEM SYSTEM on 68-54-1240Zxmhvki [Mass/Vol]3.8 g/dLNormal3.3 - 5.0 gm/dLFTMC RemisolAlbumin/Globulin [Mass ratio] 1.1 {ratio}Normal1.1 - 2.2FT[facility] RemisolALP [Catalytic activity/Vol]94 [iU]/d Edgsxu59 - 98 Int._Unit/LFTMC RemisolALT No additional P-5'-P [Catalytic activity/Vol]27 [iU]/dNormal6 - 46 Int._Unit/LFTMC RemisolAnion gap [Moles/Vol] 12 mmol/LNormal6 - 16 mEq/LFTMC RemisolAST [Catalytic activity/Vol]37 [iU]/d Normal5 - 43 Int._Unit/LFTMC RemisolBilirubin [Mass/Vol]0.5 mg/dLNormal0.0 - 1.1 mg/dLFTMC RemisolCalcium [Mass/Vol]9.5 mg/dLNormal8.9 - 11.1 mg/dLFTMC Remisol Chloride [Moles/Vol]102 mmol/FFjovlk573 - 111 mmol/LFTMC RemisolCO2 [Moles/Vol] 29 mmol/HIgarbr05 - 31 mmol/LFTMC RemisolCreatinine [Mass/Vol]0.8 mg/dLNormal0.5 - 1.3 mg/dLFTMC RemisolGFR/1.73 sq M.predicted among blacks MDRD (S/P/Bld) [Vol rate/Area]mL/min/1.73 m9Bfzvfn>=59mL/min/1.73 m2FT[facility] Chem SGFR/1.73 sq M.predicted among non-blacks MDRD (S/P/Bld) [Vol rate/Area]mL/min/1.73 i5Hgfnvw >=59mL/min/1.73 m2FT[facility] Chem SGlobulin (S) [Mass/Vol]3.5 g/dLNormal1.4 - 4.0 gm/dLFTMC RemisolGlucose [Mass/Vol]114 mg/vPZduuot32 - 199 mg/dLFTMC Remisol Potassium [Moles/Vol]3.9 mmol/LNormal3.5 - 5.3 mmol/LFTMC RemisolProtein [Mass/Vol]7.3 g/dLNormal6.0 - 7.8 gm/dLFTMC RemisolSodium [Moles/Vol]139 mmol/L Xqimil751 - 145 mmol/LFTMC RemisolUrea nitrogen [Mass/Vol]15 mg/dLNormal5 - 21 mg/dLFTMC RemisolUrea nitrogen/Creatinine [Mass ratio]19 mg/geHhwztv91 - 20FT[facility] RemisolHEMATOLOGYOrdered By: SYSTEM SYSTEM on 55-46-8481Kkkikpoir/100 WBC (Bld) 0.8 %Normal0.0 - 2.0 %[facility] HemeAutoSSBasophils/Leukocytes Auto (Bld) [Pure # fraction]0.1 E9/LNormal0.0 - 0.2 E9/LFTMC HemeAutoSSEosinophils/100 WBC (Bld)4.1 %Normal0.0 - 8.0 %[facility] HemeAutoSSEosinophils/Leukocytes Auto (Bld) [Pure # fraction]0.3 E9/LNormal0.0 - 0.5 E9/LFTMC HemeAutoSSLymphocytes/100 WBC (Bld) 26.4 %Kkpgjo97.0 - 50.0 %[facility] HemeAutoSSLymphocytes/Leukocytes Auto (Bld) [Pure # fraction]1.8 E9/LNormal1.0 - 4.0 E9/LFTMC HemeAutoSSMonocytes/100 WBC (Bld)8.1 %Normal4.0 - 14.0 %[facility] HemeAutoSSMonocytes/Leukocytes Auto (Bld) [Pure # fraction]0.5 E9/LNormal0.2 - 1.0 E9/LFTMC HemeAutoSSNeutrophils/100 WBC (Bld) 60.6 %Mayyyb40.0 - 75.0 %[facility] HemeAutoSSNeutrophils/Leukocytes Auto (Bld) [Pure # fraction]4.1 E9/LNormal2.0 - 7.5 E9/LFTMC HemeAutoSSHEMATOLOGYOrdered By: Rylie Carey on 84-41-2703Ygahpjiywky distribution width (RBC) [Ratio]14.7 % High10.9 - 14.2 %[facility] HemeAutoSSHematocrit (Bld) [Volume fraction]40.9 %Normal 34.0 - 46.0 %[facility] HemeAutoSSHemoglobin (Bld) [Mass/Vol]13.7 g/oAQeefen86.0 - 16.0 gm/dLFTMC HemeAutoSSMCH (RBC) [Entitic mass]29.3 daOrckmi97.0 - 34.0 pgFTMC HemeAutoSSMCHC (RBC) [Mass/Vol]33.4 g/gOWhfmhr78.4 - 36.0 gm/dLFTMC HemeAutoSS MCV (RBC) [Entitic vol]87.8 cPCyykce52.0 - 100.0 fLFTMC HemeAutoSSPlatelet mean volume (Bld) [Entitic vol]8.3 fLNormal6.4 - 10.8 fLFTMC HemeAutoSSPlatelets (Bld) [#/Vol]216.0 E9/UUnsumw898.0 - 500.0 E9/LFTMC HemeAutoSSRBC (Bld) [#/Vol] 4.7 E12/LNormal4.3 - 5.9 E12/LFTMC HemeAutoSSWBC corrected for nucl RBC Auto (Bld) [#/Vol]6.8 E9/LNormal4.0 - 11.0 E9/LFTMC HemeAutoSSMG MAMM DIAGNOSTIC 3D TAMMY CADon 05-65-4193KS MAMM DIAGNOSTIC 3D TAMMY CADPatient: IVONNE CESPEDES Exam Date: 05/29/2022 : 1955 Gender:F Ordering : DR NURYS BOGGS M.D. Admission #: [id number] Family : Order #: [id number] CLICK HERE TO VIEW EXAM RADIOLOGY REPORT [...] colon cancer at age 52. LOCATION: [facility] BREAST COMPOSITION: Extremely dense, which lowers [...] by: Chaparro Eckert M.D. on 05/29/2022 at 15:37[facility] CenterCHEMISTRYOrdered By: SYSTEM SYSTEM on 39-33-5572Nebxeiqoab [Mass/Vol]0.8 mg/dLNormal0.5 - 1.3 mg/dLFTMC RemisolGFR/1.73 sq M.predicted among blacks MDRD (S/P/Bld) [Vol rate/Area]mL/min/1.73 i6Uddfev>=59mL/min/1.73 m2[facility] Chem S GFR/1.73 sq M.predicted among non-blacks MDRD (S/P/Bld) [Vol rate/Area] mL/min/1.73 x4Eaqywo>=59mL/min/1.73 m2FT Chem SCT ABD/PELV W CONon 02-02-2022 CT ABD/PELV W CONEXAMINATION: CT ABD/PELV W CON, 02/01/2022 1:02 PM [...] of acute diverticulitis Electronically authenticated by: ALEXANDRO MELTON Date: 2022-02-02 09:00[facility] 28-71-8426Aefsjksedm [Mass/Vol]0.71 mg/dLNormal 0.55-1.02Clermont County HospitalComment on above:Performed By: #### CREA #### [facility] [address] [place] [address] Dr. Marcelo AlcazarGFR-AF ENGLISH>60Normal>=60[facility] HospitalCom[facility] on above:Performed By: #### CREA #### [facility] [address] [place] [address] Dr. Marcelo AlcazarGFR-NON AF ENGLISH>60Normal>=60[facility] on above:Performed By: #### CREA #### [facility] [address] [place] [address] Dr. Marcelo BlackwellComplete Blood Count with Auto Diffon 39-01-5863Feycxbeac (Bld) [#/Vol]0.07 10*3/uLNormal0.00-0.20[facility] on above:Performed By: #### TSH reflex FT4, CMP, CBCAD, FT4, LIPD, VITD #### [facility] [address] [place], [place] [id number]/100 WBC (Bld)1.4 %[facility] on above:Performed By: #### TSH reflex FT4, CMP, CBCAD, FT4, LIPD, VITD #### [facility] [address] [place], [place] [id number] (Bld) [#/Vol]0.28 10*3/uLNormal0.02-0.50NoAvita Health System Ontario HospitalComment on above:Performed By: #### TSH reflex FT4, CMP, CBCAD, FT4, LIPD, VITD #### [facility] [address] [place], [place] [id number]/100 WBC (Bld)5.7 %[facility]Com[facility] on above:Performed By: #### TSH reflex FT4, CMP, CBCAD, FT4, LIPD, VITD #### [facility] [address] [place], [place] [id number] distribution width (RBC) [Ratio]13.9 %Normal 11.0-15.0[facility] on above:Performed By: #### TSH reflex FT4, CMP, CBCAD, FT4, LIPD, VITD #### [facility] [address] [place], [place] [id number] (Bld) [Volume fraction]41.9 %Izlvmn21.0-47.0 [facility] on above:Performed By: #### TSH reflex FT4, CMP, CBCAD, FT4, LIPD, VITD #### [facility] [address] [place], [place] [id number] (Bld) [Mass/Vol]13.5 g/uKSoyirq72.6-15.5NoProtestant Hospital SpecialistComment on above:Performed By: #### TSH reflex FT4, CMP, CBCAD, FT4, LIPD, VITD #### [facility] [address] [place], [place] [id number] (Bld) [#/Vol]1.6 10*3/uLNormal0.9-3.9NoProtestant Hospital SpecialistComment on above:Performed By: #### TSH reflex FT4, CMP, CBCAD, FT4, LIPD, VITD #### [facility] [address] [place], [place] [id number]/100 WBC (Bld)31.6 %NormalNoProtestant Hospital SpecialistComment on above:Performed By: #### TSH reflex FT4, CMP, CBCAD, FT4, LIPD, VITD #### [facility] [address] [place], [place] [id number] (RBC) [Entitic mass]28.8 yxTysubw74.0-33.0NoProtestant Hospital SpecialistComment on above:Performed By: #### TSH reflex FT4, CMP, CBCAD, FT4, LIPD, VITD #### [facility] [address] [place], [place] [id number] (RBC) [Mass/Vol]32.2 g/wALxydsl23.0-36.0NoProtestant Hospital SpecialistComment on above:Performed By: #### TSH reflex FT4, CMP, CBCAD, FT4, LIPD, VITD #### [facility] [address] [place], [place] [id number] (RBC) [Entitic vol]90 kOKkofrk08-596Cxucfsnh [facility] SpecialistComment on above:Performed By: #### TSH reflex FT4, CMP, CBCAD, FT4, LIPD, VITD #### [facility] [address] [place], [place] [id number] (Bld) [#/Vol]0.5 10*3/uLNormal0.2-0.9NoProtestant Hospital SpecialistComment on above:Performed By: #### TSH reflex FT4, CMP, CBCAD, FT4, LIPD, VITD #### [facility] [address] [place], [place] [id number]/100 WBC (Bld)10.0 %NormalBarney Children'S Medical Center SpecialistComment on above:Performed By: #### TSH reflex FT4, CMP, CBCAD, FT4, LIPD, VITD #### [facility] [address] [place], [place] [id number] (Bld) [#/Vol]2.5 10*3/uLNormal1.5-7.8NoProtestant Hospital SpecialistComment on above:Performed By: #### TSH reflex FT4, CMP, CBCAD, FT4, LIPD, VITD #### [facility] [address] [place], [place] [id number]/100 WBC (Bld)51.1 %NormalNoProtestant Hospital SpecialistComment on above:Performed By: #### TSH reflex FT4, CMP, CBCAD, FT4, LIPD, VITD #### [facility] [address] [place], [place] [id number] mean volume (Bld) [Entitic vol]10.10 fLNormal 7.50-12.50NoProtestant Hospital SpecialistComment on above:Performed By: #### TSH reflex FT4, CMP, CBCAD, FT4, LIPD, VITD #### [facility] [address] [place], [place] [id number] (Bld) [#/Vol]236 10*3/uJMmcbvr330-341Cppvykpx [facility] SpecialistComment on above:Performed By: #### TSH reflex FT4, CMP, CBCAD, FT4, LIPD, VITD #### [facility] [address] [place], [place] [id number] (Bld) [#/Vol]4.68 10*6/uLNormal3.90-5.20NoProtestant Hospital SpecialistComment on above:Performed By: #### TSH reflex FT4, CMP, CBCAD, FT4, LIPD, VITD #### [facility] [address] [place], [place] [id number]-MV88.1 fNNyludz37.0-50.0NoProtestant Hospital Specialist Comment on above:Performed By: #### TSH reflex FT4, CMP, CBCAD, FT4, LIPD, VITD #### [facility] [address] [place], [place] [id number] (Bld) [#/Vol]4.9 10*3/uLNormal3.8-11.0NoProtestant Hospital SpecialistComment on above:Performed By: #### TSH reflex FT4, CMP, CBCAD, FT4, LIPD, VITD #### [facility] [address] [place], [place] [id number] Metabolic Panelon 45-26-3572Yyzsedi [Mass/Vol] 4.3 g/dLNormal3.6-5.1NorthA[facility] SpecialistComment on above:Performed By: #### TSH reflex FT4, CMP, CBCAD, FT4, LIPD, VITD #### [facility] [address] [place], [place] [id number]/Globulin [Mass ratio]1.7 {ratio}Normal1.0-2.5NoProtestant Hospital SpecialistComment on above:Performed By: #### TSH reflex FT4, CMP, CBCAD, FT4, LIPD, VITD #### [facility] [address] [place], [place] [id number] [Catalytic activity/Vol]90 U/UAnjyxs60-956Qoxebpmt [facility] SpecialistComment on above:Performed By: #### TSH reflex FT4, CMP, CBCAD, FT4, LIPD, VITD #### [facility] [address] [place], [place] [id number] [Catalytic activity/Vol]11 U/LNormal6-33NoProtestant Hospital SpecialistComment on above:Result Comment: 07/26/2021 Female reference range changed.Performed By: #### TSH reflex FT4, CMP, CBCAD, FT4, LIPD, VITD #### [facility] [address] [place], [place] [id number] gap [Moles/Vol]17 mmol/INxyoad46-23Ekurbyvd [facility] SpecialistComment on above:Result Comment: Effective 08/31/2019 reference range changed.Performed By: #### TSH reflex FT4, CMP, CBCAD, FT4, LIPD, VITD #### [facility] [address] [place], [place] [id number] [Catalytic activity/Vol]17 U/LNormal9-34NoProtestant Hospital SpecialistComment on above:Performed By: #### TSH reflex FT4, CMP, CBCAD, FT4, LIPD, VITD #### [facility] [address] [place], [place] [id number]/CREA24 RatioHigh6-22NoProtestant Hospital Specialist Comment on above:Performed By: #### TSH reflex FT4, CMP, CBCAD, FT4, LIPD, VITD #### [facility] [address] [place], [place] [id number] [Mass/Vol]9.7 mg/dLNormal8.6-10.2NortherTriHealth McCull[facility] SpecialistComment on above:Performed By: #### TSH reflex FT4, CMP, CBCAD, FT4, LIPD, VITD #### [facility] [address] [place], [place] [id number] [Moles/Vol]104 mmol/ASetkib88-810Scoqtuvz [facility] SpecialistComment on above:Performed By: #### TSH reflex FT4, CMP, CBCAD, FT4, LIPD, VITD #### [facility] [address] [place], [place] [id number] [Moles/Vol]27 mmol/QLjdwhz89-95Fupvszie [facility] SpecialistComment on above:Performed By: #### TSH reflex FT4, CMP, CBCAD, FT4, LIPD, VITD #### [facility] [address] [place], [place] [id number] [Mass/Vol]0.5 mg/dLLow0.6-1.4NoProtestant Hospital SpecialistComment on above:Performed By: #### TSH reflex FT4, CMP, CBCAD, FT4, LIPD, VITD #### [facility] [address] [place], [place] [id number] mL/min/1.99w3Kjicdg>60NoProtestant Hospital SpecialistComment on above:Performed By: #### TSH reflex FT4, CMP, CBCAD, FT4, LIPD, VITD #### [facility] [address] [place], [place] [id number] mL/min/1.84r0Msmaqi>60NoProtestant Hospital SpecialistComment on above:Performed By: #### TSH reflex FT4, CMP, CBCAD, FT4, LIPD, VITD #### [facility] [address] [place], [place] [id number] (S) [Mass/Vol]2.5 g/dLNormal1.9-3.7NoProtestant Hospital SpecialistComment on above:Performed By: #### TSH reflex FT4, CMP, CBCAD, FT4, LIPD, VITD #### [facility] [address] [place], [place] [id number] [Mass/Vol]92 mg/tXQuyolc05-22Ozavkgrl [facility] SpecialistComment on above:Result Comment: For FASTING Glucose --- ADA reference ranges: Normal 65-99 mg/dl Prediabetes 100-125 Diabetes >/= 126Performed By: #### TSH reflex FT4, CMP, CBCAD, FT4, LIPD, VITD #### [facility] [address] [place], [place] [id number] [Moles/Vol]4.5 mmol/LNormal3.5-5.5NoProtestant Hospital SpecialistComment on above:Performed By: #### TSH reflex FT4, CMP, CBCAD, FT4, LIPD, VITD #### [facility] [address] [place], [place] [id number] [Mass/Vol]6.8 g/dLNormal6.1-8.1[facility] SpecialistComment on above:Performed By: #### TSH reflex FT4, CMP, CBCAD, FT4, LIPD, VITD #### [facility] [address] [place], [place] [id number] [Moles/Vol]143 mmol/MKbzvvo996-847Ghvlcihv [facility] SpecialistComment on above:Performed By: #### TSH reflex FT4, CMP, CBCAD, FT4, LIPD, VITD #### [facility] [address] [place], [place] [id number]<0.3NormalNoProtestant Hospital SpecialistComment on above:Performed By: #### TSH reflex FT4, CMP, CBCAD, FT4, LIPD, VITD #### [facility] [address] [place], [place] [id number] nitrogen [Mass/Vol]12 mg/dLNormal7-25NortCleveland Clinic Hill[facility] SpecialistComment on above:Performed By: #### TSH reflex FT4, CMP, CBCAD, FT4, LIPD, VITD #### [facility] [address] [place], [place] [id number] T4on 35-35-5389Edxv T4 [Mass/Vol]0.93 ng/dLNormal 0.80-1.80NoProtestant Hospital SpecialistComment on above:Performed By: #### TSH reflex FT4, CMP, CBCAD, FT4, LIPD, VITD #### [facility] [address] [place], [place] [id number] Panelon 80-34-2601Lnkvpymgynj [Mass/Vol]172 mg/dLNormal 125-200NoProtestant Hospital SpecialistComment on above:Result Comment: Low risk < 200mg/dL Borderline risk 201-239 mg/dl High risk > or equal to 240Performed By: #### TSH reflex FT4, CMP, CBCAD, FT4, LIPD, VITD #### [facility] [address] [place], [place] [id number] in HDL [Mass/Vol]41 mg/dLNormal>40NoProtestant Hospital SpecialistComment on above:Result Comment: High Cardiovascular Risk HDL <40 mg/dL Low Cardiovascular Risk HDL > or equal to 60 mg/dlPerformed By: #### TSH reflex FT4, CMP, CBCAD, FT4, LIPD, VITD #### [facility] [address] [place], [place] [id number] in LDL [Mass/Vol]96 mg/dLNormalNoProtestant Hospital SpecialistComment on above:Result Comment: LDL ATP III CLASSIFICATION LDL less than 100 mg/dl Optimal LDL 100-129 mg/dl Near or above optimal LDL 130-159 Borderline high LDL 160-189 High LDL greater than 189 mg/dl Very HighPerformed By: #### TSH reflex FT4, CMP, CBCAD, FT4, LIPD, VITD #### [facility] [address] [place], [place] [id number] in VLDL [Mass/Vol]35 mg/dLNormalNoProtestant Hospital SpecialistComment on above:Performed By: #### TSH reflex FT4, CMP, CBCAD, FT4, LIPD, VITD #### [facility] [address] [place], [place] [id number].total/Cholesterol in HDL [Mass ratio]4 {ratio} NormalNoProtestant Hospital SpecialistComment on above:Performed By: #### TSH reflex FT4, CMP, CBCAD, FT4, LIPD, VITD #### [facility] [address] [place], [place] [id number] [Mass/Vol]176 mg/dHYqcw54-102Mwlljexz [facility] SpecialistComment on above:Result Comment: TRIG ATPIII CLASSIFICATIONS TRIG less than 150 mg/dl Normal TRIG 150-199 mg/dl Borderline High TRIG 200-500 mg/dl High TRIG greather than 500 mg/dl Very HighPerformed By: #### TSH reflex FT4, CMP, CBCAD, FT4, LIPD, VITD #### [facility] [address] [place], [place] [id number] w/ Reflex to Free T4on 39-95-3657YY1 reflexFree T8Hqlqpn [facility] HospitalComment on above:Performed By: #### TSH reflex FT4, CMP, CBCAD, FT4, LIPD, VITD #### [facility] [address] [place], [place] [id number] uIU/mLHigh0.400-4.500NortherDiley Ridge Medical CenterComment on above:Performed By: #### TSH reflex FT4, CMP, CBCAD, FT4, LIPD, VITD #### [facility] [address] [place], [place] [id number] D 25-OHon 91-06-4799AKS D 25 OH53 ng/mlNormal>29 [facility] HospitalComment on above:Result Comment: Vitamin D Status Deficiency <20 ng/mL Insufficiency 20-29 ng/mL Optimal 30-100 ng/mL Possible Toxicity >=150 ng/mLPerformed By: #### TSH reflex FT4, CMP, CBCAD, FT4, LIPD, VITD #### [facility] [address] [place], [place] [id number] Noteon 41-85-6047Ddafziitpl NoteSt. [facility] [place] Patient: IVONNE CESPEDES [address] [place] [address] MR#: [id number] ANESTHESIA NOTE : Service Date: 06/02/21 105 Post-anesthesia Note Note Patient assessed post operatively [...] Signed eSign Date and Time Yossi Vargas 06/02/21 1057 Renu Donaldson. [facility] CaliforniaBASIC MET PANELon 97-93-0133Wgrai gap [Moles/Vol]10 mmol/LNormal6-18St. [facility] Children Northern CaliforniaComment on above:Performed By: #### M400.61073 #### Test performed at: [address] [address]Dvwiawq [Mass/Vol]8.4 mg/dLLow8.5-10.1St. [facility] Children Northern CaliforniaComment on above:Performed By: #### M400.48692 #### Test performed at: [address] [address]Bzgjfboh [Moles/Vol]106 mmol/LIrxtgd68-822Pj. [facility] Children Northern CaliforniaComment on above:Performed By: #### M400.34642 #### Test performed at: [address] [address]HQ2 [Moles/Vol]26 mmol/OMcmzxu05-42Tp. [facility] CaliforniaComment on above:Performed By: #### M400.39659 #### Test performed at: [address] [address]Pbejvhxdyy [Mass/Vol]0.649 mg/dLNormal0.550-1.020St. [facility] Northern CaliforniaComment on above:Performed By: #### M400.13006 #### Test performed at: [address] [address]Tqryxyh [Mass/Vol]167 mg/kWRvfv45-85Bq. [facility] CaliforniaComment on above:Result Comment: Fasting GLUCOSE reference range has been updated per (ADA) [place] [employer]'s recommendation. 11/18/2018Performed By: #### M400.93485 #### Test performed at: [address] [address]CCW289 mosm/wwCtwpdf143-134Sz. [facility] CaliforniaComment on above:Performed By: #### M400.40413 #### Test performed at: [address] [address]Nzvczgwcr [Moles/Vol]4.2 mmol/LNormal3.5-5.1St. [facility] Children Northern CaliforniaComment on above:Performed By: #### M400.51992 #### Test performed at: [address] [address]Hwdbby [Moles/Vol]138 mmol/AJatgvv857-712Gs. [facility] Northern CaliforniaComment on above:Performed By: #### M400.82161 #### Test performed at: [place] [address]Urea nitrogen [Mass/Vol]12 mg/dLNormal7-18St. [facility] CaliforniaComment on above:Performed By: #### M400.58902 #### Test performed at: [place] [id number] CCD Assessmenton 49-67-9189Bhjmymuld CCD AssessmentSt. [facility] Patient: IVONNE CESPEDES [address] [place] [address] MR#: [id number] DISCHARGE CCD ASSESSMENT : 51 Service Date: 06/02/21 1029 Discharge CCD Assessment Assessment Patient discharged home to continue pain control, wound care, and exercises. Electronically Signed eSign Date and Time Comfort Chao 06/02/21 1030 Dev Villafana MDNormalSt. [facility] Northern CaliforniaGFR ESTIMATEon 58-56-9857XP AMER> 60Normal> 60St. [facility] CaliforniaComment on above:Result Comment: eGFR (Estimated GFR) Units of measure:mL/min/1.73 meters sq. *CALCULATION REVISED 06/14/2015;IDMS-traceable MDRD equation eGFR is derived from the reexpressed MDRD Study equation using the following parameters: serum creatinine, age, gender and race. An eGFR<60 mL/min/1.73m2 for >3 months is consistent with chronic kidney disease. Refer to KDOQI guidelines for clinical interpretation.Performed By: #### M400.78133 #### Test performed at: [address] [address]EE non-AFR AMER> 60Normal> 60St. [facility] Children Northern CaliforniaComment on above:Performed By: #### M400.11339 #### Test performed at: [address] [address]TWZ AND HCTon 00-91-0844Lhzdmeufdt (Bld) [Volume fraction] 33.9 %Low36.0-48.0St. [facility] Children Northern CaliforniaComment on above:Performed By: #### M400.81023 #### Test performed at: [address] [address]Fepoizrrao (Bld) [Mass/Vol]11.0 g/dLLow12.0-15.0St. [facility] Children Northern CaliforniaComment on above:Result Comment: Delta: 13.7 on 05/30/21-1240Performed By: #### M400.94699 #### Test performed at: [address] [address]Rmspejoe Med Progress Noteon 12-65-6491Xlcqpusz Med Progress NoteSt. [facility] [place] Patient: IVONNE CESPEDES [address] [place] [address] MR#: [id number] PROGRESS NOTE - Internal Medicine : 51 Service Date: 06/02/21724 Subjective Primary Resident: Kar Canales After Hours Call: [phone] Blue Team Summary of Stay a 66 [...] 06/02 822 O2 Delivery NASAL CANNULA 06/02 0451 O2 Flow Rate 3 06/01 1429 Intake AND Output Verdana 4d 06/02 2300 06/01 2300 Intake Total 1460 1480 Output Total 500 [...] Strength at 5/5 X4 Ext, Sensation Intact Assessment/Plan-Internal Med Problem List 1. Status post lumbar [...] Agree with above documentation. The [resident's, PA's, SPECK DYER's] assessment and plan reflect my input. Discussed with documenting provider and patient. Plan is as outlined above. Electronically Signed eSign Date and Time Bar Canales Donald E. MD 06/03/21 2346 Daija Henry. [facility] CaliforniaOT Therapy Recommendationson 25-70-1223KZ Therapy RecommendationsSt. [facility] [place] Patient: IVONNE CESPEDES [place] [id number] MR#: [id number] OT THERAPY RECOMMENDATIONS : 53 Service Date: 06/02/21 1143 Therapy Recommendations Therapy Recommendations Recommendations Occupational therapy eval complete. No skilled OT indicated. Recommend home with family assist. D/C OT services. Electronically Signed eSign Date and Time Cathryn Stoll OT 06/02/21 114DaylinNormalSt. [facility] For Children Northern CaliforniaOrthopedic Progress Noteon 73-60-3385Gpmfcsgcmp Progress NoteSt. [facility] [place] Patient: IVONNE CESPEDES [place] [id number] MR#: [id number] PROGRESS NOTE - Orthopedic : 51 Service [...] Signs Verdana 4d Result Date Time B/P 95/58 06/02 1058 Temp 36.6 06/02 1058 Pulse [...] Sabrina Reagan RN 06/02/21 1128 Dev Villafana MDNormalSt. [facility] For Children Northern CaliforniaPT Therapy Recommendationson 36-26-1739QT Therapy RecommendationsSt. [facility] [place] Patient: [place] [address] MR#: [id number] PT THERAPY RECOMMENDATIONS : 53 Service Date: 06/02/21 1503 Therapy Recommendations Therapy Recommendations Recommendations PT EVAL COMPLETED. DC RECOMM: HOME WITH ASST. FROM FAMILY AND FRIENDS. Electronically Signed eSign Date and Time Twyla Billings PT 06/02/21 1503NormalSt. Shriners Hospitals For Children Northern Californiaz OT Inpatient Discharge Noteon 06-02-2021 OT Inpatient Discharge NoteSt. [facility] [place] Patient: IVONNE CESPEDES [place] [id number] MR#: [id number] OT INPATIENT DISCHARGE NOTE : 51 Service [...] Date and Time Cathryn Stoll OT 06/02/21 1339NormalSt. Shriners Hospitals For Children Northern Californiaz OT Inpatient Evaluationon 06-02-2021z OT Inpatient EvaluationSt. [facility] [place] Patient: IVONNE CESPEDES [place] [id number] MR#: [id number] OT INPATIENT EVALUATION : 51 Inpatient OT [...] 12 (to 2nd fl bed/bath) ADL Equipment Plasma Processing Technician Bedroom Location 2nd Floor Bathroom Location 1st [...] Date and Time Cathryn Stoll OT 06/02/21 1339NormalSt[address] [facility] Inpatient Discharge Noteon 06-02-2021 PT Inpatient Discharge NoteSt. [facility] [place] Patient: IVONNE CESPDEES [address] [place] [address] MR#: [id number] PT INPATIENT DISCHARGE NOTE : 51 Service [...] Date and Time Twyla Billings PT 06/02/21 1504NormalSt. Shriners Hospitals For Children Northern Californiaz PT Inpatient Evaluationon 06-02-2021z PT Inpatient EvaluationSt. [facility] [place] Patient: IVONNE CESPEDES [address] [place] [address] MR#: [id number] PT INPATIENT EVALUATION : 51 Service Date: [...] , BRACE ON, UP WITH ASST., ENCOURAGE AMBULATION/CALF/ANKLE EX'S. PATIENT ID'D VIA NAME AND . [...] 12 (to 2nd fl bed/bath) ADL Equipment Plasma Processing Technician Bedroom Location 2nd Floor Bathroom Location 1st [...] Recommendations Home-No Home Health Care Topic #1 TAXICAB DRIVER Teaching Method: BOOKLET Teaching Method: TEACHBACK Outcome: [...] Yes Electronically Signed eSign Date and Time Twyla Billings PT 06/02/21 1512NormalSt. [facility] Hospitals For Children Northern CaliforniaInternal Medicine Consultationon 60-68-3333Pfxqetgm Medicine ConsultationSt. [facility] [place] Patient: IVONNE CESPEDES [facility] [place] [address] MR#: [id number] CONSULTATION - Internal Medicine : 53 Service [...] Allergies/Home Medications Allergies Coded Allergies: BUPROPION (From [employer]) (06/01/21) DIFFICULTY BREATHING Reconcile Medications Scheduled Medications [...] *Attending Attestation Attending Attesta (more content not included)...NormalSt. Shriners Hospitals For Children Northern CaliforniaOPERATIVE REPORTon 59-87-3891WWBJJLSVK REPORTNAME: IVONNE CESPEDES MR#: [id number] SURGEON: Dev Villafana MD DATE OF SURGERY: [...] room in excellent condition. There were no [facility] PT NAME: IVONNE CESPEDES MR#: [id number] [address] [place], [place] [address] ACCT: [id number] : 51 OPERATIVE REPORT complications. DEV VILLAFANA MD JFReese/MODL/[id number] E/S: Dev Villafana MD 06/29/21 1129 Electronically Signed [facility] PT NAME: IVONNE CESPEDES MR#: [id number] [address] [place] [address] ACCT: [id number] : 51 OPERATIVE REPORTNormalSt. [facility] CaliforniaPrimary Residenton 10-49-3973Ttfvutl ResidentST. [facility] Pt Name: IVONNE CESPEDES MR#: [id number] [address] [place] [address] ACCT: [id number] [place] [id number] : 51 Service Date: 06/01/21 1246 Primary Resident/Call Primary Resident: [id number] [address] After Hours Call: [phone] Blue Team Electronically Signed eSign Date and Time Bar Canales Reside 06/01/21 1304NormalSt. [facility] [place] LUMBAR SPINE 2 OR 3 VIEWSon 28-47-1337GEZHMR SPINE 2 OR 3 VIEWSSTUDY: LUMBAR SPINE 2 OR 3 VIEWS; 06/01/2021 12:20 pm INDICATION: L5-S1 EXTRAFORAMINAL DECOMP. FACETECTOMY, DISCECTOMY. COMPARISON: None. ACCESSION NUMBER(S): [id number] ORDERING CLINICIAN: Dev Villafana FINDINGS: Intraoperative fluoroscopy of the lumbar spine obtained for localization. IMPRESSION: As aboveNormalSt. [facility] W/DIFFon 30-61-2564RDWC ABS 0.1 K/uLNormal0.0-0.2St. [facility] CaliforniaComment on above: Performed By: #### L200.49382 #### Test performed at: [address] [address]Xqzqeegez/100 WBC (Bld)0.8 %NormalSt. Shriners Hospitals For Children Northern CaliforniaComment on above:Performed By: #### L200.70654 #### Test performed at: [address] [address]TVQ ABS0.2 K/uLNormal0.0-0.5St. [facility] Northern CaliforniaComment on above:Performed By: #### L200.39898 #### Test performed at: [address] [address]Itloohsxmvq/100 WBC (Bld)3.3 %NormalSt. Shriners Hospitals For Children [place] CaliforniaComment on above:Performed By: #### L200.92278 #### Test performed at: [address] [address]Oelseekorkn distribution width (RBC) [Ratio]14.3 %Normal 11.5-14.5[facility] Northern CaliforniaComment on above:Performed By: #### L200.67663 #### Test performed at: [address] [address]Wkftxwpfsr (Bld) [Volume fraction]42.9 %Pwudwk13.0-48.0[facility] Northern CaliforniaComment on above:Performed By: #### L200.90059 #### Test performed at: [address] [address]Vtkgycckxj (Bld) [Mass/Vol]13.7 g/hIAyuqji38.0-15.0[facility] Northern CaliforniaComment on above:Performed By: #### L200.31772 #### Test performed at: [address] [address]PN %0.2 %NormalSt. Shriners Hospitals For Children Northern CaliforniaComment on above:Performed By: #### L200.43051 #### Test performed at: [address] [address]QA ABS0.01 K/uLNormal0-0.05[facility] [place] CaliforniaComment on above:Performed By: #### L200.25953 #### Test performed at: [address] [address]Rreooqgllzs (Bld) [#/Vol]1.8 10*3/uLNormal1.2-3.5[facility] Northern CaliforniaComment on above:Performed By: #### L200.97629 #### Test performed at: [address] [address]Oxjhfwsgyyx/100 WBC (Bld)28.9 %NormalSt. Shriners Hospitals For Children Northern CaliforniaComment on above:Performed By: #### L200.36711 #### Test performed at: [address] [address]ZYS (RBC) [Entitic mass]29.3 qsUluvwp65.4-34.6[facility] Northern CaliforniaComment on above:Performed By: #### L200.80396 #### Test performed at: [address] [address]ESZH (RBC) [Mass/Vol]31.9 g/mKRbnccj51.5-36.5[facility] [place] CaliforniaComment on above:Performed By: #### L200.40972 #### Test performed at: [address] [address]WPA (RBC) [Entitic vol]91.7 fZJuvufq50.0-98.0[facility] Northern CaliforniaComment on above:Performed By: #### L200.72923 #### Test performed at: [address] [address]IDBK ABS0.5 K/uLNormal0.0-1.0[facility] [place] CaliforniaComment on above:Performed By: #### L200.92045 #### Test performed at: [address] [address]Kzjjnuxjo/100 WBC (Bld)7.4 %NormalSt. Shriners Hospitals For Children Northern CaliforniaComment on above:Performed By: #### L200.48936 #### Test performed at: [address] [address]RVTHOFKVMF ABS3.8 K/uLNormal1.4-6.6[facility] [place] CaliforniaComment on above:Performed By: #### L200.01816 #### Test performed at: [address] [address]Vhxrvguvzgn/100 WBC (Bld)59.4 %NormalSt. Shriners Hospitals For Children Northern CaliforniaComment on above:Performed By: #### L200.44178 #### Test performed at: [address] [address]WBRG #0.000 K/uLNormal0-0.012[facility] [place] CaliforniaComment on above:Performed By: #### L200.15878 #### Test performed at: [address] [address]RFXR %0.0 /100 WBCNormal0-0.2[facility] [place] CaliforniaComment on above:Performed By: #### L200.91059 #### Test performed at: [address] [address]Uxzsmsrp mean volume (Bld) [Entitic vol]10.9 fLNormal 8.7-12.4[facility] [place] CaliforniaComment on above:Performed By: #### L200.20469 #### Test performed at: [address] [address]Nhgrhygfx (Bld) [#/Vol]224 10*3/zIHwjeoa360-267Bt. [facility] [place] CaliforniaComment on above:Performed By: #### L200.40182 #### Test performed at: [address] [address]NCF (Bld) [#/Vol]4.68 10*6/uLNormal3.5-5.5[facility] [place] CaliforniaComment on above:Performed By: #### L200.21661 #### Test performed at: [address] [address]SNM (Bld) [#/Vol]6.4 10*3/uLNormal3.9-11.0[facility] [place] CaliforniaComment on above:Performed By: #### L200.83652 #### Test performed at: [address] [address]HLLGJ PA/AP & LATERALon 95-67-3363YTLGJ PA/AP & LATERAL STUDY: CHEST PA/AP LATERAL; 05/30/2021 12:50 pm INDICATION: SOB/PAT. COMPARISON: None. ACCESSION NUMBER(S): [id number] ORDERING CLINICIAN: Dev Villafana FINDINGS: The lungs are clear without pleural effusion. Normal heart size, mediastinum, isidoro, and pulmonary vasculature. IMPRESSION: No active disease in the chest.NormalSt. Shriners Hospitals For Children Northern CaliforniaCOMP META PANELon 98-17-4765Zjbriao [Mass/Vol]3.6 g/dLNormal3.4-5.0[facility] [place] CaliforniaComment on above:Performed By: #### L500.62118, L500.42849 #### Test performed at: [address] [address]TEV PHOS TOTAL88 U/GEfxkna88-241Bc. [facility] [place] CaliforniaComment on above:Performed By: #### L500.63232, L500.35718 #### Test performed at: [address] [address]MFH [Catalytic activity/Vol]13 U/WOfxvon94-86Ez. [facility] [place] CaliforniaComment on above:Performed By: #### L500.66582, L500.66626 #### Test performed at: [address] [address]WOO [Catalytic activity/Vol]20 U/CZlcwnl31-36Kv. [facility] [place] CaliforniaComment on above:Performed By: #### L500.36228, L500.84860 #### Test performed at: [address] [address]NOUS TOTAL0.3 mg/dLNormal0.2-1.0[facility] [place] CaliforniaComment on above:Performed By: #### L500.51563, L500.02921 #### Test performed at: [address] [address]Xlyytdn [Mass/Vol]9.1 mg/dLNormal8.5-10.1[facility] [place] CaliforniaComment on above:Performed By: #### L500.94108, L500.86835 #### Test performed at: [address] [address]Kcbvkrlq [Moles/Vol]107 mmol/RSwbykg30-991Wy. [facility] [place] CaliforniaComment on above:Performed By: #### L500.05743, L500.07373 #### Test performed at: [address] [address]YA4 [Moles/Vol]29 mmol/MVsdcuk37-90Er. [facility] [place] CaliforniaComment on above:Performed By: #### L500.77136, L500.13554 #### Test performed at: [address] [address]Dgvmylvxoz [Mass/Vol]0.553 mg/dLNormal0.550-1.020[facility] [place] CaliforniaComment on above:Performed By: #### L500.55397, L500.11172 #### Test performed at: [address] [address]Hseosof [Mass/Vol]100 mg/kVAhfo81-93Bf. [facility] [place] CaliforniaComment on above:Result Comment: Fasting GLUCOSE reference range has been updated per (ADA) [place] [employer]'s recommendation. 11/18/2018Performed By: #### L500.01442, L500.71135 #### Test performed at: [address] [address]Hwcciaejz [Moles/Vol]4.4 mmol/LNormal3.5-5.1[facility] [place] CaliforniaComment on above:Performed By: #### L500.09485, L500.92060 #### Test performed at: [address] [address]Pcqaozu [Mass/Vol]7.4 g/dLNormal6.4-8.2[facility] [place] CaliforniaComment on above:Performed By: #### L500.90117, L500.91519 #### Test performed at: [address] [address]Numazc [Moles/Vol]139 mmol/JDftaaw045-097Lt. [facility] [place] CaliforniaComment on above:Performed By: #### L500.61484, L500.53565 #### Test performed at: [facility] [address] [place] [address]Hnew nitrogen [Mass/Vol]9 mg/dLNormal7-18[facility] [place] CaliforniaComment on above:Performed By: #### L500.07677, L500.83896 #### Test performed at: [place] [address] [address]UBTRYAPHNVHQ REPORTon [id number] REPORTNAME: IVONNE CESPEDES MR#: [id number] FAMILY RESOURCE SPECIALIST: Tommie Mcwilliams MD DATE OF CONSULTATION: 05/30/2021 [...] no major past history. She has a 49-yoax-xhoh smoking, and no fevers or chills. No [...] disorder. 3. Possible chronic obstructive pulmonary disease. [facility] PT NAME: IVONNE CESPEDES MR#: [id number] [address] [place], [place] [address] ACCT: [id number] : 53 CONSULTATION PLAN: EKG is within acceptable limits. I am going to do a chest x- ray, CBC, CMP, and a PT/INR. I told her to try and see if she can stop smoking. It will help with wound healing also, and pending the labs, she is cleared for anesthesia with acceptable risk. I told her not to take medications like aspirin, Aleve, ibuprofen, or nonsteroidals. Thank you for the courtesy of this consultation. TOMMIE MCWILLIAMS MD MS/MODL/[id number] E/S: Tommie Mcwilliams MD 05/31/21 1510 Electronically Signed [facility] PT NAME: IVONNE CESPEDES MR#: [id number] [address] [place], [place] [id number] ACCT: [id number] : 53 CONSULTATIONNormalSt. [facility] [place] CaliforniaCORONAVIRUSon 05-30-2021 SARS-CoV-2 (COVID-19) RNA SARANYA+probe Ql (Unsp spec)Methodology: PCR Negative results do not preclude SARS-CoV-2 [...] labeling are available on the FDA website: https://www.fda.gov/MedicalDevices/Safety/ EmergencySituations/sae003926.htm COVID-19 Negative for COVID-19 (SARS-CoV-2 RNA)NormalSt. Shriners Hospitals For Children Northern CaliforniaComment on above:Order Comment: CBN: YES [place]: MAIN COVID Testing: PRE-OP/PROCEDURE SCREEN Comment: 06/02 AGE at Spec SHUN 66 Report age at specimen SHUN? Y First test: UNKNOWN Employed in Healthcare: NO Symptomatic as defined by CDC: NO Hospitalized for COVID-19? NO ICU: NO Resident in a Congregated Care Setting: NO Order Date: 05/30/21 : Not Performed By: #### M400.07636 #### Test performed at: [place] [address]GFR ESTIMATEon 39-95-0843DD AMER> 60Normal> 60[facility] Northern CaliforniaComment on above:Result Comment: eGFR (Estimated GFR) Units of measure:mL/min/1.73 meters sq. *CALCULATION REVISED 06/14/2015;IDMS-traceable MDRD equation eGFR is derived from the reexpressed MDRD Study equation using the following parameters: serum creatinine, age, gender and race. An eGFR<60 mL/min/1.73m2 for >3 months is consistent with chronic kidney disease. Refer to KDOQI guidelines for clinical interpretation.Performed By: #### L500.11511, L500.03307 #### Test performed at: [address] [address]OU non-AFR AMER> 60Normal> 60St[facility] Northern CaliforniaComment on above:Performed By: #### L500.30122, L500.61060 #### Test performed at: [address] [address]BDYLIDZxm 10-96-7621VIA Coag (PPP) [Relative time]0.96 {INR}Normal0.00-1.20[facility] Northern CaliforniaComment on above:Order Comment: List patient's anticoagulants for PT: NONE SPECIFIEDResult Comment: Recommended therapeutic range is an INR of 2.0-3.0 except for prevention of recurrent acute KS and mechanical prosthetic heart valve where an INR of 2.5-3.5 is recommended.Performed By: #### L300.82806 #### Test performed at: [address] [address]SP SEC10.3 secondsNormal9.0-12.5[facility] Northern CaliforniaComment on above:Order Comment: List patient's anticoagulants for PT: NONE SPECIFIEDPerformed By: #### L300.71692 #### Test performed at: [address] [address]UCDZ SP COMP W FLEX/EXT 6 VWSon 74-31-3111AGME SP COMP W FLEX/EXT 6 VWSSTUDY: LUMB SP COMP W FLEX/EXT 6 VWS ; 2021 9:55 am INDICATION: PAIN. COMPARISON: No available comparisons. ACCESSION NUMBER(S): [id number] ORDERING CLINICIAN: Dev Villafana TECHNIQUE: 6 views [...] L4-L5 and L5-S1 level. No evidence of instability.NormalSt. Shriners Hospitals For Children [place] Vital Signs Date TimeVital SignValuePerforming VunrojhzlZhhhvyur90-11-6497 14:07-0400Body .7 [degF]Rafa Kennedy Work Phone: [facility]08-26-2025 14:07-0400Diastolic blood otffxpnd03 mm[Hg]Ma Sand Work Phone: [facility]08-26-2025 14:07-0400Heart rate93 /min Ma Sand Work Phone: [facility]08-26-2025 14:07-7413QdZ5% (BldA) [Mass fraction]96 %Ma Sand Work Phone: [facility]08-26-2025 14:07-0400Systolic blood ltrcbpta081 mm[Hg]Ma Sand Work Phone: [facility]08-25-2025 13:16-0400Body fafuur080.4 cmRjumana Boggs MD Work Phone: [facility]08-25-2025 13:16-0400 Body mass index (BMI) [Ratio]25.4 kg/t5NpfddNurys Boggs MD Work Phone: [phone] [place], [place] 6874308-25-2025 13:16-0400 Body vcykri92.96 kgNurys Boggs MD Work Phone: [phone])118-[address] [place], [place] 6874308-25-2025 13:16-0400 Diastolic blood tqeqqzdk10 mm[Hg]Nurys Boggs MD Work Phone: [facility]08-25-2025 13:16-0400 Heart rate83 /minNurys Boggs MD Work Phone: [phone] [place], [place] 6874308-25-2025 13:16-0400 Systolic blood eafdrrns320 mm[Hg]Nurys Boggs MD Work Phone: [phone])696-[address] [place], [place] 6874307-28-2025 13:50-0400 Body hcmklmyjgtc89.59 [degF]Ma Sand Work Phone: [facility]07-28-2025 13:50-0400Diastolic blood vseqgnbe61 mm[Hg]Ma Sand Work Phone: [facility]07-28-2025 13:50-0400Heart rate90 /min Ma Sand Work Phone: [facility]07-28-2025 13:50-0400Respiratory rate 16 /minMa Sand Work Phone: [facility]07-28-2025 13:50-9606XvY8% (BldA) [Mass fraction]96 %Ma Sand Work Phone: [facility]07-28-2025 13:50-0400Systolic blood typaixjm084 mm[Hg]Ma Sand Work Phone: [facility]06-30-2025 14:21-0400Body temperature 97.39 [degF]Kim Joel EMERGENCY MEDICINE SPECIALIST.SUPERVISOR [employer]YING AND SOFTENING Work Phone: [facility]06-30-2025 14:21-0400Diastolic blood lykgtnsh70 mm[Hg]Kim Joel EMERGENCY MEDICINE SPECIALIST.SUPERVISOR [employer]YING AND SOFTENING Work Phone: [facility]06-30-2025 14:21-0400Heart rate81 /min Kim Joel EMERGENCY MEDICINE SPECIALIST.SUPERVISOR [employer]YING AND SOFTENING Work Phone: [facility]06-30-2025 14:21-0400Respiratory rate 16 /minJaimee Joel EMERGENCY MEDICINE SPECIALIST.SUPERVISOR [employer]YING AND SOFTENING Work Phone: [facility]06-30-2025 14:21-2006AoS6% (BldA) [Mass fraction]91 %Kim Joel EMERGENCY MEDICINE SPECIALIST.SUPERVISOR [employer]YING AND SOFTENING Work Phone: [facility]06-30-2025 14:21-0400Systolic blood tcqyckut885 mm[Hg]Kim Joel EMERGENCY MEDICINE SPECIALIST.SUPERVISOR [employer]YING AND SOFTENING Work Phone: [facility]06-18-2025 11:19-0400Body qokacu784.4 Tono Duckworth MD Work Phone: [facility]landUywktjpydg62-64-4270 11:19-0400Body mass index (BMI) [Ratio]25.39 kg/m0IikmqCristiane Duckworth MD Work Phone: [facility] NorthlandXjqssvdspb46-23-6149 11:19-0400Body zkmagi21.97 kgCristiane Duckworth MD Work Phone: [facility] CenterNjoqdmujwz91-75-3824 11:19-0400Diastolic blood tvxxclwy10 mm[Hg]Cristiane Duckworth MD Work Phone: [facility] CenterIjyerisdrg04-62-8609 11:19-0400Heart rate85 /min Cristiane Duckworth MD Work Phone: [facility] CenterCvoplebyks13-35-2989 11:19-0400Respiratory rate18 /minCristiane Duckworth MD Work Phone: [facility] CenterMtdlbsdkvr59-88-0857 11:19-9839TcE7% (BldA) [Mass fraction]97 %Cristiane Duckworth MD Work Phone: [facility] CenterGuinpdoatg75-10-2060 11:19-0400Systolic blood sjtedqvb031 mm[Hg]Cristiane Duckworth MD Work Phone: [facility] CenterTiaicmgsbm04-14-8681 13:28-0400Body .9 cmCaleben Hemmer PA Work Phone: [facility] CenterDdqiwkmsgk72-31-3137 13:28-0400Body mass index (BMI) [Ratio]24.71 kg/q7Omyad Hemmer PA Work Phone: [facility] CenterAkvfxskpmr36-63-0757 13:28-0400Body zqwdai01.33 kgCaleben Hemmer PA Work Phone: [facility] CenterRhzvzcrhzf58-14-6180 13:28-0400Diastolic blood undwvobv26 mm[Hg]Francisca Hemmer PA Work Phone: NOChildren[facility] NorthlandUojspecyio74-76-8228 13:28-0400Heart rate82 /min Francisca Hemmer PA Work Phone: NO[facility] NorthlandHljpckuutf00-10-0317 13:28-0400Respiratory rate16 /minCaleben Hemmer PA Work Phone: NOChildren[facility] NorthlandJtntnojsbb60-29-0617 13:28-6940ErP8% (BldA) [Mass fraction]99 %Francisca Rojas PA Work Phone: noChildren[facility] NorthlandZcrfscclzr03-26-1576 13:28-0400Systolic blood nctszevo268 mm[Hg]Francisca Rojas PA Work Phone: [facility] CenterLvrsluyxkn95-51-6990 14:35-0400Body temperature 97.59 [degF]Ma Sand Work Phone: [facility]06-02-2025 14:35-0400Diastolic blood udmtlcji40 mm[Hg]Ma Sand Work Phone: [facility]06-02-2025 14:35-0400Heart rate87 /min Ma Sand Work Phone: [facility]06-02-2025 14:35-0400Respiratory rate 16 /minMa Sand Work Phone: [facility]06-02-2025 14:35-0053PjS5% (BldA) [Mass fraction]95 %Ma Sand Work Phone: [facility]06-02-2025 14:35-0400Systolic blood uwvowzcq957 mm[Hg]Ma Sand Work Phone: [facility]05-05-2025 14:12-0400Body temperature 98.01 [degF]Ma Sand Work Phone: [facility]05-05-2025 14:12-0400Diastolic blood cqyxxtci57 mm[Hg]Ma Sand Work Phone: [facility]05-05-2025 14:12-0400Heart rate90 /min Ma Sand Work Phone: [facility]05-05-2025 14:12-0400Respiratory rate 16 /minMa Sand Work Phone: [facility]05-05-2025 14:12-7764CuO8% (BldA) [Mass fraction]97 %Ma Sand Work Phone: [facility]05-05-2025 14:12-0400Systolic blood aaewfwpk190 mm[Hg]Ma Sand Work Phone: [facility]04-14-2025 10:29-0400Body sirbfa936.9 Wendy Boggs MD Work Phone: [facility] CenterDovgujvjjq07-70-1039 10:29-0400Body mass index (BMI) [Ratio]24.37 kg/f8VkpkcNurys Boggs MD Work Phone: [facility] CenterUuptnhkndm61-45-0865 10:29-0400Body .51 kgNurys Boggs MD Work Phone: [facility] CenterPmuzecwylq70-65-0169 10:29-0400Diastolic blood xjqoolps18 mm[Hg]Nurys Boggs MD Work Phone: [place] [address]Wkvhhtagfx58-30-0366 10:29-0400Heart rate88 /min Nurys Boggs MD Work Phone: [facility] CenterNcvzelvyhz85-09-7604 10:291819CzY3% (BldA) [Mass fraction]97 %Nurys Boggs MD Work Phone: [facility] CenterPafyfbpeyi61-04-5133 10:29-0400Systolic blood mm[Hg]Nurys Boggs MD Work Phone: [facility] CenterTqokcmlhat68-29-7203 14:03-0400Body temperature 97.9 [degF]Ma Sand Work Phone: [facility]04-07-2025 14:03-0400Diastolic blood ghbmxluc76 mm[Hg]Ma Sand Work Phone: [facility]04-07-2025 14:03-0400Heart rate81 /min Ma Sand Work Phone: [facility]04-07-2025 14:03-0400Respiratory rate 16 /minMa Sand Work Phone: [place] [address]-07-2025 14:03-1640QxN0% (BldA) [Mass fraction]98 %Ma Sand Work Phone: [facility]04-07-2025 14:03-0400Systolic blood eonsggbv355 mm[Hg]Ma Sand Work Phone: [facility]03-10-2025 14:26-0400Body temperature 97.5 [degF]Ma Sand Work Phone: [facility]03-10-2025 14:26-0400Diastolic blood hprypvdy64 mm[Hg]Ma Sand Work Phone: [facility]03-10-2025 14:26-0400Heart rate87 /min Ma Sand Work Phone: [facility]03-10-2025 14:-0400Respiratory rate 16 /minWv Sand Work Phone: [facility]03-10-2025 14:26-2273ReB7% (BldA) [Mass fraction]97 %Ma Sand Work Phone: [facility]03-10-2025 14:0400Systolic blood evwsmmim987 mm[Hg]Rafa Sand Work Phone: [facility]02-24-2025 13:04-0500Body ucdvsg634.4 Wendy Boggs MD Work Phone: [facility]02-24-2025 13:04-0500 Body mass index (BMI) [Ratio]24.4 kg/a0SgvvhNurys Boggs MD Work Phone: [facility]02-24-2025 13:04-0500 Body jeiqed31.69 kgNurys Boggs MD Work Phone: [facility]02-24-2025 13:04-0500 Diastolic blood pluqidys04 mm[Hg]Nurys Boggs MD Work Phone: [facility]02-24-2025 13:04-0500 Heart rate79 /minNurys Boggs MD Work Phone: [facility]02-24-2025 13:04-0500 Systolic blood mm[Hg]Nurys Boggs MD Work Phone: [facility]02-18-2025 13:59-0500 Body .39 [degF]Ma Sand Work Phone: [facility]02-18-2025 13:59-0500Diastolic blood aiytbhda29 mm[Hg]Ma Sand Work Phone: [facility]02-18-2025 13:59-0500Heart rate84 /min Ma Sand Work Phone: [facility]02-18-2025 13:59-0500Respiratory rate 16 /minRafa Sand Work Phone: [facility]02-18-2025 13:59-6838WfU7% (BldA) [Mass fraction]95 %Ma Sand Work Phone: [facility]02-18-2025 13:59-0500Systolic blood hesfhrad982 mm[Hg]Ma Sand Work Phone: [facility]01-23-2025 14:51-0500Body butxdl346.9 Wendy Boggs MD Work Phone: [facility] CenterFvnuitjsoq21-32-4377 14:51-0500Body mass index (BMI) [Ratio]24 kg/f7ZiyykNurys Boggs MD Work Phone: [facility] CenterXzogfukgfk99-14-3231 14:51-0500Body oxztli89.61 kgNurys Boggs MD Work Phone: [facility] CenterDvhacplgil98-22-6557 14:51-0500Diastolic blood mm[Hg]Nurys Boggs MD Work Phone: [facility] CenterWsklxcvvhk82-46-2913 14:51-0500Heart rate81 /min Nurys Boggs MD Work Phone: [facility] CenterLmwlavizyz69-47-2567 14:51-2675HhM1% (BldA) [Mass fraction]92 %Nurys Boggs MD Work Phone: [facility] CenterTafuaqkbai07-53-7607 14:51-0500Systolic blood mm[Hg]Nurys Boggs MD Work Phone: [facility] CenterMkipptjpla91-16-5454 13:47-0500Body .4 cmVmichael Lusnford MD Work Phone: [facility]01-13-2025 13:47-0500Body mass index (BMI) [Ratio]25.49 kg/e9EspplMaikel Lunsford MD Work Phone: [facility]01-13-2025 13:47-0500Body temperature 97.3 [degF]Maikel Lunsford MD Work Phone: [facility]01-13-2025 13:47-0500Body ebuzcy76.2 kgMaikel Lunsford MD Work Phone: [facility]01-13-2025 13:47-0500Diastolic blood evdontce63 mm[Hg]Maikel Lunsford MD Work Phone: [facility]01-13-2025 13:47-0500Heart rate82 /min Maikel Lunsford MD Work Phone: [facility]01-13-2025 13:47-0500Respiratory rate 16 /minMaikel Lunsford MD Work Phone: [facility]01-13-2025 13:47-9716OqA6% (BldA) [Mass fraction]98 %Maikel Lunsford MD Work Phone: [facility]01-13-2025 13:47-0500Systolic blood dasqnrvy478 mm[Hg]Maikel Lunsford MD Work Phone: [facility]01-13-2025 11:15-0500Body zvjizg385.9 Wendy Boggs MD Work Phone: [facility] CenterDfzkgwrkwp34-35-2808 11:15-0500Body mass index (BMI) [Ratio]24.56 kg/a4ItvfqNurys Boggs MD Work Phone: [facility] CenterUrsiczpaqi89-35-5330 11:15-0500Body ykstof19.97 kgNurys Boggs MD Work Phone: [facility] CenterZojohiujqe68-65-6566 11:15-0500Diastolic blood excsoicz51 mm[Hg]Nurys Boggs MD Work Phone: [facility] CenterKkjauknegj60-39-7956 11:15-0500Heart rate91 /min Nurys Boggs MD Work Phone: [facility] CenterIbiivtydwi30-22-6205 11:15-6504YgU9% (BldA) [Mass fraction]99 %Nurys Boggs MD Work Phone: [facility] CenterIwnxxtgjin95-49-2519 11:15-0500Systolic blood vmabwooy66 mm[Hg]Nurys Boggs MD Work Phone: [facility] CenterVjkasfpxwi37-49-8476 15:14-0500Body temperature 97.59 [degF]Ma Sand Work Phone: [facility]12-17-2024 15:14-0500Diastolic blood beaskaqt97 mm[Hg]Ma Sand Work Phone: [facility]12-17-2024 15:14-0500Heart rate90 /min Ma Sand Work Phone: [facility]12-17-2024 15:14-0500Respiratory rate 16 /minMa Sand Work Phone: [facility]12-17-2024 15:14-3111KxK6% (BldA) [Mass fraction]97 %Ma Sand Work Phone: [facility]12-17-2024 15:14-0500Systolic blood mm[Hg]Ma Sand Work Phone: [facility]12-16-2024 13:41-0500Body .9 cmRjumana Boggs MD Work Phone: [facility] CenterIfouwlgvvy50-69-6636 13:41-0500Body mass index (BMI) [Ratio]23.62 kg/d9BmiycNurys Boggs MD Work Phone: 1(419)483-[address] [place], [place] [address]Qkgymlbnon26-62-1603 13:41-0500Body ahunjb88.7 kg Nurys Boggs MD Work Phone: [facility] CenterEitnyenmgt28-93-0257 13:41-0500Diastolic blood suilddue82 mm[Hg]Nurys Boggs MD Work Phone: [facility] CenterOzahfcvjlp51-56-9847 13:41-0500Heart rate80 /min Nurys Boggs MD Work Phone: [facility] CenterYqxstzmkjy57-06-0309 13:41-7515GqS5% (BldA) [Mass fraction]97 %Nurys Boggs MD Work Phone: [facility] CenterMndejiwgbu23-89-1183 13:41-0500Systolic blood pbgwtsed918 mm[Hg]Nurys Boggs MD Work Phone: [facility] CenterHzkopdtgee55-87-1570 13:19-0500Body uzzulb685.4 cmRjumana Boggs MD Work Phone: [facility]12-03-2024 13:19-0500 Body mass index (BMI) [Ratio]25 kg/t1PusreNurys Boggs MD Work Phone: [facility]12-03-2024 13:19-0500 Body kvhqwa65 kgNurys Boggs MD Work Phone: [facility]11-18-2024 14:15-0500 Body dvwzxgpgaig52.59 [degF]Ma Sand Work Phone: [facility]11-18-2024 14:15-0500Diastolic blood offqmsaw07 mm[Hg]Ma Sand Work Phone: [facility]11-18-2024 14:15-0500Heart rate86 /min Ma Sand Work Phone: [facility]11-18-2024 14:15-0500Respiratory rate 18 /minMa Sand Work Phone: [facility]11-18-2024 14:15-3413IlW4% (BldA) [Mass fraction]97 %Ma Sand Work Phone: [facility]11-18-2024 14:15-0500Systolic blood pfetaals387 mm[Hg]Ma Sand Work Phone: [facility]11-12-2024 14:57-0500Body hpqnfu092.9 Wendy Boggs MD Work Phone: [facility] CenterLgkhxtqghm88-27-6429 14:57-0500Body mass index (BMI) [Ratio]23.24 kg/b7ZtgdhNurys Boggs MD Work Phone: [facility] CenterDqxgglfzpf78-37-1803 14:57-0500Body davqpo15.79 kgNurys Boggs MD Work Phone: [place] [address]Sxqkgyjoux83-60-5256 14:57-0500Diastolic blood ppgopllr44 mm[Hg]Nurys Boggs MD Work Phone: 1(180)104-[address] [place], [place] [address]Bakbunamvg26-22-2829 14:57-0500Heart rate80 /min Nurys Boggs MD Work Phone: 1(829)854-[address] [place], [place] [address]Ihcktxfrxr55-25-7155 14:57-4133WqR3% (BldA) [Mass fraction]96 %uNrys Boggs MD Work Phone: [facility] CenterGqtsbvmlgp45-94-1278 14:57-0500Systolic blood oraiqryf15 mm[Hg]Nurys Boggs MD Work Phone: [facility] CenterJdgsznjrft38-94-8915 14:07-0400Body temperature 97.3 [degF]Ma Sand Work Phone: [facility]10-21-2024 14:07-0400Diastolic blood uzxyxakq66 mm[Hg]Ma Sand Work Phone: [facility]10-21-2024 14:07-0400Heart rate94 /min Ma Sand Work Phone: [facility]10-21-2024 14:07-0400Respiratory rate 18 /minMa Sand Work Phone: [facility]10-21-2024 14:07-8545KgD1% (BldA) [Mass fraction]93 %Ma Sand Work Phone: [facility]10-21-2024 14:07-0400Systolic blood etvqjume14 mm[Hg]Ma Sand Work Phone: [facility]10-15-2024 13:08-0400Body xglesx882.4 [facility] 13:08-0400Body mass index (BMI) [Ratio]24.4 kg/j4YjqttvjvyCherrington Hospital10-15-2024 13:08-0400Body msmrol81.69 kgCher[facility] Hospital09-23-2024 13:52-0400Body szlnraybjwx73.3 [degF]Rafa Sand Work Phone: [facility]09-23-2024 13:52-0400Diastolic blood niyojiej01 mm[Hg]Ma Sand Work Phone: [facility]09-23-2024 13:52-0400Heart rate71 /min Ma Sand Work Phone: [facility]09-23-2024 13:52-0400Respiratory rate 16 /minWv Sand Work Phone: [facility]09-23-2024 13:52-7211XrO6% (BldA) [Mass fraction]98 %Ma Sand Work Phone: [facility]09-23-2024 13:52-0400Systolic blood yfybcqdr593 mm[Hg]Ma Sand Work Phone: [facility]09-17-2024 15:37-0400Body pntley984.9 cmFrancisca Rojas PA Work Phone: [facility]Children[facility]landWadrudvyse25-41-5549 15:37-0400Body mass index (BMI) [Ratio]24.03 kg/e1BtgqqFrancisca Rojas PA Work Phone: noChildren[facility] NorthlandAohdkimwvr97-78-1573 15:37-0400Body ksabpq59.7 kg Francisca Rojas PA Work Phone: noChildren[facility] NorthlandGeesowenwz52-17-7896 15:37-0400Diastolic blood zupbcwqa01 mm[Hg]Francisca Vargasmer PA Work Phone: [facility] CenterSvgrkyhzxf54-36-4025 15:37-0400Heart rate71 /min Francisca Hemmer PA Work Phone: [facility]Children[facility] NorthlandJkimrwmlhe94-84-7082 15:37-0400Respiratory rate16 /minFrancisca Hemmer PA Work Phone: [facility]Children[facility] NorthlandEqqfbvafum90-17-2062 15:37-8061NkA4% (BldA) [Mass fraction]95 %Francisca Hemmer PA Work Phone: [facility] CenterTrrqklfmes94-10-2233 15:37-0400Systolic blood nqlqownw265 mm[Hg]Francisca Vargasmer PA Work Phone: [facility] CenterVgnjvhpibn28-75-1837 10:54-0400Body ebrwdf932.4 cmC[facility]09-11-2024 10:54-0400Body mass index (BMI) [Ratio]24 kg/r1JvrrdlyatCherrington Hospital09-11-2024 10:54-0400Body weight 55.79 kgCherrington Hospital08-26-2024 14:16-0400Body mass index (BMI) [Ratio]24.37 kg/m2Ma Sand Work Phone: [facility]08-26-2024 14:16-0400Body temperature 97.7 [degF]Ma Sand Work Phone: [facility]08-26-2024 14:16-0400Body nzmvic54.6 kgMa Sand Work Phone: [facility]08-26-2024 14:16-0400Diastolic blood qctetseq34 mm[Hg]Ma Sand Work Phone: [facility]08-26-2024 14:16-0400Heart rate91 /min Ma Sand Work Phone: [facility]08-26-2024 14:16-0400Respiratory rate 16 /minMa Sand Work Phone: [facility]08-26-2024 14:16-0348AdO1% (BldA) [Mass fraction]95 %Rafa Kennedy Work Phone: [facility]08-26-2024 14:16-0400Systolic blood fllyvnrr676 mm[Hg]Rafa Kennedy Work Phone: [facility]08-12-2024 12:30-0400Blood Pressure LocationMohamad Angusjalil [phone]-NzzogMercy Health [facility] Hospital08-12-2024 12:30-0400Diastolic blood qsfckkop97 mm[Hg]Rafaelsugar Angusjalil [phone]-SgmljMercy Health Urbana Hospital08-12-2024 12:30-0400Heart rate67 /minMohamad Mouchli [phone]-SmjqnMercy Health Urbana Hospital08-12-2024 12:30-0400Respiratory rate16 /minMohamad Mouchli [phone]-FiyhfMercy Health Urbana Hospital08-12-2024 12:30-0400Systolic blood pixpxqta052 mm[Hg]Rafaelsugar Jamesmoriah [phone]-DpjuuMercy Health Urbana Hospital07-29-2024 14:22-0400Body .4 Gogo Lunsford MD Work Phone: [facility]07-29-2024 14:22-0400Body mass index (BMI) [Ratio]23.94 kg/i4EracpMaikel Lunsford MD Work Phone: [facility]07-29-2024 14:22-0400Body temperature 97.2 [degF]Maikel Lunsford MD Work Phone: [facility]07-29-2024 14:22-0400Body .6 kgMaikel Lunsford MD Work Phone: [facility]07-29-2024 14:22-0400Diastolic blood qrbfgypa08 mm[Hg]Maikel Lunsford MD Work Phone: [facility]07-29-2024 14:22-0400Heart rate74 /min Maikel Lunsford MD Work Phone: [facility]07-29-2024 14:22-0400Respiratory rate 16 /minMaikel Lunsford MD Work Phone: [facility]07-29-2024 14:22-3959VzI4% (BldA) [Mass fraction]97 %Maikel Lunsford MD Work Phone: [facility]07-29-2024 14:22-0400Systolic blood pmqyhapu123 mm[Hg]Maikel Lunsford MD Work Phone: [facility]07-18-2024 14:49-0400Body vhhlzy751.4 cmC[facility] Hospital07-18-2024 14:49-0400Body mass index (BMI) [Ratio]23.4 kg/l3LvmmvapklCherrington Hospital07-18-2024 14:49-0400Body cffjeq09.43 kgC[facility] Hospital07-18-2024 14:49-0400Diastolic blood mm[Hg][facility]07-18-2024 14:49-0400 Heart rate74 /minCherrington Hospital07-18-2024 14:49-0400Systolic blood ujbosddo686 mm[Hg][facility]06-06-2024 14:39-0400 Body iogbifjidzd60.81 [degF]Ma Sand Work Phone: [facility]06-06-2024 14:39-0400Diastolic blood aqxiraop95 mm[Hg]Ma Sand Work Phone: [facility]06-06-2024 14:39-0400Heart rate92 /min Ma Sand Work Phone: [facility]06-06-2024 14:39-0400Respiratory rate 16 /minMa Sand Work Phone: [facility]06-06-2024 14:39-7856BiE9% (BldA) [Mass fraction]96 %Ma Sand Work Phone: [facility]06-06-2024 14:39-0400Systolic blood nzugvcrj583 mm[Hg]Ma Sand Work Phone: [facility]05-09-2024 14:29-0400Body temperature 97 [degF]Ma Sand Work Phone: [facility]05-09-2024 14:29-0400Diastolic blood hdkeefzh14 mm[Hg]Ma Sand Work Phone: [facility]05-09-2024 14:29-0400Heart rate77 /min Ma Sand Work Phone: [facility]05-09-2024 14:29-0400Respiratory rate 18 /minMa Sand Work Phone: [facility]05-09-2024 14:29-9519MpY0% (BldA) [Mass fraction]98 %Ma Sand Work Phone: [facility]05-09-2024 14:29-0400Systolic blood eajdzhgb065 mm[Hg]Ma Sand Work Phone: [facility]04-11-2024 14:50-0400Body temperature 97.39 [degF]Ma Sand Work Phone: [facility]04-11-2024 14:50-0400Diastolic blood zwvcuepm88 mm[Hg]Ma Sand Work Phone: [place] [address]-11-2024 14:50-0400Heart rate82 /min Ma Sand Work Phone: [facility]04-11-2024 14:50-0400Respiratory rate 18 /minMa Sand Work Phone: [place] [address]-11-2024 14:50-7969FaI2% (BldA) [Mass fraction]97 %Ma Sand Work Phone: [place] [address]-11-2024 14:50-0400Systolic blood zdgyfrnu067 mm[Hg]Ma Sand Work Phone: [facility]03-14-2024 14:10-0400Body temperature 97.11 [degF]Ma Sand Work Phone: [facility]03-14-2024 14:10-0400Diastolic blood mm[Hg]Ma Sand Work Phone: [facility]03-14-2024 14:10-0400Heart rate79 /min Ma Sand Work Phone: [facility]03-14-2024 14:10-0400Respiratory rate 18 /minMa Sand Work Phone: [facility]03-14-2024 14:10-4048IkM8% (BldA) [Mass fraction]97 %Ma Sand Work Phone: [facility]03-14-2024 14:10-0400Systolic blood mm[Hg]Ma Sand Work Phone: [facility]02-16-2024 13:06-0500Blood Pressure LocationBeth Manfred [phone]-OevbvMercy Health [facility]rbana Hospital02-16-2024 13:06-0500Body lqarrnybizs41.98 [degF]Rosa Herediametz [phone]-IoqptMercy Health Urbana Hospital02-16-2024 13:06-0500Diastolic blood qlyjiarj97 mm[Hg]Rosa Shearer 297-2903Pkhoxv-MqpilMercy Health [facility]rbana Hospital02-16-2024 13:06-0500Heart rate79 /minNoemickey Manfred [phone]-PtmrgMercy Health Urbana Hospital02-16-2024 13:06-0500Systolic blood efyojggv745 mm[Hg]Rosa Shearer [phone]-TbnnnMercy Health Urbana Hospital02-15-2024 13:47-0500Body .4 cmMa Sand Work Phone: [facility]02-15-2024 13:47-0500Body temperature 97.7 [degF]Rafa Sand Work Phone: [facility]02-15-2024 13:47-0500Body edvzvk21.98 kgMa Sand Work Phone: [facility]02-15-2024 13:47-0500Diastolic blood efairzsg78 mm[Hg]Ma Sand Work Phone: [facility]02-15-2024 13:47-0500Heart rate89 /min Ma Sand Work Phone: [place] [address]-15-2024 13:47-0500Respiratory rate 16 /minMa Sand Work Phone: [facility]02-15-2024 13:47-6598XjM1% (BldA) [Mass fraction]98 %Rafa Sand Work Phone: [facility]02-15-2024 13:47-0500Systolic blood vwlsxajl177 mm[Hg]Rafa Sand Work Phone: [facility]12-06-2023 17:04-0500Diastolic blood qtgstetp12 mm[Hg]MD Nurys Boggs Work Phone: [facility]12-06-2023 17:04-0500 Heart rate78 /minMD Nurys Boggs Work Phone: [facility]12-06-2023 17:04-0500 Respiratory rate18 /minMD Nurys Boggs Work Phone: [facility]12-06-2023 17:04-0500 SaO2% (BldA) [Mass fraction]98 %MD Nurys Boggs Work Phone: [facility]12-06-2023 17:04-0500 Systolic blood rgaseccu933 mm[Hg]MD Nurys Boggs Work Phone: [facility]12-06-2023 14:46-0500 Body ywkpuu950.4 cmMD Nurys Boggs Work Phone: [facility]12-06-2023 14:46-0500 Body xrgyvsrcapt86 [degF]MD Nurys Boggs Work Phone: [facility]12-06-2023 14:46-0500 Body .43 kgMD Nolakenney Ambrose Work Phone: [facility]12-06-2023 14:20-0500 Diastolic blood kzxofyyy63 mm[Hg]Ma Marcia Work Phone: [facility]12-06-2023 14:20-0500Heart wgrc513 /minMa Sand Work Phone: [facility]12-06-2023 14:20-0500Systolic blood pxwsueoq20 mm[Hg]Ma Sand Work Phone: [facility]12-06-2023 14:00-0500Body temperature 97.11 [degF]Ma Sand Work Phone: [facility]12-01-2023 13:36-0500Blood Pressure LocationBeth Manfred [phone]-WeaslMercy Health Urbana Hospital12-01-2023 13:36-0500Body eikswcuswai34.88 [degF]Rosa Shearer 530-2127Hoqkwn-XnfghMercy Health Urbana Hospital12-01-2023 13:36-0500Diastolic blood tdvmusju81 mm[Hg]Rosa Shearer [phone]-BbjqmMercy Health Urbana Hospital12-01-2023 13:36-0500Heart rate74 /minRosa Shearer [phone]-WdqkbMercy Health [facility]ana Hospital12-01-2023 13:36-0500Systolic blood ovjuwdal270 mm[Hg]Rosa Shearer 217-5694Kiwmdm-JmdyeMercy Health Urbana Hospital11-08-2023 13:57-0500Body cslero080.4 cmMa Sand Work Phone: [place] [address]-08-2023 13:57-0500Body temperature 97.9 [degF]Ma Sand Work Phone: [place] [address]-08-2023 13:57-0500Body ecsnop86.98 kgMa Sand Work Phone: [place] [address]-08-2023 13:57-0500Diastolic blood oruehfqv95 mm[Hg]Ma Sand Work Phone: [place] [address]-08-2023 13:57-0500Heart rate75 /min Ma Sand Work Phone: [place] [address]-08-2023 13:57-0500Respiratory rate 16 /minMa Sand Work Phone: [place] [address]-08-2023 13:57-3930VfL4% (BldA) [Mass fraction]98 %Ma Sand Work Phone: [place] [address]-08-2023 13:57-0500Systolic blood srvcjady986 mm[Hg]Ma Sand Work Phone: [facility]11-01-2023 12:45-0400Diastolic blood ioowvxnv32 mm[Hg]Rosa Shearer [phone]-QjtmpMercy Health Urbana Hospital11-01-2023 12:45-0400Mean blood ervhqanp271 mm[Hg]Rosa Shearer [phone]-NekqsMercy Health Urbana Hospital11-01-2023 12:45-0400Systolic blood xmupxhpn360 mm[Hg]Rosa Shearer 333-3368Kifcyc-PhnfpMercy Health Urbana Hospital11-01-2023 12:36-0400Blood Pressure LocationRosa Shearer 248-0391Grursj-VrcgtMercy Health Urbana Hospital11-01-2023 12:36-0400Body krvkejdlmny49.7 [degF]Rosa Shearer 802-4336Ahdnci-YxfggMercy Health Urbana Hospital11-01-2023 12:36-0400Diastolic blood sxhuanws65 mm[Hg]Rosa Shearer 465-1968Kymzwl-PlrthMercy Health [facility]ana Hospital11-01-2023 12:36-0400Heart rate70 /minRosa Shearer 576-8319Ekutls-ManaiMercy Health Urbana Hospital11-01-2023 12:36-0400Systolic blood vbygcqsz380 mm[Hg]Rosa Shearer 402-1161Zcogfq-VuldnMercy Health Urbana Hospital10-11-2023 14:25-0400Body miipct175.4 Gogo Lunsford MD Work Phone: [facility]10-11-2023 14:25-0400Body temperature 97 [degF]Maikel Lunsford MD Work Phone: [facility]10-11-2023 14:25-0400Body .34 kgMaikel Lunsford MD Work Phone: [facility]10-11-2023 14:25-0400Diastolic blood hrxntycw17 mm[Hg]Maikel Lunsford MD Work Phone: [facility]10-11-2023 14:25-0400Heart rate78 /min Maikel Lunsford MD Work Phone: [facility]10-11-2023 14:25-0400Respiratory rate 16 /minMaikel Lunsford MD Work Phone: [facility]10-11-2023 14:25-4774MfP1% (BldA) [Mass fraction]97 %Maikel Lunsford MD Work Phone: [facility]10-11-2023 14:25-0400Systolic blood mm[Hg]Maikel Lunsford MD Work Phone: [facility]08-11-2023 10:29-0400Body temperature 97.7 [degF]Ma Sand Work Phone: [place] [address]-11-2023 10:29-0400Diastolic blood mzstynbc78 mm[Hg]Ma Sand Work Phone: [facility]08-11-2023 10:29-0400Heart rate79 /min Ma Sand Work Phone: [place] [address]-11-2023 10:29-0400Respiratory rate 16 /minMa Sand Work Phone: [place] [address]-11-2023 10:29-3102HlE2% (BldA) [Mass fraction]99 %Ma Sand Work Phone: [place] [address]-11-2023 10:29-0400Systolic blood mm[Hg]Ma Sand Work Phone: [facility]08-04-2023 14:21-0400Body temperature 97.81 [degF]Ma Sand Work Phone: [facility]08-04-2023 14:21-0400Body pnzjqu56.89 kgMa Sand Work Phone: [place] [address]-04-2023 14:21-0400Diastolic blood crtmcyuf82 mm[Hg]Ma Sand Work Phone: [facility]08-04-2023 14:21-0400Heart rate88 /min Ma Sand Work Phone: [facility]08-04-2023 14:21-0400Respiratory rate 16 /minMa Sand Work Phone: [place] [address]-04-2023 14:21-4600BuA7% (BldA) [Mass fraction]94 %Ma Sand Work Phone: [facility]08-04-2023 14:21-0400Systolic blood tuhnfxvk397 mm[Hg]Ma Sand Work Phone: [facility]08-01-2023 12:45-0400Blood Pressure LocationBeJohn [facility]. [facility] [phone]-QdmrfMercy Health Urbana Hospital08-01-2023 12:45-0400Body mkxtgmxzicr26.98 [degF]Rosa Shearer [phone]-XqsddMercy Health Urbana Hospital08-01-2023 12:45-0400Diastolic blood odnndhpb91 mm[Hg]Rosa Shearer 512-0558Kycgyh-ZxfppMercy Health Urbana Hospital08-01-2023 12:45-0400Heart rate74 /minNoeth Manfred 396-1145Sympfi-UffczMercy Health [facility]rbana Hospital08-01-2023 12:45-0400Systolic blood sgvkhbbu805 mm[Hg]Rosa Shearer 192-3527Expwdo-DbfpxMercy Health [facility]ana Hospital07-28-2023 14:31-0400Body zzowxsjhcpn86.5 [degF]Ma Sand Work Phone: [facility]07-28-2023 14:31-0400Diastolic blood gwxovvll58 mm[Hg]Ma Sand Work Phone: [facility]07-28-2023 14:31-0400Heart rate82 /min Ma Sand Work Phone: [facility]07-28-2023 14:31-0400Respiratory rate 16 /minMa Sand Work Phone: [facility]07-28-2023 14:31-3662WfN9% (BldA) [Mass fraction]95 %Ma Sand Work Phone: [facility]07-28-2023 14:31-0400Systolic blood mm[Hg]Ma Sand Work Phone: [facility]07-19-2023 11:13-0400Body .4 Gogo Lunsford MD Work Phone: [facility]07-19-2023 11:13-0400Body temperature 97.39 [degF]Maikel Lunsford MD Work Phone: [facility]07-19-2023 11:13-0400Body .8 kgMaikel Lunsford MD Work Phone: [facility]07-19-2023 11:13-0400Diastolic blood jigjikne23 mm[Hg]Maikel Lunsford MD Work Phone: [facility]07-19-2023 11:13-0400Heart rate73 /min Maikel Lunsford MD Work Phone: [facility]07-19-2023 11:13-0400Respiratory rate 16 /minMaikel Lunsford MD Work Phone: [facility]07-19-2023 11:13-5950IxX0% (BldA) [Mass fraction]98 %Maikel Lunsford MD Work Phone: [facility]07-19-2023 11:13-0400Systolic blood hxywznyy394 mm[Hg]Maikel Lunsford MD Work Phone: [facility]06-30-2023 12:14-0400Blood Pressure LocationRosa Shearer [phone]-CouvcMercy Health Urbana Hospital06-30-2023 12:14-0400Body musqjfjwpif83.8 [degF]Rosa Shearer [phone]-CaczwMercy Health Urbana Hospital06-30-2023 12:14-0400Diastolic blood qaykrsjt95 mm[Hg]Rosa Shearer 448-7868Szuhjo-EaokbMercy Health Urbana Hospital06-30-2023 12:14-0400Heart rate75 /minRosa Shearer 305-5289Uodzgi-JwpezMercy Health Urbana Hospital06-30-2023 12:14-0400Systolic blood gfeyokax981 mm[Hg]Rosa Shearer [phone]-BpabwMercy Health Urbana Hospital06-02-2023 11:40-0400Body hyotnw103.4 cmAclaudia Mcghee Other [employer] Other 06-02-2023 11:40-0400Body mass index (BMI) [Ratio] 23.04 kg/b0Ctbmy Mcghee Other [employer] Other 06-02-2023 11:40-0400Body mnasjb41.52 kgYvonne Mcghee Other [facility] [employer] Other 06-02-2023 11:40-0400Diastolic blood ncwkwide86 mm[Hg] Yvonne Mcghee Other [employer] Other 06-02-2023 11:40-0400Respiratory rate18 /minYvonne Mcghee Other [place] [employer] Other 06-02-2023 11:40-2873LeP7% (BldA) [Mass fraction]98 % Yvonne Mcghee Other [employer] Other 06-02-2023 11:40-0400Systolic blood glsttomt520 mm[Hg] Yvonne Mcghee Other [facility]365[facility] [employer] Other [id number] 12:59-0400Blood Pressure LocationRosa Shearer 363-6051Wckdpm-RgrcsMercy Health Urbana Hospital03-30-2023 12:59-0400Body rwytjunxpwg52.52 [degF]Rosa Shearer 439-7872Yzqitl-QnyoeMercy Health Urbana Hospital03-30-2023 12:59-0400Diastolic blood vufzekkn69 mm[Hg]Rosa Shearer 476-7917Nbdfps-FdnrxMercy Health [facility]ana Hospital03-30-2023 12:59-0400Heart rate72 /minRosa Shearer 311-0653Htncnq-UwjpnMercy Health [facility]ana Hospital03-30-2023 12:59-0400Systolic blood jfswqefg395 mm[Hg]Rosa Manfred 285-3542Podqjb-MwfkrMercy Health [facility] Hospital02-15-2023 10:42-0500Blood Pressure LocationMaher SALAM 121-0469Ztjqfd-IbiftMercy Health [facility]ana Hospital02-15-2023 10:42-0500Diastolic blood kkuiiqha34 mm[Hg]Kimberley ACKERMANAM 536-9017Tddrdh-QkdglMercy Health Urbana Hospital02-15-2023 10:42-0500Heart rate74 /minMaher SALAM [phone]-TcipaMercy Health [facility]ana Hospital02-15-2023 10:42-0500Respiratory rate16 /minMaher SALAM 172-4566Qlehhp-HbsucMercy Health [facility]ana Hospital02-15-2023 10:42-3560YpX5% (BldA) [Mass fraction]97 %Kimberley SALAM [phone]-AlrsqMercy Health [facility] Hospital02-15-2023 10:42-0500Systolic blood sewkhuka661 mm[Hg]Kimberley ACKERMANAM [phone]-NjqjeMercy Health Urbana Hospital10-25-2022 12:52-0400Blood Pressure LocationRosa Shearer [phone]-LqrcrMercy Health [facility]rbana Hospital10-25-2022 12:52-0400Body nqtrnrsrtaw09.34 [degF]Rosajessica Shearer [phone]-DgqrpMercy Health Urb[facility]10-25-2022 12:52-0400Diastolic blood natrylig29 mm[Hg]Rosa Shearer [phone]-AcookMercy Health [facility]10-25-2022 12:52-0400Heart rate86 /minRosa Herediametz [phone]-DihckOhiohealth [facility] Hdsmcd44-13-5662 12:52-0400Systolic blood fzygsygm923 mm[Hg]Rosa Herediametz [phone]-HzahaOhiohealth [facility] Zwcxdw06-57-1812 12:21-0400Blood Pressure LocationMaher SALAM [phone]-HcuucOhiohealth [facility] [id number] 12:21-0400Diastolic blood xomduggt82 mm[Hg] Chu SALAM [phone]-ZtfswOhiohealth [facility] [id number] 12:21-0400Heart rate62 /minMaher SALAM [phone]-HkrpfOhiohealth [facility] [id number] 12:21-0400Respiratory rate16 /minMaher SALAM [phone]-HjoefOhiohealth [facility] 08-23-2022 12:21-0400Systolic blood kzxudict141 mm[Hg] Chu SALAM [phone]-ZxylgOhiohealth [facility] 06-02-2022 13:42-0400Diastolic blood gpmrqabi86 mm[Hg] Chu SALAM [phone]-IdpgvOhiohealth [facility] 06-02-2022 13:42-0400Heart rate81 /minMaher SALAM [phone]-IjlwsOhiohealth [facility] 06-02-2022 13:42-0400Systolic blood duvdqfdc199 mm[Hg] Chu SALAM [phone]-MoyqjOhiohealth [facility] Encounters Encounter DateEncounter TypeCare ProviderFacilityStart: 06-17-2025 End: 62-80-6445yxcilxsbtuZZDAO ABHYANKARFacility:[facility] Ohiotart: 05-24-2025 End: 41-79-8434zkjnofkbyhMEZRV ABHYANKARFacility:[facility]iotart: 04-20-2025 End: 24-72-4883Rnwxdij evaluation of patient and reportMa Nurse Ervin Sand Work Phone: Hematology/OncologyComment on above:Anemia, unspecified type (Primary Dx); 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 deficiencyStart: 04-20-2025 End: 89-30-7630dwjfdnanlfKSAOW ABHYANKARFacility:[facility]iotart: 04-19-2025 End: 29-44-2060jipbxvkygfXndiz M Alda MD Work Phone: [facility] Work Phone: Start: 04-19-2025 End: 25-34-1873Nbpabbl encounter Kyrie Shaikh [facility] Work Phone: Start: 04-05-2025 End: 57-11-1932Hyhnhylco Result EncounterGeneric External Data ProviderNOMS External Department UnsolicitedStart: 04-05-2025 End: 72-80-8227Absbinjqc Result EncounterGeneric External Data ProviderNOMS External Department UnsolicitedStart: 03-22-2025 End: 94-34-7999Palxvly evaluation of patient and reportMa Nurse Ervin Sand Work Phone: Hematology/OncologyComment on above:Anemia, unspecified type (Primary Dx); 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 deficiencyStart: 03-22-2025 End: 45-99-5143qhnnqleotcUHYNH ABHYANKARFacility:[facility] [place]iotart: 02-22-2025 End: 72-71-2472Shfatkq evaluation of patient and reportMa Nurse Ervin Sand Work Phone: Hematology/OncologyComment on above:Anemia, unspecified type (Primary Dx); 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 deficiencyStart: 02-22-2025 End: 27-78-1847Pfpnqv outpatient visit 25 minutesSamcrow Henry VAMSHI Work Phone: Hematology/OncologyComment on above:Chronic fatigue (Primary Dx); Anemia, unspecified typeStart: 02-22-2025 End: 48-99-5967onmpfksluqUXSLR ABHYANKARFacility:[facility] [place]iotart: 02-22-2025 End: 99-75-5691Frswnlmqs Result EncounterGeneric External Data ProviderNOMS External Department UnsolicitedStart: 02-22-2025 End: 82-53-8395Hajnggoag Result EncounterGeneric External Data ProviderNOMS External Department UnsolicitedStart: 02-10-2025 End: 30-19-6823Nbihqwjelani Duckworth MD Work Phone: noms ENDOCRINOLOGYStart: 02-10-2025 End: 17-26-1851Xfsssmjelani Duckworth MD Work Phone: noms ENDOCRINOLOGYStart: 02-10-2025 End: 13-93-9827Unprvx outpatient visit 25 minutesCristiane Duckworth MD Work Phone: noms ENDOCRINOLOGYComment on above:Porfirio's disease (Primary Dx); Goiter ; Vitamin D deficiencyStart: 02-10-2025 End: 27-10-2507caollhkjkuEAGJZJoselyn Fenton AvailableStart: 01-26-2025 End: 78-03-0154Fdnlna King COLON Work Phone: NOMS CI FMStart: 01-26-2025 End: 77-16-6657Yeocke King COLON Work Phone: NOMS CI FMStart: 01-26-2025 End: 64-91-0806Xppfqqfml Result EncounterGeneric External Data ProviderNOMS External Department UnsolicitedStart: 01-26-2025 End: 93-86-1567Vczhov outpatient visit 25 minutesFrancisca COLON Work Phone: NOMS CI FMComment on above:Muscle spasms of neck (Primary Dx); Fibromyalgia; Recurrent major depressive disorder, in partial remission (HCC) ([facility]/HCC)Start: 01-26-2025 End: 26-45-9420udgtakrogwCHKVCBob Miner AvailableStart: 01-25-2025 End: 14-39-8655Qqnwiam evaluation of patient and reportMa Nurse Ervin Kennedy Work Phone: Hematology/OncologyComment on above:Anemia, unspecified type (Primary Dx); 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 deficiencyStart: 01-25-2025 End: 15-83-9035xdfvpxkdpoYQQNB MABALAY ALDAFacility:[facility] Start: 01-21-2025 End: 16-14-6827Oxgzfbqtd Result Colleen Prince NP Work Phone: noms External Department UnsolicitedStart: 01-21-2025 End: 88-84-3088Wlhvvazqx Result EncounterSandre Prince SPECK DYER Work Phone: noms External Department UnsolicitedStart: 01-14-2025 End: 45-18-4895xslywchqoyCSSZGF M SHIVELYNot AvailableStart: 12-28-2024 End: 76-82-3258Gxixifp evaluation of patient and reportMa Nurse Ervin Marcia Work Phone: Hematology/OncologyComment on above:Anemia, unspecified type (Primary Dx); 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 deficiencyStart: 12-28-2024 End: 36-13-6781rxrhyazsfdVGYVZ MABALAY ALDAFacility:[facility] Start: 12-07-2024 End: 64-88-1900omorbwvlvhKJRRX M ALDANot AvailableStart: 12-07-2024 End: 21-92-5466Ajesxt outpatient visit 25 minutesNurys Boggs MD Work Phone: NOMS CI FMComment on above:Acute strain of neck muscle, initial encounter (Primary Dx); Back pain of lumbar region with sciatica; Sprain of metacarpophalangeal (MCP) joint of left thumb, initial encounter; FibromyalgiaStart: 11-30-2024 End: 50-81-0036Dkylgmq evaluation of patient and reportMa Nurse Ervin Sand Work Phone: Hematology/OncologyComment on above:Anemia, unspecified type (Primary Dx); 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 deficiencyStart: 11-30-2024 End: 84-98-5355ukorlctstsKEBIH MABALAY ALDAFacility:[facility] Start: 11-30-2024 End: 39-71-3632Viweswvsr Result EncounterGeneric External Data ProviderNOMS External Department UnsolicitedStart: 11-30-2024 End: 85-23-4689Qhqbzwlmw Result EncounterGeneric External Data ProviderNOMS External Department UnsolicitedStart: 11-02-2024 End: 20-46-9408omlnhejjkxPBART MABALAY ALDAFacility:[facility] Start: 11-02-2024 End: 51-98-7664Wtgzxir evaluation of patient and reportMa Nurse Ervin Sand Work Phone: Hematology/OncologyComment on above:Anemia, unspecified type (Primary Dx); 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 deficiencyStart: 10-19-2024 End: 73-42-1244pluxqnooldSnkto M Alda MD Work Phone: [facility] Work Phone: Start: 10-19-2024 End: 41-21-4054Fljqjiw encounter Kasandra Boggs MD Work Phone: [facility] Work Phone: Start: 10-13-2024 End: 86-85-3123bqhlwulpuoMNBSXMichael REYNOLDSacility:[facility] Start: 10-13-2024 End: 36-35-4089Byrrqky evaluation of patient and reportMa Nurse Ervin Sand Work Phone: Hematology/OncologyComment on above:Anemia, unspecified type (Primary Dx); 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 deficiencyStart: 09-17-2024 End: 64-60-4962Cnzgnr outpatient visit 15 minutesNurys Boggs MD Work Phone: noMS CI FMComment on above:Age-related osteoporosis without current pathological fracture (CMS/HCC)Start: 09-17-2024 End: 02-71-1538hdffavrpdwHGLAQ M ALDANot AvailableStart: 09-07-2024 End: 66-15-8147Uetyaaa evaluation of patient and reportMa Nurse Ervin Kennedy Work Phone: Hematology/OncologyComment on above:Anemia, unspecified type (Primary Dx); 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 deficiencyStart: 09-07-2024 End: 18-15-4365xjxehkzzgvQDSAR MABALAY ALDAFacility:[facility] Start: 09-07-2024 End: 82-87-2004Katrwb outpatient visit 15 minutesMaikel Lunsford MD Work Phone: Hematology/OncologyComment on above: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 deficiency (Primary Dx)Start: 09-07-2024 End: 48-93-5137Uwjoafrzf Result EncounterGeneric External Data ProviderNOMS External Department UnsolicitedStart: 09-07-2024 End: 13-39-7552Cgjhoduba Result EncounterGeneric External Data ProviderNOMS External Department UnsolicitedStart: 09-07-2024 End: 21-27-4268Cbqrgmiyk encounterMaikel Lunsford MD Work Phone: Cancer Appts MCComment on above:ResultsStart: 09-07-2024 End: 37-86-8190aolelsvrqyMOFAVSariah REYNOLDSacility:[facility] Start: 09-07-2024 End: 72-57-5803Qcembv outpatient visit 25 minutesNurys Boggs MD Work Phone: noMS CI FMComment on above:Left hand pain (Primary Dx); Emphysema, unspecified (CMS/HCC); 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 (CMS/HCC); Malignant neoplasm of unspecified site of right female breast (CMS/HCC); Panlobular emphysema (CMS/HCC); Chronic obstructive pulmonary disease, unspecified (CMS/HCC); Other specified chronic obstructive pulmonary disease (CMS/HCC); 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); Osteopenia of multiple sites; Diverticulosis; Irritable bowel syndrome with diarrhea; FibromyalgiaStart: 09-07-2024 End: 63-66-8103fnxuzphvmaDXNRJ M ALDANot AvailableStart: 08-13-2024 End: 44-34-6565Dvrszmi encounter procedureNurys Boggs MD Work Phone: [facility] [place] Work Phone: Start: 08-13-2024 End: 44-86-8818wbsiyyxzfbXthr M ScovannerFacility:[facility] Hospitaltart: 08-11-2024 End: 44-17-2946ajptdehdzqIKRKW ABHYANKARFacility:[facility]art: 08-11-2024 End: 68-30-9571Sspkuqf evaluation of patient and reportMa Nurse Ervin Kennedy Work Phone: Hematology/OncologyComment on above:Anemia, unspecified type (Primary Dx); 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 deficiencyStart: 08-10-2024 End: 84-91-1246Ybnxfg outpatient visit 25 minutesNurys Boggs MD Work Phone: [facility] FMComment on above:Seasonal affective disorder (CMS/HCC); FibromyalgiaStart: 08-10-2024 End: 48-83-3393oreovhpgczFVBVJ M ALDANot AvailableStart: 07-28-2024 End: 60-71-2158Achdltp encounter procedureNurys Boggs MD Work Phone: [facility] Work Phone: Start: 07-13-2024 End: 85-40-5930tuubbbfdyiWHBHU ABHYANKARFacility:[facility] [place]iotart: 07-13-2024 End: 71-74-4560Dowfdeo evaluation of patient and reportMa Nurse Ervin Kennedy Work Phone: Hematology/OncologyComment on above:Anemia, unspecified type (Primary Dx); 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 deficiencyStart: 07-07-2024 End: 21-56-0165Gufbij outpatient visit 25 minutesNurys Boggs MD Work Phone: NOMS CI FMComment on above:Seasonal affective disorder (CMS/HCC) (Primary Dx); Acute bilateral low back pain without sciatica; Myalgia; FibromyalgiaStart: 07-07-2024 End: 04-07-7587ecfryrpcrqWQNTW M ALDANot AvailableStart: 13-16-8585sumkwdyzsk Liborio GarciaFacility:[facility]rystian [facility]ENTERtart: 06-29-2024 End: 68-45-4559juzbdoleibOpwbkfi J DittyFacility:[facility]tart: 06-23-2024 End: 58-79-2433Zdvzzuxhg encounterMichelle Shelton RNHematology/OncologyComment on above:Iron resultsStart: 06-15-2024 End: 76-05-0125Xgsilhx evaluation of patient and reportMa Nurse Ervin Kennedy Work Phone: Hematology/OncologyComment on above:Anemia, unspecified type (Primary Dx); 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 deficiencyStart: 06-15-2024 End: 35-28-7778Blkdkimle Result EncounterGeneric External Data ProviderNOMS External Department UnsolicitedStart: 06-15-2024 End: 80-33-7020Lavgqfunh Result EncounterGeneric External Data ProviderNOMS External Department UnsolicitedStart: 06-09-2024 End: 69-07-0383chjztpmutvVkbmvzglxSouthwest [facility] Center Work Phone: Start: 06-09-2024 End: 89-49-0552Gtrycvy encounter procedureNov[facility] G[facility] Work Phone: Start: 06-08-2024 End: 22-12-2100Yqwtdndng Result EncounterCalebkenney Hawa Dany COLON Work Phone: noms External Department UnsolicitedStart: 06-08-2024 End: 39-39-0621Puunuunms Result EncounterFrancisca Shaikh Dany COLON Work Phone: noms External Department UnsolicitedStart: 06-08-2024 End: 59-81-4124Nkozlbeiq encounterFrancisca Shaikh Dany PA Work Phone: noms CI FMStart: 05-18-2024 End: 56-22-7817Lifqdqb evaluation of patient and reportMa Nurse Ervin Kennedy Work Phone: Hematology/OncologyComment on above:Anemia, unspecified type (Primary Dx); 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 deficiencyStart: 05-12-2024 End: 06-48-3833Vssmpq outpatient visit 25 minutesCalebkenney COLON Work Phone: noms CI FMComment on above:Primary osteoarthritis of left knee (Primary Dx); Effusion of left knee; Encounter for screening mammogram for malignant neoplasm of breast; Other osteoarthritis of spine, lumbar region; Back pain of lumbar region with sciaticaStart: 05-12-2024 End: 99-70-4734gamkpdfslnMEXNX M HEMMERNot AvailableStart: 05-12-2024 End: 88-83-5119Sdqbmy flowsShai Rojas PA Work Phone: NOMS CI FMStart: 05-12-2024 End: 74-79-2340Tsjqqv King Rojas PA Work Phone: NOMS CI FMStart: 05-06-2024 End: 76-32-7426sefukuzucwPuuubliibMemorial Health System [facility] Work Phone: Start: 05-06-2024 End: 03-23-4951Vhfcdce encounter [facility] Gastroenterology Work Phone: Start: 04-20-2024 End: 82-88-7467Gkrvuba evaluation of patient and reportMa Nurse Ervin Kennedy Work Phone: Hematology/OncologyComment on above:Anemia, unspecified type (Primary Dx); 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 deficiencyStart: 04-06-2024 End: 08-43-0111jkqfxhoqccWnnzfml A. MouchliFacility:[facility] DHStart: 04-06-2024 End: 29-67-5291Cxnjncm encounter procedureLiborio Garcia [phone]-CmgocOhiohealth [facility] Start: 03-23-2024 End: 03-32-5423Pikmzvh evaluation of patient and reportMa Nurse Ervin Kennedy Work Phone: Hematology/OncologyComment on above:Anemia, unspecified type (Primary Dx); 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 deficiencyStart: 03-23-2024 End: 38-63-3409Scmrdf outpatient visit 15 minutesMaikel Lunsford MD Work Phone: Hematology/OncologyComment on above: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 deficiency (Primary Dx)Start: 03-18-2024 End: 69-19-8067Toremvbza Result EncounterNurys Boggs MD Work Phone: noms External Department UnsolicitedStart: 03-18-2024 End: 47-00-0136Xplwzlpzx Result EncounterNurys Boggs MD Work Phone: noms External Department UnsolicitedStart: 03-17-2024 End: 76-76-0423pvbuwhuslaSGWGT M ALDANot AvailableStart: 03-12-2024 End: 89-27-2197vfjxgtvcdfJjqxzwythMemorial Health System [facility] Work Phone: Start: 03-12-2024 End: 29-11-3355Khzlvgm encounter procedureNov[facility] Gastroenterology Work Phone: Start: 03-09-2024 End: 29-00-0408ahjttmibmaShrsnuij Talal SarminiFacility:FTMCStart: 03-09-2024 End: 20-79-0877Maribka encounter procedureAgnieszka Schafer [facility] Start: 02-17-2024 End: 40-20-5258krlotedcuySRGNI M HEMMERNot AvailableStart: 01-30-2024 End: 96-69-2086Mpirags evaluation of patient and reportMa Nurse Ervin Sand Work Phone: Hematology/OncologyComment on above:Anemia, unspecified type (Primary Dx); 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 deficiencyStart: 85-36-8739Odmdpxjdv encounterMaikel Lunsford MD Work Phone: Hematology/OncologyStart: 01-22-2024 End: 19-45-6645wbhsygdborGoql A SteinmetzFacility:FTMCStart: 01-22-2024 End: 38-48-0979Judtvty encounter Mitchel Shearer [facility] Start: 01-02-2024 End: 40-63-6996Ecptxzl evaluation of patient and reportMa Nurse Ervin Sand Work Phone: Hematology/OncologyComment on above:Anemia, unspecified type (Primary Dx); 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 deficiencyStart: 12-26-2023 End: 78-46-4114Ltmzxshac Result EncounterSandre Prince SPECK DYER Work Phone: NOMS External Department UnsolicitedStart: 12-26-2023 End: 66-56-4377Wugcxvtku Result EncounterSandre Prince SPECK DYER Work Phone: NOMS External Department UnsolicitedStart: 12-05-2023 End: 02-21-5384Apravmk evaluation of patient and reportMa Nurse Ervin Sand Work Phone: Hematology/OncologyComment on above:Anemia, unspecified type (Primary Dx); 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 deficiencyStart: 12-02-2023 End: 93-03-0170Abwvdafit Result EncounterFrancisca COLON Work Phone: noms External Department UnsolicitedStart: 12-02-2023 End: 24-53-8789Kxzyqwvgx Result EncounterFrancisca COLON Work Phone: noms External Department UnsolicitedStart: 11-07-2023 End: 78-08-0977Otubfna evaluation of patient and reportMa Nurse Ervin Kennedy Work Phone: Hematology/OncologyComment on above:Anemia, unspecified type (Primary Dx); 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 deficiencyStart: 10-11-2023 End: 04-86-5445pgzeyfarraWyqq A SteinmetzFacility:[facility] DHStart: 10-11-2023 End: 81-03-5186Iiomsjn encounter procedureRosa Shearer [phone]-HvsxyOhiohealth [facility] Start: 10-10-2023 End: 74-23-3993Kmcyafc evaluation of patient and reportMa Nurse Ervin Kennedy Work Phone: Hematology/OncologyComment on above:Anemia, unspecified type (Primary Dx); 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 deficiencyStart: 07-31-2023 End: 85-43-5992Uiwsbiwbs department patient visitMD Nurys Boggs Work Phone: [facility] Work Phone: Start: 07-31-2023 End: 65-20-4723Fudelaomt Result EncounterGeneric External Data ProviderNOMS External Department UnsolicitedStart: 07-31-2023 End: 33-83-2408Iizrryqos Result EncounterGeneric External Data ProviderNOMS External Department UnsolicitedStart: 07-31-2023 End: 08-28-7629Viulcib evaluation of patient and reportMa Nurse Ervin Kennedy Work Phone: Hematology/OncologyComment on above:Anemia, unspecified type (Primary Dx); 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 deficiency; TachycardiaStart: 91-16-3971Nbgccydwe encounterMacarena Brown RN Hematology/OncologyComment on above:SyncopeStart: 07-31-2023 End: 23-74-1122rxawpsnasrQamb A YanmetzFacility:FTMCStart: 07-31-2023 End: 31-95-0103Noa Drop offBeth A Manfred [facility] Start: 07-26-2023 End: 94-89-2127dqxcsgepuuBsxp A YanmetnavinFacility:Krystian DHStart: 07-26-2023 End: 21-73-0890Egydwoa encounter procedureBeth A Manfred [phone]-BiyayOhiohealth [facility] Start: 07-03-2023 End: 06-62-0897wcwchsfrjjBbdwtaqdte Michaelis RD Work Phone: sANDUSKYStart: 07-03-2023 End: 22-87-5824Fnnrssdax therapyJamichael Bragg RD Work Phone: Nutrition TherapyComment on above:Nutrition Assessment Start: 07-03-2023 End: 68-32-2863Hmvnjff evaluation of patient and reportMa Nurse Ervin Kennedy Work Phone: Hematology/OncologyComment on above:Anemia, unspecified type (Primary Dx); 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 deficiencyStart: 06-26-2023 End: 46-07-2768mbjrtnnvjoXwnu A YanmetnavinFacility:[facility]rystian DHStart: 06-26-2023 End: 14-19-0539Qcppbtb encounter procedureBeth A Manfred [phone]-VovnvOhiohealth [facility] Start: 06-05-2023 End: 76-07-6750Ilvmgaa evaluation of patient and reportMa Nurse Ervin Kennedy Work Phone: Hematology/OncologyComment on above:Anemia, unspecified type (Primary Dx); 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 deficiencyStart: 06-05-2023 End: 01-80-6144Ehichs outpatient visit 15 minutesMaikel Lunsford MD Work Phone: Hematology/OncologyComment on above: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 deficiency (Primary Dx); Anemia, unspecified type; Pancreatic insufficiencyStart: 04-05-2023 End: 47-91-5520Xdwidfa evaluation of patient and reportMa Nurse Ervin Kennedy Work Phone: Hematology/OncologyComment on above:Anemia, unspecified type (Primary Dx); 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 deficiencyStart: 01-37-1863Kjzstojwt encounterMaikel Lunsford MD Work Phone: Cancer Appts MCComment on above:Records Faxed To FT Digestive DiseaseStart: 03-29-2023 End: 48-95-7982Mxdcapw evaluation of patient and reportMa Nurse Ervin Kennedy Work Phone: Hematology/OncologyComment on above:Anemia, unspecified type (Primary Dx); 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 deficiencyStart: 03-26-2023 End: 16-79-4175Kqbtkjn encounter Mitchel Shearer [phone]-VthtjOhiohealth [facility] Start: 03-22-2023 End: 90-70-1715Iachmao evaluation of patient and reportMa Nurse Ervin Kennedy Work Phone: Hematology/OncologyComment on above:Anemia, unspecified type (Primary Dx); Megaloblastic anemia due to vitamin B12 deficiencyStart: 03-13-2023 End: 85-78-7418Fojwrct evaluation of patient and reportMa Nurse Ervin Kennedy Work Phone: Hematology/OncologyComment on above:Anemia, unspecified type (Primary Dx); Megaloblastic anemia due to vitamin B12 deficiencyStart: 03-13-2023 End: 76-99-1508Hfpgjx outpatient new 45 minutesMaikel Lunsford MD Work Phone: Hematology/OncologyComment on above:Anemia, unspecified type (Primary Dx); Megaloblastic anemia due to vitamin B12 deficiencyStart: 03-07-2023 End: 83-73-2210Lzeeqng encounter procedureBemickey Graham [facility] Start: 02-22-2023 End: 16-09-7775Kldexyb encounter procedureBemickey Graham [facility] [phone]-ZulksOhiohealth [facility] Start: 02-13-2023 End: 58-79-2777Ksuqpcf encounter procedureBemickey Graham [facility] Start: 01-25-2023 End: 95-58-8245gwjxkyhrwkKrndh Keller Other [place] [employer] Other Start: 00-82-1536Mvullm outpatient visit 15 minutes [facility] ClydeStart: 11-30-2022 End: 44-39-7521cinlxhqokyHB FRANCISCA Shaikh HEMMERFacility:H5Kecqq: 11-22-2022 End: 91-31-9686Vkpvbbg encounter procedureBemickey Graham [facility] [phone]-RtteqOhiohealth [facility] Start: 11-01-2022 End: 50-68-1830Jfsdcen encounter procedureBemickey Graham [facility] Start: 10-16-2022 End: 08-08-1073Bqiblse encounter procedureMaher SALAM [facility] Start: 10-10-2022 End: 03-78-5803Fhiwzwg encounter procedureMaher SALAM [phone]-YwxemOhiohealth [facility] Start: 07-17-2022 End: 50-70-1503rjittqskawGZ FRANCISCA Shaikh HEMMERFacility:C7Lyhdg: 07-14-2022 End: 05-99-3647jsdtphlvxbQQ KAREN M HEMMERFacility:B5Ciujp: 06-19-2022 End: 39-21-5761Azufufl encounter procedureBeth A Manfred [facility] Start: 06-19-2022 End: 49-70-0737Oqacxxw encounter procedureBeth A Manfred [phone]-FgsecOhiohealth [facility] Start: 05-29-2022 End: 44-15-6546dqjamwoajsIY NURYS ALDAFacility:S0Wpnxs: 04-17-2022 End: 62-94-3547Pxkczec encounter procedureMaher SALAM [phone]-FcgpnOhiohealth [facility] Start: 04-11-2022 End: 01-85-0164Ddnelov encounter procedureMaher SALAM [facility] Start: 03-16-2022 End: 27-30-2661Aycdyjg encounter procedureMaher SALAM [facility] Start: 02-01-2022 End: 06-83-8544supzviobgkFNIDT SALAMFacility:U6Bxjwr: 01-25-2022 End: 42-34-6322Nqzjtmp encounter procedureMaher SALAM [phone]-TvmsdOhiohealth [facility] Procedures DateProcedureProcedure DetailPerforming ClinicianStart: 87-80-2502LSY CBC WITH AUTO DIFFGeneric External Data ProviderStart: 35-26-9178XFI CBC W AUTO DIFF BLD Generic External Data ProviderStart: 10-45-3203YVX T3 FREEGeneric External Data ProviderStart: 05-99-9107OBR THYROID STIM HORMONEGeneric External Data Provider Start: 87-47-7421TC HEAD/BRAIN Dilan Prince [employer] Work Phone: Start: 76-55-2364YOC CBC W AUTO DIFF BLDGeneric External Data ProviderStart: 78-56-4423CVZ CBC W AUTO DIFF BLDGeneric External Data ProviderStart: 40-86-4841Ayaslugw tomography of abdomen and pelvis with contrastNurys Boggs MD Work Phone: Start: 72-44-1104BycmnjifjufPmugg Alda MD Work Phone: Start: 23-35-1246WRP CBC W AUTO DIFF BLDGeneric External Data ProviderStart: 23-49-5029UL TOMOSYNTHESIS SCREENING Mendez COLON Work Phone: Start: 62-69-9904Bnufmbhipp examination knee 1/2 views Nurys Boggs MD Work Phone: Start: 70-00-8069Mlpyizogfu exam knee complete 4/more Georgi Prince [employer] Work Phone: Start: 59-47-6419XM LUNG SCREENING LOW DOSEFrancisca COLON Work Phone: Start: 97-18-4232HC DEXA AXIAL SKELETONFrancisca COLNO Work Phone: Start: 76-05-1637Lew routine ecg w/least 12 lds i&r onlyCcf ProviderStart: 85-97-8153ZUW81Qhajvpi External Data ProviderStart: 09-73-8809SQ of head without contrastMD Nurys Boggs Work Phone: Start: 53-65-9391Msors chest X-rayMD Nurys Boggs Work Phone: Start: 32-43-5488VURW-CoV-2, Influenza & RSV (PCR)MD Vacakenney Ambrose Work Phone: Start: 91-28-5380AjmrrkflxixDvvao Hemmer PA Work Phone: Start: 36-09-3080RlavmrbfolnBgepu SALAM Start: 43-81-7118IJGHQC BIOPSYMaher SALAM Start: 79-42-1697Mlynoctosa test result abnormal Abnormal laboratory test resultFrancisca COLON Work Phone: Start: 01-83-3968IfylvnapfsgSi Sand Work Phone: Start: 10-37-4113Ytwkskil of fallopian tubeMaher SALAM Biopsy of breastMaher SALAM ColonoscopyMaher SALAM HysterectomyMaher SALAM Laparoscopic cholecystectomyMaher SALAM Plan of Treatment DateCare ActivityDetailAuthorStart: 71-54-1921Mjcvehwob for malignant neoplasm of colonNOMS HealthcareStart: 25-72-2127Nwkpksbgq for malignant neoplasm of colonNOMS HealthcareStart: 04-18-7924OJV Vaccine (1 - 1-dose 75+ series)RSV Vaccine (1 - 1-dose 75+ series)[facility]: 04-47-8756Jdxweudd ScreeningDiabetes ScreeningPremier Health [facility]htart: 75-32-3676Urhumhfi Screening Diabetes ScreeningPremier Health [facility]htart: 00-09-3554Vhhpmudi ScreeningDiabetes ScreeningPrem[facility] Health [facility]: 84-86-6579Hamojlrp ScreeningDiabetes Screening [facility]: 62-16-0306Pakecdcc ScreeningDiabetes ScreeningPrem[facility] Health [facility]ht[facility]: 24-81-0404Vqtvdhcd ScreeningDiabetes ScreeningUniversity [facility]als [facility] Start: 50-74-5976Smxnfvea ScreeningDiabetes ScreeningPremier Health [facility]: 48-31-6127Vbyxlzrl ScreeningDiabetes ScreeningPrem[facility]: 03-13-2026 DIABETES SCREENDIABETES SCREENPremier Health [facility]htart: 80-81-0656Bgytnixa ScreeningDiabetes ScreeningPremier Health [facility]: 02-09-2026 End: 53-87-1096Ctcnzei encounter procedureNOMS ENDOCRINOLOGYStart: 08-09-2025 End: 21-56-8477Nftvogw evaluation of patient and xlefnz2708/09/2025 3:00 PM EST Nurse Visit Hematology/Oncology [address] [place] [address] Rafa Kennedy Nurse Ervin [address] [place] [address] follow up laband B12(seeing Kim uribe)Hematology/OncologyComment on above:follow up lab and B12(seeing Kim uribe)Start: 08-09-2025 End: 20-08-0681Sdrcfg-up /15/2025 2:30 PM EST Visit (SP) Office Hematology/Oncology [address] [place], [place] [phone] Kim Henry APRN.[employer] [address] [place] [address] follow up lab and Q09Jwmivzoiif/OncologyComment on above: follow up lab and A98Pvkfh: 08-09-2025 End: 73-82-8303Myfuwsq encounter onpqacktw39/15/2025 2:15 PM EST Office Visit [facility] [address] [place] [address] follow up lab and Q41OkghfFormerly [facility] LaboratoryComment on above:follow up lab and Q72Etgez: 07-13-2025 End: 37-36-6331Mwmjqrm evaluation of patient and zafcdw1607/13/2025 2:00 PM EST Nurse Visit Hematology/Oncology [address] [place] [address] Rafa Kennedy Nurse Ervin [address] [place] [address] monthly P03Dleukoclnx/OncologyComment on above:monthly C96Eomid: 06-15-2025 End: 15-42-5723Rgjdjyb evaluation of patient and reportHematology/Oncology Comment on above:follow up lab and S52exinoay J82Lwuum: 05-18-2025 End: 71-95-9459Vqanqbf evaluation of patient and reportHematology/Oncology Comment on above:follow up lab and Z88a65Ezbwq: 05-18-2025 End: 75-09-8014Iobfgvv encounter xsrkumztc49/23/2025 1:45 PM EDT Office Visit [facility] [address] [place], [place] [address] [address] labNortFormerly [facility] LaboratoryComment on above:labStart: 85-56-8075Bdzvlxipz vaccinationLa Villa ClinicStart: 04-20-2025 End: 12-73-8530Hycztpn evaluation of patient and reportHematology/Oncology Comment on above:follow up lab and J91nyqdbrf T34Zrrxk: 03-22-2025 End: 95-42-0329Weimezy evaluation of patient and reportHematology/Oncology Comment on above:follow up lab and K30vibnqif L86Wtyeu: 02-22-2025 End: 70-36-3899Keiirhy evaluation of patient and wnwmrt4402/22/2025 3:00 PM EDT Nurse Visit Hematology/Oncology [address] [place] [address] [phone] Rafa Kennedy Nurse Ervin [address] [place] [address] follow up laband N97Gorhcjmdqw/OncologyComment on above:follow up lab and L58Abpav: 02-22-2025 End: 44-43-0825Jewqhi-up bqnvaexel03/30/2025 2:30 PM EDT Visit (SP) Office Hematology/Oncology [address] [place], [place] [phone] Kim Henry APRN.[employer] [address] [place] [address] follow up lab and H62Mekxoqorns/OncologyComment on above: follow up lab and G96Gxqdk: 02-22-2025 End: 24-16-1196Ipsxdoy encounter zohjwhsmh64/30/2025 2:15 PM EDT Office Visit [facility] [address] [place] [address] follow up lab and I79RibbeFormerly [facility] LaboratoryComment on above:follow up lab and P89Scwsa: 02-10-2025 End: 30-89-8938Uomjvzfpwgi [Units/volume] in Serum or PlasmaTSH Lab Routine Porfirio's disease Expected: 02/10/2025 (Approximate), Expires: 02/10/2026NOOR HealthcareComment on above:Expected: 02/10/2025 (Approximate), Expires: 02/10/2026Start: 02-10-2025 End: 65-53-9833Zfnnjgqkd (T4) free [Mass/volume] in Serum or PlasmaT4, free Lab Routine Porfirio's disease Expected: 02/10/2025 (Approximate), Expires: 02/10/2026NO[facility] HealthcareComment on above:Expected: 02/10/2025 (Approximate), Expires: 02/10/2026Start: 02-10-2025 End: 44-48-4632Lldhenqgfjjkvrxx (T3) Free [Mass/volume] in Serum or PlasmaT3, free Lab Routine Porfirio's disease Expected: 02/10/2025 (Approximate), Expires: 02/10/2026[facility] Work Phone: Comment on above:Expected: 02/10/2025 (Approximate), Expires: 02/10/2026Start: 02-10-2025 End: 25-61-5496Itcugdh encounter procedureNOMS ENDOCRINOLOGYComment on above: ArrivedStart: 01-26-2025 End: 59-07-8682Kxxtojd encounter lmiiueqsw43/03/2025 1:30 PM EDT Office Visit [facility] [address] [place] [address] Francisca Rojas PA [address] [place] [address] ArrivedNOMS CI FMComment on above:ArrivedStart: 01-25-2025 End: 41-55-4385Qafmnqb evaluation of patient and ppdvwx5801/25/2025 2:30 PM EDT Nurse Visit Hematology/Oncology [address] [place] [address] Rafa Kennedy Nurse Ervin [address] [place], [place] [phone] I78Dhpdblyzlm/OncologyComment on above:V41Vkkvm: 12-28-2024 End: 02-16-2765Rfpnyso evaluation of patient and szntnf7412/28/2024 2:30 PM EDT Nurse Visit Hematology/Oncology [address] [place] [address] [phone] Rafa Kennedy Nurse Ervin [address] [place] [address] U59Bmhmknerkz/OncologyComment on above:V37Xlbzj: 12-07-2024 End: 63-74-5670WP Hand - left 2 ViewsXR hand 1 or 2 views left Imaging Routine Sprain of metacarpophalangeal (MCP) joint of left thumb, initial encounter Expected: 12/07/2024, Expires: 12/07/2025[facility] Work Phone: Comment on above:Expected: 12/07/2024, Expires: 12/07/2025Start: 11-30-2024 End: 42-16-1826Aezghhu evaluation of patient and mgxwfd1111/30/2024 2:30 PM EDT Nurse Visit Hematology/Oncology [address] [place] [address] Rafa Kennedy Nurse Ervin [address] [place] [address] S87Mvmikxbleq/OncologyComment on above:V92Vrrup: 11-30-2024 End: 81-83-9534Mefnhpe encounter iyoofjshu37/07/2025 2:15 PM EDT Office Visit [facility] [address] [place] [address] labVista Surgical Hospital LaboratoryComment on above:labStart: 11-02-2024 End: 51-93-5979Rcnrzyt evaluation of patient and skpgrx8211/02/2024 2:30 PM EDT Nurse Visit Hematology/Oncology [address] [place] [address] Rafa Kennedy Nurse Ervin [address] [place] [address] D09Rucnvnduij/OncologyComment on above:K86Jrmfa: 10-05-2024 End: 74-77-0153Tcolloh evaluation of patient and wgjluw5410/05/2024 2:30 PM EST Nurse Visit Hematology/Oncology [address] [place] [address] Rafa Kennedy Nurse Ervin [address] [place] [address] R80Xnkooozlsc/OncologyComment on above:Z66Yinkm: 09-07-2024 End: 76-16-1933Ntffpy-up encounterHematology/OncologyComment on above:6 month follow up with lab and B 12 injStart: 09-07-2024 End: 69-40-9113Kuofbpl encounter yjsfhrsbe42/13/2025 2:00 PM EST Office Visit [facility] [address] [place] [address] 6 month follow up with lab and B 12 injrtFormerly [facility] LaboratoryComment on above:6 month follow up with lab and B 12 inj Start: 71-57-1907Yykjieb Directive DiscussionAdvance Directive Discussion [facility]: 08-10-2024 End: 33-83-4080Gshnbhj evaluation of patient and mvwxum1208/10/2024 2:00 PM EST Nurse Visit Hematology/Oncology [address] [place] [address] [phone] Rafa Kennedy Nurse Ervin [address] [place] [address] B 12 q 4 weeksHematology/OncologyComment on above:B 12 q 4 weeksStart: 07-13-2024 End: 84-09-8478Ptumcmp evaluation of patient and mpflnn1707/13/2024 2:00 PM EST Nurse Visit Hematology/Oncology [address] [place] [address] [phone] Rafa Kennedy Nurse Ervin [address] [place] [address] B 12 q 4 weeksHematology/OncologyComment on above:B 12 q 4 weeksStart: 62-85-8958Pelgppbvfyot Vaccine: 65+ Years (1 of 2 - PCV)Pneumococcal Vaccine: 65+ Years (1 of 2 - PCV)NOMS HealthcareComment on above:Postponed from 1961 (Patient Refused)Start: 06-15-2024 End: 87-03-6168Ailqaxv evaluation of patient and mnzfjt6306/15/2024 2:15 PM EDT Nurse Visit Hematology/Oncology [address] [place] [address] [place] [address] [phone] Rafa Kennedy Nurse Ervin [address] [place] [address] B 12 q 4 weeksHematology/OncologyComment on above:B 12 q 4 weeksStart: 06-15-2024 End: 11-04-6914Wnvyxdv encounter wbteeklqz63/21/2024 2:00 PM EDT Office Visit [facility] [address] [place] [address] B 12 q 4 weeksNortFormerly [facility] Comment on above:B 12 q 4 weeksStart: 06-04-2024 End: 45-60-3173LWW Breast - bilateral screeningBilateral screening mammogram with tomosynthesis Imaging Routine Encounter for screening mammogram for malignant neoplasm of breast Expected: 06/04/2024, Expires: 07/12/2025[facility] Work Phone: Comment on above:Expected: 06/04/2024, Expires: 07/12/2025Start: 05-18-2024 End: 40-25-0514Gpkqwhl evaluation of patient and ceubwr3705/18/2024 2:00 PM EDT Nurse Visit Hematology/Oncology [address] [place] [address] Rafa Kennedy Nurse Ervin [address] [place] [address] B 12 q 4 weeksHematology/OncologyComment on above:B 12 q 4 weeksStart: 05-12-2024 End: 72-56-4386Egtpgxm encounter wwwherkyl89/17/2024 3:30 PM EDT Office Visit [facility] [address] [facility] [address] [place] [phone] Francisca Rojas PA [address] [place] [address] ArrivedNOMS CI FMComment on above:ArrivedStart: 09-00-7937Edhxt-19 Vaccine ( season)Covid-19 Vaccine ( season)[facility]: 39-89-6872Cokxiorlf vaccinationUniversity Hospitals [facility] Medical Center Start: 04-20-2024 End: 79-70-3979Elwwryt evaluation of patient and qkhnkk8404/20/2024 2:00 PM EDT Nurse Visit Hematology/Oncology [address] [place] [address] [phone] Rafa Kennedy Nurse Ervin [address] [place] [address] B 12 q 4 weeksHematology/OncologyComment on above:B 12 q 4 weeksStart: 03-05-2024 End: 93-08-3163Zjijxab evaluation of patient and fscrnt6603/05/2024 3:00 PM EDT Nurse Visit Hematology/Oncology [address] [address] Rafa Kennedy Nurse Ervin [address] [place] [address] 6 month follow up with lab and B 12 injHematology/OncologyComment on above:6 month follow up with lab and B 12 injStart: 03-05-2024 End: 77-81-4525Flnxxx-up oxbjvknsf47/11/2024 2:45 PM EDT Visit (SP) Office Hematology/Oncology [address] [place], [place] [phone] Maikel Lunsford MD [address] [place] [address] 6 month follow up with lab and B 12 injHematology/Oncology Comment on above:6 month follow up with lab and B 12 injStart: 03-05-2024 End: 68-21-6102Pcyocng encounter /11/2024 2:30 PM EDT Office Visit [facility] [address] [place] [address] 6 month follow up with lab and B 12 injNortFormerly [facility] LaboratoryComment on above:6 month follow up with lab and B 12 inj Start: 01-30-2024 End: 78-10-7884Uddputb evaluation of patient and reportHematology/Oncology Comment on above:S-29W-90-Start: 21-21-6285Hxxjzur Directive DiscussionAdvance Directive DiscussionPrem[facility]: 50-99-4737Yhqnwrtjkt Health Screening Behavioral Health ScreeningPrem[facility] Health [facility]: 53-91-1129Dadcjimwpk AssessmentDepression AssessmentPremier Health [facility]: 44-57-4080Fkogczqs identified in Urine by CultureNewark Hospitaltart: 06-05-2023 End: 65-36-4016VPR W Auto Differential panel - BloodCBC + DIFF Lab Routine Anemia, unspecified type Megaloblastic anemia due to vitamin B12 deficiency E xpected: 06/05/2023 (Approximate), Expires: 03/13/2024[facility] Work Phone: Comment on above:Expected: 06/05/2023 (Approximate), Expires: 03/13/2024Start: 06-05-2023 End: 32-90-2683Pocnbwyes (Vitamin B12) [Mass/volume] in Serum or PlasmaVITAMIN B12 BLOOD Lab Routine Anemia, unspecified type Megaloblastic anemia due to vitamin B12 deficiency Expected: 06/05/2023 (Approximate), Expires: 03/13/2024 [facility] Work Phone: Comment on above:Expected: 06/05/2023 (Approximate), Expires: 03/13/2024Start: 06-05-2023 End: 08-68-8804Vvgkehhwuqoxz metabolic 2000 panel - Serum or PlasmaCOMP METABOLIC PANEL Lab Routine Anemia, unspecified type Megaloblastic anemia due to vitamin B12 deficiency Expected: 06/05/2023 (Approximate), Expires: 03/13/2024 [facility] Work Phone: Comment on above:Expected: 06/05/2023 (Approximate), Expires: 03/13/2024Start: 06-05-2023 End: 79-96-3364Ofifjrst [Mass/volume] in Serum or PlasmaFERRITIN BLD Lab Routine Anemia, unspecified type Megaloblastic anemia due to vitamin B12 deficiency Expected: 06/05/2023 (Approximate), Expires: 03/13/2024[facility] Work Phone: Comment on above:Expected: 06/05/2023 (Approximate), Expires: 03/13/2024Start: 06-05-2023 End: 90-88-8742Xkjcoj [Mass/volume] in Serum or PlasmaFOLATE SERUM Lab Routine Anemia, unspecified type Megaloblastic anemia due to vitamin B12 deficiency Expected: 06/05/2023 (Approximate), Expires: 03/13/2024[facility] Work Phone: Comment on above:Expected: 06/05/2023 (Approximate), Expires: 03/13/2024Start: 06-05-2023 End: 85-94-0622Wdjy and Iron binding capacity panel - Serum or PlasmaIRON + TIBC Lab Routine Anemia, unspecified type Megaloblastic anemia due to vitamin B12 deficiencyExpected: 06/05/2023 (Approximate), Expires: 07/19/[address] [place] [address] Work Phone: Comment on above:Expected: 06/05/2023 (Approximate), Expires: 03/13/2024Start: 61-30-0728Wrftogydh for malignant neoplasm of breast Mammogram ScreeningPremier Health [facility]htart: 43-52-1249Qruke-19 Vaccine ( season)Covid-19 Vaccine ( season)[facility]: 04-26-2023 Influenza vaccinationPrem[facility] Health [facility]htart: 53-65-2884FUUYWWQ DIRECTIVE DISCUSSIONADVANCE DIRECTIVE DISCUSSIONCleKindred Hospital Limatart: 08-26-2022 DEPRESSION ASSESSMENTDEPRESSION ASSESSMENTPrem[facility] Health [facility]htart: 38-60-9648BMFG DENSITYBONE DENSITYPrem[facility]ht[facility]: 55-92-5148Jbfb Density ScreeningBone Density ScreeningPrem[facility] Health [facility]ht[facility]: 31-16-0242Nqkwpxmxdbba Vaccine: 65+ (1 of 1 - PCV)Pneumococcal Vaccine: 65+ (1 of 1 - PCV)[facility]: 54-44-5126Npodwhefg for osteoporosisBone Density ScreeningPrem[facility] Health [facility]: 09-01-2018Medicare Annual Wellness VisitMedicare Annual Wellness VisitPremier Health [facility]ht[facility]: 81-32-0798Xjyukvchi for malignant neoplasm of colonPremier Health [facility]htart: 36-56-4908HDDXNSMZ VACCINE (2 of 3)SHINGRIX VACCINE (2 of 3) [facility]: 23-50-2697JJH Vaccine (1 - 1-dose 60+ series)RSV Vaccine (1 - 1-dose 60+ series)[facility]: 46-03-2027Azlrwatnfrhr Vaccine: 50+ (1 of 1 - PCV)Pneumococcal Vaccine: 50+ (1 of 1 - PCV)[facility]: 49-14-5566IAVXTRPMS (FIT-DNA)COLOGUARD (FIT-DNA)[facility]: 32-31-1189MogpstrnvfwGHZIQBEYFLOYdwlmiggz ClinicStart: 73-40-1887SPTXDZWIEC CANCER SCREENINGCOLORECTAL CANCER SCREENINGPrem[facility]: 86-43-5550OM COLONOGRAPHYCT COLONOGRAPHYPremier Health [facility] Hospital [facility]htart: 00-59-6172GNWBD OCCULT BLOOD FECAL OCCULT BLOODPrem[facility] Health [facility]ht[facility]: 99-78-5387Shady 1996 panel - Serum or PlasmaLipid ScreeningPrem[facility] Health [facility]ht[facility]: 78-96-6949Xrzie panelLipid Screening [facility]: 12-05-0718KQDOR SCREENLIPID SCREENPrem[facility] Health [facility]: 05-76-5156Zkbrhrnvb for malignant neoplasm of colonPrem[facility] Health [facility]: 84-93-4733AWJAASRPVLRRVGFEIPKMDGFSXDWjkixdajp ClinicStart: 77-03-0487Ugczakmqnko [facility]: 73-74-6446Lpzsjscym for malignant neoplasm of breast Mammogram ScreeningPrem[facility]: 65-64-7184Hieux microalbumin profile [facility]: 17-42-4634Pujrynj ScreeningAnxiety ScreeningPrem[facility]: 18-49-7563Unllelefez ScreeningDepression ScreeningUniversity Hospitals [facility] Start: 60-91-7108HMDDTFYZL C SCREENINGHEPATITIS C SCREENINGUniversity Hospitals [facility] Start: 27-35-1011Sqqqllvoo C screeningHepatitis C ScreeningUniversity Hospitals Cleveland Medical Center Start: 56-62-1251Novzylrcbnon Vaccine: 65+ (1 - PCV)Pneumococcal Vaccine: 65+ (1 - PCV)[facility]: 34-86-0608Nqxspxufnofe Vaccine: 65+ (1 of 2 - PCV) Pneumococcal Vaccine: 65+ (1 of 2 - PCV)[facility]: 1961 Pneumococcal Vaccine: 65+ Years (1 of 2 - PCV)Pneumococcal Vaccine: 65+ Years (1 of 2 - PCV)[facility] HealthcareStart: 45-62-8364KRLWQHIWEHUS: 65+ (1 - PCV) PNEUMOCOCCAL: 65+ (1 - PCV)[facility]: 25-87-8474ZYOPY-19 VACCINE (#1)COVID-19 VACCINE (#1)[facility]: 24-05-7878Mgyangxww for malignant neoplasm of colonNOMS Healthcare End: 72-03-8728AGZ W Auto Differential panel - BloodCBC + DIFF Lab Routine Megaloblastic anemia due to vitamin B12 deficiency Anemia, unspecified type Once per month for 12 Occurrences starting 06/05/2023 until [facility] Work Phone: Comment on above:Once per month for 12 Occurrences starting 06/05/2023 until 06/04/2024 End: 47-64-2129POD W Auto Differential panel - BloodCOMPLETE BLOOD COUNT AND DIFFERENTIAL Lab Routine Megaloblastic anemia due to vitamin B12 deficiency Every 6 weeks for 9 Occurrences starting 03/23/[address] [place] [address] Work Phone: Comment on above:Every 6 weeks for 9 Occurrences starting 03/23/2024 until 03/23/2025 End: 97-83-1330QRU W Auto Differential panel - BloodCOMPLETE BLOOD COUNT AND DIFFERENTIAL Lab Routine Megaloblastic anemia due to vitamin B12 deficiency Every 3 months for 4 Occurrences starting 09/07/2024 until 09/07/2025[facility] Work Phone: Comment on above:Every 3 months for 4 Occurrences starting 09/07/2024 until 09/07/2025 End: 87-83-3735Rdmefmjpl (Vitamin B12) [Mass/volume] in Serum or PlasmaVITAMIN B12 BLOOD Lab Routine Megaloblastic anemia due to vitamin B12 deficiency Anemia, unspecified type Once per month for 12 Occurrences starting 06/05/2023 until 06/04/2024[facility] Work Phone: Comment on above:Once per month for 12 Occurrences starting 06/05/2023 until 06/04/2024 End: 27-53-8378Dnswaudtr (Vitamin B12) [Mass/volume] in Serum or PlasmaVITAMIN B12 Lab Routine Megaloblastic anemia due to vitamin B12 deficiency Every 6 weeks for 9 Occurrences starting 03/23/2024 until 03/23/2025[facility] CampusComment on above:Every 6 weeks for 9 Occurrences starting 03/23/2024 until 03/23/2025 End: 96-39-6538Mzmuhahui (Vitamin B12) [Mass/volume] in Serum or PlasmaVITAMIN B12 Lab Routine Megaloblastic anemia due to vitamin B12 deficiency Every 3 months for 4 Occurrences starting 09/07/2024 until 09/07/2025[facility] Comment on above:Every 3 months for 4 Occurrences starting 09/07/2024 until 09/07/2025 End: 50-71-0412Zqsonjlqpsejh metabolic 2000 panel - Serum or PlasmaCOMP METABOLIC PANEL Lab Routine Megaloblastic anemia due to vitamin B12 deficiency Anemia, unspecified type Once per month for 12 Occurrences starting 06/05/2023 until 06/04/2024[facility] Work Phone: Comment on above:Once per month for 12 Occurrences starting 06/05/2023 until 06/04/2024 End: 23-04-4466Ffiywkivyndcf metabolic 1999 panel - Serum or PlasmaCOMPREHENSIVE METABOLIC PANEL Lab Routine Megaloblastic anemia due to vitamin B12 deficiency Every 6 weeks for 9 Occurrences starting 03/23/2024 until 03/23/2025[facility] hospital[facility] ClinicComment on above:Every 6 weeks for 9 Occurrences starting 03/23/2024 until 03/23/2025 End: 43-74-8169Gdftgglkzvnev metabolic 1999 panel - Serum or PlasmaCOMPREHENSIVE METABOLIC PANEL Lab Routine Megaloblastic anemia due to vitamin B12 deficiency Every 3 months for 4 Occurrences starting 09/07/2024 until 09/07/2025[facility] hospital[facility] ClinicComment on above:Every 3 months for 4 Occurrences starting 09/07/2024 until 09/07/2025T Abdomen W contrast [facility]EC[facility] COMPLETE ECG 07/31/2023 3:22 PM [facility] End: 91-38-7007Soarbath [Mass/volume] in Serum or PlasmaFERRITIN BLD Lab Routine Megaloblastic anemia due to vitamin B12 deficiency Anemia, unspecified type Once per month for 12 Occurrences starting 06/05/2023 until 06/04/2024[facility] Work Phone: Comment on above:Once per month for 12 Occurrences starting 06/05/2023 until 06/04/2024 End: 08-76-0278Ozmoslub [Mass/volume] in Serum or PlasmaFERRITIN Lab Routine Megaloblastic anemia due to vitamin B12 deficiency Every 6 weeks for 9 Occurren jose cruz starting 03/23/2024 until 03/23/2025[facility] ClinicComment on above:Every 6 weeks for 9 Occurrences starting 03/23/2024 until 03/23/2025 End: 24-89-8830Ghmjlrbq [Mass/volume] in Serum or PlasmaFERRITIN Lab Routine Megaloblastic anemia due to vitamin B12 deficiency Every 3 months for 4 Occurre nces starting 09/07/2024 until 09/07/2025[facility] ClinicComment on above:Every 3 months for 4 Occurrences starting 09/07/2024 until 09/07/2025 End: 03-77-4934Lzesty [Mass/volume] in Serum or PlasmaFOLATE SERUM Lab Routine Megaloblastic anemia due to vitamin B12 deficiency Anemia, unspecified type Once per month for 12 Occurrences starting 06/05/2023 until 06/04/2024[facility] Work Phone: Comment on above:Once per month for 12 Occurrences starting 06/05/2023 until 06/04/2024 End: 39-46-5340Rscvln [Mass/volume] in Serum or PlasmaFOLATE, SERUM Lab Routine Megaloblastic anemia due to vitamin B12 deficiency Every 6 weeks for 9 Occ urrences starting 03/23/2024 until 03/23/2025[facility] ClinicComment on above: Every 6 weeks for 9 Occurrences starting 03/23/2024 until 03/23/2025 End: 64-26-4774Gnwjzn [Mass/volume] in Serum or PlasmaFOLATE, SERUM Lab Routine Megaloblastic anemia due to vitamin B12 deficiency Every 3 months for 4 Oc currences starting 09/07/2024 until 09/07/2025[facility] ClinicComment on above: Every 3 months for 4 Occurrences starting 09/07/2024 until 09/07/2025 End: 80-36-7014Spct and Iron binding capacity panel - Serum or PlasmaIRON + TIBC Lab Routine Megaloblastic anemia due to vitamin B12 deficiency Anemia, unspecified typeOnce per month for 12 Occurrences starting 06/05/2023 until 06/04/2024[facility] Work Phone: Comment on above:Once per month for 12 Occurrences starting 06/05/2023 until 06/04/2024 End: 58-07-2935Uano and Iron binding capacity panel - Serum or PlasmaIRON AND TIBC Lab Routine Megaloblastic anemia due to vitamin B12 deficiency Every 6 weeks for 9 Occurrences starting 03/23/2024 until 03/23/2025[facility] Comment on above:Every 6 weeks for 9 Occurrences starting 03/23/2024 until 03/23/2025 End: 24-91-1238Yvnx and Iron binding capacity panel - Serum or PlasmaIRON AND TIBC Lab Routine Megaloblastic anemia due to vitamin B12 deficiency Every 3 months for 4 Occurrences starting 09/07/2024 until 09/07/2025[facility] Comment on above:Every 3 months for 4 Occurrences starting 09/07/2024 until 09/07/2025MR Abdomen WO and W contrast [facility] EducationFatigueMer[facility] Work Phone: [facility] referralMer[facility] Work Phone: [facility] Immunizations Immunization DateImmunizationNotesCare [id number] vaccine, liveMaher SALAM [phone]-KboszOhiohealth [facility] NEGATED: Highlighted row has not occurred!10-10-2023 influenza virus vaccine, unspecified formulationBeth Manfred [phone]-BdprcOhiohealth Nelsonville [facility] Center Digestive HealthNEGATED: Highlighted row has not occurred!11-95-6530owvhnzwpi virus vaccine, unspecified formulationBeth Manfred [phone]-CbvkoOhiohealth [facility] Digestive HealthNEGATED: Highlighted row has not occurred!19-67-5536cylulgcxb virus vaccine, unspecified formulationBeth Manfred [phone]-YsyerOhiohealth [facility] Digestive HealthNEGATED: Highlighted row has not occurred!34-43-8777posdxrxza virus vaccine, unspecified formulationBeth Manfred [phone]-DcnopOhiohealth Nelsonville [facility] Center Digestive HealthNEGATED: Highlighted row has not occurred!09-20-1936ktknbidsf virus vaccine, unspecified formulationBeth Manfred [phone]-JcoksOhiohealth [facility] Digestive HealthNEGATED: Highlighted row has not occurred!77-76-1205upvvunpca virus vaccine, unspecified formulationMaher SALAM [phone]-NsxyhOhiohealth [facility] Payers DatePayer CategoryPayerPolicy [id number] Health Insurance [id number] [id number] 2018Medicare [id number] [id number] 1960 [id number] 2..840.1.766569.3.579.2.593 [id number] 2.0.1.845711.3.57[id number] 2..840.1.992845.3.57[id number] 2..840.1.527844.3.57[id number] 2.16.840.1.467535.3.57[id number] 2.16.840.1.557292.3.57[id number] 2.16.840.1.094333.3.57[id number] 2.16.840.1.296129.3.57[id number] 2.16840.1.696909.3.579.[id number] 2.0.1.331131.3.57[id number] 2.0.1.279901.3.57[id number] 2.160.1.432807.3.57[id number] 2.0.1.944681.3.57[id number] 2..1.617076.3.57[id number] 2..1.887284.3.579.2.704776-52-9298Iwqvkpy9440017 2.0.1.433772.3.57[id number] 2.0.1.559732.3.57[id number] 2..1.592199.3.57[id number] 2..1.170832.3.57[id number] 2..1.918003.3.579.2.157503-91-9698Bhvmirp6610831 2.0.1.964083.3.579.[id number] 2.0.1.914364.3.579.2.725790-08-4668Zrmoyox0032182 2.16.840.1.471556.3.579.2.936507-04-5043Liexksm0187520 2.16.840.1.589804.3.579.2.[id number] 2.16.840.1.492056.3.579.2.1259UnknownParamount [id number] njvhp4n1-1g37-77hw-[id number] 2.16.840.1.282[id number] 2.16.840.1.523594.3.579.2.531 Social History DateTypeDetailFacilityStart: 01-25-2022 End: 98-93-1021Mezvp tobacco smoker (finding)[facility] Comment on above:has quit off and on during those 30 yearshas quit off and on during those 30 yearsStart: 02-21-2023 End: 27-80-1194VhbndzFhrdbhSt. Rita's Hospital [facility] Start: 11-05-2018 End: 03-36-1243Qsoazdy smoking statusNeFairfield Medical CenterComment on above:has quit off and on during those 30 yearsStart: 03-13-2023 End: 69-78-4821Nijhfzq smoking status NHISSmokes tobacco dailyUniversity Hospitals Cleveland Medical Center History of tobacco usePassive smokerPremier Health Miami Valley Hospital Northtart: 03-13-2023 End: 29-19-1016Mhajobs use and exposureSmokeless tobacco non-userPremier Health Miami Valley Hospital Northtart: 03-13-2023 End: 11-48-8638Odhaxrq intakeEx-drinker (finding)[facility]: 02-21-2023 End: 73-89-6063Iwupipd of Social functionPremier Health Miami Valley Hospital Northtart: 03-13-2023 Tobacco CommentvapesPremier Health Miami Valley Hospital Northtart: 36-44-4009Mhcjsmd Commentsocially [facility]htart: 11-21-1413Qga Assigned At BirthNot on filePremier Health Miami Valley Hospital Northtart: 07-31-2023 End: 36-32-0194Moninvn smoking status NHISCurrent some day smokerNewark Hospitaltart: 08-99-0176Ofd Assigned At BirthFemalBellevue Hospitaltart: 03-23-2024 End: 33-97-7136Piwnqna smoking status NHISEx-smokerUniversity Hospitals Cleveland Medical CenterHistory of tobacco useCurrent smokerUniversity Hospitals Cleveland Medical CenterHistory of tobacco useCigarette Smoker [facility] Medical CenterWithin the last year, have you been afraid of your partner or ex-partner?NoNOMS HealthcareHow often to you have a drink containing alcohol? Monthly or lessNOMS HealthcareHow many standard drinks containing alcohol do you have on a typical day?1 or 2NOMS HealthcareDo you feel stress - tense, restless, nervous, or anxious, or unable to sleep at night because yourmind is troubled all the time - these days [OSQ]Only a littleNOMS Healthcare(I/We) worried whether (my/our) food would run out before (I/we) got money to buy more. Never trueNOMS HealthcareStart: 59-97-7294Wbndyss Kdfomzu59-95 cigs/dayNOMS HealthcareStart: 08-28-6529Uragzvr CommentCaffeine intake:more than 4 cups per day, sodaNOMS HealthcareStart: 49-82-4857BxrLaazop (finding)[facility] Goals DatePatient GoalDesired Activity/StatePersonal health goal Functional Status ZewqUxwlknekvtXugghpSmovcqdb43-39-0179Bgvfxnw Health Questionnaire 2 item (PHQ- 2) [Reported][facility] CenterLttjgihamo66-88-9772Tyapebm Health Questionnaire 2 item (PHQ- 2) [Reported][facility] CenterDiapyljbrf19-23-8164Uogiatarjc StatusN/[facility] Digestive Umwnoe80-20-3169Conkayd Health Questionnaire 2 item (PHQ-2) [Reported][facility] CenterNavggkwlcy29-47-4586Kxnxyahyel StatusN/[facility]ive Rrpolk61-83-3436Lvkctmbwyb StatusN/[facility] Aghtlo54-61-8095Gonblqiebb StatusN/[facility]ive Tqdzyv27-50-9051Lvpsvzmsyr StatusN/[facility] Rkrkpy49-25-9755Utraiduimy StatusN/[facility] Eylgam81-46-7657Mgrctipnvj StatusN/[facility]ive Wxgxes98-24-9395Uceibvixdn StatusN/[facility]ive Wgzfno76-55-3724Ihqfqfmdtt StatusN/[facility]ive Vbnves49-87-9612Doufcfrvjb StatusN/[facility] Health [facility] Clinical Notes 12-01-2021 to 06-17-2025 Note Date & BdfsYtjeTlsdiulp23-26-8018 NoteHNO ID: [id number] Author: SHIRLEY PIERRE MA Service: ? Author Type: Slag Expander Type: Progress Notes Filed: 06/17/2025 15:03 Note Text: Patient Identification confirmed: yes. Injection given and documented on OCT per provider order. [facility]08-26-2025 NoteHNO ID: [id number] Author: SHIRLEY PIERRE MA Service: ? Author Type: Slag Expander Type: Progress Notes Filed: 04/20/2025 14:12 Note Text: Patient Identification confirmed: yes. Injection given and documented on OCT per provider order. Shirley [facility]07-28-2025 NoteHNO ID: [id number] Author: SHIRLEY PIERRE MA Service: ? Author Type: Slag Expander Type: Progress Notes Filed: 03/22/2025 13:56 Note Text: Patient Identification confirmed: yes. Injection given and documented on MAR per provider order. [facility]06-30-2025 NoteHNO ID: [id number] Author: ONIEL PRESCOTT MA Service: ? Author Type: Slag Expander Type: Progress Notes Filed: 02/22/2025 15:10 Note Text: Patient Identification confirmed: yes. Injection given and documented on OCT per provider order. Oniel Precsott [facility]06-30-2025 History of Present illness Narrative* Oniel Prescott MA - 02/22/2025 3:09 PM EDT Patient Identification confirmed: yes. Injection given and documented on OCT per provider order. Oniel Prescott MA documented in this encounterUniversity Hospitals Cleveland Medical Center06-30-2025 NoteHNO ID: [id number] Author: KIM HENRY APRN.[employer]PER[employer] Service: ? Author Type: Nurse Practitioner Type: Progress Notes Filed: 02/22/2025 16:26 Note Text: NAME: Ivonne Cespedes [facility] NO.: [id number] DATE OF SERVICE: .February 22, 2025 (Joel) Some elements in this clinic note that are critical to medical decision making have been carefully reviewed and included from a prior clinic note dated: September 07, 2024 (Martín) Referring Provider: Rosa Shearer Additional Clinicians involved in Ivonne Cespedes's care: DIAGNOSIS: B12 deficiency History of right breast DCIS CASE SUMMARY / ASSESSMENT: 69 year old woman with DCIS diagnosed approximately [...] negative. Continue B12 replacement intramuscularly every month. SUMMARIZED PLAN: Triage to call results of iron studies B12 shot today and q 4 weeks Repeat labs q 12 weeks RTC in 24 weeks AI ASSISTED A/P: CASE HISTORY: Reverse Chronological Order 09/07/2024 - CBC: 6.35 > 12.7 / 39.4 < 189 Iron studies in process 06/15/2024 - CBC: 6.01 > 12.9 / 38.8 < 213 Ferritin: 51.5, TIBC: 312, Transferrin Saturation: 12.5, Vitamin B12: 552, Folate: 17.7 03/23/2024 - CBC: 6.57 > 12.7 / 40.2 < 196 Ferritin: 26.7, TIBC: 370, Transferrin Saturation: 25.1, Vitamin B12: 428, Folate: 11.8 12/05/2023 - CBC: 6.31 > 13.0 / 40.7 < 193 Ferritin: 18.2, TIBC: 384, Transferrin Saturation: 12.8, Vitamin B12: 405, Folate: 10.2 06/06/2023 - Mammogram: Category 2 benign 02/13/2023 - B12 level 144 11/01/2022 - CBC 5.7 > 13.5/41.6 < 218 normal differential. 03/2022 - FibroScan F0-F1 no steatosis. 01/2022 - CT A/P at [facility] hepatomegaly with hepatic steatosis. 06/2021 - CT A/P right retrocrural lymph node. 11/25/2018 - Right breast lumpectomy Dr. 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 10/27/2018 - Biopsy showed ductal carcinoma in situ high nuclear grade. The estrogen receptor was positive at 10-20% with progesterone receptor negative DCIS Right Breast - [facility] 10/22/2018 - Mammogram showing suspicious changes in the right breast. grouping of numerous pleomorphic calcifications within the posterior upper inner quadrant. HPI: Updated Visit, February 22, 2025: Ivonne returns today for a follow-up visit. she was recently diagnosed by her physician with fibromyalgia and taking Cymbalta. She expressed that she has been extremely tired. She is uncertain if the Cymbalta is working. She attends physical therapy for neck pain and recently developed knee pain. She denies any fever, chills or bleeding and reports eating well. Recent labs reported showed normal hemoglobin and iron levels Updated Visit, September 07, 2024: Ivonne returns for a follow up. She is not anemic today, results of iron studies are in process. Will continue B12 injections given prior deficiency. She reports she was diagnosed with fibromyalgia. Updated Visit, March 23, 2024: Ivonne returns [...] Visit, June 05, 2023: Mammogram done in [place] yesterday Was told she has pancreatic insufficiency B12 levels remain low. Initial Visit, March 13, 2023: Ivonne Cespedes presents today for a Hematology and Oncology evaluation. 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 [...] HPI and otherwise negative by full review (more content not included)... [facility]06-30-2025 History of Present illness Narrative* Kim Henry APRN.SUPER[employer] - 02/22/2025 2:29 PM EDT Images from the original note were not included. NAME: Ivonne Cespedes CLINIC NO.: [id number] DATE OF SERVICE: .February 22, 2025 (Joel) Some elements in this clinic note that are critical to medical decision making have been carefully reviewed and included from a prior clinic note dated: September 07, 2024 (Martín) Referring Provider: Rosa Shearer Additional Clinicians involved in Ivonne Cespedes's care: DIAGNOSIS: B12 deficiency History of right breast DCIS CASE SUMMARY / ASSESSMENT: 69 year old woman with DCIS diagnosed approximately 4 years ago in October2018 status post lumpectomy and radiation but no endocrine therapy for chemoprevention. I will try to discuss this with her again at the next visit. However, it is unlikely to help her this far out from primary therapy. She is referred for persistent B12 deficiency and likely has pernicious anemia. Intrinsic factor antibodies were negative. Continue B12 replacement intramuscularly every month. SUMMARIZED PLAN: Triage to call results of iron studies B12 shot today and q 4 weeks Repeat labs q 12 weeks RTC in 24 weeks AI ASSISTED A/P: CASE HISTORY: Reverse Chronological Order 09/07/2024 - CBC: 6.35 > 12.7 / 39.4 < 189 Iron studies in process 06/15/2024 - CBC: 6.01 > 12.9 / 38.8 < 213 Ferritin: 51.5, TIBC: 312, Transferrin Saturation: 12.5, Vitamin B12: 552, Folate: 17.7 03/23/2024 - CBC: 6.57 > 12.7 / 40.2 < 196 Ferritin: 26.7, TIBC: 370, Transferrin Saturation: 25.1, Vitamin B12: 428, Folate: 11.8 12/05/2023 - CBC: 6.31 > 13.0 / 40.7 < 193 Ferritin: 18.2, TIBC: 384, Transferrin Saturation: 12.8, Vitamin B12: 405, Folate: 10.2 06/06/2023 - Mammogram: Category 2 benign 02/13/2023 - B12 level 144 11/01/2022 - CBC 5.7 > 13.5/41.6 < 218 normal differential. 03/2022 - FibroScan F0-F1 no steatosis. 01/2022 - CT A/P at [facility] hepatomegaly with hepatic steatosis. 06/2021 - CT A/P right retrocrural lymph node. 11/25/2018 - Right breast lumpectomy Dr. 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 10/27/2018 - Biopsy showed ductal carcinoma in situ high nuclear grade. The estrogen receptor was positive at 10-20% with progesterone receptor negative DCIS Right Breast - [facility] 10/22/2018 - Mammogram showing suspicious changes in the right breast. grouping of numerous pleomorphic calcifications within the posterior upper inner quadrant. HPI: Updated Visit, February 22, 2025: Ivonne returns today for a follow-up visit. she was recently diagnosed by her physician with fibromyalgia and taking Cymbalta. She expressed that she has been extremely tired. She is uncertain if the Cymbalta is working. She attends physical therapy for neck pain and recently developed knee pain. She denies any fever, chills or bleeding and reports eating well. Recent labs reported showed normalhemoglobin and iron levels Updated Visit, September 07, 2024: Ivonne returns for a follow up. She is not anemic today, results of iron studies are in process. Will continue B12 injections given prior deficiency. She reports she was diagnosed with fibromyalgia. Updated Visit, March 23, 2024: Ivonne returns [...] Visit, June 05, 2023: Mammogram done in [place] yesterday Was told she has pancreatic insufficiency B12 levels remain low. Initial Visit, March 13, 2023: Ivonne Cespedes presents today for a Hematology and Oncology evaluation. She is a 67 year old femalewho has a history of DCIS of the Right breast, UIQ, pathologic stage 0, ER-positive and FL-negative, s/p partial mastectomy and subsequent radiation therapy. Additionally has a history of pancreatic insufficiency requiring Creon and fatty liver disease withIBS diarrhea. She has known vitamin B12 deficiency [...] PERFORMANCE STATUS: 0 PHYSICAL EXAMINATION: Vitals: BP 143/91 Pulse 81 Temp (Src) 97.4 (Temporal) Resp 16 SpO2 91% There is no height or weight on file to calculate BSA. Exam limited to gross visualization where appropriate. [...] Right breast: scar 1 o'clock - well healed,no sign of recurrence, red mole on nipple. Left breast is normal. Rosa exam is negative bilaterally. ALLERGIES: ALLERGIES Allergen Reactions Bupropion Shortness of Breath Zyban [Bupropion Hc* Shortness of Breath MEDICATIONS: DULoxetine (CYMBALTA) 60 mg capsule^Take 60 mg by mouth two times a day.^Disp: ^Rfl: levothyroxine (SYNTHROID) 50 mcg tablet^Take 50 mcg by mouth once daily. 75mcg 2 days a week^Disp: ^Rfl: enzymes,digestive (DIGESTIVE ENZYMES ORAL)^Take by mouth.^Disp: ^Rfl: loperamide (IMODIUM) 2 mg cap(s)^every other day.^Disp: ^Rfl: 2 sertraline (ZOLOFT) 25 mg tablet^Take 25 mg by mouth once daily.^Disp: ^Rfl: calcium carbonate (CALCIUM 500 ORAL)^Take by mouth.^Disp: ^Rfl: Cholecalciferol, Vitamin D3, (VITAMIN D) 1,000 unit cap^Take 1,000 Units by mouth once daily.^Disp:^Rfl: LABORATORY VALUES: WBC (k/uL) Date Value 02/22/2025 5.30 RBC (m/uL) Date Value 02/22/2025 4.39 Hemoglobin (g/dL) Date Value 02/22/2025 12.7 Hematocrit (%) Date Value 02/22/2025 38.6 MCV (fL) Date Value 02/22/2025 87.9 MCH (pg) Date Value 02/22/2025 28.9 MCHC (g/dL) Date Value 02/22/2025 32.9 RDW-CV (%) Date Value 02/22/2025 14.1 Platelet Count (k/uL) Date Value 02/22/2025 200 MPV (fL) Date Value 02/22/2025 9.1 Glucose (mg/dL) Date Value 02/22/2025 115 (H) BUN (mg/dL) Date Value 02/22/2025 15 Creatinine (mg/dL) Date Value 02/22/2025 0.69 Sodium (mmol/L) Date Value 02/22/2025 141 Potassium (mmol/L) Date Value 02/22/2025 4.0 Chloride (mmol/L) Date Value 02/22/2025 104 CO2 (mmol/L) Date Value 02/22/2025 26 Protein, Total (g/dL) Date Value 02/22/2025 6.9 Albumin (g/dL) Date Value 02/22/2025 4.0 Calcium, Total (mg/dL) Date Value 02/22/2025 9.7 Alkaline Phosphatase (U/L) Date Value 02/22/2025 68 Bilirubin, Total (mg/dL) Date Value 02/22/2025 0.2 AST (U/L) Date Value 02/22/2025 19 ALT (U/L) Date Value 02/22/2025 16 DIAGNOSIS: (R53.82) Chronic fatigue (primary encounter diagnosis) (D64.9) Anemia, unspecified type PAST MEDICAL HISTORY Diagnosis Date Arthritis B12 [...] Diabetes Mother Heart disease Mother Emphysema Father . Kim Henry APRN, SPECK DYER-C, O[facility] Hematology [facility] Oncology Services Provided at: [place], [place] CC: Rosa Shearer [address] [facility] [address] [address] [facility] [address] [facility] [id number] documented in this encounterUniversity Hospitals Cleveland Medical Center06-03-2025 History of Present illness Narrative* DARLENE Lucas - 01/26/2025 1:30 PM EDT Images from the original note were not included. Subjective Patient ID: Ivonne Cespedes is a 69 y.o. female who presents [...] Prior to Visit Medication Sig Dispense Refill Ljlsaco-Zksfutdlxi-Lfwqmmt D (CALCIUM GUMMIES PO) Take 2 each [...] hemilaminotomy and discectomy Dr. Aquino SPINE SURGERY 2019 TOTAL VAGINAL HYSTERECTOMY 2007 TUBAL LIGATION 1985 Visit Vitals BP 112/78 Pulse 82 Resp 16 Ht 5' 1 Wt 130 lb 12.8 oz SpO2 99% BMI 24.71 kg/m Smoking Status Every Day BSA 1.6 m Review of Systems Constitutional: Positive for fatigue. [...] major depressive disorder, in partial remission (HCC) ([facility]) If doing well in 1-2 weeks of [...] Visit, Medication Follow Up. documented in this encounterMissouri Baptist Medical CenterZcxqnuwykg89-57-2326 History of Present illness Narrative* Oniel Prescott MA - 01/25/2025 2:37 PM EDT Patient Identification confirmed: yes. Injection given and documented on OCT per provider order. Oniel Prescott MA documented in this encounterUniversity Hospitals Cleveland Medical Center06-02-2025 NoteHNO ID: [id number] Author: ONIEL PRESCOTT MA Service: ? Author Type: Slag Expander Type: Progress Notes Filed: 01/25/2025 14:43 Note Text: Patient Identification confirmed: yes. Injection given and documented on OCT per provider order. Oniel Prescott [facility]06-01-2025 History of Present illness Narrative* Cristiane Duckworth MD - 02/10/2025 1:00 PM EDT Ivonne Cespedes is a 69 y.o. female No ref. provider found presents with chief complaint of Thyroid Problem and Follow-up (LAB) HPI: 01/2025 History of Present Illness The patient is a 69-year-old female who presents for follow-up on thyroid. She has been adhering to her prescribed regimen of 50 mcg 5 days a week and 75 mcg 2 days a week, specifically on Mondays and . She reports that she has an adequate supply of her medication and does not require a new prescription at this time. Results Laboratory Studies TSH 2.914. Free T3 1.23 (0.76-1.46). Free T4 2.66 (0.18-3.98). IM 01/2024 follow up visit on 02/12/2024 TSH 2.23, FT4 1.1 (0.76-1.46), FT3 2.53 (2.18-3.98) on levothyroxine 50 mcg 5 days a week and 75 mcg 2 days a week. IM 07/2023 follow up visit on 08/14/2023 TSH 6.53, T4 9 (5-11), on levothyroxine 50 mcg daily IM 10/2022 follow up visit on 11/12/2022 TSH 4.79, FT4 1.1 (0.8-1.8), FT3 3.1 (2.3-4.1). 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 She is on thyroid for almost nine months. Ultrasound done. Right lobe 5.3 x 2.7 x 2, left lobe 4.6 x 3.5 x 2.2, heterogeneous, hypervascular, no nodules. Labs in June 2022. TPO 353, Tg antibody 361, free T4 1.26 (0.76- 1.46), TSH 1.37, free T3 2.57 (2.18-3.98). In March 2022, TSH 2.5. Currently she has 100 mcg tablet but she is cutting it in half, using 50 since almost one month. SUBJECTIVE: MEDICATIONS: Current Outpatient Medications Medication Instructions Rvadikp-Evtoehisqg-Eyeletd D (CALCIUM GUMMIES PO) 2 each, Daily PRN cyanocobalamin (Vitamin B-12) 1000 MCG/ML injection diphenoxylate-atropine (Lomotil) 2.5-0.025 MG tablet 2 tablets, Twice a day (mid-day and evening) DULoxetine (CYMBALTA) 60 mg, Oral, 2 times daily, Do not crush or chew. levothyroxine (SYNTHROID, LEVOXYL) 50 mcg, Daily before breakfast Probiotic Product (ALIGN PO) 1 tablet, Daily Prolia 60 mg sertraline (ZOLOFT) 50 mg, Oral, Daily tiZANidine (ZANAFLEX) 4 mg, Oral, Every 8 hours PRN ALLERGIES: Allergies Allergen Reactions Barium Sulfate Nausea And Vomiting Bupropion Unknown and Other Past Medical History: Diagnosis Date Abnormal mammogram 10/20/2019 Category 4 Arthritis ? Autoimmune thyroiditis Diverticulosis Ductal carcinoma in situ of breast H/O CT scan 06/26/2021 Ct scan enlarged right retrocrural lymph node. Diverticulosis H/O CT scan 10/24/2021 CT scan of lung was benign findings category 2 H/O CT scan 02/02/2022 CT scan of Abdomen: Hepatomegaly with hepatic steatosis. Extensive colonic diverticulosis without evidence of acute diverticulitis IBS (irritable bowel syndrome) Obstructive chronic bronchitis with exacerbation (HCC) Urinary tract infection January 2023 Visit for [...] 2018 TOTAL VAGINAL HYSTERECTOMY 2007 TUBAL LIGATION 1984 REVIEW OF SYMPTOMS: 14 POINT OF SYSTEM REVIEWED AND NEGATIVE OBJECTIVE: Visit Vitals BP 118/80 Pulse 85 Resp 18 Ht 5' Wt 130 lb SpO2 97% BMI 25.39 kg/m Smoking Status Every Day BSA 1.58 m Physical Exam Constitutional: Appearance: Normal appearance. She is normal weight. HENT: Head: Normocephalic and atraumatic. Right Ear: External ear normal. Nose: Nose normal. Mouth/Throat: Pharynx: Oropharynx is clear. Eyes: Extraocular Movements: Extraocular movements intact. Pupils: Pupils are equal, round, and reactive to light. Cardiovascular: Rate and Rhythm: Normal rate and regular rhythm. Pulmonary: Effort: Pulmonary effort is normal. Abdominal: General: Abdomen is flat. Palpations: Abdomen is soft. Musculoskeletal: General: Normal range of motion. Skin: General: Skin is warm. Neurological: General: No focal deficit present. Mental Status: She is alert. Psychiatric: Mood and Affect: Mood normal. Behavior: Behavior normal. ASSESSMENT AND PLAN: Assessment/Plan Diagnoses and all orders for this visit: Porfirio's disease - T3, free; Future - T4, free; Future - TSH; Future Goiter Vitamin D deficiency Assessment & Plan 1. Thyroid disorder. Her thyroid function tests are within normal limits, indicating effective management of her condition. She will maintain her current medication regimen of 50 mcg 5 days a week and 75 mcg 2 days a week (Saturday and ). No changes to the prescription are needed at this time. Follow-up The patient will follow up in 1 year with blood work. documented in this encounterMissouri Baptist Medical [id number] NoteHNO ID: [id number] Author: SHIRLEY PIERRE MA Service: ? Author Type: Slag Expander Type: Progress Notes Filed: 12/28/2024 14:15 Note Text: Patient Identification confirmed: yes. Injection given and documented on OCT per provider order. Shirley Pierre [facility]04-14-2025 History of Present illness Narrative* Nurys Boggs MD - 12/07/2024 10:47 AM EDTAssociated Problem(s): Acute strain of neck muscle I discussed with patient that while on prednisone, do not take any NSAIDs like Ibuprofen, Naprosyn,Alleve or motrin. Watch for any side effects like abdominal pain and nausea. Take the prednisone with food or milk. Prednisone may increase appetite. While on prednisone, watch for any sugar elevations. * Nurys Boggs MD - 12/07/2024 10:15 AM EDT Images from the original note were not included. Subjective Patient ID: Ivonne Cespedes is a 69 y.o. female who presents for Neck Pain. PT Neck has been hurting on her left side up into her head and down into her upper chest area shoulder area This started two to three weeks ago , she did go see a chiropractor Then also she is complaining of her left hand and thumb hurting states she has been told it is arthritis, she has used otc med and creams nothing is working Neck Pain This is a new problem. The current episode started 1 to 4 weeks ago. The problem occurs constantly.The problem has been gradually worsening. Current Outpatient Medications on File Prior to Visit Medication Sig Dispense Refill Liontqa-Iqepjaccjj-Obelhdy D (CALCIUM GUMMIES PO) Take 2 each [...] BY MOUTH EVERY DAY 90 tablet 4 [DISCONTINUED] tiZANidine (Zanaflex) 4 MG tablet Take 1 tablet (4 mg) by mouth every 8 (eight) hours if needed for muscle spasms 30 tablet 2 No current facility-administered [...] Smokeless tobacco: Never Tobacco comments: 11-20 cigs/day Substance Use Topics Alcohol use: Not Currently [...] hemilaminotomy and discectomy Dr. Aquino SPINE SURGERY 2019 TOTAL VAGINAL HYSTERECTOMY 2007 TUBAL LIGATION 1985 Visit Vitals BP 100/72 Pulse 88 Ht 5' 1 Wt 129 lb SpO2 97% BMI 24.37 kg/m Smoking Status Every Day BSA 1.59 m Review of Systems Musculoskeletal: Positive for joint swelling and neck pain. Objective Physical Exam Constitutional: Appearance: Normal appearance. Musculoskeletal: Arms: Comments: Left thumb pain on palpation to left MCP Tight paracervical Neurological: Mental Status: She is alert. Assessment/Plan Problem List Items Addressed This Visit Back pain of lumbar region with sciatica Relevant Medications tiZANidine (Zanaflex) 4 MG tablet Fibromyalgia Relevant Orders Ambulatory referral to Rheumatology Acute strain of neck muscle - Primary I discussed with patient that while on prednisone, do not take any NSAIDs like Ibuprofen, Naprosyn,Alleve or motrin. Watch for any side effects like abdominal pain and nausea. Take the prednisone with food or milk. Prednisone may increase appetite. While on prednisone, watch for any sugar elevations. Relevant Medications predniSONE (Deltasone) 10 MG tablet Sprain of metacarpophalangeal joint of left thumb Relevant Orders XR hand 1 or 2 views left No follow-ups on file. documented in this encounterMissouri Baptist Medical [id number] NoteHNO ID: [id number] Author: PEPE YADAV MA Service: ? Author Type: Slag Expander Type: Progress Notes Filed: 11/30/2024 14:05 Note Text: Patient Identification confirmed: yes. Injection given and documented on OCT per provider order. Pepe Yadav [facility]04-07-2025 History of Present illness Narrative* Pepe Yadav MA - 11/30/2024 2:04 PM EDT Patient Identification confirmed: yes. Injection given and documented on OCT per provider order. Pepe Yadav MA documented in this encounterUniversity [facility]als [facility]04-01-2025 History of Present illness Narrative* Shirley Pierre MA - 12/28/2024 2:15 PM EDT Patient Identification confirmed: yes. Injection given and documented on MAR per provider order. Shirley Pierre MA documented in this [facility]04-01-2025 History of Present illness Narrative* Shirley Pierre MA - 03/22/2025 1:55 PM EDT Patient Identification confirmed: yes. Injection given and documented on MAR per provider order. Shirley Pierre MA documented in this [facility]04-01-2025 History of Present illness Narrative* Shirley Pierre MA - 04/20/2025 2:10 PM EDT Patient Identification confirmed: yes. Injection given and documented on MAR per provider order. Shirley Pierre MA documented in this [facility]03-10-2025 NoteHNO ID: [id number] Author: ONIEL PRESCOTT MA Service: ? Author Type: Slag Expander Type: Progress Notes Filed: 11/02/2024 14:27 Note Text: Patient Identification confirmed: yes. Injection given and documented on MAR per provider order. Oniel Prescott [facility]03-10-2025 History of Present illness Narrative* Oniel Prescott MA - 11/02/2024 2:26 PM EDT Patient Identification confirmed: yes. Injection given and documented on MAR per provider order. Oniel Prescott MA documented in this [facility]02-18-2025 NoteHNO ID: [id number] Author: SHIRLEY PIERRE MA Service: ? Author Type: Slag Expander Type: Progress Notes Filed: 10/13/2024 14:04 Note Text: Patient Identification confirmed: yes. Injection given and documented on MAR per provider order. [facility] History of Present illness Narrative* Shirley Pierre MA - 10/13/2024 2:03 PM EST Patient Identification confirmed: yes. Injection given and documented on MAR per provider order. Shirley Pierre MA documented in this encounterUniversity [facility]als [facility]01-23-2025 History of Present illness Narrative* Nurys Boggs MD - 09/17/2024 3:10 PM ESTAssociated Problem(s): Osteoporosis ([facility]) Reminded the patient how Prolia works in [...] or sooner should she have any concerns. * Nurys Boggs MD - 09/17/2024 3:00 PM EST Images from the original note were not included. HPI Osteoporosis Additional comments: This is a buy and bill Last edited by Darlene Louis MA on 09/17/2024 7:36 AM. Subjective Patient ID: Ivonne Cespedes is a 69 y.o. female who presents for Osteoporosis (This is a buy and bill ). Pt is here for her prolia inj. Given in her right arm Current Outpatient Medications on File Prior to Visit Medication Sig Dispense Refill Vmgjppe-Aumvvukusp-Iykfcnn D (CALCIUM GUMMIES PO) Take 2 each [...] Smokeless tobacco: Never Tobacco comments: 11-20 cigs/day Substance Use Topics Alcohol use: Not Currently Comment: Caffeine intake:more than 4 cups per day, soda Drug use: Not Currently Family History Problem Relation Name Age of Onset Diabetes Mother Dominga Wallace Heart disease Mother Dominga Wallace Arthritis Mother Dominga Wallace Emphysema Father Hypertension Sibling Cancer Sibling Cancer Sister Yvette Barrios Past Medical History: Diagnosis Date Abnormal mammogram 10/20/2019 Category 4 Arthritis ? Diverticulosis Ductal carcinoma in situ of breast H/O CT scan 06/26/2021 Ct scan enlarged right retrocrural lymph node. Diverticulosis H/O CT scan 10/24/2021 CT scan of lung was benign findings category 2 H/O CT scan 02/02/2022 CT scan of Abdomen: Hepatomegaly with hepatic steatosis. Extensive colonic diverticulosis without evidence of acute diverticulitis Obstructive chronic bronchitis with exacerbation (CMS/HCC) Urinary [...] 2007 TUBAL LIGATION 1985 Visit Vitals BP 128/88 Pulse 81 Ht 5' 1 Wt 127 lb SpO2 92% BMI 24.00 kg/m Smoking Status Every Day BSA 1.57 m Review of Systems Musculoskeletal: Positive for gait problem and joint swelling. Objective Physical Exam Constitutional: Appearance: Normal appearance. Musculoskeletal: Legs: Comments: Swelling and some abrasion Neurological: Mental Status: She is alert. Assessment/Plan Problem List Items Addressed This Visit Osteoporosis (CMS/HCC) Reminded the patient how Prolia works in [...] or sooner should she have any concerns. Relevant Medications denosumab (Prolia) injection 60 mg (Completed) Follow up in about 6 months (around 03/17/2025) for Prolia Inj. documented in this encounterMissouri Baptist Medical [id number] Telephone encounter Note* Telephone Encounter - Cely Finney - 09/09/2024 11:01 AM EST Patient has been scheduled and notified. Thanks! Cely Finney [facility]01-15-2025 Miscellaneous Notes* Telephone Encounter - Cely Finney - 09/09/2024 11:01 AM EST Patient has been scheduled and notified. Thanks! Cely Finney * Telephone Encounter - Michelle Shelton RN - 09/09/2024 10:08 AM EST Pt aware and agreeable to plan of care. Arcelia/Jo: pt left the other day d/t scheduling busy. Please call her to schedule appts per AVS below. Michelle Shelton RN * Telephone Encounter - Michelle Shelton RN - 09/09/2024 7:56 AM EST Images from the original note were not included. Maikel Lunsford MD P [facility] Triage Pool Iron studies are stable and no need for replacement, anemia is improved overall * Telephone Encounter - Cely Finney - 09/07/2024 3:25 PM EST Images from the original note were not included. Triage: Please see for results. Patient states at today's visit she will call to schedule her future appointments needed. Cely Finney documented in this encounterUniversity Hospitals [facility]01-15-2025 Telephone encounter Note * Telephone Encounter - Michelle Shelton RN - 09/09/2024 10:08 AM EST Pt aware and agreeable to plan of care. Arcelia/Jo: pt left the other day d/t scheduling busy. Please call her to schedule appts per AVS below. Michelle Shelton RN [facility]01-15-2025 Telephone encounter Note* Telephone Encounter - Michelle Shelton RN - 09/09/2024 7:56 AM EST Images from the original note were not included. Maikel Lunsford MD P [facility] Triage Pool Iron studies are stable and no need for replacement, anemia is improved overall [facility]01-13-2025 Telephone encounter Note* Telephone Encounter - Cely Finney - 09/07/2024 3:25 PM EST Images from the original note were not included. Triage: Please see for results. Patient states at today's visit she will call to schedule her future appointments needed. Cely Reg [facility]01-13-2025 NoteHNO ID: [id number] Author: DESIRAE SARGENT MA Service: ? Author Type: Slag Expander Type: Progress Notes Filed: 09/07/2024 14:34 Note Text: Patient Identification confirmed: yes. Injection given and documented on MAR per provider order. [facility]AV[facility]01-13-20[facility] History of Present illness Narrative* Desirae Sargent MA - 09/07/2024 2:34 PM EST Patient Identification confirmed: yes. Injection given and documented on MAR per provider order. Desirae Sargent MA documented in this encounterUniversity Hospitals [facility]01-13-2025 Instructions* Patient Instructions* Deborah Masters - 09/07/2024 2:24 PM EST Triage to call results of iron studies B12 shot today and q 4 weeks Repeat labs q 12 weeks RTC in 24 weeks documented in this encounterJoel Ville [address]-13-2025 History of Present illness Narrative* Maikel Lunsford MD - 09/07/2024 2:20 PM EST Images from the original note were not included. NAME: Ivonne Cespedes CLINIC NO.: [id number] DATE OF SERVICE: September 07, 2024 (Martín) Some elements in this clinic note that are critical to medical decision making have been carefully reviewed and included from a prior clinic note dated: March 23, 2024 (Martín) Referring Provider: Rosa Shearer Additional Clinicians involved in Ivonne Cespedes's care: DIAGNOSIS: B12 deficiency History of right breast DCIS ASSESSMENT: 69 year old woman with DCIS diagnosed approximately [...] Continue B12 replacement intramuscularly every month. PLAN: Triage to call results of iron studies B12 shot today and q 4 weeks Repeat labs q 12 weeks RTC in 24 weeks HPI: CASE HISTORY: Reverse Chronological Order 09/07/2024 - CBC: 6.35 > 12.7 / 39.4 < 189 Iron studies in process 06/15/2024 - CBC: 6.01 > 12.9 / 38.8 < 213 Ferritin: 51.5, TIBC: 312, Transferrin Saturation: 12.5, Vitamin B12: 552, Folate: 17.7 03/23/2024 - CBC: 6.57 > 12.7 / 40.2 < 196 Ferritin: 26.7, TIBC: 370, Transferrin Saturation: 25.1, Vitamin B12: 428, Folate: 11.8 12/05/2023 - CBC: 6.31 > 13.0 / 40.7 < 193 Ferritin: 18.2, TIBC: 384, Transferrin Saturation: 12.8, Vitamin B12: 405, Folate: 10.2 06/06/2023 - Mammogram: Category 2 benign 02/13/2023 - B12 level 144 11/01/2022 - CBC 5.7 > 13.5/41.6 < 218 normal differential. 03/2022 - FibroScan F0-F1 no steatosis. 01/2022 - CT A/P at [facility] hepatomegaly with hepatic steatosis. 06/2021 - CT A/P right retrocrural lymph node. 11/25/2018 - Right breast lumpectomy Dr. 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 10/27/2018 - Biopsy showed ductal carcinoma in situ high nuclear grade. The estrogen receptor was positive at 10-20% with progesterone receptor negative DCIS Right Breast - [facility] 10/22/2018 - Mammogram showing suspicious changes in the right breast. grouping of numerous pleomorphic calcifications within the posterior upper inner quadrant. Updated Visit, September 07, 2024: Ivonne returns for a follow up. She is not anemic today, results of iron studies are in process. Will continue B12 injections given prior deficiency. She reports she was diagnosed with fibromyalgia. Updated Visit, March 23, 2024: Ivonne returns [...] Visit, June 05, 2023: Mammogram done in [place] yesterday Was told she has pancreatic insufficiency B12 levels remain low. Initial Visit, March 13, 2023: Ivonne Cespedes presents today for a Hematology and Oncology evaluation. She is a 67 year old femalewho has a history of DCIS of the Right breast, UIQ, pathologic stage 0, ER-positive and FL-negative, s/p partial mastectomy and subsequent radiation therapy. Additionally has a history of pancreatic insufficiency requiring Creon and fatty liver disease withIBS diarrhea. She has known vitamin B12 deficiency [...] PERFORMANCE STATUS: 0 PHYSICAL EXAMINATION: Vitals: BP 115/74 Pulse 82 Temp (Src) 97.3 (Axillary) Resp 16 Ht 5' 0 (1.52m) Wt 130 lb 8.2 oz (59.2kg) SpO2 98% BMI 25.49 kg/(m^2). Body surface area is 1.58 meters squared. Exam limited to gross visualization [...] Right breast: scar 1 o'clock - well healed,no sign of recurrence, red mole on nipple. Left breast is normal. Rosa exam is negative bilaterally. ALLERGIES: ALLERGIES Allergen Reactions Bupropion Shortness of Breath Zyban [Bupropion Hc* Shortness of Breath MEDICATIONS: DULoxetine (CYMBALTA) 60 mg capsule Take 60 mg by mouth. levothyroxine (SYNTHROID) 50 mcg tablet Take 50 [...] daily. LABORATORY VALUES: WBC (k/uL) Date Value 09/07/2024 6.35 RBC (m/uL) Date Value 09/07/2024 4.51 Hemoglobin (g/dL) Date Value 09/07/2024 12.7 Hematocrit (%) Date Value 09/07/2024 39.4 MCV (fL) Date Value 09/07/2024 87.4 MCH (pg) Date Value 09/07/2024 28.2 MCHC (g/dL) Date Value 09/07/2024 32.2 RDW-CV (%) Date Value 09/07/2024 14.9 Platelet Count (k/uL) Date Value 09/07/2024 189 MPV (fL) Date Value 09/07/2024 9.3 Glucose (mg/dL) Date Value 09/07/2024 112 (H) BUN (mg/dL) Date Value 09/07/2024 17 Creatinine (mg/dL) Date Value 09/07/2024 0.70 Sodium (mmol/L) Date Value 09/07/2024 144 Potassium (mmol/L) Date Value 09/07/2024 4.1 Chloride (mmol/L) Date Value 09/07/2024 106 CO2 (mmol/L) Date Value 09/07/2024 26 Protein, Total (g/dL) Date Value 09/07/2024 6.9 Albumin (g/dL) Date Value 09/07/2024 4.0 Calcium, Total (mg/dL) Date Value 09/07/2024 9.7 Alkaline Phosphatase (U/L) Date Value 09/07/2024 64 Bilirubin, Total (mg/dL) Date Value 09/07/2024 0.2 AST (U/L) Date Value 09/07/2024 16 ALT (U/L) Date Value 09/07/2024 13 DIAGNOSIS: (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 Maikel Lunsford MD, CPE Hematology and Oncology Services Provided at: [facility], [place], [place] Scribe Attestation: This note was scribed by Deborah Masters on September 07, 2024 under the direction and supervision of Dr. Maikel Lunsford. I attest that all of the information documented is correct to the best of myknowledge. Provider Attestation: I, Maikel Lunsford MD, attest that all information documented by the above scribe is correct, and was supervised by me and under my direction. CC: Rosa Shearer [address] [facility] [address] Nurys Boggs [address] [facility] [address] [facility] [id number] documented in this encounterUniversity Hospitals [facility] Medical Center01-13-2025 NoteHNO ID: [id number] Author: MAIKEL LUNSFORD MD Service: ? Author Type: Physician Type: Progress Notes Filed: 09/08/2024 17:45 Note Text: NAME: Ivonne Cespedes [facility] NO.: [id number] DATE OF SERVICE: September 07, 2024 (Martín) Some elements in this clinic note that are critical to medical decision making have been carefully reviewed and included from a prior clinic note dated: March 23, 2024 (Martín) Referring Provider: Rosa Shearer Additional Clinicians involved in Ivonne Cespedes's care: DIAGNOSIS: B12 deficiency History of right breast DCIS ASSESSMENT: 69 year old woman with DCIS diagnosed approximately [...] Continue B12 replacement intramuscularly every month. PLAN: Triage to call results of iron studies B12 shot today and q 4 weeks Repeat labs q 12 weeks RTC in 24 weeks HPI: CASE HISTORY: Reverse Chronological Order 09/07/2024 - CBC: 6.35 > 12.7 / 39.4 < 189 Iron studies in process 06/15/2024 - CBC: 6.01 > 12.9 / 38.8 < 213 Ferritin: 51.5, TIBC: 312, Transferrin Saturation: 12.5, Vitamin B12: 552, Folate: 17.7 03/23/2024 - CBC: 6.57 > 12.7 / 40.2 < 196 Ferritin: 26.7, TIBC: 370, Transferrin Saturation: 25.1, Vitamin B12: 428, Folate: 11.8 12/05/2023 - CBC: 6.31 > 13.0 / 40.7 < 193 Ferritin: 18.2, TIBC: 384, Transferrin Saturation: 12.8, Vitamin B12: 405, Folate: 10.2 06/06/2023 - Mammogram: Category 2 benign 02/13/2023 - B12 level 144 11/01/2022 - CBC 5.7 > 13.5/41.6 < 218 normal differential. 03/2022 - FibroScan F0-F1 no steatosis. 01/2022 - CT A/P at [facility] hepatomegaly with hepatic steatosis. 06/2021 - CT A/P right retrocrural lymph node. 11/25/2018 - Right breast lumpectomy Dr. 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 10/27/2018 - Biopsy showed ductal carcinoma in situ high nuclear grade. The estrogen receptor was positive at 10-20% with progesterone receptor negative DCIS Right Breast - [facility] [place] 10/22/2018 - Mammogram showing suspicious changes in the right breast. grouping of numerous pleomorphic calcifications within the posterior upper inner quadrant. Updated Visit, September 07, 2024: Ivonne returns for a follow up. She is not anemic today, results of iron studies are in process. Will continue B12 injections given prior deficiency. She reports she was diagnosed with fibromyalgia. Updated Visit, March 23, 2024: Ivonne returns [...] Visit, June 05, 2023: Mammogram done in [place] yesterday Was told she has pancreatic insufficiency B12 levels remain low. Initial Visit, March 13, 2023: Ivonne Cespedes presents today for a Hematology and Oncology evaluation. 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 [...] PERFORMANCE STATUS: 0 PHYSICAL EXAMINATION: Vitals: BP 115/74 Pulse 82 Temp (Src) 97.3 (Axillary) Resp 16 Ht 5' 0 (1.52m) Wt 130 lb 8.2 oz (59.2kg) SpO2 98% BMI 25.49 kg/(m2). Body surface area is 1.58 meters squared. Exam limited to gross visualization where appropriate. Gen.: This is an age-appropriate patient in no acute distress. Head: Appears atraumatic with no visible lesions. Eyes: Pupils equally round and reactive to light, extraocular muscles are inta (more content not included)...[facility]01-13-2025 History of Present illness Narrative* Nurys Boggs MD - 09/07/2024 11:50 AM EST Associated Problem(s): Left hand pain Arthritic changes * Nurys Boggs MD - 09/07/2024 11:46 AM ESTAssociated Problem(s): Fibromyalgia Substance P mediated On Duloxetine and Zanaflex Has tried gummies * Nurys Boggs MD - 09/07/2024 11:36 AM ESTAssociated Problem(s): Osteopenia of multiple sites Reviewed Dexa Scan * Nurys Boggs MD - 09/07/2024 11:35 AM ESTAssociated Problem(s): 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) Has yearly mammograms * Nurys Boggs MD - 09/07/2024 11:31 AM ESTAssociated Problem(s): Irritable bowel syndrome with diarrhea On Lomotil Has history of IBS Most likely cause * Nurys Boggs MD - 09/07/2024 11:15 AM EST Images from the original note were not included. Subjective Patient ID: Ivonne Cespedes is a 69 y.o. female who presents for wants to discuss CT and prolia inj.. Pt is here wanting to discuss the prolia injection about not having to get this anymore and also the CT results she had done from dr horton office (results are in media tab) Pt thumb on her left hand is hurting Current Outpatient Medications on File Prior to Visit Medication Sig Dispense Refill Oomwvmw-Mkrksfgcvi-Njzkefb D (CALCIUM GUMMIES PO) Take 2 each [...] Smokeless tobacco: Never Tobacco comments: 11-20 cigs/day Substance Use Topics Alcohol use: Not Currently Comment: Caffeine intake:more than 4 cups per day, soda Drug use: Not Currently Family History Problem Relation Name Age of Onset Diabetes Mother Dominga Wallace Heart disease Mother Dominga Wallace Arthritis Mother Dominga Wallace Emphysema Father Hypertension Sibling Cancer Sibling Cancer Sister Yvette Barrios Past Medical History: Diagnosis Date Abnormal mammogram 10/20/2019 Category 4 Arthritis ? Diverticulosis Ductal carcinoma in situ of breast H/O CT scan 06/26/2021 Ct scan enlarged right retrocrural lymph node. Diverticulosis H/O CT scan 10/24/2021 CT scan of lung was benign findings category 2 H/O CT scan 02/02/2022 CT scan of Abdomen: Hepatomegaly with hepatic steatosis. Extensive colonic diverticulosis without evidence of acute diverticulitis Obstructive chronic bronchitis with exacerbation (CMS/HCC) Urinary [...] hemilaminotomy and discectomy Dr. Aquino SPINE SURGERY 2019 TOTAL VAGINAL HYSTERECTOMY 2007 TUBAL LIGATION 1985 Visit Vitals BP 98/68 Pulse 91 Ht 5' 1 Wt 130 lb SpO2 99% BMI 24.56 kg/m Smoking Status Every Day BSA 1.59 m Review of Systems Constitutional: Negative for fever. Musculoskeletal: Positive for myalgias. Objective Physical Exam Constitutional: Appearance: Normal appearance. HENT: Head: Normocephalic and atraumatic. Cardiovascular: Pulses: Normal pulses. Heart sounds: Normal heart sounds. Musculoskeletal: General: Tenderness present. No swelling. Arms: Neurological: Mental Status: She is alert. Assessment/Plan Problem List Items Addressed This Visit Diverticulosis Irritable bowel syndrome with diarrhea On Lomotil Has history of IBS Most likely cause 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) Has yearly mammograms Osteopenia of multiple sites Reviewed Dexa Scan Other specified chronic obstructive pulmonary disease (CMS/HCC) Fibromyalgia Substance P mediated On Duloxetine and Zanaflex Has tried gummies Left hand pain - Primary Arthritic changes No follow-ups on file. documented in this encounterMissouri Baptist Medical [id number] NoteHNO ID: [id number] Author: DESIRAE SARGENT MA Service: ? Author Type: Slag Expander Type: Progress Notes Filed: 08/11/2024 15:15 Note Text: Patient Identification confirmed: yes. Injection given and documented on MAR per provider order. Desirae Sargent [facility]12-17-2024 History of Present illness Narrative* Desirae Sargent MA - 08/11/2024 3:15 PM EST Patient Identification confirmed: yes. Injection given and documented on MAR per provider order. Desirae Sargent MA documented in this encounterUniversity Hospitals [facility] Center12-16-2024 History of Present illness Narrative* Nurys Boggs MD - 08/10/2024 2:07 PM ESTAssociated Problem(s): Fibromyalgia Subjectively not much change excpet improved sleep Objectively less painful trigger points F/Up with pharmacy about recall * Nurys Boggs MD - 08/10/2024 2:06 PM ESTAssociated Problem(s): Seasonal affective disorder (CMS/HCC) Will wean off the Zoloft in 3-4 months * Nurys Boggs MD - 08/10/2024 1:45 PM EST Images from the original note were not included. HPI seasonal affective disorder Additional comments: Started cymbalta Last edited by Darleen Louis MA on 08/10/2024 7:43 AM. Subjective Patient ID: Ivonne Cespedes is a 69 y.o. female who presents for seasonal affective disorder (Started cymbalta). Pt here due to starting cymbalta a month ago Pt states she does not see a difference , and no side effects Sleeping more soundly Current Outpatient Medications on File Prior to Visit Medication Sig Dispense Refill Epvetde-Rvzenyaurf-Bgetwoz D (CALCIUM GUMMIES PO) Take 2 each [...] mouth Daily Do not crush or chew. 30 capsule 11 levothyroxine (Synthroid, Levoxyl) 50 MCG tablet Take [...] Smokeless tobacco: Never Tobacco comments: 11-20 cigs/day Substance Use Topics Alcohol use: Not Currently Comment: Caffeine intake:more than 4 cups per day, soda Drug use: Not Currently Family History Problem Relation Name Age of Onset Diabetes Mother Dominga Wallace Heart disease Mother Dominga Wallace Arthritis Mother Dominga Wallace Emphysema Father Hypertension Sibling Cancer Sibling Cancer Sister Yvette Barrios Past Medical History: Diagnosis Date Abnormal mammogram 10/20/2019 Category 4 Arthritis ? Diverticulosis Ductal carcinoma in situ of breast H/O CT scan 06/26/2021 Ct scan enlarged right retrocrural lymph node. Diverticulosis H/O CT scan 10/24/2021 CT scan of lung was benign findings category 2 H/O CT scan 02/02/2022 CT scan of Abdomen: Hepatomegaly with hepatic steatosis. Extensive colonic diverticulosis without evidence of acute diverticulitis Obstructive chronic bronchitis with exacerbation (CMS/HCC) Urinary [...] hemilaminotomy and discectomy Dr. Aquino SPINE SURGERY 2019 TOTAL VAGINAL HYSTERECTOMY 2007 TUBAL LIGATION 1985 Visit Vitals Smoking Status Every Day Review of Systems Constitutional: Positive for fatigue. Musculoskeletal: Positive for myalgias. Negative for arthralgias. Objective Physical Exam Constitutional: General: She is not in acute distress. Appearance: Normal appearance. HENT: Head: Normocephalic. Cardiovascular: Rate and Rhythm: Normal rate and regular rhythm. Pulmonary: Effort: Pulmonary effort is normal. No respiratory distress. Breath sounds: Normal breath sounds. Musculoskeletal: Arms: Comments: Multiple trigger points, less tender Neurological: General: No focal deficit present. Mental Status: She is alert and oriented to person, place, and time. Psychiatric: Mood and Affect: Mood normal. Assessment/Plan Problem List Items Addressed This Visit Seasonal affective disorder (CMS/HCC) Relevant Medications DULoxetine (Cymbalta) [address] capsule Fibromyalgia Relevant Medications DULoxetine (Cymbalta) [address] capsule No follow-ups on file. documented in this encounterMissouri Baptist Medical [id number] Evaluation note* Diagnosis Onset Date Resolution Status Admit Date Abdominal cramping acuteDecember 2023 1:08pmIrritable bowel syndrome with diarrheaacute July 28, 2024 1:08pmAbdominal crampingacuteFebruary 2024 1:00pm Irritable bowel syndrome with diarrheaacuteFebruary 2024 1:00pm [facility] Work Phone: [phone]) 895-168211-18-2024 Nurse Note* Pepe Yadav MA - 07/13/2024 2:14 PM EST Patient Identification confirmed: yes. Injection given and documented on MAR per provider order. Pepe Yadav MA [facility]11-18-2024 Nurse Note* Pepe Yadav MA - 07/13/2024 2:14 PM EST Patient Identification confirmed: yes. Injection given and documented on MAR per provider order. Pepe Yadav MA documented in this encounterUniversity Hospitals [facility] Center11-12-2024 History of Present illness Narrative* Nurys Boggs MD - 07/07/2024 3:16 PM ESTAssociated Problem(s): Acute bilateral low back pain without sciatica Consider gummys * Nurys Boggs MD - 07/07/2024 3:16 PM ESTAssociated Problem(s): Fibromyalgia Consider Lyrica * Nurys Boggs MD - 07/07/2024 3:15 PM ESTAssociated Problem(s): Myalgia Resume Zanaflex at night F/U month Add Cymbalta * Nurys Boggs MD - 07/07/2024 3:00 PM EST Images from the original note were not included. Subjective Patient ID: Ivonne Cespedes is a 69 y.o. female who presents for lab results from [facility]. Pt states she is very tired all the time and would like to go over labs from [facility] Pt is complaining of her lower back ,hurts all the time this started about a year ago , this summerstarted to get worse states, it goes into her legs and feet, pt only takes tylenol Can Fall asleep just fine. Sleeps 5-6 hours Has no energy. Depressed cause don't feel good. Can't stand cold Current Outpatient Medications on File Prior to Visit Medication Sig Dispense Refill Tuibnee-Mjhfjexkkr-Abnpvvq D (CALCIUM GUMMIES PO) Take 2 each by mouth Daily as needed 500mg gummies cyanocobalamin (Vitamin B-12) 1000 MCG/ML injection 1 mL Injection monthly denosumab (Prolia) 60 MG/ML solution prefilled syringe Inject 60 mg under the skin. EVERY 6 MONTHS diphenoxylate-atropine (Lomotil) 2.5-0.025 MG tablet Take 2 tablets by mouth at noon and 2 tablets in the evening. levothyroxine (Synthroid, Levoxyl) 50 MCG tablet Take [...] Smokeless tobacco: Never Tobacco comments: 11-20 cigs/day Substance Use Topics Alcohol use: Not Currently Comment: Caffeine intake:more than 4 cups per day, soda Drug use: Not Currently Family History Problem Relation Name Age of Onset Diabetes Mother Dominga Wallace Heart disease Mother Dominga Wallace Arthritis Mother Dominga Wallace Emphysema Father Hypertension Sibling Cancer Sibling Cancer Sister Yvette Barrios Past Medical History: Diagnosis Date Abnormal mammogram 10/20/2019 Category 4 Arthritis ? Diverticulosis Ductal carcinoma in situ of breast H/O CT scan 06/26/2021 Ct scan enlarged right retrocrural lymph node. Diverticulosis H/O CT scan 10/24/2021 CT scan of lung was benign findings category 2 H/O CT scan 02/02/2022 CT scan of Abdomen: Hepatomegaly with hepatic steatosis. Extensive colonic diverticulosis without evidence of acute diverticulitis Obstructive chronic bronchitis with exacerbation (CMS/HCC) Urinary [...] hemilaminotomy and discectomy Dr. Aquino SPINE SURGERY 2019 TOTAL VAGINAL HYSTERECTOMY 2007 TUBAL LIGATION 1985 Visit Vitals BP 98/62 Pulse 80 Ht 5' 1 Wt 123 lb SpO2 96% BMI 23.24 kg/m Smoking Status Every Day BSA 1.55 m Review of Systems Constitutional: Positive for fatigue. Musculoskeletal: Positive for myalgias. Negative for arthralgias. Objective Physical Exam Constitutional: General: She is not in acute distress. Appearance: Normal appearance. HENT: Head: Normocephalic. Cardiovascular: Rate and Rhythm: Normal rate and regular rhythm. Pulmonary: Effort: Pulmonary effort is normal. No respiratory distress. Breath sounds: Normal breath sounds. Musculoskeletal: Arms: Comments: Multiple trigger points Neurological: General: No focal deficit present. Mental Status: She is alert and oriented to person, place, and time. Psychiatric: Mood and Affect: Mood normal. Assessment/Plan Problem List Items Addressed This Visit Seasonal affective disorder (CMS/HCC) - Primary Relevant Medications DULoxetine (Cymbalta) [address] capsule Acute bilateral low back pain without sciatica Consider gummys Myalgia Resume Zanaflex at night F/U month Add Cymbalta Fibromyalgia Consider Lyrica Relevant Medications DULoxetine (Cymbalta) [address] capsule Follow up in about 4 weeks (around 08/04/2024). documented in this encounterMissouri Baptist Medical [id number] Telephone encounter Note* Telephone Encounter - Michelle hSelton RN - 06/23/2024 12:57 PM EDT Pt aware and will call PCP for further eval. Labs faxed to Dr Boggs. She will not get Iron at this time, she will call back, if she decides to schedule. Appts verified for follow up. Pt denies furtherquestions, needs or concerns at this time. Michelle Shelton RN [facility]10-29-2024 Miscellaneous Notes* Telephone Encounter - Michelle Shelton RN - 06/23/2024 12:57 PM EDT Pt aware and will call PCP for further eval. Labs faxed to Dr Boggs. She will not get Iron at this time, she will call back, if she decides to schedule. Appts verified for follow up. Pt denies furtherquestions, needs or concerns at this time. Michelle Shelton RN * Telephone Encounter - Maikel Lunsford MD - 06/23/2024 12:30 PM EDT Iron is decreased and could get some IV iron. However, she is not anemic at all and I suspect her fatigue and SOB is not related - she should check in with PCP - I would usually think it is either caused by heart, lung issues or thyroid. Those are things her PCP would look into. * Telephone Encounter - Michelle Shelton RN - 06/23/2024 9:27 AM EDT Pt concerned of iron results. Complains of fatigue and shortness of breath. No fever or chills orrecent illness. Pt is scheduled for Colonoscopy Saturday with Dr Horton. German: please advise: pt does not take iron supplements at home Anali: please watch for colonoscopy results Michelle Shelton RN documented in this encounterUniversity Hospitals Cleveland Medical Center10-29-2024 Telephone encounter Note * Telephone Encounter - Maikel Lunsford MD - 06/23/2024 12:30 PM EDT Iron is decreased and could get some IV iron. However, she is not anemic at all and I suspect her fatigue and SOB is not related - she should check in with PCP - I would usually think it is either caused by heart, lung issues or thyroid. Those are things her PCP would look into. [facility]10-29-2024 Telephone encounter Note* Telephone Encounter - Michelle Shelton RN - 06/23/2024 9:27 AM EDT Pt concerned of iron results. Complains of fatigue and shortness of breath. No fever or chills orrecent illness. Pt is scheduled for Colonoscopy Saturday with Dr Horton. German: please advise: pt does not take iron supplements at home Anali: please watch for colonoscopy results Michelle Shelton RN [facility]10-21-2024 Nurse Note* Oniel Prescott MA - 06/15/2024 2:10 PM EDT Patient Identification confirmed: yes. Injection given and documented on MAR per provider order. Oniel Prescott MA [facility]10-21-2024 Nurse Note* Oniel Prescott MA - 06/15/2024 2:10 PM EDT Patient Identification confirmed: yes. Injection given and documented on MAR per provider order. Oniel Prescott MA documented in this encounterUniversity Hospitals [facility] Center10-14-2024 Telephone encounter Note * Telephone Encounter - DARLENE Lucas - 06/08/2024 9:53 AM EDT Please let patient know that her Mammogram was negative. Continue routine screenings. [facility] [id number] Miscellaneous Notes* Telephone Encounter - DARLENE Lucas - 06/08/2024 9:53 AM EDT Please let patient know that her Mammogram was negative. Continue routine screenings. documented in this encounterMissouri Baptist Medical [id number] Nurse Note* Oniel Prescott MA - 05/18/2024 1:52 PM EDT Patient Identification confirmed: yes. Injection given and documented on MAR per provider order. Oniel Prescott MA [facility]09-23-2024 Nurse Note* Oniel Prescott MA - 05/18/2024 1:52 PM EDT Patient Identification confirmed: yes. Injection given and documented on OCT per provider order. Oniel Prescott MA documented in this encounterUniversity Hospitals Cleveland [facility] Center09-17-2024 History of Present illness Narrative* DARLENE Lucas - 05/12/2024 3:30 PM EDT Images from the original note were not included. Subjective Patient ID: Ivonne Cespedes is a 69 y.o. female who presents for knee pain. Ivonne is present today for follow up knee pain. She was seen by Dr. Boggs on 03/18/24 for left kneepain from a fall, xray was ordered and came back with minimal osteoarthritis. Admits pain on the inside of knee on top of it, swelling. Pain is worse when walking or going up steps. Pt has been taking tylenol arthritis (not helping), Ibuprofen which does help some (does not like to take ibuprofen d/t her stomach issues. Current Outpatient Medications on File Prior to Visit Medication Sig Dispense Refill Otmqodm-Tcrgotoord-Iojntne D (CALCIUM GUMMIES PO) Take 2 each by mouth Daily as needed 500mg gummies cyanocobalamin (Vitamin B-12) 1000 MCG/ML injection 1 mL Injection monthly denosumab (Prolia) 60 MG/ML solution prefilled syringe Inject 60 mg under the skin. EVERY 6 MONTHS diphenoxylate-atropine (Lomotil) 2.5-0.025 MG tablet Take 2 tablets by mouth at noon and 2 tablets in the evening. levothyroxine (Synthroid, Levoxyl) 50 MCG tablet Take [...] needed formuscle spasms 30 tablet 2 [DISCONTINUED] cholestyramine (Questran) 4 g packet MIX 4 GM IN WATER OR JUICE EVERY DAY FOR 90 DAYS [DISCONTINUED] dicyclomine (Bentyl) 10 MG capsule Take 1 capsule (10 mg) by mouth in the morning and 1 capsule (10 mg) at noon and 1 capsule (10 mg) in the evening and 1 capsule (10 mg) before bedtime. 120 capsule 11 [DISCONTINUED] Wheat Dextrin (EQ FIBER POWDER PO) Take by mouth 2 (two) times a day 1 teaspoon twice daily No current facility-administered medications on file prior [...] Smokeless tobacco: Never Tobacco comments: 11-20 cigs/day Substance Use Topics Alcohol use: Not Currently Comment: Caffeine intake:more than 4 cups per day, soda Drug use: Not Currently Family History Problem Relation Name Age of Onset Diabetes Mother Dominga Wallace Heart disease Mother Dominga Wallace Arthritis Mother Dominga Wallace Emphysema Father Hypertension Sibling Cancer Sibling Cancer Sister Yvette Barrios Past Medical History: Diagnosis Date Abnormal mammogram 10/20/2019 Category 4 Arthritis ? Diverticulosis Ductal carcinoma in situ of breast H/O CT scan 06/26/2021 Ct scan enlarged right retrocrural lymph node. Diverticulosis H/O CT scan 10/24/2021 CT scan of lung was benign findings category [address] H/O [address] scan 02/02/2022 CT scan of Abdomen: Hepatomegaly with hepatic steatosis. Extensive colonic diverticulosis without evidence of acute diverticulitis Obstructive chronic bronchitis with exacerbation (CMS/HCC) Urinary tract infection January 2023 Visit for review of DEXA scan 10/24/2021 Dexa Femur Troch right is -2.9 Past Surgical History: Procedure Laterality Date BACK SURGERY 05/17/2021 BREAST BIOPSY 10/27/2018 stereotactic BREAST BIOPSY Left 10/27/2019 BREAST LUMPECTOMY 11/28/2018 CHOLECYSTECTOMY 2012 COLONOSCOPY 11/16/2015 COLONOSCOPY 05/16/2021 ESOPHAGOGASTRODUODENOSCOPY 2013 with biopsy x2 LUMBAR DISCECTOMY MASTECTOMY, PARTIAL Right OTHER SURGICAL HISTORY 10/20/2020 Right L5-S1 hemilaminotomy and discectomy Dr. Aquino SPINE SURGERY 2019 TOTAL VAGINAL HYSTERECTOMY 2007 TUBAL LIGATION 1985 Visit Vitals BP 100/64 Pulse 71 Resp 16 Ht 5' 1 Wt 127 lb 3.2 oz SpO2 95% BMI 24.03 kg/m Smoking Status Every Day BSA 1.58 m Review of Systems Constitutional: Negative for chills, fatigue and fever. Respiratory: Negative for cough, shortness of breath and wheezing. Cardiovascular: Negative for chest pain, palpitations and leg swelling. Gastrointestinal: Negative for abdominal pain, constipation, diarrhea, nausea and vomiting. Musculoskeletal: Positive for arthralgias, gait problem and joint swelling. Skin: Negative for rash. Objective Physical Exam Constitutional: General: She is not in acute distress. Appearance: Normal appearance. She is well-developed. HENT: Head: Normocephalic and atraumatic. Eyes: General: No scleral icterus. Conjunctiva/sclera: Conjunctivae normal. Cardiovascular: Rate and Rhythm: Normal rate and regular rhythm. Heart sounds: Normal heart sounds. No murmur heard. Pulmonary: Effort: Pulmonary effort is normal. No respiratory distress. Breath sounds: Normal breath sounds. No wheezing, rhonchi or rales. Musculoskeletal: Left knee: Swelling present. Tenderness present. Legs: Comments: Significant swelling in area as noted in drawing. Skin: General: Skin is warm and dry. Neurological: General: No focal deficit present. Mental Status: She is alert and oriented to person, place, and time. Psychiatric: Mood and Affect: Mood normal. Behavior: Behavior normal. Assessment/Plan Diagnoses and all orders for this visit: Primary osteoarthritis of left knee Seen on recent x-ray, mild. Effusion of left knee ANDREA wrap applied, N/V status intact after placement. Start Medrol margot as prescribed. Take with food. Encounter for screening mammogram for malignant neoplasm of breast - Bilateral screening mammogram with tomosynthesis; Future Provided patient with an order for an updated Mammogram. If results are negative/normal, will plan to continue with routine yearly screenings. Other osteoarthritis of spine, lumbar region Will see how symptoms are after Medrol margot. Can provide pt with referral to Dr. Elias's officeif it does not improve. Back pain of lumbar region with sciatica See above. Follow up in about 5 months (around 10/12/2024) for Medicare Wellness Visit. documented in this encounterMissouri Baptist Medical [id number] Nurse Note* Oniel Prescott MA - 04/20/2024 2:18 PM EDT Patient Identification confirmed: yes. Injection given and documented on MAR per provider order. Oniel Prescott MA [facility]08-26-2024 Nurse Note* Oniel Prescott MA - 04/20/2024 2:18 PM EDT Patient Identification confirmed: yes. Injection given and documented on MAR per provider order. Oniel Prescott MA documented in this encounterUniversity Hospitals Cleveland [facility] Center07-29-2024 Instructions* Patient Instructions* Deborah Dick - 03/23/2024 2:39 PM EDT B12 shot today and q 4 weeks Repeat labs q 12 weeks RTC in 24 weeks documented in this encounterUniversity Hospitals Cleveland Medical Center07-29-2024 History of Present illness Narrative* Maikel Lunsford MD - 03/23/2024 2:30 PM EDT Images from the original note were not included. NAME: Ivonne Cespedes CLINIC NO.: [id number] DATE OF SERVICE: March 23, 2024 (Martín) [...] no steatosis. 01/2022 - CT A/P at [facility] hepatomegaly with hepatic steatosis. 06/2021 - CT A/P right retrocrural lymph node. November 25, [address] 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 10/27/2018 - Biopsy showed ductal carcinoma in situ high nuclear grade. The estrogen receptor was positive at 10-20% with progesterone receptor negative DCIS Right Breast [place] [facility] [place]22/2018 - Mammogram showing suspicious changes in [...] Visit, June 05, 2023: Mammogram done in [place] yesterday Was told she has pancreatic insufficiency B12 levels remain low. Initial Visit, March 13, 2023: Ivonne Cespedes presents today Hematology and Oncology evaluation. 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 Additionally has a history of pancreatic insufficiency requiring Creon and fatty liver disease withIBS diarrhea. She has known vitamin B12 deficiency [...] reference: Chaperoned Breast Exam September 11, 2023 (Rde Olivares) : Right breast: scar 1 o'clock - well healed,no sign of recurrence, red mole on nipple. [...] 2011 COLONOSCOPY diverticulosis EGD 2012 HYSTERECTOMY HX 2006 Social History Tobacco Use Smoking status: Former [...] which included preparing to see the patient, ohbj-fb-wvty patient care, completing clinical documentation, obtaining and/or reviewing separately obtained history, performing a medically appropriate examination, counseling and educating the pat ient/family/caregiver, ordering medications, tests, or procedures, independently interpreting results (not separately reported), and communicating results to the patient/family/caregiver. Maikel Lunsford MD, CPE Hematology and Oncology Services Provided at: [facility], [place], [place] Scribe Attestation: This note was scribed [...] under my direction. CC: Rosa Shearer [address] [facility] [id number] Nurys Boggs [address] [facility] [address] [facility] [id number] documented in this encounterUniversity Hospitals Cleveland Medical Center07-29-2024 Nurse Note* Desirae Carmen MA - 03/23/2024 2:28 PM EDT Patient states she seems to be more tired lately, she also states she quit smoking. Dseirae Sargent MA [facility]07-29-2024 Nurse Note* Desirae Sargent MA - 03/23/2024 2:28 PM EDT Patient states she seems to be more tired lately, she also states she quit smoking. Desirae Sargent MA documented in this encounterUniversity Hospitals Cleveland Medical Center06-06-2024 Nurse Note* Desirae Carmen MA - 01/30/2024 2:39 PM EDT Patient Identification confirmed: yes. Injection given and documented on MAR per provider order. Desirae Sargent MA [facility]06-06-2024 Nurse Note* Desirae Sargent MA - 01/30/2024 2:39 PM EDT Patient Identification confirmed: yes. Injection given and documented on MAR per provider order. Desirae Sargent MA documented in this encounterUniversity Hospitals Cleveland [facility] Center05-29-2024 Telephone encounter Note * Telephone Encounter - Desirae Sargent MA - 01/22/2024 9:58 AM EDT Please sign B12 order for 01/30/24, Thanks. Desirae Sargent MA [facility]05-29-2024 Miscellaneous Notes* Telephone Encounter - Desirae Carmen MA - 01/22/2024 9:58 AM EDT Please sign B12 order for 01/30/24, Thanks. Desirae Sargent MA documented in this encounterUniversity Hospitals Cleveland Medical Center05-09-2024 Nurse Note* Shirley Pierre MA - 01/02/2024 2:31 PM EDT Patient Identification confirmed: yes. Injection given and documented on MAR per provider order. Shirley Pierre MA [facility]04-11-2024 Nurse Note* Pepe Yadav MA - 12/05/2023 2:51 PM EDT Patient Identification confirmed: yes. Injection given and documented on MAR per provider order. Pepe Yadav MA documented in this encounterUniversity Hospitals Cleveland Medical Center04-01-2024 Nurse Note* Shirley Pierre MA - 01/02/2024 2:31 PM EDT Patient Identification confirmed: yes. Injection given and documented on MAR per provider order. Shirley Pierre MA documented in this encounterUniversity Hospitals Cleveland Medical Center03-14-2024 Nurse Note* Pepe Yadav - 11/07/2023 2:10 PM EDT Patient Identification confirmed: yes. Injection given and documented on MAR per provider order. Pepe Yadav documented in this encounterUniversity Hospitals Cleveland Medical Center02-16-2024 Hospital Discharge instructions Patient Education 10/11/2023 13:10:47 Fatty Liver [...] cholesterol. Other causes: Alcohol abuse. Poor nutrition. [place] syndrome. . Certain drugs. Poisons. Some viral [...] which activities are best for you. Take hbpy-xoa-nsleyrc and prescription medicines only as told by [...] have trouble controlling your blood sugar, cholesterol, ordrinking of alcohol. This information is not intended to replace advice given to you by your health care provider. Make sure you discuss any questions you have with your health care provider. Document Revised: 05/25/2021 Document Reviewed: 05/25/2021 [employer] Patient Education 2022 [employer]. Follow Up Care 07/26/2023 14:28:34 With:Rosa Shearer CNP Address: When:6 months [facility] 02-15-2024 Nurse Note* Oniel Prescott Ma - 10/10/2023 1:47 PM EST Patient Identification confirmed: yes. Injection given and documented on OCT per provider order. Oniel Prescott Ma documented in this encounterUniversity Hospitals Cleveland Medical Center12-06-2023 Miscellaneous Notes* Telephone Encounter - Maikel Lunsford MD - 07/31/2023 7:36 PM EST Thank you for documenting * Telephone Encounter - Macarena Brown RN - 07/31/2023 2:25 PM EST 1400: Pt arrives to clinic for Vitamin B12 injection. Pt reported feeling dizzy, lightheaded, and tired. Vitals obtained: BP 78/46 HR [address] 98%. Dr. Lunsford aware and Dr CABRERA called overhead. EKG ordered and obtained, 2L Oxygen applied. EKG interpreted by Dr. Buck SVT noted. Squad was called at 1405 and arrived at 1417. Pt remained calm and responsive. Pt asked to have sonRonny called and updated. Cesia Gilbert, social work handled this. Vitals rechecked, manual BP 80/64 HR 151 SpO2 100% 2L NC. Pt dc'd via EMS. Macarena Brown, RN documented in this encounterUniversity Hospitals Cleveland Medical Center12-06-2023 Nurse Note* Pepe Yadav - 07/31/2023 2:25 PM EST EKG performed as ordered. Electronically sent to [facility]. Placed paper copy in scan folder. Pepe Yadav * Pepe Yadav - 07/31/2023 2:00 PM EST Patient came in for a b-12. Patient blood pressure low. Repeated. Pulse high. Patient complaining of lightheadedness,dizzy, and fatigue. Got Dr. Maikel Lunsford. Did an EKG while someone called 911. Pepe Yadav documented in this encounterUniversity Hospitals Cleveland Medical Center12-01-2023 Hospital Discharge instructions Patient Education 07/26/2023 13:36:32 High-Fiber Eating [...] the amount of dietary fiber. Choose foods thathave 5 grams of fiber or more per [...] Bulgur wheat. Millet. Quinoa. Bran muffins. Popcorn. Cross[place] wafer crackers. Meats and other proteins [place] beans, kidney beans, and foss beans. Soybeans. [...] Cream cheese. Sour cream. Fats and oils [place]. Beverages Soft drinks. Other foods Cakes and pastries. The items listed above may not be a complete list of foods and beverages to avoid. Talk with your dietitian about what choices are best for you. Summary Fiber is a type of carbohydrate. It is found in foods such as fruits, vegetables, whole grains, andbeans. A high-fiber diet has many benefits. It can help to prevent constipation, lower blood cholesterol, aid weight loss, and reduce your risk of heart disease, diabetes, and certain cancers. Increase your intake of fiber gradually. Increasing fiber too quickly may cause cramping, bloating,and gas. Drink plenty of water while you [...] provider. Document Revised: 12/15/2020 Document Reviewed: 12/15/2020 [employer] Patient Education 2022 [employer]. Follow Up Care 06/26/2023 13:14:25 With:Rosa Shearer CNP Address: When:1 month [facility] 11-08-2023 History of Present illness Narrative* Jyoti Bragg, RD - 07/03/2023 1:45 PM EST Oncology Nutrition Therapy Initial Assessment RECOMMENDED MALNUTRITION [...] Pt states she follows with GI in [place], [place]. Previous records available reviewed with pt [...] changes alone is not sufficient to treat thiscondition. Highly recommended she follow up with GI [...] Dosing Weight: 53.3 kg Estimated kilocalorie needs: 0213-9342 kilocalories determined by 25-30 kcal/kg Estimated protein needs: 53-69 grams determined by 1.0-1.3 g/kg Dosing weight Estimated fluid needs: ~6728-9135 milliliters based on 1 mL per kcal [...] with Patient: 30 minutes Signed by: Jyoti Bragg MS, RDN, LD documented in this encounterUniversity Hospitals Cleveland Medical Center11-08-2023 History of Present illness Narrative* Carri Lloyd - 07/03/2023 1:42 PM EST Patient Identification confirmed: yes. Injection given and documented on OCT per provider order. Carri Lloyd documented in this encounterUniversity Hospitals Cleveland Medical Center11-01-2023 Hospital Discharge instructions Patient Education 06/26/2023 12:49:22 Colon Polyps Colon Polyps Colon polyps are tissue growths inside the colon, which is part of the large intestine. They are one of the types of polyps that can grow in the body. A polyp may be a round bump or a mushroom-shapedgrowth. You could have one polyp or more [...] smoking cigarettes, drinking too much alcohol, not gettingenough exercise, and eating a diet that is [...] contain nicotine or tobacco, such as cigarettes, e- cigarettes, and chewing tobacco. If you need help [...] hard liquor (44 mL). General instructions Take bmse-mvg-wfwvstg and prescription medicines only as told by [...] provider. Document Revised: 11/30/2020 Document Reviewed: 11/30/2020 [employer] Patient Education 2022 [employer]. Follow Up Care 03/26/2023 13:13:41 With:Rosa Shearer CNP Address: When:1 month [facility] [id number] Instructions* Patient Instructions* Maikel Lunsford MD - 06/05/2023 2:58 PM EDT B12 shot today and then every 4 weeks RTC in 12 weeks and repeat labs. Exam same day. Obtain mammography from [facility] Consult Mental Telepathist for help with pancreatic insufficiency (Dr. Hameed) documented in this encounterUniversity Hospitals Cleveland Medical Center10-11-2023 Nurse Note* Desirae Carmen MA - 06/05/2023 2:32 PM EDT Digestive Doctor in [place] was told she did not have enough pancreatic enzymes, they told her thatif she takes Vitamins it won't help. If she needs to do B12 injections again will it even work due to pancreatic issues? Desirae Olivares MA documented in this encounterUniversity Hospitals Cleveland Medical Center10-11-2023 History of Present illness Narrative* Maikel Lunsford MD - 06/05/2023 2:15 PM EDT Images from the original note were not included. NAME: Ivonne Cespedes CLINIC NO.: [id number] DATE OF SERVICE: June 05, 2023 (Martín) [...] labs. Exam same day. Obtain mammography from [facility] Consult Mental Telepathist for help with pancreatic insufficiency (Dr. Hameed) HPI: CASE HISTORY: Reverse Chronological Order 02/13/2023 B12 level 144 11/01/2022 CBC 5.7 > 13.5/41.6 < 218 normal differential. March 2022 FibroScan F0-F1 no steatosis. January 2022 CT scan abdomen pelvis at [facility] hepatomegaly with hepatic steatosis. June 2021 CT abdomen pelvis right retrocrural lymph node. November 25, 2018 right breast lumpectomyDr. 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 October 27, 2018 biopsy showed ductal carcinoma in situ high nuclear grade. The estrogen receptor was positive at 10-20% with progesterone receptor negative DCIS Right Breast - [facility] October 22, 2018 mammogram showing suspicious changes in the right breast. grouping of numerous pleomorphic calcifications within the posterior upper inner quadrant. Updated Visit, June 05, 2023: Mammogram done in [place] yesterday Was told she has pancreatic insufficiency B12 levels remain low. Initial Visit, March 13, 2023: Ivonne Santos Cespedes presents today Hematology and Oncology evaluation. 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 Additionally has a history of pancreatic insufficiency requiring Creon and fatty liver disease withIBS diarrhea. She has known vitamin B12 deficiency [...] 2011 COLONOSCOPY diverticulosis EGD 2012 HYSTERECTOMY HX 2006 Social History Tobacco Use [...] which included preparing to see the patient, prfd-hn-qjnl patient care, completing clinical documentation, obtaining and/or reviewing separately obtained history, performing a medically appropriate examination, counseling and educating the pat ient/family/caregiver, ordering medications, tests, or procedures, independently interpreting results (not separately reported), and communicating results to the patient/family/caregiver. Maikel Lunsford MD, CPE Hematology and Oncology Services Provided at: [place], [place] CC: Rosa Shearer [address] [place] [address] [address] [address] [facility] [address] [place] [address] documented in this encounterUniversity Hospitals Cleveland Medical Center08-11-2023 Nurse Note* Desirae Carmen MA - 04/05/2023 10:29 AM EDT Patient Identification confirmed: yes. Injection given and documented on MAR per provider order. Desirae Sargent MA documented in this encounterUniversity Hospitals Cleveland Medical Center08-07-2023 Miscellaneous Notes* Telephone Encounter - Dede Hirsch - 04/01/2023 11:02 AM EDT Received call from [facility] office. Requesting us to fax Dr CHANDRA office note from 03/13 to their office @ [phone]. Dr CHANDRA office note from 03/13/23 faxed to [phone]. Dede Kwong documented in this encounterUniversity Hospitals Cleveland Medical Center08-04-2023 Nurse Note* Desirae Carmen MA - 03/29/2023 2:22 PM EDT Patient Identification confirmed: yes. Injection given and documented on MAR per provider order. Desirae Sargent MA documented in this encounterUniversity Hospitals Cleveland Medical Center08-01-2023 Hospital Discharge instructions Patient Education 03/26/2023 12:56:48 Colon Polyps Colon Polyps Colon polyps are tissue growths inside the colon, which is part of the large intestine. They are one of the types of polyps that can grow in the body. A polyp may be a round bump or a mushroom-shapedgrowth. You could have one polyp or more [...] smoking cigarettes, drinking too much alcohol, not gettingenough exercise, and eating a diet that is [...] contain nicotine or tobacco, such as cigarettes, e- cigarettes, and chewing tobacco. If you need help [...] hard liquor (44 mL). General instructions Take zqsz-axw-svzcbed and prescription medicines only as told by [...] provider. Document Revised: 11/30/2020 Document Reviewed: 11/30/2020 [employer] Patient Education 2022 Trunk Show. Follow Up Care 02/22/2023 12:55:30 With:Rosa Shearer CNP Address: When:3 months [facility] [phone] Nurse Note* Desirae Sargent MA - 03/22/2023 2:31 PM EDT Patient Identification confirmed: yes. Injection given and documented on MAR per provider order. Desirae Sargent MA documented in this encounterUniversity Hospitals Cleveland Medical Center07-19-2023 Nurse Note* Pepe Yadav - 03/13/2023 12:24 PM EDT Patient Identification confirmed: yes. Injection given and documented on MAR per provider order. Pepe Yadav documented in this encounterUniversity Hospitals Cleveland Medical Center07-19-2023 Instructions* Patient Instructions* Maikel Lunsford MD - 03/13/2023 12:03 PM EDT Labs today please B12 shot after labs today and then weekly x 4 then every 4 weeks RTC in 12 weeks and repeat labs. documented in this encounterUniversity Hospitals Cleveland Medical Center07-19-2023 History of Present illness Narrative* Maikel Lunsford MD - 03/13/2023 11:33 AM EDT Images from the original note were not included. NAME: Ivonne Cespedes [facility] NO.: [id number] DATE OF SERVICE: March 13, 2023 (Martín) Referring Provider: Rosa Shearer Consultation requested by Rosa Shearer for an opinion regarding . Ivonne Cespedes, and my final recommendations will [...] January 2022 CT scan abdomen pelvis at [facility] hepatomegaly with hepatic steatosis. June 2021 CT abdomen pelvis right retrocrural lymph node. November 25, 2018 right breast lumpectomyDr. 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 October 27, 2018 biopsy showed ductal carcinoma in situ high nuclear grade. The estrogen receptor was positive at 10-20% with progesterone receptor negative DCIS Right Breast - [facility] October 22, 2018 mammogram showing suspicious changes in the right breast. grouping of numerous pleomorphic calcifications within the posterior upper inner quadrant. Initial Visit, March 13, 2023: Ivonne Cespedes presents today Hematology and Oncology evaluation. 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 Additionally has a history of pancreatic insufficiency requiring Creon and fatty liver disease withIBS diarrhea. She has known vitamin B12 deficiency [...] which included preparing to see the patient, utcu-jx-ncfe patient care, completing clinical documentation, obtaining and/or reviewing separately obtained history, performing a medically appropriate examination, counseling and educating the pat ient/family/caregiver, ordering medications, tests, or procedures, independently interpreting results (not separately reported), and communicating results to the patient/family/caregiver. Maikel Lunsford MD, CPE Hematology and Oncology Services Provided at: [place], [place] CC: [facility] Shearer [address] [facility] [address] [address] [facility] [address] [facility] [address] documented in this encounterUniversity Hospitals Cleveland Medical Center07-19-2023 Nurse Note* Desirae Carmen MA - 03/13/2023 11:17 AM EDT Patient states that her pancreatic enzymes have been off they prescribed Creon but was to expensive, she did buy an over the counter Pancreatic supplement but not sure if that has helped. Patient also has been seeing Dr. Tejeda in [place] due to digestive issues, cramping in lower abdomin they cannot figure out why. Desirae Sargent MA documented in this encounterUniversity Hospitals Cleveland Medical Center06-30-2023 Hospital Discharge instructions Patient Education 02/22/2023 12:16:01 Fatty Liver [...] which activities are best for you. Take tqaq-uoj-pcxdece and prescription medicines only as told by [...] have trouble controlling your blood sugar, cholesterol, ordrinking of alcohol. This information is not intended to replace advice given to you by your health care provider. Make sure you discuss any questions you have with your health care provider. Document Revised: 05/25/2021 Document Reviewed: 05/25/2021 [employer] Patient Education 2022 [employer]. Follow Up Care 11/22/2022 13:36:40 With:Rosa Shearer CNP Address: When:1 month [facility] 06-02-2023 Evaluation note* Encounter Date Diagnosis Assessment Notes Treatment Notes Treatment Clinical Notes Jan, Cellulitis of right index finger [...] understanding and is agreeable to treatment plan. Realie Other 04-11-2023 Nurse Note* Ignacio, November - 06/05/2023 3:23 PM EDT Patient Identification confirmed: yes. Injection given and documented on OCT per provider order. Shirley Pierre documented in this encounterUniversity Hospitals Cleveland Medical Center03-30-2023 Hospital Discharge instructions Patient Education 11/22/2022 13:32:05 [...] Drinking too much alcohol. Poor nutrition. Obesity. Blue [place]'s syndrome. Diabetes. High cholesterol. Certain drugs. Poisons. [...] provider about working with a diet and contracting support specialist (dietitian) to develop an eating plan. Exercise regularly. This can help you lose weight and control your cholesterol and diabetes. Talk to your health care provider about an exercise plan and which activities are best for you. Take qwba-jqd-parvhve and prescription medicines only as told by [...] 09/27/2006 Document Revised: 07/25/2018 Document Reviewed: 05/21/2018 [employer] Patient Education 2020 [employer] Follow Up Care 11/01/2022 08:42:19 With:Rosa Shearer CNP Address: When:3 months [facility] 11-01-2022 Evaluation + Plan note Future Scheduled Tests Laboratory* Vitamin E Level 06/26/22 * Vitamin A Level 06/26/22 * Vitamin D 25 Hydroxy 06/26/22 * Vitamin B12 Level 06/26/22 [facility]10-25-2022 Hospital Discharge instructions Patient Education 06/19/2022 [...] your health care provider and diet and contracting support specialist (dietitian) to find the eating plan [...] care provider if you should take an jvhe-wzc-onzcrwy probiotic to help restore healthy bacteria in [...] your symptoms worse: Fatty foods, such as azeri fries. Foods that contain gluten, such as [...] Foundation for Functional Gastrointestinal Disorders: www.iffgd.org National [place] of Diabetes and Digestive and Kidney Diseases: [...] Your health care provider or diet and contracting support specialist (dietitian) may recommend that you eat more foods that contain fiber. This information is not intended to replace advice given to you by your health care provider. Make sure you discuss any questions you have with your health care provider. Document Released: 11/01/2004 Document Revised: 12/02/2019 Document Reviewed: 04/15/2018 [employer] Patient Education 2020 [employer] 06/19/2022 12:46:38 Fatty Liver Disease Fatty Liver [...] provider about working with a diet and contracting support specialist (dietitian) to develop an eating plan. Exercise regularly. This can help you lose weight and control your cholesterol and diabetes. Talk to your health care provider about an exercise plan and which activities are best for you. Take phwj-fuq-relmxpm and prescription medicines only as told by [...] 09/27/2006 Document Revised: 07/25/2018 Document Reviewed: 05/21/2018 [employer] Patient Education [email or web address]. Follow Up Care 04/17/2022 13:08:53 With:Rosa Shearer CNP Address: When:1 month [facility] 04-08-2022 Hospital Discharge instructions Follow Up Care 12/01/2021 15:26:08 With:JOSUÉ SOMMERS, NIR Chu, [facility] Address: [facility] [address] [place] [address]- When:Within 2 Month(s) [facility] Evaluation + Plan note Future Appointments Appointment Date:05/01/2022 02:00:00 PM Scheduled Provider:Rosa Shearer CNP Location:[facility] Appointment Type:[facility] Follow Up [facility] Evaluation + Plan note Future Appointments Appointment Date:04/17/2022 12:15:00 PM Scheduled Provider:Kimberley HAMEED MD Location:[facility] Appointment Date:06/19/2022 12:40:00 PM Scheduled Provider:Rosa Shearer CNP Location:[facility] Appointment Type:BAD Follow Up [facility] Evaluation + Plan note Future Appointments Appointment Date:07/24/2022 01:40:00 PM Scheduled Provider:Rosa Shearer CNP Location:[facility] Appointment Type:[facility] Follow Up Future Scheduled Tests Laboratory* Pancreatic Elastase, Fecal 06/19/22 * Fecal WBC Lactoferrin 06/19/22 * Giardia lamblia, Direct Detection EIA 06/19/22 * O & P Exam, Routine 06/19/22 * Clostridium difficile by PCR 06/19/22 * Enteric Panel by PCR 06/19/22 [facility] Evaluation + Plan note Future Appointments Appointment Date:10/16/2022 02:00:00 PM Scheduled Provider: [facility] Type:[facility] Abdominal/Pelvis (FT) Future Scheduled Tests Laboratory* Vitamin E Level 06/26/22 * Vitamin A Level 06/26/22 * Vitamin D 25 Hydroxy 06/26/22 * Vitamin B12 Level 06/26/22 Radiology* US Pelvis Non-OB Complete 10/16/22 [facility] Evaluation + Plan note Future Appointments Appointment Date:11/22/2022 01:00:00 PM Scheduled Provider:Rosa Shearer CNP Location:[facility] Appointment Type:[facility] Follow Up Diagnostic Tests Pending * Vitamin E Level 11/01/22 * Vitamin A [facility] Appointment Date:02/22/2023 12:20:00 PM Scheduled Provider:Rosa Shearer CNP Location:[facility] Appointment Type:[facility] Follow Up Future Scheduled Tests Laboratory* Vitamin B12 Level 11/22/22 [facility] Evaluation + Plan note Future Appointments Appointment Date:02/22/2023 12:20:00 PM Scheduled Provider:Rosa Shearer CNP Location:[facility]:BAD [facility] Appointment Date:03/07/2023 12:00:00 PM Scheduled Provider: Location:[facility] Appointment Type:Surgery FT Appointment Date:03/26/2023 12:40:00 PM Scheduled Provider:Rosa Shearer CNP Location:[facility] Appointment Type:BAD Follow Up [facility] Evaluation + Plan note Future Appointments Appointment Date:03/26/2023 12:40:00 PM Scheduled Provider:Rosa Shearer CNP Location:[facility] App[facility]ment Type:[facility] Appointment Date:06/26/2023 12:40:00 PM Scheduled Provider:Rosa Shearer CNP Location:[facility] Appointment Type:BAD Follow Up [facility] Evaluation + Plan note Future Appointments Appointment Date:07/26/2023 01:40:00 PM Scheduled Provider:Rosa Shearer CNP Location:[facility] Appointment Type:BAD Follow Up Future Scheduled Tests Laboratory* Pancreatic Elastase, Fecal 06/26/23 [facility] [facility] Evaluation + Plan note Future Appointments Appointment Date:10/11/2023 01:00:00 PM Scheduled Provider:Rosa Shearer CNP [place] [place] [facility] Appointment Type:BAD Follow Up Future Scheduled Tests Laboratory* Pancreatic Elastase, Fecal 06/26/23 [facility] Evaluation + Plan note Future Appointments Appointment Date:10/11/2023 01:00:00 PM Scheduled Provider:Rosa Shearer CNP Location[place] [place] [facility] Appointment Type:[facility] Follow Up Diagnostic Tests Pending * Pancreatic Elastase, Fecal [facility] Appointment Date:03/09/2024 12:00:00 PM Scheduled Provider: Location:[facility] Appointment Type:Surgery FT Appointment Date:03/27/2024 12:00:00 PM Scheduled Provider:Rosa Shearer CNP Location[place] [place] [facility] Appointment Type:[facility] Follow Up Future Scheduled Tests Laboratory* CBC w/ Auto Diff 10/11/23 * Comprehensive Metabolic Panel 10/11/23 * Vitamin B12 Level 10/11/23 [facility] Evaluation + Plan note Future Appointments Appointment Date:03/09/2024 12:00:00 PM Scheduled Provider: Location:[facility] Appointment Type:Surgery FT Appointment Date:03/27/2024 12:00:00 PM Scheduled Provider:Rosa Shearer CNP Location:[facility] Appointment Type:[facility]ments Appointment Date:03/26/2024 10:45:00 AM Scheduled Provider:Liborio Garcia MD Location:[facility] Appointment Type:[facility] App[facility]ments Appointment Date:07/06/2024 12:45:00 PM Scheduled Provider:Liborio Garcia MD Location[place] [place] [facility] Appointment Type:[facility] Follow Up [facility] Evaluation note* Diagnosis Anemia, 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 Other vitamin B12 deficiency anemia [facility] Diagnosis Anemia, 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 Other vitamin B12 deficiency anemia [facility] Diagnosis Anemia, 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 Other vitamin B12 deficiency anemia [facility] Diagnosis Anemia, 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 Other vitamin B12 deficiency anemia documented [facility] Diagnosis Anemia, 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 Other vitamin B12 deficiency anemia documented in this encounter [facility]* Diagnosis Anemia, 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 Other vitamin B12 deficiency anemia documented in this encounter [facility] note* Diagnosis Megaloblastic anemia due to vitamin B12 deficiency- Primary Other vitamin B12 deficiency anemia Anemia, unspecified type Pancreatic insufficiency Other specified disease of pancreas documented in this encounter [facility] note* Diagnosis Megaloblastic anemia due to vitamin B12 deficiency- Primary Other vitamin B12 deficiency anemia Pancreatic insufficiency Other specified disease of pancreas documented in this encounter [facility] note* Diagnosis Anemia, 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 Other vitamin B12 deficiency anemia Tachycardia Tachycardia, unspecified documented in this encounter [facility]* Diagnosis Anemia, 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 Other vitamin B12 deficiency anemia documented in this encounter [facility] note* Diagnosis Anemia, 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 Other vitamin B12 deficiency anemia documented in this encounter [facility] note* Diagnosis Onset Date Resolution Status Diverticulosis acuteIrritable bowel syndrome with diarrheaacute [facility] Work Phone: Evaluation note* Diagnosis Anemia, 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 Other vitamin B12 deficiency anemia documented in this encounter [facility] note* Diagnosis Megaloblastic anemia due to vitamin B12 deficiency- Primary Other vitamin B12 deficiency anemia documented in this encounter [facility] note* Diagnosis Onset Date Resolution Status Abdominal cramping acuteDiverticulosisacuteFatty liveracuteIrritable bowel syndrome with diarrhea acuteAbdominal crampingacuteIrritable bowel syndrome with diarrheaacute [facility] Work Phone: Evaluation note* Diagnosis Anemia, 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 Other vitamin B12 deficiency anemia documented in this encounter [facility] note* Diagnosis Onset Date Resolution Status Abdominal cramping acuteDiverticulosisacuteFatty liveracuteIrritable bowel syndrome with diarrhea acuteAbdominal crampingacuteIrritable bowel syndrome with diarrheaacuteAbdominal crampingacuteBile acid malabsorption syndromeacuteColon polypsacute DiverticulosisacuteFamily hx of colon canceracuteFatty liveracuteIrritable bowel syndrome with diarrheaacute [facility] Work Phone: Evaluation note* Diagnosis Viral upper respiratory tract infection- Primary Acute upper respiratory infections of unspecified site Osteoporosis, unspecified osteoporosis type, unspecified pathological fracture presence (CMS/HCC) Acute ear pain, right Back pain of lumbar region with sciatica Arrest of bone development or growth- Primary Age-related osteoporosis without current pathological fracture (CMS/HCC) Fall in home, initial encounter Other fatigue Contusion of left knee, initial encounter Acute pain of left knee Daytime somnolence Seasonal affective disorder (CMS/HCC)- Primary Other specified episodic mood disorder Acute bilateral low back pain without sciatica Myalgia Unspecified myalgia and myositis Fibromyalgia Unspecified myalgia and myositis [facility] Diagnosis Primary osteoarthritis of left knee- Primary Effusion of left knee Encounter for screening mammogram for malignant neoplasm of breast Other osteoarthritis of spine, lumbar region Back pain of lumbar region with sciatica [facility]* Diagnosis Viral upper respiratory tract infection- Primary Acute upper respiratory infections of unspecified site Osteoporosis, unspecified osteoporosis type, unspecified pathological fracture presence (CMS/HCC) Acute ear pain, right Back pain of lumbar region with sciatica Arrest of bone development or growth- Primary Age-related osteoporosis without current pathological fracture (CMS/HCC) Fall in home, initial encounter Other fatigue Contusion of left knee, initial encounter Acute pain of left knee Daytime somnolence Seasonal affective disorder (CMS/HCC)- Primary Other specified episodic mood disorder Acute bilateral low back pain without sciatica Myalgia Unspecified myalgia and myositis Fibromyalgia Unspecified myalgia and myositis Seasonal affective disorder (CMS/HCC) Other specified episodic mood disorder Fibromyalgia Unspecified myalgia and myositis documented [facility] noteNo assessment information availableMer[facility] Work Phone: Evaluation note* Diagnosis Viral upper respiratory tract infection- Primary Acute upper respiratory infections of unspecified site Osteoporosis, unspecified osteoporosis type, unspecified pathological fracture presence (CMS/HCC) Acute ear pain, right Back pain of lumbar region with sciatica Arrest of bone development or growth- Primary Age-related osteoporosis without current pathological fracture (CMS/HCC) Fall in home, initial encounter Other fatigue Contusion of left knee, initial encounter Acute pain of left knee Daytime somnolence Seasonal affective disorder (CMS/HCC)- Primary Other specified episodic mood disorder Acute bilateral low back pain without sciatica Myalgia Unspecified myalgia and myositis Fibromyalgia Unspecified myalgia and myositis Seasonal affective disorder (CMS/HCC) Other specified episodic mood disorder Fibromyalgia Unspecified myalgia and myositis Left hand pain- Primary Pain in soft tissues of limb Emphysema, unspecified (CMS/HCC) 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 (CMS/HCC) Malignant neoplasm of unspecified site of right female breast (CMS/HCC) Panlobular emphysema (CMS/HCC) Other emphysema Chronic obstructive pulmonary disease, unspecified (CMS/HCC) Other specified chronic obstructive pulmonary disease (CMS/HCC) 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) Osteopenia of multiple sites Diverticulosis Diverticulosis of colon (without mention of hemorrhage) Irritable bowel syndrome with diarrhea Irritable bowel syndrome Fibromyalgia Unspecified myalgia and myositis [facility]* Diagnosis Megaloblastic anemia due to vitamin B12 deficiency- Primary Other vitamin B12 deficiency anemia [facility] Viral upper respiratory tract infection- Primary Acute upper respiratory infections of unspecified site Osteoporosis, unspecified osteoporosis type, unspecified pathological fracture presence (CMS/HCC) Acute ear pain, right Back pain of lumbar region with sciatica Arrest of bone development or growth- Primary Age-related osteoporosis without current pathological fracture (CMS/HCC) Fall in home, initial encounter Other fatigue Contusion of left knee, initial encounter Acute pain of left knee Daytime somnolence Seasonal affective disorder (CMS/HCC)- Primary Other specified episodic mood disorder Acute bilateral low back pain without sciatica Myalgia Unspecified myalgia and myositis Fibromyalgia Unspecified myalgia and myositis Seasonal affective disorder (CMS/HCC) Other specified episodic mood disorder Fibromyalgia Unspecified myalgia and myositis Left hand pain- Primary Pain in soft tissues of limb Emphysema, unspecified (CMS/HCC) 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 (CMS/HCC) Malignant neoplasm of unspecified site of right female breast (CMS/HCC) Panlobular emphysema (CMS/HCC) Other emphysema Chronic obstructive pulmonary disease, unspecified (CMS/HCC) Other specified chronic obstructive pulmonary disease (CMS/HCC) 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) Osteopenia of multiple sites Diverticulosis Diverticulosis of colon (without mention of hemorrhage) Irritable bowel syndrome with diarrhea Irritable bowel syndrome Fibromyalgia Unspecified myalgia and myositis Age-related osteoporosis without current pathological fracture (CMS/HCC) documented in this encounter [facility]* Diagnosis Anemia, 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 Other vitamin B12 deficiency anemia [facility] Diagnosis Anemia, 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 Other vitamin B12 deficiency anemia [facility]* Diagnosis Anemia, 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 Other vitamin B12 deficiency anemia [facility]* Diagnosis Viral upper respiratory tract infection- Primary Acute upper respiratory infections of unspecified site Osteoporosis, unspecified osteoporosis type, unspecified pathological fracture presence (CMS/HCC) Acute ear pain, right Back pain of lumbar region with sciatica Arrest of bone development or growth- Primary Age-related osteoporosis without current pathological fracture (CMS/HCC) Fall in home, initial encounter Other fatigue Contusion of left knee, initial encounter Acute pain of left knee Daytime somnolence Seasonal affective disorder (CMS/HCC)- Primary Other specified episodic mood disorder Acute bilateral low back pain without sciatica Myalgia Unspecified myalgia and myositis Fibromyalgia Unspecified myalgia and myositis Seasonal affective disorder (CMS/HCC) Other specified episodic mood disorder Fibromyalgia Unspecified myalgia and myositis Left hand pain- Primary Pain in soft tissues of limb Emphysema, unspecified 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 (CMS/HCC) Malignant neoplasm of unspecified site of right female breast (CMS/HCC) Panlobular emphysema (CMS/HCC) Other emphysema Chronic obstructive pulmonary disease, unspecified Other specified chronic obstructive pulmonary disease 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) Osteopenia of multiple sites Diverticulosis Diverticulosis of colon (without mention of hemorrhage) Irritable bowel syndrome with diarrhea Irritable bowel syndrome Fibromyalgia Unspecified myalgia and myositis Age-related osteoporosis without current pathological fracture (CMS/HCC) Acute strain of neck muscle, initial encounter- Primary Back pain of lumbar region with sciatica Sprain of metacarpophalangeal (MCP) joint of left thumb, initial encounter Fibromyalgia Unspecified myalgia and myositis [facility]* Diagnosis Viral upper respiratory tract infection- Primary Acute upper respiratory infections of unspecified site Osteoporosis, unspecified osteoporosis type, unspecified pathological fracture presence (CMS/HCC) Acute ear pain, right Back pain of lumbar region with sciatica Arrest of bone development or growth- Primary Age-related osteoporosis without current pathological fracture (CMS/HCC) Fall in home, initial encounter Other fatigue Contusion of left knee, initial encounter Acute pain of left knee Daytime somnolence Seasonal affective disorder (CMS/HCC)- Primary Other specified episodic mood disorder Acute bilateral low back pain without sciatica Myalgia Unspecified myalgia and myositis Fibromyalgia Unspecified myalgia and myositis Seasonal affective disorder (CMS/HCC) Other specified episodic mood disorder Fibromyalgia Unspecified myalgia and myositis Left hand pain- Primary Pain in soft tissues of limb Emphysema, unspecified 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 (CMS/HCC) Malignant neoplasm of unspecified site of right female breast (CMS/HCC) Panlobular emphysema (CMS/HCC) Other emphysema Chronic obstructive pulmonary disease, unspecified Other specified chronic obstructive pulmonary disease 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) Osteopenia of multiple sites Diverticulosis Diverticulosis of colon (without mention of hemorrhage) Irritable bowel syndrome with diarrhea Irritable bowel syndrome Fibromyalgia Unspecified myalgia and myositis Age-related osteoporosis without current pathological fracture (CMS/HCC) Acute strain of neck muscle, initial encounter- Primary Back pain of lumbar region with sciatica Sprain of metacarpophalangeal (MCP) joint of left thumb, initial encounter Fibromyalgia Unspecified myalgia and myositis Muscle spasms of neck- Primary Fibromyalgia Unspecified myalgia and myositis Recurrent major depressive disorder, in partial remission (HCC) (CMS/HCC) [facility]* Diagnosis Viral upper respiratory tract infection- Primary Acute upper respiratory infections of unspecified site Osteoporosis, unspecified osteoporosis type, unspecified pathological fracture presence Acute ear pain, right Back pain of lumbar region with sciatica Arrest of bone development or growth- Primary Age-related osteoporosis without current pathological fracture Fall in home, initial encounter Other fatigue Contusion of left knee, initial encounter Acute pain of left knee Daytime somnolence Seasonal affective disorder- Primary Other specified episodic mood disorder Acute bilateral low back pain without sciatica Myalgia Unspecified myalgia and myositis Fibromyalgia Unspecified myalgia and myositis Seasonal affective disorder Other specified episodic mood disorder Fibromyalgia Unspecified myalgia and myositis Left hand pain- Primary Pain in soft tissues of limb Emphysema, unspecified (HCC) 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 (HCC) Malignant neoplasm of unspecified site of right female breast (HCC) Panlobular emphysema (HCC) Other emphysema Chronic obstructive pulmonary disease, unspecified (HCC) Other specified chronic obstructive pulmonary disease (HCC) Malignant neoplasm of upper-inner quadrant of right female breast (HCC) Osteopenia of multiple sites Diverticulosis Diverticulosis of colon (without mention of hemorrhage) Irritable bowel syndrome with diarrhea Irritable bowel syndrome Fibromyalgia Unspecified myalgia and myositis Age-related osteoporosis without current pathological fracture Acute strain of neck muscle, initial encounter- Primary Back pain of lumbar region with sciatica Sprain of metacarpophalangeal (MCP) joint of left thumb, initial encounter Fibromyalgia Unspecified myalgia and myositis Porfirio's disease- Primary Chronic lymphocytic thyroiditis Goiter Goiter, unspecified Vitamin D deficiency documented in this encounter [facility]* Diagnosis Anemia, 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 Other vitamin B12 deficiency anemia [facility]* Diagnosis Chronic fatigue- Primary Other malaise and fatigue Anemia, unspecified type [facility]* Diagnosis Onset Date Resolution Status Admit Date Abdominal cramping acuteAugust 2024 1:12pmIrritable bowel syndrome with diarrheaacuteAugust 2024 1:12pm [facility] Work Phone: History general Narrative - Reported* Type Description Date Medical History diverticulitis Surgical HistoryhysterectomySurgical HistoryProcedure:cholecystectomySurgical HistorycholecystectomySurgical HistoryProcedure:[id number] Historybreast biopsySurgical HistoryProcedure:colonoscopy;Disease:Diverticulosis 11/16/2015Surgical HistoryProcedure:cholecystectomy;Disease:Biliary Dyskinesia 2011Surgical HistoryProcedure:EGD with biopsy;Disease:[id number] HistoryProcedure:EGD with biopsy;Disease:Gastric [id number] History Procedure:Vaginal [id number] HistoryStereotactic Breast biopsy 10/27/2018Surgical HistoryLumpectomy Dr[address] Jonn Thompson [facility] [place]/28/2018Surgical History U/S guided biopsy Left Breast10/27/2019Hospitalization Historychildbirth Realie Other Hospital course Narrative No data available for this section [facility] Discharge instructions No data available for this section [facility] Additional Instructions You refused a second troponin to be discharged home Is important you follow with your primary care doctor for further evaluation Also discussed your thyroid testing Push fluids Rest Please return here if you develop any chest pain, shortness of breath, numbness, ting, unilateral weakness, dizziness or any other concernsMer[facility] Work Phone: Progress note No data available for this section [facility]ative) Referred by: Rosa Shearer CNP [facility] Reason for referral (narrative)No reason for referral information availableC[facility] Work Phone: Summary Purpose Family History Relationship Condition Age at Onset Recorded Date/T charlie mother Diabetes mellitus Unknown Congestive heart failureUnknownfatherMalignant neoplasmUnknownsisterMalignant neoplasm of colonUnknownbrotherParkinson's diseaseUnknownfatherDeceasedUnknown Family history of mental disorderUnknownFamily history of emphysemaUnknownmother Heart diseaseUnknownMalignant neoplasmUnknownDeceasedUnknownDiabetes mellitus UnknownHypertensionUnknownsiblingHypertensionUnknownsisterDeceasedUnknown Relationship Condition Age at Onset Recorded Date/T charlie Not Specified Diabetes mellitus Unknown Congestive heart failureUnknownfatherMalignant neoplasmUnknownsisterMalignant neoplasm of colonUnknownbrotherParkinson's diseaseUnknown Relationship Condition Age at Onset Recorded Date/T charlie mother Diabetes mellitus Unknown Congestive heart failureUnknownDeceasedUnknownHeart diseaseUnknownHypertension UnknownMalignant neoplasmUnknownfatherMalignant neoplasmUnknownFamily history of emphysemaUnknownFamily history of mental disorderUnknownsisterMalignant neoplasm of colonUnknownbrotherParkinson's diseaseUnknownsiblingMalignant neoplasmUnknown Advance Directives Advance Directive Response Recorded Date/ Time Advance Directives No October 04, 2017 5:44pm Advance Directive Response Recorded Date/ Time Advance Directives No October 04, 2017 4:44pm Medications Administered Section Medication OrderMAR ActionAction DateDoseRateSite cyanocobalamin 1,000 mcg injection 1,000 mcg, INTRAMUSCULAR, ONCE, 1 dose, On Sat03/13/23 at 1230 Given03/13/2023 12:30 PM EDT1,000 mcgDeltoid, RightMedication OrderMAR Action Action DateDoseRateSite cyanocobalamin 1,000 mcg injection 1,000 mcg, INTRAMUSCULAR, ONCE, 1 dose, On Sat03/22/23 at 1430 Given03/22/2023 2:31 PM EDT1,000 mcgDeltoid, RightMedication OrderMAR Action Action DateDoseRateSite cyanocobalamin 1,000 mcg injection 1,000 mcg, INTRAMUSCULAR, ONCE, 1 dose, On Sat03/29/23 at 1430 Given03/29/2023 2:20 PM EDT1,000 mcgDeltoid, RightMedication OrderMAR Action Action DateDoseRateSite cyanocobalamin 1,000 mcg injection 1,000 mcg, INTRAMUSCULAR, ONCE, 1 dose, On Sat04/05/23 at 1000 Given04/05/2023 10:30 AM EDT1,000 mcgDeltoid, RightMedication OrderMAR Action Action DateDoseRateSite cyanocobalamin 1,000 mcg injection 1,000 mcg, INTRAMUSCULAR, ONCE, 1 dose, On Sat06/05/23 at 1530 Given06/05/2023 3:30 PM EDT1,000 mcgDeltoid, RightMedication OrderMAR Action Action DateDoseRateSite cyanocobalamin 1,000 mcg injection 1,000 mcg, INTRAMUSCULAR, ONCE, 1 dose, On Sat07/03/23 at 1400 Given07/03/2023 2:04 PM EST1,000 mcgDeltoid, Right Chief Complaint and Reason for Visit Chief Complaint Refer Yulia Princediverticulosis,ibs w diarrhea Reason for Visit Diverticulosis Irritable bowel syndrome with diarrhea Chief Complaint Refer Yulia Princediverticulosis,ibs w diarrhea Irritable Bowel SyndromeReason for VisitAbdominal cramping Diverticulosis Fatty liver Irritable bowel syndrome with diarrhea Abdominal cramping Irritable bowel syndrome with diarrhea Chief Complaint Refer Yulai Princediverticulosis,ibs w diarrhea Irritable Bowel Syndrome 1 month follow upReason for VisitAbdominal cramping Diverticulosis Fatty liver Irritable bowel syndrome with diarrhea Abdominal cramping Irritable bowel syndrome with diarrhea Abdominal cramping Bile acid malabsorption syndrome Colon polyps Diverticulosis Family hx of colon cancer Fatty liver Irritable bowel syndrome with diarrhea Chief Complaint Dizziness Chief Complaint Admit Date follow up diarrhea/abdominal pain Decemb er 2023 1:08pm R10.9 K57.90 August 13, 2024 2:21pm 1 month follow up October 19, 2024 1:00pm Reason for Visit Admit Date Abdominal cramping July 28, 2024 1 :08pm Irritable bowel syndrome with diarrhea D ecember 2023 1:08pm Abdominal cramping October 19, 2024 1:00pm Irritable bowel syndrome with diarrhea F ebruary 2024 1:00pm Chief Complaint Admit Date 6 month follow up/Abdominal Pain April 19, 2025 1:12pm Reason for Visit Admit Date Abdominal cramping April 19, 2025 1: 12pm Irritable bowel syndrome with diarrhea A ugust 2024 1:12pm Additional Source Comments INFORMATION SOURCE (unrecogn ized section and content) DATE CREATED AUTHOR 10/09/2021 [facility] DATE CREATED AUTHOR AUTHOR'S RYAN ROLON 10/17/2021 [facility] [employer] DATE CREATED AUTHOR AUTHOR'S ORGANIZ ATION 12/09/2022 [facility] DATE CREATED AUTHOR AUTHOR'S ORGANIZ ATION 01/23/2024 [facility] DATE CREATED AUTHOR AUTHOR'S ORGANIZ ATION 04/07/2024 [facility] DATE CREATED AUTHOR AUTHOR'S ORGANIZ ATION 04/08/2024 [facility] DATE CREATED AUTHOR AUTHOR'S ORGANIZ ATION 08/17/2024 [facility] DATE CREATED AUTHOR AUTHOR'S ORGANIZ ATION 02/13/2025 [facility] DATE CREATED AUTHOR AUTHOR'S ORGANIZ ATION 06/21/2025 [facility] Care Team (unrecognized sect ion and content) Team MemberRelationshipSpecialtyStart DateEnd Date Nurys Boggs [address] [place] [address] PCP - [facility]Ke[facility] Centerly Medicine11/05/18 Nurys Boggs [address] [place] [address] [facility]11/05/18Team MemberRelationshipSpecialtyStart DateEnd Date Nurys Boggs [address] [place] [address] PCP - GeneralFamily Medicine11/05/18 Nurys Boggs [address] [place] [address] ReferringFamily Medicine11/05/18Team MemberRelationshipSpecialtyStart DateEnd Date Nurys Boggs [address] [place] [address] PCP - GeneralFamily Medicine11/05/18 Nurys Boggs [address] [place] [address] [facility]11/05/18Team MemberRelationshipSpecialtyStart DateEnd Date Nurys Boggs [address] [place] [address] PCP - [facility]11/05/18 Nurys Boggs [address] [place] [address] [facility]erring[facility]11/05/18Team MemberRelationshipSpecialtyStart DateEnd Date Nurys Boggs [address] [place] [address] PCP - [facility]11/05/18 Nurys Boggs [address] [place] [address] [facility]erring[facility]11/05/18Team MemberRelationshipSpecialtyStart DateEnd Date Nurys Boggs MD [address] [place] [address] PCP - [facility]11/05/18 Nurys Boggs MD [address] [place] [address] [facility]erring[facility]11/05/18Team MemberRelationshipSpecialtyStart DateEnd Date Nurys Boggs MD [address] [place] [address] PCP - [facility]11/05/18 Nurys Boggs MD [address] [place] [address] [facility]11/05/18Team MemberRelationshipSpecialtyStart DateEnd Date Nurys Boggs MD [address] [place] [address] PCP - [facility]11/05/18 Nurys Boggs MD [address] [place] [address] [facility]11/05/18Team MemberRelationshipSpecialtyStart DateEnd Date Nurys Boggs MD [address] [place] [address] PCP - [facility]11/05/18 Nurys Boggs MD [address] [place] [address] [facility]11/05/18Team MemberRelationshipSpecialtyStart DateEnd Date Nuyrs Boggs MD [address] [place] [address] PCP - [facility]11/05/18 Nurys Boggs MD [address] [place] [address] [facility]11/05/18Team MemberRelationshipSpecialtyStart DateEnd Date Nurys Boggs MD [address] [place] [address] PCP - GeneralKe[facility] Centerly Medicine11/05/18 Nurys Boggs MD [address] [place] [address] [facility]erring[facility]11/05/18Team MemberRelationshipSpecialtyStart DateEnd Date Nurys Boggs MD [address] [place] [address] PCP - [facility]11/05/18 Nurys Boggs MD [address] [place] [address] [facility]erring[facility]11/05/18Team MemberRelationshipSpecialtyStart DateEnd Date Nurys Boggs MD [address] [place] [address] PCP - [facility]11/05/18 Nurys Boggs MD [address] [place] [address] [facility]erring[facility]11/05/18Team MemberRelationshipSpecialtyStart DateEnd Date Nurys Boggs MD [address] [place] [address] PCP - [facility]11/05/18 Nurys Boggs MD [address] [place] [address] [facility]erring[facility]11/05/18Team MemberRelationshipSpecialtyStart DateEnd Date Nurys Boggs MD [address] [facility] [address] [place] [address] PCP - [facility]11/05/18 Nurys Boggs MD [address] [facility] [address] [place] [address] [facility]11/05/18 Team Status: Active Member Role Status Dates Nurys Boggs MD Primary Care Provider Active Team Status: Inactive Member Role Status Dates Nurys Boggs MD Primary Care Provider Active S tart: March 12, 2024 End: March 12Veronica Mccauley ProviderActiveStart: March 12, 2024 End: March 12, 2024Team MemberRelationshipSpecialtyStart DateEnd Date Nurys Boggs MD [address] [facility] [address] [place] [address] PCP - [facility]11/05/18 Nurys Boggs MD [address] [facility] [place] [address] [facility]11/05/18 Team Status: Inactive Member Role Status Dates Nurys Boggs MD Primary Care Provider Active S tart: May 06, 2024 End: May 06Abner Hernandez ProviderActiveStart: May 06, 2024 End: May 06, 2024Team MemberRelationshipSpecialtyStart DateEnd Date Nurys Boggs MD [address] [facility] [address] [place] [address] PCP - [facility]11/05/18 Nurys Boggs MD [address] [facility] [address] [place] [address] [facility]11/05/18Team MemberRelationshipSpecialtyStart DateEnd Date Nurys Boggs MD [address] [place] [address] PCP - [facility]01/17/23 Nurys Boggs MD [address] [place] [address] PCP - [facility]01/28/23 Emmie Dela Cruz, YAA Registered Nurse[facility]08/05/23 Team Status: Inactive Member Role Status Dates Nurys Boggs MD Primary Care Provider Active S tart: June 09, 2024 End: June 09yan Abner Salazar ProviderActiveStart: June 09, 2024 End: June 09, 2024Team MemberRelationshipSpecialtyStart DateEnd Date Nurys Boggs MD [address] [place] [address] [facility] - [facility]01/17/23 Nurys Boggs MD [address] [place] [address] PCP - [facility]01/28/23 Emmie Dela Cruz, YAA Reg[facility]08/05/23Team MemberRelationshipSpecialtyStart DateEnd Date Nurys Boggs MD [address] [place] [address] PCP [facility]01/17/23 Nurys Boggs MD [address] [place] [address] PCP - GeneralFamily Medicine01/28/23 Emmie Dela Cruz RN Registered Nurse[facility]08/05/23Team MemberRelationshipSpecialtyStart DateEnd Date Nurys Boggs MD [address] [place] [address] PCP - [facility]01/17/23 Nurys Boggs MD [address] [place] [address] PCP - Generalmily Medicine01/28/23 Emmie Dela Cruz RN Reg[facility]08/05/23Team MemberRelationshipSpecialtyStart DateEnd Date Nurys Boggs MD [address] [place] [address] PCP - [facility]01/17/23 Nurys Boggs MD [address] [place] [address] PCP - [facility] Medicine01/28/23 Emmie Dela Cruz RN [facility]08/05/23Team MemberRelationshipSpecialtyStart DateEnd Date Nurys Boggs MD [address] [place] [address] PCP - [facility]01/17/23 Nurys Boggs MD [address] [place] [address] PCP - GeneralFamily Medicine01/28/23 Emmie Dela Cruz RN [facility]08/05/23 Team Status: Inactive Member Role Status Dates Nurys Boggs MD Primary Care Provider Active Barry Aguirre ProviderActiveTeam MemberRelationshipSpecialty Start DateEnd Date Nurys Boggs MD [address] [place] [address] PCP - [facility]01/17/23 Nurys Boggs MD [address] [place] [address] PCP - [facility] Medicine01/28/23 Emmie Dela Cruz, RN Reg[facility]08/05/23Team MemberRelationshipSpecialtyStart DateEnd Date Nurys Boggs MD [address] [place] [address] PCP - [facility]01/17/23 Nurys Boggs MD [address] [place] [address] PCP - [facility]01/28/23 Emmie Dela Cruz, YAA [facility]08/05/23Team MemberRelationshipSpecialtyStart DateEnd Date Nurys Boggs MD [address] [place] [address] PCP - [facility]11/05/18 Nurys Boggs MD [address] [place] [address] [facility]erring[facility]11/05/18Team MemberRelationshipSpecialtyStart DateEnd Date Nurys Boggs MD [address] [place] [address] PCP - [facility]11/05/18 Nurys Boggs MD [address] [place] [address] [facility]11/05/18Team MemberRelationshipSpecialtyStart DateEnd Date Nurys Boggs MD [address] [place] [address] PCP - [facility]01/17/23 Nurys Boggs MD [address] [place] [address] PCP - [facility]01/28/23 Emmie Dela Cruz, RN [facility]08/05/23 Team Status: Inactive Member Role Status Dates Nurys Boggs MD Primary Care Provider Active S tart: July 28, 2024 End: July 28Abner Hernandez ProviderActiveStart: July 28, 2024 End: July 28, 2024 Team Status: Inactive Member Role Status Dates Nurys Boggs MD Primary Care Provider Active S tart: August 13, 2024 End: August 13Abner Hernandez ProviderActiveStart: August 13, 2024 End: August 13, 2024 Team Status: Inactive Member Role Status Dates Nurys Boggs MD Primary Care Provider Active S tart: October 19, 2024 End: October 19, 2024Abner Meadows ProviderActiveStart: October 19, 2024 End: October 19, 2024Team MemberRelationshipSpecialtyStart DateEnd Date Nurys Boggs MD [address] [place] [address] [facility]/05/18 Nurys Boggs MD [address] [place] [address] [facility]11/05/18Team MemberRelationshipSpecialtyStart DateEnd Date Nurys Boggs MD [address] [place] [address] PCP - [facility]01/17/23 Nurys Boggs MD [address] [facility] [address] [place] [address] PCP - [facility] Medicine01/28/23Team MemberRelationshipSpecialtyStart DateEnd Date Nurys Boggs MD [address] [facility] [address] [place] [address] PCP - [facility]01/17/23 Nurys Boggs MD [address] [facility] [address] [place] [address] PCP - [facility] Medicine01/28/23Team MemberRelationshipSpecialtyStart DateEnd Date Nurys Boggs MD [address] [place] [address] PCP - [facility]01/17/23 Nurys Boggs MD [address] [place] [address] PCP - [facility] Medicine01/28/23Team MemberRelationshipSpecialtyStart DateEnd Date Nurys Boggs MD [address] [place] [address] PCP - [facility]01/17/23 Nurys Boggs MD [address] [place] [address] PCP - [facility] Medicine01/28/23Team MemberRelationshipSpecialtyStart DateEnd Date Nurys Boggs MD [address] [place] [address] PCP - [facility]01/17/23 Nurys Boggs MD [address] [place] [address] PCP - Generalmi Medicine01/28/23Team MemberRelationshipSpecialtyStart DateEnd Date Nurys Boggs MD [address] [place] [address] PCP - [facility]01/17/23 Nurys Boggs MD [address] [place] [address] [facility] - [facility]01/28/23Team MemberRelationshipSpecialtyStart DateEnd Date Nurys Boggs MD [address] [place] [address] PCP - [facility]01/17/23 Nurys Boggs MD [address] [place] [address] [facility] - [facility]01/28/23 Team Status: Inactive Member Role Status Dates Nurys Boggs MD Primary Care Provider Active S tart: April 19, 2025 End: April 19, 2025Abner Meadows ProviderActiveStart: April 19, 2025 End: April 19, 2025Team MemberRelationshipSpecialtyStart DateEnd Date Nurys Boggs MD [address] [place] [address] PCP - [facility]01/17/23 Nurys Boggs MD [address] [place] [address] PCP - [facility]01/28/23 Emmie Dela Cruz RN [address] [facility] [address] [place] [address] Registered NursePutnam General HospitalTe MemberRelationshipSpecialty Start DateEnd Date Nurys Boggs MD [address] [place] [address] [facility] - [facility]01/17/23 Nurys Boggs MD [address] [place] [address] PCP - [facility]01/28/23 Emmie Dela Cruz RN [address] [facility] [address] [place] [address] Registered NursePutnam General HospitalTe MemberRelationshipSpecialty Start DateEnd Date Nurys Boggs MD [address] [place] [address] PCP - [facility]01/17/23 Nurys Boggs MD [address] [place] [address] PCP - GeneralFamily Medicine01/28/23 Emmie Dela Cruz, RN [address] [place] [address] Registered NurseFamily Oldouowf17/11// REASON FOR VISIT (unrecogniz ed section and content) [id number] DeficiencyNew patient consultDCISReasonCommentsRecords Faxed To Digestive DiseaseReasonCommentsAnemiaReasonCommentsNutrition Assessment ReasonCommentsSyncopeReasonCommentsAnemiaFollow upReasonCommentsIron results ReasonCommentslab results from [facility]. [facility] centerReasonCommentsseasonal affective disorderStarted cymbaltaReasonCommentswants to discuss CT and prolia inj.Reason CommentsResultsReasonCommentsOsteoporosisThis is a buy and billReasonComments Neck PainReasonCommentsThyroid ProblemFollow-upLAB Source Comments (unrecognize d section and content) In the event this informatio n is protected by the Federal Confidentiality of Alcohol and Drug Abuse Patient Records regulations: The Federal rules restrict any use of the information to criminally investigate or prosecute any alcohol or drug abuse patient.[facility] CenterIn the event this information is protected by the Federal Confidentiality of Alcohol and Drug Abuse Patient Records regulations: The Federal rules restrict any use of the information to criminally investigate or prosecute any alcohol or drug abuse patient.[facility] CenterIn the event this information is protected by the Federal Confidentiality of Alcohol and Drug Abuse Patient Records regulations: The Federal rules restrict any use of the information to criminally investigate or prosecute any alcohol or drug abuse patient.[facility] CenterIn the event this information is protected by the Federal Confidentiality of Alcohol and Drug Abuse Patient Records regulations: The Federal rules restrict any use of the information to criminally investigate or prosecute any alcohol or drug abuse patient.[facility] CenterIn the event this information is protected by the Federal Confidentiality of Alcohol and Drug Abuse Patient Records regulations: The Federal rules restrict any use of the information to criminally investigate or prosecute any alcohol or drug abuse patient.[facility] CenterIn the event this information is protected by the Federal Confidentiality of Alcohol and Drug Abuse Patient Records regulations: The Federal rules restrict any use of the information to criminally investigate or prosecute any alcohol or drug abuse patient.[facility] CenterIn the event this information is protected by the Federal Confidentiality of Alcohol and Drug Abuse Patient Records regulations: The Federal rules restrict any use of the information to criminally investigate or prosecute any alcohol or drug abuse patient.[facility] CenterIn the event this information is protected by the Federal Confidentiality of Alcohol and Drug Abuse Patient Records regulations: The Federal rules restrict any use of the information to criminally investigate or prosecute any alcohol or drug abuse patient.[facility] CenterIn the event this information is protected by the Federal Confidentiality of Alcohol and Drug Abuse Patient Records regulations: The Federal rules restrict any use of the information to criminally investigate or prosecute any alcohol or drug abuse patient.[facility] CenterIn the event this information is protected by the Federal Confidentiality of Alcohol and Drug Abuse Patient Records regulations: The Federal rules restrict any use of the information to criminally investigate or prosecute any alcohol or drug abuse patient.[facility] CenterIn the event this information is protected by the Federal Confidentiality of Alcohol and Drug Abuse Patient Records regulations: The Federal rules restrict any use of the information to criminally investigate or prosecute any alcohol or drug abuse patient.[facility] CenterIn the event this information is protected by the Federal Confidentiality of Alcohol and Drug Abuse Patient Records regulations: The Federal rules restrict any use of the information to criminally investigate or prosecute any alcohol or drug abuse patient.[facility] CenterIn the event this information is protected by the Federal Confidentiality of Alcohol and Drug Abuse Patient Records regulations: The Federal rules restrict any use of the information to criminally investigate or prosecute any alcohol or drug abuse patient.[facility] CenterIn the event this information is protected by the Federal Confidentiality of Alcohol and Drug Abuse Patient Records regulations: The Federal rules restrict any use of the information to criminally investigate or prosecute any alcohol or drug abuse patient.[facility] CenterIn the event this information is protected by the Federal Confidentiality of Alcohol and Drug Abuse Patient Records regulations: The Federal rules restrict any use of the information to criminally investigate or prosecute any alcohol or drug abuse patient.[facility] CenterIn the event this information is protected by the Federal Confidentiality of Alcohol and Drug Abuse Patient Records regulations: The Federal rules restrict any use of the information to criminally investigate or prosecute any alcohol or drug abuse patient.[facility] CenterIn the event this information is protected by the Federal Confidentiality of Alcohol and Drug Abuse Patient Records regulations: The Federal rules restrict any use of the information to criminally investigate or prosecute any alcohol or drug abuse patient.[facility] CenterIn the event this information is protected by the Federal Confidentiality of Alcohol and Drug Abuse Patient Records regulations: The Federal rules restrict any use of the information to criminally investigate or prosecute any alcohol or drug abuse patient.[facility] CenterIn the event this information is protected by the Federal Confidentiality of Alcohol and Drug Abuse Patient Records regulations: The Federal rules restrict any use of the information to criminally investigate or prosecute any alcohol or drug abuse patient.[facility] CenterIn the event this information is protected by the Federal Confidentiality of Alcohol and Drug Abuse Patient Records regulations: The Federal rules restrict any use of the information to criminally investigate or prosecute any alcohol or drug abuse patient.[facility] CenterIn the event this information is protected by the Federal Confidentiality of Alcohol and Drug Abuse Patient Records regulations: The Federal rules restrict any use of the information to criminally investigate or prosecute any alcohol or drug abuse patient.[facility] CenterIn the event this information is protected by the Federal Confidentiality of Alcohol and Drug Abuse Patient Records regulations: The Federal rules restrict any use of the information to criminally investigate or prosecute any alcohol or drug abuse patient.[facility] CenterIn the event this information is protected by the Federal Confidentiality of Alcohol and Drug Abuse Patient Records regulations: The Federal rules restrict any use of the information to criminally investigate or prosecute any alcohol or drug abuse patient.[facility] CenterIn the event this information is protected by the Federal Confidentiality of Alcohol and Drug Abuse Patient Records regulations: The Federal rules restrict any use of the information to criminally investigate or prosecute any alcohol or drug abuse patient.[facility] CenterIn the event this information is protected by the Federal Confidentiality of Alcohol and Drug Abuse Patient Records regulations: The Federal rules restrict any use of the information to criminally investigate or prosecute any alcohol or drug abuse patient.[facility] CenterIn the event this information is protected by the Federal Confidentiality of Alcohol and Drug Abuse Patient Records regulations: The Federal rules restrict any use of the information to criminally investigate or prosecute any alcohol or drug abuse patient.[facility] CenterIn the event this information is protected by the Federal Confidentiality of Alcohol and Drug Abuse Patient Records regulations: The Federal rules restrict any use of the information to criminally investigate or prosecute any alcohol or drug abuse patient.[facility] CenterIn the event this information is protected by the Federal Confidentiality of Alcohol and Drug Abuse Patient Records regulations: The Federal rules restrict any use of the information to criminally investigate or prosecute any alcohol or drug abuse patient.[facility] CenterIn the event this information is protected by the Federal Confidentiality of Alcohol and Drug Abuse Patient Records regulations: The Federal rules restrict any use of the information to criminally investigate or prosecute any alcohol or drug abuse patient.[facility] CenterIn the event this information is protected by the Federal Confidentiality of Alcohol and Drug Abuse Patient Records regulations: The Federal rules restrict any use of the information to criminally investigate or prosecute any alcohol or drug abuse patient.[facility] CenterIn the event this information is protected by the Federal Confidentiality of Alcohol and Drug Abuse Patient Records regulations: The Federal rules restrict any use of the information to criminally investigate or prosecute any alcohol or drug abuse patient.[facility] CenterIn the event this information is protected by the Federal Confidentiality of Alcohol and Drug Abuse Patient Records regulations: The Federal rules restrict any use of the information to criminally investigate or prosecute any alcohol or drug abuse patient.[facility] CenterIn the event this information is protected by the Federal Confidentiality of Alcohol and Drug Abuse Patient Records regulations: The Federal rules restrict any use of the information to criminally investigate or prosecute any alcohol or drug abuse patient.[facility] CenterIn the event this information is protected by the Federal Confidentiality of Alcohol and Drug Abuse Patient Records regulations: The Federal rules restrict any use of the information to criminally investigate or prosecute any alcohol or drug abuse patient.[facility] CenterIn the event this information is protected by the Federal Confidentiality of Alcohol and Drug Abuse Patient Records regulations: The Federal rules restrict any use of the information to criminally investigate or prosecute any alcohol or drug abuse patient.[facility] CenterIn the event this information is protected by the Federal Confidentiality of Alcohol and Drug Abuse Patient Records regulations: The Federal rules restrict any use of the information to criminally investigate or prosecute any alcohol or drug abuse patient.[facility] CenterIn the event this information is protected by the Federal Confidentiality of Alcohol and Drug Abuse Patient Records regulations: The Federal rules restrict any use of the information to criminally investigate or prosecute any alcohol or drug abuse patient.[facility] CenterIn the event this information is protected by the Federal Confidentiality of Alcohol and Drug Abuse Patient Records regulations: The Federal rules restrict any use of the information to criminally investigate or prosecute any alcohol or drug abuse patient.[facility] Inactive Administered Medications - up to 3 most recent administrations Administered Medications (un recognized section and content) Medication OrderMAR ActionAction DateDoseRateSite cyanocobalamin 1,000 mcg injection 1,000 mcg, INTRAMUSCULAR, ONCE, 1 dose, On Sat10/10/23 at 1400 Given10/10/2023 2:02 PM EST1,000 mcgDeltoid, RightMedication OrderMAR Action Action DateDoseRateSite cyanocobalamin 1,000 mcg injection 1,000 mcg, INTRAMUSCULAR, ONCE, 1 dose, On Sat11/07/23 at 1400 Given11/07/2023 2:00 PM EDT1,000 mcgDeltoid, RightMedication OrderMAR Action Action DateDoseRateSite cyanocobalamin 1,000 mcg injection 1,000 mcg, INTRAMUSCULAR, ONCE, 1 dose, On Sat12/05/23 at 1430 Given12/05/2023 2:30 PM EDT1,000 mcgDeltoid, Right Goals (unrecognized section and content) Goals [...] BE BASED ON THE PRIMARY CLINICAL RECORDS. [facility] [employer] [facility]. provides no warranty or guarantee of the accuracy or completeness of information in this document.
== END 2025-06-24 13:00 | disposition home or self-care (01) ==
LOC: MAMMO 12:59
PROVIDERS: PCP Physician Assistant; Visit Provider Family Medicine
DX: Z12.31 Encounter for screening mammogram for malignant neoplasm of breast (principal); Z80.3 Family history of malignant neoplasm of breast; Z80.0 Family history of malignant neoplasm of digestive organs
CPT/HCPCS: 77063; 77067